=== PATIENT | female | born 1945 | race Caucasian/White ===

== ENCOUNTER 2022-01-13 07:38 | Outpatient (CLI) | payer MEDICARE, OTHER, SELFPAY ==
--- NOTE | 2022-01-13 08:00 | CRLHL7_ITS ---
For Patients: As a result of the Century Cures Act, medical imaging exams and procedure reports are released immediately into your electronic medical record. You may view this report before your referring provider. If you have questions, please contact your health care provider. INDICATION: Lymphadenopathy TECHNIQUE: CT of the neck soft tissues performed with IV contrast. Contrast: 69 cc Isovue 370. COMPARISON: None available at this institution. FINDINGS: There is an enlarged lymph node within the left level 5 measuring up to 0.9 cm in short axis diameter (series 3, image 47). There is an additional prominent lymph node identified just inferior to this. Additionally there is an abnormal rounded appearing lymph node right level 5 which measures up to 0.6 cm in short axis diameter (series 3, image 43). The nasopharynx, oropharynx and hypopharynx appear unremarkable. The supraglottic, glottic and infraglottic spaces are preserved. Portions of the oral cavity are obscured by dental amalgam artifact. No discrete hyperenhancing lesion identified. The parotid and submandibular glands appear unremarkable. Subcentimeter right thyroid nodule. Scattered atherosclerotic disease. The visualized intracranial components appear grossly intact. Visualized orbits and contents appear unremarkable. Mild paranasal sinus mucosal disease. Lung apices are clear. Mild spondylosis of the cervical spine. IMPRESSION: 1. Suspicious-appearing enlarged left level 5 lymph node. Additional suspicious right level 5 lymph node identified. Further evaluation with ultrasound assessment and tissue sampling is recommended. 2. No discrete hyperenhancing lesion identified within the neck mucosal spaces to suggest a site for primary malignancy. Please note that all CT scans at this facility use dose modulation, iterative reconstruction, and/or weight-based dosing when appropriate to reduce radiation dose to as low as reasonably achievable. Dictated by Andrew Saxena MD @ 01/14/2022 8:57:30 AM (Electronically Signed)
[2022-01-13 08:11] LABS: Creatinine* 0.6 mg/dL (0.5-1.5); Estimated Glomerular Filt Rate 93 ml/min
== END 2022-01-13 07:39 | disposition home or self-care (01) ==
LOC: CT 07:40
PROVIDERS: PCP Family Medicine; Visit Provider Family Medicine
DX: R59.1 Generalized enlarged lymph nodes (principal); C44.40 Unspecified malignant neoplasm of skin of scalp and neck
CPT/HCPCS: 36415; 70491; 82565; 87070; 87205; Q9967

== ENCOUNTER 2022-01-17 10:21 | Emergency (ER) | payer MEDICARE, OTHER, SELFPAY ==
[2022-01-17 10:56] VITALS: BP 126/77; PULSE 88; RESP 18; TEMP 36.6; O2SAT 98; BMI 23.5
--- NOTE | 2022-01-17 11:59 | ED.GENADULT ---
HPI - General Adult General Time Seen by Provider: 12:00 Date Seen: 01/17/22 Chief complaint: Weakness Stated complaint: High BP, tight/weak right leg, tingling in limbs Time Seen by Provider: 01/17/22 11:55 Source: patient and RN notes reviewed Mode of arrival: ambulatory Limitations: no limitations History of Present Illness HPI narrative: Patient is a 76-year-old female coming into the ER with concern of right medial leg pain, elevated blood pressure and pulse overnight. She also had reflux last night and states she felt like there is a lump in her throat. 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 She states the steam box tender put her on Keflex thinking there might be a overwhelming infection as all of her lymph nodes are swollen. She had a biopsy last week of a lymph node of her left neck. She had a head neck CT per report done recently, I think she may have said last week. She is not short of breath at this time, no palpitations. She actually had fallen asleep and was napping when I came into the room. She states she only got about 3 hours of sleep last night, does admit she thinks some of that was anxiety. No abdominal pain now. She admits she was concerned maybe about a blood clot in the leg. Her discomfort involves all of her lymph nodes feeling swollen per report. She states her liver enzymes were maybe mildly up. She states she had blood work last week. Related Data Home Medications Medication Instructions Recorded Confirmed rosuvastatin 10 mg tablet 10 mg PO QDAY 12/20/21 01/17/22 cholecalciferol (vitamin D3) 25 1,000 unit PO DAILY 12/22/21 01/17/22 mcg (1,000 unit) tablet coenzyme Q10 100 mg capsule 100 mg PO DAILY 12/22/21 01/17/22 cyanocobalamin (vitamin B-12) 1,000 mcg PO DAILY 12/22/21 01/17/22 1,000 mcg tablet nystatin 100,000 unit/gram topical 1 topical .2-3X/Day 12/22/21 01/13/22 cream Previous Rx's Medication Instructions Recorded cephalexin 500 mg capsule 500 mg PO BID #20 caps 01/13/22 Allergies Allergy/AdvReac Type Severity Reaction Status Date / Time Penicillins Allergy Unknown Verified 01/17/22 11:05 Sulfa (Sulfonamide Allergy Unknown Verified 01/17/22 11:05 Antibiotics) [facility] Medical History (Updated 01/17/22 @ 15:04 by Arlette Santiago MD) History of vitamin D deficiency Infection Microscopic colitis (2018) Nonalcoholic fatty liver disease (2019) Surgical History (Updated 12/21/21 @ 13:03 by Stephanie Ly MD) History of colonoscopy (01/18/18) History of dental surgery (2017) History of hysterectomy (2016) History of knee surgery (2018) History of tonsillectomy (1967) Family History (Updated 12/21/21 @ 13:04 by Stephanie Ly MD) Paternal Grandmother Heart disease Diabetes Sister Multiple sclerosis Alzheimers disease Mother Alzheimers disease Maternal Grandmother Alzheimers disease Family/Other Lung cancer FH: testicular cancer Social History (Updated 12/21/21 @ 13:04 by Stephanie Ly MD) Narrative: , retired, 3 kids, nonsmoker does not drink alcohol, exercises 5-6 time per week, 30 minutes Smoking Status: Never smoker Exam Const: Vital Signs, click to edit/add: Vital Signs - 24 hr 01/17/22 10:56 Temperature 97.9 F Pulse Rate [Right Pulse Oximeter] 88 Respiratory Rate 18 Blood Pressure [Ri ght Upper Arm] 126/77 Pulse Oximetry 98 Oxygen Delivery Me thod Room Air Documenting provider has reviewed patient's vital signs: yes Common normals: no apparent distress, average body habitus, oriented x3, no limitations, healthy appearing, alert and well nourished General appearance: cooperative, comfortable, well kempt and well developed HENMT: Common normals: normocephalic, head/scalp atraumatic (But has a larger ulcerated non bleeding lesion on the top of her scalp), external nose normal, nasal mucous membranes and turbinates normal, moist oral mucous membranes, oropharynx normal, dentition normal and gingiva normal Head and scalp: normocephalic and atraumatic (But has a larger ulcerated non bleeding lesion on the top of her scalp) Nose: external nose normal and nasal mucous membranes and turbinates normal Eye: Common normals: PERRL, EOMs intact bilaterally, conjunctivae normal and no scleral icterus Conjunctiva: conjunctiva(e) normal Pupil: PERRL Neck & C-Spine: Common normals: full ROM, supple, no meningeal signs, no JVD and thyroid normal Thyroid: thyroid normal Other: Incision at the base of the left neck with 2 stitches, well healing, no concern of infection. Do feel cervical lymph node on the other side that is mobile while, small, nontender. Lymph: Other: Can palpate groin lymph nodes bilaterally. Chest: Common normals: inspection of chest normal and palpation of chest normal Resp: Common normals: normal respiratory effort, no retractions, no use of accessory muscles and clear to auscultation bilaterally Auscultation: clear to auscultation bilaterally Cardio: Common normals: no JVD, regular rate, regular rhythm, S1 normal heart sound, S2 normal heart sound, no gallops, no clicks and no murmurs Rate: regular rate Rhythm: regular rhythm Heart sounds: S1 normal and S2 normal GI: Common normals: Normal to inspection, nondistended, normoactive bowel sounds present, soft to palpation, non-tender, no hepatosplenomegaly and no masses Palpation: soft and no hepatosplenomegaly Extremity: Other: No lower extremity edema noted. She complains of some discomfort in the right medial upper thigh without any palpable abnormality. She states it just feels mckeon to her. Neuro: Common normals: oriented x3 Sensorium/orientation: alert Meningeal signs: no meningeal signs Speech: speech normal Gait (neuro): normal gait Psych: Appearance: well kempt Course Course Hospital Course: Will check full complement of labs. Am ordering a Doppler of her right lower extremity. She understands that she may need imaging of her chest to rule out thromboembolic disease. Also consider infectious, cardiac issues with this patient as well. Right now she is hemodynamically stable and comfortable. Reevaluation(s) Reevaluation #1: Reviewed with patient her normal lab workup. Did review that her AST ALT are just very slightly mildly elevated and is not something that I would be overtly concerned about at this point. I do think she can take some low-dose Tylenol should she need it. I was able to give her her ultrasound report from the posterior neck and that looks like it is an enlarged lymph node. The ultrasound from her leg is not showing any DVT and with the normal D-dimer, do not think we need to pursue further imaging. She will need to continue her workup outpatient, she tells me she is scheduled to go to [facility] on of this week. Time: 15:01 Vital Signs Vital signs: Initial Vital Signs Temperature 97.9 F 01/17/22 10:56 Temperature Source Temporal Artery Scan 01/17/22 10:56 Pulse Rate 88 01/17/22 10:56 Respiratory Rate 18 01/17/22 10:56 Blood Pressure 126/77 01/17/22 10:56 Blood Pressure Mean 93 01/17/22 10:56 Blood Pressure Position Sitting 01/17/22 10:56 Pulse Oximetry 98 01/17/22 10:56 Oxygen Delivery Method 01/17/22 10:56 Vital Signs Temperature 97.9 F 01/17/22 10:56 Pulse Rate 88 01/17/22 10:56 Respiratory Rate 18 01/17/22 10:56 Blood Pressure 126/77 01/17/22 10:56 Pulse Oximetry 98 01/17/22 10:56 Oxygen Delivery Method 01/17/22 10:56 Temperature 97.9 F 01/17/22 10:56 Pulse Rate 88 01/17/22 10:56 Respiratory Rate 18 01/17/22 10:56 Blood Pressure 126/77 01/17/22 10:56 Pulse Oximetry 98 01/17/22 10:56 Oxygen Delivery Method 01/17/22 10:56 Medical Decision Making Lab Data Lab results reviewed: Yes I reviewed the patient's lab results Labs: Lab Results 01/17/22 01/17/22 01/17/22 Range/Units 12:30 12:30 12:30 WBC 5.93 (4.50-11.00) K/uL RBC 4.36 (4.00-5.20) m/uL Hgb 12.9 (12.0-16.0) gm/dL Hct 39.0 (33.0-51.0) % MCV 89 (80-100) fL MCH 30 (26-34) pg MCHC 33 (32-36) gm/dL RDW Coeff of Marly 11.9 (11.5-15.5) % Plt Count 266 (140-440) K/uL Neut % (Auto) 64.8 (42.0-72.0) % Lymph % (Auto) 25.8 (20-44) % [place] % (Auto) 7.1 (0.0-11.0) % Eos % (Auto) 2.0 (0.0-7.0) % Baso % (Auto) 0.3 (0.0-3.0) % Neut # (Auto) 3.84 (1.7-7.0) K/uL Lymph # (Auto) 1.53 (0.90-2.90) K/uL [place] # (Auto) 0.40 (0.00-0.90) K/UL Eos # (Auto) 0.12 (0.00-0.50) K/uL Baso # (Auto) 0.02 (0.00-0.30) K/uL Abs Immat Gran (auto) 0.00 (0.00-0.30) K/uL Imm/Tot Granulo (auto) 0.0 % D-Dimer Quant (PE/DVT) 0.27 (0.00-0.50) ug/ml Sodium 138 (135-149) mmol/L Potassium 4.4 (3.6-5.1) mmol/L Chloride 103 (96-114) mmol/L Carbon Dioxide 26 (20-32) mmol/L BUN 14 (7-30) mg/dL Creatinine 0.5 (0.5-1.5) mg/dL Estimated Creat Clear 41.33 Estimated GFR 97 ml/min Glucose 103 (60-115) mg/dL Lactate (0.5-1.9) mmol/L Calcium 9.4 (8.4-10.6) mg/dL Total Bilirubin 0.4 (0.1-1.5) mg/dL AST 43 H (12-35) U/L ALT 38 H (4-35) U/L Alkaline Phosphatase 109 (40-150) U/L C-Reactive Protein < 0.5 L (0.5-1.0) mg/dL NT-Pro-B Natriuret Pep 44 (0-450) PG/mL Total Protein 7.4 (6.0-8.3) g/dL Albumin 4.5 (3.3-5.0) g/dL POC Troponin I (0.01-0.04) ng/ml 01/17/22 01/17/22 Range/Units 12:30 12:30 WBC (4.50-11.00) K/uL RBC (4.00-5.20) m/uL Hgb (12.0-16.0) gm/dL Hct (33.0-51.0) % MCV (80-100) fL MCH (26-34) pg MCHC (32-36) gm/dL RDW Coeff of Marly (11.5-15.5) % Plt Count (140-440) K/uL Neut % (Auto) (42.0-72.0) % Lymph % (Auto) (20-44) % [place] % (Auto) (0.0-11.0) % Eos % (Auto) (0.0-7.0) % Baso % (Auto) (0.0-3.0) % Neut # (Auto) (1.7-7.0) K/uL Lymph # (Auto) (0.90-2.90) K/uL [place] # (Auto) (0.00-0.90) K/UL Eos # (Auto) (0.00-0.50) K/uL Baso # (Auto) (0.00-0.30) K/uL Abs Immat Gran (auto) (0.00-0.30) K/uL Imm/Tot Granulo (auto) % D-Dimer Quant (PE/DVT) (0.00-0.50) ug/ml Sodium (135-149) mmol/L Potassium (3.6-5.1) mmol/L Chloride (96-114) mmol/L Carbon Dioxide (20-32) mmol/L BUN (7-30) mg/dL Creatinine (0.5-1.5) mg/dL Estimated Creat Clear Estimated GFR ml/min Glucose (60-115) mg/dL Lactate 1.4 (0.5-1.9) mmol/L Calcium (8.4-10.6) mg/dL Total Bilirubin (0.1-1.5) mg/dL AST (12-35) U/L ALT (4-35) U/L Alkaline Phosphatase (40-150) U/L C-Reactive Protein (0.5-1.0) mg/dL NT-Pro-B Natriuret Pep (0-450) PG/mL Total Protein (6.0-8.3) g/dL Albumin (3.3-5.0) g/dL POC Troponin I 0.00 L (0.01-0.04) ng/ml ECG Data Attestation: I personally reviewed and interpreted this ECG as follows: (Sinus rhythm, right bundle branch block. 60 beats per minute. QT corrected 450 milliseconds.) Critical Care Time Critical Care Time Critical Care Time: No Discharge Plan Discharge Clinical Impression: Right thigh pain, Acid reflux Condition: Stable Instructions: GERD (Gastroesophageal Reflux Disease) (ED) Additional Instructions: Follow handout for reflux disease, try dietary management, lifestyle management. If this is not adequate, your primary care provider can dispense medications specifically to treat this like omeprazole. You certainly can try [id number] omeprazole. There is no evidence of a blood clot in your leg today. If you are noting increasing leg pain, swelling, development of new or concerning symptoms elsewhere in your body, please seek re-evaluation. Keep your appointment at [facility] this week for your squamous cell carcinoma of your scalp. Otherwise, reschedule a clinic appointment with your primary care provider for within the next 1-2 weeks. Activity Level: Activity as Tolerated Prescriptions: No Action coenzyme Q10 100 mg capsule 100 mg PO DAILY nystatin 100,000 unit/gram cream 1 topical .2-3X/Day cyanocobalamin (vitamin B-12) 1,000 mcg tablet 1,000 mcg PO DAILY cholecalciferol (vitamin D3) 25 mcg (1,000 unit) tablet 1,000 unit PO DAILY rosuvastatin 10 mg tablet 10 mg PO QDAY cephalexin 500 mg capsule 500 mg PO BID Qty: 20 0RF Follow Up/Referrals: Stephanie Ly MD [Primary Care Provider] - Stand Alone [facility] Inst[facility]
[2022-01-17 12:17] VITALS: O2SAT 97
--- NOTE | 2022-01-17 12:40 | CRLHL7_ITS ---
For Patients: As a result of the Century Cures Act, medical imaging exams and procedure reports are released immediately into your electronic medical record. You may view this report before your referring provider. If you have questions, please contact your health care provider. INDICATION: Inner thigh swelling. TECHNIQUE: Ultrasound venous duplex lower right extremity. Compression venous exam was performed using abreu-scale, color Doppler, and spectral Doppler analysis. COMPARISON: None. FINDINGS: Deep veins: Sonographic imaging demonstrates the right common femoral, deep femoral, superficial femoral, popliteal, posterior tibial and the contralateral left common femoral veins to be fully compressible with normal color Doppler blood flow. Superficial veins: Greater saphenous vein is fully compressible. Soft tissues: No popliteal cyst. IMPRESSION: Normal right lower extremity venous ultrasound, no sign of deep venous thrombosis. Dictated by Duane Richard MD @ 01/17/2022 2:00:37 PM (Electronically Signed)
[2022-01-17 12:47] LABS: Lactate* 1.4 mmol/L (0.5-1.9)
[2022-01-17 12:50] LABS: Basophils Absolute Auto 0.02 K/uL (0.00-0.30); Basophils Percent Auto 0.3 % (0.0-3.0); Eosinophils Absolute Auto 0.12 K/uL (0.00-0.50); Hemoglobin* 12.9 gm/dL (12.0-16.0); Lymphocytes Absolute Auto 1.53 K/uL (0.90-2.90); Lymphocytes Percent Auto 25.8 % (20-44); Mean Corpuscular HGB Conc 33 gm/dL (32-36); Mean Corpuscular Hemoglobin 30 pg (26-34); Mean Corpuscular Volume 89 fL (80-100); Monocytes Percent Auto 7.1 % (0.0-11.0); Neutrophils Absolute Auto 3.84 K/uL (1.7-7.0); Neutrophils Percent Auto 64.8 % (42.0-72.0); Platelet Count* 266 K/uL (140-440); RDW Coefficient of Variation % 11.9 % (11.5-15.5); Red Blood Count 4.36 m/uL (4.00-5.20); White Blood Count* 5.93 K/uL (4.50-11.00)
[2022-01-17 12:55] LABS: Slide Review Reflex No
[2022-01-17 13:10] LABS: D Dimer Quantitative* 0.27 ug/ml (0.00-0.50)
[2022-01-17 13:21] LABS: Albumin* 4.5 g/dL (3.3-5.0); Chloride* 103 mmol/L (96-114); Sodium* 138 mmol/L (135-149)
[2022-01-17 13:22] LABS: Potassium* 4.4 mmol/L (3.6-5.1)
[2022-01-17 13:24] LABS: Alkaline Phosphatase* 109 U/L (40-150); Aspartate Amino Transferase* 43 U/L (12-35); Bilirubin Total* 0.4 mg/dL (0.1-1.5); Carbon Dioxide* 26 mmol/L (20-32); Creatinine* 0.5 mg/dL (0.5-1.5); Est. Creatinine Clearance* 41.33; Estimated Glomerular Filt Rate 97 ml/min; Total Protein* 7.4 g/dL (6.0-8.3)
[2022-01-17 13:25] LABS: Alanine Aminotransferase* 38 U/L (4-35); Blood Urea Nitrogen* 14 mg/dL (7-30); Calcium* 9.4 mg/dL (8.4-10.6); Glucose* 103 mg/dL (60-115)
[2022-01-17 13:28] LABS: C Reactive Protein* < 0.5 mg/dL (0.5-1.0)
[2022-01-17 13:33] LABS: NT Pro B Type NatriureticPept* 44 PG/mL (0-450)
[2022-01-17 13:55] VITALS: BP 116/57; PULSE 70; RESP 18; O2SAT 94
== END 2022-01-17 15:13 | disposition home or self-care (01) ==
PROVIDERS: Emergency Provider Family Medicine; PCP Family Medicine
DX: M79.651 Pain in right thigh (principal); K21.9 Gastro-esophageal reflux disease without esophagitis
CPT/HCPCS: 36415; 76536; 80053; 83605; 83880; 85025; 85379; 86140; 93005; 93971; 94761; 99284

== ENCOUNTER 2022-01-21 10:23 | Outpatient (CLI) | payer MEDICARE, OTHER, SELFPAY ==
--- OUTSIDE RECORDS SUMMARY | 2022-01-21 10:26 | XMS_ITS | Encounter Summary ---
:1945 Author Organization [facility] Address [address] [place] [id number] Care Team Providers Name Role Phone Unavailable Primary Care Provider Unavailable Encounter Details Date Type Department Care Team Description 01/21/2022 Clinical Communication Department of [facility] in [place] [place], [place] [address] [place] [address] [place] [phone] Social History Tobacco Use Types Packs/Day Years Used Date Smoking Tobacco: Never Smokeless Tobacco: Never Sex Assigned at Date Recorded Not on file documented as of this encounter Plan of Treatment Upcoming Encounters Date Type Specialty Care Team Description 02/10/2022 Appointment Radiation Oncology Laurel Hooks M.D., Ph.D. [address] [place] [address] [phone] (Dany lovell) 02/10/2022 Appointment Radiology Ashley Arango M.D. [address] [place] [address] [phone] (Dany lovell) documented as of this encounter Visit Diagnoses Not on filedocumented in this encounter
--- OUTSIDE RECORDS SUMMARY | 2022-01-21 10:26 | XMS_ITS | Encounter Summary ---
:1945 Author Organization [facility] Address [address] [place] [id number] Care Team Providers Name Role Phone Unavailable Primary Care Provider Unavailable Reason for Visit Reason Comments Triage Encounter Details Date Type Department Care Team Description 01/20/2022 Clinical Communication Department of Oncology Farnaz Reynolds Triage in [facility] juan Bull APRN, C.N.P. [address] [place] [address] [place] [phone] Social History Tobacco Use Types Packs/Day Years Used Date Smoking Tobacco: Never Smokeless Tobacco: Never Sex Assigned at Date Recorded Not on file documented as of this encounter Plan of Treatment Upcoming Encounters Date Type Specialty Care Team Description 02/10/2022 Appointment Radiation Oncology Laurel Hooks M.D., Ph.D. [address] [place] [address] [phone] (Dany lovell) 02/10/2022 Appointment Radiology Ashley Arango M.D. [address] [place] [address] [phone] (Dany lovell) documented as of this encounter Visit Diagnoses Not on filedocumented in this encounter
--- OUTSIDE RECORDS SUMMARY | 2022-01-21 10:26 | XMS_ITS | Encounter Summary ---
:1945 Author Organization [facility] Address [address] [place] [address] Care Team Providers Name Role Phone Unavailable Primary Care Provider Unavailable Reason for Referral Outpatient (Routine) - Authorized Specialty Diagnoses / Procedures Referred By Contact Refer red To Contact Medical Oncology / Diagnoses Squamous Cell Carcinoma Of Skin [facility] Scal[facility] [address] [place] [phone] Referral ID Status Reason Start Date Expiration Date Visits V isits Requested Authorized [id number] Authorized 01/20/2022 01/20/2023 1 1 utpatient (Routine) - Authorized Specialty Diagnoses / Procedures Referred By Contact Refer red To Contact Radiation Oncology Diagnoses Squamous Cell Carcinoma Of Skin Of Scalp And Neck Ashley Arango M.D. [facility] [address] [place] [phone] Referral ID Status Reason Start Date Expiration Date Visits V isits Requested Authorized [id number] Authorized 01/20/2022 01/20/2023 1 1 utpatient (Routine) - Authorized Specialty Diagnoses / Procedures Referred By Contact Refer red To Contact Otorhinolaryngology Diagnoses Squamous Cell Carcinoma Of Skin Of Scalp And Neck Ashley Arango M.D. [address] [phone] Referral ID Status Reason Start Date Expiration Date Visits V isits Requested Authorized [id number] Authorized 01/20/2022 01/20/2023 1 1 RVISOR FRAME SAMPLE AND PATTERN MRI/CAT/PET Scan (Routine) - Authorized Specialty Diagnoses / Procedures Referred By Contact Refer red To Contact Diagnoses Squamous Cell Carcinoma Of Skin Of Scalp And Neck Ashley Arango M.D. [place] Procedures PET CT Skull to Thigh FDG [address] [place] [address] Referral ID Status Reason Start Date Expiration Date Visits V isits Requested Authorized [id number] Authorized 01/20/2022 01/20/2023 1 1 RVISOR FRAME SAMPLE AND PATTERN Reason for Visit Appointment Request (Routine) - Closed Specialty Diagnoses / Procedures Referred By Contact Refer red To Contact Dermatology Diagnoses [place] Referral ID Status Reason Start Date Expiration Date Visits Requ ested Visits Authorized [id number] Closed 01/17/2022 01/17/2023 1 1 Encounter Details Date Type Department Care Team Description 01/20/2022 Comprehensive Visit Department of Ashley Arango us Cell Carcinoma Of Skin Of Scalp And Neck (Primary Dx); Dermatology eleazar Sears M.D. Dermatoheliosis; [place], [place] [address] [facility] Keratosis Seborrheic [address] [place] [phone] Social History Tobacco Use Types Packs/Day Years Used Date Smoking Tobacco: Never Smokeless Tobacco: Never Sex Assigned at Date Recorded Not on file documented as of this encounter Consult Notes Crispin Boggs M.D. - 01/20/2022 8:30 AM CST CORRESPONDENCE: Correspondence to: Ashley Arango M.D. SUBJECTIVE REFERRAL SOURCE No ref. 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 Veronica Guevara is a 76 y.o. 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 The patient is new to [facility]. She has followed with Dr. Banuelos in [place]. She shares that she first noted this lesion in her scalp in July of this year and it rapidly grew since then. She endorses significant pain and drainage from the lesion, as well as associated swelling in her neck. She underwent biopsy of this lesion about 2 weeks ago and reports it revealed a squamous cell carcinoma. Then last , due to appreciable lymphadenopathy, she underwent lymph node biopsy from the left neck. She reports that she just was called by Dr. Banuelos today and told this was positive for squamouscell carcinoma. She is wondering about treatments including surgery and immunotherapy here at [facility]. Of note the patient has a history of lichen planus pigmentosus, GERD and microscopic colitis. She denies any other medical conditions and reports she is otherwise very healthy. She has no history of immunosuppression. She denies any other prior history of cancer including no prior history of skin cancers. She does note a history of significant sun exposure throughout her life including blistering sunburns. She has no family history of skin cancer. In addition to pain and drainage from the scalp lesion, she endorses swelling in her neck on both the left and right side. She denies any swelling elsewhere that she has noticed. She denies systemic symptoms including no weight loss, night sweats, fevers, dyspnea, cardiovascular or pulmonary symptoms. OBJECTIVE PHYSICAL EXAMINATION General: Awake, alert, in no acute distress, with appropriate affect. Lymph: There is palpable cervical lymphadenopathy appreciated on the right as well as left; there isno palpable axillary, inguinal, or popliteal lymphadenopathy appreciated on exam Skin: Examination of the scalp, face, neck, chest, abdomen, back, bilateral upper extremities, bilateral lower extremities, and buttocks, sparing the genitalia, performed and revealed: Pertinent findings: Involving the vertex scalp is a 4 cm x 3 cm ulcerated, crusted nodule Background findings: Addison II skin type. Moderate dermatoheliosis in sun exposed areas. On sun-exposed skin, there are several discrete, evenly-pigmented wall macules, consistent with solarlentigines. Scattered waxy, [id number], brown-minor macules, papules and plaques, consistent with seborrheic keratoses. No other concerning lesions in the areas examined. 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 She has a large ulcerated scalp nodule on examination today. We discussed this in detail with the patient today. We discussed with our dermatologic surgery colleagues and the following plan was made: Plan: - We will request outside pathology slides including both the scalp lesion and the lymph node biopsyto be examined by our pathologists at [facility] - We will obtain full body PET CT to assess for metastatic burden. She reports that she had a CT scan of the head only at outside institution. - Given the palpable right sided lymphadenopathy which has not been investigated, we will obtain a diagnostic ultrasound of the right neck and order FNA. If there is node of concern on ultrasound plan to request FNA - We will send the patient to be evaluated by our ENT colleagues for potential wide local excision and lymph node dissection. Pending ENT colleagues input, we could alternatively send patient to Derm Surgery colleagues for Mohs - Consults with Medical Oncology for consideration of immunotherapy - Consult with Radiation Oncology for consideration of radiation # Dermatoheliosis Sun protection, sun avoidance, the warning signs and symptoms of skin cancer, and the proper use of sunscreens were reviewed with the patient. Recommend daily use of SPF 30+ broad spectrum sunscreen. # Seborrheic keratoses The benign nature of the skin lesion(s) was discussed with the patient. No treatment is required. I recommend continued observation. Should symptoms or changes develop related to this condition, I would recommend a return visit for reassessment. The patient expresses understanding and is in agreement with the above plan. All questions were answered to the best of my ability. It was a pleasure to care for Mrs. Veronica Guevara today. PATIENT EDUCATION Ready to learn. No apparent learning barriers were identified. Learning preferences include listening. Explained diagnosis and treatment plan; patient/guardian of patient expressed understanding of thecontent. Supervised by: Azar Peters M.D. RVISOR FRAME SAMPLE AND PATTERN Associated attestation - Ashley Arango M.D. - 01/20/2022 3:38 PM SUPERVISOR FRAME SAMPLE AND PATTERN I saw and evaluated the patient, participating in the alexander portions of the service. I reviewed the resident/fellow???s note. I agree with the resident/fellow???s findings and plan. Briefly, patient comes for new diagnosis of metastatic SCC. SCC on scalp biopsied a few weeks ago, no treatment rendered as of now. Patient was complaining of swollen glands, FNA from the left neck reportedly demonstrtated SCC. On exam today patient has large 4x3cm ulcerated lesion on the vertex scalp and bilateral cervical tender andeopathy. We discussed her case with Dr. Garg and have recommended the following: - review outside pathology (scalp and left lymph node) - PETCT - Referrals to ENT for consideration of surgical excision and neck dissection, medical oncology for systemic options and radiation oncology for consideration of radiation therapy - US of right neck plus FNA is there is a mass (L neck biopsy performed at outside institution) documented in this encounter Plan of Treatment Upcoming Encounters Date Type Specialty Care Team Description 02/10/2022 Appointment Radiation Oncology Laurel Hooks M.D., Ph.D. [address] [place] [phone] (Wo rk) 02/10/2022 Appointment Radiology Ashley Arango M.D. [address] [place] [phone] (Wo rk) Scheduled Orders Name Type Priority Associated Order Schedule Diagnoses PET CT Skull to Imaging RAD - Routine Squamous Cell Expected: Thigh FDG (most inpatients Carcinoma Of Skin 2021 and all Of Scalp And Neck (Approxima te), outpatients) Expires: 04/22/2023 Cytology Fine Pathology and Routine Squamous Cell Expected: Needle Aspiration Cytology Carcinoma Of Skin 01/20 (including core Of Scalp And Neck (Approx imate), biopsies) Expires: 04/22/2023 Pathology Review Pathology and Routine Squamous Cell Expected: of Outside Cytology Carcinoma Of Skin 01/20/2022 , Material Of Scalp And Neck Expires: 02/10/2022 Scheduled Referrals Name Type Priority Associated Order Schedule Diagnoses Otorhinolaryngology - Head Outpatient Routine Squamous Cell Expected: and neck surgery consult Referral Carcinoma Of Ski n 01/20/2022 (clinic) Of Scalp And Neck (Approxima te), Expires: 04/22/2023 Radiation Oncology - Outpatient Routine Squamous Cell Expect ed: Sarcoma consult (clinic) Referral Carcinoma Of Ski n 01/20/2022 Of Scalp And Neck (Approxima te), Expires: 04/22/2023 Oncology - Medical, skin Outpatient Routine Squamous Cell Ex pected: cancer (melanoma and Referral Carcinoma Of Skin non-melanoma skin cancer, Of Scalp And Ne ck (Approximate), excluding cutaneous Expires: lymphoma) consult (clinic) 0 04/22/2023 documented as of this encounter Visit Diagnoses Diagnosis Squamous Cell Carcinoma Of Skin Of Scalp And Neck - Primary Dermatoheliosis Keratosis Seborrheic documented in this encounter
--- OUTSIDE RECORDS SUMMARY | 2022-01-21 10:26 | XMS_ITS | Clinical Summary ---
:1945 Author Organization [facility] Address [address] [place] [address] Care Team Providers Name Role Phone Unavailable Primary Care Provider Unavailable Source Comments Patient records contain information from all sites at [facility]. For routine questions regarding patient records, call [phone] during business hours, M-F 8:00 AM - 5:00 PM Central Time. Record requests for emergency care only can be directed to [phone] at any time.[facility] Allergies Active Allergy Reactions Severity Noted Date Comments Penicillins Other (see comments) 01/19/2022 Pollen Extracts Itching 01/19/2022 Sulfa (Sulfonamide Antibiotics) Other (see comments) 1 03/21/2021 Medications Medication Sig Dispensed Refills Start Date End Date Status cephalexin (KEFLEX) 500 Take 500 mg by 0 Active mg capsule mouth every 6 (six) hours. rosuvastatin (CRESTOR) Take 10 mg by 0 Active 10 mg tablet mouth daily. acetaminophen (TYLENOL) Take 500 mg by 0 Active 500 mg tablet mouth every 6 (six) hours as needed for pain. Encounters Date Type Specialty Care Team Description 01/21/2022 Clinical Oncology Nicolás, Wendy Parkinson P.A.-C., M.S. 01/20/2022 Comprehensive Visit Dermatology Ashley Arango s Cell Carcinoma Of Skin Of Scalp And Neck (Primary Dx); Belén SearsDNey Dermatoheliosis ; Keratosis Sebor rheic 01/20/2022 Orders Only Oncology Nicolás, Squamous Cell Blanche Parkinson, Carcinoma Of Sk in P.Alvarez., M.S. Of Scalp And N melody (Primary Dx) 01/20/2022 Clinical Oncology Lul, Triage Communication Farnaz Bull APRN, C.N.P. 01/19/2022 Clinical Admitting/Central Pre-visit Intake Communication Scheduling from Last 3 Months Social History Tobacco Use Types Packs/Day Years Used Date Smoking Tobacco: Never Smokeless Tobacco: Never Tobacco Cessation: Counseling Given: Not Answered Sex Assigned at Date Recorded Not on file Plan of Treatment Upcoming Encounters Date Type Specialty Care Team Description 02/10/2022 Appointment Radiation Oncology Laurel Hooks M.D., Ph.D. [address] [place] [phone] (Wo rk) 02/10/2022 Appointment Radiology Ashley Arango M.D. [address] [place], [place] [phone] (Wo rk) Health Maintenance Due Date Last Done Comments Hepatitis C Screening 1945 Zoster Vaccines (2 of 3) 03/31/2012 02/04/2012 Depression Screening (Annual 03/06/2021 PHQ-2) Fall Risk Screen (Annual) 03/06/2021 COVID-19 Vaccine (5 - Booster for 08/13/2021 06/18/2021, , Moderna series) 05/02/2020, Additional history exists DTaP,Tdap,and Td Vaccines (2 - Td 12/21/2022 12/21/2012, or Tdap) Pneumococcal vaccine (65+ years) Completed 07/16/2014, Influenza Vaccine Completed 12/22/2021, 12/28/2020, 12/16/2019 Medical Devices Implanted Type Area Computed Tomography Scanner Operator Device Shelf Model / Identifier Expiration Serial / Date Lot Hardware E.G. Hardware e.g. Mouth Pins/Screws/Ro pins/screws/r ds ods Procedures Procedure Name Priority Date/Time Associated Diagnosis Comme nts OUTSIDE US Routine 01/17/2022 12:50 PM Results for this WORD PROCESSING MACHINE OPERATOR procedure are i n the results section. OUTSIDE US NEURO Routine 01/17/2022 10:15 AM Resu lts for this WORD PROCESSING MACHINE OPERATOR procedure are i n the results section. OUTSIDE CT NEURO Routine 01/13/2022 8:35 AM Resul ts for this WORD PROCESSING MACHINE OPERATOR procedure are i n the results section. from Last 3 Months Results US venous LE RT-Outside US (01/17/2022 12:50 PM WORD PROCESSING MACHINE OPERATOR) Specimen (Source) Anatomical Location Collection Method / Collectio n Time Received Time / Laterality Volume Narrative IIMS - 01/17/2022 5:07 PM WORD PROCESSING MACHINE OPERATOR This order has been created and auto-finalized to support the import of outside images. If available, original i nterpretation can be found on the Media Tab in Chart Review, in Document V iewer, or as an image in QREADS. If a re-interpretation or overread is re quired please follow defined workflow. ?? Provider Not In System IMG US PROCEDURES Performing Organization Address [facility] Code Phon e Number II IIMS NA US SOFT TISSUE HEAD NECK-Outside US Neuro (01/17/2022 10:15 AM WORD PROCESSING MACHINE OPERATOR) Specimen (Source) Anatomical Location Collection Method / Collectio n Time Received Time / Laterality Volume Narrative IIVA - 01/17/2022 5:08 PM WORD PROCESSING MACHINE OPERATOR This order has been created and auto-finalized to support the import of outside images. If available, original i nterpretation can be found on the Media Tab in Chart Review, in Document V iewer, or as an image in QREADS. If a re-interpretation or overread is re quired please follow defined workflow. ?? Provider Not In System IMG US PROCEDURES Performing Organization Address [facility] Code Phon e Number IIMS IIMS NA CT SOFT TISSUE NECK W CON-Outside CT Neuro (01/13/2022 8:35 AM WORD PROCESSING MACHINE OPERATOR) Specimen (Source) Anatomical Location Collection Method / Collectio n Time Received Time / Laterality Volume Narrative IIMS - 01/17/2022 5:09 PM WORD PROCESSING MACHINE OPERATOR This order has been created and auto-finalized to support the import of outside images. If available, original i nterpretation can be found on the Media Tab in Chart Review, in Document V iewer, or as an image in QREADS. If a re-interpretation or overread is re quired please follow defined workflow. ?? Provider Not In System IMG CT PROCEDURES Performing Organization Address City/[facility]/ZIP Code Phon e Number IIMS IIMS NA from Last 3 Months Insurance Payer Benefit Plan / Subscriber ID Effective Phone Address T ype Group Dates MEDICARE MEDICARE A AND [id number] 2010-Prese [address] Medicare [address] [place] [id number] [facility] [id number] 2018-Prese [phone] [address] Ind[address]ity [id number] [place] [address]
--- OUTSIDE RECORDS SUMMARY | 2022-01-21 10:26 | XMS_ITS | Encounter Summary ---
:1945 Author Organization [facility] Address [address] [place] [address] Care Team Providers Name Role Phone Unavailable Primary Care Provider Unavailable Reason for Visit Reason Comments Pre-visit Intake Encounter Details Date Type Department Care Team Description 01/19/2022 Clinical Communication Visit Review in Pr e-visit Intake [address] [id number] Social History Tobacco Use Types Packs/Day Years Used Date Smoking Tobacco: Never Smokeless Tobacco: Never Tobacco Cessation: Counseling Given: Not Answered Sex Assigned at Date Recorded Not on file documented as of this encounter Plan of Treatment Upcoming Encounters Date Type Specialty Care Team Description 02/10/2022 Appointment Radiation Oncology Laurel Hooks M.D., Ph.D. [address] [place] [phone] (Wo nas) 02/10/2022 Appointment Radiology Ashley Arango M.D. [address] [place] [phone] (Wo nas) documented as of this encounter Visit Diagnoses Not on filedocumented in this encounter
--- OUTSIDE RECORDS SUMMARY | 2022-01-21 10:26 | XMS_ITS | Encounter Summary ---
:1945 Author Organization [facility] Address [address] [place] [address] Care Team Providers Name Role Phone Unavailable Primary Care Provider Unavailable Encounter Details Date Type Department Care Team Description 01/20/2022 Orders Only Department of Oncology Blanche Monzon quamous Cell in [place], , P.A.-C., M.S. Carcinoma Of Skin Of [place] [address] [facility] Scalp And Neck [address] [place] [address] (Primary Dx) [place] [phone] Social History Tobacco Use Types Packs/Day Years Used Date Smoking Tobacco: Never Smokeless Tobacco: Never Sex Assigned at Date Recorded Not on file documented as of this encounter Plan of Treatment Upcoming Encounters Date Type Specialty Care Team Description 02/10/2022 Appointment Radiation Oncology Laurel Hooks M.D., Ph.D. [address] [place] [phone] (Dany lovell) 02/10/2022 Appointment Radiology Ashley Arango M.D. [address] [place] [phone] (Dany lovell) Scheduled Orders Name Type Priority Associated Diagnoses Order S chedule Comprehensive Metabolic Lab Routine Squamous Cell Car cinoma Expected: 01/20/2022 Panel Of Skin Of Scalp And (Approx imate), Neck Expires: 2023 CBC with Differential, Lab Routine Squamous Cell Carc inoma Expected: 01/20/2022 Blood Of Skin Of Scalp And (Approx imate), Neck Expires: 2023 documented as of this encounter Visit Diagnoses Diagnosis Squamous Cell Carcinoma Of Skin Of Scalp And Neck - Primary documented in this encounter
--- NOTE | 2022-01-21 11:00 | CRLHL7_ITS ---
For Patients: As a result of the Cures Act, medical imaging exams and procedure reports are released immediately into your electronic medical record. You may view this report before your referring provider. If you have questions, please contact your health care provider. Indication: SQUAMOUS CELL CARCINOMA OF SKIN Technique: Grayscale and color Doppler ultrasound of the right side of the neck performed. Comparison: CT 01/13/2022 Findings: Lymph node is present within the right side of the neck measuring 1.1 x 0.7 x 0.9 cm with normal internal vascularity. Impression: Nonenlarged right cervical lymph node corresponding to the recent CT. Dictated by Salas Kent MD @ 01/21/2022 11:38:54 AM (Electronically Signed)
== END 2022-01-21 10:24 | disposition home or self-care (01) ==
PROVIDERS: PCP Family Medicine; Visit Provider Dermatology Dermatopathology
DX: C44.42 Squamous cell carcinoma of skin of scalp and neck (principal); R59.0 Localized enlarged lymph nodes
CPT/HCPCS: 76536

== ENCOUNTER 2022-02-24 10:14 | Outpatient (REF) | payer MEDICARE, OTHER, SELFPAY ==
[2022-02-24 10:37] LABS: Hematocrit 34.9 % (33.0-51.0); Hemoglobin* 10.9 gm/dL (12.0-16.0); Mean Corpuscular HGB Conc 31 gm/dL (32-36); Mean Corpuscular Hemoglobin 29 pg (26-34); Mean Corpuscular Volume 93 fL (80-100); Platelet Count* 304 K/uL (140-440); Red Blood Count 3.77 m/uL (4.00-5.20); White Blood Count* 4.48 K/uL (4.50-11.00)
[2022-02-24 11:14] LABS: Slide Review Reflex No
== END 2022-02-24 10:15 | disposition home or self-care (01) ==
LOC: NPINS 10:14
PROVIDERS: PCP Family Medicine; Visit Provider Family Medicine
DX: C44.42 Squamous cell carcinoma of skin of scalp and neck (principal)
CPT/HCPCS: 36415; 85027

== ENCOUNTER 2022-07-20 10:00 | Outpatient (RCR) | payer MEDICARE, OTHER, SELFPAY | END 2022-11-17 23:59 | disposition home or self-care (01) | PROVIDERS: PCP Family Medicine; Visit Provider Physical Medicine & Rehabilitation | DX: M54.2 Cervicalgia (principal); Z51.89 Encounter for other specified aftercare | CPT/HCPCS: 97110; 97112; 97140; 97162 ==

== ENCOUNTER 2022-09-30 07:35 | Outpatient (CLI) | payer MEDICARE, OTHER, SELFPAY | END 2022-09-30 07:36 | disposition home or self-care (01) | LOC: NFLDREF 10-01 08:33 | PROVIDERS: PCP Family Medicine; Referring Provider Family Medicine; Visit Provider Family Medicine | DX: M81.0 Age-related osteoporosis without current pathological fracture (principal); K76.0 Fatty (change of) liver, not elsewhere classified; D64.9 Anemia, unspecified; E78.5 Hyperlipidemia, unspecified; G62.9 Polyneuropathy, unspecified | CPT/HCPCS: 80053; 80061; 82306; 82607 ==

== ENCOUNTER 2022-10-17 13:41 | Outpatient (CLI) | payer MEDICARE, OTHER, SELFPAY ==
--- NOTE | 2022-10-17 13:40 | CRLHL7_ITS ---
For Patients: As a result of the Century Cures Act, medical imaging exams and procedure reports are released immediately into your electronic medical record. You may view this report before your referring provider. If you have questions, please contact your health care provider. BILATERAL SCREENING MAMMOGRAM WITH COMPUTER-AIDED DETECTION AND TOMOSYNTHESIS TECHNIQUE: CC and MLO views were obtained. These mammographic images have been obtained using full-field digital technique. These mammographic images were interpreted with the benefit of computer-aided detection. Breast Tomosynthesis was used in this interpretation. COMPARISON FILM: 05/17/21, 11/13/19, 05/19/17. FINDINGS: There are scattered areas of fibroglandular density IMPRESSION: There is no radiographic evidence for malignancy. ASSESSMENT: BI-RADS Category 2: Benign RECOMMENDATION: Routine screening mammogram in 1 year. A lay language report of this examination will be provided to the patient. Salas Kent M.D. Diagnostic Radiologist [email or web address] ARCHANA/Dictated by: Salas Kent MD @ 10/20/2022 11:52:00 AM (Electronically Signed)
== END 2022-10-17 13:42 | disposition home or self-care (01) ==
LOC: MAMMO 13:42
PROVIDERS: PCP Family Medicine; Visit Provider Family Medicine
DX: Z12.31 Encounter for screening mammogram for malignant neoplasm of breast (principal)
CPT/HCPCS: 77063; 77067

== ENCOUNTER 2022-10-27 09:30 | Outpatient (RCR) | payer MEDICARE, OTHER, SELFPAY ==
--- NOTE | 2022-08-26 17:49 | OT.OPOE ---
OT Outpatient Ortho Eval OT Outpatient Ortho Eval* Start: 08/26/22 11:27 Freq: Status: Active Protocol: Document 08/26/22 11:27 AMB (Rec: 08/26/22 17:44 AMB [id number]) E-signed By Taya Garcia, OTR/L, CLT, BRAILLE TYPIST OT OP Ortho Eval Details Complexity Complexity Low Insurance Information Insurance Information Medicare B Outpatient History/Precautions Current Condition/Medical Diagnosis Referring Provider Dr Ly Treatment Diagnosis RUE CTS Date of Onset Chronic Medical Conditions Osteoporosis Other Conditions Active Problems (Updated 08/05 @ 09:45 by Stephanie Ly MD) Carpal tunnel syndrome of right wrist (Acute) G56.01 - Carpal tunnel syndrome, right upper limb ( ICD-10) Chronic hand pain (Acute) M79.643 - Pain in unspecified hand (ICD-10) G89.29 - Other chronic pain ( ICD-10) History of SCC (squamous cell carcinoma) of skin (Chronic ) Wide local excision scalp & bilateral neck dissection . Z85.828 - Personal history of other malignant neoplasm of skin (ICD-10) Aortic valve regurgitation ( Chronic 2004) I35.1 - Nonrheumatic aortic ( valve) insufficiency (ICD-10) Dry eye syndrome (Chronic) & Amalia's R. 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 Dr Banuelos 2021 L43.8 - Other lichen planus ( ICD-10) Osteoporosis (Chronic 10/26/20 ) 10/26/20 T-Scores: Lum -2.4, L Total Hip -2.2, L Fem Neck -2. 5. See scanned DXA report. M81.0 - Age-related osteoporosis without current pathological fracture (ICD-10) Lymphadenopathy of head and neck (Acute 12/2021) Node+ from SCC of scalp. Doing Radiation Therapy through [place]. R59.1 - Generalized enlarged lymph nodes (ICD-10) Memory problem (Chronic ~2021) Short term memory R41.3 - Other amnesia (ICD-10) Skin cancer of scalp (Acute ) squamous cell Spread to neck nodes. Doing Radiation Therapy through [place]. C44.40 - Unspecified malignant neoplasm of skin of scalp and neck (ICD-10) Medical History (Updated 08/05 @ 09:45 by Stephanie Ly MD) Skin cancer of scalp (07/2021) C44.40 - Unspecified malignant neoplasm of skin of scalp and neck (ICD-10) Lymphadenopathy of head and neck (12/2021) R59.1 - Generalized enlarged lymph nodes (ICD-10) Memory problem (~03/2021) R41.3 - Other amnesia (ICD-10) Osteoporosis (10/26/20) M81.0 - Age-related osteoporosis without current pathological fracture (ICD-10) Nonalcoholic fatty liver disease (2019) K76.0 - Fatty (change of) liver, not elsewhere classified (ICD-10) Microscopic colitis (2018) K52.839 - Microscopic colitis, unspecified (ICD-10) Lichen planus pigmentosus ( 2019) L43.8 - Other lichen planus ( ICD-10) Hyperlipidemia E78.5 - Hyperlipidemia, unspecified (ICD-10) History of vitamin D deficiency Z86.39 - Personal history of other endocrine, nutritional and metabolic disease (ICD-10) Hereditary and idiopathic peripheral neuropathy G60.9 - Hereditary and idiopathic neuropathy, unspecified (ICD-10) Gastroesophageal reflux disease (2012) K21.9 - Gastro-esophageal reflux disease without esophagitis (ICD-10) Dyslipidemia E78.5 - Hyperlipidemia, unspecified (ICD-10) Dry eye syndrome H04.129 - Dry eye syndrome of unspecified lacrimal gland ( ICD-10) Aortic valve regurgitation ( 2004) I35.1 - Nonrheumatic aortic ( valve) insufficiency (ICD-10) Surgical History (Updated 04/28 @ 09:32 by Stephanie Ly MD) History of SCC (squamous cell carcinoma) of skin (02/01/22) Z85.828 - Personal history of other malignant neoplasm of skin (ICD-10) History of phacoemulsification of cataract of both eyes with intraocular lens implantation (07/2021) Z98.41 - Cataract extraction status, right eye (ICD-10) Z98.42 - Cataract extraction status, left eye (ICD-10) Z96.1 - Presence of intraocular lens (ICD-10) History of tonsillectomy (1967 ) Z90.89 - Acquired absence of other organs (ICD-10) History of knee surgery (2018) Z98.890 - Other specified postprocedural states (ICD-10) History of hysterectomy (2017) Z90.710 - Acquired absence of both cervix and uterus (ICD-10 ) History of dental surgery ( 2017) Z92.89 - Personal history of other medical treatment (ICD- 10) History of colonoscopy () Z98.890 - Other specified postprocedural states (ICD-10) Medical/Functional History Medical History Reviewed Yes Prior Level of Function/Mobility Pt had full, pain-free use of her RUE, no weakness and no paresthesia. Pt is currently being treated for lymphedema in her neck as well, this is a result of having a bilateral neck dissection and wide local excision of the scalp and high doses of radiation due to squamous cell carcinoma of the scalp. Social History Employment Status Retired Hobbies Art/painting, coloring, writing, playing the piano Ortho Subjective Subjective Subjective Pt states she has had numbness and pain in her RUE for at least a month. Pt denies any traumatic episodes and states she doesn't really do repetitive things for long periods of time. She does have difficulty holding her paint brush while trying to paint art, she can't write or play piano for very long, typing can also exacerbate her sxs and driving increases her numbness right away. Pt wakes up frequently in the night, not sure if her hand wakes her but she does notice when she wakes up that her fingers are also numb. Pt is wearing a splint at night and all day. Pain Assessment Pain Present Pain Present Pain Reported Location RUE hand and wrist Description Burning,Radiating,Sharp, Shooting Intensity 3 Goniometric Comments Goniometric Comments Goniometric Comments 08/26/22 AROM of BUE is WNL throughout. Pt has had some issues with her shoulder recently but states it's gotten a lot better. Hand Pinch/Gymnastic Coach Strength Hand Right Gymnastic Coach Strength Position 1 (lbs) 35 Lateral Pinch Strength (lbs) 9 Three Point Pinch (lbs) 9 Left Gymnastic Coach Strength Position 1 (lbs) 46 Lateral Pinch Strength (lbs) 13 Three Point Pinch (lbs) 14 OT Objective Data Hand Hand Dominance Right Upper Extremity Special Tests Upper Extremity Special Tests Comments Comments 08/26/22 Pt demonstrates positive Durkan's, Tinnel's, and Phalen's on the RUE. OT Problems Problems Problems Decreased Strength,Decreased Range of Motion,Pain,Sensory Sensitivity,Gripping,Pinching Other Problems Writing,Opening Containers, Computer,Sleeping Patient Potential Good Assessment Assessment Assessment Pt is a very pleasant 77yo female presenting to OT today with complaints of numbness, pain, and weakness in her RUE. Provocative testing indicates likelihood of CTS. Due to paresthesia and weakness, pt has difficulty with opening containers, painting, washing dishes, typing, stirring / cooking, and driving as all of these things exacerbate pt's sxs. It should also be noted that pt is very ttp along the CMC joint line and often has pain in and around this joing, she also has what appears to be a ganglion cyst on the radial / volar wrist, these could be contributing to the compression of her median nn. Pt will benefit from skilled OT intervention to address RUE deficits and restore full, pain-free use of her RUE. Occupational Therapy Treatment Plan - OP Potential Rehabilitation Potential Good Set Goals Goals Set with Patient Yes Goals Goals 1. Pt will be independent and compliant with HEP and clinic recommendations in order to decrease compression on the median nn of RUE to resolve paresthesia, decrease pain and improve strength / dexterity. 4 weeks 2. Pt will demonstrate improved, pain-free lime burner and pinch strength comparable to the LUE in order to improve the ability to lift and carry dishes, and to improve general activity tolerance with cooking, cleaning and counter checker. 6 weeks 3. Pt will report the ability to drive for at least 20 minutes, sleep through the night, and wake in the morning without paresthesia indicating resolution of median nn compression and healing. 8 weeks. Treatment Plan Treatment Plan Evaluation,Edema Control, Iontophoresis,Joint Mobilization,Manual Therapy, Splinting,Ultrasound, Therapeutic Exercise, Therapeutic Activities,Self Care/Home Management,Education Expected Frequency 1-2x Week Expected Duration 6-8 Weeks Home Program Home Program Home Program Initiated Home Program Specifics 08/26/21 Initiated differential tendon glides, wrist flexor stretch and median nn glide. Following demo, pt is able to demonstrate exs with minimal cues for form. Pt was provided with written instruction for use at home as well. Certification Certification I Certify That: Therapy Services Provided, Therapy Plan Established, Therapy Plan Reviewed Recertification Information Recertification Information Initial Certification Date 08/26/22 Recertification Due Date 11/24/22 Reasons to Continue Skilled Therapy Initiated OT today to address RUE pain, weakness, and paresthesia secondary to CTS. Rehabilitation Potential Good Continued Plan of Care and Interventions Please see POC above. Provider Signature Shows Agreement With POC & Medical Necessity Physician Comment/Change Comment or Changes Physician NPI Number #
== END 2023-01-18 16:00 | disposition home or self-care (01) ==
PROVIDERS: PCP Family Medicine; Visit Provider Family Medicine
DX: M79.643 Pain in unspecified hand (principal); Z51.89 Encounter for other specified aftercare
CPT/HCPCS: 97035; 97140; 97165

== ENCOUNTER 2022-10-28 12:50 | Outpatient (CLI) | payer MEDICARE, OTHER, SELFPAY | END 2022-10-28 12:51 | disposition home or self-care (01) | LOC: RAD 12:51 | PROVIDERS: PCP Family Medicine; Visit Provider Family Medicine | DX: I35.1 Nonrheumatic aortic (valve) insufficiency (principal); I51.7 Cardiomegaly; I07.1 Rheumatic tricuspid insufficiency | CPT/HCPCS: 93306 ==

== ENCOUNTER 2022-12-23 09:45 | Outpatient (RCR) | payer MEDICARE, OTHER, SELFPAY ==
--- NOTE | 2022-08-04 18:43 | OT.OPLE ---
OT Outpatient Lymphedema Eval OT Outpatient Lymphedema Eval Start: 08/04/22 06:56 Freq: Status: Active Protocol: Document 08/04/22 18:21 AMB (Rec: 08/04/22 18:38 AMB [id number]) E-signed By Taya Garcia, OTR/L, CLT, LANDSCAPE GARDENER OT Outpatient Evaluation Details Type Type Eval Complexity Low OT OP Lymphedema Evaluation Insurance Information Insurance Information Medicare B Current Condition/Medical Diagnosis Referring Provider Dr Ly Treatment Diagnosis Lymphedema of the neck Date Of Onset January Medical Contraindications Depression,CA,Osteoporosis Current Work Status Current Work Status Retired Subjective Subjective Pt states she was 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 She also underwent 30 rounds of radiation which she finished on 04/29/22. Pt did have a lot of swelling initially. Pt states she received some lymphedema therapy in [place] with Jennifer and it did improve significantly. She was given compression and some pads to wear, she hasn't been really using the compression lately as she wasn't sure she needed to. Pt states she also received PT which was quite helpful for her ROM and strength. Pt states she is having continued concerns about the swelling that remains in her neck, states she is hoping it will continue to improve or at least not get any worse. Pt sleeps with her head of the bed elevated and feels this helps some. Medical History Medical History Cancer Treatment/Surgery, Radiation Medical History Comments PMH: (copied from medical chart Active Problems (Updated 02/22 @ 13:10 by Deja Acharya) Aortic valve regurgitation ( Chronic 2004) I35.1 - Nonrheumatic aortic ( valve) insufficiency (ICD-10) Dry eye syndrome (Chronic) & Amalia'mariah Gonzales Has established with Dr Griffin H04.129 - Dry eye syndrome of unspecified lacrimal gland ( ICD-10) Dyslipidemia (Chronic) E78.5 - Hyperlipidemia, unspecified (ICD-10) Gastroesophageal reflux disease (Chronic 2011) EGD 2012 K21.9 - Gastro-esophageal reflux disease without esophagitis (ICD-10) Hereditary and idiopathic peripheral neuropathy (Chronic ) G60.9 - Hereditary and idiopathic neuropathy, unspecified (ICD-10) Hyperlipidemia (Chronic) E78.5 - Hyperlipidemia, unspecified (ICD-10) 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 5. See scanned DXA report. M81.0 - Age-related osteoporosis without current pathological fracture (ICD-10) Lymphadenopathy of head and neck (Acute 12/2021) Node+ from SCC of scalp. Doing Radiation Therapy through [place]. R59.1 - Generalized enlarged lymph nodes (ICD-10) Memory problem (Chronic ~2021) Short term memory R41.3 - Other amnesia (ICD-10) Skin cancer of scalp (Acute ) Spread to neck nodes. Doing Radiation Therapy through [place] . C44.40 - Unspecified malignant neoplasm of skin of scalp and neck (ICD-10) Medical History (Updated 02/22 @ 13:10 by Deja Acharya) Skin cancer of scalp (07/2021) C44.40 - Unspecified malignant neoplasm of skin of scalp and neck (ICD-10) Lymphadenopathy of head and neck (12/2021) R59.1 - Generalized enlarged lymph nodes (ICD-10) Memory problem (~03/2021) R41.3 - Other amnesia (ICD-10) Osteoporosis (10/26/20) M81.0 - Age-related osteoporosis without current pathological fracture (ICD-10) Nonalcoholic fatty liver disease (2019) K76.0 - Fatty (change of) liver, not elsewhere classified (ICD-10) Microscopic colitis (2018) K52.839 - Microscopic colitis, unspecified (ICD-10) Lichen planus pigmentosus ( 2019) L43.8 - Other lichen planus ( ICD-10) Hyperlipidemia E78.5 - Hyperlipidemia, unspecified (ICD-10) History of vitamin D deficiency Z86.39 - Personal history of other endocrine, nutritional and metabolic disease (ICD-10) Hereditary and idiopathic peripheral neuropathy G60.9 - Hereditary and idiopathic neuropathy, unspecified (ICD-10) Gastroesophageal reflux disease (2011) K21.9 - Gastro-esophageal reflux disease without esophagitis (ICD-10) Dyslipidemia E78.5 - Hyperlipidemia, unspecified (ICD-10) Dry eye syndrome H04.129 - Dry eye syndrome of unspecified lacrimal gland ( ICD-10) Aortic valve regurgitation ( 2005) I35.1 - Nonrheumatic aortic ( valve) insufficiency (ICD-10) Surgical History (Updated @ 13:10 by Deja Acharya) History of SCC (squamous cell carcinoma) of skin (02/01/22) Z85.828 - Personal history of other malignant neoplasm of skin (ICD-10) History of phacoemulsification of cataract of both eyes with intraocular lens implantation (07/2021) Z98.41 - Cataract extraction status, right eye (ICD-10) Z98.42 - Cataract extraction status, left eye (ICD-10) Z96.1 - Presence of intraocular lens (ICD-10) History of tonsillectomy (1967 ) Z90.89 - Acquired absence of other organs (ICD-10) History of knee surgery (2018) Z98.890 - Other specified postprocedural states (ICD-10) History of hysterectomy (2017) Z90.710 - Acquired absence of both cervix and uterus (ICD-10 ) History of dental surgery ( 2017) Z92.89 - Personal history of other medical treatment (ICD- 10) History of colonoscopy () Z98.890 - Other specified postprocedural states (ICD-10) Surgical History Surgical History February 01 2022 scalp resection with 28LN on the left and 3 LN on the right. Medications Medications cholecalciferol (vitamin D3) 25 mcg PO QDAY coenzyme Q10 (Co Q-10) 100 mg PO QDAY nystatin 1 topical .2-3X/Day rosuvastatin 10 mg PO QDAY Contraindications Contraindications N/A Family History Family History of Lymphedema No Living Situation Current Living Situation Home With Spouse Or SO Exercise History Does Patient Exercise Regularly Yes Exercise Comments Pt enjoys walking daily on treadmill or outdoors if it is nice. Continues with her HEP from PT as well. Pain Pain Yes Pain Comments Pt reports pain of 4/10 in her neck, L>R, indicates pain in the area of surgical incisions , states it's always been sensitive. Loss of Function/Strength/Mobility Loss Of Function/Strength/Mobility No Previous Treatment Previous Treatment For Swelling/ MLD,Compression Garment, Lymphedema Exercise,Elevation Previous Treatment/Current Home Program Pt states she thinks they told her to massage her neck, but she is not sure and doesn't really know how to. Compression History Does Patient Currently Wear Compression No During Daytime Does Patient Currently Wear Compression No At Night Current Swelling (Location/Pitting/Texture) Pitting Scale: 0 = No pitting 1+ Tissue returns to normal almost immediately 2+ Tissue returns after 15-30 seconds 3+ Tissue returns after 1-1/2 minutes 4+ Tissue returns after 2-3 minutes N/A Tissue no longer pits due to induration Tissue texture: Soft or indurated Clinical Presentation Area Right and Left sides of the neck, areas of surgical incisions Clinical Presentation Pitting Very soft, non-pitting Triggering Event & Start Date of Cancer surgery and radiation Swelling/Lymphedema Type of Swelling Post Surgery/Traumatic Edema Staging Staging Stage 1 Skin Changes Skin Changes Comments Mild radiation fibrosis Assessment Assessment Pt presents to OT with gr 1, mild lymphedema in her neck, both sides, due to surgical removal of LN and extensive radiation treatments. Pt is at risk for cellulitis and further lymphedema related complications. Pt will benefit from skilled OT intervention to address lymphedema as well as to provide pt education and improve self care / management of her lymphedema in order to reduce the risks mentioned above. Problem List Problem List Limited Knowledge of Lymphedema Treatment/Condition /Precautions,Limited Knowledge of Skin Care & Infection Precautions,Significant Risk For Infection For Lymphedema Related Complications,Does Not Have a HEP Patient Goals Patient Goals 1. Pt will be independent and compliant with home program for lymphedema management in order to achieve and maintain best outcomes. 4 weeks 2. Pt will demonstrate a reduction of at least 2cm in order to reduce risk for exacerbation of lymphedema, infection and further lymphedema related complications. 8 weeks 3. Pt be consistent and compliant with use of compression for LT management of her lymphedema. 10 weeks. Treatment Plan Treatment Plan Evaluation,Edema Control, Manual Therapy,Wound Care/Scar Management,Therapeutic Exercise,Therapeutic Activities,Self-Care/Home Management,Education Expected Frequency 1-2x Week Expected Duration 8-10 Weeks Certification Certification I Certify That: Therapy Services Provided, Therapy Plan Established, Therapy Plan Reviewed Recertification Information Recertification Information Initial Certification Date 08/04/22 Recertification Due Date 11/02/22 Reasons to Continue Skilled Therapy Initiated OT today to address concerns of lymphedema in pt's neck following cancer surgery and treatment. Rehabilitation Potential Good Continued Plan of Care and Interventions Please see above. Provider Signature Shows Agreement With POC & Medical Necessity Physician Comment/Change Comment or Changes Physician NPI Number #
--- NOTE | 2022-11-08 18:22 | OT.OPLDN ---
OT Outpatient Lymphedema Daily Note OT Outpatient Lymphedema Daily Note Start: 08/04/22 06:56 Freq: Status: Active Protocol: Document 11/15/22 09:50 AMB (Rec: 11/15/22 09:50 AMB [id number]) E-signed By Taya Garcia, OTR/L, CLT, PROPERTY MANAGEMENT ACCOUNTANT OT OP Lymphedema Daily/Progress Note Note Type Note Type No Show Insurance Information Insurance Information Medicare B
== END 2022-12-23 11:58 | disposition home or self-care (01) ==
PROVIDERS: PCP Family Medicine; Visit Provider Family Medicine
DX: I89.0 Lymphedema, not elsewhere classified (principal); M79.643 Pain in unspecified hand; G89.29 Other chronic pain; G56.01 Carpal tunnel syndrome, right upper limb; M54.6 Pain in thoracic spine; M54.2 Cervicalgia; M25.511 Pain in right shoulder; M25.512 Pain in left shoulder; Z74.09 Other reduced mobility; M75.52 Bursitis of left shoulder; M75.51 Bursitis of right shoulder; M79.18 Myalgia, other site; C80.1 Malignant (primary) neoplasm, unspecified; R53.0 Neoplastic (malignant) related fatigue; Z51.89 Encounter for other specified aftercare
CPT/HCPCS: 97035; 97110; 97140; 97165; 97530; 97535; X5282

== ENCOUNTER 2023-02-15 11:37 | Outpatient (CLI) | payer MEDICARE, OTHER, SELFPAY ==
[2023-02-15 11:46] VITALS: BP 115/67; PULSE 57; RESP 16; O2SAT 100
[2023-02-15] MEDS: TETRACAINE 0.5% OPHTH 1 DROP EYE-RIGHT ×3 (11:49→12:16)
[2023-02-15] MEDS: BRIMONIDINE TARTRATE 0.2% OPHTH 1 DROP EYE-RIGHT ×2 (11:50→12:23)
--- NOTE | 2023-02-15 12:41 | W.PM.OPTPROC ---
Procedure Note Date of procedure: 02/15/23 Will [facility] bill your pro fee for this procedure?: Yes Procedure Description: SURGEON: Molly Maxwell MD PREOPERATIVE DIAGNOSIS: Posterior capsular opacity, right eye POSTOPERATIVE DIAGNOSIS: Posterior capsular opacity, right eye PROCEDURE: YAG laser capsulotomy, right eye ANESTHESIA: Topical. ESTIMATED BLOOD LOSS: None PATHOLOGY SPECIMEN: None COMPLICATIONS: None INDICATIONS: See consult note for details. The risks, benefits and alternatives of the procedure were explained to the patient, who elected to proceed and signed informed consent to do so. PROCEDURE: The patient was brought to the pre-holding area where the right eye was identified as the operative eye. I placed my initials above this eye. The patient received 2 sets of 1 drop of 0.5% tetracaine and 1 drop of 1% tropicamide. They also received 1 drop of 0.2% brimonidine. They received 1 drop of 0.5% tetracaine immediately prior to bringing them back for the procedure. The patient was then brought to the procedure room where the right eye was again identified as the operative eye. A YAG Daniel capsulotomy lens was placed on the eye. The laser was administered using a total number of 9 shots with an energy of 2.4 mJ per shot for a total energy of 22 mJ. The patient tolerated the procedure well. DISPOSITION: The patient was taken back to the pre-holding area and given 1 drop of 0.2% brimonidine in the right eye. They were discharged to home in stable condition. The patient was instructed to call me or go to the emergency department with any sudden change, including dramatic loss of vision, severe pain in the eye or eyebrow region, nausea, or vomiting. The patient was instructed to use the 0.2% brimonidine 1 drop 2 times a day in the right eye for 1 week. The patient will follow up in the clinic in 1-2 weeks.
== END 2023-02-15 12:23 | disposition home or self-care (01) ==
LOC: EYE PRC 11:37
PROVIDERS: PCP Family Medicine; Visit Provider Ophthalmology
DX: H26.9 Unspecified cataract (principal)
CPT/HCPCS: 66821; A9270

== ENCOUNTER 2023-02-24 10:28 | Outpatient (CLI) | payer MEDICARE, OTHER, SELFPAY | END 2023-02-24 10:29 | disposition home or self-care (01) | LOC: NFLDREF 02-26 07:27 | PROVIDERS: PCP Family Medicine; Referring Provider Family Medicine; Visit Provider Family Medicine | DX: E03.9 Hypothyroidism, unspecified (principal); E04.1 Nontoxic single thyroid nodule | CPT/HCPCS: 84443 ==

== ENCOUNTER 2023-04-17 07:55 | Outpatient (CLI) | payer MEDICARE, OTHER, SELFPAY ==
--- OUTSIDE RECORDS SUMMARY | 2023-04-17 11:44 | XMS_ITS | Clinical Summary ---
Author Name Unknown Organization [facility] Address [address] [place] [address] Care Team Providers Care Residency Program Coordinator Name Role Phone Elsewhere, Pcp Primary Care Provider Unavailabl e Source Comments Patient records contain information from all sites at [facility]. For routine questions regarding patient records, call [phone] during business hours, M-F 8:00 AM - 5:00 PM Central Time. Record requests for emergency care only can be directed to [phone] at any time.[facility] Allergies Active Allergy Reactions Criticality Noted Date Comments Penicillins Other (see comments) 01/19/2022 Family History of allergy but has never taken herself. Patient tolerated Duricef Pollen Extracts Itching 01/19/2022 Sulfa (Sulfonamide Antibiotics) Other (see comments) 01/19/2022 Medications Medication Sig Dispensed Refills Start Date End Date Status rosuvastatin (CRESTOR) 10 mg tablet Take 10 mg by mouth at bedtime. 0 Active ubiquinone (COENZYME Q10) 100 mg tablet Take 100 mg by mouth daily. 0 12/22/2021 Active UNABLE TO FIND Take 1 each by mouth daily. Med Name: Collagen powder, 1 scoop every morning with cereal 0 Active ketoconazole (NIZORAL) 2 % creamIndications: Dermatitis Seborrheic Apply 1 Application topically 2 (two) times a day as needed for rash or irritation. Apply to red, itchy areas on the central face and eyebrows as well as over the supragluteal cleft 60 g 11 12/21/2022 Active neomycin-polymyxi n B-dexameth (MAXITROL) 3.5 mg/g-10,000 unit/g-0.1 % ophthalmic ointment Apply to left eye as needed. 0 01/09/2023 Active levothyroxine (Synthroid) 50 mcg tablet Take 1 tablet (50 mcg total) by mouth daily. 90 tablet 1 03/02/2023 4 Active ketoconazole (NIZORAL) 2 % shampoo Apply 1 Application topically 3 (three) times a week. Apply to damp skin, lather, leave on 5 minutes, and rinse 120 mL 11 03/24/2023 Active hydrocortisone 2.5 % ointmentIndicatio ns:Dermatitis Mix with the ketoconazole and apply twice daily for up to 2 weeks as a time for flares of rash involving the buttocks, under the breast, or on the face. 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 Once you have completed the first 5 days, skip Day 6. Restart treatment on Day 7, take 1 tablet every other day until you finish the doses. 20 tablet 0 03/24/2023 Active methylcellulose, laxative, (CITRUCEL) 500 mg tablet Take by mouth daily. Heaping tablespoon in water once daily 0 Active triamcinolone (KENALOG) 0.1 % creamIndications: Dermatitis Apply twice daily as needed to areas of rash on buttocks 30 g 0 04/14/2023 Active hydrocortisone 2.5 % ointmentIndicatio ns:Dermatitis Apply twice daily to the gluteal cleft/buttock for 1-2 weeks, then as needed for flares and inflammation. 30 g 2 09/09/2022 4 Discontinue d(Reorder) vancomycin (VANCOCIN) 125 mg capsule TAKE ONE CAPSULE BY MOUTH EVERY SIX HOURS 0 01/30/2023 4 Discontinue d(Therapy completed) budesonide (Entocort EC) 3 mg 24 hr capsule 0 02/14/2023 4 Discontinue d(Therapy completed) Active Problems Problem Noted Date Diagnosed Date Malignant Neoplasm Of Neck Squamous Cell 022 Squamous Cell Carcinoma Of Skin Of Scalp And Nec k 01/26/2022 Overview: Added automatically from request for surgery [id number] Amnesia 01/26/2022 Disorder Of The Skin And Subcutaneous Tissue Uns pecified 01/26/2022 Dry Eye Syndrome Right 01/26/2022 Dyslipidemia 01/26/2022 Fatigue 01/26/2022 Fatty Liver 01/26/2022 Gastroesophageal Reflux Disease 01/26/2022 Generalized Enlarged Lymph Nodes 01/26/2022 Hereditary And Idiopathic Neuropathy Unspecified 01/26/2022 Hyperlipidemia 01/26/2022 Microscopic Colitis Unspecified 01/26/2022 Nonrheumatic Aortic Valve Insufficiency 01/27/20 22 Osteoporosis 10/26/2020 Encounters Date Type Department Care Team Description 04/14/2023 1:00 PM SENIOR COST ESTIMATOR Comprehensive Visit Department of Dermatology in [place], [place] [address] [place] [phone] Patsy Lentz M.D. Tumor Skin Uncertain Behavior (Primary Dx); Malignant Neoplasm Of Neck Squamous Cell; Nevi Multiple; Dermatoheliosis; Keratosis Seborrheic; Dermatitis 04/14/2023 8:36 AM SENIOR COST ESTIMATOR - 04/14/2023 2:43 PM SENIOR COST ESTIMATOR Hospital Encounter Department of Radiation Oncology in [place], [place] [address] [place] [phone] Tammie Hooks M.D., Ph.D. Squamous Cell Carcinoma Of Skin Of Scalp And Neck (Primary Dx) 04/14/2023 12:05 AM SENIOR COST ESTIMATOR Ancillary Procedure Department of Dermatology Arrived 04/14/2023 Ancillary Procedure Department of Dermatology Arrived 04/13/2023 4:00 PM SENIOR COST ESTIMATOR Office Visit Department of Oncology in [place], [place] [address] [place] [phone] Mc Mcknight M.D., Ph.D. Malignant Neoplasm Of Neck Squamous Cell (Primary Dx); Secondary Malignant Neoplasm Lymph Node (HCC) 04/13/2023 9:12 AM SENIOR COST ESTIMATOR - 04/13/2023 11:59 PM SENIOR COST ESTIMATOR Hospital Encounter Department of Radiology, [facility], in [place], [place] [address] [place] [phone] Blanche Monzon P.A.-C., M.S. Squamous Cell Carcinoma Of Skin Of Scalp And Neck; Malignant Neoplasm Of Neck Squamous Cell Discharge Disposition: Home or Self Care 04/13/2023 7:43 AM SENIOR COST ESTIMATOR - 04/13/2023 9:11 AM SENIOR COST ESTIMATOR Hospital Encounter Department of Laboratory Medicine and Pathology, [facility] in [place], [place] [address] [place] [phone] Blanche Monzon P.A.-C., M.S. Squamous Cell Carcinoma Of Skin Of Scalp And Neck; Malignant Neoplasm Of Neck Squamous Cell; Hypothyroidism Acquired Discharge Disposition: Home or Self Care 04/07/2023 9:15 AM SENIOR COST ESTIMATOR Clinical Communication Virtual Review in [address] [address] Pre-visit Intake 03/24/2023 Orders Only Division of Gastroenterology in [address] [phone] Davon Casey M.D. 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 Squamous Cell Carcinoma Of Skin Of Scalp And Neck; Secondary Malignant Neoplasm Lymph Node (HCC); Dermatitis Discharge Disposition: Home or Self Care 03/23/2023 8:49 AM SENIOR COST ESTIMATOR - 03/23/2023 11:59 PM SENIOR COST ESTIMATOR Hospital Encounter Department of Laboratory Medicine and Pathology, [facility] in [place], [place] [address] [place] [phone] Davon Casey M.D. Diarrhea Discharge Disposition: Home or Self Care 03/21/2023 10:30 AM SENIOR COST ESTIMATOR Clinical Communication Virtual Review in [address] [address] Pre-visit Intake 03/20/2023 Orders Only Division of Gastroenterology in [address] [phone] Davon Casey M.D. Diarrhea (Primary Dx) 03/08/2023 11:40 AM SENIOR COST ESTIMATOR Virtual Visit Division of Gastroenterology in [place], [place] [address] [place] [phone] Davon Casey M.D. Diarrhea [R19.7] (Primary Dx) 03/02/2023 Orders Only Department of Radiation Oncology in [place], [place] [address] [place] [phone] Karina Garcia APRN, C.NChristiana., M.S.N. 02/28/2023 Clinical Communication Department of Radiation Oncology in [place], [place] [address] [place] [phone] Tammie Hooks M.D., Ph.D. 02/20/2023 10:20 AM SENIOR COST ESTIMATOR Comprehensive Visit Division of Gastroenterology in [place], [place] [address] [place] [phone] Tammie Hooks M.D., Ph.D. Davon Casey M.D. Insufficiency Pancreatic 02/14/2023 Orders Only Department of Radiation Oncology in [place], [place] [address] [place] [phone] Renea Arango, R.N. Insufficiency Pancreatic (Primary Dx) 02/10/2023 Orders Only Department of Radiation Oncology in [place], [place] [address] [place] [phone] Renea Arango S, R.N. Insufficiency Pancreatic (Primary Dx) 02/10/2023 Orders Only Department of Radiation Oncology in [place], [place] [address] [place] [phone] Renea Arango S, R.N. from Last 3 Months Family History Medical History Relation Name Comments Lung cancer Brother Lisa Toro Lung cancer Father Anselmo toro Dementia Maternal Grandmother Desirae Ugarte Tuberculosis Maternal Grandmother Desirae Ugarte Dementia Mother Lyricrhonda Ugarte-Toro Dementia Sister Ani Toro Alcohol abuse Son Filippo Guevara Relation Name Status Comments Brother Lisa Toro Father Anselmo toro Maternal Grandmother Desirae Ugarte Mother Lyric Palacio Sister Ani Toro Son Filippo Guevara Social History Tobacco Use Types Packs/Day Years Used Date Smoking Tobacco: Never Smokeless Tobacco: Never Tobacco Cessation:Counseling Given: Not Answered Alcohol Use Standard Drinks/Week Comments Not Currently 0 (1 standard drink = 0.6 oz pur e alcohol) Humiliation, Afraid, Rape, and Kick questionnair e Answer Date Recorded Within the last year, have y ou been afraid of your partner or ex-partner? No 09/02/2022 Within the last year, have y ou been humiliated or emotionally abused in other ways by your partner or ex-partner? No Within the last year, have y ou been kicked, hit, slapped, or otherwise physically hurt by your partner or ex-partner? No 09/02/2022 Within the last year, have y ou been raped or forced to have any kind of sexual activity by your partner or ex-partner? No 09/02/2022 Social Connection and Isolat ion Panel [NHANES] Answer Date Recorded In a typical week, how many times do you talk on the phone with family, friends, or neighbors? More than three times a week 01/24/2022 How often do you get togethe r with friends or relatives? Once a week 01/24/2022 How often do you attend chur ch or christianity services? Never 01/24/2022 Do you belong to any clubs o r organizations such as judaism groups, unions, fraternal or athletic groups, or school groups? No 01/24/2022 How often do you attend meet ings of the clubs or organizations you belong to? Never 01/24/2022 Are you , , di vorced, , never , or living with a partner? 01/24/2022 AUDIT-C Answer Date Recorded Q1: How often do you have a drink containing alc ohol? Never 01/24/2022 Average Number of Drinks Not on file 022 Frequency of Binge Drinking Not on file 01/05 Overall Financial Resource Strain (CARDIA) Answe r Date Recorded How hard is it for you to pa y for the very basics like food, housing, medical care, and heating? Not hard at all 09/02/2022 [facility] Occupat ional Health - Occupational Stress Questionnaire Answer Date Recorded Do you feel stress - tense, restless, nervous, or anxious, or unable to sleep at night because your mind is troubled all the time - these days? Rather much 01/24/2022 Exercise Vital Sign Answer Date Recorde d On average, how many days pe r week do you engage in moderate to strenuous exercise (like a brisk walk)? 6 days 02/16/2023 On average, how many minutes do you engage in exercise at this level? 30 min 02/16/2023 Hunger Vital Sign Answer Date Recorded Within the past 12 months, y ou worried that your food would run out before you got the money to buy more. Never true 02/17/20 Within the past 12 months, t he food you bought just didn't last and you didn't have money to get more. Never true 02/16/2023 PRAPARE - Transportation Answer Date Re corded In the past 12 months, has l ack of transportation kept you from medical appointments or from getting medications? No 02/03 In the past 12 months, has l ack of transportation kept you from meetings, work, or from getting things needed for daily living? No 02/16/2023 Nutrition Answer Date Recorded Nutrition: EVOO Fat Source Yes 02/16 On average, how many serving s of fruits and vegetables do you eat per day (serving size is equal to 1 cup or approximately the size of a tennis ball)? 3-5 02/16/2023 Dental Answer Date Recorded Dental: Regular Dentist Yes 01/25/20 Employment Answer Date Recorded Employment status Retired 02/16/2023 Housing Stability Answer Date Recorded What is your living situation today? I have a [facility] [address] to live 02/16/2023 Education Answer Date Recorded What is the highest level of school you have completed or the highest degree you have received? Bachelor's degree (e.g., BA, AB, BS) 01/24/2022 Sex and Gender Information Value Date Recorded Sex Assigned at Female 01/24/2022 7:37 PM SENIOR COST ESTIMATOR Gender Identity Female 01/24/2022 7:37 PM SENIOR COST ESTIMATOR Sexual Orientation Straight 01/24/2022 7: 37 PM SENIOR COST ESTIMATOR Last Filed Vital Signs Vital Sign Reading Time Taken Comments Blood Pressure 107/64 04/13/2023 3:31 PM SENIOR COST ESTIMATOR Pulse 64 04/13/2023 3:31 PM SENIOR COST ESTIMATOR Temperature 37 ??C (98.6 ??F) 04/13/2023 3:31 PM SENIOR COST ESTIMATOR Respiratory Rate 18 04/13/2023 3:31 PM SENIOR COST ESTIMATOR Oxygen Saturation 98% 04/13/2023 3:31 PM SENIOR COST ESTIMATOR Inhaled Oxygen Concentration - - Weight 57.7 kg (127 lb 3.3 oz) 04/14/2023 9:03 A M SENIOR COST ESTIMATOR Height 160 cm (5' 2.99) 04/13/2023 3:31 PM SENIOR COST ESTIMATOR Body Mass Index 22.54 04/13/2023 3:31 PM SENIOR COST ESTIMATOR Plan of Treatment Health Maintenance Due Date Last Done Comments Hepatitis C Screening 1945 Zoster Vaccines (2 of 2) 01/18/2023 11/23/2022, 03/2011 Depression Screening (Annual PHQ-2) 03/06/2023 Fall Risk Screen (Annual) 03/06/2023 Thyroid Stimulating Hormone (TSH) test for thyroid function 04/13/2024 04/13/2023, 01/11/2023, 10/21/2022, Additional history exists DTaP,Tdap,and Td Vaccines (3 - Td or Tdap) 11/23/2032 11/23/2022, 12/21/2012, 03/05/1990 Pneumococcal vaccine (65+ years) Completed 07/16/2014, 05/18/2011 COVID-19 Vaccine Completed 01/16/2023, , 06/18/2021, Additional history exists Influenza Vaccine Completed 01/16/2023, , 12/28/2020, Additional history exists HPV Vaccines Aged Out No longer eligi ble based on patient's age to complete this topic Medical Devices Implanted Type Area Dough Sheeter Device Identifier Shelf Expiration Date Model / Serial / Lot Hardware E.G. Pins/Screws/Ro ds Hardware e.g. pins/screws/r ods Mouth Procedures Procedure Name Priority Date/Time Associated Diagnosis Comments DERMATOLOGY IMAGE EXAM Routine 04/14/2023 12:05 AM SENIOR COST ESTIMATOR DERMATOLOGY IMAGE EXAM Routine 04/14/2023 12:00 AM SENIOR COST ESTIMATOR CT NECK SOFT TISSUE WITH IV CONTRAST RAD - Routine (most inpatients and all outpatients) 04/13/2023 10:36 AM SENIOR COST ESTIMATOR Squamous Cell Carcinoma Of Skin Of Scalp And Neck Malignant Neoplasm Of Neck Squamous Cell CT ABDOMEN PELVIS WITH IV CONTRAST RAD - Routine (most inpatients and all outpatients) 04/13/2023 10:36 AM SENIOR COST ESTIMATOR Squamous Cell Carcinoma Of Skin Of Scalp And Neck Malignant Neoplasm Of Neck Squamous Cell CT CHEST WITH IV CONTRAST RAD - Routine (most inpatients and all outpatients) 04/13/2023 10:36 AM SENIOR COST ESTIMATOR Squamous Cell Carcinoma Of Skin Of Scalp And Neck Malignant Neoplasm Of Neck Squamous Cell THYROID FUNCTION CASCADE, S Routine 04/13/2023 7:54 AM SENIOR COST ESTIMATOR Squamous Cell Carcinoma Of Skin Of Scalp And Neck Malignant Neoplasm Of Neck Squamous Cell Hypothyroidism Acquired CBC WITH DIFFERENTIAL, B Routine 04/13/2023 7:54 AM SENIOR COST ESTIMATOR Squamous Cell Carcinoma Of Skin Of Scalp And Neck Malignant Neoplasm Of Neck Squamous Cell COMPREHENSIVE METABOLIC PANEL, S/P Routine 04/13/2023 7:54 AM SENIOR COST ESTIMATOR Squamous Cell Carcinoma Of Skin Of Scalp And Neck Malignant Neoplasm Of Neck Squamous Cell C. DIFFICILE TOXIN PCR, F Routine 03/23/2023 4:00 PM SENIOR COST ESTIMATOR Diarrhea from Last 3 Months Results * Scalp 502-Dermatology Image Exam (04/14/2023 12:05 AM SENIOR COST ESTIMATOR) Only the most recent of2 resultswithin the time period is included. Narrative [facility] - 04/14/2023 4:07 PM SENIOR COST ESTIMATOR This order has been created and auto-finalized to support the import of images acquired without order. The clinical documentation to support these images can be found on the encounter that produced images. Provider Not In System IMG NON RAD IMAGI NG PROCEDURES [facility] NA * CT Abdomen Pelvis with IV Contrast (04/13/2023 10:36 AM SENIOR COST ESTIMATOR) Anatomical Region Laterality Modality Abdomen, Pelvis, Abdominal R ST LOS, Abdominal ARZ LOS, Abdominal FLA LOS N/A Computed Tomograp hy, Computed Tomography 04/13/2023 10:2 1 AM SENIOR COST ESTIMATOR Impressions 04/13/2023 10:33 AM SENIOR COST ESTIMATOR No evidence for metastatic disease in the abdomen or pelvis. Narrative 04/13/2023 10:33 AM SENIOR COST ESTIMATOR EXAM: ??CT ABDOMEN PELVIS WITH IV CONTRAST COMPARISON: ??CTs 01/11/2023 and 06/09/2022. FINDINGS: ??Mild thickening of the left adrenal gland, which is unchanged dating back to the oldest available CT from 06/09/2022. No discrete adrenal nodules. No lymphadenopathy in the abdomen or pelvis. Hepatic and bilateral renal cysts. Aortoiliac calcifications. Small esophageal hiatal hernia. Small fat-containing umbilical hernia. Hysterectomy. Colonic diverticulosis. Aortoiliac calcifications. Stable benign-appearing sclerotic lesion in the right femoral head. No worrisome bony lesions. This exam was performed in conjunction with CTs of the neck and chest, which will be reported separately. Procedure Note Bao Wheatley M.D. - 04/13/2023 EXAM: CT ABDOMEN PELVIS WITH IV CONTRAST COMPARISON: CTs 01/11/2023 and 06/09/2022. FINDINGS: Mild thickening of the left adrenal gland, which is unchangeddating back to the oldest available CT from 06/09/2022. No discreteadrenal nodules. No lymphadenopathy in the abdomen or pelvis. Hepatic andbilateral renal cysts. Aortoiliac calcifications. Small esophageal hiatal hernia. Small fat-containingumbilical hernia. Hysterectomy. Colonic diverticulosis. Aortoiliaccalcifications. Stable benign-appearing sclerotic lesion in the rightfemoral head. No worrisome bony lesions. This exam was performed in conjunction with CTs of the neck and chest,which will be reported separately. IMPRESSION: No evidence for metastatic disease in the abdomen or pelvis. Blanche Monzon P.A.-C., M.S. IMG CT P ROCEDURES * CT Chest with IV Contrast (04/13/2023 10:36 AM SENIOR COST ESTIMATOR) Anatomical Region Laterality Modality Chest, Thoracic RST LOS, Tho racic ARZ LOS, Thoracic ARZ LOS, Thoracic FLA LOS N/A Computed Tomography, Compute d Tomography 04/13/2023 10:2 2 AM SENIOR COST ESTIMATOR Impressions 04/13/2023 12:54 PM SENIOR COST ESTIMATOR Stable exam including tiny pulmonary nodules. Narrative 04/13/2023 12:54 PM SENIOR COST ESTIMATOR EXAM: CT CHEST WITH IV CONTRAST COMPARISON: CT chests 01/11/2023 and 06/09/2022 FINDINGS: Tiny solid peribronchiolar nodule in the posterior left upper lobe centrally (series 3, image 273) and tiny groundglass nodule in the right upper lobe centrally (image 118) are unchanged since 06/09/2022. No new nodules. Mild bilateral apical scarring. Scattered scarring/dependent density in the lung bases. Scattered nodes in the chest without adenopathy. Small esophageal hiatal hernia. Stable small probable hemangioma in the T11 vertebral body. This examination was performed in conjunction with a CT of the abdomen, which will be reported separately. Procedure Note Zan Morrell M.D. - 04/13/2023 EXAM: CT CHEST WITH IV CONTRAST COMPARISON: CT chests 01/11/2023 and 06/09/2022 FINDINGS: Tiny solid peribronchiolar nodule in the posterior left upperlobe centrally (series 3, image 273) and tiny groundglass nodule in theright upper lobe centrally (image 118) are unchanged since 06/09/2022. Nonew nodules. Mild bilateral apical scarring. Scattered scarring/dependent density in the lung bases. Scattered nodes in the chest without adenopathy. Small esophageal hiatalhernia. Stable small probable hemangioma in the T11 vertebral body. This examination was performed in conjunction with a CT of the abdomen,which will be reported separately. IMPRESSION: Stable exam including tiny pulmonary nodules. Blanche Monzon P.A.-C., M.S. IMG CT P ROCEDURES * CT Neck Soft Tissue with IV Contrast (04/13/2023 10:36 AM SENIOR COST ESTIMATOR) Anatomical Region Laterality Modality Neck, Neuroradiology RST LOS , Neuroradiology ARZ LOS, Neuroradiology FLA LOS N/A Computed Tomography, Compute d Tomography 04/13/2023 10:2 2 AM SENIOR COST ESTIMATOR Impressions 04/13/2023 11:06 AM SENIOR COST ESTIMATOR Stable exam since 01/11/2023. Nothing for residual/recurrent squamous cell carcinoma. Narrative 04/13/2023 11:06 AM SENIOR COST ESTIMATOR EXAM: CT NECK SOFT TISSUE WITH IV CONTRAST COMPARISON: [place] soft tissue neck CT with IV contrast 01/11/2023. FINDINGS: Unchanged since the prior study. Again visualized are bilateral neck dissections with a paucity of fat noted beneath the sternocleidomastoid muscles bilaterally. Mild soft tissue stranding and moderate thickening of the sinclair of both common carotid arteries compatible with radiation therapy. No evidence of mass, adenopathy or abnormal enhancement to suggest residual/recurrent tumor. No evidence of osseous metastasis. Stable cystic changes involving the lingual tonsils, with a multicystic exophytic lesion extending from the right lingual tonsil into the right vallecula (4-151). Stable cystic changes within the thyroid gland. Scarring within the lung apices. Bilateral cataract surgery. [id number] generalized cerebral and cerebellar volume loss. Remainder normal. Procedure Note Philip Birmingham M.D., Ph.D. - 04/13/2023 EXAM: CT NECK SOFT TISSUE WITH IV CONTRAST COMPARISON: [place] soft tissue neck CT with IV contrast 01/11/2023. FINDINGS: Unchanged since the prior study. Again visualized are bilateralneck dissections with a paucity of fat noted beneath thesternocleidomastoid muscles bilaterally. Mild soft tissue stranding andmoderate thickening of the sinclair of both common carotid arteries compatible with radiation therapy. No evidence of mass,adenopathy or abnormal enhancement to suggest residual/recurrent tumor. Noevidence of osseous metastasis. Stable cystic changes involving thelingual tonsils, with a multicystic exophytic lesion extending from the right lingual tonsil into the rightvallecula (4-151). Stable cystic changes within the thyroid gland.Scarring within the lung apices. Bilateral cataract surgery.[id number] generalized cerebral and cerebellar volume loss. Remainder normal. IMPRESSION: Stable exam since 01/11/2023. Nothing for residual/recurrent squamous cellcarcinoma. Blanche Monzon P.A.-C., M.S. IMG CT P ROCEDURES * Thyroid Function [place] (04/13/2023 7:54 AM SENIOR COST ESTIMATOR) Pathologist [facility] TSH, Sensitive 3.4 0.3 - 4.2 mIU/L 04/13/2023 9:00 AM SENIOR COST ESTIMATOR DTL Blood (Blood, Venous) 04/13/2023 7:54 AM SENIOR COST ESTIMATOR 04/13/2023 8:28 AM SENIOR COST ESTIMATOR Karina Garcia APRN, C.N.P., M.S.N. LAB BLOOD ADD-ON [facility] [address] [place] [address], [facility] [place] [address] [place] [address] * (ABNORMAL) CBC with Differential, Blood (04/13/2023 7:54 AM SENIOR COST ESTIMATOR) Pathologist [facility] Hemoglobin 13.0 11.6 - 15.0 g/dL 04/13/2023 8:32 AM SENIOR COST ESTIMATOR DTL Hematocrit 38.7 35.5 - 44.9 % 04/13/2023 8:32 AM SENIOR COST ESTIMATOR DTL Erythrocytes 4.43 3.92 - 5.13 x10(12)/L 04/13/2023 8:32 AM SENIOR COST ESTIMATOR DTL MCV 87.4 78.2 - 97.9 fL 04/13/2023 8:32 AM SENIOR COST ESTIMATOR DTL RBC Distrib Width 12.3 12.2 - 16.1 % 04/13/2023 8:32 AM SENIOR COST ESTIMATOR DTL Platelet Count 286 157 - 371 x10(9)/L 04/13/2023 8:32 AM SENIOR COST ESTIMATOR DTL Leukocytes 4.2 3.4 - 9.6 x10(9)/L 04/13/2023 8:32 AM SENIOR COST ESTIMATOR DTL Neutrophils 2.63 1.56 - 6.45 x10(9)/L 04/13/2023 8:32 AM SENIOR COST ESTIMATOR [facility] Lymphocytes 0.87(L) 0.95 - 3.07 x10(9)/L 04/13/2023 8:32 AM SENIOR COST ESTIMATOR DTL Monocytes 0.39 0.26 - 0.81 x10(9)/L 04/13/2023 8:32 AM SENIOR COST ESTIMATOR DTL Eosinophils 0.23 0.03 - 0.48 x10(9)/L 04/13/2023 8:32 AM SENIOR COST ESTIMATOR DTL Basophils 0.04 0.01 - 0.08 x10(9)/L 04/13/2023 8:32 AM SENIOR COST ESTIMATOR DTL Blood (Blood, Venous) 04/13/2023 7:54 AM SENIOR COST ESTIMATOR 04/13/2023 8:18 AM SENIOR COST ESTIMATOR Blanche Monzon P.A.-C. M.S. LAB BLOO D ADD-ON [facility] [address] [place] [address], [facility] DTL [facility] [address] [place] [address] [facility] [address] [place] [address] * Comprehensive Metabolic Panel (04/13/2023 7:54 AM SENIOR COST ESTIMATOR) Pathologist [facility] Potassium, S 4.3 3.6 - 5.2 mmol/L 04/13/2023 9:00 AM SENIOR COST ESTIMATOR DTL Sodium, S 139 135 - 145 mmol/L 04/13/2023 9:00 AM SENIOR COST ESTIMATOR DTL Chloride, S 102 98 - 107 mmol/L 04/13/2023 9:00 AM SENIOR COST ESTIMATOR DTL Bicarbonate, S 26 22 - 29 mmol/L 04/13/2023 9:00 AM SENIOR COST ESTIMATOR DTL Anion Gap 11 7 - 15 04/13/2023 9:00 AM SENIOR COST ESTIMATOR DTL BUN (Blood Urea Nitrogen), S 14 6 - 21 mg/dL 04/13/2023 9:00 AM SENIOR COST ESTIMATOR DTL Creatinine 0.76 0.59 - 1.04 mg/dL 04/13/2023 9:00 AM SENIOR COST ESTIMATOR DTL Estimated GFR (eGFR) 81 >=60 mL/min/BS A 04/13/2023 9:00 AM SENIOR COST ESTIMATOR DTL Comment: Estimated GFR calculated using the 2020 CKD_EPI creatinine equation. Calcium, Total, S 9.4 8.8 - 10.2 mg/dL 04/13/2023 9:00 AM SENIOR COST ESTIMATOR DTL Glucose, S 95 70 - 140 mg/dL 04/13/2023 9:00 AM SENIOR COST ESTIMATOR DTL Protein, Total, S 6.4 6.3 - 7.9 g/dL 04/13/2023 9:00 AM SENIOR COST ESTIMATOR DTL Albumin, S 4.2 3.5 - 5.0 g/dL 04/13/2023 9:00 AM SENIOR COST ESTIMATOR DTL Aspartate Aminotransferase (AST), S 36 8 - 43 U/L 04/13/2023 9:00 AM SENIOR COST ESTIMATOR DTL Alkaline Phosphatase, S 97 35 - 104 U/L 04/13/2023 9:00 AM SENIOR COST ESTIMATOR DTL Alanine Aminotransferase (ALT), S 23 7 - 45 U/L 04/13/2023 9:00 AM SENIOR COST ESTIMATOR DTL Bilirubin, Total, S 0.3 0.0 - 1.2 mg/dL 04/13/2023 9:00 AM SENIOR COST ESTIMATOR DTL Blood (Blood, Venous) 04/13/2023 7:54 AM SENIOR COST ESTIMATOR 04/13/2023 8:28 AM SENIOR COST ESTIMATOR Blanche Monzon P.A.-C. M.S. LAB BLOO D ADD-ON [facility] [address] [place] [address], [facility] [place] [address] [place] [address] * (ABNORMAL) Clostridioides (Clostridium) Difficile Toxin, Molecular Detection, PCR, Feces (03/23/2023 4:00 PM SENIOR COST ESTIMATOR) C. difficile Toxin, F Positive( A) Negative 03/23/2023 5:47 PM SENIOR COST ESTIMATOR DTL Semi-Urgent This is a semi-urge nt result(RUSHING ) [facility] Stool (Stool) 03/23/2023 4:0 0 PM SENIOR COST ESTIMATOR 03/23/2023 4:53 PM SENIOR COST ESTIMATOR Davon Mike M.D. LAB MICRO BIOLOGY - GENERAL ORDERABLES [facility] [address] [place] [address], [facility] DTL [facility] [address] [place] [address] from Last 3 Months Advance Directives For more information, please contact: [phone] Documents on File Type Date Recorded Patient Swage Tender Expl anation Advance Directives 02/02/2022 9:49 AM INV SANDY Latest Code Status on File Code Status Date Activated Date Inactivated Comments Full Code 02/01/2022 8:50 PM 02/02/2022 6:01 PM Question Answer Comments Full Code: Not Discussed Due to: Patient not available Care Teams Residency Program Coordinator Relationship Specialty Start Date End Date Elsewhere, Pcp PCP - General Family Medicine 02/01/22
--- OUTSIDE RECORDS SUMMARY | 2023-04-17 11:44 | XMS_ITS ---
Author Name Unknown Organization [facility] Address [address] [place] [address] Care Team Providers Care Circus Rider Name Role Phone Elsewhere, Pcp Primary Care Provider Unavailabl e Active Problems Problem Noted Date Diagnosed Date Malignant Neoplasm Of Neck Squamous Cell 022 Squamous Cell Carcinoma Of Skin Of Scalp And Nec k 01/26/2022 Overview: Added automatically from request for surgery [id number] Amnesia 01/26/2022 Disorder Of The Skin And Subcutaneous Tissue Uns pecified 01/26/2022 Dry Eye Syndrome Right 01/26/2022 Dyslipidemia 01/26/2022 Fatigue 01/26/2022 Fatty Liver 01/26/2022 Gastroesophageal Reflux Disease 01/26/2022 Generalized Enlarged Lymph Nodes 01/26/2022 Hereditary And Idiopathic Neuropathy Unspecified 01/26/2022 Hyperlipidemia 01/26/2022 Microscopic Colitis Unspecified 01/26/2022 Nonrheumatic Aortic Valve Insufficiency 01/27/20 22 Osteoporosis 10/26/2020 Current Oncology Plans No current plan information found. Past Plans No past plan information found. Radiation Treatments * Plan Last Treated On Elapsed Days Fractions Treated Prescribed Fraction Dose Prescribed Total Dose [id number] 04/29/2022 39 30 of 30 220 cGy 6,600 cGy [id number] 04/29/2022 39 30 of 30 200 cGy 6,000 cGy Reference Point Last Treated On Elapsed Days Session Dose Total Dose [id number] 04/29/2022 39 200 cGy 6,000 cGy [id number] 04/29/2022 39 220 cGy 6,600 cGy
--- OUTSIDE RECORDS SUMMARY | 2023-04-17 11:44 | XMS_ITS | Referral Summary ---
Author Name Unknown Organization [facility] Address [address] [place] [address] Care Team Providers Care Car Rider Name Role Phone Elsewhere, Pcp Primary Care Provider Unavailabl e Source Comments Patient records contain information from all sites at [facility]. For routine questions regarding patient records, call [phone] during business hours, M-F 8:00 AM - 5:00 PM Central Time. Record requests for emergency care only can be directed to [phone] at any time.[facility] Encounters Date Type Department Care Team Description 04/14/2023 12:05 AM PUBLIC INFORMATION OFFICER Ancillary Procedure Department of Dermatology Arrived 04/14/2023 Ancillary Procedure Department of Dermatology Arrived 04/14/2023 1:00 PM PUBLIC INFORMATION OFFICER Comprehensive Visit Department of Dermatology in [place], [place] [address] [place] [address] Patsy Lentz M.D. Tumor Skin Uncertain Behavior (Primary Dx); Malignant Neoplasm Of Neck Squamous Cell; Nevi Multiple; Dermatoheliosis; Keratosis Seborrheic; Dermatitis 04/14/2023 8:36 AM PUBLIC INFORMATION OFFICER - 04/14/2023 2:43 PM PUBLIC INFORMATION OFFICER Hospital Encounter Department of Radiation Oncology in [place], [place] [address] [place] [address] Tammie Hooks M.D., Ph.D. Squamous Cell Carcinoma Of Skin Of Scalp And Neck (Primary Dx) 04/13/2023 7:43 AM PUBLIC INFORMATION OFFICER - 04/13/2023 9:11 AM PUBLIC INFORMATION OFFICER Hospital Encounter Department of Laboratory Medicine and Pathology, [facility] in [place], [place] [address] [place] [phone] Blanche Monzon P.A.-C., M.S. Squamous Cell Carcinoma Of Skin Of Scalp And Neck; Malignant Neoplasm Of Neck Squamous Cell; Hypothyroidism Acquired Discharge Disposition: Home or Self Care 04/13/2023 9:12 AM PUBLIC INFORMATION OFFICER - 04/13/2023 11:59 PM PUBLIC INFORMATION OFFICER Hospital Encounter Department of Radiology, [facility] in [place], [place] [address] [place] [phone] Blanche Monzon P.A.-C., M.S. Squamous Cell Carcinoma Of Skin Of Scalp And Neck; Malignant Neoplasm Of Neck Squamous Cell Discharge Disposition: Home or Self Care 04/13/2023 4:00 PM PUBLIC INFORMATION OFFICER Office Visit Department of Oncology in [address] [phone] Mc Mcknight M.D., Ph.D. Malignant Neoplasm Of Neck Squamous Cell (Primary Dx); Secondary Malignant Neoplasm Lymph Node (HCC) 04/07/2023 9:15 AM PUBLIC INFORMATION OFFICER Clinical Communication Virtual Review in [place], [place] [address] [place] [address] Pre-visit Intake 03/24/2023 Orders Only Division of Gastroenterology in [address] [phone] Davon Casey M.D. 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 Diarrhea Discharge Disposition: Home or Self Care 03/23/2023 11:20 AM PUBLIC INFORMATION OFFICER Office Visit Department of Dermatology in [place], [place] [address] [place] [phone] Aditya Pimentel M.D., M.B.A. Squamous Cell Carcinoma Of Skin Of Scalp And Neck; Secondary Malignant Neoplasm Lymph Node (HCC); Dermatitis Discharge Disposition: Home or Self Care 03/21/2023 10:30 AM PUBLIC INFORMATION OFFICER Clinical Communication Virtual Review in [place], [place] [address] [place] [address] Pre-visit Intake 03/20/2023 Orders Only Division of Gastroenterology in [place], [place] [address] [place] [phone] Davon Casey M.D. Diarrhea (Primary Dx) 03/08/2023 11:40 AM PUBLIC INFORMATION OFFICER Virtual Visit Division of Gastroenterology in [place], [place] [address] [place] [phone] Davon Casey M.D. Diarrhea [R19.7] (Primary Dx) 03/02/2023 Orders Only Department of Radiation Oncology in [place], [place] [address] [place] [phone] Karina Garcia APRN, C.N.P., M.S.N. 02/28/2023 Clinical Communication Department of Radiation Oncology in [place], [place] [address] [place] [phone] Tammie Hooks M.D., Ph.D. 02/20/2023 10:20 AM PUBLIC INFORMATION OFFICER Comprehensive Visit Division of Gastroenterology in [place], [place] [address] [place] [phone] Tammie Hooks M.D., Ph.D. Davon Casey M.D. Insufficiency Pancreatic 02/14/2023 Orders Only Department of Radiation Oncology in [place], [place] [address] [place] [phone] Renea Arango R.N. Insufficiency Pancreatic (Primary Dx) 02/10/2023 Orders Only Department of Radiation Oncology in [place], [place] [address] [place] [phone] Renea Arango R.N. Insufficiency Pancreatic (Primary Dx) 02/10/2023 Orders Only Department of Radiation Oncology in [place], [place] [address] [place] [address] Renea Arango R.N. from Last 3 Months Allergies Active Allergy Reactions Criticality Noted Date [...] by mouth daily. 90 tablet 1 03/02/2023 Active ketoconazole (NIZORAL) 2 % shampoo Apply 1 Application topically 3 (three) times a week. Apply to damp skin, lather, leave on 5 minutes, and rinse 120 mL 03/24/2023 Active hydrocortisone 2.5 % ointmentIndicatio ns:Dermatitis [...] Overview: Added automatically from request for surgery [id number] Amnesia 01/26/2022 Disorder Of The Skin And Subcutaneous Tissue Uns pecified 01/26/2022 Dry Eye Syndrome Right 01/26/2022 Dyslipidemia 01/26/2022 Fatigue 01/26/2022 Fatty Liver 01/26/2022 Gastroesophageal Reflux Disease 01/26/2022 Generalized Enlarged Lymph Nodes 01/26/2022 Hereditary And Idiopathic Neuropathy Unspecified 01/26/2022 Hyperlipidemia 01/26/2022 Microscopic Colitis Unspecified 01/26/2022 Nonrheumatic Aortic Valve Insufficiency 01/27/20 22 Osteoporosis 10/26/2020 Social History Tobacco Use Types Packs/Day Years [...] 01/24/2022 How often do you attend chur or hoahaoism services? Never 01/24/2022 Do you belong to any clubs o r organizations such as tenriism groups, unions, fraternal or athletic groups, or [...] and heating? Not hard at all 09/02/2022 [facility] - Occupational Stress [...] money to buy more. Never true 02/17/20 23 Within the past 12 months, t he [...] your living situation today? I have a [facility] place to live 02/16/2023 Education Answer Date Recorded What is the highest level of school you have completed or the highest degree you have received? Bachelor's degree (e.g., BA, AB, BS) 01/24/2022 Sex and Gender Information Value Date Recorded Sex Assigned at Female 01/24/2022 7:37 PM PUBLIC INFORMATION OFFICER Gender Identity Female 01/24/2022 7:37 PM PUBLIC INFORMATION OFFICER Sexual Orientation Straight 01/24/2022 7: 37 PM PUBLIC INFORMATION OFFICER Last Filed Vital Signs Vital Sign Reading Time Taken Comments Blood Pressure 107/64 04/13/2023 3:31 PM PUBLIC INFORMATION OFFICER Pulse 64 04/13/2023 3:31 PM PUBLIC INFORMATION OFFICER Temperature 37 ??C (98.6 ??F) 04/13/2023 3:31 PM PUBLIC INFORMATION OFFICER Respiratory Rate 18 04/13/2023 3:31 PM PUBLIC INFORMATION OFFICER Oxygen Saturation 98% 04/13/2023 3:31 PM PUBLIC INFORMATION OFFICER Inhaled Oxygen Concentration - - Weight 57.7 kg (127 lb 3.3 oz) 04/14/2023 9:03 A M PUBLIC INFORMATION OFFICER Height 160 cm (5' 2.99) 04/13/2023 3:31 PM PUBLIC INFORMATION OFFICER Body Mass Index 22.54 04/13/2023 3:31 PM PUBLIC INFORMATION OFFICER Plan of Treatment Not on file Medical Devices Implanted Type Area Vault Maker Device Identifier Shelf Expiration Date Model / Serial / Lot Hardware E.G. Pins/Screws/Ro ds Hardware e.g. pins/screws/r ods Mouth Procedures Procedure Name Priority Date/Time Associated Diagnosis Comments DERMATOLOGY IMAGE EXAM Routine 04/14/2023 12:05 AM PUBLIC INFORMATION OFFICER DERMATOLOGY IMAGE EXAM Routine 04/14/2023 12:00 AM PUBLIC INFORMATION OFFICER CT NECK SOFT TISSUE WITH IV CONTRAST RAD - Routine (most inpatients and all outpatients) 04/13/2023 10:36 AM PUBLIC INFORMATION OFFICER Squamous Cell Carcinoma Of Skin Of Scalp And Neck Malignant Neoplasm Of Neck Squamous Cell CT ABDOMEN PELVIS WITH IV CONTRAST RAD - Routine (most inpatients and all outpatients) 04/13/2023 10:36 AM PUBLIC INFORMATION OFFICER Squamous Cell Carcinoma Of Skin Of Scalp And Neck Malignant Neoplasm Of Neck Squamous Cell CT CHEST WITH IV CONTRAST RAD - Routine (most inpatients and all outpatients) 04/13/2023 10:36 AM PUBLIC INFORMATION OFFICER Squamous Cell Carcinoma Of Skin Of Scalp And Neck Malignant Neoplasm Of Neck Squamous Cell THYROID FUNCTION CASCADE, S Routine 04/13/2023 7:54 AM PUBLIC INFORMATION OFFICER Squamous Cell Carcinoma Of Skin Of Scalp And Neck Malignant Neoplasm Of Neck Squamous Cell Hypothyroidism Acquired CBC WITH DIFFERENTIAL, B Routine 04/13/2023 7:54 AM PUBLIC INFORMATION OFFICER Squamous Cell Carcinoma Of Skin Of Scalp And Neck Malignant Neoplasm Of Neck Squamous Cell COMPREHENSIVE METABOLIC PANEL, S/P Routine 04/13/2023 7:54 AM PUBLIC INFORMATION OFFICER Squamous Cell Carcinoma Of Skin Of Scalp And Neck Malignant Neoplasm Of Neck Squamous Cell C. DIFFICILE TOXIN PCR, F Routine 03/23/2023 4:00 PM PUBLIC INFORMATION OFFICER Diarrhea from Last 3 Months Results * Scalp 502-Dermatology Image Exam (04/14/2023 12:05 AM PUBLIC INFORMATION OFFICER) Only the most recent of2 resultswithin the time period is included. Narrative IIMS - 04/14/2023 4:07 PM PUBLIC INFORMATION OFFICER This order has been created and auto-finalized to support the import of images acquired without order. The clinical documentation to support these images can be found on the encounter that produced images. Provider Not In System IMG NON RAD IMAGI NG PROCEDURES IIMS NA * CT Abdomen Pelvis with IV Contrast (04/13/2023 10:36 AM PUBLIC INFORMATION OFFICER) Anatomical Region Laterality Modality Abdomen, Pelvis, Abdominal R ST LOS, Abdominal ARZ LOS, Abdominal FLA LOS N/A Computed Tomograp hy, Computed Tomography 04/13/2023 10:2 1 AM PUBLIC INFORMATION OFFICER Impressions 04/13/2023 10:33 AM PUBLIC INFORMATION OFFICER No evidence for metastatic disease in the abdomen or pelvis. Narrative 04/13/2023 10:33 AM PUBLIC INFORMATION OFFICER EXAM: ??CT ABDOMEN PELVIS WITH IV CONTRAST [...] in the abdomen or pelvis. Blanche Monzon P.A.-C. M.S. IMG CT P ROCEDURES * CT Chest with IV Contrast (04/13/2023 10:36 AM PUBLIC INFORMATION OFFICER) Anatomical Region Laterality Modality Chest, Thoracic RST LOS, Tho racic ARZ LOS, Thoracic ARZ LOS, Thoracic FLA LOS N/A Computed Tomography, Compute d Tomography 04/13/2023 10:2 2 AM PUBLIC INFORMATION OFFICER Impressions 04/13/2023 12:54 PM PUBLIC INFORMATION OFFICER Stable exam including tiny pulmonary nodules. Narrative 04/13/2023 12:54 PM PUBLIC INFORMATION OFFICER EXAM: CT CHEST WITH IV CONTRAST COMPARISON: [...] Tissue with IV Contrast (04/13/2023 10:36 AM PUBLIC INFORMATION OFFICER) Anatomical Region Laterality Modality Neck, Neuroradiology RST LOS , Neuroradiology ARZ LOS, Neuroradiology FLA LOS N/A Computed Tomography, Compute d Tomography 04/13/2023 10:2 2 AM PUBLIC INFORMATION OFFICER Impressions 04/13/2023 11:06 AM PUBLIC INFORMATION OFFICER Stable exam since 01/11/2023. Nothing for residual/recurrent squamous cell carcinoma. Narrative 04/13/2023 11:06 AM PUBLIC INFORMATION OFFICER EXAM: CT NECK SOFT TISSUE WITH IV CONTRAST COMPARISON: [place] soft tissue neck CT with IV contrast [...] within the lung apices. Bilateral cataract surgery. [id number] generalized cerebral and cerebellar volume loss. Remainder normal. Procedure Note Philip Birmingham M.D., Ph.D. - 04/13/2023 EXAM: CT NECK SOFT TISSUE WITH IV CONTRAST COMPARISON: [place] soft tissue neck CT with IV contrast [...] gland.Scarring within the lung apices. Bilateral cataract surgery.[id number] generalized cerebral and cerebellar volume loss. Remainder normal. IMPRESSION: Stable exam since 01/11/2023. Nothing for residual/recurrent squamous cellcarcinoma. Blanche Monzon P.A.-C., M.S. IMG CT P ROCEDURES * Thyroid Function [place] (04/13/2023 7:54 AM PUBLIC INFORMATION OFFICER) Pathologist [facility] TSH, Sensitive 3.4 0.3 - 4.2 mIU/L 04/13/2023 9:00 AM PUBLIC INFORMATION OFFICER DTL Blood (Blood, Venous) 04/13/2023 7:54 AM PUBLIC INFORMATION OFFICER 04/13/2023 8:28 AM PUBLIC INFORMATION OFFICER Karina Garcia APRN, C.N.P., M.S.N. LAB BLOOD ADD-ON [facility] [address] [place] [address], [facility] [address] [place] [address] * (ABNORMAL) CBC with Differential, Blood (04/13/2023 7:54 AM PUBLIC INFORMATION OFFICER) Pathologist [facility] Hemoglobin 13.0 11.6 - 15.0 g/dL 04/13/2023 8:32 AM PUBLIC INFORMATION OFFICER DTL Hematocrit 38.7 35.5 - 44.9 % 04/13/2023 8:32 AM PUBLIC INFORMATION OFFICER DTL Erythrocytes 4.43 3.92 - 5.13 x10(12)/L 04/13/2023 8:32 AM PUBLIC INFORMATION OFFICER DTL MCV 87.4 78.2 - 97.9 fL 04/13/2023 8:32 AM PUBLIC INFORMATION OFFICER DTL RBC Distrib Width 12.3 12.2 - 16.1 % 04/13/2023 8:32 AM PUBLIC INFORMATION OFFICER DTL Platelet Count 286 157 - 371 x10(9)/L 04/13/2023 8:32 AM PUBLIC INFORMATION OFFICER DTL Leukocytes 4.2 3.4 - 9.6 x10(9)/L 04/13/2023 8:32 AM PUBLIC INFORMATION OFFICER DTL Neutrophils 2.63 1.56 - 6.45 x10(9)/L 04/13/2023 8:32 AM PUBLIC INFORMATION OFFICER PM Lymphocytes 0.87(L) 0.95 - 3.07 x10(9)/L 04/13/2023 8:32 AM PUBLIC INFORMATION OFFICER DTL Monocytes 0.39 0.26 - 0.81 x10(9)/L 04/13/2023 8:32 AM PUBLIC INFORMATION OFFICER DTL Eosinophils 0.23 0.03 - 0.48 x10(9)/L 04/13/2023 8:32 AM PUBLIC INFORMATION OFFICER DTL Basophils 0.04 0.01 - 0.08 x10(9)/L 04/13/2023 8:32 AM PUBLIC INFORMATION OFFICER DTL Blood (Blood, Venous) 04/13/2023 7:54 AM PUBLIC INFORMATION OFFICER 04/13/2023 8:18 AM PUBLIC INFORMATION OFFICER Blanche Monzon P.A.-C., M.S. LAB BLOO D ADD-ON [facility] [address] [place] [address], [facility] DTL [facility] [address] [place], [place] [phone] [place] [address] [address] [place] [address] * Comprehensive Metabolic Panel (04/13/2023 7:54 AM PUBLIC INFORMATION OFFICER) [facility] Potassium, S 4.3 3.6 - 5.2 mmol/L 04/13/2023 9:00 AM PUBLIC INFORMATION OFFICER DTL Sodium, S 139 135 - 145 mmol/L 04/13/2023 9:00 AM PUBLIC INFORMATION OFFICER DTL Chloride, S 102 98 - 107 mmol/L 04/13/2023 9:00 AM PUBLIC INFORMATION OFFICER DTL Bicarbonate, S 26 22 - 29 mmol/L 04/13/2023 9:00 AM PUBLIC INFORMATION OFFICER DTL Anion Gap 11 7 - 15 04/13/2023 9:00 AM PUBLIC INFORMATION OFFICER DTL BUN (Blood Urea Nitrogen), S 14 6 - 21 mg/dL 04/13/2023 9:00 AM PUBLIC INFORMATION OFFICER DTL Creatinine 0.76 0.59 - 1.04 mg/dL 04/13/2023 9:00 AM PUBLIC INFORMATION OFFICER DTL Estimated GFR (eGFR) 81 >=60 mL/min/BS A 04/13/2023 9:00 AM PUBLIC INFORMATION OFFICER DTL Comment: Estimated GFR calculated using the 2020 CKD_EPI creatinine equation. Calcium, Total, S 9.4 8.8 - 10.2 mg/dL 04/13/2023 9:00 AM PUBLIC INFORMATION OFFICER DTL Glucose, S 95 70 - 140 mg/dL 04/13/2023 9:00 AM PUBLIC INFORMATION OFFICER DTL Protein, Total, S 6.4 6.3 - 7.9 g/dL 04/13/2023 9:00 AM PUBLIC INFORMATION OFFICER DTL Albumin, S 4.2 3.5 - 5.0 g/dL 04/13/2023 9:00 AM PUBLIC INFORMATION OFFICER DTL Aspartate Aminotransferase (AST), S 36 8 - 43 U/L 04/13/2023 9:00 AM PUBLIC INFORMATION OFFICER DTL Alkaline Phosphatase, S 97 35 - 104 U/L 04/13/2023 9:00 AM PUBLIC INFORMATION OFFICER DTL Alanine Aminotransferase (ALT), S 23 7 - 45 U/L 04/13/2023 9:00 AM PUBLIC INFORMATION OFFICER DTL Bilirubin, Total, S 0.3 0.0 - 1.2 mg/dL 04/13/2023 9:00 AM PUBLIC INFORMATION OFFICER DTL Blood (Blood, Venous) 04/13/2023 7:54 AM PUBLIC INFORMATION OFFICER 04/13/2023 8:28 AM PUBLIC INFORMATION OFFICER Blanche Monzon P.A.-C. M.S. LAB BLOO D ADD-ON [facility] [address] [place], [place] [address] [address] [place] [address] * (ABNORMAL) Clostridioides (Clostridium) Difficile Toxin, Molecular Detection, PCR, Feces (03/23/2023 4:00 PM PUBLIC INFORMATION OFFICER) C. difficile Toxin, F Positive( A) Negative 03/23/2023 5:47 PM PUBLIC INFORMATION OFFICER DTL Semi-Urgent This is a semi-urge nt result(RUSHING ) [facility] Stool (Stool) 03/23/2023 4:0 0 PM PUBLIC INFORMATION OFFICER 03/23/2023 4:53 PM PUBLIC INFORMATION OFFICER Davon Mike M.D. 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
--- OUTSIDE RECORDS SUMMARY | 2023-04-17 11:44 | XMS_ITS ---
Author Name Unknown Organization [facility] Address [address] [place] [address] Care Team Providers Care Brick Washer Name Role Phone Unavailable Unavailable Unavailable Surgery Details Not on file Complications Check Surgery Details section. Procedure Estimated Blood Loss Check Surgery Details section. Procedure Findings Check Surgery Details section. Procedure Specimens Taken Check Surgery Details section.
--- OUTSIDE RECORDS SUMMARY | 2023-04-17 11:45 | XMS_ITS | Encounter Summary ---
Author Name Unknown Organization [facility] Address [address] [place] [address] Care Team Providers Care Cargo Agent Name Role Phone Elsewhere, Pcp Primary Care Provider Unavailabl e Reason for Referral * Outpatient (Routine) - Authorized Specialty Diagnoses / Procedures Referred By Contac t Referred To Contact Dermatology Patsy Lentz M.D. [address] [place] [address] [facility] Referral ID Status Reason Start Date Expiration Date V isits Requested Visits Authorized [id number] Authorized 04/14/2023 10/13/2024 1 1 FENCE ERECTOR * Outpatient (Routine) - Authorized Specialty Diagnoses / Procedures Referred By Contac t Referred To Contact Dermatology Patsy Lentz M.D. [address] [place] [address] [facility] Referral ID Status Reason Start Date Expiration Date V isits Requested Visits Authorized [id number] Authorized 04/14/2023 10/13/2024 1 1 FENCE ERECTOR Reason for Visit * Outpatient (Routine) - Closed Specialty Diagnoses / Procedures Referred By Contac t Referred To Contact Dermatology Diagnoses Malignant Neoplasm Of Neck Squamous Cell Mc Mcknight M.D., Ph.D. [address] [place] [address] [facility] Referral ID Status Reason Start Date Expiration Date Visits Re quested Visits Authorized [id number] Closed 04/13/2023 10/12/2024 1 1 Encounter Details Date Type Department Care Team (Latest Contact Info) Description 04/14/2023 1:00 PM SNOW FENCE ERECTOR Comprehensive Visit Department of Dermatology in [place], [place] [address] [place] [phone] Patsy Lentz M.D. [address] [place] [phone] Tumor Skin Uncertain Behavior (Primary Dx); Malignant Neoplasm Of Neck Squamous Cell; Nevi Multiple; Dermatoheliosis; Keratosis Seborrheic; Dermatitis Social History Tobacco Use Types Packs/Day Years Used Date Smoking Tobacco: Never Smokeless Tobacco: Never Alcohol Use Standard Drinks/Week Comments Not Currently [...] often do you attend chur ch or samaritan services? Never 01/24/2022 Do you belong to any clubs o r organizations such as adventism groups, unions, fraternal or athletic groups, or [...] and heating? Not hard at all 09/02/2022 [facility] - Occupational Stress Questionnaire Answer Date Recorded [...] your living situation today? I have a [facility] place to live 02/16/2023 Education Answer Date Recorded What is the highest level of school you have completed or the highest degree you have received? Bachelor's degree (e.g., BA, AB, BS) 01/24/2022 Sex and Gender Information Value Date Recorded Sex Assigned at Female 01/24/2022 7:37 PM SNOW FENCE ERECTOR Gender Identity Female 01/24/2022 7:37 PM SNOW FENCE ERECTOR Sexual Orientation Straight 01/24/2022 7: 37 PM SNOW FENCE ERECTOR documented as of this encounter Consult Notes * Patsy Lentz M.D. - 04/14/2023 1:00 PM CST SUBJECTIVE CHIEF COMPLAINT / REASON FOR VISIT Lesions/full body skin exam HISTORY OF PRESENT ILLNESS Ms. Veronica Guevara is a 77 y.o. female who presents today for a skin cancer screening examination. She was seen by Dr. Pimentel on 03/23/23 for dermatitis of the gluteal cleft and seborrheic dermatitis. She notes that she is applying hydrocortisone 2.5% cream mixed with ketoconazole 2% cream to both of these areas without significant improvement. They are worried about a persistent area of redness on the left eyebrow. She uses ketoconazole 2% shampoo to her scalp. 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 She is following with Oncology. CT neck, abdomen/pelvis, and chest were negative for metastasis or recurrent disease. Her last full body skin exam was 12/2022 at which time actinic keratosis were treated. She also reports she has a history of lichen planopilaris and tinea versicolor Allergies Allergen Reactions Penicillins Other (see comments) Family History of allergy but has never taken herself. Patient tolerated Duricef Pollen Extracts Itching Sulfa (Sulfonamide Antibiotics) Other (see comments) OBJECTIVE VITAL SIGNS There were no vitals taken for this visit. PHYSICAL EXAMINATION General: Awake, alert, in no acute distress, and with appropriate affect. Skin: I have examined the scalp, face, neck, chest, abdomen, back, bilateral upper extremities, andbilateral lower extremities, and buttocks. - Scalp with well healed scar, no nodularity or pain - Left parietal scalp with ill defined adherent scaly plaque- biopsy - Left lateral eyebrow with ill defined erythematous patch- biopsy - Left 4th toe with well demarcated cystic papule - Bilateral axilla with hyperpigmented oval macules -superior aspect of gluteal cleft with well-demarcated erythematous scaly plaque - Background dermatoheliosis - Red dome shaped papules, wall-brown stuck on papules, and even colored brown macules and papules without concerning features on dermoscopy on trunk and extremities ASSESSMENT / PLAN #1 Skin tumor of uncertain behavior, left parietal scalp- seborrheic dermatitis vs squamous cell carcinoma #2 Skin tumor of uncertain behavior, left eyebrow- unresponsive to seborrheic dermatitis treatment - although these areas appear most consistent with seborrheic dermatitis, given history of poorly differentiated squamous cell carcinoma of the scalp and lack of response to topical treatments, jointdecision made to biopsy today for further evaluation and to confirm diagnosis Photographs obtained. Shave biopsy performed. PROCEDURAL PAUSE Prior to the procedure, final verification of the patient identity and correct marked surgical sitewas performed. SHAVE BIOPSY PROCEDURE: The anesthesia used was 1% lidocaine with epinephrine 1:200,000. The skin was prepped in a sterile fashion with alcohol. A shave biopsy specimen was obtained from left parietal scalp. Blood loss: Minimal. Complications: None. Wound care: Routine. The specimen was sent for Dermatopathology. The pathology report and recommendations will be communicated to the patient. Photographs obtained. Punch biopsy performed. PROCEDURAL PAUSE Prior to the procedure, final verification of the patient identity and correct marked surgical sitewas performed. PUNCH BIOPSY PROCEDURE: The anesthesia used was 1% lidocaine with epinephrine 1:200,000. The skin was prepped in a sterile fashion with alcohol. A specimen from the left eyebrow was excised in a circular fashion through thefull thickness of the dermis into the fat using a 3-mm disposable punch. The skin was approximated with 4-0 nylon skin sutures, to be removed in approximately. days. Blood loss: Minimal. Complications: None. Wound care: Routine. A specimen was sent to Dermatopathology. The report and recommendations will be communicated to the patient. # Dermatoheliosis # History of non-melanoma skin cancer- squamous cell carcinoma of vertex scalp with lymph node involvement, s/p radiotherapy- no tumor relapse on recent imaging, following with oncology Sun protection and sun avoidance were reviewed with the patient. Education was provided regarding the warning signs and symptoms of skin cancer, and the proper use of sunscreens SPF30+. I would recommend a full skin cancer screening examination with an appropriately trained clinician every 6 months. # Banal-appearing nevi None of the patient's nevi reach the clinical threshold for biopsy. I recommend continued sun protection, self-skin examinations, and observation. Should any of the patient's nevi change in size, color, texture, or shape or develop symptoms such as itching or bleeding, I recommend an immediate return visit for reassessment. #Dermatitis, gluteal cleft - Increase strength of hydrocortisone 2.5% to triamcinolone 0.1% cream. Mixed with ketoconazole 2% cream. Continue to apply barrier creams. - however, given persistent nature, would recommend biopsy and possible culture at next visit for further evaluation if not improved #Likely digital mucus cyst, left 4th toe - Patient notes that she is following with ortho who wishes to monitor the area; last seen April2022 # Seborrheic keratoses # Piña angiomas # Solar lentigines The benign nature of the skin lesion(s) was discussed with the patient. No treatment is required. Irecommend continued observation. Should symptoms or changes develop related to this condition, I would recommend a return visit for reassessment. Follow up: Pending biopsy results, routine full-body skin exams and sooner as needed; warning signsof concerning lesions discussed including new, rapidly growing, bleeding, painful, or changing lesions All questions answered. INFORMED CONSENT Discussed the risks, benefits, alternatives, and the necessity of other members of the healthcare team participating in the procedure. All questions answered and consent given. Patsy Lentz M.D. 04/14/2023 FENCE ERECTOR documented in this encounter Plan of Treatment Pending Results Name Type Priority Associated Diagnoses Date /Time Dermatopathology Pathology and Cytology Routine Malignant Neoplasm Of Neck Squamous Cell 04/14/2023 1:21 PM SNOW FENCE ERECTOR Scheduled Orders Name Type Priority Associated Diagnoses Orde r Schedule Dermatopathology Pathology and Cytology Routine Malignant Neoplasm Of Neck Squamous Cell Release Upon Ordering for 1 Occurrences starting 04/14/2023 until 04/23/2023 Scheduled Referrals Name Type Priority Associated Diagnoses Order Schedule Dermatology office visit (clinic) Outpatient Referral Routine Expected: 10/13/2023 (Approximate), Expires: 07/12/2024 Dermatology office visit (clinic) Outpatient Referral Routine Expected: 10/13/2023 (Approximate), Expires: 07/12/2024 documented as of this encounter Visit Diagnoses Diagnosis Tumor Skin Uncertain Behavior- Primary Malignant Neoplasm Of Neck Squamous Cell Nevi Multiple Dermatoheliosis Keratosis Seborrheic Dermatitis documented in this encounter Care Teams Cargo Agent Relationship Specialty Start Date End Date Elsewhere, Pcp PCP - General Family Medicine 02/01/22 documented as of this encounter
--- OUTSIDE RECORDS SUMMARY | 2023-04-17 11:45 | XMS_ITS | Encounter Summary ---
Author Name Unknown Organization [facility] Address [address] [place] [id number] Care Team Providers Care Account Developer Name Role Phone Elsewhere, Pcp Primary Care Provider Unavailabl e Reason for Visit * Reason Onset Date Comments Pre-visit Intake 03/21/2023 Encounter Details Date Type Department Care Team (Latest Contact Info) Description 03/21/2023 10:30 AM PARTS LISTER Clinical Communication Virtual Review in [place], [place] [address] [place], [place] [phone] Pre-visit Intake Social History Tobacco Use Types Packs/Day Years [...] often do you attend chur ch or church services? Never 01/24/2022 Do you belong to any clubs o r organizations such as roman catholic groups, unions, fraternal or athletic groups, or [...] and heating? Not hard at all 09/02/2022 [facility] - Occupational Stress Questionnaire Answer Date [...] your living situation today? [facility] have a [facility] place to live 02/16/2023 Education Answer Date Recorded What is the highest level of school you have completed or the highest degree you have received? Bachelor's degree (e.g., BA, AB, BS) 01/24/2022 Sex and Gender Information Value Date Recorded Sex Assigned at Female 01/24/2022 7:37 PM PARTS LISTER Gender Identity Female 01/24/2022 7:37 PM PARTS LISTER Sexual Orientation Straight 01/24/2022 7: 37 PM PARTS LISTER documented as of this encounter Plan of Treatment Not on file documented as of this encounter Visit Diagnoses Not on filedocumented in this encounter Care Teams Account Developer Relationship Specialty Start Date End Date Elsewhere, Pcp PCP - General Family Medicine 02/01/22 documented as of this encounter
--- OUTSIDE RECORDS SUMMARY | 2023-04-17 11:45 | XMS_ITS | Encounter Summary ---
Author Name Unknown Organization [facility] Address [address] [place] [address] Care Team Providers Care Pasting Inspector Name Role Phone Elsewhere, Pcp Primary Care Provider Unavailabl e Reason for Referral * Outpatient (Routine) - Authorized Specialty Diagnoses / Procedures Referred By Contac t Referred To Contact Radiation Oncology Tammie Hooks M.D., Ph.D. [address] [place] [phone] [facility] Referral ID Status Reason Start Date Expiration Date V isits Requested Visits Authorized [id number] Authorized 04/14/2023 10/13/2024 1 1 Scheduling Instructions Please schedule with Dr. Bruner's appts and CT, end of July to coincide when I am back. OLOGIC TECHNICIAN * MRI/CAT/PET Scan (Routine) - Authorized Specialty Diagnoses / Procedures Referred By Contac t Referred To Contact Radiology Diagnoses Squamous Cell Carcinoma Of Skin Of Scalp And Neck Procedures MR Brain without and with IV Contrast Tammie Hooks M.D., Ph.D. [address] [place] [phone] [facility] Referral ID Status Reason Start Date Expiration Date V isits Requested Visits Authorized [id number] Authorized 04/14/2023 04/13/2024 1 1 OLOGIC TECHNICIAN * Outpatient (Routine) - Closed Specialty Diagnoses / Procedures Referred By Contac t Referred To Contact Radiation Oncology GenevaKarina APRN, C.N.P., M.S.N. [address] [place] [phone] Tammie Hooks M.D., Ph.D. [address] [place] [phone] Referral ID Status Reason Start Date Expiration Date Visits Re quested Visits Authorized [id number] Closed 01/11/2023 01/10/2026 1 1 Scheduling Instructions Schedule after imaging and Med Onc appt please. OLOGIC TECHNICIAN Reason for Visit * Outpatient (Routine) - Closed Specialty Diagnoses / Procedures Referred By Ryan cronin Referred To Contact Radiation Oncology GenevaKarina APRN, C.N.P., M.S.N. [address] [place] [phone] Tammie Hooks M.D., Ph.D. [address] [place] [phone] Referral ID Status Reason Start Date Expiration Date Visits Re quested Visits Authorized [id number] Closed 01/11/2023 01/10/2026 1 1 Encounter Details Date Type Department Care Team (Latest Contact Info) Description 04/14/2023 8:36 AM RADIOLOGIC TECHNICIAN - 04/14/2023 2:43 PM RADIOLOGIC TECHNICIAN Hospital Encounter Department of Radiation Oncology in [place], [place] [address] [place] [phone] Tammie Hooks M.D., Ph.D. [address] [place] [phone] Squamous Cell Carcinoma Of Skin Of Scalp And Neck (Primary Dx) Social History Tobacco Use Types Packs/Day Years [...] often do you attend chur ch or mormon services? Never 01/24/2022 Do you belong to any clubs o r organizations such as restorationist groups, unions, fraternal or athletic groups, or [...] and heating? Not hard at all 09/02/2022 [facility] of Occupat ional Health - Occupational Stress [...] your living situation today? I have a [facility] place to live 02/16/2023 Education Answer Date Recorded What is the highest level of school you have completed or the highest degree you have received? Bachelor's degree (e.g., BA, AB, BS) 01/24/2022 Sex and Gender Information Value Date Recorded Sex Assigned at Female 01/24/2022 7:37 PM RADIOLOGIC TECHNICIAN Gender Identity Female 01/24/2022 7:37 PM RADIOLOGIC TECHNICIAN Sexual Orientation Straight 01/24/2022 7: 37 PM RADIOLOGIC TECHNICIAN documented as of this encounter Last Filed Vital Signs Vital Sign Reading Time Taken Comments Blood Pressure - - Pulse - - Temperature - - Respiratory Rate - - Oxygen Saturation - - Inhaled Oxygen Concentration - - Weight 57.7 kg (127 lb 3.3 oz) 04/14/2023 9:03 A M RADIOLOGIC TECHNICIAN Height - - Body Mass Index 22.54 04/13/2023 3:31 PM RADIOLOGIC TECHNICIAN documented in this encounter Medications at Time of Discharge Medication Sig Dispensed Refills Start Date End Date fidaxomicin (DIFICID) 200 mg tabletIndications: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 Once you have completed the first 5 days, skip Day 6. Restart treatment on Day 7, take 1 tablet every other day until you finish the doses. 20 tablet 0 03/24/2023 hydrocortisone 2.5 % ointmentIndications:D ermatitis Mix with the ketoconazole and apply twice daily for up to 2 weeks as a time for flares of rash involving the buttocks, under the breast, or on the face. 30 g 11 03/23/2023 ketoconazole (NIZORAL) 2 % creamIndications:Derm atitis Seborrheic Apply 1 Application topically 2 (two) times a day as needed for rash or irritation. Apply to red, itchy areas on the central face and eyebrows as well as over the supragluteal cleft 60 g 11 12/21/2022 ketoconazole (NIZORAL) 2 % shampoo Apply 1 Application topically 3 (three) times a week. Apply to damp skin, lather, leave on 5 minutes, and rinse 120 mL 11 03/24/2023 levothyroxine (Synthroid) 50 mcg tablet Take 1 tablet (50 mcg total) by mouth daily. 90 tablet 1 03/02/2023 08/29/2023 methylcellulose, laxative, (CITRUCEL) 500 mg tablet Take by mouth daily. Heaping tablespoon in water once daily 0 neomycin-polymyxin B-dexameth (MAXITROL) 3.5 mg/g-10,000 unit/g-0.1 % ophthalmic ointment Apply to left eye as needed. 0 01/09/2023 rosuvastatin (CRESTOR) 10 mg tablet Take 10 mg by mouth at bedtime. 0 triamcinolone (KENALOG) 0.1 % creamIndications:Derm atitis Apply twice daily as needed to areas of rash on buttocks 30 g 0 04/14/2023 ubiquinone (COENZYME Q10) 100 mg tablet Take 100 mg by mouth daily. 0 12/22/2021 UNABLE TO FIND Take 1 each by mouth daily. Med Name: Collagen powder, 1 scoop every morning with cereal 0 documented as of this encounter Progress Notes * Tammie Hooks M.D., Ph.D. - 04/14/2023 9:15 AM CST SUBJECTIVE REQUESTING PROVIDER Karina Garcia APRN C.N.P., M.S.N. CHIEF COMPLAINT/REASON FOR VISIT There were no encounter diagnoses. INTERVAL HISTORY: Mrs. Veronica Guevara is a 77 y.o. female from [facility] who returns to radiationoncology clinic today for follow up she is currently on active surveillance. Veronica is doing very well in terms of head and neck symptoms. She reports sometimes having zingers in her left neck and sometimes right but otherwise good range of motion and lymphedema has improved. She is most bothered by C. Diff, she took vancomycin and is now on fidaxomicin for it. Her scalp is still healed well and she is happy some hair is regrowing. She continues to have dry mouth but energy is pretty good. 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 Evaluated by hospital nursing assistant Dr. Banuelos in [place] and was treated for possible psoriasis. The lesion persisted after 6 weeks. She was then treated with UV phototherapy between September and December of 2021. September 22, 2021---December 17, 2021: Underwent biopsy of the vertex scalp lesion which revealed squamous cell carcinoma. Incisional biopsy of left level 5 lymph node also revealed squamous cell carcinoma. 12/30/2021 Biopsy/Pathology A. Skin, scalp, vertex, excisional biopsy ([id number]; 12/30/2021): Invasive poorly differentiated squamous cell carcinoma, transected at base and lateral edge of the specimen. B. Neck, left, soft tissue, biopsy ([id number]; 01/13/2022): Invasive poorly differentiated squamous cell carcinoma with abundant lymphoid tissue in the background, transected at the deep and lateral edges of the specimen. 01/25/2022 Critical Imaging FDG PET scan showed intensely FDG avid squamous cell carcinoma of the scalp at the vertex; bilateral lower occipital/level 5 oumou metastases; no additional FDG uptake concerning for metastatic disease. 01/28/[address] HEAD showed nodular enhancing mass (3.5 x 3 x 0.7 cm) over vertex of calvarium; no intracranial dural extension is observed; no abnormal parenchymal or leptomeningeal enhancement. 02/01/2022 Surgery and Procedures WIDE LOCAL EXCISION, scalp lesion. (Posterior) NECK DISSECTION. (Bilateral) A. Skin, midline parietal scalp, excision: Invasive poorly differentiated squamous cell carcinoma forming a 3.5 cm mass, 1.1 cm in depth. Lymphovascular invasion present. Perineural invasion not identified. Margins are negative for tumor. B. Soft tissue, left neck accessory nerve, biopsy: Fibroadipose tissue with inflammation and reactivate changes. No nerve identified. C. Lymph nodes, left levels IIA, III, IV, VA, and VB, with skin at VA, select neck dissection: Multiple (2 of 26) lymph nodes are involved by metastatic squamous cell carcinoma including lymph nodes at the following levels: 0 of 4 level IIA, 1 of 9 level III, 0 of 4 level IV, 1 of 7 level VA, and 0 of 2 level VB. The largest metastasis measures 2 cm. Extracapsular extension is present. Portion of skin with biopsy site changes. D. Lymph nodes, right levels VA and VB, select neck dissection: A single (1 of 3) lymph node is involved by metastatic squamous cell carcinoma, including lymph nodes at the following levels: 1 of 2 level VA, 0 of 1 level VB. The metastasis measures 0.9 cm. Extracapsular extension is not identified. 02/10/2022 - Radiation Therapy Radiation oncology consult: recommended PROTON beam radiotherapy at dose 66 Gy in 33 treatments to POST-OPERATIVE bed & bilateral neck 03/15/2022 - 04/29/2022 Radiation Therapy Radiation Therapy Treatment Details (03/21/2022 - 04/29/2022) Sites: Midline Scalp, Bilateral Head and Neck Technique: No technique specified Goal: Curative Planned Treatment Start Date: 03/15/2022 OBJECTIVE PHYSICAL EXAM General: Pleasant woman in no apparent distress Skin: Top of scalp has healed completely. No noted skin crusting, open areas or discoloration. No clinical evidence of recurrent squamous cell carcinoma on the scalp. ENT: Oral mucous membranes do appear slightly dry. No nasal drainage. Bilateral tympanic membranes visualized. No erythema. Lungs: Respirations are easy and nonlabored, no cough Neuro: CN II-XII intact. Mildly restricted range of movement in shoulders. No palpable lymph nodes.Gait is steady DIAGNOSTICS CT chest (04/13/23): personally reviewed, stable no new nodules CT AP (04/13/23): personally reviewed, large stool burden but no sign of metastatic disease CT neck (04/13/23): personally reviewed, no masses in neck, top of scalp not imaged. LABS 09/08/22: TSH: 12.2, T4 0.4 10/21/2022: TSH 3.6 01/11/2023: TSH 9.6 T4: 1.3 Thyroperoxidase Ab: <15.0 04/13/23: TSH 3.4 ASSESSMENT / PLAN #Squamous cell carcinoma of the scalp #Iatrogenic hypothyroidism #Thyroid nodule 77 y.o. woman with [id number] SqCC of the scalp vertex, 3.5 cm primary, 1.1 cm DOI, LVI+, PNI-, margin-, 2/26 LN on left with XIN, 1/3 LN on right XIN-. She completed 60 Gy to scalp and 60 Gy to bilateral necks (with 66 Gy/30 fx to two gross nodes), 54 Gy/ 30 fx to elective oumou radiation. She completed radiation treatment 04/29/2022. -Needs repeat thyroid US 01/27 or 01/28 -CHRISTINE clinically and by scan. No scan done of post-op bed, we discussed adding scan now but given this area can be clinically examined and looks great, I think it is ok to get MRI brain to evaluate atnext follow. -Follow up late 07/27, coincide with other appointments and get MRI brain -TSH within normal limits, no change to synthroid. Future recommendations: We discussed that we do recommend a follow up ultra-sound in 1-2 years (01/27 or 01/28 - this will need to be ordered closer to the due date) Mrs Guevara is agreeable to the above plan. She does have our contact information should she have any questions or concerns in the interim. EDUCATION Ready to learn, no apparent learning barriers were identified; learning preferences include listening. Explained diagnosis and treatment plan; patient expressed understanding of the content. I personally spent 25 minutes in care of the patient today. Time includes both [id number] patient care. Tammie Hooks MD PhD [employer]rofit Installer Heritage Consultant Radiation Oncology 04/14/23 2:43 PM RADIOLOGIC TECHNICIAN Pager: [phone] OLOGIC TECHNICIAN documented in this encounter Plan of Treatment Scheduled Orders Name Type Priority Associated Diagnoses Orde r Schedule MR Brain without and with IV Contrast Imaging RAD - Routine (most inpatients and all outpatients) Squamous Cell Carcinoma Of Skin Of Scalp And Neck Expected: 08/02/2023 (Approximate), Expires: 07/12/2024 Scheduled Referrals Name Type Priority Associated Diagnoses Order Schedule Radiation Oncology office visit (clinic) Outpatient Referral Routine Once for 1 Occurrences starting 04/14/2023 until 04/14/2023 Radiation Oncology office visit (clinic) Outpatient Referral Routine Expected: (Approximate), Expires: 07/12/2024 documented as of this encounter Visit Diagnoses Diagnosis Squamous Cell Carcinoma Of Skin Of Scalp And Neck- Primary documented in this encounter Care Teams Pasting Inspector Relationship Specialty Start Date End Date Elsewhere, Pcp PCP - General Family Medicine 02/01/22 documented as of this encounter
--- OUTSIDE RECORDS SUMMARY | 2023-04-17 11:45 | XMS_ITS | Encounter Summary ---
Author Name Unknown Organization [facility] Address [address] [place] [address] Care Team Providers Care Computer Systems Architect Name Role Phone Elsewhere, Pcp Primary Care Provider Unavailabl e Encounter Details Date Type Department Care Team (Late st Contact Info) Description 04/14/2023 Ancillary Procedure Department of Dermatology Arrived Social History Tobacco Use Types Packs/Day Years [...] often do you attend chur ch or gnosticist services? Never 01/24/2022 Do you belong to any clubs o r organizations such as yazidi groups, unions, fraternal or athletic groups, or [...] all 09/02/2022 [facility] of Occupat ional Health - Occupational Stress [...] your living situation today? I have a [facility] place to live 02/16/2023 Education Answer Date Recorded What is the highest level of school you have completed or the highest degree you have received? Bachelor's degree (e.g., BA, AB, BS) 01/24/2022 Sex and Gender Information Value Date Recorded Sex Assigned at Female 01/24/2022 7:37 PM FISH TECHNOLOGIST Gender Identity Female 01/24/2022 7:37 PM FISH TECHNOLOGIST Sexual Orientation Straight 01/24/2022 7: 37 PM FISH TECHNOLOGIST documented as of this encounter Plan of Treatment Not on file documented as of this encounter Procedures Procedure Name Priority Date/Time Associated Diagnosis Comments DERMATOLOGY IMAGE EXAM Routine 04/14/2023 12:00 AM FISH TECHNOLOGIST documented in this encounter Results * Eye Brow-Dermatology Image Exam (04/14/2023 12:00 AM FISH TECHNOLOGIST) Narrative [facility] - 04/14/2023 4:03 PM FISH TECHNOLOGIST This order has been created and auto-finalized to support the import of images acquired without order. The clinical documentation to support these images can be found on the encounter that produced images. Provider Not In System IMG NON RAD IMAGI NG PROCEDURES [facility] NA documented in this encounter Visit Diagnoses Not on filedocumented in this encounter Care Teams Computer Systems Architect Relationship Specialty Start Date End Date Elsewhere, Pcp PCP - General Family Medicine 02/01/22 documented as of this encounter
--- OUTSIDE RECORDS SUMMARY | 2023-04-17 11:45 | XMS_ITS | Encounter Summary ---
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 [address] [place] [phone] [facility] Referral ID Status Reason Start Date Expiration Date Visits Re quested Visits Authorized [id number] Closed 12/21/2022 12/20/2025 1 1 Encounter Details Date Type Department Care Team (Late st Contact Info) Description 03/23/2023 11:20 AM SHAKE CUTTER Office Visit Department of Dermatology in [place], [place] [address] [place] [phone] Aditya Pimentel M.D., M.B.A. 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 Never 01/24/2022 Do you belong to any clubs o r organizations such as hindu groups, unions, fraternal or athletic groups, or [...] and heating? Not hard at all 09/02/2022 [facility] of Occupat ional Health - Occupational Stress [...] your living situation today? I have a [facility] place to live 02/16/2023 Education Answer Date Recorded What is the highest level of school you have completed or the highest degree you have received? Bachelor's degree (e.g., BA, AB, BS) 01/24/2022 Sex and Gender Information Value Date Recorded Sex Assigned at Female 01/24/2022 7:37 PM SHAKE CUTTER Gender Identity Female 01/24/2022 7:37 PM SHAKE CUTTER Sexual Orientation Straight 01/24/2022 7: 37 PM SHAKE CUTTER documented as of this encounter Patient Instructions * Patient Instructions* Aditya Pimentel M.D., M.B.A. - 03/23/2023 11:20 AM SHAKE CUTTER # Likely irritant contact dermatitis, gluteal cleft She will continue to avoid wet wipes over this area. This area is likely also aggravated by her frequent stools from microscopic colitis. She will restart the following plan: Mix ketoconazole 2% cream and hydrocortisone 2.5% cream (in a 1:1 ratio) and apply this over the area, then cover with Zinc oxide barrier cream (20% or 40%, Desitin) After using the restroom, re-apply the Desitin zinc oxide barrier cream # Seborrheic dermatitis Patient's scalp and eyebrows appear(s) consistent with seborrheic dermatitis. This is a very commonskin condition that causes a rash with flaking and itching. Skin involved by seborrheic dermatitis tends to have red color, greasy appearance, and white or yellow crusty scale on the surface. Many factors contribute to the development of seborrheic dermatitis, including the yeast that normally lives on our skin, genetic predisposition, living in a cold or dry climate, stress, and overall personalhealth. Seborrheic dermatitis is a chronic condition that comes and goes. Use ketoconazole 2% shampoo (we have provided you with this prescription - also available [id number] by the brand [employer]), alternating with khyu-ihk-yatzmzc anti-dandruff shampoos [such as Head and Shoulders (pyrithione zinc), Selsun Blue (selenium sulfide), Neutrogena T/Eduardo (salicylic acid), Neutrogena T/Gel (coal tar)], as face wash. If possible, leave shampoo on the skin for 1-5 minutesbefore rinsing. Suggest daily washing, if possible. For the eyebrows -- you can also apply that same 1:1 mixture hydrocortisone 2.5% cream & ketoconazole 2% cream twice daily to involved areas of the face. # History of intertrigo, inframmary region If this recurs, you can also apply that same 1:1 mixture hydrocortisone 2.5% cream & ketoconazole 2% cream twice daily to involved areas under the breast. E CUTTER documented in this encounter Consult Notes * Aditya Pimentel M.D., M.B.A. - 03/23/2023 11:20 AM CST Correspondence to Aditya Pimentel M.D., M.B.A. CHIEF COMPLAINT / REASON FOR VISIT Follow-up for dermatitis involving supragluteal cleft plus other concerns HISTORY OF PRESENT ILLNESS Ms. Veronica Guevara is a 77 y.o. female who presents today for the above. 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 She was last seen on 12/21/2022 for a skin check -- at that time, she was noted to have likely irritant contact dermatitis involving the supragluteal cleft. The plan at that time was 1:1 mixture of ketoconazole 2% cream & hydrocortisone 2.5% cream to be applied BID to the affected area of the gluteal cleft, then applied over the top with 20% to 50% zinc oxide cream (Desitin). She would also use this Desitin after using the restroom. Today she states that she would like us to examine her scalp as well as her lymph nodes. She has not been using the treatments for the rash involving the buttocks. She is also concerned about a rash involving the scalp and eyebrows. She also reports a history of intertrigo involving the inframammary area. PHYSICAL EXAM General: Awake, alert, in no acute distress, and with appropriate affect. Skin: I have examined the scalp, face, neck, gluteal cleft per patient request. She has a dermatitic appearing patch with a very superficial ulceration on the supragluteal cleft. She has a well-healed scar on the scalp consistent with prior surgery without evidence of recurrence. Involving the scalp and eyebrows, there is seborrheic dermatitis. Heme: No cervical, submental, or posterior occipital lymphadenopathy. ASSESSMENT / PLAN # History of metastatic invasive differentiated squamous cell carcinoma involving the scalp Sun protection and sun avoidance were reviewed with the patient. Educational materials were provided regarding skin self-examination, the warning signs and symptoms of skin cancer, and the proper useof sunscreens. I would recommend a full skin cancer screening examination with an appropriately trained clinician every year. She continues to follow with Radiation Oncology and Medical Oncology for active surveillance. # Likely irritant contact dermatitis, gluteal cleft She will continue to avoid wet wipes over this area. This area is likely also aggravated by her frequent stools from microscopic colitis. She will restart the following plan: Mix ketoconazole 2% cream and hydrocortisone 2.5% cream (in a 1:1 ratio) and apply this over the area, then cover with Zinc oxide barrier cream (20% or 40%, Desitin) After using the restroom, re-apply the Desitin zinc oxide barrier cream Follow-up in 3 months. Is still irritated at that time, would obtain swabs for bacteria and fungus. # Seborrheic dermatitis Patient's scalp and eyebrows appear(s) consistent with seborrheic dermatitis. This is a very commonskin condition that causes a rash with flaking and itching. Skin involved by seborrheic dermatitis tends to have red color, greasy appearance, and white or yellow crusty scale on the surface. Many factors contribute to the development of seborrheic dermatitis, including the yeast that normally lives on our skin, genetic predisposition, living in a cold or dry climate, stress, and overall personalhealth. Seborrheic dermatitis is a chronic condition that comes and goes. Use ketoconazole 2% shampoo (we have provided you with this prescription - also available nfqu-xqa-nqsknph by the brand [employer]), alternating with wsrt-nzv-[place] anti-dandruff shampoos [such as Head and Shoulders (pyrithione zinc), Selsun Blue (selenium sulfide), Neutrogena T/Eduardo (salicylic acid), Neutrogena T/Gel (coal tar)], as face wash. If possible, leave shampoo on the skin for 1-5 minutesbefore rinsing. Suggest daily washing, if possible. For the eyebrows -- you can also apply that same 1:1 mixture hydrocortisone 2.5% cream & ketoconazole 2% cream twice daily to involved areas of the face. # History of intertrigo, inframmary region If this recurs, you can also apply that same 1:1 mixture hydrocortisone 2.5% cream & ketoconazole 2% cream twice daily to involved areas under the breast. All questions answered. It was our pleasure seeing Veronica Guevara today. The patient has been seen and examined with Devaughn Ren M.D.. E CUTTER Associated attestation - Devaughn Ren M.D. - 03/23/2023 12:33 PM SHAKE CUTTER I saw and evaluated the patient, participating in the alexander portions of the service. I reviewed the resident/fellow???s note. I agree with the resident/fellow???s findings and plan. 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
--- OUTSIDE RECORDS SUMMARY | 2023-04-17 11:45 | XMS_ITS | Encounter Summary ---
Author Name Unknown Organization [facility] Address [address] [place] [address] Care Team Providers Care Global Compensation Manager Name Role Phone Elsewhere, Pcp Primary Care Provider Unavailabl e Encounter Details Date Type Department Care Team (Latest Contact Info) Description 03/24/2023 Orders Only Division of Gastroenterology in [place], [place] [address] [place] [phone] Davon Casey M.D. 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 Never 01/24/2022 Do you belong to any clubs o r organizations such as restorationism groups, unions, fraternal or athletic groups, or [...] and heating? Not hard at all 09/02/2022 [facility] of Occupat ional Health - Occupational Stress [...] your living situation today? I have a [facility] place to live 02/16/2023 Education Answer Date Recorded What is the highest level of school you have completed or the highest degree you have received? 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
--- OUTSIDE RECORDS SUMMARY | 2023-04-17 11:45 | XMS_ITS | Encounter Summary ---
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 [address] [place] [phone] [facility] Referral ID Status Reason Start Date Expiration Date V isits Requested Visits Authorized [id number] Authorized 04/14/2023 04/13/2024 1 1 PLATE LAYER * Outpatient (Routine) - Authorized Specialty Diagnoses / Procedures Referred By Contac t Referred To Contact Oncology Mc Mcknight M.D., Ph.D. [address] [place] [phone] [facility] Referral ID Status Reason Start Date Expiration Date V isits Requested Visits Authorized [id number] Authorized 04/14/2023 10/13/2024 1 1 PLATE LAYER * Outpatient (Routine) - Closed Specialty Diagnoses / Procedures Referred By Contac t Referred To Contact Dermatology Diagnoses Malignant Neoplasm Of Neck Squamous Cell Mc Mcknight M.D., Ph.D. [address] [place] [phone] [facility] Referral ID Status Reason Start Date Expiration Date Visits Re quested Visits Authorized [id number] Closed 04/13/2023 10/12/2024 1 1 PLATE LAYER Reason for Visit * Outpatient (Routine) - Closed Specialty Diagnoses / Procedures Referred By Ryan cronin Referred To Contact Oncology Blanche Monzon P.A.-C., M.S. [address] [place] [phone] Mc Mcknight M.D., Ph.D. [address] [place] [phone] Referral ID Status Reason Start Date Expiration Date Visits Re quested Visits Authorized [id number] Closed 01/11/2023 01/10/2026 1 1 Encounter Details Date Type Department Care Team (Late st Contact Info) Description 04/13/2023 4:00 PM MICA PLATE LAYER Office Visit Department of Oncology in [place], [place] [address] [place] [phone] Mc Mcknight M.D., Ph.D. [address] [place] [phone] Malignant Neoplasm Of Neck Squamous Cell (Primary Dx); Secondary Malignant Neoplasm Lymph Node (HCC) Social History Tobacco Use Types Packs/Day Years [...] often do you attend chur ch or gnosticism services? Never 01/24/2022 Do you belong to any clubs o r organizations such as anabaptist groups, unions, fraternal or athletic groups, or [...] and heating? Not hard at all 09/02/2022 [facility] - [...] your living situation today? I have a [facility] place to live 02/16/2023 Education Answer Date Recorded What is the highest level of school you have completed or the highest degree you have received? Bachelor's degree (e.g., BA, AB, BS) 01/24/2022 Sex and Gender Information Value Date Recorded Sex Assigned at Female 01/24/2022 7:37 PM MICA PLATE LAYER Gender Identity Female 01/24/2022 7:37 PM MICA PLATE LAYER Sexual Orientation Straight 01/24/2022 7: 37 PM MICA PLATE LAYER documented as of this encounter Last Filed Vital Signs Vital Sign Reading Time Taken Comments Blood Pressure 107/64 04/13/2023 3:31 PM MICA PLATE LAYER Pulse 64 04/13/2023 3:31 PM MICA PLATE LAYER Temperature 37 ??C (98.6 ??F) 04/13/2023 3:31 PM MICA PLATE LAYER Respiratory Rate 18 04/13/2023 3:31 PM MICA PLATE LAYER Oxygen Saturation 98% 04/13/2023 3:31 PM MICA PLATE LAYER Inhaled Oxygen Concentration - - Weight 57 kg (125 lb 10.6 oz) 04/13/2023 3:31 PM MICA PLATE LAYER Height 160 cm (5' 2.99) 04/13/2023 3:31 PM MICA PLATE LAYER Body Mass Index 22.27 04/13/2023 3:31 PM MICA PLATE LAYER documented in this encounter Progress Notes * Anna Baumann, Pharm.D., R.Ph. - 04/13/2023 4:00 PM CST Medication Management Services (MMS) SUBJECTIVE Veronica Guevara is a 77 y.o. 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 She was referred by Blanche Monzon P.A.-C., M.S. . Patient was at the visit with patient's significant other Andre . The patientdoes not appear cognitively impaired at this visit. 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 SUBJECTIVE CHIEF COMPLAINT/PURPOSE OF VISIT: Resected Stage III squamous cell carcinoma status post radiation therapy on active surveillance Collaborating provider today is Dr. Mc Mcknight Primary collaborating provider is Dr. Mc Mcknight HISTORY OF PRESENT ILLNESS: Oncology History Malignant Neoplasm Of Neck Squamous Cell 07/2021 Initial Diagnosis July 2021: Noticed a lesion on the vertex of the scalp. Evaluated by field attendant Dr. Banuelos in [place] and was treated for possible psoriasis. The lesion persisted after 6 weeks. She was then treated with UV phototherapy between September and December of 2021. September 22, 2021---December 17, 2021: Underwent biopsy of the vertex scalp lesion which revealed squamous cell carcinoma. Incisional biopsy of left level 5 lymph node also revealed squamous cell carcinoma. 12/30/2021 Biopsy/Pathology A. Skin, scalp, vertex, excisional biopsy ([id number]; 12/30/2021): Invasive poorly differentiated squamous cell carcinoma, transected at base and lateral edge of the specimen. B. Neck, left, soft tissue, biopsy ([id number]; 01/13/2022): Invasive poorly differentiated squamous cell carcinoma [...] Goal: Curative Planned Treatment Start Date: 03/15/2022 Interval history: Ms. Guevara returns for follow-up. She continues to do well. She was diagnosed with Clostridium difficile on 03/23/2023 and started therapy with Dificid 200 mg twice daily Days 1-5 and then 200 mg every other day until finished. She states that he diarrhea subsided 4 days after starting the Dificid. She reports some left sided neck pain just under her ear, potentially related to her surgery and/or radiation. She states it is sensitive to the touch. ECOG performance status is 0. Past Medical/Surgical History: Past Medical History: Diagnosis Date Cataract 2021 Dermatitis 2014 Gastroesophageal Reflux Disease NOS 1996 Hyperlipidemia Hypothyroidism 2022 Osteopenia 2012 Regurgitation Aortic Skin Cancer (Primary) NOS 2021 Past Surgical History: Procedure Laterality Date NECK DISSECTION Bilateral 02/01/2022 Procedure: NECK DISSECTION.; Surgeon: Edi Castorena M.D.; Location: [facility] TONSILLECTOMY 1965 TOTAL HYSTERECTOMY 2014 WIDE LOCAL EXCISION Posterior 02/01/2022 Procedure: WIDE LOCAL EXCISION, scalp lesion.; Surgeon: Edi Castorena M.D.; Location: [facility] I reviewed the Medications, Allergies, Past Medical History, Social History, and Family History. OBJECTIVE VITAL SIGNS: Vitals: 04/13/23 1531 BP: 107/64 BP Location: Right arm Patient Position: Sitting Cuff Size: Regular Pulse: 64 Resp: 18 Temp: 37 ??C TempSrc: Tympanic SpO2: 98% Weight: 57 kg Height: 160 cm No data recorded ASSESSMENT / PLAN #1 Squamous Cell Carcinoma Of Skin Of Scalp And Neck #2 Malignant Neoplasm Of Neck Squamous Cell Veronica Guevara is a 77 y.o. 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 She presents today for clinical evaluation, laboratory review and imaging review. Her CT abdomen pelvis today showed no evidence of metastatic disease in the abdomen or pelvis. A CT chest showed stable pulmonary nodules (no new nodules) and no adenopathy. A CT of the neck soft tissue showed no evidence of mass, adenopathy or abnormal enhancement. We will plan to see her back in clinic in 3 months for her next surveillance visit. #3 Clostridium difficile positive 03/23/2023 Ms. Guevara is completing a course of Dificid for Clostridium difficile. She states she has not had diarrhea symptoms for about 1.5 weeks. #4 Likely Seborrheic dermatitis Ms. Guevara was seen by dermatology in March 2023 who recommended a mixture of ketoconazole 2% cream mixed with hydrocortisone 2.5% cream twice daily to the eyebrows. She states that the spot on her eyebrow has not yet completely resolved but that the sites on her gluteal and breasts have resolved. Follow-up with pharmacist was not scheduled at this time. Veronica expressed understanding of, and agreement with plan of care. She was provided a written summaryof recommendations via patient online services. Total time spent was 15 minutes, with more than 50% of the time spent on counseling, coordination of care and patient education. Plan of care was communicated to the referring provider via an electronically routed chart. ADMINISTRATIVE BILLING I personally spent over half of a total 15 minutes face to face with the patient in counseling and discussion and/or coordination of care as described above. PLATE LAYER * Mc Mcknight M.D., Ph.D. - 04/13/2023 4:00 PM CST SUBJECTIVE PRIMARY CARE PHYSICIAN: ELSEWHERE, PCP REQUESTING PROVIDER: Blanche Monzon P.A.-C., M.S. [address] [place] [phone] LOCAL ONCOLOGIST: No care rehabilitation team lead to display PRIMARY [place] ONCOLOGIST: Mc Mcknight M.D., Ph.D. Blanche Monzon P.A.-C., M.S. REASON FOR CONSULT Veronica Guevara is a 77 y.o. female who presents for evaluation of squamous cell CA of the scalp, s/p surgery and RT, here for clinical f/u. OBJECTIVE LABORATORY DATA: Lab data reviewed. RADIOLOGICAL DATA: Radiology data reviewed. Physical Exam: General: Mrs. Guevara looks great; ambulates without assistance, no limitations HEENT: well healing surgical scars on the scalp; no evidence of cSCC recurrence Neck: post-radiation changes Lymph nodes: no palpable cervical, axillary or inguinal lymphadenopathy Lung : CTA Heart : RRR Abdomen: soft, ND/NT ASSESSMENT / PLAN As summarized by Dr. Baumann, Mrs. Guevara is doing very well. Her restaging for cSCC does not showany tumor relapse. We will plan to follow-up with her in 3-4 months. Plan is to do so for at least 3 years post-surgery. Mrs. Kendall is comfortable with this plan of action, and will proceed as outlined. PATIENT EDUCATION: Ready to learn, no apparent learning barriers were identified; learning preferences include listening. Explained diagnosis and treatment plan; patient expressed understanding of the content. I have seen the patient and concur with the assessment, evaluation, and recommendations of Dr. Baumann, as stated in this note. 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) Expected: 07/12/2023 (Approximate), Expires: 07/11/2024 CT Pelvis with IV Contrast Imaging RAD - Routine (most inpatients and all outpatients) 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) Expected: 07/12/2023 (Approximate), Expires: 07/11/2024 CBC with Differential, Blood Lab Routine 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) Expected: 07/12/2023, Expires: 04/14/2024 Comprehensive Metabolic Panel Lab Routine 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) Expected: 07/12/2023, Expires: 04/14/2024 Scheduled Referrals Name Type Priority Associated Diagnoses Order Schedule Dermatology - Skin check consult (clinic) Outpatient Referral Routine Malignant Neoplasm Of Neck Squamous Cell Expected: 04/13/2023 (Approximate), Expires: 07/11/2024 Oncology office visit (clinic) Outpatient Referral Routine Expected: 07/12/2023 (Approximate), Expires: 07/11/2024 documented as of this encounter Visit Diagnoses Diagnosis Malignant Neoplasm Of Neck Squamous Cell- Primary Secondary Malignant Neoplasm Lymph Node (HCC) documented in this encounter Care Teams Louver Door Assembler Relationship Specialty Start Date End Date Elsewhere, Pcp PCP - General Family Medicine 02/01/22 documented as of this encounter
--- OUTSIDE RECORDS SUMMARY | 2023-04-17 11:45 | XMS_ITS | Encounter Summary ---
Author Name Unknown Organization [facility] Address [address] [place] [address] Care Team Providers Care Janitorial Manager Name Role Phone Elsewhere, Pcp Primary Care Provider Unavailabl e Encounter Details Date Type Department Care Team (Latest Contact Info) Description 03/20/2023 Orders Only Division of Gastroenterology in [place], [place] [address] [place] [phone] Davon Casey M.D. [address] [place] [phone] Diarrhea (Primary Dx) Social History Tobacco Use Types [...] often do you attend chur ch or adventism services? Never 01/24/2022 Do you belong to any clubs o r organizations such as gnosticist groups, unions, fraternal or athletic groups, or [...] and heating? Not hard at all 09/02/2022 [facility] - Occupational [...] Sex Assigned at Female 01/24/2022 7:37 PM CENTRIFUGAL STATION OPERATOR Gender Identity Female 01/24/2022 7:37 PM CENTRIFUGAL STATION OPERATOR Sexual Orientation Straight 01/24/2022 7: 37 PM CENTRIFUGAL STATION OPERATOR documented as of this encounter Plan of Treatment Not on file documented as of this encounter Results * (ABNORMAL) Clostridioides (Clostridium) Difficile Toxin, Molecular Detection, PCR, Feces (03/23/2023 4:00 PM CENTRIFUGAL STATION OPERATOR) C. difficile Toxin, F Positive( A) Negative 03/23/2023 5:47 PM CENTRIFUGAL STATION OPERATOR DTL Semi-Urgent This is a semi-urge nt result(RUSHING ) [facility] Stool (Stool) 03/23/2023 4:0 0 PM CENTRIFUGAL STATION OPERATOR 03/23/2023 4:53 PM CENTRIFUGAL STATION OPERATOR Davon Mike M.D. LAB MICRO BIOLOGY - GENERAL ORDERABLES [facility] [address] [place] [address], [place] DTL [facility] [address] [place] [address] documented in this encounter Visit Diagnoses Diagnosis Diarrhea- Primary documented in this encounter Care Teams Janitorial Manager Relationship Specialty Start Date End Date Elsewhere, Pcp PCP - General Family Medicine 02/01/22 documented as of this encounter
--- OUTSIDE RECORDS SUMMARY | 2023-04-17 11:45 | XMS_ITS | Encounter Summary ---
Author Name Unknown Organization [facility] Address [address] [place] [address] Care Team Providers Care Greens Tier Name Role Phone Elsewhere, Pcp Primary Care Provider Unavailabl e Reason for Visit * Reason Onset Date Comments Pre-visit Intake 04/07/2023 Encounter Details Date Type Department Care Team (Latest Contact Info) Description 04/07/2023 9:15 AM WIRE MACHINE CUTTER Clinical Communication Virtual Review in [place], [place] [address] [place], [place] [address] Pre-visit Intake Social History Tobacco Use Types [...] often do you attend chur ch or quaker services? Never 01/24/2022 Do you belong to any clubs o r organizations such as episcopalian groups, unions, fraternal or athletic groups, or [...] and heating? Not hard at all 09/02/2022 [facility] - [...] your living situation today? I have a [facility] place to live 02/16/2023 Education Answer Date Recorded What is the highest level of school you have completed or the highest degree you have received? Bachelor's degree (e.g., BA, AB, BS) 01/24/2022 Sex and Gender Information Value Date Recorded Sex Assigned at Female 01/24/2022 7:37 PM WIRE MACHINE CUTTER Gender Identity Female 01/24/2022 7:37 PM WIRE MACHINE CUTTER Sexual Orientation Straight 01/24/2022 7: 37 PM WIRE MACHINE CUTTER documented as of this encounter Plan of Treatment Not on file documented as of this encounter Visit Diagnoses Not on filedocumented in this encounter Care Teams Greens Tier Relationship Specialty Start Date End Date Elsewhere, Pcp PCP - General Family Medicine 02/01/22 documented as of this encounter
--- OUTSIDE RECORDS SUMMARY | 2023-04-17 11:45 | XMS_ITS | Encounter Summary ---
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 [address] [place] [address] [facility] Referral ID Status Reason Start Date Expiration Date Visits Re quested Visits Authorized [id number] Closed 01/11/2023 01/11/2024 1 1 TH EDUCATOR * MRI/CAT/PET Scan (Routine) - Closed Specialty Diagnoses / Procedures Referred By Contac t Referred To Contact Radiology Diagnoses Squamous Cell Carcinoma Of Skin Of Scalp And Neck Malignant Neoplasm Of Neck Squamous Cell Procedures CT Chest with IV Contrast Blanche Monzon P.A.-C., M.S. 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 [address] [place] [phone] [facility] Referral ID Status Reason Start Date Expiration Date Visits Re quested Visits Authorized [id number] Closed 01/11/2023 01/11/2024 1 1 Encounter Details Date Type Department Care Team (Latest Contact Info) Description 04/13/2023 9:12 AM HEALTH EDUCATOR - 04/13/2023 11:59 PM HEALTH EDUCATOR Hospital Encounter Department of Radiology, [facility], in [place], [place] [address] [place] [phone] Blanche Monzon P.A.-C., M.S. [address] [place] [phone] Squamous Cell Carcinoma Of Skin Of Scalp And Neck; Malignant Neoplasm Of Neck Squamous Cell Discharge Disposition: Home or Self Care Social [...] often do you attend chur ch or protestant services? Never 01/24/2022 Do you belong to [...] and heating? Not hard at all 09/02/2022 [facility] [place] of Occupat ional Health - Occupational Stress [...] your living situation today? I have a [facility] place to live 02/16/2023 Education Answer Date Recorded What is the highest level of school you have completed or the highest degree you have received? Bachelor's degree (e.g., BA, AB, BS) 01/24/2022 Sex and Gender Information Value Date Recorded Sex Assigned at Female 01/24/2022 7:37 PM HEALTH EDUCATOR Gender Identity Female 01/24/2022 7:37 PM HEALTH EDUCATOR Sexual Orientation Straight 01/24/2022 7: 37 PM HEALTH EDUCATOR documented as of this encounter Medications at Time of Discharge [...] 10 mg by mouth at bedtime. 0 ubiquinone (COENZYME Q10) 100 mg tablet Take 100 mg by mouth daily. 0 12/22/2021 UNABLE TO FIND Take 1 each by mouth daily. Med Name: Collagen powder, 1 scoop every morning with cereal 0 documented as of this encounter Plan of Treatment Not on file documented as of this encounter Procedures Procedure Name Priority Date/Time Associated Diagnosis Comments CT ABDOMEN PELVIS WITH IV CONTRAST RAD - Routine (most inpatients and all outpatients) 04/13/2023 10:36 AM HEALTH EDUCATOR Squamous Cell Carcinoma Of Skin Of Scalp And Neck Malignant Neoplasm Of Neck Squamous Cell CT CHEST WITH IV CONTRAST RAD - Routine (most inpatients and all outpatients) 04/13/2023 10:36 AM HEALTH EDUCATOR Squamous Cell Carcinoma Of Skin Of Scalp And Neck Malignant Neoplasm Of Neck Squamous Cell CT NECK SOFT TISSUE WITH IV CONTRAST RAD - Routine (most inpatients and all outpatients) 04/13/2023 10:36 AM HEALTH EDUCATOR Squamous Cell Carcinoma Of Skin Of Scalp And Neck Malignant Neoplasm Of Neck Squamous Cell documented in this encounter Results * CT Neck Soft Tissue with IV Contrast (04/13/2023 10:36 AM HEALTH EDUCATOR) Anatomical Region Laterality Modality Neck, Neuroradiology RST LOS , Neuroradiology ARZ LOS, Neuroradiology FLA LOS N/A Computed Tomography, Compute d Tomography 04/13/2023 10:2 2 AM HEALTH EDUCATOR Impressions 04/13/2023 11:06 AM HEALTH EDUCATOR Stable exam since 01/11/2023. Nothing for residual/recurrent squamous cell carcinoma. Narrative 04/13/2023 11:06 AM HEALTH EDUCATOR EXAM: CT NECK SOFT TISSUE WITH IV CONTRAST COMPARISON: [place] soft tissue neck CT with IV contrast [...] within the lung apices. Bilateral cataract surgery. [id number] generalized cerebral and cerebellar volume loss. Remainder normal. Procedure Note Philip Birmingham M.D., Ph.D. - 04/13/2023 EXAM: CT NECK SOFT TISSUE WITH IV CONTRAST COMPARISON: [place] soft tissue neck CT with IV contrast [...] gland.Scarring within the lung apices. Bilateral cataract surgery.[id number] generalized cerebral and cerebellar volume loss. Remainder normal. IMPRESSION: Stable exam since 01/11/2023. Nothing for residual/recurrent squamous cellcarcinoma. Blanche Monzon P.A.-C., M.S. IMG CT P ROCEDURES * CT Abdomen Pelvis with IV Contrast (04/13/2023 10:36 AM HEALTH EDUCATOR) Anatomical Region Laterality Modality Abdomen, Pelvis, Abdominal R ST LOS, Abdominal ARZ LOS, Abdominal FLA LOS N/A Computed Tomograp hy, Computed Tomography 04/13/2023 10:2 1 AM HEALTH EDUCATOR Impressions 04/13/2023 10:33 AM HEALTH EDUCATOR No evidence for metastatic disease in the abdomen or pelvis. Narrative 04/13/2023 10:33 AM HEALTH EDUCATOR EXAM: ??CT ABDOMEN PELVIS WITH IV CONTRAST [...] metastatic disease in the abdomen or pelvis. Belén Dennis P.A.-C.S. IMG CT P ROCEDURES * CT Chest with IV Contrast (04/13/2023 10:36 AM HEALTH EDUCATOR) Anatomical Region Laterality Modality Chest, Thoracic RST LOS, Tho racic ARZ LOS, Thoracic ARZ LOS, Thoracic FLA LOS N/A Computed Tomography, Compute d Tomography 04/13/2023 10:2 2 AM HEALTH EDUCATOR Impressions 04/13/2023 12:54 PM HEALTH EDUCATOR Stable exam including tiny pulmonary nodules. Narrative 04/13/2023 12:54 PM HEALTH EDUCATOR EXAM: CT CHEST WITH IV CONTRAST COMPARISON: [...] IMPRESSION: Stable exam including tiny pulmonary nodules. Belén Dennis P.A.-C.SNey IMG CT P ROCEDURES documented in this encounter Visit Diagnoses Diagnosis Squamous Cell Carcinoma Of Skin Of Scalp And Neck Malignant Neoplasm Of Neck Squamous Cell documented in this encounter Administered Medications Inactive Administered Medications - up to 3 most recent administrations Medication Order MAR Action Action Date Dose Rate Site iohexoL 300 mg iodine/mL solution 1-200 mL (OMNIPAQUE) 1-200 mL, intravenous, Once in imaging, contrast, Starting on Stacia 04/13/23 at 0925, For 1 dose, Imaging Protocol Orders, Dose per Radiant Medication Guidelines Given 04/13/2023 10:10 AM HEALTH EDUCATOR 140 mL sodium chloride (PF) 0.9 % injection 1-100 mL 1-100 mL, intravenous, Once, On Stacia 04/13/23 at 0945, For 1 dose, Imaging Protocol Orders Given 04/13/2023 10:11 AM HEALTH EDUCATOR 50 mL documented in this encounter Care Teams Land Department Head Relationship Specialty Start Date End Date Elsewhere, Pcp PCP - General Family Medicine 02/01/22 documented as of this encounter
--- OUTSIDE RECORDS SUMMARY | 2023-04-17 11:45 | XMS_ITS | Encounter Summary ---
Author Name Unknown Organization [facility] Address [address] [place] [address] Care Team Providers Care Drosophere Operator Name Role Phone Elsewhere, Pcp Primary Care Provider Unavailabl e Encounter Details Date Type Department Care Team (Late st Contact Info) Description 04/14/2023 12:05 AM PUBLIC WORKS DIRECTOR Ancillary Procedure Department of Dermatology Arrived Social [...] any clubs o r organizations such as yazidism groups, unions, fraternal or athletic groups, or [...] and heating? Not hard at all 09/02/2022 [facility] of Occupat ional Health - Occupational [...] Assigned at Female 01/24/2022 7:37 PM PUBLIC WORKS DIRECTOR Gender Identity Female 01/24/2022 7:37 PM PUBLIC WORKS DIRECTOR Sexual Orientation Straight 01/24/2022 7: 37 PM PUBLIC WORKS DIRECTOR documented as of this encounter Plan of Treatment Not on file documented as of this encounter Procedures Procedure Name Priority Date/Time Associated Diagnosis Comments DERMATOLOGY IMAGE EXAM Routine 04/14/2023 12:05 AM PUBLIC WORKS DIRECTOR documented in this encounter Results * Scalp 502-Dermatology Image Exam (04/14/2023 12:05 AM PUBLIC WORKS DIRECTOR) Narrative IIMS - 04/14/2023 4:07 PM PUBLIC WORKS DIRECTOR This order has been created and auto-finalized to support the import of images acquired without order. The clinical documentation to support these images can be found on the encounter that produced images. Provider Not In System IMG NON RAD IMAGI NG PROCEDURES IIMS NA documented in this encounter Visit Diagnoses Not on filedocumented in this encounter Care Teams Drosophere Operator Relationship Specialty Start Date End Date Elsewhere, Pcp PCP - General Family Medicine 02/01/22 documented as of this encounter
--- OUTSIDE RECORDS SUMMARY | 2023-04-17 11:45 | XMS_ITS | Encounter Summary ---
Author Name Unknown Organization [facility] Address [address] [place] [address] Care Team Providers Care Marketing Developer Name Role Phone Elsewhere, Pcp Primary Care Provider Unavailabl e Encounter Details Date Type Department Care Team (Latest Contact Info) Description 04/13/2023 7:43 AM TOTER - 04/13/2023 9:11 AM [facility] Hospital Encounter Department of Laboratory Medicine and Pathology, [facility], in [place], [place] [address] [place] [address] Blanche Monzon P.A.-C., M.S. [address] [place] [address] Squamous Cell Carcinoma Of Skin Of Scalp And Neck; Malignant Neoplasm Of Neck Squamous Cell; Hypothyroidism Acquired Discharge Disposition: Home or Self Care Social [...] often do you attend chur ch or restoration services? Never 01/24/2022 Do you belong to any clubs o r organizations such as anglican groups, unions, fraternal or athletic groups, or [...] and heating? Not hard at all 09/02/2022 [facility] of Occupat ional Health - Occupational Stress [...] your living situation today? I have a [facility] place to live 02/16/2023 Education Answer Date Recorded What is the highest level of school you have completed or the highest degree you have received? Bachelor's degree (e.g., BA, AB, BS) 01/24/2022 Sex and Gender Information Value Date Recorded Sex Assigned at Female 01/24/2022 7:37 PM TOTER Gender Identity Female 01/24/2022 7:37 PM TOTER Sexual Orientation Straight 01/24/2022 7: 37 PM TOTER documented as of this encounter Medications at [...] Procedure Name Priority Date/Time Associated Diagnosis Comments THYROID FUNCTION CASCADE, S Routine 04/13/2023 7:54 AM TOTER Squamous Cell Carcinoma Of Skin Of Scalp And Neck Malignant Neoplasm Of Neck Squamous Cell Hypothyroidism Acquired CBC WITH DIFFERENTIAL, B Routine 04/13/2023 7:54 AM TOTER Squamous Cell Carcinoma Of Skin Of Scalp And Neck Malignant Neoplasm Of Neck Squamous Cell COMPREHENSIVE METABOLIC PANEL, S/P Routine 04/13/2023 7:54 AM TOTER Squamous Cell Carcinoma Of Skin Of Scalp And Neck Malignant Neoplasm Of Neck Squamous Cell documented in this encounter Results * Thyroid Function [place] (04/13/2023 7:54 AM TOTER) Pathologist [facility] TSH, Sensitive 3.4 0.3 - 4.2 mIU/L 04/13/2023 9:00 AM TOTER DTL Blood (Blood, Venous) 04/13/2023 7:54 AM TOTER 04/13/2023 8:28 AM TOTER Karina Garcia APRN C.N.P., M.S.N. LAB BLOOD ADD-ON [facility] [address] [place] [address], [facility] [address] [place] [address] * (ABNORMAL) CBC with Differential, Blood (04/13/2023 7:54 AM TOTER) [facility] Hemoglobin 13.0 11.6 - 15.0 g/dL 04/13/2023 8:32 AM TOTER DTL Hematocrit 38.7 35.5 - 44.9 % 04/13/2023 8:32 AM TOTER DTL Erythrocytes 4.43 3.92 - 5.13 x10(12)/L 04/13/2023 8:32 AM TOTER DTL MCV 87.4 78.2 - 97.9 fL 04/13/2023 8:32 AM TOTER DTL RBC Distrib Width 12.3 12.2 - 16.1 % 04/13/2023 8:32 AM TOTER DTL Platelet Count 286 157 - 371 x10(9)/L 04/13/2023 8:32 AM TOTER DTL Leukocytes 4.2 3.4 - 9.6 x10(9)/L 04/13/2023 8:32 AM TOTER DTL Neutrophils 2.63 1.56 - 6.45 x10(9)/L 04/13/2023 8:32 AM TOTER DHPM Lymphocytes 0.87(L) 0.95 - 3.07 x10(9)/L 04/13/2023 8:32 AM TOTER DTL Monocytes 0.39 0.26 - 0.81 x10(9)/L 04/13/2023 8:32 AM TOTER DTL Eosinophils 0.23 0.03 - 0.48 x10(9)/L 04/13/2023 8:32 AM TOTER DTL Basophils 0.04 0.01 - 0.08 x10(9)/L 04/13/2023 8:32 AM TOTER DTL Blood (Blood, Venous) 04/13/2023 7:54 AM TOTER 04/13/2023 8:18 AM TOTER Blanche Monzon P.A.-C. [place] LAB BLOO D ADD-ON [facility] [address] [place] [address], [facility] DTL [facility] [address] [place] [address] [facility] [address] [place] [address] * Comprehensive Metabolic Panel (04/13/2023 7:54 AM TOTER) Pathologist [facility] Potassium, S 4.3 3.6 - 5.2 mmol/L 04/13/2023 9:00 AM TOTER DTL Sodium, S 139 135 - 145 mmol/L 04/13/2023 9:00 AM TOTER DTL Chloride, S 102 98 - 107 mmol/L 04/13/2023 9:00 AM TOTER DTL Bicarbonate, S 26 22 - 29 mmol/L 04/13/2023 9:00 AM TOTER DTL Anion Gap 11 7 - 15 04/13/2023 9:00 AM TOTER DTL BUN (Blood Urea Nitrogen), S 14 6 - 21 mg/dL 04/13/2023 9:00 AM TOTER DTL Creatinine 0.76 0.59 - 1.04 mg/dL 04/13/2023 9:00 AM TOTER DTL Estimated GFR (eGFR) 81 >=60 mL/min/BS A 04/13/2023 9:00 AM TOTER DTL Comment: Estimated GFR calculated using the 2020 CKD_EPI creatinine equation. Calcium, Total, S 9.4 8.8 - 10.2 mg/dL 04/13/2023 9:00 AM TOTER DTL Glucose, S 95 70 - 140 mg/dL 04/13/2023 9:00 AM TOTER DTL Protein, Total, S 6.4 6.3 - 7.9 g/dL 04/13/2023 9:00 AM TOTER DTL Albumin, S 4.2 3.5 - 5.0 g/dL 04/13/2023 9:00 AM TOTER DTL Aspartate Aminotransferase (AST), S 36 8 - 43 U/L 04/13/2023 9:00 AM TOTER DTL Alkaline Phosphatase, S 97 35 - 104 U/L 04/13/2023 9:00 AM TOTER DTL Alanine Aminotransferase (ALT), S 23 7 - 45 U/L 04/13/2023 9:00 AM TOTER DTL Bilirubin, Total, S 0.3 0.0 - 1.2 mg/dL 04/13/2023 9:00 AM TOTER DTL Blood (Blood, Venous) 04/13/2023 7:54 AM TOTER 04/13/2023 8:28 AM TOTER Blanche Monzon P.A.-C. M.S. LAB ANDERSONO D ADD-ON [facility] [address] [place] [address], [facility] DTL [facility] [address] [place] [address] documented in this encounter Visit Diagnoses Diagnosis Squamous Cell Carcinoma Of Skin Of Scalp And Neck Malignant Neoplasm Of Neck Squamous Cell Hypothyroidism Acquired documented in this encounter Care Teams Marketing Developer Relationship Specialty Start Date End Date Elsewhere, Pcp PCP - General Family Medicine 02/01/22 documented as of this encounter
--- OUTSIDE RECORDS SUMMARY | 2023-04-17 11:45 | XMS_ITS | Encounter Summary ---
Author Name Unknown Organization [facility] Address [address] [place] [address] Care Team Providers Care Med Asst Name Role Phone Elsewhere, Pcp Primary Care Provider Unavailabl e Encounter Details Date Type Department Care Team (Latest Contact Info) Description 03/23/2023 8:49 AM COAL TRIMMER - 03/23/2023 11:59 PM COAL TRIMMER Hospital Encounter Department of Laboratory Medicine and Pathology, [facility], in [place], [place] [address] [place] [address] Davon Casey M.D. [address] [place] [address] Diarrhea Discharge Disposition: Home or Self Care Social [...] often do you attend chur ch or druze services? Never 01/24/2022 Do you belong to any clubs o r organizations such as denominational groups, unions, fraternal or athletic groups, or [...] and heating? Not hard at all 09/02/2022 [facility] - Occupational Stress Questionnaire Answer Date [...] your living situation today? I have a [facility] place to live 02/16/2023 Education Answer Date Recorded What is the highest level of school you have completed or the highest degree you have received? Bachelor's degree (e.g., BA, AB, BS) 01/24/2022 Sex and Gender Information Value Date Recorded Sex Assigned at Female 01/24/2022 7:37 PM COAL TRIMMER Gender Identity Female 01/24/2022 7:37 PM COAL TRIMMER Sexual Orientation Straight 01/24/2022 7: 37 PM COAL TRIMMER documented as of this encounter Medications at Time of Discharge Medication Sig Dispensed Refills Start Date End Date hydrocortisone 2.5 % ointmentIndications:D ermatitis Mix with [...] mouth daily. 90 tablet 1 03/02/2023 08/29/2023 neomycin-polymyxin B-dexameth (MAXITROL) 3.5 mg/g-10,000 unit/g-0.1 % [...] Procedure Name Priority Date/Time Associated Diagnosis Comments C. DIFFICILE TOXIN PCR, F Routine 03/23/2023 4:00 PM COAL TRIMMER Diarrhea documented in this encounter Results * (ABNORMAL) Clostridioides (Clostridium) Difficile Toxin, Molecular Detection, PCR, Feces (03/23/2023 4:00 PM COAL TRIMMER) C. difficile Toxin, F Positive( A) Negative 03/23/2023 5:47 PM COAL TRIMMER DTL Semi-Urgent This is a semi-urge nt result(RUSHING ) [facility] Stool (Stool) 03/23/2023 4:0 0 PM COAL TRIMMER 03/23/2023 4:53 PM COAL TRIMMER Davon Mike M.D. LAB MICRO BIOLOGY - GENERAL ORDERABLES [facility] [address] [place] [address], [place] DTL [facility] [address] [place] [address] documented in this encounter Visit Diagnoses Diagnosis Diarrhea documented in this encounter Care Teams Med Asst Relationship Specialty Start Date End Date Elsewhere, Pcp PCP - General Family Medicine 02/01/22 documented as of this encounter
--- OUTSIDE RECORDS SUMMARY | 2023-04-17 11:46 | XMS_ITS | Encounter Summary ---
Author Name Unknown Organization [facility] Address [address] [place] [address] Care Team Providers Care Supervisor Plating And Point Assembly Name Role Phone Elsewhere, Pcp Primary Care Provider Unavailabl e Reason for Referral * MRI/CAT/PET Scan (Routine) - Closed Specialty Diagnoses / Procedures Referred By Contac t Referred To Contact Radiology Diagnoses Secondary Malignant Neoplasm Lymph Node (HCC) Procedures CT Neck Soft Tissue with IV Contrast Mc Mcknight M.D., Ph.D. [address] [place] [phone] [facility] Referral ID Status Reason Start Date Expiration Date Visits Re quested Visits Authorized [id number] Closed 09/08/2022 09/08/2023 1 1 NESS UNIT DIRECTOR * MRI/CAT/PET Scan (Routine) - Closed Specialty Diagnoses / Procedures Referred By Contac t Referred To Contact Radiology Diagnoses Secondary Malignant Neoplasm Lymph Node (HCC) Procedures CT Chest with IV Contrast Mc Mcknight M.D., Ph.D. [address] [place] [phone] [facility] Referral ID Status Reason Start Date Expiration Date Visits Re quested Visits Authorized [id number] Closed 09/08/2022 09/08/2023 1 1 NESS UNIT DIRECTOR * MRI/CAT/PET Scan (Routine) - Closed Specialty Diagnoses / Procedures Referred By Ryan cronin Referred To Contact Radiology Diagnoses Secondary Malignant Neoplasm Lymph Node (HCC) Procedures CT Abdomen Pelvis with IV Contrast Mc Mcknight M.D., Ph.D. [address] [place] [phone] [facility] Referral ID Status Reason Start Date Expiration Date Visits Re quested Visits Authorized [id number] Closed 09/08/2022 09/08/2023 1 1 NESS UNIT DIRECTOR Reason for Visit * MRI/CAT/PET Scan (Routine) - Closed Specialty Diagnoses / Procedures Referred By Ryan cronin Referred To Contact Radiology Diagnoses Secondary Malignant Neoplasm Lymph Node (HCC) Procedures CT Neck Soft Tissue with IV Contrast Mc Mcknight M.D., Ph.D. [address] [place] [phone] [facility] Referral ID Status Reason Start Date Expiration Date Visits Re quested Visits Authorized [id number] Closed 09/08/2022 09/08/2023 1 1 Encounter Details Date Type Department Care Team (Latest Contact Info) Description 01/11/2023 8:14 AM BUSINESS UNIT DIRECTOR - 01/11/2023 9:09 AM BUSINESS UNIT DIRECTOR Hospital Encounter Department of Radiology, [facility] in [place], [place] [address] [place] [phone] Mc Mcknight M.D., Ph.D. [address] [place] [phone] Secondary Malignant Neoplasm Lymph Node (HCC) Discharge Disposition: Home or Self Care Social [...] How often do you attend chur or hinduism services? Never 01/24/2022 Do you belong to any clubs o r organizations such as adventist groups, unions, fraternal or athletic groups, or [...] and heating? Not hard at all 09/02/2022 [facility] - Occupational Stress [...] to strenuous exercise (like a brisk walk)? 5 days 01/24/2022 On average, how many minutes do you engage in exercise at this level? 30 min 01/24/2022 Hunger Vital Sign Answer Date Recorded Within the past 12 months, y ou worried that your food would run out before you got the money to buy more. Never true 09/03/19 23 Within the past 12 months, t he food you bought just didn't last and you didn't have money to get more. Never true 09/02/2022 PRAPARE - Transportation Answer Date Re corded In the past 12 months, has l ack of transportation kept you from medical appointments or from getting medications? No 08/06 In the past 12 months, has l ack of transportation kept you from meetings, work, or from getting things needed for daily living? No 09/02/2022 Nutrition Answer Date Recorded Nutrition: EVOO Fat Source Yes 01/24 On average, how many serving s of fruits and vegetables do you eat per day (serving size is equal to 1 cup or approximately the size of a tennis ball)? 4-5 01/24/2022 Dental Answer Date Recorded Dental: Regular Dentist Yes 01/25/20 Employment Answer Date Recorded Employment status Retired 01/24/2022 Housing Stability Answer Date Recorded What is your living situation today? I have a [facility] place to live 09/02/2022 Education Answer Date Recorded What is the highest level of school you have completed or the highest degree you have received? Bachelor's degree (e.g., BA, AB, BS) 01/24/2022 Sex and Gender Information Value Date Recorded Sex Assigned at Female 01/24/2022 7:37 PM BUSINESS UNIT DIRECTOR Gender Identity Female 01/24/2022 7:37 PM BUSINESS UNIT DIRECTOR Sexual Orientation Straight 01/24/2022 7: 37 PM BUSINESS UNIT DIRECTOR documented as of this encounter Medications at Time of Discharge Medication Sig Dispensed Refills Start Date End Date ketoconazole (NIZORAL) 2 % creamIndications:Derm atitis Seborrheic Apply 1 Application topically 2 (two) times a day as needed for rash or irritation. Apply to red, itchy areas on the central face and eyebrows as well as over the supragluteal cleft 60 g 11 12/21/2022 neomycin-polymyxin B-dexameth (MAXITROL) 3.5 mg/g-10,000 unit/g-0.1 % [...] 1 scoop every morning with cereal 0 hydrocortisone 2.5 % ointmentIndications:D ermatitis Apply twice daily to the gluteal cleft/buttock for 1-2 weeks, then as needed for flares and inflammation. 30 g 2 09/09/2022 03/23/2023 levothyroxine (SYNTHROID, LEVOTHROID) 25 mcg tablet Take 1 tablet (25 mcg total) by mouth every morning before breakfast. 90 tablet 2 11/02/2022 03/02/2023 documented as of this encounter Plan of Treatment Scheduled Orders Name Type Priority Associated Diagnoses Orde r Schedule Creatinine, POCT Point of Care Testing-Docked Device Routine Routine lab collecti on (next collection) for 1 Occurrences starting 01/11/2023 until 01/11/2023 documented as of this encounter Procedures Procedure Name Priority Date/Time Associated Diagnosis Comments CT ABDOMEN PELVIS WITH IV CONTRAST RAD - Routine (most inpatients and all outpatients) 01/11/2023 9:06 AM BUSINESS UNIT DIRECTOR Secondary Malignant Neoplasm Lymph Node (HCC) CT CHEST WITH IV CONTRAST RAD - Routine (most inpatients and all outpatients) 01/11/2023 9:06 AM BUSINESS UNIT DIRECTOR Secondary Malignant Neoplasm Lymph Node (HCC) CT NECK SOFT TISSUE WITH IV CONTRAST RAD - Routine (most inpatients and all outpatients) 01/11/2023 9:06 AM BUSINESS UNIT DIRECTOR Secondary Malignant Neoplasm Lymph Node (HCC) CREATININE, POCT, B Routine 01/11/2023 8:30 AM BUSINESS UNIT DIRECTOR CREATININE, POCT, B Routine 01/11/2023 8:30 AM BUSINESS UNIT DIRECTOR documented in this encounter Results * CT Neck Soft Tissue with IV Contrast (01/11/2023 9:06 AM BUSINESS UNIT DIRECTOR) Anatomical Region Laterality Modality Neck, Neuroradiology RST LOS , Neuroradiology ARZ LOS, Neuroradiology FLA LOS N/A Computed Tomography, Compute d Tomography 01/11/2023 8:56 AM BUSINESS UNIT DIRECTOR Impressions 01/11/2023 10:18 AM BUSINESS UNIT DIRECTOR No cervical adenopathy by size or morphologic criteria. Stable thyroid nodules. Dedicated thyroid ultrasound would be of benefit for further characterization if not already performed. 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 FINDINGS: No suspicious masses in the aerodigestive tract. Scattered multilevel cervical station lymph nodes bilaterally, none of which are pathologically enlarged by CT size or morphologic criteria. Major salivary glands are unremarkable. Esophagus is patulous. Stable thyroid nodules including a heterogeneous, ill-defined 1.1 x 6 x 1.1 cm right thyroid lobe nodule (series 6/image 91; 8/52; AP x ML x SI). Minor carotid bifurcation calcified arteriosclerotic disease. No sialoadenitis. Multilevel degenerative cervical spondylosis. Degenerative changes of the temporomandibular joints bilaterally. Visualized portions of the intracranial fossa without acute abnormality. Biapical lung scarring. A CT of the chest, abdomen and pelvis was performed in conjunction with this exam and will be reported separately. Procedure Note Sukhjinder Cutler M.D. - 01/11/2023 EXAM: CT NECK SOFT TISSUE WITH IV CONTRAST COMPARISON: CT neck soft tissue with IV contrast 09/09/2022 History of poorly differentiated squamous cell carcinoma of the scalpvertex with metastatic disease involving a left level 5 lymph node statuspost wide local excision and bilateral neck dissection on 02/01/2022 withadjuvant radiation therapy (completed on 04/29/2022). FINDINGS: No suspicious masses in the aerodigestive tract. Scatteredmultilevel cervical station lymph nodes bilaterally, none of which arepathologically enlarged by CT size or morphologic criteria. Major salivaryglands are unremarkable. Esophagus is patulous. Stable thyroid nodules including a heterogeneous, ill-defined 1.1 x 6 x1.1 cm right thyroid lobe nodule (series 6/image 91; 8/52; AP x ML x SI). Minor carotid bifurcation calcified arteriosclerotic disease. Nosialoadenitis. Multilevel degenerative cervical spondylosis. Degenerative changes of the temporomandibular joints bilaterally. Visualized portions of the intracranial fossa without acute abnormality. Biapical lung scarring. A CT of the chest, abdomen and pelvis was performed in conjunction withthis exam and will be reported separately. IMPRESSION: No cervical adenopathy by size or morphologic criteria. Stable thyroid nodules. Dedicated thyroid ultrasound would be of benefitfor further characterization if not already performed. Mc Mcknight M.D., Ph.D. IMG CT P ROCEDURES * CT Chest with IV Contrast (01/11/2023 9:06 AM BUSINESS UNIT DIRECTOR) Anatomical Region Laterality Modality Chest, Thoracic RST LOS, Tho racic ARZ LOS, Thoracic ARZ LOS, Thoracic FLA LOS N/A Computed Tomography, Compute d Tomography 01/11/2023 8:57 AM BUSINESS UNIT DIRECTOR Impressions 01/11/2023 10:09 AM BUSINESS UNIT DIRECTOR Stable exam. Unchanged few pulmonary nodules, including a 3 mm groundglass nodule in the right apex. Narrative 01/11/2023 10:09 AM BUSINESS UNIT DIRECTOR EXAM: CT CHEST WITH IV CONTRAST COMPARISON: CT chest 09/09/2022 and 06/09/2022. FINDINGS: Biapical pleuroparenchymal scarring. Unchanged 3 mm peribronchial nodule in the left upper lobe centrally (series 3, image 280). Stable 3 mm groundglass nodule in the right apex (series 3, image 142). No new or enlarging pulmonary nodules. Mild dependent bibasilar atelectasis. No pleural effusions. No thoracic lymphadenopathy. Small esophageal hiatal hernia. Minimal degenerative change of the spine. No aggressive osseous lesions. Unchanged hypodensities in the liver may represent cysts. Normal right adrenal gland. Left adrenal gland partially visualized, normal where seen. This exam was performed conjunction with CT of the neck which will be reported separately. Mc Mcknight M.D., Ph.D. IMG CT P ROCEDURES * CT Abdomen Pelvis with IV Contrast (01/11/2023 9:06 AM BUSINESS UNIT DIRECTOR) Anatomical Region Laterality Modality Abdomen, Pelvis, Abdominal R ST LOS, Abdominal ARZ LOS, Abdominal FLA LOS N/A Computed Tomograp hy, Computed Tomography 01/11/2023 8:56 AM BUSINESS UNIT DIRECTOR Impressions 01/11/2023 10:43 AM BUSINESS UNIT DIRECTOR No CT evidence of metastatic squamous cell carcinoma in the abdomen or pelvis. Narrative 01/11/2023 10:43 AM BUSINESS UNIT DIRECTOR EXAM: ??CT ABDOMEN PELVIS WITH IV CONTRAST COMPARISON: ??CT abdomen and pelvis 09/09/2022 and 06/09/2022. FINDINGS: Hepatic and renal cysts. No suspicious hepatic lesions. Gallbladder, pancreas, spleen, and right adrenal gland are normal. Stable prominence of left adrenal gland, unchanged since 06/09/2022. Hysterectomy. Colonic diverticulosis. Small esophageal hiatal hernia. No lymphadenopathy or ascites in abdomen or pelvis. Atherosclerotic aortoiliac calcifications. No osseous metastases. Stable sclerotic benign-appearing lesion right femoral head and neck. Hypertrophic changes of spine. This examination was performed in conjunction with CT of neck and chest, which will be reported separately. Procedure Note Audra Han M.D. - 01/11/2023 EXAM: CT ABDOMEN PELVIS WITH IV CONTRAST COMPARISON: CT abdomen and pelvis 09/09/2022 and 06/09/2022. FINDINGS: Hepatic and renal cysts. No suspicious hepatic lesions.Gallbladder, pancreas, spleen, and right adrenal gland are normal. Stableprominence of left adrenal gland, unchanged since 06/09/2022. Hysterectomy. Colonic diverticulosis. Small esophageal hiatal hernia. Nolymphadenopathy or ascites in abdomen or pelvis. Atheroscleroticaortoiliac calcifications. No osseous metastases. Stable sclerotic benign-appearing lesion rightfemoral head and neck. Hypertrophic changes of spine. This examination was performed in conjunction with CT of neck and chest,which will be reported separately. IMPRESSION: No CT evidence of metastatic squamous cell carcinoma in the abdomen orpelvis. Mc Mcknight M.D., Ph.D. IMG CT P ROCEDURES * Creatinine, POCT (01/11/2023 8:30 AM BUSINESS UNIT DIRECTOR) Creatinine, POCT, B 0.7 0.6 - 1.0 mg/dL 01/11/2023 8:32 AM BUSINESS UNIT DIRECTOR PCDT Comment: ----ADDITIONAL INFORMATION---- Performed at the Point of Care Blood 01/11/2023 8:30 AM BUSINESS UNIT DIRECTOR 01/11/2023 8:32 AM BUSINESS UNIT DIRECTOR Unknown Provider LAB POCT ORDERABLES - DEVICE Performing Organization Address [facility] de Phone Number [facility] [address] [place] [address], [facility] PCDT [facility] [address] [place] [address] * Creatinine, POCT (01/11/2023 8:30 AM BUSINESS UNIT DIRECTOR) Estimated GFR (eGFR), POCT 89 >=60 mL/min/BSA 01/11/2023 8:32 AM BUSINESS UNIT DIRECTOR PCMO Comment: Estimated GFR calculated using the 2020 CKD_EPI creatinine equation. Blood 01/11/2023 8:30 AM BUSINESS UNIT DIRECTOR 01/11/2023 8:32 AM BUSINESS UNIT DIRECTOR Unknown Provider LAB POCT ORDERABLES - DEVICE Performing Organization Address [facility] Co de Phone Number [facility] [address] [place] [address], [facility] PCMO [facility] [address] [place] [address] documented in this encounter Visit Diagnoses Diagnosis Secondary Malignant Neoplasm Lymph Node (HCC) documented in this encounter Administered Medications Inactive Administered Medications - up to 3 most recent administrations Medication Order MAR Action Action Date Dose Rate Site iohexoL 300 mg iodine/mL solution 1-200 mL (OMNIPAQUE) 1-200 mL, intravenous, Once in imaging, contrast, Starting on Mon01/11/23 at 0820, For 1 dose, Imaging Protocol Orders, Dose per Radiant Medication Guidelines Given 01/11/2023 8:56 AM BUSINESS UNIT DIRECTOR 140 mL sodium chloride (PF) 0.9 % injection 1-100 mL 1-100 mL, intravenous, Once, On Mon01/11/23 at 0845, For 1 dose, Imaging Protocol Orders Given 01/11/2023 8:56 AM BUSINESS UNIT DIRECTOR 50 mL documented in this encounter Care Teams Supervisor Plating And Point Assembly Relationship Specialty Start Date End Date Elsewhere, Pcp PCP - General Family Medicine 02/01/22 documented as of this encounter
--- OUTSIDE RECORDS SUMMARY | 2023-04-17 11:46 | XMS_ITS | Encounter Summary ---
Author Name Unknown Organization [facility] Address [address] [place] [address] Care Team Providers Care Vehicle Service Agent Name Role Phone Elsewhere, Pcp Primary Care Provider Unavailabl e Encounter Details Date Type Department Care Team (Late st Contact Info) Description 02/10/2023 Orders Only Department of Radiation Oncology in [place], [place] [address] [place] [phone] Renea Arango S, R.N. Insufficiency Pancreatic (Primary Dx) Social History Tobacco Use Types [...] any clubs o r organizations such as rastafarian groups, unions, fraternal or athletic groups, or [...] and heating? Not hard at all 09/02/2022 [facility] - Occupational [...] your living situation today? I have a [facility] place to live 02/16/2023 Education Answer Date Recorded What is the highest level of school you have completed or the highest degree you have received? Bachelor's degree (e.g., BA, AB, BS) 01/24/2022 Sex and Gender Information Value Date Recorded Sex Assigned at Female 01/24/2022 7:37 PM MOTOR INSTALLER Gender Identity Female 01/24/2022 7:37 PM MOTOR INSTALLER Sexual Orientation Straight 01/24/2022 7: 37 PM MOTOR INSTALLER documented as of this encounter Plan of Treatment Not on file documented as of this encounter Visit Diagnoses Diagnosis Insufficiency Pancreatic- Primary documented in this encounter Care Teams Vehicle Service Agent Relationship Specialty Start Date End Date Elsewhere, Pcp PCP - General Family Medicine 02/01/22 documented as of this encounter
--- OUTSIDE RECORDS SUMMARY | 2023-04-17 11:46 | XMS_ITS | Encounter Summary ---
Author Name Unknown Organization [facility] Address [address] [place] [address] Care Team Providers Care Keysmith Name Role Phone Elsewhere, Pcp Primary Care Provider Unavailabl e Reason for Visit * Outpatient (Routine) - Closed Specialty Diagnoses / Procedures Referred By Contact Referred To Contact Gastroenterology and Hepatology Diagnoses Insufficiency Pancreatic Tammie Hooks M.D., Ph.D. [address] [place] [phone] [facility] Referral ID Status Reason Start Date Expiration Date Visits Re quested Visits Authorized [id number] Closed 02/14/2023 02/14/2024 1 1 Encounter Details Date Type Department Care Team (Latest Contact Info) Description 02/20/2023 10:20 AM ILLUSIONIST Comprehensive Visit Division of Gastroenterology in [place], [place] [address] [place] [phone] Tammie Hooks M.D., Ph.D. [address] [place] [phone] Davon Casey M.D. [address] [place] [phone] Insufficiency Pancreatic Social History Tobacco Use Types Packs/Day Years [...] often do you attend chur ch or spiritism services? Never 01/24/2022 Do you belong to any clubs o r organizations such as voodoo groups, unions, fraternal or athletic groups, or [...] and heating? Not hard at all 09/02/2022 [facility] - Occupational [...] your living situation today? I have a [facility] place to live 02/16/2023 Education Answer Date Recorded What is the highest level of school you have completed or the highest degree you have received? Bachelor's degree (e.g., BA, AB, BS) 01/24/2022 Sex and Gender Information Value Date Recorded Sex Assigned at Female 01/24/2022 7:37 PM ILLUSIONIST Gender Identity Female 01/24/2022 7:37 PM ILLUSIONIST Sexual Orientation Straight 01/24/2022 7: 37 PM ILLUSIONIST documented as of this encounter Consult Notes * Davon Casey M.D. - 02/20/2023 10:20 AM CST Outpatient Consultation Date of Consultation: 02/20/2023 Referring Physician: Tammie Hooks M.D.,* Chief Complaint/Reason for Consult: No primary diagnosis found. SUBJECTIVE History of Present Illness: Ms. Guevara is a very pleasant 77 y.o. 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 Patient follows with [facility], unfortunately I do not have any outside records. Per patient report, she was diagnosed with microscopic colitis on 2018, for which she completed a 3month course of Entocort and diarrhea resolved. Since then, she reported having at least 1 bowel movements per day, well-formed, although would also reports constipation. For the past 2 months, patient noticed loose stool as well as increased frequency, with worsening urgency for the past month. By this time, she underwent workup at [facility] with GI pathogen panel positive for C diff, fecal elastase 164, fecal calprotectin elevated. Therefore, she underwent a 14 day vancomycin course. Unfortunately, she did not noticed much improvement. Patient had Entocort left from previous microscopic colitis treatment, therefore she reached out to local provider as well as pharmacist who agreed on patient restarting despite Entocort being . Since then, patient has noticed a decrease in bowel movement frequency as well as better consistency, also incomplete evacuation sensation. Has not had a recent EGD and colonoscopy, last on 2017. She remains on budesonide 9 mg daily. In terms of her recent cancer treatment, patient has not undergone systemic chemotherapy. She has only undergone surgery as well as targeted therapy to head and neck. Family history negative for pancreatic cancer, GI conditions. Surgical history positive for hysterectomy. Patient denies tobacco use, alcohol use. Review of Systems: All other systems reviewed and negative unless mentioned in the history of present illness or problem list. History Review: The following portions of the patient's history were reviewed and updated as appropriate: allergies, current medications, family history, medical history, social history, surgical history and problem list. 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 01/26/2022 Hyperlipidemia 01/26/2022 Microscopic Colitis Unspecified 01/26/2022 Nonrheumatic Aortic Valve Insufficiency 01/26/2022 Osteoporosis 10/26/2020 Past surgical history Past Surgical History: Procedure Laterality Date NECK DISSECTION Bilateral 02/01/2022 Procedure: NECK DISSECTION.; Surgeon: Edi Castorena M.D.; Location: [facility] TONSILLECTOMY 1965 TOTAL HYSTERECTOMY 2014 WIDE LOCAL EXCISION Posterior 02/01/2022 Procedure: WIDE LOCAL EXCISION, scalp lesion.; Surgeon: Edi Castorena M.D.; Location: [facility] Medication Current Outpatient Medications on File Prior to Visit Medication Sig Dispense Refill budesonide (Entocort EC) 3 mg 24 hr capsule vancomycin (VANCOCIN) 125 mg capsule TAKE ONE CAPSULE BY MOUTH EVERY SIX HOURS coenzyme Q10 (CO Q-10) 10 mg capsule Take 100 mg by mouth daily. hydrocortisone 2.5 % ointment Apply twice daily to the gluteal cleft/buttock for 1-2 weeks, then asneeded for flares and inflammation. 30 g 2 ketoconazole (NIZORAL) 2 % cream Apply 1 Application topically 2 (two) times a day as needed for rash or irritation. Apply to red, itchy areas on the central face and eyebrows as well as over the supragluteal cleft 60 g 11 levothyroxine (Synthroid) 50 mcg tablet Take 1 tablet (50 mcg total) by mouth daily. 30 tablet 0 levothyroxine (SYNTHROID, LEVOTHROID) 25 mcg tablet Take 1 tablet (25 mcg total) by mouth every morning before breakfast. 90 tablet 2 neomycin-polymyxin B-dexameth (MAXITROL) 3.5 mg/g-10,000 unit/g-0.1 % ophthalmic ointment rosuvastatin (CRESTOR) 10 mg tablet Take 10 mg by mouth at bedtime. UNABLE TO FIND Take 1 each by mouth daily. Med Name: Collagen powder, 1 scoop every morning with cereal No current facility-administered medications on file prior to visit. Social history Social History Socioeconomic History Marital status: Spouse name: Not on file Number of children: Not on file Years of education: Not on file Highest education level: Bachelor's degree (e.g., BA, AB, BS) Occupational History Not on file Tobacco Use Smoking status: Never Smokeless tobacco: Never Vaping Use Vaping Use: never used Substance and Sexual Activity Alcohol use: Not Currently Drug use: Never Sexual activity: Not Currently Partners: Female Other Topics Concern Not on file Social History Narrative Not on file Social Determinants of Health Food Insecurity: No Food Insecurity (02/16/2023) Hunger Vital Sign Worried About Running Out of Food in the Last Year: Never true Ran Out of Food in the Last Year: Never true Transportation Needs: No Transportation Needs (02/16/2023) PRAPARE - Transportation Lack of Transportation (Medical): No Lack of Transportation (Non-Medical): No Physical Activity: Sufficiently Active (02/16/2023) Exercise Vital Sign Days of Exercise per Week: 6 days Minutes of Exercise per Session: 30 min Intimate Partner Violence: Not At Risk (09/02/2022) Humiliation, Afraid, Rape, and Kick questionnaire Fear of Current or Ex-Partner: No Emotionally Abused: No Physically Abused: No Sexually Abused: No Housing Stability: Low Risk (02/16/2023) Housing Stability Housing: Living Situation: I have a steady place to live Family history Family History Problem Relation Age of Onset Dementia Mother Lung cancer Father Dementia Maternal Grandmother Tuberculosis Maternal Grandmother Lung cancer Brother Dementia Sister Alcohol abuse Son OBJECTIVE Vital Signs: There were no vitals filed for this visit. Physical Exam: There were no vitals taken for this visit. General : Alert, cooperative, no distress, appears stated age. Head: Normocephalic, without obvious abnormality, atraumatic. Eyes: PERRL, conjunctiva/corneas clear, EOM's intact. Lungs: Clear to auscultation bilaterally, respirations unlabored. Heart: Regular rate and rhythm, S1 and S2 normal, no murmur. Abdomen: Soft, non-tender, bowel sounds active all four quadrants, no masses, no organomegaly. Extremities: Extremities normal, atraumatic, no cyanosis or edema. Pulses: 2+ and symmetric all extremities. Skin: Skin color, texture, turgor normal, no rashes or lesions. ASSESSMENT / PLAN Ms. Guevara is a very pleasant 77 y.o. 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 # 1 Decreased fecal elastase, query exocrine pancreatic insufficiency # 2 Recent C diff infection status post vancomycin course # 3 History of microscopic colitis # 4 History of constipation Patient recently underwent stool testing which was positive for C diff, as well as low fecal elastase and elevated calprotectin. In this context, it is not possible to diagnose exocrine pancreatic insufficiency based on a fecal elastase as it could have been diluted secondary to C diff diarrhea. Also, we reviewed her cross-sectional imaging which showed a normal-appearing pancreas, no pancreatic duct dilation, no signs of chronic pancreatitis. Of note, she would report intermittent constipationprior to her episode of C diff. lastly, patient does not have any risk factors for chronic pancreatitis. Therefore, we do not think exocrine pancreatic insufficiency EUS an adequate diagnosis and should be disregarded. Since C diff has been treated, patient started Entocort (which has since 2020) noticing improvement in stool consistency and frequency. Of note, it is not clear whether improvement in bowel habit is secondary to Entocort versus normal timeline after C diff infection. Most recently, she started noticing incomplete evacuation. Her recent scan also showed moderate stool burden. I am concerned that there may be a component of constipation as well. Plan: Encourage patient to discontinue Entocort as it has and it is unclear if we are dealing with microscopic colitis. Advised patient to start fiber, either powder, capsules, or gums. Start with 5 g daily, can be increased by 5 g every 1-2 weeks. I will have a phone visit with patient in 2 weeks. If they persist after discontinuing Entocort and initiating fiber, I will reorder stool studies (GIpathogen bowel, fecal calprotectin). If elevated fecal calprotectin, we will proceed with flexible sigmoidoscopy and random colonic biopsies. If calprotectin and GI pathogen panel are negative, we will proceed with EGD for small-bowel aspirates and biopsies, EUS to assess for chronic pancreatitis. PATIENT EDUCATION Ready to learn, no apparent learning barriers were identified; learning preferences include listening. Explained diagnosis and treatment plan; patient expressed understanding of the content. ADMINISTRATIVE BILLING Total time: 45 min Greater than 50% of the visit was spent in counseling and coordination of care. Supervising Physician: Dr. Sandro Mike MD PGY4, [facility] Fellow SIONIST * Brandy Jo M.D. - 02/20/2023 10:20 AM CST Outpatient Supervisory Note Date of Consultation: 02/20/2023 Referring Physician: Tammie Hooks M.D.,* This is a supervisory note for Davon Mike M.D.. I have reviewed the available records, interviewed and examined the patient. I agree with the chief complaint, history of present illness, past medical and surgical history, medications, physical examination, and impression/plan as outlined in Davon Mike M.D.'s note dated today. Chief Complaint/Reason for Consult: No primary diagnosis found. History of Present Illness: Ms. Guevara is a very pleasant 77 y.o. female. The encounter diagnosis was Insufficiency Pancreatic. Assessment/Plan: #1 Insufficiency Pancreatic Ms. Guevara is a very pleasant 77 y.o. female who presents for evaluation and management of No primary diagnosis found.. She is here for a question of pancreatic insufficiency with a fecal elastase of 160 range. She has been having some diarrhea for approximately 2 months. Last 1 month it has increased to 5 times a dayloose stools. Went to [facility]. Enteric pathogen panel and calprotectin done. Calprotectin is elevated in the 70 range. C diff is positive. Two weeks of oral vancomycin given. Finished last week. She was diagnosed with microscopic colitis few years ago and she still has some Entocort remaining. She started taking them for few days now. She is currently having 2 or 3 stools. Her fecal elastase done during the C diff testing came back as reduced in the 160 range. Of note she hasno risk factors like chronic alcoholism recurrent attacks of acute pancreatitis. Her CT scan shows a relatively normal pancreas. Plan: I have told the patient and that I did not particularly see any reason for fecal elastase estimation during the time when C diff was positive and stool testing nor any risk factors for pancreatic insufficiency nor a 167 value of fecal elastase in my practice may not be clinically significant. With the CT scan normal I would think it is extremely low probability that she has any pancreaticproblem like mild early chronic pancreatitis. After 2 weeks she will have a phone call by Dr. Platt. She will immediately. The old prescription of Entocort she is using because a it is outdated, be there is no proof for microscopic colitis and C even if it is relatively nonabsorbable there is no reason to use it now. If after 2 weeks if she has diarrhea and particularly more than 3 liquid stools we will check for stool for C diff and if it is positive we have to think of prolonged vancomycin or some other medication if C diff is negative and calprotectin is elevated we will do flexible sigmoidoscopy and random biopsies for IBD and microscopic colitis recurrence. If both are normal then we will do EGD, small-bowel aspirates and small-bowel biopsies and at the same time EUS to look for any early chronic pancreatitis evidence. She and her are completely satisfied with the plan SIONIST documented in this encounter Plan of Treatment Not on file documented as of this encounter Visit Diagnoses Diagnosis Insufficiency Pancreatic documented in this encounter Care Teams Keysmith Relationship Specialty Start Date End Date Elsewhere, Pcp PCP - General Family Medicine 02/01/22 documented as of this encounter
--- OUTSIDE RECORDS SUMMARY | 2023-04-17 11:46 | XMS_ITS | Encounter Summary ---
Author Name Unknown Organization [facility] Address [address] [place] [address] Care Team Providers Care Grave Digger Name Role Phone Elsewhere, Pcp Primary Care Provider Unavailabl e Reason for Referral * Outpatient (Routine) - Closed Specialty Diagnoses / Procedures Referred By Contact Referred To Contact Gastroenterology and Hepatology Diagnoses Insufficiency Pancreatic Tammie Hooks M.D., Ph.D. [address] [place] [phone] [facility] Referral ID Status Reason Start Date Expiration Date Visits Re quested Visits Authorized [id number] Closed 02/14/2023 02/14/2024 1 1 Scheduling Instructions GIH consult should be scheduled after all testing OMER SERVICE TELLER Encounter Details Date Type Department Care Team (Late st Contact Info) Description 02/14/2023 Orders Only Department of Radiation Oncology in [place], [place] [address] [place] [phone] Renea Arango S, R.N. Insufficiency Pancreatic (Primary [...] week 01/24/2022 How often do you attend [facility] or latter day services? Never 01/24/2022 Do you belong to any clubs o r organizations such as latter day groups, unions, fraternal or athletic groups, or [...] and heating? Not hard at all 09/02/[address] [facility] ional [facility] - Occupational Stress [...] your living situation today? I have a [facility] place to live 02/16/2023 Education Answer Date Recorded What is the highest level of school you have completed or the highest degree you have received? Bachelor's degree (e.g., BA, AB, BS) 01/24/2022 Sex and Gender Information Value Date Recorded Sex Assigned at Female 01/24/2022 7:37 PM CUSTOMER SERVICE TELLER Gender Identity Female 01/24/2022 7:37 PM CUSTOMER SERVICE TELLER Sexual Orientation Straight 01/24/2022 7: 37 PM CUSTOMER SERVICE TELLER documented as of this encounter Plan of Treatment Scheduled Referrals Name Type Priority Associated Diagnoses Order Schedule Gastroenterology and Hepatology - Pancreas gallbladder bile duct consult (clinic) Outpatient Referral Routine Insufficiency Pancreatic Expected: 02/14/2023 (Approximate), Expires: 05/15/2024 documented as of this encounter Visit Diagnoses Diagnosis Insufficiency Pancreatic- Primary documented in this encounter Care Teams Grave Digger Relationship Specialty Start Date End Date Elsewhere, Pcp PCP - General Family Medicine 02/01/22 documented as of this encounter
--- OUTSIDE RECORDS SUMMARY | 2023-04-17 11:46 | XMS_ITS | Encounter Summary ---
Author Name Unknown Organization [facility] Address [address] [place] [address] Care Team Providers Care Retail Service Technician Name Role Phone Elsewhere, Pcp Primary Care Provider Unavailabl e Encounter Details Date Type Department Care Team (Latest Contact Info) Description 01/11/2023 7:49 AM CTRS - 01/11/2023 8:13 AM [facility] Hospital Encounter Department of Laboratory Medicine and Pathology, [facility], in [place], [place] [address] [place] [address] Mc Mcknight M.D., Ph.D. [address] [place] [address] Secondary Malignant Neoplasm Lymph Node (HCC); Squamous Cell Carcinoma Of Skin Of Scalp And Neck; Hypothyroidism Acquired Discharge Disposition: Home or Self [...] often do you attend chur ch or restorationism services? Never 01/24/2022 Do you belong to any clubs o r organizations such as cheondoism groups, unions, fraternal or athletic groups, or [...] and heating? Not hard at all 09/02/2022 [facility] - Occupational Stress [...] your living situation today? I have a [facility] place to live 09/02/2022 Education Answer Date Recorded What is the highest level of school you have completed or the highest degree you have received? Bachelor's degree (e.g., BA, AB, BS) 01/24/2022 Sex and Gender Information Value Date Recorded Sex Assigned at Female 01/24/2022 7:37 PM CTRS Gender Identity Female 01/24/2022 7:37 PM CTRS Sexual Orientation Straight 01/24/2022 7: 37 PM CTRS documented as of this encounter Medications at [...] Procedure Name Priority Date/Time Associated Diagnosis Comments CBC WITH DIFFERENTIAL, B Routine 01/11/2023 8:05 AM CTRS Secondary Malignant Neoplasm Lymph Node (HCC) COMPREHENSIVE METABOLIC PANEL, S/P Routine 01/11/2023 8:05 AM CTRS Secondary Malignant Neoplasm Lymph Node (HCC) TN T4 FREE Routine 01/11/2023 8:01 AM CTRS THYROID FUNCTION CASCADE, S Routine 01/11/2023 8:01 AM CTRS Squamous Cell Carcinoma Of Skin Of Scalp And Neck Hypothyroidism Acquired THYROPEROXIDASE (TPO) ABS, S Routine 01/11/2023 8:01 AM CTRS documented in this encounter Results * Comprehensive Metabolic Panel (01/11/2023 8:05 AM CTRS) Potassium, S 3.7 3.6 - 5.2 mmol/L 01/11/2023 9:00 AM CTRS DTL Sodium, S 141 135 - 145 mmol/L 01/11/2023 9:00 AM CTRS DTL Chloride, S 105 98 - 107 mmol/L 01/11/2023 9:00 AM CTRS DTL Bicarbonate, S 26 22 - 29 mmol/L 01/11/2023 9:00 AM CTRS DTL Anion Gap 10 7 - 15 01/11/2023 9:00 AM CTRS DTL BUN (Blood Urea Nitrogen), S 18 6 - 21 mg/dL 01/11/2023 9:00 AM CTRS DTL Creatinine 0.75 0.59 - 1.04 mg/dL 01/11/2023 9:00 AM CTRS DTL Estimated GFR (eGFR) 82 >=60 mL/min/BS A 01/11/2023 9:00 AM CTRS DTL Comment: Estimated GFR calculated using the 2020 CKD_EPI creatinine equation. Calcium, Total, S 9.6 8.8 - 10.2 mg/dL 01/11/2023 9:00 AM CTRS DTL Glucose, S 76 70 - 140 mg/dL 01/11/2023 9:00 AM CTRS DTL Protein, Total, S 6.7 6.3 - 7.9 g/dL 01/11/2023 9:00 AM CTRS DTL Albumin, S 4.4 3.5 - 5.0 g/dL 01/11/2023 9:00 AM CTRS DTL Aspartate Aminotransferase (AST), S 34 8 - 43 U/L 01/11/2023 9:00 AM CTRS DTL Alkaline Phosphatase, S 92 35 - 104 U/L 01/11/2023 9:00 AM CTRS DTL Alanine Aminotransferase (ALT), S 19 7 - 45 U/L 01/11/2023 9:00 AM CTRS DTL Bilirubin, Total, S 0.4 0.0 - 1.2 mg/dL 01/11/2023 9:00 AM CTRS DTL Blood (Blood, Venous) 01/11/2023 8:05 AM CTRS 01/11/2023 8:38 AM CTRS Mc Mcknight M.D., Ph.D. LAB BLOO D ADD-ON [facility] [address] [place] [address], [facility] [address] [place] [address] * (ABNORMAL) CBC with Differential, Blood (01/11/2023 8:05 AM CTRS) Hemoglobin 13.3 11.6 - 15.0 g/dL 01/11/2023 9:22 AM CTRS DHPM Hematocrit 40.7 35.5 - 44.9 % 01/11/2023 9:22 AM CTRS DHPM Erythrocytes 4.46 3.92 - 5.13 x10(12)/L 01/11/2023 9:22 AM CTRS DHPM MCV 91.3 78.2 - 97.9 fL 01/11/2023 9:22 AM CTRS DHPM RBC Distrib Width 12.8 12.2 - 16.1 % 01/11/2023 9:22 AM CTRS DHPM Platelet Count 217 157 - 371 x10(9)/L 01/11/2023 9:22 AM CTRS DHPM Leukocytes 5.9 3.4 - 9.6 x10(9)/L 01/11/2023 9:22 AM CTRS DHPM Neutrophils 4.52 1.56 - 6.45 x10(9)/L 01/11/2023 9:22 AM CTRS DHPM Lymphocytes 0.75(L) 0.95 - 3.07 x10(9)/L 01/11/2023 9:22 AM CTRS DHPM Monocytes 0.45 0.26 - 0.81 x10(9)/L 01/11/2023 9:22 AM CTRS DHPM Eosinophils 0.11 0.03 - 0.48 x10(9)/L 01/11/2023 9:22 AM CTRS DHPM Basophils 0.03 0.01 - 0.08 x10(9)/L 01/11/2023 9:22 AM CTRS DHPM Blood (Blood, Venous) 01/11/2023 8:05 AM CTRS 01/11/2023 8:27 AM CTRS Mc Mcknight M.D., Ph.D. LAB BLOO D ADD-ON [facility] [address] [place] [address], [facility] [address] [place] [address] * T4 (Thyroxine), Free, Serum (01/11/2023 8:01 AM CTRS) Pathologist [facility] T4 (Thyroxine), Free, S 1.3 0.9 - 1.7 ng/dL 01/11/2023 11:09 AM CTRS DTL Blood 01/11/2023 8:01 AM CTRS 01/11/2023 10:14 AM CTRS Tammie Hooks M.D., Ph.D. LAB BLOOD A DD-ON Performing Organization Address City/[facility]/ZIP Co de Phone Number [facility] [address] [place] [address] * Thyroperoxidase (TPO) Antibodies (01/11/2023 8:01 AM CTRS) Pathologist [facility] Thyroperoxidase Ab, S <15.0 <34.0 IU/mL 01/11/2023 11:09 AM CTRS DT Blood 01/11/2023 8:01 AM CTRS 01/11/2023 10:14 AM CTRS Tammie Hooks M.D., Ph.D. LAB BLOOD A DD-ON Performing Organization Address [facility] Co de Phone Number [facility] [address] [place] [address] * (ABNORMAL) Thyroid Function [place] (01/11/2023 8:01 AM CTRS) Pathologist [facility] TSH, Sensitive 9.6(H) 0.3 - 4.2 mIU/L 01/11/2023 10:48 AM CTRS DT Blood (Blood, Venous) 01/11/2023 8:01 AM CTRS 01/11/2023 10:14 AM CTRS Tammie Hooks M.D., Ph.D. LAB BLOOD A DD-ON Performing Organization Address City/[facility] Co de Phone Number [facility] [address] [facility] [address] [place] [address] documented in this encounter Visit Diagnoses Diagnosis Secondary Malignant Neoplasm Lymph Node (HCC) Squamous Cell Carcinoma Of Skin Of Scalp And Neck Hypothyroidism Acquired documented in this encounter Care Teams Retail Service Technician Relationship Specialty Start Date End Date Elsewhere, Pcp PCP - General Family Medicine 02/01/22 documented as of this encounter
--- OUTSIDE RECORDS SUMMARY | 2023-04-17 11:46 | XMS_ITS | Encounter Summary ---
Author Name Unknown Organization [facility] Address [address] [place] [address] Care Team Providers Care Battery Checker Name Role Phone Elsewhere, Pcp Primary Care Provider Unavailabl e Encounter Details Date Type Department Care Team (Late st Contact Info) Description 03/02/2023 Orders Only Department of Radiation Oncology in [place], [place] [address] [place] [address] Karina Garcia APRN, C.N.P., M.S.N. [address] [place] [address] Social History Tobacco Use Types Packs/Day Years [...] any clubs o r organizations such as rastafari groups, unions, fraternal or athletic groups, or [...] and heating? Not hard at all 09/02/2022 [facility] - Occupational [...] your living situation today? I have a [facility] place to live 02/16/2023 Education Answer Date Recorded What is the highest level of school you have completed or the highest degree you have received? Bachelor's degree (e.g., BA, AB, BS) 01/24/2022 Sex and Gender Information Value Date Recorded Sex Assigned at Female 01/24/2022 7:37 PM DATABASE SEC[employer]ITY EXP[employer] Gender Identity Female 01/24/2022 7:37 PM DATABASE SECURITY EXPERT Sexual Orientation Straight 01/24/2022 7: 37 PM DATABASE SECURITY EXPERT documented as of this encounter Plan of Treatment Not on file documented as of this encounter Visit Diagnoses Not on filedocumented in this encounter Care Teams Battery Checker Relationship Specialty Start Date End Date Elsewhere, Pcp PCP - General Family Medicine 02/01/22 documented as of this encounter
--- OUTSIDE RECORDS SUMMARY | 2023-04-17 11:46 | XMS_ITS | Encounter Summary ---
Author Name Unknown Organization [facility] Address [address] [place] [address] Care Team Providers Care Tool Specialist Name Role Phone Elsewhere, Pcp Primary Care Provider Unavailabl e Reason for Referral * MRI/CAT/PET Scan (Routine) - Closed Specialty Diagnoses / Procedures Referred By Ryan cronin Referred To Contact Radiology Diagnoses Squamous Cell Carcinoma Of Skin Of Scalp And Neck Malignant Neoplasm Of Neck Squamous Cell Procedures CT Neck Soft Tissue with IV Contrast Blanche Monzon P.A.-C., M.S. [address] [place] [address] [facility] Referral ID Status Reason Start Date Expiration Date Visits Re quested Visits Authorized [id number] Closed 01/11/2023 01/11/2024 1 1 RVISOR ACCOUNTS RECEIVABLE * MRI/CAT/PET Scan (Routine) - Closed Specialty Diagnoses / Procedures Referred By Ryan cronin Referred To Contact Radiology Diagnoses Squamous Cell Carcinoma Of Skin Of Scalp And Neck Malignant Neoplasm Of Neck Squamous Cell Procedures CT Abdomen Pelvis with IV Contrast Blanche Monzon P.A.-C., M.S. [address] [place] [address] [facility] Referral ID Status Reason Start Date Expiration Date Visits Re quested Visits Authorized [id number] Closed 01/11/2023 01/11/2024 1 1 RVISOR ACCOUNTS RECEIVABLE * MRI/CAT/PET Scan (Routine) - Closed Specialty Diagnoses / Procedures Referred By Ryan t Referred To Contact Radiology Diagnoses Squamous Cell Carcinoma Of Skin Of Scalp And Neck Malignant Neoplasm Of Neck Squamous Cell Procedures CT Chest with IV Contrast Blanche Monzon P.A.-C., M.S. [address] [place] [phone] [facility] Referral ID Status Reason Start Date Expiration Date Visits Re quested Visits Authorized [id number] Closed 01/11/2023 01/11/2024 1 1 RVISOR ACCOUNTS RECEIVABLE * Outpatient (Routine) - Closed Specialty Diagnoses / Procedures Referred By Contac t Referred To Contact Oncology Blanche Monzon P.A.-C., M.S. [address] [place] [phone] Mc Mcknight M.D., Ph.D. [address] [place] [phone] Referral ID Status Reason Start Date Expiration Date Visits Re quested Visits Authorized [id number] Closed 01/11/2023 01/10/2026 1 1 RVISOR ACCOUNTS RECEIVABLE Reason for Visit * Outpatient (Routine) - Closed Specialty Diagnoses / Procedures Referred By Contac t Referred To Contact Oncology Mc Mcknight M.D., Ph.D. [address] [place] [phone] [facility] Referral ID Status Reason Start Date Expiration Date Visits Re quested Visits Authorized [id number] Closed 09/28/2022 09/27/2025 1 1 Encounter Details Date Type Department Care Team (Late st Contact Info) Description 01/11/2023 1:40 PM SUPERVISOR ACCOUNTS RECEIVABLE Office Visit Department of Oncology in [place], [place] [address] [place] [address] Blanche Monzon P.A.-C., M.S. [address] [place] [address] Squamous Cell Carcinoma Of Skin Of Scalp And Neck (Primary Dx); Malignant Neoplasm Of Neck Squamous Cell Social History Tobacco Use Types Packs/Day Years [...] any clubs o r organizations such as hoahaoism groups, unions, fraternal or athletic groups, or [...] and heating? Not hard at all 09/02/2022 [facility] - Occupational Stress [...] Date Recorded Dental: Regular Dentist Yes 01/25/20 22 Employment Answer Date Recorded Employment status Retired 01/24/2022 Housing Stability Answer Date Recorded What is your living situation today? I have a [facility] place to live 09/02/2022 Education Answer Date Recorded What is the highest level of school you have completed or the highest degree you have received? Bachelor's degree (e.g., BA, AB, BS) 01/24/2022 Sex and Gender Information Value Date Recorded Sex Assigned at Female 01/24/2022 7:37 PM SUPERVISOR ACCOUNTS RECEIVABLE Gender Identity Female 01/24/2022 7:37 PM SUPERVISOR ACCOUNTS RECEIVABLE Sexual Orientation Straight 01/24/2022 7: 37 PM SUPERVISOR ACCOUNTS RECEIVABLE documented as of this encounter Last Filed Vital Signs Vital Sign Reading Time Taken Comments Blood Pressure 95/47 01/11/2023 1:42 PM SUPERVISOR ACCOUNTS RECEIVABLE Pulse 79 01/11/2023 1:42 PM SUPERVISOR ACCOUNTS RECEIVABLE Temperature 36.7 ??C (98.1 ??F) 01/11/2023 1:42 PM CS T Respiratory Rate 16 01/11/2023 1:42 PM SUPERVISOR ACCOUNTS RECEIVABLE Oxygen Saturation 94% 01/11/2023 1:42 PM SUPERVISOR ACCOUNTS RECEIVABLE Inhaled Oxygen Concentration - - Weight 59.8 kg (131 lb 13.4 oz) 01/11/2023 1:42 PM SUPERVISOR ACCOUNTS RECEIVABLE Height 160.6 cm (5' 3.23) 01/11/2023 1:42 PM CS T Body Mass Index 23.19 01/11/2023 1:42 PM SUPERVISOR ACCOUNTS RECEIVABLE documented in this encounter Progress Notes * Blanche Monzon P.A.-C., M.S. - 01/11/2023 1:40 PM CST SUBJECTIVE REQUESTING PROVIDER Mc Mcknight M.D., Ph.D. [address] [place] [phone] PRIMARY COLLABORATING PROVIDER Mc Mcknight M.D., Ph.D. Blanche Monzon P.A.-C., M.S. COLLABORATING PROVIDER TODAY Remigio Frey M.D., Ph.D. CHIEF CONCERN Veronica Guevara is a 77 y.o. 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 Presents today for clinical evaluation, lab review, and imaging review. HISTORY OF PRESENT ILLNESS Oncology History Oncology History Malignant Neoplasm Of Neck Squamous Cell 07/2021 Initial Diagnosis July 2021: Noticed a lesion on the vertex of the scalp. Evaluated by desktop analyst Dr. Banuelos in [place] and was treated for possible psoriasis. The lesion persisted after 6 weeks. She was then treated with UV phototherapy between September and December of 2021. September 22, 2021---December 17, 2021: Underwent biopsy of the vertex scalp lesion which revealed squamous cell carcinoma. Incisional biopsy of left level 5 lymph node also revealed squamous cell carcinoma. 12/30/2021 Biopsy/Pathology A. Skin, scalp, vertex, excisional biopsy ([id number]; 12/30/2021): Invasive poorly differentiated squamous cell carcinoma, transected at base and lateral edge of the specimen. B. Neck, left, soft tissue, biopsy ([id number]; 01/13/2022): Invasive poorly differentiated squamous cell carcinoma [...] Goal: Curative Planned Treatment Start Date: 03/15/2022 INTERVAL HISTORY Veronica Guevara presents to clinic today unaccompanied. She was last seen in clinic in September and reports doing well since this time. REVIEW OF SYSTEMS A 14-point review of systems was completed and negative except as noted above in the interval history. OBJECTIVE PAST MEDICAL/SURGICAL HISTORY Past Medical History: Diagnosis Date Hyperlipidemia Regurgitation Aortic Past Surgical History: Procedure Laterality Date NECK DISSECTION Bilateral 02/01/2022 Procedure: NECK DISSECTION.; Surgeon: Edi Castorena M.D.; Location: [facility] OR WIDE LOCAL EXCISION Posterior 02/01/2022 Procedure: WIDE LOCAL EXCISION, scalp lesion.; Surgeon: Edi Castorena M.D.; Location: [facility] OR ALLERGIES Allergies Allergen Reactions Penicillins Other (see comments) Family History of allergy but has never taken herself. Patient tolerated Duricef Pollen Extracts Itching Sulfa (Sulfonamide Antibiotics) Other (see comments) MEDICATIONS Active Home Medications Medication Sig Taking coenzyme Q10 (CO Q-10) 10 mg capsule Take 100 mg by mouth daily. hydrocortisone 2.5 % ointment Apply twice daily to the gluteal cleft/buttock for 1-2 weeks, then asneeded for flares and inflammation. ketoconazole (NIZORAL) 2 % cream Apply 1 Application topically 2 (two) times a day as needed for rash or irritation. Apply to red, itchy areas on the central face and eyebrows as well as over the supragluteal cleft levothyroxine (Synthroid) 50 mcg tablet Take 1 tablet (50 mcg total) by mouth daily. levothyroxine (SYNTHROID, LEVOTHROID) 25 mcg tablet Take 1 tablet (25 mcg total) by mouth every morning before breakfast. neomycin-polymyxin B-dexameth (MAXITROL) 3.5 mg/g-10,000 unit/g-0.1 % ophthalmic ointment rosuvastatin (CRESTOR) 10 mg tablet Take 10 mg by mouth at bedtime. UNABLE TO FIND Take 1 each by mouth daily. Med Name: Collagen powder, 1 scoop every morning with cereal SOCIAL HISTORY Veronica Guevara lives in [place], [place], with her spouse, Andre. PHYSICAL EXAMINATION ECOG performance score: 0 - asymptomatic BP (!) 95/47 (BP Location: Left arm) Pulse 79 Temp 36.7 ??C (Tympanic) Resp 16 Ht 160.6 cm Wt 59.8 kg SpO2 94% BMI 23.19 kg/m?? General: Well-developed female sitting comfortably in clinic room. Eyes: Extraocular movements intact. ENT: Mucous membranes moist. Cardiovascular: Regular rate and rhythm. No murmurs, rubs, or gallops. Lungs: Clear to auscultation bilaterally. No use of accessory muscles. No rales, rhonchi, or wheezes. Extremities: No edema or cyanosis. Musculoskeletal: Normal range of motion. No swollen or erythematous joints. Skin: Warm and dry. No clinical evidence of recurrent squamous cell carcinoma on the scalp. Neurological: Alert and oriented x 3. Psychiatry: No overt anxiety or depression. DIAGNOSTICS LABORATORY DATA Recent Results (from the past 24 hour(s)) Thyroid Function Gem Collection Time: 01/11/23 8:01 AM Result Value TSH, Sensitive 9.6 (H) Thyroperoxidase (TPO) Antibodies Collection Time: 01/11/23 8:01 AM Result Value Thyroperoxidase Ab, S <15.0 T4 (Thyroxine), Free, Serum Collection Time: 01/11/23 8:01 AM Result Value T4 (Thyroxine), Free, S 1.3 CBC with Differential, Blood Collection Time: 01/11/23 8:05 AM Result Value Hemoglobin 13.3 Hematocrit 40.7 Erythrocytes 4.46 MCV 91.3 RBC Distrib Width 12.8 Platelet Count 217 Leukocytes 5.9 Neutrophils 4.52 Lymphocytes 0.75 (L) Monocytes 0.45 Eosinophils 0.11 Basophils 0.03 Comprehensive Metabolic Panel Collection Time: 01/11/23 8:05 AM Result Value Potassium, S 3.7 Sodium, S 141 Chloride, S 105 Bicarbonate, S 26 Anion Gap 10 BUN (Blood Urea Nitrogen), S 18 Creatinine 0.75 Estimated GFR (eGFR) 82 Calcium, Total, S 9.6 Glucose, S 76 Protein, Total, S 6.7 Albumin, S 4.4 Aspartate Aminotransferase (AST), S 34 Alkaline Phosphatase, S 92 Alanine Aminotransferase (ALT), S 19 Bilirubin, Total, S 0.4 Creatinine, POCT Collection Time: 01/11/23 8:30 AM Result Value Estimated GFR (eGFR), POCT 89 Creatinine, POCT Collection Time: 01/11/23 8:30 AM Result Value Creatinine, POCT, B 0.[address] neck, chest, abdomen, and pelvis obtained today revealed no evidence of malignancy. MRI brain obtained today approximately 0.8 cm flat indeterminate left posterior scalp enhancing cutaneous and subcutaneous lesion at the posterior aspect of the resection bed appears similar to slightly less prominent on the 09/09/[address] This remains indeterminate. Abnormal decreased T1 marrow signal involving the underlying left parietal bone extending slightly across the midline into the right parietal bone is indeterminate. ASSESSMENT / PLAN #1 Squamous Cell Carcinoma Of Skin Of Scalp And Neck #2 Malignant Neoplasm Of Neck Squamous Cell Veronica Guevara is a 77 y.o. 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 Presents today for clinical evaluation, lab review, and imaging review. Clinically patient is feeling well. Labs unremarkable. CT neck, chest, abdomen, and pelvis obtained today revealed no evidence of malignancy. MRI brain obtained today approximately 0.8 cm flat indeterminate left posterior scalp enhancing cutaneous and subcutaneous lesion at the posterior aspect of the resection bed appears similar to slightly less prominent on the 09/09/[address] Abnormal decreased T1 marrow signal involving the underlying left parietal bone extending slightly across the midline into the right parietal bone. Both of these findings are indeterminate. There is no evidence of malignancy on clinical exam. Plan to see radiation oncology following our visit today and dermatology in March. We will plan to have her return to clinic in 3 months for next surveillance visit. PATIENT EDUCATION Ready to learn, no apparent learning barriers were identified; learning preferences include listening. Explained diagnosis and treatment plan; patient expressed understanding of the content. Discussed with the patient we work together as a care team of physicians, nurse practitioners/physician assistants, nurses and other support coordinator that specialize in this cancer. Also, reviewed the importance of maintaining ongoing care with local oncology team and primary care physician. RVISOR ACCOUNTS RECEIVABLE documented in this encounter Plan of Treatment Scheduled Referrals Name Type Priority Associated Diagnoses Orde r Schedule Oncology office visit (clinic) Outpatient Referral Routine Expected: 04/13/2023 (Approximate), Expires: 04/13/2024 documented as of this encounter Results * CT Neck Soft Tissue with IV Contrast (04/13/2023 10:36 AM SUPERVISOR ACCOUNTS RECEIVABLE) Anatomical Region Laterality Modality Neck, Neuroradiology RST LOS , Neuroradiology ARZ LOS, Neuroradiology FLA LOS N/A Computed Tomography, Compute d Tomography 04/13/2023 10:2 2 AM SUPERVISOR ACCOUNTS RECEIVABLE Impressions 04/13/2023 11:06 AM SUPERVISOR ACCOUNTS RECEIVABLE Stable exam since 01/11/2023. Nothing for residual/recurrent squamous cell carcinoma. Narrative 04/13/2023 11:06 AM SUPERVISOR ACCOUNTS RECEIVABLE EXAM: CT NECK SOFT TISSUE WITH IV CONTRAST COMPARISON: [facility] soft tissue neck CT with IV contrast [...] within the lung apices. Bilateral cataract surgery. [id number] generalized cerebral and cerebellar volume loss. Remainder normal. Procedure Note Philip Birmingham M.D., Ph.D. - 04/13/2023 EXAM: CT NECK SOFT TISSUE WITH IV CONTRAST COMPARISON: [facility] soft tissue neck CT with IV contrast [...] gland.Scarring within the lung apices. Bilateral cataract surgery.[id number] generalized cerebral and cerebellar volume loss. Remainder normal. IMPRESSION: Stable exam since 01/11/2023. Nothing for residual/recurrent squamous cellcarcinoma. Blanche Monzon P.A.-C. M.S. IMG CT P ROCEDURES * CT Abdomen Pelvis with IV Contrast (04/13/2023 10:36 AM SUPERVISOR ACCOUNTS RECEIVABLE) Anatomical Region Laterality Modality Abdomen, Pelvis, Abdominal R ST LOS, Abdominal ARZ LOS, Abdominal FLA LOS N/A Computed Tomograp hy, Computed Tomography 04/13/2023 10:2 1 AM SUPERVISOR ACCOUNTS RECEIVABLE Impressions 04/13/2023 10:33 AM SUPERVISOR ACCOUNTS RECEIVABLE No evidence for metastatic disease in the abdomen or pelvis. Narrative 04/13/2023 10:33 AM SUPERVISOR ACCOUNTS RECEIVABLE EXAM: ??CT ABDOMEN PELVIS WITH IV CONTRAST [...] Chest with IV Contrast (04/13/2023 10:36 AM SUPERVISOR ACCOUNTS RECEIVABLE) Anatomical Region Laterality Modality Chest, Thoracic RST LOS, Tho racic ARZ LOS, Thoracic ARZ LOS, Thoracic FLA LOS N/A Computed Tomography, Compute d Tomography 04/13/2023 10:2 2 AM SUPERVISOR ACCOUNTS RECEIVABLE Impressions 04/13/2023 12:54 PM SUPERVISOR ACCOUNTS RECEIVABLE Stable exam including tiny pulmonary nodules. Narrative 04/13/2023 12:54 PM SUPERVISOR ACCOUNTS RECEIVABLE EXAM: CT CHEST WITH IV CONTRAST COMPARISON: [...] exam including tiny pulmonary nodules. Blanche Monzon P.A.-C. M.S. IMG CT P ROCEDBRENT * (ABNORMAL) CBC with Differential, Blood (04/13/2023 7:54 AM SUPERVISOR ACCOUNTS RECEIVABLE) Hemoglobin 13.0 11.6 - 15.0 g/dL 04/13/2023 8:32 AM SUPERVISOR ACCOUNTS RECEIVABLE DTL Hematocrit 38.7 35.5 - 44.9 % 04/13/2023 8:32 AM SUPERVISOR ACCOUNTS RECEIVABLE DTL Erythrocytes 4.43 3.92 - 5.13 x10(12)/L 04/13/2023 8:32 AM SUPERVISOR ACCOUNTS RECEIVABLE DTL MCV 87.4 78.2 - 97.9 fL 04/13/2023 8:32 AM SUPERVISOR ACCOUNTS RECEIVABLE DTL RBC Distrib Width 12.3 12.2 - 16.1 % 04/13/2023 8:32 AM SUPERVISOR ACCOUNTS RECEIVABLE DTL Platelet Count 286 157 - 371 x10(9)/L 04/13/2023 8:32 AM SUPERVISOR ACCOUNTS RECEIVABLE DTL Leukocytes 4.2 3.4 - 9.6 x10(9)/L 04/13/2023 8:32 AM SUPERVISOR ACCOUNTS RECEIVABLE DTL Neutrophils 2.63 1.56 - 6.45 x10(9)/L 04/13/2023 8:32 AM SUPERVISOR ACCOUNTS RECEIVABLE DHPM Lymphocytes 0.87(L) 0.95 - 3.07 x10(9)/L 04/13/2023 8:32 AM SUPERVISOR ACCOUNTS RECEIVABLE DTL Monocytes 0.39 0.26 - 0.81 x10(9)/L 04/13/2023 8:32 AM SUPERVISOR ACCOUNTS RECEIVABLE DTL Eosinophils 0.23 0.03 - 0.48 x10(9)/L 04/13/2023 8:32 AM SUPERVISOR ACCOUNTS RECEIVABLE DTL Basophils 0.04 0.01 - 0.08 x10(9)/L 04/13/2023 8:32 AM SUPERVISOR ACCOUNTS RECEIVABLE DTL Blood (Blood, Venous) 04/13/2023 7:54 AM SUPERVISOR ACCOUNTS RECEIVABLE 04/13/2023 8:18 AM SUPERVISOR ACCOUNTS RECEIVABLE Blanche Monzon P.A.-C. MMehul LAB BLOO D ADD-ON [facility] [address] [place] [address], [facility] DTL [facility] [address] [place] [address] [facility] [address] [place] [address] * Comprehensive Metabolic Panel (04/13/2023 7:54 AM SUPERVISOR ACCOUNTS RECEIVABLE) Pathologist [facility] Potassium, S 4.3 3.6 - 5.2 mmol/L 04/13/2023 9:00 AM SUPERVISOR ACCOUNTS RECEIVABLE DTL Sodium, S 139 135 - 145 mmol/L 04/13/2023 9:00 AM SUPERVISOR ACCOUNTS RECEIVABLE DTL Chloride, S 102 98 - 107 mmol/L 04/13/2023 9:00 AM SUPERVISOR ACCOUNTS RECEIVABLE DTL Bicarbonate, S 26 22 - 29 mmol/L 04/13/2023 9:00 AM SUPERVISOR ACCOUNTS RECEIVABLE DTL Anion Gap 11 7 - 15 04/13/2023 9:00 AM SUPERVISOR ACCOUNTS RECEIVABLE DTL BUN (Blood Urea Nitrogen), S 14 6 - 21 mg/dL 04/13/2023 9:00 AM SUPERVISOR ACCOUNTS RECEIVABLE DTL Creatinine 0.76 0.59 - 1.04 mg/dL 04/13/2023 9:00 AM SUPERVISOR ACCOUNTS RECEIVABLE DTL Estimated GFR (eGFR) 81 >=60 mL/min/BS A 04/13/2023 9:00 AM SUPERVISOR ACCOUNTS RECEIVABLE DTL Comment: Estimated GFR calculated using the 2020 CKD_EPI creatinine equation. Calcium, Total, S 9.4 8.8 - 10.2 mg/dL 04/13/2023 9:00 AM SUPERVISOR ACCOUNTS RECEIVABLE DTL Glucose, S 95 70 - 140 mg/dL 04/13/2023 9:00 AM SUPERVISOR ACCOUNTS RECEIVABLE DTL Protein, Total, S 6.4 6.3 - 7.9 g/dL 04/13/2023 9:00 AM SUPERVISOR ACCOUNTS RECEIVABLE DTL Albumin, S 4.2 3.5 - 5.0 g/dL 04/13/2023 9:00 AM SUPERVISOR ACCOUNTS RECEIVABLE DTL Aspartate Aminotransferase (AST), S 36 8 - 43 U/L 04/13/2023 9:00 AM SUPERVISOR ACCOUNTS RECEIVABLE DTL Alkaline Phosphatase, S 97 35 - 104 U/L 04/13/2023 9:00 AM SUPERVISOR ACCOUNTS RECEIVABLE DTL Alanine Aminotransferase (ALT), S 23 7 - 45 U/L 04/13/2023 9:00 AM SUPERVISOR ACCOUNTS RECEIVABLE DTL Bilirubin, Total, S 0.3 0.0 - 1.2 mg/dL 04/13/2023 9:00 AM SUPERVISOR ACCOUNTS RECEIVABLE DTL Blood (Blood, Venous) 04/13/2023 7:54 AM SUPERVISOR ACCOUNTS RECEIVABLE 04/13/2023 8:28 AM SUPERVISOR ACCOUNTS RECEIVABLE Blanche Monzon P.A.-C. M.S. LAB YAMILETH Alman[facility] ADD-ON [facility] [address] [place] [address], [facility] [address] [place] [address] documented in this encounter Visit Diagnoses Diagnosis Squamous Cell Carcinoma Of Skin Of Scalp And Neck- Primary Malignant Neoplasm Of Neck Squamous Cell Squamous Cell Carcinoma Of Skin Of Scalp And Neck Malignant Neoplasm Of Neck Squamous Cell documented in this encounter Care Teams Tool Specialist Relationship Specialty Start Date End Date Elsewhere, Pcp PCP - General Family Medicine 02/01/22 documented as of this encounter
--- OUTSIDE RECORDS SUMMARY | 2023-04-17 11:46 | XMS_ITS | Encounter Summary ---
Author Name Unknown Organization [facility] Address [address] [place] [address] Care Team Providers Care [employer] Forces Communications Sergeant Name Role Phone Elsewhere, Pcp Primary Care Provider Unavailabl e Encounter Details Date Type Department Care Team (Late st Contact Info) Description 02/10/2023 Orders Only Department of Radiation Oncology in [place], [place] [address] [place] [address] Renea Arango S, R.N. Social History Tobacco Use Types Packs/Day Years [...] often do you attend chur ch or amish services? Never 01/24/2022 Do you belong to any clubs o r organizations such as yazdanism groups, unions, fraternal or athletic groups, or [...] Not hard at all 09/02/2022 [facility] - Occupational Stress Questionnaire Answer Date [...] your living situation today? I have a [facility] place to live 09/02/2022 Education Answer Date Recorded What is the highest level of school you have completed or the highest degree you have received? Bachelor's degree (e.g., BA, AB, BS) 01/24/2022 Sex and Gender Information Value Date Recorded Sex Assigned at Female 01/24/2022 7:37 PM STAGE ELECTRICIAN HELPER Gender Identity Female 01/24/2022 7:37 PM STAGE ELECTRICIAN HELPER Sexual Orientation Straight 01/24/2022 7: 37 PM STAGE ELECTRICIAN HELPER documented as of this encounter Plan of Treatment Not on file documented as of this encounter Visit Diagnoses Not on filedocumented in this encounter Care Teams [employer] Communications Sergeant Relationship Specialty Start Date End Date Elsewhere, Pcp PCP - General Family Medicine 02/01/22 documented as of this encounter
--- OUTSIDE RECORDS SUMMARY | 2023-04-17 11:46 | XMS_ITS | Encounter Summary ---
Author Name Unknown Organization [facility] Address [address] [place] [address] Care Team Providers Care Respiratory Scientist Name Role Phone Elsewhere, Pcp Primary Care Provider Unavailabl e Reason for Referral * MRI/CAT/PET Scan (Routine) - Closed Specialty Diagnoses / Procedures Referred By Ryan t Referred To Contact Radiology Diagnoses Squamous Cell Carcinoma Of Skin Of Scalp And Neck Procedures MR Brain without and with IV Contrast MR Brain without IV Contrast MS MRI BRAIN WO CNTRST HC MRI BRAIN WO Tammie Levine M.D., Ph.D. [address] [place] [address] [facility] Referral ID Status Reason Start Date Expiration Date Visits Re quested Visits Authorized [id number] Closed 08/23/2022 08/23/2023 1 1 X CLERK Reason for Visit * MRI/CAT/PET Scan (Routine) - Closed Specialty Diagnoses / Procedures Referred By Contac t Referred To Contact Radiology Diagnoses Squamous Cell Carcinoma Of Skin Of Scalp And Neck Procedures MR Brain without and with IV Contrast MR Brain without IV Contrast MS MRI BRAIN WO CNTRST HC MRI BRAIN WO Tammie Levine M.D., Ph.D. [address] [place] [address] [facility] Referral ID Status Reason Start Date Expiration Date Visits Re quested Visits Authorized [id number] Closed 08/23/2022 08/23/2023 1 1 Encounter Details Date Type Department Care Team (Latest Contact Info) Description 01/11/2023 9:10 AM INDEX CLERK - 01/11/2023 10:50 AM [facility] Hospital Encounter Department of Radiology, [facility] [place], [place] [address] [place] [address] Tammie Hooks M.D., Ph.D. [address] [place] [address] Squamous Cell Carcinoma Of Skin Of Scalp And Neck Discharge Disposition: Home or Self Care Social [...] week 01/24/2022 How often do you attend [facility] or mormonism services? Never 01/24/2022 Do you belong to any clubs o r organizations such as holiness groups, unions, fraternal or athletic groups, or [...] and heating? Not hard at all 09/02/2022 [facility] [place] of Occupat ional Health - Occupational Stress [...] your living situation today? I have a [facility] place to live 09/02/2022 Education Answer Date Recorded What is the highest level of school you have completed or the highest degree you have received? Bachelor's degree (e.g., BA, AB, BS) 01/24/2022 Sex and Gender Information Value Date Recorded Sex Assigned at Female 01/24/2022 7:37 PM INDEX CLERK Gender Identity Female 01/24/2022 7:37 PM INDEX CLERK Sexual Orientation Straight 01/24/2022 7: 37 PM INDEX CLERK documented as of this encounter Medications at [...] Procedure Name Priority Date/Time Associated Diagnosis Comments MR BRAIN WITHOUT AND WITH IV CONTRAST RAD - Routine (most inpatients and all outpatients) 01/11/2023 10:25 AM INDEX CLERK Squamous Cell Carcinoma Of Skin Of Scalp And Neck documented in this encounter Results * MR Brain without and with IV Contrast (01/11/2023 10:25 AM INDEX CLERK) Anatomical Region Laterality Modality Head, Brain, Neuroradiology RST LOS, Neuroradiology ARZ LOS, Neuroradiology FLA LOS N/A Magnetic Resonance 01/11/2023 10:3 4 AM INDEX CLERK Impressions 01/11/2023 11:24 AM INDEX CLERK 1. Approximately 0.8cm flat indeterminate left posterior scalp enhancing cutaneous and subcutaneous lesion at the posterior aspect of the resection bed appears similar to slightly less prominent on the 09/09/[address] This remains indeterminate and continued imaging follow-up is recommended. 2. Abnormal decreased T1 marrow signal involving the underlying left parietal bone extending slightly across the midline into the right parietal bone is indeterminate and also warrants follow-up. Narrative 01/11/2023 11:24 AM INDEX CLERK EXAM: MR BRAIN WITHOUT AND WITH IV CONTRAST COMPARISON: CT head with IV contrast 09/09/2022 FINDINGS: Approximately 0.8 cm left posterior scalp vertex flat enhancing cutaneous/subcutaneous lesion (series 16, image 156). Thinning of the cutaneous and subcutaneous tissues overlying the vertex. Abnormal decreased T1 marrow signal involving the underlying left parietal bone extending slightly across the midline in the right parietal bone. No definite focal osseous lesion identified on the prior CT. Approximately 1 cm probable prominent arachnoid granulation or hemangioma in the right posterior parietal bone near the lambdoid suture. Mild to moderate cerebral parenchymal atrophy with ex vacuo dilatation of ventricles. Mild to moderate scattered leukoaraiosis. Normal intracranial flow voids. Bilateral lens replacements. 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 Procedure Note Carlos Medina M.D. - 01/11/2023 EXAM: MR BRAIN WITHOUT AND WITH IV CONTRAST COMPARISON: CT head with IV contrast 09/09/2022 FINDINGS: Approximately 0.8 cm left posterior scalp vertex flat enhancingcutaneous/subcutaneous lesion (series 16, image 156). Thinning of thecutaneous and subcutaneous tissues overlying the vertex. Abnormaldecreased T1 marrow signal involving the underlying left parietal bone extending slightly across the midline in theright parietal bone. No definite focal osseous lesion identified on theprior CT. Approximately 1 cm probable prominent arachnoid granulation or hemangiomain the right posterior parietal bone near the lambdoid suture. Mild tomoderate cerebral parenchymal atrophy with ex vacuo dilatation ofventricles. Mild to moderate scattered leukoaraiosis. Normal intracranial flow voids. Bilateral lensreplacements. Exaggerated cervical lordosis with congenitally narrowspinal canal. IMPRESSION: 1. Approximately 0.8cm flat indeterminate left posterior scalp enhancingcutaneous and subcutaneous lesion at the posterior aspect of the resectionbed appears similar to slightly less prominent on the 09/09/[address]This remains indeterminate and continued imaging follow-up is recommended. 2. Abnormal decreased T1 marrow signal involving the underlying leftparietal bone extending slightly across the midline into the rightparietal bone is indeterminate and also warrants follow-up. Tammie Hooks M.D., Ph.D. IMG MRI PRO CEDURES documented in this encounter Visit Diagnoses Diagnosis Squamous Cell Carcinoma Of Skin Of Scalp And Neck documented in this encounter Administered Medications Inactive Administered Medications - up to 3 most recent administrations Medication Order MAR Action Action Date Dose Rate Site gadobutrol injection 0.01-30 mL (GADAVIST) 0.01-30 mL, intravenous, Once in imaging, contrast, Starting on Mon01/11/23 at 0927, For 1 dose, Imaging Protocol Orders, Dose per Radiant Medication Guidelines Intrathecal doses greater than 0.25 mL not recommended. Given 01/11/2023 10:27 AM INDEX CLERK 7 mL documented in this encounter Care Teams Respiratory Scientist Relationship Specialty Start Date End Date Elsewhere, Pcp PCP - General Family Medicine 02/01/22 documented as of this encounter
--- OUTSIDE RECORDS SUMMARY | 2023-04-17 11:46 | XMS_ITS | Encounter Summary ---
Author Name Unknown Organization [facility] Address [address] [place] [address] Care Team Providers Care Insurance Application Investigator Name Role Phone Elsewhere, Pcp Primary Care Provider Unavailabl e Reason for Visit * Reason Onset Date Comments HIMANSHU - CD request 01/12/2023 Encounter Details Date Type Department Care Team (Latest Contact Info) Description 01/12/2023 Clinical Communication Department of Oncology in [place], [place] [address] [place] [address] Blanche Monzon P.A.-C., M.S. [address] [place] [address] HIMANSHU - CD request Social History Tobacco Use Types Packs/Day Years [...] often do you attend chur ch or orthodoxy services? Never 01/24/2022 Do you belong to any clubs o r organizations such as spiritism groups, unions, fraternal or athletic groups, or [...] and heating? Not hard at all 09/02/2022 [facility] of Occupat ionsd Health - Occupational Stress Questionnaire Answer Date [...] your living situation today? I have a [facility] place to live 09/02/2022 Education Answer Date Recorded What is the highest level of school you have completed or the highest degree you have received? Bachelor's degree (e.g., BA, AB, BS) 01/24/2022 Sex and Gender Information Value Date Recorded Sex Assigned at Female 01/24/2022 7:37 PM MILITARY ANALYST Gender Identity Female 01/24/2022 7:37 PM MILITARY ANALYST Sexual Orientation Straight 01/24/2022 7: 37 PM MILITARY ANALYST documented as of this encounter Plan of Treatment Not on file documented as of this encounter Visit Diagnoses Not on filedocumented in this encounter Care Teams Insurance Application Investigator Relationship Specialty Start Date End Date Elsewhere, Pcp PCP - General Family Medicine 02/01/22 documented as of this encounter
--- OUTSIDE RECORDS SUMMARY | 2023-04-17 11:46 | XMS_ITS | Encounter Summary ---
Author Name Unknown Organization [facility] Address [address] [place] [address] Care Team Providers Care Engine Dynamometer Tester Name Role Phone Elsewhere, Pcp Primary Care Provider Unavailabl e Reason for Visit * Outpatient (Routine) - Closed Specialty Diagnoses / Procedures Referred By Contact Referred To Contact Gastroenterology and Hepatology Davon Casey M.D. [address] [place] [address] [facility] Referral ID Status Reason Start Date Expiration Date Visits Re quested Visits Authorized [id number] Closed 02/20/2023 02/19/2026 1 1 Encounter Details Date Type Department Care Team (Latest Contact Info) Description 03/08/2023 11:40 AM NURSING SUPPORT WORKER Virtual Visit Division of Gastroenterology in [place], [place] [address] [place] [phone] Davon Casey M.D. [address] [place] [phone] Diarrhea [R19.7] (Primary Dx) Social History Tobacco Use Types [...] week 01/24/2022 How often do you attend [facility] or pentecostalism services? Never 01/24/2022 Do you belong to any clubs o r organizations such as lutheran groups, unions, fraternal or athletic groups, or [...] and heating? Not hard at all 09/02/2022 [facility] [place] of Occupat ional Health - Occupational Stress [...] your living situation today? I have a [facility] place to live 02/16/2023 Education Answer Date Recorded What is the highest level of school you have completed or the highest degree you have received? Bachelor's degree (e.g., BA, AB, BS) 01/24/2022 Sex and Gender Information Value Date Recorded Sex Assigned at Female 01/24/2022 7:37 PM NURSING SUPPORT WORKER Gender Identity Female 01/24/2022 7:37 PM NURSING SUPPORT WORKER Sexual Orientation Straight 01/24/2022 7: 37 PM NURSING SUPPORT WORKER documented as of this encounter Progress Notes * Davon Casey M.D. - 03/08/2023 11:40 AM CST Outpatient GI progress note Ms. Guevara is a very pleasant 77 y.o. 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 For a more detailed HPI, please refer to my consult note from 02/20/2023. In summary, patient with history of microscopic colitis responsive budesonide who had a low fecal elastase and elevated fecalcalprotectin in the setting of active C diff infection. After a 14 day course of vancomycin, patient did not noticed much improvement in diarrhea therefore took some Entocort left from previous microscopic colitis treatment. Therefore, we advised patient to discontinue Entocort as it has and to increase fiber intake. At this time, patient has discontinued Entocort and has been able to start fiber supplementation. She takes Citrucel 1 heaping tbsp in the morning. Since then, she reports improvement in stool consistency, no diarrhea, no mucus. Physical examination: Unable to obtain due to phone visit. # 1 Decreased fecal elastase, query exocrine pancreatic insufficiency # 2 Recent C diff infection status post vancomycin course # 3 History of microscopic colitis # 4 History of constipation Patient was referred to our clinic due to a low fecal elastase and elevated fecal calprotectin, collected during a C diff episodes. Diarrhea remained after vancomycin course, therefore started Entocort () from previous microscopic colitis treatment. During our initial visit, we reassured patient that there was no findings to suggest exocrine pancreatic insufficiency. Also, we advised patient to discontinue budesonide (which she did) and startingfiber. Bowel habit appears to be more regular now. Plan: Continue with Citrucel, can increase to 5 g daily. I will wait for CT scan on 04/13 and reach back to patient. Afterwards, patient may return to local GI provider. ADDENDUM 04/14/2023 Fortunately, patient responded appropriately to fidaxomicin. She describes her bowel habit as 1-2 well-formed stools. The stools may be hard. Of note, she underwent recent CT abdomen pelvis which showed severe stool burden mostly on the ascending colon. I had message Dr. Wheatley if he could comment on the pancreas and rule out any pancreatic duct dilation. ING SUPPORT WORKER documented in this encounter Plan of Treatment Not on file documented as of this encounter Visit Diagnoses Diagnosis Diarrhea [R19.7]- Primary documented in this encounter Care Teams Engine Dynamometer Tester Relationship Specialty Start Date End Date Elsewhere, Pcp PCP - General Family Medicine 02/01/22 documented as of this encounter
--- OUTSIDE RECORDS SUMMARY | 2023-04-17 11:46 | XMS_ITS | Encounter Summary ---
Author Name Unknown Organization [facility] Address [address] [place] [address] Care Team Providers Care Train Controller Name Role Phone Elsewhere, Pcp Primary Care Provider Unavailabl e Encounter Details Date Type Department Care Team (Late st Contact Info) Description 02/28/2023 Clinical Communication Department of Radiation Oncology in [place], [place] [address] [place] [address] Tammie Hooks M.D., Ph.D. [address] [place] [address] Social History Tobacco Use Types Packs/Day Years [...] How often do you attend chur or zoroastrianism services? Never 01/24/2022 Do you belong to [...] your living situation today? I have a [facility] place to live 02/16/2023 Education Answer Date Recorded What is the highest level of school you have completed or the highest degree you have received? Bachelor's degree (e.g., BA, AB, BS) 01/24/2022 Sex and Gender Information Value Date Recorded Sex Assigned at Female 01/24/2022 7:37 PM ELEVATOR SUPERVISOR Gender Identity Female 01/24/2022 7:37 PM ELEVATOR SUPERVISOR Sexual Orientation Straight 01/24/2022 7: 37 PM ELEVATOR SUPERVISOR documented as of this encounter Miscellaneous Notes * Telephone Encounter - Kassandra Chaves - 02/28/2023 2:38 PM CST Outside lab uploaded to patient chart, this can be found under media, document viewer. Thank you ATOR SUPERVISOR documented in this encounter Plan of Treatment Not on file documented as of this encounter Visit Diagnoses Not on filedocumented in this encounter Care Teams Train Controller Relationship Specialty Start Date End Date Elsewhere, Pcp PCP - General Family Medicine 02/01/22 documented as of this encounter
--- OUTSIDE RECORDS SUMMARY | 2023-04-17 11:47 | XMS_ITS | Encounter Summary ---
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 [address] [place] [address] [facility] Referral ID Status Reason Start Date Expiration Date Visits Re quested Visits Authorized [id number] Closed 09/09/2022 09/08/2025 1 1 Scheduling Instructions Please schedule on a surgeon's clinical calendar. Thank you. 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 [address] [place] [address] [facility] Referral ID Status Reason Start Date Expiration Date Visits Re quested Visits Authorized [id number] Closed 06/10/2022 06/10/2023 1 1 Encounter Details Date Type Department Care Team (Latest Contact Info) Description 09/09/2022 1:00 PM CDT Comprehensive Visit Department of Dermatology in [place], [place] [address] [place] [address] Meagan Akers P.A.-C., M.S. [address] [place] [address] Nevi Multiple (Primary Dx); Dermatitis; Angioma Piña; Keratosis Seborrheic; Dermatoheliosis; Screening Examination Skin Cancer; Secondary Malignant Neoplasm Lymph Node (HCC); Squamous Cell Carcinoma Of Skin Of Scalp And Neck Social History Tobacco Use Types Packs/Day Years [...] How often do you attend chur or yarsani services? Never 01/24/2022 Do you belong to any clubs o r organizations such as confucianism groups, unions, fraternal or athletic groups, or [...] and heating? Not hard at all 09/02/2022 [facility] - Occupational [...] your living situation today? I have a [facility] place to live 09/02/2022 Education Answer Date Recorded What is the highest level of school you have completed or the highest degree you have received? Bachelor's degree (e.g., BA, AB, BS) 01/24/2022 Sex and Gender Information Value Date Recorded Sex Assigned at Female 01/24/2022 7:37 PM GEOPHYSICAL OPERATOR Gender Identity Female 01/24/2022 7:37 PM GEOPHYSICAL OPERATOR Sexual Orientation Straight 01/24/2022 7: 37 PM GEOPHYSICAL OPERATOR documented as of this encounter Consult Notes * Meagan Akers P.A.Wilbert., M.S. - 09/09/2022 1:00 PM CDT REFERRED BY Farnaz Mccarty, REYNOLD, C.N.P. CHIEF COMPLAINT/REASON FOR VISIT History of metastatic squamous cell carcinoma Skin check HISTORY OF PRESENT ILLNESS Ms. Veronica Guevara is a pleasant 77 y.o. female who presents today for a full skin cancer screening examination. She is accompanied by her . 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 In July 2021, a lesion was noted on the patient's vertex scalp. The lesion was biopsied in December 2021 and showed an invasive poorly differentiated squamous cell carcinoma, transected at base and lateral edge of the specimen. Additionally, left neck lymph nodes showed invasive poorly differentiated squamous cell carcinoma. She underwent wide local excision of the scalp lesion and lymph node dissection. Two of 26 lymph nodes involving the left neck and 1 of 3 lymph nodes involving the right neckshowed metastatic squamous cell carcinoma. The patient then underwent radiation therapy of the midline scalp, bilateral head, and neck. This was completed in April 2022. The patient follows closely with Oncology and Radiation Oncology. The patient was last seen at [facility] on 03/25/2022. The patient notes a history of an area on her scalp that was not healing after the radiation and was oozing. However, the patient states the drainage stopped about 1-2 weeks ago and her scalp is now healing well. Today, the patient does note some flaking involving the eyebrows and glabella. She hasbeen prescribed ketoconazole 2% cream in the past. Additionally, the patient would appreciate a close examination of her bilateral cheeks, due to raised lesions involving these areas. She also notes some tenderness involving the neck after the radiation therapy. The patient reports being diligent with photoprotection and sun avoidance. Allergies Allergen Reactions Penicillins Other (see comments) Family History of allergy but has never taken herself. Patient tolerated Duricef Pollen Extracts Itching Sulfa (Sulfonamide Antibiotics) Other (see comments) PAST DERMATOLOGIC HISTORY 1. History of metastatic squamous cell carcinoma, vertex scalp, s/p wide local excision, lymph nodedissection, and radiation therapy, see above ROS: Negative for fevers, chills, unintentional weight loss, abdominal pain, blood in urine or stool. PHYSICAL EXAM General: Awake, alert, in no acute distress, and with appropriate affect. Eyes: No scleral injection or icterus. No eyelid abnormalities. Lymph: No lower extremity edema. No cervical, supraclavicular, axillary, or inguinal lymphadenopathy. Skin: I have examined the scalp, face, neck, chest, abdomen, back, bilateral upper extremities, andbilateral lower extremities. Genital exam not requested. Addison skin type II with evidence of [id number] dermatoheliosis on the sun-exposed areas. Involving the trunk and extremities are few skin colored to dark brown macules and papules, with reassuring pigment patterns under dermoscopy, consistent with benign appearing nevi. Involving the trunk, face, and extremities, including the patient's lesions of concern on the bilateral cheeks, are few wall-brown, waxy, stuck-on papules consistent with seborrheic keratoses. Involving the trunk are few red 1 to 3 mm dome-shaped scattered macu les and papules consistent with piña angiomas. There are well-healing scars involving the scalp without evidence of recurrence, repigmentation, nodularity, or tenderness to palpation. There are no signs of open areas or nonhealing skin lesions involving the scalp upon examination today. Involvingthe gluteal cleft is a pink dry patch most consistent with dermatitis. Involving the bilateral eyebrows and glabella is mild white loose flaking consistent with seborrheic dermatitis. Involving the left fourth toe is a flesh-colored to light pink fluid-filled papule suspected to be a digital mucouscyst. Neck appears to be healing well after radiation with no lesions or radiation dermatitis present. IMPRESSION/REPORT/PLAN #1 Skin cancer screening examination #2 Dermatoheliosis #3 History of metastatic squamous cell carcinoma, vertex scalp, s/p wide local excision, lymph nodedissection, and radiation therapy, see above Sun protection and sun avoidance were reviewed with the patient. I advised the patient to use SPF 30 or above. Educational materials were provided regarding skin self-examination, the warning signs and symptoms of skin cancer, and the proper use of sunscreens. I would recommend a full skin cancer screening examination with an appropriately trained clinician every year. Dr. Tammie Hooks, the patient's Radiation Oncologist, reached out to me regarding the patient's vertex scalp. The patient was experiencing a nonhealing area, but this has since improved. There are no signs of open areas or nonhealing skin lesions involving the patient's scalp upon examination today - it appears to be healing very well. A photograph was obtained today. Based on imaging, Dr. Hooks believes the area that was previously oozing is less likely a recurrence of squamous cell carcinoma, and more likely slow healing tissue from the radiation therapy. Dr. Hooks and I recommended andpreferred close continued observation at this time. We also recommended the patient send in photographs weekly of her scalp through the portal to make sure it continues to heal well. I have also placed an order for the patient to see one of our Dermatological Surgeons in clinic for examination of the scalp and a full skin cancer screening examination in 3 months. #4 Benign appearing nevi The ABCDE criteria for melanoma was reviewed with the patient. None of the patient's nevi reach theclinical threshold for biopsy. I recommend continued sun protection, self-skin examinations, and observation. Should any of the patient's nevi change in size, color, texture, or shape or develop symptoms such as itching or bleeding, I recommend an immediate return visit for reassessment. #5 Piña angiomas #6 Seborrheic keratoses The benign nature of the skin lesion(s) was discussed with the patient. No treatment is required. Irecommend continued observation. Should symptoms or changes develop related to this condition, I would recommend a return visit for reassessment. #7 Seborrheic dermatitis, bilateral eyebrows and glabella This is a benign, but often chronic condition with a goal of maintaining it well. The patient may apply ketoconazole 2% cream to these areas twice daily as needed for flaking. If she needs refills ofketoconazole 2% cream, the patient may reach out to me via the portal. #8 Dermatitis, gluteal cleft The patient was previously applying nystatin cream to this area. Since the area is inflamed, I haveinstead prescribed hydrocortisone 2.5% ointment for the patient to apply to the affected area twicedaily for 1-2 weeks, then as needed for flares. We discussed that the hydrocortisone ointment is a topical steroid and should not be used daily long-term due to risk of atrophy. The patient should return for reassessment if the dermatitis worsens or does not improve and resolve. #9 Suspected digital mucous cyst, left fourth toe The patient states she has followed up with Ortho regarding this lesion and they recommended continued observation at that time. She states she was told the lesion likely involves the joint. The patient should return to Ortho if changes or symptoms would occur. All questions answered. PATIENT EDUCATION Ready to learn. No apparent learning barriers were identified. Learning preferences include listening. Explained diagnosis and treatment plan; patient/guardian of patient expressed understanding of the content. 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
--- OUTSIDE RECORDS SUMMARY | 2023-04-17 11:47 | XMS_ITS | Encounter Summary ---
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 [address] [place] [address] [facility] Referral ID Status Reason Start Date Expiration Date Visits Re quested Visits Authorized [id number] Closed 09/09/2022 09/08/2025 1 1 Encounter Details Date Type Department Care Team (Late st Contact Info) Description 12/21/2022 11:00 AM CDT Office Visit Department of Dermatology in [place], [place] [address] [place] [address] Carlee Chiu M.B.B.S., M.D. [address] [place] [address] Dermatitis Seborrheic (Primary Dx); Squamous Cell Carcinoma Of Skin Of Scalp And Neck; Secondary Malignant Neoplasm Lymph Node (HCC); Cancer Skin Squamous Cell Personal History; Dermatoheliosis; Dermatitis; Keratosis Actinic Discharge Disposition: Home or Self Care Social [...] week 01/24/2022 How often do you attend [facility] or taoist services? Never 01/24/2022 Do you belong to any clubs o r organizations such as shinto groups, unions, fraternal or athletic groups, or [...] and heating? Not hard at all 09/02/2022 [facility] [place] [facility] Occupat ional Health - Occupational Stress [...] your living situation today? I have a [facility] place to live 09/02/2022 Education Answer Date Recorded What is the highest level of school you have completed or the highest degree you have received? Bachelor's degree (e.g., BA, AB, BS) 01/24/2022 Sex and Gender Information Value Date Recorded Sex Assigned at Female 01/24/2022 7:37 PM CAR RACER Gender Identity Female 01/24/2022 7:37 PM CAR RACER Sexual Orientation Straight 01/24/2022 7: 37 PM CAR RACER documented as of this encounter Consult Notes * Charly Jimenez M.D. - 12/21/2022 11:00 AM CDT Correspondence to: Carlee Rodriguez M.D. CHIEF COMPLAINT / REASON FOR VISIT Skin check HISTORY OF PRESENT ILLNESS Ms. Veronica Guevara is a 77 y.o. female who presents today for a skin check. Her history is significant for an invasive, poorly differentiated squamous cell carcinoma of the vertex scalp with 3 lymph nodes involved by metastatic squamous cell carcinoma status post wide local excision in January of 2022 followed by adjuvant radiotherapy. Today she notes some lesions on the left eyebrow that haven't gone away as well as some irritation on the gluteal cleft. PHYSICAL EXAM General: Awake, alert, in no acute distress, and with appropriate affect. Lymph: No cervical, submandibular, submental, occipital, or axillary lymphadenopathy Skin: I have performed a full skin examination including genitalia per patient preference. She has a well-healed scar on the scalp consistent with prior surgery without evidence of recurrence. She has a dermatitic appearing patch with a very superficial ulceration on the supragluteal cleft. She additionally has 2 actinic keratoses over the left eyebrow. She otherwise has scattered benign-appearing nevi, and piña angiomas, seborrheic keratoses ASSESSMENT / PLAN #1 History of metastatic poorly differentiated squamous cell carcinoma of the scalp, s/p WLE and radiation #2 Dermatoheliosis No evidence of recurrence. Sun protection and sun avoidance were reviewed with the patient. Educational materials were provided regarding skin self-examination, the warning signs and symptoms of skin cancer, and the proper useof sunscreens. I would recommend a full skin cancer screening examination with an appropriately trained clinician every year. #3 Irritant contact dermatitis, supragluteal cleft Recommended her to stop using any wet wipes over this area. This area is likely also aggravated by her frequent stools from microscopic colitis. In addition, we recommend the following: Mix ketoconazole 2% cream and hydrocortisone 2.5% cream and apply this over the area, then cover with Zinc oxide barrier cream (20 or 40%, Desitin) After using the restroom, re-apply zinc oxide barrier cream Follow-up in 3 months. Is still irritated at that time, would obtain swabs for bacteria and fungus. #4 Banal-appearing nevi None of the patient's nevi reach the clinical threshold for biopsy. I recommend continued sun protection, self-skin examinations, and observation. Should any of the patient's nevi change in size, color, texture, or shape or develop symptoms such as itching or bleeding, I recommend an immediate return visit for reassessment. #5 Actinic keratoses times 2, left eyebrow Given the precancerous nature of this lesion(s), treatment is medically indicated. After discussionof the risks, benefits and alternatives to treatment with cryotherapy, informed consent was obtained. We treated a total of two lesion(s) with two 20-second freeze-thaw cycles of liquid nitrogen cryotherapy. The patient tolerated the procedure well. Aftercare instructions were provided in written and verbal form to the patient. Should any of these lesions recur, the patient should return for biopsy or further evaluation. Discussed the risks, benefits, alternatives, and the necessity of other members of the healthcare team participating in the procedure. All questions answered and consent given. #6 Seborrheic keratoses #7 Piña angiomas The benign nature of the skin lesion(s) was discussed with the patient. No treatment is required. Irecommend continued observation. Should symptoms or changes develop related to this condition, I would recommend a return visit for reassessment. All questions answered. INFORMED CONSENT Discussed the risks, benefits, alternatives, and the necessity of other members of the healthcare team participating in the procedure. All questions answered and consent given. PATIENT EDUCATION Ready to learn. No apparent learning barriers were identified. Learning preferences include listening. Explained diagnosis and treatment plan; patient/guardian of patient expressed understanding of the content. Associated attestation - Carlee Chiu M.B.B.S., M.D. - 12/21/2022 11:24 AM CDT I saw and evaluated the patient, participating in the alexander portions of the service. I reviewed the resident???s note. I agree with the resident???s findings and plan. I was present for the entire procedure. 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
--- OUTSIDE RECORDS SUMMARY | 2023-04-17 11:47 | XMS_ITS | Encounter Summary ---
Author Name Unknown Organization [facility] Address [address] [place] [address] Care Team Providers Care Lift Operator Name Role Phone Elsewhere, Pcp Primary Care Provider Unavailabl e Encounter Details Date Type Department Care Team (Latest Contact Info) Description 10/21/2022 11:17 AM CDT - 10/21/2022 11:59 PM CDT Hospital Encounter Department of Laboratory Medicine in [place], [place] [address] [place] [phone] Tammie Hooks M.D., Ph.D. [address] [place] [address] Squamous Cell Carcinoma Of Skin Of Scalp [...] often do you attend chur ch or congregation services? Never 01/24/2022 Do you belong to any clubs o r organizations such as orthodox groups, unions, fraternal or athletic groups, or [...] hard at all 09/02/2022 [facility] Questionnaire Answer [...] money to buy more. Never true 09/03/19 Within the past 12 months, t he [...] your living situation today? I have a [facility] place to live 09/02/2022 Education Answer Date Recorded What is the highest level of school you have completed or the highest degree you have received? Bachelor's degree (e.g., BA, AB, BS) 01/24/2022 Sex and Gender Information Value Date Recorded Sex Assigned at Female 01/24/2022 7:37 PM HOUSE PAINTING INSTRUCTOR Gender Identity Female 01/24/2022 7:37 PM HOUSE PAINTING INSTRUCTOR Sexual Orientation Straight 01/24/2022 7: 37 PM HOUSE PAINTING INSTRUCTOR documented as of this encounter Medications at Time of Discharge Medication Sig Dispensed Refills Start Date End Date rosuvastatin (CRESTOR) 10 mg tablet Take 10 [...] total) by mouth every morning before breakfast. 30 tablet 2 09/09/2022 11/02/2022 nystatin (MYCOSTATIN) 100,000 unit/gram cream Apply 1 application topically 2 (two) times a day as needed. To dry spot on the base of spine 0 12/22/2021 01/04/2023 documented as of this encounter Plan of Treatment Not on file documented as of this encounter Procedures Procedure Name Priority Date/Time Associated Diagnosis Comments THYROID FUNCTION CASCADE, S Routine 10/21/2022 11:36 AM CDT Squamous Cell Carcinoma Of Skin Of Scalp And Neck Hypothyroidism Acquired documented in this encounter Results * Thyroid Function Bradford (10/21/2022 11:36 AM CDT) TSH, Sensitive 3.6 0.3 - 4.2 mIU/L 10/21/2022 1:51 PM CDT OWAT Blood (Blood, Venous) 10/21/2022 11:36 AM CDT 10/21/2022 1:17 PM CDT Tammie Hooks M.D., Ph.D. LAB BLOOD A DD-ON [facility] [address] [place] [address], [facility] [place] [address] [place] [address] documented in this encounter Visit Diagnoses Diagnosis Squamous Cell Carcinoma Of Skin Of Scalp And Neck Hypothyroidism Acquired documented in this encounter Care Teams Lift Operator Relationship Specialty Start Date End Date Elsewhere, Pcp PCP - General Family Medicine 02/01/22 documented as of this encounter
--- OUTSIDE RECORDS SUMMARY | 2023-04-17 11:47 | XMS_ITS | Encounter Summary ---
Author Name Unknown Organization [facility] Address [address] [place] [address] Care Team Providers Care Carburizing Furnace Operator Name Role Phone Elsewhere, Pcp Primary Care Provider Unavailabl e Encounter Details Date Type Department Care Team (Late st Contact Info) Description 09/09/2022 12:05 AM CDT Ancillary Procedure Department of Dermatology Social History Tobacco Use Types Packs/Day Years [...] often do you attend chur ch or bahai services? Never 01/24/2022 Do you belong to any clubs o r organizations such as pentecostalism groups, unions, fraternal or athletic groups, or [...] and heating? Not hard at all 09/02/2022 [facility] Occupat ional Health - Occupational [...] have a [facility] place to live 09/02/2022 Education Answer Date Recorded What is the highest level of school you have completed or the highest degree you have received? Bachelor's degree (e.g., BA, AB, BS) 01/24/2022 Sex and Gender Information Value Date Recorded Sex Assigned at Female 01/24/2022 7:37 PM COPY COORDINATOR Gender Identity Female 01/24/2022 7:37 PM COPY COORDINATOR Sexual Orientation Straight 01/24/2022 7: 37 PM COPY COORDINATOR documented as of this encounter Plan of Treatment Not on file documented as of this encounter Procedures Procedure Name Priority Date/Time Associated Diagnosis Comments DERMATOLOGY IMAGE EXAM Routine 09/09/2022 12:05 AM CDT documented in this encounter Results * Scalp 502-Dermatology Image Exam (09/09/2022 12:05 AM CDT) Narrative [facility] - 09/12/2022 8:57 AM CDT This order has been created and auto-finalized to support the import of images acquired without order. The clinical documentation to support these images can be found on the encounter that produced images. Provider Not In System IMG NON RAD IMAGI NG PROCEDURES [facility] NA documented in this encounter Visit Diagnoses Not on filedocumented in this encounter Care Teams Carburizing Furnace Operator Relationship Specialty Start Date End Date Elsewhere, Pcp PCP - General Family Medicine 02/01/22 documented as of this encounter
--- OUTSIDE RECORDS SUMMARY | 2023-04-17 11:47 | XMS_ITS | Encounter Summary ---
Author Name Unknown Organization [facility] Address [address] [place] [address] Care Team Providers Care Teacher Theater Arts Name Role Phone Elsewhere, Pcp Primary Care Provider Unavailabl e Reason for Visit * Appointment Request (Routine) - Closed Specialty Diagnoses / Procedures Referred By Ryan cronin Referred To Contact Otorhinolaryngology Diagnoses Adjustment Hearing Aid Referral ID Status Reason Start Date Expiration Date Visits Re quested Visits Authorized [id number] Closed 08/16/2022 08/16/2023 1 1 Encounter Details Date Type Department Care Team (Latest Contact Info) Description 09/22/2022 2:00 PM CDT Diagnostic Department of Otorhinolaryngology in [place], [place] [address] [place] [address] Mary Anne Hurtado, Ph.D. [address] [place] [phone] Loss Hearing Sensorineural Bilateral (Primary Dx) Social History Tobacco Use Types [...] often do you attend chur ch or temple services? Never 01/24/2022 Do you belong to any clubs o r organizations such as anabaptism groups, unions, fraternal or athletic groups, or [...] and heating? Not hard at all 09/02/2022 [facility] [place] of Occupat ional Health - Occupational Stress [...] your living situation today? I have a [facility] place to live 09/02/2022 Education Answer Date Recorded What is the highest level of school you have completed or the highest degree you have received? Bachelor's degree (e.g., BA, AB, BS) 01/24/2022 Sex and Gender Information Value Date Recorded Sex Assigned at Female 01/24/2022 7:37 PM PLAY BACK OPERATOR Gender Identity Female 01/24/2022 7:37 PM PLAY BACK OPERATOR Sexual Orientation Straight 01/24/2022 7: 37 PM PLAY BACK OPERATOR documented as of this encounter Consult Notes * Mary Anne Hurtado, Ph.D. - 09/22/2022 2:00 PM CDT SUBJECTIVE REFERRAL: self CHIEF COMPLAINT/REASON FOR VISIT Hearing aid consultation, accompanied by her . HISTORY Veronica Guevara is a 77 y.o. 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 She reported that she has a little difficulty hearing conversation but generally she feels she hearspretty well. She noted that she has difficulty hearing television and she uses a pair of TV Ears that helps a lot. She reported that she finds many high-pitch sounds to irritate her such as the microwave and clothes dryer indicators. She reported history of tinnitus since the mid . She has a history of scalp and neck squamous cell carcinoma and has had surgical and radiation interventions. OBJECTIVE Please see audiogram dated 04/07/2022. Hearing test results were verbally and visually reviewed with Mrs. Guevara. The unaided portion of the Abbreviated Profile of Hearing Aid Benefit (APHAB) questionnaire showed perceived difficulty hearing as follows: Ease of Communication 37.5% problem, Reverberation 66.5% problem, Background noise 74.8% problem, Aversiveness of sound 76.5% problem. ASSESSMENT/PLAN The patient???s communication needs and lifestyle were assessed. Realistic expectations of amplification were discussed. Hearing aid styles, levels of technology, user control options, and the recommended procedure for follow-up care were explained. We reviewed maximizing use of visual and contextual cues and good communication strategies. She andher indicated that they would like to try using better communication strategies before she tries a hearing aid(s). Return as needed with hearing retest in approximately 3 years or sooner if changes are noted. #1 Loss Hearing Sensorineural Bilateral documented in this encounter Plan of Treatment Not on file documented as of this encounter Visit Diagnoses Diagnosis Loss Hearing Sensorineural Bilateral- Primary documented in this encounter Care Teams Teacher Theater Arts Relationship Specialty Start Date End Date Elsewhere, Pcp PCP - General Family Medicine 02/01/22 documented as of this encounter
--- OUTSIDE RECORDS SUMMARY | 2023-04-17 11:47 | XMS_ITS | Encounter Summary ---
Author Name Unknown Organization [facility] Address [address] [place] [address] Care Team Providers Care Cns Name Role Phone Elsewhere, Pcp Primary Care Provider Unavailabl e Reason for Referral * Outpatient (Routine) - Closed Specialty Diagnoses / Procedures Referred By Contac t Referred To Contact Radiation Oncology Tammie Hooks M.D., Ph.D. [address] [place] [address] [facility] Referral ID Status Reason Start Date Expiration Date Visits Re quested Visits Authorized [id number] Closed 09/09/2022 09/08/2025 1 1 * Outpatient (Routine) - Closed Specialty Diagnoses / Procedures Referred By Contac t Referred To Contact Diagnoses Squamous Cell Carcinoma Of Skin Of Scalp And Neck Procedures US Thyroid Tammie Hooks M.D., Ph.D. [address] [place] [address] [facility] Referral ID Status Reason Start Date Expiration Date Visits Re quested Visits Authorized [id number] Closed 09/09/2022 09/09/2023 1 1 * Outpatient (Routine) - Closed Specialty Diagnoses / Procedures Referred By Ryan cronin Referred To Contact Radiation Oncology Tammie Hooks M.D., Ph.D. [address] [place] [phone] [facility] Referral ID Status Reason Start Date Expiration Date Visits Re quested Visits Authorized [id number] Closed 04/29/2022 04/28/2025 1 1 Reason for Visit * Outpatient (Routine) - Closed Specialty Diagnoses / Procedures Referred By Ryan cronin Referred To Contact Radiation Oncology Tammie Hooks M.D., Ph.D. [address] [place] [phone] [facility] Referral ID Status Reason Start Date Expiration Date Visits Re quested Visits Authorized [id number] Closed 04/29/2022 04/28/2025 1 1 Encounter Details Date Type Department Care Team (Latest Contact Info) Description 09/09/2022 1:31 PM CDT - 09/12/2022 5:03 PM CDT Hospital Encounter Department of Radiation Oncology in [place], [place] [address] [place] [phone] Tammie Hooks M.D., Ph.D. [address] [place] [phone] Squamous Cell Carcinoma Of Skin Of Scalp And Neck (Primary Dx); Hypothyroidism Acquired Social History Tobacco Use Types Packs/Day Years [...] often do you attend chur ch or uatsdin services? Never 01/24/2022 Do you belong to any clubs o r organizations such as religious groups, unions, fraternal or athletic groups, or [...] and heating? Not hard at all 09/02/2022 [facility] of Occupat ional Health - Occupational [...] your living situation today? I have a [facility] place to live 09/02/2022 Education Answer Date Recorded What is the highest level of school you have completed or the highest degree you have received? Bachelor's degree (e.g., BA, AB, BS) 01/24/2022 Sex and Gender Information Value Date Recorded Sex Assigned at Female 01/24/2022 7:37 PM DUAL RATE DEALER Gender Identity Female 01/24/2022 7:37 PM DUAL RATE DEALER Sexual Orientation Straight 01/24/2022 7: 37 PM DUAL RATE DEALER documented as of this encounter Last Filed Vital Signs Vital Sign Reading Time Taken Comments Blood Pressure - - Pulse - - Temperature - - Respiratory Rate - - Oxygen Saturation - - Inhaled Oxygen Concentration - - Weight 62.5 kg (137 lb 12.6 oz) 09/09/2022 1:45 PM CDT Height - - Body Mass Index 23.81 09/08/2022 3:37 PM CDT documented in this encounter Medications at Time [...] 12/22/2021 01/04/2023 documented as of this encounter Progress Notes * Tammie Hooks M.D., Ph.D. - 09/09/2022 2:00 PM CDT SUBJECTIVE REQUESTING PROVIDER Tammie Hooks M.D., Ph.D. CHIEF COMPLAINT/REASON FOR VISIT There were no encounter diagnoses. INTERVAL HISTORY: Mrs. Veronica Guevara is a 77 y.o. female who returns to radiation oncology clinic today for follow up. She reports the area on her scalp that had not healed at the last visit has since healed. She is eating well. She still has a dry mouth. She says her energy is overall pretty good and she denies constipation. OBJECTIVE PHYSICAL EXAM General: Pleasant woman in no apparent distress Skin: Top of scalp has healed completely HEENT: CN II-XII intact. Restricted range of movement in shoulders. No palpable lymph nodes. CT Chest, Neck, head all personally reviewed in depth (09/09/22). Small area of soft tissue nodule mentioned in CT read is stable from scans during treatment, on exam no concern for recurrence. No lymph nodes. No sign of recurrence. 09/08/22: TSH: 12.2, T4 0.4 ASSESSMENT / PLAN #Squamous cell carcinoma of the scalp #Iatrogenic hypothyroidism #Thyroid nodule 76 y.o. woman with [id number] SqCC of the scalp vertex, 3.5 cm primary, 1.1 cm DOI, LVI+, PNI-, margin-, 2/26 LN on left with XIN, 1/3 LN on right XIN-. She completed 60 Gy to scalp and 60 Gy to bilateral necks (with 66 Gy/30 fx to two gross nodes), 54 Gy/ 30 fx to elective oumou radiation. Reviewed imaging with colleague, compared to prior verification scans during treatment and with improvement of skin on exam, there is low concern for recurrence. I discussed with Derm (Meagan Akers) prior to seeing and asked them not to biopsy and to follow with imaging the area of concern as Iwas concerned it would get infected if biopsied. Fortunately, this area had healed by the time we saw patient. She will send pictures weekly anyway of scalp. 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 We will start 25 mcg synthroid today and recheck in 6 weeks at [facility]. I will see her when she returns in 3 months for imaging and to see Medical oncology. Will add thyroid US to further evaluate thyroid nodule seen today. EDUCATION Ready to learn, no apparent learning barriers were identified; learning preferences include listening. Explained diagnosis and treatment plan; patient expressed understanding of the content. I personally spent 25 minutes in care of the patient today. Time includes both [id number] [id number] patient care. Signed by: Tammie Hooks MD PhD Php Software Engineer Game Operator Radiation Oncology 09/09/22 1:36 PM CDT Pager: [phone] documented in this encounter Plan of Treatment Scheduled Referrals Name Type Priority Associated Diagnoses Order Schedule Radiation Oncology office visit (clinic) Outpatient Referral Routine Once for 1 Occurrences starting 09/09/2022 until 09/09/2022 Radiation Oncology office visit (clinic) Outpatient Referral Routine Expected: 12/10/2022, Expires: 12/11/2023 documented as of this encounter Results * US Thyroid (01/11/2023 12:18 PM DUAL RATE DEALER) Anatomical Region Laterality Modality Head and Neck, Ultrasound RS T LOS, Ultrasound ARZ LOS, Ultrasound FLA LOS N/A Ultrasound 01/11/2023 12:2 4 PM DUAL RATE DEALER Impressions 01/11/2023 12:59 PM DUAL RATE DEALER Intermediate suspicion 1.2 cm right thyroid nodule. Narrative 01/11/2023 12:59 PM DUAL RATE DEALER EXAM: US THYROID COMPARISON: Same day CT neck. FINDINGS: The right thyroid lobe measures: 0.7 cm x 0.6 cm x 4.3 cm The left thyroid lobe measures: 0.8 cm x 0.7 cm x 3.3 cm The isthmus measures: 1.3 mm in AP diameter. Thyroid parenchymal evaluation shows: A few nodules, with remarkable nodules described below. A nodule in the upper right thyroid lobe measures 1.2 x 0.9 x 0.8 cm. This predominantly solid nodule is isoechoic and not taller than wide, with smooth margins and macrocalcification. ??The ultrasound score is 2. Based on the sonographic features, the nodule has intermediate suspicion for malignancy (5-20%). Other: Trace fluid in the left lateral neck presumed postprocedural. Lymph nodes: ??Neck levels 1-7 were surveyed and demonstrated no lymphadenopathy. The thyroid nodule descriptions and categories are based on the AskMayoExpert Thyroid Nodule Care Process Model and ACR TI-RADS. Link: https://askmayoexpert.[facility].org/topic/clinical-answers/cnt-89309604/sec-203 06322 ?? ACR Link: ??https://www.acr.org/Clinical-Resources/Iuzujtnbi-ztz-Pfuy-Systems/TI-RADS The AskMayoExpert Thyroid Nodule CPM states the following recommendations: ? No suspicion or Extremely low-suspicion nodule: No FNA, no imaging f/u ? Low-suspicion nodule: FNA if greater than or equal to 25 mm; US f/u in 2-5 yrs if greater than or equal to 15 mm ? Intermediate-suspicion nodule: FNA if greater than or equal to 15 mm; US f/u in 1-3 yrs if greater than or equal to 10 mm ? High-suspicion nodule: FNA if greater than or equal to 10 mm (or smaller if desired); US f/u in 1 yr if not FNA Procedure Note Jaiden Figueroa M.D., M.S. - 01/11/2023 EXAM: US THYROID COMPARISON: Same day CT neck. FINDINGS: The right thyroid lobe measures: 0.7 cm x 0.6 cm x 4.3 cm The left thyroid lobe measures: 0.8 cm x 0.7 cm x 3.3 cm The isthmus measures: 1.3 mm in AP diameter. Thyroid parenchymal evaluation shows: A few nodules, with remarkablenodules described below. A nodule in the upper right thyroid lobe measures 1.2 x 0.9 x 0.8 cm. Thispredominantly solid nodule is isoechoic and not taller than wide, withsmooth margins and macrocalcification. The ultrasound score is 2. Basedon the sonographic features, the nodule has intermediate suspicion for malignancy (5-20%). Other: Trace fluid in the left lateral neck presumed postprocedural. Lymph nodes: Neck levels 1-7 were surveyed and demonstrated nolymphadenopathy. The thyroid nodule descriptions and categories are based on theAskMayoExpert Thyroid Nodule Care Process Model and ACR TI-RADS. Link:https://askmayoexpert.[facility].org/topic/clinical-answers/cnt-01261118/se c-203 31922 ACR Link:https://www.acr.org/Clinical-Resources/Fgjmkaldx-err-Mwmc-Systems/TI-RADS The AskMayoExpert Thyroid Nodule CPM states the followingrecommendations: No suspicion or Extremely low-suspicion nodule: No FNA, no imagingf/u Low-suspicion nodule: FNA if greater than or equal to 25 mm; US f/uin 2-5 yrs if greater than or equal to 15 mm Intermediate-suspicion nodule: FNA if greater than or equal to 15 mm;US f/u in 1-3 yrs if greater than or equal to 10 mm High-suspicion nodule: FNA if greater than or equal to 10 mm (orsmaller if desired); US f/u in 1 yr if not FNA IMPRESSION: Intermediate suspicion 1.2 cm right thyroid nodule. Tammie Hooks M.D., Ph.D. [facility] US PROC EDURES * Thyroid Function [place] (10/21/2022 11:36 AM CDT) TSH, Sensitive 3.6 0.3 - 4.2 mIU/L 10/21/2022 1:51 PM CDT [facility] Blood (Blood, Venous) 10/21/2022 11:36 AM CDT 10/21/2022 1:17 PM CDT Tammie Hooks M.D., Ph.D. LAB BLOOD A DD-ON [facility] [address] [place] [address], [facility] [[email or web address]] [facility] [place] [address] [place] [address] documented in this encounter Visit Diagnoses Diagnosis Squamous Cell Carcinoma Of Skin Of Scalp And Neck- Primary Hypothyroidism Acquired Squamous Cell Carcinoma Of Skin Of Scalp And Neck documented in this encounter Care Teams Cns Relationship Specialty Start Date End Date Elsewhere, Pcp PCP - General Family Medicine 02/01/22 documented as of this encounter
--- OUTSIDE RECORDS SUMMARY | 2023-04-17 11:47 | XMS_ITS | Encounter Summary ---
Author Name Unknown Organization [facility] Address [address] [place] [address] Care Team Providers Care Fly Raiser Lockstitch Name Role Phone Elsewhere, Pcp Primary Care Provider Unavailabl e Reason for Visit * Outpatient (Routine) - Closed Specialty Diagnoses / Procedures Referred By Contact Referred To Contact Physical Medicine and Rehabilitation Adeola Nunez M.D. [address] [place] [phone] [facility] Referral ID Status Reason Start Date Expiration Date Visits Re quested Visits Authorized [id number] Closed 12/11/2022 12/10/2025 1 1 Encounter Details Date Type Department Care Team (Latest Contact Info) Description 01/04/2023 8:30 AM CDT Comprehensive Visit Department of Physical Medicine and Rehabilitation in [place], [place] [address] [place] [phone] Adeola Nunez M.D. [address] [place] [phone] Pain Shoulder Left (Primary Dx); Pain Shoulder Right; Limitation Of Motion Shoulder Joint Left; Limitation Of Motion Shoulder Joint Right; Bursitis Subacromial Left; Bursitis Subacromial Right; Pain Myofascial; Pain Neck; Neoplastic Malignant Related Fatigue; Squamous Cell Carcinoma Of Skin Of Scalp [...] often do you attend chur ch or restorationist services? Never 01/24/2022 Do you belong to [...] and heating? Not hard at all 09/02/2022 [facility] - Occupational [...] your living situation today? I have a [facility] place to live 09/02/2022 Education Answer Date Recorded What is the highest level of school you have completed or the highest degree you have received? Bachelor's degree (e.g., BA, AB, BS) 01/24/2022 Sex and Gender Information Value Date Recorded Sex Assigned at Female 01/24/2022 7:37 PM SURVEY TECHNICIAN Gender Identity Female 01/24/2022 7:37 PM SURVEY TECHNICIAN Sexual Orientation Straight 01/24/2022 7: 37 PM SURVEY TECHNICIAN documented as of this encounter Progress Notes * Adeola Nunez M.D. - 01/04/2023 8:30 AM CDT SUBJECTIVE CHIEF COMPLAINT/REASON FOR VISIT Shoulder and neck pain; right wrist pain with hand tingling HISTORY OF PRESENT ILLNESS Ms. Guevara is a right-hand dominant woman from [place], [place]; her past medical history includes peripheral neuropathy, osteoporosis, aortic valve regurgitation, anxiety, and hyperlipidemia. In July 2021 the patient noted a lesion on the vertex of her scalp; was initially treated as possible psoriasis. Then in December 2021 she had a biopsy which showed squamous cell carcinoma; a level 5 lymph node biopsy also showed squamous cell carcinoma. Then on February 01, 2022 she had wide local excision and bilateral neck dissection; had 26 lymph nodes removed from the left of which 2 were positive and 3 from the right of which 1 was positive. She subsequently had proton beam radiotherapy completed towards the end of April 2022. Ms. Guevara was seen [facility] on April 07, 2022 for bilateral shoulder and neck pain; was seen in follow-up on April 28. She was referred to our physical therapist who instructed the patient on a home program of shoulder range of motion and stretches along with neck stretches. In addition, she was referred to a therapist in her local community. In addition, she has been working with a local massage therapist. She was last seen in August 2022 where her shoulder pain had resolved with her home pveev-jn-[id number] program. She was still was reporting having some neck discomfort which likely was secondary to radiation fibrosis as opposed to lymphedema. During this time she was given further instructions on a home stretching program for the fibrosis where she also will continue with her local therapists and a massage therapist as well. She now presents to clinic this morning for evaluation of her symptoms to assess her progress aftertherapies. She recently finished physical therapy on July 13 and occupational therapy for lymphedema more recently on 12/23. Since this time her shoulder pain has resolved, where she continues to have improved range of motion in both of her shoulders. She still does have some stiffness in her neck, but this is not as severe/significant pain and has been tolerable. She also continues to get massages x1 per month, where she feels that she has made great progress since her initial consultation. As she now has been participating in her home exercise program and making continued progress, she presents to clinic to evaluate where she stands thus far in relation to her initial consultation. OBJECTIVE VITAL SIGNS PHYSICAL EXAMINATION General: Very pleasant thin 77-year-old woman Musculoskeletal: She was just short of normal shoulder flexion/abduction which is a great improvement from her initial consultation. Neck range of motion is also grossly intact, where his only slightly limited during left rotation. She does continue to have restrictions of her neck range of motion secondary to changes consistent mostly with fibrosis. She only has minimal nonpitting edema in the neck consistent with lymphedema, where the majority ofher changes do appear consistent with fibrosis. There is no significant tenderness to palpation appreciated in the neck musculature on examination. The bilateral upper extremities exhibit normal strength on examination. ASSESSMENT / PLAN #1 Squamous cell carcinoma of the scalp status post wide local excision and jvql-wpfzxck-jhhy-rightlymph node dissection; status post proton beam radiotherapy #2 Neck fibrosis #3 Bilateral shoulder pain and decreased range of motion, improved #4 Right wrist pain #5 Possible wgnct-vepszrg-ouly-left carpal tunnel syndrome She has been making great progress where her shoulder range of motion has improved in his shoulder pain has all but resolved. She does continues to have some stiffness in her leg likely secondary to radiation changes, where she was recommended to use OTC creams for pain as needed such as menthol based creams or diclofenac gel. She also was recommended to continue her home exercise program and activity especially in her neck area to help prevent further loss of range of motion. She also does have splints for her paresthesias where she would like to defer potential referral toHand Clinic at this time. As she was made great progress with continued conservative management, she can be discharged from our clinic at this juncture. Should she have any new or worsening symptoms, she can return to clinic on as needed basis for further evaluation as indicated. Follow-Up: PRN EDUCATION: We discussed the diagnosis and treatment plan in detail. The patient expressed understanding of thecontent. No apparent learning barriers were identified; learning preferences include listening. Signed by: Paul Nunez M.D. 01/04/2023 3:04 PM CDT documented in this encounter Plan of Treatment Not on file documented as of this encounter Visit Diagnoses Diagnosis Pain Shoulder Left- Primary Pain Shoulder Right Limitation Of Motion Shoulder Joint Left Limitation Of Motion Shoulder Joint Right Bursitis Subacromial Left Bursitis Subacromial Right Pain Myofascial Pain Neck Neoplastic Malignant Related Fatigue Squamous Cell Carcinoma Of Skin Of Scalp And Neck documented in this encounter Care Teams Fly Raiser Lockstitch Relationship Specialty Start Date End Date Elsewhere, Pcp PCP - General Family Medicine 02/01/22 documented as of this encounter
--- OUTSIDE RECORDS SUMMARY | 2023-04-17 11:47 | XMS_ITS | Encounter Summary ---
Author Name Unknown Organization [facility] Address [address] [place] [address] Care Team Providers Care Risk Management Manager Name Role Phone Elsewhere, Pcp Primary Care Provider Unavailabl e Encounter Details Date Type Department Care Team (Late st Contact Info) Description 09/09/2022 Ancillary Procedure Department of Dermatology Social History [...] often do you attend chur ch or jainism services? Never 01/24/2022 Do you belong to any clubs o r organizations such as sikhism groups, unions, fraternal or athletic groups, or [...] and heating? Not hard at all 09/02/2022 [facility] - Occupational [...] your living situation today? I have a [facility] place to live 09/02/2022 Education Answer Date Recorded What is the highest level of school you have completed or the highest degree you have received? Bachelor's degree (e.g., BA, AB, BS) 01/24/2022 Sex and Gender Information Value Date Recorded Sex Assigned at Female 01/24/2022 7:37 PM CORONER TRANSPORT TECHNICIAN Gender Identity Female 01/24/2022 7:37 PM CORONER TRANSPORT TECHNICIAN Sexual Orientation Straight 01/24/2022 7: 37 PM CORONER TRANSPORT TECHNICIAN documented as of this encounter Plan of Treatment Not on file documented as of this encounter Visit Diagnoses Not on filedocumented in this encounter Care Teams Risk Management Manager Relationship Specialty Start Date End Date Elsewhere, Pcp PCP - General Family Medicine 02/01/22 documented as of this encounter
--- OUTSIDE RECORDS SUMMARY | 2023-04-17 11:47 | XMS_ITS | Encounter Summary ---
Author Name Unknown Organization [facility] [place] [facility] Address [address] [place] [id number] Care Team Providers Care Boiler Assistant Operator Name Role Phone Elsewhere, Pcp Primary Care Provider Unavailabl e Reason for Referral * Outpatient (Routine) - Closed Specialty Diagnoses / Procedures Referred By Contac t Referred To Contact Radiation Oncology Karina Garcia APRN, C.N.P., M.S.N. [address] [place] [phone] Tammie Hooks M.D., Ph.D. [address] [place] [phone] Referral ID Status Reason Start Date Expiration Date Visits Re quested Visits Authorized [id number] Closed 01/11/2023 01/10/2026 1 1 Scheduling Instructions Schedule after imaging and Med Onc appt please. H PLANER TENDER * Outpatient (Routine) - Closed Specialty Diagnoses / Procedures Referred By Contac t Referred To Contact Radiation Oncology Tammie Hooks M.D., Ph.D. [address] [place] [phone] [facility] Referral ID Status Reason Start Date Expiration Date Visits Re quested Visits Authorized [id number] Closed 09/09/2022 09/08/2025 1 1 H PLANER TENDER Reason for Visit * Outpatient (Routine) - Closed Specialty Diagnoses / Procedures Referred By Contac t Referred To Contact Radiation Oncology Tammie Hooks M.D., Ph.D. [address] [place] [phone] [facility] Referral ID Status Reason Start Date Expiration Date Visits Re quested Visits Authorized [id number] Closed 09/09/2022 09/08/2025 1 1 Encounter Details Date Type Department Care Team (Latest Contact Info) Description 01/11/2023 2:40 PM ROUGH PLANER TENDER - 01/11/2023 5:52 PM ROUGH PLANER TENDER Hospital Encounter Department of Radiation Oncology in [place], [place] [address] [place] [phone] Tammie Hooks M.D., Ph.D. [address] [place] [phone] Squamous Cell Carcinoma Of Skin Of Scalp And Neck (Primary Dx); Malignant Neoplasm Of Neck Squamous Cell; Hypothyroidism Acquired Social History Tobacco Use Types [...] often do you attend chur ch or taoism services? Never 01/24/2022 Do you belong to [...] your living situation today? I have a [facility] place to live 09/02/2022 Education Answer Date Recorded What is the highest level of school you have completed or the highest degree you have received? Bachelor's degree (e.g., BA, AB, BS) 01/24/2022 Sex and Gender Information Value Date Recorded Sex Assigned at Female 01/24/2022 7:37 PM ROUGH PLANER TENDER Gender Identity Female 01/24/2022 7:37 PM ROUGH PLANER TENDER Sexual Orientation Straight 01/24/2022 7: 37 PM ROUGH PLANER TENDER documented as of this encounter Medications at [...] inflammation. 30 g 2 09/09/2022 03/23/2023 levothyroxine (Synthroid) 50 mcg tablet Take 1 tablet (50 mcg total) by mouth daily. 30 tablet 0 01/11/2023 03/02/2023 levothyroxine (SYNTHROID, LEVOTHROID) 25 mcg tablet Take 1 tablet (25 mcg total) by mouth every morning before breakfast. 90 tablet 2 11/02/2022 03/02/2023 documented as of this encounter Progress Notes * Karina Garcia, REYNOLD, C.N.P., M.S.N. - 01/11/2023 3:00 PM CST SUBJECTIVE REQUESTING PROVIDER Tammie Hooks M.D., Ph.D. CHIEF COMPLAINT/REASON FOR VISIT The primary encounter diagnosis was Squamous Cell Carcinoma Of Skin Of Scalp And Neck. A diagnosis of Malignant Neoplasm Of Neck Squamous Cell was also pertinent to this visit. INTERVAL HISTORY: Mrs. Veronica Guevara is a 77 y.o. female from [facility] who returns to radiationoncology clinic today for follow up she is currently on active surveillance. She reports her scalp has healed well. She has not noticed any scabbing, itching, crusting or bleeding. She has had a painful spot on the left side of the neck and a bit less tender on the right side. She has not noted any bumps or lesions. She reports that her OT has felt that this is muscle andshe does have exercises to do at home. She has minimal neck edema and reports that she wears her neck/head compression at night. She also has a massage monthly to help with lymphatic drainage. She iseating well. She still has a dry mouth. She says her energy is overall pretty good and she denies constipation. 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 She was started 25 mcg synthroid on 09/08/2022 and remained on this dose after recheck in October 2022. She was seen by our colleagues in MedicalOncology prior to this appointment. She denies any concerns for todays appointment. Oncology History Squamous Cell Carcinoma Of Skin Of Scalp And Neck 03/21/2022 - 04/29/2022 Radiation Therapy Radiation Therapy Treatment Details (03/21/2022 - 04/29/2022) Sites: Midline Scalp, Bilateral Head and Neck Technique: Proton Beam Goal: Curative Planned Treatment Start Date: 03/21/2022 Malignant Neoplasm Of Neck Squamous Cell 07/2021 Initial Diagnosis July 2021: Noticed a lesion on the vertex of the scalp. Evaluated by pick and shovel man Dr. Banuelos in [place] and was treated for possible psoriasis. The lesion persisted after 6 weeks. She was then treated with UV phototherapy between September and December of 2021. September 22, 2021---December 17, 2021: Underwent biopsy of the vertex scalp lesion which revealed squamous cell carcinoma. Incisional biopsy of left level 5 lymph node also revealed squamous cell carcinoma. 12/30/2021 Biopsy/Pathology A. Skin, scalp, vertex, excisional biopsy ([id number]; 12/30/2021): Invasive poorly differentiated squamous cell carcinoma, transected at base and lateral edge of the specimen. B. Neck, left, soft tissue, biopsy ([id number]; 01/13/2022): Invasive poorly differentiated squamous cell carcinoma [...] Goal: Curative Planned Treatment Start Date: 03/15/2022 03/15/2022 - 04/29/2022 Radiation Therapy Radiation Therapy [...] recurrent squamous cell carcinoma on the scalp. Eyes: Pupils are equal and reactive to light, EOMI ENT: Oral mucous membranes do appear slightly dry. No nasal drainage. Bilateral tympanic membranes visualized. No erythema. Lungs: Respirations are easy and nonlabored, no cough Neuro: CN II-XII intact. Mildly restricted range of movement in shoulders. No palpable lymph nodes.Gait is steady DIAGNOSTICS US thyroid - 01/10/2023 IMPRESSION: Intermediate suspicion 1.2 cm right thyroid nodule. CT neck soft tissue - 01/10/2023 No cervical adenopathy by size or morphologic criteria. Stable thyroid nodules. Dedicated thyroid ultrasound would be of benefit for further characterization if not already performed. CT chest with IV contrast - 01/10/2023 IMPRESSION: Stable exam. Unchanged few pulmonary nodules, including a 3 mm groundglass nodule in the right apex. CT abdomen pelvis - 01/10/2023 IMPRESSION: No CT evidence of metastatic squamous cell carcinoma in the abdomen or pelvis. MR brain without IV contrast - 01/10/2023 IMPRESSION: 1. Approximately 0.8cm flat indeterminate left posterior scalp enhancing cutaneous and subcutaneouslesion at the posterior aspect of the resection bed appears similar to slightly less prominent on the 09/09/[address] This remains indeterminate and continued imaging follow-up is recommended. 2. Abnormal decreased T1 marrow signal involving the underlying left parietal bone extending slightly across the midline into the right parietal bone is indeterminate and also warrants follow-up. LABS 09/08/22: TSH: 12.2, T4 0.4 10/21/2022: TSH 3.6 01/11/2023: TSH 9.6 T4: 1.3 Thyroperoxidase Ab: <15.0 ASSESSMENT / PLAN #Squamous cell carcinoma of the scalp #Iatrogenic hypothyroidism #Thyroid nodule 77 y.o. woman with [id number] SqCC of the scalp vertex, 3.5 cm primary, 1.1 cm DOI, LVI+, PNI-, margin-, 2/26 LN on left with XIN, 1/3 LN on right XIN-. She completed 60 Gy to scalp and 60 Gy to bilateral necks (with 66 Gy/30 fx to two gross nodes), 54 Gy/ 30 fx to elective oumou radiation. She completed radiation treatment 04/29/2022. Dr Hooks has reviewed imaging obtained for today's visit. No evidence for recurrence. 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 She was started 25 mcg synthroid on 09/08/2022 and remained on this dose after recheck in October. Her TSH is 9.6 today, we do recommend increasing to 50 mcg Synthroid and recheck in 6 weeks with her local provider. Patient would like this drawn locally with Dr Ly due to risk of bad weather and driving. We will send a letter to Dr Ly to request assistance with obtaining a TSH level and will ask that the results be sent to us via fax Mrs Guevara has 2 months of synthroid 25 mcg at home and will double this until she runs out and a new prescription for 30 day supply of 50 mcg has been sent to her local pharmacy. (She will need a new prescription for synthroid following her TSH check in 6 weeks). Plan: TSH drawn locally in 6 weeks, call her with result (letter sent to Dr Wynne to request assistancewith lab draw and to fax results) We will see her when she returns in 3 months in coordination with her Medical Oncology visit and imaging. Future recommendations: We discussed that we do [...] of the patient today. Time includes both cdr-yzyk-vx-face wzhszxu-yu-rdnw patient care. H PLANER TENDER documented in this encounter Plan of Treatment Scheduled Referrals Name Type Priority Associated Diagnoses Order Schedule Radiation Oncology office visit (clinic) Outpatient Referral Routine Once for 1 Occurrences starting 01/11/2023 until 01/11/2023 Radiation Oncology office visit (clinic) Outpatient Referral Routine Expected: (Approximate), Expires: 04/13/2024 documented as of this encounter Results * Thyroid Function [place] (04/13/2023 7:54 AM ROUGH PLANER TENDER) TSH, Sensitive 3.4 0.3 - 4.2 mIU/L 04/13/2023 9:00 AM ROUGH PLANER TENDER DTL Blood (Blood, Venous) 04/13/2023 7:54 AM ROUGH PLANER TENDER 04/13/2023 8:28 AM ROUGH PLANER TENDER [place] Hall APRN.N.Azra., M.S.N. LAB BLOOD ADD-ON [facility] [address] [place], [place] [address] DTL [facility] [address] [place] [address] * (ABNORMAL) Thyroid Function [place] (01/11/2023 8:01 AM ROUGH PLANER TENDER) TSH, Sensitive 9.6(H) 0.3 - 4.2 mIU/L 01/11/2023 10:48 AM ROUGH PLANER TENDER DTL Blood (Blood, Venous) 01/11/2023 8:01 AM ROUGH PLANER TENDER 01/11/2023 10:14 AM ROUGH PLANER TENDER Tammie Hooks M.D., Ph.D. LAB BLOOD A DD-ON [facility] [address] [place] [address], [facility] DTL [facility] [address] [place] [address] documented in this encounter Visit Diagnoses Diagnosis Squamous Cell Carcinoma Of Skin Of Scalp And Neck- Primary Malignant Neoplasm Of Neck Squamous Cell Hypothyroidism Acquired documented in this encounter Care Teams Boiler Assistant Operator Relationship Specialty Start Date End Date Elsewhere, Pcp PCP - General Family Medicine 02/01/22 documented as of this encounter
--- OUTSIDE RECORDS SUMMARY | 2023-04-17 11:47 | XMS_ITS | Encounter Summary ---
Author Name Unknown Organization [facility] Address [address] [place] [address] Care Team Providers Care Development Chemist Name Role Phone Elsewhere, Pcp Primary Care Provider Unavailabl e Encounter Details Date Type Department Care Team (Latest Contact Info) Description 01/10/2023 9:00 AM TOOLS PROGRAMMER Clinical Communication Virtual Review in [place], [place] [address] [place], [place] [phone] Social History Tobacco Use Types Packs/Day Years [...] often do you attend chur ch or roman catholic services? Never 01/24/2022 Do you belong to [...] and heating? Not hard at all 09/02/2022 [facility] [place] [facility] Occupat ional Health - Occupational Stress [...] Sex Assigned at Female 01/24/2022 7:37 PM TOOLS PROGRAMMER Gender Identity Female 01/24/2022 7:37 PM TOOLS PROGRAMMER Sexual Orientation Straight 01/24/2022 7: 37 PM TOOLS PROGRAMMER documented as of this encounter Plan of Treatment Not on file documented as of this encounter Visit Diagnoses Not on filedocumented in this encounter Care Teams Development Chemist Relationship Specialty Start Date End Date Elsewhere, Pcp PCP - General Family Medicine 02/01/22 documented as of this encounter
--- OUTSIDE RECORDS SUMMARY | 2023-04-17 11:47 | XMS_ITS | Encounter Summary ---
Author Name Unknown Organization [facility] Address [address] [place] [address] Care Team Providers Care [facility] Director Name Role Phone Elsewhere, Pcp Primary Care Provider Unavailabl e Reason for Referral * Outpatient (Routine) - Closed Specialty Diagnoses / Procedures Referred By Contac t Referred To Contact Diagnoses Squamous Cell Carcinoma Of Skin Of Scalp And Neck Procedures US Thyroid Tammie Hooks M.D., Ph.D. [address] [place] [address] [facility] Referral ID Status Reason Start Date Expiration Date Visits Re quested Visits Authorized [id number] Closed 09/09/2022 09/09/2023 1 1 STRIAL SAFETY ENGINEER Reason for Visit * Outpatient (Routine) - Closed Specialty Diagnoses / Procedures Referred By Contac t Referred To Contact Diagnoses Squamous Cell Carcinoma Of Skin Of Scalp And Neck Procedures US Thyroid Tammie Hooks M.D., Ph.D. [address] [place] [address] [facility] Referral ID Status Reason Start Date Expiration Date Visits Re quested Visits Authorized [id number] Closed 09/09/2022 09/09/2023 1 1 Encounter Details Date Type Department Care Team (Latest Contact Info) Description 01/11/2023 10:51 AM INDUSTRIAL SAFETY ENGINEER - 01/11/2023 2:39 PM INDUSTRIAL SAFETY ENGINEER Hospital Encounter Department of Radiology, [facility], in [place], [place] [address] [place] [address] Tammie Hooks M.D., Ph.D. [address] [place] [address] Squamous Cell Carcinoma Of Skin Of Scalp [...] often do you attend chur ch or sikhism services? Never 01/24/2022 Do you belong to any clubs o r organizations such as religion groups, unions, fraternal or athletic groups, or [...] and heating? Not hard at all 09/02/2022 [facility] Questionnaire Answer Date [...] your living situation today? I have a [facility] place to live 09/02/2022 Education Answer Date Recorded What is the highest level of school you have completed or the highest degree you have received? Bachelor's degree (e.g., BA, AB, BS) 01/24/2022 Sex and Gender Information Value Date Recorded Sex Assigned at Female 01/24/2022 7:37 PM INDUSTRIAL SAFETY ENGINEER Gender Identity Female 01/24/2022 7:37 PM INDUSTRIAL SAFETY ENGINEER Sexual Orientation Straight 01/24/2022 7: 37 PM INDUSTRIAL SAFETY ENGINEER documented as of this encounter Medications at [...] Procedure Name Priority Date/Time Associated Diagnosis Comments US THYROID RAD - Routine (most inpatients and all outpatients) 01/11/2023 12:18 PM INDUSTRIAL SAFETY ENGINEER Squamous Cell Carcinoma Of Skin Of Scalp And Neck documented in this encounter Results * US Thyroid (01/11/2023 12:18 PM INDUSTRIAL SAFETY ENGINEER) Anatomical Region Laterality Modality Head and Neck, Ultrasound RS T LOS, Ultrasound ARZ LOS, Ultrasound FLA LOS N/A Ultrasound 01/11/2023 12:2 4 PM INDUSTRIAL SAFETY ENGINEER Impressions 01/11/2023 12:59 PM INDUSTRIAL SAFETY ENGINEER Intermediate suspicion 1.2 cm right thyroid nodule. Narrative 01/11/2023 12:59 PM INDUSTRIAL SAFETY ENGINEER EXAM: US THYROID COMPARISON: Same day CT [...] Care Process Model and ACR TI-RADS. Link: https://askmayoexpert.[email or web address]/topic/clinical-answers/[email or web address]/sec-[email or web address] 90456 ?? ACR Link: ??https://www.acr.org/Clinical-Resources/Nhzjnhena-tqx-Jhdw-Systems/TI-RADS The AskMayoExpert Thyroid Nodule CPM states the [...] Nodule Care Process Model and ACR TI-RADS. Link:https://[email or web address]/topic/clinical-answers/[email or web address]/se c-[email or web address] 15564 ACR Link:https://www.acr.org/Clinical-Resources/Mfiymmkgz-pzt-Xuhy-Systems/TI-RADS The AskMayoExpert Thyroid Nodule CPM states the [...] right thyroid nodule. Tammie Hooks M.D., Ph.D. [facility] PROC EDURES documented in this encounter Visit Diagnoses Diagnosis Squamous Cell Carcinoma Of Skin Of Scalp And Neck documented in this encounter Care Teams Family Service Center Director Relationship Specialty Start Date End Date Elsewhere, Pcp PCP - General Family Medicine 02/01/22 documented as of this encounter
--- OUTSIDE RECORDS SUMMARY | 2023-04-17 11:47 | XMS_ITS | Encounter Summary ---
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 [address] [place] [phone] [facility] Referral ID Status Reason Start Date Expiration Date Visits Re quested Visits Authorized [id number] Closed 06/10/2022 06/10/2023 1 1 * MRI/CAT/PET Scan (Routine) - Closed Specialty Diagnoses / Procedures Referred By Contac t Referred To Contact Radiology Diagnoses Squamous Cell Carcinoma Of Skin Of Scalp And Neck Procedures CT Head with IV Contrast Tammie Hooks M.D., Ph.D. 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 [address] [place] [phone] [facility] Referral ID Status Reason Start Date Expiration Date Visits Re quested Visits Authorized [id number] Closed 06/10/2022 06/10/2023 1 1 Encounter Details Date Type Department Care Team (Latest Contact Info) Description 09/09/2022 8:44 AM CDT - 09/09/2022 1:30 PM CDT Hospital Encounter Department of Radiology, [facility], in [place], [place] [address] [place] [address] Tammie Hooks M.D., Ph.D. [address] [place] [address] Squamous Cell Carcinoma Of Skin Of Scalp And Neck; Secondary Malignant Neoplasm Lymph Node (HCC) Discharge [...] How often do you attend chur or denominational services? Never 01/24/2022 Do you belong to any clubs o r organizations such as druze groups, unions, fraternal or athletic groups, or [...] and heating? Not hard at all 09/02/2022 [facility] [place] [facility] Occupat ional Health - Occupational Stress [...] Answer Date Recorded Dental: Regular Dentist Yes 11/21/20 22 Employment Answer Date Recorded Employment status [...] Sex Assigned at Female 01/24/2022 7:37 PM TECHNOLOGY ADOPTION MANAGER Gender Identity Female 01/24/2022 7:37 PM TECHNOLOGY ADOPTION MANAGER Sexual Orientation Straight 01/24/2022 7: 37 PM TECHNOLOGY ADOPTION MANAGER documented as of this encounter Medications at [...] morning with cereal 0 hydrocortisone 2.5 % ointmentIndications:De rmatitis Apply twice daily to the gluteal cleft/buttock for 1-2 weeks, then as needed for flares and inflammation. 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 Narrative 09/09/2022 10:11 AM CDT EXAM: ??CT ABDOMEN PELVIS WITH IV CONTRAST COMPARISON: ??CT of the abdomen and pelvis 06/09/2022 FINDINGS: ?? No lymphadenopathy or mass in the abdomen or pelvis. Hepatic and renal cysts. Normal appearance of the pancreas, spleen and adrenal glands. Hysterectomy. Sigmoid colonic diverticulosis. Small sliding hiatal hernia. No bone metastasis. This examination was performed in conjunction with a CT of the chest, which will be reported separately. Procedure Note Filippo López M.D. - 09/09/2022 EXAM: CT ABDOMEN PELVIS WITH IV CONTRAST COMPARISON: CT of the abdomen and pelvis 06/09/2022 FINDINGS: No lymphadenopathy or mass in the abdomen or pelvis. Hepatic and renal cysts. Normal appearance of the pancreas, spleen andadrenal glands. Hysterectomy. Sigmoid colonic diverticulosis. Small sliding hiatal hernia. No bone metastasis. This examination was performed in conjunction with a CT of the chest,which will be reported separately. IMPRESSION: No evidence of metastatic squamous cell carcinoma in the abdomen orpelvis. Farnaz Mccarty APRN, C.N.P. IMG CT NE OCEDURES * CT Chest with IV Contrast (09/09/2022 9:36 AM CDT) Anatomical Region Laterality Modality Chest, Thoracic RST LOS, Tho racic ARZ LOS, Thoracic ARZ LOS, Thoracic FLA LOS N/A Computed Tomography, Compute d Tomography 09/09/2022 9:43 AM CDT Impressions 09/09/2022 10:31 AM CDT 1. No definite evidence of thoracic metastatic disease. 2. Stable tiny indeterminate pulmonary nodules. Narrative 09/09/2022 10:31 AM CDT EXAM: CT CHEST WITH IV CONTRAST COMPARISON: [facility] CT chest 06/09/2022. FINDINGS: A 3 mm peribronchial nodule or lymph node centrally in the left upper lobe (series 3 image 303), tiny 2 to 3 mm solid nodules in the right lung (images 155, 474), and a 3 mm groundglass nodule in the right upper lobe (image 171) are stable. No new nodules. Mild biapical scarring. Mild dependent and bibasal atelectasis. No thoracic lymphadenopathy. No effusions. Stable small hypodense right thyroid nodule. Small esophageal hiatal hernia. Mild degenerative change thoracic spine. Probable hemangioma T9 vertebral body. This examination was performed in conjunction with a CT of the abdomen, which will be reported separately. 3D maximum intensity projection (MIP) images were created on a dependent workstation as ordered by the treating provider and reviewed by the radiologist to increase sensitivity for detection of pulmonary nodules. Procedure Note Aidan Ramos M.D. - 09/09/2022 EXAM: CT CHEST WITH IV CONTRAST COMPARISON: [facility] CT chest 06/09/2022. FINDINGS: A 3 mm peribronchial nodule or lymph node centrally in the left upper lobe(series 3 image 303), tiny 2 to 3 mm solid nodules in the right lung (images 155, 474), and a 3mm groundglass nodule in the right upper lobe (image 171) are stable. No new nodules. Mild biapicalscarring. Mild dependent and bibasal atelectasis. No thoracic lymphadenopathy. No effusions. Stable small hypodense right thyroid nodule. Small esophageal hiatal hernia. Mild degenerative change thoracic spine. Probable hemangioma T9 vertebralbody. This examination was performed in conjunction with a CT of the abdomen,which will be reported separately. 3D maximum intensity projection (MIP) images were created on a dependentworkstation as ordered by the treating provider and reviewed by the radiologist to increasesensitivity for detection of pulmonary nodules. IMPRESSION: 1. No definite evidence of thoracic metastatic disease. 2. Stable tiny indeterminate pulmonary nodules. Farnaz Mccarty APRN, C.N.P. G CT NE OCEDURES * CT Neck Soft Tissue with IV Contrast (09/09/2022 9:36 AM CDT) Anatomical Region Laterality Modality Neck, Neuroradiology RST LOS , Neuroradiology ARZ LOS, Neuroradiology FLA LOS N/A Computed Tomography, Compute d Tomography 09/09/2022 9:43 AM CDT Impressions 09/09/2022 11:21 AM CDT 1. Indeterminate 7 mm soft tissue nodule along the left posterior aspect of the scalp postoperative margin is indeterminate for local recurrence. Correlation with visual inspection could be helpful. 2. No findings for metastatic disease in the neck. 3. Incidentally noted 1 cm right thyroid lobe nodule. This could be further evaluated with nonemergent dedicated thyroid ultrasound. Narrative 09/09/2022 11:21 AM CDT EXAM: CT HEAD WITH IV CONTRAST, CT NECK SOFT TISSUE WITH IV CONTRAST COMPARISON: CT head with and without IV contrast 01/28/2022. CT neck soft tissue with IV contrast 06/09/2022. 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 HEAD: Interval postoperative changes at the vertex. There is approximately 7 x 6 x 3 mm soft tissue nodule along the left posterior aspect of the postoperative margins (series ; 10/02). This lesion extends to the outer table of the calvarium without evidence for cortical erosion. Additional areas of mild soft tissue thickening at the operative site presumably represent postoperative change. No acute intracranial abnormality. Ott-white matter differentiation is preserved. No acute intracranial hemorrhage, extra-axial fluid collection, mass effect, or findings for infarct. Mild global parenchymal atrophy with ex vacuo dilation of the ventricles. Paranasal sinuses and mastoid air cells are clear. Bilateral pseudophakia. No suspicious bone lesion. NECK: Similar mild soft tissue thickening and architectural distortion the bilateral neck dissection site. No abnormal enhancement or nodularity. No cervical lymphadenopathy. The previously enlarged, heterogeneous lingual tonsils have decreased in size since 06/09/2022. The oral cavity, nasopharynx, oropharynx, hypopharynx, and larynx are without focal mass effect or abnormal enhancement. The major salivary glands and ducts are without focal abnormality. A heterogenous, approximately 10 x 6 x 11 mm (AP, RL, SI) right thyroid lobe nodule is not significantly changed since 06/09/2022 (series 36; ). Additional bilateral thyroid nodules. Mild spondylotic changes of the cervical spine. No suspicious bone lesion. This examination was performed in conjunction with a CT of the chest, which will be reported separately. ?? Procedure Note Ngozi Fletcher M.D. - 09/09/2022 EXAM: CT HEAD WITH IV CONTRAST, CT NECK SOFT TISSUE WITH IV CONTRAST COMPARISON: CT head with and without IV contrast 01/28/2022. CT neck softtissue with IV contrast 06/09/2022. 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 HEAD: Interval postoperative changes at the vertex. There is approximately7 x 6 x 3 mm soft tissue nodule along the left posterior aspect of the postoperative margins(series ; 10/02). This lesion extends to the outer table of the calvarium without evidence forcortical erosion. Additional areas of mild soft tissue thickening at the operative site presumablyrepresent postoperative change. No acute intracranial abnormality. Ott-white matterdifferentiation is preserved. No acute intracranial hemorrhage, extra-axial fluid collection, mass effect, orfindings for infarct. Mild global parenchymal atrophy with ex vacuo dilation of the ventricles.Paranasal sinuses and mastoid air cells are clear. Bilateral pseudophakia. No suspicious bone lesion. NECK: Similar mild soft tissue thickening and architectural distortion thebilateral neck dissection site. No abnormal enhancement or nodularity. No cervical lymphadenopathy.The previously enlarged, heterogeneous lingual tonsils have decreased in size since 06/09/2022. Theoral cavity, nasopharynx, oropharynx, hypopharynx, and larynx are without focal mass effect orabnormal enhancement. The major salivary glands and ducts are without focal abnormality. A heterogenous,approximately 10 x 6 x 11 mm (AP, RL, SI) right thyroid lobe nodule is not significantly changedsince 06/09/2022 (series 336; 54). Additional bilateral thyroid nodules. Mild spondyloticchanges of the cervical spine. No suspicious bone lesion. This examination was performed in conjunction with a CT of the chest,which will be reported separately. IMPRESSION: 1. Indeterminate 7 mm soft tissue nodule along the left posterior aspectof the scalp postoperative margin is indeterminate for local recurrence. Correlation with visualinspection could be helpful. 2. No findings for metastatic disease in the neck. 3. Incidentally noted 1 cm right thyroid lobe nodule. This could befurther evaluated with nonemergent dedicated thyroid ultrasound. Farnaz Mccarty APRN, C.N.P. IMG CT NE OCEDURES * CT Head with IV Contrast (09/09/2022 9:36 AM CDT) Anatomical Region Laterality Modality Head, Neuroradiology RST [facility] , [facility], [facility], [facility]iology [facility] N/A Computed Tomography, C omputed Tomography 09/09/2022 10:2 2 AM CDT Impressions 09/09/2022 11:21 AM CDT 1. Indeterminate 7 mm soft tissue nodule along the left posterior aspect of the scalp postoperative margin is indeterminate for local recurrence. Correlation with visual inspection could be helpful. 2. No findings for metastatic disease in the neck. 3. Incidentally noted 1 cm right thyroid lobe nodule. This could be further evaluated with nonemergent dedicated thyroid ultrasound. Narrative 09/09/2022 11:21 AM CDT EXAM: CT HEAD WITH IV CONTRAST, CT NECK SOFT TISSUE WITH IV CONTRAST COMPARISON: CT head with and without IV contrast 01/28/2022. CT neck soft tissue with IV contrast 06/09/2022. 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 HEAD: Interval postoperative changes at the vertex. There is approximately 7 x 6 x 3 mm soft tissue nodule along the left posterior aspect of the postoperative margins (series ; 10/02). This lesion extends to the outer table of the calvarium without evidence for cortical erosion. Additional areas of mild soft tissue thickening at the operative site presumably represent postoperative change. No acute intracranial abnormality. Ott-white matter differentiation is preserved. No acute intracranial hemorrhage, extra-axial fluid collection, mass effect, or findings for infarct. Mild global parenchymal atrophy with ex vacuo dilation of the ventricles. Paranasal sinuses and mastoid air cells are clear. Bilateral pseudophakia. No suspicious bone lesion. NECK: Similar mild soft tissue thickening and architectural distortion the bilateral neck dissection site. No abnormal enhancement or nodularity. No cervical lymphadenopathy. The previously enlarged, heterogeneous lingual tonsils have decreased in size since 06/09/2022. The oral cavity, nasopharynx, oropharynx, hypopharynx, and larynx are without focal mass effect or abnormal enhancement. The major salivary glands and ducts are without focal abnormality. A heterogenous, approximately 10 x 6 x 11 mm (AP, RL, SI) right thyroid lobe nodule is not significantly changed since 06/09/2022 (series ; ). Additional bilateral thyroid nodules. Mild spondylotic changes of the cervical spine. No suspicious bone lesion. This examination was performed in conjunction with a CT of the chest, which will be reported separately. ?? Procedure Note Ngozi Fletcher M.D. - 09/09/2022 EXAM: CT HEAD WITH IV CONTRAST, CT NECK SOFT TISSUE WITH IV CONTRAST COMPARISON: CT head with and without IV contrast 01/28/2022. CT neck softtissue with IV contrast 06/09/2022. 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 HEAD: Interval postoperative changes at the vertex. There is approximately7 x 6 x 3 mm soft tissue nodule along the left posterior aspect of the postoperative margins(series ; 10/02). This lesion extends to the outer table of the calvarium without evidence forcortical erosion. Additional areas of mild soft tissue thickening at the operative site presumablyrepresent postoperative change. No acute intracranial abnormality. Ott-white matterdifferentiation is preserved. No acute intracranial hemorrhage, extra-axial fluid collection, mass effect, orfindings for infarct. Mild global parenchymal atrophy with ex vacuo dilation of the ventricles.Paranasal sinuses and mastoid air cells are clear. Bilateral pseudophakia. No suspicious bone lesion. NECK: Similar mild soft tissue thickening and architectural distortion thebilateral neck dissection site. No abnormal enhancement or nodularity. No cervical lymphadenopathy.The previously enlarged, heterogeneous lingual tonsils have decreased in size since 06/09/2022. Theoral cavity, nasopharynx, oropharynx, hypopharynx, and larynx are without focal mass effect orabnormal enhancement. The major salivary glands and ducts are without focal abnormality. A heterogenous,approximately 10 x 6 x 11 mm (AP, RL, SI) right thyroid lobe nodule is not significantly changedsince 06/09/2022 (series 36; ). Additional bilateral thyroid nodules. Mild spondyloticchanges of the cervical spine. No suspicious bone lesion. This examination was performed in conjunction with a CT of the chest,which will be reported separately. IMPRESSION: 1. Indeterminate 7 mm soft tissue nodule along the left posterior aspectof the scalp postoperative margin is indeterminate for local recurrence. Correlation with visualinspection could be helpful. 2. No findings for metastatic disease in the neck. 3. Incidentally noted 1 cm right thyroid lobe nodule. This could befurther evaluated with nonemergent dedicated thyroid ultrasound. Tammie Hooks M.D., Ph.D. 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) documented in this encounter Administered Medications Inactive Administered Medications - up to 3 most recent administrations Medication Order MAR Action Action Date Dose Rate Site iohexoL 300 mg iodine/mL solution 1-200 mL (OMNIPAQUE) 1-200 mL, intravenous, Once in imaging, contrast, Starting on Mon09/09/22 at 0855, For 1 dose, Imaging Protocol Orders, Dose per Radiant Medication Guidelines Given 09/09/2022 9:36 AM CDT 140 mL sodium chloride (PF) 0.9 % injection 1-100 mL 1-100 mL, intravenous, Once, On Mon09/09/22 at 0915, For 1 dose, Imaging Protocol Orders Given 09/09/2022 9:37 AM CDT 50 mL documented in this encounter Care Teams Candy Dipper Relationship Specialty Start Date End Date Elsewhere, Pcp PCP - General Family Medicine 02/01/22 documented as of this encounter
--- OUTSIDE RECORDS SUMMARY | 2023-04-17 11:47 | XMS_ITS | Encounter Summary ---
Author Name Unknown Organization [facility] Address [address] [place] [address] Care Team Providers Care Filling Machine Operator Name Role Phone Elsewhere, Pcp Primary Care Provider Unavailabl e Encounter Details Date Type Department Care Team (Late st Contact Info) Description 11/02/2022 Orders Only Department of Radiation Oncology in [place], [place] [address] [place] [address] Mattie Stephenson, R.N. Social History Tobacco Use Types Packs/Day [...] often do you attend chur ch or lutheran services? Never 01/24/2022 Do you belong to [...] and heating? Not hard at all 09/02/2022 [facility] Occupat ionnj Health - Occupational Stress Questionnaire Answer [...] your living situation today? I have a [facility] place to live 09/02/2022 Education Answer Date Recorded What is the highest level of school you have completed or the highest degree you have received? Bachelor's degree (e.g., BA, AB, BS) 01/24/2022 Sex and Gender Information Value Date Recorded Sex Assigned at Female 01/24/2022 7:37 PM MACHINE FELLER Gender Identity Female 01/24/2022 7:37 PM MACHINE FELLER Sexual Orientation Straight 01/24/2022 7: 37 PM MACHINE FELLER documented as of this encounter Plan of Treatment Not on file documented as of this encounter Visit Diagnoses Not on filedocumented in this encounter Care Teams Filling Machine Operator Relationship Specialty Start Date End Date Elsewhere, Pcp PCP - General Family Medicine 02/01/22 documented as of this encounter
--- OUTSIDE RECORDS SUMMARY | 2023-04-17 11:47 | XMS_ITS | Encounter Summary ---
Author Name Unknown Organization [facility] Address [address] [place] [address] Care Team Providers Care Material Loader Name Role Phone Elsewhere, Pcp Primary Care Provider Unavailabl e Encounter Details Date Type Department Care Team (Late st Contact Info) Description 11/01/2022 Orders Only Department of Dermatology in [place], [place] [address] [place] [address] Meagan Akers, ShilohA.-C., M.S. [address] [place] [address] Social History Tobacco Use Types Packs/Day Years [...] often do you attend chur ch or catholic services? Never 01/24/2022 Do you belong to any clubs o r organizations such as mosque groups, unions, fraternal or athletic groups, or [...] hard at all 09/02/2022 [facility] of Occupat ional Health - Occupational [...] your living situation today? I have a [facility] place to live 09/02/2022 Education Answer Date Recorded What is the highest level of school you have completed or the highest degree you have received? Bachelor's degree (e.g., BA, AB, BS) 01/24/2022 Sex and Gender Information Value Date Recorded Sex Assigned at Female 01/24/2022 7:37 PM COMMISSIONS MANAGER Gender Identity Female 01/24/2022 7:37 PM COMMISSIONS MANAGER Sexual Orientation Straight 01/24/2022 7: 37 PM COMMISSIONS MANAGER documented as of this encounter Plan of Treatment Not on file documented as of this encounter Visit Diagnoses Not on filedocumented in this encounter Care Teams Material Loader Relationship Specialty Start Date End Date Elsewhere, Pcp PCP - General Family Medicine 02/01/22 documented as of this encounter
--- OUTSIDE RECORDS SUMMARY | 2023-04-17 11:48 | XMS_ITS | Encounter Summary ---
Author Name Unknown Organization [facility] Address [address] [place] [address] Care Team Providers Care Atmospheric Chemist Name Role Phone Elsewhere, Pcp Primary Care Provider Unavailabl e Reason for Referral * MRI/CAT/PET Scan (Routine) - Closed Specialty Diagnoses / Procedures Referred By Contac t Referred To Contact Radiology Diagnoses Secondary Malignant Neoplasm Lymph Node (HCC) Procedures CT Neck Soft Tissue with IV Contrast Mc Mcknight M.D., Ph.D. [address] [place] [phone] [facility] Referral ID Status Reason Start Date Expiration Date Visits Re quested Visits Authorized [id number] Closed 09/08/2022 09/08/2023 1 1 * MRI/CAT/PET Scan (Routine) - Closed Specialty Diagnoses / Procedures Referred By Contac t Referred To Contact Radiology Diagnoses Secondary Malignant Neoplasm Lymph Node (HCC) Procedures CT Chest with IV Contrast Mc Mcknight M.D., Ph.D. [address] [place] [phone] [facility] Referral ID Status Reason Start Date Expiration Date Visits Re quested Visits Authorized [id number] Closed 09/08/2022 09/08/2023 1 1 * MRI/CAT/PET Scan (Routine) - Closed Specialty Diagnoses / Procedures Referred By Ryan cronin Referred To Contact Radiology Diagnoses Secondary Malignant Neoplasm Lymph Node (HCC) Procedures CT Abdomen Pelvis with IV Contrast Mc Mcknight M.D., Ph.D. [address] [place] [phone] [facility] Referral ID Status Reason Start Date Expiration Date Visits Re quested Visits Authorized [id number] Closed 09/08/2022 09/08/2023 1 1 Reason for Visit * Outpatient (Routine) - Closed Specialty Diagnoses / Procedures Referred By Ryan cronin Referred To Contact Oncology Farnaz Mccarty APRN, C.N.P. [address] [place] [phone] [facility] Referral ID Status Reason Start Date Expiration Date Visits Re quested Visits Authorized [id number] Closed 06/10/2022 06/09/2025 1 1 Encounter Details Date Type Department Care Team (Late st Contact Info) Description 09/08/2022 4:40 PM CDT Office Visit Department of Oncology in [place], [place] [address] [place] [phone] Mc Mcknight M.D., Ph.D. [address] [place] [phone] Secondary Malignant Neoplasm Lymph Node (HCC) (Primary Dx) Social History Tobacco Use Types [...] often do you attend chur ch or buddhism services? Never 01/24/2022 Do you belong to any clubs o r organizations such as mu-ism groups, unions, fraternal or athletic groups, or [...] and heating? Not hard at all 09/02/2022 [facility] [place] of Occupat ional Health - Occupational Stress [...] your living situation today? I have a [facility] place to live 09/02/2022 Education Answer Date Recorded What is the highest level of school you have completed or the highest degree you have received? Bachelor's degree (e.g., BA, AB, BS) 01/24/2022 Sex and Gender Information Value Date Recorded Sex Assigned at Female 01/24/2022 7:37 PM TETRYL BOILING TUB OPERATOR Gender Identity Female 01/24/2022 7:37 PM TETRYL BOILING TUB OPERATOR Sexual Orientation Straight 01/24/2022 7: 37 PM TETRYL BOILING TUB OPERATOR documented as of this encounter Last Filed Vital Signs Vital Sign Reading Time Taken Comments Blood Pressure 126/70 09/08/2022 3:37 PM CDT Pulse 65 09/08/2022 3:37 PM CDT Temperature 37 ??C (98.6 ??F) 09/08/2022 3:37 PM CDT Respiratory Rate 17 09/08/2022 3:37 PM CDT Oxygen Saturation 98% 09/08/2022 3:37 PM CDT Inhaled Oxygen Concentration - - Weight 62 kg (136 lb 11 oz) 09/08/2022 3:37 PM C DT Height 162 cm (5' 3.78) 09/08/2022 3:37 PM CDT Body Mass Index 23.62 09/08/2022 3:37 PM CDT documented in this encounter Progress Notes * cM Mcknight M.D., Ph.D. - 09/08/2022 4:40 PM CDT SUBJECTIVE CHIEF COMPLAINT/REASON FOR VISIT Resected, regionally metastatic SCC of the scalp, s/p adjuvant RT. HISTORY OF PRESENT ILLNESS Oncology History Squamous Cell Carcinoma Of Skin Of Scalp And Neck 03/21/2022 - 04/29/2022 Radiation Therapy Radiation Therapy Treatment Details (03/21/2022 - 04/29/2022) Sites: Midline Scalp, Bilateral Head and Neck Technique: Proton Beam Goal: Curative Planned Treatment Start Date: 03/21/2022 Malignant Neoplasm Of Neck Squamous Cell 07/2021 Initial Diagnosis July 2021: Noticed a lesion on the vertex of the scalp. Evaluated by tube maker Dr. Banuelos in [place] and was treated for possible psoriasis. The lesion persisted after 6 weeks. She was then treated with UV phototherapy between September and December of 2021. September 22, 2021---December 17, 2021: Underwent biopsy of the vertex scalp lesion which revealed squamous cell carcinoma. Incisional biopsy of left level 5 lymph node also revealed squamous cell carcinoma. 12/30/2021 Biopsy/Pathology A. Skin, scalp, vertex, excisional biopsy ([id number]; 12/30/2021): Invasive poorly differentiated squamous cell carcinoma, transected at base and lateral edge of the specimen. B. Neck, left, soft tissue, biopsy ([id number]; 01/13/2022): Invasive poorly differentiated squamous cell carcinoma [...] Curative Planned Treatment Start Date: 03/15/2022 INTERVAL HISTORY: Ms. Guevara returns for follow-up of SCC. Currently she has no active complaints. Doing well. ECOG performance status is 0. MEDICAL/SURGICAL HISTORY Past Medical History: Diagnosis Date Hyperlipidemia Regurgitation Aortic Past Surgical History: Procedure Laterality Date NECK DISSECTION Bilateral 02/01/2022 Procedure: NECK DISSECTION.; Surgeon: Edi Castorena M.D.; Location: [facility] OR WIDE LOCAL EXCISION Posterior 02/01/2022 Procedure: WIDE LOCAL EXCISION, scalp lesion.; Surgeon: Edi Castorena M.D.; Location: [facility] OR REVIEW OF SYSTEMS Pertinent items are noted in HPI; all other review of systems were negative. I reviewed the Medications, Allergies, Past Medical History, Social History, and Family History. OBJECTIVE VITAL SIGNS Vitals: 09/08/22 1537 BP: 126/70 BP Location: Right arm Patient Position: Sitting Cuff Size: Regular Pulse: 65 Resp: 17 Temp: 37 ??C TempSrc: Tympanic SpO2: 98% Weight: 62 kg Height: 162 cm No data recorded PHYSICAL EXAMINATION General: Alert female, in no acute distress. Ambulates on and off the exam table without difficulty. Skin: No rashes. Well healing surgical scars. Eyes: Sclerae non-icteric. ENT: Moist mucous membranes. No oral lesions. Lymph: No palpable cervical, supraclavicular, or axillary lymphadenopathy. Heart: Regular rate and rhythm. Lungs: Clear to auscultation and resonant to percussion bilaterally. Abdomen: Soft, non-tender, non-distended. ASSESSMENT / PLAN Resected, regionally metastatic SCC of the scalp, s/p adjuvant RT. Mrs. Guevara is here today prior to her CT scans for f/u visit for her stage III SCC. By clinical exam, there does not appear to beany sign of cancer recurrence. Scans will be done tomorrow prior to her visit with ENT and [facility]. I will follow-up on those results and if there are any issues, reach out to the patient. Otherwise, our plan will be to see her back in clinic in 3 months. No evidence of relapse on PE. PATIENT EDUCATION: Ready to learn, no apparent learning barriers were identified; learning preferences include listening. Explained diagnosis and treatment plan; patient expressed understanding of the content. ADMINISTRATIVE BILLING: I personally spent over half of a total 30 minutes face to face with the patient in counseling and discussion and/or coordination of care as described above. documented in this encounter Plan of Treatment Not on file documented as of this encounter Results * CT Neck Soft Tissue with IV Contrast (01/11/2023 9:06 AM TETRYL BOILING TUB OPERATOR) Anatomical Region Laterality Modality Neck, Neuroradiology RST LOS , Neuroradiology ARZ LOS, Neuroradiology FLA LOS N/A Computed Tomography, Compute d Tomography 01/11/2023 8:56 AM TETRYL BOILING TUB OPERATOR Impressions 01/11/2023 10:18 AM TETRYL BOILING TUB OPERATOR No cervical adenopathy by size or morphologic criteria. Stable thyroid nodules. Dedicated thyroid ultrasound would be of benefit for further characterization if not already performed. Narrative 01/11/2023 10:18 AM TETRYL BOILING TUB OPERATOR EXAM: CT NECK SOFT TISSUE WITH IV [...] Chest with IV Contrast (01/11/2023 9:06 AM TETRYL BOILING TUB OPERATOR) Anatomical Region Laterality Modality Chest, Thoracic RST LOS, Tho racic ARZ LOS, Thoracic ARZ LOS, Thoracic FLA LOS N/A Computed Tomography, Compute d Tomography 01/11/2023 8:57 AM TETRYL BOILING TUB OPERATOR Impressions 01/11/2023 10:09 AM TETRYL BOILING TUB OPERATOR Stable exam. Unchanged few pulmonary nodules, including a 3 mm groundglass nodule in the right apex. Narrative 01/11/2023 10:09 AM TETRYL BOILING TUB OPERATOR EXAM: CT CHEST WITH IV CONTRAST COMPARISON: [...] Pelvis with IV Contrast (01/11/2023 9:06 AM TETRYL BOILING TUB OPERATOR) Anatomical Region Laterality Modality Abdomen, Pelvis, Abdominal R ST LOS, Abdominal ARZ LOS, Abdominal FLA LOS N/A Computed Tomograp hy, Computed Tomography 01/11/2023 8:56 AM TETRYL BOILING TUB OPERATOR Impressions 01/11/2023 10:43 AM TETRYL BOILING TUB OPERATOR No CT evidence of metastatic squamous cell carcinoma in the abdomen or pelvis. Narrative 01/11/2023 10:43 AM TETRYL BOILING TUB OPERATOR EXAM: ??CT ABDOMEN PELVIS WITH IV CONTRAST [...] Mc Mcknight M.D., Ph.D. IMG CT P NASIR * Comprehensive Metabolic Panel (01/11/2023 8:05 AM TETRYL BOILING TUB OPERATOR) Potassium, S 3.7 3.6 - 5.2 mmol/L 01/11/2023 9:00 AM TETRYL BOILING TUB OPERATOR DTL Sodium, S 141 135 - 145 mmol/L 01/11/2023 9:00 AM TETRYL BOILING TUB OPERATOR DTL Chloride, S 105 98 - 107 mmol/L 01/11/2023 9:00 AM TETRYL BOILING TUB OPERATOR DTL Bicarbonate, S 26 22 - 29 mmol/L 01/11/2023 9:00 AM TETRYL BOILING TUB OPERATOR DTL Anion Gap 10 7 - 15 01/11/2023 9:00 AM TETRYL BOILING TUB OPERATOR DTL BUN (Blood Urea Nitrogen), S 18 6 - 21 mg/dL 01/11/2023 9:00 AM TETRYL BOILING TUB OPERATOR DTL Creatinine 0.75 0.59 - 1.04 mg/dL 01/11/2023 9:00 AM TETRYL BOILING TUB OPERATOR DTL Estimated GFR (eGFR) 82 >=60 mL/min/BS A 01/11/2023 9:00 AM TETRYL BOILING TUB OPERATOR DTL Comment: Estimated GFR calculated using the 2020 CKD_EPI creatinine equation. Calcium, Total, S 9.6 8.8 - 10.2 mg/dL 01/11/2023 9:00 AM TETRYL BOILING TUB OPERATOR DTL Glucose, S 76 70 - 140 mg/dL 01/11/2023 9:00 AM TETRYL BOILING TUB OPERATOR DTL Protein, Total, S 6.7 6.3 - 7.9 g/dL 01/11/2023 9:00 AM TETRYL BOILING TUB OPERATOR DTL Albumin, S 4.4 3.5 - 5.0 g/dL 01/11/2023 9:00 AM TETRYL BOILING TUB OPERATOR DTL Aspartate Aminotransferase (AST), S 34 8 - 43 U/L 01/11/2023 9:00 AM TETRYL BOILING TUB OPERATOR DTL Alkaline Phosphatase, S 92 35 - 104 U/L 01/11/2023 9:00 AM TETRYL BOILING TUB OPERATOR DTL Alanine Aminotransferase (ALT), S 19 7 - 45 U/L 01/11/2023 9:00 AM TETRYL BOILING TUB OPERATOR DTL Bilirubin, Total, S 0.4 0.0 - 1.2 mg/dL 01/11/2023 9:00 AM TETRYL BOILING TUB OPERATOR DTL Blood (Blood, Venous) 01/11/2023 8:05 AM TETRYL BOILING TUB OPERATOR 01/11/2023 8:38 AM TETRYL BOILING TUB OPERATOR Mc Mcknight M.D., Ph.D. LAB BLOO D ADD-ON [facility] [address] [place] [address], [facility] DTL [facility] [address] [place] [address] * (ABNORMAL) CBC with Differential, Blood (01/11/2023 8:05 AM TETRYL BOILING TUB OPERATOR) Hemoglobin 13.3 11.6 - 15.0 g/dL 01/11/2023 9:22 AM TETRYL BOILING TUB OPERATOR DHPM Hematocrit 40.7 35.5 - 44.9 % 01/11/2023 9:22 AM TETRYL BOILING TUB OPERATOR DHPM Erythrocytes 4.46 3.92 - 5.13 x10(12)/L 01/11/2023 9:22 AM TETRYL BOILING TUB OPERATOR DHPM MCV 91.3 78.2 - 97.9 fL 01/11/2023 9:22 AM TETRYL BOILING TUB OPERATOR DHPM RBC Distrib Width 12.8 12.2 - 16.1 % 01/11/2023 9:22 AM TETRYL BOILING TUB OPERATOR DHPM Platelet Count 217 157 - 371 x10(9)/L 01/11/2023 9:22 AM TETRYL BOILING TUB OPERATOR DHPM Leukocytes 5.9 3.4 - 9.6 x10(9)/L 01/11/2023 9:22 AM TETRYL BOILING TUB OPERATOR DHPM Neutrophils 4.52 1.56 - 6.45 x10(9)/L 01/11/2023 9:22 AM TETRYL BOILING TUB OPERATOR DHPM Lymphocytes 0.75(L) 0.95 - 3.07 x10(9)/L 01/11/2023 9:22 AM TETRYL BOILING TUB OPERATOR DHPM Monocytes 0.45 0.26 - 0.81 x10(9)/L 01/11/2023 9:22 AM TETRYL BOILING TUB OPERATOR DHPM Eosinophils 0.11 0.03 - 0.48 x10(9)/L 01/11/2023 9:22 AM TETRYL BOILING TUB OPERATOR DHPM Basophils 0.03 0.01 - 0.08 x10(9)/L 01/11/2023 9:22 AM TETRYL BOILING TUB OPERATOR DHPM Blood (Blood, Venous) 01/11/2023 8:05 AM TETRYL BOILING TUB OPERATOR 01/11/2023 8:27 AM TETRYL BOILING TUB OPERATOR Mc Mcknight M.D., Ph.D. LAB BLOO D ADD-ON [facility] [address] [place] [address], [facility] [address] [place] [address] documented in this encounter Visit Diagnoses Diagnosis Secondary Malignant Neoplasm Lymph Node (HCC)- Primary Secondary Malignant Neoplasm Lymph Node (HCC) documented in this encounter Care Teams Atmospheric Chemist Relationship Specialty Start Date End Date Elsewhere, Pcp PCP - General Family Medicine 02/01/22 documented as of this encounter
--- OUTSIDE RECORDS SUMMARY | 2023-04-17 11:48 | XMS_ITS | Encounter Summary ---
Author Name Unknown Organization [facility] Address [address] [place] [address] Care Team Providers Care Tuft Machine Operator Name Role Phone Elsewhere, Pcp Primary Care Provider Unavailabl e Reason for Visit * Outpatient (Routine) - Closed Specialty Diagnoses / Procedures Referred By Ryan cronin Referred To Contact Otorhinolaryngology Rachelle Arnold M.D. [address] [place] [phone] [facility] Referral ID Status Reason Start Date Expiration Date Visits Re quested Visits Authorized [id number] Closed 05/25/2022 05/24/2025 1 1 Encounter Details Date Type Department Care Team (Latest Contact Info) Description 06/10/2022 8:00 AM CDT Office Visit Department of Otorhinolaryngology in [place], [place] [address] [place] [phone] Edi Castorena M.D. [address] [place] [phone] Squamous Cell Carcinoma Of Skin Of Scalp [...] afraid of your partner or ex-partner? No 01/24/2022 Within the last year, have y ou been humiliated or emotionally abused in other ways by your partner or ex-partner? Yes Within the last year, have y ou been kicked, hit, slapped, or otherwise physically hurt by your partner or ex-partner? No 01/24/2022 Within the last year, have y ou been raped or forced to have any kind of sexual activity by your partner or ex-partner? No 01/24/2022 Social Connection and Isolat ion Panel [NHANES] Answer Date Recorded In a typical week, how many times do you talk on the phone with family, friends, or neighbors? More than three times a week 01/24/2022 How often do you get togethe r with friends or relatives? Once a week 01/24/2022 How often do you attend [facility] or moravian services? Never 01/24/2022 Do you belong to [...] care, and heating? Not hard at all 01/24/2022 [facility] [place] of Occupat ional Health - Occupational Stress [...] the money to buy more. Never true 01/25/20 Within the past 12 months, t he food you bought just didn't last and you didn't have money to get more. Never true 01/24/2022 PRAPARE - Transportation Answer Date Re corded In the past 12 months, has l ack of transportation kept you from medical appointments or from getting medications? No 01/05 In the past 12 months, has l ack of transportation kept you from meetings, work, or from getting things needed for daily living? No 01/24/2022 Housing Stability Vital Sign Answer Fausto e Recorded In the last 12 months, was t here a time when you were not able to pay the mortgage or rent on time? No 01/24/2022 In the last 12 months, how many places have you lived? 1 01/24/2022 In the last 12 months, was t here a time when you did not have a steady place to sleep or slept in a correction (including now)? No 01/24/2022 Nutrition Answer Date Recorded Nutrition: EVOO Fat Source Yes 01/24 On average, how many serving s of fruits and vegetables do you eat per day (serving size is equal to 1 cup or approximately the size of a tennis ball)? 4-5 01/24/2022 Dental Answer Date Recorded Dental: Regular Dentist Yes 01/25/20 Employment Answer Date Recorded Employment status Retired 01/24/2022 Education Answer Date Recorded What is the highest level of school you have completed or the highest degree you have received? Bachelor's degree (e.g., BA, AB, BS) 01/24/2022 Sex and Gender Information Value Date Recorded Sex Assigned at Female 01/24/2022 7:37 PM INTERNATIONAL AFFAIRS VICE PRESIDENT Gender Identity Female 01/24/2022 7:37 PM INTERNATIONAL AFFAIRS VICE PRESIDENT Sexual Orientation Straight 01/24/2022 7: 37 PM INTERNATIONAL AFFAIRS VICE PRESIDENT documented as of this encounter Progress Notes * Rachelle Arnold M.D. - 06/10/2022 8:00 AM CDT Otolaryngology Progress Note Mrs. Guevara presents to clinic today requesting suture removal from a few areas at the scalp where she underwent scalp reconstruction following resection of an invasive, poorly differentiated, squamous cell carcinoma. She has finished radiation therapy and experienced discomfort and inflammation in the areas where there are a few stitches that remain. Physical exam: There were 3-4 sutures that I was able to identify and remove, which will hopefully provide increased comfort for Mrs. Guevara. We discussed continued application of moisturizing agent to the scalp. I encouraged her to return to ENT as needed if she identifies other sutures that are bothersome or has questions or concerns. documented in this encounter Plan of Treatment Not on file documented as of this encounter Visit Diagnoses Diagnosis Squamous Cell Carcinoma Of Skin Of Scalp And Neck- Primary documented in this encounter Care Teams Tuft Machine Operator Relationship Specialty Start Date End Date Elsewhere, Pcp PCP - General Family Medicine 02/01/22 documented as of this encounter
--- OUTSIDE RECORDS SUMMARY | 2023-04-17 11:48 | XMS_ITS | Encounter Summary ---
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 [address] [place] [phone] [facility] Referral ID Status Reason Start Date Expiration Date Visits Re quested Visits Authorized [id number] Closed 06/10/2022 06/10/2023 1 1 * Outpatient (Routine) - Closed Specialty Diagnoses / Procedures Referred By Contac t Referred To Contact Oncology Farnaz Mccarty APRN, C.N.P. 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 [address] [place] [phone] [facility] Referral ID Status Reason Start Date Expiration Date Visits Re quested Visits Authorized [id number] Closed 06/10/2022 06/10/2023 1 1 Reason for Visit * Outpatient (Routine) - Closed Specialty Diagnoses / Procedures Referred By Ryan cronin Referred To Contact Oncology Kimber Jones M.D. [address] [place] [phone] [facility] Referral ID Status Reason Start Date Expiration Date Visits Re quested Visits Authorized [id number] Closed 02/10/2022 02/09/2025 1 1 Encounter Details Date Type Department Care Team (Late st Contact Info) Description 06/10/2022 10:00 AM CDT Office Visit Department of Oncology in [place], [place] [address] [place] [phone] Farnaz Mccarty APRN, C.N.P. [address] [place] [phone] Squamous Cell Carcinoma Of Skin Of Scalp And Neck (Primary Dx); Secondary Malignant Neoplasm Lymph Node [...] any clubs o r organizations such as scientologist groups, unions, fraternal or athletic groups, or [...] and heating? Not hard at all 01/24/2022 [facility] - [...] money to buy more. Never true 01/25/20 22 Within the past 12 months, t he [...] place to sleep or slept in a longterm (including now)? No 01/24/2022 Nutrition Answer Date [...] Sex Assigned at Female 01/24/2022 7:37 PM STRADDLE BUGGY OPERATOR Gender Identity Female 01/24/2022 7:37 PM STRADDLE BUGGY OPERATOR Sexual Orientation Straight 01/24/2022 7: 37 PM STRADDLE BUGGY OPERATOR documented as of this encounter Last Filed Vital Signs Vital Sign Reading Time Taken Comments Blood Pressure 98/61 06/10/2022 9:45 AM CDT Pulse 76 06/10/2022 9:45 AM CDT Temperature 36.6 ??C (97.9 ??F) 06/10/2022 9:45 AM CD T Respiratory Rate 16 06/10/2022 9:45 AM CDT Oxygen Saturation 100% 06/10/2022 9:45 AM CDT Inhaled Oxygen Concentration - - Weight 62.3 kg (137 lb 5.6 oz) 06/10/2022 9:45 A M CDT Height 162.7 cm (5' 4.06) 06/10/2022 9:45 AM CD T Body Mass Index 23.54 06/10/2022 9:45 AM CDT documented in this encounter Progress Notes * Farnaz Mccarty APRN, C.N.P. 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 Mc Mcknight Primary collaborating provider is Dr. Mc Mcknight HISTORY OF PRESENT ILLNESS: Oncology History Squamous Cell Carcinoma Of Skin Of Scalp And Neck 03/21/2022 - 04/29/2022 Radiation Therapy Radiation Therapy Treatment Details (03/21/2022 - 04/29/2022) Sites: Midline Scalp, Bilateral Head and Neck Technique: Proton Beam Goal: Curative Planned Treatment Start Date: 03/21/2022 Malignant Neoplasm Of Neck Squamous Cell 07/2021 Initial Diagnosis July 2021: Noticed a lesion on the vertex of the scalp. Evaluated by health informatics specialist Dr. Banuelos in [place] and was treated for possible psoriasis. The lesion persisted after 6 weeks. She was then treated with UV phototherapy between September and December of 2021. September 22, 2021---December 17, 2021: Underwent biopsy of the vertex scalp lesion which revealed squamous cell carcinoma. Incisional biopsy of left level 5 lymph node also revealed squamous cell carcinoma. 12/30/2021 Biopsy/Pathology A. Skin, scalp, vertex, excisional biopsy ([id number]; 12/30/2021): Invasive poorly differentiated squamous cell carcinoma, transected at base and lateral edge of the specimen. B. Neck, left, soft tissue, biopsy ([id number]; 01/13/2022): Invasive poorly differentiated squamous cell carcinoma [...] Interval history: Ms. Guevara returns for follow-up. Overall she is doing quite well. She states they removed 3 sutures in ENT today. ECOG performance status is 0. Past Medical/Surgical History: Past Medical History: Diagnosis Date Hyperlipidemia Regurgitation Aortic Past Surgical History: Procedure Laterality Date NECK DISSECTION Bilateral 02/01/2022 Procedure: NECK DISSECTION.; Surgeon: Edi Castorena M.D.; Location: [facility] OR WIDE LOCAL EXCISION Posterior 02/01/2022 Procedure: WIDE LOCAL EXCISION, scalp lesion.; Surgeon: Edi Castorena M.D.; Location: [facility] ROS: As noted above otherwise negative noncontributory I reviewed the Medications, Allergies, Past Medical History, Social History, and Family History. OBJECTIVE VITAL SIGNS: Vitals: 06/10/22 0945 BP: 98/61 BP Location: Left arm Patient Position: Sitting Cuff Size: Regular Pulse: 76 Resp: 16 Temp: 36.6 ??C TempSrc: Tympanic SpO2: 100% Weight: 62.3 kg Height: 162.7 cm Rate your distress: 0 (no distress) PHYSICAL EXAM: General: This is a well-appearing female who appears their stated age in no acute distress. Skin: Examined and significant only for previous surgical incisions. Lymph: No palpable lymphadenopathy. Heart: Examined and normal. Lungs: Examined and normal. ASSESSMENT / PLAN #1 Regionally resected metastatic squamous cell carcinoma of the scalp Mrs. Guevara underwent restaging CT scans today show no evidence of recurrent squamous cell carcinoma. Plan of be to see her back in approximately 3 months' time at which time she will be due for dermatology follow-up as well. With her radiation oncologist today who had ordered a PET scan for July and we will plan to cancel that with her recent scans today. PATIENT EDUCATION Ready to learn, no apparent learning barriers were identified; learning preferences include listening. Explained diagnosis and treatment plan; patient expressed understanding of the content. ADMINISTRATIVE BILLING I personally spent over half of a total 30 minutes face to face with the patient in counseling and discussion and/or coordination of care as described above. 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 Farnaz Mccarty APRN, C.N.P. IMG CT LA OCEDURES * CT Chest with IV Contrast [...] EXAM: CT CHEST WITH IV CONTRAST COMPARISON: [facility] CT chest 06/09/2022. FINDINGS: A 3 mm [...] EXAM: CT CHEST WITH IV CONTRAST COMPARISON: [facility] CT chest 06/09/2022. FINDINGS: A 3 mm [...] indeterminate pulmonary nodules. Farnaz Mccarty APRN, C.N.P. IMG CT LA OCEDURES * CT Neck Soft Tissue with [...] is not significantly changed since 06/09/2022 (series 336; ). Additional bilateral thyroid nodules. Mild spondylotic [...] is not significantly changedsince 06/09/2022 (series 336; ). Additional bilateral thyroid nodules. Mild spondyloticchanges [...] ultrasound. Farnaz Mccarty APRN, C.N.P. IMG CT LA OCEDURES * Comprehensive Metabolic Panel (09/08/2022 3:00 PM CDT) Potassium, S 4.1 3.6 - 5.2 mmol/L 09/08/2022 4:06 PM CDT DTL Sodium, S 142 135 - 145 mmol/L 09/08/2022 4:06 PM CDT DTL Chloride, S 106 98 - 107 mmol/L 09/08/2022 4:06 PM CDT DTL Bicarbonate, S 26 22 - 29 mmol/L 09/08/2022 4:06 PM CDT DTL Anion Gap 10 7 - 15 09/08/2022 4:06 PM CDT DTL BUN (Blood Urea Nitrogen), S 18 6 - 21 mg/dL 09/08/2022 4:06 PM CDT DTL Creatinine 0.68 0.59 - 1.04 mg/dL 09/08/2022 4:06 PM CDT DTL Estimated GFR (eGFR) 90 >=60 mL/min/BS A 09/08/2022 4:06 PM CDT DTL Comment: Estimated GFR calculated using the 2020 CKD_EPI creatinine equation. Calcium, Total, S 9.4 8.8 - 10.2 mg/dL 09/08/2022 4:06 PM CDT DTL Glucose, S 88 70 - 140 mg/dL 09/08/2022 4:06 PM CDT DTL Protein, Total, S 6.6 6.3 - 7.9 g/dL 09/08/2022 4:06 PM CDT DTL Albumin, S 4.4 3.5 - 5.0 g/dL 09/08/2022 4:06 PM CDT DTL Aspartate Aminotransferase (AST), S 28 8 - 43 U/L 09/08/2022 4:06 PM CDT DTL Alkaline Phosphatase, S 98 35 - 104 U/L 09/08/2022 4:06 PM CDT DTL Alanine Aminotransferase (ALT), S 18 7 - 45 U/L 09/08/2022 4:06 PM CDT DTL Bilirubin, Total, S 0.2 <=1.2 mg/dL 09/08/2022 4:06 PM CDT DTL Blood (Blood, Venous) 09/08/2022 3:00 PM CDT 09/08/2022 3:34 PM CDT Dorene Perez APRNNNeyPNey LAB BLOOD ADD-ON [facility] [address] [place] [address], [facility] DTL [facility] [address] [place] [address] * (ABNORMAL) CBC with Differential, Blood (09/08/2022 3:00 PM CDT) Hemoglobin 12.5 11.6 - 15.0 g/dL 09/08/2022 3:37 PM CDT DTL Hematocrit 38.2 35.5 - 44.9 % 09/08/2022 3:37 PM CDT DTL Erythrocytes 4.27 3.92 - 5.13 x10(12)/L 09/08/2022 3:37 PM CDT DTL MCV 89.5 78.2 - 97.9 fL 09/08/2022 3:37 PM CDT DTL RBC Distrib Width 13.2 12.2 - 16.1 % 09/08/2022 3:37 PM CDT DTL Platelet Count 232 157 - 371 x10(9)/L 09/08/2022 3:37 PM CDT DTL Leukocytes 4.0 3.4 - 9.6 x10(9)/L 09/08/2022 3:37 PM CDT DTL Neutrophils 2.92 1.56 - 6.45 x10(9)/L 09/08/2022 3:37 PM CDT DTL Lymphocytes 0.61(L) 0.95 - 3.07 x10(9)/L 09/08/2022 3:37 PM CDT DTL Monocytes 0.36 0.26 - 0.81 x10(9)/L 09/08/2022 3:37 PM CDT DTL Eosinophils 0.09 0.03 - 0.48 x10(9)/L 09/08/2022 3:37 PM CDT DTL Basophils 0.03 0.01 - 0.08 x10(9)/L 09/08/2022 3:37 PM CDT DTL Blood (Blood, Venous) 09/08/2022 3:00 PM CDT 09/08/2022 3:26 PM CDT Farnaz Mccarty APRN C.N.P. 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
--- OUTSIDE RECORDS SUMMARY | 2023-04-17 11:48 | XMS_ITS | Encounter Summary ---
Author Name Unknown Organization [facility] Address [address] [place] [address] Care Team Providers Care Brand Marketing Coordinator Name Role Phone Elsewhere, Pcp Primary Care Provider Unavailabl e Encounter Details Date Type Department Care Team (Late st Contact Info) Description 07/07/2022 Orders Only Department of Otorhinolaryngology in [place], [place] [address] [place] [phone] Roseanne Eric M.D. [address] [place] [phone] Social History Tobacco Use Types Packs/Day Years [...] and heating? Not hard at all 01/24/2022 [facility] [...] place to sleep or slept in a usp (including now)? No 01/24/2022 Nutrition Answer Date [...] Sex Assigned at Female 01/24/2022 7:37 PM SHED WORKERS SUPERVISOR Gender Identity Female 01/24/2022 7:37 PM SHED WORKERS SUPERVISOR Sexual Orientation Straight 01/24/2022 7: 37 PM SHED WORKERS SUPERVISOR documented as of this encounter Plan of Treatment Not on file documented as of this encounter Visit Diagnoses Not on filedocumented in this encounter Care Teams Brand Marketing Coordinator Relationship Specialty Start Date End Date Elsewhere, Pcp PCP - General Family Medicine 02/01/22 documented as of this encounter
--- OUTSIDE RECORDS SUMMARY | 2023-04-17 11:48 | XMS_ITS | Encounter Summary ---
Author Name Unknown Organization [facility] Address [address] [place] [address] Care Team Providers Care Community Affairs Manager Name Role Phone Elsewhere, Pcp Primary Care Provider Unavailabl e Reason for Visit * Reason Onset Date Comments Pre-visit Intake 08/05/2022 Encounter Details Date Type Department Care Team (Latest Contact Info) Description 08/05/2022 2:30 PM CDT Clinical Communication Virtual Review in [place], [place] [address] [place], [place] [phone] Pre-visit Intake Social History Tobacco Use Types [...] often do you attend chur ch or yazdanism services? Never 01/24/2022 Do you belong to any clubs o r organizations such as synagogue groups, unions, fraternal or athletic groups, or [...] living situation today? I have a [facility] place to live 09/02/2022 Education Answer Date Recorded What is the highest level of school you have completed or the highest degree you have received? Bachelor's degree (e.g., BA, AB, BS) 01/24/2022 Sex and Gender Information Value Date Recorded Sex Assigned at Female 01/24/2022 7:37 PM DIRECTOR OF HEALTH CARE MARKETING Gender Identity Female 01/24/2022 7:37 PM DIRECTOR OF HEALTH CARE MARKETING Sexual Orientation Straight 01/24/2022 7: 37 PM DIRECTOR OF HEALTH CARE MARKETING documented as of this encounter Plan of Treatment Not on file documented as of this encounter Visit Diagnoses Not on filedocumented in this encounter Care Teams Community Affairs Manager Relationship Specialty Start Date End Date Elsewhere, Pcp PCP - General Family Medicine 02/01/22 documented as of this encounter
--- OUTSIDE RECORDS SUMMARY | 2023-04-17 11:48 | XMS_ITS | Encounter Summary ---
Author Name Unknown Organization [facility] Address [address] [place] [address] Care Team Providers Care Supervisor Advertising Dispatch Clerks Name Role Phone Elsewhere, Pcp Primary Care Provider Unavailabl e Reason for Referral * MRI/CAT/PET Scan (Routine) - Closed Specialty Diagnoses / Procedures Referred By Contac t Referred To Contact Radiology Diagnoses Squamous Cell Carcinoma Of Skin Of Scalp And Neck Procedures MR Brain without and with IV Contrast MR Brain without IV Contrast FL MRI BRAIN WO [facility]TRST HC MRI BRAIN WO CNTRST Tammie Hooks M.D., Ph.D. [address] [place] [address] [facility] Referral ID Status Reason Start Date Expiration Date Visits Re quested Visits Authorized [id number] Closed 08/23/2022 08/23/2023 1 1 * Outpatient (Routine) - Closed Specialty Diagnoses / Procedures Referred By Contac t Referred To Contact Radiation Oncology Tammie Hooks M.D., Ph.D. [address] [place] [phone] Tammie Hooks M.D., Ph.D. [address] [place] [address] Referral ID Status Reason Start Date Expiration Date Visits Re quested Visits Authorized [id number] Closed 08/22/2022 08/21/2025 1 1 Scheduling Instructions Please schedule at 1045 Reason for Visit * Outpatient (Routine) - Closed Specialty Diagnoses / Procedures Referred By Ryan t Referred To Contact Radiation Oncology Tammie Hooks M.D., Ph.D. [address] [place] [phone] Tammie Hooks M.D., Ph.D. [address] [place] [phone] Referral ID Status Reason Start Date Expiration Date Visits Re quested Visits Authorized [id number] Closed 08/22/2022 08/21/2025 1 1 Encounter Details Date Type Department Care Team (Latest Contact Info) Description 08/23/2022 10:25 AM CDT - 08/23/2022 1:15 PM CDT Hospital Encounter Department of Radiation Oncology in [place], [place] [address] [place] [phone] Tammie Hooks M.D., Ph.D. [address] [place] [phone] Squamous Cell Carcinoma Of Skin Of Scalp [...] afraid of your partner or ex-partner? No 08/01/2022 Within the last year, have y ou been humiliated or emotionally abused in other ways by your partner or ex-partner? No Within the last year, have y ou been kicked, hit, slapped, or otherwise physically hurt by your partner or ex-partner? No 08/01/2022 Within the last year, have y ou been raped or forced to have any kind of sexual activity by your partner or ex-partner? No 08/01/2022 Social Connection and Isolat ion Panel [NHANES] Answer Date Recorded In a typical week, how many times do you talk on the phone with family, friends, or neighbors? More than three times a week 01/24/2022 How often do you get togethe r with friends or relatives? Once a week 01/24/2022 How often do you attend chur or baptist services? Never 01/24/2022 Do you belong to any clubs o r organizations such as mandaen groups, unions, fraternal or athletic groups, or [...] care, and heating? Not hard at all 08/01/2022 [facility] - Occupational [...] the money to buy more. Never true 08/02/19 23 Within the past 12 months, t he food you bought just didn't last and you didn't have money to get more. Never true 08/01/2022 PRAPARE - Transportation Answer Date Re corded In the past 12 months, has l ack of transportation kept you from medical appointments or from getting medications? No 07/05 In the past 12 months, has l ack of transportation kept you from meetings, work, or from getting things needed for daily living? No 08/01/2022 Nutrition Answer Date Recorded Nutrition: EVOO Fat [...] your living situation today? I have a [facility] place to live 08/01/2022 Education Answer Date Recorded What is the highest level of school you have completed or the highest degree you have received? Bachelor's degree (e.g., BA, AB, BS) 01/24/2022 Sex and Gender Information Value Date Recorded Sex Assigned at Female 01/24/2022 7:37 PM GREEN CHAIN PULLER Gender Identity Female 01/24/2022 7:37 PM GREEN CHAIN PULLER Sexual Orientation Straight 01/24/2022 7: 37 PM GREEN CHAIN PULLER documented as of this encounter Last Filed Vital Signs Vital Sign Reading Time Taken Comments Blood Pressure - - Pulse - - Temperature - - Respiratory Rate - - Oxygen Saturation - - Inhaled Oxygen Concentration - - Weight 61.9 kg (136 lb 7.4 oz) 08/23/2022 10:37 AM CDT Height - - Body Mass Index 23.38 06/10/2022 9:45 AM CDT documented in this encounter Medications at [...] 1 scoop every morning with cereal 0 brimonidine (ALPHAGAN) 0.2 % ophthalmic solution 1 drop 2 (two) times a day. 0 09/05/2022 nystatin (MYCOSTATIN) 100,000 unit/gram cream Apply 1 application topically 2 (two) times a day as needed. To dry spot on the base of spine 0 12/22/2021 01/04/2023 documented as of this encounter Progress Notes * Tammie Hooks M.D., Ph.D. - 08/23/2022 10:45 AM CDT SUBJECTIVE REQUESTING PROVIDER Tammie Hooks M.D., Ph.D. CHIEF COMPLAINT/REASON FOR VISIT The encounter diagnosis was Squamous Cell Carcinoma Of Skin Of Scalp And Neck. INTERVAL HISTORY: Mrs. Veronica Guevara is a 77 y.o. female who returns to radiation oncology clinic today for follow up. She message yesterday as there is a small area on scalp that is still not healed and intermittentlyitchy and tender, that she states feels like it felt when she was diagnosed. Otherwise she is doing great. She ordered a wig. Eating well, has lost 9 lbs intentionally. No painwith eating. Continues to have tenderness behind left ear and erythema/tenderness on left neck/scv area. OBJECTIVE PHYSICAL EXAM General: Pleasant woman in no apparent distress Skin: Top of scalp has healed completely other than one small area with small area of pus. Looks similar to where stitch granulomas previously were, but unable to find stitch when using stitch removal kit. The area is easily irritated and bleeds with manipulation. HEENT: CN II-XII intact. Restricted range of movement in shoulders. No palpable lymph nodes, no lesions on transoral exam and mucosa has healed. Wax in left ear again but otherwise membranes clear bilaterally. ASSESSMENT / PLAN #Squamous cell carcinoma of the scalp 76 y.o. woman with [id number] SqCC of the scalp vertex, 3.5 cm primary, 1.1 cm DOI, LVI+, PNI-, margin-, 2/26 LN on left with XIN, 1/3 LN on right XIN-. She completed 60 Gy to scalp and 60 Gy to bilateral necks (with 66 Gy/30 fx to two gross nodes), 54 Gy/ 30 fx to elective oumou radiation. Will add an MRI head for better delineation of soft tissue to September 09. She is also seeing Derm that day so if biopsy is indicated they can biopsy at that time, although trauma to this area will be very slow to heal in the future. I think it looks more like slow healing tissue, and we discussed this area with be very slow to heal with hx of secondary intention healing followed by radiation. EDUCATION Ready to learn, no apparent learning barriers were identified; learning preferences include listening. Explained diagnosis and treatment plan; patient expressed understanding of the content. I personally spent 12 minutes in care of the patient today. Time includes both [id number]-qs-face [id number]-ehoy patient care. Signed by: Tammie Hooks MD PhD Ordering Box Operator Flight Test Engineer Radiation Oncology 08/23/22 12:39 PM CDT Pager: [phone] documented in this encounter Plan of Treatment Scheduled Referrals Name Type Priority Associated Diagnoses Order Schedule Radiation Oncology office visit (clinic) Outpatient Referral Routine Once for 1 Occurrences starting 08/23/2022 until 08/23/2022 documented as of this encounter Results * MR Brain without and with IV Contrast (01/11/2023 10:25 AM GREEN CHAIN PULLER) Anatomical Region Laterality Modality Head, Brain, Neuroradiology [facility], Neuroradiology [facility], Neuroradiology [facility] N/A Magnetic Resonance 01/11/2023 10:3 4 AM GREEN CHAIN PULLER Impressions 01/11/2023 11:24 AM GREEN CHAIN PULLER 1. Approximately 0.8cm flat indeterminate left posterior [...] also warrants follow-up. Narrative 01/11/2023 11:24 AM GREEN CHAIN PULLER EXAM: MR BRAIN WITHOUT AND WITH IV [...] also warrants follow-up. Tammie Hooks M.D., Ph.D. [facility] [place] [facility] documented in this encounter Visit Diagnoses Diagnosis Squamous Cell Carcinoma Of Skin Of Scalp And Neck- Primary Squamous Cell Carcinoma Of Skin Of Scalp And Neck documented in this encounter Care Teams Supervisor Advertising Dispatch Clerks Relationship Specialty Start Date End Date Elsewhere, Pcp PCP - General Family Medicine 02/01/22 documented as of this encounter
--- OUTSIDE RECORDS SUMMARY | 2023-04-17 11:48 | XMS_ITS | Encounter Summary ---
Author Name Unknown Organization [facility] Address [address] [place] [address] Care Team Providers Care Manager Family Name Role Phone Elsewhere, Pcp Primary Care Provider Unavailabl e Reason for Visit * Physical Therapy (Routine) - Authorized Specialty Diagnoses / Procedures Referred By Ryan cronin Referred To Contact Diagnoses Pain Shoulder Left Pain Shoulder Right Limitation Of Motion Shoulder Joint Left Limitation Of Motion Shoulder Joint Right Procedures PT Ongoing treatment Adeola Nunez M.D. [address] [place] [address] [facility] Referral ID Status Reason Start Date Expiration Date V isits Requested Visits Authorized [id number] Authorized 04/26/2022 04/26/2023 99 99 Encounter Details Date Type Department Care Team (Latest Contact Info) Description 08/08/2022 2:00 PM CDT Clinical Support Department of Physical Medicine and Rehabilitation in [place], [place] [address] [place] [phone] Adeola Nunez M.D. [address] [place] [address] Jennifer Novoa P.T., CLT-HAM [address] [place] [phone] Pain Shoulder Left; Pain Shoulder Right; Limitation Of Motion Shoulder Joint Left; Limitation Of Motion Shoulder Joint Right Social History Tobacco Use Types Packs/Day Years [...] often do you attend chur ch or latter day services? Never 01/24/2022 Do you belong to any clubs o r organizations such as samaritan groups, unions, fraternal or athletic groups, or [...] and heating? Not hard at all 08/01/2022 [facility] - [...] money to buy more. Never true 08/02/19 Within the past 12 months, t he [...] living situation today? I have a [facility] place to live 08/01/2022 Education Answer Date Recorded What is the highest level of school you have completed or the highest degree you have received? Bachelor's degree (e.g., BA, AB, BS) 01/24/2022 Sex and Gender Information Value Date Recorded Sex Assigned at Female 01/24/2022 7:37 PM TUMBLING INSTRUCTOR Gender Identity Female 01/24/2022 7:37 PM TUMBLING INSTRUCTOR Sexual Orientation Straight 01/24/2022 7: 37 PM TUMBLING INSTRUCTOR documented as of this encounter Progress Notes * Jennifer Novoa P.T., CLT-HAM - 08/08/2022 2:00 PM CDT Physical Therapy Cancer Rehabilitation Outpatient Treatment Patient's Name: Veronica Guevara Referring Provider: Adeola Nunez M.D. Reason for referral: post-op bilateral shoulder pain and weakness, limited neck motion, neck lymphedema Veronica Guevara is a 77 y.o. female from [place], [place], seen for 3 month follow-up. SUBJECTIVE Patient reports her bilateral shoulders function has improved, no associated pain, now able to liftarms up into cupboards. Patient's main concern today is her neck tightness and pain which has worsened after completion of radiation 3 months ago, stiffness/pain worse in the morning and with driving( is legally blind). Patient is also dealing with right thumb pain, local X-rays taken, is seeing a local OT. Patient underwent one massage through integrative medicine, next appt unable to bescheduled until September, therefore, patient found a local massage therapist and will continue to work with her. 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 Proton beam radiation (66 Gy, 30 fractions) completed on 04/29/22. Social: Patient is (57 yrs), accompanied by , Andre, today who remained in the lobby who has been helping with chores/activities during patient's recovery. OBJECTIVE General: Right-handed, thin physique. Posture: forward head and rounded shoulder posturing, increased thoracic kyphosis, Bilateral (R>L) shoulder depression. Scapular posturing improved. ROM: Jaw: 45 (initial 50) mm opening Neck: flexion 40??, extension 25?? (initial 40??), rotation 60??/50?? (initial 50??) Active Shoulder motion (stable): R/L Flexion 150/145 (initial 95/105) degrees; Abduction able to touch thumbs overhead. Passive flexion supine R/L: 150/145 (initial 145) degrees. Strength: interval improvement in scapular stabilizer strength, today, able to perform full excursion of both shoulder shrug and scapular retraction, and no scapular winging with overhead shoulder motion. Neck: nominal neck lymphedema superior to adhered incision line, resolving nicely TREATMENT Home program Review: >Neck ROM: rotation with trunk rotation with hands in prayer position >Neck Lymphedema: no intervention indicated >*Neck Tightness/Fibrosis (new): re-start compression: Jobst fascioplasty (soft abreu/orange combo foam pad) to reduce dermal fibrosis. Place ABD pad across scalp to protect open wound. Patient can-wear 10-15 min to 22 hrs/day over the next 3-6 months as needed to address skin/soft tissue fibrosis. >Bilateral shoulder range of motion: -Supine shoulder flexion and pectoral stretching with use of pillow under head due to increased thoracic kyphosis, adding trunk rotation with knees in hook- lying position. -Doorway pectoral stretch -Overhead van exercise (hold secondary to right hand/thumb pain) >Bilateral Shoulder /Scapular Stabilization (reviewed/advanced): 3-5 reps, 1-3 sets, daily -Active Scapular Retraction: straight back. -Shoulder Shrugs: 1) straight up, then 2) up and back in diagonal adding scapular retraction -Resistance band (hold secondary to right hand/thumb pain): 1) Standing row, 2) Shoulder ER Questions answered. Patient and , Andre, verbalized understanding and appreciative of intervention. 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 Patient has been very compliant with her home exercises. Patient's main concern today is new onset of neck muscular tightness in the setting of radiation fibrosis. Treatment Plan: Patient encouraged to contact therapist if future questions. Goals met. Patient to continue with massage therapy, also seeing local OT for right thumb pain. Jennifer Novoa P.T., TWAN-HAM Start of Plan of Care: 04/08/22 Total Visit Count: 4 Number of Visits: up to 5 visits Re-cert Date: 11/06/22 Plan of Care: -Education on anatomy and physiology of shoulder -Instruction in a home exercise program including neck, and shoulder exercises (range of motion, and scapular stabilization) -Instruction in compression and use of fibrolytic chip foam pads to reduce neck lymphedema/fibrosis Lymphedema PT Goals Goal #1: Patient independent in a home exercise program and self-management strategies. Goal met Goal #2: Patient will regain functional, active pain free shoulder range of motion and function. Goal met Rehab Diagnosis: 1. Pain Shoulder Left 2. Pain Shoulder Right 3. Limitation Of Motion Shoulder Joint Left 4. Limitation Of Motion Shoulder Joint Right Payor: MEDICARE / Plan: MEDICARE A AND B / Product Type: Medicare / PT: Time Spent with Patient Therapeutic Interventions Therapeutic Activity (min): 15 min Therapeutic Exercise (min): 15 min Time Tracking Total Timed Units (min): 30 min Total Treatment Time (min): 30 min documented in this encounter Plan of Treatment Not on file documented as of this encounter Visit Diagnoses Diagnosis Pain Shoulder Left Pain Shoulder Right Limitation Of Motion Shoulder Joint Left Limitation Of Motion Shoulder Joint Right documented in this encounter Care Teams Manager Family Relationship Specialty Start Date End Date Elsewhere, Pcp PCP - General Family Medicine 02/01/22 documented as of this encounter
--- OUTSIDE RECORDS SUMMARY | 2023-04-17 11:48 | XMS_ITS | Encounter Summary ---
Author Name Unknown Organization [facility] Address [address] [place] [id number] Care Team Providers Care Field Manager Name Role Phone Elsewhere, Pcp Primary Care Provider Unavailabl e Reason for Referral * Outpatient (Routine) - Closed Specialty Diagnoses / Procedures Referred By Ryan cronin Referred To Contact Radiation Oncology Tammie Hooks M.D., Ph.D. [address] [place] [phone] Tammie Hooks M.D., Ph.D. [address] [place] [phone] Referral ID Status Reason Start Date Expiration Date Visits Re quested Visits Authorized [id number] Closed 08/22/2022 08/21/2025 1 1 Scheduling Instructions Please schedule at 1045 Encounter Details Date Type Department Care Team (Late st Contact Info) Description 08/22/2022 Orders Only Department of Radiation Oncology in [place], [place] [address] [place] [phone] Renea Arango S, R.N. Social History Tobacco [...] often do you attend chur ch or scientologist services? Never 01/24/2022 Do you belong to any clubs o r organizations such as mandaeism groups, unions, fraternal or athletic groups, or [...] and heating? Not hard at all 09/02/2022 [facility] Occupat ional Health - Occupational Stress [...] your living situation today? I have a [facility] place to live 09/02/2022 Education Answer Date Recorded What is the highest level of school you have completed or the highest degree you have received? Bachelor's degree (e.g., BA, AB, BS) 01/24/2022 Sex and Gender Information Value Date Recorded Sex Assigned at Female 01/24/2022 7:37 PM HOME COMPANION Gender Identity Female 01/24/2022 7:37 PM HOME COMPANION Sexual Orientation Straight 01/24/2022 7: 37 PM HOME COMPANION documented as of this encounter Plan of Treatment Scheduled Referrals Name Type Priority Associated Diagnoses Orde r Schedule Radiation Oncology office visit (clinic) Outpatient Referral Routine Expected: 08/23/2022 (Approximate), Expires: 11/23/2023 documented as of this encounter Visit Diagnoses Not on filedocumented in this encounter Care Teams Field Manager Relationship Specialty Start Date End Date Elsewhere, Pcp PCP - General Family Medicine 02/01/22 documented as of this encounter
--- OUTSIDE RECORDS SUMMARY | 2023-04-17 11:48 | XMS_ITS | Encounter Summary ---
Author Name Unknown Organization [facility] Address [address] [place] [address] Care Team Providers Care Manager Hardware Name Role Phone Elsewhere, Pcp Primary Care Provider Unavailabl e Reason for Referral * Outpatient (Routine) - Authorized Specialty Diagnoses / Procedures Referred By Contac t Referred To Contact Diagnoses Pain Shoulder Left Pain Shoulder Right Pain Myofascial Asthenia Procedures [facility] Massage Therapy [address] [facility] Elisha [address] [place] [address] [facility] Referral ID Status Reason Start Date Expiration Date V isits Requested Visits Authorized [id number] Authorized 06/14/2022 06/14/2023 11 11 Reason for Visit * Outpatient (Routine) - Closed Specialty Diagnoses / Procedures Referred By Contac t Referred To Contact Diagnoses Pain Shoulder Left Pain Shoulder Right Pain Myofascial Asthenia Procedures [facility] Massage Therapy Adeola Nunez M.D. [address] [place] [phone] [facility] Referral ID Status Reason Start Date Expiration Date Visits Re quested Visits Authorized [id number] Closed 04/07/2022 04/07/2023 1 1 Encounter Details Date Type Department Care Team ([facility] st Contact Info) Description 06/14/2022 10:45 AM CDT Clinical Support Integrative Medicine and Health in [place], [place] [address] [place] [phone] Adeola Nunez M.D. [address] [place] [phone] Simona Faria [address] [place] [address] Pain Shoulder Left; Pain Shoulder Right; Pain Myofascial; Asthenia Social History Tobacco Use Types Packs/Day Years [...] any clubs o r organizations such as sabianism groups, unions, fraternal or athletic groups, or [...] and heating? Not hard at all 01/24/2022 [facility]at ional [facility] [...] place to sleep or slept in a fdc (including now)? No 01/24/2022 Nutrition Answer Date [...] Sex Assigned at Female 01/24/2022 7:37 PM WHEELAGE CLERK Gender Identity Female 01/24/2022 7:37 PM WHEELAGE CLERK Sexual Orientation Straight 01/24/2022 7: 37 PM WHEELAGE CLERK documented as of this encounter Progress Notes * Jose Luisarlinabranjose cruzSimona Cassie - 06/14/2022 10:45 AM CDT 06/14/22 1200 [facility] Therapy Therapy Provided Massage Therapy Seen By Massage Therapist Consult Purpose Integrative pain management Pre-Assessment [facility] Treatment Previously Used No Integrative Treatment Primary site Whole body (excluding abdomen, head, and healing incisions/ red radiations sites (neck, occiput)) Primary Technique Gentle tissue mobilization;Malay massage;Trigger point therapy;Lymphatic massage Position used Supine;Prone Massage Pressure Mild;Mild to moderate Treatment Status Treatment Completed Treatment Start Time 1040 Treatment Stop Time 1145 Interruption (min) 10 (new patient consult) Treatment Length (min) 65 SUBJECTIVE Referral Veronica Guevara is a 76 y.o. female is being consulted for massage therapy. Patient referred for massage therapy by Adeola Nunez MD [phone] Supervised by: Sarabjit Calderon MD [phone] Patient main concerns are Complaints: fatigue, pain, and tension. History of Present Illness Veronica Guevara was seen in the outpatient setting. The pertinent portions of the patient's history were reviewed in the EMR including current medications, allergies, past medical/surgical/social history. OBJECTIVE Mrs. 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 She underwent bilateral neck lymph node dissection and points out some swelling above her right neck incision which is still pink and healing. She also points out radiation sites that arestill in the process of healing. She finished radiation 04/29/22. She reports pain across the top ofher shoulders and down into her trapezius. She is familiar with massage and would like to utilize for overall wellness, lymphatic support, and tension release while she is recovering from surgery andradiation. ASSESSMENT / PLAN Therapy Indication(s): Complaints: Pain shoulder left, pain shoulder right, pain myofascial, asthenia . Products Used: Jojoba, Biotone Advanced Therapy Massage Lotion, and Biotone Herbal Select Foot Lotion, Jojoba Oil Precautions: lymphedema neck; cervical node bilateral neck dissection; healing neck incisions; healing radiation sites occiput/scalp Narrative Assessment: Started patient prone for light supportive lymphatic massage, followed by light to moderate massage to entire back down into gluteals and along shoulders address pain and tension. Upon palpation, moderate tension noted of the bilateral upper/middle/lower trapezius, levators, thoracic paraspinals, sacroiliac joints. Transitioned patient supine for massage to the bilateral legs, feet, arms, hands to address overall body fatigue. Continued with gentle massage and lymphatic massage to neck and chest, avoiding massage directly over incision sites. Malay massage, friction, trigger point therapy, and gentle mobilization provided tension release particularly of the bilateral trapezius, levators, paraspinals. Post-therapy, patient verbalizes overall feeling of improvement and expresses gratitude for today's visit. We discussed moving forward as incisions and radiation site heal, we can incorporate gentle scar tissue release. Recommendations Given to Patient: Recommendations: self-massage techniques. Patient verbalized understanding of recommendations. Patient Education: Learning Assessment Questions Primary Learner Name: Veronica Relationship: Patient Does the primary learner have any barriers to learning?: No Barriers What is the preferred language of the primary learner for medical teaching?: Indonesian Is an mine safety manager required?: No How does the primary learner prefer to learn new concepts?: Listening, Reading, Demonstration / Seeing Relationship: Patient Is an mine safety manager required?: No Patient has been informed that not all insurance companies cover massage therapy treatments, patient verbalized understanding. The therapy attendance policy has been discussed with the patient. The patient has been made aware that due to high demand, massage therapy appointments are not always available in the time frame or at the rate of frequency recommended to the patient. To locate a massage therapist in the community, patient may refer to the following resources: www.ncbtmb.org and www.s4om.org Patient Centered Plan of Care: The following plan of care, goals and recommendations have been discussed with the patient. The patient has been made aware that the purpose of this therapy is to make progress toward stated goals, and achievement of goals or therapeutic plateau will precipitate a change in type or frequency therapeutic intervention or dismissal from this program with recommendations for availing massage therapy in his/her community. This is therapy session 1 of expected 12 therapy sessions. Frequency of 2X/month or as schedule allows. documented in this encounter Plan of Treatment Scheduled Orders Name Type Priority Associated Diagnoses Orde r Schedule [facility] Massage Therapy Procedures Routine Pain Shoulder Left Pain Shoulder Right Pain Myofascial Asthenia 11 Occurrences starting 06/14/2022 until 09/14/2023 documented as of this encounter Visit Diagnoses Diagnosis Pain Shoulder Left Pain Shoulder Right Pain Myofascial Asthenia documented in this encounter Care Teams Manager Hardware Relationship Specialty Start Date End Date Elsewhere, Pcp PCP - General Family Medicine 02/01/22 documented as of this encounter
--- OUTSIDE RECORDS SUMMARY | 2023-04-17 11:48 | XMS_ITS | Encounter Summary ---
Author Name Unknown Organization [facility] Address [address] [place] [address] Care Team Providers Care Psychological Operations Specialist Name Role Phone Elsewhere, Pcp Primary Care Provider Unavailabl e Reason for Referral * Outpatient (Routine) - Authorized Specialty Diagnoses / Procedures Referred By Ryan t Referred To Contact Diagnoses Cerumen Impacted Bilateral Procedures ENT Ear wax removal Roseanne Eric M.D. [address] [place] [address] [facility] Referral ID Status Reason Start Date Expiration Date V isits Requested Visits Authorized [id number] Authorized 07/20/2022 07/20/2023 1 1 Encounter Details Date Type Department Care Team (Latest Contact Info) Description 07/20/2022 Orders Only Department of Otorhinolaryngology in [place], [place] [address] [place] [phone] Roseanne Eric M.D. [address] [place] [phone] Cerumen Impacted Bilateral (Primary Dx) Social History Tobacco Use [...] often do you attend chur ch or episcopal services? Never 01/24/2022 Do you belong to [...] and heating? Not hard at all 01/24/2022 [facility] of Occupat ional Health - Occupational Stress [...] Sex Assigned at Female 01/24/2022 7:37 PM PROJECTION CAMERA OPERATOR Gender Identity Female 01/24/2022 7:37 PM PROJECTION CAMERA OPERATOR Sexual Orientation Straight 01/24/2022 7: 37 PM PROJECTION CAMERA OPERATOR documented as of this encounter Plan of Treatment Not on file documented as of this encounter Visit Diagnoses Diagnosis Cerumen Impacted Bilateral- Primary documented in this encounter Care Teams Psychological Operations Specialist Relationship Specialty Start Date End Date Elsewhere, Pcp PCP - General Family Medicine 02/01/22 documented as of this encounter
--- OUTSIDE RECORDS SUMMARY | 2023-04-17 11:48 | XMS_ITS | Encounter Summary ---
Author Name Unknown Organization [facility] Address [address] [place] [address] Care Team Providers Care Graduate Student Instructor Name Role Phone Elsewhere, Pcp Primary Care Provider Unavailabl e Encounter Details Date Type Department Care Team (Latest Contact Info) Description 09/05/2022 8:15 AM CDT Clinical Communication Virtual Review in [place], [place] [address] [place], [place] [phone] Social History Tobacco Use Types Packs/Day Years [...] often do you attend chur ch or presybeterian services? Never 01/24/2022 Do you belong to [...] and heating? Not hard at all 09/02/2022 [facility]ational Stress Questionnaire Answer Date [...] your living situation today? I have a [facility] place to live 09/02/2022 Education Answer Date Recorded What is the highest level of school you have completed or the highest degree you have received? Bachelor's degree (e.g., BA, AB, BS) 01/24/2022 Sex and Gender Information Value Date Recorded Sex Assigned at Female 01/24/2022 7:37 PM DEMAND MANAGER Gender Identity Female 01/24/2022 7:37 PM DEMAND MANAGER Sexual Orientation Straight 01/24/2022 7: 37 PM DEMAND MANAGER documented as of this encounter Plan of Treatment Not on file documented as of this encounter Visit Diagnoses Not on filedocumented in this encounter Care Teams Graduate Student Instructor Relationship Specialty Start Date End Date Elsewhere, Pcp PCP - General Family Medicine 02/01/22 documented as of this encounter
--- OUTSIDE RECORDS SUMMARY | 2023-04-17 11:48 | XMS_ITS | Encounter Summary ---
Author Name Unknown Organization [facility] Address [address] [place] [address] Care Team Providers Care Land Leases And Rentals Manager Name Role Phone Elsewhere, Pcp Primary Care Provider Unavailabl e Reason for Visit * Outpatient (Routine) - Authorized Specialty Diagnoses / Procedures Referred By Ryan cronin Referred To Contact Diagnoses Pain Shoulder Left Pain Shoulder Right Pain Myofascial Asthenia Procedures [facility] Massage Therapy Rst [facility] Elisha [address] [place] [address] [facility] Referral ID Status Reason Start Date Expiration Date V isits Requested Visits Authorized [id number] Authorized 06/14/2022 06/14/2023 11 11 Encounter Details Date Type Department Care Team (Latest Contact Info) Description 09/05/2022 2:30 PM CDT Clinical Support [facility]ative [facility] and [facility] in [place], [place] [address] [place] [phone] Yesenia Calvin [address] [place] [phone] Pain Shoulder Left; Pain Shoulder Right; Pain [...] How often do you attend chur or caodaism services? Never 01/24/2022 Do you belong to any clubs o r organizations such as evangelical groups, unions, fraternal or athletic groups, or [...] and heating? Not hard at all 09/02/2022 [facility] of Occupat ional Health - [...] your living situation today? I have a [facility] place to live 09/02/2022 Education Answer Date Recorded What is the highest level of school you have completed or the highest degree you have received? Bachelor's degree (e.g., BA, AB, BS) 01/24/2022 Sex and Gender Information Value Date Recorded Sex Assigned at Female 01/24/2022 7:37 PM SOAP GRINDER Gender Identity Female 01/24/2022 7:37 PM SOAP GRINDER Sexual Orientation Straight 01/24/2022 7: 37 PM SOAP GRINDER documented as of this encounter Progress Notes * Yesenia Calvin - 09/05/2022 2:30 PM CDT SUBJECTIVE Referral Veronica Guevara is a 77 y.o. female is being consulted for massage therapy. Patient referred for massage therapy by Adeola Nunez MD, [phone] Supervised by: [place] [phone] Patient main concerns are Complaints: fatigue, pain, tension, and neck pain. History of Present Illness Veronica Guevara was [...] andradiation. ASSESSMENT / PLAN Therapy Indication(s): Complaints: fatigue, pain, tension, and neck pain. Products Used: Jojoba and Lavender Essential Oil Precautions: at risk for lymphedema and history of cancer, lymphedema neck; cervical node bilateralneck dissection; healing neck incisions; healing radiation sites [...] chest, avoiding massage directly over incision sites. Cuban massage, friction, trigger point therapy, and gentle mobilization provided tension release particularly of the bilateral trapezius, levators, paraspinals. Post-therapy, patient verbalizes overall feeling of improvement and expresses gratitude for today's visit. We discussed moving forward as incisions and radiation site heal, we can incorporate gentle scar tissue release. Recommendations Given to Patient: Recommendations: stretching and increased hydration . Patient verbalized understanding of recommendations. Patient Education: Learning Assessment Questions Primary Learner Name: Veronica Relationship: Patient Does the primary learner have any barriers to learning?: No Barriers What is the preferred language of the primary learner for medical teaching?: Wolof Is an mold engraver required?: No How does the primary learner prefer to learn new concepts?: Listening, Reading, Demonstration / Seeing Relationship: Patient Is an mold engraver required?: No Patient has been informed that [...] for availing massage therapy in his/her community. Total time spent with patient: Consult Time: 5 minutes Therapy Time: 55 minutes This is therapy session 2 of expected 12 therapy sessions. Frequency of 1 - 2x/month or as scheduleallows. documented in this encounter Plan of Treatment Not on file documented as of this encounter Visit Diagnoses Diagnosis Pain Shoulder Left Pain Shoulder Right Pain Myofascial Asthenia documented in this encounter Care Teams Land Leases And Rentals Manager Relationship Specialty Start Date End Date Elsewhere, Pcp PCP - General Family Medicine 02/01/22 documented as of this encounter
--- OUTSIDE RECORDS SUMMARY | 2023-04-17 11:48 | XMS_ITS | Encounter Summary ---
Author Name Unknown Organization [facility] Address [address] [place] [address] Care Team Providers Care Sensor Technician Name Role Phone Elsewhere, Pcp Primary Care Provider Unavailabl e Encounter Details Date Type Department Care Team (Latest Contact Info) Description 09/08/2022 2:50 PM CDT - 09/08/2022 11:59 PM CDT Hospital Encounter Department of Laboratory Medicine and Pathology, [facility], in [place], [place] [address] [place] [address] Farnaz Mccarty APRN, C.N.P. [address] [place] [address] Malignant Neoplasm Of Neck Squamous Cell; Squamous Cell Carcinoma Of Skin Of Scalp [...] often do you attend chur ch or worship services? Never 01/24/2022 Do you belong to [...] and heating? Not hard at all 09/02/2022 [facility] Occupat ional Health - Occupational [...] your living situation today? I have a [facility] place to live 09/02/2022 Education Answer Date Recorded What is the highest level of school you have completed or the highest degree you have received? Bachelor's degree (e.g., BA, AB, BS) 01/24/2022 Sex and Gender Information Value Date Recorded Sex Assigned at Female 01/24/2022 7:37 PM SALES ENGAGEMENT MANAGER Gender Identity Female 01/24/2022 7:37 PM SALES ENGAGEMENT MANAGER Sexual Orientation Straight 01/24/2022 7: 37 PM SALES ENGAGEMENT MANAGER documented as of this encounter Medications [...] 1 scoop every morning with cereal 0 nystatin (MYCOSTATIN) 100,000 unit/gram cream Apply 1 application topically 2 (two) times a day as needed. 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 LAB BLOOD A DD-ON [facility] [address] [place] [address], [facility] [address] [place] [address] * Thyroperoxidase (TPO) Antibodies (09/08/2022 3:00 PM CDT) Thyroperoxidase Ab, S <15.0 <34.0 IU/mL 09/08/2022 4:26 PM CDT DTL Blood 09/08/2022 3:00 PM CDT 09/08/2022 3:34 PM CDT Tammie Hooks M.D., Ph.D. LAB BLOOD A DD-ON [facility] - [facility] [address] [place] [address], [place] DTL [facility] Laboratories-[facility] [address] [place] [address] * Comprehensive Metabolic Panel (09/08/2022 3:00 PM CDT) [facility] Potassium, S 4.1 3.6 - 5.2 mmol/L [...] 3:00 PM CDT 09/08/2022 3:34 PM CDT Farnaz Mccarty APRN C.N.P. LAB BLOOD ADD-ON [facility] [address] [place] [address], [facility] [address] [place] [address] * (ABNORMAL) CBC with Differential, Blood (09/08/2022 3:00 PM CDT) Pathologist [facility] Hemoglobin 12.5 11.6 - 15.0 g/dL 09/08/2022 [...] CDT 09/08/2022 3:26 PM CDT Farnaz Mccarty APRN, C.N.P. LAB BLOOD ADD-ON Performing Organization Address City/[facility]/ZIP Co de Phone Number [facility] [address] [place] [address], [facility] [address] [address] * (ABNORMAL) Thyroid Function [place] (09/08/2022 3:00 PM CDT) TSH, Sensitive 12.2(H) 0.3 - 4.2 mIU/L 09/08/2022 4:06 PM CDT DTL Blood (Blood, Venous) 09/08/2022 3:00 PM CDT 09/08/2022 3:34 PM CDT Tammie Hooks M.D., Ph.D. 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
--- OUTSIDE RECORDS SUMMARY | 2023-04-17 11:48 | XMS_ITS | Encounter Summary ---
Author Name Unknown Organization [facility] Address [address] [place] [address] Care Team Providers Care Bundles Hanger Name Role Phone Elsewhere, Pcp Primary Care Provider Unavailabl e Reason for Visit * Outpatient (Routine) - Closed Specialty Diagnoses / Procedures Referred By Contact Referred To Contact Physical Medicine and Rehabilitation Adeola Nunez M.D. [address] [place] [address] [facility] Referral ID Status Reason Start Date Expiration Date Visits Re quested Visits Authorized [id number] Closed 04/28/2022 04/27/2025 1 1 Encounter Details Date Type Department Care Team (Latest Contact Info) Description 08/08/2022 2:30 PM CDT Comprehensive Visit Department of Physical Medicine and Rehabilitation in [place], [place] [address] [place] [address] Adeola Nunez M.D. [address] [place] [address] Sanjeev Mcmillan M.D. [address] [place] [phone] Limitation Of Motion Cervical Spine (Primary Dx); Malignant Neoplasm Of Neck Squamous Cell; Pain Wrist Right Social History Tobacco Use Types Packs/Day [...] often do you attend chur ch or caodaism services? Never 01/24/2022 Do you belong to any clubs o r organizations such as presybeterian groups, unions, fraternal or athletic groups, or [...] and heating? Not hard at all 08/01/2022 [facility] Occupat ional Health - Occupational [...] [facility] 08/01/2022 Education Answer Date Recorded What is the highest level of school you have completed or the highest degree you have received? Bachelor's degree (e.g., BA, AB, BS) 01/24/2022 Sex and Gender Information Value Date Recorded Sex Assigned at Female 01/24/2022 7:37 PM SUPERVISOR PASTE MIXING Gender Identity Female 01/24/2022 7:37 PM SUPERVISOR PASTE MIXING Sexual Orientation Straight 01/24/2022 7: 37 PM SUPERVISOR PASTE MIXING documented as of this encounter Progress Notes * Sanjeev Mcmillan M.D. - 08/08/2022 2:30 PM CDT SUBJECTIVE CHIEF COMPLAINT/REASON FOR VISIT Shoulder and neck pain; right wrist pain with hand tingling HISTORY OF PRESENT ILLNESS Ms. Guevara is a right-hand dominant woman from [place], [place]; her past medical history includes peripheral [...] end of April 2022. Ms. Guevara was referred to my colleague in the [facility] on April [...] been working with a local massage therapist. The patient's shoulder range of motion has improved markedly and she no longer has any pain. However, she still has some neck tightness and discomfort; has faithfully been doing her stretches. More recently, about 2 weeks ago she began having some right wrist pain; can not relate it to any repetitive activity unless it was from some of her stretching exercises. She also relates having tingling inthe 1st 3 digits of the urxwe-vllrftz-jslo-left hand; has had this intermittently 1st quite some time. She had x-rays by her local physician; these were reportedly unremarkable. Her therapist, an occupational therapist has provided her with a wrist splint and she will be seeing the therapist for fur ther instructions. OBJECTIVE VITAL SIGNS PHYSICAL EXAMINATION General: Very pleasant thin 77-year-old woman Musculoskeletal: Shoulders-full elevation without pain Cervical spine-significant restriction in bilateral rotation. Head and neck-the scalp scars are well healed except 1 very small area. The neck scars are all healed; no significant evidence of lymphedema but she does have some fibrotic skin changes. Right wrist-fairly good range of motion. She does have some tenderness over the volar ulna. 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 I am able to rotate her thumb without any significant pain. 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 However, she still has some neck discomfort; I agree with her therapist that this is most likely secondary to radiation fibrosis as opposed to lymphedema. Ms. Guevara was given further instructions on home stretching program for the fibrosis. She also will continue with a local massage therapist for massage. She also has an appointment for massage in [facility] at [place] in September. I discussed the possibility of a hand Clinic evaluation for her right wrist pain and dxulg-phejuyg-brpe-left hand paresthesias. I am hopeful that the right wrist pain will resolve with activity modification and the splint. This seems to be a separate issue from her tingling which very well could becarpal tunnel syndrome. A referral to the hand Clinic would include a EMG; after describing this she wishes to defer for now. If she continues to have difficulty with right wrist pain and hand tingling, her primary care physician can make a referral. In regards to follow-up in the Cancer Rehab Clinic, the patient wishes to not have a scheduled appointment at this time; however, she knows she is free to contact any of the providers she has seen here. EDUCATION: We discussed the diagnosis and treatment plan in detail. The patient expressed understanding of thecontent. No apparent learning barriers were identified; learning preferences include listening. I personally spent 50 minutes in care of the patient today. Time includes both non face to face andface to face patient care. Signed by: Sanjeev Mcmillan M.D. 08/08/2022 3:04 PM CDT documented in this encounter Plan of Treatment Not on file documented as of this encounter Visit Diagnoses Diagnosis Limitation Of Motion Cervical Spine- Primary Malignant Neoplasm Of Neck Squamous Cell Pain Wrist Right documented in this encounter Care Teams Bundles Hanger Relationship Specialty Start Date End Date Elsewhere, Pcp PCP - General Family Medicine 02/01/22 documented as of this encounter
--- OUTSIDE RECORDS SUMMARY | 2023-04-17 11:49 | XMS_ITS | Encounter Summary ---
Author Name Unknown Organization [facility] Address [address] [place] [address] Care Team Providers Care Medical Records Analyst Name Role Phone Elsewhere, Pcp Primary Care Provider Unavailabl e Encounter Details Date Type Department Care Team (Late st Contact Info) Description 04/29/2022 Documentation Department of Radiation Oncology in [place], [place] [address] [place] [address] Tammie Hooks M.D., Ph.D. [address] [place] [address] Social History Tobacco Use Types Packs/Day Years [...] often do you attend chur ch or baptist services? Never 01/24/2022 Do you belong to any clubs o r organizations such as islam groups, unions, fraternal or athletic groups, or [...] and heating? Not hard at all 01/24/2022 [facility] Occupat ional Health - [...] place to sleep or slept in a mcc (including now)? No 01/24/2022 Nutrition Answer Date [...] Sex Assigned at Female 01/24/2022 7:37 PM ANTIQUE FURNITURE REPAIRER Gender Identity Female 01/24/2022 7:37 PM ANTIQUE FURNITURE REPAIRER Sexual Orientation Straight 01/24/2022 7: 37 PM ANTIQUE FURNITURE REPAIRER documented as of this encounter Miscellaneous Notes * Radiation Completion Notes - Renea Arango, R.N. - 04/29/2022 11:59 PM CST DIAGNOSIS: Malignant Neoplasm Of Neck Squamous Cell Attending Physician: Tammie Hooks M.D., Ph.D. Treatment Intent: Curative Concomitant Therapy: None Treatment Dates: 03/21/22 - 04/29/22 Treatment Plans: Course # 1 Radiation Treatment Summary Treatment Course: 1pScalpNck Plan ID Fractions Dose / Fraction (cGy) Dose Treated (cGy) Dose Planned (cGy) First Treatment Last Treatment Elapsed Days [id number] 200 6000 6000 03/21/2022 04/29/2022 39 [id number] 220 6600 6600 03/21/2022 04/29/2022 39 Course Summary 03/21/2022 04/29/2022 39 CLINICAL SUMMARY Mrs. Veronica Guevara completed 30 treatment of proton radiation treatment for a total of 6600 cGy. Thecourse of treatment was tolerated moderately well and with anticipated side effects. Mrs. Veronica Guevara experienced toxicities of dry mouth, thick phlegm, difficulty swallowing, erythematous skin in the treatment field and fatigue, which were managed with expectant management. RECOMMENDED FOLLOW UP: Radiation Oncologist, Dr. Hooks, in 2 and 6 weeks for a follow-up. In 3 months for a PET Scan, Thyroid labs and follow-up visit. Signed by: Renea Arango R.N., 05/02/2022 3:27 PM ANTIQUE FURNITURE REPAIRER QUE FURNITURE REPAIRER documented in this encounter Plan of Treatment Not on file documented as of this encounter Visit Diagnoses Not on filedocumented in this encounter Care Teams Medical Records Analyst Relationship Specialty Start Date End Date Elsewhere, Pcp PCP - General Family Medicine 02/01/22 documented as of this encounter
--- OUTSIDE RECORDS SUMMARY | 2023-04-17 11:49 | XMS_ITS | Encounter Summary ---
Author Name Unknown Organization [facility] Address [address] [place] [address] Care Team Providers Care Nonprofit Director Name Role Phone Elsewhere, Pcp Primary Care Provider Unavailabl e Reason for Referral * MRI/CAT/PET Scan (Routine) - Authorized Specialty Diagnoses / Procedures Referred By Contac t Referred To Contact Radiology Diagnoses Squamous Cell Carcinoma Of Skin Of Scalp And Neck Procedures CT Neck Soft Tissue without and with IV Contrast Tammie Hooks M.D., Ph.D. [address] [place] [address] [facility] Referral ID Status Reason Start Date Expiration Date V isits Requested Visits Authorized [id number] Authorized 06/10/2022 06/10/2023 1 1 * MRI/CAT/PET Scan (Routine) - Authorized Specialty Diagnoses / Procedures Referred By Contac t Referred To Contact Radiology Diagnoses Squamous Cell Carcinoma Of Skin Of Scalp And Neck Procedures CT Chest without IV Contrast Tammie Hooks M.D., Ph.D. [address] [place] [address] [facility] Referral ID Status Reason Start Date Expiration Date V isits Requested Visits Authorized [id number] Authorized 06/10/2022 06/10/2023 1 1 * MRI/CAT/PET Scan (Routine) - Closed Specialty Diagnoses / Procedures Referred By Contac t Referred To Contact Radiology Diagnoses Squamous Cell Carcinoma Of Skin Of Scalp And Neck Procedures CT Head with IV Contrast Tammie Hooks M.D., Ph.D. [address] [place] [phone] [facility] Referral ID Status Reason Start Date Expiration Date Visits Re quested Visits Authorized [id number] Closed 06/10/2022 06/10/2023 1 1 * Outpatient (Routine) - Closed Specialty Diagnoses / Procedures Referred By Ryan t Referred To Contact Radiation Oncology Tammie Hooks M.D., Ph.D. [address] [place] [phone] [facility] Referral ID Status Reason Start Date Expiration Date Visits Re quested Visits Authorized [id number] Closed 04/29/2022 04/28/2025 1 1 Reason for Visit * Outpatient (Routine) - Closed Specialty Diagnoses / Procedures Referred By Contac t Referred To Contact Radiation Oncology Tammie Hooks M.D., Ph.D. [address] [place] [phone] [facility] Referral ID Status Reason Start Date Expiration Date Visits Re quested Visits Authorized [id number] Closed 04/29/2022 04/28/2025 1 1 Encounter Details Date Type Department Care Team (Latest Contact Info) Description 06/10/2022 1:01 PM CDT - 06/10/2022 5:30 PM CDT Hospital Encounter Department of Radiation Oncology in [place], [place] [address] [place] [phone] Tammie Hooks M.D., Ph.D. [address] [place] [address] Squamous Cell Carcinoma Of Skin Of Scalp [...] How often do you attend chur or buddhist services? Never 01/24/2022 Do you belong to [...] and heating? Not hard at all 01/24/2022 [facility] of Occupat ional Health - Occupational Stress [...] place to sleep or slept in a nursing home (including now)? No 01/24/2022 Nutrition Answer Date [...] Sex Assigned at Female 01/24/2022 7:37 PM MANAGER PRIMARY Gender Identity Female 01/24/2022 7:37 PM MANAGER PRIMARY Sexual Orientation Straight 01/24/2022 7: 37 PM MANAGER PRIMARY documented as of this encounter Last Filed Vital Signs Vital Sign Reading Time Taken Comments Blood Pressure - - Pulse - - Temperature - - Respiratory Rate - - Oxygen Saturation - - Inhaled Oxygen Concentration - - Weight 62 kg (136 lb 11 oz) 06/10/2022 1:23 PM C DT Height - - Body Mass Index 23.42 06/10/2022 9:45 AM CDT documented in this [...] 1 scoop every morning with cereal 0 acetaminophen (TYLENOL) 500 mg tablet Take 500 mg by mouth every 6 (six) hours as needed for pain. 0 08/05/2022 gabapentin (NEURONTIN) 100 mg capsule Take 1 capsule (100 mg total) by mouth 3 (three) times a day. 90 capsule 1 05/02/2022 08/05/2022 ibuprofen (ADVIL,MOTRIN) 200 mg tablet Take 200 mg by mouth every 6 (six) hours as needed for pain. 0 08/05/2022 miconazole (MICATIN) 2 % cream Apply 1 application topically 2 (two) times a day. Apply to skin. 0 08/05/2022 mometasone (ELOCON) 0.1 % cream Apply 1 application topically daily. Apply to neck skin 45 g 1 04/01/2022 08/05/2022 nystatin (MYCOSTATIN) 100,000 unit/gram cream Apply 1 application topically 2 (two) times a day as needed. To dry spot on the base of spine 0 12/22/2021 01/04/2023 silver sulfADIAZINE (SILVADENE, SSD) 1 % cream Apply 1 application. topically daily. Apply to treatment field. 50 g 0 04/29/2022 08/05/2022 documented as of this encounter Progress Notes * Tammie Hooks M.D., Ph.D. - 06/10/2022 1:30 PM CDT SUBJECTIVE REQUESTING PROVIDER Tammie Hooks M.D., Ph.D. CHIEF COMPLAINT/REASON FOR VISIT The encounter diagnosis was Squamous Cell Carcinoma Of Skin Of Scalp And Neck. INTERVAL HISTORY: Mrs. Veronica Guevara is a 76 y.o. female who returns to radiation oncology clinic today for follow up. She is doing well. Eating with no pain. Skin has healed quite well although it is still a little tender to the touch. She reports some swelling the comes and goes on the right neck. Her scalp had a few areas of stitch abscess that ENT removed today. Otherwise she is doing quite well. She has not worse the lymphedema collar because it irritated her skin last time she was wearing it. OBJECTIVE PHYSICAL EXAM General: Pleasant woman in no apparent distress Skin: Top of scalp has healed completed with a few areas of irritate from where they removed the stitches. Areas of secondary intention healing have all completely healed now. No signs of recurrence. HEENT: CN II-XII intact. No signs of tumor. Restricted range of movement in shoulders. No palpable lymph nodes, no lesions on transoral exam and mucosa has healed. Wax in left ear, otherwise membranes clear bilaterally. CT neck, chest, abdomen reviewed in depth, no sign of regional or distant recurrence. ASSESSMENT / PLAN #Squamous cell carcinoma of the scalp 76 y.o. woman with [id number] SqCC of the scalp vertex, 3.5 cm primary, 1.1 cm DOI, LVI+, PNI-, margin-, 2/26 LN on left with XIN, 1/3 LN on right XIN-. She completed 60 Gy to scalp and 60 Gy to bilateral necks (with 66 Gy/30 fx to two gross nodes), 54 Gy/ 30 fx to elective oumou radiation. Doing very well with CT scans showing no sign of disease today and no sign of recurrence on exam ofscalp. We will cancel PET in July and I will plan to see her in [address] head/neck/chest. She will need TSH at follow up after next. EDUCATION Ready to learn, no apparent learning barriers were identified; learning preferences include listening. Explained diagnosis and treatment plan; patient expressed understanding of the content. I personally spent 20 minutes in care of the patient today. Time includes both [id number] [id number] patient care. Signed by: Tammie Hooks MD PhD Custom Miller Dramatic Arts Historian Radiation Oncology 06/10/22 5:25 PM CDT Pager: [phone] documented in this encounter Plan of Treatment Scheduled Orders Name Type Priority Associated Diagnoses Orde r Schedule CT Chest without IV Contrast Imaging RAD - Routine (most inpatients and all outpatients) Squamous Cell Carcinoma Of Skin Of Scalp And Neck Expected: 09/09/2022 (Approximate), Expires: 09/10/2023 CT Neck Soft Tissue without and with IV Contrast Imaging RAD - Routine (most inpatients and all outpatients) Squamous Cell Carcinoma Of Skin Of Scalp And Neck Expected: 09/09/2022 (Approximate), Expires: 09/10/2023 Scheduled Referrals Name Type Priority Associated Diagnoses Order Schedule Radiation Oncology office visit (clinic) Outpatient Referral Routine Once for 1 Occurrences starting 06/10/2022 until 06/10/2022 documented as of this encounter Results * CT Head with IV Contrast (09/09/2022 9:36 AM CDT) Anatomical Region Laterality Modality Head, Neuroradiology [facility] , Neuroradiology [facility], Neuroradiology [facility], Neuroradiology [facility] N/A Computed Tomography, C omputed Tomography 09/09/2022 [...] nodule is not significantly changedsince 06/09/2022 (series ; ). Additional bilateral thyroid nodules. Mild spondyloticchanges [...] dedicated thyroid ultrasound. Tammie Hooks M.D., Ph.D. 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
--- OUTSIDE RECORDS SUMMARY | 2023-04-17 11:49 | XMS_ITS | Encounter Summary ---
Author Name Unknown Organization [facility] Address [address] [place] [address] Care Team Providers Care Human Resources Benefits Administrator Name Role Phone Elsewhere, Pcp Primary Care Provider Unavailabl e Encounter Details Date Type Department Care Team (Latest Contact Info) Description 06/09/2022 12:47 PM CDT - 06/09/2022 1:17 PM CDT Hospital Encounter Department of Laboratory Medicine and Pathology, [facility], in [place], [place] [address] [place] [address] Kimber Jones M.D. [address] [place] [address] Squamous Cell Carcinoma Of Skin Of Scalp [...] often do you attend chur ch or mormonism services? Never 01/24/2022 Do you belong to any clubs o r organizations such as catholic groups, unions, fraternal or athletic groups, [...] and heating? Not hard at all 01/24/2022 [facility] - Occupational Stress Questionnaire Answer Date [...] place to sleep or slept in a jail (including now)? No 01/24/2022 Nutrition Answer Date [...] Sex Assigned at Female 01/24/2022 7:37 PM COMMUNICATIONS TECHNOLOGIST Gender Identity Female 01/24/2022 7:37 PM COMMUNICATIONS TECHNOLOGIST Sexual Orientation Straight 01/24/2022 7: 37 PM COMMUNICATIONS TECHNOLOGIST documented as of this encounter Medications at [...] 04/29/2022 08/05/2022 documented as of this encounter Plan of Treatment Not on file documented as of this encounter Procedures Procedure Name Priority Date/Time Associated Diagnosis Comments CBC WITH DIFFERENTIAL, B Routine 06/09/2022 12:57 PM CDT Squamous Cell Carcinoma Of Skin Of Scalp And Neck COMPREHENSIVE METABOLIC PANEL, S/P Routine 06/09/2022 12:57 PM CDT Squamous Cell Carcinoma Of Skin Of Scalp And Neck documented in this encounter Results * Comprehensive Metabolic Panel (06/09/2022 12:57 PM CDT) Potassium, S 4.2 3.6 - 5.2 mmol/L 06/09/2022 2:26 PM CDT DTL Sodium, S 142 135 - 145 mmol/L 06/09/2022 2:26 PM CDT DTL Chloride, S 103 98 - 107 mmol/L 06/09/2022 2:26 PM CDT DTL Bicarbonate, S 28 22 - 29 mmol/L 06/09/2022 2:26 PM CDT DTL Anion Gap 11 7 - 15 06/09/2022 2:26 PM CDT DTL BUN (Blood Urea Nitrogen), S 12 6 - 21 mg/dL 06/09/2022 2:26 PM CDT DTL Creatinine 0.67 0.59 - 1.04 mg/dL 06/09/2022 2:26 PM CDT DTL Estimated GFR (eGFR) >90 >=60 mL/min/BS A 06/09/2022 2:26 PM CDT DTL Comment: Estimated GFR calculated using the 2020 CKD_EPI creatinine equation. Calcium, Total, S 9.6 8.8 - 10.2 mg/dL 06/09/2022 2:26 PM CDT DTL Glucose, S 109 70 - 140 mg/dL 06/09/2022 2:26 PM CDT DTL Protein, Total, S 7.0 6.3 - 7.9 g/dL 06/09/2022 2:26 PM CDT DTL Albumin, S 4.5 3.5 - 5.0 g/dL 06/09/2022 2:26 PM CDT DTL Aspartate Aminotransferase (AST), S 30 8 - 43 U/L 06/09/2022 2:26 PM CDT DTL Alkaline Phosphatase, S 94 35 - 104 U/L 06/09/2022 2:26 PM CDT DTL Alanine Aminotransferase (ALT), S 20 7 - 45 U/L 06/09/2022 2:26 PM CDT DTL Bilirubin, Total, S 0.4 <=1.2 mg/dL 06/09/2022 2:26 PM CDT DTL Blood (Blood, Venous) 06/09/2022 12:57 PM CDT 06/09/2022 1:57 PM CDT Kimber Jones M.D. LAB BLOOD ADD-ON [facility] [address] [place] [address], [place] DTL [facility] [address] [place] [address] * (ABNORMAL) CBC with Differential, Blood (06/09/2022 12:57 PM CDT) Hemoglobin 12.3 11.6 - 15.0 g/dL 06/09/2022 1:41 PM CDT DTL Hematocrit 39.1 35.5 - 44.9 % 06/09/2022 1:41 PM CDT DTL Erythrocytes 4.53 3.92 - 5.13 x10(12)/L 06/09/2022 1:41 PM CDT DTL MCV 86.3 78.2 - 97.9 fL 06/09/2022 1:41 PM CDT DTL RBC Distrib Width 14.0 12.2 - 16.1 % 06/09/2022 1:41 PM CDT DTL Platelet Count 221 157 - 371 x10(9)/L 06/09/2022 1:41 PM CDT DTL Leukocytes 4.1 3.4 - 9.6 x10(9)/L 06/09/2022 1:41 PM CDT DTL Neutrophils 3.02 1.56 - 6.45 x10(9)/L 06/09/2022 1:41 PM CDT DTL Lymphocytes 0.58(L) 0.95 - 3.07 x10(9)/L 06/09/2022 1:41 PM CDT DTL Monocytes 0.38 0.26 - 0.81 x10(9)/L 06/09/2022 1:41 PM CDT DTL Eosinophils 0.10 0.03 - 0.48 x10(9)/L 06/09/2022 1:41 PM CDT DTL Basophils 0.04 0.01 - 0.08 x10(9)/L 06/09/2022 1:41 PM CDT DTL Blood (Blood, Venous) 06/09/2022 12:57 PM CDT 06/09/2022 1:23 PM CDT Kimber Jones M.D. LAB BLOOD ADD-ON [facility] [address] [place] [address], [place] DTL [facility] [address] [place] [address] documented in this encounter Visit Diagnoses Diagnosis Squamous Cell Carcinoma Of Skin Of Scalp And Neck documented in this encounter Care Teams Human Resources Benefits Administrator Relationship Specialty Start Date End Date Elsewhere, Pcp PCP - General Family Medicine 02/01/22 documented as of this encounter
--- OUTSIDE RECORDS SUMMARY | 2023-04-17 11:49 | XMS_ITS | Encounter Summary ---
Author Name Unknown Organization [facility] Address [address] [place] [address] Care Team Providers Care Conformal Pad Former Name Role Phone Elsewhere, Pcp Primary Care Provider Unavailabl e Reason for Referral * Outpatient (Routine) - Closed Specialty Diagnoses / Procedures Referred By Ryan cronin Referred To Contact Otorhinolaryngology Rachelle Arnold M.D. [address] [place] [phone] [facility] Referral ID Status Reason Start Date Expiration Date Visits Re quested Visits Authorized [id number] Closed 05/25/2022 05/24/2025 1 1 Scheduling Instructions Please schedule appt with Dr. Arnold on 8:00 AM on MondayJune 10 in the [place] [address] Treatment Room at [place]. This can be placed on Dr. Castorena's calendar. Encounter Details Date Type Department Care Team (Late st Contact Info) Description 05/25/2022 Orders Only Department of Otorhinolaryngology in [place], [place] [address] [place] [phone] Rachelle Arnold M.D. [address] [place] [phone] Social History Tobacco Use Types Packs/Day Years [...] often do you attend chur ch or zoroastrian services? Never 01/24/2022 Do you belong to any clubs o r organizations such as jain groups, unions, fraternal or athletic groups, or [...] and heating? Not hard at all 01/24/2022 [facility] of Occupat ional [...] place to sleep or slept in a prison (including now)? No 01/24/2022 Nutrition Answer Date [...] Sex Assigned at Female 01/24/2022 7:37 PM SSDS MK 2 ADVANCED OPERATOR Gender Identity Female 01/24/2022 7:37 PM SSDS MK 2 ADVANCED OPERATOR Sexual Orientation Straight 01/24/2022 7: 37 PM SSDS MK 2 ADVANCED OPERATOR documented as of this encounter Plan of Treatment Scheduled Referrals Name Type Priority Associated Diagnoses Order Schedule Otorhinolaryngology office visit (clinic) Outpatient Referral Routine Expected: 06/10/2022, Expires: 08/26/2023 documented as of this encounter Visit Diagnoses Not on filedocumented in this encounter Care Teams Conformal Pad Former Relationship Specialty Start Date End Date Elsewhere, Pcp PCP - General Family Medicine 02/01/22 documented as of this encounter
--- OUTSIDE RECORDS SUMMARY | 2023-04-17 11:49 | XMS_ITS | Encounter Summary ---
Author Name Unknown Organization [facility] Address [address] [place] [address] Care Team Providers Care Supervisor Research Kennel Name Role Phone Elsewhere, Pcp Primary Care Provider Unavailabl e Encounter Details Date Type Department Care Team (Late st Contact Info) Description 05/02/2022 Orders Only Department of Radiation Oncology in [place], [place] [address] [place] [address] Renea Arango S, R.N. Social History Tobacco [...] any clubs o r organizations such as yarsanism groups, unions, fraternal or athletic groups, or [...] and heating? Not hard at all 01/24/2022 [facility] of Occupat ionwi Health - Occupational Stress Questionnaire Answer Date [...] place to sleep or slept in a senior living (including now)? No 01/24/2022 Nutrition Answer Date [...] Sex Assigned at Female 01/24/2022 7:37 PM FUNERAL PLANNER Gender Identity Female 01/24/2022 7:37 PM FUNERAL PLANNER Sexual Orientation Straight 01/24/2022 7: 37 PM FUNERAL PLANNER documented as of this encounter Plan of Treatment Not on file documented as of this encounter Visit Diagnoses Not on filedocumented in this encounter Care Teams Supervisor Research Kennel Relationship Specialty Start Date End Date Elsewhere, Pcp PCP - General Family Medicine 02/01/22 documented as of this encounter
--- OUTSIDE RECORDS SUMMARY | 2023-04-17 11:49 | XMS_ITS | Encounter Summary ---
Author Name Unknown Organization [facility] Address [address] [place] [address] Care Team Providers Care Manager Logistic Name Role Phone Elsewhere, Pcp Primary Care Provider Unavailabl e Reason for Referral * Outpatient (Routine) - Closed Specialty Diagnoses / Procedures Referred By Contac t Referred To Contact Radiation Oncology Tammie Hooks M.D., Ph.D. [address] [place] [address] [facility] Referral ID Status Reason Start Date Expiration Date Visits Re quested Visits Authorized [id number] Closed 04/28/2022 04/27/2025 1 1 Scheduling Instructions Please schedule right after treatment. ILE INSTRUMENT TECHNICIAN Reason for Visit * Outpatient (Routine) - Closed Specialty Diagnoses / Procedures Referred By Contac t Referred To Contact Radiation Oncology Tammie Hooks M.D., Ph.D. [address] [place] [phone] [facility] Referral ID Status Reason Start Date Expiration Date Visits Re quested Visits Authorized [id number] Closed 04/28/2022 04/27/2025 1 1 Encounter Details Date Type Department Care Team ([facility] st Contact Info) Description 04/28/2022 12:15 PM STERILE INSTRUMENT TECHNICIAN - 04/28/2022 11:59 PM STERILE INSTRUMENT TECHNICIAN Hospital Encounter Department of Radiation Oncology in [place], [place] [address] [place] [address] Tammie Hooks M.D., Ph.D. [address] [place] [address] Renea Arango RJohn Paul Discharge Disposition: Home or Self Care Social [...] 01/24/2022 [facility] of Occupat ional [facility] - Occupational Stress Questionnaire Answer Date Recorded [...] Sex Assigned at Female 01/24/2022 7:37 PM STERILE INSTRUMENT TECHNICIAN Gender Identity Female 01/24/2022 7:37 PM STERILE INSTRUMENT TECHNICIAN Sexual Orientation Straight 01/24/2022 7: 37 PM STERILE INSTRUMENT TECHNICIAN documented as of this encounter Medications at [...] hours as needed for pain. 0 08/05/2022 ibuprofen (ADVIL,MOTRIN) 200 mg tablet Take 200 mg by mouth every 6 (six) hours as needed for pain. 0 08/05/2022 mometasone (ELOCON) 0.1 % cream [...] Priority Associated Diagnoses Order Schedule Radiation Oncology nurse visit (clinic) Outpatient Referral Routine Once for 1 Occurrences starting 04/28/2022 until 04/28/2022 documented as of this encounter Visit Diagnoses Not on filedocumented in this encounter Care Teams Manager Logistic Relationship Specialty Start Date End Date Elsewhere, Pcp PCP - General Family Medicine 02/01/22 documented as of this encounter
--- OUTSIDE RECORDS SUMMARY | 2023-04-17 11:49 | XMS_ITS | Encounter Summary ---
Author Name Unknown Organization [facility] Address [address] [place] [address] Care Team Providers Care Argon Tester Name Role Phone Elsewhere, Pcp Primary Care Provider Unavailabl e Encounter Details Date Type Department Care Team (Latest Contact Info) Description 04/29/2022 11:58 AM DIRECTOR OF FOOD AND NUTRITION SERVICES - 04/29/2022 11:59 PM DIRECTOR OF FOOD AND NUTRITION SERVICES Hospital Encounter Department of Radiation Oncology in [place], [place] [address] [place] [address] Tammie Hooks M.D., Ph.D. [address] [place] [address] Discharge Disposition: Home or Self Care Social [...] often do you attend chur ch or islam services? Never 01/24/2022 Do you belong to [...] and heating? Not hard at all 01/24/2022 [facility] [place] [facility] of Occupat ionhi Health - Occupational Stress Questionnaire Answer Date [...] at Female 01/24/2022 7:37 PM DIRECTOR OF FOOD AND NUTRITION SERVICES Gender Identity Female 01/24/2022 7:37 PM DIRECTOR OF FOOD AND NUTRITION SERVICES Sexual Orientation Straight 01/24/2022 7: 37 PM DIRECTOR OF FOOD AND NUTRITION SERVICES documented as of this encounter Medications at [...] on filedocumented in this encounter Care Teams Argon Tester Relationship Specialty Start Date End Date Elsewhere, Pcp PCP - General Family Medicine 02/01/22 documented as of this encounter
--- OUTSIDE RECORDS SUMMARY | 2023-04-17 11:49 | XMS_ITS | Encounter Summary ---
Author Name Unknown Organization [facility] Address [address] [place] [address] Care Team Providers Care Hand Chain Maker Name Role Phone Elsewhere, Pcp Primary Care Provider Unavailabl e Encounter Details Date Type Department Care Team (Late st Contact Info) Description 05/04/2022 Orders Only Department of Radiation Oncology in [place], [place] [address] [place] [address] Tammie Hooks M.D., Ph.D. [address] [place] [address] Squamous Cell Carcinoma Of Skin Of Scalp [...] place to sleep or slept in a alf (including now)? No 01/24/2022 Nutrition Answer Date [...] Sex Assigned at Female 01/24/2022 7:37 PM INFORMATION TECHNOLOGY INTERN Gender Identity Female 01/24/2022 7:37 PM INFORMATION TECHNOLOGY INTERN Sexual Orientation Straight 01/24/2022 7: 37 PM INFORMATION TECHNOLOGY INTERN documented as of this encounter Plan of Treatment Not on file documented as of this encounter Visit Diagnoses Diagnosis Squamous Cell Carcinoma Of Skin Of Scalp And Neck- Primary documented in this encounter Care Teams Hand Chain Maker Relationship Specialty Start Date End Date Elsewhere, Pcp PCP - General Family Medicine 02/01/22 documented as of this encounter
--- OUTSIDE RECORDS SUMMARY | 2023-04-17 11:49 | XMS_ITS | Encounter Summary ---
Author Name Unknown Organization [facility] Address [address] [place] [address] Care Team Providers Care Laundry Technician Name Role Phone Elsewhere, Pcp Primary Care Provider Unavailabl e Reason for Referral * Outpatient (Routine) - Closed Specialty Diagnoses / Procedures Referred By Contac t Referred To Contact Radiation Oncology Tammie Hooks M.D., Ph.D. [address] [place] [phone] [facility] Referral ID Status Reason Start Date Expiration Date Visits Re quested Visits Authorized [id number] Closed 04/29/2022 04/28/2025 1 1 RACT PROCESSOR * Outpatient (Routine) - Closed Specialty Diagnoses / Procedures Referred By Contac t Referred To Contact Radiation Oncology Tammie Hooks M.D., Ph.D. [address] [place] [phone] [facility] Referral ID Status Reason Start Date Expiration Date Visits Re quested Visits Authorized [id number] Closed 04/29/2022 04/28/2025 1 1 RACT PROCESSOR * Outpatient (Routine) - Closed Specialty Diagnoses / Procedures Referred By Ryan cronin Referred To Contact Radiation Oncology Tammie Hooks M.D., Ph.D. [address] [place] [address] [facility] Referral ID Status Reason Start Date Expiration Date Visits Re quested Visits Authorized [id number] Closed 04/29/2022 04/28/2025 1 1 RACT PROCESSOR Encounter Details Date Type Department Care Team (Latest Contact Info) Description 04/29/2022 10:42 AM CONTRACT PROCESSOR - 04/29/2022 11:57 AM CONTRACT PROCESSOR Hospital Encounter Department of Radiation Oncology in [place], [place] [address] [place] [phone] Tammie Hooks M.D., Ph.D. 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 Not hard at all 01/24/2022 [facility] - Occupational [...] place to sleep or slept in a snf (including now)? No 01/24/2022 Nutrition Answer Date [...] Sex Assigned at Female 01/24/2022 7:37 PM CONTRACT PROCESSOR Gender Identity Female 01/24/2022 7:37 PM CONTRACT PROCESSOR Sexual Orientation Straight 01/24/2022 7: 37 PM CONTRACT PROCESSOR documented as of this encounter Last Filed Vital Signs Vital Sign Reading Time Taken Comments Blood Pressure - - Pulse - - Temperature - - Respiratory Rate - - Oxygen Saturation - - Inhaled Oxygen Concentration - - Weight 64.5 kg (142 lb 3.2 oz) 04/29/2022 11:03 AM CONTRACT PROCESSOR Height - - Body Mass Index 24.41 02/01/2022 10:41 AM CONTRACT PROCESSOR documented in this encounter Medications at Time [...] as of this encounter Progress Notes * Renea Arango R.N. - 04/29/2022 11:15 AM CST RADIATION ONCOLOGY MANAGEMENT VISIT Diagnosis: Malignant Neoplasm Of Neck Squamous Cell Current Radiotherapy Treatment Course: 1pScalpNck Plan ID Fractions Dose / Fraction (cGy) Dose Treated (cGy) Dose Planned (cGy) First Treatment Last Treatment Elapsed Days [id number] 200 6000 6000 03/21/2022 04/29/2022 39 [id number] 220 6600 6600 03/21/2022 04/29/2022 39 Course Summary 03/21/2022 04/29/2022 39 Anticipated date of completion: April 28, 2022 Modality: proton SUBJECTIVE Mrs. Guevara is currently undergoing radiation treatment for the above diagnosis. She continues toreport a dry mouth and thick phlegm; doing baking soda rinses 3-4 times daily. She intermittently uses Biotene spray as she feels necessary. She did take 1 tablet of Mucinex today. She reports mild difficulty swallowing with a weird feeling present with swallowing. Eating and drinking has been going well up to this point. Her lymphedema in her neck has remained under control with using her headwrap once daily as recommended. The skin in the treatment field on her bilateral neck and sides of the neck is erythematous. She applies Aloe Vera, Vanicream and Aquaphor to the areas. Her fatigue level has become impacted and she feels more tired. OBJECTIVE Wt 64.5 kg BMI 24.41 kg/m?? Pain Score: 5/10; Pain Loc: (neck pain) PHYSICAL EXAM General appearance: alert, cooperative, and no distress Head: Erythema noted Skin: Erythema noted on the skin in the treatment field. ASSESSMENT / PLAN Mrs. Guevara is tolerating radiotherapy well and without significant acute toxicity. Mrs. Guevarawas given more Aquaphor, telfa and some Ensure clear to try, should swallowing become difficult over the next few weeks. Dr. Hooks prescribed topical Silvadene to be applied to the treatment spot onthe left neck. She will continue with treatment as planned with completion date listed above. She was encouraged to contact our team at any time with questions or concerns. Follow-up: A follow-up visit in two weeks and six weeks. In 3 months, a PET scan, Thyroid labs and follow-up visit with Dr. Hooks. RACT PROCESSOR Associated attestation - Tammie Hooks M.D., Ph.D. - 04/29/2022 2:39 PM CONTRACT PROCESSOR I have reviewed the patient???s history and physical examination as detailed below. I have personally evaluated the patient. We have discussed the patient???s care in detail and I agree with the assessment and recommendations as outlined above. Port films reviewed from this week were acceptable andwe will continue radiation as planned. She did excellent with treatment and excited to be done. Gave silvadene for desquamation on scalp and left posterior neck area that I suspect may have desquamation in a few days. Discussed that if she has pain with swallowing to let us know and we can give rx for viscous lidocaine, but I am hoping this isn't needed. Just having a feeling of things getting stuck right now but still swallowing ok. She did ask for suture removal yesterday and although I was able to pull a few wiry bristles out these looked more like hair than sutures. She said she still has a feeling of sutures but I do not seeanything so I think this may be some of her hair sticking up after the radiation. She is considering a wig in the future but today her family all wore head wraps in support for her capps ringing. Follow up for symptoms check in 2 weeks and 6 weeks (can be virtual) and 3 months with PET. Tammie Hooks MD PhD Mortgage Assistant Mixer Operator Hot Metal Radiation Oncology 04/29/22 2:31 PM CONTRACT PROCESSOR Pager: [phone] documented in this encounter Miscellaneous Notes * Addendum Note - Renea Arango R.N. - 04/29/2022 11:15 AM CSTEncounter addended by: Renea Arango R.N. on: 05/02/2022 3:46 PM Actions taken: Flowsheet accepted RACT PROCESSOR * Addendum Note - Manohar Morgan APRN C.N.PNey, D.N.P. - 04/29/2022 11:15 AM CONTRACT PROCESSOR Encounter addended by: Manohar Morgan APRN C.N.P., D.N.P. on: 05/03/2022 8:31 AM Actions taken: Flowsheet accepted RACT PROCESSOR documented in this encounter Plan of Treatment Scheduled Referrals Name Type Priority Associated Diagnoses Orde r Schedule Radiation Oncology office visit (clinic) Outpatient Referral Routine Expected: 05/13/2022, Expires: 07/28/2023 Radiation Oncology office visit (clinic) Outpatient Referral Routine Expected: 06/10/2022, Expires: 07/28/2023 Radiation Oncology office visit (clinic) Outpatient Referral Routine Expected: 07/27/2022 (Approximate), Expires: 07/28/2023 documented as of this encounter Results * (ABNORMAL) Thyroid Function [facility] (09/08/2022 3:00 PM CDT) TSH, Sensitive 12.2(H) 0.3 - 4.2 mIU/L 09/08/2022 4:06 PM CDT DTL Blood (Blood, Venous) 09/08/2022 3:00 PM CDT 09/08/2022 3:34 PM CDT Tammie Hooks M.D., Ph.D. LAB BLOOD A DD-ON [facility] [address] [place] [address], [place] DTL [facility] [address] [place] [address] documented in this encounter Visit Diagnoses Diagnosis Malignant Neoplasm Of Neck Squamous Cell- Primary documented in this encounter Care Teams Laundry Technician Relationship Specialty Start Date End Date Elsewhere, Pcp PCP - General Family Medicine 02/01/22 documented as of this encounter
--- OUTSIDE RECORDS SUMMARY | 2023-04-17 11:49 | XMS_ITS | Encounter Summary ---
Author Name Unknown Organization [facility] Address [address] [place] [address] Care Team Providers Care Media Arts Professor Name Role Phone Elsewhere, Pcp Primary Care Provider Unavailabl e Encounter Details Date Type Department Care Team (Latest Contact Info) Description 06/08/2022 10:30 AM CDT Clinical Communication Virtual Review in [place], [place] [address] [place], [place] [address] Social History Tobacco Use Types Packs/Day Years [...] any clubs o r organizations such as jainism groups, unions, fraternal or athletic groups, or [...] and heating? Not hard at all 01/24/2022 [facility] - [...] Sex Assigned at Female 01/24/2022 7:37 PM EVAPORATOR OPERATOR MOLASSES Gender Identity Female 01/24/2022 7:37 PM EVAPORATOR OPERATOR MOLASSES Sexual Orientation Straight 01/24/2022 7: 37 PM EVAPORATOR OPERATOR MOLASSES documented as of this encounter Plan of Treatment Not on file documented as of this encounter Visit Diagnoses Not on filedocumented in this encounter Care Teams Media Arts Professor Relationship Specialty Start Date End Date Elsewhere, Pcp PCP - General Family Medicine 02/01/22 documented as of this encounter
--- OUTSIDE RECORDS SUMMARY | 2023-04-17 11:49 | XMS_ITS | Encounter Summary ---
Author Name Unknown Organization [facility] Address [address] [place] [address] Care Team Providers Care Curtain Cutter Hand Name Role Phone Elsewhere, Pcp Primary Care Provider Unavailabl e Reason for Referral * MRI/CAT/PET Scan (Routine) - Closed Specialty Diagnoses / Procedures Referred By Contac t Referred To Contact Radiology Diagnoses Squamous Cell Carcinoma Of Skin Of Scalp And Neck Procedures CT Abdomen Pelvis with IV Contrast Kimber Jones M.D. [address] [place] [phone] [facility] Referral ID Status Reason Start Date Expiration Date Visits Re quested Visits Authorized [id number] Closed 02/10/2022 02/10/2023 1 1 * MRI/CAT/PET Scan (Routine) - Closed Specialty Diagnoses / Procedures Referred By Contac t Referred To Contact Radiology Diagnoses Squamous Cell Carcinoma Of Skin Of Scalp And Neck Procedures CT Chest with IV Contrast Kimber Jones M.D. [address] [place] [address] [facility] Referral ID Status Reason Start Date Expiration Date Visits Re quested Visits Authorized [id number] Closed 02/10/2022 02/10/2023 1 1 * MRI/CAT/PET Scan (Routine) - Closed Specialty Diagnoses / Procedures Referred By Ryan cronin Referred To Contact Radiology Diagnoses Squamous Cell Carcinoma Of Skin Of Scalp And Neck Procedures CT Neck Soft Tissue with IV Contrast Kimber Jones M.D. [address] [place] [phone] [facility] Referral ID Status Reason Start Date Expiration Date Visits Re quested Visits Authorized [id number] Closed 02/10/2022 02/10/2023 1 1 Reason for Visit * MRI/CAT/PET Scan (Routine) - Closed Specialty Diagnoses / Procedures Referred By Ryan cronin Referred To Contact Radiology Diagnoses Squamous Cell Carcinoma Of Skin Of Scalp And Neck Procedures CT Abdomen Pelvis with IV Contrast Kimber Jnoes M.D. [address] [place] [phone] [facility] Referral ID Status Reason Start Date Expiration Date Visits Re quested Visits Authorized [id number] Closed 02/10/2022 02/10/2023 1 1 Encounter Details Date Type Department Care Team (Latest Contact Info) Description 06/09/2022 1:18 PM CDT - 06/09/2022 11:59 PM CDT Hospital Encounter Department of Radiology, [facility], in [place], [place] [address] [place] [phone] Kimber Jones M.D. [address] [place] [phone] Squamous Cell Carcinoma Of Skin Of Scalp [...] How often do you attend chur or pentecostal services? Never 01/24/2022 Do you belong to any clubs o r organizations such as faith groups, unions, fraternal or athletic groups, or [...] and heating? Not hard at all 01/24/2022 [facility] - Occupational Stress [...] place to sleep or slept in a long-term (including now)? No 01/24/2022 Nutrition Answer Date [...] Sex Assigned at Female 01/24/2022 7:37 PM BAGGAGE SCREENER Gender Identity Female 01/24/2022 7:37 PM BAGGAGE SCREENER Sexual Orientation Straight 01/24/2022 7: 37 PM BAGGAGE SCREENER documented as of this encounter Medications at [...] on (next collection) for 1 Occurrences starting 06/09/2022 until 06/09/2022 documented as of this encounter Procedures Procedure Name Priority Date/Time Associated Diagnosis Comments CT ABDOMEN PELVIS WITH IV CONTRAST RAD - Routine (most inpatients and all outpatients) 06/09/2022 2:20 PM CDT Squamous Cell Carcinoma Of Skin Of Scalp And Neck CT CHEST WITH IV CONTRAST RAD - Routine (most inpatients and all outpatients) 06/09/2022 2:20 PM CDT Squamous Cell Carcinoma Of Skin Of Scalp And Neck CT NECK SOFT TISSUE WITH IV CONTRAST RAD - Routine (most inpatients and all outpatients) 06/09/2022 2:20 PM CDT Squamous Cell Carcinoma Of Skin Of Scalp And Neck CREATININE, POCT, B Routine 06/09/2022 1:42 PM CDT CREATININE, POCT, B Routine 06/09/2022 1:42 PM CDT documented in this encounter Results * CT Abdomen Pelvis with IV Contrast (06/09/2022 2:20 PM CDT) Anatomical Region Laterality Modality Abdomen, Pelvis, Abdominal R ST LOS, Abdominal ARZ LOS, Abdominal FLA LOS N/A Computed Tomograp hy, Computed Tomography 06/09/2022 2:10 PM CDT Impressions 06/09/2022 2:48 PM CDT Nothing for metastatic disease. Narrative 06/09/2022 2:48 PM CDT EXAM: ??CT ABDOMEN PELVIS WITH IV CONTRAST COMPARISON: ??01/25/2022 PET/CT FINDINGS: ??Several small low-density observations in the liver, likely cysts and/or small hemangiomas. Small bilateral renal cysts. Nothing for metastases. Small hiatal hernia. Hysterectomy. Colonic diverticula. Pancreas, both adrenal glands, and spleen are unremarkable. This examination was performed in conjunction with a CT of the neck and chest, which will be reported separately. Procedure Note Philip Cordero M.D. - 06/09/2022 EXAM: CT ABDOMEN PELVIS WITH IV CONTRAST COMPARISON: 01/25/2022 PET/CT FINDINGS: Several small low-density observations in the liver, likelycysts and/or small hemangiomas. Small bilateral renal cysts. Nothing for metastases. Small hiatal hernia. Hysterectomy. Colonic diverticula. Pancreas, both adrenal glands, and spleen are unremarkable. This examination was performed in conjunction with a CT of the neck andchest, which will be reported separately. IMPRESSION: Nothing for metastatic disease. Kimber Jones M.D. [facility] PROCEDURES * CT Chest with IV Contrast (06/09/2022 2:20 PM CDT) Anatomical Region Laterality Modality Chest, Thoracic RST LOS, Tho racic ARZ LOS, Thoracic ARZ LOS, Thoracic FLA LOS N/A Computed Tomography, Compute d Tomography 06/09/2022 2:11 PM CDT Impressions 06/09/2022 2:24 PM CDT 1. No evidence of thoracic metastatic disease. 2. No significant change from prior. Narrative 06/09/2022 2:24 PM CDT EXAM: CT CHEST WITH IV CONTRAST COMPARISON: PET/CT 01/25/2022 FINDINGS: No thoracic adenopathy. No pleural effusion. No parenchymal consolidation. No indeterminate pulmonary nodules. Dependent atelectasis in the posterior lungs. Bilateral apical scarring. Coronary calcification. Small esophageal hiatal hernia. Small right thyroid nodule. Mild degenerative changes thoracic spine. This examination was performed in conjunction with a CT of the abdomen and neck, which will be reported separately. 3D maximum intensity projection (MIP) images were created on a dependent workstation as ordered by the treating provider and reviewed by the radiologist to increase sensitivity for detection of pulmonary nodules. Procedure Note Ion Ball M.D. - 06/09/2022 EXAM: CT CHEST WITH IV CONTRAST COMPARISON: PET/CT 01/25/2022 FINDINGS: No thoracic adenopathy. No pleural effusion. No parenchymal consolidation.No indeterminate pulmonary nodules. Dependent atelectasis in the posterior lungs. Bilateral apical scarring.Coronary calcification. Small esophageal hiatal hernia. Small right thyroid nodule. Milddegenerative changes thoracic spine. This examination was performed in conjunction with a CT of the abdomen andneck, which will be reported separately. 3D maximum intensity projection (MIP) images were created on a dependentworkstation as ordered by the treating provider and reviewed by the radiologist to increasesensitivity for detection of pulmonary nodules. IMPRESSION: 1. No evidence of thoracic metastatic disease. 2. No significant change from prior. Kimber ORTZI CT PROCEDURES * CT Neck Soft Tissue with IV Contrast (06/09/2022 2:20 PM CDT) Anatomical Region Laterality Modality Neck, Neuroradiology RST LOS , Neuroradiology ARZ LOS, Neuroradiology [facility] N/A Computed Tomography, Compute d Tomography 06/09/2022 2:16 PM CDT Impressions 06/09/2022 4:37 PM CDT 1. No findings for recurrent metastatic disease in the neck. 2. Very enlarged heterogeneous lingual tonsils, more prominent on the right, overall similar to prior neck CT 01/13/2022, favored reactive. Attention on follow-up. Narrative 06/09/2022 4:37 PM CDT EXAM: CT NECK SOFT TISSUE WITH IV CONTRAST COMPARISON: PET/CT 01/25/2022. CT soft tissue neck 01/13/2022. 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 Wide local excision and bilateral neck dissection 02/01/2022: LVI+, PNI-, 2/26 LN on left with XIN, 1/3 LN on right XIN-. Adjuvant radiation to the scalp and bilateral necks completed 05/02/22. FINDINGS: No findings of recurrent metastatic disease in the neck. Mild soft tissue thickening with architectural distortion loss of fat planes along the neck dissections. Enlarged heterogeneous lingual tonsils, greater on the right, without a definite dominant mass, probably similar to the prior neck CT and with overall homogeneous uptake on the prior PET/CT. Patent vascular structures in the neck. Normal salivary glands and thyroid. Symmetric structures of the aerodigestive tract. No concerning findings within imaged intracranial contents. Vertex is outside the [id number]. Mild mucosal thickening about maxillary sinuses. Clear mastoid air cells. No concerning osseous lesions. Please see concurrent chest CT for dedicated mediastinal findings. Procedure Note Griselda De La Cruz M.D., M.B.A. - 06/09/2022 EXAM: CT NECK SOFT TISSUE WITH IV CONTRAST COMPARISON: PET/CT 01/25/2022. CT soft tissue neck 01/13/2022. 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 Widelocal excision and bilateral neck dissection 02/01/2022: LVI+, PNI-, 2/26 LN on left withENE, 1/3 LN on right XIN-. Adjuvant radiation to the scalp and bilateral necks completed 05/02/22. FINDINGS: No findings of recurrent metastatic disease in the neck. Mild soft tissuethickening with architectural distortion loss of fat planes along the neck dissections.Enlarged heterogeneous lingual tonsils, greater on the right, without a definite dominant mass,probably similar to the prior neck CT and with overall homogeneous uptake on the prior PET/CT. Patent vascular structures in the neck. Normal salivary glands andthyroid. Symmetric structures of the aerodigestive tract. No concerning findings within imaged intracranial contents. Vertex isoutside the [id number]. Mild mucosal thickening about maxillary sinuses. Clear mastoid air cells.No concerning osseous lesions. Please see concurrent chest CT for dedicated mediastinal findings. IMPRESSION: 1. No findings for recurrent metastatic disease in the neck. 2. Very enlarged heterogeneous lingual tonsils, more prominent on theright, overall similar to prior neck CT 01/13/2022, favored reactive. Attention on follow-up. Kimber Jones M.D. G CT PROCEDURES * Creatinine, POCT (06/09/2022 1:42 PM CDT) [facility] Creatinine, POCT, B 0.6 0.6 - 1.0 mg/dL 06/09/2022 1:47 PM CDT PCDT Comment: ----ADDITIONAL INFORMATION---- Performed at the Point of Care Blood 06/09/2022 1:42 PM CDT 06/09/2022 1:48 PM CDT Unknown Provider LAB POCT ORDERABLES - DEVICE Performing Organization Address City/State/[facility] Co de Phone Number [facility] PERFORMING LABS [address] [place] [address], [facility] PCDT [facility] [address] [place] [address] * Creatinine, POCT (06/09/2022 1:42 PM CDT) [facility] Estimated GFR (eGFR), POCT >90 >=60 mL/min/BSA 06/09/2022 1:48 PM CDT PCMO Comment: Estimated GFR calculated using the 2020 CKD_EPI creatinine equation. Blood 06/09/2022 1:42 PM CDT 06/09/2022 1:48 PM CDT Unknown Provider LAB POCT ORDERABLES - DEVICE POC RST [facility] [address] [place] [address], [facility] [address] [place] [address] documented in this encounter Visit Diagnoses Diagnosis Squamous Cell Carcinoma Of Skin Of Scalp And Neck documented in this encounter Administered Medications Inactive Administered Medications - up to 3 most recent administrations Medication Order MAR Action Action Date Dose Rate Site iohexoL 300 mg iodine/mL solution 1-200 mL (OMNIPAQUE) 1-200 mL, intravenous, Once in imaging, contrast, Starting on Stacia 06/09/22 at 1330, For 1 dose, Imaging Protocol Orders, Dose per Radiant Medication Guidelines Given 06/09/2022 2:00 PM CDT 140 mL sodium chloride (PF) 0.9 % injection 1-100 mL 1-100 mL, intravenous, Once, On Stacia 06/09/22 at 1345, For 1 dose, Imaging Protocol Orders Given 06/09/2022 2:00 PM CDT 50 mL documented in this encounter Care Teams Curtain Cutter Hand Relationship Specialty Start Date End Date Elsewhere, Pcp PCP - General Family Medicine 02/01/22 documented as of this encounter
--- OUTSIDE RECORDS SUMMARY | 2023-04-17 11:49 | XMS_ITS | Encounter Summary ---
Author Name Unknown Organization [facility] Address [address] [place] [address] Care Team Providers Care Motel Keeper Name Role Phone Elsewhere, Pcp Primary Care Provider Unavailabl e Reason for Referral * Outpatient (Routine) - Closed Specialty Diagnoses / Procedures Referred By Contac t Referred To Contact Radiation Oncology Tammie Hooks M.D., Ph.D. [address] [place] [address] [facility] Referral ID Status Reason Start Date Expiration Date Visits Re quested Visits Authorized [id number] Closed 04/29/2022 04/28/2025 1 1 NICAL SALES SUPPORT MANAGER Reason for Visit * Outpatient (Routine) - Closed Specialty Diagnoses / Procedures Referred By Contac t Referred To Contact Radiation Oncology Tammie Hooks M.D., Ph.D. [address] [place] [address] [facility] Referral ID Status Reason Start Date Expiration Date Visits Re quested Visits Authorized [id number] Closed 04/29/2022 04/28/2025 1 1 Encounter Details Date Type Department Care Team (Latest Contact Info) Description 05/13/2022 11:00 AM TECHNICAL SALES SUPPORT MANAGER - 05/16/2022 4:40 PM CDT Hospital Encounter Department of Radiation Oncology in [place], [place] [address] [place] [address] Tammie Hooks M.D., Ph.D. [address] [place] [address] Malignant Neoplasm Of Neck Squamous Cell (Primary [...] often do you attend chur ch or jain services? Never 01/24/2022 Do you belong to [...] and heating? Not hard at all 01/24/2022 [facility] [place] of Occupat ional Health - Occupational Stress [...] Sex Assigned at Female 01/24/2022 7:37 PM TECHNICAL SALES SUPPORT MANAGER Gender Identity Female 01/24/2022 7:37 PM TECHNICAL SALES SUPPORT MANAGER Sexual Orientation Straight 01/24/2022 7: 37 PM TECHNICAL SALES SUPPORT MANAGER documented as of this encounter Medications [...] Notes * Tammie Hooks M.D., Ph.D. - 05/13/2022 11:00 AM CST SUBJECTIVE REQUESTING PROVIDER Tammie Hooks M.D., Ph.D. CHIEF COMPLAINT/REASON FOR VISIT There were no encounter diagnoses. INTERVAL HISTORY: Mrs. Veronica Guevara is a 76 y.o. female who returns to radiation oncology clinic today virtually for follow up. She reports that her skin blistered and opened a few days after finishing radiation. She is puttingsilvadene on twice daily and still putting aquaphor on her scalp. She is able to eat with some discomfort. She has lost two pounds since finishing radiation. Her skin is starting to heal as the open area is less. She also has a tender area just below her erythema on her chest. She continues to weara bandage on her scalp at night and it does have some clear/yellow discharge on it in the morning. OBJECTIVE PHYSICAL EXAM General: Pleasant woman in no apparent distress Skin: bilateral neck show significant erythema, mild desquamation. Top of scalp shows granulation tissue where tissue was initially healing by secondary intention. Clean and wet desquamation. ASSESSMENT / PLAN #Squamous cell carcinoma of the scalp 76 y.o. woman with [id number] SqCC of the scalp vertex, 3.5 cm primary, 1.1 cm DOI, LVI+, PNI-, margin-, 2/26 LN on left with XIN, 1/3 LN on right XIN-. She completed 60 Gy to scalp and 60 Gy to bilateral necks (with 66 Gy/30 fx to two gross nodes), 54 Gy/ 30 fx to elective oumou radiation. On video today, she is as well as expected at this point with expected skin toxicity. Discussed continuing silvadene on bilateral necks and aquaphor on scalp. I will plan to see her in four weeks in person. Encouraged her to continue to eat. EDUCATION Ready to learn, no apparent learning barriers were identified; learning preferences include listening. Explained diagnosis and treatment plan; patient expressed understanding of the content. I personally spent 20 minutes in care of the patient today. Time includes both sap-njlp-hy-face copjrnp-bg-tubv patient care. Signed by: Tammie Hooks MD PhD Hand Rug Braider Cover Cutter Machine Radiation Oncology 05/16/22 3:12 PM CDT Pager: [phone] documented in this encounter Plan of Treatment Scheduled Referrals Name Type Priority Associated Diagnoses Order Schedule Radiation Oncology office visit (clinic) Outpatient Referral Routine Once for 1 Occurrences starting 05/13/2022 until 05/13/2022 documented as of this encounter Visit Diagnoses Diagnosis Malignant Neoplasm Of Neck Squamous Cell- Primary documented in this encounter Care Teams Motel Keeper Relationship Specialty Start Date End Date Elsewhere, Pcp PCP - General Family Medicine 02/01/22 documented as of this encounter
--- OUTSIDE RECORDS SUMMARY | 2023-04-17 11:49 | XMS_ITS | Encounter Summary ---
Author Name Unknown Organization [facility] Address [address] [place] [address] Care Team Providers Care Cable Weaver Name Role Phone Elsewhere, Pcp Primary Care Provider Unavailabl e Reason for Referral * Outpatient (Routine) - Closed Specialty Diagnoses / Procedures Referred By Ryan cronin Referred To Contact Radiation Oncology Tammie Hooks M.D., Ph.D. [address] [place] [address] [facility] Referral ID Status Reason Start Date Expiration Date Visits Re quested Visits Authorized [id number] Closed 04/28/2022 04/27/2025 1 1 Scheduling Instructions Please schedule right after treatment. MACHINE MECHANIC Encounter Details Date Type Department Care Team (Late st Contact Info) Description 04/28/2022 Orders Only Department of Radiation Oncology in [place], [place] [address] [place] [phone] Renea Arango, RNeyN. Social History Tobacco Use Types Packs/Day Years [...] How often do you attend chur or muslim services? Never 01/24/2022 Do you belong to any clubs o r organizations such as orthodoxy groups, unions, fraternal or athletic groups, or [...] and heating? Not hard at all 01/24/2022 [facility] [place] of Occupat ional Health - Occupational Stress [...] Sex Assigned at Female 01/24/2022 7:37 PM FELT MACHINE MECHANIC Gender Identity Female 01/24/2022 7:37 PM FELT MACHINE MECHANIC Sexual Orientation Straight 01/24/2022 7: 37 PM FELT MACHINE MECHANIC documented as of this encounter Plan of Treatment Scheduled Referrals Name Type Priority Associated Diagnoses Orde r Schedule Radiation Oncology nurse visit (clinic) Outpatient Referral Routine Expected: 04/28/2022, Expires: 07/27/2023 documented as of this encounter Visit Diagnoses Not on filedocumented in this encounter Care Teams Cable Weaver Relationship Specialty Start Date End Date Elsewhere, Pcp PCP - General Family Medicine 02/01/22 documented as of this encounter
--- OUTSIDE RECORDS SUMMARY | 2023-04-17 11:50 | XMS_ITS | Encounter Summary ---
Author Name Unknown Organization [facility] Address [address] [place] [address] Care Team Providers Care Student Recruiter Name Role Phone Elsewhere, Pcp Primary Care Provider Unavailabl e Encounter Details Date Type Department Care Team (Latest Contact Info) Description 04/21/2022 10:34 AM MOLD FILLER AND DRAINER - 04/21/2022 11:59 PM MOLD FILLER AND DRAINER Hospital Encounter Department of Radiation Oncology in [place], [place] [address] [place] [address] Tammie Hooks M.D., Ph.D. [address] [place] [address] Discharge Disposition: Home or Self Care Social [...] often do you attend chur ch or adventist services? Never 01/24/2022 Do you belong to any clubs o r organizations such as quaker groups, unions, fraternal or athletic groups, or [...] at all 01/24/2022 [facility] of Occupat ionoh Health - Occupational Stress Questionnaire Answer Date [...] Sex Assigned at Female 01/24/2022 7:37 PM MOLD FILLER AND DRAINER Gender Identity Female 01/24/2022 7:37 PM MOLD FILLER AND DRAINER Sexual Orientation Straight 01/24/2022 7: 37 PM MOLD FILLER AND DRAINER documented as of this encounter Medications at [...] on filedocumented in this encounter Care Teams Student Recruiter Relationship Specialty Start Date End Date Elsewhere, Pcp PCP - General Family Medicine 02/01/22 documented as of this encounter
--- OUTSIDE RECORDS SUMMARY | 2023-04-17 11:50 | XMS_ITS | Encounter Summary ---
Author Name Unknown Organization [facility] Address [address] [place] [address] Care Team Providers Care Coupling Machine Operator Name Role Phone Elsewhere, Pcp Primary Care Provider Unavailabl e Reason for Referral * Radiation Therapy (Routine) - Closed Specialty Diagnoses / Procedures Referred By Ryan cronin Referred To Contact Diagnoses Malignant Neoplasm Of Neck Squamous Cell Procedures Management Visit Tammie Hooks M.D., Ph.D. [address] [place] [address] [facility] Referral ID Status Reason Start Date Expiration Date Visits Re quested Visits Authorized [id number] Closed 02/11/2022 02/11/2023 7 7 ITION INTERN Reason for Visit * Radiation Therapy (Routine) - Closed Specialty Diagnoses / Procedures Referred By Ryan cronin Referred To Contact Diagnoses Malignant Neoplasm Of Neck Squamous Cell Procedures Management Visit Tammie Hooks M.D., Ph.D. [address] [place] [address] [facility] Referral ID Status Reason Start Date Expiration Date Visits Re quested Visits Authorized [id number] Closed 02/11/2022 02/11/2023 7 7 Encounter Details Date Type Department Care Team (Latest Contact Info) Description 04/22/2022 10:22 AM NUTRITION INTERN - 04/22/2022 11:40 AM NUTRITION INTERN Hospital Encounter Department of Radiation Oncology in [place], [place] [address] [place] [address] Tammie Hooks M.D., Ph.D. [address] [place] [address] Malignant Neoplasm Of Neck Squamous Cell Social [...] often do you attend chur ch or shinto services? Never 01/24/2022 Do you belong to any clubs o r organizations such as nondenominational groups, unions, fraternal or athletic groups, or [...] and heating? Not hard at all 01/24/2022 [facility] of Occupat ional Health - Occupational [...] place to sleep or slept in a penitentiary (including now)? No 01/24/2022 Nutrition Answer Date [...] Sex Assigned at Female 01/24/2022 7:37 PM NUTRITION INTERN Gender Identity Female 01/24/2022 7:37 PM NUTRITION INTERN Sexual Orientation Straight 01/24/2022 7: 37 PM NUTRITION INTERN documented as of this encounter Last Filed Vital Signs Vital Sign Reading Time Taken Comments Blood Pressure - - Pulse - - Temperature - - Respiratory Rate - - Oxygen Saturation - - Inhaled Oxygen Concentration - - Weight 64.7 kg (142 lb 10.2 oz) 023 10:49 AM NUTRITION INTERN Height - - Body Mass Index 24.48 02/01/2022 10:41 AM NUTRITION INTERN documented in this encounter Medications at Time [...] of this encounter Progress Notes * Renea Arango, R.N. - 04/22/2022 11:00 AM CST RADIATION ONCOLOGY MANAGEMENT VISIT Diagnosis: 1. Malignant Neoplasm Of Neck Squamous Cell Current Radiotherapy Treatment Course: 1pScalpNck Plan ID Fractions Dose / Fraction (cGy) Dose Treated (cGy) Dose Planned (cGy) First Treatment Last Treatment Elapsed Days [id number] 200 5000 6000 03/21/2022 04/22/2022 32 [id number] 220 5500 6600 03/21/2022 04/22/2022 32 Course Summary 03/21/2022 04/22/2022 32 Anticipated date of completion: April 29, 2022 Modality: proton SUBJECTIVE Mrs. Guevara is currently undergoing radiation treatment for the above diagnosis. She reports thather skin has started to turn red over the last week; no reports of itching noted. She continues to apply Aquaphor to the scalp and lotion to the skin in the treatment field twice daily. She reports that she picked up some Aloe Vera yesterday and it is soothing to the skin so she has also been applying that. Her lymphedema in her neck has improved since last week; she wears the neck sleeve about once daily to help with any swelling. She reports experiencing a dry mouth yesterday, but tried the biotene spray and that was effective in relieving the dry mouth. She continues to do baking soda rinse s 3-4 times per day, depending on when her treatment is. No reports of any difficulty with swallowing at this time. She continues to work with PT on exercises for her range of motion. She feels that her range of motion in both arms is much better than when she first started treatment. She inquires today about a spot above her eye and on her chin line. She also inquires about what follow-up will look like after she completes radiation treatment. OBJECTIVE Wt 64.7 kg BMI 24.48 kg/m?? Pain Score: 0-No pain/10; PHYSICAL EXAM General appearance: alert, cooperative, and no distress Skin: Erythema noted in the treatment field on the front and back of the neck, the chest and the earlobes. ASSESSMENT / PLAN Mrs. Guevara is tolerating radiotherapy well and without significant acute toxicity. We discussed starting to apply Aquaphor at night time to the skin in the treatment field to provide extra moisture to that area. She was encouraged to continue doing baking soda rinses and increase them if she experiences dry mouth and/or thick phlegm. She was reassured that there are no concerns with either thespot above the eye or the spot on her chin at this time. Dr. Hooks touched base on follow-up with her and orders will be placed at her last management next week. She will continue with treatment as planned with weekly management visits or sooner should the need arise. She was encouraged to contact our team at any time with questions or concerns. ITION INTERN Associated attestation - Tammie Hooks M.D., Ph.D. - 04/22/2022 5:21 PM NUTRITION INTERN I have reviewed the patient???s history and physical examination as detailed below. I have personally evaluated the patient. We have discussed the patient???s care in detail and I agree with the assessment and recommendations as outlined above. Port films reviewed from this week were acceptable andwe will continue radiation as planned. Patient doing very well. Moderate erythema on scalp, no desquamation. Erythema/hyperpigmentation ofskin of neck but lymphedema significantly improved compared to last week, seeing PT for this and using sleeve compression. No problems eating. Rash under left breast was macular papular with satellite lesion c/w yeast infection, advised miconazole cream OTC. Tammie Hooks MD PhD Java Websphere Developer Housekeeping Coordinator Radiation Oncology 04/22/22 5:18 PM NUTRITION INTERN Pager: [phone] documented in this encounter Plan of Treatment Scheduled Orders Name Type Priority Associated Diagnoses Orde r Schedule Management Visit Radiation Oncology Routine Malignant Neoplasm Of Neck Squamous Cell Once for 1 Occurrences starting 04/22/2022 until 04/22/2022 documented as of this encounter Visit Diagnoses Diagnosis Malignant Neoplasm Of Neck Squamous Cell documented in this encounter Care Teams Coupling Machine Operator Relationship Specialty Start Date End Date Elsewhere, Pcp PCP - General Family Medicine 02/01/22 documented as of this encounter
--- OUTSIDE RECORDS SUMMARY | 2023-04-17 11:50 | XMS_ITS | Encounter Summary ---
Author Name Unknown Organization [facility] Address [address] [place] [address] Care Team Providers Care Sales Designer Name Role Phone Elsewhere, Pcp Primary Care Provider Unavailabl e Encounter Details Date Type Department Care Team (Latest Contact Info) Description 04/22/2022 11:41 AM RN MDS - 04/22/2022 11:59 PM RN MDS Hospital Encounter Department of Radiation Oncology in [place], [place] [address] [place] [address] Tammie Hooks M.D., Ph.D. [address] [place] [address] Discharge Disposition: Home or Self Care Social [...] any clubs o r organizations such as zoroastrian groups, unions, fraternal or athletic groups, or [...] and heating? Not hard at all 01/24/2022 [facility] of Occupat ionil Health - Occupational Stress Questionnaire Answer Date [...] place to sleep or slept in a intermediate (including now)? No 01/24/2022 Nutrition Answer Date [...] Sex Assigned at Female 01/24/2022 7:37 PM RN MDS Gender Identity Female 01/24/2022 7:37 PM RN MDS Sexual Orientation Straight 01/24/2022 7: 37 PM RN MDS documented as of this encounter Medications at [...] on filedocumented in this encounter Care Teams Sales Designer Relationship Specialty Start Date End Date Elsewhere, Pcp PCP - General Family Medicine 02/01/22 documented as of this encounter
--- OUTSIDE RECORDS SUMMARY | 2023-04-17 11:50 | XMS_ITS | Encounter Summary ---
Author Name Unknown Organization [facility] Address [address] [place] [address] Care Team Providers Care Neuroscientist Name Role Phone Elsewhere, Pcp Primary Care Provider Unavailabl e Reason for Visit * Appointment Request (Routine) - Closed Specialty Diagnoses / Procedures Referred By Ryan cronin Referred To Contact Otorhinolaryngology Referral ID Status Reason Start Date Expiration Date Visits Re quested Visits Authorized [id number] Closed 04/15/2022 04/15/2023 1 Encounter Details Date Type Department Care Team (Latest Contact Info) Description 04/19/2022 2:00 PM HOT TAMALE WORKER Office Visit Department of Otorhinolaryngology in [place], [place] [address] [place] [address] Molly Au, LIVESTOCK HANDLER, C.N.P. [address] [place] [address] Squamous Cell Carcinoma Of Skin Of Scalp [...] often do you attend chur ch or oriental orthodox services? Never 01/24/2022 Do you belong to any clubs o r organizations such as hinduism groups, unions, fraternal or athletic groups, or [...] heating? Not hard at all 01/24/2022 [facility] of Occupat ional Health - Occupational [...] Sex Assigned at Female 01/24/2022 7:37 PM HOT TAMALE WORKER Gender Identity Female 01/24/2022 7:37 PM HOT TAMALE WORKER Sexual Orientation Straight 01/24/2022 7: 37 PM HOT TAMALE WORKER documented as of this encounter Progress Notes * Molly Au, LIVESTOCK HANDLER, C.N.P. - 04/19/2022 2:00 PM CST Ms. Guevara presents to clinic today requesting suture removal from a few areas at the scalp whereshe underwent following resection of an invasive, poorly differentiated, squamous cell carcinoma. She is currently undergoing radiation therapy in his bothered by some discomfort and inflammation in an area where there are a few stitches that remain. Physical exam: There were 3-4 sutures that I was able to identify and remove, which will hopefully provide increased comfort for Ms. Guevara as she continues to progress through radiation treatment.We discussed continued application of moisturizing agent to the scalp I encouraged her to return to ENT as needed if she identifies other sutures that are bothersome or has questions or concerns. TAMALE WORKER documented in this encounter Plan of Treatment Not on file documented as of this encounter Visit Diagnoses Diagnosis Squamous Cell Carcinoma Of Skin Of Scalp And Neck- Primary documented in this encounter Care Teams Neuroscientist Relationship Specialty Start Date End Date Elsewhere, Pcp PCP - General Family Medicine 02/01/22 documented as of this encounter
--- OUTSIDE RECORDS SUMMARY | 2023-04-17 11:50 | XMS_ITS | Encounter Summary ---
Author Name Unknown Organization [facility] Address [address] [place] [address] Care Team Providers Care Death Claim Clerk Name Role Phone Elsewhere, Pcp Primary Care Provider Unavailabl e Reason for Referral * Outpatient (Routine) - Closed Specialty Diagnoses / Procedures Referred By Contact Referred To Contact Physical Medicine and Rehabilitation Adeola Nunez M.D. [address] [place] [phone] [facility] Referral ID Status Reason Start Date Expiration Date Visits Re quested Visits Authorized [id number] Closed 04/28/2022 04/27/2025 1 1 Scheduling Instructions Cancer rehab follow-up DDED HARDWARE ENGINEER * Physical Therapy (Routine) - Authorized Specialty Diagnoses / Procedures Referred By Ryan cronin Referred To Contact Physical Therapy Diagnoses Pain Neck Pain Shoulder Left Pain Shoulder Right Limitation Of Motion Shoulder Joint Left Limitation Of Motion Shoulder Joint Right Bursitis Subacromial Left Bursitis Subacromial Right Pain Myofascial Neoplastic Malignant Related Fatigue Adeola Nunez M.D. [address] [place] [phone] [address] Phone: [phone] Referral ID Status Reason Start Date Expiration Date Visits Requested Visits Authorized [id number] Authorized Continuity of Care 04/28/2022 04/28/2023 99 99 DDED HARDWARE ENGINEER Reason for Visit * Reason Comments Shoulder Pain Neck Pain * Outpatient (Routine) - Closed Specialty Diagnoses / Procedures Referred By Contact Referred To Contact Physical Medicine and Rehabilitation Adeola Nunez M.D. [address] [place] [phone] [facility] Referral ID Status Reason Start Date Expiration Date Visits Re quested Visits Authorized [id number] Closed 04/07/2022 04/06/2025 1 1 Encounter Details Date Type Department Care Team (Latest Contact Info) Description 04/28/2022 2:00 PM EMBEDDED HARDWARE ENGINEER Comprehensive Visit Department of Physical Medicine and Rehabilitation in [place], [place] [address] [place] [address] Adeola Nunez M.D. [address] [place] [phone] Pain Neck (Primary Dx); Pain Shoulder Left; Pain Shoulder Right; Limitation Of Motion Shoulder Joint Left; Limitation Of Motion Shoulder Joint Right; Bursitis Subacromial Left; Bursitis Subacromial Right; Pain Myofascial; Neoplastic Malignant Related Fatigue Social History Tobacco Use Types Packs/Day Years [...] often do you attend chur ch or methodist services? Never 01/24/2022 Do you belong to [...] place to sleep or slept in a residential (including now)? No 01/24/2022 Nutrition Answer Date [...] Sex Assigned at Female 01/24/2022 7:37 PM EMBEDDED HARDWARE ENGINEER Gender Identity Female 01/24/2022 7:37 PM EMBEDDED HARDWARE ENGINEER Sexual Orientation Straight 01/24/2022 7: 37 PM EMBEDDED HARDWARE ENGINEER documented as of this encounter Progress Notes * Adeola Nunez M.D. - 04/28/2022 2:00 PM CST SUBJECTIVE CHIEF COMPLAINT/REASON FOR VISIT Shoulder Pain and Neck Pain HISTORY OF PRESENT ILLNESS Mrs. Veronica Guevara a 76 y.o. 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 She also had some hypomobile scar movement on the right side ofher neck causing discomfort in restricted range of motion/myofascial pain as well. She elected to pursue conservative management where she was referred to [facility] Nov[facility], [facility]; where she was able to attend x3 sessions. During her last session on 04/26/22 she reported that her shoulder pain had improved though she had some ongoing weakness with bilateral shoulder depressionwith scapular protraction. She also was noted to be independent with her home exercise program, where she would be re-evaluated in the coming months. Currently, she was seen in clinic this afternoon accompanied by . She does report improvement of her pain; where she also has noticed improvement in regards to her shoulder range of motion. She still does have tightness in her trapezius, where unfortunately she wasnot able to see [facility] for an oncologic massage due to being on a wait list. Though she has had continued improve with conservative measures, she is interested in further rehabilitation after she leaves [place] tomorrow following completion of her radiation treatments. REVIEW OF SYSTEMS Answers submitted by the patient for this visit: General Review of Symptoms (Submitted on 03/27/2022) Fatigue: Yes Visual problems: Yes Difficulty hearing: Yes Sinus congestion: Yes No heart issues: Yes Coughing up mucus (phlegm): Yes No GI issues: Yes Muscle pain/stiffness: Yes Pain or stiffness in the joints: Yes No skin issues: Yes Weakness in arms and/or legs: Yes Feeling down, depressed, or hopeless: Yes Not being able to stop or control worrying: Yes Enlarged lymph nodes: Yes No urinary/reproductive issues: Yes MEDICAL HISTORY/SOCIAL HISTORY/FAMILY HISTORY/CURRENT MEDICATIONS Reviewed and available via Electronic Health Record. OBJECTIVE VITAL SIGNS There were no vitals taken for this visit. PHYSICAL EXAMINATION General/Constitutional: Alert individual in no acute distress. Mental Status/Psychiatric: Appropriate mood and affect. Grossly oriented with coherent speech and thought processing. HEENT: Neck supple. No scleral icterus. Mucous membranes moist. Chest: No labored breathing, symmetrical inspiration/expiration. Cardiovascular: Well-perfused. Abdomen: Soft, nondistended. MSK: Flexion is around 120?? during active range of motion, where this can get close to 160?? with passive range of motion. She continues to exhibit taught musculature/spasm in her trapezius with a forward flexed and rounded shoulder position. There continues to be scapular winging. Skin: No obvious skin breakdown. Her surgical sites are well healed. DIAGNOSTICS --Imaging Reviewed: DX Foot Left 3+ Views Result Date: 04/13/2022 Impression: Nodular soft tissue prominence left 4th toe may represent a small cyst that could be further characterized with ultrasound. Scattered degenerative changes left foot, greatest at the 1st MTP. Hallux valgus. Benign bone island left calcaneus. Right hallux rigidus. DX Shoulder Bilateral 2+ Views Result Date: 04/08/2022 Impression: Mild glenohumeral and AC joint degenerative arthritis bilaterally. Lateral downsloping of the acromions. Presumed artifactual lucency and sclerosis left scapula, seen on lateral projection. A subacute to chronic nondisplaced fracture could also have this appearance. --Laboratory Studies: No results found for this or any previous visit (from the past 72 hour(s)). Procedures: None. ASSESSMENT / PLAN 76 y.o. 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 Guevara in clinic this afternoon in regards to her shoulder pain. She continues to exhibit multifactorial shoulder dysfunction in the setting of likely shoulder osteoarthritis, subacromial/subdeltoid bursitis/RTC impingement, potential winging scapula(no overt injury on Op note), and significant myofascial pain in her cervical paraspinals and trapezius area. She also has some hypomobile scar movement on the right side of her neck causing discomfort in restricted range of motion/myofascial pain as well. She has seen improvement of her symptoms after participating in physical therapy and her home exercise program which she does on a regular basis. As she also has continued significant myofascial symptoms especially in her trapezius area, she also will be referred to physical therapy closer to home to try techniques such as dry needling or myofascial release with Graston technique to see if this can help with her symptoms. A prescription was generated in clinic today for this, where she will plan on pursuing this following completion of her proton therapy tomorrow. Should she not have improvement of her symptoms with continued conservative management, she also may be a candidate for potential ultrasound-guided corticosteroid injections; where this will be deferred at this time as she has had improvement of her symptoms. Will plan on re-evaluation of her symptoms following continued conservative management; where further treatment will be started as indicated based on her therapeutic response to the above plan and clinical presentation. Follow-Up: x3 Months EDUCATION We discussed the diagnosis and treatment plan in detail. The patient expressed understanding of thecontent. No apparent learning barriers were identified. 25 minutes spent with patient, of this time 25 minutes spent counseling the patient and education and coordination of care. Evaluation time does not include procedure if performed. Paul Nunez M.D. DDED HARDWARE ENGINEER documented in this encounter Plan of Treatment Scheduled Referrals Name Type Priority Associated Diagnoses Order Schedule Physical Medicine and Rehabilitation office visit (clinic) Outpatient Referral Routine Expected: 07/26/2022 (Approximate), Expires: 07/27/2023 documented as of this encounter Visit Diagnoses Diagnosis Pain Neck- Primary Pain Shoulder Left Pain Shoulder Right Limitation Of Motion Shoulder Joint Left Limitation Of Motion Shoulder Joint Right Bursitis Subacromial Left Bursitis Subacromial Right Pain Myofascial Neoplastic Malignant Related Fatigue documented in this encounter Care Teams Death Claim Clerk Relationship Specialty Start Date End Date Elsewhere, Pcp PCP - General Family Medicine 02/01/22 documented as of this encounter
--- OUTSIDE RECORDS SUMMARY | 2023-04-17 11:50 | XMS_ITS | Encounter Summary ---
Author Name Unknown Organization [facility] Address [address] [place] [address] Care Team Providers Care Fisher Clam Name Role Phone Elsewhere, Pcp Primary Care Provider Unavailabl e Reason for Visit * Reason Onset Date Comments Pre-visit Intake 04/27/2022 Encounter Details Date Type Department Care Team (Latest Contact Info) Description 04/27/2022 12:30 PM STONE DRILLER Clinical Communication Virtual Review in [place], [place] [address] [place], [place] [phone] Pre-visit Intake Social History Tobacco Use Types [...] often do you attend chur ch or denominational services? Never 01/24/2022 Do you [...] and heating? Not hard at all 01/24/2022 [facility] - [...] Sex Assigned at Female 01/24/2022 7:37 PM STONE DRILLER Gender Identity Female 01/24/2022 7:37 PM STONE DRILLER Sexual Orientation Straight 01/24/2022 7: 37 PM STONE DRILLER documented as of this encounter Plan of Treatment Not on file documented as of this encounter Visit Diagnoses Not on filedocumented in this encounter Care Teams Fisher Clam Relationship Specialty Start Date End Date Elsewhere, Pcp PCP - General Family Medicine 02/01/22 documented as of this encounter
--- OUTSIDE RECORDS SUMMARY | 2023-04-17 11:50 | XMS_ITS | Encounter Summary ---
Author Name Unknown Organization [facility] Address [address] [place] [address] Care Team Providers Care Can Intake Worker Name Role Phone Elsewhere, Pcp Primary Care Provider Unavailabl e Reason for Visit * Physical Therapy (Routine) - Closed Specialty Diagnoses / Procedures Referred By Ryan t Referred To Contact Diagnoses Pain Shoulder Left Pain Shoulder Right Limitation Of Motion Shoulder Joint Left Limitation Of Motion Shoulder Joint Right Procedures PT Ongoing treatment Adeola Nunez M.D. [address] [place] [address] [employer] Referral ID Status Reason Start Date Expiration Date Visits Re quested Visits Authorized [id number] Closed 04/08/2022 04/08/2023 99 99 Encounter Details Date Type Department Care Team (Latest Contact Info) Description 04/18/2022 2:30 PM NETWORK AND THREAT SUPPORT SPECIALIST Clinical Support Department of Physical Medicine and Rehabilitation in [place], [place] [address] [place] [phone] Adeola Nunez M.D. [address] [place] [address] Jennifer Novoa P.T., CLT-[facility] [address] [place] [phone] Pain Shoulder Left; Pain Shoulder Right; Limitation [...] and heating? Not hard at all 01/24/2022 [facility] - [...] place to sleep or slept in a retirement (including now)? No 01/24/2022 Nutrition Answer Date [...] Sex Assigned at Female 01/24/2022 7:37 PM NETWORK AND THREAT SUPPORT SPECIALIST Gender Identity Female 01/24/2022 7:37 PM NETWORK AND THREAT SUPPORT SPECIALIST Sexual Orientation Straight 01/24/2022 7: 37 PM NETWORK AND THREAT SUPPORT SPECIALIST documented as of this encounter Progress Notes * Jennifer Novoa P.T., CLT-HAM - 04/18/2022 2:30 PM CST Physical Therapy Cancer Rehabilitation Outpatient Treatment Patient's Name: Veronica Guevara Referring Provider: Adeola Nunez M.D. Reason for referral: post-op bilateral shoulder pain and weakness, limited neck motion, neck lymphedema Veronica Guevara is a 76 y.o. female from [place], [place], seen for follow-up of post-op bilateral shoulder pain and weakness, and, today, addressing neck tightness and lymphedema. SUBJECTIVE Patient reports her bilateral shoulders function has improved, still has pain, especially right shoulder when getting up out of bed in the morning, and weakness, e.g., needs to lift right arm up reaching into cupboards aboe shoulder height. Patient also referred by Dr. Tammie Hooks to address neck lymphedema. 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 Proton beam radiation (66 Gy, 30 fractions) pending completion on 04/29/22. Social: Patient is . OBJECTIVE General: Right-handed, thin physique. Functional Mobility: Independent Posture: forward head and rounded shoulder posturing, increased thoracic kyphosis, Bilateral (R>L) shoulder depression with scapular protraction and inferior angle lateral rotation consistent withspinal accessory neuropathy ROM: Jaw: 50 mm opening Neck: flexion 40??, extension 40??, rotation 50?? Active Shoulder motion (improved): R/L Flexion 105/115 (initial 95/105) degrees; Abduction 70 degrees. Passive flexion supine R/L: 145 degrees. -superior medial scapula to spine (right/left) 10 cm/7 cm Strength: mild bilateral trapezial atrophy in the setting of marked shoulder depression (bra strapsslid down to AC joint bilaterally), shoulder weakness with mild right scapular winging present. Neck: mild right neck lymphedema superior to adhered incision line TREATMENT >Neck ROM (new): rotation adding trunk rotation with hands in prayer position >Neck Lymphedema (new): -manual techniques: reviewed gentle massage techniques -compression: initiated Jobst fascioplasty over soft abreu chip foam pad to reduce dermal fibrosis and swelling. Placed ABD pad across scalp to protect open wound. Patient to start with 10-15 min, canwear up to 2 hrs/day over the next 3-6 months as needed to address neck swelling. >Bilateral shoulder range of motion (reviewed): -Supine shoulder flexion and pectoral stretching with use of pillow under head due to increased thoracic kyphosis, adding trunk rotation with knees in hook- lying position. -Doorway pectoral stretch -Overhead van exercise (ordered van for patient on [employer] [facility] [employer] product does notwork well) for assisted painfree range of motion bilateral shoulders for flexion and abduction x 7-10 repetitions. >Bilateral Shoulder /Scapular Stabilization (reviewed/advanced): 3-5 reps, 1-3 sets, daily -Active Scapular Retraction: straight back. -Shoulder Shrugs (to re-start): 1) straight up, then 2) up and back in diagonal adding scapular retraction -Over door van for assisted elevation adding gentle resistance both directions to activate scapular stabilizers -Resistance band (new)(orange, Level 1)(3-5 reps, 1-3 sets, 2-3 times/week): 1) Standing row, 2) Shoulder ER Patient Education Provided: [employer]. Questions answered. Patient verbalized understanding and appreciative of intervention. Assessment post-op bilateral shoulder pain and weakness, limited neck motion, neck lymphedema Squamous cell carcinoma scalp, undergoing radiation therapy Veronica Guevara reports her shoulder pain has improved, on-going bilateral (R>L) shoulder weakness with marked bilateral shoulder depression with scapular protraction which patient reports was not present prior to surgery. Patient to continue pain free shoulder range of motion and advanced scapularstabilization exercises. Initiated neck range of motion and compression/massage to address mild right neck lymphedema. Treatment Plan: Recheck in 1 week to finalize home program prior to completion of radiation therapyon 04/29. Jennifer Novoa P.T., CLT-LANA Start of Plan of Care: 04/08/22 Total Visit Count: 2 Number of Visits: up to 5 visits Re-cert Date: 07/04/22 Plan of Care: -Education on anatomy and physiology of shoulder -Instruction in a home exercise program including neck, and shoulder exercises (range of motion, and scapular stabilization) Lymphedema PT Goals Goal #1: Patient independent in a home exercise program and self-management strategies. Goal #2: Patient will regain functional, active pain free shoulder range of motion and function. Goal #1-2 Date: 03/05/23 Rehab Diagnosis: 1. Pain Shoulder Left 2. Pain Shoulder Right 3. Limitation Of Motion Shoulder Joint Left 4. Limitation Of Motion Shoulder Joint Right Payor: MEDICARE / Plan: MEDICARE A AND B / Product Type: Medicare / PT: Time Spent with Patient Therapeutic Interventions Therapeutic Activity (min): 15 min Therapeutic Exercise (min): 30 min Time Tracking Total Timed Units (min): 45 min Total Treatment Time (min): 45 min ORK AND THREAT SUPPORT SPECIALIST documented in this encounter Plan of Treatment Not on file documented as of this encounter Visit Diagnoses Diagnosis Pain Shoulder Left Pain Shoulder Right Limitation Of Motion Shoulder Joint Left Limitation Of Motion Shoulder Joint Right documented in this encounter Care Teams Can Intake Worker Relationship Specialty Start Date End Date Elsewhere, Pcp PCP - General Family Medicine 02/01/22 documented as of this encounter
--- OUTSIDE RECORDS SUMMARY | 2023-04-17 11:50 | XMS_ITS | Encounter Summary ---
Author Name Unknown Organization [facility] Address [address] [place] [address] Care Team Providers Care Staff Midwife Name Role Phone Elsewhere, Pcp Primary Care Provider Unavailabl e Encounter Details Date Type Department Care Team (Latest Contact Info) Description 04/27/2022 10:28 AM RESTORATION SILVERSMITH - 04/27/2022 11:59 PM RESTORATION SILVERSMITH Hospital Encounter Department of Radiation Oncology in [place], [place] [address] [place] [address] Tammie Hooks M.D., Ph.D. [address] [place] [address] Discharge Disposition: Home or Self Care Social [...] any clubs o r organizations such as worship groups, unions, fraternal or athletic groups, or [...] and heating? Not hard at all 01/24/2022 [facility] - Occupational Stress Questionnaire Answer Date [...] place to sleep or slept in a assisted (including now)? No 01/24/2022 Nutrition Answer Date [...] Sex Assigned at Female 01/24/2022 7:37 PM RESTORATION SILVERSMITH Gender Identity Female 01/24/2022 7:37 PM RESTORATION SILVERSMITH Sexual Orientation Straight 01/24/2022 7: 37 PM RESTORATION SILVERSMITH documented as of this encounter Medications at [...] on filedocumented in this encounter Care Teams Staff Midwife Relationship Specialty Start Date End Date Elsewhere, Pcp PCP - General Family Medicine 02/01/22 documented as of this encounter
--- OUTSIDE RECORDS SUMMARY | 2023-04-17 11:50 | XMS_ITS | Encounter Summary ---
Author Name Unknown Organization [facility] Address [address] [place] [address] Care Team Providers Care Fabric Pattern Grader Name Role Phone Elsewhere, Pcp Primary Care Provider Unavailabl e Encounter Details Date Type Department Care Team (Latest Contact Info) Description 04/25/2022 11:22 AM ASSISTANT PROFESSOR OF EDUCATION - 04/25/2022 11:59 PM ASSISTANT PROFESSOR OF EDUCATION Hospital Encounter Department of Radiation Oncology in [place], [place] [address] [place] [address] Tammie Hooks M.D., Ph.D. [address] [place] [address] Discharge Disposition: Home or Self Care Social [...] any clubs o r organizations such as jewish groups, unions, fraternal or athletic groups, or [...] heating? Not hard at all 01/24/2022 [facility] of Occupat ionky Health - Occupational Stress Questionnaire Answer Date [...] to sleep or slept in a senior care (including now)? No 01/24/2022 Nutrition Answer Date [...] Sex Assigned at Female 01/24/2022 7:37 PM ASSISTANT PROFESSOR OF EDUCATION Gender Identity Female 01/24/2022 7:37 PM ASSISTANT PROFESSOR OF EDUCATION Sexual Orientation Straight 01/24/2022 7: 37 PM ASSISTANT PROFESSOR OF EDUCATION documented as of this encounter Medications at [...] on filedocumented in this encounter Care Teams Fabric Pattern Grader Relationship Specialty Start Date End Date Elsewhere, Pcp PCP - General Family Medicine 02/01/22 documented as of this encounter
--- OUTSIDE RECORDS SUMMARY | 2023-04-17 11:50 | XMS_ITS | Encounter Summary ---
Author Name Unknown Organization [facility] Address [address] [place] [address] Care Team Providers Care Water Control Supervisor Name Role Phone Elsewhere, Pcp Primary Care Provider Unavailabl e Encounter Details Date Type Department Care Team (Latest Contact Info) Description 04/19/2022 11:32 AM PROGRAMMING ENGINEER - 04/19/2022 11:59 PM PROGRAMMING ENGINEER Hospital Encounter Department of Radiation Oncology in [place], [place] [address] [place] [address] Tammie Hooks M.D., Ph.D. [address] [place] [address] Discharge Disposition: Home or Self Care Social [...] [facility] [place] [facility] Occupat ionpr Health - Occupational Stress [...] place to sleep or slept in a skilled nursing (including now)? No 01/24/2022 Nutrition Answer Date [...] Sex Assigned at Female 01/24/2022 7:37 PM PROGRAMMING ENGINEER Gender Identity Female 01/24/2022 7:37 PM PROGRAMMING ENGINEER Sexual Orientation Straight 01/24/2022 7: 37 PM PROGRAMMING ENGINEER documented as of this encounter Medications [...] on filedocumented in this encounter Care Teams Water Control Supervisor Relationship Specialty Start Date End Date Elsewhere, Pcp PCP - General Family Medicine 02/01/22 documented as of this encounter
--- OUTSIDE RECORDS SUMMARY | 2023-04-17 11:50 | XMS_ITS | Encounter Summary ---
Author Name Unknown Organization [facility] Address [address] [place] [address] Care Team Providers Care Honeycomb Blanket Maker Name Role Phone Elsewhere, Pcp Primary Care Provider Unavailabl e Encounter Details Date Type Department Care Team (Latest Contact Info) Description 04/26/2022 10:03 AM ACETYLENE TORCH OPERATOR - 04/26/2022 11:59 PM ACETYLENE TORCH OPERATOR Hospital Encounter Department of Radiation Oncology in [place], [place] [address] [place] [address] Tammie Hooks M.D., Ph.D. [address] [place] [address] Discharge Disposition: Home or Self Care Social [...] often do you attend chur ch or episcopalian services? Never 01/24/2022 Do you belong to [...] and heating? Not hard at all 01/24/2022 [facility]at ionmo Health - Occupational Stress Questionnaire Answer Date [...] place to sleep or slept in a group home (including now)? No 01/24/2022 Nutrition Answer [...] Sex Assigned at Female 01/24/2022 7:37 PM ACETYLENE TORCH OPERATOR Gender Identity Female 01/24/2022 7:37 PM ACETYLENE TORCH OPERATOR Sexual Orientation Straight 01/24/2022 7: 37 PM ACETYLENE TORCH OPERATOR documented as of this encounter Medications at [...] on filedocumented in this encounter Care Teams Honeycomb Blanket Maker Relationship Specialty Start Date End Date Elsewhere, Pcp PCP - General Family Medicine 02/01/22 documented as of this encounter
--- OUTSIDE RECORDS SUMMARY | 2023-04-17 11:50 | XMS_ITS | Encounter Summary ---
Author Name Unknown Organization [facility] Address [address] [place] [address] Care Team Providers Care Supervisor Production Managing Name Role Phone Elsewhere, Pcp Primary Care Provider Unavailabl e Encounter Details Date Type Department Care Team (Latest Contact Info) Description 04/20/2022 11:20 AM CATERER HELPER - 04/20/2022 11:59 PM CATERER HELPER Hospital Encounter Department of Radiation Oncology in [place], [place] [address] [place] [address] Tammie Hooks M.D., Ph.D. [address] [place] [address] Discharge Disposition: Home or Self Care Social [...] often do you attend chur ch or pentecostalism services? Never 01/24/2022 Do you [...] heating? Not hard at all 01/24/2022 [facility] Occupat ionco Health - Occupational Stress Questionnaire Answer Date [...] Sex Assigned at Female 01/24/2022 7:37 PM CATERER HELPER Gender Identity Female 01/24/2022 7:37 PM CATERER HELPER Sexual Orientation Straight 01/24/2022 7: 37 PM CATERER HELPER documented as of this encounter Medications at [...] filedocumented in this encounter Care Teams Supervisor Production Managing Relationship Specialty Start Date End Date Elsewhere, Pcp PCP - General Family Medicine 02/01/22 documented as of this encounter
--- OUTSIDE RECORDS SUMMARY | 2023-04-17 11:50 | XMS_ITS | Encounter Summary ---
Author Name Unknown Organization [facility] Address [address] [place] [address] Care Team Providers Care Mock Up Builder Name Role Phone Elsewhere, Pcp Primary Care Provider Unavailabl e Reason for Referral * Physical Therapy (Routine) - Authorized Specialty Diagnoses / Procedures Referred By Contac t Referred To Contact Diagnoses Pain Shoulder Left Pain Shoulder Right Limitation Of Motion Shoulder Joint Left Limitation Of Motion Shoulder Joint Right Procedures PT Ongoing treatment Adeola Nunez M.D. [address] [place] [phone] [facility] Referral ID Status Reason Start Date Expiration Date V isits Requested Visits Authorized [id number] Authorized 04/26/2022 04/26/2023 99 99 ECTOR FINAL ASSEMBLY CONVEYOR LINE Reason for Visit * Physical Therapy (Routine) - Closed Specialty Diagnoses / Procedures Referred By Contac t Referred To Contact Diagnoses Pain Shoulder Left Pain Shoulder Right Limitation Of Motion Shoulder Joint Left Limitation Of Motion Shoulder Joint Right Procedures PT Ongoing treatment Adeola Nunez M.D. [address] [place] [phone] [facility] Referral ID Status Reason Start Date Expiration Date Visits Re quested Visits Authorized [id number] Closed 04/08/2022 04/08/2023 99 99 Encounter Details Date Type Department Care Team (Latest Contact Info) Description 04/26/2022 2:00 PM INSPECTOR FINAL ASSEMBLY CONVEYOR LINE Clinical Support Department of Physical Medicine and Rehabilitation in [place], [place] [address] [place] [address] Adeola Nunez M.D. [address] [place] [address] Jennifer Novoa P.T., T-HAM [address] [place] [address] Pain Shoulder Left; Pain Shoulder Right; Limitation [...] How often do you attend chur or restorationism services? Never 01/24/2022 Do you belong to any clubs o r organizations such as congregation groups, unions, fraternal or athletic groups, or [...] and heating? Not hard at all 01/24/2022 [facility] of Occupat ional Health - Occupational Stress [...] Sex Assigned at Female 01/24/2022 7:37 PM INSPECTOR FINAL ASSEMBLY CONVEYOR LINE Gender Identity Female 01/24/2022 7:37 PM INSPECTOR FINAL ASSEMBLY CONVEYOR LINE Sexual Orientation Straight 01/24/2022 7: 37 PM INSPECTOR FINAL ASSEMBLY CONVEYOR LINE documented as of this encounter Progress Notes * Jennifer Novoa, PNeyT., CLT-HAM - 04/26/2022 2:00 PM CST Physical Therapy Cancer Rehabilitation Outpatient Treatment Patient's Name: Veronica Guevara Referring Provider: Adeola Nunez M.D. Reason for referral: post-op bilateral shoulder pain and weakness, limited neck motion, neck lymphedema Veronica Guevara is a 76 y.o. female from [place], [place], seen for follow-up of post-op bilateral shoulder pain and weakness, neck tightness and lymphedema. SUBJECTIVE Patient reports her bilateral shoulders function has improved, less pain, on- going weakness, e.g., needs to lift right arm up reaching into cupboards above shoulder height. 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 Proton beam radiation (66 Gy, 30 fractions) pending completion on 04/29/22. Social: Patient is , accompanied by , Andre, today who remained in the lobby. OBJECTIVE General: Right-handed, thin physique. 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 Passive flexion supine R/L: 145 degrees. -superior medial scapula to spine (right/left) 10 cm/7 cm Strength: mild bilateral trapezial atrophy in the setting of marked shoulder depression (bra strapsslide down to AC joint bilaterally), shoulder weakness with mild right scapular winging present. Neck: mild right neck lymphedema superior to adhered incision line TREATMENT Home program Review: >Neck ROM (reviewed): rotation adding trunk rotation with hands in prayer position >Neck Lymphedema (reviewed/advanced): -manual techniques: gentle massage techniques -compression: continue Jobst fascioplasty (has soft abreu chip foam, *added soft abreu/orange combo foam pad) to reduce dermal fibrosis and swelling. Place ABD pad across scalp to protect open wound. Patient can wear 10-15 min to 22 hrs/day over the next 3-6 months as needed to address neck swelling and skin/soft tissue fibrosis. >Bilateral shoulder range of motion: -Supine shoulder flexion and pectoral stretching with use of pillow under head due to increased thoracic kyphosis, adding trunk rotation with knees in hook- lying position. -Doorway pectoral stretch -Overhead van exercise (reviewed, has van) for assisted painfree range of motion bilateral shoulders for flexion and abduction x 7-10 repetitions. >Bilateral Shoulder /Scapular Stabilization (reviewed/advanced): 3-5 reps, 1-3 sets, daily -Active Scapular Retraction: straight back. -Shoulder Shrugs: 1) straight up, then 2) up and back in diagonal adding scapular retraction -Over door van for assisted elevation adding gentle resistance both directions to activate scapular stabilizers -Resistance band (orange, Level 1, *trial of Level 2, pink increased scapular winging, provided, tostay at orange for now)(3-5 reps, 1-3 sets, 2-3 times/week): 1) Standing row, 2) Shoulder ER *Discussed with , Andre, need/expectation for him to assist lifting dishes/items in/out ofcupboards at and over height of shoulder; vacuuming, walking daughter's excitable puppy for the next 6 months or until further notice. :) Questions answered. Patient and , Andre, verbalized understanding and appreciative of intervention. Assessment post-op bilateral shoulder pain and weakness, limited neck motion, neck lymphedema Squamous cell carcinoma scalp, undergoing radiation therapy Veronica Guevara reports her shoulder pain has improved, on-going bilateral (R>L) shoulder weakness with marked bilateral shoulder depression with scapular protraction. Patient is independent in a home exercise program to address pain free shoulder range of motion, scapular stabilization exercises, neck range of motion, and neck lymphedema. Treatment Plan: Collaborate recheck in 3 months with other clinic appointments, sooner as needed. Jennifer Novoa P.T., CLT-LANA Start of Plan of Care: 04/08/22 Total Visit Count: 3 Number of Visits: up to 5 visits [...] Time Spent with Patient Therapeutic Interventions Therapeutic Exercise (min): 25 min Time Tracking Total Timed Units (min): 25 min Total Treatment Time (min): 25 min ECTOR FINAL ASSEMBLY CONVEYOR LINE documented in this encounter Plan of Treatment Not on file documented as of this encounter Visit Diagnoses Diagnosis Pain Shoulder Left Pain Shoulder Right Limitation Of Motion Shoulder Joint Left Limitation Of Motion Shoulder Joint Right documented in this encounter Care Teams Mock Up Builder Relationship Specialty Start Date End Date Elsewhere, Pcp PCP - General Family Medicine 02/01/22 documented as of this encounter
--- OUTSIDE RECORDS SUMMARY | 2023-04-17 11:50 | XMS_ITS | Encounter Summary ---
Author Name Unknown Organization [facility] Address [address] [place] [address] Care Team Providers Care Signal Integrity Engineer Name Role Phone Elsewhere, Pcp Primary Care Provider Unavailabl e Encounter Details Date Type Department Care Team (Latest Contact Info) Description 04/28/2022 11:05 AM NET PROGRAMMER ANALYST - 04/28/2022 12:14 PM NET PROGRAMMER ANALYST Hospital Encounter Department of Radiation Oncology in [place], [place] [address] [place] [address] Tammie Hooks M.D., Ph.D. [address] [place] [address] Discharge Disposition: Home or Self Care Social [...] often do you attend chur ch or jehovah's witness services? Never 01/24/2022 Do you belong to any clubs o r organizations such as muslim groups, unions, fraternal or athletic groups, or [...] and heating? Not hard at all 01/24/2022 [facility] Occupat iontx Health - Occupational Stress Questionnaire Answer Date [...] Sex Assigned at Female 01/24/2022 7:37 PM NET PROGRAMMER ANALYST Gender Identity Female 01/24/2022 7:37 PM NET PROGRAMMER ANALYST Sexual Orientation Straight 01/24/2022 7: 37 PM NET PROGRAMMER ANALYST documented as of this encounter Medications at [...] on filedocumented in this encounter Care Teams Signal Integrity Engineer Relationship Specialty Start Date End Date Elsewhere, Pcp PCP - General Family Medicine 02/01/22 documented as of this encounter
--- OUTSIDE RECORDS SUMMARY | 2023-04-17 11:51 | XMS_ITS | Encounter Summary ---
Author Name Unknown Organization [facility] Address [address] [place] [address] Care Team Providers Care Risk Mgr Name Role Phone Elsewhere, Pcp Primary Care Provider Unavailabl e Reason for Referral * Radiation Therapy (Routine) - Canceled Specialty Diagnoses / Procedures Referred By Contac t Referred To Contact Diagnoses Malignant Neoplasm Of Neck Squamous Cell Procedures Verification/Re-Sim Tammie Hooks M.D., Ph.D. [address] [place] [address] [facility] Referral ID Status Reason Start Date Expiration Date V isits Requested Visits Authorized [id number] Canceled 03/16/2022 03/16/2023 15 15 [employer] Reason for Visit * Radiation Therapy (Routine) - Canceled Specialty Diagnoses / Procedures Referred By Contac t Referred To Contact Diagnoses Malignant Neoplasm Of Neck Squamous Cell Procedures Verification/Re-Tammie Spain M.D., Ph.D. [address] [place] [address] [facility] Referral ID Status Reason Start Date Expiration Date V isits Requested Visits Authorized [id number] Canceled 03/16/2022 03/16/2023 15 15 Encounter Details Date Type Department Care Team (Latest Contact Info) Description 04/18/2022 11:30 AM [employer] - 04/18/2022 11:59 PM [employer]ING INTERNS[employer] Hospital Encounter Department of Radiation Oncology in [place], [place] [address] [place] [address] Tammie Hooks M.D., Ph.D. [address] [place] [address] Malignant Neoplasm Of Neck Squamous Cell Discharge [...] often do you attend chur ch or yarsanism services? Never 01/24/2022 Do you belong to any clubs o r organizations such as buddhist groups, unions, fraternal or athletic groups, or [...] and heating? Not hard at all 01/24/2022 [facility] of Occupat ional Health - [...] Sex Assigned at Female 01/24/2022 7:37 PM [employer] Gender Identity Female 01/24/2022 7:37 PM [employer] Sexual Orientation Straight 01/24/2022 7: 37 PM [employer] documented as of this encounter Medications at [...] Procedure Name Priority Date/Time Associated Diagnosis Comments VERIFICATION/RE-SIM Routine 04/18/2022 1 1:30 AM [employer] Malignant Neoplasm Of Neck Squamous Cell documented in this encounter Results * Verification/Re-Sim (04/18/2022 11:30 AM [employer]) Narrative MORE PAGAN - 04/18/2022 11:30 AM [employer] This exam does not require a oncologist review or interpretation. Please refer to the patient? s medical record on this date for clinical details. Tammie Hooks M.D., Ph.D. RADIATION O NCOLOGY ORDERABLES MORE ellis documented in this encounter Visit Diagnoses Diagnosis Malignant Neoplasm Of Neck Squamous Cell documented in this encounter Care Teams Risk Mgr Relationship Specialty Start Date End Date Elsewhere, Pcp PCP - General Family Medicine 02/01/22 documented as of this encounter
--- OUTSIDE RECORDS SUMMARY | 2023-04-17 11:51 | XMS_ITS | Encounter Summary ---
Author Name Unknown Organization [facility] Address [address] [place] [address] Care Team Providers Care Motor Vehicle Salesperson Name Role Phone Elsewhere, Pcp Primary Care Provider Unavailabl e Encounter Details Date Type Department Care Team (Latest Contact Info) Description 04/18/2022 11:30 AM ICE GUARD SKATING RINK - 04/18/2022 11:59 PM ICE GUARD SKATING RINK Hospital Encounter Department of Radiation Oncology in [place], [place] [address] [place] [address] Tammie Hooks M.D., Ph.D. [address] [place] [address] Discharge Disposition: Home or Self Care Social [...] often do you attend chur ch or pentecostal services? Never 01/24/2022 Do you [...] [facility] of Occupat ionme Health - Occupational Stress Questionnaire Answer Date [...] Sex Assigned at Female 01/24/2022 7:37 PM ICE GUARD SKATING RINK Gender Identity Female 01/24/2022 7:37 PM ICE GUARD SKATING RINK Sexual Orientation Straight 01/24/2022 7: 37 PM ICE GUARD SKATING RINK documented as of this encounter Medications at [...] on filedocumented in this encounter Care Teams Motor Vehicle Salesperson Relationship Specialty Start Date End Date Elsewhere, Pcp PCP - General Family Medicine 02/01/22 documented as of this encounter
== END 2023-04-17 07:56 | disposition home or self-care (01) ==
LOC: NFLDREF 11:38
PROVIDERS: PCP Family Medicine; Referring Provider Family Medicine; Visit Provider Family Medicine
DX: E03.9 Hypothyroidism, unspecified (principal); E55.9 Vitamin D deficiency, unspecified; E78.5 Hyperlipidemia, unspecified
CPT/HCPCS: 80053; 80061; 82306; 84443

== ENCOUNTER 2023-10-16 07:39 | Outpatient (CLI) | payer MEDICARE, OTHER, SELFPAY ==
--- OUTSIDE RECORDS SUMMARY | 2023-10-20 00:40 | XMS_ITS | Clinical Summary ---
Author Organization [facility] Address [address] [place] [address] Care Team Providers Care Regional Facilities Specialist Name Role Phone Elsewhere, Pcp Primary Care Provider Unavailabl e Source Comments Patient records contain information from all sites at [facility]. For routine questions regarding patient records, call [phone] during business hours, M-F 8:00 AM - 5:00 PM Central Time. Record requests for emergency care only can be directed to [phone] at any time.[facility] Allergies Active Allergy Reactions Criticality Noted Date Comments Penicillins Other (see comments) 01/19/2022 Family History of allergy but has never taken herself. Patient tolerated Duricef Pollen Extracts Itching 01/19/2022 Sulfa (Sulfonamide Antibiotics) Other (see comments) 01/19/2022 Medications Medication Sig Dispensed Refills Start Date End Date Status rosuvastatin (CRESTOR) 10 mg tablet Take 10 mg by mouth at bedtime. Active ubiquinone (COENZYME Q10) 100 mg tablet Take 100 mg by mouth daily. 12/22/2021 Active UNABLE TO FIND Take 1 each by mouth daily. Med Name: Collagen powder, 1 scoop every morning with cereal Active ketoconazole (NIZORAL) 2 % creamIndications: Dermatitis Seborrheic Apply 1 Application topically 2 (two) times a day as needed for rash or irritation. Apply to red, itchy areas on the central face and eyebrows as well as over the supragluteal cleft 60 g 11 12/21/2022 Active ketoconazole (NIZORAL) 2 % shampoo Apply [...] the face. 30 g 11 03/23/2023 Active methylcellulose, laxative, (CITRUCEL) 500 mg tablet Take by mouth daily. Heaping tablespoon in water once daily Active cholecalciferol, vitamin D3, (cholecalciferol) 25 mcg (1,000 Unit) tablet Take 25 mcg by mouth daily. Active levothyroxine (Synthroid) 50 mcg tablet Take 1 tablet (50 mcg total) by mouth daily. 90 tablet 3 08/16/2023 08/10/2024 Active multivitamin tablet Take 1 tablet by mouth daily. Currently has One-A-Day Men's 50 Plus. 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 07/28/2023 Malignant Neoplasm Of Neck Squamous Cell 022 Squamous Cell Carcinoma Of Skin Of Scalp And Nec k 01/26/2022 Overview (01/26/2022): Added automatically from request for surgery [id number] Amnesia 01/26/2022 Disorder Of The Skin And Subcutaneous Tissue Uns pecified 01/26/2022 Dry Eye Syndrome Right 01/26/2022 Dyslipidemia 01/26/2022 Fatigue 01/26/2022 Fatty Liver 01/26/2022 Gastroesophageal Reflux Disease 01/26/2022 Generalized Enlarged Lymph Nodes 01/26/2022 Hereditary And Idiopathic Neuropathy Unspecified 01/26/2022 Hyperlipidemia 01/26/2022 Microscopic Colitis Unspecified 01/26/2022 Nonrheumatic Aortic Valve Insufficiency 01/27/20 22 Osteoporosis 10/26/2020 Encounters Date Type Department Care Team Description 10/11/2023 3:30 PM CDT - 10/12/2023 10:05 AM CDT Hospital Encounter Department of Radiation Oncology in [place], [place] [address] [place] [phone] Tammie Hooks M.D., Ph.D. Squamous Cell Carcinoma Of Skin Of Scalp And Neck (Primary Dx) 10/11/2023 2:00 PM CDT Infusion Department of Oncology in [address] [phone] Blanche Monzon P.A.-C., M.S. Malignant Neoplasm Of Neck Squamous Cell (Primary Dx); Other Long-Term Current 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; Secondary Malignant Neoplasm Bone (HCC); Squamous Cell Carcinoma Of Skin Of Scalp And Neck 10/11/2023 1:00 PM CDT Office Visit Department of Oncology in [address] [phone] Remigio Frey M.D., Ph.D. Squamous Cell Carcinoma Of Skin Of Scalp And Neck (Primary Dx); Other Long-Term Current 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; Secondary Malignant Neoplasm Bone (HCC) 10/11/2023 7:41 AM CDT - 10/11/2023 3:29 PM CDT Hospital Encounter Department of Radiology, [facility] in [address] [phone] Blanche Monzon P.A.-C., M.S. Squamous Cell Carcinoma Of Skin Of Scalp And Neck; Secondary Malignant Neoplasm Bone (HCC); Other Long-Term Current 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 Discharge Disposition: Home or Self Care 10/11/2023 6:45 AM CDT - 10/11/2023 7:40 AM CDT Hospital Encounter Department of Radiology, [facility] in [place], [place] [address] [place] [phone] Blanche Monzon P.A.-C., M.S. Squamous Cell Carcinoma Of Skin Of Scalp And Neck; Secondary Malignant Neoplasm Bone (HCC); Other Long-Term Current 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 Discharge Disposition: Home or Self Care 10/09/2023 10:45 AM CDT Clinical Communication Virtual Review in [address] [phone] Blood Pressure 09/19/2023 2:00 PM CDT Infusion Department of Oncology in [place], [place] [address] [place] [phone] Blanche Moznon P.A.-C., M.S. Malignant Neoplasm Of Neck Squamous Cell (Primary Dx); Secondary Malignant Neoplasm Bone (HCC); Squamous Cell Carcinoma Of Skin Of Scalp And Neck; Other Long-Term Current 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 09/19/2023 1:00 PM CDT Office Visit Department of Oncology in [place], [place] [address] [place] [phone] Blanche Monzon P.A.-C., M.S. Squamous Cell Carcinoma Of Skin Of Scalp And Neck (Primary Dx); Secondary Malignant Neoplasm Bone (HCC); Other Long-Term Current 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 08/29/2023 2:30 PM CDT Infusion Department of Oncology in [place], [place] [address] [place] [phone] Blanche Monzon P.A.-C., M.S. 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 08/16/2023 Refill Department of Radiation Oncology in [place], [place] [address] [place] [phone] Tammie Hooks M.D., Ph.D. Med Refill 08/16/2023 Clinical Communication Department of Oncology in [place], [place] [address] [place] [phone] Tammie Adams R.N., O.C.N. Sx- foot vibration 08/08/2023 3:30 PM CDT Infusion Department of Oncology in [place], [place] [address] [place] [phone] Blanche Monzon P.A.-C., M.S. 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 Janette Arango R.Iggy. Secondary Malignant Neoplasm Bone (HCC); Squamous Cell Carcinoma Of Skin Of Scalp And Neck; Other Long-Term Current 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 08/08/2023 1:40 PM CDT Office Visit Department of Oncology in [place], [place] [address] [place] [phone] Blanche Monzon P.A.-C., M.S. Secondary Malignant Neoplasm Bone (HCC); Squamous Cell Carcinoma Of Skin Of Scalp And Neck; Other Long-Term Current 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 08/03/2023 12:36 PM CDT - 08/03/2023 3:18 PM CDT Hospital Encounter Department of Radiation Oncology in [place], [place] [address] [place] [phone] Tammie Hooks M.D., Ph.D. Secondary Malignant Neoplasm Bone (HCC) (Primary Dx); Malignant Neoplasm Of Neck Squamous Cell 07/28/2023 9:20 AM CDT Telemedicine Department of Oncology in [place], [place] [address] [place] [phone] Blanche Monzon P.A.-C., M.S. 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 Squamous Cell Carcinoma Of Skin Of Scalp And Neck; Malignant Neoplasm Of Neck Squamous Cell; Lesion Skull Discharge Disposition: Home or Self Care 07/24/2023 Orders Only Department of Oncology in [place], [place] [address] [place] [phone] Woody Navarro M.D. Squamous Cell Carcinoma Of Skin Of Scalp And Neck (Primary Dx); Malignant Neoplasm Of Neck Squamous Cell; Lesion Skull 07/20/2023 9:34 AM CDT - 07/20/2023 1:37 PM CDT Hospital Encounter Department of Radiology, [facility] in [place], [place] [address] [place] [address] Woody Navarro M.D. Morris, Padraig P, M.B., B.Ch. Malignant Neoplasm Of Neck Squamous Cell; Lesion Skull Discharge Disposition: Home or Self Care from Last 3 Months Family History Medical History Relation Name Comments Lung cancer Brother Lisa Toro Lung cancer Father Anselmo toro Dementia Maternal Grandmother Desirae Ugarte Tuberculosis Maternal Grandmother Desirae Ugarte Dementia Mother Lyric Palacio Dementia Sister Ani Toro Alcohol abuse Son [...] often do you attend chur ch or mu-ism services? Never 01/24/2022 Do you belong to [...] and heating? Not hard at all 09/02/2022 [facility] - Occupational Stress [...] living? No 02/16/2023 Nutrition Answer Date Recorded On average, how many serving s of fruits and vegetables do you eat per day (serving size is equal to 1 cup or approximately the size of a tennis ball)? 3-5 02/16/2023 Dental Answer Date Recorded Dental: Regular Dentist Yes 01/25/20 Employment Answer Date Recorded Employment status Retired 02/16/2023 Housing Stability Answer Date Recorded What is your living situation today? I have a [facility] place to live 02/16/2023 Education Answer Date Recorded What is the highest level of school you have completed or the highest degree you have received? Bachelor's degree (e.g., BA, AB, BS) 01/24/2022 Sex and Gender Information Value Date Recorded Sex Assigned at Female 01/24/2022 7:37 PM PHOTOENGRAVING HELPER Gender Identity Female 01/24/2022 7:37 PM PHOTOENGRAVING HELPER Sexual Orientation Straight 01/24/2022 7: 37 PM PHOTOENGRAVING HELPER Last Filed Vital Signs Vital Sign Reading Time Taken Comments Blood Pressure 126/70 10/11/2023 12:51 PM CDT Pulse 62 10/11/2023 12:51 PM CDT Temperature 36.2 ??C (97.2 ??F) 10/11/2023 12:51 PM C DT Respiratory Rate 17 10/11/2023 12:51 PM CDT Oxygen Saturation 97% 10/11/2023 12:51 PM CDT Inhaled Oxygen Concentration - - Weight 59.1 kg (130 lb 3.2 oz) 10/11/2023 4:12 P M CDT Height 162.6 cm (5' 4.02) 10/11/2023 12:51 PM C DT Body Mass Index 22.34 10/11/2023 12:51 PM CDT Plan of Treatment Upcoming Encounters Date Type Department Care Team (Late st Contact Info) Description 10/30/2023 11:00 AM CDT Clinical Communication Virtual Review in [place], [place] [address] [place] [phone] 11/01/2023 11:40 AM CDT Lab Department of Laboratory Medicine and Pathology, [facility], in [place], [place] [address] [place] [phone] Remigio Frey M.D., Ph.D. [address] [place] [phone] 11/01/2023 1:40 PM CDT Office Visit Department of Oncology in [place], [place] [address] [place] [phone] Blanche Monzon P.A.-C., M.S. [address] [place] [phone] 11/01/2023 2:45 PM CDT Infusion Department of Oncology in [place], [place] [address] [place] [phone] Remigio Frey M.D., Ph.D. [address] [place] [phone] 11/08/2023 9:45 AM CDT Clinical Communication Virtual Review in [address] [phone] 11/10/2023 8:00 AM CDT Office Visit Department of Dermatology in [address] [phone] Emily Bell M.D. [address] [place] [phone] 11/17/2023 11:00 AM CDT Clinical Communication Virtual Review in [place], [place] [address] [place] [address] 11/21/2023 11:10 AM CDT Lab Department of Laboratory Medicine and Pathology, [facility], in [place], [place] [address] [place] [phone] Remigio Frey M.D., Ph.D. [address] [place] [phone] 11/21/2023 1:00 PM CDT Office Visit Department of Oncology in [place], [place] [address] [place] [phone] Mc Mcknight M.D., Ph.D. [address] [place] [phone] 11/21/2023 2:15 PM CDT Infusion Department of Oncology in [place], [place] [address] [place] [phone] Remigio Frey M.D., Ph.D. [address] [place] [phone] 12/11/2023 1:45 PM CDT Clinical Communication Virtual Review in [address] [phone] 12/12/2023 11:00 AM CDT Lab Department of Laboratory Medicine and Pathology, [facility], in [place], [place] [address] [place] [phone] Remigio Frey M.D., Ph.D. [address] [place] [phone] 12/12/2023 1:00 PM CDT Office Visit Department of Oncology in [place], [place] [address] [place] [phone] Mc Mcknight M.D., Ph.D. [address] [place] [phone] 12/12/2023 3:00 PM CDT Infusion Department of Oncology in [place], [place] [address] [place] [phone] Remigio Frey M.D., Ph.D. [address] [place] [phone] 01/17/2024 9:00 AM PHOTOENGRAVING HELPER Clinical Communication Virtual Review in [place], [place] [address] [place] [phone] 01/19/2024 2:30 PM PHOTOENGRAVING HELPER Comprehensive Visit Department of Neurology in [place], [place] [address] [place] [phone] Kory Alas M.B., Ch.B. [address] [place] [phone] Health Maintenance Due Date Last Done Comments Hepatitis C Screening 1945 Depression Screening (Annual PHQ-2) 03/06/2023 Influenza Vaccine (#1) 2023 , 12/22/2021, 12/28/2020, Additional history exists Thyroid Stimulating Hormone (TSH) test for thyroid function 10/10/2024 10/11/2023, 09/19/2023, 08/29/2023, Additional history exists DTaP,Tdap,and Td Vaccines (3 - Td or Tdap) 11/23/2032 11/23/2022, 12/21/2012, 03/05/1990 Pneumococcal vaccine (65+ years) Completed 07/16/2014, 05/18/2011 Zoster Vaccines Completed 04/17/2023, 11/05, 02/04/2012 Fall Risk Screen (Annual) Completed 07/27/2023 COVID-19 Vaccine Completed 08/16/2023, , 02/21/2022, Additional history exists HPV Vaccines Aged Out No longer eligi ble based on patient's age to complete this topic Medical Devices Implanted Type Area Unit Nurse Device Identifier Shelf Expiration Date Model / Serial / Lot Hardware E.G. Pins/Screws/Ro ds Hardware e.g. 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 CT ABDOMEN PELVIS WITH IV CONTRAST RAD - Routine (most inpatients and all outpatients) 10/11/2023 7:40 AM CDT Squamous Cell Carcinoma Of Skin Of Scalp And Neck Secondary Malignant Neoplasm Bone (HCC) Other Long-Term Current 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 CT CHEST WITH IV CONTRAST RAD - Routine (most inpatients and all outpatients) 10/11/2023 7:40 AM CDT Squamous Cell Carcinoma Of Skin Of Scalp And Neck Secondary Malignant Neoplasm Bone (HCC) Other Long-Term Current 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 CT NECK SOFT TISSUE WITH IV CONTRAST RAD - Routine (most inpatients and all outpatients) 10/11/2023 7:40 AM CDT Squamous Cell Carcinoma Of Skin Of Scalp And Neck Secondary Malignant Neoplasm Bone (HCC) Other Long-Term Current 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 THYROID FUNCTION CASCADE, S Routine 10/11/2023 6:41 AM CDT Other Long-Term Current 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 BILIRUBIN DIRECT, S/P Routine 10/11/2023 6:41 AM CDT 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 COMPREHENSIVE METABOLIC PANEL, S/P Routine 10/11/2023 6:41 AM CDT 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 CBC WITH DIFFERENTIAL, B Routine 10/11/2023 6:41 AM CDT 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 THYROID FUNCTION CASCADE, S Routine 09/19/2023 10:57 AM CDT 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 Other Long-Term Current 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 BILIRUBIN DIRECT, S/P Routine 09/19/2023 10:57 AM CDT 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 COMPREHENSIVE METABOLIC PANEL, S/P Routine 09/19/2023 10:57 AM CDT 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 Other Long-Term Current 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 CBC WITH DIFFERENTIAL, B Routine 09/19/2023 10:57 AM CDT 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 THYROID FUNCTION CASCADE, S Routine 08/29/2023 11:30 AM CDT 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 Other Long-Term Current 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 BILIRUBIN DIRECT, S/P Routine 08/29/2023 11:30 AM CDT 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 COMPREHENSIVE METABOLIC PANEL, S/P Routine 08/29/2023 11:30 AM CDT 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 Other Long-Term Current 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 CBC WITH DIFFERENTIAL, B Routine 08/29/2023 11:30 AM CDT 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 Other Long-Term Current 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 THYROID FUNCTION CASCADE, S Routine 08/08/2023 11:12 AM CDT 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 BILIRUBIN DIRECT, S/P Routine 08/08/2023 11:12 AM CDT 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 Other Long-Term Current 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 COMPREHENSIVE METABOLIC PANEL, S/P Routine 08/08/2023 11:12 AM CDT 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 Other Long-Term Current 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 CBC WITH DIFFERENTIAL, B Routine 08/08/2023 11:12 AM CDT 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 MR BRAIN WITHOUT AND WITH IV CONTRAST RAD - Routine (most inpatients and all outpatients) 07/27/2023 1:11 PM CDT Squamous Cell Carcinoma Of Skin Of Scalp And Neck Malignant Neoplasm Of Neck Squamous Cell Lesion Skull CT NEURO HEAD NECK FACE BIOPSY RAD - Routine (most inpatients and all outpatients) 07/20/2023 12:51 PM CDT Malignant Neoplasm Of Neck Squamous Cell Lesion Skull CYTOLOGY FINE NEEDLE ASPIRATION (INCLUDES CORE BIOPSIES Routine 07/20/2023 11:32 AM CDT Malignant Neoplasm Of Neck Squamous Cell Lesion Skull ACTIVATED PARTIAL THROMBOPLASTIN TIME (APTT), P Routine 07/20/2023 8:07 AM CDT Lesion Skull Malignant Neoplasm Of Neck Squamous Cell PROTHROMBIN TIME (PT), P Routine 07/20/2023 8:07 AM CDT Lesion Skull Malignant Neoplasm Of Neck Squamous Cell from Last 3 Months Results * MR Brain without and with IV Contrast (10/11/2023 8:50 AM CDT) Only the most recent of2 resultswithin the time period is included. Anatomical Region Laterality Modality Head, Brain, Neuroradiology RST LOS, Neuroradiology ARZ LOS, Neuroradiology FLA LOS N/A Magnetic Resonance Impressions 10/11/2023 10:22 AM CDT 1. Redemonstrated enhancing right parietal occipital calvarial lesion, overall stable when compared to the recent MRI study. No new enhancing calvarial lesions. 2. Previously noted focus of subcutaneous soft tissue enhancement over the left parietal region is stable in the interim. 3. Flat focus of enhancement involving the subcutaneous soft tissues along the vertex in the midline is more prominent in the interim. This however remains nonspecific. Suggest correlation with direct visualization. Narrative 10/11/2023 10:22 AM CDT EXAM: MR BRAIN WITHOUT AND WITH IV CONTRAST COMPARISON: Prior MRI studies dated 07/27/2023 and 01/11/2023 FINDINGS: Redemonstrated enhancing lesion along the right parieto-occipital calvarium (16-121), currently measuring about 1.5 x 0.7 cm in maximal axial dimensions when compared with 1.4 x 0.8 cm previously. Stable nonspecific calvarial focus of enhancement along the right parietal region (16-169). No new enhancing calvarial lesions. Mild T1 hypointense left greater than right paramedian parietal marrow signal change, similar when compared to the prior study and overall less prominent when compared to the MRI study from 01/11/2023. Similar scattered areas of scalp thinning bilaterally. Previously noted focus of subcutaneous soft tissue enhancement over the left parietal region (16-163) is stable in the interim. Additional nonspecific focus of enhancement involving the subcutaneous soft tissues along the vertex in the midline (16-172) is more prominent in the interim. No associated soft tissue nodularity. There is no evidence of any acute intracranial bleed, vascular distribution infarct or significant mass effect. There is no midline shift or hydrocephalus. Scattered mild bilateral periventricular and subcortical leukoaraiosis. Mild generalized ?? parenchymal involution and ex vacuo prominence of the ventricular system. No abnormal parenchymal or leptomeningeal enhancement. Major intracranial vascular flow voids are preserved. Bilateral pseudophakia. Minor mucosal thickening along bilateral ethmoid sinuses. Bilateral mastoid air cells are clear. Procedure Note Juma Lennon M.B.B.S., M.MED. - 10/11/2023 EXAM: MR BRAIN WITHOUT AND WITH IV CONTRAST COMPARISON: Prior MRI studies dated 07/27/2023 and 01/11/2023 FINDINGS: Redemonstrated enhancing lesion along the rightparieto-occipital calvarium (16-121), currently measuring about 1.5 x 0.7cm in maximal axial dimensions when compared with 1.4 x 0.8 cm previously.Stable nonspecific calvarial focus of enhancement along the right parietal region (16-169). No new enhancingcalvarial lesions. Mild T1 hypointense left greater than right paramedianparietal marrow signal change, similar when compared to the prior studyand overall less prominent when compared to the MRI study from 01/11/2023. Similar scattered areas of scalp thinning bilaterally. Previously notedfocus of subcutaneous soft tissue enhancement over the left parietalregion (16-163) is stable in the interim. Additional nonspecific focus ofenhancement involving the subcutaneous soft tissues along the vertex in the midline (16-172) is more prominent inthe interim. No associated soft tissue nodularity. There is no evidence of any acute intracranial bleed, vasculardistribution infarct or significant mass effect. There is no midline shiftor hydrocephalus. Scattered mild bilateral periventricular and subcorticalleukoaraiosis. Mild generalized parenchymal involution and ex vacuo prominence of the ventricular system.No abnormal parenchymal or leptomeningeal enhancement. Major intracranialvascular flow voids are preserved. Bilateral pseudophakia. Minor mucosalthickening along bilateral ethmoid sinuses. Bilateral mastoid air cells are clear. IMPRESSION: 1. Redemonstrated enhancing right parietal occipital calvarial lesion,overall stable when compared to the recent MRI study. No new enhancingcalvarial lesions. 2. Previously noted focus of subcutaneous soft tissue enhancement over theleft parietal region is stable in the interim. 3. Flat focus of enhancement involving the subcutaneous soft tissues alongthe vertex in the midline is more prominent in the interim. This howeverremains nonspecific. Suggest correlation with direct visualization. Blanche Monzon P.A.-C., M.S. [facility] MRI PROCEDURES * CT Abdomen Pelvis with IV Contrast (10/11/2023 7:40 AM CDT) Anatomical Region Laterality Modality Abdomen, Pelvis, Abdominal R ST LOS, Abdominal ARZ LOS, Abdominal FLA LOS N/A Computed Tomograp hy, Computed Tomography 10/11/2023 7:30 AM CDT Impressions 10/11/2023 8:02 AM CDT No evidence of metastatic disease in the abdomen or pelvis. Narrative 10/11/2023 8:02 AM CDT EXAM: ??CT ABDOMEN PELVIS WITH IV CONTRAST COMPARISON: ??CT abdomen pelvis 07/24/2023. FINDINGS: ??No suspicious liver lesion. Unchanged hypodense lesions in the liver that are likely cysts and/or hemangiomas. No abnormal biliary dilatation. Patent hepatic vasculature. Normal gallbladder, spleen, pancreas, adrenal glands. Bilateral renal cysts. Small esophageal hiatal hernia. Colonic diverticulosis. Hysterectomy. Normal urinary bladder. No abdominopelvic lymphadenopathy or ascites. Diffuse aortic atherosclerosis with infrarenal aorta measuring up to 21 mm in diameter. Atherosclerotic plaque causing narrowing of the TAMI ostium. Tiny fat-containing umbilical hernia. Degenerative changes of the spine. This examination was performed in conjunction with a CT of the chest and neck, which will be reported separately. Procedure Note Laura Waters M.D. - 10/11/2023 EXAM: CT ABDOMEN PELVIS WITH IV CONTRAST COMPARISON: CT abdomen pelvis 07/24/2023. FINDINGS: No suspicious liver lesion. Unchanged hypodense lesions in theliver that are likely cysts and/or hemangiomas. No abnormal biliarydilatation. Patent hepatic vasculature. Normal gallbladder, spleen, pancreas, adrenal glands. Bilateral renalcysts. Small esophageal hiatal hernia. Colonic diverticulosis.Hysterectomy. Normal urinary bladder. No abdominopelvic lymphadenopathy or ascites. Diffuse aortic atherosclerosis with infrarenal aorta measuring up to 21 mmin diameter. Atherosclerotic plaque causing narrowing of the TAMI ostium. Tiny fat-containing umbilical hernia. Degenerative changes of the spine. This examination was performed in conjunction with a CT of the chest andneck, which will be reported separately. IMPRESSION: No evidence of metastatic disease in the abdomen or pelvis. Blanche Monzon P.A.-C., M.S. IMG CT P ROCEDURES * CT Chest with IV Contrast (10/11/2023 7:40 AM CDT) Anatomical Region Laterality Modality Chest, Thoracic RST LOS, Tho racic ARZ LOS, Thoracic ARZ LOS, Thoracic FLA LOS N/A Computed Tomography, Compute d Tomography 10/11/2023 7:31 AM CDT Impressions 10/11/2023 8:02 AM CDT 1. ??Indeterminate left lower lobe pulmonary micronodule. 2. ??Basilar predominant reticulation and groundglass opacity, likely chronic. Imaging pattern is suggestive of interstitial lung disease. Narrative 10/11/2023 8:02 AM CDT EXAM: CT CHEST WITH IV CONTRAST COMPARISON: 07/14/2023 FINDINGS: This examination was performed in conjunction with a CT of the abdomen, which will be reported separately. A sub-3 mm left lower lobe nodule resides in a region previously obscured by atelectasis (3/433). Stable 2-3 mm right upper lobe nodule (3/132). Stable 4 mm nodule in the central left upper lobe (3/297). Basilar predominant peripheral reticulation and groundglass opacity has shifted, likely due to difference in lung volumes. Biapical scarring. No suspicious osseous lesion. No bulky thoracic lymphadenopathy. No pleural effusion. Small hiatal hernia. Qualitatively dilated right heart chambers. Mild coronary calcification. Procedure Note Charly Salgado M.D. - 10/11/2023 EXAM: CT CHEST WITH IV CONTRAST COMPARISON: 07/14/2023 FINDINGS: This examination was performed in conjunction with a CT of the abdomen,which will be reported separately. A sub-3 mm left lower lobe nodule resides in a region previously obscuredby atelectasis (3/433). Stable 2-3 mm right upper lobe nodule (3/132).Stable 4 mm nodule in the central left upper lobe (3/297). Basilarpredominant peripheral reticulation and groundglass opacity has shifted, likely due to difference in lung volumes.Biapical scarring. No suspicious osseous lesion. No bulky thoracic lymphadenopathy. Nopleural effusion. Small hiatal hernia. Qualitatively dilated right heartchambers. Mild coronary calcification. IMPRESSION: 1. Indeterminate left lower lobe pulmonary micronodule. 2. Basilar predominant reticulation and groundglass opacity, likelychronic. Imaging pattern is suggestive of interstitial lung disease. Blanche Monzon P.A.-C., M.S. IMG CT P ROCEDURES * CT Neck Soft Tissue with IV Contrast (10/11/2023 7:40 AM CDT) Anatomical Region Laterality Modality Neck, Neuroradiology RST LOS , Neuroradiology ARZ [facility], Neuroradiology FLA [facility] N/A Computed Tomography, Compute d Tomography 10/11/2023 7:31 AM CDT Impressions 10/11/2023 10:25 AM CDT Interval increase in size of a right level Ib lymph node which remains within normal limits for size and may be reactive but is technically nonspecific. Otherwise, no cervical lymphadenopathy or soft tissue mass. Narrative 10/11/2023 10:25 AM CDT EXAM: CT NECK SOFT TISSUE WITH IV CONTRAST COMPARISON: CT neck with IV contrast dated 07/14/2023. 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 Increase in size of a right parieto-occipital calvarial lesion noted on imaging studies in July 2023. Initiation of cemiplimab on 08/08/2023. FINDINGS: Since 07/14/2023, increase in size of a right level Ib lymph node (series 3 image 57), measuring up to 9 mm on today's exam compared with 7 mm previously. Although this may be reactive, but is technically indeterminant. Otherwise, bilateral cervical lymph nodes appear stable in size without enlargement by size criteria. Stable posttreatment changes in the neck including ill-defined soft tissue thickening and stranding. Multiple retention cysts of the lateral limb tonsils. Multiple tiny bilateral thyroid nodules. Mild scattered atheromatous plaque within the bilateral cervical arterial system without significant luminal narrowing. Bilateral pseudophakia. Exam was performed in conjunction with a CT of the chest as well as a CT of the abdomen and pelvis which will be reported separately. Procedure Note Esequiel Bloom M.D. - 10/11/2023 EXAM: CT NECK SOFT TISSUE WITH IV CONTRAST COMPARISON: CT neck with IV contrast dated 07/14/2023. CLINICAL HISTORY: History of poorly differentiated squamous cell carcinomaof the scalp vertex with metastatic disease involving a left level V lymphnode status post wide local excision and bilateral neck dissection on02/01/2022 with adjuvant radiation therapy (completed on 04/29/2022). Increase in size of a rightparieto-occipital calvarial lesion noted on imaging studies in July 2023.Initiation of cemiplimab on 08/08/2023. FINDINGS: Since 07/14/2023, increase in size of a right level Ib lymph node(series 3 image 57), measuring up to 9 mm on today's exam compared with 7mm previously. Although this may be reactive, but is technicallyindeterminant. Otherwise, bilateral cervical lymph nodes appear stable in size without enlargement by sizecriteria. Stable posttreatment changes in the neck including ill-definedsoft tissue thickening and stranding. Multiple retention cysts of thelateral limb tonsils. Multiple tiny bilateral thyroid nodules. Mild scattered atheromatous plaque within thebilateral cervical arterial system without significant luminal narrowing.Bilateral pseudophakia. Exam was performed in conjunction with a CT of the chest as well as a CTof the abdomen and pelvis which will be reported separately. IMPRESSION: Interval increase in size of a right level Ib lymph node which remainswithin normal limits for size and may be reactive but is technicallynonspecific. Otherwise, no cervical lymphadenopathy or soft tissue mass. Blanche Monzon P.A.-C., M.S. IMG CT P ROCEDURES * Thyroid Function [place] (10/11/2023 6:41 AM CDT) Only the most recent of4 resultswithin the time period is included. TSH, Sensitive 3.9 0.3 - 4.2 mIU/L 10/11/2023 7:51 AM CDT DTL Blood (Blood, Venous) 10/11/2023 6:41 AM CDT 10/11/2023 7:20 AM CDT Blanche Monzon P.A.-C., M.S. LAB BLOO D ADD-ON [facility] [address] [place] [address], [place] DTL [facility] [address] [place] [address] * (ABNORMAL) CBC with Differential, Blood (10/11/2023 6:41 AM CDT) Only the most recent of4 resultswithin the time period is included. Hemoglobin 13.0 11.6 - 15.0 g/dL 10/11/2023 7:19 AM CDT DTL Hematocrit 40.5 35.5 - 44.9 % 10/11/2023 7:19 AM CDT DTL Erythrocytes 4.53 3.92 - 5.13 x10(12)/L 10/11/2023 7:19 AM CDT DTL MCV 89.4 78.2 - 97.9 fL 10/11/2023 7:19 AM CDT DTL RBC Distrib Width 12.6 12.2 - 16.1 % 10/11/2023 7:19 AM CDT DTL Platelet Count 224 157 - 371 x10(9)/L 10/11/2023 7:19 AM CDT DTL Leukocytes 3.3(L) 3.4 - 9.6 x10(9)/L 10/11/2023 7:19 AM CDT DTL Neutrophils 2.10 1.56 - 6.45 x10(9)/L 10/11/2023 7:19 AM CDT DHPM Lymphocytes 0.64(L) 0.95 - 3.07 x10(9)/L 10/11/2023 7:19 AM CDT DTL Monocytes 0.40 0.26 - 0.81 x10(9)/L 10/11/2023 7:19 AM CDT DTL Eosinophils 0.15 0.03 - 0.48 x10(9)/L 10/11/2023 7:19 AM CDT DTL Basophils <0.03 0.01 - 0.08 x10(9)/L 10/11/2023 7:19 AM CDT DTL Blood (Blood, Venous) 10/11/2023 6:41 AM CDT 10/11/2023 7:05 AM CDT Blanche Monzon P.A.-C., M.S. LAB BLOO D ADD-ON [facility] [address] [place] [address], [facility] [address] [place] [address] [facility] [address] [place] [address] * Bilirubin, Direct (10/11/2023 6:41 AM CDT) Only the most recent of4 resultswithin the time period is included. [facility] Bilirubin, Direct, S <0.2 0.0 - 0.3 mg/dL 10/11/2023 7:51 AM CDT DTL Blood (Blood, Venous) 10/11/2023 6:41 AM CDT 10/11/2023 7:20 AM CDT Blanche Monzon P.A.-C., M.S. LAB BLOO D ADD-ON [facility] [address] [place], [place] [address] [address] [place] [address] * Comprehensive Metabolic Panel (10/11/2023 6:41 AM CDT) Only the most recent of4 resultswithin the time period is included. [facility] Potassium, S 4.0 3.6 - 5.2 mmol/L 10/11/2023 7:51 AM CDT DTL Sodium, S 143 135 - 145 mmol/L 10/11/2023 7:51 AM CDT DTL Chloride, S 105 98 - 107 mmol/L 10/11/2023 7:51 AM CDT DTL Bicarbonate, S 28 22 - 29 mmol/L 10/11/2023 7:51 AM CDT DTL Anion Gap 10 7 - 15 10/11/2023 7:51 AM CDT DTL BUN (Blood Urea Nitrogen), S 14 6 - 21 mg/dL 10/11/2023 7:51 AM CDT DTL Creatinine 0.74 0.59 - 1.04 mg/dL 10/11/2023 7:51 AM CDT DTL Estimated GFR (eGFR) 83 >=60 mL/min/BS A 10/11/2023 7:51 AM CDT DTL Comment: Estimated GFR calculated using the 2020 CKD_EPI creatinine equation. Calcium, Total, S 9.6 8.8 - 10.2 mg/dL 10/11/2023 7:51 AM CDT DTL Glucose, S 99 70 - 140 mg/dL 10/11/2023 7:51 AM CDT DTL Protein, Total, S 7.0 6.3 - 7.9 g/dL 10/11/2023 7:51 AM CDT DTL Albumin, S 4.6 3.5 - 5.0 g/dL 10/11/2023 7:51 AM CDT DTL Aspartate Aminotransferase (AST), S 41 8 - 43 U/L 10/11/2023 7:51 AM CDT DTL Alkaline Phosphatase, S 101 35 - 104 U/L 10/11/2023 7:51 AM CDT DTL Alanine Aminotransferase (ALT), S 28 7 - 45 U/L 10/11/2023 7:51 AM CDT DTL Bilirubin, Total, S 0.4 0.0 - 1.2 mg/dL 10/11/2023 7:51 AM CDT DTL Blood (Blood, Venous) 10/11/2023 6:41 AM CDT 10/11/2023 7:20 AM CDT Blanche oMnzon P.A.-C. M.S. LAB BLOO D ADD-ON [facility] [address] [place] [address], [facility] [address] [place] [address] * CT Neuro Head Neck Face Biopsy (07/20/2023 12:51 PM CDT) Anatomical Region Laterality Modality Neuroradiology ARZ LOS, Neur oradiology FLA LOS, Procedural, Neuroradiology RST LOS, Procedural NWWI LOS N/A Computed Tomography, Compute d Tomography 07/20/2023 11:5 2 AM CDT Impressions 07/20/2023 2:[address]-guided right parieto-occipital calvarial lesion biopsy. EP Narrative 07/20/2023 2:34 PM CDT EXAM: CT NEURO HEAD NECK FACE BIOPSY COMPARISON: Head CT 07/14/2023 PREPROCEDURE: Patient seen, evaluated, history reviewed, and approved for sedation. Airway, heart, and lung exam satisfactory for sedation. Discussed risks, benefits, alternatives for procedure, and/or sedation. The roles and responsibilities of care team members, residents, and fellows were discussed. Patient understands information and questions answered. Informed consent obtained from the patient. Immediately prior to starting the procedure, in the presence of the assisting personnel, a procedural pause was conducted to verify correct patient identity and verification of procedure to be performed, and as applicable, correct side and site, correct patient position, availability of implants, special equipment, or special requirements, and all image and specimen identification data. INTRAPROCEDURE: Moderate sedation was administered by sedation nurse under my supervision. The patient was continuously monitored with real time oxygen saturation, heart rate, ECG rhythm strip and blood pressure throughout administration of the sedation and performance of the procedure. The total intra-procedural sedation time was: 49 minutes. TECHNIQUE: Sterile;1% lidocaine for local anesthesia and CT Guidance, initial positioning and placement of local anesthesia was incorrect due to technical issue and was subsequently corrected with repositioning and rescouting. Under CT guidance, a 14-gauge Bonopty coaxial introducer needle was carefully advanced into right parieto-occipital calvarial lesion. Biopsy needle was carefully advanced to the target location, biopsies obtained with 18-gauge Franseen needle, specimens were obtained and sent for lab analysis. Needle removed and local pressure held until bleeding subsided. Sterile dressing applied. Patient tolerated the procedure well. No immediate complications. ?? TARGET LOCATION: Right parieto-occipital calvarium TARGET LESION SIZE: 13 mm BIOPSY INSTRUMENT: 18-gauge Franseen soft tissue needle and 14-gauge Bonopty coaxial bone biopsy system. NUMBER OF SAMPLES OBTAINED: 5 COMPLICATION: None ? BLOOD LOSS: Minimal. PATIENT INSTRUCTIONS: Patient may be dismissed from the radiology department when dismissal criteria met. POST-PROCEDURE DIAGNOSIS: Calvarial lesion Imaging findings: Post procedural noncontrast enhanced brain CT obtained demonstrates no acute intracranial hemorrhage or other acute intracranial finding. Procedure Note Katherine Castillo M.B., B.. - 07/20/2023 EXAM: CT NEURO HEAD NECK FACE BIOPSY COMPARISON: Head CT 07/14/2023 PREPROCEDURE: Patient seen, evaluated, history reviewed, and approved forsedation. Airway, heart, and lung exam satisfactory for sedation.Discussed risks, benefits, alternatives for procedure, and/or sedation.The roles and responsibilities of care team members, residents, and fellows were discussed. Patient understandsinformation and questions answered. Informed consent obtained from thepatient. Immediately prior to starting the procedure, in the presence ofthe assisting personnel, a procedural pause was conducted to verify correct patient identity and verificationof procedure to be performed, and as applicable, correct side and site,correct patient position, availability of implants, special equipment, orspecial requirements, and all image and specimen identification data. INTRAPROCEDURE: Moderate sedation was administered by sedation nurse undermy supervision. The patient was continuously monitored with real timeoxygen saturation, heart rate, ECG rhythm strip and blood pressurethroughout administration of the sedation and performance of the procedure. The total intra-procedural sedation timewas: 49 minutes. TECHNIQUE: Sterile;1% lidocaine for local anesthesia and CT Guidance,initial positioning and placement of local anesthesia was incorrect due totechnical issue and was subsequently corrected with repositioning andrescouting. Under CT guidance, a 14-gauge Bonopty coaxial introducer needle was carefully advanced intoright parieto-occipital calvarial lesion. Biopsy needle was carefullyadvanced to the target location, biopsies obtained with 18-gauge Franseenneedle, specimens were obtained and sent for lab analysis. Needle removed and local pressure held untilbleeding subsided. Sterile dressing applied. Patient tolerated theprocedure well. No immediate complications. TARGET LOCATION: Right parieto-occipital calvarium TARGET LESION SIZE: 13 mm BIOPSY INSTRUMENT: 18-gauge Franseen soft tissue needle and 14-gaugeBonopty coaxial bone biopsy system. NUMBER OF SAMPLES OBTAINED: 5 COMPLICATION: None BLOOD LOSS: Minimal. PATIENT INSTRUCTIONS: Patient may be dismissed from the radiologydepartment when dismissal criteria met. POST-PROCEDURE DIAGNOSIS: Calvarial lesion Imaging findings: Post procedural noncontrast enhanced brain CT obtaineddemonstrates no acute intracranial hemorrhage or other acute intracranialfinding. IMPRESSION: CT-guided right parieto-occipital calvarial lesion biopsy. EP Woody Navarro M.D. IMG CT PROCEDUR ES * (ABNORMAL) Cytology Fine Needle Aspiration (including core biopsies) (07/20/2023 11:32 AM CDT) (A) 07/21/2023 4:40 PM CDT DTL Participated in the Interpretation Italo Gilbert, B.Ch.-Pathology Fellow(A) 07/21/2023 4:40 PM CDT DTL Report electronically signed by Natacha Hoover M.D. I verify that I have examined all relevant slides/materials for the specimen(s) and rendered or confirmed the diagnosis. (A) 07/21/2023 4:40 PM CDT DTL Gross Description Received 6 alcohol-fixed smears and tissue. Additionally, received in formalin labeled with the patient's name, medical record number and skull lesion are eight pale wall-pink irregularsoft tissues, ranging from 0.1-0.2 cm in greatest dimension. ??The specimens are submitted en toto in cassette A1. ??Grossed by [facility] (A) 07/21/2023 4:40 PM CDT DTL Source A. Soft Tissue, Skull lesion, fine needle aspiration(A) 07/21/2023 4:40 PM CDT DTL Interpretation A. Soft Tissue, Skull lesion, fine needle aspiration (smears/core biopsy): Atypical. ?Superficial fragments of keratinous debris. ??No intact tissue is identified. ??A definitive diagnosis is not possible on the current specimen. (A) 07/21/2023 4:40 PM CDT DTL Biopsy (Skull/Cranium) 07/20/2023 11:32 AM CDT Woody Navarro M.D. LAB SURG PATH O RDERABLES [facility] [address] [place] [address], [facility] DTL [address] [place] [address] * APTT (Activated Partial Thromboplastin Time) (07/20/2023 8:07 AM CDT) Activated Partial Thrombopl Time, P 30 25 - 37 sec 07/20/2023 8:58 AM CDT DTL Blood (Blood, Venous) 07/20/2023 8:07 AM CDT 07/20/2023 8:38 AM CDT Woody Navarro M.D. LAB BLOOD ADD-O N Performing Organization Address [facility] Co de Phone Number [facility] [address] [place] [address], [facility] [address] [place] [address] * Prothrombin Time (PT) (07/20/2023 8:07 AM CDT) Prothrombin Time, P 10.5 9.4 - 12.5 sec 07/20/2023 8:58 AM CDT DTL INR 1.0 0.9 - 1.1 07/20/2023 8:58 AM CDT DTL Comment: ----ADDITIONAL INFORMATION---- Standard intensity warfarin therapeutic range: 2.0 to 3.0 ?? High intensity warfarin therapeutic range: 2.5 to 3.5 Blood (Blood, Venous) 07/20/2023 8:07 AM CDT 07/20/2023 8:38 AM CDT Woody Navarro M.D. LAB BLOOD ADD-O N [facility] [address] [place] [address], [facility] [address] [place] [address] from Last 3 Months Advance Directives For more information, please contact: [phone] Documents on File Type Date Recorded Patient [employer] Level Five Expl anation Advance Directives 02/02/2022 9:49 AM INV ALID * Full Code (Latest Code Status on File) Date Activated Date Inactivated Comments 02/01/2022 8:50 PM 02/02/2022 6:01 PM Question Answer Comments Full Code: Not Discussed Due to: Patient not available Care Teams Regional Facilities Specialist Relationship Specialty Start Date End Date Elsewhere, Pcp PCP - General Family Medicine 02/01/22
--- OUTSIDE RECORDS SUMMARY | 2023-10-20 00:41 | XMS_ITS | Encounter Summary ---
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 [address] [place] [phone] Rst Onc [facility] [address] [place] [phone] Referral ID Status Reason Start Date Expiration Date V isits Requested Visits Authorized [id number] Authorized 07/28/2023 07/27/2025 99 99 Encounter Details Date Type Department Care Team (Late st Contact Info) Description 10/11/2023 2:00 PM CDT Infusion Department of Oncology in [place], [place] [address] [place] [phone] Blanche Monzon P.A.-C., M.S. [address] [place] [phone] Malignant Neoplasm Of Neck Squamous Cell (Primary Dx); Other Skilled Nursing Current 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; Secondary Malignant Neoplasm Bone [...] How often do you attend chur or moravian services? Never 01/24/2022 Do you [...] Not hard at all 09/02/2022 [facility] [place] of Occupat ional Health - Occupational Stress [...] Assigned at Female 01/24/2022 7:37 PM RN CORONARY CARE UNIT Gender Identity Female 01/24/2022 7:37 PM RN CORONARY CARE UNIT Sexual Orientation Straight 01/24/2022 7: 37 PM RN CORONARY CARE UNIT documented as of this encounter Plan of Treatment Upcoming Encounters Date Type Department Care Team (Late st Contact Info) Description 10/30/2023 11:00 AM CDT Clinical Communication Virtual Review in [address] [phone] 11/01/2023 11:40 AM CDT Lab Department of Laboratory Medicine and Pathology, [facility], in [place], [place] [address] [place] [phone] Remigio Frey M.D., Ph.D. [address] [place] [phone] 11/01/2023 1:40 PM CDT Office Visit Department of Oncology in [address] [phone] Blanche Monzon P.A.-C., M.S. [address] [place] [phone] 11/01/2023 2:45 PM CDT Infusion Department of Oncology in [address] [phone] Remigio Frey M.D., Ph.D. [address] [place] [phone] 11/08/2023 9:45 AM CDT Clinical Communication Virtual Review in [address] [phone] 11/10/2023 8:00 AM CDT Office Visit Department of Dermatology in [address] [phone] Emily Bell M.D. [address] [place] [phone] 11/17/2023 11:00 AM CDT Clinical Communication Virtual Review in [address] [phone] 11/21/2023 11:10 AM CDT Lab Department of Laboratory Medicine and Pathology, [facility], in [place], [place] [address] [place] [phone] Remigio Frey M.D., Ph.D. [address] [place] [phone] 11/21/2023 1:00 PM CDT Office Visit Department of Oncology in [place], [place] [address] [place] [phone] Mc Mcknight M.D., Ph.D. [address] [place] [phone] 11/21/2023 2:15 PM CDT Infusion Department of Oncology in [place], [place] [address] [place] [phone] Remigio Frey M.D., Ph.D. [address] [place] [phone] 12/11/2023 1:45 PM CDT Clinical Communication Virtual Review in [place], [place] 200 [place] [address] 12/12/2023 11:00 AM CDT Lab Department of Laboratory Medicine and Pathology, [facility], in [place], [place] [address] [place] [phone] Remigio Frey M.D., Ph.D. [address] [place] [phone] 12/12/2023 1:00 PM CDT Office Visit Department of Oncology in [place], [place] [address] [place] [phone] Mc Mcknight M.D., Ph.D. [address] [place] [phone] 12/12/2023 3:00 PM CDT Infusion Department of Oncology in [place], [place] [address] [place] [phone] Remigio Frey M.D., Ph.D. [address] [place] [phone] 01/17/2024 9:00 AM RN CORONARY CARE UNIT Clinical Communication Virtual Review in [place], [place] 200 [place] [phone] 01/19/2024 2:30 PM RN CORONARY CARE UNIT Comprehensive Visit Department of Neurology in [place], [place] [address] [place] [phone] Kory Alas M.B., Ch.B. 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 New Bag 10/11/2023 3:16 PM CDT 350 mg 564 mL/hr documented in this encounter Care Teams Electro Mechanical Designer Relationship Specialty Start Date End Date Elsewhere, Pcp PCP - General Family Medicine 02/01/22 documented as of this encounter
--- OUTSIDE RECORDS SUMMARY | 2023-10-20 00:41 | XMS_ITS | Encounter Summary ---
Author Organization [facility] Address [address] [place] [id number] Care Team Providers Care Drip Pumper Name Role Phone Elsewhere, Pcp Primary Care Provider Unavailabl e Reason for Referral * Outpatient (Routine) Specialty Diagnoses / Procedures Referred By Contac t Referred To Contact Oncology Remigio Frey M.D., Ph.D. [address] [place] [phone] Mc Mcknight M.D., Ph.D. [address] [place] [phone] Referral ID Status Reason Start Date Expiration Date Visits Re quested Visits Authorized * Outpatient (Routine) Specialty Diagnoses / Procedures Referred By Contac t Referred To Contact Oncology Remigio Frey M.D., Ph.D. [address] [place] [phone] Mc Mcknight M.D., Ph.D. [address] [place] [phone] Referral ID Status Reason Start Date Expiration Date Visits Re quested Visits Authorized * Outpatient (Routine) Specialty Diagnoses / Procedures Referred By Ryan cronin Referred To Contact Oncology Remigio Frey M.D., Ph.D. [address] [place] [phone] Mc Mcknight M.D., Ph.D. [address] [place] [phone] Referral ID Status Reason Start Date Expiration Date Visits Re quested Visits Authorized Reason for Visit * Episode Based Medications (Routine) - Authorized Specialty Diagnoses / Procedures Referred By Ryan t Referred To Contact Diagnoses 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 Current 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 Blanche Monzon P.A.-C., M.S. [address] [place] [phone] Rst On[facility] [address] [place] [phone] Referral ID Status Reason Start Date Expiration Date V isits Requested Visits Authorized [id number] Authorized 07/28/2023 07/27/2025 99 99 Encounter Details Date Type Department Care Team (Late st Contact Info) Description 10/11/2023 1:00 PM CDT Office Visit Department of Oncology in [place], [place] [address] [place] [phone] Remigio Frey M.D., Ph.D. [address] [place] [phone] Squamous Cell Carcinoma Of Skin Of Scalp And Neck (Primary Dx); Other Group Home Current 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; Secondary Malignant Neoplasm Bone (HCC) Social History Tobacco Use Types Packs/Day [...] and heating? Not hard at all 09/02/2022 [facility] [place] of Occupat ional Health - Occupational Stress [...] your living situation today? I have a [facility] place to live 02/16/2023 Education Answer Date Recorded What is the highest level of school you have completed or the highest degree you have received? Bachelor's degree (e.g., BA, AB, BS) 01/24/2022 Sex and Gender Information Value Date Recorded Sex Assigned at Female 01/24/2022 7:37 PM DIETETIC INTERN Gender Identity Female 01/24/2022 7:37 PM DIETETIC INTERN Sexual Orientation Straight 01/24/2022 7: 37 PM DIETETIC INTERN documented as of this encounter Last Filed Vital Signs Vital Sign Reading Time Taken Comments Blood Pressure 126/70 10/11/2023 12:51 PM CDT Pulse 62 10/11/2023 12:51 PM CDT Temperature 36.2 ??C (97.2 ??F) 10/11/2023 12:51 PM C DT Respiratory Rate 17 10/11/2023 12:51 PM CDT Oxygen Saturation 97% 10/11/2023 12:51 PM CDT Inhaled Oxygen Concentration - - Weight 58.7 kg (129 lb 4.8 oz) 10/11/2023 12:51 PM CDT Height 162.6 cm (5' 4.02) 10/11/2023 12:51 PM C DT Body Mass Index 22.18 10/11/2023 12:51 PM CDT documented in this encounter Progress Notes * Remigio Frey M.D., Ph.D. - 10/11/2023 1:00 PM CDT SUBJECTIVE CHIEF COMPLAINT/REASON FOR VISIT Recurrent squamous cell carcinoma HISTORY OF PRESENT ILLNESS Oncology History Squamous Cell Carcinoma Of Skin Of Scalp And Neck 07/2021 Initial Diagnosis July 2021: Noticed a lesion on the vertex of the scalp. Evaluated by supply chain development manager Dr. Banuelos in [place] and was treated for possible psoriasis. The lesion persisted after 6 weeks. She was then treated with UV phototherapy between September and December of 2021. September 22, 2021---December 17, 2021: Underwent biopsy of the vertex scalp lesion which revealed squamous cell carcinoma. Incisional biopsy of left level 5 lymph node also revealed squamous cell carcinoma. 12/30/2021 Biopsy/Pathology A. Skin, scalp, vertex, excisional biopsy ([id number] B; 12/30/2021): Invasive poorly differentiated squamous cell carcinoma, transected at base and lateral edge of the specimen. B. Neck, left, soft tissue, biopsy ([id number]; 01/13/2022): Invasive poorly differentiated squamous cell carcinoma [...] treatments to POST-OPERATIVE bed & bilateral neck 07/14/[address] revealed progressive increase in size of a right parieto-occipital lytic calvarial lesion, with new focal advanced thinning if not dehiscence of the inner table of the calvarium. 07/20/2023 Biopsy/Pathology FNA of skull lesion was atypical showing fragments of keratinous debris. No intact tissue identified. Therefore, definitive diagnosis not possible. 07/27/2023 Critical Imaging Brain MRI revealed that indeterminate right parieto-occipital calvarial lesion has mildly increasedin size and is suspicious for a metastatic lesion. 08/08/2023 - Chemotherapy Cemiplimab-rwlc Start Date: 08/08/2023 INTERVAL HISTORY: Ms. Guevara returns for follow-up of squamous cell carcinoma. She is doing well and has not noted any new or concerning symptoms, apart from a bit more discomfort and stiffness in the neck. She remains active. She has not noted any difficulties with the breathing, appetite, or bowel movements. ECOG performance status is 0. REVIEW OF SYSTEMS Pertinent items are noted in HPI; all other review of systems were negative. I reviewed the Medications, Allergies, Past Medical History, Social History, and Family History. OBJECTIVE VITAL SIGNS Vitals: 10/11/23 1251 BP: 126/70 BP Location: Right arm Patient Position: Sitting Cuff Size: Small Pulse: 62 Resp: 17 Temp: 36.2 ??C TempSrc: Tympanic SpO2: 97% Weight: 58.7 kg Height: 162.6 cm DISTRESS SCORE: Rate your distress: 3 PHYSICAL EXAMINATION General: Alert female, in no acute distress. Ambulates on and off the exam table without difficulty. Eyes: Sclerae non-icteric. Lymph: No palpable cervical, supraclavicular, or axillary lymphadenopathy. Heart: Regular rate and rhythm. Lungs: Clear to auscultation and resonant to percussion bilaterally. Abdomen: Soft, non-tender, non-distended. Extremities: Warm, no edema, no calf tenderness. 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 Guevara is doing well and has no dose-limiting clinical toxicity from her treatment with cemiplimab. She has no clinical evidence for progression of her cancer. I reviewed the laboratory studies, and these show no acute concerns. I reviewed the images from the MRI of the brain and a CT of the neck, chest, abdomen, and pelvis. The MRI of the brain shows that the calvarial lesion is stable. The CT of the neck shows a more prominent right cervical lymph node that is nonspecific in nature. There is no obvious evidence of new or progressive cancer on any of the scans. I discussed with Ms. Guevara that I am pleased that her cancer remains controlled by her treatment. I recommended that she continue cemiplimab for now. We will plan to reassess her after another 4 cycles of treatment. PATIENT EDUCATION Learning needs assessment was performed. No learning barriers were identified. Explained diagnosis and treatment plan. Patient expressed understanding and was able to teach back. ADMINISTRATIVE BILLING I personally spent over half of a total 30 minutes with the patient in counseling and discussion and/or coordination of care as described above. documented in this encounter Plan of Treatment Upcoming Encounters Date Type Department Care Team (Late st Contact Info) Description 10/30/2023 11:00 AM CDT Clinical Communication Virtual Review in [address] [phone] 11/01/2023 11:40 AM CDT Lab Department of Laboratory Medicine and Pathology, [facility], in [address] [phone] Remigio Frey M.D., Ph.D. [address] [place] [phone] 11/01/2023 1:40 PM CDT Office Visit Department of Oncology in [address] [phone] Blanche Monzon P.A.-C., M.S. [address] [place] [phone] 11/01/2023 2:45 PM CDT Infusion Department of Oncology in [address] [phone] Remigio Frey M.D., Ph.D. [address] [place] [phone] 11/08/2023 9:45 AM CDT Clinical Communication Virtual Review in [address] [phone] 11/10/2023 8:00 AM CDT Office Visit Department of Dermatology in [address] [phone] Emily Bell M.D. [address] [place] [phone] 11/17/2023 11:00 AM CDT Clinical Communication Virtual Review in [address] [phone] 11/21/2023 11:10 AM CDT Lab Department of Laboratory Medicine and Pathology, [facility], in [place], [place] [address] [place] [phone] Remigio Frey M.D., Ph.D. [address] [place] [phone] 11/21/2023 1:00 PM CDT Office Visit Department of Oncology in [place], [place] [address] [place] [phone] Mc Mcknight M.D., Ph.D. [address] [place] [phone] 11/21/2023 2:15 PM CDT Infusion Department of Oncology in [place], [place] [address] [place] [phone] Remigio Frey M.D., Ph.D. [address] [place] [phone] 12/11/2023 1:45 PM CDT Clinical Communication Virtual Review in [address] [phone] 12/12/2023 11:00 AM CDT Lab Department of Laboratory Medicine and Pathology, [facility], in [place], [place] [address] [place] [phone] Remigio Frey M.D., Ph.D. [address] [place] [phone] 12/12/2023 1:00 PM CDT Office Visit Department of Oncology in [address] [phone] Mc Mcknight M.D., Ph.D. [address] [place] [phone] 12/12/2023 3:00 PM CDT Infusion Department of Oncology in [place], [place] [address] [place] [phone] Remigio Frey M.D., Ph.D. [address] [place] [phone] 01/17/2024 9:00 AM DIETETIC INTERN Clinical Communication Virtual Review in [place], [place] 200 [place] [phone] 01/19/2024 2:30 PM DIETETIC INTERN Comprehensive Visit Department of Neurology in [place], [place] [address] [place] [phone] Kory Alas M.B., Ch.B. 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 Current 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 Expected: 10/31/2023, Expires: 10/30/2024 Thyroid Function [place] Lab Routine Other Group Home Current 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 Expected: 10/31/2023, Expires: 10/30/2024 CBC with Differential, Blood Lab Routine Other Group Home Current 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 Expected: 11/21/2023, Expires: 11/20/2026 Comprehensive Metabolic Panel Lab Routine Other Group Home Current 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 Expected: 11/21/2023, Expires: 11/20/2024 Bilirubin, Direct Lab Routine Other Group Home Current 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 Expected: 11/21/2023, Expires: 11/20/2024 Thyroid Function [place] Lab Routine Other Group Home Current 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 Expected: 11/21/2023, Expires: 11/20/2024 CBC with Differential, Blood Lab Routine Other Group Home Current 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 Expected: 12/12/2023, Expires: 12/11/2026 Comprehensive Metabolic Panel Lab Routine 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 Current 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 Expected: 12/12/2023, Expires: 12/11/2024 Bilirubin, Direct Lab Routine Other Group Home Current 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 Expected: 12/12/2023, Expires: 12/11/2024 Thyroid Function [place] Lab Routine 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 Current 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 Expected: 12/12/2023, Expires: 12/11/2024 Scheduled Referrals Name Type Priority Associated Diagnoses Orde r Schedule Oncology office visit (clinic) Outpatient Referral Routine Other Group Home Current 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 Expected: 10/31/2023, Expires: 10/30/2024 Oncology office visit (clinic) Outpatient Referral Routine Other Group Home Current 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 Expected: 11/21/2023, Expires: 11/20/2024 Oncology office visit (clinic) Outpatient Referral Routine 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 Current 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 Expected: 12/12/2023, Expires: 12/11/2024 documented as of this encounter Visit Diagnoses Diagnosis Squamous Cell Carcinoma Of Skin Of Scalp And Neck- Primary 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
--- OUTSIDE RECORDS SUMMARY | 2023-10-20 00:41 | XMS_ITS | Encounter Summary ---
Author Organization [facility] Address [address] [place] [address] Care Team Providers Care Lighting Designer Name Role Phone Elsewhere, Pcp Primary Care Provider Unavailabl e Reason for Referral * MRI/CAT/PET Scan (Routine) - Closed Specialty Diagnoses / Procedures Referred By Ryan cronin Referred To Contact Radiology Diagnoses Squamous Cell Carcinoma Of Skin Of Scalp And Neck Lesion Lytic Bone Secondary Malignant Neoplasm Bone (HCC) Other Oxygen Therapist Current 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 Procedures CT Abdomen Pelvis with IV Contrast Blanche Monzon P.A.-C., M.S. [address] [place] [address] [facility] Referral ID Status Reason Start Date Expiration Date Visits Re quested Visits Authorized [id number] Closed 07/28/2023 07/27/2024 1 1 * MRI/CAT/PET Scan (Routine) - Closed Specialty Diagnoses / Procedures Referred By Ryan cronin Referred To Contact Radiology Diagnoses Squamous Cell Carcinoma Of Skin Of Scalp And Neck Lesion Lytic Bone Secondary Malignant Neoplasm Bone (HCC) Other Oxygen Therapist Current 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 Procedures CT Chest with IV Contrast Blanche Monzon P.A.-C., M.S. [address] [place] [phone] [facility] Referral ID Status Reason Start Date Expiration Date Visits Re quested Visits Authorized [id number] Closed 07/28/2023 07/27/2024 1 1 * MRI/CAT/PET Scan (Routine) - Closed Specialty Diagnoses / Procedures Referred By Contac t Referred To Contact Radiology Diagnoses Squamous Cell Carcinoma Of Skin Of Scalp And Neck Lesion Lytic Bone Secondary Malignant Neoplasm Bone (HCC) Other Residential Current 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 Procedures CT Neck Soft Tissue with IV Contrast Blanche Monzon P.A.-C., M.S. [address] [place] [phone] [facility] Referral ID Status Reason Start Date Expiration Date Visits Re quested Visits Authorized [id number] Closed 07/28/2023 07/27/2024 1 1 Reason for Visit * MRI/CAT/PET Scan (Routine) - Closed Specialty Diagnoses / Procedures Referred By Contac t Referred To Contact Radiology Diagnoses Squamous Cell Carcinoma Of Skin Of Scalp And Neck Lesion Lytic Bone Secondary Malignant Neoplasm Bone (HCC) Other Oxygen Therapist Current 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 Procedures CT Abdomen Pelvis with IV Contrast Blanche Monzon P.A.-C., M.S. [address] [place] [phone] [facility] Referral ID Status Reason Start Date Expiration Date Visits Re quested Visits Authorized [id number] Closed 07/28/2023 07/27/2024 1 1 Encounter Details Date Type Department Care Team (Latest Contact Info) Description 10/11/2023 6:45 AM CDT - 10/11/2023 7:40 AM CDT Hospital Encounter Department of Radiology, [facility], in [place], [place] [address] [place] [phone] Blanche Monzon P.A.-C., M.S. [address] [place] [address] Squamous Cell Carcinoma Of Skin Of Scalp And Neck; Secondary Malignant Neoplasm Bone (HCC); Other Oxygen Therapist Current 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 Discharge Disposition: Home or Self Care Social [...] any clubs o r organizations such as sabianist groups, unions, fraternal or athletic groups, or [...] and heating? Not hard at all 09/02/2022 [facility] - Occupational Stress [...] Sex Assigned at Female 01/24/2022 7:37 PM AIRLINE TICKET AGENT Gender Identity Female 01/24/2022 7:37 PM AIRLINE TICKET AGENT Sexual Orientation Straight 01/24/2022 7: 37 PM AIRLINE TICKET AGENT documented as of this encounter Medications at Time of Discharge Medication Sig Dispensed Refills Start Date End Date cholecalciferol, vitamin D3, (cholecalciferol) 25 mcg (1,000 Unit) tablet Take 25 mcg by mouth daily. hydrocortisone 2.5 % ointmentIndications:D ermatitis Mix with [...] mouth daily. 90 tablet 3 08/16/2023 08/10/2024 methylcellulose, laxative, (CITRUCEL) 500 mg tablet Take by mouth daily. Heaping tablespoon in water once daily multivitamin tablet Take 1 tablet by mouth daily. Currently has One-A-Day Men's 50 Plus. rosuvastatin (CRESTOR) 10 mg tablet Take 10 mg by mouth at bedtime. ubiquinone (COENZYME Q10) 100 mg tablet Take 100 mg by mouth daily. 12/22/2021 UNABLE TO FIND Take 1 each by mouth daily. Med Name: Collagen powder, 1 scoop every morning with cereal documented as of this encounter Nursing Notes * Berna Connelly R.N. - 10/11/2023 7:15 AM CDT \Outpatient, keeping PIV in for later exam or refused to keep in for later exam requiring PIV: Is PIV being left in? YES If no, did patient refuse? NO Why is PIV being left in? Another procedure/exam scheduled for today which requires a PIV Name and role of person notified in receiving area: MRI and Infusion documented in this encounter Plan of Treatment Upcoming Encounters Date Type Department Care Team (Late st Contact Info) Description 10/30/2023 11:00 AM CDT Clinical Communication Virtual Review in [address] [phone] 11/01/2023 11:40 AM CDT Lab Department of Laboratory Medicine and Pathology, [facility] [place] [facility], in [address] [phone] Remigio Frey M.D., Ph.D. [address] [place] [phone] 11/01/2023 1:40 PM CDT Office Visit Department of Oncology in [address] [phone] Blanche Monzon P.A.-Nixon., M.S. [address] [place] [phone] 11/01/2023 2:45 PM CDT Infusion Department of Oncology in [address] [phone] Remigio Frey M.D., Ph.D. [address] [place] [phone] 11/08/2023 9:45 AM CDT Clinical Communication Virtual Review in [address] [phone] 11/10/2023 8:00 AM CDT Office Visit Department of Dermatology in [address] [phone] Emily Bell M.D. [address] [place] [phone] 11/17/2023 11:00 AM CDT Clinical Communication Virtual Review in [place], [place] [address] [place] [address] 11/21/2023 11:10 AM CDT Lab Department of Laboratory Medicine and Pathology, [facility], in [place], [place] [address] [place] [phone] Remigio Frey M.D., Ph.D. [address] [place] [phone] 11/21/2023 1:00 PM CDT Office Visit Department of Oncology in [place], [place] [address] [place] [phone] Mc Mcknight M.D., Ph.D. [address] [place] [phone] 11/21/2023 2:15 PM CDT Infusion Department of Oncology in [place], [place] [address] [place] [phone] Remigio Frey M.D., Ph.D. [address] [place] [phone] 12/11/2023 1:45 PM CDT Clinical Communication Virtual Review in [address] [phone] 12/12/2023 11:00 AM CDT Lab Department of Laboratory Medicine and Pathology, [facility], in [place], [place] [address] [place] [phone] Remigio Frey M.D., Ph.D. [address] [place] [phone] 12/12/2023 1:00 PM CDT Office Visit Department of Oncology in [place], [place] [address] [place] [phone] Mc Mcknight M.D., Ph.D. [address] [place] [phone] 12/12/2023 3:00 PM CDT Infusion Department of Oncology in [place], [place] [address] [place] [phone] Remigio Frey M.D., Ph.D. [address] [place] [phone] 01/17/2024 9:00 AM AIRLINE TICKET AGENT Clinical Communication Virtual Review in [place], [place] [address] [place] [phone] 01/19/2024 2:30 PM AIRLINE TICKET AGENT Comprehensive Visit Department of Neurology in [address] [phone] Kory Alas M.B., Ch.B. [address] [place] [phone] documented as of this encounter Procedures Procedure Name Priority Date/Time Associated Diagnosis Comments CT ABDOMEN PELVIS WITH IV CONTRAST RAD - Routine (most inpatients and all outpatients) 10/11/2023 7:40 AM CDT Squamous Cell Carcinoma Of Skin Of Scalp And Neck Secondary Malignant Neoplasm Bone (HCC) Other Residential Current 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 CT CHEST WITH IV CONTRAST RAD - Routine (most inpatients and all outpatients) 10/11/2023 7:40 AM CDT Squamous Cell Carcinoma Of Skin Of Scalp And Neck Secondary Malignant Neoplasm Bone (HCC) Other Oxygen Therapist Current 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 CT NECK SOFT TISSUE WITH IV CONTRAST RAD - Routine (most inpatients and all outpatients) 10/11/2023 7:40 AM CDT Squamous Cell Carcinoma Of Skin Of Scalp And Neck Secondary Malignant Neoplasm Bone (HCC) Other Residential Current 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 documented in this encounter Results * CT [...] is suggestive of interstitial lung disease. Blanche Iggy Monzon P.A.-C., M.S. IMG CT P ROCEDURES [...] lymphadenopathy or soft tissue mass. Blanche Monzon P.A.-C. M.S. IMG CT P ROCEDURES documented in this encounter Visit Diagnoses Diagnosis Squamous Cell Carcinoma Of Skin Of Scalp And Neck Secondary Malignant Neoplasm Bone (HCC) Other Residential Current 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 Malignant Neoplasm Of Neck Squamous Cell- Primary Secondary Malignant Neoplasm Bone (HCC) Other Oxygen Therapist Current 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 documented in this encounter Administered Medications Inactive Administered Medications - up to 3 most recent administrations Medication Order MAR Action Action Date Dose Rate Site iohexoL 300 mg iodine/mL solution 1-200 mL (Omnipaque) 1-200 mL, intravenous, Once in imaging, contrast, Starting on Mon10/11/23 at 0656, For 1 dose, Imaging Protocol Orders, Dose per Radiant Medication Guidelines Given 10/11/2023 7:12 AM CDT 140 mL sodium chloride (PF) 0.9 % injection 1-100 mL 1-100 mL, intravenous, Once, On Mon10/11/23 at 0715, For 1 dose, Imaging Protocol Orders, Dose per Radiant Medication Guidelines Given 10/11/2023 7:13 AM CDT 50 mL documented in this encounter Care Teams Lighting Designer Relationship Specialty Start Date End Date Elsewhere, Pcp PCP - General Family Medicine 02/01/22 documented as of this encounter
--- OUTSIDE RECORDS SUMMARY | 2023-10-20 00:41 | XMS_ITS ---
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 And Nec k 01/26/2022 Overview (01/26/2022): Added automatically from request for surgery [id number] Amnesia 01/26/2022 Disorder Of The Skin And Subcutaneous Tissue Uns pecified 01/26/2022 Dry Eye Syndrome Right 01/26/2022 Dyslipidemia 01/26/2022 Fatigue 01/26/2022 Fatty Liver 01/26/2022 Gastroesophageal Reflux Disease 01/26/2022 Generalized Enlarged Lymph Nodes 01/26/2022 Hereditary And Idiopathic Neuropathy Unspecified 01/26/2022 Hyperlipidemia 01/26/2022 Microscopic Colitis Unspecified 01/26/2022 Nonrheumatic Aortic Valve Insufficiency 01/27/20 22 Osteoporosis 10/26/2020 Current Oncology Plans Cemiplimab-rwlc* Plan Start Date:08/07/2023 Plan Provider:Blanche Monzon P.A.-C., M.S. Linked Problems Other Stumper Feller Current 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Secondary Malignant Neoplasm Bone (HCC)Squamous Cell Carcinoma Of Skin Of Scalp And Neck Treatment Medications Current Day (Day 1 , Cycle 5 - Planned for 10/31/2023) Next Day (Day 1, Cycle 6 - Planned for 11/21/2023) cemiplimab-rwlc (Libtayo)cemiplimab-rwlc (Libtayo) IVPB solution cemiplimab-rwlc 350 mg in NaCl 0.9% 257 mL IVPB (Libtayo) cemiplimab-rwlc 350 mg in NaCl 0.9% 257 mL IVPB (Libtayo) Vascular Access Patency - Peripheral Intravenous Catheter and Rapid Infusion Catheter* Plan Start Date:08/08/2023 Linked Problems Malignant Neoplasm Of Neck S quamous Cell Treatment Medications No medications scheduled. Past Plans No past plan information found. Radiation Treatments * Plan Last Treated On Elapsed Days Fractions Treated Prescribed Fraction Dose Prescribed Total Dose [id number] 04/29/2022 39 30 of 30 220 cGy 6,600 cGy [id number] 04/29/2022 39 30 of 30 200 cGy 6,000 cGy Reference Point Last Treated On Elapsed Days Session Dose Total Dose [id number] 04/29/2022 39 200 cGy 6,000 cGy [id number] 04/29/2022 39 220 cGy 6,600 cGy
--- OUTSIDE RECORDS SUMMARY | 2023-10-20 00:41 | XMS_ITS ---
Author Organization [facility] Address [address] [place] [address] Care Team Providers Care Furnace And Wash Equipment Operator Name Role Phone Unavailable Unavailable Unavailable Surgery Details Not on file Complications Check Surgery Details section. Procedure Estimated Blood Loss Check Surgery Details section. Procedure Findings Check Surgery Details section. Procedure Specimens Taken Check Surgery Details section.
--- OUTSIDE RECORDS SUMMARY | 2023-10-20 00:41 | XMS_ITS | Encounter Summary ---
Author Organization [facility] Address [address] [place] [address] Care Team Providers Care Payment Rep Name Role Phone Elsewhere, Pcp Primary Care Provider Unavailabl e Reason for Referral * MRI/CAT/PET Scan (Routine) - Closed Specialty Diagnoses / Procedures Referred By Ryan cronin Referred To Contact Radiology Diagnoses Squamous Cell Carcinoma Of Skin Of Scalp And Neck Lesion Lytic Bone Secondary Malignant Neoplasm Bone (HCC) Other Media Analyst Current 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 Procedures MR Brain without and with IV Contrast Blanche Monzon P.A.-C., M.S. [address] [place] [address] [facility] Referral ID Status Reason Start Date Expiration Date Visits Re quested Visits Authorized [id number] Closed 07/28/2023 07/27/2024 1 1 Reason for Visit * MRI/CAT/PET Scan (Routine) - Closed Specialty Diagnoses / Procedures Referred By Ryan cronin Referred To Contact Radiology Diagnoses Squamous Cell Carcinoma Of Skin Of Scalp And Neck Lesion Lytic Bone Secondary Malignant Neoplasm Bone (HCC) Other Media Analyst Current 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 Procedures MR Brain without and with IV Contrast Blanche Monzon P.A.-C., M.S. [address] [place] [address] [facility] Referral ID Status Reason Start Date Expiration Date Visits Re quested Visits Authorized [id number] Closed 07/28/2023 07/27/2024 1 1 Encounter Details Date Type Department Care Team (Latest Contact Info) Description 10/11/2023 7:41 AM CDT - 10/11/2023 3:29 PM CDT Hospital Encounter Department of Radiology, [place], [place] [address] [place] [address] Blanche Monzon P.A.-C., M.S. [address] [place] [address] Squamous Cell Carcinoma Of Skin Of Scalp And Neck; Secondary Malignant Neoplasm Bone (HCC); Other Custodial Current 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 Discharge Disposition: Home or [...] often do you attend chur ch or mandaeism services? Never 01/24/2022 Do you belong to [...] and heating? Not hard at all 09/02/2022 [facility] - Occupational Stress Questionnaire Answer Date [...] living situation today? I have a [facility] place to live 02/16/2023 Education Answer Date Recorded What is the highest level of school you have completed or the highest degree you have received? Bachelor's degree (e.g., BA, AB, BS) 01/24/2022 Sex and Gender Information Value Date Recorded Sex Assigned at Female 01/24/2022 7:37 PM AIRLINE STATION AGENT Gender Identity Female 01/24/2022 7:37 PM AIRLINE STATION AGENT Sexual Orientation Straight 01/24/2022 7: 37 PM AIRLINE STATION AGENT documented as of this encounter Medications [...] breast, or on the face. 30 g 03/23/2023 ketoconazole (NIZORAL) 2 % creamIndications:Derm atitis Seborrheic Apply 1 Application topically 2 (two) times a day as needed for rash or irritation. Apply to red, itchy areas on the central face and eyebrows as well as over the supragluteal cleft 60 g 12/21/2022 ketoconazole (NIZORAL) 2 % shampoo Apply 1 Application topically 3 (three) times a week. Apply to damp skin, lather, leave on 5 minutes, and rinse 120 mL 03/24/2023 levothyroxine (Synthroid) 50 mcg tablet Take [...] with cereal documented as of this encounter Plan of Treatment Upcoming Encounters Date Type Department Care Team (Late st Contact Info) Description 10/30/2023 11:00 AM CDT Clinical Communication Virtual Review in [address] [phone] 11/01/2023 11:40 AM CDT Lab Department of Laboratory Medicine and Pathology, [facility] in [address] [phone] Remigio Frey M.D., Ph.D. [address] [place] [phone] 11/01/2023 1:40 PM CDT Office Visit Department of Oncology in [address] [phone] Blanche Monzon P.A.Wilbert., M.S. [address] [place] [phone] 11/01/2023 2:45 PM CDT Infusion Department of Oncology in [address] [phone] Remigio Frey M.D., Ph.D. [address] [place] [phone] 11/08/2023 9:45 AM CDT Clinical Communication Virtual Review in [address] [phone] 11/10/2023 8:00 AM CDT Office Visit Department of Dermatology in [address] [phone] Emily Bell M.D. [address] [place] [phone] 11/17/2023 11:00 AM CDT Clinical Communication Virtual Review in [address] [phone] 11/21/2023 11:10 AM CDT Lab Department of Laboratory Medicine and Pathology, [facility], in [place], [place] [address] [place] [phone] Remigio Frey M.D., Ph.D. [address] [place] [phone] 11/21/2023 1:00 PM CDT Office Visit Department of Oncology in [address] [phone] Mc Mcknight M.D., Ph.D. [address] [place] [phone] 11/21/2023 2:15 PM CDT Infusion Department of Oncology in [place], [place] [address] [place] [phone] Remigio Frey M.D., Ph.D. [address] [place] [phone] 12/11/2023 1:45 PM CDT Clinical Communication Virtual Review in [address] [phone] 12/12/2023 11:00 AM CDT Lab Department of Laboratory Medicine and Pathology, [facility], in [address] [phone] Remigio Frey M.D., Ph.D. [address] [place] [phone] 12/12/2023 1:00 PM CDT Office Visit Department of Oncology in [address] [phone] Mc Mcknight M.D., Ph.D. [address] [place] [phone] 12/12/2023 3:00 PM CDT Infusion Department of Oncology in [address] [phone] Remigio Frey M.D., Ph.D. [address] [place] [phone] 01/17/2024 9:00 AM AIRLINE STATION AGENT Clinical Communication Virtual Review in [address] [phone] 01/19/2024 2:30 PM AIRLINE STATION AGENT Comprehensive Visit Department of Neurology in [address] [phone] Kory Alas M.B., Ch.B. [address] [place] [phone] documented as of this encounter Procedures Procedure Name Priority Date/Time Associated Diagnosis Comments MR BRAIN WITHOUT AND WITH IV CONTRAST RAD - Routine (most inpatients and all outpatients) 10/11/2023 8:50 AM CDT Squamous Cell Carcinoma Of Skin Of Scalp And Neck Secondary Malignant Neoplasm Bone (HCC) Other Custodial Current 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 documented in this encounter Results * MR Brain without and with IV Contrast (10/11/2023 8:50 AM CDT) Anatomical Region Laterality Modality Head, Brain, Neuroradiology [...] with direct visualization. Blanche Monzon P.A.-C., M.S. [facility] MRI PROCEDURES documented in this encounter Visit Diagnoses Diagnosis Squamous Cell Carcinoma Of Skin Of Scalp And Neck Secondary Malignant Neoplasm Bone (HCC) Other Custodial Current 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 Malignant Neoplasm Of Neck Squamous Cell- Primary Secondary Malignant Neoplasm Bone (HCC) Other Media Analyst Current 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 documented in this encounter Administered Medications Inactive Administered Medications - up to 3 most recent administrations Medication Order MAR Action Action Date Dose Rate Site gadobutrol injection 0.01-30 mL (Gadavist) 0.01-30 mL, intravenous, Once in imaging, contrast, Starting on Mon10/11/23 at 0749, For 1 dose, Imaging Protocol Orders, Dose per Radiant Medication Guidelines Intrathecal doses greater than 0.25 mL not recommended. Given 10/11/2023 8:36 AM CDT 7.5 mL documented in this encounter Care Teams Payment Rep Relationship Specialty Start Date End Date Elsewhere, Pcp PCP - General Family Medicine 02/01/22 documented as of this encounter
--- OUTSIDE RECORDS SUMMARY | 2023-10-20 00:41 | XMS_ITS | Referral Summary ---
Author Organization [facility] Address [address] [place] [address] Care Team Providers Care Energy Broker Name Role Phone Elsewhere, Pcp Primary Care Provider Unavailabl e Source Comments Patient records contain information from all sites at [facility]. For routine questions regarding patient records, call [phone] during business hours, M-F 8:00 AM - 5:00 PM Central Time. Record requests for emergency care only can be directed to [phone] at any time.[facility] Encounters Date Type Department Care Team Description 10/11/2023 3:30 PM CDT - 10/12/2023 10:05 AM CDT Hospital Encounter Department of Radiation Oncology in [place], [place] [address] [place] [address] Tammie Hooks M.D., Ph.D. Squamous Cell Carcinoma Of Skin Of Scalp And Neck (Primary Dx) 10/11/2023 7:41 AM CDT - 10/11/2023 3:29 PM CDT Hospital Encounter Department of Radiology, [facility] in [place], [place] [address] [place] [address] Blanche Monzon P.A.-C., M.S. 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 Squamous Cell Carcinoma Of Skin Of Scalp And Neck (Primary Dx); Other Fdc Current 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; Secondary Malignant Neoplasm Bone (HCC) 10/09/2023 10:45 AM CDT Clinical Communication Virtual Review in [place], [place] [address] [place] [address] Blood Pressure 09/19/2023 1:00 PM CDT Office Visit Department of Oncology in [address] [phone] Blanche Monzon P.A.-C., M.S. Squamous Cell Carcinoma Of Skin Of Scalp And Neck (Primary Dx); Secondary Malignant Neoplasm Bone (HCC); 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 Current 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 09/19/2023 2:00 PM CDT Infusion Department of Oncology in [address] [address] Blanche Monzon P.A.-C., M.S. 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 Secondary Malignant Neoplasm Bone (HCC); Squamous Cell Carcinoma Of Skin Of Scalp And Neck; 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 Current 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 08/28/2023 Orders Only Department of Radiation Oncology in [address] [address] Tammie Hooks M.D., Ph.D. 08/28/2023 10:00 AM CDT Clinical Communication Virtual Review in [address] [phone] 08/16/2023 Refill Department of Radiation Oncology in [address] [phone] Tammie Hooks M.D., Ph.D. Med Refill 08/16/2023 Clinical Communication Department of Oncology in [address] [address] Tammie Adams R.N., O.C.N. Sx- foot vibration 08/08/2023 3:30 PM CDT Infusion Department of Oncology in [address] [phone] Blanche Monzon P.A.-C., M.S. 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 Current 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 (Primary Dx); Secondary Malignant Neoplasm Bone (HCC); Squamous Cell Carcinoma Of Skin Of Scalp And Neck; Malignant Neoplasm Of Neck Squamous Cell 08/08/2023 2:40 PM CDT Education Department of Oncology in [place], [place] [address] [place] [phone] Blanche Monzon P.A.-C., M.S. Janette Arango R.N. Secondary Malignant Neoplasm Bone (HCC); Squamous Cell Carcinoma Of Skin Of Scalp And Neck; 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 Current 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 08/08/2023 1:40 PM CDT Office Visit Department of Oncology in [place], [place] [address] [place] [phone] Blanche Monzon P.A.-C., M.S. Secondary Malignant Neoplasm Bone (HCC); Squamous Cell Carcinoma Of Skin Of Scalp And Neck; 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 Current 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 08/03/2023 12:36 PM CDT - 08/03/2023 3:18 PM CDT Hospital Encounter Department of Radiation Oncology in [place], [place] [address] [place] [phone] Tammie Hooks M.D., Ph.D. Secondary Malignant Neoplasm Bone (HCC) (Primary Dx); Malignant Neoplasm Of Neck Squamous Cell 07/28/2023 9:20 AM CDT Telemedicine Department of Oncology in [place], [place] [address] [place] [phone] Blanche Monzon P.A.-C., M.S. Squamous Cell Carcinoma Of Skin Of Scalp And Neck (Primary Dx); Secondary Malignant Neoplasm Bone (HCC); 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 Current 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; Psoriasis 07/27/2023 12:04 PM CDT - 07/27/2023 11:59 PM CDT Hospital Encounter Department of Radiology, [facility] in [place], [place] [address] [place] [address] Woody Navarro M.D. Squamous Cell Carcinoma Of Skin Of Scalp And Neck; Malignant Neoplasm Of Neck Squamous Cell; Lesion Skull Discharge Disposition: Home or Self Care 07/24/2023 Orders Only Department of Oncology in [place], [place] [address] [place] [phone] Woody Navarro M.D. Squamous Cell Carcinoma Of Skin Of Scalp And Neck (Primary Dx); Malignant Neoplasm Of Neck Squamous Cell; Lesion Skull 07/20/2023 9:34 AM CDT - 07/20/2023 1:37 PM CDT Hospital Encounter Department of Radiology, [facility], in [place] [id number] [place] [phone] Woody Navarro M.D. Morris, Padraig P, M.B., B.Ch. Malignant Neoplasm Of Neck Squamous Cell; Lesion Skull Discharge Disposition: Home or Self Care from Last 3 Months Allergies Active Allergy [...] Date Secondary Malignant Neoplasm Bone 07/28/2023 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 Current 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 07/28/2023 Malignant Neoplasm Of Neck Squamous Cell 022 Squamous Cell Carcinoma Of Skin Of Scalp And Nec k 01/26/2022 Overview (01/26/2022): Added automatically from request for surgery [id number] Amnesia 01/26/2022 Disorder Of The Skin And [...] heating? Not hard at all 09/02/2022 [facility] - Occupational [...] your living situation today? I have a [facility] place to live 02/16/2023 Education Answer Date Recorded What is the highest level of school you have completed or the highest degree you have received? Bachelor's degree (e.g., BA, AB, BS) 01/24/2022 Sex and Gender Information Value Date Recorded Sex Assigned at Female 01/24/2022 7:37 PM REWARDS CONSULTANT Gender Identity Female 01/24/2022 7:37 PM REWARDS CONSULTANT Sexual Orientation Straight 01/24/2022 7: 37 PM REWARDS CONSULTANT Last Filed Vital Signs Vital Sign Reading [...] AM CDT Clinical Communication Virtual Review in [address] [phone] 11/01/2023 11:40 AM CDT Lab Department of Laboratory Medicine and Pathology, [facility], in [place], [place] [address] [place] [phone] Remigio Frey M.D., Ph.D. [address] [place] [phone] 11/01/2023 1:40 PM CDT Office Visit Department of Oncology in [place], [place] [address] [place] [phone] Blanche Monzon P.A.-C., M.S. [address] [place] [phone] 11/01/2023 2:45 PM CDT Infusion Department of Oncology in [place], [place] [address] [place] [phone] Remigio Frey M.D., Ph.D. [address] [place] [phone] 11/08/2023 9:45 AM CDT Clinical Communication Virtual Review in [place], [place] [address] [place] [phone] 11/10/2023 8:00 AM CDT Office Visit Department of Dermatology in [place], [place] [address] [place] [phone] Emily Bell M.D. [address] [place] [phone] 11/17/2023 11:00 AM CDT Clinical Communication Virtual Review in [place], [place] [address] [place] [address] 11/21/2023 11:10 AM CDT Lab Department of Laboratory Medicine and Pathology, [facility], in [place], [place] [address] [place] [phone] Remigio Frey M.D., Ph.D. [address] [place] [phone] 11/21/2023 1:00 PM CDT Office Visit Department of Oncology in [place], [place] [address] [place] [phone] Mc Mcknight M.D., Ph.D. [address] [place] [phone] 11/21/2023 2:15 PM CDT Infusion Department of Oncology in [place], [place] [address] [place] [phone] Remigio Frey M.D., Ph.D. [address] [place] [phone] 12/11/2023 1:45 PM CDT Clinical Communication Virtual Review in [address] [phone] 12/12/2023 11:00 AM CDT Lab Department of Laboratory Medicine and Pathology, [facility], in [place], [place] [address] [place] [phone] Remigio Frey M.D., Ph.D. [address] [place] [phone] 12/12/2023 1:00 PM CDT Office Visit Department of Oncology in [address] [phone] Mc Mcknight M.D., Ph.D. [address] [place] [phone] 12/12/2023 3:00 PM CDT Infusion Department of Oncology in [address] [phone] Remigio Frey M.D., Ph.D. [address] [place] [phone] 01/17/2024 9:00 AM REWARDS CONSULTANT Clinical Communication Virtual Review in [place], [place] [address] [place] [phone] 01/19/2024 2:30 PM REWARDS CONSULTANT Comprehensive Visit Department of Neurology in [place], [place] [address] [place] [phone] Kory Alas M.B., Ch.B. [address] [place] [phone] Medical Devices Implanted Type Area Seamer Device Identifier Shelf Expiration Date Model / Serial / Lot Hardware E.G. Pins/Screws/Ro ds Hardware e.g. 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 Current 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 CT ABDOMEN PELVIS WITH IV CONTRAST RAD - Routine (most inpatients and all outpatients) 10/11/2023 7:40 AM CDT Squamous Cell Carcinoma Of Skin Of Scalp And Neck Secondary Malignant Neoplasm Bone (HCC) Other Fdc Current 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 CT CHEST WITH IV CONTRAST RAD - Routine (most inpatients and all outpatients) 10/11/2023 7:40 AM CDT Squamous Cell Carcinoma Of Skin Of Scalp And Neck Secondary Malignant Neoplasm Bone (HCC) Other Fdc Current 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 CT NECK SOFT TISSUE WITH IV CONTRAST RAD - Routine (most inpatients and all outpatients) 10/11/2023 7:40 AM CDT Squamous Cell Carcinoma Of Skin Of Scalp And Neck Secondary Malignant Neoplasm Bone (HCC) Other Fdc Current 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 THYROID FUNCTION CASCADE, S Routine 10/11/2023 6:41 AM CDT 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 Current 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 BILIRUBIN DIRECT, S/P Routine 10/11/2023 6:41 AM CDT 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 Current 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 COMPREHENSIVE METABOLIC PANEL, S/P Routine 10/11/2023 6:41 AM CDT Other Fdc Current 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 CBC WITH DIFFERENTIAL, B Routine 10/11/2023 6:41 AM CDT 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 Current 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 THYROID FUNCTION CASCADE, S Routine 09/19/2023 10:57 AM CDT 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 Other Fdc Current 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 BILIRUBIN DIRECT, S/P Routine 09/19/2023 10:57 AM CDT 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 Other Fdc Current 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 COMPREHENSIVE METABOLIC PANEL, S/P Routine 09/19/2023 10:57 AM CDT 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 Current 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 CBC WITH DIFFERENTIAL, B Routine 09/19/2023 10:57 AM CDT 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 Other Fdc Current 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 THYROID FUNCTION CASCADE, S Routine 08/29/2023 11:30 AM CDT 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 Current 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 BILIRUBIN DIRECT, S/P Routine 08/29/2023 11:30 AM CDT 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 Other Fdc Current 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 COMPREHENSIVE METABOLIC PANEL, S/P Routine 08/29/2023 11:30 AM CDT 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 Other Fdc Current 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 CBC WITH DIFFERENTIAL, B Routine 08/29/2023 11:30 AM CDT 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 Other Fdc Current 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 THYROID FUNCTION CASCADE, S Routine 08/08/2023 11:12 AM CDT 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 Current 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 BILIRUBIN DIRECT, S/P Routine 08/08/2023 11:12 AM CDT 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 Suggest correlation with direct visualization. Blanche Moreno.-C., M.S. IMG MRI PROCEDURES * CT Abdomen Pelvis with [...] the abdomen or pelvis. Blanche Monzon P.A.-C. MNeyS. IMG CT P ROCEDURES * CT Chest [...] IMG CT P ROCEDURES * Thyroid Function [place] (10/11/2023 6:41 AM CDT) Only the most recent of4 resultswithin the time period is included. TSH, Sensitive 3.9 0.3 - 4.2 mIU/L 10/11/2023 7:51 AM CDT DTL Blood (Blood, Venous) 10/11/2023 6:41 AM CDT 10/11/2023 7:20 AM CDT Blanche Monzon P.A.-C. MMehul LAB ANDERSONO D ADD-ON [facility] [address] [place] [address], [facility] DTL [facility] [address] [place] [address] * (ABNORMAL) CBC with Differential, Blood (10/11/2023 [...] CDT 10/11/2023 7:05 AM CDT Blanche Monzon P.A.-C. MMehul LAB BLOO D ADD-ON Performing Organization Address [facility] de Phone Number [facility] [address] [place] [address], [facility] [address] [place] [address] * Bilirubin, Direct (10/11/2023 6:41 AM CDT) Only the most recent of4 resultswithin the time period is included. Bilirubin, Direct, S <0.2 0.0 - 0.3 mg/dL 10/11/2023 7:51 AM CDT DTL Blood (Blood, Venous) 10/11/2023 6:41 AM CDT 10/11/2023 7:20 AM CDT Blanche Monzon P.A.-C. MNeySNey LAB BLOO D ADD-ON Performing Organization Address [facility] Co de Phone Number [facility] [address] [place] [address], [facility] [address] [place] [address] * Comprehensive Metabolic Panel (10/11/2023 6:41 AM CDT) Only the most recent of4 resultswithin the time period is included. Potassium, S 4.0 3.6 - 5.2 mmol/L [...] CDT 10/11/2023 7:20 AM CDT Blanche Monzon P.A.-C. M.S. LAB YAMILETH D ADD-ON [facility] [employer] [facility] [address] [place] [address], [facility] [address] [place] [address] * CT Neuro Head Neck Face Biopsy [...] intracranial finding. Procedure Note Katherine Castillo M.B., B.Ch. - 07/20/2023 EXAM: CT NEURO HEAD NECK [...] calvarial lesion biopsy. EP Woody Navarro M.D. [facility] CT PROCEDUR ES * (ABNORMAL) Cytology Fine Needle Aspiration (including core biopsies) (07/20/2023 11:32 AM CDT) (A) 07/21/2023 4:40 PM CDT DTL Participated in the Interpretation Kendrick Gilbert., B.Ch.-Pathology Fellow(A) 07/21/2023 4:40 PM CDT DTL [...] en toto in cassette A1. ??Grossed by JANIE (A) 07/21/2023 4:40 PM CDT DTL Source [...] Navarro M.D. LAB SURG PATH O RDERABLES Performing Organization Address [facility] Co de Phone Number [facility] [address] [place] [address] * APTT (Activated Partial Thromboplastin Time) (07/20/2023 8:07 AM CDT) Activated Partial Thrombopl Time, P 30 25 - 37 sec 07/20/2023 8:58 AM CDT DTL Blood (Blood, Venous) 07/20/2023 8:07 AM CDT 07/20/2023 8:38 AM CDT Woody Navarro M.D. LAB BLOOD ADD-O N Performing Organization Address [facility] Co de Phone Number [facility] [address] [place] [address] * Prothrombin Time (PT) (07/20/2023 8:07 AM [...] Woody Navarro M.D. LAB BLOOD ADD-O N [facility] [address] [place] [address], [place] DTL [facility] [address] [place] [address] from Last 3 Months Advance Directives For more information, please contact: [phone] Documents on File Type Date Recorded Patient Caddie Expl anation Advance Directives 02/02/2022 9:49 AM INV ALID * Full Code (Latest Code Status on File) Date Activated Date Inactivated Comments 02/01/2022 8:50 PM 02/02/2022 6:01 PM Question Answer Comments Full Code: Not Discussed Due to: Patient not available Care Teams Energy Broker Relationship Specialty Start Date End Date Elsewhere, Pcp PCP - General Family Medicine 02/01/22
--- OUTSIDE RECORDS SUMMARY | 2023-10-20 00:41 | XMS_ITS | Encounter Summary ---
Author Organization [facility] Address [address] [place] [address] Care Team Providers Care [employer] Sales Supervisor Name Role Phone Elsewhere, Pcp Primary Care Provider Unavailabl e Reason for Referral * Outpatient (Routine) - Authorized Specialty Diagnoses / Procedures Referred By Contac t Referred To Contact Radiation Oncology Tammie Hooks M.D., Ph.D. [address] [place] [address] [employer] Referral ID Status Reason Start Date Expiration Date V isits Requested Visits Authorized [id number] Authorized 10/11/2023 04/11/2025 1 1 Scheduling Instructions With scans * Outpatient (Routine) - Authorized Specialty Diagnoses / Procedures Referred By Contac t Referred To Contact Neurology Diagnoses Squamous Cell Carcinoma Of Skin Of Scalp And Neck Tammie Hooks M.D., Ph.D. [address] [place] [address] [employer] Referral ID Status Reason Start Date Expiration Date V isits Requested Visits Authorized [id number] Authorized 10/11/2023 04/11/2025 1 1 * Outpatient (Routine) - Closed Specialty Diagnoses / Procedures Referred By Ryan cronin Referred To Contact Radiation Oncology Tammie Hooks M.D., Ph.D. [address] [place] [phone] [employer] Referral ID Status Reason Start Date Expiration Date Visits Re quested Visits Authorized [id number] Closed 08/28/2023 02/26/2025 1 1 Reason for Visit * Outpatient (Routine) - Closed Specialty Diagnoses / Procedures Referred By Ryan cronin Referred To Contact Radiation Oncology Tammie Hooks M.D., Ph.D. [address] [place] [phone] [employer] Referral ID Status Reason Start Date Expiration Date Visits Re quested Visits Authorized [id number] Closed 08/28/2023 02/26/2025 1 1 Encounter Details Date Type Department Care Team (Latest Contact Info) Description 10/11/2023 3:30 PM CDT - 10/12/2023 10:05 AM CDT Hospital Encounter Department of Radiation Oncology in [place], [place] [address] [place] [phone] Tammie Hooks M.D., Ph.D. [address] [place] [phone] Squamous Cell Carcinoma Of Skin Of Scalp [...] any clubs o r organizations such as pentecostal groups, unions, fraternal or athletic groups, or [...] and heating? Not hard at all 09/02/2022 [facility] - Occupational [...] your living situation today? I have a [facility] place to live 02/16/2023 Education Answer Date Recorded What is the highest level of school you have completed or the highest degree you have received? Bachelor's degree (e.g., BA, AB, BS) 01/24/2022 Sex and Gender Information Value Date Recorded Sex Assigned at Female 01/24/2022 7:37 PM SPINNING OPERATOR Gender Identity Female 01/24/2022 7:37 PM SPINNING OPERATOR Sexual Orientation Straight 01/24/2022 7: 37 PM SPINNING OPERATOR documented as of this encounter Last Filed Vital Signs Vital Sign Reading Time Taken Comments Blood Pressure - - Pulse - - Temperature - - Respiratory Rate - - Oxygen Saturation - - Inhaled Oxygen Concentration - - Weight 59.1 kg (130 lb 3.2 oz) 10/11/2023 4:12 P M CDT Height - - Body Mass Index 22.34 10/11/2023 12:51 PM CDT documented in this encounter Medications [...] with cereal documented as of this encounter Progress Notes * Ty Palma M.D. - 10/11/2023 3:30 PM CDT SUBJECTIVE REQUESTING PROVIDER Tammie Hooks M.D., Ph.D. CHIEF COMPLAINT/REASON FOR VISIT The encounter diagnosis was Squamous Cell Carcinoma Of Skin Of Scalp And Neck. INTERVAL HISTORY: Mrs. Veronica Guevara is a 78 y.o. female who returns to radiation oncology clinic today for routine follow up. 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 She started cemiplimab on 08/08/23 due to a new skull lesion. Surveillance imaging today showed stable skull lesion. She has had no symptoms related to the skull lesion. She does report some concern regarding cognitive impairment and concerns about Alzheimer's disease given that she has a family history and has had recent word finding and memory issues. 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 Evaluated by bag checker Dr. Banuelos in [place] and was treated for possible psoriasis. The lesion persisted after 6 weeks. She was then treated with UV phototherapy between September and December of 2021. September 22, 2021---December 17, 2021: Underwent biopsy of the vertex scalp lesion which revealed squamous cell carcinoma. Incisional biopsy of left level 5 lymph node also revealed squamous cell carcinoma. 12/30/2021 Biopsy/Pathology A. Skin, scalp, vertex, excisional biopsy ([id number]; 12/30/2021): Invasive poorly differentiated squamous cell carcinoma, transected at base and lateral edge of the specimen. B. Neck, left, soft tissue, biopsy ([id number]; 01/13/2022): Invasive poorly differentiated squamous cell carcinoma [...] 08/08/2023 - Chemotherapy Cemiplimab-rwlc Start Date: 08/08/2023 OBJECTIVE PHYSICAL EXAMINATION General: Pleasant female in no apparent distress ASSESSMENT / PLAN Squamous cell carcinoma of scalp vertex Mrs. Guevara is a pleasant 78 year old female with hx of [id number] SqCC of the scalp vertex, 3.5 cmprimary, 1.1 cm DOI, LVI+, PNI-, margin-, 2/ LN on left with XIN, 1/3 LN on right XIN-. She completed 60 Gy to scalp and 60 Gy to bilateral necks (with 66 Gy/30 fx to two gross nodes), 54 Gy/ 30 fxto elective oumou radiation. She completed radiation treatment 04/29/2022. Head CT from 07/14/23 demonstrated right parieto-occipital lytic calvarial lesion. FNA of the skull lesion was non-diagnostic. The lesion is on the edge of the prior radiation field and so cemiplimab was started on 08/07/23. Since starting immunotherapy, the skull lesion has been stable, noted on imaging today. Because of this and since she has not had symptoms related to the lesion, we will hold off on radiation at this time and monitor the lesion on continued systemic therapy. She also mentions that she has been having word finding difficulties and memory issues. She is concerned that the cognitive impairment could be a sign of Alzheimer's disease given that she has a family history of Alzheimer's. Her and daughter have also noticed the word finding difficulties.Mrs. Guevara reports that this is abnormal for her and would be interested in further investigation and workup. Plan: - Hold off on radiation for now given stability of the lesion on systemic therapy and no symptoms due to the lesion - Follow up in the radiation oncology department in 3 months after next surveillance images are obtained. - Neurology consult placed to further investigate cognitive concerns Signed by: Ty Palma MD Resident Physician Radiation Oncology 10/11/23 8:23 PM CDT Lieutenant Ball[employer] Service: Dr. Tammie Hooks MD, PhD Associated attestation - Tammie Hooks M.D., Ph.D. - 10/12/2023 10:05 AM CDT I independently reviewed the medical record, verified (and modified as necessary) the information in the Oncology History, and reviewed laboratory, radiological, and pathology aspects of the medical condition. I discussed the clinical situation with Dr. Ty Palma before he met with the patient,and we mutually decided on a course of medical management. I also met with the patient for a [id number]-md-[id number] encounter to verify the history, discuss patient expectation and preference, and provide recommendations which are in agreement with those outlined by Dr. Ty Palma in the encounter of thisdate. 78 year old female with hx of [id number] SqCC of the scalp vertex, 3.5 cm primary, 1.1 cm DOI, LVI+, PNI-, margin-, 2/ LN on left with XIN, 1/3 LN on right XIN- . She completed 60 Gy to scalp and 60 Gy to bilateral necks (with 66 Gy/30 fx to two gross nodes), 54 Gy/ 30 fx to elective oumou radiation. She completed radiation treatment 04/29/2022. On exam scalp skin looks stable. MRI and CT both reviewed and stable. Symptomatically doing well with lots of energy. She has significant life stressors with worry about cancer and caring for her who has significant problems with vision. She is concerned about memory, particularly word finding difficulty. Her shares they both have some trouble remembering dates and appointments. Both of them did not remember her getting a biopsy in July. Her daughter thinks her remote memory is excellent, but does not share concerns about memory now, although she does notice the word finding difficulty. We will refer to Neurology for evaluation at her request. Dr. Frey would like to continue Cemiplimab given stability of lesion and no new lesions, and this sounds like a good plan. Can consider SBRT to lesion in future but I am worried about her skin givenoverlap. I will see her in 3 months with scans per Dr. Frey's team. Exam: Neuro: there is some word finding difficulty but A&Ox4 Skin: scalp stable from last visit, no concern for local recurrence. I personally spent 30 minutes in care of the patient today. Time includes both erp-mcjq-lz-face hajyaqc-nn-maav patient care. Tammie Hooks MD PhD Relations Coordinator Lieutenant [employer] Radiation Oncology 10/12/23 10:00 AM CDT Pager: [phone] documented in this encounter Plan of Treatment Upcoming Encounters Date Type Department Care Team (Late st Contact Info) Description 10/30/2023 11:00 AM CDT Clinical Communication Virtual Review in [place], [place] [address] [place] [phone] 11/01/2023 11:40 AM CDT Lab Department of Laboratory Medicine and Pathology, [facility], in [address] [phone] Remigio Frey M.D., Ph.D. [address] [place] [phone] 11/01/2023 1:40 PM CDT Office Visit Department of Oncology in [place], [place] [address] [place] [phone] Blanche Monzon P.A.-C., M.S. [address] [place] [phone] 11/01/2023 2:45 PM CDT Infusion Department of Oncology in [place], [place] [address] [place] [phone] Remigio Frey M.D., Ph.D. [address] [place] [phone] 11/08/2023 9:45 AM CDT Clinical Communication Virtual Review in [address] [phone] 11/10/2023 8:00 AM CDT Office Visit Department of Dermatology in [address] [phone] Emily Bell M.D. [address] [place] [phone] 11/17/2023 11:00 AM CDT Clinical Communication Virtual Review in [address] [phone] 11/21/2023 11:10 AM CDT Lab Department of Laboratory Medicine and Pathology, [facility], in [address] [phone] Remigio Frey M.D., Ph.D. [address] [place] [phone] 11/21/2023 1:00 PM CDT Office Visit Department of Oncology in [address] [address] Mc Mcknight M.D., Ph.D. [address] [place] [phone] 11/21/2023 2:15 PM CDT Infusion Department of Oncology in [place], [place] [address] [place] [phone] Remigio Frey M.D., Ph.D. [address] [place] [phone] 12/11/2023 1:45 PM CDT Clinical Communication Virtual Review in [place], [place] [address] [place] [address] 12/12/2023 11:00 AM CDT Lab Department of Laboratory Medicine and Pathology, [facility], in [place], [place] [address] [place] [phone] Remigio Frey M.D., Ph.D. [address] [place] [phone] 12/12/2023 1:00 PM CDT Office Visit Department of Oncology in [place], [place] [address] [place] [phone] Mc Mcknight M.D., Ph.D. [address] [place] [phone] 12/12/2023 3:00 PM CDT Infusion Department of Oncology in [place], [place] [address] [place] [phone] Remigio Frey M.D., Ph.D. [address] [place] [phone] 01/17/2024 9:00 AM SPINNING OPERATOR Clinical Communication Virtual Review in [address] [phone] 01/19/2024 2:30 PM SPINNING OPERATOR Comprehensive Visit Department of Neurology in [place], [place] [address] [place] [phone] Kory Alas M.B., Ch.B. 200 [facility] [place] [phone] Scheduled Orders Name Type Priority Associated Diagnoses Orde r Schedule Vitamin B12 Assay Lab Routine Squamous Cell Carcinoma Of Skin Of Scalp And Neck 1 Occurrences starting 10/11/2023 until 01/10/2025 Folate Lab Routine Squamous Cell Carcinoma Of Skin Of Scalp And Neck Expected: 10/11/2023, Expires: 01/10/2025 Scheduled Referrals Name Type Priority Associated Diagnoses Order Schedule Radiation Oncology office visit (clinic) Outpatient Referral Routine Once for 1 Occurrences starting 10/11/2023 until 10/11/2023 Neurology - Cognitive and dementia consult (clinic) Outpatient Referral Routine Squamous Cell Carcinoma Of Skin Of Scalp And Neck Expected: 10/11/2023 (Approximate), Expires: 01/10/2025 Radiation Oncology office visit (clinic) Outpatient Referral Routine Expected: (Approximate), Expires: 01/10/2025 documented as of this encounter Visit Diagnoses Diagnosis Squamous Cell Carcinoma Of Skin Of Scalp And Neck- Primary Malignant Neoplasm Of Neck Squamous Cell- Primary Secondary Malignant Neoplasm Bone (HCC) 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
--- OUTSIDE RECORDS SUMMARY | 2023-10-20 00:41 | XMS_ITS | Encounter Summary ---
Author Organization [facility] Address [address] [place] [address] Care Team Providers Care Skidder Driver Name Role Phone Elsewhere, Pcp Primary Care Provider Unavailabl e Reason for Referral * Outpatient (Routine) - Authorized Specialty Diagnoses / Procedures Referred By Ryan cronin Referred To Contact Dermatology Diagnoses Squamous Cell Carcinoma Of Skin Of Scalp And Neck Secondary Malignant Neoplasm Bone (HCC) Other Commercial Banker Current 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 Blanche Monzon P.A.-C., M.S. [address] [place] [address] [facility] Referral ID Status Reason Start Date Expiration Date V isits Requested Visits Authorized [id number] Authorized 09/19/2023 03/20/2025 1 1 Reason for Visit * Episode Based Medications (Routine) - Authorized Specialty Diagnoses / Procedures Referred By Ryan cronin Referred To Contact Diagnoses Other Commercial Banker Current 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 Blanche Monzon P.A.-C., M.S. [address] [place] [address] [facility] [address] [place] [address] Referral ID Status Reason Start Date Expiration Date V isits Requested Visits Authorized [id number] Authorized 07/28/2023 07/27/2025 99 99 Encounter Details Date Type Department Care Team (Late st Contact Info) Description 09/19/2023 1:00 PM CDT Office Visit Department of Oncology in [place], [place] [address] [place] [phone] Blanche Monzon P.A.-C., M.S. [address] [place] [phone] Squamous Cell Carcinoma Of Skin Of Scalp And Neck (Primary Dx); Secondary Malignant Neoplasm Bone (HCC); Other Senior Living Current 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 Social History Tobacco Use Types Packs/Day Years [...] week 01/24/2022 How often do you attend [facility] or roman catholic services? Never 01/24/2022 Do [...] and heating? Not hard at all 09/02/2022 [facility] - [...] your living situation today? I have a [place] place to live 02/16/2023 Education Answer Date Recorded What is the highest level of school you have completed or the highest degree you have received? Bachelor's degree (e.g., BA, AB, BS) 01/24/2022 Sex and Gender Information Value Date Recorded Sex Assigned at Female 01/24/2022 7:37 PM CASING RUNNER Gender Identity Female 01/24/2022 7:37 PM CASING RUNNER Sexual Orientation Straight 01/24/2022 7: 37 PM CASING RUNNER documented as of this encounter Last Filed Vital Signs Vital Sign Reading Time Taken Comments Blood Pressure 105/61 09/19/2023 12:45 PM CDT Pulse 65 09/19/2023 12:45 PM CDT Temperature 36.5 ??C (97.7 ??F) 09/19/2023 1 2:45 PM CDT Respiratory Rate 16 09/19/2023 12:4 5 PM CDT Oxygen Saturation 98% 09/19/2023 12: 45 PM CDT Inhaled Oxygen Concentration - - Weight 58.9 kg (129 lb 13.6 oz) 024 12:45 PM CDT Height 163.5 cm (5' 4.37) 09/19/2023 1 2:45 PM CDT Body Mass Index 22.03 09/19/2023 12:45 PM CDT documented in this encounter Progress Notes * Blanche Monzon P.A.-C., M.S. - 09/19/2023 1:00 PM CDT SUBJECTIVE REQUESTING PROVIDER Blanche Monzon P.A.-C., M.S. [address] [place] [address] PRIMARY COLLABORATING PROVIDER Mc Mcknight M.D., Ph.D. Blanche Monzon P.A.-C., M.S. COLLABORATING PROVIDER TODAY Mc Mcknight M.D., Ph.D. CHIEF CONCERN Veronica Guevara is a 78 y.o. female with regionally advanced squamous cell carcinoma who presents today to for next cycle of cemiplimab. HISTORY OF PRESENT ILLNESS Oncology History Oncology History Squamous Cell Carcinoma Of Skin Of Scalp And Neck 07/2021 Initial Diagnosis July 2021: Noticed a lesion on the vertex of the scalp. Evaluated by wood grinder Dr. Banuelos in [place] and was treated for possible psoriasis. The lesion persisted after 6 weeks. She was then treated with UV phototherapy between September and December of 2021. September 22, 2021---December 17, 2021: Underwent biopsy of the vertex scalp lesion which revealed squamous cell carcinoma. Incisional biopsy of left level 5 lymph node also revealed squamous cell carcinoma. 12/30/2021 Biopsy/Pathology A. Skin, scalp, vertex, excisional biopsy ([id number]; 12/30/2021): Invasive poorly differentiated squamous cell carcinoma, transected at base and lateral edge of the specimen. B. Neck, left, soft tissue, biopsy ([id number]; 01/13/2022): Invasive poorly differentiated squamous cell carcinoma [...] - Chemotherapy Cemiplimab-rwlc Start Date: 08/08/2023 INTERVAL HISTORY Veronica Guevara presents to clinic today accompanied by her , Andre. She reports good tolerance of cemiplimab. She does feel like her tinnitus has become more notable. Over the last two days Veronica has noted intermittent episodes of shooting pain in her left ear as well. She states this has happened only a couple of times and is short-lived. Lastly, she notes a spot on the vertex of her scalp along previous surgical scar has a small scab. REVIEW OF SYSTEMS A 14-point review of systems was completed and negative except as noted above in the interval history. OBJECTIVE PAST MEDICAL/SURGICAL HISTORY Past Medical History: Diagnosis Date Cataract 2021 [...] MEDICATIONS Active Home Medications Medication Sig Taking cholecalciferol, vitamin D3, (cholecalciferol) 25 mcg (1,000 Unit) tablet Take 25 mcg by mouth daily. hydrocortisone 2.5 % ointment Mix with the ketoconazole and apply twice daily for up to 2 weeks as a time for flares of rash involving the buttocks, under the breast, or on the face. ketoconazole (NIZORAL) 2 % cream Apply 1 Application topically 2 (two) times a day as needed for rash or irritation. Apply to red, itchy areas on the central face and eyebrows as well as over the supragluteal cleft ketoconazole (NIZORAL) 2 % shampoo Apply 1 Application topically 3 (three) times a week. Apply to damp skin, lather, leave on 5 minutes, and rinse levothyroxine (Synthroid) 50 mcg tablet Take 1 tablet (50 mcg total) by mouth daily. methylcellulose, laxative, (CITRUCEL) 500 mg tablet Take by mouth daily. Heaping tablespoon in water once daily rosuvastatin (CRESTOR) 10 mg tablet Take 10 mg by mouth at bedtime. ubiquinone (COENZYME Q10) 100 mg tablet Take 100 mg by mouth daily. UNABLE TO FIND Take 1 each by mouth daily. Med Name: Collagen powder, 1 scoop every morning with cereal SOCIAL HISTORY Veronica Guevara lives in [place], [place], with her , Andre. Retired. PHYSICAL EXAMINATION ECOG performance score: 0 - asymptomatic BP 105/61 (BP Location: Right arm, Patient Position: Sitting, Cuff Size: Regular) Pulse 65 Temp36.5 ??C (Tympanic) Resp 16 Ht 163.5 cm Wt 58.9 kg SpO2 98% BMI 22.03 kg/m?? General: Well-developed female sitting comfortably in clinic room. Eyes: Extraocular movements intact. ENT: Mucous membranes moist. Neck: No thyromegaly noted. Lymph Nodes: No cervical, supraclavicular, axillary, or inguinal lymphadenopathy. Cardiovascular: Regular rate and rhythm. No murmurs, rubs, or gallops. Lungs: Clear to auscultation bilaterally. No use of accessory muscles. No rales, rhonchi, or wheezes. Extremities: No edema or cyanosis. Musculoskeletal: Normal range of motion. No swollen or erythematous joints. Skin: Warm and dry. No visible rashes. Neurological: Alert and oriented x 3. Psychiatry: No overt anxiety or depression. DIAGNOSTICS LABORATORY DATA Recent Results (from the past 24 hour(s)) CBC with Differential, Blood Collection Time: 09/19/23 10:57 AM Result Value Hemoglobin 12.5 Hematocrit 38.6 Erythrocytes 4.34 MCV 88.9 RBC Distrib Width 12.4 Platelet Count 222 Leukocytes 4.9 Neutrophils 3.66 Lymphocytes 0.66 (L) Monocytes 0.45 Eosinophils 0.09 Basophils <0.03 Comprehensive Metabolic Panel Collection Time: 09/19/23 10:57 AM Result Value Potassium, S 3.7 Sodium, S 140 Chloride, S 104 Bicarbonate, S 28 Anion Gap 8 BUN (Blood Urea Nitrogen), S 16 Creatinine 0.74 Estimated GFR (eGFR) 83 Calcium, Total, S 9.2 Glucose, S 71 Protein, Total, S 6.5 Albumin, S 4.2 Aspartate Aminotransferase (AST), S 41 Alkaline Phosphatase, S 95 Alanine Aminotransferase (ALT), S 26 Bilirubin, Total, S 0.3 Bilirubin, Direct Collection Time: 09/19/23 10:57 AM Result Value Bilirubin, Direct, S <0.2 Thyroid Function Korbel Collection Time: 09/19/23 10:57 AM Result Value TSH, Sensitive 2.4 RADIOLOGICAL DATA Reviewed. ASSESSMENT / PLAN #1 Squamous Cell Carcinoma Of Skin Of Scalp And Neck #2 Secondary Malignant Neoplasm Bone (HCC) #3 Other Senior Living Current 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 Veronica Guevara is a 78 y.o. female with regionally advanced squamous cell carcinoma who presents today to for next cycle of cemiplimab. She reports good tolerance of cemiplimab. She does feel like her tinnitus has become more notable. Over the last two days Veronica has noted intermittent episodes of shooting pain in her left ear as well. She states this has happened only a couple of times and is short-lived. Lastly, she notes a spot on the vertex of her scalp along previous surgical scar has a small scab. I offered referral to audiology to assess tinnitus, but Veronica would like to hold off at this time. If intermittent ear pains become more frequent/intense, I have asked she reach out to our team prior to her next visit. Labs unremarkable. Per clinical evaluation, ECOG status, and lab review, patient is okay to proceed with infusion today. Plan to return to clinic in 3 weeks for next cemiplimab infusion. Imaging scheduled for 10/11/23. I have also placed an order for a spot check with our colleagues in dermatology to look at the spot on the vertex of her scalp. PATIENT EDUCATION Ready to learn, no apparent learning barriers were identified; learning preferences include listening. Explained diagnosis and treatment plan; patient expressed understanding of the content. Discussed with the patient we work together as a care team of physicians, nurse practitioners/physician assistants, nurses and other support teacher that specialize in this cancer. Also, reviewed the importance of maintaining ongoing care with local oncology team and primary care physician. BILLING I spent an additional 15 minutes beyond treatment clearance reviewing chart, managing above symptoms, and placing follow-up orders. documented in this encounter Plan of Treatment Upcoming Encounters Date Type Department Care Team (Late st Contact Info) Description 10/30/2023 11:00 AM CDT Clinical Communication Virtual Review in [address] [phone] 11/01/2023 11:40 AM CDT Lab Department of Laboratory Medicine and Pathology, [facility], in [address] [phone] Remigio Frey M.D., Ph.D. [address] [place] [phone] 11/01/2023 1:40 PM CDT Office Visit Department of Oncology in [address] [phone] Blanche Monzon P.A.-C., M.S. [address] [place] [phone] 11/01/2023 2:45 PM CDT Infusion Department of Oncology in [place], [place] [address] [place] [phone] Remigio Frey M.D., Ph.D. [address] [place] [phone] 11/08/2023 9:45 AM CDT Clinical Communication Virtual Review in [address] [phone] 11/10/2023 8:00 AM CDT Office Visit Department of Dermatology in [address] [phone] Emily Bell M.D. [address] [place] [phone] 11/17/2023 11:00 AM CDT Clinical Communication Virtual Review in [address] [phone] 11/21/2023 11:10 AM CDT Lab Department of Laboratory Medicine and Pathology, [facility], in [address] [phone] Remigio Frey M.D., Ph.D. [address] [place] [phone] 11/21/2023 1:00 PM CDT Office Visit Department of Oncology in [place], [place] [address] [place] [phone] Mc Mcknight M.D., Ph.D. [address] [place] [phone] 11/21/2023 2:15 PM CDT Infusion Department of Oncology in [address] [phone] Remigio Frey M.D., Ph.D. [address] [place] [phone] 12/11/2023 1:45 PM CDT Clinical Communication Virtual Review in [place], [place] [address] [place] [address] 12/12/2023 11:00 AM CDT Lab Department of Laboratory Medicine and Pathology, [facility], in [place], [place] [address] [place] [phone] Remigio Frey M.D., Ph.D. [address] [place] [phone] 12/12/2023 1:00 PM CDT Office Visit Department of Oncology in [address] [address] Mc Mcknight M.D., Ph.D. [address] [place] [phone] 12/12/2023 3:00 PM CDT Infusion Department of Oncology in [address] [address] Remigio Frey M.D., Ph.D. [address] [place] [phone] 01/17/2024 9:00 AM CASING RUNNER Clinical Communication Virtual Review in [address] [phone] 01/19/2024 2:30 PM CASING RUNNER Comprehensive Visit Department of Neurology in [address] [phone] Kory Alas M.B., Ch.B. [address] [place] [phone] Scheduled Referrals Name Type Priority Associated Diagnoses Order Schedule Dermatology - Skin check consult (clinic) Outpatient Referral Routine Squamous Cell Carcinoma Of Skin Of Scalp And Neck Secondary Malignant Neoplasm Bone (HCC) Other Senior Living Current 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 Expected: 10/11/2023, Expires: 12/19/2024 documented as of this encounter Visit Diagnoses Diagnosis Squamous Cell Carcinoma Of Skin Of Scalp And Neck- Primary Secondary Malignant Neoplasm Bone (HCC) Other Commercial Banker Current 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 Malignant Neoplasm Of Neck Squamous Cell- Primary Secondary Malignant Neoplasm Bone (HCC) Other Commercial Banker Current 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 documented in this encounter Care Teams Skidder Driver Relationship Specialty Start Date End Date Elsewhere, Pcp PCP - General Family Medicine 02/01/22 documented as of this encounter
--- OUTSIDE RECORDS SUMMARY | 2023-10-20 00:41 | XMS_ITS | Encounter Summary ---
Author Organization [facility] Address [address] [place] [address] Care Team Providers Care Server Support Technician Name Role Phone Elsewhere, Pcp Primary Care Provider Unavailabl e Reason for Visit * Reason Onset Date Comments Blood Pressure 10/09/2023 Encounter Details Date Type Department Care Team (Latest Contact Info) Description 10/09/2023 10:45 AM CDT Clinical Communication Virtual Review in [place], [place] [address] [place] [address] Blood Pressure Social History Tobacco Use Types Packs/Day Years [...] and heating? Not hard at all 09/02/2022 [facility] [...] your living situation today? I have a [facility] place to live 02/16/2023 Education Answer Date Recorded What is the highest level of school you have completed or the highest degree you have received? Bachelor's degree (e.g., BA, AB, BS) 01/24/2022 Sex and Gender Information Value Date Recorded Sex Assigned at Female 01/24/2022 7:37 PM RELAY OPERATOR Gender Identity Female 01/24/2022 7:37 PM RELAY OPERATOR Sexual Orientation Straight 01/24/2022 7: 37 PM RELAY OPERATOR documented as of this encounter Plan of Treatment Upcoming Encounters Date Type Department Care Team (Late st Contact Info) Description 10/30/2023 11:00 AM CDT Clinical Communication Virtual Review in [place], [place] [address] [place] [address] 11/01/2023 11:40 AM CDT Lab Department of Laboratory Medicine and Pathology, [facility], in [place], [place] [address] [place] [phone] Remigio Frey M.D., Ph.D. [address] [place] [phone] 11/01/2023 1:40 PM CDT Office Visit Department of Oncology in [place], [place] [address] [place] [phone] Blanche Monzon P.A.-C., M.S. [address] [place] [phone] 11/01/2023 2:45 PM CDT Infusion Department of Oncology in [place], [place] [address] [place] [phone] Remigio Frey M.D., Ph.D. [address] [place] [phone] 11/08/2023 9:45 AM CDT Clinical Communication Virtual Review in [place], [place] 200 [place] [address] 11/10/2023 8:00 AM CDT Office Visit Department of Dermatology in [address] [phone] Emily Bell M.D. [address] [place] [phone] 11/17/2023 11:00 AM CDT Clinical Communication Virtual Review in [address] [phone] 11/21/2023 11:10 AM CDT Lab Department of Laboratory Medicine and Pathology, [facility] in [address] [phone] Remigio Frey M.D., Ph.D. [address] [place] [phone] 11/21/2023 1:00 PM CDT Office Visit Department of Oncology in [address] [phone] Mc Mcknight M.D., Ph.D. [address] [place] [phone] 11/21/2023 2:15 PM CDT Infusion Department of Oncology in [address] [address] Remigio Frey M.D., Ph.D. [address] [place] [phone] 12/11/2023 1:45 PM CDT Clinical Communication Virtual Review in [place], [place] 200 [place] [address] 12/12/2023 11:00 AM CDT Lab Department of Laboratory Medicine and Pathology, [facility], in [place], [place] [address] [place] [phone] Remigio Frey M.D., Ph.D. [address] [place] [phone] 12/12/2023 1:00 PM CDT Office Visit Department of Oncology in [place], [place] [address] [place] [phone] Mc Mcknight M.D., Ph.D. [address] [place] [phone] 12/12/2023 3:00 PM CDT Infusion Department of Oncology in [place], [place] [address] [place] [phone] Remigio Frey M.D., Ph.D. [address] [place] [phone] 01/17/2024 9:00 AM RELAY OPERATOR Clinical Communication Virtual Review in [place], [place] 200 [place] [address] 01/19/2024 2:30 PM RELAY OPERATOR Comprehensive Visit Department of Neurology in [place], [place] [address] [place] [phone] Kory Alas M.B., Ch.B. [address] [place] [phone] documented as of this encounter Visit Diagnoses Not on filedocumented in this encounter Care Teams Server Support Technician Relationship Specialty Start Date End Date Elsewhere, Pcp PCP - General Family Medicine 02/01/22 documented as of this encounter
--- OUTSIDE RECORDS SUMMARY | 2023-10-20 00:42 | XMS_ITS | Encounter Summary ---
Author Organization [facility] Address [address] [place] [phone] Care Team Providers Care Link Fabric Machine Operator Name Role Phone Elsewhere, Pcp Primary Care Provider Unavailabl e Reason for Visit * Episode Based Medications (Routine) - Authorized Specialty Diagnoses / Procedures Referred By Contac t Referred To Contact Diagnoses Other Cyber Defense Forensics Analyst Current 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 Nnamdi Jovel P.A.-C., M.S. [address] [place] [phone] Rst Onc Rogo [address] [place] [phone] Referral ID Status Reason Start Date Expiration Date V isits Requested Visits Authorized [id number] Authorized 07/28/2023 07/27/2025 99 99 Encounter Details Date Type Department Care Team (Late st Contact Info) Description 08/08/2023 1:40 PM CDT Office Visit Department of Oncology in [place], [place] [address] [place] [phone] Nnamdi Jovel P.A.-C., M.S. [address] [place] [phone] Secondary Malignant Neoplasm Bone (HCC); Squamous Cell Carcinoma Of Skin Of Scalp And Neck; Other Cyber Defense Forensics Analyst Current 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 Social History Tobacco Use [...] often do you attend chur ch or buddhist services? Never 01/24/2022 Do you belong to any clubs o r organizations such as confucianist groups, unions, fraternal or athletic groups, or [...] and heating? Not hard at all 09/02/2022 [facility] - Occupational Stress Questionnaire Answer Date Recorded [...] Sex Assigned at Female 01/24/2022 7:37 PM REHABILITATION COORDINATOR Gender Identity Female 01/24/2022 7:37 PM REHABILITATION COORDINATOR Sexual Orientation Straight 01/24/2022 7: 37 PM REHABILITATION COORDINATOR documented as of this encounter Last Filed Vital Signs Vital Sign Reading Time Taken Comments Blood Pressure 98/60 08/08/2023 1:37 PM CDT Pulse 63 08/08/2023 1:37 PM CDT Temperature 36.3 ??C (97.3 ??F) 08/08/2023 1:37 PM CD T Respiratory Rate 16 08/08/2023 1:37 PM CDT Oxygen Saturation 97% 08/08/2023 1:37 PM CDT Inhaled Oxygen Concentration - - Weight 58.7 kg (129 lb 6.6 oz) 08/08/2023 1:37 P M CDT Height 160 cm (5' 2.99) 08/08/2023 1:37 PM CDT Body Mass Index 22.93 08/08/2023 1:37 PM CDT documented in this encounter Progress Notes * Nnamdi Jovel P.A.-C., M.S. - 08/08/2023 1:40 PM CDT SUBJECTIVE REQUESTING PROVIDER Nnamdi Jovel P.A.-C., M.S. [address] [place] [phone] PRIMARY COLLABORATING PROVIDER Mc Mcknight M.D., Ph.D. Nnamdi Jovel P.A.-C., M.S. COLLABORATING PROVIDER TODAY Mc Mcknight M.D., Ph.D. CHIEF CONCERN Veronica Guevara is a 78 y.o. female with regionally advanced squamous cell carcinoma who presents today to initiate cemiplimab therapy. HISTORY OF PRESENT ILLNESS Oncology History Oncology History Squamous Cell Carcinoma Of Skin Of Scalp And Neck 07/2021 Initial Diagnosis July 2021: Noticed a lesion on the vertex of the scalp. Evaluated by television news photographer Dr. Banuelos in [place] and was treated for possible psoriasis. The lesion persisted after 6 weeks. She was then treated with UV phototherapy between September and December of 2021. September 22, 2021---December 17, 2021: Underwent biopsy of the vertex scalp lesion which revealed squamous cell carcinoma. Incisional biopsy of left level 5 lymph node also revealed squamous cell carcinoma. 12/30/2021 Biopsy/Pathology A. Skin, scalp, vertex, excisional biopsy ([id number]; 12/30/2021): Invasive poorly differentiated squamous cell carcinoma, transected at base and lateral edge of the specimen. B. Neck, left, soft tissue, biopsy ([id number]; 01/13/2022): Invasive poorly differentiated squamous cell carcinoma [...] 08/08/2023 - Chemotherapy Cemiplimab-rwlc Start Date: 08/08/2023 (Planned) INTERVAL HISTORY Veronica Guevara presents to clinic today accompanied by her , Andre. She reports feeling wellat today's visit. REVIEW OF SYSTEMS A 14-point review of [...] tablet Take 25 mcg by mouth daily. Yes hydrocortisone 2.5 % ointment Mix with the ketoconazole and apply twice daily for up to 2 weeks as a time for flares of rash involving the buttocks, under the breast, or on the face. Yes ketoconazole (NIZORAL) 2 % cream Apply 1 Application topically 2 (two) times a day as needed for rash or irritation. Apply to red, itchy areas on the central face and eyebrows as well as over the supragluteal cleft Yes ketoconazole (NIZORAL) 2 % shampoo Apply 1 Application topically 3 (three) times a week. Apply to damp skin, lather, leave on 5 minutes, and rinse Yes levothyroxine (Synthroid) 50 mcg tablet Take 1 tablet (50 mcg total) by mouth daily. Yes methylcellulose, laxative, (CITRUCEL) 500 mg tablet Take by mouth daily. Heaping tablespoon in water once daily Yes rosuvastatin (CRESTOR) 10 mg tablet Take 10 mg by mouth at bedtime. Yes ubiquinone (COENZYME Q10) 100 mg tablet Take 100 mg by mouth daily. Yes UNABLE TO FIND Take 1 each by mouth daily. Med Name: Collagen powder, 1 scoop every morning with cereal Yes neomycin-polymyxin B-dexameth (MAXITROL) 3.5 mg/g-10,000 unit/g-0.1 % ophthalmic ointment Apply to left eye as needed. SOCIAL HISTORY Veronica Guevara lives in [place], [place], with her , Andre. Retired. PHYSICAL EXAMINATION ECOG performance score: 0 - asymptomatic BP 98/60 (BP Location: Left arm, Patient Position: Sitting, Cuff Size: Regular) Pulse 63 Temp 36.3 ??C (Tympanic) Resp 16 Ht 160 cm Wt 58.7 kg SpO2 97% BMI 22.93 kg/m?? General: Well-developed female sitting comfortably in clinic room. Eyes: Extraocular movements intact. ENT: Mucous membranes moist. Extremities: No edema or cyanosis. Musculoskeletal: Normal range of motion. No swollen or erythematous joints. Skin: Warm and dry. No visible rashes. Neurological: Alert and oriented x 3. Psychiatry: No overt anxiety or depression. DIAGNOSTICS LABORATORY DATA Recent Results (from the past 24 hour(s)) CBC with Differential, Blood Collection Time: 08/08/23 11:12 AM Result Value Hemoglobin 12.2 Hematocrit 37.5 Erythrocytes 4.18 MCV 89.7 RBC Distrib Width 12.4 Platelet Count 206 Leukocytes 5.5 Neutrophils 4.25 Lymphocytes 0.72 (L) Monocytes 0.43 Eosinophils 0.08 Basophils 0.03 Comprehensive Metabolic Panel Collection Time: 08/08/23 11:12 AM Result Value Potassium, S 4.4 Sodium, S 141 Chloride, S 104 Bicarbonate, S 27 Anion Gap 10 BUN (Blood Urea Nitrogen), S 17 Creatinine 0.70 Estimated GFR (eGFR) 88 Calcium, Total, S 9.4 Glucose, S 96 Protein, Total, S 6.8 Albumin, S 4.3 Aspartate Aminotransferase (AST), S 32 Alkaline Phosphatase, S 91 Alanine Aminotransferase (ALT), S 22 Bilirubin, Total, S 0.4 Bilirubin, Direct Collection Time: 08/08/23 11:12 AM Result Value Bilirubin, Direct, S <0.2 Thyroid Function Adams Collection Time: 08/08/23 11:12 AM Result Value TSH, Sensitive 1.6 RADIOLOGICAL DATA Reviewed. ASSESSMENT / PLAN #1 Secondary Malignant Neoplasm Bone (HCC) #2 Squamous Cell Carcinoma Of Skin Of Scalp And Neck #3 Other Cyber Defense Forensics Analyst Current 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 Veronica Guevara is a 78 y.o. female with regionally advanced squamous cell carcinoma who presents today to initiate cemiplimab therapy. Clinically patient is feeling well. Labs unremarkable. Per clinical evaluation, ECOG status, and lab review, patient is okay to proceed with infusion today. Plan to return to clinic in 3 weeks for next infusion. Imaging scheduled for October. PATIENT EDUCATION Ready to learn, no apparent learning barriers were identified; learning preferences include listening. Explained diagnosis and treatment plan; patient expressed understanding of the content. Discussed with the patient we work together as a care team of physicians, nurse practitioners/physician assistants, nurses and other support group manager that specialize in this cancer. Also, reviewed the importance of maintaining ongoing care with local oncology team and primary care physician. documented in this encounter Miscellaneous Notes * Addendum Note - Nnamdi Jovel P.A.-C., M.S. - 08/08/2023 1:40 PM CDT Addended by: NNAMDI JOVEL on: 08/08/2023 02:53 PM Modules accepted: Orders documented in this encounter Plan of Treatment Upcoming Encounters Date Type Department Care Team (Late st Contact Info) Description 10/30/2023 11:00 AM CDT Clinical Communication Virtual Review in [address] [phone] 11/01/2023 11:40 AM CDT Lab Department of Laboratory Medicine and Pathology, [facility], in [place], [place] [address] [place] [phone] Remigio Frey M.D., Ph.D. [address] [place] [phone] 11/01/2023 1:40 PM CDT Office Visit Department of Oncology in [place], [place] [address] [place] [phone] Nnamdi Jovel P.A.-C., M.S. [address] [place] [phone] 11/01/2023 2:45 PM CDT Infusion Department of Oncology in [place], [place] [address] [place] [phone] Remigio Frey M.D., Ph.D. [address] [place] [phone] 11/08/2023 9:45 AM CDT Clinical Communication Virtual Review in [place], [place] 200 [place] [phone] 11/10/2023 8:00 AM CDT Office Visit Department of Dermatology in [place], [place] [address] [place] [phone] Emily Bell M.D. [address] [place] [phone] 11/17/2023 11:00 AM CDT Clinical Communication Virtual Review in [address] [phone] 11/21/2023 11:10 AM CDT Lab Department of Laboratory Medicine and Pathology, [facility], in [place], [place] [address] [place] [phone] Remigio Frey M.D., Ph.D. [address] [place] [phone] 11/21/2023 1:00 PM CDT Office Visit Department of Oncology in [place], [place] [address] [place] [phone] Mc Mcknight M.D., Ph.D. [address] [place] [phone] 11/21/2023 2:15 PM CDT Infusion Department of Oncology in [place], [place] [address] [place] [phone] Remigio Frey M.D., Ph.D. [address] [place] [phone] 12/11/2023 1:45 PM CDT Clinical Communication Virtual Review in [place], [place] 200 [place] [address] 12/12/2023 11:00 AM CDT Lab Department of Laboratory Medicine and Pathology, [facility], in [address] [phone] Remigio Frey M.D., Ph.D. [address] [place] [phone] 12/12/2023 1:00 PM CDT Office Visit Department of Oncology in [address] [phone] Mc Mcknight M.D., Ph.D. [address] [place] [phone] 12/12/2023 3:00 PM CDT Infusion Department of Oncology in [address] [phone] Remigio Frey M.D., Ph.D. [address] [place] [phone] 01/17/2024 9:00 AM REHABILITATION COORDINATOR Clinical Communication Virtual Review in [place], [place] [address] [place] [phone] 01/19/2024 2:30 PM REHABILITATION COORDINATOR Comprehensive Visit Department of Neurology in [place], [place] [address] [place] [phone] Kory Alas M.B., Ch.B. [address] [place] [phone] documented as of this encounter Visit Diagnoses Diagnosis 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 Other Cyber Defense Forensics Analyst Current 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 Malignant Neoplasm Of Neck Squamous Cell- Primary Secondary Malignant Neoplasm Bone (HCC) Other Cyber Defense Forensics Analyst Current 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 documented in this encounter Care Teams Link Fabric Machine Operator Relationship Specialty Start Date End Date Elsewhere, Pcp PCP - General Family Medicine 02/01/22 documented as of this encounter
--- OUTSIDE RECORDS SUMMARY | 2023-10-20 00:42 | XMS_ITS | Encounter Summary ---
Author Organization [facility] Address [address] [place] [phone] Care Team Providers Care Rolling Chair Pusher Name Role Phone Elsewhere, Pcp Primary Care Provider Unavailabl e Reason for Visit * Episode Based Medications (Routine) - Authorized Specialty Diagnoses / Procedures Referred By Contac t Referred To Contact Diagnoses Other Barrel Brander Current 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 Blanche Monzon P.A.-C., M.S. [address] [place] [phone] Rst Onc Rogo [address] [place] [phone] Referral ID Status Reason Start Date Expiration Date V isits Requested Visits Authorized [id number] Authorized 07/28/2023 07/27/2025 99 99 Encounter Details Date Type Department Care Team (Late st Contact Info) Description 09/19/2023 2:00 PM CDT Infusion Department of Oncology in [place], [place] [address] [place] [phone] Blanche Monzon P.A.-C., M.S. [address] [place] [phone] Malignant Neoplasm Of Neck Squamous Cell (Primary Dx); Secondary Malignant Neoplasm Bone (HCC); Squamous Cell Carcinoma Of Skin Of Scalp And Neck; Other Barrel Brander Current 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 Social History Tobacco Use [...] How often do you attend chur or adventism services? Never 01/24/2022 Do you [...] and heating? Not hard at all 09/02/2022 [facility] - Occupational Stress [...] Sex Assigned at Female 01/24/2022 7:37 PM INVESTIGATIVE SHOPPER Gender Identity Female 01/24/2022 7:37 PM INVESTIGATIVE SHOPPER Sexual Orientation Straight 01/24/2022 7: 37 PM INVESTIGATIVE SHOPPER documented as of this encounter Plan of Treatment Upcoming Encounters Date Type Department Care Team (Late st Contact Info) Description 10/30/2023 11:00 AM CDT Clinical Communication Virtual Review in [address] [phone] 11/01/2023 11:40 AM CDT Lab Department of Laboratory Medicine and Pathology, [facility], in [place], [place] [address] [place] [phone] Remigio Frey M.D., Ph.D. [address] [place] [phone] 11/01/2023 1:40 PM CDT Office Visit Department of Oncology in [address] [phone] Blanche Monzon P.A.-C., M.S. [address] [place] [phone] 11/01/2023 2:45 PM CDT Infusion Department of Oncology in [address] [phone] Remigio Frey M.D., Ph.D. [address] [place] [phone] 11/08/2023 9:45 AM CDT Clinical Communication Virtual Review in [address] [phone] 11/10/2023 8:00 AM CDT Office Visit Department of Dermatology in [address] [phone] Emily Bell M.D. [address] [place] [phone] 11/17/2023 11:00 AM CDT Clinical Communication Virtual Review in [address] [phone] 11/21/2023 11:10 AM CDT Lab Department of Laboratory Medicine and Pathology, [facility], in [place], [place] [address] [place] [phone] Remigio Frey M.D., Ph.D. [address] [place] [phone] 11/21/2023 1:00 PM CDT Office Visit Department of Oncology in [place], [place] [address] [place] [phone] Mc Mcknight M.D., Ph.D. [address] [place] [phone] 11/21/2023 2:15 PM CDT Infusion Department of Oncology in [place], [place] [address] [place] [phone] Remigio Frey M.D., Ph.D. [address] [place] [phone] 12/11/2023 1:45 PM CDT Clinical Communication Virtual Review in [place], [place] 200 [place] [address] 12/12/2023 11:00 AM CDT Lab Department of Laboratory Medicine and Pathology, [facility], in [place], [place] [address] [place] [phone] Remigio Frey M.D., Ph.D. [address] [place] [phone] 12/12/2023 1:00 PM CDT Office Visit Department of Oncology in [place], [place] [address] [place] [phone] Mc Mcknight M.D., Ph.D. [address] [place] [phone] 12/12/2023 3:00 PM CDT Infusion Department of Oncology in [place], [place] [address] [place] [phone] Remigio Frey M.D., Ph.D. [address] [place] [phone] 01/17/2024 9:00 AM INVESTIGATIVE SHOPPER Clinical Communication Virtual Review in [place], [place] 200 [place] [phone] 01/19/2024 2:30 PM INVESTIGATIVE SHOPPER Comprehensive Visit Department of Neurology in [place], [place] [address] [place] [phone] Kory Alas M.B., Ch.B. [address] [place] [phone] documented as of this encounter Visit Diagnoses Diagnosis Malignant Neoplasm Of Neck Squamous Cell- Primary 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 Other Jail Current 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 Malignant Neoplasm Of Neck Squamous Cell- Primary Secondary Malignant Neoplasm Bone (HCC) Other Barrel Brander Current 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 documented in this encounter Administered Medications Inactive Administered Medications - up to 3 most recent administrations Medication Order MAR Action Action Date Dose Rate Site cemiplimab-rwlc 350 mg in NaCl 0.9% 282 mL IVPB (Libtayo) 350 mg, intravenous, at 564 mL/hr, Administer over 30 Minutes, Once, On Mon09/19/23 at 1400, For 1 dose, Administer through in-line or add-on 0.2-micron to 5-micron filter. New Bag 09/19/2023 2:45 PM CDT 350 mg 564 mL/hr documented in this encounter Care Teams Rolling Chair Pusher Relationship Specialty Start Date End Date Elsewhere, Pcp PCP - General Family Medicine 02/01/22 documented as of this encounter
--- OUTSIDE RECORDS SUMMARY | 2023-10-20 00:42 | XMS_ITS | Encounter Summary ---
Author Organization [facility] Address 200 [place] [address] Care Team Providers Care Office Services Specialist Name Role Phone Elsewhere, Pcp Primary Care Provider Unavailabl e Reason for Visit * Reason Onset Date Comments Sx- foot vibration 08/16/2023 Encounter Details Date Type Department Care Team (Latest Contact Info) Description 08/16/2023 Clinical Communication Department of Oncology in [place], [place] [address] [place] [phone] Tammie Adams, RNeyN., O.C.N. 200 [place] [phone] Sx- foot vibration Social History Tobacco Use Types Packs/Day Years [...] often do you attend chur ch or rastafarian services? Never 01/24/2022 Do you belong to [...] at all 09/02/2022 [facility] - Occupational Stress Questionnaire Answer Date [...] the money to buy more. Never true 12/14/20 23 Within the past 12 months, t [...] your living situation today? I have a [facility] place to live 02/16/2023 Education Answer Date Recorded What is the highest level of school you have completed or the highest degree you have received? Bachelor's degree (e.g., BA, AB, BS) 01/24/2022 Sex and Gender Information Value Date Recorded Sex Assigned at Female 01/24/2022 7:37 PM SALES VENDOR Gender Identity Female 01/24/2022 7:37 PM SALES VENDOR Sexual Orientation Straight 01/24/2022 7: 37 PM SALES VENDOR documented as of this encounter Miscellaneous Notes * Telephone Encounter - Ekta Oscar, R.N. - 08/16/2023 2:47 PM CDT ASSESSMENT Spoke with Mrs. Guevara in regards to her previous phone call. She reports that yesterday she feltsome tingling in her right hand. She also reports her right sole of her foot has a pulsing, tingling, and vibrating sensation. She denies any pain, numbness, swelling, weakness, or fevers. She however reports having at least pimple like hives on her forehead and arms. She noticed this a couple of days ago. She reports it was originally painful to touch however it is not as tender currently. She does report it continues to be itchy. She has used Eucerin, Vaseline, and ketoconazole shampoo without change. PLAN Update provider Disposition/Recommendation: notified provider and awaiting recommendations. Information/Education: patient/caller able to teach back. Caller agreeable to plan of care: yes. The following references were used: nursing clinical judgement. ADDENDUM: Let Mrs. Guevara know that Blanche would like her to continue to monitor the tingling sensation. If her symptoms gets worse/progressive in any way to please give us a call back. For her hives she can take either Zyrtec or Claritin 10 mg daily and apply hydrocortisone twice a day. We willcheck back in a week to see how she is doing. documented in this encounter Plan of Treatment Upcoming Encounters Date Type Department Care Team (Late st Contact Info) Description 10/30/2023 11:00 AM CDT Clinical Communication Virtual Review in [address] [phone] 11/01/2023 11:40 AM CDT Lab Department of Laboratory Medicine and Pathology, [facility], in [address] [phone] Remigio Frey M.D., Ph.D. [address] [place] [phone] 11/01/2023 1:40 PM CDT Office Visit Department of Oncology in [address] [phone] Blanche Monzon P.A.-C., M.S. [address] [place] [phone] 11/01/2023 2:45 PM CDT Infusion Department of Oncology in [address] [phone] Remigio Frey M.D., Ph.D. [address] [place] [phone] 11/08/2023 9:45 AM CDT Clinical Communication Virtual Review in [place], [place] 200 [place] [address] 11/10/2023 8:00 AM CDT Office Visit Department of Dermatology in [place], [place] [address] [place] [phone] Emily Bell M.D. [address] [place] [phone] 11/17/2023 11:00 AM CDT Clinical Communication Virtual Review in [address] [phone] 11/21/2023 11:10 AM CDT Lab Department of Laboratory Medicine and Pathology, [facility] in [place], [place] [address] [place] [phone] Remigio Frey M.D., Ph.D. [address] [place] [phone] 11/21/2023 1:00 PM CDT Office Visit Department of Oncology in [place], [place] [address] [place] [phone] Mc Mcknight M.D., Ph.D. [address] [place] [phone] 11/21/2023 2:15 PM CDT Infusion Department of Oncology in [place], [place] [address] [place] [phone] Remigio Frey M.D., Ph.D. [address] [place] [phone] 12/11/2023 1:45 PM CDT Clinical Communication Virtual Review in [place], [place] 200 [place] [address] 12/12/2023 11:00 AM CDT Lab Department of Laboratory Medicine and Pathology, [facility], in [place], [place] [address] [place] [phone] Remigio Frey M.D., Ph.D. [address] [place] [phone] 12/12/2023 1:00 PM CDT Office Visit Department of Oncology in [address] [phone] Mc Mcknight M.D., Ph.D. [address] [place] [phone] 12/12/2023 3:00 PM CDT Infusion Department of Oncology in [place], [place] [address] [place] [phone] Remigio Frey M.D., Ph.D. [address] [place] [phone] 01/17/2024 9:00 AM SALES VENDOR Clinical Communication Virtual Review in [address] [phone] 01/19/2024 2:30 PM SALES VENDOR Comprehensive Visit Department of Neurology in [address] [phone] Kory Alas M.B., Ch.B. [address] [place] [phone] documented as of this encounter Visit Diagnoses Not on filedocumented in this encounter Care Teams Office Services Specialist Relationship Specialty Start Date End Date Elsewhere, Pcp PCP - General Family Medicine 02/01/22 documented as of this encounter
--- OUTSIDE RECORDS SUMMARY | 2023-10-20 00:42 | XMS_ITS | Encounter Summary ---
Author Organization [facility] Address [address] [place] [address] Care Team Providers Care Hand Sewer Shoes Name Role Phone Elsewhere, Pcp Primary Care Provider Unavailabl e Reason for Referral * Outpatient (Routine) - Closed Specialty Diagnoses / Procedures Referred By Contac t Referred To Contact Radiation Oncology Tammie Hooks M.D., Ph.D. [address] [place] [phone] [facility] Referral ID Status Reason Start Date Expiration Date Visits Re quested Visits Authorized [id number] Closed 08/28/2023 02/26/2025 1 1 Encounter Details Date Type Department Care Team (Late st Contact Info) Description 08/28/2023 Orders Only Department of Radiation Oncology in [place], [place] [address] [place] [phone] Tammie Hooks M.D., Ph.D. [address] [place] [phone] Social History Tobacco Use Types Packs/Day Years [...] any clubs o r organizations such as baptist groups, unions, fraternal or athletic groups, or [...] and heating? Not hard at all 09/02/2022 [facility] of Occupat ional Health - Occupational Stress [...] have [facility] to [facility] 02/16/2023 Education Answer Date Recorded What is the highest level of school you have completed or the highest degree you have received? Bachelor's degree (e.g., BA, AB, BS) 01/24/2022 Sex and Gender Information Value Date Recorded Sex Assigned at Female 01/24/2022 7:37 PM BAG END SEWER Gender Identity Female 01/24/2022 7:37 PM BAG END SEWER Sexual Orientation Straight 01/24/2022 7: 37 PM BAG END SEWER documented as of this encounter Plan of Treatment Upcoming Encounters Date Type Department Care Team (Late st Contact Info) Description 10/30/2023 11:00 AM CDT Clinical Communication Virtual Review in [address] [phone] 11/01/2023 11:40 AM CDT Lab Department of Laboratory Medicine and Pathology, [facility], in [place], [place] [address] [place] [phone] Remigio Frey M.D., Ph.D. [address] [place] [phone] 11/01/2023 1:40 PM CDT Office Visit Department of Oncology in [place], [place] [address] [place] [phone] Blanche Monzon P.A.-C., M.S. [address] [place] [phone] 11/01/2023 2:45 PM CDT Infusion Department of Oncology in [place], [place] [address] [place] [phone] Remigio Frey M.D., Ph.D. [address] [place] [phone] 11/08/2023 9:45 AM CDT Clinical Communication Virtual Review in [address] [phone] 11/10/2023 8:00 AM CDT Office Visit Department of Dermatology in [address] [phone] Emily Bell M.D. [address] [place] [phone] 11/17/2023 11:00 AM CDT Clinical Communication Virtual Review in [address] [phone] 11/21/2023 11:10 AM CDT Lab Department of Laboratory Medicine and Pathology, [facility], in [place], [place] [address] [place] [phone] Remigio Frey M.D., Ph.D. [address] [place] [phone] 11/21/2023 1:00 PM CDT Office Visit Department of Oncology in [address] [phone] Mc Mcknight M.D., Ph.D. [address] [place] [phone] 11/21/2023 2:15 PM CDT Infusion Department of Oncology in [address] [phone] Remigio Frey M.D., Ph.D. [address] [place] [phone] 12/11/2023 1:45 PM CDT Clinical Communication Virtual Review in [place], [place] 200 [place] [address] 12/12/2023 11:00 AM CDT Lab Department of Laboratory Medicine and Pathology, [facility], in [address] [phone] Remigio Frey M.D., Ph.D. [address] [place] [phone] 12/12/2023 1:00 PM CDT Office Visit Department of Oncology in [address] [phone] Mc Mcknight M.D., Ph.D. [address] [place] [phone] 12/12/2023 3:00 PM CDT Infusion Department of Oncology in [address] [address] Remigio Frey M.D., Ph.D. [address] [place] [phone] 01/17/2024 9:00 AM BAG END SEWER Clinical Communication Virtual Review in [place], [place] 200 [place] [address] 01/19/2024 2:30 PM BAG END SEWER Comprehensive Visit Department of Neurology in [place], [place] [address] [place] [phone] Kory Alas M.B., Ch.B. [address] [place] [phone] Scheduled Referrals Name Type Priority Associated Diagnoses Orde r Schedule Radiation Oncology office visit (clinic) Outpatient Referral Routine Expected: 10/11/2023 (Approximate), Expires: 11/27/2024 documented as of this encounter Visit Diagnoses Not on filedocumented in this encounter Care Teams Hand Sewer Shoes Relationship Specialty Start Date End Date Elsewhere, Pcp PCP - General Family Medicine 02/01/22 documented as of this encounter
--- OUTSIDE RECORDS SUMMARY | 2023-10-20 00:42 | XMS_ITS | Encounter Summary ---
Author Organization [facility] Address [address] [place] [address] Care Team Providers Care Movie Critic Name Role Phone Elsewhere, Pcp Primary Care Provider Unavailabl e Reason for Referral * Outpatient (Routine) - Closed Specialty Diagnoses / Procedures Referred By Contac t Referred To Contact Radiation Oncology Tammie Hooks M.D., Ph.D. 200 [place] [phone] [facility] Referral ID Status Reason Start Date Expiration Date Visits Re quested Visits Authorized [id number] Closed 04/14/2023 10/13/2024 1 1 Scheduling Instructions Please schedule with Dr. Bruner's appts and CT, end of July to coincide when I am back. Reason for Visit * Outpatient (Routine) - Closed Specialty Diagnoses / Procedures Referred By Contac t Referred To Contact Radiation Oncology Tammie Hooks M.D., Ph.D. 200 [place] [phone] [facility] Referral ID Status Reason Start Date Expiration Date Visits Re quested Visits Authorized [id number] Closed 04/14/2023 10/13/2024 1 1 Encounter Details Date Type Department Care Team (Latest Contact Info) Description 08/03/2023 12:36 PM CDT - 08/03/2023 3:18 PM CDT Hospital Encounter Department of Radiation Oncology in [place], [place] [address] [place] [address] Tammie Hooks M.D., Ph.D. [address] [place] [phone] Secondary Malignant Neoplasm Bone (HCC) (Primary Dx); [...] and heating? Not hard at all 09/02/2022 [facility] [place] of Occupat ional Health - Occupational Stress [...] your living situation today? I have a [facility] place to live 02/16/2023 Education Answer Date Recorded What is the highest level of school you have completed or the highest degree you have received? Bachelor's degree (e.g., BA, AB, BS) 01/24/2022 Sex and Gender Information Value Date Recorded Sex Assigned at Female 01/24/2022 7:37 PM DELIVERY SALES WORKER Gender Identity Female 01/24/2022 7:37 PM DELIVERY SALES WORKER Sexual Orientation Straight 01/24/2022 7: 37 PM DELIVERY SALES WORKER documented as of this encounter Last Filed Vital Signs Vital Sign Reading Time Taken Comments Blood Pressure - - Pulse - - Temperature - - Respiratory Rate - - Oxygen Saturation - - Inhaled Oxygen Concentration - - Weight 59.1 kg (130 lb 4.7 oz) 08/03/2023 12:50 PM CDT Height - - Body Mass Index 22.91 07/14/2023 2:25 PM CDT documented in this encounter Medications [...] minutes, and rinse 120 mL 11 03/24/2023 methylcellulose, laxative, (CITRUCEL) 500 mg tablet Take by mouth daily. Heaping tablespoon in water once daily rosuvastatin (CRESTOR) 10 mg tablet Take 10 mg by mouth at bedtime. ubiquinone (COENZYME Q10) 100 mg tablet Take 100 mg by mouth daily. 12/22/2021 UNABLE TO FIND Take 1 each by mouth daily. Med Name: Collagen powder, 1 scoop every morning with cereal levothyroxine (Synthroid) 50 mcg tablet Take 1 tablet (50 mcg total) by mouth daily. 90 tablet 1 03/02/2023 08/16/2023 neomycin-polymyxin B-dexameth (MAXITROL) 3.5 mg/g-10,000 unit/g-0.1 % ophthalmic ointment Apply to left eye as needed. 01/09/2023 08/08/2023 documented as of this encounter Progress Notes * Tammie Hooks M.D., Ph.D. - 08/03/2023 1:00 PM CDT SUBJECTIVE REQUESTING PROVIDER Tammie Hooks M.D., Ph.D. CHIEF COMPLAINT/REASON FOR VISIT There were no encounter diagnoses. INTERVAL HISTORY: Mrs. Veronica Guevara is a 78 y.o. female from [facility] who returns to radiationoncology clinic today for follow up. 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 This was biopsied but it was non-diagnostic and is a lytic lesion. She also has new erythematous lesion on vertex of scalp (last week, approximately). 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 Evaluated by boiler house mechanic Dr. Banuelos in [place] and was treated for possible psoriasis. The lesion persisted after 6 weeks. She was then treated with UV phototherapy between September and December of 2021. September 22, 2021---December 17, 2021: Underwent biopsy of the vertex scalp lesion which revealed squamous cell carcinoma. Incisional biopsy of left level 5 lymph node also revealed squamous cell carcinoma. 12/30/2021 Biopsy/Pathology A. Skin, scalp, vertex, excisional biopsy ([id number]; 12/30/2021): Invasive poorly differentiated squamous cell carcinoma, transected at base and lateral edge of the specimen. B. Neck, left, soft tissue, biopsy ([id number]; 01/13/2022): Invasive poorly differentiated squamous cell carcinoma [...] - Chemotherapy Cemiplimab-rwlc Start Date: 08/08/2023 (Planned) OBJECTIVE PHYSICAL EXAM General: Pleasant woman in no apparent distress Skin: Top of scalp has healed completely, although new area of erythema possibly telangiectasias. No noted skin crusting, open areas or discoloration. No clinical evidence of recurrent squamous cell carcinoma on the scalp. Lungs: Respirations are easy and nonlabored, no cough Neuro: CN II-XII intact. Mildly restricted range of movement in shoulders. Gait is steady DIAGNOSTICS CT head (07/14/23): personally reviewed, new lytic lesion in pareital/occipital skull MRI brain (07/27/23): personally reviewed, calvarial lesion is increasing in size and suspicious formetastatic lesion LABS 09/08/22: TSH: 12.2, T4 0.4 10/21/2022: TSH 3.6 01/11/2023: TSH 9.6 T4: 1.3 Thyroperoxidase Ab: <15.0 04/13/23: TSH 3.4 ASSESSMENT / PLAN #Squamous cell carcinoma of the scalp #Iatrogenic hypothyroidism #Thyroid nodule 78 y.o. 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 We discussed wecan treat this with SBRT, although it has some increased risk to skin as reirradiation. For now agree with plan to start cemipimab. -I'll plan to see her in 12 weeks with restaging scans. Future recommendations: We discussed that we do [...] of the patient today. Time includes both sky-lqez-qe-face cutqmff-it-lkdo patient care. Tammie Hooks MD PhD [employer] Communication Center Operator Radiation Oncology 08/02/23 1:37 PM CDT Pager: [phone] documented in this encounter Plan of Treatment Upcoming Encounters Date Type Department Care Team ([facility] st Contact Info) Description 10/30/2023 11:00 AM CDT Clinical Communication Virtual Review in [address] [phone] 11/01/2023 11:40 AM CDT Lab Department of Laboratory Medicine and Pathology, [facility] in [address] [phone] Remigio Frey M.D., Ph.D. [address] [place] [phone] 11/01/2023 1:40 PM CDT Office Visit Department of Oncology in [address] [phone] Blanche Monzon P.A.-C., M.S. [address] [place] [phone] 11/01/2023 2:45 PM CDT Infusion Department of Oncology in [address] [address] Remigio Frey M.D., Ph.D. [address] [place] [phone] 11/08/2023 9:45 AM CDT Clinical Communication Virtual Review in [address] [phone] 11/10/2023 8:00 AM CDT Office Visit Department of Dermatology in [place], [place] [address] [place] [phone] Emily Bell M.D. [address] [place] [phone] 11/17/2023 11:00 AM CDT Clinical Communication Virtual Review in [address] [phone] 11/21/2023 11:10 AM CDT Lab Department of Laboratory Medicine and Pathology, [facility] in [address] [address] Remigio Frey M.D., Ph.D. [address] [place] [phone] 11/21/2023 1:00 PM CDT Office Visit Department of Oncology in [address] [phone] Mc Mcknight M.D., Ph.D. [address] [place] [phone] 11/21/2023 2:15 PM CDT Infusion Department of Oncology in [address] [phone] Remigio Frey M.D., Ph.D. [address] [place] [phone] 12/11/2023 1:45 PM CDT Clinical Communication Virtual Review in [address] [phone] 12/12/2023 11:00 AM CDT Lab Department of Laboratory Medicine and Pathology, [facility] in [place], [place] [address] [place] [phone] Remigio Frey M.D., Ph.D. [address] [place] [phone] 12/12/2023 1:00 PM CDT Office Visit Department of Oncology in [address] [address] Mc Mcknight M.D., Ph.D. [address] [place] [phone] 12/12/2023 3:00 PM CDT Infusion Department of Oncology in [address] [phone] Remigio Frey M.D., Ph.D. [address] [place] [phone] 01/17/2024 9:00 AM DELIVERY SALES WORKER Clinical Communication Virtual Review in [address] [phone] 01/19/2024 2:30 PM DELIVERY SALES WORKER Comprehensive Visit Department of Neurology in [address] [phone] Kory Alas M.B., Ch.B. [address] [place] [phone] Scheduled Referrals Name Type Priority Associated Diagnoses Order Schedule Radiation Oncology office visit (clinic) Outpatient Referral Routine Once for 1 Occurrences starting 08/03/2023 until 08/03/2023 documented as of this encounter Visit Diagnoses Diagnosis Secondary Malignant Neoplasm Bone (HCC)- Primary Malignant Neoplasm Of Neck Squamous Cell Malignant Neoplasm Of Neck Squamous Cell- Primary Secondary Malignant Neoplasm Bone (HCC) Other Commercial Lines Account Assistant Current 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 documented in this encounter Care Teams Movie Critic Relationship Specialty Start Date End Date Elsewhere, Pcp PCP - General Family Medicine 02/01/22 documented as of this encounter
--- OUTSIDE RECORDS SUMMARY | 2023-10-20 00:42 | XMS_ITS | Encounter Summary ---
Author Organization [facility] Address [address] [place] [phone] Care Team Providers Care Health Economist Name Role Phone Elsewhere, Pcp Primary Care Provider Unavailabl e Reason for Visit * Episode Based Medications (Routine) - Authorized Specialty Diagnoses / Procedures Referred By Contac t Referred To Contact Diagnoses Other Docking Pilot Current 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 Blanche Monzon P.A.-C., M.S. [address] [place] [phone] [facility] [address] [place] [phone] Referral ID Status Reason Start Date Expiration Date V isits Requested Visits Authorized [id number] Authorized 07/28/2023 07/27/2025 99 99 Encounter Details Date Type Department Care Team (Late st Contact Info) Description 08/29/2023 2:30 PM CDT Infusion Department of Oncology in [place], [place] [address] [place] [phone] Blanche Monzon P.A.-C., M.S. [address] [place] [phone] Malignant Neoplasm Of Neck Squamous Cell (Primary Dx); Secondary Malignant Neoplasm Bone (HCC); Squamous Cell Carcinoma Of Skin Of Scalp And Neck; Other Docking Pilot Current 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 Social History Tobacco Use [...] How often do you attend chur or anglican services? Never 01/24/2022 Do you belong to [...] and heating? Not hard at all 09/02/2022 [facility] [place] of Occupat ional Health - Occupational Stress [...] Sex Assigned at Female 01/24/2022 7:37 PM NAIL MAKING MACHINE TENDER Gender Identity Female 01/24/2022 7:37 PM NAIL MAKING MACHINE TENDER Sexual Orientation Straight 01/24/2022 7: 37 PM NAIL MAKING MACHINE TENDER documented as of this encounter Plan of Treatment Upcoming Encounters Date Type Department Care Team (Late st Contact Info) Description 10/30/2023 11:00 AM CDT Clinical Communication Virtual Review in [address] [phone] 11/01/2023 11:40 AM CDT Lab Department of Laboratory Medicine and Pathology, [facility], in [place], [place] [address] [place] [phone] Remigio Frey M.D., Ph.D. [address] [place] [phone] 11/01/2023 1:40 PM CDT Office Visit Department of Oncology in [address] [address] Blanche Monzon P.A.-C., M.S. [address] [place] [phone] 11/01/2023 2:45 PM CDT Infusion Department of Oncology in [address] [address] Remigio Frey M.D., Ph.D. [address] [place] [phone] 11/08/2023 9:45 AM CDT Clinical Communication Virtual Review in [address] [phone] 11/10/2023 8:00 AM CDT Office Visit Department of Dermatology in [address] [phone] Emily Bell M.D. [address] [place] [phone] 11/17/2023 11:00 AM CDT Clinical Communication Virtual Review in [address] [phone] 11/21/2023 11:10 AM CDT Lab Department of Laboratory Medicine and Pathology, [facility], in [place], [place] [address] [place] [phone] Remigio Frey M.D., Ph.D. [address] [place] [phone] 11/21/2023 1:00 PM CDT Office Visit Department of Oncology in [place], [place] [address] [place] [phone] Mc Mcknight M.D., Ph.D. [address] [place] [phone] 11/21/2023 2:15 PM CDT Infusion Department of Oncology in [place], [place] [address] [place] [phone] Remigio Frey M.D., Ph.D. [address] [place] [phone] 12/11/2023 1:45 PM CDT Clinical Communication Virtual Review in [place], [place] 200 [place] [address] 12/12/2023 11:00 AM CDT Lab Department of Laboratory Medicine and Pathology, [facility], in [place], [place] [address] [place] [phone] Remigio Frey M.D., Ph.D. [address] [place] [phone] 12/12/2023 1:00 PM CDT Office Visit Department of Oncology in [place], [place] [address] [place] [phone] Mc Mcknight M.D., Ph.D. [address] [place] [phone] 12/12/2023 3:00 PM CDT Infusion Department of Oncology in [place], [place] [address] [place] [phone] Remigio Frey M.D., Ph.D. [address] [place] [phone] 01/17/2024 9:00 AM NAIL MAKING MACHINE TENDER Clinical Communication Virtual Review in [place], [place] 200 [place] [phone] 01/19/2024 2:30 PM NAIL MAKING MACHINE TENDER Comprehensive Visit Department of Neurology in [place], [place] [address] [place] [phone] Kory Alas M.B., Ch.B. [address] [place] [phone] documented as of this encounter Visit Diagnoses Diagnosis Malignant Neoplasm Of Neck Squamous Cell- Primary 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 Other Alf Current 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 Malignant Neoplasm Of Neck Squamous Cell- Primary Secondary Malignant Neoplasm Bone (HCC) Other Docking Pilot Current 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 documented in this encounter Administered Medications Inactive Administered Medications - up to 3 most recent administrations Medication Order MAR Action Action Date Dose Rate Site cemiplimab-rwlc 350 mg in NaCl 0.9% 282 mL IVPB (Libtayo) 350 mg, intravenous, at 564 mL/hr, Administer over 30 Minutes, Once, On Mon08/29/23 at 1515, For 1 dose, Administer through in-line or add-on 0.2-micron to 5-micron filter. New Bag 08/29/2023 3:08 PM CDT 350 mg 564 mL/hr sodium chloride 0.9 % injection 3 mL 3 mL, intravenous, As needed, line care, Starting on Mon08/29/23 at 1442, Prior to and following infusion and between multiple consecutive infusions. Given 08/29/2023 2:45 PM CDT 3 mL documented in this encounter Care Teams Health Economist Relationship Specialty Start Date End Date Elsewhere, Pcp PCP - General Family Medicine 02/01/22 documented as of this encounter
--- OUTSIDE RECORDS SUMMARY | 2023-10-20 00:42 | XMS_ITS | Encounter Summary ---
Author Organization [facility] Address [address] [place] [address] Care Team Providers Care Engine Installer Name Role Phone Elsewhere, Pcp Primary Care Provider Unavailabl e Reason for Visit * Episode Based Medications (Routine) - Authorized Specialty Diagnoses / Procedures Referred By Contac t Referred To Contact Diagnoses Other Mold Mover Current 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 Blanche Monzon P.A.-C., M.S. [address] [place] [phone] Rst Onc Rogo [address] [place] [phone] Referral ID Status Reason Start Date Expiration Date V isits Requested Visits Authorized [id number] Authorized 07/28/2023 07/27/2025 99 99 Encounter Details Date Type Department Care Team (Late st Contact Info) Description 08/08/2023 3:30 PM CDT Infusion Department of Oncology in [place], [place] [address] [place] [phone] Blanche Monzon P.A.-C., M.S. [address] [place] [phone] Other Mold Mover Current 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 (Primary Dx); Secondary Malignant Neoplasm Bone (HCC); Squamous Cell Carcinoma Of Skin Of Scalp And Neck; Malignant Neoplasm Of Neck Squamous Cell Social [...] How often do you attend chur or taoist services? Never 01/24/2022 Do you [...] and heating? Not hard at all 09/02/2022 [facility] [place] [facility] - Occupational Stress [...] Sex Assigned at Female 01/24/2022 7:37 PM RAILWAY TRACK WORKER Gender Identity Female 01/24/2022 7:37 PM RAILWAY TRACK WORKER Sexual Orientation Straight 01/24/2022 7: 37 PM RAILWAY TRACK WORKER documented as of this encounter Plan of Treatment Upcoming Encounters Date Type Department Care Team (Late st Contact Info) Description 10/30/2023 11:00 AM CDT Clinical Communication Virtual Review in [address] [phone] 11/01/2023 11:40 AM CDT Lab Department of Laboratory Medicine and Pathology, [facility], in [place], [place] [address] [place] [phone] Remigio Frey M.D., Ph.D. [address] [place] [phone] 11/01/2023 1:40 PM CDT Office Visit Department of Oncology in [address] [phone] Blanche Monzon P.A.-C., M.S. [address] [place] [phone] 11/01/2023 2:45 PM CDT Infusion Department of Oncology in [address] [phone] Remigio Frey M.D., Ph.D. [address] [place] [phone] 11/08/2023 9:45 AM CDT Clinical Communication Virtual Review in [address] [phone] 11/10/2023 8:00 AM CDT Office Visit Department of Dermatology in [address] [phone] Emily Bell M.D. [address] [place] [phone] 11/17/2023 11:00 AM CDT Clinical Communication Virtual Review in [address] [phone] 11/21/2023 11:10 AM CDT Lab Department of Laboratory Medicine and Pathology, [facility], in [place], [place] [address] [place] [phone] Remigio Frey M.D., Ph.D. [address] [place] [phone] 11/21/2023 1:00 PM CDT Office Visit Department of Oncology in [place], [place] [address] [place] [phone] Mc Mcknight M.D., Ph.D. [address] [place] [phone] 11/21/2023 2:15 PM CDT Infusion Department of Oncology in [place], [place] [address] [place] [phone] Remigio Frey M.D., Ph.D. [address] [place] [phone] 12/11/2023 1:45 PM CDT Clinical Communication Virtual Review in [place], [place] 200 [place] [address] 12/12/2023 11:00 AM CDT Lab Department of Laboratory Medicine and Pathology, [facility], in [place], [place] [address] [place] [phone] Remigio Frey M.D., Ph.D. [address] [place] [phone] 12/12/2023 1:00 PM CDT Office Visit Department of Oncology in [place], [place] [address] [place] [phone] Mc Mcknight M.D., Ph.D. [address] [place] [phone] 12/12/2023 3:00 PM CDT Infusion Department of Oncology in [place], [place] [address] [place] [phone] Remigio Frey M.D., Ph.D. [address] [place] [phone] 01/17/2024 9:00 AM RAILWAY TRACK WORKER Clinical Communication Virtual Review in [place], [place] 200 [place] [phone] 01/19/2024 2:30 PM RAILWAY TRACK WORKER Comprehensive Visit Department of Neurology in [place], [place] [address] [place] [phone] Koyr Alas M.B., Ch.B. [address] [place] [phone] documented as of this encounter Visit Diagnoses Diagnosis Other Mold Mover Current 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- Primary 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 Malignant Neoplasm Of Neck Squamous Cell Malignant Neoplasm Of Neck Squamous Cell- Primary Secondary Malignant Neoplasm Bone (HCC) Other Mold Mover Current 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 documented in this encounter Administered Medications Inactive Administered Medications - up to 3 most recent administrations Medication Order MAR Action Action Date Dose Rate Site cemiplimab-rwlc 350 mg in NaCl 0.9% 282 mL IVPB (LIBTAYO) 350 mg, intravenous, at 564 mL/hr, Administer over 30 Minutes, Once, On Mon08/08/23 at 1530, For 1 dose, Administer through in-line or add-on 0.2-micron to 5-micron filter. New Bag 08/08/2023 3:30 PM CDT 350 mg 564 mL/hr documented in this encounter Care Teams Engine Installer Relationship Specialty Start Date End Date Elsewhere, Pcp PCP - General Family Medicine 02/01/22 documented as of this encounter
--- OUTSIDE RECORDS SUMMARY | 2023-10-20 00:42 | XMS_ITS | Encounter Summary ---
Author Organization [facility] Address [address] [place] [address] Care Team Providers Care Lead Material Handler Name Role Phone Elsewhere, Pcp Primary Care Provider Unavailabl e Reason for Visit * Reason Comments Med Refill Encounter Details Date Type Department Care Team (Late st Contact Info) Description 08/16/2023 Refill Department of Radiation Oncology in [place], [place] [address] [place] [phone] Tammie Hooks M.D., Ph.D. [address] [place] [phone] Med Refill Social History Tobacco Use Types Packs/Day Years [...] often do you attend chur ch or congregational services? Never 01/24/2022 Do you belong to [...] and heating? Not hard at all 09/02/2022 [facility] - Occupational Stress Questionnaire Answer [...] your living situation today? I have a [facility] place to live 02/16/2023 Education Answer Date Recorded What is the highest level of school you have completed or the highest degree you have received? Bachelor's degree (e.g., BA, AB, BS) 01/24/2022 Sex and Gender Information Value Date Recorded Sex Assigned at Female 01/24/2022 7:37 PM ADULT MANAGER Gender Identity Female 01/24/2022 7:37 PM ADULT MANAGER Sexual Orientation Straight 01/24/2022 7: 37 PM ADULT MANAGER documented as of this encounter Miscellaneous Notes * Telephone Encounter - Tammie Hooks M.D., Ph.D. - 08/16/2023 10:47 AM CDT From: Veronica Guevara To: Office of Karina Garcia APRN, C.NPiero, M.S.N. Sent: 08/15/2023 4:48 PM CDT Subject: Medication Renewal Request Refills have been requested for the following medications: levothyroxine (Synthroid) 50 mcg tablet [Karina Garcia APRN, C.N.Shiloh, M.S.N.] Preferred pharmacy: [address] Delivery method: Pickup documented in this encounter Plan of Treatment Upcoming Encounters Date Type Department Care Team (Late st Contact Info) Description 10/30/2023 11:00 AM CDT Clinical Communication Virtual Review in [place], [place] 200 [place] [address] 11/01/2023 11:40 AM CDT Lab Department of Laboratory Medicine and Pathology, [facility], in [place], [place] [address] [place] [phone] Remigio Frey M.D., Ph.D. [address] [place] [phone] 11/01/2023 1:40 PM CDT Office Visit Department of Oncology in [address] [phone] Blanche Monzon P.A.-C., M.S. [address] [place] [phone] 11/01/2023 2:45 PM CDT Infusion Department of Oncology in [place], [place] [address] [place] [phone] Remigio Frey M.D., Ph.D. [address] [place] [phone] 11/08/2023 9:45 AM CDT Clinical Communication Virtual Review in [address] [phone] 11/10/2023 8:00 AM CDT Office Visit Department of Dermatology in [address] [phone] Emily Bell M.D. [address] [place] [phone] 11/17/2023 11:00 AM CDT Clinical Communication Virtual Review in [address] [phone] 11/21/2023 11:10 AM CDT Lab Department of Laboratory Medicine and Pathology, [facility], in [place], [place] [address] [place] [phone] Remigio Frey M.D., Ph.D. [address] [place] [phone] 11/21/2023 1:00 PM CDT Office Visit Department of Oncology in [place], [place] [address] [place] [phone] Mc Mcknight M.D., Ph.D. [address] [place] [phone] 11/21/2023 2:15 PM CDT Infusion Department of Oncology in [place], [place] [address] [place] [phone] Remigio Frey M.D., Ph.D. [address] [place] [phone] 12/11/2023 1:45 PM CDT Clinical Communication Virtual Review in [place], [place] 200 [place] [address] 12/12/2023 11:00 AM CDT Lab Department of Laboratory Medicine and Pathology, [facility], in [place], [place] [address] [place] [phone] Remigio Frey M.D., Ph.D. [address] [place] [phone] 12/12/2023 1:00 PM CDT Office Visit Department of Oncology in [place], [place] [address] [place] [phone] Mc Mcknight M.D., Ph.D. [address] [place] [phone] 12/12/2023 3:00 PM CDT Infusion Department of Oncology in [place], [place] [address] [place] [phone] Remigio Frey M.D., Ph.D. [address] [place] [phone] 01/17/2024 9:00 AM ADULT MANAGER Clinical Communication Virtual Review in [place], [place] 200 [place] [phone] 01/19/2024 2:30 PM ADULT MANAGER Comprehensive Visit Department of Neurology in [address] [phone] Kory Alas M.B., Ch.B. [address] [place] [phone] documented as of this encounter Visit Diagnoses Not on filedocumented in this encounter Care Teams Lead Material Handler Relationship Specialty Start Date End Date Elsewhere, Pcp PCP - General Family Medicine 02/01/22 documented as of this encounter
--- OUTSIDE RECORDS SUMMARY | 2023-10-20 00:42 | XMS_ITS | Encounter Summary ---
Author Organization [facility] Address [address] [place] [address] Care Team Providers Care Enterprise Resource Analyst Name Role Phone Elsewhere, Pcp Primary Care Provider Unavailabl e Reason for Visit * Episode Based Medications (Routine) - Authorized Specialty Diagnoses / Procedures Referred By Contac t Referred To Contact Diagnoses Other Termite Exterminator Helper Current 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 Blanche Monzon P.A.-C., M.S. [address] [place] [phone] Rst Onc Rogo [address] [place] [phone] Referral ID Status Reason Start Date Expiration Date V isits Requested Visits Authorized [id number] Authorized 07/28/2023 07/27/2025 99 99 Encounter Details Date Type Department Care Team (Late st Contact Info) Description 08/29/2023 1:40 PM CDT Office Visit Department of Oncology in [place], [place] [address] [place] [phone] Farnaz Mccarty APRN, C.N.P. [address] [place] [phone] Secondary Malignant Neoplasm Bone (HCC); Squamous Cell Carcinoma Of Skin Of Scalp And Neck; Other Termite Exterminator Helper Current 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 Social History Tobacco Use [...] How often do you attend chur or zoroastrian services? Never 01/24/2022 Do you [...] and heating? Not hard at all 09/02/2022 [facility] - Occupational Stress Questionnaire Answer Date Recorded [...] living situation today? I have a [facility] place to live 02/16/2023 Education Answer Date Recorded What is the highest level of school you have completed or the highest degree you have received? Bachelor's degree (e.g., BA, AB, BS) 01/24/2022 Sex and Gender Information Value Date Recorded Sex Assigned at Female 01/24/2022 7:37 PM THERMODYNAMICS ENGINEER Gender Identity Female 01/24/2022 7:37 PM THERMODYNAMICS ENGINEER Sexual Orientation Straight 01/24/2022 7: 37 PM THERMODYNAMICS ENGINEER documented as of this encounter Last Filed Vital Signs Vital Sign Reading Time Taken Comments Blood Pressure 114/66 08/29/2023 1:15 PM CDT Pulse 61 08/29/2023 1:15 PM CDT Temperature 36.7 ??C (98.1 ??F) 08/29/2023 1:15 PM CD T Respiratory Rate 17 08/29/2023 1:15 PM CDT Oxygen Saturation 99% 08/29/2023 1:15 PM CDT Inhaled Oxygen Concentration - - Weight 58.9 kg (129 lb 13.6 oz) 08/29/2023 1:15 PM CDT Height 160 cm (5' 2.99) 08/29/2023 1:15 PM CDT Body Mass Index 23.01 08/29/2023 1:15 PM CDT documented in this encounter Progress Notes * Farnaz Mccarty, REYNOLD, C.N.P. 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 Mc Mcknight Primary collaborating provider is Dr. Mc Mcknight HISTORY OF PRESENT ILLNESS: Oncology History Squamous Cell Carcinoma Of Skin Of Scalp And Neck 07/2021 Initial Diagnosis July 2021: Noticed a lesion on the vertex of the scalp. Evaluated by engine watchman Dr. Banuelos in [place] and was treated for possible psoriasis. The lesion persisted after 6 weeks. She was then treated with UV phototherapy between September and December of 2021. September 22, 2021---December 17, 2021: Underwent biopsy of the vertex scalp lesion which revealed squamous cell carcinoma. Incisional biopsy of left level 5 lymph node also revealed squamous cell carcinoma. 12/30/2021 Biopsy/Pathology A. Skin, scalp, vertex, excisional biopsy ([id number]; 12/30/2021): Invasive poorly differentiated squamous cell carcinoma, transected at base and lateral edge of the specimen. B. Neck, left, soft tissue, biopsy ([id number]; 01/13/2022): Invasive poorly differentiated squamous cell carcinoma [...] 08/08/2023 - Chemotherapy Cemiplimab-rwlc Start Date: 08/08/2023 Interval history by RN: Mrs. Guevara reports she is doing quite well after her 1st cycle of cemiplimab. She denies any increased pain, fatigue, nausea, cough, fevers or night sweats, or lightheadedness/dizziness. 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 She does state that she has increased blurriness of her vision but doesnot affect her daily living. She also notes that she has trace edema and patchy discoloration in her left lower extremity. She also notes she experiences tingling her fingers although she previously had carpal tunnel. Interval history: Ms. Guevara returns for follow-up. Overall she is doing well. I agree with the interval history asnoted above by Ms. Ekta Dasilva RN ECOG performance status is 0. Past Medical/Surgical [...] and Family History. OBJECTIVE VITAL SIGNS: Vitals: 08/29/23 1315 BP: 114/66 BP Location: Left arm Patient Position: Sitting Cuff Size: Regular Pulse: 61 Resp: 17 Temp: 36.7 ??C TempSrc: Tympanic SpO2: 99% Weight: 58.9 kg Height: 160 cm Rate your distress: 3 PHYSICAL EXAM: General: This is a well-appearing female who appears their stated age in no acute distress. Skin: Examined and significant only for previous surgical incisions. Lymph: No palpable lymphadenopathy. Heart: Examined and normal. Lungs: Examined and normal. ASSESSMENT / PLAN #1 Locally advanced squamous cell carcinoma Mrs. Guevara is here today prior to her next cycle of cemiplimab therapy. She has no side effects contraindicating treatment today. PATIENT EDUCATION Ready to learn, no apparent learning barriers were identified; learning preferences include listening. Explained diagnosis and treatment plan; patient expressed understanding of the content. ADMINISTRATIVE BILLING I personally spent over half of a total 20 minutes face to face with the patient in counseling and discussion and/or coordination of care as described above. 25 Modifier is used as additional care was provided outside of chemotherapy clearance. documented in this encounter Plan of Treatment Upcoming Encounters Date Type Department Care Team (Late st Contact Info) Description 10/30/2023 11:00 AM CDT Clinical Communication Virtual Review in [address] [phone] 11/01/2023 11:40 AM CDT Lab Department of Laboratory Medicine and Pathology, [facility], in [address] [phone] Remigio Frey M.D., Ph.D. [address] [place] [phone] 11/01/2023 1:40 PM CDT Office Visit Department of Oncology in [address] [phone] Blanche Monzon P.A.-C., M.S. [address] [place] [phone] 11/01/2023 2:45 PM CDT Infusion Department of Oncology in [address] [phone] Remigio Frey M.D., Ph.D. [address] [place] [phone] 11/08/2023 9:45 AM CDT Clinical Communication Virtual Review in [address] [phone] 11/10/2023 8:00 AM CDT Office Visit Department of Dermatology in [place], [place] [address] [place] [phone] Emily Bell M.D. [address] [place] [phone] 11/17/2023 11:00 AM CDT Clinical Communication Virtual Review in [place], [place] 200 [place] [phone] 11/21/2023 11:10 AM CDT Lab Department of Laboratory Medicine and Pathology, [facility] in [place], [place] [address] [place] [phone] Remigio Frey M.D., Ph.D. [address] [place] [phone] 11/21/2023 1:00 PM CDT Office Visit Department of Oncology in [address] [phone] Mc Mcknight M.D., Ph.D. [address] [place] [phone] 11/21/2023 2:15 PM CDT Infusion Department of Oncology in [address] [phone] Remigio Frey M.D., Ph.D. [address] [place] [phone] 12/11/2023 1:45 PM CDT Clinical Communication Virtual Review in [address] [phone] 12/12/2023 11:00 AM CDT Lab Department of Laboratory Medicine and Pathology, [facility] in [place], [place] [address] [place] [phone] Remigio Frey M.D., Ph.D. [address] [place] [phone] 12/12/2023 1:00 PM CDT Office Visit Department of Oncology in [address] [phone] Mc Mcknight M.D., Ph.D. [address] [place] [phone] 12/12/2023 3:00 PM CDT Infusion Department of Oncology in [place], [place] [address] [place] [phone] Remigio Frey M.D., Ph.D. [address] [place] [phone] 01/17/2024 9:00 AM THERMODYNAMICS ENGINEER Clinical Communication Virtual Review in [place], [place] 200 [place] [phone] 01/19/2024 2:30 PM THERMODYNAMICS ENGINEER Comprehensive Visit Department of Neurology in [address] [phone] Kory Alas M.B., Ch.B. [address] [place] [phone] documented as of this encounter Visit Diagnoses Diagnosis 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 Other Termite Exterminator Helper Current 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 Malignant Neoplasm Of Neck Squamous Cell- Primary Secondary Malignant Neoplasm Bone (HCC) Other Termite Exterminator Helper Current 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 documented in this encounter Care Teams Enterprise Resource Analyst Relationship Specialty Start Date End Date Elsewhere, Pcp PCP - General Family Medicine 02/01/22 documented as of this encounter
--- OUTSIDE RECORDS SUMMARY | 2023-10-20 00:42 | XMS_ITS | Encounter Summary ---
Author Organization [facility] Address [address] [place] [id number] Care Team Providers Care Maxillofacial Surgeon Name Role Phone Elsewhere, Pcp Primary Care Provider Unavailabl e Encounter Details Date Type Department Care Team (Latest Contact Info) Description 08/28/2023 10:00 AM CDT Clinical Communication Virtual Review in [place], [place] [address] [place] [address] Social History Tobacco Use Types Packs/Day Years [...] often do you attend chur ch or nondenominational services? Never 01/24/2022 Do you belong to [...] and heating? Not hard at all 09/02/2022 [facility] - [...] your living situation today? I have a [facility] place to live 02/16/2023 Education Answer Date Recorded What is the highest level of school you have completed or the highest degree you have received? Bachelor's degree (e.g., BA, AB, BS) 01/24/2022 Sex and Gender Information Value Date Recorded Sex Assigned at Female 01/24/2022 7:37 PM INDUSTRIAL MILLWRIGHT Gender Identity Female 01/24/2022 7:37 PM INDUSTRIAL MILLWRIGHT Sexual Orientation Straight 01/24/2022 7: 37 PM INDUSTRIAL MILLWRIGHT documented as of this encounter Plan of Treatment Upcoming Encounters Date Type Department Care Team (Late st Contact Info) Description 10/30/2023 11:00 AM CDT Clinical Communication Virtual Review in [place], [place] 200 [place] [address] 11/01/2023 11:40 AM CDT Lab Department of Laboratory Medicine and Pathology, [facility], in [address] [phone] Remigio Frey M.D., Ph.D. [address] [place] [phone] 11/01/2023 1:40 PM CDT Office Visit Department of Oncology in [place], [place] [address] [place] [phone] Blanche Monzon P.A.-C., M.S. [address] [place] [phone] 11/01/2023 2:45 PM CDT Infusion Department of Oncology in [place], [place] [address] [place] [phone] Remigio Frey M.D., Ph.D. [address] [place] [phone] 11/08/2023 9:45 AM CDT Clinical Communication Virtual Review in [address] [phone] 11/10/2023 8:00 AM CDT Office Visit Department of Dermatology in [address] [phone] Emily Bell M.D. [address] [place] [phone] 11/17/2023 11:00 AM CDT Clinical Communication Virtual Review in [address] [phone] 11/21/2023 11:10 AM CDT Lab Department of Laboratory Medicine and Pathology, [facility], in [address] [phone] Remigio Frey M.D., Ph.D. [address] [place] [phone] 11/21/2023 1:00 PM CDT Office Visit Department of Oncology in [address] [phone] Mc Mcknight M.D., Ph.D. [address] [place] [phone] 11/21/2023 2:15 PM CDT Infusion Department of Oncology in [address] [address] Remigio Frey M.D., Ph.D. [address] [place] [phone] 12/11/2023 1:45 PM CDT Clinical Communication Virtual Review in [place], [place] [address] [place] [address] 12/12/2023 11:00 AM CDT Lab Department of Laboratory Medicine and Pathology, [facility], in [place], [place] [address] [place] [phone] Remigio Frey M.D., Ph.D. [address] [place] [phone] 12/12/2023 1:00 PM CDT Office Visit Department of Oncology in [address] [phone] Mc Mcknight M.D., Ph.D. [address] [place] [phone] 12/12/2023 3:00 PM CDT Infusion Department of Oncology in [place], [place] [address] [place] [phone] Remigio Frey M.D., Ph.D. [address] [place] [phone] 01/17/2024 9:00 AM INDUSTRIAL MILLWRIGHT Clinical Communication Virtual Review in [address] [phone] 01/19/2024 2:30 PM INDUSTRIAL MILLWRIGHT Comprehensive Visit Department of Neurology in [address] [phone] Kory Alas M.B., Ch.B. [address] [place] [phone] documented as of this encounter Visit Diagnoses Not on filedocumented in this encounter Care Teams Maxillofacial Surgeon Relationship Specialty Start Date End Date Elsewhere, Pcp PCP - General Family Medicine 11/29/22 documented as of this encounter
--- OUTSIDE RECORDS SUMMARY | 2023-10-20 00:42 | XMS_ITS | Encounter Summary ---
Author Organization [facility] Address [address] [place] [address] Care Team Providers Care Cad Designer Name Role Phone Elsewhere, Pcp Primary Care Provider Unavailabl e Reason for Visit * Episode Based Medications (Routine) - Authorized Specialty Diagnoses / Procedures Referred By Contac t Referred To Contact Diagnoses Other Needle Loom Operator Current 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 Blanche Monzon P.A.-C., M.S. [address] [place] [phone] [facility] [address] [place] [phone] Referral ID Status Reason Start Date Expiration Date V isits Requested Visits Authorized [id number] Authorized 07/28/2023 07/27/2025 99 99 Encounter Details Date Type Department Care Team (Late st Contact Info) Description 08/08/2023 2:40 PM CDT Education Department of Oncology in [place], [place] [address] [place] [phone] Blanche Monzon P.A.-C., M.S. [address] [place] [phone] Janette Arango R.NNey 200 [place] [phone] Secondary Malignant Neoplasm Bone (HCC); Squamous Cell Carcinoma Of Skin Of Scalp And Neck; Other Shelter Current 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 Social History Tobacco Use [...] 01/24/2022 How often do you attend [facility] or yarsanism services? Never 01/24/2022 Do you [...] and heating? Not hard at all 09/02/2022 [facility] - Occupational Stress [...] Sex Assigned at Female 01/24/2022 7:37 PM BAND BOOKER Gender Identity Female 01/24/2022 7:37 PM BAND BOOKER Sexual Orientation Straight 01/24/2022 7: 37 PM BAND BOOKER documented as of this encounter Progress Notes * Janette Arango R.N. - 08/08/2023 2:40 PM CDT Cancer Treatment Education Visit REASON FOR VISIT Met with Veronica Guevara and her Bradley for cancer treatment education. She will be receiving Cemiplimab. ASSESSMENT/PLAN Patient education provided per the cancer treatment letter attached in encounters. Printed materials provided to patient per Education Tab. Answered questions. Patient verbalized understanding and voiced appreciation for education. documented in this encounter Plan of Treatment Upcoming Encounters Date Type Department Care Team (Late st Contact Info) Description 10/30/2023 11:00 AM CDT Clinical Communication Virtual Review in [address] [phone] 11/01/2023 11:40 AM CDT Lab Department of Laboratory Medicine and Pathology, [facility] in [address] [phone] Remigio Frey M.D., Ph.D. [address] [place] [phone] 11/01/2023 1:40 PM CDT Office Visit Department of Oncology in [address] [phone] Blanche Monzon P.A.-C., M.S. [address] [place] [phone] 11/01/2023 2:45 PM CDT Infusion Department of Oncology in [address] [phone] Remigio Frey M.D., Ph.D. [address] [place] [phone] 11/08/2023 9:45 AM CDT Clinical Communication Virtual Review in [place], [place] 200 [place] [address] 11/10/2023 8:00 AM CDT Office Visit Department of Dermatology in [place], [place] [address] [place] [phone] Emily Bell M.D. [address] [place] [phone] 11/17/2023 11:00 AM CDT Clinical Communication Virtual Review in [place], [place] 200 [place] [address] 11/21/2023 11:10 AM CDT Lab Department of Laboratory Medicine and Pathology, [facility] in [place], [place] [address] [place] [phone] Remigio Frey M.D., Ph.D. [address] [place] [phone] 11/21/2023 1:00 PM CDT Office Visit Department of Oncology in [place], [place] [address] [place] [phone] Mc Mcknight M.D., Ph.D. [address] [place] [phone] 11/21/2023 2:15 PM CDT Infusion Department of Oncology in [place], [place] [address] [place] [phone] Remigio Frey M.D., Ph.D. [address] [place] [phone] 12/11/2023 1:45 PM CDT Clinical Communication Virtual Review in [place], [place] 200 [place] [address] 12/12/2023 11:00 AM CDT Lab Department of Laboratory Medicine [facility], [facility], in [place], [place] [address] [place] [phone] Remigio Frey M.D., Ph.D. [address] [place] [phone] 12/12/2023 1:00 PM CDT Office Visit Department of Oncology in [place], [place] [address] [place] [phone] Mc Mcknight M.D., Ph.D. [address] [place] [phone] 12/12/2023 3:00 PM CDT Infusion Department of Oncology in [place], [place] [address] [place] [phone] Remigio Frey M.D., Ph.D. [address] [place] [phone] 01/17/2024 9:00 AM BAND BOOKER Clinical Communication Virtual Review in [place], [place] 200 [place] [phone] 01/19/2024 2:30 PM BAND BOOKER Comprehensive Visit Department of Neurology in [address] [phone] Kory Alas M.B., Ch.B. [address] [place] [phone] documented as of this encounter Visit Diagnoses Diagnosis 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 Other Needle Loom Operator Current 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 Malignant Neoplasm Of Neck Squamous Cell- Primary Secondary Malignant Neoplasm Bone (HCC) Other Shelter Current 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 documented in this encounter Care Teams Cad Designer Relationship Specialty Start Date End Date Elsewhere, Pcp PCP - General Family Medicine 02/01/22 documented as of this encounter
--- OUTSIDE RECORDS SUMMARY | 2023-10-20 00:43 | XMS_ITS | Encounter Summary ---
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 [address] [place] [phone] [facility] Referral ID Status Reason Start Date Expiration Date Visits Re quested Visits Authorized [id number] Closed 07/28/2023 07/27/2024 1 1 * MRI/CAT/PET Scan (Routine) - Closed Specialty Diagnoses / Procedures Referred By Ryan cronin Referred To Contact Radiology Diagnoses Squamous Cell Carcinoma Of Skin Of Scalp And Neck Lesion Lytic Bone Secondary Malignant Neoplasm Bone (HCC) Other Marketing Professional Current 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 Procedures CT Abdomen Pelvis with IV Contrast Blanche Monzon P.A.-C., M.S. [address] [place] [phone] [facility] Referral ID Status Reason Start Date Expiration Date Visits Re quested Visits Authorized [id number] Closed 07/28/2023 07/27/2024 1 1 * MRI/CAT/PET Scan (Routine) - Closed Specialty Diagnoses / Procedures Referred By Contac t Referred To Contact Radiology Diagnoses Squamous Cell Carcinoma Of Skin Of Scalp And Neck Lesion Lytic Bone Secondary Malignant Neoplasm Bone (HCC) Other Marketing Professional Current 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 Procedures CT Chest with IV Contrast Blanche Monzon P.A.-C., M.S. [address] [place] [phone] [facility] Referral ID Status Reason Start Date Expiration Date Visits Re quested Visits Authorized [id number] Closed 07/28/2023 07/27/2024 1 1 * MRI/CAT/PET Scan (Routine) - Closed Specialty Diagnoses / Procedures Referred By Contac t Referred To Contact Radiology Diagnoses Squamous Cell Carcinoma Of Skin Of Scalp And Neck Lesion Lytic Bone Secondary Malignant Neoplasm Bone (HCC) Other Marketing Professional Current 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 Procedures CT Neck Soft Tissue with IV Contrast Blanche Monzon P.A.-C., M.S. [address] [place] [phone] [facility] Referral ID Status Reason Start Date Expiration Date Visits Re quested Visits Authorized [id number] Closed 07/28/2023 07/27/2024 1 1 * Outpatient (Routine) Specialty Diagnoses / Procedures Referred By Contac t Referred To Contact Oncology Blanche Monzon P.A.-C., M.S. [address] [place] [phone] Mc Mcknight M.D., Ph.D. [address] [place] [phone] Referral ID Status Reason Start Date Expiration Date Visits Re quested Visits Authorized * Outpatient (Routine) Specialty Diagnoses / Procedures Referred By Contac t Referred To Contact Oncology Blanche Monzon P.A.-C., M.S. [address] [place] [phone] [facility] Referral ID Status Reason Start Date Expiration Date Visits Re quested Visits Authorized Scheduling Instructions Juan Luis Monzon * Outpatient (Routine) Specialty Diagnoses / Procedures Referred By Contac t Referred To Contact Oncology Blanche Monzon P.A.-C., M.S. [address] [place] [phone] [facility] Referral ID Status Reason Start Date Expiration Date Visits Re quested Visits Authorized Scheduling Instructions Juan Luis Monzon * Outpatient (Routine) Specialty Diagnoses / Procedures Referred By Contac t Referred To Contact Oncology Blanche Monzon P.A.-C., M.S. [address] [place] [phone] Blanche Monzon P.A.-C., M.S. [address] [place] [phone] Referral ID Status Reason Start Date Expiration Date Visits Re quested Visits Authorized * Specialty Diagnoses / Procedures Referred By Ryan cronin Referred To Contact Blanche Monzon P.A.-C., M.S. [address] [place] [phone] [facility] Referral ID Status Reason Start Date Expiration Date Visits Re quested Visits Authorized Reason for Visit * Outpatient (Routine) - Closed Specialty Diagnoses / Procedures Referred By Ryan cronin Referred To Contact Oncology Woody Navarro M.D. [address] [place] [phone] [facility] Referral ID Status Reason Start Date Expiration Date Visits Re quested Visits Authorized [id number] Closed 07/14/2023 01/12/2025 1 1 Encounter Details Date Type Department Care Team (Late st Contact Info) Description 07/28/2023 9:20 AM CDT Telemedicine Department of Oncology in [place], [place] [address] [place] [phone] Blanche Monzon P.A.-C., M.S. 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 - 07/28/2023 9:20 AM CDT SUBJECTIVE REQUESTING PROVIDER Woody Navarro M.D. [address] [place] [phone] PRIMARY COLLABORATING PROVIDER Mc Mcknight M.D., Ph.D. Blanche Monzon P.A.-C., M.S. COLLABORATING PROVIDER TODAY Woody Navarro M.D. CHIEF CONCERN Veronica Guevara is a 78 y.o. female with regionally advanced squamous cell carcinoma who is status post radiation therapy. Presents today via video to discuss results of brain MRI. HISTORY OF PRESENT ILLNESS Oncology History Oncology History Squamous Cell Carcinoma Of Skin Of Scalp And Neck 07/2021 Initial Diagnosis July 2021: Noticed a lesion on the vertex of the scalp. Evaluated by recycler Dr. Banuelos in [place] and was treated for possible psoriasis. The lesion persisted after 6 weeks. She was then treated with UV phototherapy between September and December of 2021. September 22, 2021---December 17, 2021: Underwent biopsy of the vertex scalp lesion which revealed squamous cell carcinoma. Incisional biopsy of left level 5 lymph node also revealed squamous cell carcinoma. 12/30/2021 Biopsy/Pathology A. Skin, scalp, vertex, excisional biopsy ([id number]; 12/30/2021): Invasive poorly differentiated squamous cell carcinoma, transected at base and lateral edge of the specimen. B. Neck, left, soft tissue, biopsy ([id number]; 01/13/2022): Invasive poorly differentiated squamous cell carcinoma [...] HISTORY Veronica Guevara presents to clinic today via video unaccompanied. She was last seen in clinic on 07/14/23. At that time, head CT revealed an enlarging skull-based lytic lesion. A biopsy was completed andunfortunately no intact tissue was identified, therefore, a diagnosis could not be provided. REVIEW OF SYSTEMS A 14-point review of [...] daily. Heaping tablespoon in water once daily neomycin-polymyxin B-dexameth (MAXITROL) 3.5 mg/g-10,000 unit/g-0.1 % ophthalmic ointment Apply to left eye as needed. rosuvastatin (CRESTOR) 10 mg tablet Take 10 mg by mouth at bedtime. ubiquinone (COENZYME Q10) 100 mg tablet Take 100 mg by mouth daily. UNABLE TO FIND Take 1 each by mouth daily. Med Name: Collagen powder, 1 scoop every morning with cereal SOCIAL HISTORY Veronica Guevara lives in [place], [place], with her spouse, Andre. PHYSICAL EXAMINATION ECOG performance score: 0 - asymptomatic Deferred as visit conducted via video. DIAGNOSTICS LABORATORY DATA No results found for this or any previous visit (from the past 24 hour(s)). RADIOLOGICAL DATA Brain MRI obtained yesterday revealed indeterminate right parieto-occipital calvarial lesion has mildly increased in size and is suspicious for a metastatic lesion. Moderate interval improvement in the previously noted left parietal scalp enhancing subcutaneous nodule near the vertex. The area of decreased T1 marrow signal involving the underlying left greater than right paramedian parietal bone is overall slightly less conspicuous on the current study. 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 female with regionally advanced squamous cell carcinoma who is status post radiation therapy. Presents today to discuss results of brain MRI. Veronica was last seen in clinic on 07/14/23. At that time, head CT revealed an enlarging skull-based lytic lesion. A biopsy was completed and unfortunately no intact tissue was identified, therefore, a diagnosis could not be provided. Given this, a decision to proceed with brain MRI was made. Brain MRI obtained yesterday revealed mildincrease in size of the right parieto- occipital calvarial lesion. This case was discussed among , Dr. Navarro, and myself with plan to proceed with cemiplimab q3 weeks given ongoing growth of calvarial lesion. At today's visit, we discussed that infusions will occur every 3 weeks with repeat imaging to occur following 4 infusions. We discussed possible side effects including: inflammation of any organ system and endocrinopathies such as hypothyroidism and type 1 diabetes. I shared that inflammation is reversible with use of oral or intravenous steroids while endocrinopathies are irreversible requiring lifelong treatments. I also shared that patients known psoriasis may flare.Veronica verbalized understanding of plan and wishes to proceed. We will plan to see her back in clinic prior to initiation for clinical evaluation and lab review. RN will also provide additional education at this time. PATIENT EDUCATION Ready to learn, no apparent learning barriers were identified; learning preferences include listening. Explained diagnosis and treatment plan; patient expressed understanding of the content. Discussed with the patient we work together as a care team of physicians, nurse practitioners/physician assistants, nurses and other bioinformatics support specialist that specialize in this cancer. Also, reviewed the importance of maintaining ongoing care with local oncology team and primary care physician. documented in this encounter Plan of Treatment Upcoming Encounters Date Type Department Care Team (Late st Contact Info) Description 10/30/2023 11:00 AM CDT Clinical Communication Virtual Review in [place], [place] 200 [place] [phone] 11/01/2023 11:40 AM CDT Lab Department of Laboratory Medicine and Pathology, [facility] in [place], [place] [address] [place] [phone] Remigio Frey M.D., Ph.D. [address] [place] [phone] 11/01/2023 1:40 PM CDT Office Visit Department of Oncology in [place], [place] [address] [place] [phone] Blanche Monzon P.A.-C., M.S. [address] [place] [phone] 11/01/2023 2:45 PM CDT Infusion Department of Oncology in [place], [place] [address] [place] [phone] Remigio Frey M.D., Ph.D. [address] [place] [phone] 11/08/2023 9:45 AM CDT Clinical Communication Virtual Review in [address] [phone] 11/10/2023 8:00 AM CDT Office Visit Department of Dermatology in [place], [place] [address] [place] [phone] Emily Bell M.D. [address] [place] [phone] 11/17/2023 11:00 AM CDT Clinical Communication Virtual Review in [address] [phone] 11/21/2023 11:10 AM CDT Lab Department of Laboratory Medicine [facility], [facility] in [place], [place] [address] [place] [phone] Remigio Frey M.D., Ph.D. [address] [place] [phone] 11/21/2023 1:00 PM CDT Office Visit Department of Oncology in [place], [place] [address] [place] [phone] Mc Mcknight M.D., Ph.D. [address] [place] [phone] 11/21/2023 2:15 PM CDT Infusion Department of Oncology in [place], [place] [address] [place] [phone] Remigio Frey M.D., Ph.D. [address] [place] [phone] 12/11/2023 1:45 PM CDT Clinical Communication Virtual Review in [place], [place] 200 [place] [phone] 12/12/2023 11:00 AM CDT Lab Department of Laboratory Medicine and Pathology, [facility], in [address] [phone] Remigio Frey M.D., Ph.D. [address] [place] [phone] 12/12/2023 1:00 PM CDT Office Visit Department of Oncology in [place], [place] [address] [place] [phone] Mc Mcknight M.D., Ph.D. [address] [place] [phone] 12/12/2023 3:00 PM CDT Infusion Department of Oncology in [place], [place] [address] [place] [phone] Remigio Frey M.D., Ph.D. [address] [place] [phone] 01/17/2024 9:00 AM GENERAL ASSEMBLER Clinical Communication Virtual Review in [place], [place] 200 [place] [phone] 01/19/2024 2:30 PM GENERAL ASSEMBLER Comprehensive Visit Department of Neurology in [place], [place] [address] [place] [phone] Kory Alas M.B., Ch.B. [address] [place] [phone] Scheduled Referrals Name Type Priority Associated Diagnoses Orde r Schedule Oncology - Chemo education visit (clinic) Outpatient Referral Routine 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 Other Marketing Professional Current 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 Expected: 08/07/2023, Expires: 08/06/2024 Oncology office visit (clinic) Outpatient Referral Routine 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 Other Marketing Professional Current 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 Expected: 08/08/2023, Expires: 11/07/2024 Oncology office visit (clinic) Outpatient Referral Routine 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 Other Fpc Current 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 Expected: 08/29/2023, Expires: 08/28/2024 Oncology office visit (clinic) Outpatient Referral Routine 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 Other Marketing Professional Current 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 Expected: 09/19/2023, Expires: 09/18/2024 Oncology office visit (clinic) Outpatient Referral Routine Other Fpc Current 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 Expected: 10/10/2023, Expires: 10/09/2024 documented as of this encounter Results * [...] with direct visualization. Blanche Monzon P.A.-C., M.S. [facility] MRI PROCEDURES * CT Abdomen Pelvis with [...] abdomen or pelvis. Blanche Monzon P.A.-C., M.S. G CT P ROCEDURES * CT Chest with [...] IMG CT P ROCEDURES * Thyroid Function [place] (10/11/2023 6:41 AM CDT) TSH, Sensitive 3.9 0.3 - 4.2 mIU/L 10/11/2023 7:51 AM CDT DTL Blood (Blood, Venous) 10/11/2023 6:41 AM CDT 10/11/2023 7:20 AM CDT Blanche Monzon P.A.-C., M.S. LAB BLOO D ADD-ON [facility] [address] [place], [place] [address] 200 [place] [address] * Bilirubin, Direct (10/11/2023 6:41 AM CDT) Bilirubin, Direct, S <0.2 0.0 - 0.3 mg/dL 10/11/2023 7:51 AM CDT DTL Blood (Blood, Venous) 10/11/2023 6:41 AM CDT 10/11/2023 7:20 AM CDT Blanche Monzon P.A.-C. M.S. LAB BLOO D ADD-ON [facility] 200 [place] [address], [facility] 200 [place] [address] * Comprehensive Metabolic Panel (10/11/2023 6:41 AM CDT) Pathologist [facility] Potassium, S 4.0 3.6 - 5.2 mmol/L [...] AM CDT Blanche Monzon P.A.-C. M.S. LAB BLOO D ADD-ON [address] [address], [facility] [place] [address] * (ABNORMAL) CBC with Differential, Blood (10/11/2023 6:41 AM CDT) Hemoglobin 13.0 11.6 - 15.0 g/dL 10/11/2023 [...] AM CDT Blanche Monzon P.A.-C. MMehul LAB YAMILETH Almanza ADD-ON [facility] [address] [place] [address], [facility] DTL [facility] [address] [place] [address] [facility] [address] [place] [address] * Thyroid Function [place] (09/19/2023 10:57 AM CDT) [facility] TSH, Sensitive 2.4 0.3 - 4.2 mIU/L 09/19/2023 12:02 PM CDT DTL Blood (Blood, Venous) 09/19/2023 10:57 AM CDT 09/19/2023 11:27 AM CDT Blanche Monzon P.A.-C., M.S. LAB BLOO D ADD-ON Performing Organization Address [facility] Co de Phone Number [facility] [address] [place] [address] * Bilirubin, Direct (09/19/2023 10:57 AM CDT) Bilirubin, Direct, S <0.2 0.0 - 0.3 mg/dL 09/19/2023 12:02 PM CDT DTL Blood (Blood, Venous) 09/19/2023 10:57 AM CDT 09/19/2023 11:27 AM CDT Blanche Monzon P.A.-C., M.S. LAB BLOO D ADD-ON Performing Organization Address [facility] [place] [address] * Comprehensive Metabolic Panel (09/19/2023 10:57 AM CDT) Potassium, S 3.7 3.6 - 5.2 mmol/L 09/19/2023 12:02 PM CDT DTL Sodium, S 140 135 - 145 mmol/L 09/19/2023 12:02 PM CDT DTL Chloride, S 104 98 - 107 mmol/L 09/19/2023 12:02 PM CDT DTL Bicarbonate, S 28 22 - 29 mmol/L 09/19/2023 12:02 PM CDT DTL Anion Gap 8 7 - 15 09/19/2023 12:02 PM CDT DTL BUN (Blood Urea Nitrogen), S 16 6 - 21 mg/dL 09/19/2023 12:02 PM CDT DTL Creatinine 0.74 0.59 - 1.04 mg/dL 09/19/2023 12:02 PM CDT DTL Estimated GFR (eGFR) 83 >=60 mL/min/BS A 09/19/2023 12:02 PM CDT DTL Comment: Estimated GFR calculated using the 2020 CKD_EPI creatinine equation. Calcium, Total, S 9.2 8.8 - 10.2 mg/dL 09/19/2023 12:02 PM CDT DTL Glucose, S 71 70 - 140 mg/dL 09/19/2023 12:02 PM CDT DTL Protein, Total, S 6.5 6.3 - 7.9 g/dL 09/19/2023 12:02 PM CDT DTL Albumin, S 4.2 3.5 - 5.0 g/dL 09/19/2023 12:02 PM CDT DTL Aspartate Aminotransferase (AST), S 41 8 - 43 U/L 09/19/2023 12:02 PM CDT DTL Alkaline Phosphatase, S 95 35 - 104 U/L 09/19/2023 12:02 PM CDT DTL Alanine Aminotransferase (ALT), S 26 7 - 45 U/L 09/19/2023 12:02 PM CDT DTL Bilirubin, Total, S 0.3 0.0 - 1.2 mg/dL 09/19/2023 12:02 PM CDT DTL Blood (Blood, Venous) 09/19/2023 10:57 AM CDT 09/19/2023 11:27 AM CDT Blanche Monzon P.A.-C., M.S. [place] [address], [facility] [place] [address] * (ABNORMAL) CBC with Differential, Blood (09/19/2023 10:57 AM CDT) Hemoglobin 12.5 11.6 - 15.0 g/dL 09/19/2023 11:33 AM CDT DTL Hematocrit 38.6 35.5 - 44.9 % 09/19/2023 11:33 AM CDT DTL Erythrocytes 4.34 3.92 - 5.13 x10(12)/L 09/19/2023 11:33 AM CDT DTL MCV 88.9 78.2 - 97.9 fL 09/19/2023 11:33 AM CDT DTL RBC Distrib Width 12.4 12.2 - 16.1 % 09/19/2023 11:33 AM CDT DTL Platelet Count 222 157 - 371 x10(9)/L 09/19/2023 11:33 AM CDT DTL Leukocytes 4.9 3.4 - 9.6 x10(9)/L 09/19/2023 11:33 AM CDT DTL Neutrophils 3.66 1.56 - 6.45 x10(9)/L 09/19/2023 11:33 AM CDT DHPM Lymphocytes 0.66(L) 0.95 - 3.07 x10(9)/L 09/19/2023 11:33 AM CDT DTL Monocytes 0.45 0.26 - 0.81 x10(9)/L 09/19/2023 11:33 AM CDT DTL Eosinophils 0.09 0.03 - 0.48 x10(9)/L 09/19/2023 11:33 AM CDT DTL Basophils <0.03 0.01 - 0.08 x10(9)/L 09/19/2023 11:33 AM CDT DTL Blood (Blood, Venous) 09/19/2023 10:57 AM CDT 09/19/2023 11:09 AM CDT Blanche Monzon P.A.-C. M.S. LAB BLOO D ADD-ON [facility] [address] [place] [address], [facility] DTL [facility] [address] [place] [address] DHPM [facility] [address] [place] [address] * Thyroid Function [place] (08/29/2023 11:30 AM CDT) [facility] TSH, Sensitive 0.3 0.3 - 4.2 mIU/L 08/29/2023 12:33 PM CDT DTL Blood (Blood, Venous) 08/29/2023 11:30 AM CDT 08/29/2023 12:01 PM CDT Blanche Monzon P.A.-C. M.S. LAB BLOO D ADD-ON Performing Organization Address City/[facility]/ZIP Co de Phone Number [facility] 200 [place] [address], [facility] 200 [place] [address] * Bilirubin, Direct (08/29/2023 11:30 AM CDT) Bilirubin, Direct, S <0.2 0.0 - 0.3 mg/dL 08/29/2023 12:33 PM CDT DTL Blood (Blood, Venous) 08/29/2023 11:30 AM CDT 08/29/2023 12:01 PM CDT Blanche Monzon P.A.-C., [place]ey[place]. LAB BLOO D ADD-ON Performing Organization Address [facility] Co de Phone Number [facility] 200 [place] [address], [facility] 200 [place] [address] * Comprehensive Metabolic Panel (08/29/2023 11:30 AM CDT) Potassium, S 4.4 3.6 - 5.2 mmol/L 08/29/2023 12:33 PM CDT DTL Sodium, S 143 135 - 145 mmol/L 08/29/2023 12:33 PM CDT DTL Chloride, S 106 98 - 107 mmol/L 08/29/2023 12:33 PM CDT DTL Bicarbonate, S 28 22 - 29 mmol/L 08/29/2023 12:33 PM CDT DTL Anion Gap 9 7 - 15 08/29/2023 12:33 PM CDT DTL BUN (Blood Urea Nitrogen), S 16 6 - 21 mg/dL 08/29/2023 12:33 PM CDT DTL Creatinine 0.77 0.59 - 1.04 mg/dL 08/29/2023 12:33 PM CDT DTL Estimated GFR (eGFR) 79 >=60 mL/min/BS A 08/29/2023 12:33 PM CDT DTL Comment: Estimated GFR calculated using the 2020 CKD_EPI creatinine equation. Calcium, Total, S 9.2 8.8 - 10.2 mg/dL 08/29/2023 12:33 PM CDT DTL Glucose, S 74 70 - 140 mg/dL 08/29/2023 12:33 PM CDT DTL Protein, Total, S 6.5 6.3 - 7.9 g/dL 08/29/2023 12:33 PM CDT DTL Albumin, S 4.2 3.5 - 5.0 g/dL 08/29/2023 12:33 PM CDT DTL Aspartate Aminotransferase (AST), S 33 8 - 43 U/L 08/29/2023 12:33 PM CDT DTL Alkaline Phosphatase, S 90 35 - 104 U/L 08/29/2023 12:33 PM CDT DTL Alanine Aminotransferase (ALT), S 19 7 - 45 U/L 08/29/2023 12:33 PM CDT DTL Bilirubin, Total, S 0.4 0.0 - 1.2 mg/dL 08/29/2023 12:33 PM CDT DTL Blood (Blood, Venous) 08/29/2023 11:30 AM CDT 08/29/2023 12:01 PM CDT Blanche Monzon P.A.-C., M.S. LAB BLOO D ADD-ON [facility] [address] [place] [address], [facility] [address] [place] [address] * (ABNORMAL) CBC with Differential, Blood (08/29/2023 11:30 AM CDT) Hemoglobin 12.4 11.6 - 15.0 g/dL 08/29/2023 12:18 PM CDT DTL Hematocrit 38.5 35.5 - 44.9 % 08/29/2023 12:18 PM CDT DTL Erythrocytes 4.33 3.92 - 5.13 x10(12)/L 08/29/2023 12:18 PM CDT DTL MCV 88.9 78.2 - 97.9 fL 08/29/2023 12:18 PM CDT DTL RBC Distrib Width 12.1(L) 12.2 - 16.1 % 08/29/2023 12:18 PM CDT DTL Platelet Count 242 157 - 371 x10(9)/L 08/29/2023 12:18 PM CDT DTL Leukocytes 6.0 3.4 - 9.6 x10(9)/L 08/29/2023 12:18 PM CDT DTL Neutrophils 4.83 1.56 - 6.45 x10(9)/L 08/29/2023 12:18 PM CDT DHPM Lymphocytes 0.65(L) 0.95 - 3.07 x10(9)/L 08/29/2023 12:18 PM CDT DTL Monocytes 0.41 0.26 - 0.81 x10(9)/L 08/29/2023 12:18 PM CDT DTL Eosinophils 0.10 0.03 - 0.48 x10(9)/L 08/29/2023 12:18 PM CDT DTL Basophils 0.03 0.01 - 0.08 x10(9)/L 08/29/2023 12:18 PM CDT DTL Blood (Blood, Venous) 08/29/2023 11:30 AM CDT 08/29/2023 11:52 AM CDT Blanche Monzon P.A.-C. M.S. LAB BLOO D ADD-ON [facility] [address] [place] [address], [facility] DTL [facility] [address] [place] [address] [facility] [address] [place] [address] * Thyroid Function [place] (08/08/2023 11:12 AM CDT) [facility] TSH, Sensitive 1.6 0.3 - 4.2 mIU/L 08/08/2023 12:06 PM CDT DTL Blood (Blood, Venous) 08/08/2023 11:12 AM CDT 08/08/2023 11:35 AM CDT Blanche Monzon P.A.-C., M.S. LAB BLOO D ADD-ON [facility] [address] [place] [address], [facility] [address] [place] [address] * Bilirubin, Direct (08/08/2023 11:12 AM CDT) Bilirubin, Direct, S <0.2 0.0 - 0.3 mg/dL 08/08/2023 12:06 PM CDT DTL Blood (Blood, Venous) 08/08/2023 11:12 AM CDT 08/08/2023 11:35 AM CDT Blanche Monzon P.A.-C., M.S. LAB BLOO D ADD-ON Performing Organization Address City/[facility]/ZIP Co de Phone Number [facility] [address] [place] [address], [facility] [address] [place] [address] * Comprehensive Metabolic Panel (08/08/2023 11:12 AM CDT) Potassium, S 4.4 3.6 - 5.2 mmol/L 08/08/2023 12:06 PM CDT DTL Sodium, S 141 135 - 145 mmol/L 08/08/2023 12:06 PM CDT DTL Chloride, S 104 98 - 107 mmol/L 08/08/2023 12:06 PM CDT DTL Bicarbonate, S 27 22 - 29 mmol/L 08/08/2023 12:06 PM CDT DTL Anion Gap 10 7 - 15 08/08/2023 12:06 PM CDT DTL BUN (Blood Urea Nitrogen), S 17 6 - 21 mg/dL 08/08/2023 12:06 PM CDT DTL Creatinine 0.70 0.59 - 1.04 mg/dL 08/08/2023 12:06 PM CDT DTL Estimated GFR (eGFR) 88 >=60 mL/min/BS A 08/08/2023 12:06 PM CDT DTL Comment: Estimated GFR calculated using the 2020 CKD_EPI creatinine equation. Calcium, Total, S 9.4 8.8 - 10.2 mg/dL 08/08/2023 12:06 PM CDT DTL Glucose, S 96 70 - 140 mg/dL 08/08/2023 12:06 PM CDT DTL Protein, Total, S 6.8 6.3 - 7.9 g/dL 08/08/2023 12:06 PM CDT DTL Albumin, S 4.3 3.5 - 5.0 g/dL 08/08/2023 12:06 PM CDT DTL Aspartate Aminotransferase (AST), S 32 8 - 43 U/L 08/08/2023 12:06 PM CDT DTL Alkaline Phosphatase, S 91 35 - 104 U/L 08/08/2023 12:06 PM CDT DTL Alanine Aminotransferase (ALT), S 22 7 - 45 U/L 08/08/2023 12:06 PM CDT DTL Bilirubin, Total, S 0.4 0.0 - 1.2 mg/dL 08/08/2023 12:06 PM CDT DTL Blood (Blood, Venous) 08/08/2023 11:12 AM CDT 08/08/2023 11:35 AM CDT Blanche Monzon P.A.-C. [place]. LAB BLOO D ADD-ON [facility] [address] [place] [address], [facility] [address] [place] [address] * (ABNORMAL) CBC with Differential, Blood (08/08/2023 11:12 AM CDT) Hemoglobin 12.2 11.6 - 15.0 g/dL 08/08/2023 11:49 AM CDT DTL Hematocrit 37.5 35.5 - 44.9 % 08/08/2023 11:49 AM CDT DTL Erythrocytes 4.18 3.92 - 5.13 x10(12)/L 08/08/2023 11:49 AM CDT DTL MCV 89.7 78.2 - 97.9 fL 08/08/2023 11:49 AM CDT DTL RBC Distrib Width 12.4 12.2 - 16.1 % 08/08/2023 11:49 AM CDT DTL Platelet Count 206 157 - 371 x10(9)/L 08/08/2023 11:49 AM CDT DTL Leukocytes 5.5 3.4 - 9.6 x10(9)/L 08/08/2023 11:49 AM CDT DTL Neutrophils 4.25 1.56 - 6.45 x10(9)/L 08/08/2023 11:49 AM CDT DHPM Lymphocytes 0.72(L) 0.95 - 3.07 x10(9)/L 08/08/2023 11:49 AM CDT DTL Monocytes 0.43 0.26 - 0.81 x10(9)/L 08/08/2023 11:49 AM CDT DTL Eosinophils 0.08 0.03 - 0.48 x10(9)/L 08/08/2023 11:49 AM CDT DTL Basophils 0.03 0.01 - 0.08 x10(9)/L 08/08/2023 11:49 AM CDT DTL Blood (Blood, Venous) 08/08/2023 11:12 AM CDT 08/08/2023 11:19 AM CDT Blanche Monzon P.A.-C. [place]. 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
--- OUTSIDE RECORDS SUMMARY | 2023-10-20 00:43 | XMS_ITS | Encounter Summary ---
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 [address] [place] [address] [facility] Referral ID Status Reason Start Date Expiration Date Visits Re quested Visits Authorized [id number] Closed 07/24/2023 2024 1 1 Encounter Details Date Type Department Care Team (Late st Contact Info) Description 07/24/2023 Orders Only Department of Oncology in [place], [place] [address] [place] [phone] Woody Navarro M.D. 200 [place] [phone] Squamous Cell Carcinoma Of Skin Of Scalp And Neck (Primary Dx); Malignant Neoplasm Of Neck Squamous Cell; Lesion Skull Social History Tobacco Use Types Packs/Day Years [...] and heating? Not hard at all 09/02/2022 [facility] - Occupational Stress [...] your living situation today? I have a [facility] place to live 02/16/2023 Education Answer Date Recorded What is the highest level of school you have completed or the highest degree you have received? Bachelor's degree (e.g., BA, AB, BS) 01/24/2022 Sex and Gender Information Value Date Recorded Sex Assigned at Female 01/24/2022 7:37 PM UPSTAIRS MAID Gender Identity Female 01/24/2022 7:37 PM UPSTAIRS MAID Sexual Orientation Straight 01/24/2022 7: 37 PM UPSTAIRS MAID documented as of this encounter Plan of Treatment Upcoming Encounters Date Type Department Care Team (Late st Contact Info) Description 10/30/2023 11:00 AM CDT Clinical Communication Virtual Review in [place], [place] 200 [place] [address] 11/01/2023 11:40 AM CDT Lab Department of Laboratory Medicine and Pathology, [facility] in [place], [place] [address] [place] [phone] Remigio Frey M.D., Ph.D. [address] [place] [phone] 11/01/2023 1:40 PM CDT Office Visit Department of Oncology in [place], [place] [address] [place] [phone] Blanche Monzon P.A.-C., M.S. [address] [place] [phone] 11/01/2023 2:45 PM CDT Infusion Department of Oncology in [place], [place] [address] [place] [phone] Remigio Frey M.D., Ph.D. [address] [place] [phone] 11/08/2023 9:45 AM CDT Clinical Communication Virtual Review in [place], [place] 200 [place] [address] 11/10/2023 8:00 AM CDT Office Visit Department of Dermatology in [place], [place] [address] [place] [phone] Emily Bell M.D. [address] [place] [phone] 11/17/2023 11:00 AM CDT Clinical Communication Virtual Review in [place], [place] 200 [place] [address] 11/21/2023 11:10 AM CDT Lab Department of Laboratory Medicine and Pathology, [facility], in [place], [place] [address] [place] [phone] eRmigio Frey M.D., Ph.D. [address] [place] [phone] 11/21/2023 1:00 PM CDT Office Visit Department of Oncology in [place], [place] [address] [place] [phone] Mc Mcknight M.D., Ph.D. [address] [place] [phone] 11/21/2023 2:15 PM CDT Infusion Department of Oncology in [place], [place] [address] [place] [phone] Remigio Frey M.D., Ph.D. [address] [place] [phone] 12/11/2023 1:45 PM CDT Clinical Communication Virtual Review in [place], [place] 200 [place] [address] 12/12/2023 11:00 AM CDT Lab Department of Laboratory Medicine and Pathology, [facility], in [place], [place] [address] [place] [phone] Remigio Frey M.D., Ph.D. [address] [place] [phone] 12/12/2023 1:00 PM CDT Office Visit Department of Oncology in [place], [place] [address] [place] [phone] Mc Mcknight M.D., Ph.D. [address] [place] [phone] 12/12/2023 3:00 PM CDT Infusion Department of Oncology in [place], [place] [address] [place] [phone] Remigio Frey M.D., Ph.D. [address] [place] [phone] 01/17/2024 9:00 AM UPSTAIRS MAID Clinical Communication Virtual Review in [place], [place] 200 [place] [phone] 01/19/2024 2:30 PM UPSTAIRS MAID Comprehensive Visit Department of Neurology in [place], [place] [address] [place] [phone] Kory Alas M.B., Ch.B. [address] [place] [phone] documented as of this encounter Results * MR Brain without and with IV Contrast (07/27/2023 1:11 PM CDT) Anatomical Region Laterality Modality Head, Brain, Neuroradiology [facility], Neuroradiology ARZ [facility], Neuroradiology FLA [facility] N/A Magnetic Resonance Impressions 07/27/2023 2:07 PM CDT 1. Indeterminate right parieto-occipital calvarial lesion has mildly increased in size and is suspicious for a metastatic lesion. 2. Moderate interval improvement in the previously noted left parietal scalp enhancing subcutaneous nodule near the vertex. The area of decreased T1 marrow signal involving the underlying left greater than right paramedian parietal bone is overall slightly less conspicuous on the current study. Narrative 07/27/2023 2:07 PM CDT EXAM: MR BRAIN WITHOUT AND WITH IV CONTRAST COMPARISON: CT head 07/14/2023 and 09/09/2022; MRI brain 01/11/2023. FINDINGS: A T1 hypointense, T2 hyperintense, enhancing calvarial lesion in the right parieto-occipital skull near the lambdoid suture has slightly increased in size since 01/11/2023, now measuring approximately 14 x 6 x 12 mm (series 16, image 127; 15/117), compared to 11 x 5 x 9 mm previously on 01/11/2023 when remeasured in a similar fashion. The inner table of the calvarium is not well seen and may be dehiscent. No evidence of underlying parenchymal abnormality of the brain. No definite dural thickening or enhancement. Moderate interval improvement in the previously noted left parietal scalp enhancing subcutaneous nodule near the vertex (16-156 on the prior study when compared with 16-171 on the current study). The area of decreased T1 marrow signal involving the underlying left greater than right paramedian parietal bone is overall slightly less conspicuous compared to prior. No additional/ new enhancing scalp nodules. Similar biparietal thinning of the scalp tissue as before. Nonspecific, stable right parietal calvarial lesion near the vertex (16-179) as before. Similar mild to moderate generalized cerebral and cerebellar parenchymal volume loss with stable mild associated ex vacuo ventriculomegaly. Moderate leukoaraiosis. No abnormal diffusion restriction or susceptibility abnormality. The major intracranial flow voids appear preserved. Scattered mucosal thickening along bilateral ethmoid sinuses. Bilateral pseudophakia. Procedure Note Juma Lennon M.B.B.S., M.MED. - 07/27/2023 EXAM: MR BRAIN WITHOUT AND WITH IV CONTRAST COMPARISON: CT head 07/14/2023 and 09/09/2022; MRI brain 01/11/2023. FINDINGS: A T1 hypointense, T2 hyperintense, enhancing calvarial lesion inthe right parieto-occipital skull near the lambdoid suture has slightlyincreased in size since 01/11/2023, now measuring approximately 14 x 6 x 12mm (series 16, image 127; 15/117), compared to 11 x 5 x 9 mm previously on 01/11/2023 when remeasuredin a similar fashion. The inner table of the calvarium is not well seenand may be dehiscent. No evidence of underlying parenchymal abnormality ofthe brain. No definite dural thickening or enhancement. Moderate interval improvement in the previously noted left parietal scalpenhancing subcutaneous nodule near the vertex (16-156 on the prior studywhen compared with 16-171 on the current study). The area of decreased [id number] signal involving the underlying left greater than right paramedian parietal bone is overallslightly less conspicuous compared to prior. No additional/ new enhancingscalp nodules. Similar biparietal thinning of the scalp tissue as before.Nonspecific, stable right parietal calvarial lesion near the vertex (16-179) as before. Similar mild to moderate generalized cerebral and cerebellar parenchymalvolume loss with stable mild associated ex vacuo ventriculomegaly.Moderate leukoaraiosis. No abnormal diffusion restriction orsusceptibility abnormality. The major intracranial flow voids appear preserved. Scattered mucosal thickening along bilateralethmoid sinuses. Bilateral pseudophakia. IMPRESSION: 1. Indeterminate right parieto-occipital calvarial lesion has mildlyincreased in size and is suspicious for a metastatic lesion. 2. Moderate interval improvement in the previously noted left parietalscalp enhancing subcutaneous nodule near the vertex. The area of decreasedT1 marrow signal involving the underlying left greater than rightparamedian parietal bone is overall slightly less conspicuous on the current study. 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
--- OUTSIDE RECORDS SUMMARY | 2023-10-20 00:43 | XMS_ITS | Encounter Summary ---
Author Organization [facility] Address [address] [place] [address] Care Team Providers Care Line Service Supervisor Name Role Phone Elsewhere, Pcp Primary Care Provider Unavailabl e Encounter Details Date Type Department Care Team (Latest Contact Info) Description 07/12/2023 2:30 PM CDT Clinical Communication Virtual Review in [place], [place] [address] [place] [phone] Social History Tobacco Use Types Packs/Day Years [...] often do you attend chur ch or faith services? Never 01/24/2022 Do you belong to [...] and heating? Not hard at all 09/02/2022 [facility] [...] your living situation today? I have a [facility] place to live 02/16/2023 Education Answer Date Recorded What is the highest level of school you have completed or the highest degree you have received? Bachelor's degree (e.g., BA, AB, BS) 01/24/2022 Sex and Gender Information Value Date Recorded Sex Assigned at Female 01/24/2022 7:37 PM RETAIL BRANCH MANAGER Gender Identity Female 01/24/2022 7:37 PM RETAIL BRANCH MANAGER Sexual Orientation Straight 01/24/2022 7: 37 PM RETAIL BRANCH MANAGER documented as of this encounter Plan of Treatment Upcoming Encounters Date Type Department Care Team (Late st Contact Info) Description 10/30/2023 11:00 AM CDT Clinical Communication Virtual Review in [place], [place] 200 [place] [address] 11/01/2023 11:40 AM CDT Lab Department of Laboratory Medicine and Pathology, [facility], in [place], [place] [address] [place] [phone] Remigio Frey M.D., Ph.D. [address] [place] [phone] 11/01/2023 1:40 PM CDT Office Visit Department of Oncology in [address] [phone] Blanche Monzon P.A.-C., M.S. [address] [place] [phone] 11/01/2023 2:45 PM CDT Infusion Department of Oncology in [place], [place] [address] [place] [phone] Remigio Frey M.D., Ph.D. [address] [place] [phone] 11/08/2023 9:45 AM CDT Clinical Communication Virtual Review in [place], [place] 200 [place] [address] 11/10/2023 8:00 AM CDT Office Visit Department of Dermatology in [address] [phone] Emily Bell M.D. [address] [place] [phone] 11/17/2023 11:00 AM CDT Clinical Communication Virtual Review in [address] [phone] 11/21/2023 11:10 AM CDT Lab Department of Laboratory Medicine and Pathology, [facility] in [address] [phone] Remigio Frey M.D., Ph.D. [address] [place] [phone] 11/21/2023 1:00 PM CDT Office Visit Department of Oncology in [address] [phone] Mc Mcknight M.D., Ph.D. [address] [place] [phone] 11/21/2023 2:15 PM CDT Infusion Department of Oncology in [place], [place] [address] [place] [phone] Remigio Frey M.D., Ph.D. [address] [place] [phone] 12/11/2023 1:45 PM CDT Clinical Communication Virtual Review in [address] [phone] 12/12/2023 11:00 AM CDT Lab Department of Laboratory Medicine and Pathology, [facility], in [address] [phone] Remigio Frey M.D., Ph.D. [address] [place] [phone] 12/12/2023 1:00 PM CDT Office Visit Department of Oncology in [address] [phone] Mc Mcknight M.D., Ph.D. [address] [place] [phone] 12/12/2023 3:00 PM CDT Infusion Department of Oncology in [address] [phone] Remigio Frey M.D., Ph.D. [address] [place] [phone] 01/17/2024 9:00 AM RETAIL BRANCH MANAGER Clinical Communication Virtual Review in [address] [phone] 01/19/2024 2:30 PM RETAIL BRANCH MANAGER Comprehensive Visit Department of Neurology in [address] [phone] Kory Alas M.B., Ch.B. [address] [place] [phone] documented as of this encounter Visit Diagnoses Not on filedocumented in this encounter Care Teams Line Service Supervisor Relationship Specialty Start Date End Date Elsewhere, Pcp PCP - General Family Medicine 02/01/22 documented as of this encounter
--- OUTSIDE RECORDS SUMMARY | 2023-10-20 00:43 | XMS_ITS | Encounter Summary ---
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 [address] [place] [address] [facility] Referral ID Status Reason Start Date Expiration Date Visits Re quested Visits Authorized [id number] Closed 07/24/2023 2024 1 1 Encounter Details Date Type Department Care Team (Latest Contact Info) Description 07/27/2023 12:04 PM CDT - 07/27/2023 11:59 PM CDT Hospital Encounter Department of Radiology, [facility] in [place], [place] [address] [place] [address] Woody Navarro M.D. [address] [place] [address] Squamous Cell Carcinoma Of Skin Of Scalp And Neck; Malignant Neoplasm Of Neck Squamous Cell; Lesion Skull Discharge Disposition: Home or Self Care Social [...] week 01/24/2022 How often do you attend [facility] or yazidi services? Never 01/24/2022 Do you belong to [...] and heating? Not hard at all 09/02/2022 [facility] [place] of Occupat ional Health - Occupational Stress [...] your living situation today? [facility] 02/16/2023 Education Answer Date Recorded What is the highest level of school you have completed or the highest degree you have received? Bachelor's degree (e.g., BA, AB, BS) 01/24/2022 Sex and Gender Information Value Date Recorded Sex Assigned at Female 01/24/2022 7:37 PM BLUEPRINTER Gender Identity Female 01/24/2022 7:37 PM BLUEPRINTER Sexual Orientation Straight 01/24/2022 7: 37 PM BLUEPRINTER documented as of this encounter Medications at [...] 5 minutes, and rinse 120 mL 03/24/2023 methylcellulose, laxative, (CITRUCEL) 500 mg tablet [...] 01/09/2023 08/08/2023 documented as of this encounter Plan of Treatment Upcoming Encounters Date Type Department Care Team (Late st Contact Info) Description 10/30/2023 11:00 AM CDT Clinical Communication Virtual Review in [address] [phone] 11/01/2023 11:40 AM CDT Lab Department of Laboratory Medicine and Pathology, [facility], in [address] [address] Remigio Frey M.D., Ph.D. [address] [place] [phone] 11/01/2023 1:40 PM CDT Office Visit Department of Oncology in [address] [phone] Blanche Monzon P.A.-C., M.S. [address] [place] [phone] 11/01/2023 2:45 PM CDT Infusion Department of Oncology in [address] [phone] Remigio Frey M.D., Ph.D. [address] [place] [phone] 11/08/2023 9:45 AM CDT Clinical Communication Virtual Review in [address] [phone] 11/10/2023 8:00 AM CDT Office Visit Department of Dermatology in [address] [phone] Emily Bell M.D. [address] [place] [phone] 11/17/2023 11:00 AM CDT Clinical Communication Virtual Review in [place], [place] [address] [place] [address] 11/21/2023 11:10 AM CDT Lab Department of Laboratory Medicine and Pathology, [facility], in [place], [place] [address] [place] [phone] Remigio Frey M.D., Ph.D. [address] [place] [phone] 11/21/2023 1:00 PM CDT Office Visit Department of Oncology in [place], [place] [address] [place] [phone] Mc Mcknight M.D., Ph.D. [address] [place] [phone] 11/21/2023 2:15 PM CDT Infusion Department of Oncology in [place], [place] [address] [place] [phone] Remigio Frey M.D., Ph.D. [address] [place] [phone] 12/11/2023 1:45 PM CDT Clinical Communication Virtual Review in [address] [phone] 12/12/2023 11:00 AM CDT Lab Department of Laboratory Medicine and Pathology, [facility], in [place], [place] [address] [place] [phone] Remigio Frey M.D., Ph.D. [address] [place] [phone] 12/12/2023 1:00 PM CDT Office Visit Department of Oncology in [place], [place] [address] [place] [phone] Mc Mcknight M.D., Ph.D. [address] [place] [phone] 12/12/2023 3:00 PM CDT Infusion Department of Oncology in [place], [place] [address] [place] [phone] Remigio Frey M.D., Ph.D. [address] [place] [phone] 01/17/2024 9:00 AM BLUEPRINTER Clinical Communication Virtual Review in [address] [phone] 01/19/2024 2:30 PM BLUEPRINTER Comprehensive Visit Department of Neurology in [address] [phone] Kory Alas M.B., Ch.B. 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 Given 07/27/2023 12:58 PM CDT 6 mL documented in this encounter Care Teams Public Address Announcer Relationship Specialty Start Date End Date Elsewhere, Pcp PCP - General Family Medicine 02/01/22 documented as of this encounter
--- OUTSIDE RECORDS SUMMARY | 2023-10-20 00:43 | XMS_ITS | Encounter Summary ---
Author Organization [facility] Address [address] [place] [address] Care Team Providers Care Drive Away Driver Name Role Phone Elsewhere, Pcp Primary Care Provider Unavailabl e Encounter Details Date Type Department Care Team (Latest Contact Info) Description 07/14/2023 7:06 AM CDT - 07/14/2023 7:30 AM CDT Hospital Encounter Department of Laboratory Medicine and Pathology, [facility], in [place], [place] [address] [place] [address] Mc Mcknight M.D., Ph.D. [address] [place] [address] Malignant Neoplasm Of Neck Squamous Cell; Secondary Malignant Neoplasm Lymph Node (HCC) Discharge [...] often do you attend chur ch or sabianist services? Never 01/24/2022 Do you belong to [...] and heating? Not hard at all 09/02/2022 [facility] [place] of Occupat ional Health - Occupational Stress [...] your living situation today? I have a [facility] place to live 02/16/2023 Education Answer Date Recorded What is the highest level of school you have completed or the highest degree you have received? Bachelor's degree (e.g., BA, AB, BS) 01/24/2022 Sex and Gender Information Value Date Recorded Sex Assigned at Female 01/24/2022 7:37 PM PRODUCTION TROUBLESHOOTER Gender Identity Female 01/24/2022 7:37 PM PRODUCTION TROUBLESHOOTER Sexual Orientation Straight 01/24/2022 7: 37 PM PRODUCTION TROUBLESHOOTER documented as of this encounter Medications at [...] AM CDT Clinical Communication Virtual Review in [address] [phone] 11/01/2023 11:40 AM CDT Lab Department of Laboratory Medicine and Pathology, [facility], in [address] [phone] Remigio Frey M.D., Ph.D. [address] [place] [phone] 11/01/2023 1:40 PM CDT Office Visit Department of Oncology in [address] [phone] Blanche Monzon P.A.-C., M.S. [address] [place] [phone] 11/01/2023 2:45 PM CDT Infusion Department of Oncology in [place], [place] [address] [place] [phone] Remigio Frey M.D., Ph.D. [address] [place] [phone] 11/08/2023 9:45 AM CDT Clinical Communication Virtual Review in [place], [place] 200 [place] [address] 11/10/2023 8:00 AM CDT Office Visit Department of Dermatology in [address] [phone] Emily Bell M.D. [address] [place] [phone] 11/17/2023 11:00 AM CDT Clinical Communication Virtual Review in [address] [phone] 11/21/2023 11:10 AM CDT Lab Department of Laboratory Medicine and Pathology, [facility], in [address] [phone] Remigio Frey M.D., Ph.D. [address] [place] [phone] 11/21/2023 1:00 PM CDT Office Visit Department of Oncology in [place], [place] [address] [place] [phone] Mc Mcknight M.D., Ph.D. [address] [place] [phone] 11/21/2023 2:15 PM CDT Infusion Department of Oncology in [place], [place] [address] [place] [phone] Remigio Frey M.D., Ph.D. [address] [place] [phone] 12/11/2023 1:45 PM CDT Clinical Communication Virtual Review in [place], [place] [address] [place] [address] 12/12/2023 11:00 AM CDT Lab Department of Laboratory Medicine and Pathology, [facility], in [place], [place] [address] [place] [phone] Remigio Frey M.D., Ph.D. [address] [place] [phone] 12/12/2023 1:00 PM CDT Office Visit Department of Oncology in [address] [phone] Mc Mcknight M.D., Ph.D. [address] [place] [phone] 12/12/2023 3:00 PM CDT Infusion Department of Oncology in [place], [place] [address] [place] [phone] Remigio Frey M.D., Ph.D. [address] [place] [phone] 01/17/2024 9:00 AM PRODUCTION TROUBLESHOOTER Clinical Communication Virtual Review in [address] [phone] 01/19/2024 2:30 PM PRODUCTION TROUBLESHOOTER Comprehensive Visit Department of Neurology in [address] [phone] Kory Alas M.B., Ch.B. 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) documented in this encounter Results * Comprehensive Metabolic Panel (07/14/2023 7:19 AM CDT) Potassium, S 4.4 3.6 - 5.2 mmol/L 07/14/2023 8:15 AM CDT DTL Sodium, S 143 135 - 145 mmol/L 07/14/2023 8:15 AM CDT DTL Chloride, S 106 98 - 107 mmol/L 07/14/2023 8:15 AM CDT DTL Bicarbonate, S 29 22 - 29 mmol/L 07/14/2023 8:15 AM CDT DTL Anion Gap 8 7 - 15 07/14/2023 8:15 AM CDT DTL BUN (Blood Urea Nitrogen), S 15 6 - 21 mg/dL 07/14/2023 8:15 AM CDT DTL Creatinine 0.71 0.59 - 1.04 mg/dL 07/14/2023 8:15 AM CDT DTL Estimated GFR (eGFR) 88 >=60 mL/min/BS A 07/14/2023 8:15 AM CDT DTL Comment: Estimated GFR calculated using the 2020 CKD_EPI creatinine equation. Calcium, Total, S 9.6 8.8 - 10.2 mg/dL 07/14/2023 8:15 AM CDT DTL Glucose, S 88 70 - 140 mg/dL 07/14/2023 8:15 AM CDT DTL Protein, Total, S 6.3 6.3 - 7.9 g/dL 07/14/2023 8:15 AM CDT DTL Albumin, S 4.1 3.5 - 5.0 g/dL 07/14/2023 8:15 AM CDT DTL Aspartate Aminotransferase (AST), S 31 8 - 43 U/L 07/14/2023 8:15 AM CDT DTL Alkaline Phosphatase, S 91 35 - 104 U/L 07/14/2023 8:15 AM CDT DTL Alanine Aminotransferase (ALT), S 20 7 - 45 U/L 07/14/2023 8:15 AM CDT DTL Bilirubin, Total, S 0.3 0.0 - 1.2 mg/dL 07/14/2023 8:15 AM CDT DTL Blood (Blood, Venous) 07/14/2023 7:19 AM CDT 07/14/2023 7:58 AM CDT Mc Mcknight M.D., Ph.D. LAB BLOO D ADD-ON [facility] [address] [place] [address], [facility] DTL [facility] [address] [place] [address] * (ABNORMAL) CBC with Differential, Blood (07/14/2023 7:19 AM CDT) Hemoglobin 12.9 11.6 - 15.0 g/dL 07/14/2023 7:55 AM CDT DTL Hematocrit 38.0 35.5 - 44.9 % 07/14/2023 7:55 AM CDT DTL Erythrocytes 4.27 3.92 - 5.13 x10(12)/L 07/14/2023 7:55 AM CDT DTL MCV 89.0 78.2 - 97.9 fL 07/14/2023 7:55 AM CDT DTL RBC Distrib Width 12.5 12.2 - 16.1 % 07/14/2023 7:55 AM CDT DTL Platelet Count 222 157 - 371 x10(9)/L 07/14/2023 7:55 AM CDT DTL Leukocytes 3.9 3.4 - 9.6 x10(9)/L 07/14/2023 7:55 AM CDT DTL Neutrophils 2.48 1.56 - 6.45 x10(9)/L 07/14/2023 7:55 AM CDT DHPM Lymphocytes 0.86(L) 0.95 - 3.07 x10(9)/L 07/14/2023 7:55 AM CDT DTL Monocytes 0.38 0.26 - 0.81 x10(9)/L 07/14/2023 7:55 AM CDT DTL Eosinophils 0.11 0.03 - 0.48 x10(9)/L 07/14/2023 7:55 AM CDT DTL Basophils 0.03 0.01 - 0.08 x10(9)/L 07/14/2023 7:55 AM CDT DTL Blood (Blood, Venous) 07/14/2023 7:19 AM CDT 07/14/2023 7:43 AM CDT Mc Mcknight M.D., Ph.D. 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
--- OUTSIDE RECORDS SUMMARY | 2023-10-20 00:43 | XMS_ITS | Encounter Summary ---
Author Organization [facility] Address [address] [place] [address] Care Team Providers Care Forestry Aid Technician Name Role Phone Elsewhere, Pcp Primary Care Provider Unavailabl e Encounter Details Date Type Department Care Team (Late st Contact Info) Description 06/14/2023 Clinical Communication Department of Oncology in [place], [place] [address] [place] [phone] Mc Mcknight M.D., Ph.D. [address] [place] [phone] Social History Tobacco Use Types Packs/Day Years [...] at all 09/02/2022 [facility] of Occupat ionla Health - Occupational Stress Questionnaire Answer Date [...] your living situation today? I have a [facility] place to live 02/16/2023 Education Answer Date Recorded What is the highest level of school you have completed or the highest degree you have received? Bachelor's degree (e.g., BA, AB, BS) 01/24/2022 Sex and Gender Information Value Date Recorded Sex Assigned at Female 01/24/2022 7:37 PM METER CALIBRATOR Gender Identity Female 01/24/2022 7:37 PM METER CALIBRATOR Sexual Orientation Straight 01/24/2022 7: 37 PM METER CALIBRATOR documented as of this encounter Plan of Treatment Upcoming Encounters Date Type Department Care Team (Late st Contact Info) Description 10/30/2023 11:00 AM CDT Clinical Communication Virtual Review in [place], [place] [address] [place] [address] 11/01/2023 11:40 AM CDT Lab Department of Laboratory Medicine and Pathology, [facility], in [place], [place] [address] [place] [phone] Remigio Frey M.D., Ph.D. [address] [place] [phone] 11/01/2023 1:40 PM CDT Office Visit Department of Oncology in [place], [place] [address] [place] [phone] Blanche Monzon P.A.-C., M.S. [address] [place] [phone] 11/01/2023 2:45 PM CDT Infusion Department of Oncology in [place], [place] [address] [place] [phone] Remigio Frey M.D., Ph.D. [address] [place] [phone] 11/08/2023 9:45 AM CDT Clinical Communication Virtual Review in [address] [phone] 11/10/2023 8:00 AM CDT Office Visit Department of Dermatology in [address] [phone] Emily Bell M.D. [address] [place] [phone] 11/17/2023 11:00 AM CDT Clinical Communication Virtual Review in [address] [phone] 11/21/2023 11:10 AM CDT Lab Department of Laboratory Medicine and Pathology, [facility], in [address] [phone] Remigio Frey M.D., Ph.D. [address] [place] [phone] 11/21/2023 1:00 PM CDT Office Visit Department of Oncology in [address] [phone] Mc Mcknight M.D., Ph.D. [address] [place] [phone] 11/21/2023 2:15 PM CDT Infusion Department of Oncology in [place], [place] [address] [place] [phone] Remigio Frey M.D., Ph.D. [address] [place] [phone] 12/11/2023 1:45 PM CDT Clinical Communication Virtual Review in [place], [place] 200 [place] [address] 12/12/2023 11:00 AM CDT Lab Department of Laboratory Medicine and Pathology, [facility], in [place], [place] [address] [place] [phone] Remigio Frey M.D., Ph.D. [address] [place] [phone] 12/12/2023 1:00 PM CDT Office Visit Department of Oncology in [place], [place] [address] [place] [phone] Mc Mcknight M.D., Ph.D. [address] [place] [phone] 12/12/2023 3:00 PM CDT Infusion Department of Oncology in [address] [phone] Remigio Frey M.D., Ph.D. [address] [place] [phone] 01/17/2024 9:00 AM METER CALIBRATOR Clinical Communication Virtual Review in [address] [phone] 01/19/2024 2:30 PM METER CALIBRATOR Comprehensive Visit Department of Neurology in [place], [place] [address] [place] [phone] Kory Alas M.B., Ch.B. [address] [place] [phone] documented as of this encounter Visit Diagnoses Not on filedocumented in this encounter Care Teams Forestry Aid Technician Relationship Specialty Start Date End Date Elsewhere, Pcp PCP - General Family Medicine 02/01/22 documented as of this encounter
--- OUTSIDE RECORDS SUMMARY | 2023-10-20 00:43 | XMS_ITS | Encounter Summary ---
Author Organization [facility] Address [address] [place] [address] Care Team Providers Care Veterinary Pathologist Name Role Phone Elsewhere, Pcp Primary Care Provider Unavailabl e Reason for Referral * MRI/CAT/PET Scan (Routine) - Closed Specialty Diagnoses / Procedures Referred By Ryan cronin Referred To Contact Radiology Diagnoses Malignant Neoplasm Of Neck Squamous Cell Procedures CT Neck Soft Tissue with IV Contrast CT Neck Soft Tissue without IV Contrast Mc Mcknight M.D., Ph.D. 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 [address] [place] [phone] [facility] Referral ID Status Reason Start Date Expiration Date Visits Re quested Visits Authorized [id number] Closed 04/14/2023 04/13/2024 1 1 Encounter Details Date Type Department Care Team (Latest Contact Info) Description 07/14/2023 7:31 AM CDT - 07/14/2023 11:59 PM CDT Hospital Encounter Department of Radiology, [facility], in [place], [place] [address] [place] [address] Mc Mcknight M.D., Ph.D. [address] [place] [address] Malignant Neoplasm Of Neck Squamous Cell; Secondary [...] week 01/24/2022 How often do you attend [facility] or mu-ism services? Never 01/24/2022 Do you [...] and heating? Not hard at all 09/02/2022 [facility] Occupat ional Health - Occupational Stress [...] your living situation today? I have a [facility] place to live 02/16/2023 Education Answer Date Recorded What is the highest level of school you have completed or the highest degree you have received? Bachelor's degree (e.g., BA, AB, BS) 01/24/2022 Sex and Gender Information Value Date Recorded Sex Assigned at Female 01/24/2022 7:37 PM PROGRAM MANAGER SLP Gender Identity Female 01/24/2022 7:37 PM PROGRAM MANAGER SLP Sexual Orientation Straight 01/24/2022 7: 37 PM PROGRAM MANAGER SLP documented as of this encounter Medications at [...] Virtual Review in [place], [place] [address] [place] [address] 11/01/2023 11:40 AM CDT Lab Department of Laboratory Medicine and Pathology, [facility], in [place], [place] [address] [place] [phone] Remigio Frey M.D., Ph.D. [address] [place] [phone] 11/01/2023 1:40 PM CDT Office Visit Department of Oncology in [place], [place] [address] [place] [phone] Blanche Monzon P.A.-C., M.S. [address] [place] [phone] 11/01/2023 2:45 PM CDT Infusion Department of Oncology in [place], [place] [address] [place] [phone] Remigio Frey M.D., Ph.D. [address] [place] [phone] 11/08/2023 9:45 AM CDT Clinical Communication Virtual Review in [address] [phone] 11/10/2023 8:00 AM CDT Office Visit Department of Dermatology in [address] [phone] Emily Bell M.D. [address] [place] [phone] 11/17/2023 11:00 AM CDT Clinical Communication Virtual Review in [place], [place] [address] [place] [address] 11/21/2023 11:10 AM CDT Lab Department of Laboratory Medicine and Pathology, [facility], in [place], [place] [address] [place] [phone] Remigio Frey M.D., Ph.D. [address] [place] [phone] 11/21/2023 1:00 PM CDT Office Visit Department of Oncology in [place], [place] [address] [place] [phone] Mc Mcknight M.D., Ph.D. [address] [place] [phone] 11/21/2023 2:15 PM CDT Infusion Department of Oncology in [place], [place] [address] [place] [phone] Remigio Frey M.D., Ph.D. [address] [place] [phone] 12/11/2023 1:45 PM CDT Clinical Communication Virtual Review in [address] [phone] 12/12/2023 11:00 AM CDT Lab Department of Laboratory Medicine and Pathology, [facility], in [place], [place] [address] [place] [phone] Remigio Frey M.D., Ph.D. [address] [place] [phone] 12/12/2023 1:00 PM CDT Office Visit Department of Oncology in [address] [phone] Mc Mcknight M.D., Ph.D. [address] [place] [phone] 12/12/2023 3:00 PM CDT Infusion Department of Oncology in [place], [place] [address] [place] [phone] Remigio Frey M.D., Ph.D. [address] [place] [phone] 01/17/2024 9:00 AM PROGRAM MANAGER SLP Clinical Communication Virtual Review in [place], [place] [address] [place] [phone] 01/19/2024 2:30 PM PROGRAM MANAGER SLP Comprehensive Visit Department of Neurology in [place], [place] [address] [place] [phone] Kory Alas M.B., Ch.B. 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) CT NECK SOFT TISSUE WITH IV CONTRAST RAD - Routine (most inpatients and all outpatients) 07/14/2023 8:26 AM CDT Malignant Neoplasm Of Neck Squamous Cell CT HEAD WITHOUT AND WITH IV CONTRAST RAD - Routine (most inpatients and all outpatients) 07/14/2023 8:26 AM CDT 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 No significant interval change. This includes nothing for metastatic disease, including no adenopathy. No aggressive appearing osseous lesion. Again posttreatment changes of the neck bilaterally. These include ill-defined soft tissue thickening and stranding, as well as heterogeneous attenuation of the salivary glands, particularly the parotid glands. Multifocal retention cysts of the bilateral lingual tonsils, including in the vallecula on the right. Small bilateral thyroid nodules, greater on the right. Atherosclerotic changes including calcifications at the carotid bulbs, without high-grade proximal ICA narrowing. Please see separate head CT and chest CT reports for additional findings. Procedure Note Josh Farooq M.D. - 07/14/2023 EXAM: CT NECK SOFT TISSUE WITH IV CONTRAST COMPARISON: Soft tissue neck CT 04/13/2023 FINDINGS: Clinical information: History of poorly differentiated squamouscell carcinoma of the scalp vertex with metastatic disease involving aleft level 5 lymph node status post wide local excision and bilateral neckdissection on 02/01/2022 with adjuvant radiation therapy (completed on 04/29/2022). No significant interval change. This includes nothing for metastaticdisease, including no adenopathy. No aggressive appearing osseous lesion.Again posttreatment changes of the neck bilaterally. These includeill-defined soft tissue thickening and stranding, as well as heterogeneous attenuation of the salivary glands,particularly the parotid glands. Multifocal retention cysts of thebilateral lingual tonsils, including in the vallecula on the right. Smallbilateral thyroid nodules, greater on the right. Atherosclerotic changes including calcifications at the carotidbulbs, without high-grade proximal ICA narrowing. Please see separate headCT and chest CT reports for additional findings. IMPRESSION: No significant interval change, including nothing for adenopathy or othermetastatic disease in the neck. Mc Mcknight M.D., Ph.D. IMG CT P ROCEDURES * CT Abdomen Pelvis with IV Contrast (07/14/2023 8:26 AM CDT) Anatomical Region Laterality Modality Abdomen, Pelvis, Abdominal R ST LOS, Abdominal ARZ LOS, Abdominal FLA LOS N/A Computed Tomograp hy, Computed Tomography 07/14/2023 8:19 AM CDT Impressions 07/14/2023 9:47 AM CDT Nothing for metastases in the abdomen or pelvis. Narrative 07/14/2023 9:47 AM CDT EXAM: ??CT ABDOMEN PELVIS WITH IV CONTRAST COMPARISON: ??04/13/2023 CT abdomen and pelvis. FINDINGS: ??Unchanged liver hypodensities are probably benign. Patent portal and hepatic veins. Negative pancreas, adrenals and spleen. Left kidney cyst. Hysterectomy. Negative bladder. No abdominopelvic lymphadenopathy. Atherosclerotic aorta. Small hiatus hernia. The bowel is not distended. Fecal loading in the colon. Sigmoid diverticulosis without diverticulitis. Small fat-containing umbilical hernia. No suspicious bone lesions. Remainder is negative or unchanged. This examination was performed in conjunction with a CT of the chest, which will be reported separately. Procedure Note Jesus Mcgrath M.B.BNeyS. - 07/14/2023 EXAM: CT ABDOMEN PELVIS WITH IV CONTRAST COMPARISON: 04/13/2023 CT abdomen and pelvis. FINDINGS: Unchanged liver hypodensities are probably benign. Patentportal and hepatic veins. Negative pancreas, adrenals and spleen. Leftkidney cyst. Hysterectomy. Negative bladder. No abdominopelviclymphadenopathy. Atherosclerotic aorta. Small hiatus hernia. The bowel is not distended. Fecal loading in the colon.Sigmoid diverticulosis without diverticulitis. Small fat-containingumbilical hernia. No suspicious bone lesions. Remainder is negative orunchanged. This examination was performed in conjunction with a CT of the chest,which will be reported separately. IMPRESSION: Nothing for metastases in the abdomen or pelvis. Mc Mcknight M.D., Ph.D. IMG CT P ROCEDURES * CT Head without and with IV Contrast (07/14/2023 8:26 AM CDT) Anatomical Region Laterality Modality Head, Neuroradiology RST LOS , Neuroradiology ARZ LOS, Neuroradiology FLA LOS N/A Computed Tomography, Compute d Tomography 07/14/2023 8:13 AM CDT Impressions 07/14/2023 8:47 AM CDT 1. Progressive increase in size of a right parieto-occipital lytic calvarial lesion, with new focal advanced thinning if not dehiscence of the inner table of the calvarium. Although not entirely specific, given the appearance and interval change, this is more likely to represent a metastasis than a benign calvarial lesion such as a hemangioma. Consider further evaluation with a PET/CT and head MRI. 2. Nothing convincing for recurrence of squamous cell carcinoma in the scalp, including a stable presumably postoperative 6 mm nodule in the left parietal scalp at the vertex. Narrative 07/14/2023 8:47 AM CDT EXAM: CT HEAD WITHOUT AND WITH IV CONTRAST COMPARISON: Head CT 09/09/2022; head MRI 01/11/2023 FINDINGS: Clinical information: Metastatic invasive squamous cell carcinoma of the scalp at the vertex, status post wide local excision, bilateral posterior neck dissection and radiation therapy. No significant change in the 0.7 cm maximal dimension enhancing nodule in the left parietal scalp at the vertex compared to either exam. No convincing associated underlying calvarial erosive change. No other/new scalp nodularity. Again multifocal scalp thinning/defects. A 1.3 cm maximal dimension lytic lesion of the right parieto-occipital calvarium has increased in size compared to both exams. It measures 1.3 cm oblique transverse on today's exam, compared to 1.1 cm on the MRI, compared to 0.6 cm on the prior CT. This is associated with focal advanced thinning if not dehiscence of the inner table of the calvarium. No convincing associated extra-axial component. No significant intracranial finding, including nothing for metastatic disease, allowing for the limitations of CT. Moderate generalized parenchymal volume loss and mild to moderate leukoaraiosis. Clear bilateral paranasal sinuses and mastoid air cells. Please see separate neck CT report for additional findings. Procedure Note Josh Farooq M.D. - 07/14/2023 EXAM: CT HEAD WITHOUT AND WITH IV CONTRAST COMPARISON: Head CT 09/09/2022; head MRI 01/11/2023 FINDINGS: Clinical information: Metastatic invasive squamous cellcarcinoma of the scalp at the vertex, status post wide local excision,bilateral posterior neck dissection and radiation therapy. No significant change in the 0.7 cm maximal dimension enhancing nodule inthe left parietal scalp at the vertex compared to either exam. Noconvincing associated underlying calvarial erosive change. No other/newscalp nodularity. Again multifocal scalp thinning/defects. A 1.3 cm maximal dimension lytic lesion of the right parieto-occipitalcalvarium has increased in size compared to both exams. It measures 1.3 cmoblique transverse on today's exam, compared to 1.1 cm on the MRI,compared to 0.6 cm on the prior CT. This is associated with focal advanced thinning if not dehiscence of the innertable of the calvarium. No convincing associated extra-axial component. No significant intracranial finding, including nothing for metastaticdisease, allowing for the limitations of CT. Moderate generalizedparenchymal volume loss and mild to moderate leukoaraiosis. Clearbilateral paranasal sinuses and mastoid air cells. Please see separate neck CT report for additional findings. IMPRESSION: 1. Progressive increase in size of a right parieto-occipital lyticcalvarial lesion, with new focal advanced thinning if not dehiscence ofthe inner table of the calvarium. Although not entirely specific, giventhe appearance and interval change, this is more likely to represent a metastasis than a benign calvarial lesion suchas a hemangioma. Consider further evaluation with a PET/CT and head MRI. 2. Nothing convincing for recurrence of squamous cell carcinoma in thescalp, including a stable presumably postoperative 6 mm nodule in the leftparietal scalp at the vertex. Svetomir N Juan Luis M.D., Ph.D. IMG CT P ROCEDURES * CT Chest with IV Contrast (07/14/2023 8:26 AM CDT) Anatomical Region Laterality Modality Chest, Thoracic RST LOS, Tho racic ARZ LOS, Thoracic ARZ LOS, Thoracic FLA LOS N/A Computed Tomography, Compute d Tomography 07/14/2023 8:20 AM CDT Impressions 07/14/2023 10:00 AM CDT No change since 04/13/2023. No evidence of metastatic disease in the chest. Stable tiny pulmonary nodules. Narrative 07/14/2023 10:00 AM CDT EXAM: CT CHEST WITH IV CONTRAST COMPARISON: CT chest with IV contrast enhancement 04/13/2023. FINDINGS: Tiny peribronchial nodule in the left upper lobe posteriorly (3/271). Tiny 2-3 mm groundglass nodule in the right apex centrally (133). These nodules are unchanged since 04/13/2023. No new nodules. Mild peripheral predominant reticular and groundglass opacities may represent atelectasis or mild/early fibrosis. No thoracic lymphadenopathy. Mild coronary artery calcifications. Benign hemangioma of bone T11 vertebral body. Small distal esophageal diverticulum. This examination was performed in conjunction with a CT of the abdomen, which will be reported separately. 3D maximum intensity projection (MIP) images were created on a dependent workstation as ordered by the treating provider and reviewed by the radiologist to increase sensitivity for detection of pulmonary nodules. Procedure Note Alberto Abreu M.D. - 07/14/2023 EXAM: CT CHEST WITH IV CONTRAST COMPARISON: CT chest with IV contrast enhancement 04/13/2023. FINDINGS: Tiny peribronchial nodule in the left upper lobe posteriorly (3/271). Tiny2-3 mm groundglass nodule in the right apex centrally (133). These nodulesare unchanged since 04/13/2023. No new nodules. Mild peripheral predominant reticular and groundglass opacities mayrepresent atelectasis or mild/early fibrosis. No thoracic lymphadenopathy. Mild coronary artery calcifications. Benignhemangioma of bone T11 vertebral body. Small distal esophagealdiverticulum. This examination was performed in conjunction with a CT of the abdomen,which will be reported separately. 3D maximum intensity projection (MIP) images were created on a dependentworkstation as ordered by the treating provider and reviewed by theradiologist to increase sensitivity for detection of pulmonary nodules. IMPRESSION: No change since 04/13/2023. No evidence of metastatic disease in the chest.Stable tiny pulmonary nodules. Mc Mcknight M.D., Ph.D. IMG CT P ROCEDURES documented in this [...] intravenous, Once in imaging, contrast, Starting on Mon07/14/23 at 0749, For 1 dose, Imaging Protocol Orders, Dose per Radiant Medication Guidelines Given 07/14/2023 8:03 AM CDT 100 mL sodium chloride (PF) 0.9 % injection 1-100 mL 1-100 mL, intravenous, Once, On Mon07/14/23 at 0815, For 1 dose, Imaging Protocol Orders, Dose per Radiant Medication Guidelines Given 07/14/2023 8:03 AM CDT 50 mL documented in this encounter Care Teams Veterinary Pathologist Relationship Specialty Start Date End Date Elsewhere, Pcp PCP - General Family Medicine 02/01/22 documented as of this encounter
--- OUTSIDE RECORDS SUMMARY | 2023-10-20 00:43 | XMS_ITS | Encounter Summary ---
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 [address] [place] [address] Health System Referral ID Status Reason Start Date Expiration Date Visits Re quested Visits Authorized [id number] Closed 07/14/2023 07/13/2024 1 1 Encounter Details Date Type Department Care Team (Latest Contact Info) Description 07/20/2023 9:34 AM CDT - 07/20/2023 1:37 PM CDT Hospital Encounter Department of Radiology, [facility], in [place], [place] [address] [place] [address] Woody Nvaarro M.D. [address] [place] [phone] Katherine Castillo M.B., B.Ch. [address] [place] [phone] Malignant Neoplasm Of Neck Squamous Cell; Lesion [...] week 01/24/2022 How often do you attend [facility] or christianity services? Never 01/24/2022 Do you belong to any clubs o r organizations such as christianity groups, unions, fraternal or athletic groups, or [...] Sex Assigned at Female 01/24/2022 7:37 PM CLINICAL ASSISTANT Gender Identity Female 01/24/2022 7:37 PM CLINICAL ASSISTANT Sexual Orientation Straight 01/24/2022 7: 37 PM CLINICAL ASSISTANT documented as of this encounter Last Filed Vital Signs Vital Sign Reading Time Taken Comments Blood Pressure 127/51 07/20/2023 1:15 PM CDT Pulse 55 07/20/2023 1:15 PM CDT Temperature 36.6 ??C (97.9 ??F) 07/20/2023 12:50 PM C DT Respiratory Rate 13 07/20/2023 1:15 PM CDT Oxygen Saturation 99% 07/20/2023 1:15 PM CDT Inhaled Oxygen Concentration - - Weight 58.7 kg (129 lb 6.6 oz) 07/20/2023 10:15 AM CDT Height - - Body Mass Index 22.76 07/14/2023 2:25 PM CDT documented in this encounter Discharge Instructions * Attachments The following attachments cannot be sent through Care Everywhere. * Care Following a Needle Biopsy (Faroese) documented in this encounter Medications at Time [...] 01/09/2023 08/08/2023 documented as of this encounter Procedure Notes * Usha Alexis APRN, C.N.P., M.S.N. - 07/20/2023 1:37 PM CDT PATIENT DISPOSITION Discharge to home. POST-PROCEDURE DIAGNOSIS Skull lesion PROCEDURE PERFORMED AND DESCRIPTION CT guided skull biopsy PROCEDURE DETAILS See Radiology Report SPECIMENS REMOVED See Pathology Report FINDINGS See procedure note PRIMARY PROCEDURALIST Dr. Castillo ASSISTANTS Dr. Nelson COMPLICATIONS None. DRAINS None. IMPLANTS None. ANESTHESIA Moderate Sedation. and Local Anesthesia. FLUIDS See MAR ESTIMATED BLOOD LOSS <5ml CURRENT MEDICATIONS No Medication Changes FOLLOW-UP LETTER None. MAY RETURN TO WORK Not applicable PATIENT INSTRUCTIONS No return appointment documented in this encounter Plan of Treatment Upcoming Encounters Date Type Department Care Team (Late st Contact Info) Description 10/30/2023 11:00 AM CDT Clinical Communication Virtual Review in [place], [place] [address] [place] [address] 11/01/2023 11:40 AM CDT Lab Department of Laboratory Medicine and Pathology, [facility] in [place], [place] [address] [place] [phone] Remigio Frey M.D., Ph.D. [address] [place] [phone] 11/01/2023 1:40 PM CDT Office Visit Department of Oncology in [place], [place] [address] [place] [phone] Blanche Monzon P.A.-C., M.S. [address] [place] [phone] 11/01/2023 2:45 PM CDT Infusion Department of Oncology in [place], [place] [address] [place] [phone] Remigio Frey M.D., Ph.D. [address] [place] [phone] 11/08/2023 9:45 AM CDT Clinical Communication Virtual Review in [address] [phone] 11/10/2023 8:00 AM CDT Office Visit Department of Dermatology in [place], [place] [address] [place] [phone] Emily Bell M.D. [address] [place] [phone] 11/17/2023 11:00 AM CDT Clinical Communication Virtual Review in [address] [phone] 11/21/2023 11:10 AM CDT Lab Department of Laboratory Medicine and Pathology, [facility], in [place], [place] [address] [place] [phone] Remigio Frey M.D., Ph.D. [address] [place] [phone] 11/21/2023 1:00 PM CDT Office Visit Department of Oncology in [place], [place] [address] [place] [phone] Mc Mcknight M.D., Ph.D. [address] [place] [phone] 11/21/2023 2:15 PM CDT Infusion Department of Oncology in [place], [place] [address] [place] [phone] Remigio Frey M.D., Ph.D. [address] [place] [phone] 12/11/2023 1:45 PM CDT Clinical Communication Virtual Review in [place], [place] [address] [place] [address] 12/12/2023 11:00 AM CDT Lab Department of Laboratory Medicine and Pathology, [facility], in [address] [phone] Remigio Frey M.D., Ph.D. [address] [place] [phone] 12/12/2023 1:00 PM CDT Office Visit Department of Oncology in [address] [phone] Mc Mcknight M.D., Ph.D. [address] [place] [phone] 12/12/2023 3:00 PM CDT Infusion Department of Oncology in [place], [place] [address] [place] [phone] Remigio Frey M.D., Ph.D. [address] [place] [phone] 01/17/2024 9:00 AM CLINICAL ASSISTANT Clinical Communication Virtual Review in [place], [place] [address] [place] [phone] 01/19/2024 2:30 PM CLINICAL ASSISTANT Comprehensive Visit Department of Neurology in [place], [place] [address] [place] [phone] Kory Alas M.B., Ch.B. 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 EP Woody ORTIZ CT PROCEDUR ES * (ABNORMAL) Cytology Fine [...] toto in cassette A1. 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 Malignant Neoplasm Of Neck Squamous Cell- Primary Secondary Malignant Neoplasm Bone (HCC) Other Field Representative Current 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 documented in this encounter Administered Medications Inactive Administered Medications - up to 3 most recent administrations Medication Order MAR Action Action Date Dose Rate Site acetaminophen tablet 1,000 mg (TYLENOL) 1,000 mg, oral, 4 times daily PRN, severe pain or score 7-10 of 10, moderate pain or score 4-6 of 10, Starting on Stacia 07/20/23 at 1254, (not to exceed 4 grams in 24 hours) Given 07/20/2023 1:10 PM CDT 1,000 mg fentaNYL injection 25 mcg (SUBLIMAZE) 25 mcg, intravenous, Once as needed, sedation, Starting on Stacia 07/20/23 at 1146, For 1 dose, Intraprocedure (RAD), IV Push fentaNYL injection 25 mcg (SUBLIMAZE) 25 mcg, intravenous, Every 2 min PRN, sedation, Administer over 1 minute immediately prior to the procedure. May repeat every 2 minutes to a maximum of 200 mcg, until pain score of 3 or less, or until the patient meets the pain comfort goal, or RASS 0 to -2. Do not give if respiratory rate is less than 8 breaths/minute., Starting on Stacia 07/20/23 at 1146, Intraprocedure (RAD) Given 07/20/2023 12:28 PM CDT 25 mcg Given 07/20/2023 12:21 PM CDT 25 mcg Given 07/20/2023 12:10 PM CDT 25 mcg flumazeniL injection 0.2 mg (ROMAZICON) 0.2 mg, intravenous, Once as needed, reversal, Starting on Stacia 07/20/23 at 1146, For 1 dose, Intraprocedure (RAD), Administer once if patient has a RASS score of -4, -5 and has a respiratory rate less than 8 breaths/minute. Lactated Ringer's 20 mL/hr, intravenous, Once as needed, to keep vein open, Starting on Stacia 07/20/23 at 1146, For 1 dose, Intraprocedure (RAD) New Bag 07/20/2023 11:50 AM CDT 20 mL/hr 20 mL/hr lidocaine (PF) 10 mg/mL (1 %) injection (XYLOCAINE) As needed, Starting on Stacia 07/20/23 at 1158, Intra-Op Given 07/20/2023 11:58 AM CDT 2 mL Other midazolam (PF) injection 0.25 mg (VERSED) 0.25 mg, intravenous, Every 2 min PRN, sedation, RASS -2, Starting on Stacia 07/20/23 at 1146, Intraprocedure (RAD), May repeat every 2 minutes to a maximum of 5 mg. Do not give if respiratory rate is less than 8 breaths/minute. midazolam (PF) injection 0.5 mg (VERSED) 0.5 mg, intravenous, Once as needed, sedation, Starting on Stacia 07/20/23 at 1146, For 1 dose, Intraprocedure (RAD) midazolam (PF) injection 0.5 mg (VERSED) 0.5 mg, intravenous, Every 2 min PRN, sedation, RASS -1, Starting on Stacia 07/20/23 at 1146, Intraprocedure (RAD), May repeat every 2 minutes for a maximum of 5 mg. Do not give if respiratory rate is less than 8 breaths/minute. Given 07/20/2023 12:12 PM CDT 0.5 mg Given 07/20/2023 11:56 AM CDT 0.5 mg midazolam (PF) injection 1 mg (VERSED) 1 mg, intravenous, Every 2 min PRN, sedation, RASS 0, Starting on Stacia 07/20/23 at 1146, Intraprocedure (RAD), May repeat every 2 minutes for a maximum of 5 mg. Do not give if respiratory rate is less than 8 breaths/minute. Given 07/20/2023 11:50 AM CDT 1 mg naloxone injection 0.2 mg (NARCAN) 0.2 mg, intravenous, Once as needed, respiratory depression, Starting on Stacia 07/20/23 at 1146, For 1 dose, Intraprocedure (RAD), Administer once if patient has a RASS score of -4, -5 and has a respiratory rate less than 8 breaths/minute. ondansetron (PF) injection 4 mg (ZOFRAN) 4 mg, intravenous, Once as needed, nausea, vomiting, Starting on Stacia 07/20/23 at 1146, For 1 dose, Intraprocedure (RAD) sodium chloride 0.9 % injection 10 mL 10 mL, intravenous, As needed, line care, Starting on Stacia 07/20/23 at 0959, Preprocedure (RAD), Peripheral Intravenous Catheter and Rapid Infusion Catheter, prior to blood sampling, post blood transfusion or post blood sampling sodium chloride 0.9 % injection 3 mL 3 mL, intravenous, As needed, line care, Starting on Stacia 07/20/23 at 0959, Preprocedure (RAD), Prior to and following infusion and between multiple consecutive infusions: sodium chloride 0.9 % injection sodium chloride 0.9 % injection 3 mL 3 mL, intravenous, Every 12 hours scheduled, First dose on Stacia 07/20/23 at 2100, Preprocedure (RAD), Peripheral Intravenous Catheter and Rapid Infusion Catheter, when no infusion to maintain patency documented in this encounter Active and Recently Administered Medications Times are shown in CDT. Scheduled Medication Order 07/18/2023 07/19/2023 07/20/2023 sodium chloride 0.9 % injection 3 mL 3 mL, intravenous, Every 12 hours scheduled, First dose on Stacia 07/20/23 at 2100, Preprocedure (RAD), Peripheral Intravenous Catheter and Rapid Infusion Catheter, when no infusion to maintain patency PRN Medication Order 07/18/2023 07/19/2023 07/20/2023 acetaminophen tablet 1,000 mg (TYLENOL) 1,000 mg, oral, 4 times daily PRN, severe pain or score 7-10 of 10, moderate pain or score 4-6 of 10, Starting on Stacia 07/20/23 at 1254, (not to exceed 4 grams in 24 hours) 1310 (Given - Provid er: Yoon Kent R.N.) fentaNYL injection 25 mcg (SUBLIMAZE) 25 mcg, intravenous, Once as needed, sedation, Starting on Stacia 07/20/23 at 1146, For 1 dose, Intraprocedure (RAD), IV Push fentaNYL injection 25 mcg (SUBLIMAZE) 25 mcg, intravenous, Every 2 min PRN, sedation, Administer over 1 minute immediately prior to the procedure. May repeat every 2 minutes to a maximum of 200 mcg, until pain score of 3 or less, or until the patient meets the pain comfort goal, or RASS 0 to -2. Do not give if respiratory rate is less than 8 breaths/minute., Starting on Stacia 07/20/23 at 1146, Intraprocedure (RAD) 1150 (Given - Provid er: Nuvia Delaney R.N.)1210 (Given - Provider: Nuvia Delaney R.N.)1221 (Given - Provider: Nuvia Delaney R.N.)1228 (Given - Provider: Nuvia Delaney R.N.) flumazeniL injection 0.2 mg (ROMAZICON) 0.2 mg, intravenous, Once as needed, reversal, Starting on Stacia 07/20/23 at 1146, For 1 dose, Intraprocedure (RAD), Administer once if patient has a RASS score of -4, -5 and has a respiratory rate less than 8 breaths/minute. Lactated Ringer's (COMPLETED) 20 mL/hr, intravenous, Once as needed, to keep vein open, Starting on Stacia 07/20/23 at 1146, For 1 dose, Intraprocedure (RAD) 1150 (New Bag - Prov ider: Nuvia Delaney R.N.)1240 (Stopped - Provider: Nuvia Delaney R.N.) lidocaine (PF) 10 mg/mL (1 %) injection (XYLOCAINE) (COMPLETED) As needed, Starting on Stacia 07/20/23 at 1158, Intra-Op 1158 (Given - Provid er: Samanta Nelson D.O. - Comment: posterior lateral head for skull biopsy) midazolam (PF) injection 0.25 mg (VERSED) 0.25 mg, intravenous, Every 2 min PRN, sedation, RASS -2, Starting on Stacia 07/20/23 at 1146, Intraprocedure (RAD), May repeat every 2 minutes to a maximum of 5 mg. Do not give if respiratory rate is less than 8 breaths/minute. midazolam (PF) injection 0.5 mg (VERSED) 0.5 mg, intravenous, Once as needed, sedation, Starting on Stacia 07/20/23 at 1146, For 1 dose, Intraprocedure (RAD) midazolam (PF) injection 0.5 mg (VERSED) 0.5 mg, intravenous, Every 2 min PRN, sedation, RASS -1, Starting on Stacia 07/20/23 at 1146, Intraprocedure (RAD), May repeat every 2 minutes for a maximum of 5 mg. Do not give if respiratory rate is less than 8 breaths/minute. 1156 (Given - Provid er: Nuvia Delaney R.N.)1212 (Given - Provider: Nuvia Delaney R.N.) midazolam (PF) injection 1 mg (VERSED) 1 mg, intravenous, Every 2 min PRN, sedation, RASS 0, Starting on Stacia 07/20/23 at 1146, Intraprocedure (RAD), May repeat every 2 minutes for a maximum of 5 mg. Do not give if respiratory rate is less than 8 breaths/minute. 1150 (Given - Provid er: Nuvia Delaney R.N.) naloxone injection 0.2 mg (NARCAN) 0.2 mg, intravenous, Once as needed, respiratory depression, Starting on Stacia 07/20/23 at 1146, For 1 dose, Intraprocedure (RAD), Administer once if patient has a RASS score of -4, -5 and has a respiratory rate less than 8 breaths/minute. ondansetron (PF) injection 4 mg (ZOFRAN) 4 mg, intravenous, Once as needed, nausea, vomiting, Starting on Stacia 07/20/23 at 1146, For 1 dose, Intraprocedure (RAD) sodium chloride 0.9 % injection 10 mL 10 mL, intravenous, As needed, line care, Starting on Stacia 07/20/23 at 0959, Preprocedure (RAD), Peripheral Intravenous Catheter and Rapid Infusion Catheter, prior to blood sampling, post blood transfusion or post blood sampling sodium chloride 0.9 % injection 3 mL 3 mL, intravenous, As needed, line care, Starting on Stacia 07/20/23 at 0959, Preprocedure (RAD), Prior to and following infusion and between multiple consecutive infusions: sodium chloride 0.9 % injection documented in this encounter Care Teams Notch Grinder Relationship Specialty Start Date End Date Elsewhere, Pcp PCP - General Family Medicine 02/01/22 documented as of this encounter
--- OUTSIDE RECORDS SUMMARY | 2023-10-20 00:43 | XMS_ITS | Encounter Summary ---
Author Organization [facility] Address [address] [place] [address] Care Team Providers Care Dehydration Unit Operator Name Role Phone Elsewhere, Pcp Primary Care Provider Unavailabl e Reason for Referral * Outpatient (Routine) - Closed Specialty Diagnoses / Procedures Referred By Ryan cronin Referred To Contact Oncology Woody Navarro M.D. 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 [address] [place] [address] [facility] Referral ID Status Reason Start Date Expiration Date Visits Re quested Visits Authorized [id number] Closed 07/14/2023 07/13/2024 1 1 Reason for Visit * Outpatient (Routine) - Closed Specialty Diagnoses / Procedures Referred By Ryan cronin Referred To Contact Oncology Mc Mcknight M.D., Ph.D. [address] [place] [address] [facility] Referral ID Status Reason Start Date Expiration Date Visits Re quested Visits Authorized [id number] Closed 04/14/2023 10/13/2024 1 1 Encounter Details Date Type Department Care Team (Late st Contact Info) Description 07/14/2023 2:40 PM CDT Office Visit Department of Oncology in [place], [place] [address] [place] [phone] Woody Navarro M.D. [address] [place] [phone] Malignant Neoplasm Of Neck Squamous Cell (Primary Dx); Lesion Skull Social History Tobacco Use Types [...] and heating? Not hard at all 09/02/2022 [facility] - [...] your living situation today? I have a [facility] place to live 02/16/2023 Education Answer Date Recorded What is the highest level of school you have completed or the highest degree you have received? Bachelor's degree (e.g., BA, AB, BS) 01/24/2022 Sex and Gender Information Value Date Recorded Sex Assigned at Female 01/24/2022 7:37 PM [employer] Gender Identity Female 01/24/2022 7:37 PM [employer] Sexual Orientation Straight 01/24/2022 7: 37 PM [employer]ER [employer] documented as of this encounter Last Filed Vital Signs Vital Sign Reading Time Taken Comments Blood Pressure 106/67 07/14/2023 2:25 PM CDT Pulse 58 07/14/2023 2:25 PM CDT Temperature 36.1 ??C (97 ??F) 07/14/2023 2:25 PM CDT Respiratory Rate 16 07/14/2023 2:25 PM CDT Oxygen Saturation 98% 07/14/2023 2:25 PM CDT Inhaled Oxygen Concentration - - Weight 58.7 kg (129 lb 6.6 oz) 07/14/2023 2:25 P M CDT Height 160.6 cm (5' 3.23) 07/14/2023 2:25 PM CD T Body Mass Index 22.76 07/14/2023 2:25 PM CDT documented in this encounter Progress Notes * Woody Navarro M.D. - 07/14/2023 2:40 PM CDT SUBJECTIVE Cancer Staging No matching staging information was found for the patient. Current Therapy: None Current Disease Status: Undetermined ECOG Performance Status: 0 Intent of Therapy: Curative Intent to Change Therapy: No PRIMARY CARE PHYSICIAN ELSEWHERE, PCP No care steam service inspector to display LOCAL ONCOLOGIST No care steam service inspector to display PRIMARY [place] ONCOLOGIST Mc Mcknight M.D., Ph.D. Blanche Monzon P.A.-C., M.S. CHIEF COMPLAINT / REASON FOR VISIT Veronica Guevara is a 77 y.o. female who presents for evaluation of local regionally advanced squamous cell carcinoma. She completed surgery and radiation and has not been on systemic therapy. She is asymptomatic and feeling well HISTORY OF PRESENT ILLNESS Oncology History Oncology History Malignant Neoplasm Of Neck Squamous Cell 07/2021 Initial Diagnosis July 2021: Noticed a lesion on the vertex of the scalp. Evaluated by distribution associate Dr. Banuelos in [place] and was treated for possible psoriasis. The lesion persisted after 6 weeks. She was then treated with UV phototherapy between September and December of 2021. September 22, 2021---December 17, 2021: Underwent biopsy of the vertex scalp lesion which revealed squamous cell carcinoma. Incisional biopsy of left level 5 lymph node also revealed squamous cell carcinoma. 12/30/2021 Biopsy/Pathology A. Skin, scalp, vertex, excisional biopsy ([id number]; 12/30/2021): Invasive poorly differentiated squamous cell carcinoma, transected at base and lateral edge of the specimen. B. Neck, left, soft tissue, biopsy ([id number]; 01/13/2022): Invasive poorly differentiated squamous cell carcinoma [...] Goal: Curative Planned Treatment Start Date: 03/15/2022 General: Associated symptoms: no chest pain, no fatigue, no fever, no nausea, no numbness and no vomiting The following portions of the patient's history were reviewed and updated as appropriate: allergies, current medications, medical history, and problem list. Rate your distress: 7 REVIEW OF SYSTEMS Constitutional: - Negative for fatigue, fever, loss of appetite and weight loss of more than 10 pounds. Cardiovascular: - Negative for chest pain, pressure or tightness and swelling in the legs or feet. Gastrointestinal: - Negative for diarrhea, nausea and vomiting. Hematologic: - Negative for abnormal lumps or bumps. Neurological: - Negative for numbness or shooting pain in hands, arms, legs, or feet. The following systems were negative: Respiratory, Genitourinary, Musculoskeletal, Psychiatric OBJECTIVE BP 106/67 (BP Location: Left arm, Patient Position: Sitting, Cuff Size: Regular) Pulse (!) 58 Temp 36.1 ??C (Tympanic) Resp 16 Ht 160.6 cm Wt 58.7 kg SpO2 98% BMI 22.76 kg/m?? PHYSICAL EXAM Constitutional Appearance: Normal appearance. HENT Head: Comments: Alopecia and prior surgical scars. I can not palpate any abnormality Cardiovascular Rate and Rhythm: Normal rate and regular rhythm. Pulmonary Effort: Pulmonary effort is normal. Breath sounds: Normal breath sounds. Abdominal General: Bowel sounds are normal. Palpations: Abdomen is soft. There is no hepatomegaly. Lymphadenopathy Cervical: No cervical adenopathy. Upper Body: Right upper body: No supraclavicular adenopathy. Left upper body: No supraclavicular adenopathy. Skin General: Skin is warm and dry. Neurological Mental Status: She is alert and oriented to person, place, and time. Psychiatric Behavior: Behavior is cooperative. LABORATORY DATA Lab data reviewed. RADIOLOGICAL DATA Radiology data reviewed. ASSESSMENT / PLAN #1 Malignant Neoplasm Of Neck Squamous Cell #2 Lesion Skull All of her scans are negative except for a slowly enlarging skull based lytic lesion. It has been slowly enlarging over the last 6 months. Given that, I think we should investigate this further. I spoke with Dr. Philip Cherry of neuroradiology, who reviewed the case with me. He thinks we do not need further imaging prior to biopsy and there is no vasculature immediately adjacent. The patient is not on any blood thinners. We will order a CT-guided biopsy and then see her back with the results PATIENT EDUCATION Ready to learn, no apparent learning barriers were identified; learning preferences include listening. Explained diagnosis and treatment plan; patient expressed understanding of the content. ADMINISTRATIVE BILLING I personally spent 35 minutes in care of the patient today. Time includes both non face to face andface to face patient care. documented in this encounter Plan of Treatment Upcoming Encounters Date Type Department Care Team (Late st Contact Info) Description 10/30/2023 11:00 AM CDT Clinical Communication Virtual Review in [place], [place] [address] [place] [address] 11/01/2023 11:40 AM CDT Lab Department of Laboratory Medicine and Pathology, [facility], in [place], [place] [address] [place] [phone] Remigio Frey M.D., Ph.D. [address] [place] [phone] 11/01/2023 1:40 PM CDT Office Visit Department of Oncology in [place], [place] [address] [place] [phone] Blanche Monzon P.A.-C., M.S. [address] [place] [phone] 11/01/2023 2:45 PM CDT Infusion Department of Oncology in [place], [place] [address] [place] [phone] Remigio Frey M.D., Ph.D. [address] [place] [phone] 11/08/2023 9:45 AM CDT Clinical Communication Virtual Review in [address] [phone] 11/10/2023 8:00 AM CDT Office Visit Department of Dermatology in [address] [phone] Emily Bell M.D. [address] [place] [phone] 11/17/2023 11:00 AM CDT Clinical Communication Virtual Review in [address] [phone] 11/21/2023 11:10 AM CDT Lab Department of Laboratory Medicine and Pathology, [facility], in [place], [place] [address] [place] [phone] Remigio Frey M.D., Ph.D. [address] [place] [phone] 11/21/2023 1:00 PM CDT Office Visit Department of Oncology in [address] [phone] Mc Mcknight M.D., Ph.D. [address] [place] [phone] 11/21/2023 2:15 PM CDT Infusion Department of Oncology in [place], [place] [address] [place] [phone] Remigio Frey M.D., Ph.D. [address] [place] [phone] 12/11/2023 1:45 PM CDT Clinical Communication Virtual Review in [place], [place] [address] [place] [address] 12/12/2023 11:00 AM CDT Lab Department of Laboratory Medicine and Pathology, [facility], in [place], [place] [address] [place] [phone] Remigio Frey M.D., Ph.D. [address] [place] [phone] 12/12/2023 1:00 PM CDT Office Visit Department of Oncology in [place], [place] [address] [place] [phone] Mc Mcknight M.D., Ph.D. [address] [place] [phone] 12/12/2023 3:00 PM CDT Infusion Department of Oncology in [place], [place] [address] [place] [phone] Remigio Frey M.D., Ph.D. [address] [place] [phone] 01/17/2024 9:00 AM CUSTOMER SERVICE VOICE Clinical Communication Virtual Review in [place], [place] [address] [place] [address] 01/19/2024 2:30 PM CUSTOMER SERVICE VOICE Comprehensive Visit Department of Neurology in [place], [place] [address] [place] [address] Kory Alas M.B., Ch.B. [address] [place] [address] Scheduled Referrals Name Type Priority Associated Diagnoses Orde r Schedule Oncology office visit (clinic) Outpatient Referral Routine Expected: 07/14/2023, Expires: 10/13/2024 documented as of this encounter Results * CT Neuro Head [...] biopsy. 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
== END 2023-10-16 07:40 | disposition home or self-care (01) ==
LOC: NFLDREF 10-20 00:39
PROVIDERS: PCP Family Medicine; Referring Provider Family Medicine; Visit Provider Family Medicine
DX: E78.5 Hyperlipidemia, unspecified (principal); G60.9 Hereditary and idiopathic neuropathy, unspecified; M81.0 Age-related osteoporosis without current pathological fracture; E03.9 Hypothyroidism, unspecified; E55.9 Vitamin D deficiency, unspecified; E04.1 Nontoxic single thyroid nodule
CPT/HCPCS: 80053; 80061; 82306; 84443

== ENCOUNTER 2023-10-25 16:12 | Outpatient (CLI) | payer MEDICARE, OTHER, SELFPAY ==
--- NOTE | 2023-10-25 16:00 | CRLHL7_ITS ---
For Patients: As a result of the Century Cures Act, medical imaging exams and procedure reports are released immediately into your electronic medical record. You may view this report before your referring provider. If you have questions, please contact your health care provider. Indication: Eval for Qiu`s and exclude DVT Technique: Right lower extremity venous ultrasound utilizing grayscale, color flow and duplex Doppler techniques Comparison: None Findings: Sonographic evaluation of the right lower extremity venous system from the common femoral, partially visualized greater saphenous, through the femoral, popliteal and calf veins demonstrates no echogenic debris, normal compressibility, normal color flow and normal augmented duplex Doppler waveforms. Popliteal cyst measures 4.2 x 2.4 x 3.4 centimeters. Impression: No right lower extremity DVT. Popliteal cyst as above. Dictated by Wil Chaves MD @ 10/25/2023 5:03:24 PM (Electronically Signed)
--- OUTSIDE RECORDS SUMMARY | 2023-10-25 16:15 | XMS_ITS | Clinical Summary ---
Author Organization [facility] Address [address] [place] [address] Care Team Providers Care Supervisor Felting Name Role Phone Elsewhere, Pcp Primary Care Provider Unavailabl e Source Comments Patient records contain information from all sites at [facility]. For routine questions regarding patient records, call [phone] during business hours, M-F 8:00 AM - 5:00 PM Central Time. 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 Squamous Cell Carcinoma Of Skin Of Scalp And Neck (Primary Dx) 10/11/2023 2:00 PM CDT Infusion Department of Oncology in [address] [phone] Blanche Monzon P.A.-C., M.S. Malignant Neoplasm Of Neck Squamous Cell (Primary Dx); Other Senior Living Current 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; Secondary Malignant Neoplasm Bone (HCC); Squamous Cell Carcinoma Of Skin Of Scalp And Neck 10/11/2023 1:00 PM CDT Office Visit Department of Oncology in [address] [phone] Remigio Frey M.D., Ph.D. Squamous Cell Carcinoma Of Skin Of Scalp And Neck (Primary Dx); Other Senior Living Current 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; Secondary Malignant Neoplasm Bone (HCC) 10/11/2023 7:41 AM CDT - 10/11/2023 3:29 PM CDT Hospital Encounter Department of Radiology, [facility] in [address] [phone] Blanche Monzon P.A.-C., M.S. Squamous Cell Carcinoma Of Skin Of Scalp And Neck; Secondary Malignant Neoplasm Bone (HCC); Other Senior Living Current 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 Discharge Disposition: Home or Self Care 10/11/2023 6:45 AM CDT - 10/11/2023 7:40 AM CDT Hospital Encounter Department of Radiology, [facility] in [place], [place] [address] [place] [phone] Blanche Monzon P.A.-C., M.S. Squamous Cell Carcinoma Of Skin Of Scalp And Neck; Secondary Malignant Neoplasm Bone (HCC); Other Senior Living Current 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 Discharge Disposition: Home or Self Care 10/09/2023 10:45 AM CDT Clinical Communication Virtual Review in [address] [phone] Blood Pressure 09/19/2023 2:00 PM CDT Infusion Department of Oncology in [place], [place] [address] [place] [phone] Blanche Monzon P.A.-C., M.S. Malignant Neoplasm Of Neck Squamous Cell (Primary Dx); Secondary Malignant Neoplasm Bone (HCC); Squamous Cell Carcinoma Of Skin Of Scalp And Neck; Other Senior Living Current 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 09/19/2023 1:00 PM CDT Office Visit Department of Oncology in [place], [place] [address] [place] [phone] Blanche Monzon P.A.-C., M.S. Squamous Cell Carcinoma Of Skin Of Scalp And Neck (Primary Dx); Secondary Malignant Neoplasm Bone (HCC); Other Senior Living Current 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 08/29/2023 2:30 PM CDT Infusion Department of Oncology in [place], [place] [address] [place] [phone] Blanche Monzon P.A.-C., M.S. Malignant Neoplasm Of Neck Squamous Cell (Primary Dx); Secondary Malignant Neoplasm Bone (HCC); Squamous Cell Carcinoma Of Skin Of Scalp And Neck; Other Herpetologist Current 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 08/29/2023 1:40 PM CDT Office Visit Department of Oncology in [place], [place] [address] [place] [phone] Farnaz Mccarty APRN, C.N.P. Secondary Malignant Neoplasm Bone (HCC); Squamous Cell Carcinoma Of Skin Of Scalp And Neck; Other Herpetologist Current 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 08/28/2023 10:00 AM CDT Clinical Communication Virtual Review in [place], [place] 200 [place] [address] 08/28/2023 Orders Only Department of Radiation Oncology in [place], [place] [address] [place] [phone] Tammie Hooks M.D., Ph.D. 08/16/2023 Refill Department of Radiation Oncology in [place], [place] [address] [place] [phone] Tammie Hooks M.D., Ph.D. Med Refill 08/16/2023 Clinical Communication Department of Oncology in [place], [place] [address] [place] [phone] Tammie Adams R.N., O.C.N. Sx- foot vibration 08/08/2023 3:30 PM CDT Infusion Department of Oncology in [place], [place] [address] [place] [phone] Blanche Monzon P.A.-C., M.S. Other Herpetologist Current 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 (Primary Dx); Secondary Malignant Neoplasm Bone (HCC); Squamous Cell Carcinoma Of Skin Of Scalp And Neck; Malignant Neoplasm Of Neck Squamous Cell 08/08/2023 2:40 PM CDT Education Department of Oncology in [place], [place] [address] [place] [phone] Blanche Monzon P.A.-C., M.S. Janette Arango R.Iggy. Secondary Malignant Neoplasm Bone (HCC); Squamous Cell Carcinoma Of Skin Of Scalp And Neck; Other Senior Living Current 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 08/08/2023 1:40 PM CDT Office Visit Department of Oncology in [place], [place] [address] [place] [phone] Blanche Monzon P.A.-C., M.S. Secondary Malignant Neoplasm Bone (HCC); Squamous Cell Carcinoma Of Skin Of Scalp And Neck; Other Senior Living Current 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 08/03/2023 12:36 PM CDT - 08/03/2023 3:18 PM CDT Hospital Encounter Department of Radiation Oncology in [place], [place] [address] [place] [phone] Tammie Hooks M.D., Ph.D. Secondary Malignant Neoplasm Bone (HCC) (Primary Dx); Malignant Neoplasm Of Neck Squamous Cell 07/28/2023 9:20 AM CDT Telemedicine Department of Oncology in [place], [place] [address] [place] [phone] Blanche Monzon P.A.-C., M.S. Squamous Cell Carcinoma Of Skin Of Scalp And Neck (Primary Dx); Secondary Malignant Neoplasm Bone (HCC); Other Herpetologist Current 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; Psoriasis 07/27/2023 12:04 PM CDT - 07/27/2023 11:59 PM CDT Hospital Encounter Department of Radiology, [facility] in [place], [place] [address] [place] [address] Woody Navarro M.D. Squamous Cell Carcinoma Of [...] any clubs o r organizations such as zoroastrianism groups, unions, fraternal or athletic groups, or [...] 09/02/2022 [facility] of Occupat ional [facility] - Occupational Stress Questionnaire Answer [...] living situation today? I have a [facility] place to live 02/16/2023 Education Answer Date Recorded What is the highest level of school you have completed or the highest degree you have received? Bachelor's degree (e.g., BA, AB, BS) 01/24/2022 Sex and Gender Information Value Date Recorded Sex Assigned at Female 01/24/2022 7:37 PM BATCHMAKER Gender Identity Female 01/24/2022 7:37 PM BATCHMAKER Sexual Orientation Straight 01/24/2022 7: 37 PM BATCHMAKER Last Filed Vital Signs Vital Sign Reading [...] AM CDT Clinical Communication Virtual Review in [place], [place] 200 [place] [address] 11/01/2023 11:40 AM CDT Lab Department of Laboratory Medicine and Pathology, [facility], in [place], [place] [address] [place] [phone] Remigio Frey M.D., Ph.D. [address] [place] [phone] 11/01/2023 1:40 PM CDT Office Visit Department of Oncology in [place], [place] [address] [place] [phone] Blanche Monzon P.A.-C., M.S. [address] [place] [phone] 11/01/2023 2:45 PM CDT Infusion Department of Oncology in [address] [phone] Remigio Frey M.D., Ph.D. [address] [place] [phone] 11/08/2023 9:45 AM CDT Clinical Communication Virtual Review in [address] [phone] 11/10/2023 8:00 AM CDT Office Visit Department of Dermatology in [address] [phone] Emily Bell M.D. [address] [place] [phone] 11/17/2023 11:00 AM CDT Clinical Communication Virtual Review in [address] [phone] 11/21/2023 11:10 AM CDT Lab Department of Laboratory Medicine and Pathology, [facility], in [address] [phone] Remigio Frey M.D., Ph.D. [address] [place] [phone] 11/21/2023 1:00 PM CDT Office Visit Department of Oncology in [address] [phone] Mc Mcknight M.D., Ph.D. [address] [place] [phone] 11/21/2023 2:15 PM CDT Infusion Department of Oncology in [place], [place] [address] [place] [phone] Remigio Frey M.D., Ph.D. [address] [place] [phone] 12/11/2023 1:45 PM CDT Clinical Communication Virtual Review in [place], [place] 200 [place] [address] 12/12/2023 11:00 AM CDT Lab Department of Laboratory Medicine and Pathology, [facility] in [address] [address] Remigio Frey M.D., Ph.D. [address] [place] [phone] 12/12/2023 1:00 PM CDT Office Visit Department of Oncology in [address] [phone] Mc Mcknight M.D., Ph.D. [address] [place] [phone] 12/12/2023 3:00 PM CDT Infusion Department of Oncology in [place], [place] [address] [place] [phone] Remigio Frey M.D., Ph.D. [address] [place] [phone] 01/11/2024 2:00 PM BATCHMAKER Appointment Department of Radiation Oncology in [address] [phone] Tammie Hooks M.D., Ph.D. [address] [place] [phone] 01/17/2024 9:00 AM BATCHMAKER Clinical Communication Virtual Review in [place], [place] 200 [place] [phone] 01/19/2024 2:30 PM BATCHMAKER Comprehensive Visit Department of Neurology in [place], [place] [address] [place] [phone] Kory Alas M.B., Ch.B. [address] [place] [phone] Health Maintenance Due Date Last Done Comments [...] this topic Medical Devices Implanted Type Area Control Panel Assembler Device Identifier Shelf Expiration Date Model / [...] (HCC) Other Senior Living Current 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 CT ABDOMEN PELVIS WITH IV CONTRAST RAD - Routine (most inpatients and all outpatients) 10/11/2023 7:40 AM CDT Squamous Cell Carcinoma Of Skin Of Scalp And Neck Secondary Malignant Neoplasm Bone (HCC) Other Senior Living Current 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 CT CHEST WITH IV CONTRAST RAD - Routine (most inpatients and all outpatients) 10/11/2023 7:40 AM CDT Squamous Cell Carcinoma Of Skin Of Scalp And Neck Secondary Malignant Neoplasm Bone (HCC) Other Senior Living Current 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 CT NECK SOFT TISSUE WITH IV CONTRAST RAD - Routine (most inpatients and all outpatients) 10/11/2023 7:40 AM CDT Squamous Cell Carcinoma Of Skin Of Scalp And Neck Secondary Malignant Neoplasm Bone (HCC) Other Herpetologist Current 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 THYROID FUNCTION CASCADE, S Routine 10/11/2023 6:41 AM CDT Other Herpetologist Current 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 BILIRUBIN DIRECT, S/P Routine 10/11/2023 6:41 AM CDT Other Herpetologist Current 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 COMPREHENSIVE METABOLIC PANEL, S/P Routine 10/11/2023 6:41 AM CDT Other Senior Living Current 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 CBC WITH DIFFERENTIAL, B Routine 10/11/2023 6:41 AM CDT Other Herpetologist Current 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 THYROID FUNCTION CASCADE, S Routine 09/19/2023 10:57 AM CDT 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 Other Senior Living Current 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 BILIRUBIN DIRECT, S/P Routine 09/19/2023 10:57 AM CDT 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 Other Senior Living Current 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 COMPREHENSIVE METABOLIC PANEL, S/P Routine 09/19/2023 10:57 AM CDT 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 Other Herpetologist Current 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 CBC WITH DIFFERENTIAL, B Routine 09/19/2023 10:57 AM CDT 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 Other Herpetologist Current 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 THYROID FUNCTION CASCADE, S Routine 08/29/2023 11:30 AM CDT 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 Other Herpetologist Current 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 BILIRUBIN DIRECT, S/P Routine 08/29/2023 11:30 AM CDT 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 Other Herpetologist Current 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 COMPREHENSIVE METABOLIC PANEL, S/P Routine 08/29/2023 11:30 AM CDT 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 Other Senior Living Current 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 CBC WITH DIFFERENTIAL, B Routine 08/29/2023 11:30 AM CDT 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 Other Herpetologist Current 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 THYROID FUNCTION CASCADE, S Routine 08/08/2023 11:12 AM CDT 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 Other Senior Living Current 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 BILIRUBIN DIRECT, S/P Routine 08/08/2023 11:12 AM CDT 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 Other Herpetologist Current 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 COMPREHENSIVE METABOLIC PANEL, S/P Routine 08/08/2023 11:12 AM CDT 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 Other Senior Living Current 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 CBC WITH DIFFERENTIAL, B Routine 08/08/2023 11:12 AM CDT 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 Other Senior Living Current 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 MR BRAIN WITHOUT AND WITH IV CONTRAST RAD - Routine (most inpatients and all outpatients) 07/27/2023 1:11 PM CDT Squamous Cell Carcinoma Of Skin Of Scalp And Neck Malignant Neoplasm Of Neck Squamous Cell Lesion Skull from Last 3 Months Results * MR [...] Suggest correlation with direct visualization. Blanche Monzon P.A.-C. M.S. [facility] [place] PROCEDURES * CT Abdomen Pelvis with [...] suggestive of interstitial lung disease. Blanche Monzon P.A.-C. M.S. IMG CT P ROCEDURES * CT Neck Soft Tissue with IV Contrast (10/11/2023 7:40 AM CDT) Anatomical Region Laterality Modality Neck, Neuroradiology RST [facility] , Neuroradiology ARZ [facility], Neuroradiology FLA [facility] N/A Computed Tomography, Compute d Tomography [...] IMG CT P ROCEDURES * Thyroid Function [place] (10/11/2023 6:41 AM CDT) Only the most recent of4 resultswithin the time period is included. [facility] TSH, Sensitive 3.9 0.3 - 4.2 mIU/L 10/11/2023 7:51 AM CDT DTL Blood (Blood, Venous) 10/11/2023 6:41 AM CDT 10/11/2023 7:20 AM CDT Blanche Monzon P.A.-C. [place] LAB BLOO D ADD-ON [facility] [address] [place] [address], [facility] [address] [place] [address] * (ABNORMAL) CBC with Differential, Blood (10/11/2023 6:41 AM CDT) Only the most recent of4 resultswithin the time period is included. [facility] Hemoglobin 13.0 11.6 - 15.0 g/dL 10/11/2023 [...] 10/11/2023 7:05 AM CDT Blanche Monzon P.A.-C. [place]. LAB [facility] [address] [facility] [address] [place] [address] * Bilirubin, Direct (10/11/2023 6:41 AM CDT) Only the most recent of4 resultswithin the time period is included. Bilirubin, Direct, S <0.2 0.0 - 0.3 mg/dL 10/11/2023 7:51 AM CDT DTL Blood (Blood, Venous) 10/11/2023 6:41 AM CDT 10/11/2023 7:20 AM CDT Blanche Monzon P.A.-C. [place] LAB BLOO D [facility]ON [facility] [address] [place] [address] * Comprehensive Metabolic Panel (10/11/2023 6:41 AM CDT) Only the most recent of4 resultswithin the time period is included. Pathologist [facility] Potassium, S 4.0 3.6 - 5.2 mmol/L [...] 10/11/2023 7:20 AM CDT Blanche Monzon P.A.-C. [place] LAB YAMILETH Almanza ADD-ON [facility] [address] [place] [address], [place] DTL [facility] [address] [place] [address] from Last 3 Months Advance Directives For more information, please contact: [phone] Documents on File Type Date Recorded Patient Sausage Inspector Expl anation Advance Directives 02/02/2022 9:49 AM INV ALID * Full Code (Latest Code Status on File) Date Activated Date Inactivated Comments 02/01/2022 8:50 PM 02/02/2022 6:01 PM Question Answer Comments Full Code: Not Discussed Due to: Patient not available Care Teams Supervisor Felting Relationship Specialty Start Date End Date Elsewhere, Pcp PCP - General Family Medicine 02/01/22
--- OUTSIDE RECORDS SUMMARY | 2023-10-25 16:15 | XMS_ITS | Encounter Summary ---
Author Organization [facility] Address [address] [place] [address] Care Team Providers Care Hogshead Mat Assembler Name Role Phone Elsewhere, Pcp Primary Care Provider Unavailabl e Reason for Referral * MRI/CAT/PET Scan (Routine) - Closed Specialty Diagnoses / Procedures Referred By Ryan cronin Referred To Contact Radiology Diagnoses Squamous Cell Carcinoma Of Skin Of Scalp And Neck Lesion Lytic Bone Secondary Malignant Neoplasm Bone (HCC) Other Normalizer Current 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 Procedures MR Brain without and with IV Contrast Blanche Monzon P.A.-C., M.S. [address] [place] [address] [employer] Referral ID Status Reason Start Date Expiration Date Visits Re quested Visits Authorized [id number] Closed 07/28/2023 07/27/2024 1 1 Reason for Visit * MRI/CAT/PET Scan (Routine) - Closed Specialty Diagnoses / Procedures Referred By Ryan cronin Referred To Contact Radiology Diagnoses Squamous Cell Carcinoma Of Skin Of Scalp And Neck Lesion Lytic Bone Secondary Malignant Neoplasm Bone (HCC) Other Normalizer Current 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 Procedures MR Brain without and with IV Contrast Blanche Monzon P.A.-C., M.S. [address] [place] [address] [employer] Referral ID Status Reason Start Date Expiration Date Visits Re quested Visits Authorized [id number] Closed 07/28/2023 07/27/2024 1 1 Encounter Details Date Type Department Care Team (Latest Contact Info) Description 10/11/2023 7:41 AM CDT - 10/11/2023 3:29 PM CDT Hospital Encounter Department of Radiology, [place], [place] [address] [place] [address] Blanche Monzon P.A.-C., M.S. [address] [place] [address] Squamous Cell Carcinoma Of Skin Of Scalp And Neck; Secondary Malignant Neoplasm Bone (HCC); Other Half-Way Current 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 Discharge Disposition: Home or [...] at all 09/02/2022 [facility] - Occupational Stress Questionnaire Answer Date [...] your living situation today? I have a [facility] place to live 02/16/2023 Education Answer Date Recorded What is the highest level of school you have completed or the highest degree you have received? Bachelor's degree (e.g., BA, AB, BS) 01/24/2022 Sex and Gender Information Value Date Recorded Sex Assigned at Female 01/24/2022 7:37 PM FLOORWORKER DISTRIBUTOR Gender Identity Female 01/24/2022 7:37 PM FLOORWORKER DISTRIBUTOR Sexual Orientation Straight 01/24/2022 7: 37 PM FLOORWORKER DISTRIBUTOR documented as of this encounter Medications at [...] AM CDT Clinical Communication Virtual Review in [address] [phone] 11/01/2023 11:40 AM CDT Lab Department of Laboratory Medicine and Pathology, [facility] in [address] [phone] Remigio Frey M.D., Ph.D. [address] [place] [phone] 11/01/2023 1:40 PM CDT Office Visit Department of Oncology in [address] [phone] Blanche Monzon P.A.Wilbert., M.S. [address] [place] [phone] 11/01/2023 2:45 PM CDT Infusion Department of Oncology in [address] [phone] Remigio Frey M.D., Ph.D. [address] [place] [phone] 11/08/2023 9:45 AM CDT Clinical Communication Virtual Review in [address] [phone] 11/10/2023 8:00 AM CDT Office Visit Department of Dermatology in [address] [phone] Emily Bell M.D. [address] [place] [phone] 11/17/2023 11:00 AM CDT Clinical Communication Virtual Review in [address] [phone] 11/21/2023 11:10 AM CDT Lab Department of Laboratory Medicine and Pathology, [facility], in [place], [place] [address] [place] [phone] Remigio Frey M.D., Ph.D. [address] [place] [phone] 11/21/2023 1:00 PM CDT Office Visit Department of Oncology in [address] [phone] Mc Mcknight M.D., Ph.D. [address] [place] [phone] 11/21/2023 2:15 PM CDT Infusion Department of Oncology in [place], [place] [address] [place] [phone] Remigio Frey M.D., Ph.D. [address] [place] [phone] 12/11/2023 1:45 PM CDT Clinical Communication Virtual Review in [address] [phone] 12/12/2023 11:00 AM CDT Lab Department of Laboratory Medicine and Pathology, [facility], in [address] [phone] Remigio Frey M.D., Ph.D. [address] [place] [phone] 12/12/2023 1:00 PM CDT Office Visit Department of Oncology in [address] [phone] Mc Mcknight M.D., Ph.D. [address] [place] [phone] 12/12/2023 3:00 PM CDT Infusion Department of Oncology in [address] [phone] Remigio Frey M.D., Ph.D. [address] [place] [phone] 01/11/2024 2:00 PM FLOORWORKER DISTRIBUTOR Appointment Department of Radiation Oncology in [address] [phone] Tammie Hooks M.D., Ph.D. [address] [place] [phone] 01/17/2024 9:00 AM FLOORWORKER DISTRIBUTOR Clinical Communication Virtual Review in [address] [phone] 01/19/2024 2:30 PM FLOORWORKER DISTRIBUTOR Comprehensive Visit Department of Neurology in [address] [phone] Kory Alas M.B., Ch.B. [address] [place] [phone] documented as of this encounter Procedures Procedure Name Priority Date/Time Associated Diagnosis Comments MR BRAIN WITHOUT AND WITH IV CONTRAST RAD - Routine (most inpatients and all outpatients) 10/11/2023 8:50 AM CDT Squamous Cell Carcinoma Of Skin Of Scalp And Neck Secondary Malignant Neoplasm Bone (HCC) Other Normalizer Current 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 documented in this encounter Results * MR Brain without and with IV Contrast (10/11/2023 8:50 AM CDT) Anatomical Region Laterality Modality Head, Brain, Neuroradiology [facility], [facility]iology [facility], Neuroradiology [facility] N/A Magnetic Resonance Impressions 10/11/2023 10:22 AM [...] with direct visualization. Blanche Monzon P.A.-C. M.S. [facility] MRI PROCEDURES documented in this encounter Visit Diagnoses Diagnosis Squamous Cell Carcinoma Of Skin Of Scalp And Neck Secondary Malignant Neoplasm Bone (HCC) Other Half-Way Current 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 Malignant Neoplasm Of Neck Squamous Cell- Primary Secondary Malignant Neoplasm Bone (HCC) Other Normalizer Current 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 documented in this encounter [...] mL documented in this encounter Care Teams Hogshead Mat Assembler Relationship Specialty Start Date End Date Elsewhere, Pcp PCP - General Family Medicine 02/01/22 documented as of this encounter
--- OUTSIDE RECORDS SUMMARY | 2023-10-25 16:15 | XMS_ITS ---
Author Organization 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 Linked Problems Other Tank Terminal Gauger Current Drug TherapySecondary Malignant Neoplasm Bone (HCC)Squamous [...] Treated Prescribed Fraction Dose Prescribed Total Dose [id number] 04/29/2022 39 30 of 30 220 cGy 6,600 cGy [id number] 04/29/2022 39 30 of 30 200 cGy 6,000 cGy Reference Point Last Treated On Elapsed Days Session Dose Total Dose [id number] 04/29/2022 39 200 cGy 6,000 cGy [id number] 04/29/2022 39 220 cGy 6,600 cGy
--- OUTSIDE RECORDS SUMMARY | 2023-10-25 16:15 | XMS_ITS | Encounter Summary ---
Author Organization [facility] Address [address] [place] [address] Care Team Providers Care Park Police Name Role Phone Elsewhere, Pcp Primary Care Provider Unavailabl e Reason for Referral * Outpatient (Routine) Specialty Diagnoses / Procedures Referred By Contac t Referred To Contact Oncology Remigio Frey M.D., Ph.D. [address] [place] [phone] Mc Mcknight M.D., Ph.D. [address] [place] [phone] Referral ID Status Reason Start Date Expiration Date Visits Re quested Visits Authorized * Outpatient (Routine) Specialty Diagnoses / Procedures Referred By Contac t Referred To Contact Oncology Remigio Frey M.D., Ph.D. [address] [place] [phone] cM Mcknight M.D., Ph.D. [address] [place] [phone] Referral ID Status Reason Start Date Expiration Date Visits Re quested Visits Authorized * Outpatient (Routine) Specialty Diagnoses / Procedures Referred By Ryan cronin Referred To Contact Oncology Remigio Frey M.D., Ph.D. [address] [place] [phone] Mc Mcknight M.D., Ph.D. [address] [place] [phone] Referral ID Status Reason Start Date Expiration Date Visits Re quested Visits Authorized Reason for Visit * Episode Based Medications (Routine) - Authorized Specialty Diagnoses / Procedures Referred By Ryan t Referred To Contact Diagnoses Other Embryology Teacher Current Drug Therapy 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 Blanche Monzon P.A.-C., M.S. [address] [place] [phone] [facility] [address] [place] [phone] Referral ID Status Reason Start Date Expiration Date V isits Requested Visits Authorized [id number] Authorized 07/28/2023 07/27/2025 99 99 Encounter Details Date Type Department Care Team (Late st Contact Info) Description 10/11/2023 1:00 PM CDT Office Visit Department of Oncology in [place], [place] [address] [place] [phone] Remigio Frey M.D., Ph.D. [address] [place] [phone] Squamous Cell Carcinoma Of Skin Of Scalp And Neck (Primary Dx); Other Senior Care Current Drug Therapy; Secondary Malignant Neoplasm Bone [...] any clubs o r organizations such as jew groups, unions, fraternal or athletic groups, or [...] hard at all 09/02/2022 [facility] of Occupat ional Health - Occupational Stress [...] your living situation today? I have a [facility] place to live 02/16/2023 Education Answer Date Recorded What is the highest level of school you have completed or the highest degree you have received? Bachelor's degree (e.g., BA, AB, BS) 01/24/2022 Sex and Gender Information Value Date Recorded Sex Assigned at Female 01/24/2022 7:37 PM CUSTOMER OPERATIONS INTERN Gender Identity Female 01/24/2022 7:37 PM CUSTOMER OPERATIONS INTERN Sexual Orientation Straight 01/24/2022 7: 37 PM CUSTOMER OPERATIONS INTERN documented as of this encounter Last [...] the vertex of the scalp. Evaluated by voice engineer Dr. Banuelos in [place] and was treated for possible psoriasis. The lesion persisted after 6 weeks. She was then treated with UV phototherapy between September and December of 2021. September 22, 2021---December 17, 2021: Underwent biopsy of the vertex scalp lesion which revealed squamous cell carcinoma. Incisional biopsy of left level 5 lymph node also revealed squamous cell carcinoma. 12/30/2021 Biopsy/Pathology A. Skin, scalp, vertex, excisional biopsy ([id number] B; 12/30/2021): Invasive poorly differentiated squamous cell carcinoma, transected at base and lateral edge of the specimen. B. Neck, left, soft tissue, biopsy ([id number]; 01/13/2022): Invasive poorly differentiated squamous cell carcinoma [...] AM CDT Clinical Communication Virtual Review in [address] [phone] 11/01/2023 11:40 AM CDT Lab Department of Laboratory Medicine and Pathology, [facility], in [address] [phone] Remigio Frey M.D., Ph.D. [address] [place] [phone] 11/01/2023 1:40 PM CDT Office Visit Department of Oncology in [address] [phone] Blanche Monzon P.A.-C., M.S. [address] [place] [phone] 11/01/2023 2:45 PM CDT Infusion Department of Oncology in [address] [phone] Remigio Frey M.D., Ph.D. [address] [place] [phone] 11/08/2023 9:45 AM CDT Clinical Communication Virtual Review in [address] [phone] 11/10/2023 8:00 AM CDT Office Visit Department of Dermatology in [address] [phone] Emily Bell M.D. [address] [place] [phone] 11/17/2023 11:00 AM CDT Clinical Communication Virtual Review in [address] [phone] 11/21/2023 11:10 AM CDT Lab Department of Laboratory Medicine and Pathology, [facility], in [place], [place] [address] [place] [phone] Remigio Frey M.D., Ph.D. [address] [place] [phone] 11/21/2023 1:00 PM CDT Office Visit Department of Oncology in [place], [place] [address] [place] [phone] Mc Mcknight M.D., Ph.D. [address] [place] [phone] 11/21/2023 2:15 PM CDT Infusion Department of Oncology in [place], [place] [address] [place] [phone] Remigio Frey M.D., Ph.D. [address] [place] [phone] 12/11/2023 1:45 PM CDT Clinical Communication Virtual Review in [address] [phone] 12/12/2023 11:00 AM CDT Lab Department of Laboratory Medicine and Pathology, [facility], in [place], [place] [address] [place] [phone] Remigio Frey M.D., Ph.D. [address] [place] [phone] 12/12/2023 1:00 PM CDT Office Visit Department of Oncology in [address] [phone] Mc Mcknight M.D., Ph.D. [address] [place] [phone] 12/12/2023 3:00 PM CDT Infusion Department of Oncology in [place], [place] [address] [place] [phone] Remigio Frey M.D., Ph.D. [address] [place] [phone] 01/11/2024 2:00 PM CUSTOMER OPERATIONS INTERN Appointment Department of Radiation Oncology in [place], [place] [address] [place] [phone] Tammie Hooks M.D., Ph.D. [address] [place] [phone] 01/17/2024 9:00 AM CUSTOMER OPERATIONS INTERN Clinical Communication Virtual Review in [address] [phone] 01/19/2024 2:30 PM CUSTOMER OPERATIONS INTERN Comprehensive Visit Department of Neurology in [address] [phone] Kory Alas M.B., Ch.B. [address] [place] [phone] Scheduled Orders Name Type Priority Associated Diagnoses Orde r Schedule CBC with Differential, Blood Lab Routine Other Senior Care Current Drug Therapy 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 Expected: 10/31/2023, Expires: 10/30/2026 Comprehensive Metabolic Panel Lab Routine Other Embryology Teacher Current Drug Therapy 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 Expected: 10/31/2023, Expires: 10/30/2024 Bilirubin, Direct Lab Routine Other Embryology Teacher Current Drug Therapy 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 Expected: 10/31/2023, Expires: 10/30/2024 Thyroid Function [facility] Routine Other Senior Care Current Drug Therapy 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 Expected: 10/31/2023, Expires: 10/30/2024 CBC with Differential, Blood Lab Routine Other Senior Care Current Drug Therapy 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 Expected: 11/21/2023, Expires: 11/20/2026 Comprehensive Metabolic Panel Lab Routine Other Embryology Teacher Current Drug Therapy 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 Expected: 11/21/2023, Expires: 11/20/2024 Bilirubin, Direct Lab Routine Other Senior Care Current Drug Therapy 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 Expected: 11/21/2023, Expires: 11/20/2024 Thyroid Function [facility] Routine Other Embryology Teacher Current Drug Therapy 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 Expected: 11/21/2023, Expires: 11/20/2024 CBC with Differential, Blood Lab Routine Other Senior Care Current Drug Therapy 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 Expected: 12/12/2023, Expires: 12/11/2026 Comprehensive Metabolic Panel Lab Routine Other Senior Care Current Drug Therapy 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 Expected: 12/12/2023, Expires: 12/11/2024 Bilirubin, Direct Lab Routine Other Senior Care Current Drug Therapy 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 Expected: 12/12/2023, Expires: 12/11/2024 Thyroid Function [facility] Routine Other Embryology Teacher Current Drug Therapy 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 Expected: 12/12/2023, Expires: 12/11/2024 Scheduled Referrals Name Type Priority Associated Diagnoses Orde r Schedule Oncology office visit (clinic) Outpatient Referral Routine Other Embryology Teacher Current Drug Therapy 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 Expected: 10/31/2023, Expires: 10/30/2024 Oncology office visit (clinic) Outpatient Referral Routine Other Embryology Teacher Current Drug Therapy 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 Expected: 11/21/2023, Expires: 11/20/2024 Oncology office visit (clinic) Outpatient Referral Routine Other Embryology Teacher Current Drug Therapy 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 Expected: 12/12/2023, Expires: 12/11/2024 documented as of this encounter Visit Diagnoses Diagnosis Squamous Cell Carcinoma Of Skin Of Scalp And Neck- Primary Other Embryology Teacher Current Drug Therapy Secondary Malignant Neoplasm Bone (HCC) Malignant Neoplasm Of Neck Squamous Cell- Primary Secondary Malignant Neoplasm Bone (HCC) Other Senior Care Current Drug Therapy documented in this encounter Care Teams [employer] Relationship Specialty Start Date End Date Elsewhere, Pcp PCP - General Family Medicine 02/01/22 documented as of this encounter
--- OUTSIDE RECORDS SUMMARY | 2023-10-25 16:15 | XMS_ITS | Encounter Summary ---
Author Organization [facility] Address [address] [place] [address] Care Team Providers Care Navy Material Inspector Name Role Phone Elsewhere, Pcp Primary Care Provider Unavailabl e Reason for Referral * Outpatient (Routine) - Authorized Specialty Diagnoses / Procedures Referred By Contac t Referred To Contact Radiation Oncology Tammie Hooks M.D., Ph.D. [address] [place] [phone] [facility] Referral ID Status Reason Start Date Expiration Date V isits Requested Visits Authorized [id number] Authorized 10/11/2023 04/11/2025 1 1 Scheduling Instructions With scans * Outpatient (Routine) - Authorized Specialty Diagnoses / Procedures Referred By Contac t Referred To Contact Neurology Diagnoses Squamous Cell Carcinoma Of Skin Of Scalp And Neck Tammie Hooks M.D., Ph.D. [address] [place] [phone] [facility] Referral ID Status Reason Start Date Expiration Date V isits Requested Visits Authorized [id number] Authorized 10/11/2023 04/11/2025 1 1 * Outpatient (Routine) - Closed Specialty Diagnoses / Procedures Referred By Ryan cronin Referred To Contact Radiation Oncology Tammie Hooks M.D., Ph.D. [address] [place] [phone] [facility] Referral ID Status Reason Start Date Expiration Date Visits Re quested Visits Authorized [id number] Closed 08/28/2023 02/26/2025 1 1 Reason for Visit * Outpatient (Routine) - Closed Specialty Diagnoses / Procedures Referred By Ryan cronin Referred To Contact Radiation Oncology Tammie Hooks M.D., Ph.D. [address] [place] [phone] [facility] Referral ID Status Reason Start Date Expiration Date Visits Re quested Visits Authorized [id number] Closed 08/28/2023 02/26/2025 1 1 Encounter Details Date Type Department Care Team (Latest Contact Info) Description 10/11/2023 3:30 PM CDT - 10/12/2023 10:05 AM CDT Hospital Encounter Department of Radiation Oncology in [place], [place] [address] [place] [phone] Tammie Hooks M.D., Ph.D. [address] [place] [phone] Squamous Cell Carcinoma Of Skin Of Scalp [...] your living situation today? I have a [facility] place to live 02/16/2023 Education Answer Date Recorded What is the highest level of school you have completed or the highest degree you have received? Bachelor's degree (e.g., BA, AB, BS) 01/24/2022 Sex and Gender Information Value Date Recorded Sex Assigned at Female 01/24/2022 7:37 PM HUMAN FACTORS ERGONOMIST Gender Identity Female 01/24/2022 7:37 PM HUMAN FACTORS ERGONOMIST Sexual Orientation Straight 01/24/2022 7: 37 PM HUMAN FACTORS ERGONOMIST documented as of this encounter Last Filed [...] the vertex of the scalp. Evaluated by supervisor machining Dr. Banuelos in [place] and was treated for possible psoriasis. The lesion persisted after 6 weeks. She was then treated with UV phototherapy between September and December of 2021. September 22, 2021---December 17, 2021: Underwent biopsy of the vertex scalp lesion which revealed squamous cell carcinoma. Incisional biopsy of left level 5 lymph node also revealed squamous cell carcinoma. 12/30/2021 Biopsy/Pathology A. Skin, scalp, vertex, excisional biopsy ([id number] and B; 12/30/2021): Invasive poorly differentiated squamous cell carcinoma, transected at base and lateral edge of the specimen. B. Neck, left, soft tissue, biopsy ([id number]; 01/13/2022): Invasive poorly differentiated squamous cell carcinoma [...] 78 year old female with hx of [id number] SqCC of the scalp vertex, 3.5 cmprimary, [...] Physician Radiation Oncology 10/11/23 8:23 PM CDT Percussion Welding Machine Operator Service: Dr. Tammie Hooks MD, PhD Associated [...] also met with the patient for a veyn-vj-lzuw encounter to verify the history, discuss patient expectation and preference, and provide recommendations which are in agreement with those outlined by Dr. Ty Palma in the encounter of thisdate. 78 year old female with hx of [id number] SqCC of the scalp vertex, 3.5 cm [...] of the patient today. Time includes both fap-yedw-lt-face edkekli-wd-ytar patient care. Tammie Hooks MD PhD Service Correspondent Percussion Welding Machine Operator Radiation Oncology 10/12/23 10:00 AM CDT Pager: [phone] documented in this encounter Plan of Treatment Upcoming Encounters Date Type Department Care Team (Late st Contact Info) Description 10/30/2023 11:00 AM CDT Clinical Communication Virtual Review in [place], [place] 200 [place] [address] 11/01/2023 11:40 AM CDT Lab Department of Laboratory Medicine and Pathology, [facility], in [address] [phone] Remigio Frey M.D., Ph.D. [address] [place] [phone] 11/01/2023 1:40 PM CDT Office Visit Department of Oncology in [place], [place] [address] [place] [phone] Blanche Monzon P.A.-C., M.S. [address] [place] [phone] 11/01/2023 2:45 PM CDT Infusion Department of Oncology in [place], [place] [address] [place] [phone] Remigio Frey M.D., Ph.D. [address] [place] [phone] 11/08/2023 9:45 AM CDT Clinical Communication Virtual Review in [address] [phone] 11/10/2023 8:00 AM CDT Office Visit Department of Dermatology in [address] [phone] Emily Bell M.D. [address] [place] [phone] 11/17/2023 11:00 AM CDT Clinical Communication Virtual Review in [address] [phone] 11/21/2023 11:10 AM CDT Lab Department of Laboratory Medicine and Pathology, [facility], in [address] [phone] Remigio Frey M.D., Ph.D. [address] [place] [phone] 11/21/2023 1:00 PM CDT Office Visit Department of Oncology in [address] [phone] Mc Mcknight M.D., Ph.D. [address] [place] [phone] 11/21/2023 2:15 PM CDT Infusion Department of Oncology in [place], [place] [address] [place] [phone] Remigio Fery M.D., Ph.D. [address] [place] [phone] 12/11/2023 1:45 PM CDT Clinical Communication Virtual Review in [place], [place] 200 [place] [address] 12/12/2023 11:00 AM CDT Lab Department of Laboratory Medicine and Pathology, [facility], in [address] [phone] Remigio Frey M.D., Ph.D. [address] [place] [phone] 12/12/2023 1:00 PM CDT Office Visit Department of Oncology in [address] [phone] Mc Mcknight M.D., Ph.D. [address] [place] [phone] 12/12/2023 3:00 PM CDT Infusion Department of Oncology in [address] [phone] Remigio Frey M.D., Ph.D. [address] [place] [phone] 01/11/2024 2:00 PM HUMAN FACTORS ERGONOMIST Appointment Department of Radiation Oncology in [address] [phone] Tammie Hooks M.D., Ph.D. [address] [place] [phone] 01/17/2024 9:00 AM HUMAN FACTORS ERGONOMIST Clinical Communication Virtual Review in [place], [place] [address] [place] [address] 01/19/2024 2:30 PM HUMAN FACTORS ERGONOMIST Comprehensive Visit Department of Neurology in [place], [place] [address] [place] [phone] Kory Alas M.B., Ch.B. [address] [place] [phone] Scheduled Orders Name Type Priority Associated Diagnoses [...] Primary Secondary Malignant Neoplasm Bone (HCC) Other Nursing Home Current Drug Therapy documented in this encounter Care Teams Navy Material Inspector Relationship Specialty Start Date End Date Elsewhere, Pcp PCP - General Family Medicine 02/01/22 documented as of this encounter
--- OUTSIDE RECORDS SUMMARY | 2023-10-25 16:15 | XMS_ITS | Encounter Summary ---
Author Organization [facility] Address [address] [place] [address] Care Team Providers Care Hand Molder And Caster Name Role Phone Elsewhere, Pcp Primary Care Provider Unavailabl e Reason for Referral * MRI/CAT/PET Scan (Routine) - Closed Specialty Diagnoses / Procedures Referred By Ryan cronin Referred To Contact Radiology Diagnoses Squamous Cell Carcinoma Of Skin Of Scalp And Neck Lesion Lytic Bone Secondary Malignant Neoplasm Bone (HCC) Other Environmental Services Project Manager Current Drug Therapy Procedures CT Abdomen Pelvis with IV Contrast Blanche Monzon P.A.-C., M.S. [address] [place] [address] [facility] Referral ID Status Reason Start Date Expiration Date Visits Re quested Visits Authorized [id number] Closed 07/28/2023 07/27/2024 1 1 * MRI/CAT/PET Scan (Routine) - Closed Specialty Diagnoses / Procedures Referred By Ryan cronin Referred To Contact Radiology Diagnoses Squamous Cell Carcinoma Of Skin Of Scalp And Neck Lesion Lytic Bone Secondary Malignant Neoplasm Bone (HCC) Other Environmental Services Project Manager Current Drug Therapy Procedures CT Chest with IV Contrast Blanche Monzon P.A.-C., M.S. [address] [place] [phone] [facility] Referral ID Status Reason Start Date Expiration Date Visits Re quested Visits Authorized [id number] Closed 07/28/2023 07/27/2024 1 1 * MRI/CAT/PET Scan (Routine) - Closed Specialty Diagnoses / Procedures Referred By Contac t Referred To Contact Radiology Diagnoses Squamous Cell Carcinoma Of Skin Of Scalp And Neck Lesion Lytic Bone Secondary Malignant Neoplasm Bone (HCC) Other Skilled Nursing Current Drug Therapy Procedures CT Neck Soft Tissue with IV Contrast Blanche Monzon P.A.-C., M.S. [address] [place] [phone] [facility] Referral ID Status Reason Start Date Expiration Date Visits Re quested Visits Authorized [id number] Closed 07/28/2023 07/27/2024 1 1 Reason for Visit * MRI/CAT/PET Scan (Routine) - Closed Specialty Diagnoses / Procedures Referred By Contac t Referred To Contact Radiology Diagnoses Squamous Cell Carcinoma Of Skin Of Scalp And Neck Lesion Lytic Bone Secondary Malignant Neoplasm Bone (HCC) Other Environmental Services Project Manager Current Drug Therapy Procedures CT Abdomen Pelvis with IV Contrast Blanche Monzon P.A.-C., M.S. [address] [place] [phone] [facility] Referral ID Status Reason Start Date Expiration Date Visits Re quested Visits Authorized [id number] Closed 07/28/2023 07/27/2024 1 1 Encounter Details Date Type Department Care Team (Latest Contact Info) Description 10/11/2023 6:45 AM CDT - 10/11/2023 7:40 AM CDT Hospital Encounter Department of Radiology, [facility], in [place], [place] [address] [place] [phone] Blanche Monzon P.A.-C., M.S. 200 [place] [address] Squamous Cell Carcinoma Of Skin Of Scalp And Neck; Secondary Malignant Neoplasm Bone (HCC); Other Environmental Services Project Manager Current Drug Therapy Discharge Disposition: Home or [...] often do you attend chur ch or confucianist services? Never 01/24/2022 Do you belong to [...] and heating? Not hard at all 09/02/2022 [facility] [place] [facility] Occupat ional [facility] - Occupational Stress [...] Sex Assigned at Female 01/24/2022 7:37 PM FOOD EQUIPMENT SERVICE TECHNICIAN Gender Identity Female 01/24/2022 7:37 PM FOOD EQUIPMENT SERVICE TECHNICIAN Sexual Orientation Straight 01/24/2022 7: 37 PM FOOD EQUIPMENT SERVICE TECHNICIAN documented as of this encounter Medications [...] AM CDT Clinical Communication Virtual Review in [address] [phone] 11/01/2023 11:40 AM CDT Lab Department of Laboratory Medicine and Pathology, [facility], in [address] [phone] Remigio Frey M.D., Ph.D. [address] [place] [phone] 11/01/2023 1:40 PM CDT Office Visit Department of Oncology in [address] [phone] Blanche Monzon P.A.-Nixon., M.S. [address] [place] [phone] 11/01/2023 2:45 PM CDT Infusion Department of Oncology in [address] [phone] Remigio Frey M.D., Ph.D. [address] [place] [phone] 11/08/2023 9:45 AM CDT Clinical Communication Virtual Review in [address] [phone] 11/10/2023 8:00 AM CDT Office Visit Department of Dermatology in [address] [phone] Emily Bell M.D. [address] [place] [phone] 11/17/2023 11:00 AM CDT Clinical Communication Virtual Review in [place], [place] 200 [place] [address] 11/21/2023 11:10 AM CDT Lab Department of Laboratory Medicine and Pathology, [facility], in [place], [place] [address] [place] [phone] Remigio Frey M.D., Ph.D. [address] [place] [phone] 11/21/2023 1:00 PM CDT Office Visit Department of Oncology in [place], [place] [address] [place] [phone] Mc Mcknight M.D., Ph.D. [address] [place] [phone] 11/21/2023 2:15 PM CDT Infusion Department of Oncology in [place], [place] [address] [place] [phone] Remigio Frey M.D., Ph.D. [address] [place] [phone] 12/11/2023 1:45 PM CDT Clinical Communication Virtual Review in [address] [phone] 12/12/2023 11:00 AM CDT Lab Department of Laboratory Medicine and Pathology, [facility], in [place], [place] [address] [place] [phone] Remigio Frey M.D., Ph.D. [address] [place] [phone] 12/12/2023 1:00 PM CDT Office Visit Department of Oncology in [address] [phone] Mc Mcknight M.D., Ph.D. [address] [place] [phone] 12/12/2023 3:00 PM CDT Infusion Department of Oncology in [address] [phone] Remigio Frey M.D., Ph.D. [address] [place] [phone] 01/11/2024 2:00 PM FOOD EQUIPMENT SERVICE TECHNICIAN Appointment Department of Radiation Oncology in [address] [phone] Tammie Hooks M.D., Ph.D. [address] [place] [phone] 01/17/2024 9:00 AM FOOD EQUIPMENT SERVICE TECHNICIAN Clinical Communication Virtual Review in [address] [phone] 01/19/2024 2:30 PM FOOD EQUIPMENT SERVICE TECHNICIAN Comprehensive Visit Department of Neurology in [address] [phone] Kory Alas M.B., Ch.B. [address] [place] [phone] documented as of this encounter Procedures Procedure Name Priority Date/Time Associated Diagnosis Comments CT ABDOMEN PELVIS WITH IV CONTRAST RAD - Routine (most inpatients and all outpatients) 10/11/2023 7:40 AM CDT Squamous Cell Carcinoma Of Skin Of Scalp And Neck Secondary Malignant Neoplasm Bone (HCC) Other Skilled Nursing Current Drug Therapy CT CHEST WITH IV CONTRAST RAD - Routine (most inpatients and all outpatients) 10/11/2023 7:40 AM CDT Squamous Cell Carcinoma Of Skin Of Scalp And Neck Secondary Malignant Neoplasm Bone (HCC) Other Skilled Nursing Current Drug Therapy CT NECK SOFT TISSUE WITH IV CONTRAST RAD - Routine (most inpatients and all outpatients) 10/11/2023 7:40 AM CDT Squamous Cell Carcinoma Of Skin Of Scalp And Neck Secondary Malignant Neoplasm Bone (HCC) Other Skilled [...] in the abdomen or pelvis. Belén Dennis P.A.-C.SNey IMG CT P ROCEDURES * CT Chest [...] Neck Secondary Malignant Neoplasm Bone (HCC) Other Environmental Services Project Manager Current Drug Therapy Malignant Neoplasm Of Neck [...] mL documented in this encounter Care Teams Hand Molder And Caster Relationship Specialty Start Date End Date Elsewhere, Pcp PCP - General Family Medicine 02/01/22 documented as of this encounter
--- OUTSIDE RECORDS SUMMARY | 2023-10-25 16:15 | XMS_ITS | Referral Summary ---
Author Organization [facility] Address [address] [place] [address] Care Team Providers Care Hardware Installer Name Role Phone Elsewhere, Pcp Primary Care Provider Unavailabl e Source Comments Patient records contain information from all sites at [facility]. For routine questions regarding patient records, call [phone] during business hours, M-F 8:00 AM - 5:00 PM Central Time. Record requests for emergency care only can be directed to [phone] at any time.[facility] Encounters Date Type Department Care Team Description 10/11/2023 3:30 PM CDT - 10/12/2023 10:05 AM CDT Hospital Encounter Department of Radiation Oncology in [place], [place] [address] [place] [address] Tammie Hooks M.D., Ph.D. Squamous Cell Carcinoma Of Skin Of Scalp And Neck (Primary Dx) 10/11/2023 7:41 AM CDT - 10/11/2023 3:29 PM CDT Hospital Encounter Department of Radiology, [facility] in [place], [place] [address] [place] [address] Blanche Monzon P.A.-C., M.S. Squamous Cell Carcinoma Of Skin Of Scalp And Neck; Secondary Malignant Neoplasm Bone (HCC); Other Fisher Eel Current Drug Therapy Discharge Disposition: Home or Self Care 10/11/2023 6:45 AM CDT - 10/11/2023 7:40 AM CDT Hospital Encounter Department of Radiology, [facility], in [address] [phone] Blanche Monzon P.A.-C., M.S. Squamous Cell Carcinoma Of Skin Of Scalp And Neck; Secondary Malignant Neoplasm Bone (HCC); Other Fisher Eel Current Drug Therapy Discharge Disposition: Home or Self Care 10/11/2023 2:00 PM CDT Infusion Department of Oncology in [place], [place] [address] [place] [phone] Blanche Monzon P.A.-C., M.S. 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 Squamous Cell Carcinoma Of Skin Of Scalp And Neck (Primary Dx); Other Fpc Current Drug Therapy; Secondary Malignant Neoplasm Bone (HCC) 10/09/2023 10:45 AM CDT Clinical Communication Virtual Review in [place], [place] [address] [place] [address] Blood Pressure 09/19/2023 1:00 PM CDT Office Visit Department of Oncology in [address] [phone] Blanche Monzon P.A.-C., M.S. Squamous Cell Carcinoma Of Skin Of Scalp And Neck (Primary Dx); Secondary Malignant Neoplasm Bone (HCC); Other Fisher Eel Current Drug Therapy 09/19/2023 2:00 PM CDT Infusion Department of Oncology in [address] [phone] Blanche Monzon P.A.-C., M.S. 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 Secondary Malignant Neoplasm Bone (HCC); Squamous Cell Carcinoma Of Skin Of Scalp And Neck; Other Fisher Eel Current Drug Therapy 08/28/2023 Orders Only Department of Radiation Oncology in [address] [phone] Tammie Hooks M.D., Ph.D. 08/28/2023 10:00 AM CDT Clinical Communication Virtual Review in [address] [phone] 08/16/2023 Refill Department of Radiation Oncology in [address] [phone] Tammie Hooks M.D., Ph.D. Med Refill 08/16/2023 Clinical Communication Department of Oncology in [address] [phone] Tammie Adams R.N., O.C.N. Sx- foot vibration 08/08/2023 3:30 PM CDT Infusion Department of Oncology in [address] [address] Blanche Monzon P.A.-C., M.S. Other Fisher Eel Current Drug Therapy (Primary Dx); Secondary Malignant Neoplasm Bone (HCC); Squamous Cell Carcinoma Of Skin Of Scalp And Neck; Malignant Neoplasm Of Neck Squamous Cell 08/08/2023 2:40 PM CDT Education Department of Oncology in [place], [place] [address] [place] [phone] Blanche Monzon P.A.-C., M.S. Janette Arango R.N. Secondary Malignant Neoplasm Bone (HCC); Squamous Cell Carcinoma Of Skin Of Scalp And Neck; Other Fisher Eel Current Drug Therapy 08/08/2023 1:40 PM CDT Office Visit Department of Oncology in [place], [place] [address] [place] [phone] Blanche Monzon P.A.-C., M.S. Secondary Malignant Neoplasm Bone (HCC); Squamous Cell Carcinoma Of Skin Of Scalp And Neck; Other Fisher Eel Current Drug Therapy 08/03/2023 12:36 PM CDT - 08/03/2023 3:18 PM CDT Hospital Encounter Department of Radiation Oncology in [address] [phone] Tammie Hooks M.D., Ph.D. Secondary Malignant Neoplasm Bone (HCC) (Primary Dx); Malignant Neoplasm Of Neck Squamous Cell 07/28/2023 9:20 AM CDT Telemedicine Department of Oncology in [address] [phone] Blanche Monzon P.A.-C., M.S. Squamous Cell Carcinoma Of Skin Of Scalp And Neck (Primary Dx); Secondary Malignant Neoplasm Bone (HCC); Other Fisher Eel Current Drug Therapy; Psoriasis 07/27/2023 12:04 PM CDT - 07/27/2023 11:59 PM CDT Hospital Encounter Department of Radiology, [facility] in [place], [place] [address] [place] [phone] Woody Navarro M.D. Squamous Cell Carcinoma Of [...] Date Secondary Malignant Neoplasm Bone 07/28/2023 Other Fpc Current Drug Therapy 07/28/2023 Malignant Neoplasm Of Neck Squamous Cell 022 Squamous Cell Carcinoma Of Skin Of Scalp And Nec k 01/26/2022 Overview (01/26/2022): Added automatically from request for surgery [id number] Amnesia 01/26/2022 Disorder Of The Skin And Subcutaneous Tissue Uns pecified 01/26/2022 Dry Eye Syndrome Right 01/26/2022 Dyslipidemia 01/26/2022 Fatigue 01/26/2022 Fatty Liver 01/26/2022 Gastroesophageal Reflux Disease 01/26/2022 Generalized Enlarged Lymph Nodes 01/26/2022 Hereditary And Idiopathic Neuropathy Unspecified 01/26/2022 Hyperlipidemia 01/26/2022 Microscopic Colitis Unspecified 01/26/2022 Nonrheumatic Aortic Valve Insufficiency 01/27/20 Osteoporosis 10/26/2020 Social History Tobacco Use Types [...] often do you attend chur ch or jewish services? Never 01/24/2022 Do you belong to [...] [facility] - Occupational Stress Questionnaire Answer Date [...] Sex Assigned at Female 01/24/2022 7:37 PM OTHER WOOD PROCESSING MACHINE OPERATOR Gender Identity Female 01/24/2022 7:37 PM OTHER WOOD PROCESSING MACHINE OPERATOR Sexual Orientation Straight 01/24/2022 7: 37 PM OTHER WOOD PROCESSING MACHINE OPERATOR Last Filed Vital Signs Vital Sign Reading [...] AM CDT Clinical Communication Virtual Review in [address] [phone] 11/01/2023 11:40 AM CDT Lab Department of Laboratory Medicine and Pathology, [facility], in [address] [phone] Remigio Frey M.D., Ph.D. [address] [place] [phone] 11/01/2023 1:40 PM CDT Office Visit Department of Oncology in [address] [phone] Blanche Monzon P.A.-C., M.S. [address] [place] [phone] 11/01/2023 2:45 PM CDT Infusion Department of Oncology in [place], [place] [address] [place] [phone] Remigio Frey M.D., Ph.D. [address] [place] [phone] 11/08/2023 9:45 AM CDT Clinical Communication Virtual Review in [place], [place] [address] [place] [address] 11/10/2023 8:00 AM CDT Office Visit Department of Dermatology in [place], [place] [address] [place] [phone] Emily Bell M.D. [address] [place] [phone] 11/17/2023 11:00 AM CDT Clinical Communication Virtual Review in [address] [phone] 11/21/2023 11:10 AM CDT Lab Department of Laboratory Medicine and Pathology, [facility], in [address] [address] Remigio Frey M.D., Ph.D. [address] [place] [phone] 11/21/2023 1:00 PM CDT Office Visit Department of Oncology in [place], [place] [address] [place] [phone] Mc Mcknight M.D., Ph.D. [address] [place] [phone] 11/21/2023 2:15 PM CDT Infusion Department of Oncology in [place], [place] [address] [place] [phone] Remigio Frey M.D., Ph.D. [address] [place] [phone] 12/11/2023 1:45 PM CDT Clinical Communication Virtual Review in [place], [place] [address] [place] [address] 12/12/2023 11:00 AM CDT Lab Department of Laboratory Medicine and Pathology, [facility], in [place], [place] [address] [place] [phone] Remigio Frey M.D., Ph.D. [address] [place] [phone] 12/12/2023 1:00 PM CDT Office Visit Department of Oncology in [address] [address] Mc Mcknight M.D., Ph.D. [address] [place] [phone] 12/12/2023 3:00 PM CDT Infusion Department of Oncology in [place], [place] [address] [place] [phone] Remigio Frey M.D., Ph.D. [address] [place] [phone] 01/11/2024 2:00 PM OTHER WOOD PROCESSING MACHINE OPERATOR Appointment Department of Radiation Oncology in [address] [phone] Tammie Hooks M.D., Ph.D. [address] [place] [phone] 01/17/2024 9:00 AM OTHER WOOD PROCESSING MACHINE OPERATOR Clinical Communication Virtual Review in [address] [phone] 01/19/2024 2:30 PM OTHER WOOD PROCESSING MACHINE OPERATOR Comprehensive Visit Department of Neurology in [address] [phone] Kory Alas M.B., Ch.B. [address] [place] [address] Medical Devices Implanted Type Area Student Officer Device Identifier Shelf Expiration Date Model / [...] Bone (HCC) Other Fpc Current Drug Therapy CT ABDOMEN PELVIS WITH IV CONTRAST RAD - Routine (most inpatients and all outpatients) 10/11/2023 7:40 AM CDT Squamous Cell Carcinoma Of Skin Of Scalp And Neck Secondary Malignant Neoplasm Bone (HCC) Other Fisher Eel Current Drug Therapy CT CHEST WITH IV CONTRAST RAD - Routine (most inpatients and all outpatients) 10/11/2023 7:40 AM CDT Squamous Cell Carcinoma Of Skin Of Scalp And Neck Secondary Malignant Neoplasm Bone (HCC) Other Fisher Eel Current Drug Therapy CT NECK SOFT TISSUE WITH IV CONTRAST RAD - Routine (most inpatients and all outpatients) 10/11/2023 7:40 AM CDT Squamous Cell Carcinoma Of Skin Of Scalp And Neck Secondary Malignant Neoplasm Bone (HCC) Other Fpc Current Drug Therapy THYROID FUNCTION CASCADE, S Routine 10/11/2023 6:41 AM CDT Other Fpc Current Drug Therapy 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 BILIRUBIN DIRECT, S/P Routine 10/11/2023 6:41 AM CDT Other Fisher Eel Current Drug Therapy 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 COMPREHENSIVE METABOLIC PANEL, S/P Routine 10/11/2023 6:41 AM CDT Other Fpc Current Drug Therapy 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 CBC WITH DIFFERENTIAL, B Routine 10/11/2023 6:41 AM CDT Other Fisher Eel Current Drug Therapy 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 THYROID FUNCTION CASCADE, S Routine 09/19/2023 10:57 AM CDT 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 Other Fpc Current Drug Therapy BILIRUBIN DIRECT, S/P Routine 09/19/2023 10:57 AM CDT 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 Other Fisher Eel Current Drug Therapy COMPREHENSIVE METABOLIC PANEL, S/P Routine 09/19/2023 10:57 AM CDT 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 Other Fpc Current Drug Therapy CBC WITH DIFFERENTIAL, B Routine 09/19/2023 10:57 AM CDT 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 Other Fisher Eel Current Drug Therapy THYROID FUNCTION CASCADE, S Routine 08/29/2023 11:30 AM CDT 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 Other Fpc Current Drug Therapy BILIRUBIN DIRECT, S/P Routine 08/29/2023 11:30 AM CDT 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 Other Fisher Eel Current Drug Therapy COMPREHENSIVE METABOLIC PANEL, S/P Routine 08/29/2023 11:30 AM CDT 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 Other Fisher Eel Current Drug Therapy CBC WITH DIFFERENTIAL, B Routine 08/29/2023 11:30 AM CDT 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 Other Fisher Eel Current Drug Therapy THYROID FUNCTION CASCADE, S Routine 08/08/2023 11:12 AM CDT 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 Other Fisher Eel Current Drug Therapy BILIRUBIN DIRECT, S/P Routine 08/08/2023 11:12 AM CDT 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 Other Fpc Current Drug Therapy COMPREHENSIVE METABOLIC PANEL, S/P Routine 08/08/2023 11:12 AM CDT 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 Other Fisher Eel Current Drug Therapy CBC WITH DIFFERENTIAL, B Routine 08/08/2023 11:12 AM CDT 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 Other Fpc Current Drug Therapy MR BRAIN WITHOUT AND [...] Region Laterality Modality Head, Brain, Neuroradiology [facility], Neuroradiology [facility], Neuroradiology [facility] N/A Magnetic Resonance Impressions 10/11/2023 10:22 [...] with direct visualization. Blanche Monzon P.A.-C., M.S. IMG MRI PROCEDURES * CT Abdomen [...] IMG CT P ROCEDURES * Thyroid Function [place] (10/11/2023 6:41 AM CDT) Only the most recent of4 resultswithin the time period is included. TSH, Sensitive 3.9 0.3 - 4.2 mIU/L 10/11/2023 7:51 AM CDT DTL Blood (Blood, Venous) 10/11/2023 6:41 AM CDT 10/11/2023 7:20 AM CDT Blanche Monzon P.A.-C., M.S. [place] [address], [facility] [address] [place] [address] * (ABNORMAL) CBC with Differential, Blood (10/11/2023 [...] Monzon P.A.-C., M.S. LAB BLOO D ADD-ON [facility] [address] [place] [address], [facility] DTL [facility] [address] [place] [address] DHPM [facility] [address] [place] [address] * Bilirubin, Direct (10/11/2023 6:41 AM CDT) Only the most recent of4 resultswithin the time period is included. Bilirubin, Direct, S <0.2 0.0 - 0.3 mg/dL 10/11/2023 7:51 AM CDT DTL Blood (Blood, Venous) 10/11/2023 6:41 AM CDT 10/11/2023 7:20 AM CDT Blanche Monzon P.A.-C. [place]ey[place]. LAB BLOO D ADD-ON [facility] [address] [place] [address], [facility] DTL [facility] [address] [place] [address] * Comprehensive Metabolic Panel (10/11/2023 6:41 AM [...] Monzon P.A.-C. [place]ey[place]. 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
--- OUTSIDE RECORDS SUMMARY | 2023-10-25 16:15 | XMS_ITS | Encounter Summary ---
Author Organization [facility] Address [address] [place] [address] Care Team Providers Care Veterinary Technologist Name Role Phone Elsewhere, Pcp Primary Care Provider Unavailabl e Reason for Visit * Episode Based Medications (Routine) - Authorized Specialty Diagnoses / Procedures Referred By Contac t Referred To Contact Diagnoses Other It Business Process Architect Current Drug Therapy 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 Blanche Monzon P.A.-C., M.S. [address] [place] [phone] Rst Onc Rogo [address] [place] [phone] Referral ID Status Reason Start Date Expiration Date V isits Requested Visits Authorized [id number] Authorized 07/28/2023 07/27/2025 99 99 Encounter Details Date Type Department Care Team (Late st Contact Info) Description 10/11/2023 2:00 PM CDT Infusion Department of Oncology in [place], [place] [address] [place] [phone] Blanche Monzon P.A.-C., M.S. 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 Never 01/24/2022 Do you belong to any clubs o r organizations such as caodaism groups, unions, fraternal or athletic groups, or [...] and heating? Not hard at all 09/02/2022 [facility] [place] of Occupat ional Health - Occupational Stress [...] Sex Assigned at Female 01/24/2022 7:37 PM COILED COIL INSPECTOR Gender Identity Female 01/24/2022 7:37 PM COILED COIL INSPECTOR Sexual Orientation Straight 01/24/2022 7: 37 PM COILED COIL INSPECTOR documented as of this encounter Plan of Treatment Upcoming Encounters Date Type Department Care Team (Late st Contact Info) Description 10/30/2023 11:00 AM CDT Clinical Communication Virtual Review in [address] [phone] 11/01/2023 11:40 AM CDT Lab Department of Laboratory Medicine and Pathology, [facility], in [place], [place] [address] [place] [phone] Remigio Frey M.D., Ph.D. [address] [place] [phone] 11/01/2023 1:40 PM CDT Office Visit Department of Oncology in [address] [address] Blanche Monzon P.A.-C., M.S. [address] [place] [phone] 11/01/2023 2:45 PM CDT Infusion Department of Oncology in [address] [phone] Remigio Frey M.D., Ph.D. [address] [place] [phone] 11/08/2023 9:45 AM CDT Clinical Communication Virtual Review in [address] [address] 11/10/2023 8:00 AM CDT Office Visit Department of Dermatology in [address] [phone] Emily Bell M.D. [address] [place] [phone] 11/17/2023 11:00 AM CDT Clinical Communication Virtual Review in [address] [phone] 11/21/2023 11:10 AM CDT Lab Department of Laboratory Medicine and Pathology, [facility], in [place], [place] [address] [place] [phone] Remigio Frey M.D., Ph.D. [address] [place] [phone] 11/21/2023 1:00 PM CDT Office Visit Department of Oncology in [place], [place] [address] [place] [phone] Mc Mcknight M.D., Ph.D. [address] [place] [phone] 11/21/2023 2:15 PM CDT Infusion Department of Oncology in [place], [place] [address] [place] [phone] Remigio Frey M.D., Ph.D. [address] [place] [phone] 12/11/2023 1:45 PM CDT Clinical Communication Virtual Review in [place], [place] 200 [place] [address] 12/12/2023 11:00 AM CDT Lab Department of Laboratory Medicine and Pathology, [facility], in [place], [place] [address] [place] [phone] Remigio Frey M.D., Ph.D. [address] [place] [phone] 12/12/2023 1:00 PM CDT Office Visit Department of Oncology in [place], [place] [address] [place] [phone] Mc Mcknight M.D., Ph.D. [address] [place] [phone] 12/12/2023 3:00 PM CDT Infusion Department of Oncology in [place], [place] [address] [place] [phone] Remigio Frey M.D., Ph.D. [address] [place] [phone] 01/11/2024 2:00 PM COILED COIL INSPECTOR Appointment Department of Radiation Oncology in [place], [place] [address] [place] [phone] Tammie Hooks M.D., Ph.D. [address] [place] [phone] 01/17/2024 9:00 AM COILED COIL INSPECTOR Clinical Communication Virtual Review in [place], [place] 200 [place] [phone] 01/19/2024 2:30 PM COILED COIL INSPECTOR Comprehensive Visit Department of Neurology in [address] [phone] Kory Alas M.B., Ch.B. [address] [place] [phone] documented as of this encounter Visit Diagnoses Diagnosis Malignant Neoplasm Of Neck Squamous Cell- Primary Other Halfway Current Drug Therapy 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 Malignant Neoplasm Of Neck Squamous Cell- Primary Secondary Malignant Neoplasm Bone (HCC) Other Halfway Current Drug Therapy documented in this encounter [...] mL/hr documented in this encounter Care Teams Veterinary Technologist Relationship Specialty Start Date End Date Elsewhere, Pcp PCP - General Family Medicine 02/01/22 documented as of this encounter
--- OUTSIDE RECORDS SUMMARY | 2023-10-25 16:15 | XMS_ITS ---
Author Organization [facility] Address [address] [place] [address] Care Team Providers Care Handyperson Name Role Phone Unavailable Unavailable Unavailable Surgery Details Not on file Complications Check Surgery Details section. Procedure Estimated Blood Loss Check Surgery Details section. Procedure Findings Check Surgery Details section. Procedure Specimens Taken Check Surgery Details section.
--- OUTSIDE RECORDS SUMMARY | 2023-10-25 16:16 | XMS_ITS | Encounter Summary ---
Author Organization [facility] Address [address] [place] [address] Care Team Providers Care Party Plan Salesperson Name Role Phone Elsewhere, Pcp Primary Care Provider Unavailabl e Encounter Details Date Type Department Care Team (Latest Contact Info) Description 08/28/2023 10:00 AM CDT Clinical Communication Virtual Review in [place], [place] [address] [place] [address] Social History Tobacco Use Types Packs/Day Years [...] your living situation today? I have a [facility] place to live 02/16/2023 Education Answer Date Recorded What is the highest level of school you have completed or the highest degree you have received? Bachelor's degree (e.g., BA, AB, BS) 01/24/2022 Sex and Gender Information Value Date Recorded Sex Assigned at Female 01/24/2022 7:37 PM MASK DESIGNER Gender Identity Female 01/24/2022 7:37 PM MASK DESIGNER Sexual Orientation Straight 01/24/2022 7: 37 PM MASK DESIGNER documented as of this encounter Plan of Treatment Upcoming Encounters Date Type Department Care Team (Late st Contact Info) Description 10/30/2023 11:00 AM CDT Clinical Communication Virtual Review in [place], [place] 200 [place] [address] 11/01/2023 11:40 AM CDT Lab Department of Laboratory Medicine and Pathology, [facility], in [address] [phone] Remigio Frey M.D., Ph.D. [address] [place] [phone] 11/01/2023 1:40 PM CDT Office Visit Department of Oncology in [place], [place] [address] [place] [phone] Blanche Monzon P.A.-C., M.S. [address] [place] [phone] 11/01/2023 2:45 PM CDT Infusion Department of Oncology in [place], [place] [address] [place] [phone] Remigio Frey M.D., Ph.D. [address] [place] [phone] 11/08/2023 9:45 AM CDT Clinical Communication Virtual Review in [address] [phone] 11/10/2023 8:00 AM CDT Office Visit Department of Dermatology in [address] [phone] Emily Bell M.D. [address] [place] [phone] 11/17/2023 11:00 AM CDT Clinical Communication Virtual Review in [address] [address] 11/21/2023 11:10 AM CDT Lab Department of Laboratory Medicine and Pathology, [facility], in [address] [address] Remigio Frey M.D., Ph.D. [address] [place] [phone] 11/21/2023 1:00 PM CDT Office Visit Department of Oncology in [address] [phone] Mc Mcknight M.D., Ph.D. [address] [place] [phone] 11/21/2023 2:15 PM CDT Infusion Department of Oncology in [address] [address] Remigio Frey M.D., Ph.D. [address] [place] [phone] 12/11/2023 1:45 PM CDT Clinical Communication Virtual Review in [place], [place] 200 [place] [address] 12/12/2023 11:00 AM CDT Lab Department of Laboratory Medicine and Pathology, [facility], in [place], [place] [address] [place] [phone] Remigio Frey M.D., Ph.D. [address] [place] [phone] 12/12/2023 1:00 PM CDT Office Visit Department of Oncology in [place], [place] [address] [place] [phone] Mc Mcknight M.D., Ph.D. [address] [place] [phone] 12/12/2023 3:00 PM CDT Infusion Department of Oncology in [place], [place] [address] [place] [phone] Remigio Frey M.D., Ph.D. [address] [place] [phone] 01/11/2024 2:00 PM MASK DESIGNER Appointment Department of Radiation Oncology in [address] [phone] Tammie Hooks M.D., Ph.D. [address] [place] [phone] 01/17/2024 9:00 AM MASK DESIGNER Clinical Communication Virtual Review in [address] [phone] 01/19/2024 2:30 PM MASK DESIGNER Comprehensive Visit Department of Neurology in [place], [place] [address] [place] [phone] Kory Alas M.B., Ch.B. [address] [place] [phone] documented as of this encounter Visit Diagnoses Not on filedocumented in this encounter Care Teams Party Plan Salesperson Relationship Specialty Start Date End Date Elsewhere, Pcp PCP - General Family Medicine 02/01/22 documented as of this encounter
--- OUTSIDE RECORDS SUMMARY | 2023-10-25 16:16 | XMS_ITS | Encounter Summary ---
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 [address] [place] [phone] Rst Onc Rogo [address] [place] [phone] Referral ID Status Reason Start Date Expiration Date V isits Requested Visits Authorized [id number] Authorized 07/28/2023 07/27/2025 99 99 Encounter Details Date Type Department Care Team (Late st Contact Info) Description 08/08/2023 1:40 PM CDT Office Visit Department of Oncology in [place], [place] [address] [place] [phone] Nnamdi Jovel P.A.-C., M.S. 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 Not hard at all 09/02/2022 [facility] [place] of Occupat scionhealthal [facility] - Occupational Stress Questionnaire Answer Date Recorded [...] Sex Assigned at Female 01/24/2022 7:37 PM ART TRACER Gender Identity Female 01/24/2022 7:37 PM ART TRACER Sexual Orientation Straight 01/24/2022 7: 37 PM ART TRACER documented as of this encounter Last Filed [...] REQUESTING PROVIDER Nnamdi Jovel P.A.-C., M.S. [address] [place] [phone] PRIMARY COLLABORATING PROVIDER Mc Mcknight M.D., Ph.D. [...] the vertex of the scalp. Evaluated by professor of fine art Dr. Banuelos in [place] and was treated for possible psoriasis. The lesion persisted after 6 weeks. She was then treated with UV phototherapy between September and December of 2021. September 22, 2021---December 17, 2021: Underwent biopsy of the vertex scalp lesion which revealed squamous cell carcinoma. Incisional biopsy of left level 5 lymph node also revealed squamous cell carcinoma. 12/30/2021 Biopsy/Pathology A. Skin, scalp, vertex, excisional biopsy ([id number] B; 12/30/2021): Invasive poorly differentiated squamous cell carcinoma, transected at base and lateral edge of the specimen. B. Neck, left, soft tissue, biopsy ([id number]; 01/13/2022): Invasive poorly differentiated squamous cell carcinoma [...] needed. SOCIAL HISTORY Veronica Guevara lives in [place], [place], with her , Andre. Retired. PHYSICAL [...] Value Bilirubin, Direct, S <0.2 Thyroid Function Douglas Collection Time: 08/08/23 11:12 AM Result Value TSH, Sensitive 1.6 RADIOLOGICAL DATA Reviewed. 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 Also, reviewed [...] AM CDT Clinical Communication Virtual Review in [address] [phone] 11/01/2023 11:40 AM CDT Lab Department of Laboratory Medicine and Pathology, [facility], in [place], [place] [address] [place] [phone] Remigio Frey M.D., Ph.D. [address] [place] [phone] 11/01/2023 1:40 PM CDT Office Visit Department of Oncology in [place], [place] [address] [place] [phone] Nnamdi Jovel P.A.-C., M.S. [address] [place] [phone] 11/01/2023 2:45 PM CDT Infusion Department of Oncology in [place], [place] [address] [place] [phone] Remigio Frey M.D., Ph.D. [address] [place] [phone] 11/08/2023 9:45 AM CDT Clinical Communication Virtual Review in [place], [place] 200 [place] [phone] 11/10/2023 8:00 AM CDT Office Visit Department of Dermatology in [place], [place] [address] [place] [phone] Emily Bell M.D. [address] [place] [phone] 11/17/2023 11:00 AM CDT Clinical Communication Virtual Review in [address] [address] 11/21/2023 11:10 AM CDT Lab Department of Laboratory Medicine and Pathology, [facility], in [place], [place] [address] [place] [phone] Remigio Frey M.D., Ph.D. [address] [place] [phone] 11/21/2023 1:00 PM CDT Office Visit Department of Oncology in [place], [place] [address] [place] [phone] Mc Mcknight M.D., Ph.D. [address] [place] [phone] 11/21/2023 2:15 PM CDT Infusion Department of Oncology in [place], [place] [address] [place] [phone] Remigio Frey M.D., Ph.D. [address] [place] [phone] 12/11/2023 1:45 PM CDT Clinical Communication Virtual Review in [place], [place] 200 [place] [address] 12/12/2023 11:00 AM CDT Lab Department of Laboratory Medicine and Pathology, [facility], in [address] [address] Remigio Frey M.D., Ph.D. [address] [place] [phone] 12/12/2023 1:00 PM CDT Office Visit Department of Oncology in [address] [phone] Mc Mcknight M.D., Ph.D. [address] [place] [phone] 12/12/2023 3:00 PM CDT Infusion Department of Oncology in [address] [address] Remigio Frey M.D., Ph.D. [address] [place] [phone] 01/11/2024 2:00 PM ART TRACER Appointment Department of Radiation Oncology in [place], [place] [address] [place] [phone] Tammie Hooks M.D., Ph.D. [address] [place] [phone] 01/17/2024 9:00 AM ART TRACER Clinical Communication Virtual Review in [place], [place] 200 [place] [phone] 01/19/2024 2:30 PM ART TRACER Comprehensive Visit Department of Neurology in [place], [place] [address] [place] [phone] Kory Alas M.B., Ch.B. 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
--- OUTSIDE RECORDS SUMMARY | 2023-10-25 16:16 | XMS_ITS | Encounter Summary ---
Author Organization [facility] Address 200 [place] [address] Care Team Providers Care Account Resolution Specialist Name Role Phone Elsewhere, Pcp Primary Care Provider Unavailabl e Reason for Referral * Outpatient (Routine) - Closed Specialty Diagnoses / Procedures Referred By Contac t Referred To Contact Radiation Oncology Tammie Hooks M.D., Ph.D. [address] [place] [phone] [facility] Referral ID Status Reason Start Date Expiration Date Visits Re quested Visits Authorized [id number] Closed 08/28/2023 02/26/2025 1 1 Encounter Details Date Type Department Care Team (Late st Contact Info) Description 08/28/2023 Orders Only Department of Radiation Oncology in [place], [place] [address] [place] [phone] Tammie Hooks M.D., Ph.D. [address] [place] [phone] Social History Tobacco Use Types Packs/Day Years [...] often do you attend chur ch or synagogue services? Never 01/24/2022 Do you belong to [...] heating? Not hard at all 09/02/2022 [facility] [place] of Occupat ional Health - Occupational Stress [...] your living situation today? I have a [facility] place to live 02/16/2023 Education Answer Date Recorded What is the highest level of school you have completed or the highest degree you have received? Bachelor's degree (e.g., BA, AB, BS) 01/24/2022 Sex and Gender Information Value Date Recorded Sex Assigned at Female 01/24/2022 7:37 PM TOUR PRODUCTION SUPERVISOR Gender Identity Female 01/24/2022 7:37 PM TOUR PRODUCTION SUPERVISOR Sexual Orientation Straight 01/24/2022 7: 37 PM TOUR PRODUCTION SUPERVISOR documented as of this encounter Plan of Treatment Upcoming Encounters Date Type Department Care Team (Late st Contact Info) Description 10/30/2023 11:00 AM CDT Clinical Communication Virtual Review in [address] [phone] 11/01/2023 11:40 AM CDT Lab Department of Laboratory Medicine and Pathology, [facility], in [place], [place] [address] [place] [phone] Remigio Frey M.D., Ph.D. [address] [place] [phone] 11/01/2023 1:40 PM CDT Office Visit Department of Oncology in [place], [place] [address] [place] [phone] Blanche Monzon P.A.-C., M.S. [address] [place] [phone] 11/01/2023 2:45 PM CDT Infusion Department of Oncology in [place], [place] [address] [place] [phone] Remigio Frey M.D., Ph.D. [address] [place] [phone] 11/08/2023 9:45 AM CDT Clinical Communication Virtual Review in [address] [phone] 11/10/2023 8:00 AM CDT Office Visit Department of Dermatology in [address] [phone] Emily Bell M.D. [address] [place] [phone] 11/17/2023 11:00 AM CDT Clinical Communication Virtual Review in [address] [phone] 11/21/2023 11:10 AM CDT Lab Department of Laboratory Medicine and Pathology, [facility], in [place], [place] [address] [place] [phone] Remigio Frey M.D., Ph.D. [address] [place] [phone] 11/21/2023 1:00 PM CDT Office Visit Department of Oncology in [address] [phone] Mc Mcknight M.D., Ph.D. [address] [place] [phone] 11/21/2023 2:15 PM CDT Infusion Department of Oncology in [address] [phone] Remigio Frey M.D., Ph.D. [address] [place] [phone] 12/11/2023 1:45 PM CDT Clinical Communication Virtual Review in [place], [place] 200 [place] [address] 12/12/2023 11:00 AM CDT Lab Department of Laboratory Medicine and Pathology, [facility], in [address] [phone] Remigio Frey M.D., Ph.D. [address] [place] [phone] 12/12/2023 1:00 PM CDT Office Visit Department of Oncology in [address] [phone] Mc Mcknight M.D., Ph.D. [address] [place] [phone] 12/12/2023 3:00 PM CDT Infusion Department of Oncology in [address] [phone] Remigio Frey M.D., Ph.D. [address] [place] [phone] 01/11/2024 2:00 PM TOUR PRODUCTION SUPERVISOR Appointment Department of Radiation Oncology in [place], [place] [address] [place] [phone] Tammie Hooks M.D., Ph.D. [address] [place] [phone] 01/17/2024 9:00 AM TOUR PRODUCTION SUPERVISOR Clinical Communication Virtual Review in [place], [place] 200 [place] [phone] 01/19/2024 2:30 PM TOUR PRODUCTION SUPERVISOR Comprehensive Visit Department of Neurology in [place], [place] [address] [place] [phone] Kory Alas M.B., Ch.B. [address] [place] [phone] Scheduled Referrals Name Type Priority Associated Diagnoses Orde r Schedule Radiation Oncology office visit (clinic) Outpatient Referral Routine Expected: 10/11/2023 (Approximate), Expires: 11/27/2024 documented as of this encounter Visit Diagnoses Not on filedocumented in this encounter Care Teams Account Resolution Specialist Relationship Specialty Start Date End Date Elsewhere, Pcp PCP - General Family Medicine 02/01/22 documented as of this encounter
--- OUTSIDE RECORDS SUMMARY | 2023-10-25 16:16 | XMS_ITS | Encounter Summary ---
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 [address] [place] [phone] Rst Onc Rogo [address] [place] [phone] Referral ID Status Reason Start Date Expiration Date V isits Requested Visits Authorized [id number] Authorized 07/28/2023 07/27/2025 99 99 Encounter Details Date Type Department Care Team (Late st Contact Info) Description 08/29/2023 1:40 PM CDT Office Visit Department of Oncology in [place], [place] [address] [place] [phone] Farnaz Mccarty APRN, C.N.P. [address] [place] [phone] Secondary Malignant Neoplasm Bone (HCC); Squamous Cell Carcinoma Of Skin Of Scalp And Neck; Other Combine Mechanic Current Drug Therapy Social History Tobacco Use [...] How often do you attend chur or shinto services? Never 01/24/2022 Do you [...] hard at all 09/02/2022 [facility] - Occupational Stress Questionnaire Answer Date [...] living situation today? I have a [facility] place to live 02/16/2023 Education Answer Date Recorded What is the highest level of school you have completed or the highest degree you have received? Bachelor's degree (e.g., BA, AB, BS) 01/24/2022 Sex and Gender Information Value Date Recorded Sex Assigned at Female 01/24/2022 7:37 PM RESIDENT ASSOCIATE Gender Identity Female 01/24/2022 7:37 PM RESIDENT ASSOCIATE Sexual Orientation Straight 01/24/2022 7: 37 PM RESIDENT ASSOCIATE documented as of this encounter Last Filed [...] the vertex of the scalp. Evaluated by six horse hitch driver Dr. Banuelos in [place] and was treated for possible psoriasis. The lesion persisted after 6 weeks. She was then treated with UV phototherapy between September and December of 2021. September 22, 2021---December 17, 2021: Underwent biopsy of the vertex scalp lesion which revealed squamous cell carcinoma. Incisional biopsy of left level 5 lymph node also revealed squamous cell carcinoma. 12/30/2021 Biopsy/Pathology A. Skin, scalp, vertex, excisional biopsy ([id number]; 12/30/2021): Invasive poorly differentiated squamous cell carcinoma, transected at base and lateral edge of the specimen. B. Neck, left, soft tissue, biopsy ([id number]; 01/13/2022): Invasive poorly differentiated squamous cell carcinoma [...] AM CDT Clinical Communication Virtual Review in [address] [phone] 11/01/2023 11:40 AM CDT Lab Department of Laboratory Medicine and Pathology, [facility], in [address] [phone] Remigio Frey M.D., Ph.D. [address] [place] [phone] 11/01/2023 1:40 PM CDT Office Visit Department of Oncology in [address] [address] Blanche Monzon P.A.-C., M.S. [address] [place] [phone] 11/01/2023 2:45 PM CDT Infusion Department of Oncology in [address] [phone] Remigio Frey M.D., Ph.D. [address] [place] [phone] 11/08/2023 9:45 AM CDT Clinical Communication Virtual Review in [address] [address] 11/10/2023 8:00 AM CDT Office Visit Department of Dermatology in [place], [place] [address] [place] [phone] Emily Bell M.D. [address] [place] [phone] 11/17/2023 11:00 AM CDT Clinical Communication Virtual Review in [place], [place] 200 [place] [address] 11/21/2023 11:10 AM CDT Lab Department of Laboratory Medicine and Pathology, [facility] in [place], [place] [address] [place] [phone] Remigio Frey M.D., Ph.D. [address] [place] [phone] 11/21/2023 1:00 PM CDT Office Visit Department of Oncology in [address] [phone] Mc Mcknight M.D., Ph.D. [address] [place] [phone] 11/21/2023 2:15 PM CDT Infusion Department of Oncology in [address] [address] Remigio Frey M.D., Ph.D. [address] [place] [phone] 12/11/2023 1:45 PM CDT Clinical Communication Virtual Review in [address] [phone] 12/12/2023 11:00 AM CDT Lab Department of Laboratory Medicine and Pathology, [facility] in [place], [place] [address] [place] [phone] Remigio Frey M.D., Ph.D. [address] [place] [phone] 12/12/2023 1:00 PM CDT Office Visit Department of Oncology in [place], [place] [address] [place] [phone] Mc Mcknight M.D., Ph.D. [address] [place] [phone] 12/12/2023 3:00 PM CDT Infusion Department of Oncology in [place], [place] [address] [place] [phone] Remigio Frey M.D., Ph.D. [address] [place] [phone] 01/11/2024 2:00 PM RESIDENT ASSOCIATE Appointment Department of Radiation Oncology in [address] [phone] Tammie Hooks M.D., Ph.D. [address] [place] [phone] 01/17/2024 9:00 AM RESIDENT ASSOCIATE Clinical Communication Virtual Review in [address] [phone] 01/19/2024 2:30 PM RESIDENT ASSOCIATE Comprehensive Visit Department of Neurology in [address] [phone] Kory Alas M.B., Ch.B. [address] [place] [phone] documented as of this encounter Visit Diagnoses Diagnosis 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 Other [facility] Current Drug Therapy Malignant Neoplasm Of Neck Squamous Cell- Primary Secondary Malignant Neoplasm Bone (HCC) Other Combine Mechanic Current Drug Therapy documented in this encounter Care Teams Before School Babysitter Relationship Specialty Start Date End Date Elsewhere, Pcp PCP - General Family Medicine 11/29/22 documented as of this encounter
--- OUTSIDE RECORDS SUMMARY | 2023-10-25 16:16 | XMS_ITS | Encounter Summary ---
Author Organization [facility] Address 200 [place] [address] Care Team Providers Care Palletizer Operator Name Role Phone Elsewhere, Pcp Primary Care Provider Unavailabl e Reason for Referral * Outpatient (Routine) - Closed Specialty Diagnoses / Procedures Referred By Contac t Referred To Contact Radiation Oncology Tammie Hooks M.D., Ph.D. 200 [place] [address] [facility] Referral ID Status Reason Start Date Expiration Date Visits Re quested Visits Authorized [id number] Closed 04/14/2023 10/13/2024 1 1 Scheduling Instructions Please schedule with Dr. Bruner's appts and CT, end of July to coincide when I am back. Reason for Visit * Outpatient (Routine) - Closed Specialty Diagnoses / Procedures Referred By Contac t Referred To Contact Radiation Oncology Tammie Hooks M.D., Ph.D. 200 [place] [phone] [facility] Referral ID Status Reason Start Date Expiration Date Visits Re quested Visits Authorized [id number] Closed 04/14/2023 10/13/2024 1 1 Encounter Details Date Type Department Care Team (Latest Contact Info) Description 08/03/2023 12:36 PM CDT - 08/03/2023 3:18 PM CDT Hospital Encounter Department of Radiation Oncology in [place], [place] [address] [place] [address] Tammie Hooks M.D., Ph.D. [address] [place] [address] Secondary Malignant Neoplasm Bone (HCC) (Primary Dx); [...] and heating? Not hard at all 09/02/2022 [employer] [facility] - Occupational Stress [...] living situation today? I have a [facility] place to live 02/16/2023 Education Answer Date Recorded What is the highest level of school you have completed or the highest degree you have received? Bachelor's degree (e.g., BA, AB, BS) 01/24/2022 Sex and Gender Information Value Date Recorded Sex Assigned at Female 01/24/2022 7:37 PM PATIENT SERVICES MANAGER Gender Identity Female 01/24/2022 7:37 PM PATIENT SERVICES MANAGER Sexual Orientation Straight 01/24/2022 7: 37 PM PATIENT SERVICES MANAGER documented as of this encounter Last Filed [...] Guevara is a 78 y.o. female from [facility] who returns to radiationoncology clinic today [...] the vertex of the scalp. Evaluated by laboratory aide Dr. Banuelos in [place] and was treated for possible psoriasis. The lesion persisted after 6 weeks. She was then treated with UV phototherapy between September and December of 2021. September 22, 2021---December 17, 2021: Underwent biopsy of the vertex scalp lesion which revealed squamous cell carcinoma. Incisional biopsy of left level 5 lymph node also revealed squamous cell carcinoma. 12/30/2021 Biopsy/Pathology A. Skin, scalp, vertex, excisional biopsy ([id number]; 12/30/2021): Invasive poorly differentiated squamous cell carcinoma, transected at base and lateral edge of the specimen. B. Neck, left, soft tissue, biopsy ([id number]; 01/13/2022): Invasive poorly differentiated squamous cell carcinoma [...] hypothyroidism #Thyroid nodule 78 y.o. woman with [id number] SqCC of the scalp vertex, 3.5 cm [...] of the patient today. Time includes both oxt-nxvv-xj-face ycmuouz-dd-nuhk patient care. Tammie Hooks MD PhD Program Management Specialist Publicity Manager Radiation Oncology 08/02/23 1:37 PM CDT Pager: [phone] documented in this encounter Plan of Treatment Upcoming Encounters Date Type Department Care Team ([facility] st Contact Info) Description 10/30/2023 11:00 AM CDT Clinical Communication Virtual Review in [address] [phone] 11/01/2023 11:40 AM CDT Lab Department of Laboratory Medicine and Pathology, [facility] in [address] [phone] Remigio Frey M.D., Ph.D. [address] [place] [phone] 11/01/2023 1:40 PM CDT Office Visit Department of Oncology in [address] [phone] Blanche Monzon P.A.-C., M.S. [address] [place] [phone] 11/01/2023 2:45 PM CDT Infusion Department of Oncology in [address] [address] Remigio Frey M.D., Ph.D. [address] [place] [phone] 11/08/2023 9:45 AM CDT Clinical Communication Virtual Review in [address] [phone] 11/10/2023 8:00 AM CDT Office Visit Department of Dermatology in [place], [place] [address] [place] [phone] Emily Bell M.D. [address] [place] [phone] 11/17/2023 11:00 AM CDT Clinical Communication Virtual Review in [address] [phone] 11/21/2023 11:10 AM CDT Lab Department of Laboratory Medicine and Pathology, [facility] in [address] [phone] Remigio Fery M.D., Ph.D. [address] [place] [phone] 11/21/2023 1:00 PM CDT Office Visit Department of Oncology in [address] [address] Mc Mcknight M.D., Ph.D. [address] [place] [phone] 11/21/2023 2:15 PM CDT Infusion Department of Oncology in [address] [address] Remigio Frey M.D., Ph.D. [address] [place] [phone] 12/11/2023 1:45 PM CDT Clinical Communication Virtual Review in [address] [address] 12/12/2023 11:00 AM CDT Lab Department of Laboratory Medicine and Pathology, [facility] in [place], [place] [address] [place] [phone] Remigio Frey M.D., Ph.D. [address] [place] [phone] 12/12/2023 1:00 PM CDT Office Visit Department of Oncology in [address] [address] Mc Mcknight M.D., Ph.D. [address] [place] [phone] 12/12/2023 3:00 PM CDT Infusion Department of Oncology in [address] [phone] Remigio Frey M.D., Ph.D. [address] [place] [phone] 01/11/2024 2:00 PM PATIENT SERVICES MANAGER Appointment Department of Radiation Oncology in [address] [phone] Tammie Hooks M.D., Ph.D. [address] [place] [phone] 01/17/2024 9:00 AM PATIENT SERVICES MANAGER Clinical Communication Virtual Review in [address] [phone] 01/19/2024 2:30 PM PATIENT SERVICES MANAGER Comprehensive Visit Department of Neurology in [address] [phone] Kory Alas M.B., Ch.B. [address] [place] [phone] Scheduled Referrals Name Type Priority Associated Diagnoses Order Schedule Radiation Oncology office visit (clinic) Outpatient Referral Routine Once for 1 Occurrences starting 08/03/2023 until 08/03/2023 documented as of this encounter Visit Diagnoses Diagnosis Secondary Malignant Neoplasm Bone (HCC)- Primary Malignant Neoplasm Of Neck Squamous Cell Malignant Neoplasm Of Neck Squamous Cell- Primary Secondary Malignant Neoplasm Bone (HCC) Other Custodial Current Drug Therapy documented in this encounter Care Teams Palletizer Operator Relationship Specialty Start Date End Date Elsewhere, Pcp PCP - General Family Medicine 02/01/22 documented as of this encounter
--- OUTSIDE RECORDS SUMMARY | 2023-10-25 16:16 | XMS_ITS | Encounter Summary ---
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 200 [place] [address] Rst Onc Rogo [address] [place] [address] Referral ID Status Reason Start Date Expiration Date V isits Requested Visits Authorized [id number] Authorized 07/28/2023 07/27/2025 99 99 Encounter Details Date Type Department Care Team (Late st Contact Info) Description 09/19/2023 1:00 PM CDT Office Visit Department of Oncology in [place], [place] [address] [place] [phone] Blanche Monzon P.A.-C., M.S. [address] [place] [phone] Squamous Cell Carcinoma Of Skin Of Scalp And Neck (Primary Dx); Secondary Malignant Neoplasm Bone (HCC); Other [facility] Current Drug Therapy Social History Tobacco Use [...] 01/24/2022 How often do you attend [facility] or pentecostal services? Never 01/24/2022 Do you [...] and heating? Not hard at all 09/02/2022 [facility] - Occupational [...] Sex Assigned at Female 01/24/2022 7:37 PM HIRED HAND Gender Identity Female 01/24/2022 7:37 PM HIRED HAND Sexual Orientation Straight 01/24/2022 7: 37 PM HIRED HAND documented as of this encounter Last Filed [...] REQUESTING PROVIDER Blanche Monzon P.A.-C., M.S. 200 [place] [address] PRIMARY COLLABORATING PROVIDER Mc Mcknight M.D., Ph.D. [...] the vertex of the scalp. Evaluated by marzipan molder Dr. Banuelos in [place] and was treated for possible psoriasis. The lesion persisted after 6 weeks. She was then treated with UV phototherapy between September and December of 2021. September 22, 2021---December 17, 2021: Underwent biopsy of the vertex scalp lesion which revealed squamous cell carcinoma. Incisional biopsy of left level 5 lymph node also revealed squamous cell carcinoma. 12/30/2021 Biopsy/Pathology A. Skin, scalp, vertex, excisional biopsy ([id number]; 12/30/2021): Invasive poorly differentiated squamous cell carcinoma, transected at base and lateral edge of the specimen. B. Neck, left, soft tissue, biopsy ([id number]; 01/13/2022): Invasive poorly differentiated squamous cell carcinoma [...] cereal SOCIAL HISTORY Veronica Guevara lives in [place], [place], with her , Andre. Retired. PHYSICAL [...] Value Bilirubin, Direct, S <0.2 Thyroid Function [place] Collection Time: 09/19/23 10:57 AM Result Value TSH, Sensitive 2.4 RADIOLOGICAL DATA Reviewed. ASSESSMENT / PLAN #1 Squamous Cell Carcinoma Of Skin Of Scalp And Neck #2 Secondary Malignant Neoplasm Bone (HCC) #3 Other [facility] Current Drug Therapy Veronica Guevara is a [...] physicians, nurse practitioners/physician assistants, nurses and other network support administrator that specialize in this cancer. Also, reviewed [...] AM CDT Clinical Communication Virtual Review in [address] [phone] 11/01/2023 11:40 AM CDT Lab Department of Laboratory Medicine and Pathology, [facility], in [address] [phone] Remigio Frey M.D., Ph.D. [address] [place] [phone] 11/01/2023 1:40 PM CDT Office Visit Department of Oncology in [address] [phone] Blanche Monzon P.A.-C., M.S. [address] [place] [phone] 11/01/2023 2:45 PM CDT Infusion Department of Oncology in [place], [place] [address] [place] [phone] Remigio Frey M.D., Ph.D. [address] [place] [phone] 11/08/2023 9:45 AM CDT Clinical Communication Virtual Review in [address] [address] 11/10/2023 8:00 AM CDT Office Visit Department of Dermatology in [address] [phone] Emily Bell M.D. [address] [place] [phone] 11/17/2023 11:00 AM CDT Clinical Communication Virtual Review in [address] [phone] 11/21/2023 11:10 AM CDT Lab Department of Laboratory Medicine and Pathology, [facility], in [address] [address] Remigio Frey M.D., Ph.D. [address] [place] [phone] 11/21/2023 1:00 PM CDT Office Visit Department of Oncology in [place], [place] [address] [place] [phone] Mc Mcknight M.D., Ph.D. [address] [place] [phone] 11/21/2023 2:15 PM CDT Infusion Department of Oncology in [address] [address] Remigio Frey M.D., Ph.D. [address] [place] [phone] 12/11/2023 1:45 PM CDT Clinical Communication Virtual Review in [place], [place] 200 [place] [address] 12/12/2023 11:00 AM CDT Lab Department of Laboratory Medicine and Pathology, [facility], in [place], [place] [address] [place] [phone] Remigio Frey M.D., Ph.D. [address] [place] [phone] 12/12/2023 1:00 PM CDT Office Visit Department of Oncology in [address] [phone] Mc Mcknight M.D., Ph.D. [address] [place] [phone] 12/12/2023 3:00 PM CDT Infusion Department of Oncology in [place], [place] [address] [place] [phone] Remigio Frey M.D., Ph.D. [address] [place] [phone] 01/11/2024 2:00 PM HIRED HAND Appointment Department of Radiation Oncology in [address] [phone] Tammie Hooks M.D., Ph.D. [address] [place] [phone] 01/17/2024 9:00 AM HIRED HAND Clinical Communication Virtual Review in [address] [phone] 01/19/2024 2:30 PM HIRED HAND Comprehensive Visit Department of Neurology in [place], [place] [address] [place] [phone] Kory Alas M.B., Ch.B. 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) Other Phlebotomy Services Technician Current Drug Therapy Expected: 10/11/2023, Expires: 12/19/2024 documented as of this encounter Visit Diagnoses Diagnosis Squamous Cell Carcinoma Of Skin Of Scalp And Neck- Primary Secondary Malignant Neoplasm Bone (HCC) Other Phlebotomy Services Technician Current Drug Therapy Malignant Neoplasm Of Neck Squamous Cell- Primary Secondary Malignant Neoplasm Bone (HCC) Other [facility]dc Current Drug Therapy documented in this encounter Care Teams Optoelectronic Technician Relationship Specialty Start Date End Date Elsewhere, Pcp PCP - General Family Medicine 02/01/22 documented as of this encounter
--- OUTSIDE RECORDS SUMMARY | 2023-10-25 16:16 | XMS_ITS | Encounter Summary ---
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 [address] [place] [phone] Rst Onc Rogo [address] [place] [phone] Referral ID Status Reason Start Date Expiration Date V isits Requested Visits Authorized [id number] Authorized 07/28/2023 07/27/2025 99 99 Encounter Details Date Type Department Care Team (Late st Contact Info) Description 08/08/2023 3:30 PM CDT Infusion Department of Oncology in [place], [place] [address] [place] [phone] Blanche Monzon P.A.-C., M.S. [address] [place] [phone] Other Final Inspector Current Drug Therapy (Primary Dx); Secondary Malignant [...] How often do you attend chur or holiness services? Never 01/24/2022 Do you belong to any clubs o r organizations such as congregational groups, unions, fraternal or athletic groups, or [...] and heating? Not hard at all 09/02/2022 [employer] [place] of Occupat ional Health - Occupational Stress [...] Sex Assigned at Female 01/24/2022 7:37 PM BONDING AND COMPOSITE FABRICATOR Gender Identity Female 01/24/2022 7:37 PM BONDING AND COMPOSITE FABRICATOR Sexual Orientation Straight 01/24/2022 7: 37 PM BONDING AND COMPOSITE FABRICATOR documented as of this encounter Plan of Treatment Upcoming Encounters Date Type Department Care Team (Late st Contact Info) Description 10/30/2023 11:00 AM CDT Clinical Communication Virtual Review in [address] [phone] 11/01/2023 11:40 AM CDT Lab Department of Laboratory Medicine and Pathology, [facility], in [place], [place] [address] [place] [phone] Remigio Frey M.D., Ph.D. [address] [place] [phone] 11/01/2023 1:40 PM CDT Office Visit Department of Oncology in [address] [phone] Blanche Monzon P.A.-C., M.S. [address] [place] [phone] 11/01/2023 2:45 PM CDT Infusion Department of Oncology in [address] [phone] Remigio Frey M.D., Ph.D. [address] [place] [phone] 11/08/2023 9:45 AM CDT Clinical Communication Virtual Review in [address] [phone] 11/10/2023 8:00 AM CDT Office Visit Department of Dermatology in [address] [phone] Emily Bell M.D. [address] [place] [phone] 11/17/2023 11:00 AM CDT Clinical Communication Virtual Review in [address] [phone] 11/21/2023 11:10 AM CDT Lab Department of Laboratory Medicine and Pathology, [facility], in [place], [place] [address] [place] [phone] Remigio Frey M.D., Ph.D. [address] [place] [phone] 11/21/2023 1:00 PM CDT Office Visit Department of Oncology in [place], [place] [address] [place] [phone] Mc Mcknight M.D., Ph.D. [address] [place] [phone] 11/21/2023 2:15 PM CDT Infusion Department of Oncology in [place], [place] [address] [place] [phone] Remigio Frey M.D., Ph.D. [address] [place] [phone] 12/11/2023 1:45 PM CDT Clinical Communication Virtual Review in [place], [place] 200 [place] [address] 12/12/2023 11:00 AM CDT Lab Department of Laboratory Medicine and Pathology, [facility], in [place], [place] [address] [place] [phone] Remigio Frey M.D., Ph.D. [address] [place] [phone] 12/12/2023 1:00 PM CDT Office Visit Department of Oncology in [place], [place] [address] [place] [phone] Mc Mcknight M.D., Ph.D. [address] [place] [phone] 12/12/2023 3:00 PM CDT Infusion Department of Oncology in [place], [place] [address] [place] [phone] Remigio Frey M.D., Ph.D. [address] [place] [phone] 01/11/2024 2:00 PM BONDING AND COMPOSITE FABRICATOR Appointment Department of Radiation Oncology in [place], [place] [address] [place] [phone] Tammie Hooks M.D., Ph.D. [address] [place] [phone] 01/17/2024 9:00 AM BONDING AND COMPOSITE FABRICATOR Clinical Communication Virtual Review in [place], [place] 200 [place] [phone] 01/19/2024 2:30 PM BONDING AND COMPOSITE FABRICATOR Comprehensive Visit Department of Neurology in [address] [phone] Kory Alas M.B., Ch.B. 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
--- OUTSIDE RECORDS SUMMARY | 2023-10-25 16:16 | XMS_ITS | Encounter Summary ---
Author Organization [facility] Address 200 [place] [address] Care Team Providers Care County Commissioner Name Role Phone Elsewhere, Pcp Primary Care Provider Unavailabl e Reason for Visit * Reason Onset Date Comments Sx- foot vibration 08/16/2023 Encounter Details Date Type Department Care Team (Latest Contact Info) Description 08/16/2023 Clinical Communication Department of Oncology in [place], [place] [address] [place] [address] Tammie Adams, RNeyN., O.C.N. 200 [place] [phone] Sx- foot vibration Social History Tobacco Use [...] any clubs o r organizations such as gnosticism groups, unions, fraternal or athletic groups, or [...] at all 09/02/2022 [facility] of Occupat ionmo Health - Occupational Stress [...] your living situation today? I have a [facility] place to live 02/16/2023 Education Answer Date Recorded What is the highest level of school you have completed or the highest degree you have received? Bachelor's degree (e.g., BA, AB, BS) 01/24/2022 Sex and Gender Information Value Date Recorded Sex Assigned at Female 01/24/2022 7:37 PM TEST AND TURN UP TECHNICIAN Gender Identity Female 01/24/2022 7:37 PM TEST AND TURN UP TECHNICIAN Sexual Orientation Straight 01/24/2022 7: 37 PM TEST AND TURN UP TECHNICIAN documented as of this encounter Miscellaneous Notes [...] AM CDT Clinical Communication Virtual Review in [address] [address] 11/01/2023 11:40 AM CDT Lab Department of Laboratory Medicine and Pathology, [facility], in [address] [phone] Remigio Frey M.D., Ph.D. [address] [place] [phone] 11/01/2023 1:40 PM CDT Office Visit Department of Oncology in [address] [phone] Blanche Monzon P.A.-C., M.S. [address] [place] [phone] 11/01/2023 2:45 PM CDT Infusion Department of Oncology in [address] [phone] Remigio Frey M.D., Ph.D. [address] [place] [phone] 11/08/2023 9:45 AM CDT Clinical Communication Virtual Review in [place], [place] 200 [place] [address] 11/10/2023 8:00 AM CDT Office Visit Department of Dermatology in [place], [place] [address] [place] [phone] Emily Bell M.D. [address] [place] [phone] 11/17/2023 11:00 AM CDT Clinical Communication Virtual Review in [address] [address] 11/21/2023 11:10 AM CDT Lab Department of Laboratory Medicine and Pathology, [facility] in [place], [place] [address] [place] [phone] Remigio Frey M.D., Ph.D. [address] [place] [phone] 11/21/2023 1:00 PM CDT Office Visit Department of Oncology in [place], [place] [address] [place] [phone] Mc Mcknight M.D., Ph.D. [address] [place] [phone] 11/21/2023 2:15 PM CDT Infusion Department of Oncology in [place], [place] [address] [place] [phone] Remigio Frey M.D., Ph.D. [address] [place] [phone] 12/11/2023 1:45 PM CDT Clinical Communication Virtual Review in [place], [place] 200 [place] [address] 12/12/2023 11:00 AM CDT Lab Department of Laboratory Medicine and Pathology, [facility], in [address] [phone] Remigio Frey M.D., Ph.D. [address] [place] [phone] 12/12/2023 1:00 PM CDT Office Visit Department of Oncology in [address] [phone] Mc Mcknight M.D., Ph.D. [address] [place] [phone] 12/12/2023 3:00 PM CDT Infusion Department of Oncology in [address] [phone] Remigio Frey M.D., Ph.D. [address] [place] [phone] 01/11/2024 2:00 PM TEST AND TURN UP TECHNICIAN Appointment Department of Radiation Oncology in [address] [phone] Tammie Hooks M.D., Ph.D. [address] [place] [phone] 01/17/2024 9:00 AM TEST AND TURN UP TECHNICIAN Clinical Communication Virtual Review in [address] [phone] 01/19/2024 2:30 PM TEST AND TURN UP TECHNICIAN Comprehensive Visit Department of Neurology in [address] [address] Kory Aals M.B., Ch.B. [address] [place] [phone] documented as of this encounter Visit Diagnoses Not on filedocumented in this encounter Care Teams County Commissioner Relationship Specialty Start Date End Date Elsewhere, Pcp PCP - General Family Medicine 02/01/22 documented as of this encounter
--- OUTSIDE RECORDS SUMMARY | 2023-10-25 16:16 | XMS_ITS | Encounter Summary ---
Author Organization [facility] Address [address] [place] [address] Care Team Providers Care Color Room Attendant Name Role Phone Elsewhere, Pcp Primary Care Provider Unavailabl e Reason for Visit * Episode Based Medications (Routine) - Authorized Specialty Diagnoses / Procedures Referred By Contac t Referred To Contact Diagnoses Other Global Recruiter Current Drug Therapy 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 Blanche Monzon P.A.-C., M.S. [address] [place] [phone] Rst Onc Rogo [address] [place] [phone] Referral ID Status Reason Start Date Expiration Date V isits Requested Visits Authorized [id number] Authorized 07/28/2023 07/27/2025 99 99 Encounter Details Date Type Department Care Team (Late st Contact Info) Description 08/29/2023 2:30 PM CDT Infusion Department of Oncology in [place], [place] [address] [place] [phone] Blanche Monzon P.A.-C., M.S. [address] [place] [phone] Malignant Neoplasm Of Neck Squamous Cell (Primary Dx); Secondary Malignant Neoplasm Bone (HCC); Squamous Cell Carcinoma Of Skin Of Scalp And Neck; Other Global Recruiter Current Drug Therapy Social History Tobacco Use [...] How often do you attend chur or church services? Never 01/24/2022 Do you [...] and heating? Not hard at all 09/02/2022 [facility] [place] of Occupat ional Health - Occupational Stress [...] Sex Assigned at Female 01/24/2022 7:37 PM CTE TEACHER Gender Identity Female 01/24/2022 7:37 PM CTE TEACHER Sexual Orientation Straight 01/24/2022 7: 37 PM CTE TEACHER documented as of this encounter Plan of Treatment Upcoming Encounters Date Type Department Care Team (Late st Contact Info) Description 10/30/2023 11:00 AM CDT Clinical Communication Virtual Review in [address] [address] 11/01/2023 11:40 AM CDT Lab Department of Laboratory Medicine and Pathology, [facility], in [place], [place] [address] [place] [phone] Remigio Frey M.D., Ph.D. [address] [place] [phone] 11/01/2023 1:40 PM CDT Office Visit Department of Oncology in [address] [phone] Blanche Monzon P.A.-C., M.S. [address] [place] [phone] 11/01/2023 2:45 PM CDT Infusion Department of Oncology in [address] [phone] Remigio Frey M.D., Ph.D. [address] [place] [phone] 11/08/2023 9:45 AM CDT Clinical Communication Virtual Review in [address] [address] 11/10/2023 8:00 AM CDT Office Visit Department of Dermatology in [address] [phone] Emily Bell M.D. [address] [place] [phone] 11/17/2023 11:00 AM CDT Clinical Communication Virtual Review in [address] [phone] 11/21/2023 11:10 AM CDT Lab Department of Laboratory Medicine and Pathology, [facility], in [place], [place] [address] [place] [phone] Remigio Frey M.D., Ph.D. [address] [place] [phone] 11/21/2023 1:00 PM CDT Office Visit Department of Oncology in [place], [place] [address] [place] [phone] Mc Mcknight M.D., Ph.D. [address] [place] [phone] 11/21/2023 2:15 PM CDT Infusion Department of Oncology in [place], [place] [address] [place] [phone] Remigio Frey M.D., Ph.D. [address] [place] [phone] 12/11/2023 1:45 PM CDT Clinical Communication Virtual Review in [place], [place] 200 [place] [address] 12/12/2023 11:00 AM CDT Lab Department of Laboratory Medicine and Pathology, [facility], in [place], [place] [address] [place] [phone] Remigio Frey M.D., Ph.D. [address] [place] [phone] 12/12/2023 1:00 PM CDT Office Visit Department of Oncology in [place], [place] [address] [place] [phone] Mc Mcknight M.D., Ph.D. [address] [place] [phone] 12/12/2023 3:00 PM CDT Infusion Department of Oncology in [place], [place] [address] [place] [phone] Remigio Frey M.D., Ph.D. [address] [place] [phone] 01/11/2024 2:00 PM CTE TEACHER Appointment Department of Radiation Oncology in [place], [place] [address] [place] [phone] Tammie Hooks M.D., Ph.D. [address] [place] [phone] 01/17/2024 9:00 AM CTE TEACHER Clinical Communication Virtual Review in [place], [place] 200 [place] [phone] 01/19/2024 2:30 PM CTE TEACHER Comprehensive Visit Department of Neurology in [address] [phone] Kory Alas M.B., Ch.B. [address] [place] [phone] documented as of this encounter Visit Diagnoses Diagnosis Malignant Neoplasm Of Neck Squamous Cell- Primary 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 Other Global Recruiter Current Drug Therapy Malignant Neoplasm Of Neck Squamous Cell- Primary Secondary Malignant Neoplasm Bone (HCC) Other [facility] Current Drug Therapy documented in this encounter [...] mL documented in this encounter Care Teams Color Room Attendant Relationship Specialty Start Date End Date Elsewhere, Pcp PCP - General Family Medicine 02/01/22 documented as of this encounter
--- OUTSIDE RECORDS SUMMARY | 2023-10-25 16:16 | XMS_ITS | Encounter Summary ---
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 [address] [place] [phone] Rst Onc Rogo [address] [place] [phone] Referral ID Status Reason Start Date Expiration Date V isits Requested Visits Authorized [id number] Authorized 07/28/2023 07/27/2025 99 99 Encounter Details Date Type Department Care Team (Late st Contact Info) Description 08/08/2023 2:40 PM CDT Education Department of Oncology in [place], [place] [address] [place] [phone] Blanche Monzon P.A.-C., M.S. [address] [place] [phone] Janette Arango R.NNey [address] [place] [phone] Secondary Malignant Neoplasm Bone (HCC); Squamous Cell Carcinoma Of Skin Of Scalp And Neck; Other [facility] Current Drug Therapy Social History Tobacco Use [...] week 01/24/2022 How often do you attend [facility] or zoroastrian services? Never 01/24/2022 Do you [...] heating? Not hard at all 09/02/2022 [facility] [place] of Occupat ional Health - Occupational Stress [...] Sex Assigned at Female 01/24/2022 7:37 PM STRINGED INSTRUMENT ASSEMBLER Gender Identity Female 01/24/2022 7:37 PM STRINGED INSTRUMENT ASSEMBLER Sexual Orientation Straight 01/24/2022 7: 37 PM STRINGED INSTRUMENT ASSEMBLER documented as of this encounter Progress [...] CDT Clinical Communication Virtual Review in [address] [phone] 11/01/2023 11:40 AM CDT Lab Department of Laboratory Medicine and Pathology, [facility] in [address] [phone] Remigio Frey M.D., Ph.D. [address] [place] [phone] 11/01/2023 1:40 PM CDT Office Visit Department of Oncology in [address] [phone] Blanche Monzon P.A.-C., M.S. [address] [place] [phone] 11/01/2023 2:45 PM CDT Infusion Department of Oncology in [address] [phone] Remigio Frey M.D., Ph.D. [address] [place] [phone] 11/08/2023 9:45 AM CDT Clinical Communication Virtual Review in [place], [place] 200 [place] [address] 11/10/2023 8:00 AM CDT Office Visit Department of Dermatology in [place], [place] [address] [place] [phone] Emily Bell M.D. [address] [place] [phone] 11/17/2023 11:00 AM CDT Clinical Communication Virtual Review in [place], [place] 200 [place] [address] 11/21/2023 11:10 AM CDT Lab Department of Laboratory Medicine and Pathology, [facility] in [place], [place] [address] [place] [phone] Remigio Frey M.D., Ph.D. [address] [place] [phone] 11/21/2023 1:00 PM CDT Office Visit Department of Oncology in [place], [place] [address] [place] [phone] Mc Mcknight M.D., Ph.D. [address] [place] [phone] 11/21/2023 2:15 PM CDT Infusion Department of Oncology in [place], [place] [address] [place] [phone] Remigio Frey M.D., Ph.D. [address] [place] [phone] 12/11/2023 1:45 PM CDT Clinical Communication Virtual Review in [place], [place] 200 [place] [address] 12/12/2023 11:00 AM CDT Lab Department of Laboratory Medicine and Pathology, [facility], in [place], [place] [address] [place] [phone] Remigio Frey M.D., Ph.D. [address] [place] [phone] 12/12/2023 1:00 PM CDT Office Visit Department of Oncology in [address] [phone] Mc Mcknight M.D., Ph.D. [address] [place] [phone] 12/12/2023 3:00 PM CDT Infusion Department of Oncology in [address] [phone] Remigio Frey M.D., Ph.D. [address] [place] [phone] 01/11/2024 2:00 PM STRINGED INSTRUMENT ASSEMBLER Appointment Department of Radiation Oncology in [address] [phone] Tammie Hooks M.D., Ph.D. [address] [place] [phone] 01/17/2024 9:00 AM STRINGED INSTRUMENT ASSEMBLER Clinical Communication Virtual Review in [address] [phone] 01/19/2024 2:30 PM STRINGED INSTRUMENT ASSEMBLER Comprehensive Visit Department of Neurology in [address] [phone] Kory Alas M.B., Ch.B. 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
--- OUTSIDE RECORDS SUMMARY | 2023-10-25 16:16 | XMS_ITS | Encounter Summary ---
Author Organization [facility] Address [address] [place] [address] Care Team Providers Care Field Superintendent Name Role Phone Elsewhere, Pcp Primary Care Provider Unavailabl e Reason for Visit * Reason Comments Med Refill Encounter Details Date Type Department Care Team (Late st Contact Info) Description 08/16/2023 Refill Department of Radiation Oncology in [place], [place] [address] [place] [phone] Tammie Hooks M.D., Ph.D. [address] [place] [phone] Med Refill Social History Tobacco Use Types [...] all 09/02/2022 [facility] - Occupational Stress Questionnaire Answer Date [...] Sex Assigned at Female 01/24/2022 7:37 PM DIRECT CARE STAFFER Gender Identity Female 01/24/2022 7:37 PM DIRECT CARE STAFFER Sexual Orientation Straight 01/24/2022 7: 37 PM DIRECT CARE STAFFER documented as of this encounter Miscellaneous Notes * Telephone Encounter - Tammie Hooks M.D., Ph.D. - 08/16/2023 10:47 AM CDT From: Veronica Guevara To: Office of Karina Garcia APRN, C.NPiero, M.S.N. Sent: 08/15/2023 4:48 PM CDT Subject: Medication Renewal Request Refills have been requested for the following medications: levothyroxine (Synthroid) 50 mcg tablet [Karina Garcia APRN, C.N.[place], M.S.N.] Preferred pharmacy: [address] Delivery method: Pickup documented in this encounter Plan of Treatment Upcoming Encounters Date Type Department Care Team (Late st Contact Info) Description 10/30/2023 11:00 AM CDT Clinical Communication Virtual Review in [place], [place] 200 [place] [address] 11/01/2023 11:40 AM CDT Lab Department of Laboratory Medicine and Pathology, [facility], in [place], [place] [address] [place] [phone] Remigio Frey M.D., Ph.D. [address] [place] [phone] 11/01/2023 1:40 PM CDT Office Visit Department of Oncology in [address] [phone] Blanche Monzon P.A.-C., M.S. [address] [place] [phone] 11/01/2023 2:45 PM CDT Infusion Department of Oncology in [place], [place] [address] [place] [phone] Remigio Frey M.D., Ph.D. [address] [place] [phone] 11/08/2023 9:45 AM CDT Clinical Communication Virtual Review in [address] [phone] 11/10/2023 8:00 AM CDT Office Visit Department of Dermatology in [address] [phone] Emily Bell M.D. [address] [place] [phone] 11/17/2023 11:00 AM CDT Clinical Communication Virtual Review in [address] [phone] 11/21/2023 11:10 AM CDT Lab Department of Laboratory Medicine and Pathology, [facility], in [place], [place] [address] [place] [phone] Remigio Frey M.D., Ph.D. [address] [place] [phone] 11/21/2023 1:00 PM CDT Office Visit Department of Oncology in [place], [place] [address] [place] [phone] Mc Mcknight M.D., Ph.D. [address] [place] [phone] 11/21/2023 2:15 PM CDT Infusion Department of Oncology in [place], [place] [address] [place] [phone] Remigio Frey M.D., Ph.D. [address] [place] [phone] 12/11/2023 1:45 PM CDT Clinical Communication Virtual Review in [place], [place] 200 [place] [address] 12/12/2023 11:00 AM CDT Lab Department of Laboratory Medicine and Pathology, [facility], in [place], [place] [address] [place] [phone] Remigio Frey M.D., Ph.D. [address] [place] [phone] 12/12/2023 1:00 PM CDT Office Visit Department of Oncology in [place], [place] [address] [place] [phone] Mc Mcknight M.D., Ph.D. [address] [place] [phone] 12/12/2023 3:00 PM CDT Infusion Department of Oncology in [place], [place] [address] [place] [phone] Remigio Frey M.D., Ph.D. [address] [place] [phone] 01/11/2024 2:00 PM DIRECT CARE STAFFER Appointment Department of Radiation Oncology in [place], [place] [address] [place] [phone] Tammie Hooks M.D., Ph.D. [address] [place] [phone] 01/17/2024 9:00 AM DIRECT CARE STAFFER Clinical Communication Virtual Review in [place], [place] 200 [place] [phone] 01/19/2024 2:30 PM DIRECT CARE STAFFER Comprehensive Visit Department of Neurology in [place], [place] [address] [place] [phone] Kory Alas M.B., Ch.B. [address] [place] [phone] documented as of this encounter Visit Diagnoses Not on filedocumented in this encounter Care Teams Field Superintendent Relationship Specialty Start Date End Date Elsewhere, Pcp PCP - General Family Medicine 02/01/22 documented as of this encounter
--- OUTSIDE RECORDS SUMMARY | 2023-10-25 16:16 | XMS_ITS | Encounter Summary ---
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 [address] [place] [phone] [facility] [address] [place] [phone] Referral ID Status Reason Start Date Expiration Date V isits Requested Visits Authorized [id number] Authorized 07/28/2023 07/27/2025 99 99 Encounter Details Date Type Department Care Team (Late st Contact Info) Description 09/19/2023 2:00 PM CDT Infusion Department of Oncology in [place], [place] [address] [place] [phone] Blanche Monzon P.A.-C., M.S. [address] [place] [phone] Malignant Neoplasm Of Neck Squamous Cell (Primary Dx); Secondary Malignant Neoplasm Bone (HCC); Squamous Cell Carcinoma Of Skin Of Scalp And Neck; Other Mold Shaker Current Drug Therapy Social History Tobacco Use [...] How often do you attend chur or confucianist services? Never 01/24/2022 Do you [...] and heating? Not hard at all 09/02/2022 [facility] of Occupat ional Health - Occupational Stress [...] Sex Assigned at Female 01/24/2022 7:37 PM DISH MACHINE OPERATOR Gender Identity Female 01/24/2022 7:37 PM DISH MACHINE OPERATOR Sexual Orientation Straight 01/24/2022 7: 37 PM DISH MACHINE OPERATOR documented as of this encounter Plan of Treatment Upcoming Encounters Date Type Department Care Team (Late st Contact Info) Description 10/30/2023 11:00 AM CDT Clinical Communication Virtual Review in [address] [phone] 11/01/2023 11:40 AM CDT Lab Department of Laboratory Medicine and Pathology, [facility], in [place], [place] [address] [place] [phone] Remigio Frey M.D., Ph.D. [address] [place] [phone] 11/01/2023 1:40 PM CDT Office Visit Department of Oncology in [address] [phone] Blanche Monzon P.A.-C., M.S. [address] [place] [phone] 11/01/2023 2:45 PM CDT Infusion Department of Oncology in [address] [phone] Remigio Frey M.D., Ph.D. [address] [place] [phone] 11/08/2023 9:45 AM CDT Clinical Communication Virtual Review in [address] [phone] 11/10/2023 8:00 AM CDT Office Visit Department of Dermatology in [address] [phone] Emily Bell M.D. [address] [place] [phone] 11/17/2023 11:00 AM CDT Clinical Communication Virtual Review in [address] [phone] 11/21/2023 11:10 AM CDT Lab Department of Laboratory Medicine and Pathology, [facility], in [place], [place] [address] [place] [phone] Remigio Frey M.D., Ph.D. [address] [place] [phone] 11/21/2023 1:00 PM CDT Office Visit Department of Oncology in [place], [place] [address] [place] [phone] Mc Mcknight M.D., Ph.D. [address] [place] [phone] 11/21/2023 2:15 PM CDT Infusion Department of Oncology in [place], [place] [address] [place] [phone] Remigio Frey M.D., Ph.D. [address] [place] [phone] 12/11/2023 1:45 PM CDT Clinical Communication Virtual Review in [place], [place] 200 [place] [address] 12/12/2023 11:00 AM CDT Lab Department of Laboratory Medicine and Pathology, [facility], in [place], [place] [address] [place] [phone] Remigio Frey M.D., Ph.D. [address] [place] [phone] 12/12/2023 1:00 PM CDT Office Visit Department of Oncology in [place], [place] [address] [place] [phone] Mc Mcknight M.D., Ph.D. [address] [place] [phone] 12/12/2023 3:00 PM CDT Infusion Department of Oncology in [place], [place] [address] [place] [phone] Remigio Frey M.D., Ph.D. [address] [place] [phone] 01/11/2024 2:00 PM DISH MACHINE OPERATOR Appointment Department of Radiation Oncology in [place], [place] [address] [place] [phone] Tammie Hooks M.D., Ph.D. [address] [place] [phone] 01/17/2024 9:00 AM DISH MACHINE OPERATOR Clinical Communication Virtual Review in [place], [place] 200 [place] [phone] 01/19/2024 2:30 PM DISH MACHINE OPERATOR Comprehensive Visit Department of Neurology in [address] [phone] Kory Alas M.B., Ch.B. 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
--- OUTSIDE RECORDS SUMMARY | 2023-10-25 16:16 | XMS_ITS | Encounter Summary ---
Author Organization [facility] Address [address] [place] [address] Care Team Providers Care Early Head Start Teacher Name Role Phone Elsewhere, Pcp Primary Care Provider Unavailabl e Reason for Visit * Reason Onset Date Comments Blood Pressure 10/09/2023 Encounter Details Date Type Department Care Team (Latest Contact Info) Description 10/09/2023 10:45 AM CDT Clinical Communication Virtual Review in [place], [place] 200 [place] [phone] Blood Pressure Social History Tobacco Use Types [...] often do you attend chur ch or zoroastrianism services? Never 01/24/2022 Do you [...] heating? Not hard at all 09/02/2022 [facility] of Occupat ional Health - [...] your living situation today? I have a [facility] place to live 02/16/2023 Education Answer Date Recorded What is the highest level of school you have completed or the highest degree you have received? Bachelor's degree (e.g., BA, AB, BS) 01/24/2022 Sex and Gender Information Value Date Recorded Sex Assigned at Female 01/24/2022 7:37 PM BUTTER MAKER Gender Identity Female 01/24/2022 7:37 PM BUTTER MAKER Sexual Orientation Straight 01/24/2022 7: 37 PM BUTTER MAKER documented as of this encounter Plan of Treatment Upcoming Encounters Date Type Department Care Team (Late st Contact Info) Description 10/30/2023 11:00 AM CDT Clinical Communication Virtual Review in [place], [place] 200 [place] [address] 11/01/2023 11:40 AM CDT Lab Department of Laboratory Medicine and Pathology, [facility], in [place], [place] [address] [place] [phone] Remigio Frey M.D., Ph.D. [address] [place] [phone] 11/01/2023 1:40 PM CDT Office Visit Department of Oncology in [place], [place] [address] [place] [phone] Blanche Monzon P.A.-C., M.S. [address] [place] [phone] 11/01/2023 2:45 PM CDT Infusion Department of Oncology in [place], [place] [address] [place] [phone] Remigio Frey M.D., Ph.D. [address] [place] [phone] 11/08/2023 9:45 AM CDT Clinical Communication Virtual Review in [place], [place] 200 [place] [address] 11/10/2023 8:00 AM CDT Office Visit Department of Dermatology in [address] [phone] Emily Bell M.D. [address] [place] [phone] 11/17/2023 11:00 AM CDT Clinical Communication Virtual Review in [address] [phone] 11/21/2023 11:10 AM CDT Lab Department of Laboratory Medicine and Pathology, [facility] in [address] [phone] Remigio Frey M.D., Ph.D. [address] [place] [phone] 11/21/2023 1:00 PM CDT Office Visit Department of Oncology in [address] [phone] Mc Mcknight M.D., Ph.D. [address] [place] [phone] 11/21/2023 2:15 PM CDT Infusion Department of Oncology in [address] [phone] Remigio Frey M.D., Ph.D. [address] [place] [phone] 12/11/2023 1:45 PM CDT Clinical Communication Virtual Review in [place], [place] 200 [place] [address] 12/12/2023 11:00 AM CDT Lab Department of Laboratory Medicine and Pathology, [facility], in [place], [place] [address] [place] [phone] Remigio Frey M.D., Ph.D. [address] [place] [phone] 12/12/2023 1:00 PM CDT Office Visit Department of Oncology in [place], [place] [address] [place] [phone] Mc Mcknight M.D., Ph.D. [address] [place] [phone] 12/12/2023 3:00 PM CDT Infusion Department of Oncology in [place], [place] [address] [place] [phone] Remigio Frey M.D., Ph.D. [address] [place] [phone] 01/11/2024 2:00 PM BUTTER MAKER Appointment Department of Radiation Oncology in [place], [place] [address] [place] [phone] Tammie Hooks M.D., Ph.D. [address] [place] [phone] 01/17/2024 9:00 AM BUTTER MAKER Clinical Communication Virtual Review in [address] [phone] 01/19/2024 2:30 PM BUTTER MAKER Comprehensive Visit Department of Neurology in [place], [place] [address] [place] [address] Kory Alas M.B., Ch.B. [address] [place] [phone] documented as of this encounter Visit Diagnoses Not on filedocumented in this encounter Care Teams Early Head Start Teacher Relationship Specialty Start Date End Date Elsewhere, Pcp PCP - General Family Medicine 02/01/22 documented as of this encounter
--- OUTSIDE RECORDS SUMMARY | 2023-10-25 16:17 | XMS_ITS | Encounter Summary ---
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 200 [place] [address] [facility] Referral ID Status Reason Start Date Expiration Date Visits Re quested Visits Authorized [id number] Closed 07/24/2023 2024 1 1 Encounter Details Date Type Department Care Team (Latest Contact Info) Description 07/27/2023 12:04 PM CDT - 07/27/2023 11:59 PM CDT Hospital Encounter Department of Radiology, [facility] in [place], [place] [address] [place] [address] Woody Navarro M.D. [address] [place] [address] Squamous Cell Carcinoma Of Skin Of Scalp [...] week 01/24/2022 How often do you attend [facility] or hinduism services? Never 01/24/2022 Do you [...] and heating? Not hard at all 09/02/2022 [facility] [place] of Occupat ional Health - Occupational Stress [...] your living situation today? [facility] 02/16/2023 Education Answer Date Recorded What is the highest level of school you have completed or the highest degree you have received? Bachelor's degree (e.g., BA, AB, BS) 01/24/2022 Sex and Gender Information Value Date Recorded Sex Assigned at Female 01/24/2022 7:37 PM WATERWORKS EMPLOYEE Gender Identity Female 01/24/2022 7:37 PM WATERWORKS EMPLOYEE Sexual Orientation Straight 01/24/2022 7: 37 PM WATERWORKS EMPLOYEE documented as of this encounter Medications at [...] AM CDT Clinical Communication Virtual Review in [address] [phone] 11/01/2023 11:40 AM CDT Lab Department of Laboratory Medicine and Pathology, [facility], in [address] [phone] Remigio Frey M.D., Ph.D. [address] [place] [phone] 11/01/2023 1:40 PM CDT Office Visit Department of Oncology in [address] [phone] Blanche Monzon P.A.-C., M.S. [address] [place] [phone] 11/01/2023 2:45 PM CDT Infusion Department of Oncology in [address] [phone] Remigio Frey M.D., Ph.D. [address] [place] [phone] 11/08/2023 9:45 AM CDT Clinical Communication Virtual Review in [address] [phone] 11/10/2023 8:00 AM CDT Office Visit Department of Dermatology in [address] [phone] Emily Bell M.D. [address] [place] [phone] 11/17/2023 11:00 AM CDT Clinical Communication Virtual Review in [place], [place] 200 [place] [address] 11/21/2023 11:10 AM CDT Lab Department of Laboratory Medicine and Pathology, [facility], in [place], [place] [address] [place] [phone] Remigio Frey M.D., Ph.D. [address] [place] [phone] 11/21/2023 1:00 PM CDT Office Visit Department of Oncology in [place], [place] [address] [place] [phone] Mc Mcknight M.D., Ph.D. [address] [place] [phone] 11/21/2023 2:15 PM CDT Infusion Department of Oncology in [place], [place] [address] [place] [phone] Remigio Frey M.D., Ph.D. [address] [place] [phone] 12/11/2023 1:45 PM CDT Clinical Communication Virtual Review in [address] [phone] 12/12/2023 11:00 AM CDT Lab Department of Laboratory Medicine and Pathology, [facility], in [place], [place] [address] [place] [phone] Remigio Frey M.D., Ph.D. [address] [place] [phone] 12/12/2023 1:00 PM CDT Office Visit Department of Oncology in [place], [address] [phone] Mc Mcknight M.D., Ph.D. [address] [place] [phone] 12/12/2023 3:00 PM CDT Infusion Department of Oncology in [address] [phone] Remigio Frey M.D., Ph.D. [address] [place] [phone] 01/11/2024 2:00 PM WATERWORKS EMPLOYEE Appointment Department of Radiation Oncology in [address] [phone] Tammie Hooks M.D., Ph.D. [address] [place] [phone] 01/17/2024 9:00 AM WATERWORKS EMPLOYEE Clinical Communication Virtual Review in [address] [phone] 01/19/2024 2:30 PM WATERWORKS EMPLOYEE Comprehensive Visit Department of Neurology in [address] [phone] Kory Alas M.B., Ch.B. [address] [place] [phone] documented as of this encounter Procedures Procedure [...] the current study). The area of decreased H2tjoqeg signal involving the underlying left greater than [...] Secondary Malignant Neoplasm Bone (HCC) Other Manager Intensive Care Unit Current Drug Therapy documented in this encounter [...] mL documented in this encounter Care Teams Local Hazmat Driver Relationship Specialty Start Date End Date Elsewhere, Pcp PCP - General Family Medicine 02/01/22 documented as of this encounter
--- OUTSIDE RECORDS SUMMARY | 2023-10-25 16:17 | XMS_ITS | Encounter Summary ---
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 [address] [place] [address] 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 [address] [place] [phone] 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 [address] [place] [phone] 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 [address] [place] [phone] [facility] Referral ID Status Reason Start Date Expiration Date Visits Re quested Visits Authorized [id number] Closed 07/28/2023 07/27/2024 1 1 * Outpatient (Routine) Specialty Diagnoses / Procedures Referred By Contac t Referred To Contact Oncology Blanche Monzon P.A.-C., M.S. [address] [place] [phone] Mc Mcknight M.D., Ph.D. [address] [place] [phone] Referral ID Status Reason Start Date Expiration Date Visits Re quested Visits Authorized * Outpatient (Routine) Specialty Diagnoses / Procedures Referred By Contac t Referred To Contact Oncology Blanche Monzon P.A.-C., M.S. [address] [place] [phone] [facility] Referral ID Status Reason Start Date Expiration Date Visits Re quested Visits Authorized Scheduling Instructions Juan Luis Monzon * Outpatient (Routine) Specialty Diagnoses / Procedures Referred By Contac t Referred To Contact Oncology Blanche Monzon P.A.-C., M.S. [address] [place] [phone] [facility] Referral ID Status Reason Start Date Expiration Date Visits Re quested Visits Authorized Scheduling Instructions Juan Luis Monzon * Outpatient (Routine) Specialty Diagnoses / Procedures Referred By Contac t Referred To Contact Oncology Blanche Monzon P.A.-C., M.S. [address] [place] [phone] Blanche Monzon P.A.-C., M.S. [address] [place] [phone] Referral ID Status Reason Start Date Expiration Date Visits Re quested Visits Authorized * Specialty Diagnoses / Procedures Referred By Ryan cronin Referred To Contact Blanche Monzon P.A.-C., M.S. [address] [place] [phone] [facility] Referral ID Status Reason Start Date Expiration Date Visits Re quested Visits Authorized Reason for Visit * Outpatient (Routine) - Closed Specialty Diagnoses / Procedures Referred By Ryan cronin Referred To Contact Oncology Woody Navarro M.D. [address] [place] [phone] [facility] Referral ID Status Reason Start Date Expiration Date Visits Re quested Visits Authorized [id number] Closed 07/14/2023 01/12/2025 1 1 Encounter Details Date Type Department Care Team (Late st Contact Info) Description 07/28/2023 9:20 AM CDT Telemedicine Department of Oncology in [place], [place] [address] [place] [phone] Blanche Monzon P.A.-C., M.S. [address] [place] [phone] Squamous Cell Carcinoma Of Skin Of Scalp And Neck (Primary Dx); Secondary Malignant Neoplasm Bone (HCC); Other Custodial Current Drug Therapy; Psoriasis Social History Tobacco [...] often do you attend chur ch or hindu services? Never 01/24/2022 Do you belong to any clubs o r organizations such as mormon groups, unions, fraternal or athletic groups, or [...] hard at all 09/02/2022 [facility] - Occupational Stress [...] your living situation today? I have a [facility] place to live 02/16/2023 Education Answer Date Recorded What is the highest level of school you have completed or the highest degree you have received? Bachelor's degree (e.g., BA, AB, BS) 01/24/2022 Sex and Gender Information Value Date Recorded Sex Assigned at Female 01/24/2022 7:37 PM [employer] Gender Identity Female 01/24/2022 7:37 PM [employer] Sexual Orientation Straight 01/24/2022 7: 37 PM [employer] documented as of this encounter Progress Notes * Blanche Monzon P.A.-C., M.S. - 07/28/2023 9:20 AM CDT SUBJECTIVE REQUESTING PROVIDER Woody Navarro M.D. [address] [place] [phone] PRIMARY COLLABORATING PROVIDER Mc Mcknight M.D., Ph.D. Blanche Moznon P.A.-C., M.S. COLLABORATING PROVIDER TODAY Woody Navarro [...] the vertex of the scalp. Evaluated by manager hiv Dr. Banuelos in [place] and was treated for possible psoriasis. The lesion persisted after 6 weeks. She was then treated with UV phototherapy between September and December of 2021. September 22, 2021---December 17, 2021: Underwent biopsy of the vertex scalp lesion which revealed squamous cell carcinoma. Incisional biopsy of left level 5 lymph node also revealed squamous cell carcinoma. 12/30/2021 Biopsy/Pathology A. Skin, scalp, vertex, excisional biopsy ([id number] and B; 12/30/2021): Invasive poorly differentiated squamous cell carcinoma, transected at base and lateral edge of the specimen. B. Neck, left, soft tissue, biopsy ([id number]; 01/13/2022): Invasive poorly differentiated squamous cell carcinoma [...] cereal SOCIAL HISTORY Veronica Guevara lives in [place], [place], with her spouse, Andre. PHYSICAL EXAMINATION [...] Secondary Malignant Neoplasm Bone (HCC) #3 Other Electronics Technology Instructor Current Drug Therapy #4 Psoriasis Veronica Guevara [...] physicians, nurse practitioners/physician assistants, nurses and other learning support teacher that specialize in this cancer. Also, reviewed the importance of maintaining ongoing care with local oncology team and primary care physician. documented in this encounter Plan of Treatment Upcoming Encounters Date Type Department Care Team (Late st Contact Info) Description 10/30/2023 11:00 AM CDT Clinical Communication Virtual Review in [place], [place] 200 [place] [phone] 11/01/2023 11:40 AM CDT Lab Department of Laboratory Medicine and Pathology, [facility] in [place], [place] [address] [place] [phone] Remigio Frey M.D., Ph.D. [address] [place] [phone] 11/01/2023 1:40 PM CDT Office Visit Department of Oncology in [place], [place] [address] [place] [phone] Blnache Monzon P.A.-C., M.S. [address] [place] [phone] 11/01/2023 2:45 PM CDT Infusion Department of Oncology in [place], [place] [address] [place] [phone] Remigio Frey M.D., Ph.D. [address] [place] [phone] 11/08/2023 9:45 AM CDT Clinical Communication Virtual Review in [address] [phone] 11/10/2023 8:00 AM CDT Office Visit Department of Dermatology in [place], [place] [address] [place] [phone] Emily Bell M.D. [address] [place] [phone] 11/17/2023 11:00 AM CDT Clinical Communication Virtual Review in [address] [phone] 11/21/2023 11:10 AM CDT Lab Department of Laboratory Medicine and Pathology, [facility], in [place], [place] [address] [place] [phone] Remigio Frey M.D., Ph.D. [address] [place] [phone] 11/21/2023 1:00 PM CDT Office Visit Department of Oncology in [place], [place] [address] [place] [phone] Mc Mcknight M.D., Ph.D. [address] [place] [phone] 11/21/2023 2:15 PM CDT Infusion Department of Oncology in [place], [place] [address] [place] [phone] Remigio Frey M.D., Ph.D. [address] [place] [phone] 12/11/2023 1:45 PM CDT Clinical Communication Virtual Review in [place], [place] 200 [place] [address] 12/12/2023 11:00 AM CDT Lab Department of Laboratory Medicine and Pathology, [facility], in [address] [phone] Remigio Frey M.D., Ph.D. [address] [place] [phone] 12/12/2023 1:00 PM CDT Office Visit Department of Oncology in [place], [place] [address] [place] [phone] Mc Mcknight M.D., Ph.D. [address] [place] [phone] 12/12/2023 3:00 PM CDT Infusion Department of Oncology in [place], [place] [address] [place] [phone] Remigio Frey M.D., Ph.D. [address] [place] [phone] 01/11/2024 2:00 PM [employer] Appointment Department of Radiation Oncology in [place], [place] [address] [place] [phone] Tammie Hooks M.D., Ph.D. [address] [place] [phone] 01/17/2024 9:00 AM [employer] Clinical Communication Virtual Review in [place], [place] 200 [place] [phone] 01/19/2024 2:30 PM [employer] Comprehensive Visit Department of Neurology in [place], [place] [address] [place] [phone] Kory Alas M.B., Ch.B. [address] [place] [phone] Scheduled Referrals Name Type Priority Associated Diagnoses Orde r Schedule Oncology - Chemo education visit (clinic) Outpatient Referral Routine 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 Other Electronics Technology Instructor Current Drug Therapy Expected: 08/07/2023, Expires: 08/06/2024 Oncology office visit (clinic) Outpatient Referral Routine 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 Other Custodial Current Drug Therapy Expected: 08/08/2023, Expires: 11/07/2024 Oncology office visit (clinic) Outpatient Referral Routine 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 Other Electronics Technology Instructor Current Drug Therapy Expected: 08/29/2023, Expires: 08/28/2024 Oncology office visit (clinic) Outpatient Referral Routine 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 Other Custodial Current Drug Therapy Expected: 09/19/2023, Expires: 09/18/2024 Oncology office visit (clinic) Outpatient Referral Routine Other Custodial Current Drug Therapy 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 Expected: 10/10/2023, Expires: 10/09/2024 documented as of this encounter Results * MR Brain without and with IV Contrast (10/11/2023 8:50 AM CDT) Anatomical Region Laterality Modality Head, Brain, Neuroradiology RST LOS, Neuroradiology [facility], Neuroradiology FLA LOS N/A Magnetic Resonance Impressions [...] correlation with direct visualization. Blanche Monzon P.A.-C. [place] IMG MRI PROCEDURES * CT Abdomen Pelvis [...] IMG CT P ROCEDURES * Thyroid Function Turner (10/11/2023 6:41 AM CDT) TSH, Sensitive 3.9 0.3 - 4.2 mIU/L 10/11/2023 7:51 AM CDT DTL Blood (Blood, Venous) 10/11/2023 6:41 AM CDT 10/11/2023 7:20 AM CDT Blanche Monzon P.A.-C. M.S. LAB BLOO D ADD-ON Performing Organization Address City/[facility] Co de Phone Number [facility] 200 [place] [address], [facility] 200 [place] [address] * Bilirubin, Direct (10/11/2023 6:41 AM CDT) Bilirubin, Direct, S <0.2 0.0 - 0.3 mg/dL 10/11/2023 7:51 AM CDT DTL Blood (Blood, Venous) 10/11/2023 6:41 AM CDT 10/11/2023 7:20 AM CDT Blanche Monzon P.A.-C., M.S. LAB BLOO D ADD-ON Performing Organization Address [facility] Co de Phone Number [facility] [address] [place] [address], [facility] 200 [place] [address] * Comprehensive Metabolic Panel (10/11/2023 6:41 AM CDT) Potassium, S 4.0 3.6 - 5.2 mmol/L [...] M.S. LAB BLOO D ADD-ON [facility] [address] [place] [address], [facility] [address] [place] [address] * (ABNORMAL) CBC with Differential, Blood (10/11/2023 [...] 10/11/2023 7:05 AM CDT Blanche Monzon P.A.-C. M.S. LAB BLOO D ADD-ON [facility] [address] [place] [address], [facility] DTL [facility] [address] [place] [address] [facility] [address] [place] [address] * Thyroid Function Turner (09/19/2023 10:57 AM CDT) [facility] TSH, Sensitive 2.4 0.3 - 4.2 mIU/L 09/19/2023 12:02 PM CDT DTL Blood (Blood, Venous) 09/19/2023 10:57 AM CDT 09/19/2023 11:27 AM CDT Blanche Monzon P.A.-C., M.S. LAB BLOO D ADD-ON Performing Organization Address City/[facility]/ZIP Co de Phone Number [facility] [address] [place] [address], [facility] 200 [place] [address] * Bilirubin, Direct (09/19/2023 10:57 AM CDT) Bilirubin, Direct, S <0.2 0.0 - 0.3 mg/dL 09/19/2023 12:02 PM CDT DTL Blood (Blood, Venous) 09/19/2023 10:57 AM CDT 09/19/2023 11:27 AM CDT Blanche Monzon P.A.-C., M.S. LAB BLOO D ADD-ON Performing Organization Address City/[facility] Co de Phone Number [facility] [address] [place] [address], [facility] [address] [place] [address] * Comprehensive Metabolic Panel (09/19/2023 10:57 AM [...] CDT 09/19/2023 11:27 AM CDT Blanche Monzon P.A.-C. [place] LAB BLOO D ADD-ON [facility] [address] [place] [address], [facility] [address] [place] [address] * (ABNORMAL) CBC with Differential, Blood (09/19/2023 [...] 09/19/2023 11:09 AM CDT Blanche Monzon P.A.-C. [place] LAB YAMILETH Almanza ADD-ON [facility] [address] [place] [address], [facility] DTL [facility] [address] [place] [address] DHPM [facility] [address] [place] [address] * Thyroid Function Turner (08/29/2023 11:30 AM CDT) TSH, Sensitive 0.3 0.3 - 4.2 mIU/L 08/29/2023 12:33 PM CDT DTL Blood (Blood, Venous) 08/29/2023 11:30 AM CDT 08/29/2023 12:01 PM CDT Blanche Monzon P.A.-C., M.S. LAB BLOO D ADD-ON Performing Organization Address City/[facility]/ZIP Co de Phone Number [facility] [address] [place] [address] * Bilirubin, Direct (08/29/2023 11:30 AM CDT) Bilirubin, Direct, S <0.2 0.0 - 0.3 mg/dL 08/29/2023 12:33 PM CDT DTL Blood (Blood, Venous) 08/29/2023 11:30 AM CDT 08/29/2023 12:01 PM CDT Blanche Monzon P.A.-C., M.S. LAB BLOO D ADD-ON Performing Organization Address City/[facility]/ZIP Co de Phone Number [facility] [address] [place] [address] * Comprehensive Metabolic Panel (08/29/2023 11:30 AM [...] PM CDT Blanche Monzon P.A.-C., M.S. LAB YAMILETH Almanza ADD-ON [facility] [address] [place] [address], [facility] DTL [facility] [address] [place] [address] * (ABNORMAL) CBC with Differential, Blood (08/29/2023 [...] CDT Blanche Monzon P.A.-C. M.S. LAB YAMILETH Almanza ADD-ON [facility] [address] [place] [address], [facility] [address] [place] [address] [facility] [address] [place] [address] * Thyroid Function Turner (08/08/2023 11:12 AM CDT) TSH, Sensitive 1.6 0.3 - 4.2 mIU/L 08/08/2023 12:06 PM CDT DTL Blood (Blood, Venous) 08/08/2023 11:12 AM CDT 08/08/2023 11:35 AM CDT Blanche Monzon P.A.-C., M.S. LAB BLOO D ADD-ON [facility] [address] [place] [address], [facility] [address] [place] [address] * Bilirubin, Direct (08/08/2023 11:12 AM CDT) Bilirubin, Direct, S <0.2 0.0 - 0.3 mg/dL 08/08/2023 12:06 PM CDT DTL Blood (Blood, Venous) 08/08/2023 11:12 AM CDT 08/08/2023 11:35 AM CDT Blanche Monzon P.A.-C., M.S. LAB BLOO D ADD-ON [facility] [address] [place] [address], [facility] [address] [place] [address] * Comprehensive Metabolic Panel (08/08/2023 11:12 AM [...] Monzon P.A.-C., M.S. LAB BLOO D ADD-ON [facility] [address] [place] [address], [facility] DTL [facility] [address] [place] [address] * (ABNORMAL) CBC with Differential, Blood (08/08/2023 [...] CDT 08/08/2023 11:19 AM CDT Blanche Monzon P.A.-C., M.S. LAB YAMILETH Almanza ADD-ON [facility] [address] [place] [address], [place] DTL [facility] [address] [place] [address] [facility] [address] [place] [address] documented in this encounter Visit Diagnoses Diagnosis Squamous Cell Carcinoma Of Skin Of Scalp And Neck- Primary Secondary Malignant Neoplasm Bone (HCC) Other Electronics Technology Instructor Current Drug Therapy Psoriasis Squamous Cell Carcinoma Of Skin Of Scalp And Neck Secondary Malignant Neoplasm Bone (HCC) Other Custodial Current Drug Therapy Squamous Cell Carcinoma Of Skin Of Scalp And Neck Secondary Malignant Neoplasm Bone (HCC) Other Custodial Current Drug Therapy Malignant Neoplasm Of Neck Squamous Cell- Primary Secondary Malignant Neoplasm Bone (HCC) Other Electronics Technology Instructor Current Drug Therapy documented in this encounter Care Teams Revenue Tax Specialist Relationship Specialty Start Date End Date Elsewhere, Pcp PCP - General Family Medicine 02/01/22 documented as of this encounter
--- OUTSIDE RECORDS SUMMARY | 2023-10-25 16:17 | XMS_ITS | Encounter Summary ---
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 [address] [place] [address] [facility] Referral ID Status Reason Start Date Expiration Date Visits Re quested Visits Authorized [id number] Closed 07/24/2023 2024 1 1 Encounter Details Date Type Department Care Team (Late st Contact Info) Description 07/24/2023 Orders Only Department of Oncology in [place], [place] [address] [place] [phone] Woody Navarro M.D. [address] [place] [phone] Squamous Cell Carcinoma Of Skin [...] and heating? Not hard at all 09/02/2022 [facility] [place] [facility] - Occupational Stress [...] your living situation today? I have a [employer] [facility] to live 02/16/2023 Education Answer Date Recorded What is the highest level of school you have completed or the highest degree you have received? Bachelor's degree (e.g., BA, AB, BS) 01/24/2022 Sex and Gender Information Value Date Recorded Sex Assigned at Female 01/24/2022 7:37 PM UNION CONTRACT REPRESENTATIVE Gender Identity Female 01/24/2022 7:37 PM UNION CONTRACT REPRESENTATIVE Sexual Orientation Straight 01/24/2022 7: 37 PM UNION CONTRACT REPRESENTATIVE documented as of this encounter Plan of Treatment Upcoming Encounters Date Type Department Care Team (Late st Contact Info) Description 10/30/2023 11:00 AM CDT Clinical Communication Virtual Review in [place], [place] [address] [place] [address] 11/01/2023 11:40 AM CDT Lab Department of Laboratory Medicine and Pathology, [facility] in [place], [place] [address] [place] [phone] Remigio Frey M.D., Ph.D. [address] [place] [phone] 11/01/2023 1:40 PM CDT Office Visit Department of Oncology in [place], [place] [address] [place] [phone] Blanche Monzon P.A.-C., M.S. [address] [place] [phone] 11/01/2023 2:45 PM CDT Infusion Department of Oncology in [place], [place] [address] [place] [phone] Remigio Frey M.D., Ph.D. [address] [place] [phone] 11/08/2023 9:45 AM CDT Clinical Communication Virtual Review in [place], [place] [address] [place] [address] 11/10/2023 8:00 AM CDT Office Visit Department of Dermatology in [place], [place] [address] [place] [phone] Emily Bell M.D. [address] [place] [phone] 11/17/2023 11:00 AM CDT Clinical Communication Virtual Review in [place], [place] [address] [place] [address] 11/21/2023 11:10 AM CDT Lab Department of Laboratory Medicine and Pathology, [facility], in [place], [place] [address] [place] [phone] Remigio Frey M.D., Ph.D. [address] [place] [phone] 11/21/2023 1:00 PM CDT Office Visit Department of Oncology in [place], [place] [address] [place] [phone] Mc Mcknight M.D., Ph.D. [address] [place] [phone] 11/21/2023 2:15 PM CDT Infusion Department of Oncology in [place], [place] [address] [place] [phone] Remigio Frey M.D., Ph.D. [address] [place] [phone] 12/11/2023 1:45 PM CDT Clinical Communication Virtual Review in [place], [place] [address] [place] [address] 12/12/2023 11:00 AM CDT Lab Department of Laboratory Medicine and Pathology, [facility], in [place], [place] [address] [place] [phone] Remigio Frey M.D., Ph.D. [address] [place] [phone] 12/12/2023 1:00 PM CDT Office Visit Department of Oncology in [place], [place] [address] [place] [phone] Mc Mcknight M.D., Ph.D. [address] [place] [phone] 12/12/2023 3:00 PM CDT Infusion Department of Oncology in [place], [place] [address] [place] [phone] Remigio Frey M.D., Ph.D. [address] [place] [phone] 01/11/2024 2:00 PM UNION CONTRACT REPRESENTATIVE Appointment Department of Radiation Oncology in [address] [phone] Tammie Hooks M.D., Ph.D. [address] [place] [phone] 01/17/2024 9:00 AM UNION CONTRACT REPRESENTATIVE Clinical Communication Virtual Review in [address] [phone] 01/19/2024 2:30 PM UNION CONTRACT REPRESENTATIVE Comprehensive Visit Department of Neurology in [address] [phone] Kory Alas M.B., Ch.B. [address] [place] [phone] documented as of this encounter Results * MR Brain without and with IV Contrast (07/27/2023 1:11 PM CDT) Anatomical Region Laterality Modality Head, Brain, Neuroradiology [facility], Neuroradiology [facility], Neuroradiology [facility] N/A Magnetic Resonance Impressions 07/27/2023 2:07 [...] the current study). The area of decreased X0kzwbow signal involving the underlying left greater than [...] Primary Secondary Malignant Neoplasm Bone (HCC) Other [facility] Current Drug Therapy documented in this encounter Care Teams Machinery Engineer Relationship Specialty Start Date End Date Elsewhere, Pcp PCP - General Family Medicine 02/01/22 documented as of this encounter
--- OUTSIDE RECORDS SUMMARY | 2023-10-25 16:17 | XMS_ITS | Encounter Summary ---
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 [address] [place] [address] [facility] Referral ID Status Reason Start Date Expiration Date Visits Re quested Visits Authorized [id number] Closed 07/14/2023 07/13/2024 1 1 Encounter Details Date Type Department Care Team (Latest Contact Info) Description 07/20/2023 9:34 AM CDT - 07/20/2023 1:37 PM CDT Hospital Encounter Department of Radiology, [facility], in [place], [place] [address] [place] [address] Woody Navarro M.D. [address] [place] [phone] Katherine Castillo M.B., B.Ch. [address] [place] [phone] Malignant Neoplasm Of Neck Squamous Cell; Lesion [...] week 01/24/2022 How often do you attend [facility] or hoahaoism services? Never 01/24/2022 Do you [...] Not hard at all 09/02/2022 [facility] - [...] Sex Assigned at Female 01/24/2022 7:37 PM SIGNAL WORKER HELPER Gender Identity Female 01/24/2022 7:37 PM SIGNAL WORKER HELPER Sexual Orientation Straight 01/24/2022 7: 37 PM SIGNAL WORKER HELPER documented as of this encounter Last Filed [...] Everywhere. * Care Following a Needle Biopsy (Japanese) documented in this encounter Medications at Time [...] AM CDT Clinical Communication Virtual Review in [place], [place] [address] [place] [address] 11/01/2023 11:40 AM CDT Lab Department of Laboratory Medicine and Pathology, [facility] in [place], [place] [address] [place] [phone] Remigio Frey M.D., Ph.D. [address] [place] [phone] 11/01/2023 1:40 PM CDT Office Visit Department of Oncology in [place], [place] [address] [place] [phone] Blanche Monzon P.A.-C., M.S. [address] [place] [phone] 11/01/2023 2:45 PM CDT Infusion Department of Oncology in [place], [place] [address] [place] [phone] Remigio Frey M.D., Ph.D. [address] [place] [phone] 11/08/2023 9:45 AM CDT Clinical Communication Virtual Review in [address] [phone] 11/10/2023 8:00 AM CDT Office Visit Department of Dermatology in [place], [place] [address] [place] [phone] Emily Bell M.D. [address] [place] [phone] 11/17/2023 11:00 AM CDT Clinical Communication Virtual Review in [address] [phone] 11/21/2023 11:10 AM CDT Lab Department of Laboratory Medicine and Pathology, [facility], in [place], [place] [address] [place] [phone] Remigio Frey M.D., Ph.D. [address] [place] [phone] 11/21/2023 1:00 PM CDT Office Visit Department of Oncology in [place], [place] [address] [place] [phone] Mc Mcknight M.D., Ph.D. [address] [place] [phone] 11/21/2023 2:15 PM CDT Infusion Department of Oncology in [place], [place] [address] [place] [phone] Remigio Frey M.D., Ph.D. [address] [place] [phone] 12/11/2023 1:45 PM CDT Clinical Communication Virtual Review in [place], [place] [address] [place] [address] 12/12/2023 11:00 AM CDT Lab Department of Laboratory Medicine and Pathology, [facility], in [address] [phone] Remigio Frey M.D., Ph.D. [address] [place] [phone] 12/12/2023 1:00 PM CDT Office Visit Department of Oncology in [address] [phone] Mc Mcknight M.D., Ph.D. [address] [place] [phone] 12/12/2023 3:00 PM CDT Infusion Department of Oncology in [place], [place] [address] [place] [phone] Remigio Frey M.D., Ph.D. [address] [place] [phone] 01/11/2024 2:00 PM SIGNAL WORKER HELPER Appointment Department of Radiation Oncology in [place], [place] [address] [place] [phone] Tammie Hooks M.D., Ph.D. [address] [place] [phone] 01/17/2024 9:00 AM SIGNAL WORKER HELPER Clinical Communication Virtual Review in [place], [place] [address] [place] [phone] 01/19/2024 2:30 PM SIGNAL WORKER HELPER Comprehensive Visit Department of Neurology in [place], [place] [address] [place] [phone] Kory Alas M.B., Ch.B. [address] [place] [phone] documented as of this encounter Procedures Procedure [...] en toto in cassette A1. ??Grossed by [facility] (A) 07/21/2023 4:40 PM CDT DTL Source [...] Navarro M.D. LAB SURG PATH O RDERABLES [facility] [address] [place] [address], 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
== END 2023-10-25 16:13 | disposition home or self-care (01) ==
LOC: US 16:13
PROVIDERS: PCP Family Medicine; Visit Provider Family Medicine
DX: M79.89 Other specified soft tissue disorders (principal); M25.462 Effusion, left knee; M71.21 Synovial cyst of popliteal space [Baker], right knee
CPT/HCPCS: 93971

== ENCOUNTER 2023-11-15 14:14 | Outpatient (CLI) | payer MEDICARE, OTHER, SELFPAY ==
--- OUTSIDE RECORDS SUMMARY | 2023-11-15 14:18 | XMS_ITS | Clinical Summary ---
Author Organization [facility] Address [address] [place] [address] Care Team Providers Care Prototyper Name Role Phone Elsewhere, Pcp Primary Care Provider Unavailabl e Source Comments Patient records contain information from all sites at [facility]. For routine questions regarding patient records, call [phone] during business hours, M-F 8:00 AM - 5:00 PM Central Time. Record requests for emergency care only can be directed to [phone] at any time.[facility] Allergies Active Allergy Reactions Criticality Noted Date [...] Heaping tablespoon in water once daily Active cholecalciferol (Vitamin D3) 50 mcg (2,000 Unit) tablet Take 1 tablet by mouth daily. Active levothyroxine (Synthroid) 50 mcg tablet Take 1 tablet (50 mcg total) by mouth daily. 90 tablet 3 08/16/2023 08/10/2024 Active multivitamin tablet Take 1 tablet by mouth daily. Currently has One-A-Day Men's 50 Plus. Active CALCIUM ORAL Take 1 tablet by mouth daily. Active MAGNESIUM ORAL Take 1 tablet by mouth daily. Active erythromycin (Romycin) 5 mg/gram (0.5 %) ophthalmic ointment Apply 1 cm to left eye at bedtime. 3.5 g 1 11/10/2023 Active clobetasoL (Temovate) 0.05 % ointment Apply 1 Application topically 2 (two) times a day as needed (Rash) for up to 14 days. Apply approximately 2-4 grams to affected area. 60 g 11 11/10/2023 11/24/2023 Active tacrolimus (Protopic) 0.1 % ointment Apply 1 Application topically 2 (two) times a day. Apply approximately 2-4 grams to affected areas. 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 Other [facility] Current Drug Therapy 07/28/2023 Malignant Neoplasm Of Neck Squamous Cell 022 Squamous Cell Carcinoma Of Skin Of Scalp And Nec k 01/26/2022 Overview (01/26/2022): Added automatically from request for surgery [id number] Amnesia 01/26/2022 Disorder Of The Skin And Subcutaneous Tissue Uns pecified 01/26/2022 Dry Eye Syndrome Right 01/26/2022 Dyslipidemia 01/26/2022 Fatigue 01/26/2022 Fatty Liver 01/26/2022 Gastroesophageal Reflux Disease 01/26/2022 Generalized Enlarged Lymph Nodes 01/26/2022 Hereditary And Idiopathic Neuropathy Unspecified 01/26/2022 Hyperlipidemia 01/26/2022 Microscopic Colitis Unspecified 01/26/2022 Nonrheumatic Aortic Valve Insufficiency 01/27/20 22 Osteoporosis 10/26/2020 Encounters Date Type Department Care Team Description 11/15/2023 Orders Only Department of Physical Medicine and Rehabilitation in [place], [place] [address] [place] [phone] Antolin Mclaughlin M.D. Effusion Knee Right (Primary Dx) 11/14/2023 2:30 PM CDT Procedure visit Department of Physical Medicine and Rehabilitation in [address] [phone] Divine Ayala M.D. Effusion Knee Right 11/13/2023 11:05 AM CDT Ancillary Procedure Department of Radiology in [address] [phone] Antolin Mclaughlin M.D. Effusion Knee Right 11/13/2023 10:00 AM CDT Comprehensive Visit Department of Physical Medicine and Rehabilitation in [address] [address] Antolin Mclaughlin M.D. Effusion Knee Right (Primary Dx); Malignant Neoplasm Of Neck Squamous Cell; Secondary Malignant Neoplasm Bone (HCC); Other [facility] Current Drug Therapy; Squamous Cell Carcinoma Of Skin Of Scalp And Neck 11/10/2023 8:00 AM CDT Office Visit Department of Dermatology in [place], [place] [address] [place] [phone] Emily Bell M.D. Nevi Multiple (Primary Dx); Squamous Cell Carcinoma Of Skin Of Scalp And Neck; Secondary Malignant Neoplasm Bone (HCC); Other [facility] Current Drug Therapy; Dermatoheliosis; Keratosis Seborrheic; Psoriasis; Dermatitis Discharge Disposition: Home or Self Care 11/01/2023 2:45 PM CDT Infusion Department of Oncology in [address] [address] Remigio Frey M.D., Ph.D. Squamous Cell Carcinoma Of Skin Of Scalp And Neck (Primary Dx); Other [facility] Current Drug Therapy; Secondary Malignant Neoplasm Bone (HCC); Malignant Neoplasm Of Neck Squamous Cell 11/01/2023 1:40 PM CDT Office Visit Department of Oncology in [address] [phone] Blanche Monzon P.A.-C., M.S. Malignant Neoplasm Of Neck Squamous Cell (Primary Dx); Squamous Cell Carcinoma Of Skin Of Scalp And Neck; Secondary Malignant Neoplasm Bone (HCC); Other [facility] Current Drug Therapy; Pain In Joint; Effusion Joint 11/01/2023 Clinical Communication Department of Oncology in [address] [phone] Blanche Monzon P.A.-C., M.S. 10/30/2023 11:00 AM CDT Clinical Communication Virtual Review in [address] [phone] 10/11/2023 3:30 PM CDT - 10/12/2023 10:05 AM CDT Hospital Encounter Department of Radiation Oncology in [address] [phone] Tammie Hooks M.D., Ph.D. Squamous Cell Carcinoma Of Skin Of Scalp And Neck (Primary Dx) 10/11/2023 2:00 PM CDT Infusion Department of Oncology in [address] [address] Blanche Monzon P.A.-C., M.S. Malignant Neoplasm Of Neck Squamous Cell (Primary Dx); Other [facility] Current Drug Therapy; Secondary Malignant Neoplasm Bone (HCC); Squamous Cell Carcinoma Of Skin Of Scalp And Neck 10/11/2023 1:00 PM CDT Office Visit Department of Oncology in [address] [phone] Remigio Frey M.D., Ph.D. Squamous Cell Carcinoma Of Skin Of Scalp And Neck (Primary Dx); Other [facility] Current Drug Therapy; Secondary Malignant Neoplasm Bone (HCC) 10/11/2023 7:41 AM CDT - 10/11/2023 3:29 PM CDT Hospital Encounter Department of Radiology, [facility] in [address] [phone] Blanche Monzon P.A.-C., M.S. Squamous Cell Carcinoma Of Skin Of Scalp And Neck; Secondary Malignant Neoplasm Bone (HCC); Other [facility] Current Drug Therapy Discharge Disposition: Home or Self Care 10/11/2023 6:45 AM CDT - 10/11/2023 7:40 AM CDT Hospital Encounter Department of Radiology, [facility] in [address] [address] Blanche Monzon P.A.-C., M.S. Squamous Cell Carcinoma Of Skin Of Scalp And Neck; Secondary Malignant Neoplasm Bone (HCC); Other [facility] Current Drug Therapy Discharge Disposition: Home or Self Care 10/09/2023 10:45 AM CDT Clinical Communication Virtual Review in [place], [place] [address] [place] [address] Blood Pressure 09/19/2023 2:00 PM CDT Infusion Department of Oncology in [address] [phone] Blanche Monzon P.A.-C., M.S. Malignant Neoplasm Of Neck Squamous Cell (Primary Dx); Secondary Malignant Neoplasm Bone (HCC); Squamous Cell Carcinoma Of Skin Of Scalp And Neck; Other [facility] Current Drug Therapy 09/19/2023 1:00 PM CDT Office Visit Department of Oncology in [address] [phone] Blanche Monzon P.A.-C., M.S. Squamous Cell Carcinoma Of Skin Of Scalp And Neck (Primary Dx); Secondary Malignant Neoplasm Bone (HCC); Other [facility] Current Drug Therapy 08/29/2023 2:30 PM CDT Infusion Department of Oncology in [place], [place] [address] [place] [phone] Blanche Monzon P.A.-C., M.S. Malignant Neoplasm Of Neck Squamous Cell (Primary Dx); Secondary Malignant Neoplasm Bone (HCC); Squamous Cell Carcinoma Of Skin Of Scalp And Neck; Other [facility] Current Drug Therapy 08/29/2023 1:40 PM CDT Office Visit Department of Oncology in [place], [place] [address] [place] [phone] Farnaz Mccarty APRN, CNeyN.P. Secondary Malignant Neoplasm Bone (HCC); Squamous Cell Carcinoma Of Skin Of Scalp And Neck; Other [facility] Current Drug Therapy 08/28/2023 10:00 AM CDT Clinical Communication Virtual Review in [place], [place] [address] [place] [address] 08/28/2023 Orders Only Department of Radiation Oncology in [address] [phone] Tammie Hooks M.D., Ph.D. 08/16/2023 Refill Department of Radiation Oncology in [address] [phone] Tammie Hooks M.D., Ph.D. Med Refill 08/16/2023 Clinical Communication Department of Oncology in [address] [phone] Tammie Adams, R.N. Sx- foot vibration from Last 3 Months Family History Medical History Relation Name Comments Lung cancer Brother Lisa Toro Lung cancer Father Anselmo toro Dementia Maternal Grandmother Desirae Bermansen Tuberculosis Maternal Grandmother Desirae Ugarte Dementia Mother Lyric Ugarte-Toro Dementia Sister Ani Toro Alcohol abuse Son Filippo Guevara Relation Name Status Comments Brother Lisa Toro Father Anselmo toro Maternal Grandmother Desirae Bermansen Mother Lyricrhonda Ugarte-Toro Sister Ani Toro Son Filippo Guevara Social [...] and heating? Not hard at all 09/02/2022 [facility] - Occupational Stress [...] Sex Assigned at Female 01/24/2022 7:37 PM MATERIAL CLERK Gender Identity Female 01/24/2022 7:37 PM MATERIAL CLERK Sexual Orientation Straight 01/24/2022 7: 37 PM MATERIAL CLERK Last Filed Vital Signs Vital Sign Reading Time Taken Comments Blood Pressure 92/55 11/01/2023 1:36 PM CDT Pulse 67 11/01/2023 1:36 PM CDT Temperature 36.6 ??C (97.9 ??F) 11/01/2023 1:36 PM CD T Respiratory Rate 16 11/01/2023 1:36 PM CDT Oxygen Saturation 99% 11/01/2023 1:36 PM CDT Inhaled Oxygen Concentration - - Weight 58.7 kg (129 lb 6.6 oz) 11/01/2023 1:36 P M CDT Height 162.9 cm (5' 4.13) 11/01/2023 1:36 PM CD T Body Mass Index 22.12 11/01/2023 1:36 PM CDT Plan of Treatment Upcoming Encounters Date Type Department Care Team (Late st Contact Info) Description 11/17/2023 11:00 AM CDT Clinical Communication Virtual Review in [address] [phone] 11/21/2023 11:10 AM CDT Lab Department of Laboratory Medicine and Pathology, [facility], in [address] [phone] Remigio Frey M.D., Ph.D. [address] [place] [phone] 11/21/2023 1:00 PM CDT Office Visit Department of Oncology in [address] [phone] Mc Mcknight M.D., Ph.D. [address] [place] [phone] 11/21/2023 2:15 PM CDT Infusion Department of Oncology in [address] [address] Remigio Frey M.D., Ph.D. [address] [place] [phone] 12/11/2023 1:45 PM CDT Clinical Communication Virtual Review in [address] [address] 12/12/2023 11:00 AM CDT Lab Department of Laboratory Medicine and Pathology, [facility], in [place], [place] [address] [place] [phone] Remigio Frey M.D., Ph.D. [address] [place] [phone] 12/12/2023 1:00 PM CDT Office Visit Department of Oncology in [place], [place] [address] [place] [phone] Mc Mcknight M.D., Ph.D. [address] [place] [phone] 12/12/2023 3:00 PM CDT Infusion Department of Oncology in [place], [place] [address] [place] [phone] Remigio Frey M.D., Ph.D. [address] [place] [phone] 12/29/2023 1:15 PM CDT Clinical Communication Virtual Review in [place], [place] [address] [place] [address] 01/02/2024 10:00 AM CDT Lab Department of Laboratory Medicine and Pathology, [facility], in [place], [place] [address] [place] [phone] Blanche Monzon P.A.-C., M.S. [address] [place] [phone] 01/02/2024 11:30 AM CDT Appointment Department of Radiology, [facility], in [place], [place] [address] [place] [phone] Blanche Monzon P.A.-C., M.S. [address] [place] [phone] 01/02/2024 1:00 PM CDT Office Visit Department of Oncology in [place], [place] [address] [place] [phone] Mc Mcknight M.D., Ph.D. [address] [place] [phone] 01/02/2024 3:00 PM CDT Infusion Department of Oncology in [place], [place] [address] [place] [phone] Blanche Monzon P.A.-C., M.S. [address] [place] [phone] 01/09/2024 10:15 AM MATERIAL CLERK Clinical Communication Virtual Review in [place], [place] [address] [place] [address] 01/11/2024 9:00 AM MATERIAL CLERK Appointment Department of Radiology, [facility] in [place], [place] [address] [place] [phone] Tammie Hooks M.D., Ph.D. [address] [place] [phone] 01/11/2024 2:00 PM MATERIAL CLERK Appointment Department of Radiation Oncology in [place], [place] [address] [place] [phone] Tammie Hooks M.D., Ph.D. [address] [place] [phone] 01/17/2024 9:00 AM MATERIAL CLERK Clinical Communication Virtual Review in [address] [phone] 01/19/2024 1:00 PM MATERIAL CLERK Comprehensive Visit Department of Neurology in [place], [place] [address] [place] [phone] Kory Alas M.B., Ch.B. [address] [place] [phone] Health Maintenance Due Date Last Done Comments Hepatitis C Screening 1945 Depression Screening (Annual PHQ-2) 03/06/2023 COVID-19 Vaccine ( - 2022-24 season) 2023 02/21/2022, 06/18/2021, 12/28/2020, Additional history exists Influenza Vaccine (#1) 2023 , 12/22/2021, 12/28/2020, Additional history exists Thyroid Stimulating Hormone (TSH) test for thyroid function 10/31/2024 11/01/2023, 10/11/2023, 09/19/2023, Additional history exists DTaP,Tdap,and Td Vaccines (3 - Td or Tdap) 11/23/2032 11/23/2022, 12/21/2012, 03/05/1990 Pneumococcal vaccine (65+ years) Completed 07/16/2014, 05/18/2011 Zoster Vaccines Completed 04/17/2023, 11/05, 02/04/2012 Fall Risk Screen (Annual) Completed 07/27/2023 HPV Vaccines Aged Out No longer eligi ble based on patient's age to complete this topic Medical Devices Implanted Type Area [employer]ist Device Identifier Shelf Expiration Date Model / Serial / Lot Hardware E.G. Pins/Screws/Ro ds Hardware e.g. pins/screws/r ods Mouth Procedures Procedure Name Priority Date/Time Associated Diagnosis Comments CRYSTAL ID, Routine 11/14/2023 2:50 PM CDT CELL COUNT AND DIFFERENTIAL, BF Routine 11/14/2023 2:50 PM CDT Effusion Knee Right [place] ARTHCS ASP/INJ MJR JT W US Routine 11/14/2023 2:30 PM CDT Effusion Knee Right INTERPRETATION OF OUTSIDE DX EXTREMITY RAD - Routine (most inpatients and all outpatients) 11/13/2023 11:06 AM CDT Effusion Knee Right FOLATE, S Routine 11/01/2023 11:39 AM CDT Squamous Cell Carcinoma Of Skin Of Scalp And Neck VITAMIN B12 ASSAY, S Routine 11/01/2023 11:39 AM CDT Squamous Cell Carcinoma Of Skin Of Scalp And Neck THYROID FUNCTION CASCADE, S Routine 11/01/2023 11:39 AM CDT Other [facility] Current Drug Therapy 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 BILIRUBIN DIRECT, S/P Routine 11/01/2023 11:39 AM CDT Other [facility] Current Drug Therapy 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 COMPREHENSIVE METABOLIC PANEL, S/P Routine 11/01/2023 11:39 AM CDT Other [facility] Current Drug Therapy 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 CBC WITH DIFFERENTIAL, B Routine 11/01/2023 11:38 AM CDT Other [facility] Current Drug Therapy 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 OUTSIDE US Routine 10/25/2023 4:25 PM CDT OUTSIDE DX SKELETAL Routine 10/25/2023 4 :05 PM CDT MR BRAIN WITHOUT AND WITH IV CONTRAST RAD - Routine (most inpatients and all outpatients) 10/11/2023 8:50 AM CDT Squamous Cell Carcinoma Of Skin Of Scalp And Neck Secondary Malignant Neoplasm Bone (HCC) Other [facility] Current Drug Therapy CT ABDOMEN PELVIS WITH IV CONTRAST RAD - Routine (most inpatients and all outpatients) 10/11/2023 7:40 AM CDT Squamous Cell Carcinoma Of Skin Of Scalp And Neck Secondary Malignant Neoplasm Bone (HCC) Other [facility] Current Drug Therapy CT CHEST WITH IV CONTRAST RAD - Routine (most inpatients and all outpatients) 10/11/2023 7:40 AM CDT Squamous Cell Carcinoma Of Skin Of Scalp And Neck Secondary Malignant Neoplasm Bone (HCC) Other [facility] Current Drug Therapy CT NECK SOFT TISSUE WITH IV CONTRAST RAD - Routine (most inpatients and all outpatients) 10/11/2023 7:40 AM CDT Squamous Cell Carcinoma Of Skin Of Scalp And Neck Secondary Malignant Neoplasm Bone (HCC) Other [facility] Current Drug Therapy THYROID FUNCTION CASCADE, S Routine 10/11/2023 6:41 AM CDT Other [facility] Current Drug Therapy 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 BILIRUBIN DIRECT, S/P Routine 10/11/2023 6:41 AM CDT Other [facility] Current Drug Therapy 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 COMPREHENSIVE METABOLIC PANEL, S/P Routine 10/11/2023 6:41 AM CDT Other [facility] Current Drug Therapy 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 CBC WITH DIFFERENTIAL, B Routine 10/11/2023 6:41 AM CDT Other [facility] Current Drug Therapy 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 THYROID FUNCTION CASCADE, S Routine 09/19/2023 10:57 AM CDT 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 Other [facility] Current Drug Therapy BILIRUBIN DIRECT, S/P Routine 09/19/2023 10:57 AM CDT 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 Other [facility] Current Drug Therapy COMPREHENSIVE METABOLIC PANEL, S/P Routine 09/19/2023 10:57 AM CDT 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 Other [facility] Current Drug Therapy CBC WITH DIFFERENTIAL, B Routine 09/19/2023 10:57 AM CDT 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 Other [facility] Current Drug Therapy THYROID FUNCTION CASCADE, S Routine 08/29/2023 11:30 AM CDT 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 Other [facility] Current Drug Therapy BILIRUBIN DIRECT, S/P Routine 08/29/2023 11:30 AM CDT 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 Other [facility] Current Drug Therapy COMPREHENSIVE METABOLIC PANEL, S/P Routine 08/29/2023 11:30 AM CDT 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 Other [facility] Current Drug Therapy CBC WITH DIFFERENTIAL, B Routine 08/29/2023 11:30 AM CDT 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 Other [facility] Current Drug Therapy from Last 3 Months Results * Crystal Identification, Body Fluid (11/14/2023 2:50 PM CDT) Fluid Type Synovial Fluid, Right Knee 11/14/2023 9:56 PM CDT [facility] Crystal ID None seen None seen 11/14/2023 9:56 PM CDT PM Fluid 11/14/2023 2:50 PM CDT 11/14/2023 5:58 PM CDT Antolin Mclaughlin M.D. LAB BODY FLUID S AND STOOLS ORDERABLES [facility] [address] [place] [address], [facility] [address] [place] [address] * Cell Count and Differential, Body Fluid (11/14/2023 2:50 PM CDT) Fluid Type Right knee synovial 11/14/2023 9:56 PM CDT [facility] Gross Appearance Cloudy 11/14/19 24 9:56 PM CDT [facility] Total Nucleated Cells 9252 /mcL 11/14/2023 9:56 PM CDT [facility] Comment: ----REFERENCE VALUE---- Synovial: <150 /mcL Peritoneal: <500 /mcL Pleural: <500 /mcL Pericardial: <500 /mcL ----ADDITIONAL INFORMATION---- This test has been modified from the residential construction instructor's instructions. Its performance characteristics were determined by [facility] in a manner consistent with CLIA requirements. This test has not been cleared or approved by the U.S. Food and Drug Administration. Neutrophils 52 % 11/14/2023 9:56 PM CDT [facility] Comment: ----REFERENCE VALUE---- Synovial: <25% Peritoneal: <25% Pleural: <25% Pericardial: <25% Lymphocytes 19 Synovial <75% % 11/14/2023 9:56 PM CDT PM Monocytes/Macropha ges 29 Synovial <70% % 11/14/2023 9:56 PM CDT [facility] Comment See Comment 11/15/2023 9:36 AM CDT PM Comment:No blasts or maligna nt cells seen. Reviewed by: Mago 11/15/2023 9:36 AM CDT [facility] Fluid (Synovial Fluid, Not Otherwise Specified) 11/14/2023 2:50 PM CDT 11/14/2023 5:58 PM CDT Antolin Mclaughlin M.D. LAB BODY FLUID [place] [address], [place] [address] * [place] ARTHCS ASP/INJ MJR JT W US (11/14/2023 2:30 PM CDT) Narrative [facility] - 11/14/2023 2:30 PM CDT Divine Ayala M.D. ? 11/14/2023 ??2:59 PM Knee site- R knee joint : aspiration only Performed by: Divine Ayala M.D. Authorized by: Antolin Mclaughlin M.D. ?? Care team members present 1. Nicolas Arango M.D. 2. Norberto Issa PROCEDURE DETAILS Procedure Location knee Knee site: R knee joint Patient position: seated Procedural approach: lateral Procedure performed: aspiration only Needle gauge: 19 G, length: 2 in Ultrasound image guidance used to localize target, identify at risk structures, and dynamically used to direct therapy to the target. Image(s) acquired and saved. Site was marked using indelible marker Probe: linear mid-frequency Needle approach: lateral to medial Ultrasound visualization: in-plane SPECIMENS Aspirate volume (mL): 32, appearance: straw color and cloudy Aspirate sent for: cell count and crystal analysis Procedural Medication The following medications were administered at the target site(s) Local anesthetic: 2 mL lidocaine (PF) 10 mg/mL (1 %) CONSENT Consent obtained: written (Risks, benefits and alternatives were discussed and a written Informed Consent was obtained. Please see Informed Consent form for further details.) UNIVERSAL PROTOCOL All relevant documentation and testing were reviewed and available. All required blood products, implants, devices and or special equipment were made available as applicable. Pre-procedure verification was conducted and the correct site was marked if required. A fire risk and smoke assessment were done as applicable. The procedural time-out to verify correct patient, correct side/site, and procedure was conducted prior to performing the procedure and confirmed in a procedural pause. PRE-PROCEDURE DETAILS Procedure purpose: therapeutic Appropriate hand hygiene, gown, cap, mask, protective eyewear, sterile gloves, skin preparation, sterile drape, and strict aseptic technique were utilized as applicable for the procedure. Site preparation: chlorhexidine SEDATION / ANESTHESIA Anesthesia method: local infiltration Local infiltrate type: lidocaine POST-PROCEDURE DETAILS Procedure completed successfully: yes Complications: no apparent complications ?? Post-procedure instructions: avoid submersion of procedure site for 48 hours Discharge instructions: follow-up with ordering provider Comments Performed by Dr. Arango under my direct supervision. ATTESTATION STATEMENT A resident or fellow participated in the procedure, and the vmware consultant was present for the entire procedure. Antolin Mclaughlin M.D. PROCEDURE/JEN R SURGICAL ORDERABLES [facility] NA * Interpretation of Outside DX Extremity (11/13/2023 11:06 AM CDT) Anatomical Region Laterality Modality Musculoskeletal RST LOS, Mus culoskeletal ARZ LOS, Muskuloskeletal FLA LOS, Musculoskeletal, Other N/A Digita l Radiography Impressions 11/13/2023 11:12 AM CDT Moderate to large right knee joint effusion and/or synovitis. Degenerative arthritis patellofemoral compartment with changes, most marked involving the medial patellar facet. Focal degenerative change posterior aspect of medial femoral condyle. Narrative 11/13/2023 11:12 AM CDT EXAM: ??INTERPRETATION OF OUTSIDE DX EXTREMITY Outside radiographs right knee dated 10/25/2023. Procedure Note Bryanna Mcconnell M.D. - 11/13/2023 EXAM: INTERPRETATION OF OUTSIDE DX EXTREMITY Outside radiographs rightknee dated 10/25/2023. IMPRESSION: Moderate to large right knee joint effusion and/or synovitis. Degenerativearthritis patellofemoral compartment with changes, most marked involvingthe medial patellar facet. Focal degenerative change posterior aspect ofmedial femoral condyle. Antolin Mclaughlin M.D. [facility] DIAGNOSTIC IMAGING PROCEDURES * Thyroid Function [place] (11/01/2023 11:39 AM CDT) Only the most recent of4 resultswithin the time period is included. TSH, Sensitive 3.2 0.3 - 4.2 mIU/L 11/01/2023 12:57 PM CDT DTL Blood (Blood, Venous) 11/01/2023 11:39 AM CDT 11/01/2023 12:00 PM CDT Remigio Frey M.D., Ph.D. LAB BLOOD AD D-ON [facility] [address] [place] [address], [facility] [address] [place] [address] * Folate (11/01/2023 11:39 AM CDT) Pathologist [facility] Folate, S >20.0 >=4.0 mcg/L 11/01/2023 12:47 PM CDT DTL Blood (Blood, Venous) 11/01/2023 11:39 AM CDT 11/01/2023 12:00 PM CDT Tammie Hooks M.D., Ph.D. LAB BLOOD A DD-ON Performing Organization Address [facility] Co de Phone Number [facility] [address] [place] [address], [facility] [address] [place] [address] * Vitamin B12 Assay (11/01/2023 11:39 AM CDT) Vitamin B12 Assay, S 753 180 - 914 ng/L 11/01/2023 12:48 PM CDT DT Comment: ----ADDITIONAL INFORMATION---- In patients being evaluated for vitamin B12 deficiency who have intrinsic factor blocking antibodies (IFBA), false elevations of B12 may occur due to IFBA interference thus potentially obscuring a physiological deficiency of B12. If observed B12 concentrations are discordant with clinical presentation, measurement of methylmalonic acid (MMA) should be considered. Blood (Blood, Venous) 11/01/2023 11:39 AM CDT 11/01/2023 12:00 PM CDT Tammie Hooks M.D., Ph.D. LAB BLOOD A DD-ON Performing Organization Address [facility] Co de Phone Number [facility] [address] [place] [address], [facility] [address] [place] [address] * Bilirubin, Direct (11/01/2023 11:39 AM CDT) Only the most recent of4 resultswithin the time period is included. Bilirubin, Direct, S <0.2 0.0 - 0.3 mg/dL 11/01/2023 12:57 PM CDT DTL Blood (Blood, Venous) 11/01/2023 11:39 AM CDT 11/01/2023 12:00 PM CDT Remigio Frey M.D., Ph.D. LAB BLOOD AD D-ON [facility] [address] [place] [address], [place] DTL [facility] [address] [place] [address] * Comprehensive Metabolic Panel (11/01/2023 11:39 AM CDT) Only the most recent of4 resultswithin the time period is included. [facility] Potassium, S 4.5 3.6 - 5.2 mmol/L 11/01/2023 12:57 PM CDT DTL Sodium, S 139 135 - 145 mmol/L 11/01/2023 12:57 PM CDT DTL Chloride, S 102 98 - 107 mmol/L 11/01/2023 12:57 PM CDT DTL Bicarbonate, S 29 22 - 29 mmol/L 11/01/2023 12:57 PM CDT DTL Anion Gap 8 7 - 15 11/01/2023 12:57 PM CDT DTL BUN (Blood Urea Nitrogen), S 14 6 - 21 mg/dL 11/01/2023 12:57 PM CDT DTL Creatinine 0.73 0.59 - 1.04 mg/dL 11/01/2023 12:57 PM CDT DTL Estimated GFR (eGFR) 84 >=60 mL/min/BS A 11/01/2023 12:57 PM CDT DTL Comment: Estimated GFR calculated using the 2020 CKD_EPI creatinine equation. Calcium, Total, S 9.5 8.8 - 10.2 mg/dL 11/01/2023 12:57 PM CDT DTL Glucose, S 82 70 - 140 mg/dL 11/01/2023 12:57 PM CDT DTL Protein, Total, S 6.6 6.3 - 7.9 g/dL 11/01/2023 12:57 PM CDT DTL Albumin, S 4.2 3.5 - 5.0 g/dL 11/01/2023 12:57 PM CDT DTL Aspartate Aminotransferase (AST), S 40 8 - 43 U/L 11/01/2023 12:57 PM CDT DTL Alkaline Phosphatase, S 101 35 - 104 U/L 11/01/2023 12:57 PM CDT DTL Alanine Aminotransferase (ALT), S 25 7 - 45 U/L 11/01/2023 12:57 PM CDT DTL Bilirubin, Total, S 0.4 0.0 - 1.2 mg/dL 11/01/2023 12:57 PM CDT DTL Blood (Blood, Venous) 11/01/2023 11:39 AM CDT 11/01/2023 12:00 PM CDT Remigio Frey M.D., Ph.D. LAB BLOOD AD D-ON [facility] [address] [place] [address], [facility] [place] [address] [place] [address] * (ABNORMAL) CBC with Differential, Blood (11/01/2023 11:38 AM CDT) Only the most recent of4 resultswithin the time period is included. Hemoglobin 12.2 11.6 - 15.0 g/dL 11/01/2023 12:25 PM CDT DTL Hematocrit 37.5 35.5 - 44.9 % 11/01/2023 12:25 PM CDT DTL Erythrocytes 4.15 3.92 - 5.13 x10(12)/L 11/01/2023 12:25 PM CDT DTL MCV 90.4 78.2 - 97.9 fL 11/01/2023 12:25 PM CDT DTL RBC Distrib Width 12.8 12.2 - 16.1 % 11/01/2023 12:25 PM CDT DTL Platelet Count 223 157 - 371 x10(9)/L 11/01/2023 12:25 PM CDT DTL Leukocytes 6.5 3.4 - 9.6 x10(9)/L 11/01/2023 12:25 PM CDT DTL Neutrophils 5.17 1.56 - 6.45 x10(9)/L 11/01/2023 12:25 PM CDT [facility] Lymphocytes 0.64(L) 0.95 - 3.07 x10(9)/L 11/01/2023 12:25 PM CDT DTL Monocytes 0.54 0.26 - 0.81 x10(9)/L 11/01/2023 12:25 PM CDT DTL Eosinophils 0.10 0.03 - 0.48 x10(9)/L 11/01/2023 12:25 PM CDT DTL Basophils 0.03 0.01 - 0.08 x10(9)/L 11/01/2023 12:25 PM CDT DTL Blood (Blood, Venous) 11/01/2023 11:38 AM CDT 11/01/2023 11:49 AM CDT Remigio Frey M.D., Ph.D. LAB BLOOD AD D-ON Performing Organization Address City/[facility]/ZIP Co de Phone Number [facility] [address] [place] [address], [facility] DTL [facility] [address] [place] [address] DHPM [facility] [address] [place] [address] * US venous LE RT-Outside US (10/25/2023 4:25 PM CDT) Narrative [facility] - 11/01/2023 3:14 PM CDT This order has been created and auto-finalized to support the import of outside images. If available, original interpretation can be found on the Media Tab in Chart Review, in Document Viewer, as an image in QREADS or as an Addendum. If a re-interpretation or overread is required please follow defined workflow.?? Provider Not In System IMG US PROCEDURES Performing Organization Address City/[facility]/ZIP Co de Phone Number [facility] NA * XR knee RT 3V-Outside Skeletal Xray (10/25/2023 4:05 PM CDT) Narrative [facility] - 11/01/2023 3:13 PM CDT This order has been created and auto-finalized to support the import of outside images. If available, original interpretation can be found on the Media Tab in Chart Review, in Document Viewer, as an image in QREADS or as an Addendum. If a re-interpretation or overread is required please follow defined workflow.?? Provider Not In System IMG DIAGNOSTIC IM AGING PROCEDURES [facility] NA * MR Brain without and with IV [...] with direct visualization. Blanche Monzon P.A.-C., M.S. [facility] MRI PROCEDURES * CT Abdomen Pelvis with [...] or soft tissue mass. Blanche Monzon P.A.-C. [place]. 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
--- OUTSIDE RECORDS SUMMARY | 2023-11-15 14:19 | XMS_ITS | Encounter Summary ---
Author Organization [facility] Address [address] [place] [address] Care Team Providers Care Chief Operator Reformer Name Role Phone Elsewhere, Pcp Primary Care Provider Unavailabl e Encounter Details Date Type Department Care Team (Latest Contact Info) Description 11/13/2023 11:05 AM CDT Ancillary Procedure Department of Radiology in [place], [place] [address] [place] [address] Antolin Mclaughlin M.D. [address] [place] [address] Effusion Knee Right Social History Tobacco Use Types Packs/Day [...] and heating? Not hard at all 09/02/2022 [facility] - Occupational Stress Questionnaire Answer Date [...] Sex Assigned at Female 01/24/2022 7:37 PM TELEPHONE ANSWERING SERVICE OPERATOR Gender Identity Female 01/24/2022 7:37 PM TELEPHONE ANSWERING SERVICE OPERATOR Sexual Orientation Straight 01/24/2022 7: 37 PM TELEPHONE ANSWERING SERVICE OPERATOR documented as of this encounter Plan of Treatment Upcoming Encounters Date Type Department Care Team (Late st Contact Info) Description 11/17/2023 11:00 AM CDT Clinical Communication Virtual Review in [place], [place] [address] [place] [address] 11/21/2023 11:10 AM CDT Lab Department of Laboratory Medicine and Pathology, [facility], in [place], [place] [address] [place] [phone] Remigio Frey M.D., Ph.D. [address] [place] [phone] 11/21/2023 1:00 PM CDT Office Visit Department of Oncology in [place], [place] [address] [place] [phone] Mc Mcknight M.D., Ph.D. [address] [place] [phone] 11/21/2023 2:15 PM CDT Infusion Department of Oncology in [place], [place] [address] [place] [phone] Remigio Frey M.D., Ph.D. [address] [place] [phone] 12/11/2023 1:45 PM CDT Clinical Communication Virtual Review in [place], [place] [address] [place] [address] 12/12/2023 11:00 AM CDT Lab Department of Laboratory Medicine and Pathology, [facility], in [place], [place] [address] [place] [phone] Remigio Frey M.D., Ph.D. [address] [place] [phone] 12/12/2023 1:00 PM CDT Office Visit Department of Oncology in [place], [place] [address] [place] [phone] Mc Mcknight M.D., Ph.D. [address] [place] [phone] 12/12/2023 3:00 PM CDT Infusion Department of Oncology in [place], [place] [address] [place] [phone] Remigio Frey M.D., Ph.D. [address] [place] [phone] 12/29/2023 1:15 PM CDT Clinical Communication Virtual Review in [place], [place] [address] [place] [address] 01/02/2024 10:00 AM CDT Lab Department of Laboratory Medicine and Pathology, [facility], in [place], [place] [address] [place] [phone] Blanche Monzon P.A.-C., M.S. [address] [place] [phone] 01/02/2024 11:30 AM CDT Appointment Department of Radiology, [facility] in [place], [place] [address] [place] [address] Blanche Monzon P.A.-C., M.S. [address] [place] [phone] 01/02/2024 1:00 PM CDT Office Visit Department of Oncology in [place], [place] [address] [place] [phone] Mc Mcknight M.D., Ph.D. [address] [place] [phone] 01/02/2024 3:00 PM CDT Infusion Department of Oncology in [place], [place] [address] [place] [phone] Blanche Monzon P.A.-C., M.S. [address] [place] [phone] 01/09/2024 10:15 AM TELEPHONE ANSWERING SERVICE OPERATOR Clinical Communication Virtual Review in [place], [place] [address] [place] [address] 01/11/2024 9:00 AM TELEPHONE ANSWERING SERVICE OPERATOR Appointment Department of Radiology, [facility] in [place], [place] [address] [place] [phone] Tammie Hooks M.D., Ph.D. [address] [place] [phone] 01/11/2024 2:00 PM TELEPHONE ANSWERING SERVICE OPERATOR Appointment Department of Radiation Oncology in [place], [place] [address] [place] [phone] Tammie Hooks M.D., Ph.D. [address] [place] [phone] 01/17/2024 9:00 AM TELEPHONE ANSWERING SERVICE OPERATOR Clinical Communication Virtual Review in [place], [place] [address] [place] [phone] 01/19/2024 1:00 PM TELEPHONE ANSWERING SERVICE OPERATOR Comprehensive Visit Department of Neurology in [place], [place] [address] [place] [phone] Kory Alas M.B., Ch.B. [address] [place] [phone] documented as of this encounter Procedures Procedure Name Priority Date/Time Associated Diagnosis Comments INTERPRETATION OF OUTSIDE DX EXTREMITY RAD - Routine (most inpatients and all outpatients) 11/13/2023 11:06 AM CDT Effusion Knee Right documented in this encounter Results * Interpretation of Outside DX Extremity (11/13/2023 [...] change posterior aspect ofmedial femoral condyle. Antolin ORTIZ DIAGNOSTIC IMAGING PROCEDURES documented in this encounter Visit Diagnoses Diagnosis Effusion Knee Right documented in this encounter Care Teams Chief Operator Reformer Relationship Specialty Start Date End Date Elsewhere, Pcp PCP - General Family Medicine 02/01/22 documented as of this encounter
--- OUTSIDE RECORDS SUMMARY | 2023-11-15 14:19 | XMS_ITS | Encounter Summary ---
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 [address] [place] [address] [facility] Referral ID Status Reason Start Date Expiration Date V isits Requested Visits Authorized [id number] Authorized 11/01/2023 10/31/2024 1 1 * Outpatient (Routine) Specialty Diagnoses / Procedures Referred By Contac t Referred To Contact Oncology Blanche Monzon P.A.-C., M.S. [address] [place] [phone] Mc Mcknight M.D., Ph.D. [address] [place] [phone] Referral ID Status Reason Start Date Expiration Date Visits Re quested Visits Authorized Reason for Visit * Episode Based Medications (Routine) - Authorized Specialty Diagnoses / Procedures Referred By Contac t Referred To Contact Diagnoses Other Mcfp Current Drug Therapy 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 Blanche Monzon P.A.-C., M.S. [address] [place] [phone] [facility] [address] [place] [phone] Referral ID Status Reason Start Date Expiration Date V isits Requested Visits Authorized [id number] Authorized 07/28/2023 07/27/2025 99 99 Encounter Details Date Type Department Care Team (Late st Contact Info) Description 11/01/2023 1:40 PM CDT Office Visit Department of Oncology in [address] [place] [address] [phone] Blanche Monzon P.A.-C., M.S. [address] [place] [phone] Malignant Neoplasm Of Neck Squamous Cell (Primary Dx); Squamous Cell Carcinoma Of Skin Of Scalp And Neck; Secondary Malignant Neoplasm Bone (HCC); Other Critical Care Physician Assistant Current Drug Therapy; Pain In Joint; Effusion Joint Social History Tobacco Use Types Packs/Day Years [...] and heating? Not hard at all 09/02/2022 [facility] Occupat ional Health - Occupational Stress [...] Assigned at Female 01/24/2022 7:37 PM SUPERVISOR PERSONNEL CLERKS Gender Identity Female 01/24/2022 7:37 PM SUPERVISOR PERSONNEL CLERKS Sexual Orientation Straight 01/24/2022 7: 37 PM SUPERVISOR PERSONNEL CLERKS documented as of this encounter Last Filed [...] Mass Index 22.12 11/01/2023 1:36 PM CDT documented in this encounter Progress Notes * Blanche Monzon P.A.-C., M.S. - 11/01/2023 1:40 PM CDT SUBJECTIVE REQUESTING PROVIDER Blanche Monzon P.A.-C., M.S. [address] [place] [phone] PRIMARY COLLABORATING PROVIDER Mc Mcknight M.D., Ph.D. [...] the vertex of the scalp. Evaluated by client account specialist Dr. Banuelos in [place] and was treated for possible psoriasis. The lesion persisted after 6 weeks. She was then treated with UV phototherapy between September and December of 2021. September 22, 2021---December 17, 2021: Underwent biopsy of the vertex scalp lesion which revealed squamous cell carcinoma. Incisional biopsy of left level 5 lymph node also revealed squamous cell carcinoma. 12/30/2021 Biopsy/Pathology A. Skin, scalp, vertex, excisional biopsy ([id number]; 12/30/2021): Invasive poorly differentiated squamous cell carcinoma, transected at base and lateral edge of the specimen. B. Neck, left, soft tissue, biopsy ([id number]; 01/13/2022): Invasive poorly differentiated squamous cell carcinoma [...] accompanied by her , Andre. She reports fair tolerance of cemiplimab stating she's had joint pains involving her right elbow, right knee, and bilateral ankles since starting immunotherapy. More recently, she developed a right knee effusion. Duplex ultrasound and xray completed locally on 08/25/23 ruled out DVT and confirmed patellofemoral DJD and effusion. She also notes the plaque about her right eyebrow has increased in size. States it's mildly itchy in nature. REVIEW OF SYSTEMS A 14-point review of [...] MEDICATIONS Active Home Medications Medication Sig Taking CALCIUM ORAL Take 1 tablet by mouth daily. cholecalciferol (Vitamin D3) 50 mcg (2,000 Unit) tablet Take 1 tablet by mouth daily. hydrocortisone 2.5 % ointment [...] tablet (50 mcg total) by mouth daily. MAGNESIUM ORAL Take 1 tablet by mouth daily. methylcellulose, laxative, (CITRUCEL) 500 [...] cereal SOCIAL HISTORY Veronica Guevara lives in [place], [place], with her , Andre. Retired. PHYSICAL EXAMINATION ECOG performance score: 1 - symptomatic but completely ambulatory BP 92/55 (BP Location: Left arm) Pulse 67 Temp 36.6 ??C (Tympanic) Resp 16 Ht 162.9 cm Wt58.7 kg SpO2 99% BMI 22.12 kg/m?? General: Well-developed female sitting comfortably in clinic room. Eyes: Extraocular movements intact. ENT: Mucous membranes moist. Neck: No thyromegaly noted. Cardiovascular: Regular rate and rhythm. No murmurs, rubs, or gallops. Lungs: Clear to auscultation bilaterally. No use of accessory muscles. No rales, rhonchi, or wheezes. Extremities: No edema or cyanosis. Musculoskeletal: Normal range of motion. Right knee effusion noted. Skin: Warm and dry. Plaque-like lesion about right eye. Neurological: Alert and oriented x 3. Psychiatry: No overt anxiety or depression. DIAGNOSTICS LABORATORY DATA Recent Results (from the past 24 hour(s)) CBC with Differential, Blood Collection Time: 11/01/23 11:38 AM Result Value Hemoglobin 12.2 Hematocrit 37.5 Erythrocytes 4.15 MCV 90.4 RBC Distrib Width 12.8 Platelet Count 223 Leukocytes 6.5 Neutrophils 5.17 Lymphocytes 0.64 (L) Monocytes 0.54 Eosinophils 0.10 Basophils 0.03 Comprehensive Metabolic Panel Collection Time: 11/01/23 11:39 AM Result Value Potassium, S 4.5 Sodium, S 139 Chloride, S 102 Bicarbonate, S 29 Anion Gap 8 BUN (Blood Urea Nitrogen), S 14 Creatinine 0.73 Estimated GFR (eGFR) 84 Calcium, Total, S 9.5 Glucose, S 82 Protein, Total, S 6.6 Albumin, S 4.2 Aspartate Aminotransferase (AST), S 40 Alkaline Phosphatase, S 101 Alanine Aminotransferase (ALT), S 25 Bilirubin, Total, S 0.4 Bilirubin, Direct Collection Time: 11/01/23 11:39 AM Result Value Bilirubin, Direct, S <0.2 Thyroid Function [facility] Collection Time: 11/01/23 11:39 AM Result Value TSH, Sensitive 3.2 Vitamin B12 Assay Collection Time: 11/01/23 11:39 AM Result Value Vitamin B12 Assay, S 753 Folate Collection Time: 11/01/23 11:39 AM Result Value Folate, S >20.0 RADIOLOGICAL DATA Reviewed. ASSESSMENT / PLAN #1 Malignant Neoplasm Of Neck Squamous Cell #2 Secondary Malignant Neoplasm Bone (HCC) #3 Other Critical Care Physician Assistant Current Drug Therapy #4 Pain In Joint #5 Effusion Joint Veronica Guevara is a 78 y.o. female with regionally advanced squamous cell carcinoma who presents today to for next cycle of cemiplimab. She reports fair tolerance of cemiplimab stating she's had joint pains involving her right elbow, right knee, and bilateral ankles since starting immunotherapy. Morerecently, she developed a right knee effusion. Duplex ultrasound and xray completed locally on 08/25/23 ruled out DVT and confirmed patellofemoral DJD and effusion. I shared with her that I'm concerned she has developed inflammatory arthritis. Therefore, I have placed a referral to PMR for further evaluation and to discuss joint tap and steroid injection. She also notes the plaque about her right e yebrow has increased in size. States it's mildly itchy in nature. She has been using topical hydrocortisone cream. She is scheduled to see my colleagues in dermatology on 11/10/23 and I have asked her to request this area be evaluated. Labs unremarkable. Per clinical evaluation, ECOG status, and lab review, patient is okay to proceed with infusion today. Plan to return to clinic in 3 weeks for nextcemiplimab infusion. Imaging is due on 01/02/24. PATIENT EDUCATION Ready to learn, no apparent learning barriers were identified; learning preferences include listening. Explained diagnosis and treatment plan; patient expressed understanding of the content. Discussed with the patient we work together as a care team of physicians, nurse practitioners/physician assistants, nurses and other technical customer support specialist that specialize in this cancer. Also, reviewed the importance of maintaining ongoing care with local oncology team and primary care physician. BILLING I spent an additional 35 minutes beyond treatment clearance reviewing chart, managing above symptoms, and placing follow-up orders. documented in this encounter Plan of Treatment Upcoming Encounters Date Type Department Care Team (Late st Contact Info) Description 11/17/2023 11:00 AM CDT Clinical Communication Virtual Review in [address] [phone] 11/21/2023 11:10 AM CDT Lab Department of Laboratory Medicine and Pathology, [address] [phone] Remigio Frey M.D., Ph.D. [address] [place] [phone] 11/21/2023 1:00 PM CDT Office Visit Department of Oncology in [address] [phone] Mc Mcknight M.D., Ph.D. [address] [place] [phone] 11/21/2023 2:15 PM CDT Infusion Department of Oncology in [address] [phone] Remigio Frey M.D., Ph.D. [address] [place] [phone] 12/11/2023 1:45 PM CDT Clinical Communication Virtual Review in [address] [phone] 12/12/2023 11:00 AM CDT Lab Department of Laboratory Medicine and Pathology, [address] [phone] Remigio Frey M.D., Ph.D. [address] [place] [phone] 12/12/2023 1:00 PM CDT Office Visit Department of Oncology in [place], [place] [address] [place] [phone] Mc Mcknight M.D., Ph.D. [address] [place] [phone] 12/12/2023 3:00 PM CDT Infusion Department of Oncology in [place], [place] [address] [place] [phone] Remigio Frey M.D., Ph.D. [address] [place] [phone] 12/29/2023 1:15 PM CDT Clinical Communication Virtual Review in [place], [place] 200 [place] [address] 01/02/2024 10:00 AM CDT Lab Department of Laboratory Medicine and Pathology, [facility] in [place], [place] [address] [place] [phone] Blanche Monzon P.A.-C., M.S. [address] [place] [phone] 01/02/2024 11:30 AM CDT Appointment Department of Radiology, [facility], in [place], [place] [address] [place] [phone] Blanche Monzon P.A.-C., M.S. [address] [place] [phone] 01/02/2024 1:00 PM CDT Office Visit Department of Oncology in [place], [place] [address] [place] [phone] Mc Mcknight M.D., Ph.D. [address] [place] [phone] 01/02/2024 3:00 PM CDT Infusion Department of Oncology in [place], [place] [address] [place] [phone] Blanche Monzon P.A.-C., M.S. [address] [place] [phone] 01/09/2024 10:15 AM SUPERVISOR PERSONNEL CLERKS Clinical Communication Virtual Review in [place], [place] 200 [place] [phone] 01/11/2024 9:00 AM SUPERVISOR PERSONNEL CLERKS Appointment Department of Radiology, [facility] in [place], [place] [address] [place] [phone] Tammie Hooks M.D., Ph.D. [address] [place] [phone] 01/11/2024 2:00 PM SUPERVISOR PERSONNEL CLERKS Appointment Department of Radiation Oncology in [place], [place] [address] [place] [phone] Tammie Hooks M.D., Ph.D. [address] [place] [phone] 01/17/2024 9:00 AM SUPERVISOR PERSONNEL CLERKS Clinical Communication Virtual Review in [address] [phone] 01/19/2024 1:00 PM SUPERVISOR PERSONNEL CLERKS Comprehensive Visit Department of Neurology in [place], [place] [address] [place] [phone] Kory Alas M.B., Ch.B. [address] [place] [phone] Scheduled Orders Name Type Priority Associated Diagnoses Order Schedule CBC with Differential, Blood Lab Routine Secondary Malignant Neoplasm Bone (HCC) Other Mcfp Current Drug Therapy Squamous Cell Carcinoma Of Skin Of Scalp And Neck Expected: 01/02/2024, Expires: 01/01/2027 Comprehensive Metabolic Panel Lab Routine Secondary Malignant Neoplasm Bone (HCC) Other Mcfp Current Drug Therapy Squamous Cell Carcinoma Of Skin Of Scalp And Neck Expected: 01/02/2024, Expires: 01/01/2025 Bilirubin, Direct Lab Routine Secondary Malignant Neoplasm Bone (HCC) Other Mcfp Current Drug Therapy Squamous Cell Carcinoma Of Skin Of Scalp And Neck Expected: 01/02/2024, Expires: 01/01/2025 Thyroid Function [facility] Lab Routine Secondary Malignant Neoplasm Bone (HCC) Other Critical Care Physician Assistant Current Drug Therapy Squamous Cell Carcinoma Of Skin Of Scalp And Neck Expected: 01/02/2024, Expires: 01/01/2025 CT Neck Soft Tissue with IV Contrast Imaging RAD - Routine (most inpatients and all outpatients) 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) Other Mcfp Current Drug Therapy Squamous Cell Carcinoma Of Skin Of Scalp And Neck Expected: 01/02/2024, Expires: 01/31/2025 CT Chest with IV Contrast Imaging RAD - Routine (most inpatients and all outpatients) 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) Other Mcfp Current Drug Therapy Squamous Cell Carcinoma Of Skin Of Scalp And Neck Expected: 01/02/2024, Expires: 01/31/2025 CT Abdomen Pelvis with IV Contrast Imaging RAD - Routine (most inpatients and all outpatients) 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) Other Mcfp Current Drug Therapy Squamous Cell Carcinoma Of Skin Of Scalp And Neck Expected: 01/02/2024, Expires: 01/31/2025 Scheduled Referrals Name Type Priority Associated Diagnoses Order Schedule Oncology office visit (clinic) Outpatient Referral Routine Secondary Malignant Neoplasm Bone (HCC) Other Critical Care Physician Assistant Current Drug Therapy Squamous Cell Carcinoma Of Skin Of Scalp And Neck Expected: 01/02/2024, Expires: 01/01/2025 Physical Medicine and Rehabilitation - General consult (clinic) Outpatient Referral Routine 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
--- OUTSIDE RECORDS SUMMARY | 2023-11-15 14:19 | XMS_ITS | Encounter Summary ---
Author Organization [facility] Address [address] [place] [address] Care Team Providers Care Engine Lathe Tender Name Role Phone Elsewhere, Pcp Primary Care Provider Unavailabl e Encounter Details Date Type Department Care Team (Latest Contact Info) Description 10/30/2023 11:00 AM CDT Clinical Communication Virtual Review in [place], [place] [address] [place] [address] Social History Tobacco Use Types Packs/Day Years [...] and heating? Not hard at all 09/02/2022 [facility] Occupat ional Health - [...] your living situation today? I have a [facility] place to live 02/16/2023 Education Answer Date Recorded What is the highest level of school you have completed or the highest degree you have received? Bachelor's degree (e.g., BA, AB, BS) 01/24/2022 Sex and Gender Information Value Date Recorded Sex Assigned at Female 01/24/2022 7:37 PM CEO Gender Identity Female 01/24/2022 7:37 PM CEO Sexual Orientation Straight 01/24/2022 7: 37 PM CEO documented as of this encounter Plan of Treatment Upcoming Encounters Date Type Department Care Team (Late st Contact Info) Description 11/17/2023 11:00 AM CDT Clinical Communication Virtual Review in [place], [place] 200 [place] [phone] 11/21/2023 11:10 AM CDT Lab Department of Laboratory Medicine and Pathology, [facility], in [address] [phone] Remigio Frey M.D., Ph.D. [address] [place] [phone] 11/21/2023 1:00 PM CDT Office Visit Department of Oncology in [address] [phone] Mc Mcknight M.D., Ph.D. [address] [place] [phone] 11/21/2023 2:15 PM CDT Infusion Department of Oncology in [place], [place] [address] [place] [phone] Remigio Frey M.D., Ph.D. [address] [place] [phone] 12/11/2023 1:45 PM CDT Clinical Communication Virtual Review in [address] [phone] 12/12/2023 11:00 AM CDT Lab Department of Laboratory Medicine and Pathology, [facility] in [address] [phone] Remigio Frey M.D., Ph.D. [address] [place] [phone] 12/12/2023 1:00 PM CDT Office Visit Department of Oncology in [address] [phone] Mc Mcknight M.D., Ph.D. [address] [place] [phone] 12/12/2023 3:00 PM CDT Infusion Department of Oncology in [place], [place] [address] [place] [phone] Remigio Frey M.D., Ph.D. [address] [place] [phone] 12/29/2023 1:15 PM CDT Clinical Communication Virtual Review in [address] [phone] 01/02/2024 10:00 AM CDT Lab Department of Laboratory Medicine and Pathology, [facility] in [place], [place] [address] [place] [phone] Blanche Monzon P.A.-C., M.S. [address] [place] [phone] 01/02/2024 11:30 AM CDT Appointment Department of Radiology, [facility] in [place], [place] [address] [place] [phone] Blanche Monzon P.A.-C., M.S. [address] [place] [phone] 01/02/2024 1:00 PM CDT Office Visit Department of Oncology in [place], [place] [address] [place] [phone] Mc Mcknight M.D., Ph.D. [address] [place] [phone] 01/02/2024 3:00 PM CDT Infusion Department of Oncology in [place], [place] [address] [place] [phone] Blanche Monzon P.A.-C., M.S. [address] [place] [phone] 01/09/2024 10:15 AM CEO Clinical Communication Virtual Review in [place], [place] 200 [place] [address] 01/11/2024 9:00 AM CEO Appointment Department of Radiology, [facility] in [place], [place] [address] [place] [phone] Tammie Hooks M.D., Ph.D. [address] [place] [phone] 01/11/2024 2:00 PM CEO Appointment Department of Radiation Oncology in [address] [phone] Tammie Hooks M.D., Ph.D. [address] [place] [phone] 01/17/2024 9:00 AM CEO Clinical Communication Virtual Review in [place], [place] 200 [place] [phone] 01/19/2024 1:00 PM CEO Comprehensive Visit Department of Neurology in [place], [place] [address] [place] [phone] Kory Alas M.B., Ch.B. [address] [place] [phone] documented as of this encounter Visit Diagnoses Not on filedocumented in this encounter Care Teams Engine Lathe Tender Relationship Specialty Start Date End Date Elsewhere, Pcp PCP - General Family Medicine 02/01/22 documented as of this encounter
--- OUTSIDE RECORDS SUMMARY | 2023-11-15 14:19 | XMS_ITS | Encounter Summary ---
Author Organization [facility] Address [address] [place] [address] Care Team Providers Care Power Generation Engineer Name Role Phone Elsewhere, Pcp Primary Care Provider Unavailabl e Reason for Referral * Outpatient (Routine) - Authorized Specialty Diagnoses / Procedures Referred By Contac t Referred To Contact Karina Price M.D. [address] [place] [address] [facility] Referral ID Status Reason Start Date Expiration Date V isits Requested Visits Authorized [id number] Authorized 11/10/2023 05/11/2025 1 1 * Medication Prior Authorization - Closed Specialty Diagnoses / Procedures Referred By Contac t Referred To Contact Emily Bell M.D. [address] [place] [address] Referral ID Status Reason Start Date Expiration Date Visits Re quested Visits Authorized [id number] Closed 1 1 Reason for Visit * Outpatient (Routine) - Closed Specialty Diagnoses / Procedures Referred By Ryan cronin Referred To Contact Dermatology Patsy Lentz M.D. [address] [place] [address] [facility] Referral ID Status Reason Start Date Expiration Date Visits Re quested Visits Authorized [id number] Closed 04/14/2023 10/13/2024 1 1 Encounter Details Date Type Department Care Team (Late st Contact Info) Description 11/10/2023 8:00 AM CDT Office Visit Department of Dermatology in [place], [place] [address] [place] [phone] Emily Bell M.D. [address] [place] [address] Nevi Multiple (Primary Dx); Squamous Cell Carcinoma Of Skin Of Scalp And Neck; Secondary Malignant Neoplasm Bone (HCC); Other Senior Care Current Drug Therapy; Dermatoheliosis; Keratosis Seborrheic; Psoriasis; [...] and heating? Not hard at all 09/02/2022 [facility] - Occupational Stress Questionnaire Answer Date [...] living situation today? I have a [facility] place to live 02/16/2023 Education Answer Date Recorded What is the highest level of school you have completed or the highest degree you have received? Bachelor's degree (e.g., BA, AB, BS) 01/24/2022 Sex and Gender Information Value Date Recorded Sex Assigned at Female 01/24/2022 7:37 PM PAIL TESTER Gender Identity Female 01/24/2022 7:37 PM PAIL TESTER Sexual Orientation Straight 01/24/2022 7: 37 PM PAIL TESTER documented as of this encounter Plan of Treatment Upcoming Encounters Date Type Department Care Team (Late st Contact Info) Description 11/17/2023 11:00 AM CDT Clinical Communication Virtual Review in [place], [place] 200 [place] [address] 11/21/2023 11:10 AM CDT Lab Department of Laboratory Medicine and Pathology, [facility] in [address] [phone] Remigio Frey M.D., Ph.D. [address] [place] [phone] 11/21/2023 1:00 PM CDT Office Visit Department of Oncology in [address] [phone] Mc Mcknight M.D., Ph.D. [address] [place] [phone] 11/21/2023 2:15 PM CDT Infusion Department of Oncology in [address] [phone] Remigio Frey M.D., Ph.D. [address] [place] [phone] 12/11/2023 1:45 PM CDT Clinical Communication Virtual Review in [place], [place] [address] [place] [address] 12/12/2023 11:00 AM CDT Lab Department of Laboratory Medicine and Pathology, [facility], in [place], [place] [address] [place] [phone] Remigio Frey M.D., Ph.D. [address] [place] [phone] 12/12/2023 1:00 PM CDT Office Visit Department of Oncology in [address] [phone] Mc Mcknight M.D., Ph.D. [address] [place] [phone] 12/12/2023 3:00 PM CDT Infusion Department of Oncology in [place], [place] [address] [place] [phone] Remigio Frey M.D., Ph.D. [address] [place] [phone] 12/29/2023 1:15 PM CDT Clinical Communication Virtual Review in [address] [phone] 01/02/2024 10:00 AM CDT Lab Department of Laboratory Medicine and Pathology, [facility], in [place], [place] [address] [place] [phone] Blanche Monzon P.A.-C., M.S. [address] [place] [phone] 01/02/2024 11:30 AM CDT Appointment Department of Radiology, [facility], in [place], [place] [address] [place] [phone] Blanche Monzon P.A.-C., M.S. [address] [place] [phone] 01/02/2024 1:00 PM CDT Office Visit Department of Oncology in [place], [place] [address] [place] [phone] Mc Mcknight M.D., Ph.D. [address] [place] [phone] 01/02/2024 3:00 PM CDT Infusion Department of Oncology in [place], [place] [address] [place] [phone] Blanche Monzon P.A.-C., M.S. [address] [place] [phone] 01/09/2024 10:15 AM PAIL TESTER Clinical Communication Virtual Review in [place], [place] 200 [place] [address] 01/11/2024 9:00 AM PAIL TESTER Appointment Department of Radiology, [facility] in [place], [place] [address] [place] [phone] Tammie Hooks M.D., Ph.D. [address] [place] [phone] 01/11/2024 2:00 PM PAIL TESTER Appointment Department of Radiation Oncology in [place], [place] [address] [place] [phone] Tammie Hooks M.D., Ph.D. [address] [place] [phone] 01/17/2024 9:00 AM PAIL TESTER Clinical Communication Virtual Review in [address] [place] [address] 01/19/2024 1:00 PM PAIL TESTER Comprehensive Visit Department of Neurology in [place], [place] [address] [place] [phone] Kory Alas M.B., Ch.B. 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
--- OUTSIDE RECORDS SUMMARY | 2023-11-15 14:19 | XMS_ITS | Encounter Summary ---
Author Organization [facility] Address [address] [place] [place] [address] Care Team Providers Care Associate Professor Of Law Name Role Phone Elsewhere, Pcp Primary Care Provider Unavailabl e Encounter Details Date Type Department Care Team (Late st Contact Info) Description 11/01/2023 Clinical Communication Department of Oncology in [place], [place] [address] [place] [phone] Blanche Monzon P.A.-C., M.S. [address] [place] [address] Social History Tobacco Use Types Packs/Day Years [...] often do you attend chur ch or hoahaoism services? Never 01/24/2022 Do you [...] and heating? Not hard at all 09/02/2022 [facility] - Occupational Stress Questionnaire Answer Date [...] your living situation today? I have a [facility] place to live 02/16/2023 Education Answer Date Recorded What is the highest level of school you have completed or the highest degree you have received? Bachelor's degree (e.g., BA, AB, BS) 01/24/2022 Sex and Gender Information Value Date Recorded Sex Assigned at Female 01/24/2022 7:37 PM SERVICE CAPTAIN Gender Identity Female 01/24/2022 7:37 PM SERVICE CAPTAIN Sexual Orientation Straight 01/24/2022 7: 37 PM SERVICE CAPTAIN documented as of this encounter Plan of Treatment Upcoming Encounters Date Type Department Care Team (Late st Contact Info) Description 11/17/2023 11:00 AM CDT Clinical Communication Virtual Review in [place], [place] 200 [place] [address] 11/21/2023 11:10 AM CDT Lab Department of Laboratory Medicine and Pathology, [facility], in [place], [place] [address] [place] [phone] Remigio Frey M.D., Ph.D. [address] [place] [phone] 11/21/2023 1:00 PM CDT Office Visit Department of Oncology in [place], [place] [address] [place] [phone] Mc Mcknight M.D., Ph.D. [address] [place] [phone] 11/21/2023 2:15 PM CDT Infusion Department of Oncology in [place], [place] [address] [place] [phone] Remigio Frey M.D., Ph.D. [address] [place] [phone] 12/11/2023 1:45 PM CDT Clinical Communication Virtual Review in [place], [place] [address] [place] [address] 12/12/2023 11:00 AM CDT Lab Department of Laboratory Medicine and Pathology, [facility], in [place], [place] [address] [place] [phone] Remigio Frey M.D., Ph.D. [address] [place] [phone] 12/12/2023 1:00 PM CDT Office Visit Department of Oncology in [place], [place] [address] [place] [phone] Mc Mcknight M.D., Ph.D. [address] [place] [phone] 12/12/2023 3:00 PM CDT Infusion Department of Oncology in [place], [place] [address] [place] [phone] Remigio Frey M.D., Ph.D. [address] [place] [phone] 12/29/2023 1:15 PM CDT Clinical Communication Virtual Review in [place], [place] [address] [place] [address] 01/02/2024 10:00 AM CDT Lab Department of Laboratory Medicine and Pathology, [facility], in [place], [place] [address] [place] [phone] Blanche Monzon P.A.-C., M.S. [address] [place] [phone] 01/02/2024 11:30 AM CDT Appointment Department of Radiology, [facility] in [place], [place] [address] [place] [phone] Blanche Monzon P.A.-C., M.S. [address] [place] [phone] 01/02/2024 1:00 PM CDT Office Visit Department of Oncology in [place], [place] [address] [place] [phone] Mc Mcknight M.D., Ph.D. [address] [place] [phone] 01/02/2024 3:00 PM CDT Infusion Department of Oncology in [place], [place] [address] [place] [phone] Blanche Monzon P.A.-C., M.S. [address] [place] [phone] 01/09/2024 10:15 AM SERVICE CAPTAIN Clinical Communication Virtual Review in [place], [place] 200 [place] [address] 01/11/2024 9:00 AM SERVICE CAPTAIN Appointment Department of Radiology, [facility] in [place], [place] [address] [place] [phone] Tammie Hooks M.D., Ph.D. [address] [place] [phone] 01/11/2024 2:00 PM SERVICE CAPTAIN Appointment Department of Radiation Oncology in [place], [place] [address] [place] [phone] Tammie Hooks M.D., Ph.D. [address] [place] [place] [phone] 01/17/2024 9:00 AM SERVICE CAPTAIN Clinical Communication Virtual Review in [place], [place] [address] [place] [phone] 01/19/2024 1:00 PM SERVICE CAPTAIN Comprehensive Visit Department of Neurology in [place], [place] [address] [place] [phone] Kory Alas M.B., Ch.B. [address] [place] [phone] documented as of this encounter Visit Diagnoses Not on filedocumented in this encounter Care Teams Associate Professor Of Law Relationship Specialty Start Date End Date Elsewhere, Pcp PCP - General Family Medicine 02/01/22 documented as of this encounter
--- OUTSIDE RECORDS SUMMARY | 2023-11-15 14:19 | XMS_ITS ---
Author Organization [facility] Address [address] [place] [address] Care Team Providers Care Virtual Customer Assistant Name Role Phone Elsewhere, Pcp Primary Care Provider Unavailabl e Active Problems Problem Noted Date Diagnosed Date Secondary Malignant Neoplasm Bone 07/28/2023 Other Prison Current Drug Therapy 07/28/2023 Malignant Neoplasm Of Neck Squamous Cell 022 Squamous Cell Carcinoma Of Skin Of Scalp And Nec k 01/26/2022 Overview (01/26/2022): Added automatically from request for surgery [id number] Amnesia 01/26/2022 Disorder Of The Skin And [...] Provider:Blanche Monzon P.A.-C., M.S. Linked Problems Other Prison Current Drug TherapySecondary Malignant Neoplasm Bone (HCC)Squamous Cell Carcinoma Of Skin Of Scalp And Neck Treatment Medications Current Day (Day 1 , Cycle 6 - Planned for 11/21/2023) Next Day (Day 1, Cycle 7 - Planned for 12/12/2023) cemiplimab-rwlc (Libtayo)cemiplimab-rwlc (Libtayo) IVPB solution cemiplimab-rwlc 350 [...] Treated Prescribed Fraction Dose Prescribed Total Dose [id number] 04/29/2022 39 30 of 30 220 cGy 6,600 cGy [id number] 04/29/2022 39 30 of 30 200 cGy 6,000 cGy Reference Point Last Treated On Elapsed Days Session Dose Total Dose [id number] 04/29/2022 39 200 cGy 6,000 cGy [id number] 04/29/2022 39 220 cGy 6,600 cGy
--- OUTSIDE RECORDS SUMMARY | 2023-11-15 14:19 | XMS_ITS ---
Author Organization [facility] Address [address] [place] [address] Care Team Providers Care Production Troubleshooter Name Role Phone Unavailable Unavailable Unavailable Surgery Details Not on file Complications Check Surgery Details section. Procedure Estimated Blood Loss Check Surgery Details section. Procedure Findings Check Surgery Details section. Procedure Specimens Taken Check Surgery Details section.
--- OUTSIDE RECORDS SUMMARY | 2023-11-15 14:19 | XMS_ITS | Encounter Summary ---
Author Organization [facility] Address [address] [place] [address] Care Team Providers Care Fbi Profiler Name Role Phone Elsewhere, Pcp Primary Care Provider Unavailabl e Reason for Visit * Outpatient (Routine) - Closed Specialty Diagnoses / Procedures Referred By Ryan cronin Referred To Contact Diagnoses Effusion Knee Right Procedures PMR Peripheral injection/USGI (Procedure Only) Antolin Mclaughlin M.D. [address] [place] [address] [facility] Referral ID Status Reason Start Date Expiration Date Visits Re quested Visits Authorized [id number] Closed 11/13/2023 11/12/2024 1 1 Encounter Details Date Type Department Care Team (Latest Contact Info) Description 11/14/2023 2:30 PM CDT Procedure visit Department of Physical Medicine and Rehabilitation in [place], [place] 200 [place] [phone] Divine Ayala M.D. [address] [place] [phone] Effusion Knee Right Social History Tobacco Use [...] often do you attend chur ch or anabaptist services? Never 01/24/2022 Do you belong to [...] and heating? Not hard at all 09/02/2022 [facility] Occupat ional [facility] - Occupational Stress [...] situation today? I have a [facility] place to live 02/16/2023 Education Answer Date Recorded What is the highest level of school you have completed or the highest degree you have received? Bachelor's degree (e.g., BA, AB, BS) 01/24/2022 Sex and Gender Information Value Date Recorded Sex Assigned at Female 01/24/2022 7:37 PM ENVELOPE MACHINE ADJUSTER Gender Identity Female 01/24/2022 7:37 PM ENVELOPE MACHINE ADJUSTER Sexual Orientation Straight 01/24/2022 7: 37 PM ENVELOPE MACHINE ADJUSTER documented as of this encounter Procedure Notes * Divine Ayala M.D. - 11/14/2023 2:30 PM CDTAssociated Order(s): PMR Peripheral injection/USGI (Procedure Only): R knee joint Pre-Procedure Diagnose(s): Effusion Knee Right Post-Procedure Diagnose(s): Effusion Knee Right Knee site- R knee joint : aspiration only Performed by: Divine Ayala M.D. Authorized by: Antolin Mclaughlin M.D. Care team members present 1. Nicolas Arango [...] completed successfully: yes Complications: no apparent complications Post-procedure instructions: avoid submersion of procedure site for 48 hours Discharge instructions: follow-up with ordering provider Comments Performed by Dr. Arango under my direct supervision. ATTESTATION STATEMENT A resident or fellow participated in the procedure, and the accounting consultant was present for the entire procedure. documented in this encounter Plan of Treatment Upcoming Encounters Date Type Department Care Team (Late st Contact Info) Description 11/17/2023 11:00 AM CDT Clinical Communication Virtual Review in [address] [phone] 11/21/2023 11:10 AM CDT Lab Department of Laboratory Medicine and Pathology, [facility], in [address] [phone] Remigio Frey M.D., Ph.D. [address] [place] [phone] 11/21/2023 1:00 PM CDT Office Visit Department of Oncology in [address] [phone] Mc Mcnkight M.D., Ph.D. [address] [place] [phone] 11/21/2023 2:15 PM CDT Infusion Department of Oncology in [address] [phone] Remigio Frey M.D., Ph.D. [address] [place] [phone] 12/11/2023 1:45 PM CDT Clinical Communication Virtual Review in [address] [phone] 12/12/2023 11:00 AM CDT Lab Department of Laboratory Medicine and Pathology, [facility], in [address] [phone] Remigio Frey M.D., Ph.D. [address] [place] [phone] 12/12/2023 1:00 PM CDT Office Visit Department of Oncology in [place], [place] [address] [place] [phone] Mc Mcknight M.D., Ph.D. [address] [place] [phone] 12/12/2023 3:00 PM CDT Infusion Department of Oncology in [place], [place] [address] [place] [phone] Remigio Frey M.D., Ph.D. [address] [place] [phone] 12/29/2023 1:15 PM CDT Clinical Communication Virtual Review in [place], [place] 200 [place] [address] 01/02/2024 10:00 AM CDT Lab Department of Laboratory Medicine and Pathology, [facility], in [place], [place] [address] [place] [phone] Blanche Monzon P.A.-C., M.S. [address] [place] [phone] 01/02/2024 11:30 AM CDT Appointment Department of Radiology, [facility], in [place], [place] [address] [place] [phone] Blanche Monzon P.A.-C., M.S. [address] [place] [phone] 01/02/2024 1:00 PM CDT Office Visit Department of Oncology in [place], [place] [address] [place] [phone] Mc Mcknight M.D., Ph.D. [address] [place] [phone] 01/02/2024 3:00 PM CDT Infusion Department of Oncology in [place], [place] [address] [place] [phone] Blanche Monzon P.A.-C., M.S. [address] [place] [phone] 01/09/2024 10:15 AM ENVELOPE MACHINE ADJUSTER Clinical Communication Virtual Review in [place], [place] 200 [place] [address] 01/11/2024 9:00 AM ENVELOPE MACHINE ADJUSTER Appointment Department of Radiology, [facility] in [place], [place] [address] [place] [phone] Tammie Hooks M.D., Ph.D. [address] [place] [phone] 01/11/2024 2:00 PM ENVELOPE MACHINE ADJUSTER Appointment Department of Radiation Oncology in [place], [place] [address] [place] [phone] Tammie Hooks M.D., Ph.D. [address] [place] [phone] 01/17/2024 9:00 AM ENVELOPE MACHINE ADJUSTER Clinical Communication Virtual Review in [address] [phone] 01/19/2024 1:00 PM ENVELOPE MACHINE ADJUSTER Comprehensive Visit Department of Neurology in [address] [phone] Kory Alas M.B., Ch.B. [address] [place] [phone] documented as of this encounter Procedures Procedure Name Priority Date/Time Associated Diagnosis Comments CRYSTAL ID, Routine 11/14/2023 2:50 PM CDT CELL COUNT AND DIFFERENTIAL, Routine 11/14/2023 2:50 PM CDT Effusion Knee Right LA ARTHCS ASP/INJ MJR JT W US Routine 11/14/2023 2:30 PM CDT Effusion Knee Right documented in this encounter Results * Crystal Identification, Body Fluid (11/14/2023 2:50 PM CDT) Fluid Type Synovial Fluid, Right Knee 11/14/2023 9:56 PM CDT DH Crystal ID None seen None seen 11/14/2023 9:56 PM CDT DHPM Fluid 11/14/2023 2:50 PM CDT 11/14/2023 5:58 PM CDT Antolin Mclaughlin M.D. LAB BODY FLUID S AND STOOLS ORDERABLES [facility] [address] [place] [address], [facility] [address] [place] [address] * Cell Count and Differential, Body Fluid (11/14/2023 2:50 PM CDT) Fluid Type Right knee synovial 11/14/2023 9:56 PM CDT DH Gross Appearance Cloudy 11/14/19 24 9:56 PM CDT DHPM Total Nucleated Cells 9252 /mcL 11/14/2023 9:56 PM CDT DH Comment: ----REFERENCE VALUE---- Synovial: <150 /mcL Peritoneal: <500 /mcL Pleural: <500 /mcL Pericardial: <500 /mcL ----ADDITIONAL INFORMATION---- This test has been modified from the expediter's instructions. Its performance characteristics were determined by [facility] in a manner consistent with CLIA requirements. This test has not been cleared or approved by the U.S. Food and Drug Administration. Neutrophils 52 % 11/14/2023 9:56 PM CDT [facility] Comment: ----REFERENCE VALUE---- Synovial: <25% Peritoneal: <25% Pleural: <25% Pericardial: <25% Lymphocytes 19 Synovial <75% % 11/14/2023 9:56 PM CDT DHPM Monocytes/Macropha ges 29 Synovial <70% % 11/14/2023 9:56 PM CDT DHPM Comment See Comment 11/15/2023 9:36 AM CDT DHPM Comment:No blasts or maligna nt cells seen. Reviewed by: Mago 11/15/2023 9:36 AM CDT DHPM Fluid (Synovial Fluid, Not Otherwise Specified) 11/14/2023 2:50 PM CDT 11/14/2023 5:58 PM CDT Antolin Mclaughlin M.D. LAB BODY FLUID S AND STOOLS ORDERABLES [facility] [address] [place] [address], [facility] [address] [place] [address] * LA ARTHCS ASP/INJ MJR JT W US (11/14/2023 [...] fellow participated in the procedure, and the accounting consultant was present for the entire procedure. Antolin Mclaughlin M.D. PROCEDURE/JEN R SURGICAL ORDERABLES MMODAL NA documented in this encounter Visit Diagnoses Diagnosis Effusion Knee Right documented in this encounter Administered Medications Inactive Administered Medications - up to 3 most recent administrations Medication Order MAR Action Action Date Dose Rate Site lidocaine (PF) 10 mg/mL (1 %) injection 2 mL (Xylocaine) 2 mL, injection, One-Time Injection, Starting on Mon11/14/23 at 1430, For 1 dose Given 11/14/2023 2:30 PM CDT 2 mL documented in this encounter Care Teams Fbi Profiler Relationship Specialty Start Date End Date Elsewhere, Pcp PCP - General Family Medicine 02/01/22 documented as of this encounter
--- OUTSIDE RECORDS SUMMARY | 2023-11-15 14:19 | XMS_ITS | Encounter Summary ---
Author Organization [facility] Address [address] [place] [address] Care Team Providers Care Head Mva Reactor Operator Name Role Phone Elsewhere, Pcp Primary Care Provider Unavailabl e Reason for Referral * Outpatient (Routine) - Closed Specialty Diagnoses / Procedures Referred By Contac t Referred To Contact Diagnoses Effusion Knee Right Procedures PMR Peripheral injection/USGI (Procedure Only) Antolin Mclaughlin M.D. 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 [address] [place] [address] [facility] Referral ID Status Reason Start Date Expiration Date Visits Re quested Visits Authorized [id number] Closed 11/01/2023 05/02/2025 1 1 Encounter Details Date Type Department Care Team (Latest Contact Info) Description 11/13/2023 10:00 AM CDT Comprehensive Visit Department of Physical Medicine and Rehabilitation in [place], [place] [address] [place] [address] Antolin Mclaughlin M.D. 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 I have a [facility] place to live 02/16/2023 Education Answer Date Recorded What is the highest level of school you have completed or the highest degree you have received? Bachelor's degree (e.g., BA, AB, BS) 01/24/2022 Sex and Gender Information Value Date Recorded Sex Assigned at Female 01/24/2022 7:37 PM FEDERAL MEDIATOR Gender Identity Female 01/24/2022 7:37 PM FEDERAL MEDIATOR Sexual Orientation Straight 01/24/2022 7: 37 PM FEDERAL MEDIATOR documented as of this encounter Consult Notes * Kristan Roldan D.O. - 11/13/2023 10:00 AM CDT SUBJECTIVE REQUESTING PROVIDER Blanche Monzon P.A.-C., M.S. REASON FOR CONSULT Right Knee Swelling and Pain HISTORY OF PRESENT ILLNESS Mrs. Martin Ismael a 78 y.o. female who presents today for evaluation of right knee swelling and pain that began about one month ago, around the time of a cemiplimab infusion. Prior to her knee swelling, Veronica had no complaints of her knees, and was able to walk 2 miles a day on a treadmill. Now, Veronica feels a pressure and generalized anterior knee pain at a 5/10, especially when she walks downstairs.Patient denies any trauma, misstep, or inciting event to her symptoms. She also endorses right kneestiffness and instability, but does not feel the need to use assistive gait devices. She takes tylenol and Advil, ices the knee, wears a compression sleeve, and elevates and stretches the joint, all of which provide some relief. Her knee is neither worsening nor improving. She denies fevers, chills, joint redness, heat, locking, or catching of the knee. Patient denies hip or lumbar pain, or radiating pain down her leg. Patient reportedly began complaining of R elbow and bilateral ankle pain following initiation of her cemiplimab infusions, but they have since resolved as of today. REVIEW OF SYSTEMS I have briefly reviewed the Review of Systems as noted on the Health history form. I am only responding to those symptoms which are directly relevant to the specific indication for my consultation. Irecommend that the patient follow up with their primary or referring provider to pursue any other symptoms which may be of concern. Pertinent items are noted in HPI; all other review of systems was negative. OBJECTIVE There were no vitals taken for this visit. PHYSICAL EXAM General/Constitutional: Alert. Well-developed, well-nourished individual in no acute distress. Mental Status/Psychiatric: Appropriate mood and affect. Grossly oriented with coherent speech and thought processing. Neurologic: Reflexes: Bilateral patellar muscle stretch reflexes are physiologic and symmetric. Musculoskeletal: Gait: Gait reveals normal marielle and stride. No buckling at the knee Strength: All major muscle groups of the bilateral lower extremities have normal and symmetric muscle strength, bulk, and tone. Palpation: Inspection and palpation of the knees reveals significant effusion of the right knee, nowarmth or erythema Joint ROM: Patient has limited right knee flexion to about 100?? before experiencing pain, full flexion on L knee. Patient is missing about 5?? of knee extension on the right. Provocative maneuvers: Hip: Negative ALLEGRA and FADIR Knee: Negative Madhuri, posterior drawer, and Laurie tests. No pain or laxity on stressing of medial and lateral collateral ligaments. Negative patellar apprehension, normal patellar glide. Cardiovascular: Popliteal pulses intact bilaterally. No lower extremity edema. 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 Effusion may be due to osteoarthritis, immunotherapy, meniscus or ligament tear, or gout/pseudogout. - Pending results of aspirate study, corticosteroid injection may be warranted versus MRI of knee EDUCATION We discussed the diagnosis and treatment plan in detail. The patient expressed understanding of thecontent. No apparent learning barriers were identified; learning preferences include listening. Signed by: Kristan Roldan D.O. 11/13/2023 10:19 AM CDT * Antolin Mclaughlin M.D. - 11/13/2023 10:00 AM CDT Mrs. Guevara is a very pleasant 78-year-old female who was seen in PM&R clinic today with Dr. Kristan Roldan. Please see his note for full details. The patient has a history of squamous cell carcinoma which is being treated with cemiplimab. Per the oncology notes she has been complaining of joint pains in her right elbow, right knee, and bilateral ankles since starting the immunotherapy. The patient states currently the elbow and ankles are doing well with no significant discomfort. However, she reports that the right knee has been painful and swollen, especially since the middle of October. She denies any injury or trauma to the knee at that time. She does have a history of previous knee arthroscopy with meniscus surgery on that knee in 2019. Currently her knee pain is diffuse. It is worse on the medial side of the knee. She denies any locking or catching. She denies any buckling or give-way in the knee. She denies erythema or warmthover the knee. She denies any other joint swelling. There has been no fevers or chills. She was seen locally where an x-ray was obtained. She has been using Tylenol, Advil, a knee sleeve,and ice. Her symptoms have been stable with no worsening, nor improvement. The pain is worse with climbing stairs, walking, and prolonged sitting. There is no increased pain at night. On my exam she has no knee pain with passive knee range of motion. She lacks 5- 10 degrees of full knee extension. She can flex to 100?? before having increased pain. She has a large right knee joint effusion. There is no erythema or warmth over the knee. She is tender diffusely across the joint line but more on the medial side. Ligamentous testing is negative. Patellar apprehension test is negative. We recommended a right knee joint aspiration to determine if this is inflammatory or noninflammatory. There is the question of whether this could be related to her current immunotherapy. I am not suspicious for a joint infection. Once I review the aspiration results I will contact the patient. In addition to inflammatory arthritis, the differential would also include localized pathology such as degenerative arthritis and degenerative meniscus tearing. The patient was in agreement with this plan. I answered her questions. EDUCATION We discussed the diagnosis and treatment plan in detail. The patient expressed understanding of thecontent. No apparent learning barriers were identified; learning preferences include listening. Signed by: Antolin Mclaughlin M.D. 11/13/2023 11:04 AM CDT documented in this encounter Plan of Treatment Upcoming Encounters Date Type Department Care Team (Late st Contact Info) Description 11/17/2023 11:00 AM CDT Clinical Communication Virtual Review in [address] [phone] 11/21/2023 11:10 AM CDT Lab Department of Laboratory Medicine and Pathology, [facility] in [address] [phone] Remigio Frey M.D., Ph.D. [address] [place] [phone] 11/21/2023 1:00 PM CDT Office Visit Department of Oncology in [address] [phone] Mc Mcknight M.D., Ph.D. [address] [place] [phone] 11/21/2023 2:15 PM CDT Infusion Department of Oncology in [address] [address] Remigio Frey M.D., Ph.D. [address] [place] [phone] 12/11/2023 1:45 PM CDT Clinical Communication Virtual Review in [address] [phone] 12/12/2023 11:00 AM CDT Lab Department of Laboratory Medicine and Pathology, [facility], in [place], [place] [address] [place] [phone] Remigio Frey M.D., Ph.D. [address] [place] [phone] 12/12/2023 1:00 PM CDT Office Visit Department of Oncology in [place], [place] [address] [place] [phone] Mc Mcknight M.D., Ph.D. [address] [place] [phone] 12/12/2023 3:00 PM CDT Infusion Department of Oncology in [place], [place] [address] [place] [phone] Remigio Frey M.D., Ph.D. [address] [place] [phone] 12/29/2023 1:15 PM CDT Clinical Communication Virtual Review in [place], [place] 200 [place] [address] 01/02/2024 10:00 AM CDT Lab Department of Laboratory Medicine and Pathology, [facility], in [place], [place] [address] [place] [phone] Blanche Monzon P.A.-C., M.S. [address] [place] [phone] 01/02/2024 11:30 AM CDT Appointment Department of Radiology, [facility], in [place], [place] [address] [place] [phone] Blanche Monzon P.A.-C., M.S. [address] [place] [phone] 01/02/2024 1:00 PM CDT Office Visit Department of Oncology in [place], [place] [address] [place] [phone] Mc Mcknight M.D., Ph.D. [address] [place] [phone] 01/02/2024 3:00 PM CDT Infusion Department of Oncology in [place], [place] [address] [place] [phone] Blanche Monzon P.A.-C., M.S. [address] [place] [phone] 01/09/2024 10:15 AM FEDERAL MEDIATOR Clinical Communication Virtual Review in [address] [phone] 01/11/2024 9:00 AM FEDERAL MEDIATOR Appointment Department of Radiology, [facility] in [place], [place] [address] [place] [phone] Tammie Hooks M.D., Ph.D. [address] [place] [phone] 01/11/2024 2:00 PM FEDERAL MEDIATOR Appointment Department of Radiation Oncology in [address] [phone] Tammie Hooks M.D., Ph.D. [address] [place] [phone] 01/17/2024 9:00 AM FEDERAL MEDIATOR Clinical Communication Virtual Review in [address] [address] 01/19/2024 1:00 PM FEDERAL MEDIATOR Comprehensive Visit Department of Neurology in [place], [place] [address] [place] [phone] Kory Alas M.B., Ch.B. [address] [place] [address] Scheduled Orders Name Type Priority Associated Diagnoses Orde r Schedule Crystal Identification, Body Fluid Lab Routine Effusion Knee Right Expected: 11/13/2023, Expires: 02/11/2025 documented as of this encounter Results * Cell Count and Differential, Body Fluid [...] This test has been modified from the salvage supervisor's instructions. Its performance characteristics were determined by [facility] in a manner consistent with CLIA requirements. This test has not been cleared or approved by the U.S. Food and Drug Administration. Neutrophils 52 % 11/14/2023 9:56 PM CDT [facility] Comment: ----REFERENCE VALUE---- Synovial: <25% Peritoneal: <25% Pleural: <25% Pericardial: <25% Lymphocytes 19 Synovial <75% % 11/14/2023 9:56 PM CDT [facility] Monocytes/Macropha ges 29 Synovial <70% % 11/14/2023 9:56 PM CDT [facility] Comment See Comment 11/15/2023 9:36 AM CDT [facility] Comment:No blasts or maligna nt cells seen. Reviewed by: Tech 11/15/2023 9:36 AM CDT [facility] Fluid (Synovial Fluid, Not Otherwise Specified) 11/14/2023 2:50 PM CDT 11/14/2023 5:58 PM CDT Antolin Mclaughlin M.D. LAB BODY FLUID S AND STOOLS ORDERABLES [facility] [address] [place] [address], [facility] [address] [place] [address] * MA ARTHCS ASP/INJ MJR JT W US (11/14/2023 [...] fellow participated in the procedure, and the golf tournament consultant was present for the entire procedure. [...] aspect ofmedial femoral condyle. Antolin Mclaughlin M.D. 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
--- OUTSIDE RECORDS SUMMARY | 2023-11-15 14:19 | XMS_ITS | Encounter Summary ---
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 [address] [place] [phone] [facility] [address] [place] [phone] Referral ID Status Reason Start Date Expiration Date V isits Requested Visits Authorized [id number] Authorized 07/28/2023 07/27/2025 99 99 Encounter Details Date Type Department Care Team (Late st Contact Info) Description 11/01/2023 2:45 PM CDT Infusion Department of Oncology in [place], [place] [address] [place] [phone] Remigio Frey M.D., Ph.D. 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 I have a [facility] place to live 02/16/2023 Education Answer Date Recorded What is the highest level of school you have completed or the highest degree you have received? Bachelor's degree (e.g., BA, AB, BS) 01/24/2022 Sex and Gender Information Value Date Recorded Sex Assigned at Female 01/24/2022 7:37 PM GETTERING OPERATOR Gender Identity Female 01/24/2022 7:37 PM GETTERING OPERATOR Sexual Orientation Straight 01/24/2022 7: 37 PM GETTERING OPERATOR documented as of this encounter Plan of Treatment Upcoming Encounters Date Type Department Care Team (Late st Contact Info) Description 11/17/2023 11:00 AM CDT Clinical Communication Virtual Review in [address] [phone] 11/21/2023 11:10 AM CDT Lab Department of Laboratory Medicine and Pathology, [facility], in [address] [phone] Remigio Frey M.D., Ph.D. [address] [place] [phone] 11/21/2023 1:00 PM CDT Office Visit Department of Oncology in [address] [phone] Mc Mcknight M.D., Ph.D. [address] [place] [phone] 11/21/2023 2:15 PM CDT Infusion Department of Oncology in [address] [phone] Remigio Frey M.D., Ph.D. [address] [place] [phone] 12/11/2023 1:45 PM CDT Clinical Communication Virtual Review in [address] [phone] 12/12/2023 11:00 AM CDT Lab Department of Laboratory Medicine and Pathology, [facility], in [address] [phone] Remigio Frey M.D., Ph.D. [address] [place] [phone] 12/12/2023 1:00 PM CDT Office Visit Department of Oncology in [address] [phone] Mc Mcknight M.D., Ph.D. [address] [place] [phone] 12/12/2023 3:00 PM CDT Infusion Department of Oncology in [place], [place] [address] [place] [phone] Remigio Frey M.D., Ph.D. [address] [place] [phone] 12/29/2023 1:15 PM CDT Clinical Communication Virtual Review in [place], [place] 200 [place] [address] 01/02/2024 10:00 AM CDT Lab Department of Laboratory Medicine and Pathology, [facility] in [place], [place] [address] [place] [phone] Blanche Monzon P.A.-C., M.S. [address] [place] [phone] 01/02/2024 11:30 AM CDT Appointment Department of Radiology, [facility], in [place], [place] [address] [place] [phone] Blanche Monzon P.A.-C., M.S. [address] [place] [phone] 01/02/2024 1:00 PM CDT Office Visit Department of Oncology in [place], [place] [address] [place] [phone] Mc Mcknight M.D., Ph.D. [address] [place] [phone] 01/02/2024 3:00 PM CDT Infusion Department of Oncology in [place], [place] [address] [place] [phone] Blanche Monzon P.A.-C., M.S. [address] [place] [phone] 01/09/2024 10:15 AM GETTERING OPERATOR Clinical Communication Virtual Review in [address] [phone] 01/11/2024 9:00 AM GETTERING OPERATOR Appointment Department of Radiology, [facility] in [place], [place] [address] [place] [phone] Tammie Hooks M.D., Ph.D. [address] [place] [phone] 01/11/2024 2:00 PM GETTERING OPERATOR Appointment Department of Radiation Oncology in [address] [phone] Tammie Hooks M.D., Ph.D. [address] [place] [phone] 01/17/2024 9:00 AM GETTERING OPERATOR Clinical Communication Virtual Review in [address] [phone] 01/19/2024 1:00 PM GETTERING OPERATOR Comprehensive Visit Department of Neurology in [address] [phone] Kory Alas M.B., Ch.B. [address] [place] [phone] documented as of this encounter Visit Diagnoses Diagnosis Squamous Cell Carcinoma Of Skin Of Scalp And Neck- Primary Other Residential Current Drug Therapy Secondary Malignant Neoplasm Bone (HCC) Malignant Neoplasm Of Neck Squamous Cell documented in this encounter Administered Medications Inactive Administered Medications - up to 3 most recent administrations Medication Order MAR Action Action Date Dose Rate Site cemiplimab-rwlc 350 mg in NaCl 0.9% 282 mL IVPB (Libtayo) 350 mg, intravenous, at 564 mL/hr, Administer over 30 Minutes, Once, On Mon11/01/23 at 1445, For 1 dose, Administer through in-line or add-on 0.2-micron to 5-micron filter. New Bag 11/01/2023 3:09 PM CDT 350 mg 564 mL/hr documented in this encounter Care Teams Strategic Procurement Manager Relationship Specialty Start Date End Date Elsewhere, Pcp PCP - General Family Medicine 02/01/22 documented as of this encounter
--- OUTSIDE RECORDS SUMMARY | 2023-11-15 14:19 | XMS_ITS | Referral Summary ---
Author Organization [facility] Address [address] [place] [address] Care Team Providers Care Pulp Bleacher Name Role Phone Elsewhere, Pcp Primary Care Provider Unavailabl e Source Comments Patient records contain information from all sites at [facility]. For routine questions regarding patient records, call [phone] during business hours, M-F 8:00 AM - 5:00 PM Central Time. Record requests for emergency care only can be directed to [phone] at any time.[facility] Encounters Date Type Department Care Team Description 11/15/2023 Orders Only Department of Physical Medicine and Rehabilitation in [place], [place] [address] [place] [address] Antolin Mclaughlin M.D. Effusion Knee Right (Primary Dx) 11/14/2023 2:30 PM CDT Procedure visit Department of Physical Medicine and Rehabilitation in [place], [place] [address] [place] [address] Divine Ayala M.D. Effusion Knee Right 11/13/2023 11:05 AM CDT Ancillary Procedure Department of Radiology in [place], [place] [address] [place] [address] Antolin Mclaughlin M.D. Effusion Knee Right 11/13/2023 10:00 AM CDT Comprehensive Visit Department of Physical Medicine and Rehabilitation in [place], [place] [address] [place] [phone] Antolin Mclaughlin M.D. Effusion Knee Right (Primary Dx); Malignant Neoplasm Of Neck Squamous Cell; Secondary Malignant Neoplasm Bone (HCC); Other Junior Java Developer Current Drug Therapy; Squamous Cell Carcinoma Of Skin Of Scalp And Neck 11/10/2023 8:00 AM CDT Office Visit Department of Dermatology in [place], [place] [address] [place] [phone] Emily Bell M.D. Nevi Multiple (Primary Dx); Squamous Cell Carcinoma Of Skin Of Scalp And Neck; Secondary Malignant Neoplasm Bone (HCC); Other Junior Java Developer Current Drug Therapy; Dermatoheliosis; Keratosis Seborrheic; Psoriasis; Dermatitis Discharge Disposition: Home or Self Care 11/01/2023 Clinical Communication Department of Oncology in [place], [place] [address] [place] [phone] Blanche Monzon P.A.-C., M.S. 11/01/2023 1:40 PM CDT Office Visit Department of Oncology in [place], [place] [address] [place] [phone] Blanche Monzon P.A.-C., M.S. Malignant Neoplasm Of Neck Squamous Cell (Primary Dx); Squamous Cell Carcinoma Of Skin Of Scalp And Neck; Secondary Malignant Neoplasm Bone (HCC); Other Retirement Current Drug Therapy; Pain In Joint; Effusion Joint 11/01/2023 2:45 PM CDT Infusion Department of Oncology in [place], [place] [address] [place] [phone] Remigio Frey M.D., Ph.D. Squamous Cell Carcinoma Of Skin Of Scalp And Neck (Primary Dx); Other Retirement Current Drug Therapy; Secondary Malignant Neoplasm Bone (HCC); Malignant Neoplasm Of Neck Squamous Cell 10/30/2023 11:00 AM CDT Clinical Communication Virtual Review in [place], [place] [address] [place] [address] 10/11/2023 3:30 PM CDT - 10/12/2023 10:05 AM CDT Hospital Encounter Department of Radiation Oncology in [place], [place] [address] [place] [phone] Tammie Hooks M.D., Ph.D. Squamous Cell Carcinoma Of Skin Of Scalp And Neck (Primary Dx) 10/11/2023 7:41 AM CDT - 10/11/2023 3:29 PM CDT Hospital Encounter Department of Radiology, [facility] in [place], [place] [address] [place] [phone] Blanche Monzon P.A.-C., M.S. Squamous Cell Carcinoma Of Skin Of Scalp And Neck; Secondary Malignant Neoplasm Bone (HCC); Other Junior Java Developer Current Drug Therapy Discharge Disposition: Home or Self Care 10/11/2023 6:45 AM CDT - 10/11/2023 7:40 AM CDT Hospital Encounter Department of Radiology, [facility] in [place], [place] [address] [place] [phone] Blanche Monzon P.A.-C., M.S. Squamous Cell Carcinoma Of Skin Of Scalp And Neck; Secondary Malignant Neoplasm Bone (HCC); Other Retirement Current Drug Therapy Discharge Disposition: Home or Self Care 10/11/2023 2:00 PM CDT Infusion Department of Oncology in [place], [place] [address] [place] [phone] Blanche Monzon P.A.-C., M.S. Malignant Neoplasm Of Neck Squamous Cell (Primary Dx); Other Retirement Current Drug Therapy; Secondary Malignant Neoplasm Bone (HCC); Squamous Cell Carcinoma Of Skin Of Scalp And Neck 10/11/2023 1:00 PM CDT Office Visit Department of Oncology in [place], [place] [address] [place] [phone] Remigio Frey M.D., Ph.D. Squamous Cell Carcinoma Of Skin Of Scalp And Neck (Primary Dx); Other Junior Java Developer Current Drug Therapy; Secondary Malignant Neoplasm Bone (HCC) 10/09/2023 10:45 AM CDT Clinical Communication Virtual Review in [place], [place] [address] [place] [address] Blood Pressure 09/19/2023 1:00 PM CDT Office Visit Department of Oncology in [place], [place] [address] [place] [phone] Blanche Monzon P.A.-C., M.S. Squamous Cell Carcinoma Of Skin Of Scalp And Neck (Primary Dx); Secondary Malignant Neoplasm Bone (HCC); Other Junior Java Developer Current Drug Therapy 09/19/2023 2:00 PM CDT Infusion Department of Oncology in [place], [place] [address] [place] [phone] Blanche Monzon P.A.-C., M.S. Malignant Neoplasm Of Neck Squamous Cell (Primary Dx); Secondary Malignant Neoplasm Bone (HCC); Squamous Cell Carcinoma Of Skin Of Scalp And Neck; Other Junior Java Developer Current Drug Therapy 08/29/2023 2:30 PM CDT Infusion Department of Oncology in [place], [place] [address] [place] [phone] Blanche Monzon P.A.-C., M.S. Malignant Neoplasm Of Neck Squamous Cell (Primary Dx); Secondary Malignant Neoplasm Bone (HCC); Squamous Cell Carcinoma Of Skin Of Scalp And Neck; Other Retirement Current Drug Therapy 08/29/2023 1:40 PM CDT Office Visit Department of Oncology in [address] [phone] Farnaz Mccarty APRN, C.N.P. Secondary Malignant Neoplasm Bone (HCC); Squamous Cell Carcinoma Of Skin Of Scalp And Neck; Other Retirement Current Drug Therapy 08/28/2023 Orders Only Department of Radiation Oncology in [address] [phone] Tammie Hooks M.D., Ph.D. 08/28/2023 10:00 AM CDT Clinical Communication Virtual Review in [address] [phone] 08/16/2023 Refill Department of Radiation Oncology in [address] [phone] Tammie Hooks M.D., Ph.D. Med Refill 08/16/2023 Clinical Communication Department of Oncology in [place], [place] [address] [place] [address] Tammie Adams R.N. Sx- foot vibration from Last 3 Months Allergies Active Allergy [...] Date Secondary Malignant Neoplasm Bone 07/28/2023 Other Junior Java Developer Current Drug Therapy 07/28/2023 Malignant Neoplasm Of Neck Squamous Cell 022 Squamous Cell Carcinoma Of Skin Of Scalp And Nec k 01/26/2022 Overview (01/26/2022): Added automatically from request for surgery [id number] Amnesia 01/26/2022 Disorder Of The Skin And [...] heating? Not hard at all 09/02/2022 [facility] - [...] your living situation today? I have a [facility] to live 02/16/2023 Education Answer Date Recorded What is the highest level of school you have completed or the highest degree you have received? Bachelor's degree (e.g., BA, AB, BS) 01/24/2022 Sex and Gender Information Value Date Recorded Sex Assigned at Female 01/24/2022 7:37 PM BIOINFORMATICS ASSOCIATE Gender Identity Female 01/24/2022 7:37 PM BIOINFORMATICS ASSOCIATE Sexual Orientation Straight 01/24/2022 7: 37 PM BIOINFORMATICS ASSOCIATE Last Filed Vital Signs Vital Sign Reading [...] AM CDT Clinical Communication Virtual Review in [address] [phone] 11/21/2023 11:10 AM CDT Lab Department of Laboratory Medicine and Pathology, [facility], in [place], [place] [address] [place] [phone] Remigio Frey M.D., Ph.D. [address] [place] [phone] 11/21/2023 1:00 PM CDT Office Visit Department of Oncology in [address] [phone] Mc Mcknight M.D., Ph.D. [address] [place] [phone] 11/21/2023 2:15 PM CDT Infusion Department of Oncology in [address] [phone] Remigio Frey M.D., Ph.D. [address] [place] [phone] 12/11/2023 1:45 PM CDT Clinical Communication Virtual Review in [address] [phone] 12/12/2023 11:00 AM CDT Lab Department of Laboratory Medicine and Pathology, [facility], in [address] [phone] Remigio Frey M.D., Ph.D. [address] [place] [phone] 12/12/2023 1:00 PM CDT Office Visit Department of Oncology in [address] [place] [phone] Mc Mcknight M.D., Ph.D. [address] [place] [phone] 12/12/2023 3:00 PM CDT Infusion Department of Oncology in [place], [place] [address] [place] [phone] Remigio Frey M.D., Ph.D. [address] [place] [phone] 12/29/2023 1:15 PM CDT Clinical Communication Virtual Review in [place], [place] [address] [place] [address] 01/02/2024 10:00 AM CDT Lab Department of Laboratory Medicine and Pathology, [facility] in [place], [place] [address] [place] [phone] Blanche Monzon P.A.-C., M.S. [address] [place] [phone] 01/02/2024 11:30 AM CDT Appointment Department of Radiology, [facility], in [place], [place] [address] [place] [phone] Blanche Monzon P.A.-C., M.S. [address] [place] [phone] 01/02/2024 1:00 PM CDT Office Visit Department of Oncology in [place], [place] [address] [place] [phone] Mc Mcknight M.D., Ph.D. [address] [place] [phone] 01/02/2024 3:00 PM CDT Infusion Department of Oncology in [place], [place] [address] [place] [phone] Blanche Monzon P.A.-C., M.S. [address] [place] [phone] 01/09/2024 10:15 AM BIOINFORMATICS ASSOCIATE Clinical Communication Virtual Review in [address] [phone] 01/11/2024 9:00 AM BIOINFORMATICS ASSOCIATE Appointment Department of Radiology, [facility] in [address] [phone] Tammie Hooks M.D., Ph.D. [address] [place] [phone] 01/11/2024 2:00 PM BIOINFORMATICS ASSOCIATE Appointment Department of Radiation Oncology in [address] [phone] Tammie Hooks M.D., Ph.D. [address] [place] [phone] 01/17/2024 9:00 AM BIOINFORMATICS ASSOCIATE Clinical Communication Virtual Review in [address] [phone] 01/19/2024 1:00 PM BIOINFORMATICS ASSOCIATE Comprehensive Visit Department of Neurology in [address] [phone] Kory Alas M.B., Ch.B. [address] [place] [phone] Medical Devices Implanted Type Area Leather Goods Assembler Device Identifier Shelf Expiration Date Model / Serial / Lot Hardware E.G. Pins/Screws/Ro ds Hardware e.g. pins/screws/r ods Mouth Procedures Procedure Name Priority Date/Time Associated Diagnosis Comments CRYSTAL ID, Routine 11/14/2023 2:50 PM CDT CELL COUNT AND DIFFERENTIAL, Routine 11/14/2023 2:50 PM CDT Effusion Knee Right MA ARTHCS ASP/INJ MJR JT W US Routine [...] S Routine 11/01/2023 11:39 AM CDT Other Junior Java Developer Current Drug Therapy 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 BILIRUBIN DIRECT, S/P Routine 11/01/2023 11:39 AM CDT Other Junior Java Developer Current Drug Therapy 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 COMPREHENSIVE METABOLIC PANEL, S/P Routine 11/01/2023 11:39 AM CDT Other Junior Java Developer Current Drug Therapy 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 CBC WITH DIFFERENTIAL, B Routine 11/01/2023 11:38 AM CDT Other Retirement Current Drug Therapy Secondary Malignant Neoplasm Bone [...] Neck Secondary Malignant Neoplasm Bone (HCC) Other Junior Java Developer Current Drug Therapy CT ABDOMEN PELVIS WITH IV CONTRAST RAD - Routine (most inpatients and all outpatients) 10/11/2023 7:40 AM CDT Squamous Cell Carcinoma Of Skin Of Scalp And Neck Secondary Malignant Neoplasm Bone (HCC) Other Junior Java Developer Current Drug Therapy CT CHEST WITH IV CONTRAST RAD - Routine (most inpatients and all outpatients) 10/11/2023 7:40 AM CDT Squamous Cell Carcinoma Of Skin Of Scalp And Neck Secondary Malignant Neoplasm Bone (HCC) Other Junior Java Developer Current Drug Therapy CT NECK SOFT TISSUE WITH IV CONTRAST RAD - Routine (most inpatients and all outpatients) 10/11/2023 7:40 AM CDT Squamous Cell Carcinoma Of Skin Of Scalp And Neck Secondary Malignant Neoplasm Bone (HCC) Other Junior Java Developer Current Drug Therapy THYROID FUNCTION CASCADE, S Routine 10/11/2023 6:41 AM CDT Other Junior Java Developer Current Drug Therapy 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 BILIRUBIN DIRECT, S/P Routine 10/11/2023 6:41 AM CDT Other Junior Java Developer Current Drug Therapy 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 COMPREHENSIVE METABOLIC PANEL, S/P Routine 10/11/2023 6:41 AM CDT Other Retirement Current Drug Therapy 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 CBC WITH DIFFERENTIAL, B Routine 10/11/2023 6:41 AM CDT Other Retirement Current Drug Therapy 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 THYROID FUNCTION CASCADE, S Routine 09/19/2023 10:57 AM CDT 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 Other Junior Java Developer Current Drug Therapy BILIRUBIN DIRECT, S/P Routine 09/19/2023 10:57 AM CDT 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 Other Junior Java Developer Current Drug Therapy COMPREHENSIVE METABOLIC PANEL, S/P Routine 09/19/2023 10:57 AM CDT 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 Other Junior Java Developer Current Drug Therapy CBC WITH DIFFERENTIAL, B Routine 09/19/2023 10:57 AM CDT 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 Other Junior Java Developer Current Drug Therapy THYROID FUNCTION CASCADE, S Routine 08/29/2023 11:30 AM CDT 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 Other Junior Java Developer Current Drug Therapy BILIRUBIN DIRECT, S/P Routine 08/29/2023 11:30 AM CDT 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 Other Junior Java Developer Current Drug Therapy COMPREHENSIVE METABOLIC PANEL, S/P Routine 08/29/2023 11:30 AM CDT 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 Other Retirement Current Drug Therapy CBC WITH DIFFERENTIAL, B Routine 08/29/2023 11:30 AM CDT 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 Other Junior Java Developer Current Drug Therapy from Last 3 Months Results * Crystal Identification, Body Fluid (11/14/2023 2:50 PM CDT) Fluid Type Synovial Fluid, Right Knee 11/14/2023 9:56 PM CDT [facility] Crystal ID None seen None seen 11/14/2023 9:56 PM CDT [facility] Fluid 11/14/2023 2:50 PM CDT 11/14/2023 5:58 PM CDT Antolin Mclaughlin M.D. LAB BODY FLUID S AND STOOLS ORDERABLES [facility] [address] [place] [address], [facility] [address] [place] [address] * Cell Count and Differential, Body Fluid [...] This test has been modified from the soil technician's instructions. Its performance characteristics were determined by [facility] in a manner consistent with CLIA requirements. This test has not been cleared or approved by the U.S. Food and Drug Administration. Neutrophils 52 % 11/14/2023 9:56 PM CDT [facility] Comment: ----REFERENCE VALUE---- Synovial: <25% Peritoneal: <25% Pleural: <25% Pericardial: <25% Lymphocytes 19 Synovial <75% % 11/14/2023 9:56 PM CDT [facility] Monocytes/Macropha ges 29 Synovial <70% % 11/14/2023 9:56 PM CDT [facility] Comment See Comment 11/15/2023 9:36 AM CDT PM Comment:No blasts or maligna nt cells seen. Reviewed by: Mago 11/15/2023 9:36 AM CDT [facility] Fluid (Synovial Fluid, Not Otherwise Specified) 11/14/2023 2:50 PM CDT 11/14/2023 5:58 PM CDT Antolin Mclaughlin M.D. LAB BODY FLUID S AND STOOLS ORDERABLES [facility] [address] [place] [address], [facility] [address] [place] [address] * MA ARTHCS ASP/INJ MJR JT W [...] with ordering provider Comments Performed by Dr. Arnago under my direct supervision. ATTESTATION STATEMENT A resident or fellow participated in the procedure, and the behavioral health consultant was present for the entire procedure. [...] Antolin Mclaughlin M.D. IMG DIAGNOSTIC IMAGING PROCEDURES * Thyroid Function Osborne (11/01/2023 11:39 AM CDT) Only the most recent of4 resultswithin the time period is included. TSH, Sensitive 3.2 0.3 - 4.2 mIU/L 11/01/2023 12:57 PM CDT [facility] Blood (Blood, Venous) 11/01/2023 11:39 AM CDT 11/01/2023 12:00 PM CDT Remigio Frey M.D., Ph.D. LAB BLOOD AD D-ON Performing Organization Address City/[facility] Co de Phone Number [facility] [address] [facility] [address] [place] [address] * Folate (11/01/2023 11:39 AM CDT) [facility] Folate, S >20.0 >=4.0 mcg/L 11/01/2023 12:47 PM CDT [facility] Blood (Blood, Venous) 11/01/2023 11:39 AM CDT 11/01/2023 12:00 PM CDT Tammie Hooks M.D., Ph.D. LAB BLOOD A DD-ON Performing Organization Address [facility] de Phone Number [facility] [address] [facility] [address] [place] [address] * Vitamin B12 Assay (11/01/2023 11:39 AM CDT) [facility] Vitamin B12 Assay, S 753 180 - 914 ng/L 11/01/2023 12:48 PM CDT [facility] Comment: ----ADDITIONAL INFORMATION---- In patients being evaluated [...] LAB BLOOD A DD-ON Performing Organization Address [facility] Co de Phone Number [facility] [address] [facility] [address] [place] [address] * Bilirubin, Direct (11/01/2023 11:39 AM CDT) Only the most recent of4 resultswithin the time period is included. Pathologist [facility] Bilirubin, Direct, S <0.2 0.0 - 0.3 mg/dL 11/01/2023 12:57 PM CDT [facility] Blood (Blood, Venous) 11/01/2023 11:39 AM CDT 11/01/2023 12:00 PM CDT Remigio Frey M.D., Ph.D. LAB BLOOD AD D-ON [facility] [address] [place] [address], [facility] [address] [place] [address] * Comprehensive Metabolic Panel (11/01/2023 11:39 AM CDT) Only the most recent of4 resultswithin the time period is included. Pathologist [facility] Potassium, S 4.5 3.6 - 5.2 mmol/L [...] Frey M.D., Ph.D. LAB BLOOD AD D-ON [address] [address], [place] [address] * (ABNORMAL) CBC with Differential, Blood (11/01/2023 [...] Frey M.D., Ph.D. LAB BLOOD AD D-ON [facility] [address] [place] [address], [facility] DTL [facility] [address] [place] [address] [facility] [address] [place] [address] * US venous LE RT-Outside US (10/25/2023 4:25 PM CDT) Narrative [facility] - 11/01/2023 3:14 PM CDT This order has been created and auto-finalized to support the import of outside images. If available, original interpretation can be found on the Media Tab in Chart Review, in Document Viewer, as an image in QREADS or as an Addendum. If a re-interpretation or overread is required please follow defined workflow.?? Provider Not In System IMG US PROCEDURES [facility] NA * XR knee RT 3V-Outside Skeletal Xray (10/25/2023 4:05 PM CDT) Narrative [facility] - 11/01/2023 3:13 PM CDT This order [...] In System IMG DIAGNOSTIC IM AGING PROCEDURES Performing Organization Address [facility] Co de Phone Number [facility] NA * MR Brain without and [...] cells are clear. Procedure Note Juma Lennon M.B.BNeyS., M.MED. - 10/11/2023 EXAM: MR BRAIN WITHOUT [...] with direct visualization. Blanche Monzon P.A.-C. M.S. [facility] MRI PROCEDURES * [...] Neck, Neuroradiology [facility] , Neuroradiology [facility], Neuroradiology [facility] N/A Computed Tomography, Compute d Tomography [...] Monzon P.A.-C. M.S. IMG CT P ROCEDURES from Last 3 Months Advance Directives For more information, please contact: [phone] Documents on File Type Date Recorded Patient Senior Peoplesoft Developer Expl anation Advance Directives 02/02/2022 9:49 AM INV ALID * Full Code (Latest Code Status on File) Date Activated Date Inactivated Comments 02/01/2022 8:50 PM 02/02/2022 6:01 PM Question Answer Comments Full Code: Not Discussed Due to: Patient not available Care Teams Pulp Bleacher Relationship Specialty Start Date End Date Elsewhere, Pcp PCP - General Family Medicine 02/01/22
--- OUTSIDE RECORDS SUMMARY | 2023-11-15 14:19 | XMS_ITS | Encounter Summary ---
Author Organization [facility] Address [address] [place] [address] Care Team Providers Care Gallery Manager Name Role Phone Elsewhere, Pcp Primary Care Provider Unavailabl e Reason for Referral * Outpatient (Routine) - Authorized Specialty Diagnoses / Procedures Referred By Contac t Referred To Contact Rheumatology Diagnoses Effusion Knee Right Procedures Rheumatology - Diagnosis eConsult Antolin Mclaughlin M.D. 200 [place] [address] [facility] Referral ID Status Reason Start Date Expiration Date V isits Requested Visits Authorized [id number] Authorized 11/15/2023 11/14/2024 1 1 Encounter Details Date Type Department Care Team (Late st Contact Info) Description 11/15/2023 Orders Only Department of Physical Medicine and Rehabilitation in [place], [place] [address] [place] [phone] Antolin Mclaughlin M.D. [address] [place] [phone] Effusion Knee Right (Primary Dx) Social History Tobacco Use Types [...] your living situation today? I have a [facility] place to live 02/16/2023 Education Answer Date Recorded What is the highest level of school you have completed or the highest degree you have received? Bachelor's degree (e.g., BA, AB, BS) 01/24/2022 Sex and Gender Information Value Date Recorded Sex Assigned at Female 01/24/2022 7:37 PM ALUMINUM BOAT ASSEMBLY SUPERVISOR Gender Identity Female 01/24/2022 7:37 PM ALUMINUM BOAT ASSEMBLY SUPERVISOR Sexual Orientation Straight 01/24/2022 7: 37 PM ALUMINUM BOAT ASSEMBLY SUPERVISOR documented as of this encounter Plan of Treatment Upcoming Encounters Date Type Department Care Team (Late st Contact Info) Description 11/17/2023 11:00 AM CDT Clinical Communication Virtual Review in [place], [place] 200 [place] [address] 11/21/2023 11:10 AM CDT Lab Department of Laboratory Medicine and Pathology, [facility], in [place], [place] [address] [place] [phone] Remigio Frey M.D., Ph.D. [address] [place] [phone] 11/21/2023 1:00 PM CDT Office Visit Department of Oncology in [place], [place] [address] [place] [phone] Mc Mcknight M.D., Ph.D. [address] [place] [phone] 11/21/2023 2:15 PM CDT Infusion Department of Oncology in [place], [place] [address] [place] [phone] Remigio Frey M.D., Ph.D. [address] [place] [phone] 12/11/2023 1:45 PM CDT Clinical Communication Virtual Review in [address] [phone] 12/12/2023 11:00 AM CDT Lab Department of Laboratory Medicine and Pathology, [facility], in [place], [place] [address] [place] [phone] Remigio Frey M.D., Ph.D. [address] [place] [phone] 12/12/2023 1:00 PM CDT Office Visit Department of Oncology in [address] [phone] Mc Mcknight M.D., Ph.D. [address] [place] [phone] 12/12/2023 3:00 PM CDT Infusion Department of Oncology in [place], [place] [address] [place] [phone] Remigio Frey M.D., Ph.D. [address] [place] [phone] 12/29/2023 1:15 PM CDT Clinical Communication Virtual Review in [place], [place] 200 [place] [address] 01/02/2024 10:00 AM CDT Lab Department of Laboratory Medicine and Pathology, [facility] in [address] [phone] Blanche Monzon P.A.-C., M.S. [address] [place] [phone] 01/02/2024 11:30 AM CDT Appointment Department of Radiology, [facility], in [address] [phone] Blanche Monzon P.A.-C., M.S. [address] [place] [phone] 01/02/2024 1:00 PM CDT Office Visit Department of Oncology in [address] [phone] Mc Mcknight M.D., Ph.D. [address] [place] [phone] 01/02/2024 3:00 PM CDT Infusion Department of Oncology in [address] [phone] Blanche Monzon P.A.-C., M.S. [address] [place] [phone] 01/09/2024 10:15 AM ALUMINUM BOAT ASSEMBLY SUPERVISOR Clinical Communication Virtual Review in [place], [place] 200 [place] [address] 01/11/2024 9:00 AM ALUMINUM BOAT ASSEMBLY SUPERVISOR Appointment Department of Radiology, [facility] in [place], [place] [address] [place] [phone] Tammie Hooks M.D., Ph.D. [address] [place] [phone] 01/11/2024 2:00 PM ALUMINUM BOAT ASSEMBLY SUPERVISOR Appointment Department of Radiation Oncology in [place], [place] [address] [place] [phone] Tammie Hooks M.D., Ph.D. [address] [place] [phone] 01/17/2024 9:00 AM ALUMINUM BOAT ASSEMBLY SUPERVISOR Clinical Communication Virtual Review in [place], [place] 200 [place] [address] 01/19/2024 1:00 PM ALUMINUM BOAT ASSEMBLY SUPERVISOR Comprehensive Visit Department of Neurology in [place], [place] [address] [place] [phone] Kory Alas M.B., Ch.B. [address] [place] [phone] documented as of this encounter Visit Diagnoses Diagnosis Effusion Knee Right- Primary documented in this encounter Care Teams Gallery Manager Relationship Specialty Start Date End Date Elsewhere, Pcp PCP - General Family Medicine 02/01/22 documented as of this encounter
--- OUTSIDE RECORDS SUMMARY | 2023-11-15 14:20 | XMS_ITS | Encounter Summary ---
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 [address] [place] [phone] [facility] [address] [place] [phone] Referral ID Status Reason Start Date Expiration Date V isits Requested Visits Authorized [id number] Authorized 07/28/2023 07/27/2025 99 99 Encounter Details Date Type Department Care Team (Late st Contact Info) Description 10/11/2023 2:00 PM CDT Infusion Department of Oncology in [place], [place] [address] [place] [phone] Blanche Monzon P.A.-C., M.S. [address] [place] [phone] Malignant Neoplasm Of Neck Squamous Cell (Primary Dx); Other Safety Deposit Boxes Custodian Current Drug Therapy; Secondary Malignant Neoplasm Bone [...] and heating? Not hard at all 09/02/2022 [facility] of Occupat ional Health - Occupational Stress [...] Sex Assigned at Female 01/24/2022 7:37 PM TURF KEEPER Gender Identity Female 01/24/2022 7:37 PM TURF KEEPER Sexual Orientation Straight 01/24/2022 7: 37 PM TURF KEEPER documented as of this encounter Plan of Treatment Upcoming Encounters Date Type Department Care Team (Late st Contact Info) Description 11/17/2023 11:00 AM CDT Clinical Communication Virtual Review in [address] [phone] 11/21/2023 11:10 AM CDT Lab Department of Laboratory Medicine and Pathology, [facility], in [place], [place] [address] [place] [phone] Remigio Frey M.D., Ph.D. [address] [place] [phone] 11/21/2023 1:00 PM CDT Office Visit Department of Oncology in [address] [phone] Mc Mcknight M.D., Ph.D. [address] [place] [phone] 11/21/2023 2:15 PM CDT Infusion Department of Oncology in [address] [phone] Remigio Frey M.D., Ph.D. [address] [place] [phone] 12/11/2023 1:45 PM CDT Clinical Communication Virtual Review in [address] [phone] 12/12/2023 11:00 AM CDT Lab Department of Laboratory Medicine and Pathology, [facility], in [place], [place] [address] [place] [phone] Remigio Frey M.D., Ph.D. [address] [place] [phone] 12/12/2023 1:00 PM CDT Office Visit Department of Oncology in [address] [phone] Mc Mcknight M.D., Ph.D. [address] [place] [phone] 12/12/2023 3:00 PM CDT Infusion Department of Oncology in [place], [place] [address] [place] [phone] Remigio Frey M.D., Ph.D. [address] [place] [phone] 12/29/2023 1:15 PM CDT Clinical Communication Virtual Review in [place], [place] 200 [place] [address] 01/02/2024 10:00 AM CDT Lab Department of Laboratory Medicine and Pathology, [facility], in [place], [place] [address] [place] [phone] Blanche Monzon P.A.-C., M.S. [address] [place] [phone] 01/02/2024 11:30 AM CDT Appointment Department of Radiology, [facility], in [place], [place] [address] [place] [phone] Blanche Monzon P.A.-C., M.S. [address] [place] [phone] 01/02/2024 1:00 PM CDT Office Visit Department of Oncology in [place], [place] [address] [place] [phone] Mc Mcknight M.D., Ph.D. [address] [place] [phone] 01/02/2024 3:00 PM CDT Infusion Department of Oncology in [place], [place] [address] [place] [phone] Blanche Monzon P.A.-C., M.S. [address] [place] [phone] 01/09/2024 10:15 AM TURF KEEPER Clinical Communication Virtual Review in [address] [phone] 01/11/2024 9:00 AM TURF KEEPER Appointment Department of Radiology, [facility] in [address] [phone] Tammie Hooks M.D., Ph.D. [address] [place] [phone] 01/11/2024 2:00 PM TURF KEEPER Appointment Department of Radiation Oncology in [address] [phone] Tamime Hooks M.D., Ph.D. [address] [place] [phone] 01/17/2024 9:00 AM TURF KEEPER Clinical Communication Virtual Review in [address] [phone] 01/19/2024 1:00 PM TURF KEEPER Comprehensive Visit Department of Neurology in [address] [phone] Kory Alas M.B., Ch.B. [address] [place] [phone] documented as of this encounter Visit Diagnoses Diagnosis Malignant Neoplasm Of Neck Squamous Cell- Primary Other Safety Deposit Boxes Custodian Current Drug Therapy Secondary Malignant Neoplasm Bone [...] mL/hr documented in this encounter Care Teams Lump Room Supervisor Relationship Specialty Start Date End Date Elsewhere, Pcp PCP - General Family Medicine 02/01/22 documented as of this encounter
--- OUTSIDE RECORDS SUMMARY | 2023-11-15 14:20 | XMS_ITS | Encounter Summary ---
Author Organization [facility] Address [address] [place] [address] Care Team Providers Care Pump Stitcher Name Role Phone Elsewhere, Pcp Primary Care Provider Unavailabl e Reason for Referral * Outpatient (Routine) Specialty Diagnoses / Procedures Referred By Contac t Referred To Contact Oncology Remigio Frey M.D., Ph.D. [address] [place] [phone] Mc Mcknight M.D., Ph.D. [address] [place] [phone] Referral ID Status Reason Start Date Expiration Date Visits Re quested Visits Authorized * Outpatient (Routine) Specialty Diagnoses / Procedures Referred By Contac t Referred To Contact Oncology Remigio Frey M.D., Ph.D. [address] [place] [phone] Mc Mcknight M.D., Ph.D. [address] [place] [phone] Referral ID Status Reason Start Date Expiration Date Visits Re quested Visits Authorized * Outpatient (Routine) Specialty Diagnoses / Procedures Referred By Ryan cronin Referred To Contact Oncology Remigio Frey M.D., Ph.D. [address] [place] [phone] Mc Mcknight M.D., Ph.D. 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 [address] [place] [phone] [facility] [address] [place] [phone] Referral ID Status Reason Start Date Expiration Date V isits Requested Visits Authorized [id number] Authorized 07/28/2023 07/27/2025 99 99 Encounter Details Date Type Department Care Team (Late st Contact Info) Description 10/11/2023 1:00 PM CDT Office Visit Department of Oncology in [place], [place] [address] [place] [phone] Remigio Frey M.D., Ph.D. [address] [place] [phone] Squamous Cell Carcinoma Of Skin Of Scalp And Neck (Primary Dx); Other Teacher Associate Current Drug Therapy; Secondary Malignant Neoplasm Bone [...] often do you attend chur ch or judaism services? Never 01/24/2022 Do you belong to [...] all 09/02/2022 [employer] [place] of Occupat ional Health - Occupational Stress [...] your living situation today? I have a [facility] place to live 02/16/2023 Education Answer Date Recorded What is the highest level of school you have completed or the highest degree you have received? Bachelor's degree (e.g., BA, AB, BS) 01/24/2022 Sex and Gender Information Value Date Recorded Sex Assigned at Female 01/24/2022 7:37 PM GAS ENGINE OPERATOR Gender Identity Female 01/24/2022 7:37 PM GAS ENGINE OPERATOR Sexual Orientation Straight 01/24/2022 7: 37 PM GAS ENGINE OPERATOR documented as of this encounter Last [...] the vertex of the scalp. Evaluated by carriage operator Dr. Banuelos in [place] and was treated for possible psoriasis. The lesion persisted after 6 weeks. She was then treated with UV phototherapy between September and December of 2021. September 22, 2021---December 17, 2021: Underwent biopsy of the vertex scalp lesion which revealed squamous cell carcinoma. Incisional biopsy of left level 5 lymph node also revealed squamous cell carcinoma. 12/30/2021 Biopsy/Pathology A. Skin, scalp, vertex, excisional biopsy ([id number]; 12/30/2021): Invasive poorly differentiated squamous cell carcinoma, transected at base and lateral edge of the specimen. B. Neck, left, soft tissue, biopsy ([id number]; 01/13/2022): Invasive poorly differentiated squamous cell carcinoma [...] AM CDT Clinical Communication Virtual Review in [address] [phone] 11/21/2023 11:10 AM CDT Lab Department of Laboratory Medicine and Pathology, [facility], in [place], [place] [address] [place] [phone] Remigio Frey M.D., Ph.D. [address] [place] [phone] 11/21/2023 1:00 PM CDT Office Visit Department of Oncology in [address] [phone] Mc Mcknight M.D., Ph.D. [address] [place] [phone] 11/21/2023 2:15 PM CDT Infusion Department of Oncology in [address] [phone] Remigio Frey M.D., Ph.D. [address] [place] [phone] 12/11/2023 1:45 PM CDT Clinical Communication Virtual Review in [address] [phone] 12/12/2023 11:00 AM CDT Lab Department of Laboratory Medicine and Pathology, [facility], in [address] [phone] Remigio Frey M.D., Ph.D. [address] [place] [phone] 12/12/2023 1:00 PM CDT Office Visit Department of Oncology in [place], [place] [address] [place] [phone] Mc Mcknight M.D., Ph.D. [address] [place] [phone] 12/12/2023 3:00 PM CDT Infusion Department of Oncology in [place], [place] [address] [place] [phone] Remigio Frey M.D., Ph.D. [address] [place] [phone] 12/29/2023 1:15 PM CDT Clinical Communication Virtual Review in [place], [place] 200 [place] [address] 01/02/2024 10:00 AM CDT Lab Department of Laboratory Medicine and Pathology, [facility], in [place], [place] [address] [place] [phone] Blanche Monzon P.A.-C., M.S. [address] [place] [phone] 01/02/2024 11:30 AM CDT Appointment Department of Radiology, [facility], in [place], [place] [address] [place] [phone] Blanche Monzon P.A.-C., M.S. [address] [place] [phone] 01/02/2024 1:00 PM CDT Office Visit Department of Oncology in [place], [place] [address] [place] [phone] Mc Mcknight M.D., Ph.D. [address] [place] [phone] 01/02/2024 3:00 PM CDT Infusion Department of Oncology in [place], [place] [address] [place] [phone] Blanche Monzon P.A.-C., M.S. [address] [place] [phone] 01/09/2024 10:15 AM GAS ENGINE OPERATOR Clinical Communication Virtual Review in [place], [place] 200 [place] [address] 01/11/2024 9:00 AM GAS ENGINE OPERATOR Appointment Department of Radiology, [facility] in [place], [place] [address] [place] [phone] Tammie Hooks M.D., Ph.D. [address] [place] [phone] 01/11/2024 2:00 PM GAS ENGINE OPERATOR Appointment Department of Radiation Oncology in [place], [place] [address] [place] [phone] Tammie Hooks M.D., Ph.D. [address] [place] [phone] 01/17/2024 9:00 AM GAS ENGINE OPERATOR Clinical Communication Virtual Review in [address] [phone] 01/19/2024 1:00 PM GAS ENGINE OPERATOR Comprehensive Visit Department of Neurology in [place], [place] [address] [place] [phone] Kory Alas M.B., Ch.B. 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 Expected: 11/21/2023, Expires: 11/20/2024 Bilirubin, Direct Lab Routine Other Skilled Nursing Current Drug Therapy 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 Expected: 11/21/2023, Expires: 11/20/2024 Thyroid Function Troup Lab Routine Other Skilled Nursing Current Drug Therapy 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 Expected: 11/21/2023, Expires: 11/20/2024 CBC with Differential, Blood Lab Routine Other Teacher Associate Current Drug Therapy 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 Expected: 12/12/2023, Expires: 12/11/2026 Comprehensive Metabolic Panel Lab Routine Other Teacher Associate Current Drug Therapy 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 Expected: 12/12/2023, Expires: 12/11/2024 Bilirubin, Direct Lab Routine Other Skilled Nursing Current Drug Therapy 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 Expected: 12/12/2023, Expires: 12/11/2024 Thyroid Function Troup Lab Routine Other Skilled Nursing Current Drug Therapy 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 Expected: 12/12/2023, Expires: 12/11/2024 Scheduled Referrals Name Type Priority Associated Diagnoses Orde r Schedule Oncology office visit (clinic) Outpatient Referral Routine Other Skilled Nursing Current Drug Therapy 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 Expected: 10/31/2023, Expires: 10/30/2024 Oncology office visit (clinic) Outpatient Referral Routine Other Teacher Associate Current Drug Therapy 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 LAB BLOOD AD D-ON Performing Organization Address [facility] Co de Phone Number [facility] 200 [place] [address], [facility] 200 [place] [address] * Bilirubin, Direct (11/01/2023 11:39 AM CDT) Pathologist [facility] Bilirubin, Direct, S <0.2 0.0 - 0.3 mg/dL 11/01/2023 12:57 PM CDT DTL Blood (Blood, Venous) 11/01/2023 11:39 AM CDT 11/01/2023 12:00 PM CDT Remigio Frey M.D., Ph.D. LAB BLOOD AD D-ON Performing Organization Address [facility] de Phone Number [facility] 200 [place] [address], [facility] 200 [place] [address] * Comprehensive Metabolic Panel (11/01/2023 11:39 AM CDT) Potassium, S 4.5 3.6 - 5.2 mmol/L [...] Frey M.D., Ph.D. LAB BLOOD AD D-ON [facility] [address] [place] [address], [facility] [address] [place] [address] * (ABNORMAL) CBC with Differential, Blood (11/01/2023 11:38 AM CDT) Hemoglobin 12.2 11.6 - 15.0 g/dL 11/01/2023 [...] Frey M.D., Ph.D. LAB BLOOD AD D-ON [facility] [address] [place] [address], [place] DTL [facility] [address] [place] [address] [facility] [address] [place] [address] documented in this encounter Visit Diagnoses Diagnosis Squamous Cell Carcinoma Of Skin Of Scalp And Neck- Primary Other Teacher Associate Current Drug Therapy Secondary Malignant Neoplasm Bone (HCC) documented in this encounter Care Teams Pump Stitcher Relationship Specialty Start Date End Date Elsewhere, Pcp PCP - General Family Medicine 02/01/22 documented as of this encounter
--- OUTSIDE RECORDS SUMMARY | 2023-11-15 14:20 | XMS_ITS | Encounter Summary ---
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 [address] [place] [phone] Rst [facility] [address] [place] [phone] Referral ID Status Reason Start Date Expiration Date V isits Requested Visits Authorized [id number] Authorized 07/28/2023 07/27/2025 99 99 Encounter Details Date Type Department Care Team (Late st Contact Info) Description 08/29/2023 2:30 PM CDT Infusion Department of Oncology in [place], [place] [address] [place] [phone] Blanche Monzon P.A.-C., M.S. [address] [place] [phone] Malignant Neoplasm Of Neck Squamous Cell (Primary Dx); Secondary Malignant Neoplasm Bone (HCC); Squamous Cell Carcinoma Of Skin Of Scalp And Neck; Other Gericare Aide Current Drug Therapy Social History Tobacco Use [...] How often do you attend chur or roman catholic services? Never 01/24/2022 Do [...] and heating? Not hard at all 09/02/2022 [facility] of Occupat ional Health - Occupational Stress [...] Sex Assigned at Female 01/24/2022 7:37 PM POWER LINE LINEMAN Gender Identity Female 01/24/2022 7:37 PM POWER LINE LINEMAN Sexual Orientation Straight 01/24/2022 7: 37 PM POWER LINE LINEMAN documented as of this encounter Plan of Treatment Upcoming Encounters Date Type Department Care Team (Late st Contact Info) Description 11/17/2023 11:00 AM CDT Clinical Communication Virtual Review in [address] [phone] 11/21/2023 11:10 AM CDT Lab Department of Laboratory Medicine and Pathology, [facility], in [place], [place] [address] [place] [phone] Remigio Frey M.D., Ph.D. [address] [place] [phone] 11/21/2023 1:00 PM CDT Office Visit Department of Oncology in [address] [phone] Mc Mcknight M.D., Ph.D. [address] [place] [phone] 11/21/2023 2:15 PM CDT Infusion Department of Oncology in [address] [phone] Remigio Frey M.D., Ph.D. [address] [place] [phone] 12/11/2023 1:45 PM CDT Clinical Communication Virtual Review in [address] [phone] 12/12/2023 11:00 AM CDT Lab Department of Laboratory Medicine and Pathology, [facility], in [place], [place] [address] [place] [phone] Remigio Frey M.D., Ph.D. [address] [place] [phone] 12/12/2023 1:00 PM CDT Office Visit Department of Oncology in [address] [phone] Mc Mcknight M.D., Ph.D. [address] [place] [phone] 12/12/2023 3:00 PM CDT Infusion Department of Oncology in [place], [place] [address] [place] [phone] Remigio Frey M.D., Ph.D. [address] [place] [phone] 12/29/2023 1:15 PM CDT Clinical Communication Virtual Review in [place], [place] 200 [place] [address] 01/02/2024 10:00 AM CDT Lab Department of Laboratory Medicine and Pathology, [facility], in [place], [place] [address] [place] [phone] Blanche Monzon P.A.-C., M.S. [address] [place] [phone] 01/02/2024 11:30 AM CDT Appointment Department of Radiology, [facility], in [place], [place] [address] [place] [phone] Blanche Monzon P.A.-C., M.S. [address] [place] [phone] 01/02/2024 1:00 PM CDT Office Visit Department of Oncology in [place], [place] [address] [place] [phone] Mc Mcknight M.D., Ph.D. [address] [place] [phone] 01/02/2024 3:00 PM CDT Infusion Department of Oncology in [place], [place] [address] [place] [phone] Blanche Monzon P.A.-C., M.S. [address] [place] [phone] 01/09/2024 10:15 AM POWER LINE LINEMAN Clinical Communication Virtual Review in [address] [phone] 01/11/2024 9:00 AM POWER LINE LINEMAN Appointment Department of Radiology, [facility] in [address] [phone] Tammie Hooks M.D., Ph.D. [address] [place] [phone] 01/11/2024 2:00 PM POWER LINE LINEMAN Appointment Department of Radiation Oncology in [address] [phone] Tammie Hooks M.D., Ph.D. [address] [place] [phone] 01/17/2024 9:00 AM POWER LINE LINEMAN Clinical Communication Virtual Review in [address] [phone] 01/19/2024 1:00 PM POWER LINE LINEMAN Comprehensive Visit Department of Neurology in [address] [phone] Kory Alas M.B., Ch.B. 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
--- OUTSIDE RECORDS SUMMARY | 2023-11-15 14:20 | XMS_ITS | Encounter Summary ---
Author Organization [facility] Address 200 [place] [address] Care Team Providers Care Market Development Specialist Name Role Phone Elsewhere, Pcp Primary Care Provider Unavailabl e Reason for Referral * MRI/CAT/PET Scan (Routine) - Closed Specialty Diagnoses / Procedures Referred By Ryan cronin Referred To Contact Radiology Diagnoses Squamous Cell Carcinoma Of Skin Of Scalp And Neck Lesion Lytic Bone Secondary Malignant Neoplasm Bone (HCC) Other Intermediate Current Drug Therapy Procedures CT Abdomen Pelvis with IV Contrast Blanche Monzon P.A.-C., M.S. 200 [place] [address] [facility] Referral ID Status Reason Start Date Expiration Date Visits Re quested Visits Authorized [id number] Closed 07/28/2023 07/27/2024 1 1 * MRI/CAT/PET Scan (Routine) - Closed Specialty Diagnoses / Procedures Referred By Ryan cronin Referred To Contact Radiology Diagnoses Squamous Cell Carcinoma Of Skin Of Scalp And Neck Lesion Lytic Bone Secondary Malignant Neoplasm Bone (HCC) Other Intermediate Current Drug Therapy Procedures CT Chest with IV Contrast Blanche Monzon P.A.-C., M.S. [address] [place] [phone] [facility] Referral ID Status Reason Start Date Expiration Date Visits Re quested Visits Authorized [id number] Closed 07/28/2023 07/27/2024 1 1 * MRI/CAT/PET Scan (Routine) - Closed Specialty Diagnoses / Procedures Referred By Contac t Referred To Contact Radiology Diagnoses Squamous Cell Carcinoma Of Skin Of Scalp And Neck Lesion Lytic Bone Secondary Malignant Neoplasm Bone (HCC) Other Intermediate Current Drug Therapy Procedures CT Neck Soft Tissue with IV Contrast Blanche Monzon P.A.-C., M.S. [address] [place] [phone] [facility] Referral ID Status Reason Start Date Expiration Date Visits Re quested Visits Authorized [id number] Closed 07/28/2023 07/27/2024 1 1 Reason for Visit * MRI/CAT/PET Scan (Routine) - Closed Specialty Diagnoses / Procedures Referred By Contac t Referred To Contact Radiology Diagnoses Squamous Cell Carcinoma Of Skin Of Scalp And Neck Lesion Lytic Bone Secondary Malignant Neoplasm Bone (HCC) Other Intermediate Current Drug Therapy Procedures CT Abdomen Pelvis with IV Contrast Blanche Monzon P.A.-C., M.S. [address] [place] [phone] [facility] Referral ID Status Reason Start Date Expiration Date Visits Re quested Visits Authorized [id number] Closed 07/28/2023 07/27/2024 1 1 Encounter Details Date Type Department Care Team (Latest Contact Info) Description 10/11/2023 6:45 AM CDT - 10/11/2023 7:40 AM CDT Hospital Encounter Department of Radiology, [facility], in [place], [place] [address] [place] [phone] Blanche Monzon P.A.-C., M.S. 200 [place] [address] Squamous Cell Carcinoma Of Skin Of Scalp And Neck; Secondary Malignant Neoplasm Bone (HCC); Other Admin Asst Current Drug Therapy Discharge Disposition: Home or [...] and heating? Not hard at all 09/02/2022 [facility] of Occupat ional Health - Occupational Stress [...] Assigned at Female 01/24/2022 7:37 PM CLINICAL PROJECT ASSISTANT Gender Identity Female 01/24/2022 7:37 PM CLINICAL PROJECT ASSISTANT Sexual Orientation Straight 01/24/2022 7: 37 PM CLINICAL PROJECT ASSISTANT documented as of this encounter Medications at Time of Discharge Medication Sig Dispensed Refills Start Date End Date cholecalciferol (Vitamin D3) 50 mcg (2,000 Unit) tablet Take 1 tablet by mouth daily. hydrocortisone 2.5 % ointmentIndications:D [...] AM CDT Clinical Communication Virtual Review in [address] [phone] 11/21/2023 11:10 AM CDT Lab Department of Laboratory Medicine and Pathology, [address] [phone] Remigio Frey M.D., Ph.D. [address] [place] [phone] 11/21/2023 1:00 PM CDT Office Visit Department of Oncology in [address] [phone] Mc Mcknight M.D., Ph.D. [address] [place] [phone] 11/21/2023 2:15 PM CDT Infusion Department of Oncology in [address] [address] Remigio Frey M.D., Ph.D. [address] [place] [phone] 12/11/2023 1:45 PM CDT Clinical Communication Virtual Review in [address] [phone] 12/12/2023 11:00 AM CDT Lab Department of Laboratory Medicine and Pathology, [facility] in [address] [address] Remigio Frey M.D., Ph.D. [address] [place] [phone] 12/12/2023 1:00 PM CDT Office Visit Department of Oncology in [place], [place] [address] [place] [phone] Mc Mcknight M.D., Ph.D. [address] [place] [phone] 12/12/2023 3:00 PM CDT Infusion Department of Oncology in [place], [place] [address] [place] [phone] Remigio Frey M.D., Ph.D. [address] [place] [phone] 12/29/2023 1:15 PM CDT Clinical Communication Virtual Review in [place], [place] 200 [place] [address] 01/02/2024 10:00 AM CDT Lab Department of Laboratory Medicine and Pathology, [facility], in [place], [place] [address] [place] [phone] Blanche Monzon P.A.-C., M.S. [address] [place] [phone] 01/02/2024 11:30 AM CDT Appointment Department of Radiology, [facility], in [place], [place] [address] [place] [phone] Blanche Monzon P.A.-C., M.S. [address] [place] [phone] 01/02/2024 1:00 PM CDT Office Visit Department of Oncology in [place], [place] [address] [place] [phone] Mc Mcknight M.D., Ph.D. [address] [place] [phone] 01/02/2024 3:00 PM CDT Infusion Department of Oncology in [address] [phone] Blanche Monzon P.A.-C., M.S. [address] [place] [phone] 01/09/2024 10:15 AM CLINICAL PROJECT ASSISTANT Clinical Communication Virtual Review in [address] [phone] 01/11/2024 9:00 AM CLINICAL PROJECT ASSISTANT Appointment Department of Radiology, [facility] in [address] [address] Tammie Hooks M.D., Ph.D. [address] [place] [phone] 01/11/2024 2:00 PM CLINICAL PROJECT ASSISTANT Appointment Department of Radiation Oncology in [address] [address] Tammie Hooks M.D., Ph.D. [address] [place] [phone] 01/17/2024 9:00 AM CLINICAL PROJECT ASSISTANT Clinical Communication Virtual Review in [address] [address] 01/19/2024 1:00 PM CLINICAL PROJECT ASSISTANT Comprehensive Visit Department of Neurology in [address] [phone] Kory Alas M.B., Ch.B. 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 And Neck Secondary Malignant Neoplasm Bone (HCC) Other Intermediate Current Drug Therapy CT CHEST WITH IV CONTRAST RAD - Routine (most inpatients and all outpatients) 10/11/2023 7:40 AM CDT Squamous Cell Carcinoma Of Skin Of Scalp And Neck Secondary Malignant Neoplasm Bone (HCC) Other Intermediate Current Drug Therapy CT NECK SOFT TISSUE WITH IV CONTRAST RAD - Routine (most inpatients and all outpatients) 10/11/2023 7:40 AM CDT Squamous Cell Carcinoma Of Skin Of Scalp And Neck Secondary Malignant Neoplasm Bone (HCC) Other Intermediate Current Drug Therapy documented in this encounter [...] Anatomical Region Laterality Modality Neck, Neuroradiology RST [facility] , Neuroradiology ARZ [facility], Neuroradiology FLA [facility] N/A Computed Tomography, Compute d Tomography 10/11/2023 [...] Monzon P.A.-C., M.S. IMG CT P ROCEDURES documented in this encounter Visit Diagnoses Diagnosis Squamous Cell Carcinoma Of Skin Of Scalp And Neck Secondary Malignant Neoplasm Bone (HCC) Other Admin Asst Current Drug Therapy documented in this encounter [...] mL documented in this encounter Care Teams Market Development Specialist Relationship Specialty Start Date End Date Elsewhere, Pcp PCP - General Family Medicine 02/01/22 documented as of this encounter
--- OUTSIDE RECORDS SUMMARY | 2023-11-15 14:20 | XMS_ITS | Encounter Summary ---
Author Organization [facility] Address 200 [place] [address] Care Team Providers Care Bead Filler Name Role Phone Elsewhere, Pcp Primary Care Provider Unavailabl e Reason for Referral * Outpatient (Routine) - Closed Specialty Diagnoses / Procedures Referred By Ryan cronin Referred To Contact Dermatology Diagnoses Squamous Cell Carcinoma Of Skin Of Scalp And Neck Secondary Malignant Neoplasm Bone (HCC) Other Group Home Current Drug Therapy Blanche Monzon P.A.-C., M.S. 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 200 [place] [address] [facility] [address] [place] [address] Referral ID Status Reason Start Date Expiration Date V isits Requested Visits Authorized [id number] Authorized 07/28/2023 07/27/2025 99 99 Encounter Details Date Type Department Care Team (Late st Contact Info) Description 09/19/2023 1:00 PM CDT Office Visit Department of Oncology in [place], [place] [address] [place] [phone] Blanche Monzon P.A.-C., M.S. [address] [place] [phone] Squamous Cell Carcinoma Of Skin Of Scalp And Neck (Primary Dx); Secondary Malignant Neoplasm Bone (HCC); Other Group Home Current Drug Therapy Social History Tobacco Use [...] week 01/24/2022 How often do you attend [facility] or sabianist services? Never 01/24/2022 Do you belong to any clubs o r organizations such as latter-day groups, unions, fraternal or athletic groups, or [...] and heating? Not hard at all 09/02/2022 [facility] of Occupat ional Health - Occupational [...] Sex Assigned at Female 01/24/2022 7:37 PM LINING SEWER Gender Identity Female 01/24/2022 7:37 PM LINING SEWER Sexual Orientation Straight 01/24/2022 7: 37 PM LINING SEWER documented as of this encounter Last Filed [...] REQUESTING PROVIDER Blanche Monzon P.A.-C., M.S. 200 [place] [address] PRIMARY COLLABORATING PROVIDER Mc Mcknight M.D., Ph.D. [...] vertex of the scalp. Evaluated by health care law specialist Dr. Banuelos in [place] and was treated for possible psoriasis. The lesion persisted after 6 weeks. She was then treated with UV phototherapy between September and December of 2021. September 22, 2021---December 17, 2021: Underwent biopsy of the vertex scalp lesion which revealed squamous cell carcinoma. Incisional biopsy of left level 5 lymph node also revealed squamous cell carcinoma. 12/30/2021 Biopsy/Pathology A. Skin, scalp, vertex, excisional biopsy ([id number] B; 12/30/2021): Invasive poorly differentiated squamous cell carcinoma, transected at base and lateral edge of the specimen. B. Neck, left, soft tissue, biopsy ([id number]; 01/13/2022): Invasive poorly differentiated squamous cell carcinoma [...] cereal SOCIAL HISTORY Veronica Guevara lives in [place], [place], with her , Andre. Retired. PHYSICAL [...] Value Bilirubin, Direct, S <0.2 Thyroid Function Xenia Collection Time: 09/19/23 10:57 AM Result Value TSH, Sensitive 2.4 RADIOLOGICAL DATA Reviewed. 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 Also, reviewed [...] CDT Clinical Communication Virtual Review in [address] [phone] 11/21/2023 11:10 AM CDT Lab Department of Laboratory Medicine and Pathology, [facility], in [address] [phone] Remigio Frey M.D., Ph.D. [address] [place] [phone] 11/21/2023 1:00 PM CDT Office Visit Department of Oncology in [address] [phone] Mc Mcknight M.D., Ph.D. [address] [place] [phone] 11/21/2023 2:15 PM CDT Infusion Department of Oncology in [place], [place] [address] [place] [phone] Remigio Frey M.D., Ph.D. [address] [place] [phone] 12/11/2023 1:45 PM CDT Clinical Communication Virtual Review in [place], [place] 200 [place] [address] 12/12/2023 11:00 AM CDT Lab Department of Laboratory Medicine and Pathology, [facility] in [place], [place] [address] [place] [phone] Remigio Frey M.D., Ph.D. [address] [place] [phone] 12/12/2023 1:00 PM CDT Office Visit Department of Oncology in [address] [phone] Mc Mcknight M.D., Ph.D. [address] [place] [phone] 12/12/2023 3:00 PM CDT Infusion Department of Oncology in [place], [place] [address] [place] [phone] Remigio Frey M.D., Ph.D. [address] [place] [phone] 12/29/2023 1:15 PM CDT Clinical Communication Virtual Review in [place], [place] 200 [place] [address] 01/02/2024 10:00 AM CDT Lab Department of Laboratory Medicine and Pathology, [facility] in [place], [place] [address] [place] [phone] Blanche Monzon P.A.-C., M.S. [address] [place] [phone] 01/02/2024 11:30 AM CDT Appointment Department of Radiology, [facility], in [place], [place] [address] [place] [phone] Blanche Monzon P.A.-C., M.S. [address] [place] [phone] 01/02/2024 1:00 PM CDT Office Visit Department of Oncology in [place], [place] [address] [place] [phone] Mc Mcknight M.D., Ph.D. [address] [place] [phone] 01/02/2024 3:00 PM CDT Infusion Department of Oncology in [place], [place] [address] [place] [phone] Blanche Monzon P.A.-C., M.S. [address] [place] [phone] 01/09/2024 10:15 AM LINING SEWER Clinical Communication Virtual Review in [place], [place] 200 [place] [address] 01/11/2024 9:00 AM LINING SEWER Appointment Department of Radiology, [facility] in [place], [place] [address] [place] [phone] Tammie Hooks M.D., Ph.D. [address] [place] [phone] 01/11/2024 2:00 PM LINING SEWER Appointment Department of Radiation Oncology in [place], [place] [address] [place] [phone] Tammie Hooks M.D., Ph.D. [address] [place] [phone] 01/17/2024 9:00 AM LINING SEWER Clinical Communication Virtual Review in [place], [place] 200 [place] [address] 01/19/2024 1:00 PM LINING SEWER Comprehensive Visit Department of Neurology in [place], [place] [address] [place] [phone] Kory Alas M.B., Ch.B. [address] [place] [phone] Scheduled Referrals Name Type Priority Associated Diagnoses Order Schedule Dermatology - Skin check consult (clinic) Outpatient Referral Routine Squamous Cell Carcinoma Of Skin Of Scalp And Neck Secondary Malignant Neoplasm Bone (HCC) Other Devulcanizer Tender Current Drug Therapy Expected: 10/11/2023, Expires: 12/19/2024 documented as of this encounter Visit Diagnoses Diagnosis Squamous Cell Carcinoma Of Skin Of Scalp And Neck- Primary Secondary Malignant Neoplasm Bone (HCC) Other Devulcanizer Tender Current Drug Therapy documented in this encounter Care Teams Bead Filler Relationship Specialty Start Date End Date Elsewhere, Pcp PCP - General Family Medicine 02/01/22 documented as of this encounter
--- OUTSIDE RECORDS SUMMARY | 2023-11-15 14:20 | XMS_ITS | Encounter Summary ---
Author Organization [facility] Address [address] [place] [address] Care Team Providers Care Registered Public Surveyor Name Role Phone Elsewhere, Pcp Primary Care Provider Unavailabl e Reason for Referral * Outpatient (Routine) - Authorized Specialty Diagnoses / Procedures Referred By Contac t Referred To Contact Radiation Oncology Tammie Hooks M.D., Ph.D. [address] [place] [address] [facility] Referral ID Status Reason Start Date Expiration Date V isits Requested Visits Authorized [id number] Authorized 10/11/2023 04/11/2025 1 1 Scheduling Instructions With scans * Outpatient (Routine) - Authorized Specialty Diagnoses / Procedures Referred By Contac t Referred To Contact Neurology Diagnoses Squamous Cell Carcinoma Of Skin Of Scalp And Neck Tammie Hooks M.D., Ph.D. [address] [place] [address] [facility] Referral ID Status Reason Start Date Expiration Date V isits Requested Visits Authorized [id number] Authorized 10/11/2023 04/11/2025 1 1 * Outpatient (Routine) - Closed Specialty Diagnoses / Procedures Referred By Ryan cronin Referred To Contact Radiation Oncology Tammie Hooks M.D., Ph.D. [address] [place] [phone] [facility] Referral ID Status Reason Start Date Expiration Date Visits Re quested Visits Authorized [id number] Closed 08/28/2023 02/26/2025 1 1 Reason for Visit * Outpatient (Routine) - Closed Specialty Diagnoses / Procedures Referred By Ryan cronin Referred To Contact Radiation Oncology Tammie Hooks M.D., Ph.D. [address] [place] [phone] [facility] Referral ID Status Reason Start Date Expiration Date Visits Re quested Visits Authorized [id number] Closed 08/28/2023 02/26/2025 1 1 Encounter Details Date Type Department Care Team (Latest Contact Info) Description 10/11/2023 3:30 PM CDT - 10/12/2023 10:05 AM CDT Hospital Encounter Department of Radiation Oncology in [place], [place] [address] [place] [phone] Tammie Hooks M.D., Ph.D. [address] [place] [phone] Squamous Cell Carcinoma Of Skin Of Scalp [...] and heating? Not hard at all 09/02/2022 [facility] of Occupat ional Health - Occupational Stress [...] your living situation today? I have a [facility] place to live 02/16/2023 Education Answer Date Recorded What is the highest level of school you have completed or the highest degree you have received? Bachelor's degree (e.g., BA, AB, BS) 01/24/2022 Sex and Gender Information Value Date Recorded Sex Assigned at Female 01/24/2022 7:37 PM CONSTRUCTION PROJECT MGR Gender Identity Female 01/24/2022 7:37 PM CONSTRUCTION PROJECT MGR Sexual Orientation Straight 01/24/2022 7: 37 PM CONSTRUCTION PROJECT MGR documented as of this encounter Last Filed [...] 30 fx to elective oumou radiation) on 2/24/23. She started cemiplimab on 08/08/23 due to [...] the vertex of the scalp. Evaluated by disease control inspector Dr. Banuelos in [place] and was treated for possible psoriasis. The lesion persisted after 6 weeks. She was then treated with UV phototherapy between September and December of 2021. September 22, 2021---December 17, 2021: Underwent biopsy of the vertex scalp lesion which revealed squamous cell carcinoma. Incisional biopsy of left level 5 lymph node also revealed squamous cell carcinoma. 12/30/2021 Biopsy/Pathology A. Skin, scalp, vertex, excisional biopsy ([id number] B; 12/30/2021): Invasive poorly differentiated squamous cell carcinoma, transected at base and lateral edge of the specimen. B. Neck, left, soft tissue, biopsy ([id number]; 01/13/2022): Invasive poorly differentiated squamous cell carcinoma [...] 78 year old female with hx of [id number] SqCC of the scalp vertex, 3.5 cmprimary, 1.1 cm DOI, LVI+, PNI-, margin-, 2/26 [...] Physician Radiation Oncology 10/11/23 8:23 PM CDT Traffic Safety Administrator Service: Dr. Tammie Hooks MD, PhD Associated [...] also met with the patient for a jvvm-pz-tasq encounter to verify the history, discuss patient expectation and preference, and provide recommendations which are in agreement with those outlined by Dr. Ty Palma in the encounter of thisdate. 78 year old female with hx of [id number] SqCC of the scalp vertex, 3.5 cm primary, 1.1 cm DOI, LVI+, PNI-, margin-, / LN on left with XIN, 1/3 LN [...] of the patient today. Time includes both clf-ugvg-pk-face kdeqyhp-vq-opze patient care. Tammie Hooks MD PhD Head Of Mobile Traffic Safety Administrator Radiation Oncology 10/12/23 10:00 AM CDT Pager: [phone] documented in this encounter Plan of Treatment Upcoming Encounters Date Type Department Care Team (Late st Contact Info) Description 11/17/2023 11:00 AM CDT Clinical Communication Virtual Review in [place], [place] 200 [place] [phone] 11/21/2023 11:10 AM CDT Lab Department of Laboratory Medicine and Pathology, [facility], in [address] [phone] Remigio Frey M.D., Ph.D. [address] [place] [phone] 11/21/2023 1:00 PM CDT Office Visit Department of Oncology in [place], [place] [address] [place] [phone] Mc Mcknight M.D., Ph.D. [address] [place] [phone] 11/21/2023 2:15 PM CDT Infusion Department of Oncology in [place], [place] [address] [place] [phone] Remigio Frey M.D., Ph.D. [address] [place] [phone] 12/11/2023 1:45 PM CDT Clinical Communication Virtual Review in [address] [phone] 12/12/2023 11:00 AM CDT Lab Department of Laboratory Medicine and Pathology, [facility] in [address] [phone] Remigio Frey M.D., Ph.D. [address] [place] [phone] 12/12/2023 1:00 PM CDT Office Visit Department of Oncology in [address] [phone] Mc Mcknight M.D., Ph.D. [address] [place] [phone] 12/12/2023 3:00 PM CDT Infusion Department of Oncology in [address] [phone] Remigio Frey M.D., Ph.D. [address] [place] [phone] 12/29/2023 1:15 PM CDT Clinical Communication Virtual Review in [address] [phone] 01/02/2024 10:00 AM CDT Lab Department of Laboratory Medicine and Pathology, [facility], in [place], [place] [address] [place] [phone] Blanche Monzon P.A.-C., M.S. [address] [place] [phone] 01/02/2024 11:30 AM CDT Appointment Department of Radiology, [facility] in [place], [place] [address] [place] [address] Blanche Monzon P.A.-C., M.S. [address] [place] [phone] 01/02/2024 1:00 PM CDT Office Visit Department of Oncology in [place], [place] [address] [place] [phone] Mc Mcknight M.D., Ph.D. [address] [place] [phone] 01/02/2024 3:00 PM CDT Infusion Department of Oncology in [place], [place] [address] [place] [phone] Blanche Monzon P.A.-C., M.S. [address] [place] [phone] 01/09/2024 10:15 AM CONSTRUCTION PROJECT MGR Clinical Communication Virtual Review in [place], [place] 200 [place] [address] 01/11/2024 9:00 AM CONSTRUCTION PROJECT MGR [facility] [place], [place] [address] [place] [phone] Tammie Hooks M.D., Ph.D. [address] [place] [phone] 01/11/2024 2:00 PM CONSTRUCTION PROJECT MGR Appointment Department of Radiation Oncology in [place], [place] [address] [place] [phone] Tammie Hooks M.D., Ph.D. [address] [place] [phone] 01/17/2024 9:00 AM CONSTRUCTION PROJECT MGR Clinical Communication Virtual Review in [place], [place] 200 [place] [phone] 01/19/2024 1:00 PM CONSTRUCTION PROJECT MGR Comprehensive Visit Department of Neurology in [place], [place] [address] [place] [phone] Kory Alas M.B., Ch.B. [address] [place] [phone] Scheduled Referrals Name Type Priority Associated Diagnoses [...] Expires: 01/10/2025 documented as of this encounter Results * Folate (11/01/2023 11:39 AM CDT) Folate, S >20.0 >=4.0 mcg/L 11/01/2023 12:47 PM CDT DTL Blood (Blood, Venous) 11/01/2023 11:39 AM CDT 11/01/2023 12:00 PM CDT Tammie Hooks M.D., Ph.D. LAB BLOOD A [facility] 200 [place], [place] [address] [address] [place] [address] * Vitamin B12 Assay (11/01/2023 11:39 AM [...] Hooks M.D., Ph.D. LAB BLOOD A [facility] [address] [place] [address], [facility] 200 [place] [address] documented in this encounter Visit Diagnoses Diagnosis Squamous Cell Carcinoma Of Skin Of Scalp And Neck- Primary documented in this encounter Care Teams Registered Public Surveyor Relationship Specialty Start Date End Date Elsewhere, Pcp PCP - General Family Medicine 02/01/22 documented as of this encounter
--- OUTSIDE RECORDS SUMMARY | 2023-11-15 14:20 | XMS_ITS | Encounter Summary ---
Author Organization [facility] Address [address] [place] [phone] Care Team Providers Care Help Desk Assistant Name Role Phone Elsewhere, Pcp Primary Care Provider Unavailabl e Reason for Visit * Reason Onset Date Comments Blood Pressure 10/09/2023 Encounter Details Date Type Department Care Team (Latest Contact Info) Description 10/09/2023 10:45 AM CDT Clinical Communication Virtual Review in [place], [place] [address] [place] [address] Blood Pressure Social History Tobacco Use Types [...] and heating? Not hard at all 09/02/2022 [facility] of Occupat ional Health - Occupational [...] your living situation today? I have a [facility] place to live 02/16/2023 Education Answer Date Recorded What is the highest level of school you have completed or the highest degree you have received? Bachelor's degree (e.g., BA, AB, BS) 01/24/2022 Sex and Gender Information Value Date Recorded Sex Assigned at Female 01/24/2022 7:37 PM PACK WORKER Gender Identity Female 01/24/2022 7:37 PM PACK WORKER Sexual Orientation Straight 01/24/2022 7: 37 PM PACK WORKER documented as of this encounter Plan of Treatment Upcoming Encounters Date Type Department Care Team (Late st Contact Info) Description 11/17/2023 11:00 AM CDT Clinical Communication Virtual Review in [place], [place] 200 [place] [address] 11/21/2023 11:10 AM CDT Lab Department of Laboratory Medicine and Pathology, [facility], in [place], [place] [address] [place] [phone] Remigio Frey M.D., Ph.D. [address] [place] [phone] 11/21/2023 1:00 PM CDT Office Visit Department of Oncology in [place], [place] [address] [place] [phone] Mc Mcknight M.D., Ph.D. [address] [place] [phone] 11/21/2023 2:15 PM CDT Infusion Department of Oncology in [place], [place] [address] [place] [phone] Remigio Frey M.D., Ph.D. [address] [place] [phone] 12/11/2023 1:45 PM CDT Clinical Communication Virtual Review in [place], [place] 200 [place] [address] 12/12/2023 11:00 AM CDT Lab Department of Laboratory Medicine and Pathology, [facility] in [address] [phone] Remigio Frey M.D., Ph.D. [address] [place] [phone] 12/12/2023 1:00 PM CDT Office Visit Department of Oncology in [place], [place] [address] [place] [phone] Mc Mcknight M.D., Ph.D. [address] [place] [phone] 12/12/2023 3:00 PM CDT Infusion Department of Oncology in [place], [place] [address] [place] [phone] Remigio Frey M.D., Ph.D. [address] [place] [phone] 12/29/2023 1:15 PM CDT Clinical Communication Virtual Review in [address] [phone] 01/02/2024 10:00 AM CDT Lab Department of Laboratory Medicine and Pathology, [facility] in [place], [place] [address] [place] [phone] Blanche Monzon P.A.-C., M.S. [address] [place] [phone] 01/02/2024 11:30 AM CDT Appointment Department of Radiology, [facility], in [place], [place] [address] [place] [phone] Blanche Monzon P.A.-C., M.S. [address] [place] [phone] 01/02/2024 1:00 PM CDT Office Visit Department of Oncology in [address] [phone] Mc Mcknight M.D., Ph.D. [address] [place] [phone] 01/02/2024 3:00 PM CDT Infusion Department of Oncology in [place], [place] [address] [place] [phone] Blanche Monzon P.A.-C., M.S. [address] [place] [phone] 01/09/2024 10:15 AM PACK WORKER Clinical Communication Virtual Review in [place], [place] 200 [place] [address] 01/11/2024 9:00 AM PACK WORKER Appointment Department of Radiology, [facility] in [place], [place] [address] [place] [phone] Tammie Hooks M.D., Ph.D. [address] [place] [phone] 01/11/2024 2:00 PM PACK WORKER Appointment Department of Radiation Oncology in [address] [place] [address] Tammie Hooks M.D., Ph.D. [address] [place] [phone] 01/17/2024 9:00 AM PACK WORKER Clinical Communication Virtual Review in [place], [place] 200 [place] [phone] 01/19/2024 1:00 PM PACK WORKER Comprehensive Visit Department of Neurology in [place], [place] [address] [place] [phone] Kory Alas M.B., Ch.B. [address] [place] [phone] documented as of this encounter Visit Diagnoses Not on filedocumented in this encounter Care Teams Help Desk Assistant Relationship Specialty Start Date End Date Elsewhere, Pcp PCP - General Family Medicine 02/01/22 documented as of this encounter
--- OUTSIDE RECORDS SUMMARY | 2023-11-15 14:20 | XMS_ITS | Encounter Summary ---
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 [address] [place] [phone] [facility] [address] [place] [phone] Referral ID Status Reason Start Date Expiration Date V isits Requested Visits Authorized [id number] Authorized 07/28/2023 07/27/2025 99 99 Encounter Details Date Type Department Care Team (Late st Contact Info) Description 09/19/2023 2:00 PM CDT Infusion Department of Oncology in [place], [place] [address] [place] [phone] Blanche Monzon P.A.-C., M.S. [address] [place] [phone] Malignant Neoplasm Of Neck Squamous Cell (Primary Dx); Secondary Malignant Neoplasm Bone (HCC); Squamous Cell Carcinoma Of Skin Of Scalp And Neck; Other Operating Room Rn Current Drug Therapy Social History Tobacco Use [...] at all 09/02/2022 [facility] [place] of Occupat ional Health - Occupational Stress [...] Sex Assigned at Female 01/24/2022 7:37 PM GRINDER MILL OPERATOR Gender Identity Female 01/24/2022 7:37 PM GRINDER MILL OPERATOR Sexual Orientation Straight 01/24/2022 7: 37 PM GRINDER MILL OPERATOR documented as of this encounter Plan of Treatment Upcoming Encounters Date Type Department Care Team (Late st Contact Info) Description 11/17/2023 11:00 AM CDT Clinical Communication Virtual Review in [address] [phone] 11/21/2023 11:10 AM CDT Lab Department of Laboratory Medicine and Pathology, [facility], in [place], [place] [address] [place] [phone] Remigio Frey M.D., Ph.D. [address] [place] [phone] 11/21/2023 1:00 PM CDT Office Visit Department of Oncology in [address] [phone] Mc Mcknight M.D., Ph.D. [address] [place] [phone] 11/21/2023 2:15 PM CDT Infusion Department of Oncology in [address] [phone] Remigio Frey M.D., Ph.D. [address] [place] [phone] 12/11/2023 1:45 PM CDT Clinical Communication Virtual Review in [address] [phone] 12/12/2023 11:00 AM CDT Lab Department of Laboratory Medicine and Pathology, [facility], in [place], [place] [address] [place] [phone] Remigio Frey M.D., Ph.D. [address] [place] [phone] 12/12/2023 1:00 PM CDT Office Visit Department of Oncology in [address] [phone] Mc Mcknight M.D., Ph.D. [address] [place] [phone] 12/12/2023 3:00 PM CDT Infusion Department of Oncology in [place], [place] [address] [place] [phone] Remigio Frey M.D., Ph.D. [address] [place] [phone] 12/29/2023 1:15 PM CDT Clinical Communication Virtual Review in [place], [place] 200 [place] [address] 01/02/2024 10:00 AM CDT Lab Department of Laboratory Medicine and Pathology, [facility], in [place], [place] [address] [place] [phone] Blanche Monzon P.A.-C., M.S. [address] [place] [phone] 01/02/2024 11:30 AM CDT Appointment Department of Radiology, [facility], in [place], [place] [address] [place] [phone] Blanche Monzon P.A.-C., M.S. [address] [place] [phone] 01/02/2024 1:00 PM CDT Office Visit Department of Oncology in [place], [place] [address] [place] [phone] Mc Mcknight M.D., Ph.D. [address] [place] [phone] 01/02/2024 3:00 PM CDT Infusion Department of Oncology in [place], [place] [address] [place] [phone] Blanche Monzon P.A.-C., M.S. [address] [place] [phone] 01/09/2024 10:15 AM GRINDER MILL OPERATOR Clinical Communication Virtual Review in [address] [phone] 01/11/2024 9:00 AM GRINDER MILL OPERATOR Appointment Department of Radiology, [facility] in [address] [phone] Tammie Hooks M.D., Ph.D. [address] [place] [phone] 01/11/2024 2:00 PM GRINDER MILL OPERATOR Appointment Department of Radiation Oncology in [address] [phone] Tammie Hooks M.D., Ph.D. [address] [place] [phone] 01/17/2024 9:00 AM GRINDER MILL OPERATOR Clinical Communication Virtual Review in [address] [phone] 01/19/2024 1:00 PM GRINDER MILL OPERATOR Comprehensive Visit Department of Neurology in [address] [phone] Kory Alas M.B., Ch.B. 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
--- OUTSIDE RECORDS SUMMARY | 2023-11-15 14:20 | XMS_ITS | Encounter Summary ---
Author Organization [facility] Address [address] [place] [address] Care Team Providers Care Paraprofessional Education Assistant Name Role Phone Elsewhere, Pcp Primary Care Provider Unavailabl e Reason for Referral * MRI/CAT/PET Scan (Routine) - Closed Specialty Diagnoses / Procedures Referred By Ryan cronin Referred To Contact Radiology Diagnoses Squamous Cell Carcinoma Of Skin Of Scalp And Neck Lesion Lytic Bone Secondary Malignant Neoplasm Bone (HCC) Other Mcfp Current Drug Therapy Procedures MR Brain without and with IV Contrast Blanche Monzon P.A.-C., M.S. [address] [place] [address] [facility] Referral ID Status Reason Start Date Expiration Date Visits Re quested Visits Authorized [id number] Closed 07/28/2023 07/27/2024 1 1 Reason for Visit * MRI/CAT/PET Scan (Routine) - Closed Specialty Diagnoses / Procedures Referred By Ryan cronin Referred To Contact Radiology Diagnoses Squamous Cell Carcinoma Of Skin Of Scalp And Neck Lesion Lytic Bone Secondary Malignant Neoplasm Bone (HCC) Other Blogs Manager Current Drug Therapy Procedures MR Brain without and with IV Contrast Blanche Monzon P.A.-C., M.S. [address] [place] [address] [facility] Referral ID Status Reason Start Date Expiration Date Visits Re quested Visits Authorized [id number] Closed 07/28/2023 07/27/2024 1 1 Encounter Details Date Type Department Care Team (Latest Contact Info) Description 10/11/2023 7:41 AM CDT - 10/11/2023 3:29 PM CDT Hospital Encounter Department of Radiology, [place], [place] [address] [place] [address] Blanche Monzon P.A.-C., M.S. [address] [place] [address] Squamous Cell Carcinoma Of Skin Of Scalp And Neck; Secondary Malignant Neoplasm Bone (HCC); Other Mcfp Current Drug Therapy Discharge Disposition: Home or [...] and heating? Not hard at all 09/02/2022 [facility] - Occupational Stress Questionnaire Answer [...] your living situation today? I have a [facility] place to live 02/16/2023 Education Answer Date Recorded What is the highest level of school you have completed or the highest degree you have received? Bachelor's degree (e.g., BA, AB, BS) 01/24/2022 Sex and Gender Information Value Date Recorded Sex Assigned at Female 01/24/2022 7:37 PM DISPATCHER RADIO Gender Identity Female 01/24/2022 7:37 PM DISPATCHER RADIO Sexual Orientation Straight 01/24/2022 7: 37 PM DISPATCHER RADIO documented as of this encounter Medications at [...] CDT Clinical Communication Virtual Review in [address] [phone] 11/21/2023 11:10 AM CDT Lab Department of Laboratory Medicine and Pathology, [address] [address] Remigio Frey M.D., Ph.D. [address] [place] [phone] 11/21/2023 1:00 PM CDT Office Visit Department of Oncology in [address] [phone] Mc Mcknight M.D., Ph.D. [address] [place] [phone] 11/21/2023 2:15 PM CDT Infusion Department of Oncology in [address] [address] Remigio Frey M.D., Ph.D. [address] [place] [phone] 12/11/2023 1:45 PM CDT Clinical Communication Virtual Review in [address] [address] 12/12/2023 11:00 AM CDT Lab Department of Laboratory Medicine and Pathology, [facility] in [address] [address] Remigio Frey M.D., Ph.D. [address] [place] [phone] 12/12/2023 1:00 PM CDT Office Visit Department of Oncology in [place], [place] [address] [place] [phone] Mc Mcknight M.D., Ph.D. [address] [place] [phone] 12/12/2023 3:00 PM CDT Infusion Department of Oncology in [place], [place] [address] [place] [phone] Remigio Frey M.D., Ph.D. [address] [place] [phone] 12/29/2023 1:15 PM CDT Clinical Communication Virtual Review in [place], [place] 200 [place] [address] 01/02/2024 10:00 AM CDT Lab Department of Laboratory Medicine and Pathology, [facility], in [place], [place] [address] [place] [phone] Blanche Monzon P.A.-C., M.S. [address] [place] [phone] 01/02/2024 11:30 AM CDT Appointment Department of Radiology, [facility], in [place], [place] [address] [place] [phone] Blanche Monzon P.A.-C., M.S. [address] [place] [phone] 01/02/2024 1:00 PM CDT Office Visit Department of Oncology in [place], [place] [address] [place] [phone] Mc Mcknight M.D., Ph.D. [address] [place] [phone] 01/02/2024 3:00 PM CDT Infusion Department of Oncology in [place], [place] [address] [place] [phone] Blanche Monzon P.A.-C., M.S. [address] [place] [phone] 01/09/2024 10:15 AM DISPATCHER RADIO Clinical Communication Virtual Review in [address] [phone] 01/11/2024 9:00 AM DISPATCHER RADIO Appointment Department of Radiology, [facility] in [address] [phone] Tammie Hooks M.D., Ph.D. [address] [place] [phone] 01/11/2024 2:00 PM DISPATCHER RADIO Appointment Department of Radiation Oncology in [address] [address] Tammie Hooks M.D., Ph.D. [address] [place] [phone] 01/17/2024 9:00 AM DISPATCHER RADIO Clinical Communication Virtual Review in [address] [address] 01/19/2024 1:00 PM DISPATCHER RADIO Comprehensive Visit Department of Neurology in [address] [phone] Kory Alas M.B., Ch.B. [address] [place] [phone] documented as of this encounter Procedures Procedure Name Priority Date/Time Associated Diagnosis Comments MR BRAIN WITHOUT AND WITH IV CONTRAST RAD - Routine (most inpatients and all outpatients) 10/11/2023 8:50 AM CDT Squamous Cell Carcinoma Of Skin Of Scalp And Neck Secondary Malignant Neoplasm Bone (HCC) Other Mcfp Current Drug Therapy documented in this encounter Results * MR Brain without and with IV Contrast (10/11/2023 8:50 AM CDT) Anatomical Region Laterality Modality Head, Brain, Neuroradiology [facility]ST [facility], Neuroradiology ARZ [facility], Neuroradiology FLA [facility] N/A Magnetic Resonance Impressions 10/11/2023 10:22 [...] are clear. Procedure Note Juma Lennon M.B.B.S., MMED. - 10/11/2023 EXAM: MR BRAIN WITHOUT AND [...] Blanche Monzon P.A.-C., M.S. IMG MRI PROCEDURES documented in this encounter Visit Diagnoses Diagnosis Squamous Cell Carcinoma Of Skin Of Scalp And Neck Secondary Malignant Neoplasm Bone (HCC) Other Mcfp [...] mL documented in this encounter Care Teams Paraprofessional Education Assistant Relationship Specialty Start Date End Date Elsewhere, Pcp PCP - General Family Medicine 02/01/22 documented as of this encounter
--- OUTSIDE RECORDS SUMMARY | 2023-11-15 14:20 | XMS_ITS | Encounter Summary ---
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 [address] [place] [phone] [facility] [address] [place] [phone] Referral ID Status Reason Start Date Expiration Date V isits Requested Visits Authorized [id number] Authorized 07/28/2023 07/27/2025 99 99 Encounter Details Date Type Department Care Team (Late st Contact Info) Description 08/29/2023 1:40 PM CDT Office Visit Department of Oncology in [place], [place] [address] [place] [phone] Farnaz Mccarty APRN, C.N.P. 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 Never 01/24/2022 Do you belong to [...] at all 09/02/2022 [employer] [place] [facility] - Occupational Stress Questionnaire Answer [...] living situation today? I have a [facility] place to live 02/16/2023 Education Answer Date Recorded What is the highest level of school you have completed or the highest degree you have received? Bachelor's degree (e.g., BA, AB, BS) 01/24/2022 Sex and Gender Information Value Date Recorded Sex Assigned at Female 01/24/2022 7:37 PM ENTRY REP Gender Identity Female 01/24/2022 7:37 PM ENTRY REP Sexual Orientation Straight 01/24/2022 7: 37 PM ENTRY REP documented as of this encounter Last Filed [...] the vertex of the scalp. Evaluated by sorting cows worker Dr. Banuelos in [place] and was treated for possible psoriasis. The lesion persisted after 6 weeks. She was then treated with UV phototherapy between September and December of 2021. September 22, 2021---December 17, 2021: Underwent biopsy of the vertex scalp lesion which revealed squamous cell carcinoma. Incisional biopsy of left level 5 lymph node also revealed squamous cell carcinoma. 12/30/2021 Biopsy/Pathology A. Skin, scalp, vertex, excisional biopsy ([id number]; 12/30/2021): Invasive poorly differentiated squamous cell carcinoma, transected at base and lateral edge of the specimen. B. Neck, left, soft tissue, biopsy ([id number]; 01/13/2022): Invasive poorly differentiated squamous cell carcinoma [...] AM CDT Clinical Communication Virtual Review in [address] [phone] 11/21/2023 11:10 AM CDT Lab Department of Laboratory Medicine and Pathology, [facility], in [address] [address] Remigio Frey M.D., Ph.D. [address] [place] [phone] 11/21/2023 1:00 PM CDT Office Visit Department of Oncology in [address] [phone] Mc Mcknight M.D., Ph.D. [address] [place] [phone] 11/21/2023 2:15 PM CDT Infusion Department of Oncology in [address] [address] Remigio Frey M.D., Ph.D. [address] [place] [phone] 12/11/2023 1:45 PM CDT Clinical Communication Virtual Review in [address] [address] 12/12/2023 11:00 AM CDT Lab Department of Laboratory Medicine and Pathology, [facility], in [place], [place] [address] [place] [phone] Remigio Frey M.D., Ph.D. [address] [place] [phone] 12/12/2023 1:00 PM CDT Office Visit Department of Oncology in [place], [place] [address] [place] [phone] Mc Mcknight M.D., Ph.D. [address] [place] [phone] 12/12/2023 3:00 PM CDT Infusion Department of Oncology in [place], [place] [address] [place] [phone] Remigio Frey M.D., Ph.D. [address] [place] [phone] 12/29/2023 1:15 PM CDT Clinical Communication Virtual Review in [place], [place] 200 [place] [address] 01/02/2024 10:00 AM CDT Lab Department of Laboratory Medicine and Pathology, [facility], in [place], [place] [address] [place] [phone] Blanche Monzon P.A.-C., M.S. [address] [place] [phone] 01/02/2024 11:30 AM CDT Appointment Department of Radiology, [facility], in [place], [place] [address] [place] [phone] Blanche Monzon P.A.-C., M.S. [address] [place] [phone] 01/02/2024 1:00 PM CDT Office Visit Department of Oncology in [place], [place] [address] [place] [phone] Mc Mcknight M.D., Ph.D. [address] [place] [phone] 01/02/2024 3:00 PM CDT Infusion Department of Oncology in [place], [place] [address] [place] [phone] Blanche Monzon P.A.-C., M.S. [address] [place] [phone] 01/09/2024 10:15 AM ENTRY REP Clinical Communication Virtual Review in [address] [phone] 01/11/2024 9:00 AM ENTRY REP Appointment Department of Radiology, [facility] in [place], [place] [address] [place] [phone] Tammie Hooks M.D., Ph.D. [address] [place] [phone] 01/11/2024 2:00 PM ENTRY REP Appointment Department of Radiation Oncology in [address] [phone] Tammie Hooks M.D., Ph.D. [address] [place] [phone] 01/17/2024 9:00 AM ENTRY REP Clinical Communication Virtual Review in [address] [phone] 01/19/2024 1:00 PM ENTRY REP Comprehensive Visit Department of Neurology in [place], [place] [address] [place] [phone] Kory Alas M.B., Ch.B. [address] [place] [address] documented as of this encounter Visit Diagnoses Diagnosis 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 Other Retirement Current Drug Therapy documented in this encounter Care Teams Concrete Batching Plant Operator Relationship Specialty Start Date End Date Elsewhere, Pcp PCP - General Family Medicine 02/01/22 documented as of this encounter
--- OUTSIDE RECORDS SUMMARY | 2023-11-15 14:21 | XMS_ITS | Encounter Summary ---
Author Organization [facility] Address [address] [place] [address] Care Team Providers Care It Applications Developer Name Role Phone Elsewhere, Pcp Primary Care Provider Unavailabl e Reason for Visit * Reason Onset Date Comments Sx- foot vibration 08/16/2023 Encounter Details Date Type Department Care Team (Latest Contact Info) Description 08/16/2023 Clinical Communication Department of Oncology in [place], [place] [address] [place] [address] Tammie Adams, RNeyN. [address] [place] [address] Sx- foot vibration Social History Tobacco Use [...] 09/02/2022 [facility] - Occupational Stress Questionnaire Answer Date [...] your living situation today? [facility] [employer] [facility] 02/16/2023 Education Answer Date Recorded What is the highest level of school you have completed or the highest degree you have received? Bachelor's degree (e.g., BA, AB, BS) 01/24/2022 Sex and Gender Information Value Date Recorded Sex Assigned at Female 01/24/2022 7:37 PM PAPER CUP HANDLE MACHINE OPERATOR Gender Identity Female 01/24/2022 7:37 PM PAPER CUP HANDLE MACHINE OPERATOR Sexual Orientation Straight 01/24/2022 7: 37 PM PAPER CUP HANDLE MACHINE OPERATOR documented as of this encounter Miscellaneous Notes * Telephone Encounter - Ekta Oscar R.N. - 08/16/2023 2:47 PM CDT ASSESSMENT [...] CDT Clinical Communication Virtual Review in [address] [phone] 11/21/2023 11:10 AM CDT Lab Department of Laboratory Medicine and Pathology, [facility], in [address] [address] Remigio Frey M.D., Ph.D. [address] [place] [phone] 11/21/2023 1:00 PM CDT Office Visit Department of Oncology in [address] [phone] Mc Mcknight M.D., Ph.D. [address] [place] [phone] 11/21/2023 2:15 PM CDT Infusion Department of Oncology in [address] [phone] Remigio Frey M.D., Ph.D. [address] [place] [phone] 12/11/2023 1:45 PM CDT Clinical Communication Virtual Review in [place], [place] 200 [place] [address] 12/12/2023 11:00 AM CDT Lab Department of Laboratory Medicine and Pathology, [facility], in [place], [place] [address] [place] [phone] Remigio Frey M.D., Ph.D. [address] [place] [phone] 12/12/2023 1:00 PM CDT Office Visit Department of Oncology in [place], [place] [address] [place] [phone] Mc Mcknight M.D., Ph.D. [address] [place] [phone] 12/12/2023 3:00 PM CDT Infusion Department of Oncology in [place], [place] [address] [place] [phone] Remigio Frey M.D., Ph.D. [address] [place] [phone] 12/29/2023 1:15 PM CDT Clinical Communication Virtual Review in [place], [place] [address] [place] [address] 01/02/2024 10:00 AM CDT Lab Department of Laboratory Medicine and Pathology, [facility], in [place], [place] [address] [place] [phone] Blanche Monzon P.A.-C., M.S. [address] [place] [phone] 01/02/2024 11:30 AM CDT Appointment Department of Radiology, [facility], in [place], [place] [address] [place] [address] Blanche Monzon P.A.-C., M.S. [address] [place] [phone] 01/02/2024 1:00 PM CDT Office Visit Department of Oncology in [place], [place] [address] [place] [phone] Mc Mcknight M.D., Ph.D. [address] [place] [phone] 01/02/2024 3:00 PM CDT Infusion Department of Oncology in [place], [place] [address] [place] [phone] Blanche Monzon P.A.-C., M.S. [address] [place] [phone] 01/09/2024 10:15 AM PAPER CUP HANDLE MACHINE OPERATOR Clinical Communication Virtual Review in [address] [phone] 01/11/2024 9:00 AM PAPER CUP HANDLE MACHINE OPERATOR Appointment Department of Radiology, [facility] in [address] [phone] Tammie Hooks M.D., Ph.D. [address] [place] [phone] 01/11/2024 2:00 PM PAPER CUP HANDLE MACHINE OPERATOR Appointment Department of Radiation Oncology in [place], [place] [address] [place] [phone] Tammie Hooks M.D., Ph.D. [address] [place] [phone] 01/17/2024 9:00 AM PAPER CUP HANDLE MACHINE OPERATOR Clinical Communication Virtual Review in [address] [phone] 01/19/2024 1:00 PM PAPER CUP HANDLE MACHINE OPERATOR Comprehensive Visit Department of Neurology in [place], [place] [address] [place] [phone] Kory Alas M.B., Ch.B. [address] [place] [phone] documented as of this encounter Visit Diagnoses Not on filedocumented in this encounter Care Teams It Applications Developer Relationship Specialty Start Date End Date Elsewhere, Pcp PCP - General Family Medicine 02/01/22 documented as of this encounter
--- OUTSIDE RECORDS SUMMARY | 2023-11-15 14:21 | XMS_ITS | Encounter Summary ---
Author Organization [facility] Address [address] [place] [address] Care Team Providers Care Aadc Plans Staff Officer Name Role Phone Elsewhere, Pcp Primary Care Provider Unavailabl e Reason for Visit * Episode Based Medications (Routine) - Authorized Specialty Diagnoses / Procedures Referred By Contac t Referred To Contact Diagnoses Other Care Home Current Drug Therapy 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 Nnamdi Jovel P.A.-C., M.S. [address] [place] [phone] [facility]st [facility] [address] [place] [phone] Referral ID Status Reason Start Date Expiration Date V isits Requested Visits Authorized [id number] Authorized 07/28/2023 07/27/2025 99 99 Encounter Details Date Type Department Care Team (Late st Contact Info) Description 08/08/2023 1:40 PM CDT Office Visit Department of Oncology in [place], [place] [address] [place] [phone] Nnamdi Jovel P.A.-C., M.S. 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 Never 01/24/2022 Do you belong to any clubs o r organizations such as mormonism groups, unions, fraternal or athletic groups, or [...] heating? Not hard at all 09/02/2022 [facility]at [facility] - Occupational Stress Questionnaire Answer Date [...] Sex Assigned at Female 01/24/2022 7:37 PM SOUND MIXER Gender Identity Female 01/24/2022 7:37 PM SOUND MIXER Sexual Orientation Straight 01/24/2022 7: 37 PM SOUND MIXER documented as of this encounter Last Filed [...] REQUESTING PROVIDER Nnamdi Jovel P.A.-C., M.S. [address] [place] [phone] PRIMARY COLLABORATING PROVIDER Mc Mcknight M.D., Ph.D. [...] the vertex of the scalp. Evaluated by process treater Dr. Banuelos in [place] and was treated for possible psoriasis. The lesion persisted after 6 weeks. She was then treated with UV phototherapy between September and December of 2021. September 22, 2021---December 17, 2021: Underwent biopsy of the vertex scalp lesion which revealed squamous cell carcinoma. Incisional biopsy of left level 5 lymph node also revealed squamous cell carcinoma. 12/30/2021 Biopsy/Pathology A. Skin, scalp, vertex, excisional biopsy ([id number]; 12/30/2021): Invasive poorly differentiated squamous cell carcinoma, transected at base and lateral edge of the specimen. B. Neck, left, soft tissue, biopsy ([id number]; 01/13/2022): Invasive poorly differentiated squamous cell carcinoma [...] needed. SOCIAL HISTORY Veronica Guevara lives in [place], [place], with her , Andre. Retired. PHYSICAL [...] Value Bilirubin, Direct, S <0.2 Thyroid Function [place] Collection Time: 08/08/23 11:12 AM Result Value TSH, Sensitive 1.6 RADIOLOGICAL DATA Reviewed. ASSESSMENT / PLAN #1 Secondary Malignant Neoplasm Bone (HCC) #2 Squamous Cell Carcinoma Of Skin Of Scalp And Neck #3 Other Assistant Statistician Current Drug Therapy Veronica Guevara is a [...] physicians, nurse practitioners/physician assistants, nurses and other fire support specialist that specialize in this cancer. [...] CDT Clinical Communication Virtual Review in [address] [phone] 11/21/2023 11:10 AM CDT Lab Department of Laboratory Medicine and Pathology, [facility], in [place], [place] [address] [place] [phone] Remigio Frey M.D., Ph.D. [address] [place] [phone] 11/21/2023 1:00 PM CDT Office Visit Department of Oncology in [place], [place] [address] [place] [phone] Mc Mcknight M.D., Ph.D. [address] [place] [phone] 11/21/2023 2:15 PM CDT Infusion Department of Oncology in [place], [place] [address] [place] [phone] Remigio Frey M.D., Ph.D. [address] [place] [phone] 12/11/2023 1:45 PM CDT Clinical Communication Virtual Review in [place], [place] 200 [place] [address] 12/12/2023 11:00 AM CDT Lab Department of Laboratory Medicine and Pathology, [facility], in [place], [place] [address] [place] [phone] Remigio Frey M.D., Ph.D. [address] [place] [phone] 12/12/2023 1:00 PM CDT Office Visit Department of Oncology in [place], [place] [address] [place] [phone] Mc Mcknight M.D., Ph.D. [address] [place] [phone] 12/12/2023 3:00 PM CDT Infusion Department of Oncology in [place], [place] [address] [place] [phone] Remigio Frey M.D., Ph.D. [address] [place] [phone] 12/29/2023 1:15 PM CDT Clinical Communication Virtual Review in [address] [phone] 01/02/2024 10:00 AM CDT Lab Department of Laboratory Medicine and Pathology, [facility] in [place], [place] [address] [place] [phone] Nnamdi Jovel P.A.-C., M.S. [address] [place] [phone] 01/02/2024 11:30 AM CDT Appointment Department of Radiology, [facility], in [place], [place] [address] [place] [phone] Nnamdi Jovel P.A.-C., M.S. [address] [place] [phone] 01/02/2024 1:00 PM CDT Office Visit Department of Oncology in [address] [phone] Mc Mcknight M.D., Ph.D. [address] [place] [phone] 01/02/2024 3:00 PM CDT Infusion Department of Oncology in [place], [place] [address] [place] [phone] Nnamdi Jovel P.A.-C., M.S. [address] [place] [phone] 01/09/2024 10:15 AM [facility] Clinical Communication Virtual Review in [address] [place] [address] 01/11/2024 9:00 AM SOUND MIXER Appointment Department of Radiology, [facility] in [place], [place] [address] [place] [phone] Tammie Hooks M.D., Ph.D. [address] [place] [phone] 01/11/2024 2:00 PM SOUND MIXER Appointment Department of Radiation Oncology in [place], [place] [address] [place] [phone] Tammie Hooks M.D., Ph.D. [address] [place] [phone] 01/17/2024 9:00 AM SOUND MIXER Clinical Communication Virtual Review in [address] [phone] 01/19/2024 1:00 PM SOUND MIXER Comprehensive Visit Department of Neurology in [place], [place] [address] [place] [phone] Kory Alas M.B., Ch.B. [address] [place] [phone] documented as of this encounter Visit Diagnoses Diagnosis 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 Other Assistant Statistician Current Drug Therapy documented in this encounter Care Teams Aadc Plans Staff Officer Relationship Specialty Start Date End Date Elsewhere, Pcp PCP - General Family Medicine 02/01/22 documented as of this encounter
--- OUTSIDE RECORDS SUMMARY | 2023-11-15 14:21 | XMS_ITS | Encounter Summary ---
Author Organization [facility] Address [address] [place] [address] Care Team Providers Care Pumping Supervisor Name Role Phone Elsewhere, Pcp Primary Care Provider Unavailabl e Reason for Visit * Reason Comments Med Refill Encounter Details Date Type Department Care Team (Late st Contact Info) Description 08/16/2023 Refill Department of Radiation Oncology in [place], [place] [address] [phone] Tammie Hooks M.D., Ph.D. [address] [place] [phone] Med Refill Social History Tobacco Use Types [...] and heating? Not hard at all 09/02/2022 [facility] - Occupational Stress Questionnaire Answer Date [...] your living situation today? I have a [facility] place to live 02/16/2023 Education Answer Date Recorded What is the highest level of school you have completed or the highest degree you have received? Bachelor's degree (e.g., BA, AB, BS) 01/24/2022 Sex and Gender Information Value Date Recorded Sex Assigned at Female 01/24/2022 7:37 PM CODING MACHINE OPERATOR Gender Identity Female 01/24/2022 7:37 PM CODING MACHINE OPERATOR Sexual Orientation Straight 01/24/2022 7: 37 PM CODING MACHINE OPERATOR documented as of this encounter Miscellaneous Notes * Telephone Encounter - Tammie Hooks M.D., Ph.D. - 08/16/2023 10:47 AM CDT From: Veronica Guevara To: Office of Karina Garcia APRN, C.NPiero, M.S.N. Sent: 08/15/2023 4:48 PM CDT Subject: Medication Renewal Request Refills have been requested for the following medications: levothyroxine (Synthroid) 50 mcg tablet [Karina Garcia APRN, C.N.[place], M.S.N.] Preferred pharmacy: [address] Delivery method: Pickup documented in this encounter Plan of Treatment Upcoming Encounters Date Type Department Care Team (Late st Contact Info) Description 11/17/2023 11:00 AM CDT Clinical Communication Virtual Review in [place], [place] 200 [place] [address] 11/21/2023 11:10 AM CDT Lab Department of Laboratory Medicine and Pathology, [facility], in [place], [place] [address] [place] [phone] Remigio Frey M.D., Ph.D. [address] [place] [phone] 11/21/2023 1:00 PM CDT Office Visit Department of Oncology in [address] [phone] Mc Mcknight M.D., Ph.D. [address] [place] [phone] 11/21/2023 2:15 PM CDT Infusion Department of Oncology in [place], [place] [address] [place] [phone] Remigio Frey M.D., Ph.D. [address] [place] [phone] 12/11/2023 1:45 PM CDT Clinical Communication Virtual Review in [address] [phone] 12/12/2023 11:00 AM CDT Lab Department of Laboratory Medicine and Pathology, [facility], in [address] [phone] Remigio Frey M.D., Ph.D. [address] [place] [phone] 12/12/2023 1:00 PM CDT Office Visit Department of Oncology in [address] [place] [phone] Mc Mcknight M.D., Ph.D. [address] [place] [phone] 12/12/2023 3:00 PM CDT Infusion Department of Oncology in [place], [place] [address] [place] [phone] Remigio Frey M.D., Ph.D. [address] [place] [phone] 12/29/2023 1:15 PM CDT Clinical Communication Virtual Review in [place], [place] 200 [place] [address] 01/02/2024 10:00 AM CDT Lab Department of Laboratory Medicine and Pathology, [facility] in [place], [place] [address] [place] [phone] Blanche Monzon P.A.-C., M.S. [address] [place] [phone] 01/02/2024 11:30 AM CDT Appointment Department of Radiology, [facility], in [place], [place] [address] [place] [phone] Blanche Monzon P.A.-C., M.S. [address] [place] [phone] 01/02/2024 1:00 PM CDT Office Visit Department of Oncology in [place], [place] [address] [place] [phone] Mc Mcknight M.D., Ph.D. [address] [place] [phone] 01/02/2024 3:00 PM CDT Infusion Department of Oncology in [place], [place] [address] [place] [phone] Blanche Monzon P.A.-C., M.S. [address] [place] [phone] 01/09/2024 10:15 AM CODING MACHINE OPERATOR Clinical Communication Virtual Review in [place], [place] 200 [place] [address] 01/11/2024 9:00 AM CODING MACHINE OPERATOR Appointment Department of Radiology, [facility] in [place], [place] [address] [place] [phone] Tammie Hooks M.D., Ph.D. [address] [place] [phone] 01/11/2024 2:00 PM CODING MACHINE OPERATOR Appointment Department of Radiation Oncology in [address] [phone] Tammie Hooks M.D., Ph.D. [address] [place] [phone] 01/17/2024 9:00 AM CODING MACHINE OPERATOR Clinical Communication Virtual Review in [address] [phone] 01/19/2024 1:00 PM CODING MACHINE OPERATOR Comprehensive Visit Department of Neurology in [address] [phone] Kory Alas M.B., Ch.B. [address] [place] [phone] documented as of this encounter Visit Diagnoses Not on filedocumented in this encounter Care Teams Pumping Supervisor Relationship Specialty Start Date End Date Elsewhere, Pcp PCP - General Family Medicine 02/01/22 documented as of this encounter
--- OUTSIDE RECORDS SUMMARY | 2023-11-15 14:21 | XMS_ITS | Encounter Summary ---
Author Organization [facility] Address 200 [place] [address] Care Team Providers Care Kickboxing Instructor Name Role Phone Elsewhere, Pcp Primary Care Provider Unavailabl e Reason for Referral * Outpatient (Routine) - Closed Specialty Diagnoses / Procedures Referred By Contac t Referred To Contact Radiation Oncology Tammie Hooks M.D., Ph.D. [address] [place] [phone] [facility] Referral ID Status Reason Start Date Expiration Date Visits Re quested Visits Authorized [id number] Closed 08/28/2023 02/26/2025 1 1 Encounter Details Date Type Department Care Team (Late st Contact Info) Description 08/28/2023 Orders Only Department of Radiation Oncology in [place], [place] [address] [place] [phone] Tammie Hooks M.D., Ph.D. [address] [place] [phone] Social History Tobacco Use Types Packs/Day Years [...] often do you attend chur ch or moravian services? Never 01/24/2022 Do you [...] hard at all 09/02/2022 [facility] Occupat ional [facility] - Occupational Stress [...] living situation today? I have a [facility] place to live 02/16/2023 Education Answer Date Recorded What is the highest level of school you have completed or the highest degree you have received? Bachelor's degree (e.g., BA, AB, BS) 01/24/2022 Sex and Gender Information Value Date Recorded Sex Assigned at Female 01/24/2022 7:37 PM MEDICAL INTERPRETER Gender Identity Female 01/24/2022 7:37 PM MEDICAL INTERPRETER Sexual Orientation Straight 01/24/2022 7: 37 PM MEDICAL INTERPRETER documented as of this encounter Plan of Treatment Upcoming Encounters Date Type Department Care Team (Late st Contact Info) Description 11/17/2023 11:00 AM CDT Clinical Communication Virtual Review in [address] [phone] 11/21/2023 11:10 AM CDT Lab Department of Laboratory Medicine and Pathology, [facility], in [place], [place] [address] [place] [phone] Remigio Frey M.D., Ph.D. [address] [place] [phone] 11/21/2023 1:00 PM CDT Office Visit Department of Oncology in [place], [place] [address] [place] [phone] Mc Mcknight M.D., Ph.D. [address] [place] [phone] 11/21/2023 2:15 PM CDT Infusion Department of Oncology in [place], [place] [address] [place] [phone] Remigio Frey M.D., Ph.D. [address] [place] [phone] 12/11/2023 1:45 PM CDT Clinical Communication Virtual Review in [place], [place] 200 [place] [address] 12/12/2023 11:00 AM CDT Lab Department of Laboratory Medicine and Pathology, [facility], in [place], [place] [address] [place] [phone] Remigio Frey M.D., Ph.D. [address] [place] [phone] 12/12/2023 1:00 PM CDT Office Visit Department of Oncology in [address] [phone] Mc Mcknight M.D., Ph.D. [address] [place] [phone] 12/12/2023 3:00 PM CDT Infusion Department of Oncology in [place], [place] [address] [place] [phone] Remigio Frey M.D., Ph.D. [address] [place] [phone] 12/29/2023 1:15 PM CDT Clinical Communication Virtual Review in [place], [place] 200 [place] [address] 01/02/2024 10:00 AM CDT Lab Department of Laboratory Medicine and Pathology, [facility] in [place], [place] [address] [place] [phone] Blanche Monzon P.A.-C., M.S. [address] [place] [phone] 01/02/2024 11:30 AM CDT Appointment Department of Radiology, [facility], in [place], [place] [address] [place] [phone] Blanche Monzon P.A.-C., M.S. [address] [place] [phone] 01/02/2024 1:00 PM CDT Office Visit Department of Oncology in [address] [phone] Mc Mcknight M.D., Ph.D. [address] [place] [phone] 01/02/2024 3:00 PM CDT Infusion Department of Oncology in [place], [place] [address] [place] [phone] Blanche Monzon P.A.-C., M.S. [address] [place] [phone] 01/09/2024 10:15 AM MEDICAL INTERPRETER Clinical Communication Virtual Review in [place], [place] 200 [place] [address] 01/11/2024 9:00 AM MEDICAL INTERPRETER Appointment Department of Radiology, [facility] in [place], [place] [address] [place] [phone] Tammie Hooks M.D., Ph.D. [address] [place] [phone] 01/11/2024 2:00 PM MEDICAL INTERPRETER Appointment Department of Radiation Oncology in [place], [place] [address] [place] [phone] Tammie Hooks M.D., Ph.D. [address] [place] [phone] 01/17/2024 9:00 AM MEDICAL INTERPRETER Clinical Communication Virtual Review in [place], [place] 200 [place] [address] 01/19/2024 1:00 PM MEDICAL INTERPRETER Comprehensive Visit Department of Neurology in [address] [phone] Kory Alas M.B., Ch.B. [address] [place] [phone] Scheduled Referrals Name Type Priority Associated Diagnoses Orde r Schedule Radiation Oncology office visit (clinic) Outpatient Referral Routine Expected: 10/11/2023 (Approximate), Expires: 11/27/2024 documented as of this encounter Visit Diagnoses Not on filedocumented in this encounter Care Teams Kickboxing Instructor Relationship Specialty Start Date End Date Elsewhere, Pcp PCP - General Family Medicine 02/01/22 documented as of this encounter
--- OUTSIDE RECORDS SUMMARY | 2023-11-15 14:21 | XMS_ITS | Encounter Summary ---
Author Organization [facility] Address [address] [place] [address] Care Team Providers Care Processing Specialist Name Role Phone Elsewhere, Pcp Primary Care Provider Unavailabl e Encounter Details Date Type Department Care Team (Latest Contact Info) Description 08/28/2023 10:00 AM CDT Clinical Communication Virtual Review in [place], [place] 200 [place] [address] Social History Tobacco Use Types Packs/Day Years [...] your living situation today? I have a [facility] place to live 02/16/2023 Education Answer Date Recorded What is the highest level of school you have completed or the highest degree you have received? Bachelor's degree (e.g., BA, AB, BS) 01/24/2022 Sex and Gender Information Value Date Recorded Sex Assigned at Female 01/24/2022 7:37 PM DEPUTY CHIEF SHERIFF Gender Identity Female 01/24/2022 7:37 PM DEPUTY CHIEF SHERIFF Sexual Orientation Straight 01/24/2022 7: 37 PM DEPUTY CHIEF SHERIFF documented as of this encounter Plan of Treatment Upcoming Encounters Date Type Department Care Team (Late st Contact Info) Description 11/17/2023 11:00 AM CDT Clinical Communication Virtual Review in [place], [place] 200 [place] [address] 11/21/2023 11:10 AM CDT Lab Department of Laboratory Medicine and Pathology, [facility], in [address] [phone] Remigio Frey M.D., Ph.D. [address] [place] [phone] 11/21/2023 1:00 PM CDT Office Visit Department of Oncology in [address] [phone] Mc Mcknight M.D., Ph.D. [address] [place] [phone] 11/21/2023 2:15 PM CDT Infusion Department of Oncology in [place], [place] [address] [place] [phone] Remigio Frey M.D., Ph.D. [address] [place] [phone] 12/11/2023 1:45 PM CDT Clinical Communication Virtual Review in [place], [place] 200 [place] [address] 12/12/2023 11:00 AM CDT Lab Department of Laboratory Medicine and Pathology, [facility] in [place], [place] [address] [place] [phone] Remigio Frey M.D., Ph.D. [address] [place] [phone] 12/12/2023 1:00 PM CDT Office Visit Department of Oncology in [place], [place] [address] [place] [phone] Mc Mcknight M.D., Ph.D. [address] [place] [phone] 12/12/2023 3:00 PM CDT Infusion Department of Oncology in [address] [phone] Remigio Frey M.D., Ph.D. [address] [place] [phone] 12/29/2023 1:15 PM CDT Clinical Communication Virtual Review in [address] [phone] 01/02/2024 10:00 AM CDT Lab Department of Laboratory Medicine and Pathology, [facility] in [place], [place] [address] [place] [phone] Blanche Monzon P.A.-C., M.S. [address] [place] [phone] 01/02/2024 11:30 AM CDT Appointment Department of Radiology, [facility] in [place], [place] [address] [place] [address] Blanche Monzon P.A.-C., M.S. [address] [place] [phone] 01/02/2024 1:00 PM CDT Office Visit Department of Oncology in [place], [place] [address] [place] [phone] Mc Mcknight M.D., Ph.D. [address] [place] [phone] 01/02/2024 3:00 PM CDT Infusion Department of Oncology in [place], [place] [address] [place] [phone] Blanche Monzon P.A.-C., M.S. [address] [place] [phone] 01/09/2024 10:15 AM DEPUTY CHIEF SHERIFF Clinical Communication Virtual Review in [place], [place] 200 [place] [address] 01/11/2024 9:00 AM DEPUTY CHIEF SHERIFF Appointment Department of Radiology, [facility] in [place], [place] [address] [place] [phone] Tammie Hooks M.D., Ph.D. [address] [place] [phone] 01/11/2024 2:00 PM DEPUTY CHIEF SHERIFF Appointment Department of Radiation Oncology in [place], [place] [address] [place] [phone] Tammie Hooks M.D., Ph.D. [address] [place] [phone] 01/17/2024 9:00 AM DEPUTY CHIEF SHERIFF Clinical Communication Virtual Review in [place], [place] 200 [place] [phone] 01/19/2024 1:00 PM DEPUTY CHIEF SHERIFF Comprehensive Visit Department of Neurology in [address] [phone] Kory Alas M.B., Ch.B. [address] [place] [phone] documented as of this encounter Visit Diagnoses Not on filedocumented in this encounter Care Teams Processing Specialist Relationship Specialty Start Date End Date Elsewhere, Pcp PCP - General Family Medicine 02/01/22 documented as of this encounter
--- OUTSIDE RECORDS SUMMARY | 2023-11-15 14:21 | XMS_ITS | Encounter Summary ---
Author Organization 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 [address] [place] [phone] Rst Onc Rogo [address] [place] [phone] Referral ID Status Reason Start Date Expiration Date V isits Requested Visits Authorized [id number] Authorized 07/28/2023 07/27/2025 99 99 Encounter Details Date Type Department Care Team (Late st Contact Info) Description 08/08/2023 2:40 PM CDT Education Department of Oncology in [place], [place] [address] [place] [phone] Blanche Monzon P.A.-C., M.S. [address] [place] [phone] Janette Arango R.NNey 200 [place] [phone] Secondary Malignant Neoplasm Bone (HCC); Squamous Cell Carcinoma Of Skin Of Scalp And Neck; Other Rn Prior Authorization Current Drug Therapy Social History Tobacco Use [...] often do you attend [facility] or yarsanism services? Never 01/24/2022 Do you belong to any clubs o r organizations such as jehovah's witness groups, unions, fraternal or athletic groups, or [...] and heating? Not hard at all 09/02/2022 [facility] [place] [facility] Occupat [facility] - Occupational Stress [...] Sex Assigned at Female 01/24/2022 7:37 PM REFERENCE TEST CLERK Gender Identity Female 01/24/2022 7:37 PM REFERENCE TEST CLERK Sexual Orientation Straight 01/24/2022 7: 37 PM REFERENCE TEST CLERK documented as of this encounter Progress [...] AM CDT Clinical Communication Virtual Review in [address] [phone] 11/21/2023 11:10 AM CDT Lab Department of Laboratory Medicine and Pathology, [facility] in [address] [phone] Remigio Frey M.D., Ph.D. [address] [place] [phone] 11/21/2023 1:00 PM CDT Office Visit Department of Oncology in [address] [phone] Mc Mcknight M.D., Ph.D. [address] [place] [phone] 11/21/2023 2:15 PM CDT Infusion Department of Oncology in [address] [phone] Remigio Frey M.D., Ph.D. [address] [place] [phone] 12/11/2023 1:45 PM CDT Clinical Communication Virtual Review in [place], [place] 200 [place] [address] 12/12/2023 11:00 AM CDT Lab Department of Laboratory Medicine and Pathology, [facility], in [place], [place] [address] [place] [phone] Remigio Frey M.D., Ph.D. [address] [place] [phone] 12/12/2023 1:00 PM CDT Office Visit Department of Oncology in [place], [place] [address] [place] [phone] Mc Mcknight M.D., Ph.D. [address] [place] [phone] 12/12/2023 3:00 PM CDT Infusion Department of Oncology in [place], [place] [address] [place] [phone] Remigio Frey M.D., Ph.D. [address] [place] [phone] 12/29/2023 1:15 PM CDT Clinical Communication Virtual Review in [place], [place] 200 [place] [address] 01/02/2024 10:00 AM CDT Lab Department of Laboratory Medicine and Pathology, [facility], in [place], [place] [address] [place] [phone] Blanche Monzon P.A.-C., M.S. [address] [place] [phone] 01/02/2024 11:30 AM CDT Appointment Department of Radiology, [facility], in [place], [place] [address] [place] [phone] MontBlanche lujan P.A.-C., M.S. [address] [place] [phone] 01/02/2024 1:00 PM CDT Office Visit Department of Oncology in [place], [place] [address] [place] [phone] Mc Mcknight M.D., Ph.D. [address] [place] [phone] 01/02/2024 3:00 PM CDT Infusion Department of Oncology in [place], [place] [address] [place] [phone] Blanche Monzon P.A.-C., M.S. [address] [place] [phone] 01/09/2024 10:15 AM REFERENCE TEST CLERK Clinical Communication Virtual Review in [place], [place] 200 [place] [address] 01/11/2024 9:00 AM REFERENCE TEST CLERK Appointment Department of Radiology, [facility] in [place], [place] [address] [place] [phone] Tammie Hooks M.D., Ph.D. [address] [place] [phone] 01/11/2024 2:00 PM REFERENCE TEST CLERK Appointment Department of Radiation Oncology in [place], [place] [address] [place] [phone] Tammie Hooks M.D., Ph.D. [address] [place] [phone] 01/17/2024 9:00 AM REFERENCE TEST CLERK Clinical Communication Virtual Review in [address] [phone] 01/19/2024 1:00 PM REFERENCE TEST CLERK Comprehensive Visit Department of Neurology in [place], [place] [address] [place] [phone] Kory Alas M.B., Ch.B. 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
--- OUTSIDE RECORDS SUMMARY | 2023-11-15 14:21 | XMS_ITS | Encounter Summary ---
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 [address] [place] [phone] Rst Onc Rogo [address] [place] [phone] Referral ID Status Reason Start Date Expiration Date V isits Requested Visits Authorized [id number] Authorized 07/28/2023 07/27/2025 99 99 Encounter Details Date Type Department Care Team (Late st Contact Info) Description 08/08/2023 3:30 PM CDT Infusion Department of Oncology in [place], [place] [address] [place] [phone] Blanche Monzon P.A.-C., M.S. [address] [place] [phone] Other District Sales Coordinator Current Drug Therapy (Primary Dx); Secondary Malignant [...] How often do you attend chur or faith services? Never 01/24/2022 Do you [...] and heating? Not hard at all 09/02/2022 [facility] [place] of Occupat ional Health - Occupational Stress [...] Sex Assigned at Female 01/24/2022 7:37 PM PERINATAL DIRECTOR Gender Identity Female 01/24/2022 7:37 PM PERINATAL DIRECTOR Sexual Orientation Straight 01/24/2022 7: 37 PM PERINATAL DIRECTOR documented as of this encounter Plan of Treatment Upcoming Encounters Date Type Department Care Team (Late st Contact Info) Description 11/17/2023 11:00 AM CDT Clinical Communication Virtual Review in [address] [phone] 11/21/2023 11:10 AM CDT Lab Department of Laboratory Medicine and Pathology, [facility], in [place], [place] [address] [place] [phone] Remigio Frey M.D., Ph.D. [address] [place] [phone] 11/21/2023 1:00 PM CDT Office Visit Department of Oncology in [address] [phone] Mc Mcknight M.D., Ph.D. [address] [place] [phone] 11/21/2023 2:15 PM CDT Infusion Department of Oncology in [address] [phone] Remigio Frey M.D., Ph.D. [address] [place] [phone] 12/11/2023 1:45 PM CDT Clinical Communication Virtual Review in [address] [phone] 12/12/2023 11:00 AM CDT Lab Department of Laboratory Medicine and Pathology, [facility], in [place], [place] [address] [place] [phone] Remigio Frey M.D., Ph.D. [address] [place] [phone] 12/12/2023 1:00 PM CDT Office Visit Department of Oncology in [address] [phone] Mc Mcknight M.D., Ph.D. [address] [place] [phone] 12/12/2023 3:00 PM CDT Infusion Department of Oncology in [place], [place] [address] [place] [phone] Remigio Frey M.D., Ph.D. [address] [place] [phone] 12/29/2023 1:15 PM CDT Clinical Communication Virtual Review in [place], [place] 200 [place] [address] 01/02/2024 10:00 AM CDT Lab Department of Laboratory Medicine and Pathology, [facility], in [place], [place] [address] [place] [phone] Blanche Monzon P.A.-C., M.S. [address] [place] [phone] 01/02/2024 11:30 AM CDT Appointment Department of Radiology, [facility], in [place], [place] [address] [place] [phone] Blanche Monzon P.A.-C., M.S. [address] [place] [phone] 01/02/2024 1:00 PM CDT Office Visit Department of Oncology in [place], [place] [address] [place] [phone] Mc Mcknight M.D., Ph.D. [address] [place] [phone] 01/02/2024 3:00 PM CDT Infusion Department of Oncology in [place], [place] [address] [place] [phone] Blanche Monzon P.A.-C., M.S. [address] [place] [phone] 01/09/2024 10:15 AM PERINATAL DIRECTOR Clinical Communication Virtual Review in [address] [phone] 01/11/2024 9:00 AM PERINATAL DIRECTOR Appointment Department of Radiology, [facility] in [address] [phone] Tammie Hooks M.D., Ph.D. [address] [place] [phone] 01/11/2024 2:00 PM PERINATAL DIRECTOR Appointment Department of Radiation Oncology in [address] [phone] Tammie Hooks M.D., Ph.D. [address] [place] [phone] 01/17/2024 9:00 AM PERINATAL DIRECTOR Clinical Communication Virtual Review in [address] [phone] 01/19/2024 1:00 PM PERINATAL DIRECTOR Comprehensive Visit Department of Neurology in [address] [phone] Kory Alas M.B., Ch.B. [address] [place] [phone] documented as of this encounter Visit Diagnoses Diagnosis Other District Sales Coordinator Current Drug Therapy- Primary Secondary Malignant Neoplasm [...] mL/hr documented in this encounter Care Teams Wrong Address Clerk Relationship Specialty Start Date End Date Elsewhere, Pcp PCP - General Family Medicine 02/01/22 documented as of this encounter
--- NOTE | 2023-11-15 14:30 | CRLHL7_ITS ---
For Patients: As a result of the Century Cures Act, medical imaging exams and procedure reports are released immediately into your electronic medical record. You may view this report before your referring provider. If you have questions, please contact your health care provider. DXA BONE MINERAL DENSITY STUDY Current height (in): 64.0. Weight (lb): 127.0. Menopause age: 53. Ethnicity: White. 1. Have you had a previous hip or vertebral fracture? No. 2. Have you had any fractures during your adult life which did not result from significant trauma (e.g., auto accident)? No. 3. Did either of your parents have a hip fracture? No. 4. Do you smoke? No. 5. Have you ever taken Glucocorticoids? No. 6. Do you have rheumatoid arthritis? Yes. 7. Do you have secondary osteoporosis? No. 8. Do you drink 3 or more alcoholic drinks per day? No. 9. Are you being treated for osteoporosis? No. 10. Have you ever taken any of the following medications: Actonel, Evista, Fosamax, Miacalcin, Reclast, Boniva, Forteo, HRT (i.e. estrogen/hormone therapy), Protelos, Prolia, Vitamin D, Calcium, other ??? please specify. ANSWER: Yes, Vitamin D, Calcium. 11. Do you have any of the following medical conditions: Anorexia or bulimia, asthma or emphysema, end stage renal disease, hyperparathyroidism, any seizure disorders, cancer, inflammatory bowel diseases, hysterectomy, other ??? please specify. ANSWER: Yes, Cancer, Inflammatory bowel diseases, hysterectomy. 12. What was your maximum height (inches)? 64.5. 13. Do you perform weight bearing exercise regularly? Yes. 14. Do you regularly consume dairy products? Yes. 15. Do you drink caffeinated beverages? Yes. If female: 16. At what age did your period start? 13. 17. Are you premenopausal? No. 18. How many full term pregnancies have you had? 3. 19. Have you ever missed your period for more than 6 months in a row (not including or menopause)? No. TECHNIQUE: Bone mineral density study was performed using the [employer]. FINDINGS: The results of the study expressed as bone mineral density (BMD) are as follows: Lumbar spine L1 to L4: BMD: 0.769 g/cm2. T-score: -2.5. Z-score: 0.1. Neck Left: BMD: 0.526 g/cm2. T-score: -2.9 . Z-score:-0.7. Right: BMD: 0.539 g/cm2. T-score: -2.8 . Z-score: -0.6. Total Left: BMD: 0.670 g/cm2. T-score: -2.2 . Z-score: -0.3. Right: BMD: 0.718 g/cm2. T-score: -1.8 . Z-score: 0.1. IMPRESSION: Osteoporosis. Shanelle Curtis M.D. Diagnostic/Breast Radiologist [email or web address] Transcribed: 12:51 p.m. JR/Dictated by: Shanelle Curtis MD @ 11/17/2023 8:04:00 AM (Electronically Signed)
== END 2023-11-15 14:15 | disposition home or self-care (01) ==
LOC: RAD 14:16
PROVIDERS: PCP Family Medicine; Visit Provider Family Medicine
DX: M81.0 Age-related osteoporosis without current pathological fracture (principal)
CPT/HCPCS: 77080

== ENCOUNTER 2023-12-29 16:00 | Outpatient (RCR) | payer MEDICARE, OTHER, SELFPAY ==
--- NOTE | 2023-11-28 16:36 | OT.OPOE ---
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 PMH: Copied from medical record. Active Problems ( Updated 10/25/23 @ 15:45 by Stephanie Ly MD) Knee swelling (Acute) M25.469 - Effusion, unspecified knee (ICD-10) Bilateral sensorineural hearing loss (Chronic 04/20/23 ) Did see Dr. Fierro H90.3 - Sensorineural hearing loss, bilateral (ICD-10) Elevated AST (SGOT) (Acute) R74.01 - Elevation of levels of liver transaminase levels ( ICD-10) Tricuspid valve regurgitation (Chronic 2022) Echo 2022, mild to moderate tricuspid valve regurgitation, repeat echo in 2 years. 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 Follows [facility]/ [facility]ology Z85.828 - Personal history of other malignant neoplasm of skin (ICD-10) Dry eye syndrome (Chronic) & Salzmann's R. 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 Dr Banuelos 2021 L43.8 - Other lichen planus ( ICD-10) Osteoporosis (Chronic 10/26/20 ) 10/26/20 T-Scores: Lum -2.4, L Total Hip -2.2, L Fem Neck -2. 5. See scanned DXA report. M81.0 - Age-related osteoporosis without current pathological fracture (ICD-10) Lymphadenopathy of head and neck (Acute 12/2021) Node+ from SCC of scalp. Radiation Therapy completed through [facility]. On active surveillance. R59.1 - Generalized enlarged lymph nodes (ICD-10) Memory problem (Chronic ~2021) Short term memory R41.3 - Other amnesia (ICD-10) Skin cancer of scalp (Chronic 07/2021) squamous cell Spread to neck nodes. Radiation Therapy completed 04/29/22 through [facility] . On active surveillance. C44.40 - Unspecified malignant neoplasm of skin of scalp and neck (ICD-10) Medical History (Updated 10/24 @ 15:45 by Stephanie Ly MD) Hx of Clostridium difficile infection (12/2022) Z86.19 - Personal history of other infectious and parasitic diseases (ICD-10) Pulmonary nodules R91.8 - Other nonspecific abnormal finding of lung field (ICD-10) Thyroid nodule E04.1 - Nontoxic single thyroid nodule (ICD-10) Tricuspid valve regurgitation (2022) I07.1 - Rheumatic tricuspid insufficiency (ICD-10) Skin cancer of scalp (07/2021) C44.40 - Unspecified malignant neoplasm of skin of scalp and neck (ICD-10) Lymphadenopathy of head and neck (12/2021) R59.1 - Generalized enlarged lymph nodes (ICD-10) Memory problem (~03/2021) R41.3 - Other amnesia (ICD-10) Osteoporosis (10/26/20) M81.0 - Age-related osteoporosis without current pathological fracture (ICD-10) Nonalcoholic fatty liver disease (2019) K76.0 - Fatty (change of) liver, not elsewhere classified (ICD-10) Microscopic colitis (2018) K52.839 - Microscopic colitis, unspecified (ICD-10) Lichen planus pigmentosus ( 2018) L43.8 - Other lichen planus ( ICD-10) History of vitamin D deficiency Z86.39 - Personal history of other endocrine, nutritional and metabolic disease (ICD-10) Hereditary and idiopathic peripheral neuropathy G60.9 - Hereditary and idiopathic neuropathy, unspecified (ICD-10) Gastroesophageal reflux disease (2011) K21.9 - Gastro-esophageal reflux disease without esophagitis (ICD-10) Dyslipidemia E78.5 - Hyperlipidemia, unspecified (ICD-10) Dry eye syndrome H04.129 - Dry eye syndrome of unspecified lacrimal gland ( ICD-10) Aortic valve regurgitation ( 2004) I35.1 - Nonrheumatic aortic ( valve) insufficiency (ICD-10) Surgical History (Updated @ 08:23 by Stephanie Ly MD) History of SCC (squamous cell carcinoma) of skin (07/2021) Z85.828 - Personal history of other malignant neoplasm of skin (ICD-10) History of phacoemulsification of cataract of both eyes with intraocular lens implantation (07/2021) Z98.41 - Cataract extraction status, right eye (ICD-10) Z98.42 - Cataract extraction status, left eye (ICD-10) Z96.1 - Presence of intraocular lens (ICD-10) History of tonsillectomy (1967 ) Z90.89 - Acquired absence of other organs (ICD-10) History of knee surgery (2018) Z98.890 - Other specified postprocedural states (ICD-10) History of hysterectomy (2016) Z90.710 - Acquired absence of both cervix and uterus (ICD-10 ) History of dental surgery ( 2018) Z92.89 - Personal history of other medical treatment (ICD- 10) History of colonoscopy () Z98.890 - Other specified postprocedural states (ICD-10) Social History Hobbies Painting, reading Ortho Subjective Subjective Subjective Pt states they found a spot on the edge of her scalp on the bone that was suspicious for metastasis. Pt started immunotherapy every 3 weeks through the 01 of January. Pt has had some side effects from it: knee swelling ( oncology feel that the infusions have caused the inflammatory response in her knee), this needed to be drained, she has had tingling in her toes and fingers, and insomnia. Pt has been seen for CTS in the RUE a couple years ago. Pt states she sometimes has ain in her right hand, it has been better recently but when she saw the doctor her pain was pretty significant. Pt has a night splint that she has been wearing most nights, seems to help somewhat. Pt states the tingling in her hand is constant, mostly in her IF, MF and RF. Goniometric Comments Goniometric Comments Goniometric Comments 11/28/23 Pt has full AROM throughout BUE, pt does have slight increased paresthesia with all motions of the RUE. Hand Pinch/Sugarcane Planter Strength Hand Pinch/Sugarcane Planter Strength Hand Pinch/Sugarcane Planter Strength Left Hand,Right Hand Left Hand Sugarcane Planter Strength Position 1 in Elbow 34 Flexion (lbs) Lateral Pinch Strength (lbs) 12 Three Point Pinch (lbs) 11 Right Hand Sugarcane Planter Strength Position 1 in Elbow 30 Flexion (lbs) Lateral Pinch Strength (lbs) 10 Three Point Pinch (lbs) 10 OT Objective Data Hand Hand Dominance Right Skin/Wounds/Edema Comments 11/28/23 Pt notes occasional swelling in BUE hands when she eats a lot of salt of MSG, R> L Sensation Sensation Assessment Summary Comments 11/28/23 Monofilament detection of all digits of the LUE and digits 2-5 on the RUE responded to 2.81, RUE thumb responded to 3.t61 Upper Extremity Special Tests Median Nerve-Carpal Tunnel Wrist Phalen Test Positive Right Wrist Tinel Test Positive Right Durkan's Test Positive Right OT Problems Problems Problems Decreased Strength,Pain, Sensory Sensitivity,Gripping, Pinching Problems Comments Pt also has increased sxs with prolonged driving. Other Problems Writing,Opening Containers, Computer Patient Potential Good Assessment Assessment Assessment Pt is a very pleasant 78yo referred to OT to address RUE CTS. Pt offers complaints of constant tingling in her right hand, mostly IF, MF, and RF. Pt has increased sxs with prolonged driving, holding a book, and painting. Pt also has paresthesia in her hands and feet due to her immunotherapy infusions so it is difficult to determine if her sxs are truly due to CTS, however, provocative testing supports CTS dx in her RUE as the sxs increased in the RUE with testing and not in the LUE. In addition to paresthesia, pt also demonstrates weakness in her RUE which is her dominant hand . Pt will benefit from skilled OT intervention to address impairments / paresthesia and reduce median nerve compression in order to restore sensation and strength in her hands. Occupational Therapy Treatment Plan - OP Potential Rehabilitation Potential Good Set Goals Goals Set with Patient Yes Goals Goals 1. Pt will be independent and compliant with HEP in order to resume full, pain-free use of the involved UE. 3 weeks 2. Pt will demonstrate full, pain-free AROM of the involved UE in order to improve ability to grasp and hold. 6 weeks 3. 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 8 weeks. Treatment Plan Treatment Plan Evaluation,Edema Control, Iontophoresis,Manual Therapy, Ultrasound,Therapeutic Exercise,Therapeutic Activities,Self Care/Home Management,Education Expected Frequency 1-2x Week Expected Duration 8-10 Weeks Home Program Home Program Home Program Initiated Home Program Specifics Provided training and practice in HEP for wrist flexor stretch in pronation with elbow flexed, and extended and in supination with elbow extended and prayer stretch. Following demo, pt is able to complete exs with minimal cues . Pt was provided with written instructions for use at home as well. Certification Certification Statement I Certify That: Therapy Services Provided, Therapy Plan Established, Therapy Plan Reviewed Certification Information Clinic ID # [id number] Initial Certification Date 11/28/23 Recertification Due Date 02/26/24 Provider Signature Required Yes Provider Signature Shows Agreement With POC & Medical Necessity Physician NPI Number Write NPI# Here Physician Comment/Change Comment or Changes Physician Signature & Date Requested Please Sign/Date Here
== END 2024-01-01 08:55 | disposition home or self-care (01) ==
PROVIDERS: PCP Family Medicine; Visit Provider Family Medicine
DX: G56.01 Carpal tunnel syndrome, right upper limb (principal); M79.641 Pain in right hand; R53.1 Weakness; G89.29 Other chronic pain; Z51.89 Encounter for other specified aftercare
CPT/HCPCS: 97035; 97110; 97140; 97165; X5282

== ENCOUNTER 2024-01-05 13:15 | Outpatient (CLI) | payer MEDICARE, OTHER, SELFPAY ==
--- OUTSIDE RECORDS SUMMARY | 2024-01-05 13:18 | XMS_ITS | Clinical Summary ---
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 For routine questions regarding patient records, call [phone] during business hours, M-F 8:00 AM - 5:00 PM Central Time. Record requests for emergency care only can be directed to [phone] at any time.[facility] Allergies Active Allergy Reactions Criticality Noted Date Comments Penicillins Other (see comments) 01/19/2022 Family History of allergy but has never taken herself. Patient tolerated Duricef Pollen Extracts Itching 01/19/2022 Sulfa (Sulfonamide Antibiotics) Other (see comments) 01/19/2022 Medications * This document contains information received from the source organization and may not represent a complete record from that organization. rosuvastatin (CRESTOR) 10 mg tablet Take 10 mg by mouth at bedtime. Active ubiquinone (COENZYME Q10) 100 mg tablet Take 100 mg by mouth daily. 2 Active UNABLE TO FIND Take 1 each by mouth daily. Med Name: Collagen powder, 1 scoop every morning with cereal Active ketoconazole (NIZORAL) 2 % creamIndicatio ns:Dermatitis Seborrheic Apply 1 Application topically 2 (two) times a day as needed for rash or irritation. Apply to red, itchy areas on the central face and eyebrows as well as over the supragluteal cleft 60 g 11 3 Active ketoconazole (NIZORAL) 2 % shampoo Apply 1 Application topically 3 (three) times a week. Apply to damp skin, lather, leave on 5 minutes, and rinse 120 mL 11 4 Active hydrocortisone 2.5 % ointmentIndica tions:Dermatit is Mix with the ketoconazole and apply twice daily for up to 2 weeks as a time for flares of rash involving the buttocks, under the breast, or on the face. 30 g 11 4 Active Additional Information Patient not taking.Reported on 12/29/2023 methylcellulos e, laxative, (CITRUCEL) 500 mg tablet Take by mouth daily. Heaping tablespoon in water once daily Active cholecalcifero l (Vitamin D3) 50 mcg (2,000 Unit) tablet Take 1 tablet by mouth daily. Active levothyroxine (Synthroid) 50 mcg tablet Take 1 tablet (50 mcg total) by mouth daily. 90 tablet 3 4 08/11/19 25 Active multivitamin tablet Take 1 tablet by mouth daily. Currently has One-A-Day Men's 50 Plus. Active CALCIUM ORAL Take 1 tablet by mouth daily. Active MAGNESIUM ORAL Take 1 tablet by mouth daily. Active erythromycin (Romycin) 5 mg/gram (0.5 %) ophthalmic ointment Apply 1 cm to left eye at bedtime. 3.5 g 1 4 Active tacrolimus (Protopic) 0.1 % ointment Apply 1 Application topically 2 (two) times a day. Apply approximately 2-4 grams to affected areas. 100 g 11 4 Active Additional Information Patient taking differently:1 Application topicalAs needed, Apply approximately 2-4 grams to affected areas., Reported on 12/29/2023 alendronate (Fosamax) 70 mg tablet Take 1 tablet by mouth every 7 (seven) days. 4 Active cholecalcifero l (Vitamin D3) 50 mcg (2,000 Unit) capsule Take 1 capsule by mouth daily. 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/28/2023 Other Sales Service Representative Current Drug Therapy 07/28/2023 Malignant Neoplasm Of Neck Squamous Cell 022 Squamous Cell Carcinoma Of Skin Of Scalp And Nec k 01/26/2022 Overview (01/26/2022): Added automatically from request for surgery [id number] Amnesia 01/26/2022 Disorder Of The Skin And Subcutaneous Tissue Uns pecified 01/26/2022 Dry Eye Syndrome Right 01/26/2022 Dyslipidemia 01/26/2022 Fatigue 01/26/2022 Fatty Liver 01/26/2022 Gastroesophageal Reflux Disease 01/26/2022 Generalized Enlarged Lymph Nodes 01/26/2022 Hereditary And Idiopathic Neuropathy Unspecified 01/26/2022 Hyperlipidemia 01/26/2022 Microscopic Colitis Unspecified 01/26/2022 Nonrheumatic Aortic Valve Insufficiency 01/27/20 22 Osteoporosis 10/26/2020 Encounters * This document contains information received from the source organization and may not represent a complete record from that organization. Date Type Department Care Team Description 01/02/2024 1:00 PM CDT Office Visit Department of Oncology in [address] [phone] Mc Mcknight M.D., Ph.D. Other Assisted Current Drug Therapy; Secondary Malignant Neoplasm Bone (HCC); Squamous Cell Carcinoma Of Skin Of Scalp And Neck 01/02/2024 6:29 AM CDT - 01/02/2024 11:59 PM CDT Hospital [place] [address] [place] [address] cM Mcknight M.D., Ph.D. Other Sales Service Representative Current Drug Therapy; Secondary Malignant Neoplasm Bone (HCC); Squamous Cell Carcinoma Of Skin Of Scalp And Neck Discharge Disposition: Home or Self Care 01/01/2024 4:25 PM CDT - 01/01/2024 11:59 PM CDT [facility] [place] [place] [address] [place] [address] Tammie Hooks M.D., Ph.D. Squamous Cell Carcinoma Of Skin Of Scalp And Neck Discharge Disposition: Home or Self Care 01/01/2024 3:30 PM CDT Clinical Support - [facility] Division of Rheumatology in [address] [address] Gertrudis Marks M.D., Ph.D. Tahira Lujan Secondary Malignant Neoplasm Bone (HCC) 12/29/2023 1:15 PM CDT Clinical Communication Virtual Review in [place], [place] [address] [place] [address] 12/12/2023 3:00 PM CDT Infusion Department of Oncology in [address] [address] Remigio Frey M.D., Ph.D. Squamous Cell Carcinoma Of Skin Of Scalp And Neck (Primary Dx); Other Sales Service Representative Current Drug Therapy; Secondary Malignant Neoplasm Bone (HCC); Malignant Neoplasm Of Neck Squamous Cell 12/12/2023 1:00 PM CDT Office Visit Department of Oncology in [address] [phone] Mc Mcknight M.D., Ph.D. Other Sales Service Representative Current Drug Therapy; Secondary Malignant Neoplasm Bone (HCC); Squamous Cell Carcinoma Of Skin Of Scalp And Neck 12/12/2023 10:13 AM CDT - 12/12/2023 11:59 PM CDT Hospital Encounter Department of Radiology, [facility], in [address] [address] Antolin Mclaughlin M.D. Arthritis Inflammatory (HCC) Discharge Disposition: Home or Self Care 12/12/2023 Orders Only Division of Rheumatology in [address] [address] Gertrudis Marks M.D., Ph.D. Secondary Malignant Neoplasm Bone (HCC) (Primary Dx) 11/24/2023 Clinical Communication Department of Oncology in [address] [address] Mc Mcknight M.D., Ph.D. 11/22/2023 10:25 AM CDT Ancillary Procedure Department of Rheumatology 11/22/2023 10:00 AM CDT Procedure visit Division of Rheumatology in [address] [address] Tammie Qiu APRN C.N.Remigio Landon M.D. Arthritis Inflammatory (HCC) 11/21/2023 2:15 PM CDT Infusion Department of Oncology in [place], [place] [address] [place] [phone] Remigio Frey M.D., Ph.D. Squamous Cell Carcinoma Of Skin Of Scalp And Neck (Primary Dx); Other Sales Service Representative Current Drug Therapy; Secondary Malignant Neoplasm Bone (HCC); Malignant Neoplasm Of Neck Squamous Cell 11/21/2023 1:00 PM CDT Office Visit Department of Oncology in [address] [address] Mc Mcknight M.D., Ph.D. Other Sales Service Representative Current Drug Therapy; Secondary Malignant Neoplasm Bone (HCC); Squamous Cell Carcinoma Of Skin Of Scalp And Neck 11/21/2023 7:45 AM CDT Comprehensive Visit Division of Rheumatology in [address] [address] Antolin Mclaughlin M.D. Baker, Jessica N, APRN C.N.P. Arthritis Inflammatory (HCC) (Primary Dx) 11/17/2023 8:00 AM CDT Internal E-Consult Division of Rheumatology in [place], [place] [address] [place] [phone] Monica Dawson M.B.BNeyS. Effusion Knee Right 11/17/2023 Orders Only Department of Physical Medicine and Rehabilitation in [address] [address] Antolin Mclaughlin M.D. Arthritis Inflammatory (HCC) (Primary Dx) 11/15/2023 Orders Only Department of Physical Medicine and Rehabilitation in [address] [address] Antolin Mcalughlin M.D. Effusion Knee Right (Primary Dx) 11/14/2023 2:30 PM CDT Procedure visit Department of Physical Medicine and Rehabilitation in [place], [place] [address] [place] [phone] Divine Ayala M.D. Effusion Knee Right 11/13/2023 11:05 AM CDT Ancillary Procedure Department of Radiology in [place], [place] [address] [place] [phone] Antolin Mclaughlin M.D. Effusion Knee Right 11/13/2023 10:00 AM CDT Comprehensive Visit Department of Physical Medicine and Rehabilitation in [place], [place] [address] [place] [phone] Antolin Mclaughlin M.D. Effusion Knee Right (Primary Dx); Malignant Neoplasm Of Neck Squamous Cell; Secondary Malignant Neoplasm Bone (HCC); Other Sales Service Representative Current Drug Therapy; Squamous Cell Carcinoma Of Skin Of Scalp And Neck 11/10/2023 8:00 AM CDT Office Visit Department of Dermatology in [place], [place] [address] [place] [phone] Emily Bell M.D. Nevi Multiple (Primary Dx); Squamous Cell Carcinoma Of Skin Of Scalp And Neck; Secondary Malignant Neoplasm Bone (HCC); Other Assisted Current Drug Therapy; Dermatoheliosis; Keratosis Seborrheic; Psoriasis; Dermatitis Discharge Disposition: Home or Self Care 11/01/2023 2:45 PM CDT Infusion Department of Oncology in [place], [place] [address] [place] [phone] Remigio Frey M.D., Ph.D. Squamous Cell Carcinoma Of Skin Of Scalp And Neck (Primary Dx); Other Assisted Current Drug Therapy; Secondary Malignant Neoplasm Bone (HCC); Malignant Neoplasm Of Neck Squamous Cell 11/01/2023 1:40 PM CDT Office Visit Department of Oncology in [place], [place] [address] [place] [phone] Blanche Monzon P.A.Wilbert., M.S. Malignant Neoplasm Of Neck Squamous Cell (Primary Dx); Squamous Cell Carcinoma Of Skin Of Scalp And Neck; Secondary Malignant Neoplasm Bone (HCC); Other Assisted Current Drug Therapy; Pain In Joint; Effusion Joint 11/01/2023 Clinical Communication Department of Oncology in [address] [phone] Blanche Monzon P.A.-C., M.S. 10/30/2023 11:00 AM CDT Clinical Communication Virtual Review in [place], [place] [address] [place] [address] 10/11/2023 3:30 PM CDT - 10/12/2023 10:05 AM CDT Hospital Encounter Department of Radiation Oncology in [address] [phone] Tammie Hooks M.D., Ph.D. Squamous Cell Carcinoma Of Skin Of Scalp And Neck (Primary Dx) 10/11/2023 2:00 PM CDT Infusion Department of Oncology in [address] [address] Blanche Monzon P.A.-Nixon., M.S. Malignant Neoplasm Of Neck Squamous Cell (Primary Dx); Other Assisted Current Drug Therapy; Secondary Malignant Neoplasm Bone (HCC); Squamous Cell Carcinoma Of Skin Of Scalp And Neck 10/11/2023 1:00 PM CDT Office Visit Department of Oncology in [address] [address] Remigio Frey M.D., Ph.D. Squamous Cell Carcinoma Of Skin Of Scalp And Neck (Primary Dx); Other Sales Service Representative Current Drug Therapy; Secondary Malignant Neoplasm Bone (HCC) 10/11/2023 7:41 AM CDT - 10/11/2023 3:29 PM CDT Hospital Encounter Department of Radiology, [facility] in [address] [address] Blanche Monzon P.A.-Nixon., M.S. Squamous Cell Carcinoma Of Skin Of Scalp And Neck; Secondary Malignant Neoplasm Bone (HCC); Other Sales Service Representative Current Drug Therapy Discharge Disposition: Home or Self Care 10/11/2023 6:45 AM CDT - 10/11/2023 7:40 AM CDT Hospital Encounter Department of Radiology, [facility], in [place], [place] [address] [place] [address] Blanche Monzon P.A.-C., M.S. Squamous Cell Carcinoma Of Skin Of Scalp And Neck; Secondary Malignant Neoplasm Bone (HCC); Other Assisted Current Drug Therapy Discharge Disposition: Home or Self Care 10/09/2023 10:45 AM CDT Clinical Communication Virtual Review in [place], [place] [address] [place] [address] Blood Pressure from Last 3 Months Family History Medical [...] often do you attend chur ch or latter-day services? Never 01/24/2022 Do you belong to any clubs o r organizations such as scientology groups, unions, fraternal or athletic groups, or [...] Bachelor's degree (e.g., BA, AB, BS) 01/24/2022 Comments No Sex and Gender Information Value Date Recorded Sex Assigned at Female 01/24/2022 7:37 PM RESIDENTIAL CONSTRUCTION INSTRUCTOR Legal Sex Female 10:28 AM CDT Gender Identity Female 01/24/2022 7:37 PM RESIDENTIAL CONSTRUCTION INSTRUCTOR Sexual Orientation Straight 01/24/2022 7: 37 PM RESIDENTIAL CONSTRUCTION INSTRUCTOR Last Filed Vital Signs Vital Sign Reading Time Taken Comments Blood Pressure 117/71 01/02/2024 1:08 PM CDT Pulse 66 01/02/2024 1:08 PM CDT Temperature 36.4 ??C (97.5 ??F) 01/02/2024 1:08 PM CD T Respiratory Rate 16 12/12/2023 12:31 PM CDT Oxygen Saturation 97% 01/02/2024 1:08 PM CDT Inhaled Oxygen Concentration - - Weight 58.7 kg (129 lb 6.6 oz) 01/02/2024 1:08 P M CDT Height 160.9 cm (5' 3.35) 12/12/2023 12:31 PM C DT Body Mass Index 22.67 12/12/2023 12:31 PM CDT Plan of Treatment Upcoming Encounters Date Type Department Care Team (Late st Contact Info) Description 01/09/2024 10:15 AM RESIDENTIAL CONSTRUCTION INSTRUCTOR Clinical Communication Virtual Review in [place], [place] [address] [place] [address] 01/11/2024 2:00 PM RESIDENTIAL CONSTRUCTION INSTRUCTOR Appointment Department of Radiation Oncology in [place], [place] [address] [place] [address] Tammie Hooks M.D., Ph.D. [address] [place] [phone] 01/17/2024 9:00 AM RESIDENTIAL CONSTRUCTION INSTRUCTOR Clinical Communication Virtual Review in [place], [place] [address] [place] [address] 01/19/2024 1:00 PM RESIDENTIAL CONSTRUCTION INSTRUCTOR Comprehensive Visit Department of Neurology in [place], [place] [address] [place] [phone] Kory Alas M.B., Ch.B. [address] [place] [phone] 02/26/2024 9:30 AM RESIDENTIAL CONSTRUCTION INSTRUCTOR Lab Department of Laboratory Medicine and Pathology, [facility] in [place], [place] [address] [place] [phone] Mc Mcknight M.D., Ph.D. [address] [place] [phone] 02/26/2024 11:30 AM RESIDENTIAL CONSTRUCTION INSTRUCTOR Appointment Department of Radiology, [facility] in [place], [place] [address] [place] [phone] Mc Mcknight M.D., Ph.D. [address] [place] [phone] 02/26/2024 3:00 PM RESIDENTIAL CONSTRUCTION INSTRUCTOR Appointment Department of Radiology, [facility] in [place], [place] [address] [place] [phone] Mc Mcknight M.D., Ph.D. [address] [place] [phone] 02/27/2024 1:40 PM RESIDENTIAL CONSTRUCTION INSTRUCTOR Office Visit Department of Oncology in [place], [place] [address] [place] [phone] Mc Mcknight M.D., Ph.D. [address] [place] [address] Health Maintenance Due Date Last Done Comments Hepatitis C Screening 1945 Depression Screening (Annual PHQ-2) 03/06/2023 COVID-19 Vaccine ( season) 2023 02/21/2022, 06/18/2021, 12/28/2020, Additional history exists Influenza Vaccine (#1) 2023 , 12/22/2021, 12/28/2020, Additional history exists Thyroid Stimulating Hormone (TSH) test for thyroid function 12/31/2024 01/01/2024, 12/12/2023, 11/21/2023, Additional history exists DTaP,Tdap,and Td Vaccines (3 - Td or Tdap) 11/23/2032 11/23/2022, 12/21/2012, 03/05/1990 Pneumococcal vaccine (65+ years) Completed 07/16/2014, 05/18/2011 RSV vaccine - (32-36 weeks) or 60+ years Completed 04/17/2023 Zoster Vaccines Completed 04/17/2023, 11/05, 02/04/2012 Fall Risk Screen (Annual) Completed 07/27/2023 HPV Vaccines Aged Out No longer eligi ble based on patient's age to complete this topic IPV Vaccines Aged Out No longer eligi ble based on patient's age to complete this topic Medical Devices Implanted Type Area Substation Operator Helper Generation Device Identifier Shelf Expiration Date Model / Serial / Lot Hardware E.G. Pins/Screws/Ro ds Hardware e.g. pins/screws/r ods Mouth Procedures Procedure Name Priority Date/Time Associated Diagnosis Comments PET CT SKULL TO THIGH RAD - Routine (most inpatients and all outpatients) 01/02/2024 8:20 AM CDT Other Sales Service Representative Current Drug Therapy 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 MR BRAIN WITHOUT AND WITH IV CONTRAST RAD - Routine (most inpatients and all outpatients) 01/01/2024 6:15 PM CDT Squamous Cell Carcinoma Of Skin Of Scalp And Neck THYROID FUNCTION CASCADE, S Routine 01/01/2024 4:22 PM CDT Other Sales Service Representative Current Drug Therapy 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 BILIRUBIN DIRECT, S/P Routine 01/01/2024 4:22 PM CDT Other Sales Service Representative Current Drug Therapy 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 COMPREHENSIVE METABOLIC PANEL, S/P Routine 01/01/2024 4:22 PM CDT Other Assisted Current Drug Therapy 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 CBC WITH DIFFERENTIAL, B Routine 01/01/2024 4:22 PM CDT Other Assisted Current Drug Therapy 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 MISC RESEARCH ORDER, B Routine 01/01/2024 4:21 PM CDT Secondary Malignant Neoplasm Bone (HCC) THYROID FUNCTION CASCADE, S Routine 12/12/2023 10:40 AM CDT Other Sales Service Representative Current Drug Therapy 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 BILIRUBIN DIRECT, S/P Routine 12/12/2023 10:40 AM CDT Other Sales Service Representative Current Drug Therapy Secondary Malignant Neoplasm Bone (HCC) Squamous Cell Carcinoma Of Skin Of Scalp And Neck COMPREHENSIVE METABOLIC PANEL, S/P Routine 12/12/2023 10:40 AM CDT Other Sales Service Representative Current Drug Therapy Secondary Malignant Neoplasm Bone (HCC) Squamous Cell Carcinoma Of Skin Of Scalp And Neck CBC WITH DIFFERENTIAL, B Routine 12/12/2023 10:40 AM CDT Other Assisted Current Drug Therapy Secondary Malignant Neoplasm Bone (HCC) Squamous Cell Carcinoma Of Skin Of Scalp And Neck DX ANKLE BILATERAL 3+ VIEWS RAD - Routine (most inpatients and all outpatients) 12/12/2023 10:21 AM CDT Arthritis Inflammatory (HCC) RHEUMATOLOGY IMAGE EXAM Routine 11/22/2023 10:25 AM CDT MS ARTHCS ASP/INJ MJR JT W US Routine 11/22/2023 10:00 AM CDT Arthritis Inflammatory (HCC) URIC ACID, S/P Routine 11/21/2023 9:59 AM CDT Arthritis Inflammatory (HCC) CYCLIC CITRULLINATED PEPTIDE ABS, IGG, S Routine 11/21/2023 9:59 AM CDT Arthritis Inflammatory (HCC) RHEUMATOID FACTOR, S/P Routine 11/21/2023 9:59 AM CDT Arthritis Inflammatory (HCC) SEDIMENTATION RATE, B Routine 11/21/2023 9:59 AM CDT Arthritis Inflammatory (HCC) C-REACTIVE PROTEIN (CRP), S/P Routine 11/21/2023 9:59 AM CDT Arthritis Inflammatory (HCC) THYROID FUNCTION CASCADE, S Routine 11/21/2023 9:59 AM CDT Other Sales Service Representative Current Drug Therapy Secondary Malignant Neoplasm Bone (HCC) Squamous Cell Carcinoma Of Skin Of Scalp And Neck BILIRUBIN DIRECT, S/P Routine 11/21/2023 9:59 AM CDT Other Sales Service Representative Current Drug Therapy Secondary Malignant Neoplasm Bone (HCC) Squamous Cell Carcinoma Of Skin Of Scalp And Neck COMPREHENSIVE METABOLIC PANEL, S/P Routine 11/21/2023 9:59 AM CDT Other Sales Service Representative Current Drug Therapy Secondary Malignant Neoplasm Bone (HCC) Squamous Cell Carcinoma Of Skin Of Scalp And Neck CBC WITH DIFFERENTIAL, B Routine 11/21/2023 9:59 AM CDT Other Sales Service Representative Current Drug Therapy Secondary Malignant Neoplasm Bone (HCC) Squamous Cell Carcinoma Of Skin Of Scalp And Neck CRYSTAL ID, BF Routine 11/14/2023 2:50 PM CDT CELL COUNT AND DIFFERENTIAL, BF Routine 11/14/2023 2:50 PM CDT Effusion Knee Right MS ARTHCS ASP/INJ MJR JT W US Routine [...] S Routine 11/01/2023 11:39 AM CDT Other Sales Service Representative Current Drug Therapy Secondary Malignant Neoplasm Bone (HCC) Squamous Cell Carcinoma Of Skin Of Scalp And Neck BILIRUBIN DIRECT, S/P Routine 11/01/2023 11:39 AM CDT Other Sales Service Representative Current Drug Therapy Secondary Malignant Neoplasm Bone (HCC) Squamous Cell Carcinoma Of Skin Of Scalp And Neck COMPREHENSIVE METABOLIC PANEL, S/P Routine 11/01/2023 11:39 AM CDT Other Sales Service Representative Current Drug Therapy Secondary Malignant Neoplasm Bone (HCC) Squamous Cell Carcinoma Of Skin Of Scalp And Neck CBC WITH DIFFERENTIAL, B Routine 11/01/2023 11:38 AM CDT Other Assisted Current Drug Therapy Secondary Malignant Neoplasm Bone [...] Neck Secondary Malignant Neoplasm Bone (HCC) Other Sales Service Representative Current Drug Therapy CT ABDOMEN PELVIS WITH IV CONTRAST RAD - Routine (most inpatients and all outpatients) 10/11/2023 7:40 AM CDT Squamous Cell Carcinoma Of Skin Of Scalp And Neck Secondary Malignant Neoplasm Bone (HCC) Other Assisted Current Drug Therapy CT CHEST WITH IV CONTRAST RAD - Routine (most inpatients and all outpatients) 10/11/2023 7:40 AM CDT Squamous Cell Carcinoma Of Skin Of Scalp And Neck Secondary Malignant Neoplasm Bone (HCC) Other Sales Service Representative Current Drug Therapy CT NECK SOFT TISSUE WITH IV CONTRAST RAD - Routine (most inpatients and all outpatients) 10/11/2023 7:40 AM CDT Squamous Cell Carcinoma Of Skin Of Scalp And Neck Secondary Malignant Neoplasm Bone (HCC) Other Sales Service Representative Current Drug Therapy THYROID FUNCTION CASCADE, S Routine 10/11/2023 6:41 AM CDT Other Sales Service Representative Current Drug Therapy Secondary Malignant Neoplasm Bone (HCC) Squamous Cell Carcinoma Of Skin Of Scalp And Neck BILIRUBIN DIRECT, S/P Routine 10/11/2023 6:41 AM CDT Other Sales Service Representative Current Drug Therapy Secondary Malignant Neoplasm Bone (HCC) Squamous Cell Carcinoma Of Skin Of Scalp And Neck COMPREHENSIVE METABOLIC PANEL, S/P Routine 10/11/2023 6:41 AM CDT Other Sales Service Representative Current Drug Therapy Secondary Malignant Neoplasm Bone (HCC) Squamous Cell Carcinoma Of Skin Of Scalp And Neck CBC WITH DIFFERENTIAL, B Routine 10/11/2023 6:41 AM CDT Other Assisted Current Drug Therapy Secondary Malignant Neoplasm Bone (HCC) Squamous Cell Carcinoma Of Skin Of Scalp And Neck from Last 3 Months Results * PET CT Skull to Thigh FDG (01/02/2024 8:20 AM CDT) Anatomical Region Laterality Modality Body, Nuclear Medicine PET R ST LOS, PET ARZ LOS, Nuclear Medicine PET FLA LOS, Nuclear Medicine N/A Positron Emission Tomography (PET), Positron Emission Tomography (PET) Impressions 01/02/2024 10:05 AM CDT 1. ??No residual or recurrent FDG avid disease in the scalp or neck. Since the prior PET/CT, the scalp lesion and cervical lymph node metastases have been resected/treated. 2. ??Right parieto-occipital lytic lesion is mildly FDG avid (screen captures), suspicious for metastasis. No other convincing evidence of FDG avid metastatic disease. 3. ??Mildly FDG avid cutaneous soft tissue thickening in the posterior right thigh, favored inflammatory although direct visualization is recommended. Narrative 01/02/2024 10:05 AM CDT EXAM: ??PET CT SKULL TO THIGH FDG Serum glucose at time of F-18 FDG injection was 100 mg/dL. Patient followed standard dietary/fasting requirements for this exam. RADIOPHARMACEUTICAL/MEDS: Route: intravenous fludeoxyglucose F 18 injection [facility]CI (FDG F-18),9.94 millicurie TECHNIQUE: ??F-18 FDG PET/CT scan was performed from the vertex through the upper thighs with low dose, non-contrast, free-breathing CT images for attenuation correction and anatomic localization (AC/AL), with imaging beginning at approximately 60 minutes after radiotracer injection. ? COMPARISON: ??FDG PET/CT 01/25/2022. INDICATION: ??Squamous cell carcinoma. Primary lesion at the vertex of the scalp diagnosed 07/2021 treated with wide local excision and cervical lymph node dissection and chemoradiation. Lytic right parieto-occipital calvarial lesion with nondiagnostic biopsy. Subsequent treatment strategy. The patient reports having received a vaccination in a location other than an arm within the last two months. FINDINGS: ??The previously seen FDG avid primary tumor at the vertex of the scalp has been resected since the prior PET/CT. Minimal activity in the scalp at the vertex seen only on advanced reconstruction images, likely inflammatory. Mild FDG activity in the lytic right parieto-occipital lesion, better appreciated on advanced reconstruction PET images (see screen captures). The previously avid bilateral cervical lymph nodes have been resected. No additional areas of avidity concerning for local recurrence or distant metastasis. Inflammatory type uptake in the distal esophagus is similar to prior. Mild uptake in the skin of the right posterior thigh (13/325) is likely inflammatory. Incidental findings on the low-dose unenhanced CT: Coronary artery calcifications. Tiny fat-containing umbilical hernia. Small esophageal hiatal hernia. Hepatic and renal cysts. Hysterectomy. Colonic diverticulosis. Procedure Note Lele Horton M.D. - 01/02/2024 EXAM: PET CT SKULL TO THIGH FDG Serum glucose at time of F-18 FDG injection was 100 mg/dL. Patientfollowed standard dietary/fasting requirements for this exam. RADIOPHARMACEUTICAL/MEDS: Route: intravenous fludeoxyglucose F 18 injection FCI (FDG F-18),9.94 millicurie TECHNIQUE: F-18 FDG PET/CT scan was performed from the vertex through theupper thighs with low dose, non-contrast, free-breathing CT images forattenuation correction and anatomic localization (AC/AL), with imagingbeginning at approximately 60 minutes after radiotracer injection. COMPARISON: FDG PET/CT 01/25/2022. INDICATION: Squamous cell carcinoma. Primary lesion at the vertex of thescalp diagnosed 07/2021 treated with wide local excision and cervical lymphnode dissection and chemoradiation. Lytic right parieto-occipitalcalvarial lesion with nondiagnostic biopsy. Subsequent treatment strategy. The patient reports having received a vaccination in a location other thanan arm within the last two months. FINDINGS: The previously seen FDG avid primary tumor at the vertex of thescalp has been resected since the prior PET/CT. Minimal activity in thescalp at the vertex seen only on advanced reconstruction images, likelyinflammatory. Mild FDG activity in the lytic right parieto-occipital lesion, betterappreciated on advanced reconstruction PET images (see screen captures). The previously avid bilateral cervical lymph nodes have been resected. Noadditional areas of avidity concerning for local recurrence or distantmetastasis. Inflammatory type uptake in the distal esophagus is similar toprior. Mild uptake in the skin of the right posterior thigh (13/325) is likely inflammatory. Incidental findings on the low-dose unenhanced CT: Coronary arterycalcifications. Tiny fat-containing umbilical hernia. Small esophagealhiatal hernia. Hepatic and renal cysts. Hysterectomy. Colonicdiverticulosis. IMPRESSION: 1. No residual or recurrent FDG avid disease in the scalp or neck. Sincethe prior PET/CT, the scalp lesion and cervical lymph node metastases havebeen resected/treated. 2. Right parieto-occipital lytic lesion is mildly FDG avid (screencaptures), suspicious for metastasis. No other convincing evidence of FDGavid metastatic disease. 3. Mildly FDG avid cutaneous soft tissue thickening in the posteriorright thigh, favored inflammatory although direct visualization isrecommended. Mc Mcknight M.D., Ph.D. IMG [place] PROCEDURE S Final Result * MR Brain without and with IV Contrast (01/01/2024 6:15 PM CDT) Only the most recent of2 resultswithin the time period is included. Anatomical Region Laterality Modality Head, Brain, Neuroradiology RST LOS, Neuroradiology ARZ LOS, Neuroradiology FLA LOS N/A Magnetic Resonance Impressions 01/02/2024 9:06 AM CDT 1. Enhancing lesions in the right parietal and high right calvarium has demonstrated slow progressive growth since 2022, and are suspicious for metastases. 2. Tiny enhancing focus in the midline scalp is unchanged. Previous noted additional focus of enhancement in the high left parietal scalp has resolved since the prior exam. Narrative 01/02/2024 9:06 AM CDT EXAM: MR BRAIN WITHOUT AND WITH IV CONTRAST COMPARISON: Multiple prior brain MRIs, most recent 10/11/2023 FINDINGS: Again seen is an intensely enhancing lesion in the right paramedian parietal calvarium (series 16, image 126) which was previously biopsied (07/20/2023) and was found to be indeterminate. This lesion has, however, demonstrated slow progressive growth since 01/11/2023. Additional indeterminate smaller enhancing lesion in the high right calvarium is also demonstrated slow progressive growth since 2022 (series 16, image 174). Tiny enhancing dermal focus in the high midline posterior scalp (series 16, image 77) is unchanged since the prior exam, while the previously noted small enhancing focus in the high left parietal scalp (series 16, image 169) has essentially resolved. No intracranial metastases. No mass effect, hydrocephalus, or acute infarct. Tiny focus of hemosiderin in the right frontal lobe. 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 Bilateral cataract surgery. Remainder negative. Procedure Note Philip Maya M.D. - 01/02/2024 EXAM: MR BRAIN WITHOUT AND WITH IV CONTRAST COMPARISON: Multiple prior brain MRIs, most recent 10/11/2023 FINDINGS: Again seen is an intensely enhancing lesion in the rightparamedian parietal calvarium (series 16, image 126) which was previouslybiopsied (07/20/2023) and was found to be indeterminate. This lesion has,however, demonstrated slow progressive growth since 01/11/2023. Additional indeterminate smaller enhancing lesion in the high rightcalvarium is also demonstrated slow progressive growth since 2022 (ynripc17, image 174). Tiny enhancing dermal focus in the high midline posterior scalp (snponp19, image 77) is unchanged since the prior exam, while the previouslynoted small enhancing focus in the high left parietal scalp (series 16,image 169) has essentially resolved. No intracranial metastases. No mass effect, hydrocephalus, or acuteinfarct. Tiny focus of hemosiderin in the right frontal lobe. Mild tomoderate leukoaraiosis. Bilateral cataract surgery. Remainder negative. IMPRESSION: 1. Enhancing lesions in the right parietal and high right calvarium hasdemonstrated slow progressive growth since 2022, and are suspicious formetastases. 2. Tiny enhancing focus in the midline scalp is unchanged. Previous notedadditional focus of enhancement in the high left parietal scalp hasresolved since the prior exam. us Tammie Hooks M.D., Ph.D. IMG MRI PROCEDURES Fi nal Result * Thyroid Function Irving (01/01/2024 4:22 PM CDT) Only the most recent of5 resultswithin the time period is included. TSH, Sensitive 2.3 0.3 - 4.2 mIU/L 01/01/2024 5:24 PM CDT DTL Blood (Blood, Venous) 01/01/2024 4:22 PM CDT 01/01/2024 4:59 PM CDT Blanche Monzon P.A.-C., M.S. LAB BLOOD ADD-ON Final Result [facility] [address] [place] [address], [facility] DTL [facility] [address] [place] [address] * (ABNORMAL) CBC with Differential, Blood (01/01/2024 4:22 PM CDT) Only the most recent of5 resultswithin the time period is included. Hemoglobin 12.9 11.6 - 15.0 g/dL 01/01/2024 4:43 PM CDT DTL Hematocrit 38.7 35.5 - 44.9 % 01/01/2024 4:43 PM CDT DTL Erythrocytes 4.28 3.92 - 5.13 x10(12)/L 01/01/2024 4:43 PM CDT DTL MCV 90.4 78.2 - 97.9 fL 01/01/2024 4:43 PM CDT DTL RBC Distrib Width 13.0 12.2 - 16.1 % 01/01/2024 4:43 PM CDT DTL Platelet Count 234 157 - 371 x10(9)/L 01/01/2024 4:43 PM CDT DTL Leukocytes 5.3 3.4 - 9.6 x10(9)/L 01/01/2024 4:43 PM CDT DTL Neutrophils 4.13 1.56 - 6.45 x10(9)/L 01/01/2024 4:43 PM CDT DHPM Lymphocytes 0.72(L) 0.95 - 3.07 x10(9)/L 01/01/2024 4:43 PM CDT DTL Monocytes 0.38 0.26 - 0.81 x10(9)/L 01/01/2024 4:43 PM CDT DTL Eosinophils 0.07 0.03 - 0.48 x10(9)/L 01/01/2024 4:43 PM CDT DTL Basophils 0.03 0.01 - 0.08 x10(9)/L 01/01/2024 4:43 PM CDT DTL Blood (Blood, Venous) 01/01/2024 4:22 PM CDT 01/01/2024 4:35 PM CDT Blanche Monzon P.A.-C. M.S. LAB BLOOD ADD-ON Final Result Performing Organization Address City/[facility]/ZIP Co de Phone Number [facility] [address] [place] [address], [facility] [address] [place], [place] [id number] [place] [address] [address] [place] [address] * Bilirubin, Direct (01/01/2024 4:22 PM CDT) Only the most recent of5 resultswithin the time period is included. Bilirubin, Direct, S <0.2 0.0 - 0.3 mg/dL 01/01/2024 5:24 PM CDT DTL Blood (Blood, Venous) 01/01/2024 4:22 PM CDT 01/01/2024 4:59 PM CDT Blanche Monzon P.A.-C., M.S. LAB BLOOD ADD-ON Final Result Performing Organization Address City/[facility]/ZIP Co de Phone Number [facility] [address] [place] [address], [facility] [address] [place] [address] * Comprehensive Metabolic Panel (01/01/2024 4:22 PM CDT) Only the most recent of5 resultswithin the time period is included. Potassium, S 4.3 3.6 - 5.2 mmol/L 01/01/2024 5:24 PM CDT DTL Sodium, S 139 135 - 145 mmol/L 01/01/2024 5:24 PM CDT DTL Chloride, S 103 98 - 107 mmol/L 01/01/2024 5:24 PM CDT DTL Bicarbonate, S 26 22 - 29 mmol/L 01/01/2024 5:24 PM CDT DTL Anion Gap 10 7 - 15 01/01/2024 5:24 PM CDT DTL BUN (Blood Urea Nitrogen), S 20 6 - 21 mg/dL 01/01/2024 5:24 PM CDT DTL Creatinine 0.75 0.59 - 1.04 mg/dL 01/01/2024 5:24 PM CDT DTL Estimated GFR (eGFR) 81 >=60 mL/min/BS A 01/01/2024 5:24 PM CDT DTL Comment: Estimated GFR calculated using the 2020 CKD_EPI creatinine equation. Calcium, Total, S 9.4 8.8 - 10.2 mg/dL 01/01/2024 5:24 PM CDT DTL Glucose, S 116 70 - 140 mg/dL 01/01/2024 5:24 PM CDT DTL Protein, Total, S 6.4 6.3 - 7.9 g/dL 01/01/2024 5:24 PM CDT DTL Albumin, S 4.1 3.5 - 5.0 g/dL 01/01/2024 5:24 PM CDT DTL Aspartate Aminotransferase (AST), S 36 8 - 43 U/L 01/01/2024 5:24 PM CDT DTL Alkaline Phosphatase, S 82 35 - 104 U/L 01/01/2024 5:24 PM CDT DTL Alanine Aminotransferase (ALT), S 25 7 - 45 U/L 01/01/2024 5:24 PM CDT DTL Bilirubin, Total, S 0.4 0.0 - 1.2 mg/dL 01/01/2024 5:24 PM CDT DTL Blood (Blood, Venous) 01/01/2024 4:22 PM CDT 01/01/2024 4:59 PM CDT Blanche Monzon P.A.-C., M.S. LAB BLOOD ADD-ON Final Result [facility] [address] [place] [address], [place] DTL [facility] [address] [place] [address] * [facility], Blood (01/01/2024 4:21 PM CDT) Number of Specimens 6 01/01/2024 4:21 PM CDT HSS Blood (Blood, Venous) 01/01/2024 4:21 PM CDT 01/01/2024 4:21 PM CDT Gertrudis Marks M.D., Ph.D. LAB RESEARCH NO RESULT ROUTING Final Result [facility] [address] [place] [address], [facility] [address] [place] [address] * DX Ankle Bilateral 3+ Views (12/12/2023 10:21 AM CDT) Anatomical Region Laterality Modality Lower Extremity, Ankle, Musc uloskeletal RST LOS, Musculoskeletal ARZ LOS, Muskuloskeletal FLA LOS Bilateral Digit al Radiography Impressions 12/12/2023 10:43 AM CDT Minimal degenerative hypertrophic changes both ankles with tiny marginal hypertrophic osteophytes. There are no periarticular erosions or joint synovitis. Ankle mortises are intact. Tiny bone island within the posterior left calcaneus. Narrative 12/12/2023 10:43 AM CDT EXAM: ??DX ANKLE BILATERAL 3+ VIEWS Procedure Note Zack Napoles M.D. - 12/12/2023 EXAM: DX ANKLE BILATERAL 3+ VIEWS IMPRESSION: Minimal degenerative hypertrophic changes both ankles with tiny marginalhypertrophic osteophytes. There are no periarticular erosions or jointsynovitis. Ankle mortises are intact. Tiny bone island within theposterior left calcaneus. us Antolin Mclaughlin M.D. IMG DIAGNOSTIC IMAGING PROCEDURES Final Result * Aspiration Injection-Rheumatology Image Exam (11/22/2023 10:25 AM CDT) 11/22/2023 10:2 2 AM CDT Narrative [facility] - 11/22/2023 10:44 AM CDT This order has been created and auto-finalized to support the import of images acquired without order. The clinical documentation to support these images can be found on the encounter that produced images. us Provider Not In System IMG NON RAD IMAGING PROCE JANET Final Result [facility] NA * MS ARTHCS ASP/INJ MJR JT W US (11/22/2023 10:00 AM CDT) Narrative Remigio Reese M.D. - 11/22/2023 10:00 AM CDT Remigio Reese M.D. ? 11/22/2023 12:04 PM Knee site- R knee joint : aspiration and diagnostic-therapeutic injection Performed by: Ivis Dubois M.D. Authorized by: Tammie Qiu APRN C.N.P. ?? Care team members present 1. Remigio Reese M.D. PROCEDURE DETAILS Procedure Location knee Knee site: R knee joint Site prep: patient was prepped and draped in usual sterile fashion ?? Patient position: supine Procedural approach: lateral Procedure performed: aspiration and diagnostic-therapeutic injection Needle gauge: 20 G, length: 1 1/2 in Fluoroscopic image guidance used to localize target, identify at risk structures, and dynamically used to direct therapy to the target. Image(s) acquired and saved. Ultrasound image guidance used to localize target, identify at risk structures, and dynamically used to direct therapy to the target. Image(s) acquired and saved. Site was marked using indelible marker Probe: linear mid-frequency Needle approach: lateral to medial Ultrasound visualization: in-plane SPECIMENS Aspirate volume (mL): 20, appearance: straw color Aspirate sent for: no testing requested Procedural Medication The following medications were administered at the target site(s) Local anesthetic: 2 mL lidocaine 10 mg/mL (1 %) Corticosteroid: 80 mg triamcinolone acetonide 40 mg/mL CONSENT Consent obtained: verbal Consent given by: patient The benefits, risks and alternatives to the procedure and the potential need for sedation or anesthesia as well as the names, roles, and responsibilities of healthcare team members performing significant interventional tasks were discussed with the patient and/or decision maker. [employer]OL All relevant documentation and testing [...] procedural pause. PRE-PROCEDURE DETAILS Procedure purpose: therapeutic and diagnostic Appropriate hand hygiene, gown, cap, mask, protective eyewear, sterile gloves, skin preparation, sterile drape, and strict aseptic technique were utilized as applicable for the procedure. Site preparation: chlorhexidine SEDATION / ANESTHESIA Anesthesia method: local infiltration and topical application Topical application type: aerosol cold spray Local infiltrate type: lidocaine 1% plain POST-PROCEDURE DETAILS Procedure completed successfully: yes Complications: no apparent complications ?? Post-procedure instructions: avoid strenuous activity for 2 days, avoid submersion of procedure site for 48 hours and post-procedure activity instructions provided Discharge instructions: ice area as needed for comfort, pain management instructions, dressing care and follow-up with ordering provider Tammie Qiu APRN, C.N.P. PROCEDURE/MINOR ALDAIR GICAL ORDERABLES Final Result * Cyclic Citrullinated Peptide Antibodies, IgG (11/21/2023 9:59 AM CDT) Cyclic Citrullinated Peptide Ab, S <15.6 <20.0 (Negative) U 11/21/2023 6:45 PM CDT [facility] Comment: Interpretation: Antibodies to CCP not detected. If clinical symptoms are strongly indicative for rheumatoid arthritis, suggest testing for Rheumatoid Factor, S (RHUT) and, if positive, Rheumatoid Factor Panel, S (RFPN), which includes differentiation of rheumatoid factor IgM and IgA isotypes. Blood (Blood, Venous) 11/21/2023 9:59 AM CDT 11/21/2023 1:12 PM CDT Antolin Mclaughlin M.D. LAB BLOOD ADD-ON Final Result [facility] [address] [place] [address] [facility] [address] [place] [address] * (ABNORMAL) Sedimentation Rate (11/21/2023 9:59 AM CDT) Sedimentation Rate, B 30(H) 3 - 28 mm/h 11/21/2023 11:31 AM CDT DT Blood (Blood, Venous) 11/21/2023 9:59 AM CDT 11/21/2023 10:20 AM CDT Antolin Mclaughlin M.D. LAB BLOOD ADD-ON Final Result [facility] [address] [place] [address], [facility] [address] [place] [address] * Rheumatoid Factor (11/21/2023 9:59 AM CDT) Pathologist [facility] Rheumatoid Factor, S <15 <15 IU/mL 11/21/2023 1:30 PM CDT [facility] Blood (Blood, Venous) 11/21/2023 9:59 AM CDT 11/21/2023 12:57 PM CDT us Antolin Mclaughlin M.D. LAB BLOOD ADD-ON Final Result Performing Organization Address City/[facility]/ZIP Co de Phone Number [facility] [address] [place] [address] [facility] [address] [place] [address] * CRP (C-Reactive Protein) (11/21/2023 9:59 AM CDT) [facility] C-Reactive Protein (CRP), S <3.0 <5.0 mg/L 11/21/2023 11:10 AM CDT [facility] Blood (Blood, Venous) 11/21/2023 9:59 AM CDT 11/21/2023 10:35 AM CDT us Antolin Mclaughlin M.D. LAB BLOOD ADD-ON Final Result [facility] [address] [place] [address], [facility] [address] [place] [address] * Uric Acid (11/21/2023 9:59 AM CDT) Uric Acid, S 3.3 2.7 - 6.1 mg/dL 11/21/2023 11:10 AM CDT DTL Blood (Blood, Venous) 11/21/2023 9:59 AM CDT 11/21/2023 10:35 AM CDT Antolin Mclaughlin M.D. LAB BLOOD ADD-ON Final Result [facility] [address] [place] [address], [facility] [address] [place] [address] * Crystal Identification, Body Fluid (11/14/2023 2:50 PM CDT) Fluid Type Synovial Fluid, Right Knee 11/14/2023 9:56 PM CDT DHPM Crystal ID None seen None seen 11/14/2023 9:56 PM CDT DHPM Fluid 11/14/2023 2:50 PM CDT 11/14/2023 5:58 PM CDT Antolin Mclaughlin M.D. LAB BODY FLUIDS AND ST OOLS ORDERABLES Final Result [facility] [address] [place] [address], [facility] [address] [place] [address] * Cell Count and Differential, Body Fluid (11/14/2023 2:50 PM CDT) Fluid Type Right knee synovial 11/14/2023 9:56 PM CDT DHPM Gross Appearance Cloudy 11/14/19 9:56 PM CDT DHPM Total Nucleated Cells 9252 /mcL 11/14/2023 9:56 PM CDT [facility] Comment: ----REFERENCE VALUE---- Synovial: <150 /mcL Peritoneal: <500 /mcL Pleural: <500 /mcL Pericardial: <500 /mcL ----ADDITIONAL INFORMATION---- This test has been modified from the mononitrotoluene operator's instructions. Its performance characteristics were determined by [facility] in a manner consistent with CLIA requirements. This test has not been cleared or approved by the U.S. Food and Drug Administration. Neutrophils 52 % 11/14/2023 9:56 PM CDT [facility] Comment: ----REFERENCE VALUE---- Synovial: <25% Peritoneal: <25% Pleural: <25% Pericardial: <25% Lymphocytes 19 Synovial <75% % 11/14/2023 9:56 PM CDT PM Monocytes/Macropha ges 29 Synovial <70% % 11/14/2023 9:56 PM CDT [facility] Comment See Comment 11/15/2023 9:36 AM CDT [facility] Comment:No blasts or maligna nt cells seen. Reviewed by: Mago 11/15/2023 9:36 AM CDT [facility] Fluid (Synovial Fluid, Not Otherwise Specified) 11/14/2023 2:50 PM CDT 11/14/2023 5:58 PM CDT us Antolin Mclaughlin M.D. LAB BODY FLUIDS AND ST OOLS ORDERABLES Final Result [facility] [address] [place] [address], [facility] [address] [place] [address] * MS ARTHCS ASP/INJ MJR JT W US (11/14/2023 [...] fellow participated in the procedure, and the hr business partner consultant was present for the entire procedure. us Antolin Mclaughlin M.D. PROCEDURE/MINOR SURGIC AL ORDERABLES Final Result [facility]ODAL NA * Interpretation of Outside DX Extremity (11/13/2023 11:06 AM CDT) Anatomical Region Laterality Modality Musculoskeletal RST LOS, Mus culoskeletal ARZ LOS, Muskuloskeletal FLA LOS, Musculoskeletal, Other N/A Digita l Radiography Impressions 11/13/2023 11:12 AM CDT Moderate to large right knee joint effusion and/or synovitis. Degenerative arthritis patellofemoral compartment with changes most marked involving the medial patellar facet. Focal degenerative change posterior aspect of medial femoral condyle. Narrative 11/13/2023 11:12 AM CDT REVISED REPORT: EXAM: ??INTERPRETATION OF OUTSIDE DX EXTREMITY Outside radiographs right knee dated 10/25/2023 (3 views). Procedure Note Bryanna Mcconnell M.D. - 11/27/2023 REVISED REPORT: EXAM: INTERPRETATION OF OUTSIDE DX EXTREMITY Outside radiographs right knee dated 10/25/2023 (3 views). IMPRESSION: Moderate to large right knee joint effusion and/or synovitis. Degenerativearthritis patellofemoral compartment with changes most marked involvingthe medial patellar facet. Focal degenerative change posterior aspect ofmedial femoral condyle. Antolin Mclaughlin M.D. [facility] DIAGNOSTIC IMAGING PROCEDURES Edited Result - Final * Folate (11/01/2023 11:39 AM CDT) Folate, S >20.0 >=4.0 mcg/L 11/01/2023 12:47 PM CDT DTL Blood (Blood, Venous) 11/01/2023 11:39 AM CDT 11/01/2023 12:00 PM CDT Tammie Hooks M.D., Ph.D. LAB BLOOD ADD-ON Ciara l Result [facility] [address] [place] [address], [place] [facility] [address] [place] [address] * Vitamin B12 Assay (11/01/2023 11:39 AM [...] CDT Tammie Hooks M.D., Ph.D. LAB BLOOD ADD-ON Ciara l Result Performing Organization Address [facility] Co de Phone Number [address] [place] [address] * US venous LE RT-Outside US (10/25/2023 4:25 PM CDT) Narrative IIWI - 11/01/2023 3:14 PM CDT This order has been created and auto-finalized to support the import of outside images. If available, original interpretation can be found on the Media Tab in Chart Review, in Document Viewer, as an image in QREADS or as an Addendum. If a re-interpretation or overread is required please follow defined workflow.?? us Provider Not In System IMG US PROCEDURES Final R esult Performing Organization Address City/[facility]/ZIP Co de Phone Number IIWI NA * XR knee RT 3V-Outside Skeletal [...] overread is required please follow defined workflow.?? us Provider Not In System IMG DIAGNOSTIC IMAGING MS OCEDURES Final Result [facility] NA * CT Abdomen Pelvis with [...] disease in the abdomen or pelvis. Blanche Parkinson Nicolás Khoury M.S. IMG CT PROCEDURE S Final Result * CT Chest with IV Contrast (10/11/2023 [...] pattern is suggestive of interstitial lung disease. us Blanche Monzon P.A.-C., M.S. IMG CT PROCEDURE S Final Result * CT Neck Soft Tissue with IV [...] soft tissue mass. Blanche Monzon P.A.-C. M.S. IM CT PROCEDURE S Final Result from Last 3 Months Insurance [address] [place] [id number] MEDICARE LEGGETT Member Subscriber Plan / Payer (Ef fective 2010-Present) Name:Veronica Guevara Relation to Subscriber:Self Name:Veronica Guevara Payer ID:Not on file Group ID:Not on file Type:Indemnity Address: [employer] [address] [place] [address] Advance Directives For more information, please contact: [phone] Documents on File Type Date Recorded Patient Buffer Chrome Expl anation Advance Directives 02/02/2022 9:49 AM INV SANDY * Full Code (Latest Code Status on File) Date Activated Date Inactivated Comments 02/01/2022 8:50 PM 02/02/2022 6:01 PM Question Answer Comments Full Code: Not Discussed Due to: Patient not available Care Teams Entry Level Staff 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
--- OUTSIDE RECORDS SUMMARY | 2024-01-05 13:19 | XMS_ITS | Encounter Summary ---
Author Organization [facility] Address 200 [place] [address] Care Team Providers Care Hair Assistant Name Role Phone Elsewhere, Pcp Primary Care Provider Unavailabl e Reason for Referral * Outpatient (Routine) - Authorized Specialty Diagnoses / Procedures Referred By Contac t Referred To Contact Research Diagnoses Secondary Malignant Neoplasm Bone (HCC) Gertrudis Marks M.D., Ph.D. 200 [place] [address] Phone: tel: fax: [facility] Referral ID Status Reason Start Date Expiration Date V isits Requested Visits Authorized [id number] Authorized 12/12/2023 06/12/2025 1 1 Encounter Details Date Type Department Care Team (Late st Contact Info) Description 12/12/2023 Orders Only Division of Rheumatology in [place], [place] [address] [place] [phone] Gertrudis Marks M.D., Ph.D. 200 [place] [phone] Secondary Malignant Neoplasm Bone (HCC) (Primary Dx) Social History Tobacco Use [...] have a [facility] place to live 02/16/2023 Education Answer Date Recorded What is the highest level of school you have completed or the highest degree you have received? Bachelor's degree (e.g., BA, AB, BS) 01/24/2022 Comments No Sex and Gender Information Value Date Recorded Sex Assigned at Female 01/24/2022 7:37 PM AERIAL PHOTOGRAPH INTERPRETER Legal Sex Female 10:28 AM CDT Gender Identity Female 01/24/2022 7:37 PM AERIAL PHOTOGRAPH INTERPRETER Sexual Orientation Straight 01/24/2022 7: 37 PM AERIAL PHOTOGRAPH INTERPRETER documented as of this encounter Plan of Treatment Upcoming Encounters Date Type Department Care Team (Late st Contact Info) Description 01/09/2024 10:15 AM AERIAL PHOTOGRAPH INTERPRETER Clinical Communication Virtual Review in [address] [phone] 01/11/2024 2:00 PM AERIAL PHOTOGRAPH INTERPRETER Appointment Department of Radiation Oncology in [address] [phone] Tammie Hooks M.D., Ph.D. [address] [place] [phone] 01/17/2024 9:00 AM AERIAL PHOTOGRAPH INTERPRETER Clinical Communication Virtual Review in [address] [phone] 01/19/2024 1:00 PM AERIAL PHOTOGRAPH INTERPRETER Comprehensive Visit Department of Neurology in [address] [phone] Kory Alas M.B., Ch.B. [address] [place] [phone] 02/26/2024 9:30 AM AERIAL PHOTOGRAPH INTERPRETER Lab Department of Laboratory Medicine and Pathology, [facility] in [address] [phone] Mc Mcknight M.D., Ph.D. [address] [place] [phone] 02/26/2024 11:30 AM AERIAL PHOTOGRAPH INTERPRETER Appointment Department of Radiology, [facility] in [address] [phone] Mc Mcknight M.D., Ph.D. [address] [place] [phone] 02/26/2024 3:00 PM AERIAL PHOTOGRAPH INTERPRETER Appointment Department of Radiology, [facility] in [address] [phone] Mc Mcknight M.D., Ph.D. [address] [place] [address] 02/27/2024 1:40 PM AERIAL PHOTOGRAPH INTERPRETER Office Visit Department of Oncology in [place], [place] [address] [place] [address] Mc Mcknight M.D., Ph.D. [address] [place] [address] Scheduled Referrals Name Type Priority Associated Diagnoses Order Schedule Research Volunteer Recruitment Coordinator office visit (clinic) Outpatient Referral Routine Secondary Malignant Neoplasm Bone (HCC) Expected: 01/01/2024, Expires: 03/13/2025 documented as of this encounter Results * [facility], Blood (01/01/2024 4:21 PM CDT) Number of Specimens 6 01/01/2024 4:21 PM CDT HSS Blood (Blood, Venous) 01/01/2024 4:21 PM CDT 01/01/2024 4:21 PM CDT Gertrudis Marks M.D., Ph.D. LAB RESEARCH NO RESULT ROUTING Final Result [facility] [address] [place] [address], [facility] HSS [facility] [address] [place] [address] documented in this encounter Visit Diagnoses Diagnosis Secondary Malignant Neoplasm Bone (HCC)- Primary documented in this encounter Care Teams Hair Assistant Relationship Specialty Start Date End Date Elsewhere, Pcp PCP - General Family Medicine 02/01/22 documented as of this encounter
--- OUTSIDE RECORDS SUMMARY | 2024-01-05 13:19 | XMS_ITS | Encounter Summary ---
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 [address] [place] [phone] Phone: tel: fax: Department of Oncology in [place], [place] 200 [place] [address] Phone: tel: Referral ID Status Reason Start Date Expiration Date Visits Re quested Visits Authorized [id number] Closed 07/28/2023 07/27/2025 99 99 Encounter Details Date Type Department Care Team (Late st Contact Info) Description 12/12/2023 3:00 PM CDT Infusion Department of Oncology in [place], [place] [address] [place] [phone] Remigio Frey M.D., Ph.D. 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 Not hard at all 09/02/2022 [facility] of Occupat ional Health - Occupational Stress [...] Sex Assigned at Female 01/24/2022 7:37 PM PIZZA CHEF Legal Sex Female 10:28 AM CDT Gender Identity Female 01/24/2022 7:37 PM PIZZA CHEF Sexual Orientation Straight 01/24/2022 7: 37 PM PIZZA CHEF documented as of this encounter Plan of Treatment Upcoming Encounters Date Type Department Care Team (Late st Contact Info) Description 01/09/2024 10:15 AM PIZZA CHEF Clinical Communication Virtual Review in [address] [phone] 01/11/2024 2:00 PM PIZZA CHEF Appointment Department of Radiation Oncology in [address] [phone] Tammie Hooks M.D., Ph.D. [address] [place] [phone] 01/17/2024 9:00 AM PIZZA CHEF Clinical Communication Virtual Review in [address] [phone] 01/19/2024 1:00 PM PIZZA CHEF Comprehensive Visit Department of Neurology in [address] [phone] Kory Alas M.B., Ch.B. [address] [place] [phone] 02/26/2024 9:30 AM PIZZA CHEF Lab Department of Laboratory Medicine and Pathology, [facility] in [place], [place] [address] [place] [phone] Mc Mcknight M.D., Ph.D. [address] [place] [phone] 02/26/2024 11:30 AM PIZZA CHEF Appointment Department of Radiology, [facility], in [place], [place] [address] [place] [phone] Mc Mcknight M.D., Ph.D. [address] [place] [phone] 02/26/2024 3:00 PM PIZZA CHEF Appointment Department of Radiology, [facility] in [place], [place] [address] [place] [address] Mc Mcknight M.D., Ph.D. [address] [place] [phone] 02/27/2024 1:40 PM PIZZA CHEF Office Visit Department of Oncology in [place], [place] [address] [place] [phone] Mc Mcknight M.D., Ph.D. [address] [place] [phone] documented as of this encounter Visit Diagnoses Diagnosis Squamous Cell Carcinoma Of Skin Of Scalp And Neck- Primary Other Benzene Still Utility Operator Current Drug Therapy Secondary Malignant Neoplasm Bone (HCC) Malignant Neoplasm Of Neck Squamous Cell documented in this encounter Administered Medications Inactive Administered Medications - up to 3 most recent administrations Medication Order MAR Action Action Date Dose Rate Site cemiplimab-rwlc 350 mg in NaCl 0.9% 282 mL IVPB (Libtayo) 350 mg, intravenous, at 564 mL/hr, Administer over 30 Minutes, Once, On Mon12/12/23 at 1515, For 1 dose, Administer through in-line or add-on 0.2-micron to 5-micron filter.Indications:Other Benzene Still Utility Operator Current Drug Therapy,Secondary Malignant Neoplasm Bone (HCC),Squamous Cell Carcinoma Of Skin Of Scalp And Neck New Bag 12/12/2023 3:20 PM CDT 350 mg 564 mL/hr documented in this encounter Care Teams Asset Administrator Relationship Specialty Start Date End Date Elsewhere, Pcp PCP - General Family Medicine 02/01/22 documented as of this encounter
--- OUTSIDE RECORDS SUMMARY | 2024-01-05 13:19 | XMS_ITS | Encounter Summary ---
Author Organization [facility] Address [address] [place] [address] Care Team Providers Care Paint Prepper Name Role Phone Elsewhere, Pcp Primary Care Provider Unavailabl e Encounter Details Date Type Department Care Team (Late st Contact Info) Description 11/24/2023 Clinical Communication Department of Oncology in [place], [place] [address] [place] [phone] Mc Mcknight M.D., Ph.D. [address] [place] [phone] Social History Tobacco Use Types Packs/Day Years [...] any clubs o r organizations such as taoist groups, unions, fraternal or athletic groups, or [...] at all 09/02/2022 [facility] of Occupat ionsc Health - Occupational Stress Questionnaire Answer Date [...] your living situation today? I have a [facility] place to live 02/16/2023 Education Answer Date Recorded What is the highest level of school you have completed or the highest degree you have received? Bachelor's degree (e.g., BA, AB, BS) 01/24/2022 Comments No Sex and Gender Information Value Date Recorded Sex Assigned at Female 01/24/2022 7:37 PM SHIP'S CARPENTER Legal Sex Female 10:28 AM CDT Gender Identity Female 01/24/2022 7:37 PM SHIP'S CARPENTER Sexual Orientation Straight 01/24/2022 7: 37 PM SHIP'S CARPENTER documented as of this encounter Plan of Treatment Upcoming Encounters Date Type Department Care Team (Late st Contact Info) Description 01/09/2024 10:15 AM SHIP'S CARPENTER Clinical Communication Virtual Review in [address] [phone] 01/11/2024 2:00 PM SHIP'S CARPENTER Appointment Department of Radiation Oncology in [place], [place] [address] [place] [phone] Tammie Hooks M.D., Ph.D. [address] [place] [phone] 01/17/2024 9:00 AM SHIP'S CARPENTER Clinical Communication Virtual Review in [address] [phone] 01/19/2024 1:00 PM SHIP'S CARPENTER Comprehensive Visit Department of Neurology in [place], [place] [address] [place] [phone] Kory Alas M.B., Ch.B. [address] [place] [phone] 02/26/2024 9:30 AM SHIP'S CARPENTER Lab Department of Laboratory Medicine and Pathology, [facility] in [place], [place] [address] [place] [phone] Mc Mcknight M.D., Ph.D. [address] [place] [phone] 02/26/2024 11:30 AM SHIP'S CARPENTER Appointment Department of Radiology, [facility] in [place], [place] [address] [place] [phone] Mc Mcknight M.D., Ph.D. [address] [place] [phone] 02/26/2024 3:00 PM SHIP'S CARPENTER [facility] [place] [place] [address] [place] [phone] Mc Mcknight M.D., Ph.D. [address] [place] [phone] 02/27/2024 1:40 PM SHIP'S CARPENTER Office Visit Department of Oncology in [address] [phone] Mc Mcknight M.D., Ph.D. [address] [place] [phone] documented as of this encounter Visit Diagnoses Not on filedocumented in this encounter Care Teams Paint Prepper Relationship Specialty Start Date End Date Elsewhere, Pcp PCP - General Family Medicine 02/01/22 documented as of this encounter
--- OUTSIDE RECORDS SUMMARY | 2024-01-05 13:19 | XMS_ITS | Encounter Summary ---
Author Organization [facility] Address [address] [place] [address] Care Team Providers Care Cafe Worker Name Role Phone Elsewhere, Pcp Primary Care Provider Unavailabl e Encounter Details Date Type Department Care Team (Latest Contact Info) Description 12/29/2023 1:15 PM CDT Clinical Communication Virtual Review in [place], [place] [address] [place] [address] Social History Tobacco Use Types Packs/Day Years [...] often do you attend chur ch or baptism services? Never 01/24/2022 Do you belong to [...] and heating? Not hard at all 09/02/2022 [facility] of Occupat ional Health - Occupational [...] your living situation today? I have a [facility] place to live 02/16/2023 Education Answer Date Recorded What is the highest level of school you have completed or the highest degree you have received? Bachelor's degree (e.g., BA, AB, BS) 01/24/2022 Comments No Sex and Gender Information Value Date Recorded Sex Assigned at Female 01/24/2022 7:37 PM BAG PRINTER Legal Sex Female 10:28 AM CDT Gender Identity Female 01/24/2022 7:37 PM BAG PRINTER Sexual Orientation Straight 01/24/2022 7: 37 PM BAG PRINTER documented as of this encounter Plan of Treatment Upcoming Encounters Date Type Department Care Team (Late st Contact Info) Description 01/09/2024 10:15 AM BAG PRINTER Clinical Communication Virtual Review in [place], [place] 200 [place] [address] 01/11/2024 2:00 PM BAG PRINTER Appointment Department of Radiation Oncology in [place], [place] [address] [place] [phone] Tammie Hooks M.D., Ph.D. [address] [place] [phone] 01/17/2024 9:00 AM BAG PRINTER Clinical Communication Virtual Review in [place], [place] 200 [place] [address] 01/19/2024 1:00 PM BAG PRINTER Comprehensive Visit Department of Neurology in [place], [place] [address] [place] [phone] Kory Alas M.B., Ch.B. [address] [place] [phone] 02/26/2024 9:30 AM BAG PRINTER Lab Department of Laboratory Medicine and Pathology, [facility] in [place], [place] [address] [place] [address] Mc Mcknight M.D., Ph.D. [address] [place] [phone] 02/26/2024 11:30 AM BAG PRINTER Appointment Department of Radiology, [facility] in [place], [place] [address] [place] [phone] Mc Mcknight M.D., Ph.D. [address] [place] [phone] 02/26/2024 3:00 PM BAG PRINTER [facility] [place] [place] [address] [place] [address] Mc Mcknight M.D., Ph.D. [address] [place] [phone] 02/27/2024 1:40 PM BAG PRINTER Office Visit Department of Oncology in [place], [place] [address] [place] [phone] Mc Mcknight M.D., Ph.D. [address] [place] [phone] documented as of this encounter Visit Diagnoses Not on filedocumented in this encounter Care Teams Cafe Worker Relationship Specialty Start Date End Date Elsewhere, Pcp PCP - General Family Medicine 02/01/22 documented as of this encounter
--- OUTSIDE RECORDS SUMMARY | 2024-01-05 13:19 | XMS_ITS | Encounter Summary ---
Author Organization [facility] Address [address] [place] [address] Care Team Providers Care Refueling Ramp Supervisor Name Role Phone Elsewhere, Pcp Primary Care Provider Unavailabl e Encounter Details Date Type Department Care Team (Late st Contact Info) Description 11/22/2023 10:25 AM CDT Ancillary Procedure Department of Rheumatology Social History Tobacco Use Types Packs/Day Years [...] and heating? Not hard at all 09/02/2022 [facility] of Occupat ional Health - Occupational Stress [...] Sex Assigned at Female 01/24/2022 7:37 PM PUBLICITY PERSON Legal Sex Female 10:28 AM CDT Gender Identity Female 01/24/2022 7:37 PM PUBLICITY PERSON Sexual Orientation Straight 01/24/2022 7: 37 PM PUBLICITY PERSON documented as of this encounter Plan of Treatment Upcoming Encounters Date Type Department Care Team (Late st Contact Info) Description 01/09/2024 10:15 AM PUBLICITY PERSON Clinical Communication Virtual Review in [address] [phone] 01/11/2024 2:00 PM PUBLICITY PERSON Appointment Department of Radiation Oncology in [place], [place] [address] [place] [phone] Tammie Hooks M.D., Ph.D. [address] [place] [phone] 01/17/2024 9:00 AM PUBLICITY PERSON Clinical Communication Virtual Review in [place], [place] 200 [place] [phone] 01/19/2024 1:00 PM PUBLICITY PERSON Comprehensive Visit Department of Neurology in [place], [place] [address] [place] [phone] Kory Alas M.B., Ch.B. [address] [place] [phone] 02/26/2024 9:30 AM PUBLICITY PERSON Lab Department of Laboratory Medicine and Pathology, [facility] in [place], [place] [address] [place] [phone] Mc Mcknight M.D., Ph.D. [address] [place] [phone] 02/26/2024 11:30 AM PUBLICITY PERSON Appointment Department of Radiology, [facility] in [place], [place] [address] [place] [phone] Mc Mcknight M.D., Ph.D. [address] [place] [phone] 02/26/2024 3:00 PM PUBLICITY PERSON [facility] [place] [address] [place] [phone] Mc Mcknight M.D., Ph.D. [address] [place] [phone] 02/27/2024 1:40 PM PUBLICITY PERSON Office Visit Department of Oncology in [address] [phone] Mc Mcknight M.D., Ph.D. [address] [place] [phone] documented as of this encounter Procedures Procedure Name Priority Date/Time Associated Diagnosis Comments RHEUMATOLOGY IMAGE EXAM Routine 11/22/2023 10:25 AM CDT documented in this encounter Results * Aspiration Injection-Rheumatology Image Exam (11/22/2023 10:25 AM CDT) 11/22/2023 10:2 2 AM CDT Narrative [facility]IM[facility] - 11/22/2023 10:44 AM CDT This order has been created and auto-finalized to support the import of images acquired without order. The clinical documentation to support these images can be found on the encounter that produced images. us Provider Not In System IMG NON RAD IMAGING PROCE DURES Final Result [facility] NA documented in this encounter Visit Diagnoses Not on filedocumented in this encounter Care Teams Refueling Ramp Supervisor Relationship Specialty Start Date End Date Elsewhere, Pcp PCP - General Family Medicine 02/01/22 documented as of this encounter
--- OUTSIDE RECORDS SUMMARY | 2024-01-05 13:19 | XMS_ITS | Encounter Summary ---
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 200 [place] [address] Phone: tel: fax: Department of Oncology in [place], [place] [address] [place] [address] Phone: tel: Referral ID Status Reason Start Date Expiration Date Visits Re quested Visits Authorized [id number] Closed 07/28/2023 07/27/2025 99 99 Encounter Details Date Type Department Care Team (Late st Contact Info) Description 12/12/2023 1:00 PM CDT Office Visit Department of Oncology in [place], [place] [address] [place] [phone] Mc Mcknight M.D., Ph.D. [address] [place] [phone] Other Fish Net Stringer Current Drug Therapy; Secondary Malignant Neoplasm Bone [...] and heating? Not hard at all 09/02/2022 [facility] [place] of Occupat ional [facility] - Occupational Stress Questionnaire Answer Date [...] Sex Assigned at Female 01/24/2022 7:37 PM STONEWORKING SANDER Legal Sex Female 10:28 AM CDT Gender Identity Female 01/24/2022 7:37 PM STONEWORKING SANDER Sexual Orientation Straight 01/24/2022 7: 37 PM STONEWORKING SANDER documented as of this encounter Last Filed Vital Signs Vital Sign Reading Time Taken Comments Blood Pressure 96/62 12/12/2023 12:31 PM CDT Pulse 62 12/12/2023 12:31 PM CDT Temperature 36.6 ??C (97.9 ??F) 12/12/2023 12:31 PM C DT Respiratory Rate 16 12/12/2023 12:31 PM CDT Oxygen Saturation 98% 12/12/2023 12:31 PM CDT Inhaled Oxygen Concentration - - Weight 56.5 kg (124 lb 9 oz) 12/12/2023 12:31 PM CDT Height 160.9 cm (5' 3.35) 12/12/2023 12:31 PM C DT Body Mass Index 21.82 12/12/2023 12:31 PM CDT documented in this encounter Progress Notes * Mc Mcknight M.D., Ph.D. 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 HISTORY OF PRESENT ILLNESS Oncology History Squamous Cell Carcinoma Of Skin Of Scalp And Neck 07/2021 Initial Diagnosis July 2021: Noticed a lesion on the vertex of the scalp. Evaluated by leather shaver Dr. Banuelos in [place] and was treated for possible psoriasis. The lesion persisted after 6 weeks. She was then treated with UV phototherapy between September and December of 2021. September 22, 2021---December 17, 2021: Underwent biopsy of the vertex scalp lesion which revealed squamous cell carcinoma. Incisional biopsy of left level 5 lymph node also revealed squamous cell carcinoma. 12/30/2021 Biopsy/Pathology A. Skin, scalp, vertex, excisional biopsy ([id number]; 12/30/2021): Invasive poorly differentiated squamous cell carcinoma, transected at base and lateral edge of the specimen. B. Neck, left, soft tissue, biopsy ([id number]; 01/13/2022): Invasive poorly differentiated squamous cell carcinoma [...] HISTORY: Ms. Guevara returns for follow-up of cSCC. Currently she has no new complaints. Doing well. R kneefeels much better after steroid injection. ECOG performance status is 0. MEDICAL/SURGICAL HISTORY [...] and Family History. OBJECTIVE VITAL SIGNS Vitals: 12/12/23 1231 BP: 96/62 BP Location: Right arm Patient Position: Sitting Cuff Size: Large Pulse: 62 Resp: 16 Temp: 36.6 ??C TempSrc: Tympanic SpO2: 98% Weight: 56.5 kg Height: 160.9 cm Rate your distress: 5 PHYSICAL EXAMINATION General: Alert female, in no acute distress. Ambulates on and off the exam table without difficulty. Skin: No rashes. Well healed surgical scars Eyes: Sclerae non-icteric. ENT: Moist mucous membranes. No oral lesions. Lymph: No palpable cervical, supraclavicular, or axillary lymphadenopathy. Ext: no R knee effusions; no tenderness to palpation ASSESSMENT / PLAN 1. 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 Mrs Guevara is doing very well. Tolerating cemiplimab without complications. At this point, wewill restage the skull mass at her next visit (PET/CT and MRI). If the lesion is FDG avid and unchanged, I would proceed with radiation therapy. IF the lesion is FDG cold and unchanged, I would hold t reatment and observe. We will make our final decision based on the new images. 2. ICI toxicity: (1) R knee arthritis/effusion; (2) xerostomia. R knee effusion has resolved with the steroid injection. Xerostomia is stable; will try a few simple OTC remedies to help. With the accumulating ICI toxicities, we will look to hold future treatment unless absolutely necessary. 3. Mrs Guevara and family were very appreciative of our visit. They will proceed as advised. PATIENT EDUCATION: Ready to learn, no apparent [...] st Contact Info) Description 01/09/2024 10:15 AM STONEWORKING SANDER Clinical Communication Virtual Review in [address] [phone] 01/11/2024 2:00 PM STONEWORKING SANDER Appointment Department of Radiation Oncology in [address] [phone] Tammie Hooks M.D., Ph.D. [address] [place] [phone] 01/17/2024 9:00 AM STONEWORKING SANDER Clinical Communication Virtual Review in [address] [phone] 01/19/2024 1:00 PM STONEWORKING SANDER Comprehensive Visit Department of Neurology in [address] [phone] Kory Alas M.B., Ch.B. [address] [place] [phone] 02/26/2024 9:30 AM STONEWORKING SANDER Lab Department of Laboratory Medicine and Pathology, [facility] in [place], [place] [address] [place] [phone] Mc Mcknight M.D., Ph.D. [address] [place] [phone] 02/26/2024 11:30 AM STONEWORKING SANDER Appointment Department of Radiology, [facility] in [place], [place] [address] [place] [address] Mc Mcknight M.D., Ph.D. [address] [place] [phone] 02/26/2024 3:00 PM STONEWORKING SANDER Appointment Department of Radiology, [facility] in [place], [place] [address] [place] [phone] Mc Mcknight M.D., Ph.D. [address] [place] [phone] 02/27/2024 1:40 PM STONEWORKING SANDER Office Visit Department of Oncology in [place], [place] [address] [place] [phone] Mc Mcknight M.D., Ph.D. 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
--- OUTSIDE RECORDS SUMMARY | 2024-01-05 13:19 | XMS_ITS | Encounter Summary ---
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 [address] [place] [phone] Phone: tel: fax: [facility] Referral ID Status Reason Start Date Expiration Date V isits Requested Visits Authorized [id number] Authorized 01/02/2024 01/01/2025 1 1 * Outpatient (Routine) - Authorized Specialty Diagnoses / Procedures Referred By Ryan cronin Referred To Contact Oncology Mc Mcknight M.D., Ph.D. 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 [address] [place] [phone] Phone: tel: fax: Department of Oncology in [place], [place] [address] [place] [phone] Phone: tel: Referral ID Status Reason Start Date Expiration Date Visits Re quested Visits Authorized [id number] Closed 07/28/2023 07/27/2025 99 99 Encounter Details Date Type Department Care Team (Late st Contact Info) Description 01/02/2024 1:00 PM CDT Office Visit Department of Oncology in [place], [place] [address] [place] [phone] Mc Mcknight M.D., Ph.D. 200 [place] [phone] Other [facility] Current Drug Therapy; Secondary Malignant Neoplasm Bone [...] How often do you attend chur or orthodox services? Never 01/24/2022 Do you belong to any clubs o r organizations such as temple groups, unions, fraternal or athletic groups, or [...] and heating? 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 Legal Sex Female 10:28 AM CDT Gender Identity Female 01/24/2022 7:37 PM CLOTH BOIL OFF MACHINE OPERATOR Sexual Orientation Straight 01/24/2022 7: 37 PM CLOTH BOIL OFF MACHINE OPERATOR documented as of this encounter Last Filed Vital Signs Vital Sign Reading Time Taken Comments Blood Pressure 117/71 01/02/2024 1:08 PM CDT Pulse 66 01/02/2024 1:08 PM CDT Temperature 36.4 ??C (97.5 ??F) 01/02/2024 1:08 PM CD T Respiratory Rate - - Oxygen Saturation 97% 01/02/2024 1:08 PM CDT Inhaled Oxygen Concentration - - Weight 58.7 kg (129 lb 6.6 oz) 01/02/2024 1:08 P M CDT Height - - Body Mass Index 22.67 12/12/2023 12:31 PM CDT documented in this encounter Progress Notes * Mc Mcknight M.D., Ph.D. 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 HISTORY OF PRESENT ILLNESS Oncology History Squamous Cell Carcinoma Of Skin Of Scalp And Neck 07/2021 Initial Diagnosis July 2021: Noticed a lesion on the vertex of the scalp. Evaluated by mosaic floor layer Dr. Banuelos in [place] and was treated for possible psoriasis. The lesion persisted after 6 weeks. She was then treated with UV phototherapy between September and December of 2021. September 22, 2021---December 17, 2021: Underwent biopsy of the vertex scalp lesion which revealed squamous cell carcinoma. Incisional biopsy of left level 5 lymph node also revealed squamous cell carcinoma. 12/30/2021 Biopsy/Pathology A. Skin, scalp, vertex, excisional biopsy ([id number]; 12/30/2021): Invasive poorly differentiated squamous cell carcinoma, transected at base and lateral edge of the specimen. B. Neck, left, soft tissue, biopsy ([id number]; 01/13/2022): Invasive poorly differentiated squamous cell carcinoma [...] suspicious for a metastatic lesion. 08/08/2023 - 12/12/2023 Chemotherapy Cemiplimab-rwlc Start Date: 08/08/2023 01/02/2024 Critical Imaging PET/CT: 1. No residual or recurrent FDG avid disease in the scalp or neck. Since the prior PET/CT, the scalp lesion and cervical lymph node metastases have been resected/treated. 2. Right parieto-occipital lytic lesion is mildly FDG avid (screen captures), suspicious for metastasis. No other convincing evidence of FDG avid metastatic disease. 3. Mildly FDG avid cutaneous soft tissue thickening in the posterior right thigh, favored inflammatory although direct visualization is recommended. MRI head: 1. Enhancing lesions in the right parietal and high right calvarium has demonstrated slow progressive growth since 2022, and are suspicious for metastases. 2. Tiny enhancing focus in the midline scalp is unchanged. Previous noted additional focus of enhancement in the high left parietal scalp has resolved since the prior exam. INTERVAL HISTORY: Ms. Guevara returns for follow-up of cSCC. Currently she has no new complaints. Doing well. Knee injection has helped control inflammatory symptoms (arthritis). ECOG performance status is 1. MEDICAL/SURGICAL HISTORY Past Medical History: Diagnosis Date [...] and Family History. OBJECTIVE VITAL SIGNS Vitals: 01/02/24 1308 BP: 117/71 BP Location: Right arm Patient Position: Sitting Pulse: 66 Temp: 36.4 ??C TempSrc: Tympanic SpO2: 97% Weight: 58.7 kg No data recorded PHYSICAL EXAMINATION General: Alert female, in no acute distress. Ambulates on and off the exam table without difficulty. ASSESSMENT / PLAN 1. 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 Mrs Guevara is doing well. On today's scans the lesion in the skull is almost undetectable on PET/CT and is just about the same size on MRI brain. With that in mind, and the accumulating arthritic complications of immunotherapy, my best suggestion is to HOLD further treatment and see if any of these skull findings change for the worse without any therapy. We discussed risks/benefits and alternatives to this approach. Having considered the options, Mrs Guevara agreed to proceed as advised. We will bring her back in February for re-staging. Will hold on further Rx at this time. 2. ICI toxicity: (1) R knee arthritis/effusion; (2) xerostomia. PATIENT EDUCATION: Ready to learn, no apparent [...] st Contact Info) Description 01/09/2024 10:15 AM CLOTH BOIL OFF MACHINE OPERATOR Clinical Communication Virtual Review in [address] [phone] 01/11/2024 2:00 PM CLOTH BOIL OFF MACHINE OPERATOR Appointment Department of Radiation Oncology in [address] [phone] Tammie Hooks M.D., Ph.D. [address] [place] [phone] 01/17/2024 9:00 AM CLOTH BOIL OFF MACHINE OPERATOR Clinical Communication Virtual Review in [address] [phone] 01/19/2024 1:00 PM CLOTH BOIL OFF MACHINE OPERATOR Comprehensive Visit Department of Neurology in [place], [place] [address] [place] [phone] Kory Alas M.B., Ch.B. [address] [place] [phone] 02/26/2024 9:30 AM CLOTH BOIL OFF MACHINE OPERATOR Lab Department of Laboratory Medicine and Pathology, [place], [place] [address] [place] [phone] Mc Mcknight M.D., Ph.D. [address] [place] [phone] 02/26/2024 11:30 AM CLOTH BOIL OFF MACHINE OPERATOR [place]ointment [place] [address] [place] [phone] Mc Mcknight M.D., Ph.D. [address] [place] [phone] 02/26/2024 3:00 PM CLOTH BOIL OFF MACHINE OPERATOR [place]ointment [place] [address] [place] [phone] Mc Mcknight M.D., Ph.D. [address] [place] [phone] 02/27/2024 1:40 PM CLOTH BOIL OFF MACHINE OPERATOR Office Visit Department of Oncology in [address] [phone] Mc Mcknight M.D., Ph.D. 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 Expected: 03/03/2024 (Approximate), Expires: 04/03/2025 CBC with Differential, Blood Lab Routine Other [facility] Current Drug Therapy 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 Expected: 03/03/2024 (Approximate), Expires: 01/01/2025 Comprehensive Metabolic Panel Lab Routine Other [facility] Current Drug Therapy 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 Expected: 03/03/2024 (Approximate), Expires: 01/01/2025 Scheduled Referrals Name Type Priority Associated Diagnoses Orde r Schedule Oncology office visit (clinic) Outpatient Referral Routine Expected: 03/03/2024 (Approximate), Expires: 04/03/2025 documented as of this encounter Visit Diagnoses Diagnosis Other [facility] Current Drug Therapy 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
--- OUTSIDE RECORDS SUMMARY | 2024-01-05 13:19 | XMS_ITS ---
Author Organization [facility] Address [address] [place] [address] Care Team Providers Care Land Lease Information Clerk Name Role Phone Elsewhere, Pcp Primary Care Provider Unavailabl e Active Problems * This document contains information received from the source organization and may not represent a complete record from that organization. Problem Noted Date Diagnosed Date Secondary Malignant Neoplasm Bone 07/28/2023 Other Prison Current Drug Therapy 07/28/2023 Malignant Neoplasm Of Neck Squamous Cell 022 Squamous Cell Carcinoma Of Skin Of Scalp And Nec k 01/26/2022 Overview (01/26/2022): Added automatically from request for surgery [id number] Amnesia 01/26/2022 Disorder Of The Skin And Subcutaneous Tissue Uns pecified 01/26/2022 Dry Eye Syndrome Right 01/26/2022 Dyslipidemia 01/26/2022 Fatigue 01/26/2022 Fatty Liver 01/26/2022 Gastroesophageal Reflux Disease 01/26/2022 Generalized Enlarged Lymph Nodes 01/26/2022 Hereditary And Idiopathic Neuropathy Unspecified 01/26/2022 Hyperlipidemia 01/26/2022 Microscopic Colitis Unspecified 01/26/2022 Nonrheumatic Aortic Valve Insufficiency 01/27/20 22 Osteoporosis 10/26/2020 Current Oncology Plans Vascular Access Patency - Peripheral Intravenous Catheter and Rapid Infusion Catheter* Plan Start Date:08/08/2023 Linked Problems Malignant Neoplasm Of Neck S quamous Cell Treatment Medications No medications scheduled. Past Plans Hematology / Oncology Treatment 1 Plan Name Start Date Discontinue Date Treatment Medications Discontinue Reason Plan Provider Cycles Cemiplim ab-rwlc 08/08/2023 01/02/2024 cemiplimab-rwlc (Libtayo)cemipl imab-rwlc (Libtayo) IVPB solution Therapy Complete Blanche Monzon PTracee.-Nixon., M.S. 7 of 8 cycles started Radiation Treatments * Plan Last Treated On Elapsed Days Fractions Treated Prescribed Fraction Dose Prescribed Total Dose [id number] 04/29/2022 39 30 of 30 220 cGy 6,600 cGy S4Oyrct 04/29/2022 39 30 of 30 200 cGy 6,000 cGy Reference Point Last Treated On Elapsed Days Session Dose Total Dose [id number] 04/29/2022 39 200 cGy 6,000 cGy [id number] 04/29/2022 39 220 cGy 6,600 cGy
--- OUTSIDE RECORDS SUMMARY | 2024-01-05 13:19 | XMS_ITS | Referral Summary ---
Author Organization [facility] Address [address] [place] [address] Care Team Providers Care Pipe Buffer Name Role Phone Elsewhere, Pcp Primary Care Provider Unavailabl e Source Comments Patient records contain information from all sites at [facility]. For routine questions regarding patient records, call [phone] during business hours, M-F 8:00 AM - 5:00 PM Central Time. Record requests for emergency care only can be directed to [phone] at any time.[facility] Encounters * This document contains information received from the source organization and may not represent a complete record from that organization. Date Type Department Care Team Description 01/02/2024 6:29 AM CDT - 01/02/2024 11:59 PM CDT Hospital Encounter Department of Radiology, [facility], in [place], [place] [address] [place] [address] Mc Mcknight M.D., Ph.D. Other Sorority Mother Current Drug Therapy; Secondary Malignant Neoplasm Bone (HCC); Squamous Cell Carcinoma Of Skin Of Scalp And Neck Discharge Disposition: Home or Self Care 01/02/2024 1:00 PM CDT Office Visit Department of Oncology in [place], [place] [address] [place] [address] Mc Mcknight M.D., Ph.D. Other Fdc Current Drug Therapy; Secondary Malignant Neoplasm Bone (HCC); Squamous Cell Carcinoma Of Skin Of Scalp And Neck 01/01/2024 3:30 PM CDT Clinical Support - [facility] Division of Rheumatology in [address] [phone] Gertrudis Marks M.D., Ph.D. Tahira Lujan Secondary Malignant Neoplasm Bone (HCC) 01/01/2024 4:25 PM CDT - 01/01/2024 11:59 PM CDT Hospital Encounter Department of Radiology, [facility] in [place], [place] [address] [place] [phone] Tammie Hooks M.D., Ph.D. Squamous Cell Carcinoma Of Skin Of Scalp And Neck Discharge Disposition: Home or Self Care 12/29/2023 1:15 PM CDT Clinical Communication Virtual Review in [place], [place] [address] [place] [address] 12/12/2023 Orders Only Division of Rheumatology in [address] [phone] Gertrudis Marks M.D., Ph.D. Secondary Malignant Neoplasm Bone (HCC) (Primary Dx) 12/12/2023 10:13 AM CDT - 12/12/2023 11:59 PM CDT Hospital Encounter Department of Radiology, [facility] in [address] [phone] Antolin Mclaughlin M.D. Arthritis Inflammatory (HCC) Discharge Disposition: Home or Self Care 12/12/2023 1:00 PM CDT Office Visit Department of Oncology in [address] [phone] Mc Mcknight M.D., Ph.D. Other Sorority Mother Current Drug Therapy; Secondary Malignant Neoplasm Bone (HCC); Squamous Cell Carcinoma Of Skin Of Scalp And Neck 12/12/2023 3:00 PM CDT Infusion Department of Oncology in [address] [phone] Remigio Frey M.D., Ph.D. Squamous Cell Carcinoma Of Skin Of Scalp And Neck (Primary Dx); Other Fdc Current Drug Therapy; Secondary Malignant Neoplasm Bone (HCC); Malignant Neoplasm Of Neck Squamous Cell 11/24/2023 Clinical Communication Department of Oncology in [place], [place] [address] [place] [phone] Mc Mcknight M.D., Ph.D. 11/22/2023 10:25 AM CDT Ancillary Procedure Department of Rheumatology 11/22/2023 10:00 AM CDT Procedure visit Division of Rheumatology in [place], [place] [address] [place] [phone] Tammie Qiu APRN C.N.PRemigio Gates M.D. Arthritis Inflammatory (HCC) 11/21/2023 7:45 AM CDT Comprehensive Visit Division of Rheumatology in [place], [place] [address] [place] [phone] Antolin Mclaughlin M.D. Baker, Jessica N, APRN, C.N.PNey Arthritis Inflammatory (HCC) (Primary Dx) 11/21/2023 1:00 PM CDT Office Visit Department of Oncology in [address] [phone] Mc Mcknight M.D., Ph.D. Other Sorority Mother Current Drug Therapy; Secondary Malignant Neoplasm Bone (HCC); Squamous Cell Carcinoma Of Skin Of Scalp And Neck 11/21/2023 2:15 PM CDT Infusion Department of Oncology in [place], [place] [address] [place] [phone] Remigio Frey M.D., Ph.D. Squamous Cell Carcinoma Of Skin Of Scalp And Neck (Primary Dx); Other Sorority Mother Current Drug Therapy; Secondary Malignant Neoplasm Bone (HCC); Malignant Neoplasm Of Neck Squamous Cell 11/17/2023 Orders Only Department of Physical Medicine and Rehabilitation in [address] [phone] Antolin Mclaughlin M.D. Arthritis Inflammatory (HCC) (Primary Dx) 11/17/2023 8:00 AM CDT Internal E-Consult Division of Rheumatology in [place], [place] [address] [place] [phone] Monica Dawson M.B.B.SNey Effusion Knee Right 11/15/2023 Orders Only Department of Physical Medicine and Rehabilitation in [place], [place] [address] [place] [address] Antolin Mclaughlin M.D. Effusion Knee Right (Primary Dx) 11/14/2023 2:30 PM CDT Procedure visit Department of Physical Medicine and Rehabilitation in [place], [place] [address] [place] [phone] Divine Ayala M.D. Effusion Knee Right 11/13/2023 11:05 AM CDT Ancillary Procedure Department of Radiology in [place], [place] [address] [place] [address] Antolin Mclaughlin M.D. Effusion Knee Right 11/13/2023 10:00 AM CDT Comprehensive Visit Department of Physical Medicine and Rehabilitation in [place], [place] [address] [place] [address] Antolin Mclaughlin M.D. Effusion Knee Right (Primary Dx); Malignant Neoplasm Of Neck Squamous Cell; Secondary Malignant Neoplasm Bone (HCC); Other Fdc Current Drug Therapy; Squamous Cell Carcinoma Of Skin Of Scalp And Neck 11/10/2023 8:00 AM CDT Office Visit Department of Dermatology in [place], [place] [address] [place] [phone] Emily Bell M.D. Nevi Multiple (Primary Dx); Squamous Cell Carcinoma Of Skin Of Scalp And Neck; Secondary Malignant Neoplasm Bone (HCC); Other Fdc Current Drug Therapy; Dermatoheliosis; Keratosis Seborrheic; Psoriasis; Dermatitis Discharge Disposition: Home or Self Care 11/01/2023 Clinical Communication Department of Oncology in [place], [place] [address] [place] [address] Blanche Monzon P.A.-C., M.S. 11/01/2023 1:40 PM CDT Office Visit Department of Oncology in [place], [place] [address] [place] [phone] Blanche Monzon P.A.-C., M.S. Malignant Neoplasm Of Neck Squamous Cell (Primary Dx); Squamous Cell Carcinoma Of Skin Of Scalp And Neck; Secondary Malignant Neoplasm Bone (HCC); Other Sorority Mother Current Drug Therapy; Pain In Joint; Effusion Joint 11/01/2023 2:45 PM CDT Infusion Department of Oncology in [place], [place] [address] [place] [phone] Remigio Frey M.D., Ph.D. Squamous Cell Carcinoma Of Skin Of Scalp And Neck (Primary Dx); Other Sorority Mother Current Drug Therapy; Secondary Malignant Neoplasm Bone (HCC); Malignant Neoplasm Of Neck Squamous Cell 10/30/2023 11:00 AM CDT Clinical Communication Virtual Review in [place], [place] [address] [place] [address] 10/11/2023 3:30 PM CDT - 10/12/2023 10:05 AM CDT Hospital Encounter Department of Radiation Oncology in [address] [phone] Tammie Hooks M.D., Ph.D. Squamous Cell Carcinoma Of Skin Of Scalp And Neck (Primary Dx) 10/11/2023 7:41 AM CDT - 10/11/2023 3:29 PM CDT Hospital Encounter Department of Radiology, [facility] in [place], [place] [address] [place] [phone] Blnache Monzon P.A.-C., M.S. Squamous Cell Carcinoma Of Skin Of Scalp And Neck; Secondary Malignant Neoplasm Bone (HCC); Other Sorority Mother Current Drug Therapy Discharge Disposition: Home or Self Care 10/11/2023 6:45 AM CDT - 10/11/2023 7:40 AM CDT Hospital Encounter Department of Radiology, [facility] in [address] [phone] Blanche Monzon P.A.-C., M.S. Squamous Cell Carcinoma Of Skin Of Scalp And Neck; Secondary Malignant Neoplasm Bone (HCC); Other Fdc Current Drug Therapy Discharge Disposition: Home or Self Care 10/11/2023 2:00 PM CDT Infusion Department of Oncology in [place], [place] [address] [place] [phone] Blanche Monzon P.A.-C., M.S. Malignant Neoplasm Of Neck Squamous Cell (Primary Dx); Other Sorority Mother Current Drug Therapy; Secondary Malignant Neoplasm Bone (HCC); Squamous Cell Carcinoma Of Skin Of Scalp And Neck 10/11/2023 1:00 PM CDT Office Visit Department of Oncology in [place], [place] [address] [place] [phone] Remigio Frey M.D., Ph.D. Squamous Cell Carcinoma Of Skin Of Scalp And Neck (Primary Dx); Other Sorority Mother Current Drug Therapy; Secondary Malignant Neoplasm Bone (HCC) 10/09/2023 10:45 AM CDT Clinical Communication Virtual Review in [place], [place] [address] [place] [address] Blood Pressure from Last 3 Months Allergies Active Allergy [...] capsule Take 1 capsule by mouth daily. 4 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/28/2023 Other Fdc Current Drug Therapy 07/28/2023 Malignant Neoplasm Of Neck Squamous Cell 022 Squamous Cell Carcinoma Of Skin Of Scalp And Nec k 01/26/2022 Overview (01/26/2022): Added automatically from request for surgery [id number] Amnesia 01/26/2022 Disorder Of The Skin And [...] and heating? Not hard at all 09/02/2022 [facility] [place] of Occupat ional Health - Occupational Stress [...] living situation today? I have a [facility] place to live 02/16/2023 Education Answer Date Recorded What is the highest level of school you have completed or the highest degree you have received? Bachelor's degree (e.g., BA, AB, BS) 01/24/2022 Comments No Sex and Gender Information Value Date Recorded Sex Assigned at Female 01/24/2022 7:37 PM [employer] Legal Sex Female 10:28 AM CDT Gender Identity Female 01/24/2022 7:37 PM LITHOPLATE MAKER Sexual Orientation Straight 01/24/2022 7: 37 PM LITHOPLATE MAKER Last Filed Vital Signs Vital Sign Reading [...] st Contact Info) Description 01/09/2024 10:15 AM LITHOPLATE MAKER Clinical Communication Virtual Review in [address] [phone] 01/11/2024 2:00 PM LITHOPLATE MAKER Appointment Department of Radiation Oncology in [place], [place] [address] [place] [phone] Tammie Hooks M.D., Ph.D. [address] [place] [phone] 01/17/2024 9:00 AM LITHOPLATE MAKER Clinical Communication Virtual Review in [place], [place] [address] [place] [address] 01/19/2024 1:00 PM LITHOPLATE MAKER Comprehensive Visit Department of Neurology in [place], [place] [address] [place] [phone] Kory Alas M.B., Ch.B. [address] [place] [phone] 02/26/2024 9:30 AM LITHOPLATE MAKER Lab Department of Laboratory Medicine and Pathology, [facility] in [place], [place] [address] [place] [phone] Mc Mcknight M.D., Ph.D. [address] [place] [phone] 02/26/2024 11:30 AM LITHOPLATE MAKER Appointment Department of Radiology, [facility] in [place], [place] [address] [place] [phone] Mc Mcknight M.D., Ph.D. [address] [place] [phone] 02/26/2024 3:00 PM LITHOPLATE MAKER [facility] [place] [place] [address] [place] [phone] Mc Mcknight M.D., Ph.D. [address] [place] [phone] 02/27/2024 1:40 PM LITHOPLATE MAKER Office Visit Department of Oncology in [place], [place] [address] [place] [phone] Mc Mcknight M.D., Ph.D. [address] [place] [phone] Medical Devices Implanted Type Area Physician Gynecologist Device Identifier Shelf Expiration Date Model / Serial / Lot Hardware E.G. Pins/Screws/Ro ds Hardware e.g. pins/screws/r ods Mouth Procedures Procedure Name Priority Date/Time Associated Diagnosis Comments PET CT SKULL TO THIGH RAD - Routine (most inpatients and all outpatients) 01/02/2024 8:20 AM CDT Other Fdc Current Drug Therapy Secondary Malignant Neoplasm Bone (HCC) Squamous Cell Carcinoma Of Skin Of Scalp And Neck MR BRAIN WITHOUT AND WITH IV CONTRAST RAD - Routine (most inpatients and all outpatients) 01/01/2024 6:15 PM CDT Squamous Cell Carcinoma Of Skin Of Scalp And Neck THYROID FUNCTION CASCADE, S Routine 01/01/2024 4:22 PM CDT Other Fdc Current Drug Therapy Secondary Malignant Neoplasm Bone (HCC) Squamous Cell Carcinoma Of Skin Of Scalp And Neck BILIRUBIN DIRECT, S/P Routine 01/01/2024 4:22 PM CDT Other Sorority Mother Current Drug Therapy Secondary Malignant Neoplasm Bone (HCC) Squamous Cell Carcinoma Of Skin Of Scalp And Neck COMPREHENSIVE METABOLIC PANEL, S/P Routine 01/01/2024 4:22 PM CDT Other Sorority Mother Current Drug Therapy Secondary Malignant Neoplasm Bone (HCC) Squamous Cell Carcinoma Of Skin Of Scalp And Neck CBC WITH DIFFERENTIAL, B Routine 01/01/2024 4:22 PM CDT Other Fdc Current Drug Therapy Secondary Malignant Neoplasm Bone (HCC) Squamous Cell Carcinoma Of Skin Of Scalp And Neck [facility] RESEARCH ORDER, B Routine 01/01/2024 4:21 PM CDT Secondary Malignant Neoplasm Bone (HCC) THYROID FUNCTION CASCADE, S Routine 12/12/2023 10:40 AM CDT Other Fdc Current Drug Therapy Secondary Malignant Neoplasm Bone (HCC) Squamous Cell Carcinoma Of Skin Of Scalp And Neck BILIRUBIN DIRECT, S/P Routine 12/12/2023 10:40 AM CDT Other Sorority Mother Current Drug Therapy Secondary Malignant Neoplasm Bone (HCC) Squamous Cell Carcinoma Of Skin Of Scalp And Neck COMPREHENSIVE METABOLIC PANEL, S/P Routine 12/12/2023 10:40 AM CDT Other Fdc Current Drug Therapy Secondary Malignant Neoplasm Bone (HCC) Squamous Cell Carcinoma Of Skin Of Scalp And Neck CBC WITH DIFFERENTIAL, B Routine 12/12/2023 10:40 AM CDT Other Sorority Mother Current Drug Therapy Secondary Malignant Neoplasm Bone (HCC) Squamous Cell Carcinoma Of Skin Of Scalp And Neck DX ANKLE BILATERAL 3+ VIEWS RAD - Routine (most inpatients and all outpatients) 12/12/2023 10:21 AM CDT Arthritis Inflammatory (HCC) RHEUMATOLOGY IMAGE EXAM Routine 11/22/2023 10:25 AM CDT KS ARTHCS ASP/INJ MJR JT W US Routine [...] S Routine 11/21/2023 9:59 AM CDT Other Sorority Mother Current Drug Therapy Secondary Malignant Neoplasm Bone (HCC) Squamous Cell Carcinoma Of Skin Of Scalp And Neck BILIRUBIN DIRECT, S/P Routine 11/21/2023 9:59 AM CDT Other Sorority Mother Current Drug Therapy Secondary Malignant Neoplasm Bone (HCC) Squamous Cell Carcinoma Of Skin Of Scalp And Neck COMPREHENSIVE METABOLIC PANEL, S/P Routine 11/21/2023 9:59 AM CDT Other Sorority Mother Current Drug Therapy Secondary Malignant Neoplasm Bone (HCC) Squamous Cell Carcinoma Of Skin Of Scalp And Neck CBC WITH DIFFERENTIAL, B Routine 11/21/2023 9:59 AM CDT Other Sorority Mother Current Drug Therapy Secondary Malignant Neoplasm Bone (HCC) Squamous Cell Carcinoma Of Skin Of Scalp And Neck CRYSTAL ID, BF Routine 11/14/2023 2:50 PM CDT CELL COUNT AND DIFFERENTIAL, BF Routine 11/14/2023 2:50 PM CDT Effusion Knee Right KS ARTHCS ASP/INJ MJR JT W US Routine [...] S Routine 11/01/2023 11:39 AM CDT Other Sorority Mother Current Drug Therapy Secondary Malignant Neoplasm Bone (HCC) Squamous Cell Carcinoma Of Skin Of Scalp And Neck BILIRUBIN DIRECT, S/P Routine 11/01/2023 11:39 AM CDT Other Sorority Mother Current Drug Therapy Secondary Malignant Neoplasm Bone (HCC) Squamous Cell Carcinoma Of Skin Of Scalp And Neck COMPREHENSIVE METABOLIC PANEL, S/P Routine 11/01/2023 11:39 AM CDT Other Sorority Mother Current Drug Therapy Secondary Malignant Neoplasm Bone (HCC) Squamous Cell Carcinoma Of Skin Of Scalp And Neck CBC WITH DIFFERENTIAL, B Routine 11/01/2023 11:38 AM CDT Other Sorority Mother Current Drug Therapy Secondary Malignant Neoplasm Bone [...] (HCC) Other Fdc Current Drug Therapy CT ABDOMEN PELVIS WITH [...] Neck Secondary Malignant Neoplasm Bone (HCC) Other Sorority Mother Current Drug Therapy CT NECK SOFT TISSUE WITH IV CONTRAST RAD - Routine (most inpatients and all outpatients) 10/11/2023 7:40 AM CDT Squamous Cell Carcinoma Of Skin Of Scalp And Neck Secondary Malignant Neoplasm Bone (HCC) Other Sorority Mother Current Drug Therapy THYROID FUNCTION CASCADE, S Routine 10/11/2023 6:41 AM CDT Other Sorority Mother Current Drug Therapy Secondary Malignant Neoplasm Bone (HCC) Squamous Cell Carcinoma Of Skin Of Scalp And Neck BILIRUBIN DIRECT, S/P Routine 10/11/2023 6:41 AM CDT Other Sorority Mother Current Drug Therapy Secondary Malignant Neoplasm Bone (HCC) Squamous Cell Carcinoma Of Skin Of Scalp And Neck COMPREHENSIVE METABOLIC PANEL, S/P Routine 10/11/2023 6:41 AM CDT Other Sorority Mother Current Drug Therapy Secondary Malignant Neoplasm Bone (HCC) Squamous Cell Carcinoma Of Skin Of Scalp And Neck CBC WITH DIFFERENTIAL, B Routine 10/11/2023 6:41 AM CDT Other Fdc [...] RADIOPHARMACEUTICAL/MEDS: Route: intravenous fludeoxyglucose F 18 injection HALFWAY (FDG F-18),9.94 millicurie TECHNIQUE: ??F-18 FDG PET/CT [...] RADIOPHARMACEUTICAL/MEDS: Route: intravenous fludeoxyglucose F 18 injection HALFWAY (FDG F-18),9.94 millicurie TECHNIQUE: F-18 FDG PET/CT [...] direct visualization isrecommended. Mc Mcknight M.D., Ph.D. [facility] Final Result * MR Brain [...] also demonstrated slow progressive growth since 2022 ([id number], image 174). Tiny enhancing dermal focus in the high midline posterior scalp ([id number], image 77) is unchanged since the prior [...] PROCEDURES Fi nal Result * Thyroid Function [place] (01/01/2024 4:22 PM CDT) Only the most recent of5 resultswithin the time period is included. TSH, Sensitive 2.3 0.3 - 4.2 mIU/L 01/01/2024 5:24 PM CDT DTL Blood (Blood, Venous) 01/01/2024 4:22 PM CDT 01/01/2024 4:59 PM CDT Blanche Monzon P.A.-C. M.S. LAB BLOOD ADD-ON Final Result [facility] [address] [place] [address], [facility] DTL [facility] [address] [place] [address] * (ABNORMAL) CBC with Differential, Blood (01/01/2024 [...] CDT 01/01/2024 4:35 PM CDT Blanche Monzon P.A.-C., M.S. LAB BLOOD ADD-ON Final Result Performing Organization Address [facility] de Phone Number [facility] [address] [place] [address], [facility] [address] [place], [place] [id number] [place] [address] [address] [place] [address] * Bilirubin, Direct (01/01/2024 4:22 PM CDT) Only the most recent of5 resultswithin the time period is included. Bilirubin, Direct, S <0.2 0.0 - 0.3 mg/dL 01/01/2024 5:24 PM CDT DTL Blood (Blood, Venous) 01/01/2024 4:22 PM CDT 01/01/2024 4:59 PM CDT Blanche Monzon P.A.-C., M.S. LAB BLOOD ADD-ON Final Result Performing Organization Address City/[facility]/ZIP Co de Phone Number [facility] [address] [place] [address], [facility] [address] [place] [address] * Comprehensive Metabolic Panel (01/01/2024 4:22 PM [...] P.A.-C., M.S. LAB BLOOD ADD-ON Final Result [facility] [address] [place] [address], [facility] DTL [facility] [address] [place] [address] * [facility] Research, Blood (01/01/2024 4:21 PM CDT) Number of Specimens 6 01/01/2024 4:21 PM CDT HSS Blood (Blood, Venous) 01/01/2024 4:21 PM CDT 01/01/2024 4:21 PM CDT us Gertrudis Marks M.D., Ph.D. LAB RESEARCH NO RESULT ROUTING Final Result [facility] [address] [place] [address], [facility] HSS [facility] [address] [place] [address] * DX Ankle Bilateral 3+ Views (12/12/2023 [...] NON RAD IMAGING PROCE DURES Final Result IIIA NA * KS ARTHCS ASP/INJ MJR JT W US (11/22/2023 10:00 AM CDT) Narrative Remigio Reese M.D. - 11/22/2023 10:00 AM CDT Remigio Reese M.D. ? 11/22/2023 12:04 PM Knee site- R knee joint : aspiration and diagnostic-therapeutic injection Performed by: Ivis Dubois M.D. Authorized by: Tammie Qiu APRN, C.N.P. ?? Care team members present 1. [...] Peptide Antibodies, IgG (11/21/2023 9:59 AM CDT) Pathologist [facility] Cyclic Citrullinated Peptide Ab, S <15.6 <20.0 (Negative) U 11/21/2023 6:45 PM CDT [facility] Comment: Interpretation: Antibodies to CCP not detected. If clinical symptoms are strongly indicative for rheumatoid arthritis, suggest testing for Rheumatoid Factor, S (RHUT) and, if positive, Rheumatoid Factor Panel, S (RFPN), which includes differentiation of rheumatoid factor IgM and IgA isotypes. Blood (Blood, Venous) 11/21/2023 9:59 AM CDT 11/21/2023 1:12 PM CDT Antolin Mclaughlin M.D. LAB BLOOD ADD-ON Final Result [facility] [address] [place] [address] [facility] [address] [place] [address] * (ABNORMAL) Sedimentation Rate (11/21/2023 9:59 AM CDT) Pathologist [facility] Sedimentation Rate, B 30(H) 3 - 28 mm/h 11/21/2023 11:31 AM CDT DT Blood (Blood, Venous) 11/21/2023 9:59 AM CDT 11/21/2023 10:20 AM CDT Antolin Mclaughlin M.D. LAB BLOOD ADD-ON Final Result Performing Organization Address City/[facility]/ZIP Co de Phone Number [facility] [address] [place] [address], [facility] [address] [place] [address] * Rheumatoid Factor (11/21/2023 9:59 AM CDT) [facility] Rheumatoid Factor, S <15 <15 IU/mL 11/21/2023 1:30 PM CDT [facility] Blood (Blood, Venous) 11/21/2023 9:59 AM CDT 11/21/2023 12:57 PM CDT Antolin Mclaughlin M.D. LAB BLOOD ADD-ON Final Result [facility] [address] [place] [address] [facility] [address] [place] [address] * CRP (C-Reactive Protein) (11/21/2023 9:59 AM CDT) C-Reactive Protein (CRP), S <3.0 <5.0 mg/L 11/21/2023 11:10 AM CDT DTL Blood (Blood, Venous) 11/21/2023 9:59 AM CDT 11/21/2023 10:35 AM CDT us Antolin Mclaughlin M.D. LAB BLOOD ADD-ON Final Result [facility] [address] [place] [address], [facility] [address] [place] [address] * Uric Acid (11/21/2023 9:59 AM CDT) Uric Acid, S 3.3 2.7 - 6.1 mg/dL 11/21/2023 11:10 AM CDT DT Blood (Blood, Venous) 11/21/2023 9:59 AM CDT 11/21/2023 10:35 AM CDT us Antolin Mclaughlin M.D. LAB BLOOD ADD-ON Final Result Performing Organization Address City/[facility]/ZIP Co de Phone Number [facility] [address] [place] [address], [facility] [address] [place] [address] * Crystal Identification, Body Fluid (11/14/2023 2:50 PM CDT) Fluid Type Synovial Fluid, Right Knee 11/14/2023 9:56 PM CDT [facility] Crystal ID None seen None seen 11/14/2023 9:56 PM CDT [facility] Fluid 11/14/2023 2:50 PM CDT 11/14/2023 5:58 PM CDT us Antolin Mclaughlin M.D. LAB BODY FLUIDS AND ST OOLS ORDERABLES Final Result [facility] [address] [place] [address], [facility] [address] [place] [address] * Cell Count and Differential, Body Fluid [...] This test has been modified from the cultural anthropology professor's instructions. Its performance characteristics were determined by [facility] in a manner consistent with CLIA [...] FLUIDS AND ST OOLS ORDERABLES Final Result [facility] [address] [place] [address], [facility] [address] [place] [address] * KS ARTHCS ASP/INJ MJR JT W US (11/14/2023 [...] fellow participated in the procedure, and the healthcare economics consultant was present for the entire procedure. Antolin Mclaughlin M.D. PROCEDURE/MINOR SURGIC AL ORDERABLES [...] Antolin Mclaughlin M.D. IMG DIAGNOSTIC IMAGING PROCEDURES Edited Result - Final * Folate (11/01/2023 11:39 AM CDT) Folate, S >20.0 >=4.0 mcg/L 11/01/2023 12:47 PM CDT DTL Blood (Blood, Venous) 11/01/2023 11:39 AM CDT 11/01/2023 12:00 PM CDT Tammie Hooks M.D., Ph.D. LAB BLOOD ADD-ON Ciara l Result Performing Organization Address [facility] Co de Phone Number [facility] 200 [place] [address] * Vitamin B12 Assay (11/01/2023 11:39 AM [...] 11:39 AM CDT 11/01/2023 12:00 PM CDT Result [facility] Tammie Hooks M.D., Ph.D. LAB BLOOD ADD-ON Ciara l Result Performing Organization Address [facility] de Phone Number [facility] [address] [address] * US venous LE RT-Outside US (10/25/2023 [...] PROCEDURES Final R esult Performing Organization Address [facility] Co de Phone Number IIIA NA * XR knee RT 3V-Outside Skeletal [...] Provider Not In System IMG DIAGNOSTIC IMAGING [place] OCEDURES Final Result IIIA NA * CT Abdomen Pelvis with IV [...] metastatic disease in the abdomen or pelvis. us Blanceh Monzon P.A.-C., M.S. IM CT PROCEDURE S Final Result * CT [...] disease. Blanche Monzon P.A.-C., M.S. IMG CT PROCEDURE S Final Result * CT Neck Soft Tissue with IV Contrast (10/11/2023 7:40 AM CDT) Anatomical Region Laterality Modality Neck, Neuroradiology [facility] , Neuroradiology [facility], Neuroradiology [facility] N/A Computed Tomography, Compute d Tomography [...] mass. Blanche Monzon P.A.-C. M.S. 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
--- OUTSIDE RECORDS SUMMARY | 2024-01-05 13:19 | XMS_ITS | Encounter Summary ---
Author Organization [facility] Address [address] [place] [address] Care Team Providers Care Special Class Welder Name Role Phone Elsewhere, Pcp Primary Care Provider Unavailabl e Reason for Referral * MRI/CAT/PET Scan (Routine) - Closed Specialty Diagnoses / Procedures Referred By Ryan cronin Referred To Contact Radiology Diagnoses Squamous Cell Carcinoma Of Skin Of Scalp And Neck Procedures MR Brain without and with IV Contrast Tammie Hooks M.D., Ph.D. 200 [place] [address] Phone: tel: fax: [facility] Referral ID Status Reason Start Date Expiration Date Visits Re quested Visits Authorized [id number] Closed 04/14/2023 04/13/2024 1 1 Reason for Visit * MRI/CAT/PET Scan (Routine) - Closed Specialty Diagnoses / Procedures Referred By Ryan cronin Referred To Contact Radiology Diagnoses Squamous Cell Carcinoma Of Skin Of Scalp And Neck Procedures MR Brain without and with IV Contrast Tammie Hooks M.D., Ph.D. 200 [place] [address] Phone: tel: fax: [facility] Referral ID Status Reason Start Date Expiration Date Visits Re quested Visits Authorized [id number] Closed 04/14/2023 04/13/2024 1 1 Encounter Details Date Type Department Care Team (Latest Contact Info) Description 01/01/2024 4:25 PM CDT - 01/01/2024 11:59 PM CDT Hospital Encounter Department of Radiology, [facility] in [place], [place] [address] [place] [address] Tammie Hooks M.D., Ph.D. [address] [place] [address] Squamous Cell Carcinoma Of Skin Of Scalp [...] week 01/24/2022 How often do you attend [facility] or mu-ism services? Never 01/24/2022 Do you belong to any clubs o r organizations such as moravian groups, unions, fraternal or athletic groups, or [...] and heating? Not hard at all 09/02/2022 [facility] [place] of Occupat ional Health - Occupational Stress [...] your living situation today? [facility] 02/16/2023 Education Answer Date Recorded What is the highest level of school you have completed or the highest degree you have received? Bachelor's degree (e.g., BA, AB, BS) 01/24/2022 Comments No Sex and Gender Information Value Date Recorded Sex Assigned at Female 01/24/2022 7:37 PM TOP EDGE BEVELER Legal Sex Female 10:28 AM CDT Gender Identity Female 01/24/2022 7:37 PM TOP EDGE BEVELER Sexual Orientation Straight 01/24/2022 7: 37 PM TOP EDGE BEVELER documented as of this encounter Medications at Time of Discharge alendronate (Fosamax) 70 mg tablet Take 1 tablet by mouth every 7 (seven) days. 11/22/2023 CALCIUM ORAL Take 1 tablet by mouth daily. cholecalciferol (Vitamin D3) 50 mcg (2,000 Unit) capsule Take 1 capsule by mouth daily. 10/18/2023 cholecalciferol (Vitamin D3) 50 mcg (2,000 Unit) tablet Take 1 tablet by mouth daily. erythromycin (Romycin) 5 mg/gram (0.5 %) ophthalmic ointment Apply 1 cm to left eye at bedtime. 3.5 g 1 11/10/2023 hydrocortisone 2.5 % ointmentIndicati ons:Dermatitis Mix with the ketoconazole and apply twice daily for up to 2 weeks as a time for flares of rash involving the buttocks, under the breast, or on the face. 30 g 11 03/23/2023 ketoconazole (NIZORAL) 2 % creamIndications :Dermatitis Seborrheic Apply 1 Application topically 2 (two) [...] by mouth daily. 90 tablet 3 08/16/2023 5 MAGNESIUM ORAL Take 1 tablet by mouth daily. methylcellulose, laxative, (CITRUCEL) 500 mg tablet Take by mouth daily. Heaping tablespoon in water once daily multivitamin tablet Take 1 tablet by mouth daily. Currently has One-A-Day Men's 50 Plus. rosuvastatin (CRESTOR) 10 mg tablet Take 10 mg by mouth at bedtime. tacrolimus (Protopic) 0.1 % ointment Apply 1 Application topically 2 (two) times a day. Apply approximately 2-4 grams to affected areas. 100 g 11 11/10/2023 ubiquinone (COENZYME Q10) 100 mg tablet Take 100 mg by mouth daily. 12/22/2021 UNABLE TO FIND Take 1 each by mouth daily. Med Name: Collagen powder, 1 scoop every morning with cereal documented as of this encounter Plan of Treatment Upcoming Encounters Date Type Department Care Team (Late st Contact Info) Description 01/09/2024 10:15 AM TOP EDGE BEVELER Clinical Communication Virtual Review in [address] [phone] 01/11/2024 2:00 PM TOP EDGE BEVELER Appointment Department of Radiation Oncology in [address] [phone] Tammie Hooks M.D., Ph.D. [address] [place] [phone] 01/17/2024 9:00 AM TOP EDGE BEVELER Clinical Communication Virtual Review in [address] [phone] 01/19/2024 1:00 PM TOP EDGE BEVELER Comprehensive Visit Department of Neurology in [address] [phone] Kory Alas M.B., Ch.B. [address] [place] [phone] 02/26/2024 9:30 AM TOP EDGE BEVELER Lab Department of Laboratory Medicine and Pathology, [facility] in [place], [place] [address] [place] [address] Mc Mcknight M.D., Ph.D. [address] [place] [phone] 02/26/2024 11:30 AM TOP EDGE BEVELER Appointment Department of Radiology, [facility] in [place], [place] [address] [place] [phone] Mc Mcknight M.D., Ph.D. [address] [place] [phone] 02/26/2024 3:00 PM TOP EDGE BEVELER Appointment Department of Radiology, [facility] in [place], [place] [address] [place] [phone] Mc Mcknight M.D., Ph.D. [address] [place] [phone] 02/27/2024 1:40 PM TOP EDGE BEVELER Office Visit Department of Oncology in [place], [place] [address] [place] [phone] Mc Mcknight M.D., Ph.D. [address] [place] [phone] documented as of this encounter Procedures Procedure Name Priority Date/Time Associated Diagnosis Comments MR BRAIN WITHOUT AND WITH IV CONTRAST RAD - Routine (most inpatients and all outpatients) 01/01/2024 6:15 PM CDT Squamous Cell Carcinoma Of Skin Of Scalp And Neck documented in this encounter Results * MR Brain without and with IV Contrast (01/01/2024 6:15 PM CDT) Anatomical Region Laterality Modality Head, [...] also demonstrated slow progressive growth since 2022 ([id number], image 174). Tiny enhancing dermal focus in the high midline posterior scalp ([id number], image 77) is unchanged since the prior [...] Ph.D. IMG MRI PROCEDURES Fi nal Result documented in this encounter Visit Diagnoses Diagnosis Squamous Cell Carcinoma Of Skin Of Scalp And Neck documented in this encounter Administered Medications Inactive Administered Medications - up to 3 most recent administrations Medication Order MAR Action Action Date Dose Rate Site gadobutrol injection 0.01-30 mL (Gadavist) 0.01-30 mL, intravenous, Once in imaging, contrast, Starting on 01/01/24 at 1718, For 1 dose, Imaging Protocol Orders, Dose per Radiant Medication Guidelines Intrathecal doses greater than 0.25 mL not recommended. Given 01/01/2024 6:04 PM CDT 6 mL documented in this encounter Care Teams Special Class Welder Relationship Specialty Start Date End Date Elsewhere, Pcp PCP - General Family Medicine 02/01/22 documented as of this encounter
--- OUTSIDE RECORDS SUMMARY | 2024-01-05 13:19 | XMS_ITS | Encounter Summary ---
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 [address] [place] [address] Phone: tel: fax: [facility] Referral ID Status Reason Start Date Expiration Date Visits Re quested Visits Authorized [id number] Closed 11/21/2023 11/20/2024 1 1 Reason for Visit * MRI/CAT/PET Scan (Routine) - Closed Specialty Diagnoses / Procedures Referred By Ryan cronin Referred To Contact Diagnoses Other Transport Tank Technician Current Drug Therapy Secondary Malignant Neoplasm Bone (HCC) Squamous Cell Carcinoma Of Skin Of Scalp And Neck Procedures PET CT Skull to Thigh FDG Mc Mcknight M.D., Ph.D. 200 [place] [address] Phone: tel: fax: [facility] Referral ID Status Reason Start Date Expiration Date Visits Re quested Visits Authorized [id number] Closed 11/21/2023 11/20/2024 1 1 Encounter Details Date Type Department Care Team (Latest Contact Info) Description 01/02/2024 6:29 AM CDT - 01/02/2024 11:59 PM CDT Hospital Encounter Department of Radiology, [facility] in [place], [place] [address] [place] [address] Mc Mcknight M.D., Ph.D. 200 [place] [address] Other Transport Tank Technician Current Drug Therapy; Secondary Malignant Neoplasm Bone [...] any clubs o r organizations such as bahai groups, unions, fraternal or athletic groups, or [...] heating? Not hard at all 09/02/2022 [facility] - Occupational Stress Questionnaire Answer Date Recorded [...] your living situation today? I have a [facility] place to live 02/16/2023 Education Answer Date Recorded What is the highest level of school you have completed or the highest degree you have received? Bachelor's degree (e.g., BA, AB, BS) 01/24/2022 Comments No Sex and Gender Information Value Date Recorded Sex Assigned at Female 01/24/2022 7:37 PM OLERICULTURIST Legal Sex Female 10:28 AM CDT Gender Identity Female 01/24/2022 7:37 PM OLERICULTURIST Sexual Orientation Straight 01/24/2022 7: 37 PM OLERICULTURIST documented as of this encounter Medications at [...] st Contact Info) Description 01/09/2024 10:15 AM OLERICULTURIST Clinical Communication Virtual Review in [address] [phone] 01/11/2024 2:00 PM OLERICULTURIST Appointment Department of Radiation Oncology in [place], [place] [address] [place] [phone] Tammie Hooks M.D., Ph.D. [address] [place] [phone] 01/17/2024 9:00 AM OLERICULTURIST Clinical Communication Virtual Review in [place], [place] 200 [place] [address] 01/19/2024 1:00 PM OLERICULTURIST Comprehensive Visit Department of Neurology in [place], [place] [address] [place] [phone] Kory Alas M.B., Ch.B. [address] [place] [phone] 02/26/2024 9:30 AM OLERICULTURIST Lab Department of Laboratory Medicine and Pathology, [facility] in [place], [place] [address] [place] [phone] Mc Mcknight M.D., Ph.D. [address] [place] [phone] 02/26/2024 11:30 AM OLERICULTURIST Appointment Department of Radiology, [facility] in [place], [place] [address] [place] [phone] Mc Mcknight M.D., Ph.D. [address] [place] [phone] 02/26/2024 3:00 PM OLERICULTURIST [facility] [place] [place] [address] [place] [phone] Mc Mcknight M.D., Ph.D. [address] [place] [phone] 02/27/2024 1:40 PM OLERICULTURIST Office Visit Department of Oncology in [place], [place] [address] [place] [phone] Mc Mcknight M.D., Ph.D. 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 Mc Mcknight M.D., Ph.D. [facility] Final Result documented in this encounter Visit Diagnoses Diagnosis Other Fpc Current Drug Therapy 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 Administered Medications Inactive Administered Medications - up to 3 most recent administrations Medication Order MAR Action Action Date Dose Rate Site fludeoxyglucose F 18 injection HALF-WAY (FDG F-18) 4.5-16.5 millicurie, intravenous, Once, On Tu01/02/24 at 0715, For 1 dose, Imaging Protocol Orders Given 01/02/2024 6:49 AM CDT 9.94 millicuries documented in this encounter Care Teams Foam Tank Laminator Relationship Specialty Start Date End Date Elsewhere, Pcp PCP - General Family Medicine 02/01/22 documented as of this encounter
--- OUTSIDE RECORDS SUMMARY | 2024-01-05 13:19 | XMS_ITS | Encounter Summary ---
Author Organization [facility] Address [address] [place] [address] Care Team Providers Care Color Shop Helper Name Role Phone Elsewhere, Pcp Primary Care Provider Unavailabl e Reason for Visit * Outpatient (Routine) - Authorized Specialty Diagnoses / Procedures Referred By Contgiana t Referred To Contact Research Diagnoses Secondary Malignant Neoplasm Bone (HCC) Gertrudis Marks M.D., Ph.D. 200 [place] [address] Phone: tel: fax: [facility] Referral ID Status Reason Start Date Expiration Date V isits Requested Visits Authorized [id number] Authorized 12/12/2023 06/12/2025 1 1 Encounter Details Date Type Department Care Team (Latest Contact Info) Description 01/01/2024 3:30 PM CDT Clinical Support - [facility] Division of Rheumatology in [place], [place] 200 [place] [phone] Gertrudis Marks M.D., Ph.D. [address] [place] [phone] Tahira Lujan Secondary Malignant Neoplasm Bone (HCC) Social History [...] hard at all 09/02/2022 [facility] [place] of Occupat ional Health - Occupational Stress [...] your living situation today? I have a [facility] place to live 02/16/2023 Education Answer Date Recorded What is the highest level of school you have completed or the highest degree you have received? Bachelor's degree (e.g., BA, AB, BS) 01/24/2022 Comments No Sex and Gender Information Value Date Recorded Sex Assigned at Female 01/24/2022 7:37 PM WELDER ASSISTANT Legal Sex Female 10:28 AM CDT Gender Identity Female 01/24/2022 7:37 PM WELDER ASSISTANT Sexual Orientation Straight 01/24/2022 7: 37 PM WELDER ASSISTANT documented as of this encounter Plan of Treatment Upcoming Encounters Date Type Department Care Team (Late st Contact Info) Description 01/09/2024 10:15 AM WELDER ASSISTANT Clinical Communication Virtual Review in [place], [place] 200 [place] [phone] 01/11/2024 2:00 PM WELDER ASSISTANT Appointment Department of Radiation Oncology in [address] [phone] Tammie Hooks M.D., Ph.D. [address] [place] [phone] 01/17/2024 9:00 AM WELDER ASSISTANT Clinical Communication Virtual Review in [address] [phone] 01/19/2024 1:00 PM WELDER ASSISTANT Comprehensive Visit Department of Neurology in [address] [phone] Kory Alas M.B., Ch.B. [address] [place] [phone] 02/26/2024 9:30 AM WELDER ASSISTANT Lab Department of Laboratory Medicine and Pathology, [facility] in [address] [phone] Mc Mcknight M.D., Ph.D. [address] [place] [phone] 02/26/2024 11:30 AM WELDER ASSISTANT Appointment Department of Radiology, [facility] in [place], [place] [address] [place] [phone] Mc Mcknight M.D., Ph.D. [address] [place] [phone] 02/26/2024 3:00 PM WELDER ASSISTANT Appointment Department of Radiology, [facility] in [place], [place] [address] [place] [phone] Mc Mcknight M.D., Ph.D. [address] [place] [phone] 02/27/2024 1:40 PM WELDER ASSISTANT Office Visit Department of Oncology in [place], [place] [address] [place] [phone] Mc Mcknight M.D., Ph.D. [address] [place] [phone] documented as of this encounter Visit Diagnoses Diagnosis Secondary Malignant Neoplasm Bone (HCC) documented in this encounter Care Teams Color Shop Helper Relationship Specialty Start Date End Date Elsewhere, Pcp PCP - General Family Medicine 02/01/22 documented as of this encounter
--- OUTSIDE RECORDS SUMMARY | 2024-01-05 13:19 | XMS_ITS ---
Author Organization [facility] Address [address] [place] [address] Care Team Providers Care Hand Scraper Name Role Phone Unavailable Unavailable Unavailable Surgery Details Not on file Complications Check Surgery Details section. Procedure Estimated Blood Loss Check Surgery Details section. Procedure Findings Check Surgery Details section. Procedure Specimens Taken Check Surgery Details section.
--- OUTSIDE RECORDS SUMMARY | 2024-01-05 13:19 | XMS_ITS | Encounter Summary ---
Author Organization [facility] Address [address] [place] [address] Care Team Providers Care Client Support Administrator Name Role Phone Elsewhere, Pcp Primary Care Provider Unavailabl e Reason for Referral * Outpatient (Routine) - Closed Specialty Diagnoses / Procedures Referred By Ryan t Referred To Contact Diagnoses Arthritis Inflammatory (HCC) Procedures DX Ankle Bilateral 3+ Views DX Ankle Left 3+ Views Antolin Mclaughlin M.D. 200 [place] [address] Phone: tel: fax: [facility] Referral ID Status Reason Start Date Expiration Date Visits Re quested Visits Authorized [id number] Closed 11/17/2023 11/16/2024 1 1 Reason for Visit * Outpatient (Routine) - Closed Specialty Diagnoses / Procedures Referred By Contac t Referred To Contact Diagnoses Arthritis Inflammatory (HCC) Procedures DX Ankle Bilateral 3+ Views DX Ankle Left 3+ Views Antolin Mclaughlin M.D. 200 [place] [address] Phone: tel: fax: [facility] Referral ID Status Reason Start Date Expiration Date Visits Re quested Visits Authorized [id number] Closed 11/17/2023 11/16/2024 1 1 Encounter Details Date Type Department Care Team (Latest Contact Info) Description 12/12/2023 10:13 AM CDT - 12/12/2023 11:59 PM CDT Hospital Encounter Department of Radiology, [facility], in [place], [place] [address] [place] [address] Antolin Mclaughlin M.D. [address] [place] [address] Arthritis Inflammatory (HCC) Discharge Disposition: Home or [...] often do you attend chur ch or alevism services? Never 01/24/2022 Do you belong to [...] and heating? Not hard at all 09/02/2022 [facility] [place] of Occupat ional Health - Occupational Stress [...] Sex Assigned at Female 01/24/2022 7:37 PM BULK PIGMENT REDUCER Legal Sex Female 10:28 AM CDT Gender Identity Female 01/24/2022 7:37 PM BULK PIGMENT REDUCER Sexual Orientation Straight 01/24/2022 7: 37 PM BULK PIGMENT REDUCER documented as of this encounter Medications at [...] st Contact Info) Description 01/09/2024 10:15 AM BULK PIGMENT REDUCER Clinical Communication Virtual Review in [address] [phone] 01/11/2024 2:00 PM BULK PIGMENT REDUCER Appointment Department of Radiation Oncology in [address] [phone] Tammie Hooks M.D., Ph.D. [address] [place] [phone] 01/17/2024 9:00 AM BULK PIGMENT REDUCER Clinical Communication Virtual Review in [address] [phone] 01/19/2024 1:00 PM BULK PIGMENT REDUCER Comprehensive Visit Department of Neurology in [address] [phone] Kory Alas M.B., Ch.B. [address] [place] [phone] 02/26/2024 9:30 AM BULK PIGMENT REDUCER Lab Department of Laboratory Medicine and Pathology, [facility], in [address] [phone] Mc Mcknight M.D., Ph.D. [address] [place] [phone] 02/26/2024 11:30 AM BULK PIGMENT REDUCER Appointment Department of Radiology, [facility] in [place], [place] [address] [place] [phone] Mc Mcknight M.D., Ph.D. [address] [place] [phone] 02/26/2024 3:00 PM BULK PIGMENT REDUCER Appointment Department of Radiology, [facility] in [place], [place] [address] [place] [phone] Mc Mcknight M.D., Ph.D. [address] [place] [phone] 02/27/2024 1:40 PM BULK PIGMENT REDUCER Office Visit Department of Oncology in [address] [phone] Mc Mcknight M.D., Ph.D. [address] [place] [phone] documented as of this encounter Procedures Procedure Name Priority Date/Time Associated Diagnosis Comments DX ANKLE BILATERAL 3+ VIEWS RAD - Routine (most inpatients and all outpatients) 12/12/2023 10:21 AM CDT Arthritis Inflammatory (HCC) documented in this encounter Results * DX Ankle Bilateral 3+ Views (12/12/2023 [...] theposterior left calcaneus. us Antolin Mclaughlin M.D. IM[facility]agi DIAGNOSTIC IMAGING PROCEDURES Final Result documented in this encounter Visit Diagnoses Diagnosis Arthritis Inflammatory (HCC) documented in this encounter Care Teams Client Support Administrator Relationship Specialty Start Date End Date Elsewhere, Pcp PCP - General Family Medicine 02/01/22 documented as of this encounter
--- NOTE | 2024-01-05 13:20 | CRLHL7_ITS ---
For Patients: As a result of the Century Cures Act, medical imaging exams and procedure reports are released immediately into your electronic medical record. You may view this report before your referring provider. If you have questions, please contact your health care provider. BILATERAL SCREENING MAMMOGRAM WITH COMPUTER-AIDED DETECTION AND TOMOSYNTHESIS TECHNIQUE: CC and MLO views were obtained. These mammographic images have been obtained using full-field digital technique. These mammographic images were interpreted with the benefit of computer-aided detection. Breast Tomosynthesis was used in this interpretation. COMPARISON FILM: 10/17/22, 05/17/21, 11/13/19. FINDINGS: There are scattered areas of fibroglandular density. IMPRESSION: There is no radiographic evidence for malignancy. ASSESSMENT: BI-RADS Category 2: Benign RECOMMENDATION: Routine screening mammogram in 1 year. A lay language report of this examination will be provided to the patient. Philip Fleming M.D. Diagnostic/Nuclear Medicine Radiologist [email or web address] LISA/frantz SP/Dictated by: Philip Fleming MD @ 01/10/2024 9:32:00 AM (Electronically Signed)
--- OUTSIDE RECORDS SUMMARY | 2024-01-05 13:20 | XMS_ITS | Encounter Summary ---
Author Organization [facility] Address [address] [place] [address] Care Team Providers Care Stoner Out Name Role Phone Elsewhere, Pcp Primary Care Provider Unavailabl e Reason for Referral * Outpatient (Routine) - Authorized Specialty Diagnoses / Procedures Referred By Contac t Referred To Contact Dermatology Karina Galloway M.D. [address] [place] [address] Phone: tel: fax: [facility] Referral ID Status Reason Start Date Expiration Date V isits Requested Visits Authorized [id number] Authorized 11/10/2023 05/11/2025 1 1 * Medication Prior Authorization - Closed Specialty Diagnoses / Procedures Referred By Contac t Referred To Contact Emily Bell M.D. [address] [place] [address] Phone: tel: fax: Referral ID Status Reason Start Date Expiration Date Visits Re quested Visits Authorized [id number] Closed 1 1 Reason for Visit * Outpatient (Routine) - Closed Specialty Diagnoses / Procedures Referred By Ryan cronin Referred To Contact Dermatology Patsy Lentz M.D. [address] [place] [address] Phone: tel: fax: [facility] Referral ID Status Reason Start Date Expiration Date Visits Re quested Visits Authorized [id number] Closed 04/14/2023 10/13/2024 1 1 Encounter Details Date Type Department Care Team (Late st Contact Info) Description 11/10/2023 8:00 AM CDT Office Visit Department of Dermatology in [place], [place] [address] [place] [phone] Emily Bell M.D. 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 Not hard at all 09/02/2022 [facility] [place] of Occupat ional Health - Occupational Stress [...] your living situation today? [facility] have a [facility] to live 02/16/2023 Education Answer Date Recorded What is the highest level of school you have completed or the highest degree you have received? Bachelor's degree (e.g., BA, AB, BS) 01/24/2022 Comments No Sex and Gender Information Value Date Recorded Sex Assigned at Female 01/24/2022 7:37 PM FORMSTONE FITTER Legal Sex Female 10:28 AM CDT Gender Identity Female 01/24/2022 7:37 PM FORMSTONE FITTER Sexual Orientation Straight 01/24/2022 7: 37 PM FORMSTONE FITTER documented as of this encounter Progress Notes * Emily Bell M.D. - 11/10/2023 8:00 AM CDT Correspondence to: Emily Bell M.D. Referring provider: Patsy Lentz M.D. This patient was seen and staffed with Dr. Galloway. SUBJECTIVE CHIEF COMPLAINT / REASON FOR VISIT History of NMSC. HISTORY OF PRESENT ILLNESS Ms. Veronica Guevara is a very pleasant 78 y.o. female who presents today for a skin cancer screening examination. Ms. Veronica Guevara has a history of nonmelanoma skin cancer. [facility] in April 2023 at which time he had biopsies of the left parietal scalp and left eyebrow that were thought to be most consistent with seborrheic dermatitis. 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 They are noted to have dermatitis of the gluteal cleft and recommended to increase strength of hydrocortisone 2.5% to triamcinolone 0.1% cream mixed with ketoconazole 2% cream and continue to apply barrier creams. It has been persistent so consideration of biopsy was recommended at nextvisit with possible culture for further evaluation if not improving. Today, she notes she has been using neomycin/poly/dexa drops only to the left eye. She is not sure if rash worsens with this. She uses ketoconazole mixed with hydrocortisone sporadically, about 3 times in last two weeks. She has also used CeraVe moisturizer which didn't help. She notes her buttocks rash still bothers her. She has used ketoconazole, hydrocortisone, and zinc oxide as well as triamcinolone. Triamcinolone helped slightly. She last used this months ago. She last used ketoconazole and hydrocortisone and ketoconazole a couple of days ago and uses sporadically.She uses zinc oxide almost every day. She notes neck is itchy. She continues to be on immunotherapy for SCC. Allergies Allergen Reactions Penicillins Other (see comments) Family History of allergy but has never taken herself. Patient tolerated Duricef Pollen Extracts Itching Sulfa (Sulfonamide Antibiotics) Other (see comments) MEDICAL HISTORY History nonmelanoma skin cancer SOCIAL HISTORY OBJECTIVE PHYSICAL EXAMINATION General: Awake, alert, in no acute distress, and with appropriate affect. Eyes: No scleral injection or icterus. No eyelid abnormalities. Skin: I have examined the scalp, face, neck, chest, abdomen, back, bilateral upper extremities, andbilateral lower extremities, and buttocks -Addison skin type 2 -the left forehead around the left eyebrow, fairly well-demarcated erythematous scaly plaque -involving the gluteal cleft, erythema and superficial erosion -no rash involving the neck -well-healed scar on the scalp with no evidence of recurrence of squamous cell carcinoma -Mild dermatoheliosis in sun exposed areas. -Primarily over the trunk and also on the extremities, there are scattered small brown round macules and papules; many of these are examined dermoscopically and reveal regular symmetric network and appear consistent with banal-appearing nevi. -Scattered waxy stuck brown-minor papules and plaques consistent with seborrheic keratoses. 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 Sun protection and sun avoidance were reviewed with the patient. Education was provided regarding skin self-examination, the warning signs and symptoms of skin cancer, and the proper use of sunscreens. Appropriate SPFsunscreen was recommended. I would recommend a full skin cancer screening examination with an appropriately trained clinician every year or sooner if any new concerns. #3 Banal-appearing nevi None of the patient's nevi reach the clinical threshold for biopsy. I recommend continued sun protection, self-skin examinations, and observation. Should any of the patient's nevi change in size, color, texture, or shape or develop symptoms such as itching or bleeding, I recommend a return visit for reassessment. #4 Erythematous and scaly plaque involving left eyebrow area This was biopsied at the last visit and most consistent with seborrheic dermatitis. Differential clinically today also includes psoriasis. Recommend tacrolimus 0.1% ointment bid. Also recommend trying to switch eye drops if possible but the rash does not involve the eyelid so may not be related to the eye drops. Can try erythromycin ointment at bedtime in place of this while she waits to talk with her eye doctor about this. Discussed she may have blurry vision from this so should do at bedtime. #5 Gluteal cleft erythema and erosion Differential includes irritant dermatitis vs psoriasis. She politely declines biopsy of this area today. Recommend clobetasol 0.05% ointment twice daily for 2 weeks then tacrolimus 1-2 times daily until next visit. Can continue using oxide. #6 Pruritus involving the neck without rash Could be due to radiation. She moisturizes frequently. Recommend CeraVe anti- itch cream has been times daily as needed. Could consider amitriptyline ketamine cream in the future if needed. All questions answered. PATIENT EDUCATION Ready to learn. No apparent learning barriers were identified. Learning preferences include listening. Explained diagnosis and treatment plan; patient/guardian of patient expressed understanding of the content. Emily Bell M.D. Dermatology Cosigned by Karina Galloway M.D. at 11/23/2023 12:21 PM CDT Associated attestation - Karina Galloway M.D. - 11/23/2023 12:21 PM CDT I saw and evaluated the patient, participating in the alexander portions of the service. I reviewed the resident/fellow???s note. I agree with the resident/fellow???s findings and plan. documented in this encounter Plan of Treatment Upcoming Encounters Date Type Department Care Team (Late st Contact Info) Description 01/09/2024 10:15 AM FORMSTONE FITTER Clinical Communication Virtual Review in [address] [phone] 01/11/2024 2:00 PM FORMSTONE FITTER Appointment Department of Radiation Oncology in [address] [phone] Tammie Hooks M.D., Ph.D. [address] [place] [phone] 01/17/2024 9:00 AM FORMSTONE FITTER Clinical Communication Virtual Review in [address] [phone] 01/19/2024 1:00 PM FORMSTONE FITTER Comprehensive Visit Department of Neurology in [address] [phone] Kory Alas M.B., Ch.B. [address] [place] [phone] 02/26/2024 9:30 AM FORMSTONE FITTER Lab Department of Laboratory Medicine and Pathology, [facility], in [address] [phone] Mc Mcknight M.D., Ph.D. [address] [place] [phone] 02/26/2024 11:30 AM FORMSTONE FITTER Appointment Department of Radiology, [facility], in [address] [place] [address] Mc Mcknight M.D., Ph.D. [address] [place] [phone] 02/26/2024 3:00 PM FORMSTONE FITTER Appointment Department of Radiology, [facility] in [place], [place] [address] [place] [address] Mc Mcknight M.D., Ph.D. [address] [place] [phone] 02/27/2024 1:40 PM FORMSTONE FITTER Office Visit Department of Oncology in [place], [place] [address] [place] [phone] Mc Mcknight M.D., Ph.D. 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
--- OUTSIDE RECORDS SUMMARY | 2024-01-05 13:20 | XMS_ITS | Encounter Summary ---
Author Organization [facility] Address [address] [place] [phone] Care Team Providers Care Division Engineer Name Role Phone Elsewhere, Pcp Primary Care Provider Unavailabl e Reason for Visit * Episode Based Medications (Routine) - Closed Specialty Diagnoses / Procedures Referred By Contac t Referred To Contact Diagnoses Other Escort Patients Current Drug Therapy Secondary Malignant Neoplasm Bone (HCC) Squamous Cell Carcinoma Of Skin Of Scalp And Neck Blanche Monzon P.A.-C., M.S. [address] [place] [phone] Phone: tel: fax: Department of Oncology in [place], [place] [address] [place] [address] Phone: tel: Referral ID Status Reason Start Date Expiration Date Visits Re quested Visits Authorized [id number] Closed 07/28/2023 07/27/2025 99 99 Encounter Details Date Type Department Care Team (Late st Contact Info) Description 11/01/2023 2:45 PM CDT Infusion Department of Oncology in [place], [place] [address] [place] [phone] Remigio Frey M.D., Ph.D. [address] [place] [phone] Squamous Cell Carcinoma Of Skin Of Scalp [...] How often do you attend chur or buddhism services? Never 01/24/2022 Do you [...] and heating? Not hard at all 09/02/2022 [facility] [place] of Occupat ional Health - Occupational Stress [...] Sex Assigned at Female 01/24/2022 7:37 PM LICENSING MANAGER Legal Sex Female 10:28 AM CDT Gender Identity Female 01/24/2022 7:37 PM LICENSING MANAGER Sexual Orientation Straight 01/24/2022 7: 37 PM LICENSING MANAGER documented as of this encounter Plan of Treatment Upcoming Encounters Date Type Department Care Team (Late st Contact Info) Description 01/09/2024 10:15 AM LICENSING MANAGER Clinical Communication Virtual Review in [address] [phone] 01/11/2024 2:00 PM LICENSING MANAGER Appointment Department of Radiation Oncology in [address] [phone] Tammie Hooks M.D., Ph.D. [address] [place] [phone] 01/17/2024 9:00 AM LICENSING MANAGER Clinical Communication Virtual Review in [address] [address] 01/19/2024 1:00 PM LICENSING MANAGER Comprehensive Visit Department of Neurology in [address] [phone] Kory Alas M.B., Ch.B. [address] [place] [phone] 02/26/2024 9:30 AM LICENSING MANAGER Lab Department of Laboratory Medicine and Pathology, [facility] in [place], [place] [address] [place] [phone] Mc Mcknight M.D., Ph.D. [address] [place] [phone] 02/26/2024 11:30 AM LICENSING MANAGER Appointment Department of Radiology, [facility], in [place], [place] [address] [place] [phone] Mc Mcknight M.D., Ph.D. [address] [place] [phone] 02/26/2024 3:00 PM LICENSING MANAGER Appointment Department of Radiology, [facility] in [place], [place] [address] [place] [address] Mc Mcknight M.D., Ph.D. [address] [place] [phone] 02/27/2024 1:40 PM LICENSING MANAGER Office Visit Department of Oncology in [place], [place] [address] [place] [phone] Mc Mcknight M.D., Ph.D. [address] [place] [phone] documented as of this encounter Visit Diagnoses Diagnosis Squamous Cell Carcinoma Of Skin Of Scalp And Neck- Primary Other Escort Patients Current Drug Therapy Secondary Malignant Neoplasm Bone [...] in-line or add-on 0.2-micron to 5-micron filter.Indications:Other Escort Patients Current Drug Therapy,Secondary Malignant Neoplasm Bone (HCC),Squamous Cell Carcinoma Of Skin Of Scalp And Neck New Bag 11/01/2023 3:09 PM CDT 350 mg 564 mL/hr documented in this encounter Care Teams Division Engineer Relationship Specialty Start Date End Date Elsewhere, Pcp PCP - General Family Medicine 02/01/22 documented as of this encounter
--- OUTSIDE RECORDS SUMMARY | 2024-01-05 13:20 | XMS_ITS | Encounter Summary ---
Author Organization [facility] Address [address] [place] [address] Care Team Providers Care Business Services Sales Representative Name Role Phone Elsewhere, Pcp Primary Care Provider Unavailabl e Reason for Referral * Outpatient (Routine) - Closed Specialty Diagnoses / Procedures Referred By Contac t Referred To Contact Diagnoses Effusion Knee Right Procedures PMR Peripheral injection/USGI (Procedure Only) Antolin Mclaughlin M.D. [address] [place] [address] Phone: tel: fax: [facility] Referral ID Status Reason Start Date Expiration Date Visits Re quested Visits Authorized [id number] Closed 11/13/2023 11/12/2024 1 1 Reason for Visit * Outpatient (Routine) - Closed Specialty Diagnoses / Procedures Referred By Contact Referred To Contact Physical Medicine and Rehabilitation Diagnoses 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) Other [facility] Current Drug Therapy Squamous Cell Carcinoma Of Skin Of Scalp And Neck Blanche Monzon P.A.-C., M.S. [address] [place] [address] Phone: tel: fax: [facility] Referral ID Status Reason Start Date Expiration Date Visits Re quested Visits Authorized [id number] Closed 11/01/2023 05/02/2025 1 1 Encounter Details Date Type Department Care Team (Latest Contact Info) Description 11/13/2023 10:00 AM CDT Comprehensive Visit Department of Physical Medicine and Rehabilitation in [place], [place] [address] [place] [phone] Antolin Mclaughlin M.D. [address] [place] [phone] Effusion Knee Right (Primary Dx); Malignant Neoplasm Of Neck Squamous Cell; Secondary Malignant Neoplasm Bone (HCC); Other [facility] Current Drug Therapy; Squamous Cell Carcinoma Of [...] week 01/24/2022 How often do you attend [facility] or druze services? Never 01/24/2022 Do you [...] heating? Not hard at all 09/02/2022 [facility] [place] of Occupat ional Health - Occupational Stress [...] your [facility] situation today? [facility] 02/16/2023 Education Answer Date Recorded What is the highest level of school you have completed or the highest degree you have received? 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 11/13/2023 10:19 AM CDT Cosigned by Antolin Mclaughlin M.D. at 11/13/2023 1:59 PM CDT * Antolin Mclaughlin M.D. - 11/13/2023 [...] st Contact Info) Description 01/09/2024 10:15 AM SHOOTER HELPER Clinical Communication Virtual Review in [address] [phone] 01/11/2024 2:00 PM SHOOTER HELPER Appointment Department of Radiation Oncology in [address] [address] Tammie Hooks M.D., Ph.D. [address] [place] [phone] 01/17/2024 9:00 AM SHOOTER HELPER Clinical Communication Virtual Review in [address] [phone] 01/19/2024 1:00 PM SHOOTER HELPER Comprehensive Visit Department of Neurology in [address] [phone] Kory Alas M.B., Ch.B. [address] [place] [phone] 02/26/2024 9:30 AM SHOOTER HELPER Lab Department of Laboratory Medicine and Pathology, [facility] in [place], [place] [address] [place] [address] Mc Mcknight M.D., Ph.D. [address] [place] [phone] 02/26/2024 11:30 AM SHOOTER HELPER Appointment Department of Radiology, [facility] in [place], [place] [address] [place] [phone] Mc Mcknight M.D., Ph.D. [address] [place] [phone] 02/26/2024 3:00 PM SHOOTER HELPER Appointment Department of Radiology, [facility] in [place], [place] [address] [place] [phone] Mc Mcknight M.D., Ph.D. [address] [place] [phone] 02/27/2024 1:40 PM SHOOTER HELPER Office Visit Department of Oncology in [place], [place] [address] [place] [phone] Mc Mcknight M.D., Ph.D. [address] [place] [phone] documented as of this encounter Results * [...] This test has been modified from the toll ticket clerk's instructions. Its performance characteristics were determined by [facility] in a manner consistent with CLIA requirements. This test has not been cleared or approved by the U.S. Food and Drug Administration. Neutrophils 52 % 11/14/2023 9:56 PM CDT [facility] Comment: ----REFERENCE VALUE---- Synovial: <25% Peritoneal: <25% Pleural: <25% Pericardial: <25% Lymphocytes 19 Synovial <75% % 11/14/2023 9:56 PM CDT [facility] Monocytes/Macropha ges 29 Synovial <70% % 11/14/2023 9:56 PM CDT [facility] Comment See Comment 11/15/2023 9:36 AM CDT [facility] Comment:No blasts or maligna nt cells seen. Reviewed by: Mago 11/15/2023 9:36 AM CDT [facility] Fluid (Synovial Fluid, Not Otherwise Specified) 11/14/2023 2:50 PM CDT 11/14/2023 5:58 PM CDT us Antolin Mclaughlin M.D. LAB BODY FLUIDS AND ST OOLS [place] [address], [place] [address] * AL ARTHCS ASP/INJ MJR JT W US (11/14/2023 [...] fellow participated in the procedure, and the [employer] consultant was present for the entire procedure. [...] femoral condyle. Antolin [facility] DI[facility]AG[facility] PROCEDURES Edited Result - Final documented in this encounter Visit Diagnoses Diagnosis Effusion Knee Right- Primary 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) Other [facility] Current Drug Therapy Squamous Cell Carcinoma Of Skin Of Scalp And Neck Effusion Knee Right Effusion Knee Right documented in this encounter Care Teams Business Services Sales Representative Relationship Specialty Start Date End Date Elsewhere, Pcp PCP - General Family Medicine 02/01/22 documented as of this encounter
--- OUTSIDE RECORDS SUMMARY | 2024-01-05 13:20 | XMS_ITS | Encounter Summary ---
Author Organization [facility] Address 200 [place] [address] Care Team Providers Care Bill Adjuster Name Role Phone Elsewhere, Pcp Primary Care Provider Unavailabl e Reason for Referral * Outpatient (Routine) - Closed Specialty Diagnoses / Procedures Referred By Contac t Referred To Contact Diagnoses Arthritis Inflammatory (HCC) Procedures DX Ankle Bilateral 3+ Views DX Ankle Left 3+ Views Antolin Mclaughlin M.D. 200 [place] [address] Phone: tel: fax: [facility] Referral ID Status Reason Start Date Expiration Date Visits Re quested Visits Authorized [id number] Closed 11/17/2023 11/16/2024 1 1 * Outpatient (Routine) - Closed Specialty Diagnoses / Procedures Referred By Contac t Referred To Contact Rheumatology Diagnoses Arthritis Inflammatory (HCC) Antolin Mclaughlin M.D. [address] [place] [address] Phone: tel: fax: [facility] Referral ID Status Reason Start Date Expiration Date V isits Requested Visits Authorized [id number] Closed Specialty Services Required 11/17/2023 05/18/2025 1 1 Encounter Details Date Type Department Care Team (Late st Contact Info) Description 11/17/2023 Orders Only Department of Physical Medicine and Rehabilitation in [place], [place] [address] [place] [address] Antolin Mclaughlin M.D. [address] [place] [address] Arthritis Inflammatory (HCC) (Primary Dx) Social History Tobacco Use [...] often do you attend chur ch or tenriism services? Never 01/24/2022 Do you belong to [...] and heating? Not hard at all 09/02/2022 [facility] of Occupat ional [facility] - Occupational Stress Questionnaire Answer Date [...] Sex Assigned at Female 01/24/2022 7:37 PM CHAINMAN Legal Sex Female 10:28 AM CDT Gender Identity Female 01/24/2022 7:37 PM CHAINMAN Sexual Orientation Straight 01/24/2022 7: 37 PM CHAINMAN documented as of this encounter Plan of Treatment Upcoming Encounters Date Type Department Care Team (Late st Contact Info) Description 01/09/2024 10:15 AM CHAINMAN Clinical Communication Virtual Review in [address] [phone] 01/11/2024 2:00 PM CHAINMAN Appointment Department of Radiation Oncology in [address] [phone] Tammie Hooks M.D., Ph.D. [address] [place] [phone] 01/17/2024 9:00 AM CHAINMAN Clinical Communication Virtual Review in [address] [phone] 01/19/2024 1:00 PM CHAINMAN Comprehensive Visit Department of Neurology in [address] [phone] Kory Alas M.B., Ch.B. [address] [place] [phone] 02/26/2024 9:30 AM CHAINMAN Lab Department of Laboratory Medicine and Pathology, [facility], in [place], [place] [address] [place] [phone] Mc Mcknight M.D., Ph.D. [address] [place] [phone] 02/26/2024 11:30 AM CHAINMAN Appointment Department of Radiology, [facility] in [place], [place] [address] [place] [address] Mc Mcknight M.D., Ph.D. [address] [place] [phone] 02/26/2024 3:00 PM CHAINMAN Appointment Department of Radiology, [facility] in [place], [place] [address] [place] [phone] Mc Mcknight M.D., Ph.D. [address] [place] [phone] 02/27/2024 1:40 PM CHAINMAN Office Visit Department of Oncology in [place], [place] [address] [place] [phone] Mc Mcknight M.D., Ph.D. [address] [place] [phone] Scheduled Referrals Name Type Priority Associated Diagnoses Orde r Schedule Rheumatology - General consult (clinic) Outpatient Referral Routine Arthritis Inflammatory (HCC) Expected: 11/17/2023, Expires: 02/15/2025 documented as of this encounter Results * DX Ankle Bilateral [...] IMG DIAGNOSTIC IMAGING PROCEDURES Final Result * Uric Acid (11/21/2023 9:59 AM CDT) Pathologist [facility] Uric Acid, S 3.3 2.7 - 6.1 mg/dL 11/21/2023 11:10 AM CDT DT Blood (Blood, Venous) 11/21/2023 9:59 AM CDT 11/21/2023 10:35 AM CDT Antolin Mclaughlin M.D. LAB BLOOD ADD-ON Final Result Performing Organization Address [facility] Co de Phone Number [facility] [address] [place] [address], [facility] [place] [address] * Cyclic Citrullinated Peptide Antibodies, IgG (11/21/2023 9:59 AM CDT) Pathologist [facility] Cyclic Citrullinated Peptide Ab, S <15.6 <20.0 (Negative) U 11/21/2023 6:45 PM CDT [facility] Comment: Interpretation: Antibodies to CCP not detected. If clinical symptoms are strongly indicative for rheumatoid arthritis, suggest testing for Rheumatoid Factor, S (RHUT) and, if positive, Rheumatoid Factor Panel, S (RFPN), which includes differentiation of rheumatoid factor IgM and IgA isotypes. Blood (Blood, Venous) 11/21/2023 9:59 AM CDT 11/21/2023 1:12 PM CDT Antolin Mclaughlin M.D. LAB BLOOD ADD-ON Final Result [facility] [address] [place] [address] [facility] [address] [place] [address] * Rheumatoid Factor (11/21/2023 9:59 AM CDT) Rheumatoid Factor, S <15 <15 IU/mL 11/21/2023 1:30 PM CDT [facility] Blood (Blood, Venous) 11/21/2023 9:59 AM CDT 11/21/2023 12:57 PM CDT us Antolin Mclaughlin M.D. LAB BLOOD ADD-ON Final Result [facility] [address] [place] [address] [facility] [address] [place] [address] * (ABNORMAL) Sedimentation Rate (11/21/2023 9:59 AM CDT) Pathologist [facility] Sedimentation Rate, B 30(H) 3 - 28 mm/h 11/21/2023 11:31 AM CDT DT Blood (Blood, Venous) 11/21/2023 9:59 AM CDT 11/21/2023 10:20 AM CDT us Antolin Mclaughlin M.D. LAB BLOOD ADD-ON Final Result [facility] [address] [place] [address], [facility] [address] [place] [address] * CRP (C-Reactive Protein) (11/21/2023 9:59 AM CDT) Pathologist [facility] C-Reactive Protein (CRP), S <3.0 <5.0 mg/L 11/21/2023 11:10 AM CDT DTL Blood (Blood, Venous) 11/21/2023 9:59 AM CDT 11/21/2023 10:35 AM CDT Antolin Mclaughlin M.D. LAB BLOOD ADD-ON Final Result [facility] [address] [place] [address], [place] [facility] [address] [place] [address] documented in this encounter Visit Diagnoses Diagnosis Arthritis Inflammatory (HCC)- Primary Arthritis Inflammatory (HCC) documented in this encounter Care Teams Bill Adjuster Relationship Specialty Start Date End Date Elsewhere, Pcp PCP - General Family Medicine 02/01/22 documented as of this encounter
--- OUTSIDE RECORDS SUMMARY | 2024-01-05 13:20 | XMS_ITS | Encounter Summary ---
Author Organization [facility] Address [address] [place] [address] Care Team Providers Care It Compliance Analyst Name Role Phone Elsewhere, Pcp Primary Care Provider Unavailabl e Reason for Referral * Outpatient (Routine) - Closed Specialty Diagnoses / Procedures Referred By Contac t Referred To Contact Rheumatology Diagnoses Effusion Knee Right Procedures Rheumatology - Diagnosis eConsult Antolin Mclaughlin M.D. [address] [place] [address] Phone: tel: fax: [facility] Referral ID Status Reason Start Date Expiration Date Visits Re quested Visits Authorized [id number] Closed 11/15/2023 11/14/2024 1 1 Encounter Details Date Type Department Care Team (Late st Contact Info) Description 11/15/2023 Orders Only Department of Physical Medicine and Rehabilitation in [place], [place] [address] [place] [phone] Antolin Mclaughlin M.D. [address] [place] [phone] Effusion Knee Right (Primary Dx) Social History [...] often do you attend chur ch or confucianism services? Never 01/24/2022 Do you belong to [...] and heating? Not hard at all 09/02/2022 [facility] of Occupat ional Health - Occupational Stress [...] your living situation today? I have a [facility] place [facility] live 02/16/2023 Education Answer Date Recorded What is the highest level of school you have completed or the highest degree you have received? Bachelor's degree (e.g., BA, AB, BS) 01/24/2022 Comments No Sex and Gender Information Value Date Recorded Sex Assigned at Female 01/24/2022 7:37 PM PORTRAIT CONSULTANT Legal Sex Female 10:28 AM CDT Gender Identity Female 01/24/2022 7:37 PM PORTRAIT CONSULTANT Sexual Orientation Straight 01/24/2022 7: 37 PM PORTRAIT CONSULTANT documented as of this encounter Plan of Treatment Upcoming Encounters Date Type Department Care Team (Late Contact Info) Description 01/09/2024 10:15 AM PORTRAIT CONSULTANT Clinical Communication Virtual Review in [place], [place] 200 [place] [phone] 01/11/2024 2:00 PM PORTRAIT CONSULTANT Appointment Department of Radiation Oncology in [address] [phone] Tammie Hooks M.D., Ph.D. [address] [place] [phone] 01/17/2024 9:00 AM PORTRAIT CONSULTANT Clinical Communication Virtual Review in [address] [phone] 01/19/2024 1:00 PM PORTRAIT CONSULTANT Comprehensive Visit Department of Neurology in [address] [phone] Kory Alas M.B., Ch.B. [address] [place] [phone] 02/26/2024 9:30 AM PORTRAIT CONSULTANT Lab Department of Laboratory Medicine and Pathology, [facility] in [address] [phone] Mc Mcknight M.D., Ph.D. [address] [place] [phone] 02/26/2024 11:30 AM PORTRAIT CONSULTANT Appointment Department of Radiology, [facility] in [place], [place] [address] [place] [phone] Mc Mcknight M.D., Ph.D. [address] [place] [phone] 02/26/2024 3:00 PM PORTRAIT CONSULTANT Appointment Department of Radiology, [facility] in [place], [place] [address] [place] [phone] Mc Mcknight M.D., Ph.D. [address] [place] [phone] 02/27/2024 1:40 PM PORTRAIT CONSULTANT Office Visit Department of Oncology in [place], [place] [address] [place] [phone] Mc Mcknight M.D., Ph.D. [address] [place] [phone] documented as of this encounter Visit Diagnoses Diagnosis Effusion Knee Right- Primary documented in this encounter Care Teams It Compliance Analyst Relationship Specialty Start Date End Date Elsewhere, Pcp PCP - General Family Medicine 02/01/22 documented as of this encounter
--- OUTSIDE RECORDS SUMMARY | 2024-01-05 13:20 | XMS_ITS | Encounter Summary ---
Author Organization [facility] Address [address] [place] [address] Care Team Providers Care Engineering Research Manager Name Role Phone Elsewhere, Pcp Primary Care Provider Unavailabl e Encounter Details Date Type Department Care Team (Latest Contact Info) Description 11/13/2023 11:05 AM CDT Ancillary Procedure Department of Radiology in [place], [place] [address] [place] [address] Antolin Mclaughlin M.D. [address] [place] [address] Effusion Knee Right Social History Tobacco Use [...] all 09/02/2022 [facility] of Occupat ionut Health - Occupational Stress Questionnaire Answer Date [...] living situation today? I have a [facility] place to live 02/16/2023 Education Answer Date Recorded What is the highest level of school you have completed or the highest degree you have received? Bachelor's degree (e.g., BA, AB, BS) 01/24/2022 Comments No Sex and Gender Information Value Date Recorded Sex Assigned at Female 01/24/2022 7:37 PM HANDS AND DIAL INSPECTOR Legal Sex Female 10:28 AM CDT Gender Identity Female 01/24/2022 7:37 PM HANDS AND DIAL INSPECTOR Sexual Orientation Straight 01/24/2022 7: 37 PM HANDS AND DIAL INSPECTOR documented as of this encounter Plan of Treatment Upcoming Encounters Date Type Department Care Team (Late st Contact Info) Description 01/09/2024 10:15 AM HANDS AND DIAL INSPECTOR Clinical Communication Virtual Review in [address] [phone] 01/11/2024 2:00 PM HANDS AND DIAL INSPECTOR Appointment Department of Radiation Oncology in [place], [place] [address] [place] [phone] Tammie Hooks M.D., Ph.D. [address] [place] [phone] 01/17/2024 9:00 AM HANDS AND DIAL INSPECTOR Clinical Communication Virtual Review in [place], [place] 200 [place] [address] 01/19/2024 1:00 PM HANDS AND DIAL INSPECTOR Comprehensive Visit Department of Neurology in [place], [place] [address] [place] [phone] Kory Alas M.B., Ch.B. [address] [place] [phone] 02/26/2024 9:30 AM HANDS AND DIAL INSPECTOR Lab Department of Laboratory Medicine and Pathology, [facility] in [place], [place] [address] [place] [phone] Mc Mcknight M.D., Ph.D. [address] [place] [phone] 02/26/2024 11:30 AM HANDS AND DIAL INSPECTOR Appointment Department of Radiology, [facility] in [address] [phone] Mc Mcknight M.D., Ph.D. [address] [place] [phone] 02/26/2024 3:00 PM HANDS AND DIAL INSPECTOR [facility]ment [facility] [address] [phone] Mc Mcknight M.D., Ph.D. [address] [place] [phone] 02/27/2024 1:40 PM HANDS AND DIAL INSPECTOR Office Visit Department of Oncology in [address] [phone] Mc Mcknight M.D., Ph.D. [address] [place] [phone] documented as of this encounter Procedures Procedure [...] Right documented in this encounter Care Teams Engineering Research Manager Relationship Specialty Start Date End Date Elsewhere, Pcp PCP - General Family Medicine 02/01/22 documented as of this encounter
--- OUTSIDE RECORDS SUMMARY | 2024-01-05 13:20 | XMS_ITS | Encounter Summary ---
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 200 [place] [address] Phone: tel: fax: [facility] Referral ID Status Reason Start Date Expiration Date Visits Re quested Visits Authorized [id number] Closed 11/01/2023 05/02/2025 1 1 Reason for Visit * Episode Based Medications (Routine) - Closed Specialty Diagnoses / Procedures Referred By Contgiana t Referred To Contact Diagnoses Other Clinical Data Specialist Current Drug Therapy Secondary Malignant Neoplasm Bone (HCC) Squamous Cell Carcinoma Of Skin Of Scalp And Neck Blanche Monzon P.A.-C., M.S. 200 [place] [address] Phone: tel: fax: Department of Oncology in [place], [place] 200 [place] [address] Phone: tel: Referral ID Status Reason Start Date Expiration Date Visits Re quested Visits Authorized [id number] Closed 07/28/2023 07/27/2025 99 99 Encounter Details Date Type Department Care Team (Late st Contact Info) Description 11/01/2023 1:40 PM CDT Office Visit Department of Oncology in [place], [place] 200 [place] [phone] Blanche Monzon P.A.-C., M.S. 200 [place] [phone] Malignant Neoplasm Of Neck Squamous Cell (Primary Dx); Squamous Cell Carcinoma Of Skin Of Scalp And Neck; Secondary Malignant Neoplasm Bone (HCC); Other Correction Current Drug Therapy; Pain In Joint; Effusion [...] often do you attend chur ch or jew services? Never 01/24/2022 Do you belong to [...] and heating? Not hard at all 09/02/2022 [facility] of Occupat ional [facility] - Occupational Stress Questionnaire Answer [...] Sex Assigned at Female 01/24/2022 7:37 PM FUR TANNER Legal Sex Female 10:28 AM CDT Gender Identity Female 01/24/2022 7:37 PM FUR TANNER Sexual Orientation Straight 01/24/2022 7: 37 PM FUR TANNER documented as of this encounter Last Filed [...] REQUESTING PROVIDER Blanche Monzon P.A.-C., M.S. [address] [place] [phone] PRIMARY COLLABORATING PROVIDER Mc Mcknight M.D., Ph.D. Blanche Monzon P.A.-C., M.S. COLLABORATING PROVIDER Remigio Gordon M.D., Ph.D. CHIEF CONCERN Veronica Guevara is a 78 y.o. female with regionally advanced squamous cell carcinoma who presents today to for next cycle of cemiplimab. HISTORY OF PRESENT ILLNESS Oncology History Oncology History Squamous Cell Carcinoma Of Skin Of Scalp And Neck 07/2021 Initial Diagnosis July 2021: Noticed a lesion on the vertex of the scalp. Evaluated by airdox fitter Dr. Banuelos in [place] and was treated for possible psoriasis. The lesion persisted after 6 weeks. She was then treated with UV phototherapy between September and December of 2021. September 22, 2021---December 17, 2021: Underwent biopsy of the vertex scalp lesion which revealed squamous cell carcinoma. Incisional biopsy of left level 5 lymph node also revealed squamous cell carcinoma. 12/30/2021 Biopsy/Pathology A. Skin, scalp, vertex, excisional biopsy ([id number]; 12/30/2021): Invasive poorly differentiated squamous cell carcinoma, transected at base and lateral edge of the specimen. B. Neck, left, soft tissue, biopsy ([id number]; 01/13/2022): Invasive poorly differentiated squamous cell carcinoma [...] Medical History: Diagnosis Date Cataract 2021 Dermatitis 2015 Gastroesophageal Reflux Disease NOS 1997 Hyperlipidemia Hypothyroidism 2022 Osteopenia 2012 Regurgitation Aortic [...] cereal SOCIAL HISTORY Veronica Guevara lives in [place], [place], with her , Andre. Retired. PHYSICAL [...] Value Bilirubin, Direct, S <0.2 Thyroid Function Walsh Collection Time: 11/01/23 11:39 AM Result Value TSH, Sensitive 3.2 Vitamin B12 Assay Collection Time: 11/01/23 11:39 AM Result Value Vitamin B12 Assay, S 753 Folate Collection Time: 11/01/23 11:39 AM Result Value Folate, S >20.0 RADIOLOGICAL DATA Reviewed. 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 Also, reviewed the importance of maintaining ongoing care with local oncology team and primary care physician. BILLING I spent an additional 35 minutes beyond treatment clearance reviewing chart, managing above symptoms, and placing follow-up orders. documented in this encounter Plan of Treatment Upcoming Encounters Date Type Department Care Team (Late st Contact Info) Description 01/09/2024 10:15 AM FUR TANNER Clinical Communication Virtual Review in [place], [place] [address] [place] [address] 01/11/2024 2:00 PM FUR TANNER Appointment Department of Radiation Oncology in [place], [place] [address] [place] [phone] Tammie Hooks M.D., Ph.D. [address] [place] [phone] 01/17/2024 9:00 AM FUR TANNER Clinical Communication Virtual Review in [place], [place] 200 [place] [address] 01/19/2024 1:00 PM FUR TANNER Comprehensive Visit Department of Neurology in [place], [place] [address] [place] [phone] Kory Alas M.B., Ch.B. [address] [place] [phone] 02/26/2024 9:30 AM FUR TANNER Lab Department of Laboratory Medicine and Pathology, [facility] in [place], [place] [address] [place] [phone] Mc Mcknight M.D., Ph.D. [address] [place] [phone] 02/26/2024 11:30 AM FUR TANNER Appointment Department of Radiology, [facility] in [address] [phone] Mc Mcknight M.D., Ph.D. [address] [place] [phone] 02/26/2024 3:00 PM FUR TANNER Appointment Department of Radiology, [facility] in [place], [place] [address] [place] [phone] Mc Mcknight M.D., Ph.D. [address] [place] [phone] 02/27/2024 1:40 PM FUR TANNER Office Visit Department of Oncology in [place], [place] [address] [place] [phone] Mc Mcknight M.D., Ph.D. 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 LAB BLOOD ADD-ON Final Result Performing Organization Address City/[facility]/ZIP Co de Phone Number [facility] [address] DTL [facility] 200 [place] [address] * Bilirubin, Direct (01/01/2024 4:22 PM CDT) Pathologist [facility] Bilirubin, Direct, S <0.2 0.0 - 0.3 mg/dL 01/01/2024 5:24 PM CDT DTL Blood (Blood, Venous) 01/01/2024 4:22 PM CDT 01/01/2024 4:59 PM CDT Blanche Monzon P.A.-C., M.S. LAB BLOOD ADD-ON Final Result Performing Organization Address City/[facility]/ZIP Co de Phone Number [facility] 200 [place] [address], [facility] DTL [facility] 200 [place] [address] * Comprehensive Metabolic Panel (01/01/2024 4:22 PM CDT) [facility] Potassium, S 4.3 3.6 - 5.2 mmol/L [...] PM CDT 01/01/2024 4:59 PM CDT Blanche Iggy Monzon P.A.-C. M.S. LAB BLOOD ADD-ON Final Result [facility] [address] [place] [address], [facility] DTL [facility] [address] [place] [address] * (ABNORMAL) CBC with Differential, Blood (01/01/2024 4:22 PM CDT) Hemoglobin 12.9 11.6 - 15.0 g/dL 01/01/2024 [...] P.A.-C., M.S. LAB BLOOD ADD-ON Final Result [facility] [address] [place] [address], [facility] DTL [facility] [address] [place] [address] DHPM [facility] [address] [place] [address] documented in this encounter Visit Diagnoses Diagnosis Malignant Neoplasm Of Neck Squamous Cell- Primary Squamous Cell Carcinoma Of Skin Of Scalp And Neck Secondary Malignant Neoplasm Bone (HCC) Other Clinical Data Specialist Current Drug Therapy Pain In Joint Effusion Joint documented in this encounter Care Teams Batchmaker Relationship Specialty Start Date End Date Elsewhere, Pcp PCP - General Family Medicine 02/01/22 documented as of this encounter
--- OUTSIDE RECORDS SUMMARY | 2024-01-05 13:20 | XMS_ITS | Encounter Summary ---
Author Organization [facility] Address [address] [place] [address] Care Team Providers Care Heating Unit Installer Name Role Phone Elsewhere, Pcp Primary Care Provider Unavailabl e Reason for Referral * Outpatient (Routine) - Closed Specialty Diagnoses / Procedures Referred By Ryan cronin Referred To Contact Diagnoses Arthritis Inflammatory (HCC) Procedures RHU US-Guided Aspiration/Injection - Large Joint Tammie Qiu APRN, C.N.P. [address] [place] [address] Phone: tel: fax: [facility] Referral ID Status Reason Start Date Expiration Date Visits Re quested Visits Authorized [id number] Closed 11/21/2023 11/20/2024 1 1 Reason for Visit * Outpatient (Routine) - Closed Specialty Diagnoses / Procedures Referred By Contac t Referred To Contact Rheumatology Diagnoses Arthritis Inflammatory (HCC) Antolin Mclaughlin M.D. [address] [place] [address] Phone: tel: fax: [facility] Referral ID Status Reason Start Date Expiration Date V isits Requested Visits Authorized [id number] Closed Specialty Services Required 11/17/2023 05/18/2025 1 1 Encounter Details Date Type Department Care Team (Latest Contact Info) Description 11/21/2023 7:45 AM CDT Comprehensive Visit Division of Rheumatology in [place], [place] [address] [place] [phone] Antolin Mclaughlin M.D. [address] [place] [phone] Tammie Qiu APRN CNeyN.P. [address] [place] [address] Arthritis Inflammatory (HCC) (Primary Dx) Social History [...] How often do you attend chur or oriental orthodox services? Never 01/24/2022 Do [...] and heating? Not hard at all 09/02/2022 [facility] [place] of Occupat ional Health - Occupational Stress [...] Assigned at Female 01/24/2022 7:37 PM SENIOR PLANNING ANALYST Legal Sex Female 10:28 AM CDT Gender Identity Female 01/24/2022 7:37 PM SENIOR PLANNING ANALYST Sexual Orientation Straight 01/24/2022 7: 37 PM SENIOR PLANNING ANALYST documented as of this encounter Consult Notes * Tammie Qiu APRN, C.N.P. - 11/21/2023 7:45 AM CDT Images from the original note were not included. SUBJECTIVE CHIEF COMPLAINT / REASON FOR CONSULT Ms. Veronica Guevara is a 78 y.o. female with regionally advanced squamous cell carcinoma who was referred by Antolin Mclaughlin M.D. for evaluation of joint pain in the context of immune checkpoint inhibitor therapy. HISTORY OF PRESENT ILLNESS Ms. Guevara reports she was not experiencing any significant joint pain prior to treatment with cemiplimab. Five years ago she had a right knee arthroscopy with meniscus repair followed by a Sy, however since she has not experienced persistent pain or swelling. She initially started cemiplimab on 08/08/23. After her fourth infusion she went on to develop pain and swelling in her right knee which has not improved since. For a few hours she experienced elbow and ankle pain as well however these symptoms resolved rather quickly without any specific treatment. She was referred to Physical Medicine and Rehabilitation on 11/13/23 who completed joint aspiration and intra-articular corticosteroid injection. Aspirate revealed 9,000 total nucleated cells, no crystals were identified. She has not yet had serologies or acute phase reactants completed but these arescheduled for later this morning. Interpretation of outside right knee radiographs showed a moderate to large right knee joint effusion and/or synovitis. There was also degenerative arthritis of the patellofemoral compartment and medial femoral condyle. Currently pain is 2/10 in severity with rest and 4/10 with activity. She is taking one tablet of Advil twice daily, elevating, bracing, and applying ice with some improvement. There is no known history of psoriasis, however she does have a scaly plaque above her left eyebrow. This was biopsied in Dermatology, findings were most consistent with seborrheic dermatitis. She has been applying tacrolimus with improvement. She denies worsening fatigue or unexplained fevers, chills, anorexia, or weight loss. She has notednight sweats about 5-6 times in the last month. Reports dry eyes for which she uses Refresh Plus rewetting drops. Her mouth is dry as well. She denies mucositis, history of inflammatory eye disease, photosensitive rashes, symptoms of serositis, history of Raynaud's, abdominal pain, nausea, vomiting, diarrhea, constipation, or blood in stool. She reports heartburn for which she elevated her head of bed and avoids late night snacking. Reports numbness and tingling in fingers and toes bilaterally.She brings today a screenshot of her recent DEXA scan completed locally 11/17/23, which revealed osteoporosis with a T-score of -2.9 in the left femoral neck. Previous Reports Reviewed:lab reports, office notes, outside records, and radiology reports The following portions of the patient's history were reviewed and updated as appropriate: allergies, current medications, family history, medical history, social history, surgical history, and problem list. REVIEW OF SYSTEMS As per HPI. OBJECTIVE PHYSICAL EXAMINATION Constitutional Appearance: Well-developed. HENT Mouth/Throat: Mouth: Mucous membranes are moist, normal salivary pooling. No ulcerations noted. Small vesicle on right lower inner lip. Pharynx: Oropharynx is clear. Eyes Conjunctiva/sclera: Conjunctivae normal. Pupils: Pupils are equal, round, and reactive to light. Cardiovascular Rate and Rhythm: Normal rate and regular rhythm. Heart sounds: Normal heart sounds. Pulmonary Effort: Pulmonary effort is normal. Breath sounds: Normal breath sounds. Musculoskeletal Cervical back: Normal range of motion and neck supple. Comments: Moderate right knee effusion with associated warmth and tenderness to palpation most notable along the medial joint line. Flexion limited to approximately 90 degrees. Left knee with full range of motion. Other than as mentioned, no synovitis of the upper and lower extremities including hands, wrists, elbows, knees, ankles or feet bilaterally. ALLEGRA negative. Lymphadenopathy Cervical: No cervical adenopathy. Skin General: Skin is warm and dry. No rashes or nodules. DIAGNOSTICS Labs completed 11/01/23 include stable CBC with differential, creatinine 0.73, AST 40, ALT 25, and alk phos 101. Inflammatory makers, RF, CCP, and uric acid pending for later this morning. Interpretation of outside right knee radiographs completed 10/25/23: Moderate to large right knee joint effusion and/or synovitis. Degenerative arthritis patellofemoral compartment with changes, most marked involving the medial patellar facet. Focal degenerative change posterior aspect of medial femoral condyle. ASSESSMENT / PLAN #1 Arthritis Inflammatory (HCC) #2 Osteoporosis Ms. Guevara is a delightful 78 year old female with history of squamous cell carcinoma on cemiplimab presenting for evaluation of right knee pain. Synovial fluid aspiration yielded 9,000 total nucleated cells, no crystals identified. I have low suspicion for infection at this time, presentation isconsistent with an immune-related adverse events of immune checkpoint inhibitor. As joint involvement is monoarticular, we discussed the appropriateness of proceeding with intra-articular injection of corticosteroid for management. Would recommend discussion with primary care provider regarding management of osteoporosis. We discussed risk for bone thinning is less with intra-articular corticosteroids when compared with systemic corticosteroids. She will continue with daily calcium and vitamin D supplementation. FOLLOW-UP Recommend follow-up as needed should she present with recurrent joint pain despite intra-articular injection. In this case would recommend additional evaluation with consideration for systemic corticosteroids. PATIENT EDUCATION The impression and plans were explained in detail. There were no apparent barriers to learning and understanding. Questions were answered. Tammie Qiu APRN, C.N.P. Patient was seen in collaboration with Dr. García, Rheumatology collection systems consultant. Cosigned by Teodora García M.B.B.Dee Dee at 11/23/2023 1:40 PM CDT Associated attestation - Teodora García M.B.B.S. - 11/23/2023 1:40 PM CDT I have seen, discussed, and examined Ms. Veronica Guevara with the nurse practitioner and reviewed the pertinent history , examination, laboratory parameters, imaging studies, assessment , and plan. I have reviewed the assessment and plan as documented by Tammie Qiu APRN, CNP and am in agreement. Ms. uGevara is a delightful 70-year-old female currently being treated with immune checkpoint inhibitor therapy for squamous cell cancer. She was referred for evaluation of monoarticular, right kneeinflammatory arthritis. She had transient symptoms ulcer involving the ankles but otherwise has no complaints of pain or swelling to any of the peripheral joint areas. Previous synovial fluid analysis from the right knees consistent with an inflammatory process with a cell count of 9252 and no crystals on polarized microscopy. She had no evidence of synovitis any other joint areas on examination and are warm effusion was noted to the right knee with limitation of full extension. X-rays of the right knee completed elsewhere and interpreted here showed [id number] effusionand/or synovitis and degenerative arthritis is patellofemoral compartment. Autoimmune serologies are pending. Her presentation raises concern for immune checkpoint inhibitor related inflammatory arthritis. Given that she has monoarticular joint involvement an ultrasound-guided corticosteroid injection to theright knee would be reasonable as the next step. She was reluctant regarding systemic corticosteroid therapy because of the risks related to an established diagnosis of osteoporosis. The risks and benefits of corticosteroid injection were reviewed. Expectant management going forward is appropriate. If she were to develop more polyarticular joint symptoms would need to discuss possible treatment with systemic corticosteroids. documented in this encounter Plan of Treatment Upcoming Encounters Date Type Department Care Team (Late st Contact Info) Description 01/09/2024 10:15 AM SENIOR PLANNING ANALYST Clinical Communication Virtual Review in [address] [phone] 01/11/2024 2:00 PM SENIOR PLANNING ANALYST Appointment Department of Radiation Oncology in [address] [phone] Tammie Hooks M.D., Ph.D. [address] [place] [phone] 01/17/2024 9:00 AM SENIOR PLANNING ANALYST Clinical Communication Virtual Review in [address] [place] [address] 01/19/2024 1:00 PM SENIOR PLANNING ANALYST Comprehensive Visit Department of Neurology in [place], [place] [address] [place] [phone] Kory Alas M.B., Ch.B. [address] [place] [phone] 02/26/2024 9:30 AM SENIOR PLANNING ANALYST Lab Department of Laboratory Medicine and Pathology, [facility] in [address] [phone] Mc Mcknight M.D., Ph.D. [address] [place] [phone] 02/26/2024 11:30 AM SENIOR PLANNING ANALYST Appointment Department of Radiology, [facility] in [address] [phone] Mc Mcknight M.D., Ph.D. [address] [place] [phone] 02/26/2024 3:00 PM SENIOR PLANNING ANALYST [facility] [address] [phone] Mc Mcknight M.D., Ph.D. [address] [place] [phone] 02/27/2024 1:40 PM SENIOR PLANNING ANALYST Office Visit Department of Oncology in [address] [phone] Mc Mcknight M.D., Ph.D. [address] [place] [phone] documented as of this encounter Results * NM ARTHCS ASP/INJ MJR JT W US (11/22/2023 10:00 AM CDT) Narrative Remigio Reese M.D. - 11/22/2023 10:00 AM CDT Remigio Reese M.D. ? 11/22/2023 12:04 PM Knee site- R knee joint : aspiration and diagnostic-therapeutic injection Performed by: Ivis Dubois M.D. Authorized by: Tammie Qiu APRN C.N.PNey ?? Care team members present 1. Remigio [...] dressing care and follow-up with ordering provider us Tammie Qiu APRN, C.N.P. PROCEDURE/MINOR ALDAIR GICAL ORDERABLES Final Result documented in this encounter Visit Diagnoses Diagnosis Arthritis Inflammatory (HCC)- Primary Arthritis Inflammatory (HCC) documented in this encounter Care Teams Heating Unit Installer Relationship Specialty Start Date End Date Elsewhere, Pcp PCP - General Family Medicine 02/01/22 documented as of this encounter
--- OUTSIDE RECORDS SUMMARY | 2024-01-05 13:20 | XMS_ITS | Encounter Summary ---
Author Organization [facility] Address [address] [place] [address] Care Team Providers Care Residence Counselor Name Role Phone Elsewhere, Pcp Primary Care Provider Unavailabl e Encounter Details Date Type Department Care Team (Late st Contact Info) Description 11/01/2023 Clinical Communication Department of Oncology in [place], [place] [address] [place] [phone] Blanche Monzon P.A.-C., M.S. [address] [place] [address] Social History Tobacco Use Types Packs/Day Years [...] and heating? Not hard at all 09/02/2022 [facility] Occupat ionil Health - [...] Sex Assigned at Female 01/24/2022 7:37 PM TINSMITH APPRENTICE Legal Sex Female 10:28 AM CDT Gender Identity Female 01/24/2022 7:37 PM TINSMITH APPRENTICE Sexual Orientation Straight 01/24/2022 7: 37 PM TINSMITH APPRENTICE documented as of this encounter Plan of Treatment Upcoming Encounters Date Type Department Care Team (Late st Contact Info) Description 01/09/2024 10:15 AM TINSMITH APPRENTICE Clinical Communication Virtual Review in [address] [phone] 01/11/2024 2:00 PM TINSMITH APPRENTICE Appointment Department of Radiation Oncology in [place], [place] [address] [place] [phone] Tammie Hooks M.D., Ph.D. [address] [place] [phone] 01/17/2024 9:00 AM TINSMITH APPRENTICE Clinical Communication Virtual Review in [place], [place] [address] [place] [address] 01/19/2024 1:00 PM TINSMITH APPRENTICE Comprehensive Visit Department of Neurology in [place], [place] [address] [place] [phone] Kory Alas M.B., Ch.B. [address] [place] [phone] 02/26/2024 9:30 AM TINSMITH APPRENTICE Lab Department of Laboratory Medicine and Pathology, [facility] in [place], [place] [address] [place] [phone] Mc Mcknight M.D., Ph.D. [address] [place] [phone] 02/26/2024 11:30 AM TINSMITH APPRENTICE Appointment Department of Radiology, [facility] in [address] [phone] Mc Mcknight M.D., Ph.D. [address] [place] [phone] 02/26/2024 3:00 PM TINSMITH APPRENTICE [facility] [address] [phone] Mc Mcknight M.D., Ph.D. [address] [place] [phone] 02/27/2024 1:40 PM TINSMITH APPRENTICE Office Visit Department of Oncology in [address] [phone] Mc Mcknight M.D., Ph.D. [address] [place] [phone] documented as of this encounter Visit Diagnoses Not on filedocumented in this encounter Care Teams Residence Counselor Relationship Specialty Start Date End Date Elsewhere, Pcp PCP - General Family Medicine 02/01/22 documented as of this encounter
--- OUTSIDE RECORDS SUMMARY | 2024-01-05 13:20 | XMS_ITS | Encounter Summary ---
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 [address] [place] [phone] Phone: tel: fax: Department of Oncology in [place], [place] 200 [place] [address] Phone: tel: Referral ID Status Reason Start Date Expiration Date Visits Re quested Visits Authorized [id number] Closed 07/28/2023 07/27/2025 99 99 Encounter Details Date Type Department Care Team (Late st Contact Info) Description 11/21/2023 2:15 PM CDT Infusion Department of Oncology in [place], [place] [address] [place] [phone] Remigio Frey M.D., Ph.D. [address] [place] [phone] Squamous Cell Carcinoma Of Skin Of Scalp [...] and heating? Not hard at all 09/02/2022 [facility] [place] of Occupat ional Health - Occupational Stress [...] Sex Assigned at Female 01/24/2022 7:37 PM AGED OR DISABLED CARE WORKER Legal Sex Female 10:28 AM CDT Gender Identity Female 01/24/2022 7:37 PM AGED OR DISABLED CARE WORKER Sexual Orientation Straight 01/24/2022 7: 37 PM AGED OR DISABLED CARE WORKER documented as of this encounter Plan of Treatment Upcoming Encounters Date Type Department Care Team (Late st Contact Info) Description 01/09/2024 10:15 AM AGED OR DISABLED CARE WORKER Clinical Communication Virtual Review in [address] [phone] 01/11/2024 2:00 PM AGED OR DISABLED CARE WORKER Appointment Department of Radiation Oncology in [address] [phone] Tammie Hooks M.D., Ph.D. [address] [place] [phone] 01/17/2024 9:00 AM AGED OR DISABLED CARE WORKER Clinical Communication Virtual Review in [address] [phone] 01/19/2024 1:00 PM AGED OR DISABLED CARE WORKER Comprehensive Visit Department of Neurology in [address] [phone] Kory Alas M.B., Ch.B. [address] [place] [phone] 02/26/2024 9:30 AM AGED OR DISABLED CARE WORKER Lab Department of Laboratory Medicine and Pathology, [facility] in [place], [place] [address] [place] [phone] Mc Mcknight M.D., Ph.D. [address] [place] [phone] 02/26/2024 11:30 AM AGED OR DISABLED CARE WORKER Appointment Department of Radiology, [facility], in [place], [place] [address] [place] [phone] Mc Mcknight M.D., Ph.D. [address] [place] [phone] 02/26/2024 3:00 PM AGED OR DISABLED CARE WORKER Appointment Department of Radiology, [facility] in [place], [place] [address] [place] [address] Mc Mcknight M.D., Ph.D. [address] [place] [phone] 02/27/2024 1:40 PM AGED OR DISABLED CARE WORKER Office Visit Department of Oncology in [place], [place] [address] [place] [phone] Mc Mcknight M.D., Ph.D. [address] [place] [phone] documented as of this encounter Visit Diagnoses Diagnosis Squamous Cell Carcinoma Of Skin Of Scalp And Neck- Primary Other Hall Tender Current Drug Therapy Secondary Malignant Neoplasm Bone (HCC) Malignant Neoplasm Of Neck Squamous Cell documented in this encounter Administered Medications Inactive Administered Medications - up to 3 most recent administrations Medication Order MAR Action Action Date Dose Rate Site cemiplimab-rwlc 350 mg in NaCl 0.9% 282 mL IVPB (Libtayo) 350 mg, intravenous, at 564 mL/hr, Administer over 30 Minutes, Once, On Mon11/21/23 at 1430, For 1 dose, Administer through in-line or add-on 0.2-micron to 5-micron filter.Indications:Other Hall Tender Current Drug Therapy,Secondary Malignant Neoplasm Bone (HCC),Squamous Cell Carcinoma Of Skin Of Scalp And Neck New Bag 11/21/2023 2:19 PM CDT 350 mg 564 mL/hr documented in this encounter Care Teams Front Desk Relationship Specialty Start Date End Date Elsewhere, Pcp PCP - General Family Medicine 02/01/22 documented as of this encounter
--- OUTSIDE RECORDS SUMMARY | 2024-01-05 13:20 | XMS_ITS | Encounter Summary ---
Author Organization [facility] Address [address] [place] [address] Care Team Providers Care Sod Stripper Name Role Phone Elsewhere, Pcp Primary Care Provider Unavailabl e Encounter Details Date Type Department Care Team (Latest Contact Info) Description 10/30/2023 11:00 AM CDT Clinical Communication Virtual Review in [place], [place] [address] [place] [address] Social History Tobacco Use Types Packs/Day Years [...] and heating? Not hard at all 09/02/2022 [facility] of Occupat ional Health [...] Sex Assigned at Female 01/24/2022 7:37 PM FUNCTIONAL TESTER Legal Sex Female 10:28 AM CDT Gender Identity Female 01/24/2022 7:37 PM FUNCTIONAL TESTER Sexual Orientation Straight 01/24/2022 7: 37 PM FUNCTIONAL TESTER documented as of this encounter Plan of Treatment Upcoming Encounters Date Type Department Care Team (Late st Contact Info) Description 01/09/2024 10:15 AM FUNCTIONAL TESTER Clinical Communication Virtual Review in [address] [phone] 01/11/2024 2:00 PM FUNCTIONAL TESTER Appointment Department of Radiation Oncology in [place], [place] [address] [place] [phone] Tammie Hooks M.D., Ph.D. [address] [place] [phone] 01/17/2024 9:00 AM FUNCTIONAL TESTER Clinical Communication Virtual Review in [place], [place] 200 [place] [address] 01/19/2024 1:00 PM FUNCTIONAL TESTER Comprehensive Visit Department of Neurology in [place], [place] [address] [place] [phone] Kory Alas M.B., Ch.B. [address] [place] [address] 02/26/2024 9:30 AM FUNCTIONAL TESTER Lab Department of Laboratory Medicine and Pathology, [facility] in [place], [place] [address] [place] [address] Mc Mcknight M.D., Ph.D. [address] [place] [phone] 02/26/2024 11:30 AM FUNCTIONAL TESTER Appointment Department of Radiology, [facility] in [place], [place] [address] [place] [phone] Mc Mcknight M.D., Ph.D. [address] [place] [phone] 02/26/2024 3:00 PM FUNCTIONAL TESTER [facility] [place], [place] [address] [place] [address] Mc Mcknight M.D., Ph.D. [address] [place] [phone] 02/27/2024 1:40 PM FUNCTIONAL TESTER Office Visit Department of Oncology in [place], [place] [address] [place] [phone] Mc Mcknight M.D., Ph.D. [address] [place] [phone] documented as of this encounter Visit Diagnoses Not on filedocumented in this encounter Care Teams Sod Stripper Relationship Specialty Start Date End Date Elsewhere, Pcp PCP - General Family Medicine 02/01/22 documented as of this encounter
--- OUTSIDE RECORDS SUMMARY | 2024-01-05 13:20 | XMS_ITS | Encounter Summary ---
Author Organization [facility] Address [address] [place] [address] Care Team Providers Care Line Staker Name Role Phone Elsewhere, Pcp Primary Care Provider Unavailabl e Reason for Referral * MRI/CAT/PET Scan (Routine) - Closed Specialty Diagnoses / Procedures Referred By Ryan cronin Referred To Contact Diagnoses Other Halfway Current Drug Therapy Secondary Malignant Neoplasm Bone (HCC) Squamous Cell Carcinoma Of Skin Of Scalp And Neck Procedures PET CT Skull to Thigh FDG Mc Mcknight M.D., Ph.D. 200 [place] [address] Phone: tel: fax: [facility] Referral ID Status Reason Start Date Expiration Date Visits Re quested Visits Authorized [id number] Closed 11/21/2023 11/20/2024 1 1 Reason for Visit * Episode Based Medications (Routine) - Closed Specialty Diagnoses / Procedures Referred By Ryan cronin Referred To Contact Diagnoses Other Halfway Current Drug Therapy Secondary Malignant Neoplasm Bone (HCC) Squamous Cell Carcinoma Of Skin Of Scalp And Neck Blanche Monzon P.A.-C., M.S. 200 [place] [address] Phone: tel: fax: Department of Oncology in [place], [place] 200 [place] [address] Phone: tel: Referral ID Status Reason Start Date Expiration Date Visits Re quested Visits Authorized [id number] Closed 07/28/2023 07/27/2025 99 99 Encounter Details Date Type Department Care Team (Late st Contact Info) Description 11/21/2023 1:00 PM CDT Office Visit Department of Oncology in [place], [place] [address] [place] [phone] Mc Mcknight M.D., Ph.D. [address] [place] [phone] Other Weights And Measures Inspector Current Drug Therapy; Secondary Malignant Neoplasm Bone [...] and heating? Not hard at all 09[facility] - [facility]ational [...] living situation today? I have a [facility] place to live 02/16/2023 Education Answer Date Recorded What is the highest level of school you have completed or the highest degree you have received? Bachelor's degree (e.g., BA, AB, BS) 01/24/2022 Comments No Sex and Gender Information Value Date Recorded Sex Assigned at Female 01/24/2022 7:37 PM LABORATORY PHLEBOTOMIST Legal Sex Female 10:28 AM CDT Gender Identity Female 01/24/2022 7:37 PM LABORATORY PHLEBOTOMIST Sexual Orientation Straight 01/24/2022 7: 37 PM LABORATORY PHLEBOTOMIST documented as of this encounter Last Filed Vital Signs Vital Sign Reading Time Taken Comments Blood Pressure 96/61 11/21/2023 12:52 PM CDT Pulse 58 11/21/2023 12:52 PM CDT Temperature 36 ??C (96.8 ??F) 11/21/2023 12: 52 PM CDT Respiratory Rate 16 11/21/2023 12:5 2 PM CDT Oxygen Saturation 95% 11/21/2023 12: 52 PM CDT Inhaled Oxygen Concentration - - Weight 58.8 kg (129 lb 10.1 oz) 024 12:52 PM CDT Height 161.3 cm (5' 3.5) 11/21/2023 12 :52 PM CDT Body Mass Index 22.6 11/21/2023 12:52 PM CDT documented in this encounter Progress Notes * Mc Mcknight M.D., Ph.D. 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 Evaluated by baton twirler Dr. Banuelos in [place] and was treated for possible psoriasis. The lesion persisted after 6 weeks. She was then treated with UV phototherapy between September and December of 2021. September 22, 2021---December 17, 2021: Underwent biopsy of the vertex scalp lesion which revealed squamous cell carcinoma. Incisional biopsy of left level 5 lymph node also revealed squamous cell carcinoma. 12/30/2021 Biopsy/Pathology A. Skin, scalp, vertex, excisional biopsy ([id number]; 12/30/2021): Invasive poorly differentiated squamous cell carcinoma, transected at base and lateral edge of the specimen. B. Neck, left, soft tissue, biopsy ([id number]; 01/13/2022): Invasive poorly differentiated squamous cell carcinoma [...] Guevara returns for follow-up of cSCC. Currently no new complaints. Main issue is R knee swelling and pain brought upon by ICI therapy. Will undergo steroid injection tomorrow per our colleaguesin rheumatology. ECOG performance status is 1. MEDICAL/SURGICAL HISTORY Past Medical History: Diagnosis Date Cataract 2021 Dermatitis 2014 Gastroesophageal Reflux Disease NOS 1996 Hyperlipidemia Hypothyroidism 2022 Osteopenia 2012 Regurgitation Aortic Skin Cancer (Primary) NOS 2021 Past Surgical History: Procedure Laterality Date NECK DISSECTION Bilateral 02/01/2022 Procedure: NECK DISSECTION.; Surgeon: Edi Castorena M.D.; Location: [facility] OR TONSILLECTOMY 1965 TOTAL HYSTERECTOMY 2014 WIDE LOCAL EXCISION Posterior 02/01/2022 Procedure: WIDE LOCAL EXCISION, scalp lesion.; Surgeon: Edi Castorena M.D.; Location: [facility] OR REVIEW OF SYSTEMS Pertinent items are noted in HPI; all other review of systems were negative. I reviewed the Medications, Allergies, Past Medical History, Social History, and Family History. OBJECTIVE VITAL SIGNS Vitals: 11/21/23 1252 BP: 96/61 BP Location: Left arm Pulse: (!) 58 Resp: 16 Temp: 36 ??C TempSrc: Tympanic SpO2: 95% Weight: 58.8 kg Height: 161.3 cm No data recorded PHYSICAL EXAMINATION General: Alert female, in no acute distress. Ambulates on and off the exam table without difficulty. Skin: No rashes. Well healed surgical wounds. Eyes: Sclerae non-icteric. ENT: Moist mucous membranes. No oral lesions. Lymph: No palpable cervical, supraclavicular, or axillary lymphadenopathy. Heart: Regular rate and rhythm. Lungs: Clear to auscultation and resonant to percussion bilaterally. ASSESSMENT / PLAN 1. 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 Mrs Guevara is tolerating cemiplimab reasonably well. Only toxicity is R knee arthritis/effusion. Will attempt to control with steroid injection. We will proceed with the next course of cemiplimab today. Our plan will be to reimage her in December with PET/CT and MRI brain to assess the skull based lesion. If the tumor remains the same, and if PET/CT is FDG cold we may consider holding drug therapy and consolidating with RT; just a consideration; final decision will be made at the time of scanning. 2. ICI toxicity: (1) R knee arthritis/effusion; planned steroid injection tomorrow. PATIENT EDUCATION: Ready to learn, no apparent [...] st Contact Info) Description 01/09/2024 10:15 AM LABORATORY PHLEBOTOMIST Clinical Communication Virtual Review in [address] [phone] 01/11/2024 2:00 PM LABORATORY PHLEBOTOMIST Appointment Department of Radiation Oncology in [address] [phone] Tammie Hooks M.D., Ph.D. [address] [place] [phone] 01/17/2024 9:00 AM LABORATORY PHLEBOTOMIST Clinical Communication Virtual Review in [place], [place] 200 [place] [address] 01/19/2024 1:00 PM LABORATORY PHLEBOTOMIST Comprehensive Visit Department of Neurology in [place], [place] [address] [place] [phone] Kory Alas M.B., Ch.B. [address] [place] [phone] 02/26/2024 9:30 AM LABORATORY PHLEBOTOMIST Lab Department of Laboratory Medicine and Pathology, [facility] in [place], [place] [address] [place] [phone] Mc Mcknight M.D., Ph.D. [address] [place] [phone] 02/26/2024 11:30 AM LABORATORY PHLEBOTOMIST Appointment Department of Radiology, [facility] in [place], [place] [address] [place] [phone] Mc Mcknight M.D., Ph.D. [address] [place] [phone] 02/26/2024 3:00 PM LABORATORY PHLEBOTOMIST Appointment Department of Radiology, [facility] in [place], [place] [address] [place] [phone] Mc Mcknight M.D., Ph.D. [address] [place] [phone] 02/27/2024 1:40 PM LABORATORY PHLEBOTOMIST Office Visit Department of Oncology in [place], [place] [address] [place] [phone] Mc Mcknight M.D., Ph.D. [address] [place] [phone] documented as of this encounter Results * PET CT Skull [...] RADIOPHARMACEUTICAL/MEDS: Route: intravenous fludeoxyglucose F 18 injection INTERMEDIATE (FDG F-18),9.94 millicurie TECHNIQUE: ??F-18 FDG PET/CT [...] RADIOPHARMACEUTICAL/MEDS: Route: intravenous fludeoxyglucose F 18 injection INTERMEDIATE (FDG F-18),9.94 millicurie TECHNIQUE: F-18 FDG PET/CT [...] direct visualization isrecommended. Mc Mcknight M.D., Ph.D. IM NM PROCEDURE S Final Result documented in this encounter Visit Diagnoses Diagnosis Other Weights And Measures Inspector Current Drug Therapy Secondary Malignant Neoplasm Bone (HCC) Squamous Cell Carcinoma Of Skin Of Scalp And Neck Other Halfway Current Drug Therapy 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 Care Teams Line Staker Relationship Specialty Start Date End Date Elsewhere, Pcp PCP - General Family Medicine 02/01/22 documented as of this encounter
--- OUTSIDE RECORDS SUMMARY | 2024-01-05 13:20 | XMS_ITS | Encounter Summary ---
Author Organization [facility] Address [address] [place] [address] Care Team Providers Care Technician Support Association Name Role Phone Elsewhere, Pcp Primary Care Provider Unavailabl e Reason for Visit * Outpatient (Routine) - Closed Specialty Diagnoses / Procedures Referred By Ryan cronin Referred To Contact Diagnoses Effusion Knee Right Procedures PMR Peripheral injection/USGI (Procedure Only) Antolin Mclaughlin M.D. 200 [place] [address] Phone: tel: fax: [facility] Referral ID Status Reason Start Date Expiration Date Visits Re quested Visits Authorized [id number] Closed 11/13/2023 11/12/2024 1 1 Encounter Details Date Type Department Care Team (Latest Contact Info) Description 11/14/2023 2:30 PM CDT Procedure visit Department of Physical Medicine and Rehabilitation in [place], [place] 200 [place] [phone] Divine Ayala M.D. 200 [place] [phone] Effusion Knee Right Social History [...] any clubs o r organizations such as uatsdin groups, unions, fraternal or athletic groups, or [...] Sex Assigned at Female 01/24/2022 7:37 PM SEWING PATTERN LAYOUT TECHNICIAN Legal Sex Female 10:28 AM CDT Gender Identity Female 01/24/2022 7:37 PM SEWING PATTERN LAYOUT TECHNICIAN Sexual Orientation Straight 01/24/2022 7: 37 PM SEWING PATTERN LAYOUT TECHNICIAN documented as of this encounter Procedure Notes [...] fellow participated in the procedure, and the business information consultant was present for the entire procedure. documented in this encounter Plan of Treatment Upcoming Encounters Date Type Department Care Team (Late st Contact Info) Description 01/09/2024 10:15 AM SEWING PATTERN LAYOUT TECHNICIAN Clinical Communication Virtual Review in [address] [phone] 01/11/2024 2:00 PM SEWING PATTERN LAYOUT TECHNICIAN Appointment Department of Radiation Oncology in [address] [phone] Tammie Hooks M.D., Ph.D. [address] [place] [phone] 01/17/2024 9:00 AM SEWING PATTERN LAYOUT TECHNICIAN Clinical Communication Virtual Review in [address] [phone] 01/19/2024 1:00 PM SEWING PATTERN LAYOUT TECHNICIAN Comprehensive Visit Department of Neurology in [address] [phone] Kory Alas M.B., Ch.B. [address] [place] [phone] 02/26/2024 9:30 AM SEWING PATTERN LAYOUT TECHNICIAN Lab Department of Laboratory Medicine and Pathology, [facility], in [address] [phone] Mc Mcknight M.D., Ph.D. [address] [place] [phone] 02/26/2024 11:30 AM SEWING PATTERN LAYOUT TECHNICIAN Appointment Department of Radiology, [facility] in [address] [phone] Mc Mcknight M.D., Ph.D. [address] [place] [phone] 02/26/2024 3:00 PM SEWING PATTERN LAYOUT TECHNICIAN Appointment Department of Radiology, [facility] in [place], [place] [address] [place] [address] Mc Mcknight M.D., Ph.D. [address] [place] [phone] 02/27/2024 1:40 PM SEWING PATTERN LAYOUT TECHNICIAN Office Visit Department of Oncology in [place], [place] [address] [place] [phone] Mc Mcknight M.D., Ph.D. [address] [place] [phone] documented as of this encounter Procedures Procedure Name Priority Date/Time Associated Diagnosis Comments CRYSTAL ID, Routine 11/14/2023 2:50 PM CDT CELL COUNT AND DIFFERENTIAL, Routine 11/14/2023 2:50 PM CDT Effusion Knee Right VT ARTHCS ASP/INJ MJR JT W US Routine 11/14/2023 2:30 PM CDT Effusion Knee Right documented in this encounter Results * Crystal Identification, Body Fluid (11/14/2023 2:50 PM CDT) Fluid Type Synovial Fluid, Right Knee 11/14/2023 9:56 PM CDT [facility] Crystal ID None seen None seen 11/14/2023 9:56 PM CDT [facility] Fluid 11/14/2023 2:50 PM CDT 11/14/2023 5:58 PM CDT Antolin Mclaughlin M.D. LAB BODY FLUIDS AND ST OOLS ORDERABLES Final Result [facility] [address] [place] [address], [facility] 200 [place] [address] * Cell Count and Differential, Body Fluid [...] This test has been modified from the guest service representative's instructions. Its performance characteristics were determined by [facility] in a manner consistent with CLIA requirements. This test has not been cleared or approved by the U.S. Food and Drug Administration. Neutrophils 52 % 11/14/2023 9:56 PM CDT [facility] Comment: ----REFERENCE VALUE---- Synovial: <25% Peritoneal: <25% Pleural: <25% Pericardial: <25% Lymphocytes 19 Synovial <75% % 11/14/2023 9:56 PM CDT [facility] Monocytes/Macropha ges 29 Synovial <70% % 11/14/2023 9:56 PM CDT [facility] Comment See Comment 11/15/2023 9:36 AM CDT [facility] Comment:No blasts or maligna nt cells seen. Reviewed by: Mago 11/15/2023 9:36 AM CDT [facility] Fluid (Synovial Fluid, Not Otherwise Specified) 11/14/2023 2:50 PM CDT 11/14/2023 5:58 PM CDT us Antolin Mclaughlin M.D. LAB BODY FLUIDS AND ST OOLS ORDERABLES Final Result [facility] [address] [place] [address], [facility] [address] [place] [address] * VT ARTHCS ASP/INJ MJR JT W US (11/14/2023 [...] fellow participated in the procedure, and the business information consultant was present for the entire procedure. us Antolin Mclaughlin M.D. PROCEDURE/MINOR SURGIC AL ORDERABLES Final Result [facility] NA documented in this encounter Visit Diagnoses Diagnosis Effusion Knee Right documented in this encounter Administered Medications Inactive Administered Medications - up to 3 most recent administrations Medication Order MAR Action Action Date Dose Rate Site lidocaine (PF) 10 mg/mL (1 %) injection 2 mL (Xylocaine) 2 mL, injection, One-Time Injection, Starting on Mon11/14/23 at 1430, For 1 doseIndications:Effusion Knee Right Given 11/14/2023 2:30 PM CDT 2 mL documented in this encounter Care Teams Technician Support Association Relationship Specialty Start Date End Date Elsewhere, Pcp PCP - General Family Medicine 02/01/22 documented as of this encounter
--- OUTSIDE RECORDS SUMMARY | 2024-01-05 13:20 | XMS_ITS | Encounter Summary ---
Author Organization [facility] Address [address] [place] [address] Care Team Providers Care Investment Associate Name Role Phone Elsewhere, Pcp Primary Care Provider Unavailabl e Reason for Visit * Outpatient (Routine) - Closed Specialty Diagnoses / Procedures Referred By Contac t Referred To Contact Rheumatology Diagnoses Effusion Knee Right Procedures Rheumatology - Diagnosis eConsult Antolin Mclaughlin M.D. 200 [place] [address] Phone: tel: fax: [facility] Referral ID Status Reason Start Date Expiration Date Visits Re quested Visits Authorized [id number] Closed 11/15/2023 11/14/2024 1 1 Encounter Details Date Type Department Care Team (Latest Contact Info) Description 11/17/2023 8:00 AM CDT Internal E-Consult Division of Rheumatology in [place], [place] 200 [place] [phone] Monica Dawson M.B.B.S. [address] [place] [phone] Effusion Knee Right Social History Tobacco Use [...] often do you attend chur ch or muslim services? Never 01/24/2022 Do you [...] and heating? Not hard at all 09/02/2022 [facility] Occup[facility] - Occupational Stress [...] Sex Assigned at Female 01/24/2022 7:37 PM COMMERCIAL LINES UNDERWRITER Legal Sex Female 10:28 AM CDT Gender Identity Female 01/24/2022 7:37 PM COMMERCIAL LINES UNDERWRITER Sexual Orientation Straight 01/24/2022 7: 37 PM COMMERCIAL LINES UNDERWRITER documented as of this encounter Consult Notes * Monica Dawson M.B.B.S. - 11/16/2023 8:00 AM CDT SUBJECTIVE Ordering Physician: Antolin Mclaughlin M.D. The patient was not personally interviewed or examined. The history and examination findings are based on the clinical documentation provided and/or discussed with a physician or provider who had personally interviewed and examined the patient. Time spent: Five minutes or more of medical review. Chief Complaint / Reason for Visit A consult was placed regarding Veronica Guevara, a 78 y.o. female. History of Present Illness [address] [facility] Referred by colleagues in PMR Seen earlier this week noted to have significant effusion of right knee Per last note from visit with Oncology, patient also had pain in he right elbow and bilateral ankles No history of gout or pseudogout on file No prior rheumatology consult PMHx includes squamous cell cancer on cemiplimab No history of psoriasis, uveitis on file No family history of autoimmune disease OBJECTIVE Consult Findings: Lab Results Component Value Date/Time HGB 12.2 11/01/2023 11:38 AM HGB 13.0 10/11/2023 06:41 AM WBC 6.5 11/01/2023 11:38 AM WBC 3.3 (L) 10/11/2023 06:41 AM PLT 223 11/01/2023 11:38 AM PLT 224 10/11/2023 06:41 AM AST 40 11/01/2023 11:39 AM AST 41 10/11/2023 06:41 AM ALT 25 11/01/2023 11:39 AM ALT 28 10/11/2023 06:41 AM CREATININE 0.73 11/01/2023 11:39 AM CREATININE 0.74 10/11/2023 06:41 AM Knee X ray Moderate to large right knee joint effusion and/or synovitis. Degenerative arthritis patellofemoralcompartment with changes, most marked involving the medial patellar facet. Focal degenerative change posterior aspect of medial femoral condyle. [address] 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 Rashad share with oncology team Inflammatory arthritis refractory to corticosteroid and/or positive rheumatoid serologies/erosive changes on radiographs would warrant face to face consultation with rheumatology ideally with Dr. Garcias who has interest and expertise in rheumatologic manifestations of Immune checkpoint inhibitors (EZ rheumatology consult, select adverse effects of cancer immunotherapy under other rheumatic disease checkbox If skin rash worsens, dermatology re-evaluation for biopsy to confirm psoriasis/rule it out would be helpful Please reach out with questions Monica FIELD Instrumentation Designer Rheumatology [facility] documented in this encounter Plan of Treatment Upcoming Encounters Date Type Department Care Team (Late st Contact Info) Description 01/09/2024 10:15 AM COMMERCIAL LINES UNDERWRITER Clinical Communication Virtual Review in [address] [phone] 01/11/2024 2:00 PM COMMERCIAL LINES UNDERWRITER Appointment Department of Radiation Oncology in [address] [phone] Tammie Hooks M.D., Ph.D. [address] [place] [phone] 01/17/2024 9:00 AM COMMERCIAL LINES UNDERWRITER Clinical Communication Virtual Review in [address] [phone] 01/19/2024 1:00 PM COMMERCIAL LINES UNDERWRITER Comprehensive Visit Department of Neurology in [address] [phone] Kory Alas M.B., Ch.B. [address] [place] [phone] 02/26/2024 9:30 AM COMMERCIAL LINES UNDERWRITER Lab Department of Laboratory Medicine and Pathology, [facility], in [address] [phone] Mc Mcknight M.D., Ph.D. [address] [place] [phone] 02/26/2024 11:30 AM COMMERCIAL LINES UNDERWRITER Appointment Department of Radiology, [facility] in [place], [place] [address] [place] [address] Mc Mcknight M.D., Ph.D. [address] [place] [phone] 02/26/2024 3:00 PM COMMERCIAL LINES UNDERWRITER Appointment Department of Radiology, [facility] in [place], [place] [address] [place] [address] Mc Mcknight M.D., Ph.D. [address] [place] [phone] 02/27/2024 1:40 PM COMMERCIAL LINES UNDERWRITER Office Visit Department of Oncology in [place], [place] [address] [place] [phone] Mc Mcknight M.D., Ph.D. [address] [place] [phone] documented as of this encounter Visit Diagnoses Diagnosis Effusion Knee Right documented in this encounter Care Teams Investment Associate Relationship Specialty Start Date End Date Elsewhere, Pcp PCP - General Family Medicine 02/01/22 documented as of this encounter
--- OUTSIDE RECORDS SUMMARY | 2024-01-05 13:20 | XMS_ITS | Encounter Summary ---
Author Organization [facility] Address [address] [place] [address] Care Team Providers Care Book Or Script Editor Name Role Phone Elsewhere, Pcp Primary Care Provider Unavailabl e Reason for Visit * Outpatient (Routine) - Closed Specialty Diagnoses / Procedures Referred By Contac t Referred To Contact Diagnoses Arthritis Inflammatory (HCC) Procedures RHU US-Guided Aspiration/Injection - Large Joint Tammie Qiu APRN, C.N.P. 200 [place] [address] Phone: tel: fax: [facility] Referral ID Status Reason Start Date Expiration Date Visits Re quested Visits Authorized [id number] Closed 11/21/2023 11/20/2024 1 1 Encounter Details Date Type Department Care Team (Latest Contact Info) Description 11/22/2023 10:00 AM CDT Procedure visit Division of Rheumatology in [place], [place] 200 [place] [phone] Tammie Qiu APRN, C.N.P. [address] [place] [phone] Remigio Reese M.D. [address] [place] [phone] Arthritis Inflammatory (HCC) Social History Tobacco Use Types Packs/Day [...] at all 09/02/2022 [facility] - Occupational Stress Questionnaire Answer [...] your living situation today? I have a [facility] place to live 02/16/2023 Education Answer Date Recorded What is the highest level of school you have completed or the highest degree you have received? Bachelor's degree (e.g., BA, AB, BS) 01/24/2022 Comments No Sex and Gender Information Value Date Recorded Sex Assigned at Female 01/24/2022 7:37 PM BUGGY LADLE TENDER Legal Sex Female 10:28 AM CDT Gender Identity Female 01/24/2022 7:37 PM BUGGY LADLE TENDER Sexual Orientation Straight 01/24/2022 7: 37 PM BUGGY LADLE TENDER documented as of this encounter Progress Notes * Baljinder Mitchell R.N. - 11/22/2023 10:00 AM CDT SUBJECTIVE REASON FOR VISIT Patient verified they are here today for joint injection of right knee and joint aspiration of right knee. HISTORY OF PRESENT ILLNESS Anticoagulation therapy: No. Recent INR: NA Diabetes diagnosis: No Allergies to medications or supplies utilized during procedure: No Previous reaction to topical anesthetic: No OBJECTIVE ASSESSMENT Fall prevention interventions utilized: Walk With [place] Pain Score Pre-procedure: 3/10 Pain Score Post-procedure: 0/10 Please see Education History report within medical record for completed patient education. documented in this encounter Procedure Notes * Ivis Dubois M.D. - 11/22/2023 10:00 AM CDTAssociated Order(s): RHU US- Guided Aspiration/Injection - Large Joint: R knee joint Pre-Procedure Diagnose(s): Arthritis Inflammatory (HCC) Post-Procedure Diagnose(s): Arthritis Inflammatory (HCC) Knee site- R knee joint : aspiration and diagnostic-therapeutic injection Performed by: Ivis Dubois M.D. Authorized by: Tammie Qiu APRN, C.N.P. Care team members present 1. Remigio Reese M.D. PROCEDURE DETAILS Procedure Location knee Knee site: R knee joint Site prep: patient was prepped and draped in usual sterile fashion Patient position: supine Procedural approach: lateral Procedure [...] Complications: no apparent complications Post-procedure instructions: avoid strenuous activity for 2 days, avoid submersion of procedure site for 48 hours and post-procedure activity instructions provided Discharge instructions: ice area as needed for comfort, pain management instructions, dressing careand follow-up with ordering provider Cosigned by Remigio Reese M.D. at 11/22/2023 12:05 PM CDT Associated attestation - Remigio Reese M.D. - 11/22/2023 12:05 PM CDT I was present for the entirety of the procedure(s). documented in this encounter Plan of Treatment Upcoming Encounters Date Type Department Care Team (Late st Contact Info) Description 01/09/2024 10:15 AM BUGGY LADLE TENDER Clinical Communication Virtual Review in [address] [phone] 01/11/2024 2:00 PM BUGGY LADLE TENDER Appointment Department of Radiation Oncology in [place], [place] [address] [place] [phone] Tammie Hooks M.D., Ph.D. [address] [place] [phone] 01/17/2024 9:00 AM BUGGY LADLE TENDER Clinical Communication Virtual Review in [place], [place] 200 [place] [address] 01/19/2024 1:00 PM BUGGY LADLE TENDER Comprehensive Visit Department of Neurology in [address] [phone] Kory Alas M.B., Ch.B. [address] [place] [phone] 02/26/2024 9:30 AM BUGGY LADLE TENDER Lab Department of Laboratory Medicine and Pathology, [facility] in [address] [phone] Mc Mcknight M.D., Ph.D. [address] [place] [phone] 02/26/2024 11:30 AM BUGGY LADLE TENDER Appointment Department of Radiology, [facility] in [address] [phone] Mc Mcknight M.D., Ph.D. [address] [place] [phone] 02/26/2024 3:00 PM BUGGY LADLE TENDER Appointment Department of Radiology, [facility] in [address] [phone] Mc Mcknight M.D., Ph.D. [address] [place] [phone] 02/27/2024 1:40 PM BUGGY LADLE TENDER Office Visit Department of Oncology in [place], [place] [address] [place] [phone] Mc Mcknight M.D., Ph.D. [address] [place] [phone] documented as of this encounter Procedures Procedure Name Priority Date/Time Associated Diagnosis Comments IL ARTHCS ASP/INJ MJR JT W US Routine 11/22/2023 10:00 AM CDT Arthritis Inflammatory (HCC) documented in this encounter Results * IL ARTHCS ASP/INJ MJR JT W US (11/22/2023 [...] Arthritis Inflammatory (HCC) documented in this encounter Administered Medications Inactive Administered Medications - up to 3 most recent administrations Medication Order MAR Action Action Date Dose Rate Site lidocaine 10 mg/mL (1 %) injection 2 mL (Xylocaine) 2 mL, injection, One-Time Injection, Starting on Mon11/22/23 at 1000, For 1 doseIndications:Arthritis Inflammatory (HCC) Given 11/22/2023 10:00 AM CDT 2 mL triamcinolone acetonide injection 80 mg (Kenalog-40) 80 mg, intra-articular, One-Time Injection, Starting on Mon11/22/23 at 1000, For 1 doseIndications:Arthritis Inflammatory (HCC) Given 11/22/2023 10:00 AM CDT 80 mg documented in this encounter Care Teams Book Or Script Editor Relationship Specialty Start Date End Date Elsewhere, Pcp PCP - General Family Medicine 02/01/22 documented as of this encounter
--- OUTSIDE RECORDS SUMMARY | 2024-01-05 13:21 | XMS_ITS | Encounter Summary ---
Author Organization [facility] Address [address] [place] [address] Care Team Providers Care Credit Historian Name Role Phone Elsewhere, Pcp Primary Care Provider Unavailabl e Reason for Referral * Outpatient (Routine) - Closed Specialty Diagnoses / Procedures Referred By Ryan cronin Referred To Contact Dermatology Diagnoses Squamous Cell Carcinoma Of Skin Of Scalp And Neck Secondary Malignant Neoplasm Bone (HCC) Other Shelter Current Drug Therapy Blanche Monzon P.A.-C., M.S. 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 [address] [place] [phone] Phone: tel: fax: Department of Oncology in [place], [place] [address] [place] [address] Phone: tel: Referral ID Status Reason Start Date Expiration Date Visits Re quested Visits Authorized [id number] Closed 07/28/2023 07/27/2025 99 99 Encounter Details Date Type Department Care Team (Late st Contact Info) Description 09/19/2023 1:00 PM CDT Office Visit Department of Oncology in [place], [place] [address] [place] [phone] Blanche Monzon P.A.-C., M.S. 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 Not hard at all 09/02/2022 [facility] of Occupat ional [facility] - Occupational Stress Questionnaire Answer [...] living situation today? I have a [facility] place to live 02/16/2023 Education Answer Date Recorded What is the highest level of school you have completed or the highest degree you have received? Bachelor's degree (e.g., BA, AB, BS) 01/24/2022 Comments No Sex and Gender Information Value Date Recorded Sex Assigned at Female 01/24/2022 7:37 PM MGMT CONSULTANT Legal Sex Female 10:28 AM CDT Gender Identity Female 01/24/2022 7:37 PM MGMT CONSULTANT Sexual Orientation Straight 01/24/2022 7: 37 PM MGMT CONSULTANT documented as of this encounter Last Filed [...] REQUESTING PROVIDER Blanche Monzon P.A.-C., M.S. [address] [place] [address] PRIMARY COLLABORATING PROVIDER Mc Mcknight M.D., Ph.D. Blanche Monzon P.A.-C., M.S. COLLABORATING PROVIDER TODAY [facility], Nancy Bentley., Ph.D. CHIEF CONCERN Veronica Guevara is a 78 y.o. female with regionally advanced squamous cell carcinoma who presents today to for next cycle of cemiplimab. HISTORY OF PRESENT ILLNESS Oncology History Oncology History Squamous Cell Carcinoma Of Skin Of Scalp And Neck 07/2021 Initial Diagnosis July 2021: Noticed a lesion on the vertex of the scalp. Evaluated by cardiology coordinator Dr. Banuelos in [place] and was treated for possible psoriasis. The lesion persisted after 6 weeks. She was then treated with UV phototherapy between September and December of 2021. September 22, 2021---December 17, 2021: Underwent biopsy of the vertex scalp lesion which revealed squamous cell carcinoma. Incisional biopsy of left level 5 lymph node also revealed squamous cell carcinoma. 12/30/2021 Biopsy/Pathology A. Skin, scalp, vertex, excisional biopsy ([id number] B; 12/30/2021): Invasive poorly differentiated squamous cell carcinoma, transected at base and lateral edge of the specimen. B. Neck, left, soft tissue, biopsy ([id number]; 01/13/2022): Invasive poorly differentiated squamous cell carcinoma [...] cereal SOCIAL HISTORY Veronica Guevara lives in [place], [place], with her , Andre. Retired. PHYSICAL [...] Value Bilirubin, Direct, S <0.2 Thyroid Function Keenes Collection Time: 09/19/23 10:57 AM Result Value TSH, Sensitive 2.4 RADIOLOGICAL DATA Reviewed. 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 Also, reviewed the importance of maintaining ongoing care with local oncology team and primary care physician. BILLING I spent an additional 15 minutes beyond treatment clearance reviewing chart, managing above symptoms, and placing follow-up orders. documented in this encounter Plan of Treatment Upcoming Encounters Date Type Department Care Team (Late st Contact Info) Description 01/09/2024 10:15 AM MGMT CONSULTANT Clinical Communication Virtual Review in [place], [place] 200 [place] [address] 01/11/2024 2:00 PM MGMT CONSULTANT Appointment Department of Radiation Oncology in [address] [phone] Tammie Hooks M.D., Ph.D. [address] [place] [phone] 01/17/2024 9:00 AM MGMT CONSULTANT Clinical Communication Virtual Review in [place], [place] [address] [place] [address] 01/19/2024 1:00 PM MGMT CONSULTANT Comprehensive Visit Department of Neurology in [place], [place] [address] [place] [phone] Kory Alas M.B., Ch.B. [address] [place] [phone] 02/26/2024 9:30 AM MGMT CONSULTANT Lab Department of Laboratory Medicine and Pathology, [facility] in [place], [place] [address] [place] [phone] Mc Mcknight M.D., Ph.D. [address] [place] [phone] 02/26/2024 11:30 AM MGMT CONSULTANT Appointment Department of Radiology, [facility] in [address] [phone] Mc Mcknight M.D., Ph.D. [address] [place] [phone] 02/26/2024 3:00 PM MGMT CONSULTANT [facility] [address] [phone] Mc Mcknight M.D., Ph.D. [address] [place] [phone] 02/27/2024 1:40 PM MGMT CONSULTANT Office Visit Department of Oncology in [address] [phone] Mc Mcknight M.D., Ph.D. 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
--- OUTSIDE RECORDS SUMMARY | 2024-01-05 13:21 | XMS_ITS | Encounter Summary ---
Author Organization [facility] Address 200 [place] [address] Care Team Providers Care Office Rn Name Role Phone Elsewhere, Pcp Primary Care Provider Unavailabl e Reason for Referral * Outpatient (Routine) Specialty Diagnoses / Procedures Referred By Contac t Referred To Contact Oncology Diagnoses Other Technical Sales Consultant Current Drug Therapy Secondary Malignant Neoplasm Bone (HCC) Squamous Cell Carcinoma Of Skin Of Scalp And Neck Remigio Frey M.D., Ph.D. 200 [place] [address] Phone: tel: fax: Mc Mcknight M.D., Ph.D. 200 [place] [address] Phone: tel: fax: Referral ID Status Reason Start Date Expiration Date Visits Re quested Visits Authorized * Outpatient (Routine) Specialty Diagnoses / Procedures Referred By Contac t Referred To Contact Oncology Diagnoses Other Technical Sales Consultant Current Drug Therapy Secondary Malignant Neoplasm Bone (HCC) Squamous Cell Carcinoma Of Skin Of Scalp And Neck Remigio Frey M.D., Ph.D. [address] [place] [phone] Phone: tel: fax: Mc Mcknight M.D., Ph.D. [address] [place] [phone] Phone: tel: fax: Referral ID Status Reason Start Date Expiration Date Visits Re quested Visits Authorized * Outpatient (Routine) Specialty Diagnoses / Procedures Referred By Ryan cronin Referred To Contact Oncology Diagnoses Other Technical Sales Consultant Current Drug Therapy Secondary Malignant Neoplasm Bone (HCC) Squamous Cell Carcinoma Of Skin Of Scalp And Neck Remigio Frey M.D., Ph.D. [address] [place] [phone] Phone: tel: fax: Mc Mcknight M.D., Ph.D. [address] [place] [phone] Phone: tel: fax: Referral ID Status Reason Start Date Expiration Date Visits Re quested Visits Authorized Reason for Visit * Episode Based Medications (Routine) - Closed Specialty Diagnoses / Procedures Referred By Ryan cronin Referred To Contact Diagnoses Other Technical Sales Consultant Current Drug Therapy Secondary Malignant Neoplasm Bone (HCC) Squamous Cell Carcinoma Of Skin Of Scalp And Neck Blanche Monzon P.A.-C., M.S. [address] [place] [phone] Phone: tel: fax: Department of Oncology in [place], [place] 200 [place] [address] Phone: tel: Referral ID Status Reason Start Date Expiration Date Visits Re quested Visits Authorized [id number] Closed 07/28/2023 07/27/2025 99 [phone] Encounter Details Date Type Department Care Team (Late st Contact Info) Description 10/11/2023 1:00 PM CDT Office Visit Department of Oncology in [place], [place] 200 [place] [address] Remigio Frey M.D., Ph.D. [address] [place] [address] Squamous Cell Carcinoma Of Skin Of Scalp And Neck (Primary Dx); Other Technical Sales Consultant Current Drug Therapy; Secondary Malignant Neoplasm Bone [...] [facility] [place] of Occupat ional Health - Occupational Stress [...] your living situation today? [facility] 02/16/2023 Education Answer Date Recorded What is the highest level of school you have completed or the highest degree you have received? Bachelor's degree (e.g., BA, AB, BS) 01/24/2022 Comments No Sex and Gender Information Value Date Recorded Sex Assigned at Female 01/24/2022 7:37 PM DASHBOARD DEVELOPER Legal Sex Female 10:28 AM CDT Gender Identity Female 01/24/2022 7:37 PM DASHBOARD DEVELOPER Sexual Orientation Straight 01/24/2022 7: 37 PM DASHBOARD DEVELOPER documented as of this encounter Last Filed [...] the vertex of the scalp. Evaluated by associate director of development Dr. Banuelos in [place] and was treated for possible psoriasis. The lesion persisted after 6 weeks. She was then treated with UV phototherapy between September and December of 2021. September 22, 2021---December 17, 2021: Underwent biopsy of the vertex scalp lesion which revealed squamous cell carcinoma. Incisional biopsy of left level 5 lymph node also revealed squamous cell carcinoma. 12/30/2021 Biopsy/Pathology A. Skin, scalp, vertex, excisional biopsy ([id number] B; 12/30/2021): Invasive poorly differentiated squamous cell carcinoma, transected at base and lateral edge of the specimen. B. Neck, left, soft tissue, biopsy ([id number]; 01/13/2022): Invasive poorly differentiated squamous cell carcinoma [...] st Contact Info) Description 01/09/2024 10:15 AM DASHBOARD DEVELOPER Clinical Communication Virtual Review in [address] [phone] 01/11/2024 2:00 PM DASHBOARD DEVELOPER Appointment Department of Radiation Oncology in [address] [phone] Tammie Hooks M.D., Ph.D. [address] [place] [phone] 01/17/2024 9:00 AM DASHBOARD DEVELOPER Clinical Communication Virtual Review in [address] [phone] 01/19/2024 1:00 PM DASHBOARD DEVELOPER Comprehensive Visit Department of Neurology in [address] [phone] Kory Alas M.B., Ch.B. [address] [place] [phone] 02/26/2024 9:30 AM DASHBOARD DEVELOPER Lab Department of Laboratory Medicine and Pathology, [facility], in [address] [phone] Mc Mcknight M.D., Ph.D. [address] [place] [phone] 02/26/2024 11:30 AM DASHBOARD DEVELOPER Appointment Department of Radiology, [facility] in [place], [place] [address] [place] [phone] Mc Mcknight M.D., Ph.D. [address] [place] [phone] 02/26/2024 3:00 PM DASHBOARD DEVELOPER Appointment Department of Radiology, [place], [place] [address] [place] [phone] Mc Mcknight M.D., Ph.D. [address] [place] [phone] 02/27/2024 1:40 PM DASHBOARD DEVELOPER Office Visit Department of Oncology in [address] [phone] Mc Mcknight M.D., Ph.D. [address] [place] [phone] Scheduled Referrals Name Type Priority Associated Diagnoses Orde r Schedule Oncology office visit (clinic) Outpatient Referral Routine Other Halfway Current Drug Therapy Secondary Malignant Neoplasm Bone (HCC) Squamous Cell Carcinoma Of Skin Of Scalp And Neck Expected: 10/31/2023, Expires: 10/30/2024 Oncology office visit (clinic) Outpatient Referral Routine Other Technical Sales Consultant Current Drug Therapy Secondary Malignant Neoplasm Bone (HCC) Squamous Cell Carcinoma Of Skin Of Scalp And Neck Expected: 11/21/2023, Expires: 11/20/2024 Oncology office visit (clinic) Outpatient Referral Routine Other Technical Sales Consultant Current Drug Therapy Secondary Malignant Neoplasm Bone (HCC) Squamous Cell Carcinoma Of Skin Of Scalp And Neck Expected: 12/12/2023, Expires: 12/11/2024 documented as of this encounter Results * Thyroid Function Crawford (12/12/2023 10:40 AM CDT) TSH, Sensitive 2.9 0.3 - 4.2 mIU/L 12/12/2023 12:13 PM CDT DTL Blood (Blood, Venous) 12/12/2023 10:40 AM CDT 12/12/2023 11:39 AM CDT us Remigio Frey M.D., Ph.D. LAB BLOOD ADD-ON Fin al Result Performing Organization Address [facility] Co de Phone Number [facility] 200 [place] [address] * Bilirubin, Direct (12/12/2023 10:40 AM CDT) Pathologist [facility] Bilirubin, Direct, S <0.2 0.0 - 0.3 mg/dL 12/12/2023 12:13 PM CDT DTL Blood (Blood, Venous) 12/12/2023 10:40 AM CDT 12/12/2023 11:39 AM CDT us Remigio Frey M.D., Ph.D. LAB BLOOD ADD-ON Fin al Result Performing Organization Address [facility] Co de Phone Number [facility] 200 [place] [address], [place] [address] * Comprehensive Metabolic Panel (12/12/2023 10:40 AM CDT) Potassium, S 3.6 3.6 - 5.2 mmol/L 12/12/2023 12:13 PM CDT DTL Sodium, S 138 135 - 145 mmol/L 12/12/2023 12:13 PM CDT DTL Chloride, S 101 98 - 107 mmol/L 12/12/2023 12:13 PM CDT DTL Bicarbonate, S 25 22 - 29 mmol/L 12/12/2023 12:13 PM CDT DTL Anion Gap 12 7 - 15 12/12/2023 12:13 PM CDT DTL BUN (Blood Urea Nitrogen), S 21 6 - 21 mg/dL 12/12/2023 12:13 PM CDT DTL Creatinine 0.75 0.59 - 1.04 mg/dL 12/12/2023 12:13 PM CDT DTL Estimated GFR (eGFR) 81 >=60 mL/min/BS A 12/12/2023 12:13 PM CDT DTL Comment: Estimated GFR calculated using the 2020 CKD_EPI creatinine equation. Calcium, Total, S 9.3 8.8 - 10.2 mg/dL 12/12/2023 12:13 PM CDT DTL Glucose, S 121 70 - 140 mg/dL 12/12/2023 12:13 PM CDT DTL Protein, Total, S 6.5 6.3 - 7.9 g/dL 12/12/2023 12:13 PM CDT DTL Albumin, S 4.1 3.5 - 5.0 g/dL 12/12/2023 12:13 PM CDT DTL Aspartate Aminotransferase (AST), S 30 8 - 43 U/L 12/12/2023 12:13 PM CDT DTL Alkaline Phosphatase, S 93 35 - 104 U/L 12/12/2023 12:13 PM CDT DTL Alanine Aminotransferase (ALT), S 21 7 - 45 U/L 12/12/2023 12:13 PM CDT DTL Bilirubin, Total, S 0.5 0.0 - 1.2 mg/dL 12/12/2023 12:13 PM CDT DTL Blood (Blood, Venous) 12/12/2023 10:40 AM CDT 12/12/2023 11:39 AM CDT us Remigio Frey M.D., Ph.D. LAB BLOOD ADD-ON Fin al Result [facility] [address] [place] [address], [place] DTL [facility] [address] [place] [address] * (ABNORMAL) CBC with Differential, Blood (12/12/2023 10:40 AM CDT) [facility] Hemoglobin 13.4 11.6 - 15.0 g/dL 12/12/2023 11:29 AM CDT DTL Hematocrit 40.7 35.5 - 44.9 % 12/12/2023 11:29 AM CDT DTL Erythrocytes 4.45 3.92 - 5.13 x10(12)/L 12/12/2023 11:29 AM CDT DTL MCV 91.5 78.2 - 97.9 fL 12/12/2023 11:29 AM CDT DTL RBC Distrib Width 13.0 12.2 - 16.1 % 12/12/2023 11:29 AM CDT DTL Platelet Count 219 157 - 371 x10(9)/L 12/12/2023 11:29 AM CDT DTL Leukocytes 7.4 3.4 - 9.6 x10(9)/L 12/12/2023 11:29 AM CDT DTL Neutrophils 6.04 1.56 - 6.45 x10(9)/L 12/12/2023 11:29 AM CDT [facility] Lymphocytes 0.76(L) 0.95 - 3.07 x10(9)/L 12/12/2023 11:29 AM CDT DTL Monocytes 0.45 0.26 - 0.81 x10(9)/L 12/12/2023 11:29 AM CDT DTL Eosinophils 0.11 0.03 - 0.48 x10(9)/L 12/12/2023 11:29 AM CDT DTL Basophils 0.03 0.01 - 0.08 x10(9)/L 12/12/2023 11:29 AM CDT DTL Blood (Blood, Venous) 12/12/2023 10:40 AM CDT 12/12/2023 11:09 AM CDT Remigio Frey M.D., Ph.D. LAB BLOOD ADD-ON Fin al Result [facility] [address] [place] [address], [facility] [address] [place], [place] [phone] [place] [address] 200 [place] [address] * Thyroid Function Crawford (11/21/2023 9:59 AM CDT) Pathologist [facility] TSH, Sensitive 3.9 0.3 - 4.2 mIU/L 11/21/2023 11:10 AM CDT DTL Blood (Blood, Venous) 11/21/2023 9:59 AM CDT 11/21/2023 10:35 AM CDT us Remigio Frey M.D., Ph.D. LAB BLOOD ADD-ON Fin al Result Performing Organization Address City/[facility]/ZIP Co de Phone Number [facility] [address] [place], [place] [address] [place] [address] 200 [place] [address] * Bilirubin, Direct (11/21/2023 9:59 AM CDT) [facility] Bilirubin, Direct, S <0.2 0.0 - 0.3 mg/dL 11/21/2023 11:10 AM CDT DTL Blood (Blood, Venous) 11/21/2023 9:59 AM CDT 11/21/2023 10:35 AM CDT us Remigio Frey M.D., Ph.D. LAB BLOOD ADD-ON Fin al Result [facility] [address] [place], [place] [phone] [place] [address] 200 [place] [address] * (ABNORMAL) Comprehensive Metabolic Panel (11/21/2023 9:59 AM CDT) [facility] Potassium, S 4.2 3.6 - 5.2 mmol/L 11/21/2023 11:10 AM CDT DTL Sodium, S 139 135 - 145 mmol/L 11/21/2023 11:10 AM CDT DTL Chloride, S 102 98 - 107 mmol/L 11/21/2023 11:10 AM CDT DTL Bicarbonate, S 28 22 - 29 mmol/L 11/21/2023 11:10 AM CDT DTL Anion Gap 9 7 - 15 11/21/2023 11:10 AM CDT DTL BUN (Blood Urea Nitrogen), S 19 6 - 21 mg/dL 11/21/2023 11:10 AM CDT DTL Creatinine 0.70 0.59 - 1.04 mg/dL 11/21/2023 11:10 AM CDT DTL Estimated GFR (eGFR) 88 >=60 mL/min/BS A 11/21/2023 11:10 AM CDT DTL Comment: Estimated GFR calculated using the 2020 CKD_EPI creatinine equation. Calcium, Total, S 9.2 8.8 - 10.2 mg/dL 11/21/2023 11:10 AM CDT DTL Glucose, S 144(H) 70 - 140 mg/dL 11/21/2023 11:10 AM CDT DTL Protein, Total, S 6.8 6.3 - 7.9 g/dL 11/21/2023 11:10 AM CDT DTL Albumin, S 4.2 3.5 - 5.0 g/dL 11/21/2023 11:10 AM CDT DTL Aspartate Aminotransferase (AST), S 36 8 - 43 U/L 11/21/2023 11:10 AM CDT DTL Alkaline Phosphatase, S 116(H) 35 - 104 U/L 11/21/2023 11:10 AM CDT DTL Alanine Aminotransferase (ALT), S 21 7 - 45 U/L 11/21/2023 11:10 AM CDT DTL Bilirubin, Total, S <0.2 0.0 - 1.2 mg/dL 11/21/2023 11:10 AM CDT DTL Blood (Blood, Venous) 11/21/2023 9:59 AM CDT 11/21/2023 10:35 AM CDT us Remigio Frey M.D., Ph.D. LAB BLOOD ADD-ON Fin al Result [address] [address] DTL [facility] [address] [place] [address] * (ABNORMAL) CBC with Differential, Blood (11/21/2023 9:59 AM CDT) Hemoglobin 12.5 11.6 - 15.0 g/dL 11/21/2023 10:46 AM CDT DTL Hematocrit 37.9 35.5 - 44.9 % 11/21/2023 10:46 AM CDT DTL Erythrocytes 4.22 3.92 - 5.13 x10(12)/L 11/21/2023 10:46 AM CDT DTL MCV 89.8 78.2 - 97.9 fL 11/21/2023 10:46 AM CDT DTL RBC Distrib Width 12.1(L) 12.2 - 16.1 % 11/21/2023 10:46 AM CDT DTL Platelet Count 287 157 - 371 x10(9)/L 11/21/2023 10:46 AM CDT DTL Leukocytes 7.5 3.4 - 9.6 x10(9)/L 11/21/2023 10:46 AM CDT DTL Neutrophils 6.10 1.56 - 6.45 x10(9)/L 11/21/2023 10:46 AM CDT [facility] Lymphocytes 0.77(L) 0.95 - 3.07 x10(9)/L 11/21/2023 10:46 AM CDT DTL Monocytes 0.36 0.26 - 0.81 x10(9)/L 11/21/2023 10:46 AM CDT DTL Eosinophils 0.19 0.03 - 0.48 x10(9)/L 11/21/2023 10:46 AM CDT DTL Basophils 0.05 0.01 - 0.08 x10(9)/L 11/21/2023 10:46 AM CDT DTL Blood (Blood, Venous) 11/21/2023 9:59 AM CDT 11/21/2023 10:20 AM CDT Remigio Frey M.D., Ph.D. LAB BLOOD ADD-ON Fin al Result Performing Organization Address City/[facility]/ZIP Co de Phone Number [facility] 200 [place] [address], [facility] 200 [place], [place] [phone] [address] 200 [place] [address] * Thyroid Function Crawford (11/01/2023 11:39 AM CDT) TSH, Sensitive 3.2 0.3 - 4.2 mIU/L 11/01/2023 12:57 PM CDT DTL Blood (Blood, Venous) 11/01/2023 11:39 AM CDT 11/01/2023 12:00 PM CDT Remigio Frey M.D., Ph.D. LAB BLOOD ADD-ON Fin al Result Performing Organization Address City/[facility]/ZIP Co de Phone Number [facility] [address] 200 [place] [address] * Bilirubin, Direct (11/01/2023 11:39 AM CDT) Bilirubin, Direct, S <0.2 0.0 - 0.3 mg/dL 11/01/2023 12:57 PM CDT DTL Blood (Blood, Venous) 11/01/2023 11:39 AM CDT 11/01/2023 12:00 PM CDT us Remigio Frey M.D., Ph.D. LAB BLOOD ADD-ON Fin al Result Performing Organization Address City/[facility] Co de Phone Number [facility] [address] 200 [place] [address] * Comprehensive Metabolic Panel (11/01/2023 11:39 AM [...] CDT Remigio Frey M.D., Ph.D. LAB BLOOD ADD-ON Fin al Result [facility] [address] [place] [address], [facility] DTL [facility] [address] [place] [address] * (ABNORMAL) CBC with Differential, Blood (11/01/2023 [...] 11:38 AM CDT 11/01/2023 11:49 AM CDT us Remigio Frey M.D., Ph.D. LAB BLOOD ADD-ON Fin al Result [facility] [address] [place] [address], [facility] DTL [facility] [address] [place] [address] [facility] [address] [place] [address] documented in this encounter Visit Diagnoses Diagnosis Squamous Cell Carcinoma Of Skin Of Scalp And Neck- Primary Other Technical Sales Consultant Current Drug Therapy Secondary Malignant Neoplasm Bone (HCC) documented in this encounter Care Teams Office Rn Relationship Specialty Start Date End Date Elsewhere, Pcp PCP - General Family Medicine 02/01/22 documented as of this encounter
--- OUTSIDE RECORDS SUMMARY | 2024-01-05 13:21 | XMS_ITS | Encounter Summary ---
Author Organization [facility] Address [address] [place] [address] Care Team Providers Care Assistant Bookkeeper Name Role Phone Elsewhere, Pcp Primary Care Provider Unavailabl e Reason for Referral * Outpatient (Routine) - Authorized Specialty Diagnoses / Procedures Referred By Contac t Referred To Contact Radiation Oncology Tammie Hooks M.D., Ph.D. 200 [place] [address] Phone: tel: fax: [facility] Referral ID Status Reason Start Date Expiration Date V isits Requested Visits Authorized [id number] Authorized 10/11/2023 04/11/2025 1 1 Scheduling Instructions With scans * Outpatient (Routine) - Authorized Specialty Diagnoses / Procedures Referred By Ryan t Referred To Contact Neurology Diagnoses Squamous Cell Carcinoma Of Skin Of Scalp And Neck Tammie Hooks M.D., Ph.D. 200 [place] [address] Phone: tel: fax: [facility] Referral ID Status Reason Start Date Expiration Date V isits Requested Visits Authorized [id number] Authorized 10/11/2023 04/11/2025 1 1 * Outpatient (Routine) - Closed Specialty Diagnoses / Procedures Referred By Contac t Referred To Contact Radiation Oncology Tammie Hooks M.D., Ph.D. [address] [place] [phone] Phone: tel: fax: [facility] Referral ID Status Reason Start Date Expiration Date Visits Re quested Visits Authorized [id number] Closed 08/28/2023 02/26/2025 1 1 Reason for Visit * Outpatient (Routine) - Closed Specialty Diagnoses / Procedures Referred By Ryan t Referred To Contact Radiation Oncology Tammie Hooks M.D., Ph.D. [address] [place] [phone] Phone: tel: fax: [facility] Referral ID Status Reason Start Date Expiration Date Visits Re quested Visits Authorized [id number] Closed 08/28/2023 02/26/2025 1 1 Encounter Details Date Type Department Care Team (Latest Contact Info) Description 10/11/2023 3:30 PM CDT - 10/12/2023 10:05 AM CDT Hospital Encounter Department of Radiation Oncology in [place], [place] [address] [place] [phone] Tammie Hooks M.D., Ph.D. [address] [place] [phone] Squamous Cell Carcinoma Of Skin Of Scalp [...] week 01/24/2022 How often do you attend [facility]anda[facility] services? Never 01/24/2022 Do you [...] and heating? Not hard at all 09/02/2022 [facility] [place] of Occupat ional Health - Occupational Stress [...] Sex Assigned at Female 01/24/2022 7:37 PM BUFFING MACHINE TENDER Legal Sex Female 10:28 AM CDT Gender Identity Female 01/24/2022 7:37 PM BUFFING MACHINE TENDER Sexual Orientation Straight 01/24/2022 7: 37 PM BUFFING MACHINE TENDER documented as of this encounter Last Filed [...] this encounter Medications at Time of Discharge cholecalciferol (Vitamin D3) 50 mcg (2,000 Unit) tablet Take 1 tablet by mouth daily. hydrocortisone 2.5 % ointmentIndicati ons:Dermatitis Mix with [...] by mouth daily. 90 tablet 3 08/16/2023 methylcellulose, laxative, (CITRUCEL) 500 mg tablet Take [...] the vertex of the scalp. Evaluated by customer service supervisor Dr. Baunelos in [place] and was treated for possible psoriasis. The lesion persisted after 6 weeks. She was then treated with UV phototherapy between September and December of 2021. September 22, 2021---December 17, 2021: Underwent biopsy of the vertex scalp lesion which revealed squamous cell carcinoma. Incisional biopsy of left level 5 lymph node also revealed squamous cell carcinoma. 12/30/2021 Biopsy/Pathology A. Skin, scalp, vertex, excisional biopsy ([id number] and B; 12/30/2021): Invasive poorly differentiated squamous cell carcinoma, transected at base and lateral edge of the specimen. B. Neck, left, soft tissue, biopsy ([id number]; 01/13/2022): Invasive poorly differentiated squamous cell carcinoma [...] for a metastatic lesion. 08/08/2023 - Chemotherapy Cemiplimab-rw Start Date: 08/08/2023 OBJECTIVE PHYSICAL EXAMINATION General: Pleasant female in no apparent distress ASSESSMENT / PLAN Squamous cell carcinoma of scalp vertex Mrs. Guevara is a pleasant 78 year old female with hx of [id number] SqCC of the scalp vertex, 3.5 cmprimary, [...] Physician Radiation Oncology 10/11/23 8:23 PM CDT Cpo Service: Dr. Tammie Hooks MD, PhD Cosigned by Tammie Hooks M.D., Ph.D. at 10/12/2023 10:05 AM CDT Associated attestation - Tammie Hooks M.D., Ph.D. [...] also met with the patient for a emmw-si-xzym encounter to verify the history, discuss patient expectation and preference, and provide recommendations which are in agreement with those outlined by Dr. Ty Palma in the encounter of thisdate. 78 year old female with hx of [id number] SqCC of the scalp vertex, 3.5 cm [...] of the patient today. Time includes both dhm-gacv-tl-face yndsylh-iw-vyqh patient care. Tammie Hooks MD PhD Reduction Furnace Operator Cpo Radiation Oncology 10/12/23 10:00 AM CDT Pager: [phone] documented in this encounter Plan of Treatment Upcoming Encounters Date Type Department Care Team (Late st Contact Info) Description 01/09/2024 10:15 AM BUFFING MACHINE TENDER Clinical Communication Virtual Review in [place] [address] [place] [phone] 01/11/2024 2:00 PM BUFFING MACHINE TENDER Appointment Department of Radiation Oncology in [place], [place] [address] [place] [phone] Tammie Hooks M.D., Ph.D. [address] [place] [phone] 01/17/2024 9:00 AM BUFFING MACHINE TENDER Clinical Communication Virtual Review in [place], [place] 200 [place] [address] 01/19/2024 1:00 PM BUFFING MACHINE TENDER Comprehensive Visit Department of Neurology in [place], [place] [address] [place] [phone] Kory Alas M.B., Ch.B. [address] [place] [phone] 02/26/2024 9:30 AM BUFFING MACHINE TENDER Lab Department of Laboratory Medicine and Pathology, [facility] in [place], [place] [address] [place] [phone] Mc Mcknight M.D., Ph.D. [address] [place] [phone] 02/26/2024 11:30 AM BUFFING MACHINE TENDER Appointment Department of Radiology, [facility] in [place], [place] [address] [place] [phone] Mc Mcknight M.D., Ph.D. [address] [place] [phone] 02/26/2024 3:00 PM BUFFING MACHINE TENDER Appointment Department of Radiology, [facility] in [place], [place] [address] [place] [phone] Mc Mcknight M.D., Ph.D. [address] [place] [phone] 02/27/2024 1:40 PM BUFFING MACHINE TENDER Office Visit Department of Oncology in [place], [place] [address] [place] [address] Mc Mcknight M.D., Ph.D. 200 [place] [phone] Scheduled Referrals Name Type Priority Associated Diagnoses [...] Ph.D. LAB BLOOD ADD-ON Ciara l Result [facility] 200 [place] [address], [facility] 200 [place] [address] * Vitamin B12 Assay (11/01/2023 11:39 AM [...] AM CDT 11/01/2023 12:00 PM CDT us Tammie Hooks M.D., Ph.D. LAB BLOOD ADD-ON Ciara l Result [facility] [address] [place] [address], [facility] [address] [place] [address] documented in this encounter Visit Diagnoses Diagnosis Squamous Cell Carcinoma Of Skin Of Scalp And Neck- Primary documented in this encounter Care Teams Assistant Bookkeeper Relationship Specialty Start Date End Date Elsewhere, Pcp PCP - General Family Medicine 02/01/22 documented as of this encounter
--- OUTSIDE RECORDS SUMMARY | 2024-01-05 13:21 | XMS_ITS | Encounter Summary ---
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 [address] [place] [address] Phone: tel: fax: [facility] Referral ID Status Reason Start Date Expiration Date Visits Re quested Visits Authorized [id number] Closed 07/28/2023 07/27/2024 1 1 Encounter Details Date Type Department Care Team (Latest Contact Info) Description 10/11/2023 7:41 AM CDT - 10/11/2023 3:29 PM CDT Hospital Encounter Department of Radiology, [facility] in [place], [place] 200 [place] [phone] Blanche Monzon P.A.-C., M.S. [address] [place] [address] Squamous Cell Carcinoma Of Skin Of Scalp And Neck; Secondary Malignant Neoplasm Bone (HCC); Other [facility] Current Drug Therapy Discharge Disposition: Home or [...] [facility] of Occup[facility] ional [facility] - Occupational Stress Questionnaire Answer Date Recorded [...] today? I have a [facility] place to live 02/16/2023 Education Answer Date Recorded What is the highest level of school you have completed or the highest degree you have received? Bachelor's degree (e.g., BA, AB, BS) 01/24/2022 Comments No Sex and Gender Information Value Date Recorded Sex Assigned at Female 01/24/2022 7:37 PM FOOTWEAR STITCHER Legal Sex Female 10:28 AM CDT Gender Identity Female 01/24/2022 7:37 PM FOOTWEAR STITCHER Sexual Orientation Straight 01/24/2022 7: 37 PM FOOTWEAR STITCHER documented as of this encounter Medications at [...] st Contact Info) Description 01/09/2024 10:15 AM FOOTWEAR STITCHER Clinical Communication Virtual Review in [address] [phone] 01/11/2024 2:00 PM FOOTWEAR STITCHER Appointment Department of Radiation Oncology in [address] [phone] Tammie Hooks M.D., Ph.D. [address] [place] [phone] 01/17/2024 9:00 AM FOOTWEAR STITCHER Clinical Communication Virtual Review in [address] [phone] 01/19/2024 1:00 PM FOOTWEAR STITCHER Comprehensive Visit Department of Neurology in [address] [address] Kory Alas M.B., Ch.B. [address] [place] [phone] 02/26/2024 9:30 AM FOOTWEAR STITCHER Lab Department of Laboratory Medicine and Pathology, [facility], in [address] [address] Mc Mcknight M.D., Ph.D. [address] [place] [phone] 02/26/2024 11:30 AM FOOTWEAR STITCHER Appointment Department of Radiology, [place], in [place], [place] [address] [place] [phone] Mc Mcknight M.D., Ph.D. [address] [place] [phone] 02/26/2024 3:00 PM FOOTWEAR STITCHER Appointment Department of Radiology, [facility] in [place], [place] [address] [place] [phone] Mc Mcknight M.D., Ph.D. [address] [place] [phone] 02/27/2024 1:40 PM FOOTWEAR STITCHER Office Visit Department of Oncology in [address] [phone] Mc Mcknight M.D., Ph.D. 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 Blanche Monzon P.A.-C. M.S. 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
--- OUTSIDE RECORDS SUMMARY | 2024-01-05 13:21 | XMS_ITS | Encounter Summary ---
Author Organization [facility] Address [address] [place] [address] Care Team Providers Care Ground Crew Chief Name Role Phone Elsewhere, Pcp Primary Care Provider Unavailabl e Reason for Visit * Reason Onset Date Comments Blood Pressure 10/09/2023 Encounter Details Date Type Department Care Team (Latest Contact Info) Description 10/09/2023 10:45 AM CDT Clinical Communication Virtual Review in [place], [place] [address] [place] [address] Blood Pressure Social History Tobacco Use Types [...] and heating? Not hard at all 09/02/2022 [facility] - Occupational Stress [...] Sex Assigned at Female 01/24/2022 7:37 PM DISTRICT ADVISER Legal Sex Female 10:28 AM CDT Gender Identity Female 01/24/2022 7:37 PM DISTRICT ADVISER Sexual Orientation Straight 01/24/2022 7: 37 PM DISTRICT ADVISER documented as of this encounter Plan of Treatment Upcoming Encounters Date Type Department Care Team (Late st Contact Info) Description 01/09/2024 10:15 AM DISTRICT ADVISER Clinical Communication Virtual Review in [address] [phone] 01/11/2024 2:00 PM DISTRICT ADVISER Appointment Department of Radiation Oncology in [place], [place] [address] [place] [phone] Tammie Hooks M.D., Ph.D. [address] [place] [phone] 01/17/2024 9:00 AM DISTRICT ADVISER Clinical Communication Virtual Review in [place], [place] 200 [place] [address] 01/19/2024 1:00 PM DISTRICT ADVISER Comprehensive Visit Department of Neurology in [place], [place] [address] [place] [address] Kory Alas M.B., Ch.B. [address] [place] [phone] 02/26/2024 9:30 AM DISTRICT ADVISER Lab Department of Laboratory Medicine and Pathology, [facility] in [place], [place] [address] [place] [address] Mc Mcknight M.D., Ph.D. [address] [place] [phone] 02/26/2024 11:30 AM DISTRICT ADVISER Appointment Department of Radiology, [facility] in [place], [place] [address] [place] [phone] Mc Mcknight M.D., Ph.D. [address] [place] [phone] 02/26/2024 3:00 PM DISTRICT ADVISER Appointment Department of Radiology, [facility] in [place], [place] [address] [place] [address] Mc Mcknight M.D., Ph.D. [address] [place] [phone] 02/27/2024 1:40 PM DISTRICT ADVISER Office Visit Department of Oncology in [place], [place] [address] [place] [phone] Mc Mcknight M.D., Ph.D. [address] [place] [phone] documented as of this encounter Visit Diagnoses Not on filedocumented in this encounter Care Teams Ground Crew Chief Relationship Specialty Start Date End Date Elsewhere, Pcp PCP - General Family Medicine 02/01/22 documented as of this encounter
--- OUTSIDE RECORDS SUMMARY | 2024-01-05 13:21 | XMS_ITS | Encounter Summary ---
Author Organization [facility] Address [address] [place] [address] Care Team Providers Care Feather Sawyer Name Role Phone Elsewhere, Pcp Primary Care Provider Unavailabl e Reason for Visit * Episode Based Medications (Routine) - Closed Specialty Diagnoses / Procedures Referred By Contgiana t Referred To Contact Diagnoses Other Underwriting Analyst Current Drug Therapy Secondary Malignant Neoplasm Bone (HCC) Squamous Cell Carcinoma Of Skin Of Scalp And Neck Blanche Monzon P.A.-C., M.S. [address] [place] [address] Phone: tel: fax: Department of Oncology in [place], [place] 200 [place] [address] Phone: tel: Referral ID Status Reason Start Date Expiration Date Visits Re quested Visits Authorized [id number] Closed 07/28/2023 07/27/2025 99 99 Encounter Details Date Type Department Care Team (Late st Contact Info) Description 10/11/2023 2:00 PM CDT Infusion Department of Oncology in [place], [place] [address] [place] [phone] Blanche Monzon P.A.-C., M.S. [address] [place] [address] Malignant Neoplasm Of Neck Squamous Cell (Primary Dx); Other Care Home Current Drug Therapy; Secondary Malignant Neoplasm [...] often do you attend [facility] or orthodox services? Never 01/24/2022 Do you [...] Frequency of Binge Drinking Not on file 11/2 03/2021 Overall Financial Resource Strain (CARDIA) Answe r Date Recorded How hard is it for you to pa y for the very basics like food, housing, medical care, and heating? Not hard at all 09/02/2022 [facility] [place] of Occupat ional Health - Occupational Stress [...] Sex Assigned at Female 01/24/2022 7:37 PM HORSE SHOW JUDGE Legal Sex Female 10:28 AM CDT Gender Identity Female 01/24/2022 7:37 PM HORSE SHOW JUDGE Sexual Orientation Straight 01/24/2022 7: 37 PM HORSE SHOW JUDGE documented as of this encounter Plan of Treatment Upcoming Encounters Date Type Department Care Team (Late st Contact Info) Description 01/09/2024 10:15 AM HORSE SHOW JUDGE Clinical Communication Virtual Review in [address] [phone] 01/11/2024 2:00 PM HORSE SHOW JUDGE Appointment Department of Radiation Oncology in [address] [phone] Tammie Hooks M.D., Ph.D. [address] [place] [phone] 01/17/2024 9:00 AM HORSE SHOW JUDGE Clinical Communication Virtual Review in [address] [phone] 01/19/2024 1:00 PM HORSE SHOW JUDGE Comprehensive Visit Department of Neurology in [address] [phone] Kory Alas M.B., Ch.B. [address] [place] [phone] 02/26/2024 9:30 AM HORSE SHOW JUDGE Lab Department of Laboratory Medicine and Pathology, [facility] in [place], [place] [address] [place] [phone] Mc Mcknight M.D., Ph.D. [address] [place] [phone] 02/26/2024 11:30 AM HORSE SHOW JUDGE Appointment Department of Radiology, [facility] in [place], [place] [address] [place] [phone] Mc Mcknight M.D., Ph.D. [address] [place] [phone] 02/26/2024 3:00 PM HORSE SHOW JUDGE Appointment Department of Radiology, [facility] in [place], [place] [address] [place] [address] Mc Mcknight M.D., Ph.D. [address] [place] [phone] 02/27/2024 1:40 PM HORSE SHOW JUDGE Office Visit Department of Oncology in [place], [place] [address] [place] [phone] Mc Mcknight M.D., Ph.D. [address] [place] [phone] documented as of this encounter Visit Diagnoses Diagnosis Malignant Neoplasm Of Neck Squamous Cell- Primary Other Underwriting Analyst Current Drug Therapy Secondary Malignant Neoplasm [...] in-line or add-on 0.2-micron to 5-micron filter.Indications:Other Underwriting Analyst Current Drug Therapy,Secondary Malignant Neoplasm Bone (HCC),Squamous Cell Carcinoma Of Skin Of Scalp And Neck New Bag 10/11/2023 3:16 PM CDT 350 mg 564 mL/hr documented in this encounter Care Teams Feather Sawyer Relationship Specialty Start Date End Date Elsewhere, Pcp PCP - General Family Medicine 02/01/22 documented as of this encounter
--- OUTSIDE RECORDS SUMMARY | 2024-01-05 13:21 | XMS_ITS | Encounter Summary ---
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 [address] [place] [phone] Phone: tel: fax: [facility] Referral ID Status Reason Start Date Expiration Date Visits Re quested Visits Authorized [id number] Closed 07/28/2023 07/27/2024 1 1 Encounter Details Date Type Department Care Team (Latest Contact Info) Description 10/11/2023 6:45 AM CDT - 10/11/2023 7:40 AM CDT Hospital Encounter Department of Radiology, [facility], in [place], [place] 200 [place] [address] Blanche Monzon P.A.-C., M.S. 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 Not hard at all 09/02/2022 [facility] - Occupational Stress Questionnaire Answer Date Recorded [...] your living situation today? I have a [facility] place to live 02/16/2023 Education Answer Date Recorded What is the highest level of school you have completed or the highest degree you have received? Bachelor's degree (e.g., BA, AB, BS) 01/24/2022 Comments No Sex and Gender Information Value Date Recorded Sex Assigned at Female 01/24/2022 7:37 PM MAINFRAME ANALYST Legal Sex Female 10:28 AM CDT Gender Identity Female 01/24/2022 7:37 PM MAINFRAME ANALYST Sexual Orientation Straight 01/24/2022 7: 37 PM MAINFRAME ANALYST documented as of this encounter Medications [...] st Contact Info) Description 01/09/2024 10:15 AM MAINFRAME ANALYST Clinical Communication Virtual Review in [address] [phone] 01/11/2024 2:00 PM MAINFRAME ANALYST Appointment Department of Radiation Oncology in [address] [phone] Tammie Hooks M.D., Ph.D. [address] [place] [phone] 01/17/2024 9:00 AM MAINFRAME ANALYST Clinical Communication Virtual Review in [address] [phone] 01/19/2024 1:00 PM MAINFRAME ANALYST Comprehensive Visit Department of Neurology in [address] [phone] Kory Alas M.B., Ch.B. [address] [place] [phone] 02/26/2024 9:30 AM MAINFRAME ANALYST Lab Department of Laboratory Medicine and Pathology, [facility], in [address] [address] Mc Mcknight M.D., Ph.D. [address] [place] [phone] 02/26/2024 11:30 AM MAINFRAME ANALYST Appointment Department of Radiology, [facility] in [place], [place] [address] [place] [phone] Mc Mcknight M.D., Ph.D. [address] [place] [phone] 02/26/2024 3:00 PM MAINFRAME ANALYST Appointment Department of Radiology, [facility] in [place], [place] [address] [place] [phone] Mc Mcknight M.D., Ph.D. [address] [place] [phone] 02/27/2024 1:40 PM MAINFRAME ANALYST Office Visit Department of Oncology in [place], [place] [address] [place] [phone] Mc Mcknight M.D., Ph.D. 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 Blanche Monzon P.A.-C., M.S. [facility] CT PROCEDURE S Final Result * CT [...] interstitial lung disease. Blanche Monzon P.A.-C. M.S. IM CT PROCEDURE [...] soft tissue mass. Blanche Monzon P.A.-C. M.S. [facility] CT PROCEDURE S Final Result documented in this encounter Visit Diagnoses Diagnosis Squamous Cell Carcinoma Of Skin Of Scalp And Neck Secondary Malignant Neoplasm Bone (HCC) Other Nursing [...] mL documented in this encounter Care Teams Powder Mixer Relationship Specialty Start Date End Date Elsewhere, Pcp PCP - General Family Medicine 02/01/22 documented as of this encounter
== END 2024-01-05 13:16 | disposition home or self-care (01) ==
LOC: MAMMO 13:16
PROVIDERS: PCP Family Medicine; Visit Provider Family Medicine
DX: Z12.31 Encounter for screening mammogram for malignant neoplasm of breast (principal)
CPT/HCPCS: 77063; 77067

== ENCOUNTER 2024-02-12 12:14 | Emergency (ER) | payer MEDICARE, OTHER, SELFPAY ==
[2024-02-12 12:33] VITALS: BP 109/69; PULSE 93; RESP 16; TEMP 36.2; O2SAT 98; BMI 21.6
--- NOTE | 2024-02-12 12:47 | CRLHL7_ITS ---
For Patients: As a result of the Century Cures Act, medical imaging exams and procedure reports are released immediately into your electronic medical record. You may view this report before your referring provider. If you have questions, please contact your health care provider. INDICATION: Leg pain and swelling TECHNIQUE: Ultrasound venous duplex lower left extremity. Compression venous exam was performed using abreu-scale, color Doppler, and spectral Doppler analysis. COMPARISON: None. FINDINGS: Sonographic imaging demonstrates the left common femoral, deep femoral, superficial femoral, popliteal, posterior tibial and greater saphenous and the contralateral right common femoral veins to be fully compressible with normal color Doppler blood flow. Demonstration septated fluid collection within the popliteal fossa measuring up to 3.8 centimeters. There is an additional small collection measuring 3.7 centimeters. IMPRESSION: No evidence of deep venous thrombosis. 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 Dictated by Nicolas Tavares MD @ 02/12/2024 2:19:07 PM (Electronically Signed)
[2024-02-12 14:15] VITALS: BP 103/62; PULSE 71; RESP 16; TEMP 36.1; O2SAT 97
--- NOTE | 2024-02-12 14:41 | ED_ITS ---
HPI - General Adult General Date Seen: 02/12/24 Chief complaint: Lower Extremity Swelling Stated complaint: leg swelling and pain Time Seen by Provider: 02/12/24 14:40 History of Present Illness HPI narrative: 78-year-old female presenting to the ER today pain in her left lower calf with swelling and tenderness. Pain has been there for about 2 weeks and main getting worse over time. She has no previous history of DVT or PE. 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 She has been through radiation therapy and is now on immunotherapy. She also has a history of GERD, tricuspid regurg, sensorineural hearing loss. She follows with [facility] for her oncology care. Because of her immunotherapy she has developed some arthritis. She recently had arthritis with a joint effusion in her right knee which is now better after she had aspirations and cortisone injection. For the past couple of weeks she has developed some pain in the popliteal fossa of h er left knee. It really started at the very proximal end of the gastrocs a couple weeks ago and has been getting steadily worse over time. She is now also having pain and swelling affecting that the medial aspect of the popliteal fossa just at the distal end of the femur. She has not had any swelling in her ankle. No bruising in her calf. She has been driving back and forth the [place] in the [facility] for doctor appointments but no long car rides or plane flights. She has not had any chest pain or trouble breathing. No fevers. No redness of the knee. Related Data Home Medications ?Medication ?Instructions ?Recorded ?Confirmed nystatin 100,000 unit/gram topical 1 applic topical .2-3X/Day 12/22/21 02/12/24 cream coenzyme Q10 100 mg capsule (Co 100 mg PO QDAY 07/21/22 02/12/24 Q-10) triamcinolone acetonide 0.1 % 1 applic topical BID PRN 04/19/23 02/12/24 topical cream ketoconazole 2 % shampoo 1 applic topical Q14D 10/18/23 02/12/24 ketoconazole 2 % topical cream applic topical 10/18/23 10/25/23 Previous Rx's ?Medication ?Instructions ?Recorded cholecalciferol (vitamin D3) 50 50 mcg PO QDAY #90 caps 10/18/23 mcg (2,000 unit) capsule levothyroxine 50 mcg tablet 50 mcg PO QDAY #90 tabs 10/18/23 rosuvastatin 10 mg tablet 10 mg PO QDAY #90 tabs 10/18/23 alendronate 70 mg tablet (Fosamax) 70 mg PO QWEEK #14 tabs 11/22/23 Allergies Allergy/AdvReac Type Severity Reaction Status Date / Time Penicillins Allergy Unknown Verified 02/12/24 12:44 Sulfa (Sulfonamide Allergy Unknown Verified 02/12/24 12:44 Antibiotics) mold and smuts Allergy Unknown weepy eyes Uncoded 10/25/23 15:23 [facility] Medical History (Updated 02/12/24 @ 15:01 by Filippo Collazo MD) Hx of Clostridium difficile infection (12/2022) ?Z86.19 - Personal history of other infectious and parasitic diseases (ICD- 10) Pulmonary nodules ?R91.8 - Other nonspecific abnormal finding of lung field (ICD-10) Thyroid nodule ?E04.1 - Nontoxic single thyroid nodule (ICD-10) Tricuspid valve regurgitation (2022) ?I07.1 - Rheumatic tricuspid insufficiency (ICD-10) Skin cancer of scalp (07/2021) ?C44.40 - Unspecified malignant neoplasm of skin of scalp and neck (ICD-10) Lymphadenopathy of head and neck (12/2021) ?R59.1 - Generalized enlarged lymph nodes (ICD-10) Memory problem (~03/2021) ?R41.3 - Other amnesia (ICD-10) Osteoporosis (10/26/20) ?M81.0 - Age-related osteoporosis without current pathological fracture (ICD- 10) Nonalcoholic fatty liver disease (2019) ?K76.0 - Fatty (change of) liver, not elsewhere classified (ICD-10) Microscopic colitis (2018) ?K52.839 - Microscopic colitis, unspecified (ICD-10) Lichen planus pigmentosus (2019) ?L43.8 - Other lichen planus (ICD-10) History of vitamin D deficiency ?Z86.39 - Personal history of other endocrine, nutritional and metabolic disease (ICD-10) Hereditary and idiopathic peripheral neuropathy ?G60.9 - Hereditary and idiopathic neuropathy, unspecified (ICD-10) Gastroesophageal reflux disease (2011) ?K21.9 - Gastro-esophageal reflux disease without esophagitis (ICD-10) Dyslipidemia ?E78.5 - Hyperlipidemia, unspecified (ICD-10) Dry eye syndrome ?H04.129 - Dry eye syndrome of unspecified lacrimal gland (ICD-10) Aortic valve regurgitation (2004) ?I35.1 - Nonrheumatic aortic (valve) insufficiency (ICD-10) Surgical History (Updated 10/18/23 @ 08:23 by Stephanie Ly MD) History of SCC (squamous cell carcinoma) of skin (07/2021) ?Z85.828 - Personal history of other malignant neoplasm of skin (ICD-10) History of phacoemulsification of cataract of both eyes with intraocular lens implantation (07/2021) ?Z98.41 - Cataract extraction status, right eye (ICD-10) ?Z98.42 - Cataract extraction status, left eye (ICD-10) ?Z96.1 - Presence of intraocular lens (ICD-10) History of tonsillectomy (1967) ?Z90.89 - Acquired absence of other organs (ICD-10) History of knee surgery (2018) ?Z98.890 - Other specified postprocedural states (ICD-10) History of hysterectomy (2017) ?Z90.710 - Acquired absence of both cervix and uterus (ICD-10) History of dental surgery (2017) ?Z92.89 - Personal history of other medical treatment (ICD-10) History of colonoscopy (01/18/18) ?Z98.890 - Other specified postprocedural states (ICD-10) Family History (Updated 12/21/21 @ 13:04 by Stephanie Ly MD) Paternal Grandmother Heart disease Diabetes Sister Multiple sclerosis Alzheimers disease Mother Alzheimers disease Maternal Grandmother Alzheimers disease Family/Other Lung cancer FH: testicular cancer Social History (Updated 10/18/23 @ 08:21 by Reba Lopez ~ CTA) Narrative: , retired, 3 kids, nonsmoker does not drink alcohol, Exercise 5 days a week walking and physical therapy What is your current living situation?: I presently have a place to live Problems where you live: no known problems In the past 12 months, utilities in danger of being shut off: no In the past 12 mos, have been you worried that your food would run out before you had money to buy more?: never true In the past 12 mos, the food you bought just didn't last and you didn't have money to buy more?: never true Smoking Status: Former smoker Do you use any of these nicotine containing products: None Second hand tobacco smoke exposure: No How often do you have a drink containing alcohol: never AUDIT-C Alcohol total score: 0 Non-prescribed substance use: denies use How often does anyone, including family, friends and others, physically hurt you : never How often does anyone, including family, friends and others, insult or talk down to you: rarely How often does anyone, including family, friends and others, threaten you with harm: never How often does anyone, including family, friends and others, scream or curse at you: never Health Related Social Needs: Other personal risk factors, not elsewhere classified (Z91.89) Exam Narrative: Exam Narrative: Constitutional: Appears well-developed and well-nourished. Active. Non-toxic appearing. Very polite. HENT: Head: Atraumatic. No signs of injury. Nose: No nasal discharge. Mouth/Throat: Mucous membranes are moist. Pharynx is normal. Tonsils symmetric. Uvula midline. Airway patent. Eyes: Conjunctivae normal and EOM are normal. Pupils are equal, round, and reactive to light. Right eye exhibits no discharge. Left eye exhibits no discharge. No icterus. Neck: Normal range of motion. Neck supple. No adenopathy. No stridor. Cardiovascular: Normal rate and regular rhythm. Normal DP pulse Brisk capillary refill Pulmonary/Chest: Effort normal. No stridor. No respiratory distress Musculoskeletal: Normal range of motion. In her hips. Ankles normal. Right knee normal inspection. No redness. No swelling. Left knee: Anteriorly normal inspection. No redness. No swelling. No prepatellar swelling. No palpable joint effusion. Normal range of motion. She is mildly tender in the popliteal fossa on the does seem to be some fullness there. No erythema. No warmth. Gastroc and calf are nontender. Achilles nontender. Hamstring, quadriceps and femoral shaft are nontender. No edema. Neurological: Alert. Normal strength. No cranial nerve deficit or sensory deficit. Coordination normal. GCS eye subscore is 4. GCS verbal subscore is 5. GCS motor subscore is 6. Skin: Skin is warm. No rash noted. Const: Vital Signs, click to edit/add: Vital Signs - 24 hr 02/12/24 12:33 02/12/24 14:15 Temperature 97.1 F L 97.0 F L Pulse Rate [Pulse Oximeter] 93 71 Respiratory Rate 16 16 Blood Pressure [Ri ght Upper Arm] 109/69 103/62 Pulse Oximetry 98 97 Oxygen Delivery Me thod Room Air Room Air Course Vital Signs Vital signs: Initial Vital Signs Temperature 97.1 F L 02/12/24 12:33 Temperature Source Temporal Artery Scan 02/12/24 12:33 Pulse Rate 93 02/12/24 12:33 Respiratory Rate 16 02/12/24 12:33 Blood Pressure 109/69 02/12/24 12:33 Blood Pressure Mean 82 02/12/24 12:33 Blood Pressure Position Sitting 02/12/24 12:33 Pulse Oximetry 98 02/12/24 12:33 Oxygen Delivery Method Room Air 02/12/24 12:33 Vital Signs Temperature 97.1 F L 02/12/24 12:33 Pulse Rate 93 02/12/24 12:33 Respiratory Rate 16 02/12/24 12:33 Blood Pressure 109/69 02/12/24 12:33 Pulse Oximetry 98 02/12/24 12:33 Oxygen Delivery Method Room Air 02/12/24 12:33 Temperature 97.0 F L 02/12/24 14:15 Pulse Rate 71 02/12/24 14:15 Respiratory Rate 16 02/12/24 14:15 Blood Pressure 103/62 02/12/24 14:15 Pulse Oximetry 97 02/12/24 14:15 Oxygen Delivery Method Room Air 02/12/24 14:15 Medical Decision Making [facility] Narrative Medical decision making narrative: Very pleasant 78-year-old female with a history of 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 She follows with oncology at [facility]. She has no history of DVT but has been having some trouble with arthritis apparently the which are due to side effects of her immunotherapy. She presents with a couple weeks of atraumatic left posterior knee pain and left proximal calf pain. Initial concern is for possible DVT in the left lower extremity. Ultrasound is negative for DVT but does show evidence for a complex fluid collection suggestive of a Qiu cyst. I think this is likely the cause for the patient's pain. Would recommend close outpatient follow-up with her doctors at [facility] to consider aspiration, steroid injection, or surgical resection for the Qiu cyst. Clinical exam does not show any evidence for other causes of knee pain. No history of trauma to raise concern for fracture. No evidence for arterial ischemia on the left leg. No evidence for any septic joint infection or cellulitis of the skin around the knee. At this point I do not think she needs MRI, plain films, laboratory workup. Precautions for return to the ER reviewed and and plan for follow-up reviewed with the patient. She is in agreement. We discussed rest, ice, elevation, compression. NSAIDs 600 mg 2-3 times daily as needed for a couple of days. She will follow-up with her doctors at [facility]. We did push the images of her ultrasound electronically to the [facility] geophysical observer and also provided the patient with a digital copy of her images this she can take that with her. Imaging Data US venous LLE: Attestation: I have reviewed the pertinent imaging results. Radiologist's impression: FINDINGS: Sonographic imaging demonstrates the left common femoral, deep femoral, superficial femoral, popliteal, posterior tibial and greater saphenous and the contralateral right common femoral veins to be fully compressible with normal color Doppler blood flow. Demonstration septated fluid collection within the popliteal fossa measuring up to 3.8 centimeters. There is an additional small collection measuring 3.7 centimeters. IMPRESSION: No evidence of deep venous thrombosis. 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 Discharge Plan Discharge Clinical Impression: Qiu's cyst Patient Disposition: Home, Self-Care Condition: Stable Instructions: Qiu Cyst (ED) Additional Instructions: As we discussed, please come back to the ER right away if you have any concerns. Please call your doctors at [facility] tomorrow to arrange an outpatient follow-up for within 5-7 days for recheck and further treatment of your Qiu's cyst. Prescriptions: No Action nystatin 100,000 unit/gram cream 1 applic topical .2-3X/Day coenzyme Q10 [Co Q-10] 100 mg capsule 100 mg PO QDAY triamcinolone acetonide 0.1 % cream 1 applic topical BID PRN ketoconazole 2 % cream topical ketoconazole 2 % shampoo 1 applic topical Q14D rosuvastatin 10 mg tablet 10 mg PO QDAY Qty: 90 3RF levothyroxine 50 mcg tablet 50 mcg PO QDAY Qty: 90 3RF cholecalciferol (vitamin D3) 50 mcg (2,000 unit) capsule 50 mcg PO QDAY Qty: 90 1RF alendronate [Fosamax] 70 mg tablet 70 mg PO QWEEK Qty: 14 3RF Follow Up/Referrals: Stephanie Ly MD [Primary Care Provider] - Stand Alone Forms: [employer] Info Instructions
--- OUTSIDE RECORDS SUMMARY | 2024-02-12 15:03 | XMS_ITS | Clinical Summary ---
Author Organization [facility] Address [address] [place] [address] Care Team Providers Care Rn Gynecology Name Role Phone Elsewhere, Pcp Primary Care Provider Unavailabl e Source Comments Patient records contain information from all sites at [facility]. For routine questions regarding patient records, call [phone] during business hours, M-F 8:00 AM - 5:00 PM Central Time. Record requests for emergency care only can be directed to [phone] at any time.[facility] Allergies Active Allergy Reactions Criticality Noted Date [...] tablet Take 100 mg by mouth daily. 12/23/19 22 Active UNABLE TO FIND Take 1 each [...] over the supragluteal cleft 60 g 11 12/22/19 23 Active ketoconazole (NIZORAL) 2 % shampoo Apply 1 Application topically 3 (three) times a week. Apply to damp skin, lather, leave on 5 minutes, and rinse 120 mL 03/24/19 24 Active hydrocortisone 2.5 % ointmentIndica tions:Dermatit is Mix with the ketoconazole and apply twice daily for up to 2 weeks as a time for flares of rash involving the buttocks, under the breast, or on the face. 30 g 03/23/19 24 Active Additional Information Patient taking differently: Mix with the ketoconazole and apply twice daily for up to 2 weeks as a time for flares of rash involving the buttocks, under the breast, or on the face. PRN, Reported on 01/17/2024 methylcellulos e, laxative, (CITRUCEL) 500 mg tablet Take by mouth daily. Heaping tablespoon in water once daily Active levothyroxine (Synthroid) 50 mcg tablet Take 1 tablet (50 mcg total) by mouth daily. 90 tablet 3 08/16/19 24 025 Active multivitamin tablet Take 1 tablet by mouth daily. Centrum Womens Active CALCIUM ORAL Take 1 tablet by mouth daily. Active MAGNESIUM ORAL Take 1 tablet by mouth daily. Active erythromycin (Romycin) 5 mg/gram (0.5 %) ophthalmic ointment Apply 1 cm to left eye at bedtime. 3.5 g 1 11/10/19 24 Active Additional Information Patient taking differently:1 cm left eye Daily at bedtime,PRN, Reported on 01/17/2024 tacrolimus (Protopic) 0.1 % ointment Apply 1 Application topically 2 (two) times a day. Apply approximately 2-4 grams to affected areas. 100 g 11/10/19 24 Active Additional Information Patient taking differently:1 Application topicalAs needed, Apply approximately 2-4 grams to affected areas., Reported on 01/17/2024 alendronate (Fosamax) 70 mg tablet Take 1 tablet by mouth every 7 (seven) days. 11/22/19 24 Active cholecalcifero l (Vitamin D3) 50 mcg (2,000 Unit) capsule Take 1 capsule by mouth daily. 10/18/19 24 Active cholecalcifero l (Vitamin D3) 50 mcg (2,000 Unit) tablet Take 1 tablet by mouth daily. 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 Date Type Department Care Team Description 01/19/2024 1:00 PM MILLING MACHINIST Comprehensive Visit Department of Neurology in [address] [phone] Kory Alas M.B., Ch.B. Loss Memory (Primary Dx); Squamous Cell Carcinoma Of Skin Of Scalp And Neck 01/17/2024 9:00 AM MILLING MACHINIST Clinical Communication Virtual Review in [place], [place] [address] [place] [address] Pre-visit Intake 01/11/2024 1:27 PM MILLING MACHINIST - 01/11/2024 3:16 PM MILLING MACHINIST Hospital Encounter Department of Radiation Oncology in [place], [place] [address] [place] [phone] Tammie Hooks M.D., Ph.D. Squamous Cell Carcinoma Of Skin Of Scalp And Neck (Primary Dx) 01/02/2024 1:00 PM CDT Office Visit Department of Oncology in [address] [phone] Mc Mcknight M.D., Ph.D. Other Prison Current Drug Therapy; Secondary Malignant Neoplasm Bone (HCC); Squamous Cell Carcinoma Of Skin Of Scalp And Neck 01/02/2024 6:29 AM CDT - 01/02/2024 11:59 PM CDT Hospital [place] [address] [place] [phone] Mc Mcknight M.D., Ph.D. Other Operating Room Nurse Current Drug Therapy; Secondary Malignant Neoplasm Bone (HCC); Squamous Cell Carcinoma Of Skin Of Scalp And Neck Discharge Disposition: Home or Self Care 01/01/2024 4:25 PM CDT - 01/01/2024 11:59 PM CDT Hospital Encounter Department of Radiology[address] [phone] Tammie Hooks M.D., Ph.D. Squamous Cell Carcinoma Of Skin Of Scalp And Neck Discharge Disposition: Home or Self Care 01/01/2024 3:30 PM CDT Clinical Support - [facility] Division of Rheumatology in [address] [phone] Gertrudis Marks M.D., Ph.D. Tahira Lujan Secondary Malignant Neoplasm Bone (HCC) 12/29/2023 1:15 PM CDT Clinical Communication Virtual Review in [place], [place] [address] [place] [address] 12/12/2023 3:00 PM CDT Infusion Department of Oncology in [address] [phone] Remigio Frey M.D., Ph.D. Squamous Cell Carcinoma Of Skin Of Scalp And Neck (Primary Dx); Other Operating Room Nurse Current Drug Therapy; Secondary Malignant Neoplasm Bone (HCC); Malignant Neoplasm Of Neck Squamous Cell 12/12/2023 1:00 PM CDT Office Visit Department of Oncology in [place], [place] [address] [place] [phone] Mc Mcknight M.D., Ph.D. Other Prison Current Drug Therapy; Secondary Malignant Neoplasm Bone (HCC); Squamous Cell Carcinoma Of Skin Of Scalp And Neck 12/12/2023 10:13 AM CDT - 12/12/2023 11:59 PM CDT Hospital Encounter Department of Radiology, [facility], in [place], [place] [address] [place] [phone] Antolin Mclaughlin M.D. Arthritis Inflammatory (HCC) Discharge Disposition: Home or Self Care 12/12/2023 Orders Only Division of Rheumatology in [address] [phone] Gertrudis Marks M.D., Ph.D. Secondary Malignant Neoplasm Bone (HCC) (Primary Dx) 11/24/2023 Clinical Communication Department of Oncology in [address] [phone] Mc Mcknight M.D., Ph.D. 11/22/2023 10:25 AM CDT Ancillary Procedure Department of Rheumatology 11/22/2023 10:00 AM CDT Procedure visit Division of Rheumatology in [address] [phone] Tammie Qiu, REYNOLD, C.N.P. Remigio Reese M.D. Arthritis Inflammatory (HCC) 11/21/2023 2:15 PM CDT Infusion Department of Oncology in [place], [place] [address] [place] [phone] Remigio Frey M.D., Ph.D. Squamous Cell Carcinoma Of Skin Of Scalp And Neck (Primary Dx); Other Prison Current Drug Therapy; Secondary Malignant Neoplasm Bone (HCC); Malignant Neoplasm Of Neck Squamous Cell 11/21/2023 1:00 PM CDT Office Visit Department of Oncology in [place], [place] [address] [place] [phone] Mc Mcknight M.D., Ph.D. Other Operating Room Nurse Current Drug Therapy; Secondary Malignant Neoplasm Bone (HCC); Squamous Cell Carcinoma Of Skin Of Scalp And Neck 11/21/2023 7:45 AM CDT Comprehensive Visit Division of Rheumatology in [place], [place] [address] [place] [phone] Antolin Mclaughlin M.D. Baker, Jessica N, Kusum FLAHERTY Arthritis Inflammatory (HCC) (Primary Dx) 11/17/2023 8:00 AM CDT Internal E-Consult Division of Rheumatology in [place], [place] [address] [place] [phone] Monica Dawson M.B.B.SNey Effusion Knee Right 11/17/2023 Orders Only Department of Physical Medicine and Rehabilitation in [place], [place] [address] [place] [phone] Antolin Mclaughlin M.D. Arthritis Inflammatory (HCC) (Primary Dx) 11/15/2023 Orders Only Department of Physical Medicine and Rehabilitation in [place], [place] [address] [place] [phone] Antolin Mclaughlin M.D. Effusion Knee Right (Primary Dx) 11/14/2023 2:30 PM CDT Procedure visit Department of Physical Medicine and Rehabilitation in [address] [phone] Divine Ayala M.D. Effusion Knee Right 11/13/2023 11:05 AM CDT Ancillary Procedure Department of Radiology in [place], [place] [address] [place] [phone] Antolin Mclaughlin M.D. Effusion Knee Right 11/13/2023 10:00 AM CDT Comprehensive Visit Department of Physical Medicine and Rehabilitation in [address] [phone] Antolin Mclaughlin M.D. Effusion Knee Right (Primary Dx); Malignant Neoplasm Of Neck Squamous Cell; Secondary Malignant Neoplasm Bone (HCC); Other Operating Room Nurse Current Drug Therapy; Squamous Cell Carcinoma Of Skin Of Scalp And Neck from Last 3 Months Family History Medical [...] all 09/02/2022 [facility] Answer [...] Sex Assigned at Female 01/24/2022 7:37 PM MILLING MACHINIST Legal Sex Female 10:28 AM CDT Gender Identity Female 01/24/2022 7:37 PM MILLING MACHINIST Sexual Orientation Straight 01/24/2022 7: 37 PM MILLING MACHINIST Last Filed Vital Signs Vital Sign Reading Time Taken Comments Blood Pressure 103/58 01/19/2024 12:53 PM MILLING MACHINIST Pulse 69 01/19/2024 12:53 PM MILLING MACHINIST Temperature 36.4 C (97.5 F) 01/02/2024 1:08 PM CDT Respiratory Rate 16 12/12/2023 12:31 PM CDT Oxygen Saturation 97% 01/02/2024 1:08 PM CDT Inhaled Oxygen Concentration - - Weight 58.2 kg (128 lb 4.9 oz) 01/19/2024 12:53 PM MILLING MACHINIST Height 163 cm (5' 4.17) 01/19/2024 12:53 PM MILLING MACHINIST Body Mass Index 21.91 01/19/2024 12:53 PM MILLING MACHINIST Plan of Treatment Upcoming Encounters Date Type Department Care Team (Late st Contact Info) Description 02/26/2024 9:30 AM MILLING MACHINIST Lab Department of Laboratory Medicine and Pathology, [place], [place] [address] [place] [phone] Mc Mcknight M.D., Ph.D. [address] [place] [phone] 02/26/2024 11:30 AM MILLING MACHINIST Appointment Department of Radiology, [place], [place] [address] [place] [phone] Mc Mcknight M.D., Ph.D. [address] [place] [phone] 02/26/2024 3:00 PM MILLING MACHINIST Appointment Department of Radiology, [place], [place] [address] [place] [phone] Mc Mcknight M.D., Ph.D. [address] [place] [phone] 02/27/2024 1:40 PM MILLING MACHINIST Office Visit Department of Oncology in [place], [place] [address] [place] [phone] Mc Mcknight M.D., Ph.D. [address] [place] [phone] 03/01/2024 9:00 AM MILLING MACHINIST Appointment Department of Radiation Oncology in [place], [place] [address] [place] [phone] Tammie Hooks M.D., Ph.D. [address] [place] [phone] Health Maintenance Due Date Last Done Comments Hepatitis C Screening 1945 Depression Screening (Annual PHQ-2) 03/06/2023 Thyroid Stimulating Hormone (TSH) test for thyroid function 12/31/2024 01/01/2024, 12/12/2023, 11/21/2023, Additional history exists DTaP,Tdap,and Td Vaccines (3 - Td or Tdap) 11/23/2032 11/23/2022, 12/21/2012, 03/05/1990 Pneumococcal vaccine (65+ years) Completed 07/16/2014, 05/18/2011 RSV vaccine - (32-36 weeks) or 60+ years Completed 04/17/2023 Zoster Vaccines Completed 04/17/2023, 11/05, 02/04/2012 Fall Risk Screen (Annual) Completed 07/27/2023 COVID-19 Vaccine Completed 12/14/2023, 02/2024, 01/16/2023, Additional history exists Influenza Vaccine Completed 12/14/2023, , 12/22/2021, Additional history exists HPV Vaccines Aged Out No longer eligi ble based on patient's age to complete this topic IPV Vaccines Aged Out No longer eligi ble based on patient's age to complete this topic Medical Devices Implanted Type Area Stator Winder Device Identifier Shelf Expiration Date Model / Serial / Lot Hardware E.G. Pins/Screws/Ro ds Hardware e.g. pins/screws/r ods Mouth Procedures Procedure Name Priority Date/Time Associated Diagnosis Comments PET CT SKULL TO THIGH RAD - Routine (most inpatients and all outpatients) 01/02/2024 8:20 AM CDT Other Operating Room Nurse Current Drug Therapy Secondary Malignant Neoplasm Bone (HCC) Squamous Cell Carcinoma Of Skin Of Scalp And Neck MR BRAIN WITHOUT AND WITH IV CONTRAST RAD - Routine (most inpatients and all outpatients) 01/01/2024 6:15 PM CDT Squamous Cell Carcinoma Of Skin Of Scalp And Neck THYROID FUNCTION CASCADE, S Routine 01/01/2024 4:22 PM CDT Other Operating Room Nurse Current Drug Therapy Secondary Malignant Neoplasm Bone (HCC) Squamous Cell Carcinoma Of Skin Of Scalp And Neck BILIRUBIN DIRECT, S/P Routine 01/01/2024 4:22 PM CDT Other Prison Current Drug Therapy Secondary Malignant Neoplasm Bone (HCC) Squamous Cell Carcinoma Of Skin Of Scalp And Neck COMPREHENSIVE METABOLIC PANEL, S/P Routine 01/01/2024 4:22 PM CDT Other Prison Current Drug Therapy Secondary Malignant Neoplasm Bone (HCC) Squamous Cell Carcinoma Of Skin Of Scalp And Neck CBC WITH DIFFERENTIAL, B Routine 01/01/2024 4:22 PM CDT Other Prison Current Drug Therapy Secondary Malignant Neoplasm Bone (HCC) Squamous Cell Carcinoma Of Skin Of Scalp And Neck MISC RESEARCH ORDER, B Routine 01/01/2024 4:21 PM CDT Secondary Malignant Neoplasm Bone (HCC) THYROID FUNCTION CASCADE, S Routine 12/12/2023 10:40 AM CDT Other Operating Room Nurse Current Drug Therapy Secondary Malignant Neoplasm Bone (HCC) Squamous Cell Carcinoma Of Skin Of Scalp And Neck BILIRUBIN DIRECT, S/P Routine 12/12/2023 10:40 AM CDT Other Operating Room Nurse Current Drug Therapy Secondary Malignant Neoplasm Bone (HCC) Squamous Cell Carcinoma Of Skin Of Scalp And Neck COMPREHENSIVE METABOLIC PANEL, S/P Routine 12/12/2023 10:40 AM CDT Other Operating Room Nurse Current Drug Therapy Secondary Malignant Neoplasm Bone (HCC) Squamous Cell Carcinoma Of Skin Of Scalp And Neck CBC WITH DIFFERENTIAL, B Routine 12/12/2023 10:40 AM CDT Other Prison Current Drug Therapy Secondary Malignant Neoplasm Bone (HCC) Squamous Cell Carcinoma Of Skin Of Scalp And Neck DX ANKLE BILATERAL 3+ VIEWS RAD - Routine (most inpatients and all outpatients) 12/12/2023 10:21 AM CDT Arthritis Inflammatory (HCC) RHEUMATOLOGY IMAGE EXAM Routine 11/22/2023 10:25 AM CDT GA ARTHCS ASP/INJ MJR JT W US Routine [...] S Routine 11/21/2023 9:59 AM CDT Other Operating Room Nurse Current Drug Therapy Secondary Malignant Neoplasm Bone (HCC) Squamous Cell Carcinoma Of Skin Of Scalp And Neck BILIRUBIN DIRECT, S/P Routine 11/21/2023 9:59 AM CDT Other Operating Room Nurse Current Drug Therapy Secondary Malignant Neoplasm Bone (HCC) Squamous Cell Carcinoma Of Skin Of Scalp And Neck COMPREHENSIVE METABOLIC PANEL, S/P Routine 11/21/2023 9:59 AM CDT Other Operating Room Nurse Current Drug Therapy Secondary Malignant Neoplasm Bone (HCC) Squamous Cell Carcinoma Of Skin Of Scalp And Neck CBC WITH DIFFERENTIAL, B Routine 11/21/2023 9:59 AM CDT Other Operating Room Nurse Current Drug Therapy Secondary Malignant Neoplasm Bone (HCC) Squamous Cell Carcinoma Of Skin Of Scalp And Neck CRYSTAL ID, BF Routine 11/14/2023 2:50 PM CDT CELL COUNT AND DIFFERENTIAL, BF Routine 11/14/2023 2:50 PM CDT Effusion Knee Right GA ARTHCS ASP/INJ MJR JT W US Routine 11/14/2023 2:30 PM CDT Effusion Knee Right INTERPRETATION OF OUTSIDE DX EXTREMITY RAD - Routine (most inpatients and all outpatients) 11/13/2023 11:06 AM CDT Effusion Knee Right from Last 3 Months Results * PET CT Skull to Thigh FDG (01/02/2024 8:20 AM CDT) Anatomical Region Laterality Modality Body, Nuclear Medicine PET R ST LOS, PET ARZ LOS, Nuclear Medicine PET FLA LOS, Nuclear Medicine N/A Positron Emission Tomography (PET), Positron Emission Tomography (PET) Impressions 01/02/2024 10:05 AM CDT 1. No residual or recurrent FDG avid [...] recommended. Narrative 01/02/2024 10:05 AM CDT EXAM: PET CT SKULL TO THIGH FDG Serum glucose at time of F-18 FDG injection was 100 mg/dL. Patient followed standard dietary/fasting requirements for this exam. RADIOPHARMACEUTICAL/MEDS: Route: intravenous fludeoxyglucose F 18 injection LONGTERM (FDG F-18),9.94 millicurie TECHNIQUE: F-18 FDG PET/CT [...] RADIOPHARMACEUTICAL/MEDS: Route: intravenous fludeoxyglucose F 18 injection LONGTERM (FDG F-18),9.94 millicurie TECHNIQUE: F-18 FDG PET/CT [...] direct visualization isrecommended. Mc Mcknight M.D., Ph.D. [facility] PROCEDURE S Final Result * MR [...] also demonstrated slow progressive growth since 2022 (, image 174). Tiny enhancing dermal focus in the high midline posterior scalp ([id number], image 77) is unchanged since the prior [...] PROCEDURES Fi nal Result * Thyroid Function [place] (01/01/2024 4:22 PM CDT) Only the most recent of3 resultswithin the time period is included. Pathologist [facility] TSH, Sensitive 2.3 0.3 - 4.2 mIU/L 01/01/2024 5:24 PM CDT DTL Blood (Blood, Venous) 01/01/2024 4:22 PM CDT 01/01/2024 4:59 PM CDT Blanche Monzon P.A.-C., M.S. LAB BLOOD ADD-ON Final Result [facility] [address] [place] [address], [facility] DTL [facility] [address] [place] [address] * (ABNORMAL) CBC with Differential, Blood (01/01/2024 4:22 PM CDT) Only the most recent of3 resultswithin the time period is included. Pathologist [facility] Hemoglobin 12.9 11.6 - 15.0 g/dL 01/01/2024 [...] P.A.-C., M.S. LAB BLOOD ADD-ON Final Result [facility] [address] [place] [address], [facility] DTL [facility] [address] [place] [address] DHPM [facility] [address] [place] [address] * Bilirubin, Direct (01/01/2024 4:22 PM CDT) Only the most recent of3 resultswithin the time period is included. Bilirubin, Direct, S <0.2 0.0 - 0.3 mg/dL 01/01/2024 5:24 PM CDT DTL Blood (Blood, Venous) 01/01/2024 4:22 PM CDT 01/01/2024 4:59 PM CDT Blanche Iggy Monzon P.A.-C. M.S. LAB BLOOD ADD-ON Final Result [facility] [address] [place] [address], [facility] DTL [facility] [address] [place] [address] * Comprehensive Metabolic Panel (01/01/2024 4:22 PM CDT) Only the most recent of3 resultswithin the time period is included. Potassium, [...] 4:22 PM CDT 01/01/2024 4:59 PM CDT us Blanche Monzon P.A.-C., M.S. LAB BLOOD ADD-ON Final Result [facility] [address] [place] [address], [facility] DTL [facility] [address] [place] [address] * Misc Research, Blood (01/01/2024 4:21 PM CDT) Number of Specimens 6 01/01/2024 4:21 PM CDT HSS Blood (Blood, Venous) 01/01/2024 4:21 PM CDT 01/01/2024 4:21 PM CDT us Gertrudis Marks M.D., Ph.D. LAB RESEARCH NO RESULT ROUTING Final Result Performing Organization Address [facility]/ZIP Co de Phone Number [facility] [address] [place] [address], [facility] HSS [facility] [address] [place] [address] * DX Ankle Bilateral 3+ Views (12/12/2023 [...] calcaneus. Narrative 12/12/2023 10:43 AM CDT EXAM: DX ANKLE BILATERAL 3+ VIEWS Procedure Note Zack [...] IMAGING PROCE DURES Final Result IIMS NA * GA ARTHCS ASP/INJ MJR JT W US (11/22/2023 10:00 AM CDT) Narrative Remigio Reese M.D. - 11/22/2023 10:00 AM CDT Remigio Reese M.D. 11/22/2023 12:04 PM Knee site- R knee [...] dressing care and follow-up with ordering provider Result [facility] Tammie Qiu APRN, C.N.P. PROCEDURE/MINOR ALDAIR GICAL ORDERABLES Final Result * Cyclic Citrullinated Peptide Antibodies, IgG (11/21/2023 9:59 AM CDT) Pathologist [facility] Cyclic Citrullinated Peptide Ab, S <15.6 <20.0 (Negative) U 11/21/2023 6:45 PM CDT [facility] Comment: Interpretation: Antibodies to CCP not detected. If clinical symptoms are strongly indicative for rheumatoid arthritis, suggest testing for Rheumatoid Factor, S (RHUT) and, if positive, Rheumatoid Factor Panel, S (RFPN), which includes differentiation of rheumatoid factor IgM and IgA isotypes. Blood (Blood, Venous) 11/21/2023 9:59 AM CDT 11/21/2023 1:12 PM CDT Result [facility] Antolin Mclaughlin M.D. LAB BLOOD ADD-ON Final Result Performing Organization Address City/[facility]/ZIP Co de Phone Number [facility] [address] [place] [address] [facility] [address] [place] [address] * (ABNORMAL) Sedimentation Rate (11/21/2023 9:59 AM CDT) Pathologist [facility] Sedimentation Rate, B 30(H) 3 - 28 mm/h 11/21/2023 11:31 AM CDT DT Blood (Blood, Venous) 11/21/2023 9:59 AM CDT 11/21/2023 10:20 AM CDT Result [facility] Antolin Mclaughlin M.D. LAB BLOOD ADD-ON Final Result Performing Organization Address City/[facility]/ZIP Co de Phone Number [facility] [address] [place] [address], [place] [facility] [address] [place] [address] * Rheumatoid Factor (11/21/2023 9:59 AM CDT) Rheumatoid Factor, S <15 <15 IU/mL 11/21/2023 1:30 PM CDT [facility] Blood (Blood, Venous) 11/21/2023 9:59 AM CDT 11/21/2023 12:57 PM CDT us Antolin Mclaughlin M.D. LAB BLOOD ADD-ON Final Result [facility] [address] [place] [address] [facility] [address] [place] [address] * CRP (C-Reactive Protein) (11/21/2023 9:59 AM CDT) Pathologist [facility] C-Reactive Protein (CRP), S <3.0 <5.0 mg/L 11/21/2023 11:10 AM CDT [facility] Blood (Blood, Venous) 11/21/2023 9:59 AM CDT 11/21/2023 10:35 AM CDT us Antolin Mclaughlin M.D. LAB BLOOD ADD-ON Final Result Performing Organization Address City/[facility]/ZIP Co de Phone Number [facility] [address] [place] [address], [facility] [address] [place] [address] * Uric Acid (11/21/2023 9:59 AM CDT) Pathologist [facility] Uric Acid, S 3.3 2.7 - 6.1 mg/dL 11/21/2023 11:10 AM CDT DT Blood (Blood, Venous) 11/21/2023 9:59 AM CDT 11/21/2023 10:35 AM CDT us Antolin Mclaughlin M.D. LAB BLOOD ADD-ON Final Result [facility] [address] [place] [address], [facility] DTL [facility] [address] [place] [address] * Crystal Identification, Body Fluid (11/14/2023 2:50 PM CDT) Fluid Type Synovial Fluid, Right Knee 11/14/2023 9:56 PM CDT DH Crystal ID None seen None seen 11/14/2023 9:56 PM CDT DHPM Fluid 11/14/2023 2:50 PM CDT 11/14/2023 5:58 PM CDT Antolin Mclaughlin M.D. LAB BODY FLUIDS AND ST OOLS ORDERABLES Final Result [facility] [address] [place] [address], [facility] [address] [place] [address] * Cell Count and Differential, Body Fluid [...] This test has been modified from the trimmer press clippings's instructions. Its performance characteristics were determined by [facility] in a manner consistent with CLIA requirements. This test has not been cleared or approved by the U.S. Food and Drug Administration. Neutrophils 52 % 11/14/2023 9:56 PM CDT PM Comment: ----REFERENCE VALUE---- Synovial: <25% Peritoneal: <25% Pleural: <25% Pericardial: <25% Lymphocytes 19 Synovial <75% % 11/14/2023 9:56 PM CDT DHPM Monocytes/Macropha ges 29 Synovial <70% % 11/14/2023 9:56 PM CDT [facility] Comment See Comment 11/15/2023 9:36 AM CDT PM Comment:No blasts or maligna nt cells seen. Reviewed by: Mago 11/15/2023 9:36 AM CDT [facility] Fluid (Synovial Fluid, Not Otherwise Specified) 11/14/2023 2:50 PM CDT 11/14/2023 5:58 PM CDT us Antolin Mclaughlin M.D. LAB BODY FLUIDS AND ST OOLS ORDERABLES Final Result [facility] [address] [place] [address], [facility] [address] [place] [address] * GA ARTHCS ASP/INJ MJR JT W US (11/14/2023 2:30 PM CDT) Narrative MMODAL - 11/14/2023 2:30 PM CDT Divine Ayala M.D. 11/14/2023 2:59 PM Knee site- R knee joint : [...] participated in the procedure, and the business objects consultant was present for the entire procedure. 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
--- OUTSIDE RECORDS SUMMARY | 2024-02-12 15:03 | XMS_ITS ---
Author Organization [facility] Address [address] [place] [address] Care Team Providers Care Polysomnographic Technologist Name Role Phone Unavailable Unavailable Unavailable Surgery Details Not on file Complications Check Surgery Details section. Procedure Estimated Blood Loss Check Surgery Details section. Procedure Findings Check Surgery Details section. Procedure Specimens Taken Check Surgery Details section.
--- OUTSIDE RECORDS SUMMARY | 2024-02-12 15:03 | XMS_ITS | Encounter Summary ---
Author Organization [facility] Address [address] [place] [address] Care Team Providers Care Bush Regenerator Name Role Phone Elsewhere, Pcp Primary Care Provider Unavailabl e Reason for Visit * Reason Onset Date Comments Pre-visit Intake 01/17/2024 Encounter Details Date Type Department Care Team (Latest Contact Info) Description 01/17/2024 9:00 AM SMASHER Clinical Communication Virtual Review in [place], [place] [address] [place] [phone] Pre-visit Intake Social History Tobacco Use Types [...] your living situation today? I have a [facility] place to live 02/16/2023 Education Answer Date Recorded What is the highest level of school you have completed or the highest degree you have received? Bachelor's degree (e.g., BA, AB, BS) 01/24/2022 Comments No Sex and Gender Information Value Date Recorded Sex Assigned at Female 01/24/2022 7:37 PM SMASHER Legal Sex Female 10:28 AM CDT Gender Identity Female 01/24/2022 7:37 PM SMASHER Sexual Orientation Straight 01/24/2022 7: 37 PM SMASHER documented as of this encounter Plan of Treatment Upcoming Encounters Date Type Department Care Team (Late st Contact Info) Description 02/26/2024 9:30 AM SMASHER Lab Department of Laboratory Medicine and Pathology, [facility] in [place], [place] [address] [place] [phone] Mc Mcknight M.D., Ph.D. [address] [place] [phone] 02/26/2024 11:30 AM SMASHER Appointment Department of Radiology, [place], [place] [address] [place] [address] Mc Mcknight M.D., Ph.D. [address] [place] [phone] 02/26/2024 3:00 PM SMASHER Appointment Department of Radiology, [facility] in [place], [place] [address] [place] [phone] Mc Mcknight M.D., Ph.D. [address] [place] [phone] 02/27/2024 1:40 PM SMASHER Office Visit Department of Oncology in [place], [place] [address] [place] [phone] Mc Mcknight M.D., Ph.D. [address] [place] [phone] 03/01/2024 9:00 AM SMASHER Appointment Department of Radiation Oncology in [address] [phone] Tammie Hooks M.D., Ph.D. [address] [place] [phone] documented as of this encounter Visit Diagnoses Not on filedocumented in this encounter Care Teams Bush Regenerator Relationship Specialty Start Date End Date Elsewhere, Pcp PCP - General Family Medicine 01/17/24 documented as of this encounter
--- OUTSIDE RECORDS SUMMARY | 2024-02-12 15:03 | XMS_ITS | Encounter Summary ---
Author Organization [facility] Address [address] [place] [id number] Care Team Providers Care Managed Care Analyst Name Role Phone Unavailable Primary Care Provider Unavailabl e Reason for Referral * Outpatient (Routine) - Authorized Specialty Diagnoses / Procedures Referred By Contac t Referred To Contact Radiation Oncology Manohar Morgan APRN, C.N.P., D.N.P. [address] [place] [phone] Phone: tel: fax: Tammie Hooks M.D., Ph.D. [address] [place] [phone] Phone: tel: fax: Referral ID Status Reason Start Date Expiration Date V isits Requested Visits Authorized [id number] Authorized 01/11/2024 07/12/2025 1 1 Scheduling Instructions Schedule in morning. Dr. Hooks will see patient. BILITATION LIAISON * Outpatient (Routine) - Closed Specialty Diagnoses / Procedures Referred By Contac t Referred To Contact Radiation Oncology Tammie Hooks M.D., Ph.D. [address] [place] [phone] Phone: tel: fax: [facility] Referral ID Status Reason Start Date Expiration Date Visits Re quested Visits Authorized [id number] Closed 10/11/2023 04/11/2025 1 1 Scheduling Instructions With scans BILITATION LIAISON Reason for Visit * Outpatient (Routine) - Closed Specialty Diagnoses / Procedures Referred By Contac t Referred To Contact Radiation Oncology Tammie Hooks M.D., Ph.D. [address] [place] [phone] Phone: tel: fax: [facility] Referral ID Status Reason Start Date Expiration Date Visits Re quested Visits Authorized [id number] Closed 10/11/2023 04/11/2025 1 1 Encounter Details Date Type Department Care Team (Latest Contact Info) Description 01/11/2024 1:27 PM REHABILITATION LIAISON - 01/11/2024 3:16 PM REHABILITATION LIAISON Hospital Encounter Department of Radiation Oncology in [place], [place] [address] [place] [phone] Tammie Hooks M.D., Ph.D. [address] [place] [phone] Squamous Cell Carcinoma Of Skin Of Scalp [...] at all 09/02/2022 [facility] - Occupational Stress Questionnaire Answer Date [...] your living situation today? I have a [facility] place to live 02/16/2023 Education Answer Date Recorded What is the highest level of school you have completed or the highest degree you have received? Bachelor's degree (e.g., BA, AB, BS) 01/24/2022 Comments No Sex and Gender Information Value Date Recorded Sex Assigned at Female 01/24/2022 7:37 PM REHABILITATION LIAISON Legal Sex Female 10:28 AM CDT Gender Identity Female 01/24/2022 7:37 PM REHABILITATION LIAISON Sexual Orientation Straight 01/24/2022 7: 37 PM REHABILITATION LIAISON documented as of this encounter Last Filed Vital Signs Vital Sign Reading Time Taken Comments Blood Pressure - - Pulse - - Temperature - - Respiratory Rate - - Oxygen Saturation - - Inhaled Oxygen Concentration - - Weight 58.2 kg (128 lb 3.2 oz) 01/11/2024 1:55 P M REHABILITATION LIAISON Height - - Body Mass Index 22.46 12/12/2023 12:31 PM CDT documented in this encounter Medications at Time of Discharge alendronate (Fosamax) 70 mg tablet Take 1 tablet by mouth every 7 (seven) days. 11/22/2023 CALCIUM ORAL Take 1 tablet by mouth daily. cholecalciferol (Vitamin D3) 50 mcg (2,000 Unit) capsule Take 1 capsule by mouth daily. 10/18/2023 erythromycin (Romycin) 5 mg/gram (0.5 %) ophthalmic [...] 1 tablet by mouth daily. Centrum Womens rosuvastatin (CRESTOR) 10 mg tablet Take 10 [...] powder, 1 scoop every morning with cereal cholecalciferol (Vitamin D3) 50 mcg (2,000 Unit) tablet Take 1 tablet by mouth daily. 4 documented as of this encounter Progress Notes * Manohar Morgan, LEAD LOADER, C.N.P., D.N.P. - 01/11/2024 2:00 PM CST SUBJECTIVE REQUESTING PROVIDER Tammie Hooks M.D., Ph.D. CHIEF COMPLAINT/REASON FOR VISIT The encounter diagnosis was Squamous Cell Carcinoma Of Skin Of Scalp And Neck. INTERVAL HISTORY: Mrs. Veronica Guevara is a 78 y.o. female from [facility] who returns to radiationoncology clinic today for follow up. 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 This was biopsied but it was non-diagnostic and is a lytic lesion. 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 Evaluated by braille duplicating machine operator Dr. Banuelos in [place] and was treated for possible psoriasis. The lesion persisted after 6 weeks. She was then treated with UV phototherapy between September and December of 2021. September 22, 2021---December 17, 2021: Underwent biopsy of the vertex scalp lesion which revealed squamous cell carcinoma. Incisional biopsy of left level 5 lymph node also revealed squamous cell carcinoma. 12/30/2021 Biopsy/Pathology A. Skin, scalp, vertex, excisional biopsy ([id number]; 12/30/2021): Invasive poorly differentiated squamous cell carcinoma, transected at base and lateral edge of the specimen. B. Neck, left, soft tissue, biopsy ([id number]; 01/13/2022): Invasive poorly differentiated squamous cell carcinoma [...] scalp has resolved since the prior exam. OBJECTIVE PHYSICAL EXAM General: Pleasant woman in no apparent distress. 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 Monitor for now. DIAGNOSTICS CT head (07/14/23): new lytic lesion in pareital/occipital skull MRI brain (07/27/23):calvarial lesion is increasing in size and suspicious for metastatic lesion. 01/01/2024: MRI brain showed enhancing lesions in right parietal and high right calvarium has demonstrated slow progressive growth since 2022 and are suspicious for metastases; tiny enhancing focus in the midline scalp is unchanged. Previous noted additional focus of enhancement in the high left parietal scalp has resolved since the prior exam. 01/01/2024: FDG PET/CT showed no residual or recurrent FDG avid disease in the scalp or neck. Sincethe prior PET/CT, the scalp lesion and cervical lymph node metastases have been resected/treated; right parieto-occipital lytic lesion is mildly FDG avid suspicious for metastasis; no other convincing evidence of FDG avid metastatic disease; mildly FDG avid cutaneous soft tissue thickening in the posterior right thigh, favored inflammatory although direct visualization is recommended. Lab Results Component Value Date/Time TSH 2.3 01/01/2024 04:22 PM ASSESSMENT / PLAN Diagnosis Plan 1. Squamous Cell Carcinoma Of Skin Of Scalp And Neck #Squamous cell carcinoma of the scalp #Iatrogenic hypothyroidism #Thyroid nodule 78 y.o. woman with [id number] SqCC of the scalp vertex, 3.5 cm primary, 1.1 cm DOI, LVI+, PNI-, margin-, / LN on left with XIN, 1/3 LN on right XIN-. She completed 60 Gy to scalp and 60 Gy to bilateral necks (with 66 Gy/30 fx to two gross nodes), 54 Gy/ 30 fx to elective oumou radiation. She completed radiation treatment 04/29/2022. Radiation Oncology - previously discussed SBRT. Medical Oncology (Dr. Mc Mcknight MD; 01/02/2024): recommended cemiplimab, which is now on hold due to arthritic complications. Repeat MRI and PET ordered for 02/26/2024. Neurocognitive consultation (01/19/2024). Plan Return visit (visit can be pushed back if scans are stable) on 03/01/2024 to discuss imaging and treatment recommendation. HOLD radiotherapy at present and monitor on subsequent 02/26/2024 PET scan. Consider Radiation Oncology - [place] referral if radiotherapy is needed in the future. Dr. Hooks would consider stereotactic body radiotherapy at dose 30 Gy in three treatments to right parieto-occipital lesion. Future recommendations: We discussed that we do recommend a follow up ultra- sound in 1-2 years (01/28 - this will need to be ordered closer to the due date) I spent 20 minutes face to face and non-face to face caring for the patient today. Cosigned by Tammie Hooks M.D., Ph.D. at 01/12/2024 2:36 PM REHABILITATION LIAISON BILITATION LIAISON BILITATION LIAISON BILITATION LIAISON BILITATION LIAISON BILITATION LIAISON Associated attestation - Tammie Hooks M.D., Ph.D. - 01/12/2024 2:36 PM REHABILITATION LIAISON I independently reviewed the medical record, verified (and modified as necessary) the information in the Oncology History, and reviewed laboratory, radiological, and pathology aspects of the medical condition. I discussed the clinical situation with Manohar Morgan APRN, C.N.P., D.N.P. before he met with the patient, and we mutually decided on a course of medical management. I also met with the patient for a [id number] encounter to verify the history, discuss patient expectation and preference, and provide recommendations which are in agreement with those outlined by Manohar Morgan APRN, Nixon.N.P.,D.N.P. in the encounter of this date. Ms. Guevara is a 78 y.o. woman with [id number] SqCC of the scalp vertex, 3.5 cm primary, 1.1 cm DOI,LVI+, PNI-, margin-, 2/26 LN on left with XIN, 1/3 LN on right XIN-. She completed 60 Gy to scalp and 60 Gy to bilateral necks (with 66 Gy/30 fx to two gross nodes), 54 Gy/ 30 fx to elective oumou radiation. She completed radiation treatment 04/29/2022. 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 She did start cemiplimab in 08/08/23 due to this lesion increasing in size in 07/27, although biopsy wasnon-diagnostic. PET also showed possible avidity of this lesion and also in posterior thigh. Posterior thigh had scaly plaque, most likely psroaris but could be biopsied to rule out SqCC, we will hold for now and see what it looks like on re- imaging/exam end of February. We also discussed SBRT to bone lesion versus observing for possible growth and ultimately decided to hold on treatment for now. I will plan to see her after PET scan scheduled on 02/26 (first I can see is 03/01), but this can be pushed back to next imaging if there is not significant growth. Tammie Hooks M.D., Ph.D. 01/12/2024 2:28 PM REHABILITATION LIAISON documented in this encounter Miscellaneous Notes * Addendum Note - Manohar Morgan APRN, Nixon.N.P., D.N.P. - 01/11/2024 2:00 PM REHABILITATION LIAISON Encounter addended by: Manohar Morgan APRN, Nixon.N.PeNy, D.N.P. on: 01/11/2024 3:29 PM Actions taken: Clinical Note Signed BILITATION LIAISON documented in this encounter Plan of Treatment Upcoming Encounters Date Type Department Care Team (Late st Contact Info) Description 02/26/2024 9:30 AM REHABILITATION LIAISON Lab Department of Laboratory Medicine and Pathology, [place], [place] [address] [place] [phone] Mc Mcknight M.D., Ph.D. [address] [place] [phone] 02/26/2024 11:30 AM REHABILITATION LIAISON Appointment Department of Radiology, [facility] in [place], [place] [address] [place] [phone] Mc Mcknight M.D., Ph.D. [address] [place] [phone] 02/26/2024 3:00 PM REHABILITATION LIAISON [facility] [place] [place] [address] [place] [phone] Mc Mcknight M.D., Ph.D. [address] [place] [phone] 02/27/2024 1:40 PM REHABILITATION LIAISON Office Visit Department of Oncology in [place], [place] [address] [place] [phone] Mc Mcknight M.D., Ph.D. [address] [place] [phone] 03/01/2024 9:00 AM REHABILITATION LIAISON Appointment Department of Radiation Oncology in [address] [phone] Tammie Hooks M.D., Ph.D. [address] [place] [phone] Scheduled Referrals Name Type Priority Associated Diagnoses Order Schedule Radiation Oncology office visit (clinic) Outpatient Referral Routine Once for 1 Occurrences starting 01/11/2024 until 01/11/2024 Radiation Oncology office visit (clinic) Outpatient Referral Routine Expected: 03/01/2024, Expires: 04/12/2025 documented as of this encounter Visit Diagnoses Diagnosis Squamous Cell Carcinoma Of Skin Of Scalp And Neck- Primary documented in this encounter
--- OUTSIDE RECORDS SUMMARY | 2024-02-12 15:03 | XMS_ITS | Referral Summary ---
Author Organization [facility] Address [address] [place] [id number] Care Team Providers Care Aluminum Shingle Roofer Name Role Phone Elsewhere, Pcp Primary Care Provider Unavailabl e Source Comments Patient records contain information from all sites at [facility]. For routine questions regarding patient records, call [phone] during business hours, M-F 8:00 AM - 5:00 PM Central Time. Record requests for emergency care only can be directed to [phone] at any time.[facility] Encounters * This document contains information received from the source organization and may not represent a complete record from that organization. Date Type Department Care Team Description 01/19/2024 1:00 PM DEVICE SALES CONSULTANT Comprehensive Visit Department of Neurology in [place], [place] [address] [place] [phone] Kory Alas M.B., Ch.B. Loss Memory (Primary Dx); Squamous Cell Carcinoma Of Skin Of Scalp And Neck 01/17/2024 9:00 AM DEVICE SALES CONSULTANT Clinical Communication Virtual Review in [place], [place] [address] [place] [address] Pre-visit Intake 01/11/2024 1:27 PM DEVICE SALES CONSULTANT - 01/11/2024 3:16 PM DEVICE SALES CONSULTANT Hospital Encounter Department of Radiation Oncology in [place], [place] [address] [place] [phone] Tammie Hooks M.D., Ph.D. Squamous Cell Carcinoma Of Skin Of Scalp And Neck (Primary Dx) 01/02/2024 6:29 AM CDT - 01/02/2024 11:59 PM CDT [facility] [place] [place] [address] [place] [phone] Mc Mcknight M.D., Ph.D. Other Snf Current Drug Therapy; Secondary Malignant Neoplasm Bone (HCC); Squamous Cell Carcinoma Of Skin Of Scalp And Neck Discharge Disposition: Home or Self Care 01/02/2024 1:00 PM CDT Office Visit Department of Oncology in [place], [place] [address] [place] [phone] Mc Mcknight M.D., Ph.D. Other Snf Current Drug Therapy; Secondary Malignant Neoplasm Bone (HCC); Squamous Cell Carcinoma Of Skin Of Scalp And Neck 01/01/2024 3:30 PM CDT Clinical Support - [facility] Division of Rheumatology in [place], [place] [address] [place] [phone] Gertrudis Marks M.D., Ph.D. Tahira Lujan Secondary Malignant Neoplasm Bone (HCC) 01/01/2024 4:25 PM CDT - 01/01/2024 11:59 PM CDT [facility] [place], [place] [address] [place] [phone] Tammie Hooks M.D., Ph.D. Squamous Cell Carcinoma Of Skin Of Scalp And Neck Discharge Disposition: Home or Self Care 12/29/2023 1:15 PM CDT Clinical Communication Virtual Review in [place], [place] [address] [place] [address] 12/12/2023 Orders Only Division of Rheumatology in [place], [place] [address] [place] [phone] Gertrudis Marks M.D., Ph.D. Secondary Malignant Neoplasm Bone (HCC) (Primary Dx) 12/12/2023 10:13 AM CDT - 12/12/2023 11:59 PM CDT Hospital Encounter Department of Radiology, [facility], in [place], [place] [address] [place] [phone] Antolin Mclaughlin M.D. Arthritis Inflammatory (HCC) Discharge Disposition: Home or Self Care 12/12/2023 1:00 PM CDT Office Visit Department of Oncology in [address] [phone] Mc Mcknight M.D., Ph.D. Other Alley Worker Current Drug Therapy; Secondary Malignant Neoplasm Bone (HCC); Squamous Cell Carcinoma Of Skin Of Scalp And Neck 12/12/2023 3:00 PM CDT Infusion Department of Oncology in [address] [phone] Remigio Frey M.D., Ph.D. Squamous Cell Carcinoma Of Skin Of Scalp And Neck (Primary Dx); Other Snf Current Drug Therapy; Secondary Malignant Neoplasm Bone (HCC); Malignant Neoplasm Of Neck Squamous Cell 11/24/2023 Clinical Communication Department of Oncology in [place], [place] [address] [place] [phone] Mc Mcknight M.D., Ph.D. 11/22/2023 10:25 AM CDT Ancillary Procedure Department of Rheumatology 11/22/2023 10:00 AM CDT Procedure visit Division of Rheumatology in [address] [phone] Tammie Qiu APRN, C.N.PRemigio Gates M.D. Arthritis Inflammatory (HCC) 11/21/2023 7:45 AM CDT Comprehensive Visit Division of Rheumatology in [address] [phone] Antolin Mclaughlin M.D. Baker, Jessica N, APRN, C.N.P. Arthritis Inflammatory (HCC) (Primary Dx) 11/21/2023 1:00 PM CDT Office Visit Department of Oncology in [address] [phone] Mc Mcknight M.D., Ph.D. Other Alley Worker Current Drug Therapy; Secondary Malignant Neoplasm Bone (HCC); Squamous Cell Carcinoma Of Skin Of Scalp And Neck 11/21/2023 2:15 PM CDT Infusion Department of Oncology in [place], [place] [address] [place] [address] Remigio Frey M.D., Ph.D. Squamous Cell Carcinoma Of Skin Of Scalp And Neck (Primary Dx); Other Snf Current Drug Therapy; Secondary Malignant Neoplasm Bone (HCC); Malignant Neoplasm Of Neck Squamous Cell 11/17/2023 Orders Only Department of Physical Medicine and Rehabilitation in [place], [place] [address] [place] [phone] Antolin Mclaughlin M.D. Arthritis Inflammatory (HCC) (Primary Dx) 11/17/2023 8:00 AM CDT Internal E-Consult Division of Rheumatology in [place], [place] [address] [place] [phone] Monica Dawson M.B.BNeySNey Effusion Knee Right 11/15/2023 Orders Only Department of Physical Medicine and Rehabilitation in [place], [place] [address] [place] [phone] Antolin Mclaughlin M.D. Effusion Knee Right (Primary Dx) 11/14/2023 2:30 PM CDT Procedure visit Department of Physical Medicine and Rehabilitation in [place], [place] [address] [place] [phone] Divine Ayala M.D. Effusion Knee Right 11/13/2023 11:05 AM CDT Ancillary Procedure Department of Radiology in [place], [place] [address] [place] [phone] Antolin Mclaughlin M.D. Effusion Knee Right 11/13/2023 10:00 AM CDT Comprehensive Visit Department of Physical Medicine and Rehabilitation in [place], [place] [address] [place] [phone] Antolin Mclaughiln M.D. Effusion Knee Right (Primary Dx); Malignant Neoplasm Of Neck Squamous Cell; Secondary Malignant Neoplasm Bone (HCC); Other Alley Worker Current Drug Therapy; Squamous Cell Carcinoma Of Skin Of Scalp And Neck from Last 3 Months Allergies Active Allergy [...] grams to affected areas. 100 g 11 11/10/19 24 Active Additional Information Patient taking [...] Date Secondary Malignant Neoplasm Bone 07/28/2023 Other Alley Worker Current Drug Therapy 07/28/2023 Malignant Neoplasm Of Neck Squamous Cell 022 Squamous Cell Carcinoma Of Skin Of Scalp And Nec k 01/26/2022 Overview (01/26/2022): Added automatically from request for surgery [id number] Amnesia 01/26/2022 Disorder Of The Skin And [...] often do you attend chur ch or mosque services? Never 01/24/2022 Do you belong to [...] and heating? Not hard at all 09/02/2022 [facility] Occupat [facility] - Occupational Stress [...] Sex Assigned at Female 01/24/2022 7:37 PM DEVICE SALES CONSULTANT Legal Sex Female 10:28 AM CDT Gender Identity Female 01/24/2022 7:37 PM DEVICE SALES CONSULTANT Sexual Orientation Straight 01/24/2022 7: 37 PM DEVICE SALES CONSULTANT Last Filed Vital Signs Vital Sign Reading Time Taken Comments Blood Pressure 103/58 01/19/2024 12:53 PM DEVICE SALES CONSULTANT Pulse 69 01/19/2024 12:53 PM DEVICE SALES CONSULTANT Temperature 36.4 C (97.5 F) 01/02/2024 1:08 PM CDT Respiratory Rate 16 12/12/2023 12:31 PM CDT Oxygen Saturation 97% 01/02/2024 1:08 PM CDT Inhaled Oxygen Concentration - - Weight 58.2 kg (128 lb 4.9 oz) 01/19/2024 12:53 PM DEVICE SALES CONSULTANT Height 163 cm (5' 4.17) 01/19/2024 12:53 PM DEVICE SALES CONSULTANT Body Mass Index 21.91 01/19/2024 12:53 PM DEVICE SALES CONSULTANT Plan of Treatment Upcoming Encounters Date Type Department Care Team (Late st Contact Info) Description 02/26/2024 9:30 AM DEVICE SALES CONSULTANT Lab Department of Laboratory Medicine and Pathology, [address] [phone] cM Mcknight M.D., Ph.D. [address] [place] [phone] 02/26/2024 11:30 AM DEVICE SALES CONSULTANT Appointment Department of Radiology, [facility] in [address] [phone] Mc Mcknight M.D., Ph.D. [address] [place] [phone] 02/26/2024 3:00 PM DEVICE SALES CONSULTANT Appointment Department of Radiology[address] [phone] Mc Mcknight M.D., Ph.D. [address] [place] [phone] 02/27/2024 1:40 PM DEVICE SALES CONSULTANT Office Visit Department of Oncology in [address] [phone] Mc Mcknight M.D., Ph.D. 200 [place] [phone] 03/01/2024 9:00 AM DEVICE SALES CONSULTANT Appointment Department of Radiation Oncology in [place], [place] [address] [place] [address] Tammie Hooks M.D., Ph.D. 200 [place] [phone] Medical Devices Implanted Type Area Director Of Business Continuity Device Identifier Shelf Expiration Date Model / Serial / Lot Hardware E.G. Pins/Screws/Ro ds Hardware e.g. pins/screws/r ods Mouth Procedures Procedure Name Priority Date/Time Associated Diagnosis Comments PET CT SKULL TO THIGH RAD - Routine (most inpatients and all outpatients) 01/02/2024 8:20 AM CDT Other Alley Worker Current Drug Therapy Secondary Malignant Neoplasm Bone (HCC) Squamous Cell Carcinoma Of Skin Of Scalp And Neck MR BRAIN WITHOUT AND WITH IV CONTRAST RAD - Routine (most inpatients and all outpatients) 01/01/2024 6:15 PM CDT Squamous Cell Carcinoma Of Skin Of Scalp And Neck THYROID FUNCTION CASCADE, S Routine 01/01/2024 4:22 PM CDT Other Alley Worker Current Drug Therapy Secondary Malignant Neoplasm Bone (HCC) Squamous Cell Carcinoma Of Skin Of Scalp And Neck BILIRUBIN DIRECT, S/P Routine 01/01/2024 4:22 PM CDT Other Snf Current Drug Therapy Secondary Malignant Neoplasm Bone (HCC) Squamous Cell Carcinoma Of Skin Of Scalp And Neck COMPREHENSIVE METABOLIC PANEL, S/P Routine 01/01/2024 4:22 PM CDT Other Snf Current Drug Therapy Secondary Malignant Neoplasm Bone (HCC) Squamous Cell Carcinoma Of Skin Of Scalp And Neck CBC WITH DIFFERENTIAL, B Routine 01/01/2024 4:22 PM CDT Other Alley Worker Current Drug Therapy Secondary Malignant Neoplasm Bone (HCC) Squamous Cell Carcinoma Of Skin Of Scalp And Neck MISC RESEARCH ORDER, B Routine 01/01/2024 4:21 PM CDT Secondary Malignant Neoplasm Bone (HCC) THYROID FUNCTION CASCADE, S Routine 12/12/2023 10:40 AM CDT Other Snf Current Drug Therapy Secondary Malignant Neoplasm Bone (HCC) Squamous Cell Carcinoma Of Skin Of Scalp And Neck BILIRUBIN DIRECT, S/P Routine 12/12/2023 10:40 AM CDT Other Snf Current Drug Therapy Secondary Malignant Neoplasm Bone (HCC) Squamous Cell Carcinoma Of Skin Of Scalp And Neck COMPREHENSIVE METABOLIC PANEL, S/P Routine 12/12/2023 10:40 AM CDT Other Snf Current Drug Therapy Secondary Malignant Neoplasm Bone (HCC) Squamous Cell Carcinoma Of Skin Of Scalp And Neck CBC WITH DIFFERENTIAL, B Routine 12/12/2023 10:40 AM CDT Other Snf Current Drug Therapy Secondary Malignant Neoplasm Bone (HCC) Squamous Cell Carcinoma Of Skin Of Scalp And Neck DX ANKLE BILATERAL 3+ VIEWS RAD - Routine (most inpatients and all outpatients) 12/12/2023 10:21 AM CDT Arthritis Inflammatory (HCC) RHEUMATOLOGY IMAGE EXAM Routine 11/22/2023 10:25 AM CDT CO ARTHCS ASP/INJ MJR JT W US Routine [...] S Routine 11/21/2023 9:59 AM CDT Other Snf Current Drug Therapy Secondary Malignant Neoplasm Bone (HCC) Squamous Cell Carcinoma Of Skin Of Scalp And Neck BILIRUBIN DIRECT, S/P Routine 11/21/2023 9:59 AM CDT Other Snf Current Drug Therapy Secondary Malignant Neoplasm Bone (HCC) Squamous Cell Carcinoma Of Skin Of Scalp And Neck COMPREHENSIVE METABOLIC PANEL, S/P Routine 11/21/2023 9:59 AM CDT Other Alley Worker Current Drug Therapy Secondary Malignant Neoplasm Bone (HCC) Squamous Cell Carcinoma Of Skin Of Scalp And Neck CBC WITH DIFFERENTIAL, B Routine 11/21/2023 9:59 AM CDT Other Alley Worker Current Drug Therapy Secondary Malignant Neoplasm Bone (HCC) Squamous Cell Carcinoma Of Skin Of Scalp And Neck CRYSTAL ID, BF Routine 11/14/2023 2:50 PM CDT CELL COUNT AND DIFFERENTIAL, BF Routine 11/14/2023 2:50 PM CDT Effusion Knee Right CO ARTHCS ASP/INJ MJR JT W US Routine [...] RADIOPHARMACEUTICAL/MEDS: Route: intravenous fludeoxyglucose F 18 injection [facility]SING HOME (FDG F-18),9.94 millicurie TECHNIQUE: F-18 FDG PET/CT [...] RADIOPHARMACEUTICAL/MEDS: Route: intravenous fludeoxyglucose F 18 injection [facility] HOME (FDG F-18),9.94 millicurie TECHNIQUE: F-18 FDG PET/CT [...] direct visualization isrecommended. Mc Mcknight M.D., Ph.D. [facility] PROC[facility] S Final Result * MR Brain [...] focus in the high midline posterior scalp ([id number], image 77) is unchanged since the prior [...] PROCEDURES Fi nal Result * Thyroid Function [place] (01/01/2024 4:22 PM CDT) Only the most recent of3 resultswithin the time period is included. TSH, Sensitive 2.3 0.3 - 4.2 mIU/L 01/01/2024 5:24 PM CDT DTL Blood (Blood, Venous) 01/01/2024 4:22 PM CDT 01/01/2024 4:59 PM CDT Blanche Monzon P.A.-C., M.S. LAB BLOOD ADD-ON Final Result [facility] [address] [place] [address], [place] DTL [facility] [address] [place] [address] * (ABNORMAL) CBC with Differential, Blood (01/01/2024 4:22 PM CDT) Only the most recent of3 resultswithin the time period is included. Hemoglobin [...] P.A.-C., M.S. LAB BLOOD ADD-ON Final Result [facility] [address] [facility] [address] [place] [address] * Bilirubin, Direct (01/01/2024 4:22 PM CDT) Only the most recent of3 resultswithin the time period is included. Bilirubin, Direct, S <0.2 0.0 - 0.3 mg/dL 01/01/2024 5:24 PM CDT DTL Blood (Blood, Venous) 01/01/2024 4:22 PM CDT 01/01/2024 4:59 PM CDT Blanche Monzon P.A.-C., M.S. LAB [place]LOOD [place] [address] * Comprehensive Metabolic Panel (01/01/2024 4:22 PM [...] M.S. LAB BLOOD ADD-ON Final Result [facility] [address] [place] [address], [facility] [address] [place] [address] * [facility] Research, Blood (01/01/2024 4:21 PM CDT) Number of Specimens 6 01/01/2024 4:21 PM CDT HSS Blood (Blood, Venous) 01/01/2024 4:21 PM CDT 01/01/2024 4:21 PM CDT us Gertrudis Marks M.D., Ph.D. LAB RESEARCH NO RESULT ROUTING Final Result Performing Organization Address City/[facility]/ZIP Co de Phone Number [facility] [address] [place] [address], [facility] [address] [place] [address] * DX Ankle Bilateral 3+ Views (12/12/2023 [...] Tiny bone island within theposterior left calcaneus. Antolin Mclaughlin M.D. IMG DIAGNOSTIC IMAGING PROCEDURES [...] NON RAD IMAGING PROCE DURES Final Result Performing Organization Address City/[facility]/ZIP Co de Phone Number [facility] NA * CO ARTHCS ASP/INJ MJR JT W US (11/22/2023 10:00 AM CDT) Narrative Remigio Reese M.D. - 11/22/2023 10:00 AM CDT Remigio Reese M.D. 11/22/2023 12:04 PM Knee site- R knee joint : aspiration and diagnostic-therapeutic injection Performed by: Ivis Dubois M.D. Authorized by: Tammie Qiu APRN C.N.P. Care team members present 1. Remigio [...] Antibodies, IgG (11/21/2023 9:59 AM CDT) Pathologist [facility] Cyclic Citrullinated Peptide Ab, S <15.6 <20.0 (Negative) U 11/21/2023 6:45 PM CDT [facility] Comment: Interpretation: Antibodies to CCP not detected. If clinical symptoms are strongly indicative for rheumatoid arthritis, suggest testing for Rheumatoid Factor, S (RHUT) and, if positive, Rheumatoid Factor Panel, S (RFPN), which includes differentiation of rheumatoid factor IgM and IgA isotypes. Blood (Blood, Venous) 11/21/2023 9:59 AM CDT 11/21/2023 1:12 PM CDT Antolin Mclaughlin M.D. LAB BLOOD ADD-ON Final Result [facility] [address] [place] [address] [facility] [address] [place] [address] * (ABNORMAL) Sedimentation Rate (11/21/2023 9:59 AM CDT) Pathologist [facility] Sedimentation Rate, B 30(H) 3 - 28 mm/h 11/21/2023 11:31 AM CDT DTL Blood (Blood, Venous) 11/21/2023 9:59 AM CDT 11/21/2023 10:20 AM CDT Antolin Mclaughlin M.D. LAB BLOOD ADD-ON Final Result [facility] [address] [place] [address], [facility] [address] [place] [address] * Rheumatoid Factor (11/21/2023 9:59 AM CDT) Pathologist [facility] Rheumatoid Factor, S <15 <15 IU/mL 11/21/2023 1:30 PM CDT [facility] Blood (Blood, Venous) 11/21/2023 9:59 AM CDT 11/21/2023 12:57 PM CDT Antolin Mclaughlin M.D. LAB BLOOD ADD-ON Final Result [facility] [address] [place] [address] [facility] [address] [place] [address] * CRP (C-Reactive Protein) (11/21/2023 9:59 AM CDT) [facility] C-Reactive Protein (CRP), S <3.0 <5.0 mg/L 11/21/2023 11:10 AM CDT [facility] Blood (Blood, Venous) 11/21/2023 9:59 AM CDT 11/21/2023 10:35 AM CDT us Antolin Mclaughlin M.D. LAB BLOOD ADD-ON Final Result [facility] [address] [place] [address], [facility] [address] [place] [address] * Uric Acid (11/21/2023 9:59 AM CDT) Pathologist [facility] Uric Acid, S 3.3 2.7 - 6.1 mg/dL 11/21/2023 11:10 AM CDT DTL Blood (Blood, Venous) 11/21/2023 9:59 AM CDT 11/21/2023 10:35 AM CDT Antolin Mclaughlin M.D. LAB BLOOD ADD-ON Final Result Performing Organization Address [facility] Co de Phone Number [facility] [address] [place] [address], [facility] DTL [facility] [address] [place] [address] * Crystal Identification, Body Fluid (11/14/2023 2:50 PM CDT) Fluid Type Synovial Fluid, Right Knee 11/14/2023 9:56 PM CDT DHPM Crystal ID None seen None seen 11/14/2023 9:56 PM CDT DH Fluid 11/14/2023 2:50 PM CDT 11/14/2023 5:58 PM CDT Antloin Mclaughlin M.D. LAB BODY FLUIDS AND ST OOLS ORDERABLES Final Result Performing Organization Address [facility] de Phone Number [facility] [address] [place] [address], [facility] DHPM [facility] [address] [place] [address] * Cell Count and Differential, Body Fluid [...] This test has been modified from the splitter operator's instructions. Its performance characteristics were determined by [facility] in a manner consistent with CLIA requirements. This test has not been cleared or approved by the U.S. Food and Drug Administration. Neutrophils 52 % 11/14/2023 9:56 PM CDT [facility] Comment: ----REFERENCE VALUE---- Synovial: <25% Peritoneal: <25% Pleural: <25% Pericardial: <25% Lymphocytes 19 Synovial <75% % 11/14/2023 9:56 PM CDT PM Monocytes/Macropha ges 29 Synovial <70% % 11/14/2023 9:56 PM CDT PM Comment See Comment 11/15/2023 9:36 AM CDT PM Comment:No blasts or maligna nt cells seen. Reviewed by: Mago 11/15/2023 9:36 AM CDT [facility] Fluid (Synovial Fluid, Not Otherwise Specified) 11/14/2023 2:50 PM CDT 11/14/2023 5:58 PM CDT us Antolin Mclaughlin M.D. LAB BODY FLUIDS AND ST OOLS ORDERABLES Final Result [facility] [address] [place] [address] * CO ARTHCS ASP/INJ MJR JT W US (11/14/2023 [...] fellow participated in the procedure, and the web development consultant was present for the entire procedure. [...] aspect ofmedial femoral condyle. Antolin Mclaughlin M.D. G DIAGNOSTIC IMAGING PROCEDURES Edited Result - Final from Last 3 Months Insurance MEDICARE [place] Advance Directives For more information, please contact: [phone] Documents on File Type Date Recorded Patient Snuff Maker Expl anation Advance Directives 02/02/2022 9:49 AM INV SANDY * Full Code (Latest Code Status on File) Date Activated Date Inactivated Comments 02/01/2022 8:50 PM 02/02/2022 6:01 PM Question Answer Comments Full Code: Not Discussed Due to: Patient not available Care Teams Aluminum Shingle Roofer Relationship Specialty Start Date End Date Elsewhere, Pcp PCP - General Family Medicine 01/17/24
--- OUTSIDE RECORDS SUMMARY | 2024-02-12 15:03 | XMS_ITS | Encounter Summary ---
Author Organization [facility] Address [address] [place] [address] Care Team Providers Care Product Marketing Coordinator Name Role Phone Unavailable Primary Care Provider Unavailabl e Reason for Referral * MRI/CAT/PET Scan (Routine) - Closed Specialty Diagnoses / Procedures Referred By Ryan cronin Referred To Contact Diagnoses Other Director Education Current Drug Therapy Secondary Malignant Neoplasm Bone (HCC) Squamous Cell Carcinoma Of Skin Of Scalp And Neck Procedures PET CT Skull to Thigh FDG Mc Mcknight M.D., Ph.D. [address] [place] [address] Phone: tel: fax: [facility] Referral ID Status Reason Start Date Expiration Date Visits Re quested Visits Authorized [id number] Closed 11/21/2023 11/20/2024 1 1 Reason for Visit * MRI/CAT/PET Scan (Routine) - Closed Specialty Diagnoses / Procedures Referred By Ryan cronin Referred To Contact Diagnoses Other Fpc Current Drug Therapy Secondary Malignant Neoplasm Bone (HCC) Squamous Cell Carcinoma Of Skin Of Scalp And Neck Procedures PET CT Skull to Thigh FDG Mc Mcknight M.D., Ph.D. [address] [place] [address] Phone: tel: fax: [facility] Referral ID Status Reason Start Date Expiration Date Visits Re quested Visits Authorized [id number] Closed 11/21/2023 11/20/2024 1 1 Encounter Details Date Type Department Care Team (Latest Contact Info) Description 01/02/2024 6:29 AM CDT - 01/02/2024 11:59 PM CDT Hospital Encounter Department of Radiology, [facility] in [place], [place] [address] [place] [address] Mc Mcknight M.D., Ph.D. [address] [place] [address] Other Fpc Current Drug Therapy; Secondary Malignant [...] any clubs o r organizations such as protestant groups, unions, fraternal or athletic groups, or [...] and heating? Not hard at all 09/02/2022 [facility] - Occupational Stress Questionnaire Answer [...] Sex Assigned at Female 01/24/2022 7:37 PM JEWEL STRINGER Legal Sex Female 10:28 AM CDT Gender Identity Female 01/24/2022 7:37 PM JEWEL STRINGER Sexual Orientation Straight 01/24/2022 7: 37 PM JEWEL STRINGER documented as of this encounter Medications at [...] daily. 4 documented as of this encounter Plan of Treatment Upcoming Encounters Date Type Department Care Team (Late st Contact Info) Description 02/26/2024 9:30 AM JEWEL STRINGER Lab Department of Laboratory Medicine and Pathology, [place], [place] [address] [place] [phone] Mc Mcknight M.D., Ph.D. [address] [place] [phone] 02/26/2024 11:30 AM JEWEL STRINGER Appointment Department of Radiology, [place], [place] [address] [place] [phone] Mc Mcknight M.D., Ph.D. [address] [place] [phone] 02/26/2024 3:00 PM JEWEL STRINGER Appointment Department of Radiology, [place], [place] [address] [place] [phone] Mc Mcknight M.D., Ph.D. [address] [place] [phone] 02/27/2024 1:40 PM JEWEL STRINGER Office Visit Department of Oncology in [place], [place] [address] [place] [phone] Mc Mcknight M.D., Ph.D. [address] [place] [phone] 03/01/2024 9:00 AM JEWEL STRINGER Appointment Department of Radiation Oncology in [place], [place] [address] [place] [phone] Tammie Hooks M.D., Ph.D. [address] [place] [phone] documented as of this encounter Procedures Procedure Name Priority Date/Time Associated Diagnosis Comments PET CT SKULL TO THIGH RAD - Routine (most inpatients and all outpatients) 01/02/2024 8:20 AM CDT Other Fpc Current Drug Therapy [...] RADIOPHARMACEUTICAL/MEDS: Route: intravenous fludeoxyglucose F 18 injection ALF (FDG F-18),9.94 millicurie TECHNIQUE: F-18 FDG PET/CT [...] RADIOPHARMACEUTICAL/MEDS: Route: intravenous fludeoxyglucose F 18 injection ALF (FDG F-18),9.94 millicurie TECHNIQUE: F-18 FDG PET/CT [...] direct visualization isrecommended. Mc Mcknight M.D., Ph.D. [facility] PROCEDURE S Final Result documented in this encounter Visit Diagnoses Diagnosis Other Fpc Current Drug Therapy 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 Administered Medications Inactive Administered Medications - up to 3 most recent administrations Medication Order MAR Action Action Date Dose Rate Site fludeoxyglucose F 18 injection ALF (FDG F-18) 4.5-16.5 millicurie, intravenous, Once, On Mon01/02/24 at 0715, For 1 dose, Imaging Protocol Orders Given 01/02/2024 6:49 AM CDT 9.94 millicuries documented in this encounter
--- OUTSIDE RECORDS SUMMARY | 2024-02-12 15:03 | XMS_ITS | Encounter Summary ---
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 [address] [place] [phone] Phone: tel: fax: [facility] Referral ID Status Reason Start Date Expiration Date V isits Requested Visits Authorized [id number] Authorized 01/02/2024 01/01/2025 1 1 * Outpatient (Routine) - Authorized Specialty Diagnoses / Procedures Referred By Ryan cronin Referred To Contact Oncology Mc Mcknight M.D., Ph.D. 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 [address] [place] [phone] Phone: tel: fax: Department of Oncology in [place], [place] [address] [place] [phone] Phone: tel: Referral ID Status Reason Start Date Expiration Date Visits Re quested Visits Authorized [id number] Closed 07/28/2023 07/27/2025 99 99 Encounter Details Date Type Department Care Team (Late st Contact Info) Description 01/02/2024 1:00 PM CDT Office Visit Department of Oncology in [place], [place] [address] [place] [phone] Mc Mcknight M.D., Ph.D. 200 [place] [address] Other Intermediate Current Drug Therapy; Secondary Malignant Neoplasm Bone [...] week 01/24/2022 How often do you attend [facility] or synagogue services? Never 01/24/2022 Do you [...] and heating? Not hard at all 09/02/2022 [facility] Occupat ional Health - Occupational Stress [...] Sex Assigned at Female 01/24/2022 7:37 PM CALCULUS TEACHER Legal Sex Female 10:28 AM CDT Gender Identity Female 01/24/2022 7:37 PM CALCULUS TEACHER Sexual Orientation Straight 01/24/2022 7: 37 PM CALCULUS TEACHER documented as of this encounter Last Filed Vital Signs Vital Sign Reading Time Taken Comments Blood Pressure 117/71 01/02/2024 1:08 PM CDT Pulse 66 01/02/2024 1:08 PM CDT Temperature 36.4 C (97.5 F) 01/02/2024 1:08 PM CDT Respiratory Rate - - Oxygen Saturation 97% [...] the vertex of the scalp. Evaluated by court advocate Dr. Banuelos in [place] and was treated for possible psoriasis. The lesion persisted after 6 weeks. She was then treated with UV phototherapy between September and December of 2021. September 22, 2021---December 17, 2021: Underwent biopsy of the vertex scalp lesion which revealed squamous cell carcinoma. Incisional biopsy of left level 5 lymph node also revealed squamous cell carcinoma. 12/30/2021 Biopsy/Pathology A. Skin, scalp, vertex, excisional biopsy ([id number]; 12/30/2021): Invasive poorly differentiated squamous cell carcinoma, transected at base and lateral edge of the specimen. B. Neck, left, soft tissue, biopsy ([id number]; 01/13/2022): Invasive poorly differentiated squamous cell carcinoma [...] NECK DISSECTION.; Surgeon: Edi Castorena M.D.; Location: [facility] ROMB OR TONSILLECTOMY 1965 TOTAL HYSTERECTOMY 2014 WIDE LOCAL EXCISION Posterior 02/01/2022 Procedure: WIDE LOCAL EXCISION, scalp lesion.; Surgeon: Edi Castorena M.D.; Location: [facility] ROMB OR REVIEW OF SYSTEMS Pertinent items [...] options, Mrs Guevara agreed to proceed as advised.We will bring her back in February for [...] st Contact Info) Description 02/26/2024 9:30 AM CALCULUS TEACHER Lab Department of Laboratory Medicine and Pathology, [place], [place] [address] [place] [phone] Mc Mcknight M.D., Ph.D. [address] [place] [phone] 02/26/2024 11:30 AM CALCULUS TEACHER Appointment Department of Radiology, [facility] in [place], [place] [address] [place] [address] Mc Mcknight M.D., Ph.D. [address] [place] [phone] 02/26/2024 3:00 PM CALCULUS TEACHER Appointment Department of Radiology, [facility] [place] [address] [place] [address] Mc Mcknight M.D., Ph.D. [address] [place] [phone] 02/27/2024 1:40 PM CALCULUS TEACHER Office Visit Department of Oncology in [place], [place] [address] [place] [phone] Mc Mcknight M.D., Ph.D. [address] [place] [phone] 03/01/2024 9:00 AM CALCULUS TEACHER Appointment Department of Radiation Oncology in [place], [place] [address] [place] [phone] Tammie Hooks M.D., Ph.D. 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 Expected: 03/03/2024 (Approximate), Expires: 04/03/2025 CBC with Differential, Blood Lab Routine Other Intermediate Current Drug Therapy 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 Expected: 03/03/2024 (Approximate), Expires: 01/01/2025 Comprehensive Metabolic Panel Lab Routine Other Chimney Builder Helper Current Drug Therapy 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
--- OUTSIDE RECORDS SUMMARY | 2024-02-12 15:03 | XMS_ITS | Encounter Summary ---
Author Organization [facility] Address [address] [place] [address] Care Team Providers Care Business Office Technician Name Role Phone Unavailable Primary Care Provider Unavailabl e Reason for Visit * Outpatient (Routine) - Authorized Specialty Diagnoses / Procedures Referred By Ryan t Referred To Contact Research Diagnoses Secondary Malignant Neoplasm Bone (HCC) Gertrudis Marks M.D., Ph.D. [address] [place] [address] Phone: tel: fax: [facility] Referral ID Status Reason Start Date Expiration Date V isits Requested Visits Authorized [id number] Authorized 12/12/2023 06/12/2025 1 1 Encounter Details Date Type Department Care Team (Latest Contact Info) Description 01/01/2024 3:30 PM CDT Clinical Support - [facility] Division of Rheumatology in [place], [place] [address] [place] [phone] Gertrudis Marks M.D., Ph.D. [address] [place] [phone] Tahira Lujan Secondary Malignant Neoplasm Bone (HCC) [...] and heating? Not hard at all 09/02/2022 [facility] [place] of Occupat ional Health - Occupational Stress [...] your living situation today? I have a [facility] place to live 02/16/2023 Education Answer Date Recorded What is the highest level of school you have completed or the highest degree you have received? Bachelor's degree (e.g., BA, AB, BS) 01/24/2022 Comments No Sex and Gender Information Value Date Recorded Sex Assigned at Female 01/24/2022 7:37 PM AUTO PARTS MANAGER Legal Sex Female 10:28 AM CDT Gender Identity Female 01/24/2022 7:37 PM AUTO PARTS MANAGER Sexual Orientation Straight 01/24/2022 7: 37 PM AUTO PARTS MANAGER documented as of this encounter Plan of Treatment Upcoming Encounters Date Type Department Care Team (Late st Contact Info) Description 02/26/2024 9:30 AM AUTO PARTS MANAGER Lab Department of Laboratory Medicine and Pathology, [facility] in [place], [place] [address] [place] [phone] Mc Mcknight M.D., Ph.D. [address] [place] [phone] 02/26/2024 11:30 AM AUTO PARTS MANAGER Appointment Department of Radiology, [facility] in [place], [place] [address] [place] [phone] Mc Mcknight M.D., Ph.D. [address] [place] [phone] 02/26/2024 3:00 PM AUTO PARTS MANAGER [facility] [place] [place] [address] [place] [phone] Mc Mcknight M.D., Ph.D. [address] [place] [phone] 02/27/2024 1:40 PM AUTO PARTS MANAGER Office Visit Department of Oncology in [place], [place] [address] [place] [phone] Mc Mcknight M.D., Ph.D. [address] [place] [phone] 03/01/2024 9:00 AM AUTO PARTS MANAGER Appointment Department of Radiation Oncology in [place], [place] [address] [place] [phone] Tammie Hooks M.D., Ph.D. [address] [place] [phone] documented as of this encounter Visit Diagnoses Diagnosis Secondary Malignant Neoplasm Bone (HCC) documented in this encounter
--- OUTSIDE RECORDS SUMMARY | 2024-02-12 15:03 | XMS_ITS ---
Author Organization [facility] Address [address] [place] [address] Care Team Providers Care Inspecting Engineer Name Role Phone Elsewhere, Pcp Primary Care Provider Unavailabl e Active Problems * This document contains information received from the source organization and may not represent a complete record from that organization. Problem Noted Date Diagnosed Date Secondary Malignant Neoplasm Bone 07/28/2023 Other Correction Current Drug Therapy 07/28/2023 Malignant Neoplasm Of Neck Squamous Cell 022 Squamous Cell Carcinoma Of Skin Of Scalp And Nec k 01/26/2022 Overview (01/26/2022): Added automatically from request for surgery [id number] Amnesia 01/26/2022 Disorder Of The Skin And [...] Treated Prescribed Fraction Dose Prescribed Total Dose [id number] 04/29/2022 39 30 of 30 220 cGy 6,600 cGy [id number] 04/29/2022 39 30 of 30 200 cGy 6,000 cGy Reference Point Last Treated On Elapsed Days Session Dose Total Dose [id number] 04/29/2022 39 200 cGy 6,000 cGy [id number] 04/29/2022 39 220 cGy 6,600 cGy
--- OUTSIDE RECORDS SUMMARY | 2024-02-12 15:03 | XMS_ITS | Encounter Summary ---
Author Organization [facility] Address [address] [place] [address] Care Team Providers Care Molder Sweep Name Role Phone Elsewhere, Pcp Primary Care Provider Unavailabl e Reason for Referral * Behavioral Health (Routine) - Closed Specialty Diagnoses / Procedures Referred By Ryan cronin Referred To Contact Psychiatry / Psychiatry and Psychology Diagnoses Loss Memory Procedures PSY Neuropsychology testing - Behavioral Neurology Kory Alas M.B., Ch.B. [address] [place] [address] Phone: tel: fax: [facility] Referral ID Status Reason Start Date Expiration Date Visits Re quested Visits Authorized [id number] Closed 01/19/2024 01/18/2025 1 1 Y GRAZER Reason for Visit * Outpatient (Routine) - Closed Specialty Diagnoses / Procedures Referred By Ryan cronin Referred To Contact Neurology Diagnoses Squamous Cell Carcinoma Of Skin Of Scalp And Neck Tammie Hooks M.D., Ph.D. [address] [place] [phone] Phone: tel: fax: [facility] Referral ID Status Reason Start Date Expiration Date Visits Re quested Visits Authorized [id number] Closed 10/11/2023 04/11/2025 1 1 Encounter Details Date Type Department Care Team (Latest Contact Info) Description 01/19/2024 1:00 PM DAIRY GRAZER Comprehensive Visit Department of Neurology in [place], [place] [address] [place] [phone] Kory Alas M.B., Ch.B. [address] [place] [phone] Loss Memory (Primary Dx); Squamous Cell Carcinoma [...] and heating? Not hard at all 09/02/2022 [facility] [place] of Occupat ional Health - Occupational Stress [...] Sex Assigned at Female 01/24/2022 7:37 PM DAIRY GRAZER Legal Sex Female 10:28 AM CDT Gender Identity Female 01/24/2022 7:37 PM DAIRY GRAZER Sexual Orientation Straight 01/24/2022 7: 37 PM DAIRY GRAZER documented as of this encounter Last Filed Vital Signs Vital Sign Reading Time Taken Comments Blood Pressure 103/58 01/19/2024 12:53 PM DAIRY GRAZER Pulse 69 01/19/2024 12:53 PM DAIRY GRAZER Temperature - - Respiratory Rate - - Oxygen Saturation - - Inhaled Oxygen Concentration - - Weight 58.2 kg (128 lb 4.9 oz) 01/19/2024 12:53 PM DAIRY GRAZER Height 163 cm (5' 4.17) 01/19/2024 12:53 PM DAIRY GRAZER Body Mass Index 21.91 01/19/2024 12:53 PM DAIRY GRAZER documented in this encounter Consult Notes * Kory Alas M.B., Ch.B. - 01/19/2024 1:00 PM CST Mrs. Guevara is a 78-year-old woman here unaccompanied for memory loss and word-finding problems. Her oncologic history is well summarized in the notes. Against this background she developed word-finding problems and short-term memory loss she thinks it has been there for a year or so that certainly has been more noticeable over the summer. She would have to think very hard on a word and sometimes only get it after 20 minutes. Similarly she may walk into a room and forgot why she came there. Her has noticed word-finding problems per her recollection and her daughter has noticed that she talks about the past more. That said she remains fully independent in all aspects of daily living. In fact she does more than her fair share because her is legally blind, meaning that she does all of the driving for instance. Because of his strong family history (see below) she wanted to get checked out. Family history Mom, maternal grandmother, some maternal aunts, as well as her own sister were all diagnosed with Alzheimer's disease. In his sister and her mom's case these were [id number] the 60s or late 50s. Her brothers do not have any problems. Physical examination She did well on the short test of mental status only losing 3 points for calculations for a total score of 35/38. She did similarly well on the Jesi naming battery getting 15/15 on the 1st half of the test. On the rest of her exam there is no ideomotor apraxia, no parkinsonism, and her gait and station are normal. Investigations We looked at her brain MRI scan together. The brain looks normal for her age without any signs of atrophy in the medial temporal lobes. She had a body PET scan and although this is slightly differentin technique from a brain PET scan I did run it through our software and it appeared to show normalbrain metabolism. We also have software that looks similar cases and her similar cases with disproportionately cognitively unimpaired. Assessment In summary then she is a 78-year-old woman who has noticed subtle changes in memory and language with normal bedside testing and normal brain imaging. I share her concern in light of her strong family history but currently she appears to be normal for her age based on the information at hand. I do think it would be worthwhile to get formal neuropsychologic testing and establish and more robust baseline. If there are any abnormalities on this test we can consider more dedicated investigations for Alzheimer's disease including a blood test. If, however, the neuropsychologic testing appears normal we can simply follow her over time. She is in agreement with this plan. 1. Subjective cognitive impairment 2. Squamous cell carcinoma of the scalp Time 45 minutes Y GRAZER documented in this encounter Plan of Treatment Upcoming Encounters Date Type Department Care Team (Late st Contact Info) Description 02/26/2024 9:30 AM DAIRY GRAZER Lab Department of Laboratory Medicine and Pathology, [facility], in [place], [place] [address] [place] [phone] Mc Mcknight M.D., Ph.D. [address] [place] [phone] 02/26/2024 11:30 AM DAIRY GRAZER Appointment Department of Radiology, [facility] in [place], [place] [address] [place] [phone] Mc Mcknight M.D., Ph.D. [address] [place] [phone] 02/26/2024 3:00 PM DAIRY GRAZER Appointment Department of Radiology, [facility] in [place], [place] [address] [place] [phone] Mc Mcknight M.D., Ph.D. [address] [place] [phone] 02/27/2024 1:40 PM DAIRY GRAZER Office Visit Department of Oncology in [place], [place] [address] [place] [phone] Mc Mcknight M.D., Ph.D. [address] [place] [phone] 03/01/2024 9:00 AM DAIRY GRAZER Appointment Department of Radiation Oncology in [place], [place] [address] [place] [phone] Tammie Hooks M.D., Ph.D. [address] [place] [phone] documented as of this encounter Visit Diagnoses Diagnosis Loss Memory- Primary Squamous Cell Carcinoma Of Skin Of Scalp And Neck documented in this encounter Care Teams Molder Sweep Relationship Specialty Start Date End Date Elsewhere, Pcp PCP - General Family Medicine 01/17/24 documented as of this encounter
--- OUTSIDE RECORDS SUMMARY | 2024-02-12 15:04 | XMS_ITS | Encounter Summary ---
Author Organization [facility] Address [address] [place] [address] Care Team Providers Care Resident Assistant Cna Name Role Phone Unavailable Primary Care Provider Unavailabl e Encounter Details Date Type Department Care Team (Late st Contact Info) Description 11/24/2023 Clinical Communication Department of Oncology in [place], [place] [address] [place] [phone] Mc Mcknight M.D., Ph.D. [address] [place] [phone] Social History Tobacco Use Types Packs/Day Years [...] and heating? Not hard at all 09/02/2022 [facility] of Occupat ionaz Health - Occupational Stress Questionnaire Answer Date [...] have a [facility] place to live 02/16/2023 Education Answer Date Recorded What is the highest level of school you have completed or the highest degree you have received? Bachelor's degree (e.g., BA, AB, BS) 01/24/2022 Comments No Sex and Gender Information Value Date Recorded Sex Assigned at Female 01/24/2022 7:37 PM PUBLIC SERVICE OFFICER Legal Sex Female 10:28 AM CDT Gender Identity Female 01/24/2022 7:37 PM PUBLIC SERVICE OFFICER Sexual Orientation Straight 01/24/2022 7: 37 PM PUBLIC SERVICE OFFICER documented as of this encounter Plan of Treatment Upcoming Encounters Date Type Department Care Team (Late st Contact Info) Description 02/26/2024 9:30 AM PUBLIC SERVICE OFFICER Lab Department of Laboratory Medicine and Pathology, [place], [place] [address] [place] [phone] Mc Mcknight M.D., Ph.D. 200 [place] [phone] 02/26/2024 11:30 AM PUBLIC SERVICE OFFICER Appointment Department of Radiology, [facility] in [place], [place] [address] [place] [phone] Mc Mcknight M.D., Ph.D. [address] [place] [phone] 02/26/2024 3:00 PM PUBLIC SERVICE OFFICER Appointment Department of Radiology, [facility] in [place], [place] [address] [place] [phone] Mc Mcknight M.D., Ph.D. [address] [place] [phone] 02/27/2024 1:40 PM PUBLIC SERVICE OFFICER Office Visit Department of Oncology in [place], [place] [address] [place] [phone] Mc Mcknight M.D., Ph.D. [address] [place] [phone] 03/01/2024 9:00 AM PUBLIC SERVICE OFFICER Appointment Department of Radiation Oncology in [place], [place] [address] [place] [phone] Tammie Hooks M.D., Ph.D. [address] [place] [phone] documented as of this encounter Visit Diagnoses Not on filedocumented in this encounter
--- OUTSIDE RECORDS SUMMARY | 2024-02-12 15:04 | XMS_ITS | Encounter Summary ---
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 [address] [place] [phone] Phone: tel: fax: Department of Oncology in [place], [place] 200 [place] [address] Phone: tel: Referral ID Status Reason Start Date Expiration Date Visits Re quested Visits Authorized [id number] Closed 07/28/2023 07/27/2025 99 99 Encounter Details Date Type Department Care Team ([facility] st Contact Info) Description 12/12/2023 1:00 PM CDT Office Visit Department of Oncology in [place], [place] [address] [place] [phone] Mc Mcknight M.D., Ph.D. [address] [place] [phone] Other Group Home Current Drug Therapy; Secondary [...] and heating? Not hard at all 09/02/2022 [facility] [place] of Occupat ional Health - Occupational Stress [...] living situation today? I have a [facility] place to live 02/16/2023 Education Answer Date Recorded What is the highest level of school you have completed or the highest degree you have received? Bachelor's degree (e.g., BA, AB, BS) 01/24/2022 Comments No Sex and Gender Information Value Date Recorded Sex Assigned at Female 01/24/2022 7:37 PM SECURITY SITE SUPERVISOR Legal Sex Female 10:28 AM CDT Gender Identity Female 01/24/2022 7:37 PM SECURITY SITE SUPERVISOR Sexual Orientation Straight 01/24/2022 7: 37 PM SECURITY SITE SUPERVISOR documented as of this encounter Last Filed Vital Signs Vital Sign Reading Time Taken Comments Blood Pressure 96/62 12/12/2023 12:31 PM CDT Pulse 62 12/12/2023 12:31 PM CDT Temperature 36.6 C (97.9 F) 12/12/2023 12:31 PM CDT Respiratory Rate 16 12/12/2023 12:31 [...] the vertex of the scalp. Evaluated by highway patrol pilot Dr. Banuelos in [place] and was treated for possible psoriasis. The lesion persisted after 6 weeks. She was then treated with UV phototherapy between September and December of 2021. September 22, 2021---December 17, 2021: Underwent biopsy of the vertex scalp lesion which revealed squamous cell carcinoma. Incisional biopsy of left level 5 lymph node also revealed squamous cell carcinoma. 12/30/2021 Biopsy/Pathology A. Skin, scalp, vertex, excisional biopsy ([id number]; 12/30/2021): Invasive poorly differentiated squamous cell carcinoma, transected at base and lateral edge of the specimen. B. Neck, left, soft tissue, biopsy ([id number]; 01/13/2022): Invasive poorly differentiated squamous cell carcinoma [...] st Contact Info) Description 02/26/2024 9:30 AM SECURITY SITE SUPERVISOR Lab Department of Laboratory Medicine and Pathology, [place], [place] [address] [place] [phone] Mc Mcknight M.D., Ph.D. [address] [place] [phone] 02/26/2024 11:30 AM SECURITY SITE SUPERVISOR Appointment Department of Radiology, [place], [place] [address] [place] [phone] Mc Mcknight M.D., Ph.D. [address] [place] [phone] 02/26/2024 3:00 PM SECURITY SITE SUPERVISOR Appointment Department [place], [place] [address] [place] [phone] Mc Mcknight M.D., Ph.D. [address] [place] [phone] 02/27/2024 1:40 PM SECURITY SITE SUPERVISOR Office Visit Department of Oncology in [place], [place] [address] [place] [phone] Mc Mcknight M.D., Ph.D. [address] [place] [phone] 03/01/2024 9:00 AM SECURITY SITE SUPERVISOR Appointment Department of Radiation Oncology in [place], [place] [address] [place] [phone] Tammie Hooks M.D., Ph.D. 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
--- OUTSIDE RECORDS SUMMARY | 2024-02-12 15:04 | XMS_ITS | Encounter Summary ---
Author Organization [facility] Address 200 [place] [address] Care Team Providers Care Agriculture Sales Account Manager Name Role Phone Unavailable Primary Care Provider Unavailabl e Reason for Visit * Outpatient (Routine) - Closed Specialty Diagnoses / Procedures Referred By Contgiana t Referred To Contact Diagnoses Arthritis Inflammatory (HCC) Procedures RHU US-Guided Aspiration/Injection - Large Joint Tammie Qiu APRN, C.N.P. 200 [place] [address] Phone: tel: fax: [facility] Referral ID Status Reason Start Date Expiration Date Visits Re quested Visits Authorized [id number] Closed 11/21/2023 11/20/2024 1 1 Encounter Details Date Type Department Care Team (Latest Contact Info) Description 11/22/2023 10:00 AM CDT Procedure visit Division of Rheumatology in [place], [place] 200 [place] [phone] Tammie Qiu APRN, C.N.P. [address] [place] [phone] Remigio Reese M.D. [address] [place] [phone] Arthritis Inflammatory (HCC) Social History Tobacco Use [...] your living situation today? I have a [facility] place to live 02/16/2023 Education Answer Date Recorded What is the highest level of school you have completed or the highest degree you have received? Bachelor's degree (e.g., BA, AB, BS) 01/24/2022 Comments No Sex and Gender Information Value Date Recorded Sex Assigned at Female 01/24/2022 7:37 PM STORE OPERATIONS ASSOCIATE Legal Sex Female 10:28 AM CDT Gender Identity Female 01/24/2022 7:37 PM STORE OPERATIONS ASSOCIATE Sexual Orientation Straight 01/24/2022 7: 37 PM STORE OPERATIONS ASSOCIATE documented as of this encounter Progress Notes [...] ASSESSMENT Fall prevention interventions utilized: Walk With Me Pain Score Pre-procedure: 3/10 Pain Score Post-procedure: [...] st Contact Info) Description 02/26/2024 9:30 AM STORE OPERATIONS ASSOCIATE Lab Department of Laboratory Medicine and Pathology, [facility], in [place], [place] [address] [place] [phone] Mc Mcknight M.D., Ph.D. [address] [place] [phone] 02/26/2024 11:30 AM STORE OPERATIONS ASSOCIATE Appointment Department of Radiology, [facility] in [place], [place] [address] [place] [phone] Mc Mcknight M.D., Ph.D. [address] [place] [phone] 02/26/2024 3:00 PM STORE OPERATIONS ASSOCIATE Appointment Department of Radiology, [facility] in [place], [place] [address] [place] [phone] Mc Mcknight M.D., Ph.D. [address] [place] [phone] 02/27/2024 1:40 PM STORE OPERATIONS ASSOCIATE Office Visit Department of Oncology in [place], [place] [address] [place] [phone] Mc Mcknight M.D., Ph.D. [address] [place] [phone] 03/01/2024 9:00 AM STORE OPERATIONS ASSOCIATE Appointment Department of Radiation Oncology in [address] [phone] Tammie Hooks M.D., Ph.D. [address] [place] [phone] documented as of this encounter Procedures Procedure [...]
--- OUTSIDE RECORDS SUMMARY | 2024-02-12 15:04 | XMS_ITS | Encounter Summary ---
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 [address] [place] [phone] Phone: tel: fax: Department of Oncology in [place], [place] 200 [place] [address] Phone: tel: Referral ID Status Reason Start Date Expiration Date Visits Re quested Visits Authorized [id number] Closed 07/28/2023 07/27/2025 99 99 Encounter Details Date Type Department Care Team (Late st Contact Info) Description 12/12/2023 3:00 PM CDT Infusion Department of Oncology in [place], [place] [address] [place] [phone] Remigio Frey M.D., Ph.D. 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 Never 01/24/2022 Do you [...] heating? Not hard at all 09/02/2022 [facility] of Occupat ional Health - [...] Sex Assigned at Female 01/24/2022 7:37 PM ENROBING MACHINE CORDER Legal Sex Female 10:28 AM CDT Gender Identity Female 01/24/2022 7:37 PM ENROBING MACHINE CORDER Sexual Orientation Straight 01/24/2022 7: 37 PM ENROBING MACHINE CORDER documented as of this encounter Plan of Treatment Upcoming Encounters Date Type Department Care Team (Late st Contact Info) Description 02/26/2024 9:30 AM ENROBING MACHINE CORDER Lab Department of Laboratory Medicine and Pathology, [facility] in [place], [place] [address] [place] [phone] Mc Mcknight M.D., Ph.D. [address] [place] [phone] 02/26/2024 11:30 AM ENROBING MACHINE CORDER Appointment Department of Radiology, [facility] in [place], [place] [address] [place] [phone] Mc Mcknight M.D., Ph.D. [address] [place] [phone] 02/26/2024 3:00 PM ENROBING MACHINE CORDER [facility] [place], [place] [address] [place] [phone] Mc Mcknight M.D., Ph.D. [address] [place] [phone] 02/27/2024 1:40 PM ENROBING MACHINE CORDER Office Visit Department of Oncology in [place], [place] [address] [place] [phone] Mc Mcknight M.D., Ph.D. [address] [place] [phone] 03/01/2024 9:00 AM ENROBING MACHINE CORDER Appointment Department of Radiation Oncology in [place], [place] [address] [place] [phone] Tammie Hooks M.D., Ph.D. 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
--- OUTSIDE RECORDS SUMMARY | 2024-02-12 15:04 | XMS_ITS | Encounter Summary ---
Author Organization [facility] Address [address] [place] [address] Care Team Providers Care Leisure Travel Agent Name Role Phone Unavailable Primary Care Provider Unavailabl e Reason for Referral * Outpatient (Routine) - Authorized Specialty Diagnoses / Procedures Referred By Contac t Referred To Contact Research Diagnoses Secondary Malignant Neoplasm Bone (HCC) Gertrudis Marks M.D., Ph.D. 200 [place] [address] Phone: tel: fax: [facility] Referral ID Status Reason Start Date Expiration Date V isits Requested Visits Authorized [id number] Authorized 12/12/2023 06/12/2025 1 1 Encounter Details Date Type Department Care Team (Late st Contact Info) Description 12/12/2023 Orders Only Division of Rheumatology in [place], [place] [address] [place] [phone] Gertrudis Marks M.D., Ph.D. 200 [place] [phone] Secondary Malignant Neoplasm Bone (HCC) (Primary Dx) [...] often do you attend chur ch or sikh services? Never 01/24/2022 Do you belong to any clubs o r organizations such as oriental orthodox groups, unions, fraternal or athletic groups, [...] and heating? Not hard at all 09/02/2022 [facility] of Occupat ional Health - Occupational Stress [...] your living situation today? I have a [facility] place to live 02/16/2023 Education Answer Date Recorded What is the highest level of school you have completed or the highest degree you have received? Bachelor's degree (e.g., BA, AB, BS) 01/24/2022 Comments No Sex and Gender Information Value Date Recorded Sex Assigned at Female 01/24/2022 7:37 PM NET APPLICATION SUPPORT SPECIALIST Legal Sex Female 10:28 AM CDT Gender Identity Female 01/24/2022 7:37 PM NET APPLICATION SUPPORT SPECIALIST Sexual Orientation Straight 01/24/2022 7: 37 PM NET APPLICATION SUPPORT SPECIALIST documented as of this encounter Plan of Treatment Upcoming Encounters Date Type Department Care Team (Late st Contact Info) Description 02/26/2024 9:30 AM NET APPLICATION SUPPORT SPECIALIST Lab Department of Laboratory Medicine and Pathology, [place], [place] [address] [place] [phone] Mc Mcknight M.D., Ph.D. [address] [place] [phone] 02/26/2024 11:30 AM NET APPLICATION SUPPORT SPECIALIST Appointment Department of Radiology, [facility] in [place], [place] [address] [place] [phone] Mc Mcknight M.D., Ph.D. [address] [place] [phone] 02/26/2024 3:00 PM NET APPLICATION SUPPORT SPECIALIST Appointment Department of Radiology, [facility] in [place], [place] [address] [place] [phone] Mc Mcknight M.D., Ph.D. [address] [place] [phone] 02/27/2024 1:40 PM NET APPLICATION SUPPORT SPECIALIST Office Visit Department of Oncology in [address] [phone] Mc Mcknight M.D., Ph.D. [address] [place] [phone] 03/01/2024 9:00 AM NET APPLICATION SUPPORT SPECIALIST Appointment Department of Radiation Oncology in [address] [phone] Tammie Hooks M.D., Ph.D. [address] [place] [phone] Scheduled Referrals Name Type Priority Associated Diagnoses Order Schedule Research Wind Field Manager office visit (clinic) Outpatient Referral Routine Secondary Malignant Neoplasm Bone (HCC) Expected: 01/01/2024, Expires: 03/13/2025 documented as of this encounter Results * [facility] Research, Blood (01/01/2024 4:21 PM CDT) Number of Specimens 6 01/01/2024 4:21 PM CDT HSS Blood (Blood, Venous) 01/01/2024 4:21 PM CDT 01/01/2024 4:21 PM CDT us Gertrudis Marks M.D., Ph.D. LAB RESEARCH NO RESULT ROUTING Final Result [facility] [address] [place] [address], [facility] [address] [place] [address] documented in this encounter Visit Diagnoses Diagnosis Secondary Malignant Neoplasm Bone (HCC)- Primary documented in this encounter
--- OUTSIDE RECORDS SUMMARY | 2024-02-12 15:04 | XMS_ITS | Encounter Summary ---
Author Organization [facility] Address 200 [place] [address] Care Team Providers Care Store Hand Name Role Phone Unavailable Primary Care Provider Unavailabl e Reason for Referral * Outpatient (Routine) - Closed Specialty Diagnoses / Procedures Referred By Ryan cronin Referred To Contact Diagnoses Arthritis Inflammatory (HCC) Procedures RHU US-Guided Aspiration/Injection - Large Joint Tammie Qiu APRN, C.N.P. 200 [place] [address] Phone: tel: fax: [facility] Referral ID Status Reason Start Date Expiration Date Visits Re quested Visits Authorized [id number] Closed 11/21/2023 11/20/2024 1 1 Reason for Visit * Outpatient (Routine) - Closed Specialty Diagnoses / Procedures Referred By Contac t Referred To Contact Rheumatology Diagnoses Arthritis Inflammatory (HCC) Antolin Mclaughlin M.D. 200 [place] [address] Phone: tel: fax: [facility] Referral ID Status Reason Start Date Expiration Date V isits Requested Visits Authorized [id number] Closed Specialty Services Required 11/17/2023 05/18/2025 1 1 Encounter Details Date Type Department Care Team (Latest Contact Info) Description 11/21/2023 7:45 AM CDT Comprehensive Visit Division of Rheumatology in [place], [place] [address] [place] [phone] Antolin Mclaughlin M.D. [address] [place] [phone] Tammie Qiu APRN CNeyN.P. [address] [place] [phone] Arthritis Inflammatory (HCC) (Primary Dx) [...] hard at all 09/02/2022 [facility] [place] of Occupat ional Health - Occupational Stress [...] Sex Assigned at Female 01/24/2022 7:37 PM FISHER GILL NET Legal Sex Female 10:28 AM CDT Gender Identity Female 01/24/2022 7:37 PM FISHER GILL NET Sexual Orientation Straight 01/24/2022 7: 37 PM FISHER GILL NET documented as of this encounter Consult Notes [...] seen in collaboration with Dr. García, Rheumatology home energy consultant supervisor. Cosigned by Teodora García M.B.B.S. at 11/23/2023 1:40 PM CDT Associated attestation - Teodora García M.B.B.S. - 11/23/2023 1:40 PM CDT I have seen, discussed, and examined Ms. Veronica Guevara with the nurse practitioner and reviewed the pertinent history , examination, laboratory parameters, imaging studies, assessment , and plan. I have reviewed the assessment and plan as documented by Tammie Qiu APRN, CNP and am in agreement. Ms. 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 [address] [place] [phone] 02/26/2024 11:30 AM FISHER GILL NET Appointment Department of Radiology, [facility] in [place], [place] [address] [place] [phone] Mc Mcknight M.D., Ph.D. [address] [place] [phone] 02/26/2024 3:00 PM FISHER GILL NET Appointment Department of Radiology, [facility] in [place], [place] [address] [place] [phone] cM Mcknight M.D., Ph.D. [address] [place] [phone] 02/27/2024 1:40 PM FISHER GILL NET Office Visit Department of Oncology in [address] [phone] Mc Mcknight M.D., Ph.D. [address] [place] [phone] 03/01/2024 9:00 AM FISHER GILL NET Appointment Department of Radiation Oncology in [address] [phone] Tammie Hooks M.D., Ph.D. [address] [place] [phone] documented as of this encounter Results * [facility] ASP/INJ MJR JT W (11/22/2023 10:00 AM CDT) Remigio [place] M.D. - 11/22/2023 10:00 AM CDT Remigio [...]
--- OUTSIDE RECORDS SUMMARY | 2024-02-12 15:04 | XMS_ITS | Encounter Summary ---
Author Organization [facility] Address [address] [place] [phone] Care Team Providers Care Emergency Medcl Emt Name Role Phone Unavailable Primary Care Provider Unavailabl e Encounter Details Date Type Department Care Team (Latest Contact Info) Description 12/29/2023 1:15 PM CDT Clinical Communication Virtual Review in [place], [place] [address] [place] [address] Social History Tobacco Use Types Packs/Day Years [...] Not hard at all 09/02/2022 [facility] of Occupat ional Health - Occupational Stress [...] your living situation today? I have a [facility] place to live 02/16/2023 Education Answer Date Recorded What is the highest level of school you have completed or the highest degree you have received? Bachelor's degree (e.g., BA, AB, BS) 01/24/2022 Comments No Sex and Gender Information Value Date Recorded Sex Assigned at Female 01/24/2022 7:37 PM GUEST SERVICES ASSOCIATE Legal Sex Female 10:28 AM CDT Gender Identity Female 01/24/2022 7:37 PM GUEST SERVICES ASSOCIATE Sexual Orientation Straight 01/24/2022 7: 37 PM GUEST SERVICES ASSOCIATE documented as of this encounter Plan of Treatment Upcoming Encounters Date Type Department Care Team (Late st Contact Info) Description 02/26/2024 9:30 AM GUEST SERVICES ASSOCIATE Lab Department of Laboratory Medicine and Pathology, [place], [place] [address] [place] [address] Mc Mcknight M.D., Ph.D. [address] [place] [phone] 02/26/2024 11:30 AM GUEST SERVICES ASSOCIATE Appointment Department of Radiology, [place], [place] [address] [place] [address] Mc Mcknight M.D., Ph.D. [address] [place] [phone] 02/26/2024 3:00 PM GUEST SERVICES ASSOCIATE Appointment Department of Radiology, [facility] in [place], [place] [address] [place] [address] Mc Mcknight M.D., Ph.D. [address] [place] [phone] 02/27/2024 1:40 PM GUEST SERVICES ASSOCIATE Office Visit Department of Oncology in [place], [place] [address] [place] [phone] Mc Mcknight M.D., Ph.D. [address] [place] [phone] 03/01/2024 9:00 AM GUEST SERVICES ASSOCIATE Appointment Department of Radiation Oncology in [address] [phone] Tammie Hooks M.D., Ph.D. [address] [place] [phone] documented as of this encounter Visit Diagnoses Not on filedocumented in this encounter
--- OUTSIDE RECORDS SUMMARY | 2024-02-12 15:04 | XMS_ITS | Encounter Summary ---
Author Organization [facility] Address 200 [place] [address] Care Team Providers Care Distribution Collection Operator Name Role Phone Unavailable Primary Care Provider Unavailabl e Reason for Referral * MRI/CAT/PET Scan (Routine) - Closed Specialty Diagnoses / Procedures Referred By Ryan cronin Referred To Contact Radiology Diagnoses Squamous Cell Carcinoma Of Skin Of Scalp And Neck Procedures MR Brain without and with IV Contrast Tammie Hooks M.D., Ph.D. 200 [place] [address] Phone: tel: fax: [facility] Referral ID Status Reason Start Date Expiration Date Visits Re quested Visits Authorized [id number] Closed 04/14/2023 04/13/2024 1 1 Reason for Visit * MRI/CAT/PET Scan (Routine) - Closed Specialty Diagnoses / Procedures Referred By Ryan cronin Referred To Contact Radiology Diagnoses Squamous Cell Carcinoma Of Skin Of Scalp And Neck Procedures MR Brain without and with IV Contrast Tammie Hooks M.D., Ph.D. 200 [place] [address] Phone: tel:[phone] fax: [facility] Referral ID Status Reason Start Date Expiration Date Visits Re quested Visits Authorized [id number] Closed 04/14/2023 04/13/2024 1 1 Encounter Details Date Type Department Care Team (Latest Contact Info) Description 01/01/2024 4:25 PM CDT - 01/01/2024 11:59 PM CDT Hospital Encounter Department of Radiology, [facility] in [place], [place] [address] [place] [address] Tammie Hooks M.D., Ph.D. [address] [place] [address] Squamous Cell Carcinoma Of Skin Of Scalp [...] 01/24/2022 How often do you attend [facility] or yazdanism services? Never 01/24/2022 Do you [...] and heating? Not hard at all 09/02/2022 [facility] of Occupat ional Health - Occupational Stress [...] living situation today? I have a [facility] place to live 02/16/2023 Education Answer Date Recorded What is the highest level of school you have completed or the highest degree you have received? Bachelor's degree (e.g., BA, AB, BS) 01/24/2022 Comments No Sex and Gender Information Value Date Recorded Sex Assigned at Female 01/24/2022 7:37 PM MANAGER SITE Legal Sex Female 10:28 AM CDT Gender Identity Female 01/24/2022 7:37 PM MANAGER SITE Sexual Orientation Straight 01/24/2022 7: 37 PM MANAGER SITE documented as of this encounter Medications at [...] st Contact Info) Description 02/26/2024 9:30 AM MANAGER SITE Lab Department of Laboratory Medicine and Pathology, [place], [place] [address] [place] [phone] Mc Mcknight M.D., Ph.D. [address] [place] [phone] 02/26/2024 11:30 AM MANAGER SITE Appointment Department of Radiology, [place], [place] [address] [place] [phone] Mc Mcknight M.D., Ph.D. [address] [place] [phone] 02/26/2024 3:00 PM MANAGER SITE Appointment Department of Radiology, [place], [place] [address] [place] [phone] Mc Mcknight M.D., Ph.D. [address] [place] [phone] 02/27/2024 1:40 PM MANAGER SITE Office Visit Department of Oncology in [place], [place] [address] [place] [phone] Mc Mcknight M.D., Ph.D. [address] [place] [phone] 03/01/2024 9:00 AM MANAGER SITE Appointment Department of Radiation Oncology in [place], [place] [address] [place] [phone] Tammie Hooks M.D., Ph.D. [address] [place] [phone] documented as of this encounter Procedures Procedure [...] Modality Head, Brain, Neuroradiology [facility], Neuroradiology [facility], Neuroradiology [facility] N/A Magnetic Resonance Impressions 01/02/2024 9:06 AM [...] also demonstrated slow progressive growth since 2022 ([id number], image 174). Tiny enhancing dermal focus in the high midline posterior scalp ([id number], image 77) is unchanged since the prior [...]
--- OUTSIDE RECORDS SUMMARY | 2024-02-12 15:04 | XMS_ITS | Encounter Summary ---
Author Organization [facility] Address 200 [place] [address] Care Team Providers Care Nat Instructor Name Role Phone Unavailable Primary Care Provider Unavailabl e Reason for Referral * Outpatient (Routine) - Closed Specialty Diagnoses / Procedures Referred By Ryan t Referred To Contact Diagnoses Arthritis Inflammatory (HCC) Procedures DX Ankle Bilateral 3+ Views DX Ankle Left 3+ Views Antolin Mclaughlin M.D. 200 [place] [address] Phone: tel: fax: [facility] Referral ID Status Reason Start Date Expiration Date Visits Re quested Visits Authorized [id number] Closed 11/17/2023 11/16/2024 1 1 Reason for Visit * Outpatient (Routine) - Closed Specialty Diagnoses / Procedures Referred By Contac t Referred To Contact Diagnoses Arthritis Inflammatory (HCC) Procedures DX Ankle Bilateral 3+ Views DX Ankle Left 3+ Views Antolin Mclaughlin M.D. 200 [place] [address] Phone: tel: fax: [facility] Referral ID Status Reason Start Date Expiration Date Visits Re quested Visits Authorized [id number] Closed 11/17/2023 11/16/2024 1 1 Encounter Details Date Type Department Care Team (Latest Contact Info) Description 12/12/2023 10:13 AM CDT - 12/12/2023 11:59 PM CDT Hospital Encounter Department of Radiology, [facility], in [place], [place] [address] [place] [address] Antolin Mclaughlin M.D. [address] [place] [address] Arthritis Inflammatory (HCC) Discharge Disposition: Home or [...] and heating? Not hard at all 09/02/2022 [facility] of Occupat ional Health - Occupational Stress [...] Sex Assigned at Female 01/24/2022 7:37 PM POLITICAL SCIENCE FACULTY MEMBER Legal Sex Female 10:28 AM CDT Gender Identity Female 01/24/2022 7:37 PM POLITICAL SCIENCE FACULTY MEMBER Sexual Orientation Straight 01/24/2022 7: 37 PM POLITICAL SCIENCE FACULTY MEMBER documented as of this encounter Medications at [...] by mouth daily. 90 tablet 3 08/16/2023 MAGNESIUM ORAL Take 1 tablet by mouth [...] tablet Take 1 tablet by mouth daily. documented as of this encounter Plan of Treatment Upcoming Encounters Date Type Department Care Team (Late st Contact Info) Description 02/26/2024 9:30 AM POLITICAL SCIENCE FACULTY MEMBER Lab Department of Laboratory Medicine and Pathology, [place], [place] [address] [place] [phone] Mc Mcknight M.D., Ph.D. [address] [place] [phone] 02/26/2024 11:30 AM POLITICAL SCIENCE FACULTY MEMBER Appointment Department of Radiology, [place], [place] [address] [place] [phone] Mc Mcknight M.D., Ph.D. [address] [place] [phone] 02/26/2024 3:00 PM POLITICAL SCIENCE FACULTY MEMBER Appointment Department of Radiology, [place], [place] [address] [place] [phone] Mc Mcknight M.D., Ph.D. [address] [place] [phone] 02/27/2024 1:40 PM POLITICAL SCIENCE FACULTY MEMBER Office Visit Department of Oncology in [place], [place] [address] [place] [address] Mc Mcknight M.D., Ph.D. [address] [place] [phone] 03/01/2024 9:00 AM POLITICAL SCIENCE FACULTY MEMBER Appointment Department of Radiation Oncology in [place], [place] [address] [place] [phone] Tammie Hooks M.D., Ph.D. [address] [place] [phone] documented as of this encounter Procedures Procedure [...] bone island within theposterior left calcaneus. Antolin J Lissette M.D. IMG DIAGNOSTIC IMAGING PROCEDURES Final Result documented in this encounter Visit Diagnoses Diagnosis Arthritis Inflammatory (HCC) documented in this encounter
--- OUTSIDE RECORDS SUMMARY | 2024-02-12 15:04 | XMS_ITS | Encounter Summary ---
Author Organization [facility] Address [address] [place] [address] Care Team Providers Care Portainer Operator Name Role Phone Unavailable Primary Care [...] often do you attend chur ch or scientology services? Never 01/24/2022 Do you belong to [...] living situation today? I have a [facility] place to live 02/16/2023 Education Answer Date Recorded What is the highest level of school you have completed or the highest degree you have received? Bachelor's degree (e.g., BA, AB, BS) 01/24/2022 Comments No Sex and Gender Information Value Date Recorded Sex Assigned at Female 01/24/2022 7:37 PM DIRECTOR OF EVENT MANAGEMENT Legal Sex Female 10:28 AM CDT Gender Identity Female 01/24/2022 7:37 PM DIRECTOR OF EVENT MANAGEMENT Sexual Orientation Straight 01/24/2022 7: 37 PM DIRECTOR OF EVENT MANAGEMENT documented as of this encounter Plan of Treatment Upcoming Encounters Date Type Department Care Team (Late st Contact Info) Description 02/26/2024 9:30 AM DIRECTOR OF EVENT MANAGEMENT Lab Department of Laboratory Medicine and Pathology, [place], [place] [address] [place] [phone] Mc Mcknight M.D., Ph.D. [address] [place] [phone] 02/26/2024 11:30 AM DIRECTOR OF EVENT MANAGEMENT Appointment Department of Radiology, [place], [place] [address] [place] [phone] Mc Mcknight M.D., Ph.D. [address] [place] [phone] 02/26/2024 3:00 PM DIRECTOR OF EVENT MANAGEMENT Appointment Department of Radiology, [place], [place] [address] [place] [phone] Mc Mcknight M.D., Ph.D. [address] [place] [phone] 02/27/2024 1:40 PM DIRECTOR OF EVENT MANAGEMENT Office Visit Department of Oncology in [place], [place] [address] [place] [phone] Mc Mcknight M.D., Ph.D. [address] [place] [phone] 03/01/2024 9:00 AM DIRECTOR OF EVENT MANAGEMENT Appointment Department of Radiation Oncology in [place], [place] [address] [place] [phone] Tammie Hooks M.D., Ph.D. [address] [place] [phone] documented as of this encounter Procedures Procedure [...]
--- OUTSIDE RECORDS SUMMARY | 2024-02-12 15:05 | XMS_ITS | Encounter Summary ---
Author Organization [facility] Address 200 [place] [address] Care Team Providers Care Commercial Service Technician Name Role Phone Unavailable Primary Care Provider Unavailabl e Reason for Referral * Outpatient (Routine) - Closed Specialty Diagnoses / Procedures Referred By Contac t Referred To Contact Diagnoses Effusion Knee Right Procedures PMR Peripheral injection/USGI (Procedure Only) Antolin Mclaughlin M.D. 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 200 [place] [address] Phone: tel: fax: [facility] Referral ID Status Reason Start Date Expiration Date Visits Re quested Visits Authorized [id number] Closed 11/01/2023 05/02/2025 1 1 Encounter Details Date Type Department Care Team (Latest Contact Info) Description 11/13/2023 10:00 AM CDT Comprehensive Visit Department of Physical Medicine and Rehabilitation in [place], [place] [address] [place] [address] Antolin Mclaughlin M.D. [address] [place] [address] Effusion Knee Right (Primary Dx); Malignant Neoplasm Of Neck Squamous Cell; Secondary Malignant Neoplasm Bone (HCC); Other Residential Current Drug Therapy; Squamous Cell Carcinoma Of [...] week 01/24/2022 How often do you attend [facility] or buddhism services? Never 01/24/2022 Do you [...] Sex Assigned at Female 01/24/2022 7:37 PM GROUP HOME SUPERVISOR Legal Sex Female 10:28 AM CDT Gender Identity Female 01/24/2022 7:37 PM GROUP HOME SUPERVISOR Sexual Orientation Straight 01/24/2022 7: 37 PM GROUP HOME SUPERVISOR documented as of this encounter Consult Notes * Kristan Roldan D.O. - 11/13/2023 10:00 AM CDT SUBJECTIVE REQUESTING PROVIDER Blanche Monzon P.A.-C., M.S. REASON FOR CONSULT Right Knee Swelling and Pain HISTORY OF PRESENT ILLNESS Mrs. Martni Ismael a 78 y.o. female who presents [...] Secondary Malignant Neoplasm Bone (HCC) #3 Other Residential Current Drug Therapy #4 Squamous Cell Carcinoma [...] identified; learning preferences include listening. Signed by: Wassim Drissi, D.O. 11/13/2023 10:19 AM CDT Cosigned by [...] st Contact Info) Description 02/26/2024 9:30 AM GROUP HOME SUPERVISOR Lab Department of Laboratory Medicine and Pathology, [place], [place] [address] [place] [phone] cM Mcknight M.D., Ph.D. [address] [place] [phone] 02/26/2024 11:30 AM GROUP HOME SUPERVISOR Appointment Department of Radiology, [place], [place] [address] [place] [phone] cM Mcknight M.D., Ph.D. [address] [place] [phone] 02/26/2024 3:00 PM GROUP HOME SUPERVISOR Appointment Department of Radiology, [place], [place] [address] [place] [phone] Mc Mcknight M.D., Ph.D. [address] [place] [phone] 02/27/2024 1:40 PM GROUP HOME SUPERVISOR Office Visit Department of Oncology in [place], [place] [address] [place] [phone] Mc Mcknight M.D., Ph.D. [address] [place] [phone] 03/01/2024 9:00 AM GROUP HOME SUPERVISOR Appointment Department of Radiation Oncology in [place], [place] [address] [place] [phone] Tammie Hooks M.D., Ph.D. [address] [place] [phone] documented as of this encounter Results * [...] This test has been modified from the geospatial technician's instructions. Its performance characteristics were determined by [facility] in a manner consistent with CLIA [...] FLUIDS AND ST OOLS ORDERABLES Final Result [facility] [address] [place] [address], [facility] [address] [place] [address] * OK ARTHCS ASP/INJ MJR JT W US (11/14/2023 [...] fellow participated in the procedure, and the natural remedy consultant was present for the entire procedure. [...] degenerative change posterior aspect ofmedial femoral condyle. 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
--- OUTSIDE RECORDS SUMMARY | 2024-02-12 15:05 | XMS_ITS | Encounter Summary ---
Author Organization [facility] Address [address] [place] [address] Care Team Providers Care Signal Operator Linguist Name Role Phone Unavailable Primary Care Provider Unavailabl e Encounter Details Date Type Department Care Team (Latest Contact Info) Description 11/13/2023 11:05 AM CDT Ancillary Procedure Department of Radiology in [place], [place] [address] [place] [address] Antolin Mclaughlin M.D. [address] [place] [address] Effusion Knee Right Social History Tobacco Use [...] and heating? Not hard at all 09/02/2022 [facility] - [facility]ational Stress Questionnaire Answer Date [...] Sex Assigned at Female 01/24/2022 7:37 PM BATCH WEIGHER Legal Sex Female 10:28 AM CDT Gender Identity Female 01/24/2022 7:37 PM BATCH WEIGHER Sexual Orientation Straight 01/24/2022 7: 37 PM BATCH WEIGHER documented as of this encounter Plan of Treatment Upcoming Encounters Date Type Department Care Team (Late st Contact Info) Description 02/26/2024 9:30 AM BATCH WEIGHER Lab Department of Laboratory Medicine and Pathology, [place], [place] [address] [place] [address] Mc Mcknight M.D., Ph.D. [address] [place] [phone] 02/26/2024 11:30 AM BATCH WEIGHER Appointment Department of Radiology, [facility] in [place], [place] [address] [place] [address] Mc Mcknight M.D., Ph.D. [address] [place] [phone] 02/26/2024 3:00 PM BATCH WEIGHER Appointment Department of Radiology, [facility] in [place], [place] [address] [place] [phone] Mc Mcknight M.D., Ph.D. [address] [place] [phone] 02/27/2024 1:40 PM BATCH WEIGHER Office Visit Department of Oncology in [place], [place] [address] [place] [phone] Mc Mcknight M.D., Ph.D. [address] [place] [phone] 03/01/2024 9:00 AM BATCH WEIGHER Appointment Department of Radiation Oncology in [place], [place] [address] [place] [phone] Tammie Hooks M.D., Ph.D. [address] [place] [phone] documented as of this encounter Procedures Procedure [...]
--- OUTSIDE RECORDS SUMMARY | 2024-02-12 15:05 | XMS_ITS | Encounter Summary ---
Author Organization [facility] Address 200 [place] [address] Care Team Providers Care Kickboxing Instructor Name Role Phone Unavailable Primary Care Provider Unavailabl e Reason for Referral * Outpatient (Routine) - Closed Specialty Diagnoses / Procedures Referred By Contac t Referred To Contact Rheumatology Diagnoses Effusion Knee Right Procedures Rheumatology - Diagnosis eConsult Antolin Mclaughlin M.D. [address] [place] [phone] Phone: tel: fax: [facility] Referral ID Status Reason Start Date Expiration Date Visits Re quested Visits Authorized [id number] Closed 11/15/2023 11/14/2024 1 1 Encounter Details Date Type Department Care Team (Late st Contact Info) Description 11/15/2023 Orders Only Department of Physical Medicine and Rehabilitation in [place], [place] [address] [place] [phone] Antolin Mclaughlin M.D. [address] [place] [phone] Effusion Knee Right (Primary Dx) Social History [...] hard at all 09/02/2022 [facility] [place] [facility] of Occupat ional Health - [...] living situation today? I have a [facility] place to live 02/16/2023 Education Answer Date Recorded What is the highest level of school you have completed or the highest degree you have received? Bachelor's degree (e.g., BA, AB, BS) 01/24/2022 Comments No Sex and Gender Information Value Date Recorded Sex Assigned at Female 01/24/2022 7:37 PM MANAGER PHARMACY Legal Sex Female 10:28 AM CDT Gender Identity Female 01/24/2022 7:37 PM MANAGER PHARMACY Sexual Orientation Straight 01/24/2022 7: 37 PM MANAGER PHARMACY documented as of this encounter Plan of Treatment Upcoming Encounters Date Type Department Care Team (Late st Contact Info) Description 02/26/2024 9:30 AM MANAGER PHARMACY Lab Department of Laboratory Medicine and Pathology, [facility] in [place], [place] [address] [place] [phone] Mc Mcknight M.D., Ph.D. [address] [place] [phone] 02/26/2024 11:30 AM MANAGER PHARMACY Appointment Department of Radiology, [facility] in [place], [place] [address] [place] [phone] Mc Mcknight M.D., Ph.D. [address] [place] [phone] 02/26/2024 3:00 PM MANAGER PHARMACY Appointment Department of Radiology, [facility] in [place], [place] [address] [place] [phone] Mc Mcknight M.D., Ph.D. [address] [place] [phone] 02/27/2024 1:40 PM MANAGER PHARMACY Office Visit Department of Oncology in [place], [place] [address] [place] [phone] Mc Mcknight M.D., Ph.D. [address] [place] [phone] 03/01/2024 9:00 AM MANAGER PHARMACY Appointment Department of Radiation Oncology in [place], [place] [address] [place] [phone] Tmamie Hooks M.D., Ph.D. [address] [place] [phone] documented as of this encounter Visit Diagnoses Diagnosis Effusion Knee Right- Primary documented in this encounter
--- OUTSIDE RECORDS SUMMARY | 2024-02-12 15:05 | XMS_ITS | Encounter Summary ---
Author Organization [facility] Address 200 [place] [address] Care Team Providers Care Water Reuse Program Manager Name Role Phone Unavailable Primary Care Provider Unavailabl e Reason for Visit * Outpatient (Routine) - Closed Specialty Diagnoses / Procedures Referred By Ryan t Referred To Contact Rheumatology Diagnoses Effusion Knee Right Procedures Rheumatology - Diagnosis eConsult Antolin Mclaughlin M.D. 200 [place] [address] Phone: tel: fax: [facility] Referral ID Status Reason Start Date Expiration Date Visits Re quested Visits Authorized [id number] Closed 11/15/2023 11/14/2024 1 1 Encounter Details Date Type Department Care Team (Latest Contact Info) Description 11/17/2023 8:00 AM CDT Internal E-Consult Division of Rheumatology in [place], [place] [address] [place] [phone] Monica Dawson M.B.B.S. [address] [place] [phone] Effusion Knee Right Social History Tobacco Use [...] Sex Assigned at Female 01/24/2022 7:37 PM SHOWER MAID Legal Sex Female 10:28 AM CDT Gender Identity Female 01/24/2022 7:37 PM SHOWER MAID Sexual Orientation Straight 01/24/2022 7: 37 PM SHOWER MAID documented as of this encounter Consult Notes * Monica Dawson M.B.BNeyS. - 11/16/2023 8:00 AM CDT SUBJECTIVE Ordering [...] of Present Illness 78 yo female from [facility] Referred by colleagues in PMR Seen earlier [...] Please reach out with questions Monica FIELD Landscape Specialist Rheumatology [facility] documented in this encounter Plan of Treatment Upcoming Encounters Date Type Department Care Team (Late st Contact Info) Description 02/26/2024 9:30 AM SHOWER MAID Lab Department of Laboratory Medicine and Pathology, [place], [place] [address] [place] [phone] Mc Mcknight M.D., Ph.D. [address] [place] [phone] 02/26/2024 11:30 AM SHOWER MAID Appointment Department of Radiology, [place], [place] [address] [place] [phone] Mc Mcknight M.D., Ph.D. [address] [place] [phone] 02/26/2024 3:00 PM SHOWER MAID Appointment Department of Radiology, [place], [place] [address] [place] [phone] Mc Mcknight M.D., Ph.D. [address] [place] [phone] 02/27/2024 1:40 PM SHOWER MAID Office Visit Department of Oncology in [place], [place] [address] [place] [phone] Mc Mcknight M.D., Ph.D. [address] [place] [phone] 03/01/2024 9:00 AM SHOWER MAID Appointment Department of Radiation Oncology in [place], [place] [address] [place] [phone] Tammie Hooks M.D., Ph.D. [address] [place] [phone] documented as of this encounter Visit Diagnoses Diagnosis Effusion Knee Right documented in this encounter
--- OUTSIDE RECORDS SUMMARY | 2024-02-12 15:05 | XMS_ITS | Encounter Summary ---
Author Organization [facility] Address 200 [place] [address] Care Team Providers Care Maintenance Tech Name Role Phone Unavailable Primary Care Provider Unavailabl e Reason for Visit * Outpatient (Routine) - Closed Specialty Diagnoses / Procedures Referred By Ryan cronin Referred To Contact Diagnoses Effusion Knee Right Procedures PMR Peripheral injection/USGI (Procedure Only) Antolin Mclaughlin M.D. 200 [place] [address] Phone: tel: fax: [facility] Referral ID Status Reason Start Date Expiration Date Visits Re quested Visits Authorized [id number] Closed 11/13/2023 11/12/2024 1 1 Encounter Details Date Type Department Care Team (Latest Contact Info) Description 11/14/2023 2:30 PM CDT Procedure visit Department of Physical Medicine and Rehabilitation in [place], [place] 200 [place] [phone] Divine Ayala M.D. [address] [place] [phone] Effusion Knee Right Social History Tobacco [...] hard at all 09/02/2022 [facility] of Occupat ional Health - Occupational Stress [...] your living situation today? I have a [facility] place to live 02/16/2023 Education Answer Date Recorded What is the highest level of school you have completed or the highest degree you have received? Bachelor's degree (e.g., BA, AB, BS) 01/24/2022 Comments No Sex and Gender Information Value Date Recorded Sex Assigned at Female 01/24/2022 7:37 PM TRANSPORTATION LOGISTICS INTERNSHIP Legal Sex Female 10:28 AM CDT Gender Identity Female 01/24/2022 7:37 PM TRANSPORTATION LOGISTICS INTERNSHIP Sexual Orientation Straight 01/24/2022 7: 37 PM TRANSPORTATION LOGISTICS INTERNSHIP documented as of this encounter Procedure Notes [...] fellow participated in the procedure, and the travel consultant was present for the entire procedure. documented in this encounter Plan of Treatment Upcoming Encounters Date Type Department Care Team (Late st Contact Info) Description 02/26/2024 9:30 AM TRANSPORTATION LOGISTICS INTERNSHIP Lab Department of Laboratory Medicine and Pathology, [address] [phone] Mc Mcknight M.D., Ph.D. [address] [place] [phone] 02/26/2024 11:30 AM TRANSPORTATION LOGISTICS INTERNSHIP Appointment Department of Radiology, [facility] in [address] [phone] Mc Mcknight M.D., Ph.D. [address] [place] [phone] 02/26/2024 3:00 PM TRANSPORTATION LOGISTICS INTERNSHIP [facility] [address] [phone] Mc Mcknight M.D., Ph.D. [address] [place] [phone] 02/27/2024 1:40 PM TRANSPORTATION LOGISTICS INTERNSHIP Office Visit Department of Oncology in [address] [phone] Mc Mcknight M.D., Ph.D. [address] [place] [phone] 03/01/2024 9:00 AM TRANSPORTATION LOGISTICS INTERNSHIP Appointment Department of Radiation Oncology in [address] [phone] Tammie Hooks M.D., Ph.D. [address] [place] [phone] documented as of this encounter Procedures Procedure Name Priority Date/Time Associated Diagnosis Comments CRYSTAL ID, BF Routine 11/14/2023 2:50 PM CDT CELL COUNT AND DIFFERENTIAL, BF Routine 11/14/2023 2:50 PM CDT Effusion Knee Right AR ARTHCS ASP/INJ MJR JT W US Routine [...] FLUIDS AND ST OOLS ORDERABLES Final Result [facility] 200 [place] [address], [facility] 200 [place] [address] * Cell Count and Differential, Body Fluid [...] This test has been modified from the plaster machine tender's instructions. Its performance characteristics were determined by [facility] in a manner consistent with CLIA requirements. This test has not been cleared or approved by the U.S. Food and Drug Administration. Neutrophils 52 % 11/14/2023 9:56 PM CDT [facility] Comment: ----REFERENCE VALUE---- Synovial: <25% Peritoneal: <25% Pleural: <25% Pericardial: <25% Lymphocytes 19 Synovial <75% % 11/14/2023 9:56 PM CDT PM Monocytes/Macropha ges 29 Synovial <70% % 11/14/2023 9:56 PM CDT PM Comment See Comment 11/15/2023 9:36 AM CDT PM Comment:No blasts or maligna nt cells seen. Reviewed by: Mago 11/15/2023 9:36 AM CDT [facility] Fluid (Synovial Fluid, Not Otherwise Specified) 11/14/2023 2:50 PM CDT 11/14/2023 5:58 PM CDT us Antolin Mclaughlin M.D. LAB BODY FLUIDS AND ST OOLS ORDERABLES Final Result [facility] [address] [place] [address] * AR ARTHCS ASP/INJ MJR JT W US (11/14/2023 [...] fellow participated in the procedure, and the travel consultant was present for the entire procedure. [...]
--- OUTSIDE RECORDS SUMMARY | 2024-02-12 15:05 | XMS_ITS | Encounter Summary ---
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 [address] [place] [address] Phone: tel: fax: Department of Oncology in [place], [place] 200 [place] [address] Phone: tel: Referral ID Status Reason Start Date Expiration Date Visits Re quested Visits Authorized [id number] Closed 07/28/2023 07/27/2025 99 99 Encounter Details Date Type Department Care Team (Late st Contact Info) Description 11/21/2023 1:00 PM CDT Office Visit Department of Oncology in [place], [place] 200 [place] [phone] Mc Mcknight M.D., Ph.D. 200 [place] [phone] Other Well Logger Current Drug Therapy; Secondary Malignant Neoplasm Bone [...] your living situation today? I have a [facility] place to live 02/16/2023 Education Answer Date Recorded What is the highest level of school you have completed or the highest degree you have received? Bachelor's degree (e.g., BA, AB, BS) 01/24/2022 Comments No Sex and Gender Information Value Date Recorded Sex Assigned at Female 01/24/2022 7:37 PM BARREL SCRAPER Legal Sex Female 10:28 AM CDT Gender Identity Female 01/24/2022 7:37 PM BARREL SCRAPER Sexual Orientation Straight 01/24/2022 7: 37 PM BARREL SCRAPER documented as of this encounter Last Filed Vital Signs Vital Sign Reading Time Taken Comments Blood Pressure 96/61 11/21/2023 12:52 PM CDT Pulse 58 11/21/2023 12:52 PM CDT Temperature 36 C (96.8 F) 11/21/2023 12:52 PM CDT Respiratory Rate 16 11/21/2023 12:5 [...] the vertex of the scalp. Evaluated by patient registration supervisor Dr. Banuelos in [place] and was treated for possible psoriasis. The lesion persisted after 6 weeks. She was then treated with UV phototherapy between September and December of 2021. September 22, 2021---December 17, 2021: Underwent biopsy of the vertex scalp lesion which revealed squamous cell carcinoma. Incisional biopsy of left level 5 lymph node also revealed squamous cell carcinoma. 12/30/2021 Biopsy/Pathology A. Skin, scalp, vertex, excisional biopsy ([id number]; 12/30/2021): Invasive poorly differentiated squamous cell carcinoma, transected at base and lateral edge of the specimen. B. Neck, left, soft tissue, biopsy ([id number]; 01/13/2022): Invasive poorly differentiated squamous cell carcinoma [...] scalp lesion.; Surgeon: Edi Castorena M.D.; Location: [facility] OR REVIEW OF SYSTEMS Pertinent items [...] st Contact Info) Description 02/26/2024 9:30 AM BARREL SCRAPER Lab Department of Laboratory Medicine and Pathology, [facility], in [place], [place] [address] [place] [phone] Mc Mcknight M.D., Ph.D. [address] [place] [phone] 02/26/2024 11:30 AM BARREL SCRAPER Appointment Department of Radiology, [facility] in [place], [place] [address] [place] [phone] Mc Mcknight M.D., Ph.D. [address] [place] [phone] 02/26/2024 3:00 PM BARREL SCRAPER Appointment Department of Radiology, [facility] in [place], [place] [address] [place] [phone] Mc Mcknight M.D., Ph.D. [address] [place] [phone] 02/27/2024 1:40 PM BARREL SCRAPER Office Visit Department of Oncology in [address] [phone] Mc Mcknight M.D., Ph.D. [address] [place] [phone] 03/01/2024 9:00 AM BARREL SCRAPER Appointment Department of Radiation Oncology in [address] [phone] Tammie Hooks M.D., Ph.D. [address] [place] [phone] documented as of this encounter Results * [...] thigh, favored inflammatory although direct visualization isrecommended. us Svetomir N Juan Luis M.D., Ph.D. 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
--- OUTSIDE RECORDS SUMMARY | 2024-02-12 15:05 | XMS_ITS | Encounter Summary ---
Author Organization [facility] Address [address] [place] [address] Care Team Providers Care Catering Administrative Assistant Name Role Phone Unavailable Primary Care Provider Unavailabl e Encounter Details Date Type Department Care Team (Late st Contact Info) Description 11/01/2023 Clinical Communication Department of Oncology in [place], [place] [address] [place] [phone] Blanche Monzon P.A.-C., M.S. [address] [place] [phone] Social History Tobacco Use Types Packs/Day Years [...] 09/02/2022 [facility] of Occupat ionmi Health - Occupational Stress [...] Sex Assigned at Female 01/24/2022 7:37 PM METAL TILE LATHER Legal Sex Female 10:28 AM CDT Gender Identity Female 01/24/2022 7:37 PM METAL TILE LATHER Sexual Orientation Straight 01/24/2022 7: 37 PM METAL TILE LATHER documented as of this encounter Plan of Treatment Upcoming Encounters Date Type Department Care Team (Late st Contact Info) Description 02/26/2024 9:30 AM METAL TILE LATHER Lab Department of Laboratory Medicine and Pathology, [place], [place] [address] [place] [address] Mc Mcknight M.D., Ph.D. 200 [place] [address] 02/26/2024 11:30 AM METAL TILE LATHER Appointment Department of Radiology, [facility] in [place], [place] [address] [place] [address] Mc Mcknight M.D., Ph.D. [address] [place] [phone] 02/26/2024 3:00 PM METAL TILE LATHER Appointment Department of Radiology, [facility] in [place], [place] [address] [place] [phone] Mc Mcknight M.D., Ph.D. [address] [place] [phone] 02/27/2024 1:40 PM METAL TILE LATHER Office Visit Department of Oncology in [place], [place] [address] [place] [phone] Mc Mcknight M.D., Ph.D. [address] [place] [phone] 03/01/2024 9:00 AM METAL TILE LATHER Appointment Department of Radiation Oncology in [place], [place] [address] [place] [phone] Tammie Hooks M.D., Ph.D. [address] [place] [phone] documented as of this encounter Visit Diagnoses Not on filedocumented in this encounter
--- OUTSIDE RECORDS SUMMARY | 2024-02-12 15:05 | XMS_ITS | Encounter Summary ---
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 [address] [place] [phone] Phone: tel: fax: Department of Oncology in [place], [place] [address] [place] [phone] Phone: tel: Referral ID Status Reason Start Date Expiration Date Visits Re quested Visits Authorized [id number] Closed 07/28/2023 07/27/2025 99 99 Encounter Details Date Type Department Care Team (Late st Contact Info) Description 11/21/2023 2:15 PM CDT Infusion Department of Oncology in [place], [place] [address] [place] [phone] Remigio Frey M.D., Ph.D. [address] [place] [phone] Squamous Cell Carcinoma Of Skin Of Scalp And Neck (Primary Dx); Other Jail Current Drug Therapy; Secondary Malignant Neoplasm Bone [...] week 01/24/2022 [facility] you [facility] scient[facility] services? Never 01/24/2022 Do you [...] heating? 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 [address] [place] [phone] 02/26/2024 11:30 AM DEDICATED DRIVER Appointment Department of Radiology, [facility] in [place], [place] [address] [place] [phone] Mc Mcknight M.D., Ph.D. [address] [place] [phone] 02/26/2024 3:00 PM DEDICATED DRIVER [facility] [place] [place] [address] [place] [phone] Mc Mcknight M.D., Ph.D. [address] [place] [phone] 02/27/2024 1:40 PM DEDICATED DRIVER Office Visit Department of Oncology in [place], [place] [address] [place] [phone] Mc Mcknight M.D., Ph.D. [address] [place] [phone] 03/01/2024 9:00 AM DEDICATED DRIVER Appointment Department of Radiation Oncology in [place], [place] [address] [place] [phone] Tammie Hooks M.D., Ph.D. 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
--- OUTSIDE RECORDS SUMMARY | 2024-02-12 15:05 | XMS_ITS | Encounter Summary ---
Author Organization [facility] Address [address] [place] [address] Care Team Providers Care Regional Economist Name Role Phone Unavailable Primary Care Provider Unavailabl e Reason for Referral * Outpatient (Routine) - Closed Specialty Diagnoses / Procedures Referred By Contac t Referred To Contact Diagnoses Arthritis Inflammatory (HCC) Procedures DX Ankle Bilateral 3+ Views DX Ankle Left 3+ Views Antolin Mclaughlin M.D. [address] [place] [address] Phone: tel: fax: [facility] Referral ID Status Reason Start Date Expiration Date Visits Re quested Visits Authorized [id number] Closed 11/17/2023 11/16/2024 1 1 * Outpatient (Routine) - Closed Specialty Diagnoses / Procedures Referred By Contac t Referred To Contact Rheumatology Diagnoses Arthritis Inflammatory (HCC) Antolin Mclaughlin M.D. [address] [place] [address] Phone: tel: fax: [facility] Referral ID Status Reason Start Date Expiration Date V isits Requested Visits Authorized [id number] Closed Specialty Services Required 11/17/2023 05/18/2025 1 1 Encounter Details Date Type Department Care Team (Late st Contact Info) Description 11/17/2023 Orders Only Department of Physical Medicine and Rehabilitation in [place], [place] [address] [place] [address] Antolin Mclaughlin M.D. [address] [place] [address] Arthritis Inflammatory (HCC) (Primary Dx) Social History [...] and heating? Not hard at all 09/02/2022 [facility] Occup[facility] ional [facility] - Occupational [...] Sex Assigned at Female 01/24/2022 7:37 PM TRANSACTION MANAGER Legal Sex Female 10:28 AM CDT Gender Identity Female 01/24/2022 7:37 PM TRANSACTION MANAGER Sexual Orientation Straight 01/24/2022 7: 37 PM TRANSACTION MANAGER documented as of this encounter Plan of Treatment Upcoming Encounters Date Type Department Care Team (Late st Contact Info) Description 02/26/2024 9:30 AM TRANSACTION MANAGER Lab Department of Laboratory Medicine and Pathology, [place], [place] [address] [place] [phone] Mc Mcknight M.D., Ph.D. [address] [place] [phone] 02/26/2024 11:30 AM TRANSACTION MANAGER Appointment Department of Radiology, [facility] in [place], [place] [address] [place] [phone] Mc Mcknight M.D., Ph.D. [address] [place] [phone] 02/26/2024 3:00 PM TRANSACTION MANAGER [facility] [place], [place] [address] [place] [phone] Mc Mcknight M.D., Ph.D. [address] [place] [phone] 02/27/2024 1:40 PM TRANSACTION MANAGER Office Visit Department of Oncology in [place], [place] [address] [place] [phone] Mc Mcknight M.D., Ph.D. [address] [place] [phone] 03/01/2024 9:00 AM TRANSACTION MANAGER Appointment Department of Radiation Oncology in [place], [place] [address] [place] [address] Tammie Hooks M.D., Ph.D. [address] [place] [address] Scheduled Referrals Name Type Priority Associated Diagnoses [...] bone island within theposterior left calcaneus. Antolin [facility]TIZ DIAGNOSTIC IMAGING PROCEDURES Final Result * Uric Acid (11/21/2023 9:59 AM CDT) Uric Acid, S 3.3 2.7 - 6.1 mg/dL 11/21/2023 11:10 AM CDT DTL Blood (Blood, Venous) 11/21/2023 9:59 AM CDT 11/21/2023 10:35 AM CDT us Antolin Mclaughlin M.D. LAB BLOOD ADD-ON Final Result Performing Organization Address [facility] Co de Phone Number [facility] [address] [place] [address], [facility] [address] [place] [address] * Cyclic Citrullinated Peptide Antibodies, IgG (11/21/2023 9:59 AM CDT) Cyclic Citrullinated Peptide Ab, S <15.6 <20.0 (Negative) U 11/21/2023 6:45 PM CDT [facility] Comment: Interpretation: Antibodies to CCP [...] BLOOD ADD-ON Final Result Performing Organization Address [facility] Co de Phone Number [facility] [address] [place] [address] [facility] [address] [place] [address] * Rheumatoid Factor (11/21/2023 9:59 AM CDT) Rheumatoid Factor, S <15 <15 IU/mL 11/21/2023 1:30 PM CDT [facility] Blood (Blood, Venous) 11/21/2023 9:59 AM CDT 11/21/2023 12:57 PM CDT Antolin Mclaughlin M.D. LAB BLOOD ADD-ON Final Result [facility] [address] [place] [address] [facility] [address] [place] [address] * (ABNORMAL) Sedimentation Rate (11/21/2023 9:59 AM CDT) Sedimentation Rate, B 30(H) 3 - 28 mm/h 11/21/2023 11:31 AM CDT DTL Blood (Blood, Venous) 11/21/2023 9:59 AM CDT 11/21/2023 10:20 AM CDT Antolin Mclaughlin M.D. LAB BLOOD ADD-ON Final Result Performing Organization Address City/[facility]/ZIP Co de Phone Number [facility] [address] [place] [address], [facility] [address] [place] [address] * CRP (C-Reactive Protein) (11/21/2023 9:59 AM CDT) C-Reactive Protein (CRP), S <3.0 <5.0 mg/L 11/21/2023 11:10 AM CDT DTL Blood (Blood, Venous) 11/21/2023 9:59 AM CDT 11/21/2023 10:35 AM CDT Antolin Mclaughlin M.D. LAB BLOOD ADD-ON Final Result [facility] [address] [place] [address], [facility] [address] [place] [address] documented in this encounter Visit Diagnoses Diagnosis Arthritis Inflammatory (HCC)- Primary Arthritis Inflammatory (HCC) documented in this encounter
--- OUTSIDE RECORDS SUMMARY | 2024-02-12 15:05 | XMS_ITS | Encounter Summary ---
Author Organization [facility] Address [address] [place] [address] Care Team Providers Care Office Nurse Name Role Phone Unavailable Primary Care Provider Unavailabl e Reason for Referral * Outpatient (Routine) - Authorized Specialty Diagnoses / Procedures Referred By Contac t Referred To Contact Dermatology Karina Galloway M.D. [address] [place] [address] Phone: tel: fax: [facility] Referral ID Status Reason Start Date Expiration Date V isits Requested Visits Authorized [id number] Authorized 11/10/2023 05/11/2025 1 1 * Medication Prior Authorization - Closed Specialty Diagnoses / Procedures Referred By Contac t Referred To Contact Emily Bell M.D. [address] [place] [address] Phone: tel: fax: Referral ID Status Reason Start Date Expiration Date Visits Re quested Visits Authorized [id number] Closed 1 1 Reason for Visit * Outpatient (Routine) - Closed Specialty Diagnoses / Procedures Referred By Ryan cronin Referred To Contact Dermatology Patsy Lentz M.D. [address] [place] [phone] Phone: tel: fax: [facility] Referral ID Status Reason Start Date Expiration Date Visits Re quested Visits Authorized [id number] Closed 04/14/2023 10/13/2024 1 1 Encounter Details Date Type Department Care Team (Late st Contact Info) Description 11/10/2023 8:00 AM CDT Office Visit Department of Dermatology in [place], [place] [address] [place] [phone] Emily Bell M.D. 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 - 11/10/2023 8:00 AM CDT Correspondence to: Emily Bell M.D. Referring provider: Patsy Lentz M.D. This patient was seen and staffed with Dr. Galloway. SUBJECTIVE CHIEF COMPLAINT / REASON FOR VISIT History of NMSC. HISTORY OF PRESENT ILLNESS Ms. Vreonica Guevara is a very pleasant 78 y.o. female who presents today for a skin cancer screening examination. Ms. Veronica Guevara has a history of nonmelanoma skin cancer. [facility] in April 2023 at which time [...] consistent with banal-appearing nevi. -Scattered waxy stuck brown-imnor papules and plaques consistent with seborrheic keratoses. [...] st Contact Info) Description 02/26/2024 9:30 AM BUSINESS OBJECTS Lab Department of Laboratory Medicine and Pathology, [address] [phone] Mc Mcknight M.D., Ph.D. [address] [place] [phone] 02/26/2024 11:30 AM BUSINESS OBJECTS Appointment Department of Radiology, [facility] in [address] [phone] Mc Mcknight M.D., Ph.D. [address] [place] [phone] 02/26/2024 3:00 PM BUSINESS OBJECTS Appointment Department of Radiology, [facility] in [place], [place] [address] [place] [phone] Mc Mcknight M.D., Ph.D. [address] [place] [phone] 02/27/2024 1:40 PM BUSINESS OBJECTS Office Visit Department of Oncology in [address] [phone] Mc Mcknight M.D., Ph.D. [address] [place] [phone] 03/01/2024 9:00 AM BUSINESS OBJECTS Appointment Department of Radiation Oncology in [place], [place] [address] [place] [address] Tammie Hooks M.D., Ph.D. 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
== END 2024-02-12 15:10 | disposition home or self-care (01) ==
PROVIDERS: Emergency Provider Emergency Medicine; PCP Family Medicine
DX: M71.22 Synovial cyst of popliteal space [Baker], left knee (principal)
CPT/HCPCS: 93971; 99282; 99283

== ENCOUNTER 2024-04-04 17:57 | Emergency (ER) | payer MEDICARE, OTHER, SELFPAY ==
[2024-04-04 18:05] VITALS: BP 127/75; PULSE 67; RESP 16; TEMP 37.1; O2SAT 96; BMI 21.1
[2024-04-04 19:30] VITALS: RESP 18; O2SAT 97
--- NOTE | 2024-04-04 19:52 | ED.GENADULT ---
HPI - General Adult General Chief complaint: Unspecified Complaint, Adult Stated complaint: After effects of Immunotherapy-Oncol wants images Time Seen by Provider: 04/04/24 19:24 History of Present Illness HPI narrative: This 78-year-old female was instructed to come in here by a [facility] clinician for imaging. She did not specify what the imaging was intended for this visit. She states that she has been having some brief changes in her vision where there was prism like images and sometimes blotchy images that are transient. 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 She arrives here with normal vital signs and is not displaying any neurologic deficits. Related Data Home Medications ?Medication ?Instructions ?Recorded ?Confirmed nystatin 100,000 unit/gram topical 1 applic topical .2-3X/Day 12/22/21 02/12/24 cream coenzyme Q10 100 mg capsule (Co 100 mg PO QDAY 07/21/22 04/04/24 Q-10) triamcinolone acetonide 0.1 % 1 applic topical BID PRN 04/19/23 04/04/24 topical cream ketoconazole 2 % shampoo 1 applic topical Q14D 10/18/23 04/04/24 ketoconazole 2 % topical cream 1 applic topical 10/18/23 10/25/23 tacrolimus 0.1 % topical ointment 2 - 4 topical BID 04/04/24 Previous Rx's ?Medication ?Instructions ?Recorded cholecalciferol (vitamin D3) 50 50 mcg PO QDAY #90 caps 10/18/23 mcg (2,000 unit) capsule levothyroxine 50 mcg tablet 50 mcg PO QDAY #90 tabs 10/18/23 rosuvastatin 10 mg tablet 10 mg PO QDAY #90 tabs 10/18/23 alendronate 70 mg tablet (Fosamax) 70 mg PO QWEEK #14 tabs 11/22/23 Allergies Allergy/AdvReac Type Severity Reaction Status Date / Time Penicillins Allergy Unknown Verified 04/04/24 18:17 Sulfa (Sulfonamide Allergy Unknown Verified 04/04/24 18:17 Antibiotics) mold and smuts Allergy Unknown weepy eyes Uncoded 10/25/23 15:23 Review of Systems Status of ROS: Reports: 10 or more systems reviewed and unremarkable except as noted in History and below Narrative: Constitutional: No fevers, no weight gain or loss. Eyes: No discharge. Vision changes as described above. HENT: No congestion, no sore throat, no ear pain. Cardiovascular: No chest pain, no palpitations. Respiratory: No shortness of breath, no wheezes, no cough. Gastrointestinal: No abdominal pain, no vomiting, no diarrhea. Genitourinary: No dysuria, no hematuria. Musculoskeletal: Normal range of motion. Skin: No rashes, no pruritis. Neurological: No dizziness, weakness, sensory change, speech change. Endo/Heme/Allergies: No bruising or bleeding. No polydipsia. Pysch: no suicidality, no anxiety, no insomnia. All other systems reviewed and are negative. [facility] Medical History (Updated 04/04/24 @ 21:02 by Patricio Farris MD) Hx of Clostridium difficile infection (12/2022) ?Z86.19 - Personal history of other infectious and parasitic diseases (ICD-10) Pulmonary nodules ?R91.8 - Other nonspecific abnormal finding of lung field (ICD-10) Thyroid nodule ?E04.1 - Nontoxic single thyroid nodule (ICD-10) Tricuspid valve regurgitation (2022) ?I07.1 - Rheumatic tricuspid insufficiency (ICD-10) Skin cancer of scalp (07/2021) ?C44.40 - Unspecified malignant neoplasm of skin of scalp and neck (ICD-10) Lymphadenopathy of head and neck (12/2021) ?R59.1 - Generalized enlarged lymph nodes (ICD-10) Memory problem (~03/2021) ?R41.3 - Other amnesia (ICD-10) Osteoporosis (10/26/20) ?M81.0 - Age-related osteoporosis without current pathological fracture (ICD-10) Nonalcoholic fatty liver disease (2019) ?K76.0 - Fatty (change of) liver, not elsewhere classified (ICD-10) Microscopic colitis (2018) ?K52.839 - Microscopic colitis, unspecified (ICD-10) Lichen planus pigmentosus (2019) ?L43.8 - Other lichen planus (ICD-10) History of vitamin D deficiency ?Z86.39 - Personal history of other endocrine, nutritional and metabolic disease (ICD-10) Hereditary and idiopathic peripheral neuropathy ?G60.9 - Hereditary and idiopathic neuropathy, unspecified (ICD-10) Gastroesophageal reflux disease (2011) ?K21.9 - Gastro-esophageal reflux disease without esophagitis (ICD-10) Dyslipidemia ?E78.5 - Hyperlipidemia, unspecified (ICD-10) Dry eye syndrome ?H04.129 - Dry eye syndrome of unspecified lacrimal gland (ICD-10) Aortic valve regurgitation (2004) ?I35.1 - Nonrheumatic aortic (valve) insufficiency (ICD-10) Surgical History (Updated 10/18/23 @ 08:23 by Stephanie Ly MD) History of SCC (squamous cell carcinoma) of skin (07/2021) ?Z85.828 - Personal history of other malignant neoplasm of skin (ICD-10) History of phacoemulsification of cataract of both eyes with intraocular lens implantation (07/2021) ?Z98.41 - Cataract extraction status, right eye (ICD-10) ?Z98.42 - Cataract extraction status, left eye (ICD-10) ?Z96.1 - Presence of intraocular lens (ICD-10) History of tonsillectomy (1967) ?Z90.89 - Acquired absence of other organs (ICD-10) History of knee surgery (2018) ?Z98.890 - Other specified postprocedural states (ICD-10) History of hysterectomy (2017) ?Z90.710 - Acquired absence of both cervix and uterus (ICD-10) History of dental surgery (2017) ?Z92.89 - Personal history of other medical treatment (ICD-10) History of colonoscopy (01/18/18) ?Z98.890 - Other specified postprocedural states (ICD-10) Family History (Updated 12/21/21 @ 13:04 by Stephanie Ly MD) Paternal Grandmother Heart disease Diabetes Sister Multiple sclerosis Alzheimers disease Mother Alzheimers disease Maternal Grandmother Alzheimers disease Family/Other Lung cancer FH: testicular cancer Social History (Updated 10/18/23 @ 08:21 by Reba Lopez ~ CTA) Narrative: , retired, 3 kids, nonsmoker does not drink alcohol, Exercise 5 days a week walking and physical therapy What is your current living situation?: I presently have a place to live Problems where you live: no known problems In the past 12 months, utilities in danger of being shut off: no In past 12 months, lack of transportation kept you from medical appts, meetings, work, or getting things needed for daily living: no In the past 12 mos, have been you worried that your food would run out before you had money to buy more?: never true In the past 12 mos, the food you bought just didn't last and you didn't have money to buy more?: never true Smoking Status: Former smoker Do you use any of these nicotine containing products: None Second hand tobacco smoke exposure: No How often do you have a drink containing alcohol: never AUDIT-C Alcohol total score: 0 Non-prescribed substance use: denies use How often does anyone, including family, friends and others, physically hurt you: never How often does anyone, including family, friends and others, insult or talk down to you: rarely How often does anyone, including family, friends and others, threaten you with harm: never How often does anyone, including family, friends and others, scream or curse at you: never Health Related Social Needs: Other personal risk factors, not elsewhere classified (Z91.89) Exam Narrative: Exam Narrative: Constitutional: Well-developed, well-nourished, no acute distress. HEENT: Normocephalic, atraumatic. Neck: Normal range of motion. Nontender. Supple. Heart: Regular. No murmurs. Normal rate. Intact distal pulses. Lungs: Clear to auscultation. No chest discomfort. No wheezes, rhonchi, or rales. Abdomen: Normal bowel sounds. Nontender. No rebound tenderness. Genitalia: Deferred. Back: No midline tenderness. Normal range of motion. Extremities: Normal range of motion. No injury. Skin: Intact. No rash. Warm. No erythema or pallor. Neurologic: No altered sensation. No weakness. Alert and oriented. No facial asymmetry. Tongue is midline. [id number] is normal. No pronator drift. Living Advisor strength is equal bilaterally. Able to raise each leg from the bed. Psychiatric: No suicidality. No anxiety or depression. No insomnia. Nursing notes and vitals signs are reviewed. Const: Vital Signs, click to edit/add: Vital Signs - 24 hr 04/04/24 18:05 Temperature 98.7 F Pulse Rate [Right Pulse Oximeter] 67 Respiratory Rate 16 Blood Pressure [Ri ght Upper Arm] 127/75 Pulse Oximetry 96 Oxygen Delivery Me thod Room Air Course Vital Signs Vital signs: Initial Vital Signs Temperature 98.7 F 04/04/24 18:05 Temperature Source Temporal Artery Scan 04/04/24 18:05 Pulse Rate 67 04/04/24 18:05 Respiratory Rate 16 04/04/24 18:05 Blood Pressure 127/75 04/04/24 18:05 Blood Pressure Mean 92 04/04/24 18:05 Blood Pressure Position Sitting 04/04/24 18:05 Pulse Oximetry 96 04/04/24 18:05 Oxygen Delivery Method Room Air 04/04/24 18:05 Vital Signs Temperature 98.7 F 04/04/24 18:05 Pulse Rate 67 04/04/24 18:05 Respiratory Rate 16 04/04/24 18:05 Blood Pressure 127/75 04/04/24 18:05 Pulse Oximetry 96 04/04/24 18:05 Oxygen Delivery Method Room Air 04/04/24 18:05 Temperature 98.7 F 04/04/24 18:05 Pulse Rate 67 04/04/24 18:05 Respiratory Rate 16 04/04/24 18:05 Blood Pressure 127/75 04/04/24 18:05 Pulse Oximetry 96 04/04/24 18:05 Oxygen Delivery Method Room Air 04/04/24 18:05 Medical Decision Making MDM Narrative Medical decision making narrative: This patient comes in reporting neck pain for the past several weeks but no particular injury event bring about. She also has some occasions of visual changes where her vision is blotchy or sometimes he has what looks like a prism temporarily. She called her oncologist in the [place] system who instructed her to come here to get imaging. I did call the oncologist on-call who was able to look at notes from this phone call today. There was no specificity regarding what kind of imaging was preferred. MRI is not currently available after hours so I did order CT imaging of her head and C-spine. These returned with normal results and no acute findings. The patient is reassured with this. As for her visual changes it does appear to be episodes of scintillating scotoma. I advised her to follow-up with her oncologist for ongoing management. Imaging Data CT Ceervical Spine: Radiologist's impression: No acute osseous injuries are identified. CT scan - head: Radiologist's impression: No evidence of acute infarction, intracranial hemorrhage, or mass-effect seen. Discharge Plan Discharge Clinical Impression: Neck pain, Scintillating scotoma Patient Disposition: Home, Self-Care Condition: Stable Additional Instructions: Continue current plans. Follow up with primary physicians as scheduled and needed. Return if worsening. Prescriptions: No Action nystatin 100,000 unit/gram cream 1 applic topical .2-3X/Day coenzyme Q10 [Co Q-10] 100 mg capsule 100 mg PO QDAY triamcinolone acetonide 0.1 % cream 1 applic topical BID PRN ketoconazole 2 % cream 1 applic topical ketoconazole 2 % shampoo 1 applic topical Q14D rosuvastatin 10 mg tablet 10 mg PO QDAY Qty: 90 3RF levothyroxine 50 mcg tablet 50 mcg PO QDAY Qty: 90 3RF cholecalciferol (vitamin D3) 50 mcg (2,000 unit) capsule 50 mcg PO QDAY Qty: 90 1RF tacrolimus 0.1 % ointment 2 - 4 topical BID alendronate [Fosamax] 70 mg tablet 70 mg PO QWEEK Qty: 14 3RF Follow Up/Referrals: Stephanie Ly MD [Primary Care Provider] - Stand Alone Forms: Purple [employer] Info Instructions
[2024-04-04 21:08] VITALS: BP 121/70; PULSE 71; RESP 16; TEMP 37.1; O2SAT 96
== END 2024-04-04 21:09 | disposition home or self-care (01) ==
PROVIDERS: Emergency Provider Emergency Medicine Emergency Medical Services; PCP Family Medicine
DX: H53.123 Transient visual loss, bilateral (principal); M54.2 Cervicalgia
CPT/HCPCS: 70450; 72125; 99283; 99284

== ENCOUNTER 2024-04-22 09:07 | Outpatient (CLI) | payer MEDICARE, OTHER, SELFPAY | END 2024-04-22 09:08 | disposition home or self-care (01) | LOC: NFLDREF 04-24 07:08 | PROVIDERS: PCP Family Medicine; Referring Provider Family Medicine; Visit Provider Family Medicine | DX: E03.9 Hypothyroidism, unspecified (principal); E55.9 Vitamin D deficiency, unspecified; R79.89 Other specified abnormal findings of blood chemistry; M81.0 Age-related osteoporosis without current pathological fracture | CPT/HCPCS: 80053; 82306; 84443 ==

== ENCOUNTER 2024-10-08 10:15 | Outpatient (RCR) | payer MEDICARE, OTHER, SELFPAY ==
--- NOTE | 2024-05-02 18:44 | OT.OPOE ---
OT Outpatient Ortho Eval OT Outpatient Ortho Eval* Start: 04/29/24 11:57 Freq: Status: Active Protocol: Document 05/02/24 15:15 AMB (Rec: 05/02/24 18:39 AMB [id number]) E-signed By Taya Garcia, OTR/L, CLT, [facility] OT OP Ortho Eval Details Complexity Complexity Low Insurance Information Insurance Information Medicare B Insurance Information Comments SOC: 05/02/24 MC due: 07/31/24 Outpatient History/Precautions Current Condition/Medical Diagnosis Referring Provider Dr Ly Medical Diagnoses M79.643 Hand pain G89.29 Other chronic pain Treatment Diagnosis R53.1 Hand weakness Other Conditions PMH (copied from medical chart ): Active Problems (Updated 04/25 @ 08:30 by Stephanie Ly MD) Squamous cell carcinoma of scalp (Chronic ~07/2021) Close follow-up with [facility] On[facility] immunotherapy Wide local excision scalp & bilateral neck dissection . Follows [facility]/ oncology C44.42 - Squamous cell carcinoma of skin of scalp and neck (ICD-10) Bilateral sensorineural hearing loss (Chronic 04/20/23 ) Did see Dr. Fierro H90.3 - Sensorineural hearing loss, bilateral (ICD-10) Elevated AST (SGOT) (Acute) R74.01 - Elevation of levels of liver transaminase levels ( ICD-10) Tricuspid valve regurgitation (Chronic 2022) Echo 2022, mild to moderate tricuspid valve regurgitation, repeat echo in 2 years. 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 Follows [facility]/ oncology Z85.828 - Personal history of other malignant neoplasm of skin (ICD-10) Dry eye syndrome (Chronic) & Amalia'mariah Gonzales Has established with Dr Griffin H04.129 - Dry eye syndrome of unspecified lacrimal gland ( ICD-10) Dyslipidemia (Chronic) E78.5 - Hyperlipidemia, unspecified (ICD-10) Gastroesophageal reflux disease (Chronic 2011) EGD 2011 K21.9 - Gastro-esophageal reflux disease without esophagitis (ICD-10) Hereditary and idiopathic peripheral neuropathy (Chronic ) Diagnosis in [place], not on any medication G60.9 - Hereditary and idiopathic neuropathy, unspecified (ICD-10) Lichen planus pigmentosus ( Acute 2018) Lichen planus pigmentosa inversus. Dr Banuelos 2021 L43.8 - Other lichen planus ( ICD-10) Osteoporosis (Chronic 10/26/20 ) fosamax started 11/2023 M81.0 - Age-related osteoporosis without current pathological fracture (ICD-10) Lymphadenopathy of head and neck (Acute 12/2021) Node+ from SCC of scalp. Radiation Therapy completed through [place]. On active surveillance. R59.1 - Generalized enlarged lymph nodes (ICD-10) Memory problem (Chronic ~2021) Short term memory R41.3 - Other amnesia (ICD-10) Skin cancer of scalp (Chronic 07/2021) squamous cell Spread to neck nodes. Radiation Therapy completed 04/29/22 through [place] . On active surveillance. C44.40 - Unspecified malignant neoplasm of skin of scalp and neck (ICD-10) Medical History (Reviewed 08/28 @ 14:36 by Stephanie Ly MD) Hx of Clostridium difficile infection (12/2022) Z86.19 - Personal history of other infectious and parasitic diseases (ICD-10) Pulmonary nodules R91.8 - Other nonspecific abnormal finding of lung field (ICD-10) Thyroid nodule E04.1 - Nontoxic single thyroid nodule (ICD-10) Tricuspid valve regurgitation (2022) I07.1 - Rheumatic tricuspid insufficiency (ICD-10) Skin cancer of scalp (07/2021) C44.40 - Unspecified malignant neoplasm of skin of scalp and neck (ICD-10) Lymphadenopathy of head and neck (12/2021) R59.1 - Generalized enlarged lymph nodes (ICD-10) Memory problem (~03/2021) R41.3 - Other amnesia (ICD-10) Osteoporosis (10/26/20) M81.0 - Age-related osteoporosis without current pathological fracture (ICD-10) Nonalcoholic fatty liver disease (2019) K76.0 - Fatty (change of) liver, not elsewhere classified (ICD-10) Microscopic colitis (2018) K52.839 - Microscopic colitis, unspecified (ICD-10) Lichen planus pigmentosus ( 2018) L43.8 - Other lichen planus ( ICD-10) History of vitamin D deficiency Z86.39 - Personal history of other endocrine, nutritional and metabolic disease (ICD-10) Hereditary and idiopathic peripheral neuropathy G60.9 - Hereditary and idiopathic neuropathy, unspecified (ICD-10) Gastroesophageal reflux disease (2011) K21.9 - Gastro-esophageal reflux disease without esophagitis (ICD-10) Dyslipidemia E78.5 - Hyperlipidemia, unspecified (ICD-10) Dry eye syndrome H04.129 - Dry eye syndrome of unspecified lacrimal gland ( ICD-10) Aortic valve regurgitation ( 2004) I35.1 - Nonrheumatic aortic ( valve) insufficiency (ICD-10) Surgical History (Reviewed 08/28 @ 14:36 by Stephanie Ly MD) History of SCC (squamous cell carcinoma) of skin (07/2021) Z85.828 - Personal history of other malignant neoplasm of skin (ICD-10) History of phacoemulsification of cataract of both eyes with intraocular lens implantation (07/2021) Z98.41 - Cataract extraction status, right eye (ICD-10) Z98.42 - Cataract extraction status, left eye (ICD-10) Z96.1 - Presence of intraocular lens (ICD-10) History of tonsillectomy (1967 ) Z90.89 - Acquired absence of other organs (ICD-10) History of knee surgery (2018) Z98.890 - Other specified postprocedural states (ICD-10) History of hysterectomy (2016) Z90.710 - Acquired absence of both cervix and uterus (ICD-10 ) History of dental surgery ( 2018) Z92.89 - Personal history of other medical treatment (ICD- 10) History of colonoscopy () Z98.890 - Other specified postprocedural states (ICD-10) Medical/Functional History Medical History Reviewed Yes Prior Level of Function/Mobility Pt has had chronic hand pain for several years, seems to be Social History Employment Status Retired Ortho Subjective Subjective Subjective Pt states she's been having pain in both of her thumbs for years. Pt states it's really been getting worse over the past year or so. Pt is now having increased pain with vacuuming, opening any kind of twist off lid, holding the newspaper or book, lifting and pouring water pitcher, writing with a pen or pencil. Pt states she also has random pain for no reason, especially in her right hand. Pt does have a Comfort Cool splint that she wears on her right hand sometimes during the day and due to having a hx of CTS on her RUE, she wears a wrist cock-up splint at night. Pt states she really likes to do crossword puzzles, jigsaw puzzles, and reading and sometimes if her thumbs are really hurting, she cannot enjoy any of these activities . Pt is also having issues with her knees and her neck. She will be starting PT to address her neck pain and recently had cortisone injections in her right knee. Pt rates her pain in her thumbs at4/10 on average. Pt states her right thumb/hand hurt more than the left, wonders if it is because she is RHD. Pt states the only things that offer partial relief is heat, her Comfort Cool splint, and Voltarin. Goniometric Comments Goniometric Comments Goniometric Comments 05/02/24 Pt demonstrates full AROM in BUE hands but does have pain and tightness at EROM of the RUE thumb palmar and radial abduction. Hand Pinch/Construction Tech Strength Hand Pinch/Construction Tech Strength Hand Pinch/Construction Tech Strength Left Hand,Right Hand Left Hand Construction Tech Strength Position 1 in Elbow 25 Flexion (lbs) Lateral Pinch Strength (lbs) 10 Three Point Pinch (lbs) 9 Right Hand Construction Tech Strength Position 1 in Elbow 18 Flexion (lbs) Lateral Pinch Strength (lbs) 8 Three Point Pinch (lbs) 5 Comments Comments 05/02/24 Pt has discomfort with strength testing, especially pinch strength. OT Objective Data Hand Hand Dominance Right Observations/Posture/Limb Appearance Objective Observations 05/02/24 pt has mild atrophy in BUE first dorsal interossei and thenar eminence, mild swelling along joint line of CMCJs, R>L. Additional Information Objective Additional Information 05/02/24 Pt is very ttp along the CMC joint line BUE, R>L. Upper Extremity Special Tests Degenerative Arthritis Hand Trapeziometacarpal Joint Grind Test Positive Left,Positive Right OT Problems Problems Problems Decreased Strength,Pain, Lifting,Gripping,Pinching Other Problems Writing,Opening Containers, Computer,Fasteners Patient Potential Good Assessment Assessment Assessment Pt is a very pleasant 78yo referred to OT to address BUE chronic hand pain. 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 Pt is currently having difficulty with any activity that requires, gripping, lifting or pinching with either UE, especially her RUE. Pt will benefit from skilled OT intervention to address BUE hand pain, weakness and pt education regarding joint protection techniques, supports, self help strategies for LT management of her chronic arthritis. Occupational Therapy Treatment Plan - OP Potential Rehabilitation Potential Good Set Goals Goals Set with Patient Yes Goals Goals 1. Pt will be independent and compliant with HEP in order to promote strengthening of hands to provide support for arthritic CMC joints as well as to maintain functional AROM of BUE thumbs / hands. 3 weeks 2. Pt will be able to verbalize at least 3 self help techniques that can help decrease risk of strain / deformity of BUE CMC joints. 6 weeks 3. 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 8 weeks. 4. Pt will verbalize a decrease in pain level from a current 4/10 most of the time to no more than a 1/10 occasionally, indicating decreased inflammation and healing. 8 weeks. Treatment Plan Treatment Plan Evaluation,Edema Control, Iontophoresis,Joint Mobilization,Manual Therapy, Splinting,Ultrasound, Therapeutic Exercise, Therapeutic Activities,Self Care/Home Management,Education Expected Frequency 1-2x Week Expected Duration 8-10 Weeks Home Program Home Program Home Program Initiated Home Program Specifics Pt was provided with training in KT for support of CMC joints of BUE. She left clinic with tape in place on BUE as well as written instructions and additional tape for trial at home. Certification Certification Statement I Certify That: Therapy Services Provided, Therapy Plan Established, Therapy Plan Reviewed Certification Information Clinic ID # [id number] Initial Certification Date 05/02/24 Recertification Due Date 07/31/24 Provider Signature Required Yes Provider Signature Shows Agreement With POC & Medical Necessity Physician NPI Number Write NPI# Here Physician Comment/Change Comment or Changes Physician Signature & Date Requested Please Sign/Date Here
--- NOTE | 2024-05-07 09:20 | PT.OPEX ---
PT [place] Outpatient Eval PT [facility] Outpatient Eval Start: 04/22/24 14:46 Freq: Status: Active Protocol: Document 05/07/24 07:10 MLS (Rec: 05/07/24 09:17 MLS [id number]) E-signed By Rosi Estrada DPT Physical Therapy Outpatient Evaluation Insurance Information Recert Due Date 08/04/24 Insurance Name Medicare B,Other; See Comments Insurance Information/Comments [employer] Medical Diagnosis M54.2 Cervicalgia Treating Diagnosis Cervical stretching and strengthening Referring MD Dr. Ly Subjective Subjective Patient is a 78 year old female who presents to physical therapy with signs and symptoms consistent with cervical pain and tightness. She states that it started in March. She states that she woke up and it was sore across the base of her skull and it radiates into shoulders. She states that she had radiation and lymph nodes removed in [id number]. She states that she had 28 lymph nodes taken out on the left and 3 on the right. She states that the pain is equal on both sides and it is shooting pains and aching. She states that she went to the ER a few weeks ago and did a CT scan. 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 She states that she has degenerative disc disease between C%-C6. She states that she has immunotherapy and her oncologist thinks it might be inflammatory arthritis. She states that her last surgery was in January of 2022. Aggravating factors include: sleeping , turning her neck. 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 Patient would like to achieve less pain through physical therapy sessions. Pain Comments Today: 5/10 on a 0-10 pain scale with 10 = extreme pain At its worst: 7/10 At its best: 2/10 Current Work Status Retired Precautions Weight Bearing Status Full Weight Bearing Therapy Limitations/Systems Review Not Limited Objective Other/Pertinent Objective SPINAL ALIGNMENT/POSTURE Forward head and rounded shoulders CERVICAL ROM Flexion: 55 Extension: 15 Right Rotation: 25 Left Rotation: 20 Right side bend: 10 Left Side bend: 10 SHOULDER AROM Grossly tested WNL NECK/SHOULDER MMT: Shoulder shrug: R 4/5 L 4/5 Shoulder flexion: R 4/5 L 4/5 Shoulder abduction: R 4/5 L 4/ 5 Shoulder External Rotation: R 4/5 L 4/5 Shoulder Internal Rotation: R 4/5 L 4/5 Elbow Flexion: R 4/5 L 4/5 Elbow Ext: R 4/5 L 4/5 Headaches: no SPECIAL TEST -Spurlings Test: neg -Bakody Sign: neg -Cervical distraction test: neg Shoulder impingement -Viramontes Raffaele Test: neg -Neer Test: neg -Anthony Test: neg JOINT MOBILITY/PALPATION Tenderness with palpation of bilateral upper trapezius, rhomboids, and scalenes [place]: Access Code: [email or web address] URL: [email or web address] Date: 05/07/2024 Prepared by: Rosi Estrada Exercises - Seated Cervical Sidebending AROM - 1 x daily - 7 x weekly - 3 sets - 10 reps - Seated Cervical Rotation AROM - 1 x daily - 7 x weekly - 3 sets - 10 reps - Seated Cervical Retraction - 1 x daily - 7 x weekly - 3 sets - 10 reps Functional Test Performed & Score 16/50 0-4 = no disability 5-14 = mild disability 15-24 = moderate disability 25-34 = severe disability >34 = complete disability Assessment Assessment/Impression Pt is a 78 year old female who presents with concerns of cervical pain and tightness. Patient also has notable objective findings including limited ROM, tenderness to palpation, and decreased strength which are also likely contributing to the problem. Patient is a good candidate for skilled therapy to target deficits described above. Skilled PT intervention is necessary for use of therapeutic exercise manual therapy, neuromuscular re- education, gait training, and therapeutic activity. Functional impairments include difficulty with: sleeping, driving, reaching, exercising and ADLS. See appropriate sections of PT eval for complete list of goals and POC . D/C plan and criteria is for pt to achieve the goals as listed below or until max rehab potential is met. Pt was agreeable with plan of care and goals established. Primary Functional Limitations reaching driving sleeping exercising ADLS Plan of Care Rehabilitation Potential Good Physical Therapy Goals Within 10-12 weeks: 1.Pt will demonstrate independence in performance of home exercise program with the use of video and/or handouts in order to optimize functional mobility and reduce risk for re-injury. 2.Pt will demonstrate consistent HEP compliance to ensure progress in reaching established goals during course of care. 3.Patient will be able to drive for up to one hour without pain. 4.Patient will report pain levels <2/10 with all activities in order to improve functional mobility at home, work and during functional leisure activities. 5.Patient is able to sleep without waking more than one time due to pain in a 6-8 hour time frame. 6.Patient will be able to reach overhead without pain. 7.Patient will be able to lift household items from the floor to shoulder height to perform ADLs without pain. 8.Pt will exhibit 5 pt improvement in Neck Disability Index measure to demonstrate functional improvement and progress towards goals Coordination/Communication With Referral Source Treatment Plan/Direct Interventions Joint Mobilization,Manual Therapy,Neuromuscular Re-ed, Therapeutic Activities, Therapeutic Exercises Patient Will Be Discharged From Therapy Independently Progressing Evaluation Billing Untimed Code Treatment Minutes 30 Complexity Low Certification Information Provider Signature Required Yes Provider Signature Shows Agreement With POC & Medical Necessity Physician NPI Number Write NPI# Here Physician Comment/Change : Physician Signature & Date Requested Please Sign/Date Here
--- NOTE | 2024-08-12 14:57 | PT.OPDNX ---
[facility] Note Start: 04/22/24 14:46 Freq: Status: Active Protocol: Document 08/12/24 09:10 MLS (Rec: 08/12/24 14:44 MLS [id number]) E-signed By Rosi Estrada DPT PT OP Daily Progress Note Visit Information Note Type Daily Note Visit Number [id number] Insurance Information Recert Due Date 11/09/24 Insurance Name Medicare B,Other; See Comments Insurance [employer] Information/Comments Medical Diagnosis M54.2 Cervicalgia Treating Diagnosis Cervical stretching and strengthening Referring MD Dr. Ly Subjective Subjective Patient is a 78 year old female who presents to physical therapy with signs and symptoms consistent with cervical pain and tightness. She states that she has been having a lot of pain. She states that she hasn't been doing her exercises as much because she has two guests staying with her. She reports that she has not been sleeping in her bed, which has also been irritating. From initial: She states that it started in March. She states that she woke up and it was sore across the base of her skull and it radiates into shoulders. She states that she had radiation and lymph nodes removed in [id number]. She states that she had 28 lymph nodes taken out on the left and 3 on the right. She states that the pain is equal on both sides and it is shooting pains and aching. She states that she went to the ER a few weeks ago and did a CT scan. 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 She states that she has degenerative disc disease between C5-C6. She states that she has immunotherapy and her oncologist thinks it might be inflammatory arthritis. She states that her last surgery was in January of 2022. Aggravating factors include: sleeping , turning her neck. 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 Patient would like to achieve less pain through physical therapy sessions. Pain Comments Today: 2/10 right side 4/10 left side on a 0-10 pain scale with 10 = extreme pain Precautions Weight Bearing Full Weight Bearing Status Home Exercise Home Exercise Access Code: [email or web address] Comments URL: [email or web address] Date: 07/01/2024 Prepared by: Rosi Estrada Exercises - Seated Cervical Sidebending AROM - 1 x daily - 7 x weekly - 3 sets - 10 reps - Seated Cervical Rotation AROM - 1 x daily - 7 x weekly - 3 sets - 10 reps - Seated Cervical Retraction - 1 x daily - 7 x weekly - 3 sets - 10 reps - Gentle Levator Scapulae Stretch - 1 x daily - 7 x weekly - 3 sets - 10 reps - Standing Shoulder Row with Anchored Resistance - 1 x daily - 7 x weekly - 3 sets - 10 reps - Shoulder extension with resistance - Neutral - 1 x daily - 7 x weekly - 3 sets - 10 reps Objective Other/Pertinent SPINAL ALIGNMENT/POSTURE Objective Forward head and rounded shoulders CERVICAL ROM Flexion: 55 Extension: 15 Right Rotation: 25 Left Rotation: 20 Right side bend: 10 Left Side bend: 10 SHOULDER AROM Grossly tested WNL NECK/SHOULDER MMT: Shoulder shrug: R 4/5 L 4/5 Shoulder flexion: R 4/5 L 4/5 Shoulder abduction: R 4/5 L 4/5 Shoulder External Rotation: R 4/5 L 4/5 Shoulder Internal Rotation: R 4/5 L 4/5 Elbow Flexion: R 4/5 L 4/5 Elbow Ext: R 4/5 L 4/5 Headaches: no SPECIAL TEST -Spurlings Test: neg -Bakody Sign: neg -Cervical distraction test: neg Shoulder impingement -Viramontes Raffaele Test: neg -Neer Test: neg -Anthony Test: neg JOINT MOBILITY/PALPATION Tenderness with palpation of bilateral upper trapezius, rhomboids, and scalenes Functional Test 16/50 Performed & Score 0-4 = no disability 5-14 = mild disability 15-24 = moderate disability 25-34 = severe disability >34 = complete disability Patient Instructed Yes in Risks/Benefits Therapeutic Exercise Therapeutic Exercise 15 Minutes (minutes) Therapeutic Exercise TX: : To Restore YTB Functional Status cerv rotation x 10 cerv SB x 10 cerv chin tuck x 5 Scap retraction isometrics x 10 cervical rotation mobs with towel x 5 ea YTB scap retrac x 10 YTB lat pulldown x 10 YTB chin tuck x 10 One arm row - next session trial YTB B shoulder ER - trial Double tennis ball retraction Access Code: [email or web address] URL: [email or web address] Date: 07/01/2024 Prepared by: Rosi Estrada Exercises - Seated Cervical Sidebending AROM - 1 x daily - 7 x weekly - 3 sets - 10 reps - Seated Cervical Rotation AROM - 1 x daily - 7 x weekly - 3 sets - 10 reps - Seated Cervical Retraction - 1 x daily - 7 x weekly - 3 sets - 10 reps - Gentle Levator Scapulae Stretch - 1 x daily - 7 x weekly - 3 sets - 10 reps - Standing Shoulder Row with Anchored Resistance - 1 x daily - 7 x weekly - 3 sets - 10 reps - Shoulder extension with resistance - Neutral - 1 x daily - 7 x weekly - 3 sets - 10 reps Manual Therapy Techniques Manual Therapy 25 Minutes (minutes) Manual Therapy DTM to bilateral suboccipitals, upper trapezius, Techniques rhomboids, scalenes and suboccipitals in supine and prone position, left more than right Cervical distraction Neuromuscular Re-Ed Neuromuscular Neuromuscular manpreet graded muscle activation for Reeducation Comments improved motor control at bilateral suboccipitals (RCPM ), upper trapezius muscle group(s) to improve cervical posture, cervical motor control, cervical mobility dynamics, scapular motor control. Dry Needling Dry Needle Comments Patient consents to dry needling using sterile dry needle technique in prone position to bilateral upper trapezius, suboccipitals (RCPM), in supine B SCM muscle group(s) with Single Pointer XL. Sufficient twitch and homeostasis along with notable tissue softening was obtained. Patient tolerated well with no residual issues; all needles were removed. Post treatment recommendations discussed with patient. Potential risks and benefits of dry needling discussed in detail with patient, including post treatment muscle soreness, risk of infection, risk of bruising and risk of pneumothorax. Self-reported patient precaution(s) include diminished immune system (cancer treatment), recent cancer (currently in remission), history of lymph node removal (B sides of neck); appropriate modifications to plan of care have been implemented to accommodate reported precautions. Patient verbalizes understanding of risks and wishes to proceed with treatment. Verbal and written consent (first visit) obtained. Dry needling was performed at today's physical therapy visit by certified dry needling specialist Debra Anguiano, RAJANN, PT, DPT. Treatment Minutes Timed Code Treatment 40 Minutes Total Treatment Time 40 Billing Units Neuromuscular 2 Reeducation Units Therapeutic Exercise 1 Units Assessment/Impression Assessment/ Pt is a 78 year old female who presents with concerns Impression of cervical pain and tightness. She did hear back regarding a referral to her physical medicine doctor to discuss future trigger point injections and has an appointment on October 10. She is also scheduled for another PET scan on October 14. Side bending bilaterally is very restricted today, possibly due to now keeping up with her exercises the past few weeks. PT has also been delayed secondary to illness. Rotation improved post session today. Skilled PT intervention is necessary for use of therapeutic exercise manual therapy, neuromuscular re-education, gait training, and therapeutic activity. D/C plan and criteria is for pt to achieve the goals as listed below or until max rehab potential is met. Primary Functional reaching Limitations driving sleeping exercising ADLS Plan of Care Physical Therapy Within 10-12 weeks: Goals 1.Pt will demonstrate independence in performance of home exercise program with the use of video and/or handouts in order to optimize functional mobility and reduce risk for re-injury. 2.Pt will demonstrate consistent HEP compliance to ensure progress in reaching established goals during course of care. 3.Patient will be able to drive for up to one hour without pain. 4.Patient will report pain levels <2/10 with all activities in order to improve functional mobility at home, work and during functional leisure activities. 5.Patient is able to sleep without waking more than one time due to pain in a 6-8 hour time frame. 6.Patient will be able to reach overhead without pain. 7.Patient will be able to lift household items from the floor to shoulder height to perform ADLs without pain. 8.Pt will exhibit 5 pt improvement in Neck Disability Index measure to demonstrate functional improvement and progress towards goals Daily Plan of Care Continue per POC Recertification Information Initial 05/04/24 Certification Date Recertification 08/12/24 Start Date Recertification Due 08/04/24 Date Reasons to Continue Veronica continues to progress with her PT to decrease her Skilled Therapy cervical pain. We have recently started using some dry needling techniques, which have proven to be beneficial for her pain and tightness. We have missed several PT sessions secondary to PT being ill and not exposing Veronica to anything. She is progressing with her home exercise program. She also has an appointment with her physical medicine doctor to discuss trigger point injections in October. Rehabilitation Good Potential Continued Plan of exercise Care and dry needling Interventions manual therapy Provider Signature POC & Medical Necessity Shows Agreement With Physician Comment/ Comment or Changes Change Physician NPI Number #
== END 2024-11-01 15:26 | disposition home or self-care (01) ==
PROVIDERS: PCP Family Medicine; Visit Provider Family Medicine
DX: M54.2 Cervicalgia (principal); M79.643 Pain in unspecified hand; G89.29 Other chronic pain; R53.1 Weakness; Z51.89 Encounter for other specified aftercare
CPT/HCPCS: 97035; 97110; 97112; 97140; 97161; 97165; 97535; L3913; X5282

== ENCOUNTER 2024-10-17 10:11 | Outpatient (CLI) | payer MEDICARE, OTHER, SELFPAY | END 2024-10-17 10:12 | disposition home or self-care (01) | LOC: NFLDREF 10-29 01:53 | PROVIDERS: PCP Family Medicine; Referring Provider Family Medicine; Visit Provider Family Medicine | DX: E78.5 Hyperlipidemia, unspecified (principal); E55.9 Vitamin D deficiency, unspecified; E03.9 Hypothyroidism, unspecified; R79.89 Other specified abnormal findings of blood chemistry; M81.0 Age-related osteoporosis without current pathological fracture | CPT/HCPCS: 80053; 80061; 82306; 84443; 86803; 87340 ==

== ENCOUNTER 2024-11-01 12:55 | Outpatient (CLI) | payer MEDICARE, OTHER, SELFPAY | END 2024-11-01 12:56 | disposition home or self-care (01) | LOC: RAD 12:57 | PROVIDERS: PCP Family Medicine; Visit Provider Family Medicine | DX: I07.1 Rheumatic tricuspid insufficiency (principal) | CPT/HCPCS: 93306 ==